=== PATIENT | female | born 1970 | race Caucasian/White ===

== ENCOUNTER 2020-11-26 17:43 | Emergency (ER) | payer MEDICAID, SELFPAY ==
[2020-11-26 18:22] VITALS: BP 155/98; PULSE 88; RESP 19; TEMP 36.7; O2SAT 98; BMI 56.9
--- NOTE | 2020-11-26 19:31 | ED_ITS ---
HPI - General Adult General Chief complaint: General Medical Stated complaint: Multiple complaints Time Seen by Provider: 11/26/20 19:31 Source: patient Mode of arrival: ambulatory Limitations: no limitations History of Present Illness HPI narrative: Patient morbidly obese diabetic complaining of left side of the chest pain arm pain neck pain going on for last few days feels sharp pain also complaining of high blood sugar feel depressed anxiety lot of stress at home comes in with multiple complaints blood sugar on arrival was 118 Related Data Previous Rx's Medication Instructions Recorded tramadol 50 mg PO Q6H PRN #20 tab 11/26/20 Allergies Allergy/AdvReac Type Severity Reaction Status Date / Time canagliflozin [From Invokana] Allergy Rash Verified 11/26/20 18:22 latex Allergy Itching Verified 11/26/20 18:22 Penicillins Allergy Rash Verified 11/26/20 18:22 sitagliptin [From Januvia] Allergy Rash Verified 11/26/20 18:22 Review of Systems Review of Systems: Constitutional : No Weight loss, No Fever, No Chills ENT/Mouth : No sore throat, No Rhinorrhea Eyes: No Eye Pain, No Swelling Cardiovascular : + Chest Pain, no palpitations Respiratory : No Cough, No Sputum, no shortness of breath Gastrointestinal : no Nausea, No Vomiting, No Diarrhea, No abdominal Pain, no black stools Genitourinary : No Dysuria, No Urinary Frequency Musculoskeletal : No joint pain, No Myalgias, No Joint Swelling Skin : No Skin Lesions, No rash Neuro : No Weakness, No Numbness, No Dizziness, No Headache Psych : No Anxiety/Panic, No Depression Heme/Lymph: No Bruising, No Lymphadenopathy Endocrine : No Polyuria, No Polydipsia All other systems reviewed and are negative [facility] Social History Social History Advance Directives: No Advance Directives Information Provided: Yes Patient : No Physical Exam Vital Signs: Vital Signs: Last Vital Signs Temp 98.0 F 11/26/20 18:22 Pulse 88 11/26/20 18:22 Resp 19 11/26/20 18:22 BP 155/98 H 11/26/20 18:22 Pulse Ox 98 11/26/20 18:22 Body Mass Index 56.9 Appearance: Alert. Oriented X3. No acute distress. Obese Eyes: PERRLA, No Nystagmus ENT: Pharynx normal. Oral Mucosa moist Neck: Normal inspection. Neck supple. CVS: Normal heart rate and rhythm. Pulses normal. Left anterior chest wall tenderness Respiratory: No respiratory distress. Equal air entry bilateral, no wheezing/rales/rhonchi Abdomen: Soft and nontender. Bowel sounds are present, no mass palpable, no CVA tenderness Skin: Skin warm and dry. Normal skin color. Normal skin turgor. Extremities: No lower extremity edema. No calf tenderness Neuro: Oriented X 3. No motor deficit. No sensory deficit.No cerebellar signs , cranial nerves II-XII intact Medical Decision Making MDM Narrative Medical decision making narrative: Patient with multiple complaints with depression anxiety sleep apnea not using CPAP came with multiple complaints with normal troponin and normal EKG no acute ischemic changes will discharge patient home on tramadol advised to continue her anxiety medication Lab Data Lab results reviewed: Yes I reviewed the patient's lab results. Result diagrams: 11/26/20 19:52 11/26/20 19:52 Labs: Lab Results 11/26/20 11/26/20 11/26/20 Range/Units 19:34 19:52 19:52 WBC 9.3 (4.8-10.8) X10*3/uL RBC 4.05 L (4.20-5.50) X10*6/uL Hgb 11.3 L (12.0-16.0) g/dl Hct 36.4 L (37-47) % MCV 89.9 (80-98) fL MCH 27.9 (27.0-33.0) pg MCHC 31.0 (31.0-35.0) g/dl RDW 15.9 (11.0-16.0) % Plt Count 244 (160-400) X10*3/uL MPV 10.8 (9.4-12.3) fL Immature Gran % (Auto) 0.2 (0.0-0.4) % Neut % (Auto) 64.5 (45-73) % Lymph % (Auto) 25.9 (20-40) % [place] % (Auto) 7.0 (2-11) % Eos % (Auto) 1.8 (0-4) % Baso % (Auto) 0.6 (0-2) % Lymph # (Auto) 2.4 (1.2-4.9) X10*3/uL [place] # (Auto) 0.7 (0.1-1.2) X10*3/uL Eos # (Auto) 0.2 (0.0-0.4) X10*3/uL Baso # (Auto) 0.1 (0.0-0.2) X10*3/uL Abs Immat Gran (auto) 0.02 (0.00-0.03) X10*3/uL Absolute Neuts (auto) 6.0 (2.0-8.3) X10*3/uL Absolute Nucleated RBC 0.000 (0.0-0.012) X10*3/uL Nucleated RBC % (auto) 0.0 (0.0-0.2) /100WBC Sodium 141 (135-145) mmol/L Potassium 4.4 (3.3-5.1) mmol/L Chloride 108 (96-108) mmol/L Carbon Dioxide 25 (22-29) mmol/L Anion Gap 12 (12-20) BUN 19 H (9-16) mg/dL Creatinine 1.26 (0.5-1.4) mg/dL Estim Creat Clear Calc 82.0 Estimated GFR 45 POC Glucose 118 H (60-115) mg/dL Random Glucose 136 H (60-115) mg/dL Calcium 8.8 (8.4-10.2) mg/dL Troponin I High Sens (<3.5-17.0) ng/L 11/26/20 Range/Units 19:52 WBC (4.8-10.8) X10*3/uL RBC (4.20-5.50) X10*6/uL Hgb (12.0-16.0) g/dl Hct (37-47) % MCV (80-98) fL MCH (27.0-33.0) pg MCHC (31.0-35.0) g/dl RDW (11.0-16.0) % Plt Count (160-400) X10*3/uL MPV (9.4-12.3) fL Immature Gran % (Auto) (0.0-0.4) % Neut % (Auto) (45-73) % Lymph % (Auto) (20-40) % [place] % (Auto) (2-11) % Eos % (Auto) (0-4) % Baso % (Auto) (0-2) % Lymph # (Auto) (1.2-4.9) X10*3/uL [place] # (Auto) (0.1-1.2) X10*3/uL Eos # (Auto) (0.0-0.4) X10*3/uL Baso # (Auto) (0.0-0.2) X10*3/uL Abs Immat Gran (auto) (0.00-0.03) X10*3/uL Absolute Neuts (auto) (2.0-8.3) X10*3/uL Absolute Nucleated RBC (0.0-0.012) X10*3/uL Nucleated RBC % (auto) (0.0-0.2) /100WBC Sodium (135-145) mmol/L Potassium (3.3-5.1) mmol/L Chloride (96-108) mmol/L Carbon Dioxide (22-29) mmol/L Anion Gap (12-20) BUN (9-16) mg/dL Creatinine (0.5-1.4) mg/dL Estim Creat Clear Calc Estimated GFR POC Glucose (60-115) mg/dL Random Glucose (60-115) mg/dL Calcium (8.4-10.2) mg/dL Troponin I High Sens < 3.5 (<3.5-17.0) ng/L ECG Data Attestation: I personally reviewed and interpreted this ECG as follows: Interpretation: Normal sinus rhythm heart rate 71 beats per minute normal intervals normal axis no acute ST ST T wave changes no acute ischemia Discharge Plan Discharge Clinical Impression: Musculoskeletal chest pain, Anxiety Patient Disposition: Home, Self-Care Instructions: Musculoskeletal Pain (ED), Anxiety (ED) Additional Instructions: Follow-up with your PCP take your anxiety medication Pain medication as prescribed Follow-up with lung specialist for sleep apnea Prescriptions: New tramadol 50 mg tablet 50 mg PO Q6H PRN (Reason: pain) Qty: 20 RF: 0 Referrals: Frederick Romero MD [Physician] - 2 weeks
[2020-11-26 19:38] LABS: Glucose, Whole Blood 118 mg/dL (60-115)
--- NOTE | 2020-11-26 19:38 | ECG_ITS ---
Test Reason : LEG PAIN Blood Pressure : / mmHG Vent. Rate : 071 BPM Atrial Rate : 071 BPM P-R Int : 158 ms QRS Dur : 086 ms QT Int : 418 ms P-R-T Axes : 044 010 020 degrees QTc Int : 454 ms Normal sinus rhythm Normal ECG When compared with ECG of 08-JAN-2003 09:28, Nonspecific T wave abnormality no longer evident in Lateral leads Referred By: Timbo Brown Electronically Signed By:Jamal Victoria
[2020-11-26 19:58] LABS: Basophils Absolute Auto 0.1 X10*3/uL (0.0-0.2); Basophils Percent Auto 0.6 % (0-2); Eosinophils Absolute Auto 0.2 X10*3/uL (0.0-0.4); Eosinophils Percent Auto 1.8 % (0-4); Hematocrit 36.4 % (37-47); Hemoglobin 11.3 g/dl (12.0-16.0); Imm Gran Abs Auto 0.02 X10*3/uL (0.00-0.03); Imm Gran Pct Auto 0.2 % (0.0-0.4); Lymphocytes Absolute Auto 2.4 X10*3/uL (1.2-4.9); Lymphocytes Percent Auto 25.9 % (20-40); MANUAL DIFF FLAG NO; Mean Corpuscular Hemoglobin 27.9 pg (27.0-33.0); Mean Corpuscular Volume 89.9 fL (80-98); Mean Platelet Volume 10.8 fL (9.4-12.3); Monocytes Absolute Auto 0.7 X10*3/uL (0.1-1.2); Neutrophils Percent Auto 64.5 % (45-73); Platelet Count 244 X10*3/uL (160-400); Red Blood Count 4.05 X10*6/uL (4.20-5.50); Red Cell Distribution Width 15.9 % (11.0-16.0); White Blood Count 9.3 X10*3/uL (4.8-10.8)
[2020-11-26 20:24] LABS: Anion Gap 12 (12-20); Blood Urea Nitrogen 19 mg/dL (9-16); Calcium 8.8 mg/dL (8.4-10.2); Carbon Dioxide 25 mmol/L (22-29); Chloride 108 mmol/L (96-108); Estimated Glomerular Filt Rate 45; Glucose Random 136 mg/dL (60-115); Potassium 4.4 mmol/L (3.3-5.1); Sodium 141 mmol/L (135-145)
[2020-11-26 20:31] LABS: Troponin-I High Sensitivity < 3.5 ng/L (<3.5-17.0)
[2020-11-26] MEDS: traMADoL HCL 50 MG TABLET PO (20:50)
[2020-11-27 07:54] LABS: Estimated Average Glucose 260 mg/dL; Hemoglobin A1c % 10.7 %
== END 2020-11-26 21:00 | disposition home or self-care (01) ==
PROVIDERS: Emergency Provider Internal Medicine; PCP Nurse Practitioner Family
DX: R07.9 Chest pain, unspecified (principal); F41.9 Anxiety disorder, unspecified; E11.9 Type 2 diabetes mellitus without complications; F32.9 Major depressive disorder, single episode, unspecified; E66.01 Morbid (severe) obesity due to excess calories
CPT/HCPCS: 36415; 80048; 82947; 83036; 84484; 85025; 93005; 99283

== ENCOUNTER 2021-08-13 15:05 | Inpatient (IN) | payer MEDICAID, SELFPAY ==
--- NOTE | ~2021-08-13 | FL_ITS ---
EXAMINATION: XR FLUOROSCOPY WITH IMAGES CLINICAL INFORMATION: Stent. COMPARISON: Previous CT of the abdomen and pelvis 08/13/2021. TECHNIQUE: Fluoroscopy performed by Dr. Mihai Reed. Fluoroscopy time: 1.8 minutes DAP: 0.8 mGycm2 Images: 1 FINDINGS: Single image demonstrates the proximal end of a right internal ureteral stent. FL/FL guidance in OR IMPRESSION: Fluoroscopy guidance for right stent placement.
--- NOTE | ~2021-08-13 | CT_ITS ---
EXAMINATION: CT ABDOMEN AND PELVIS WITH CONTRAST CLINICAL INFORMATION: Right upper quadrant pain. COMPARISON: CT abdomen/pelvis dated from 09/03/2006. TECHNIQUE: Multidetector volumetric images were obtained from the superior aspect of the liver through the pubic symphysis following administration 90 mL of Omnipaque 350 intravenous contrast. Sagittal and coronal reformatted images were obtained on the technologist's workstation. Oral contrast: No This CT examination was performed using dose optimization techniques as appropriate, variously including the following: *Automated exposure control *Adjustment of mA and/or kV according to patient size (this includes techniques or standardized protocols for targeted exams where dose is matched to indication/reason for exam; i.e. extremities or head) *Use of iterative reconstruction technique DLP: 1368 mGy-cm FINDINGS: LUNG BASES: No focal consolidation or pleural effusion. Subsegmental atelectases. LIVER, GALLBLADDER, AND BILIARY TREE: The liver is enlarged measuring 22 cm craniocaudally with otherwise normal shape and attenuation. No discrete focal abnormalities. There is new severe dilatation of the common bile duct which measures up to 2.2 cm in maximum diameter. No discrete choledocholithiasis is identified. There is also new moderate intrahepatic biliary ductal dilatation. The gallbladder is hydropic with small stones layering dependently but no evidence of gallbladder wall thickening or pericholecystic inflammatory changes. PANCREAS: Atrophic. The main pancreatic duct is nondilated. No surrounding inflammatory changes. SPLEEN: Unremarkable. ADRENAL GLANDS: Unremarkable. KIDNEYS AND URETERS: There is new severe right hydroureteronephrosis with air-fluid levels and gas in the right pelvicalyceal system. The nephrogram of the right kidney is slightly heterogeneous. There is a 3.4 cm water density cyst in the upper pole of the right kidney. The left kidney is normal in attenuation without discrete focal abnormalities nor hydroureteronephrosis. There is bilateral perinephric fat stranding. BLADDER: There is a focus of air in the anterior aspect of the urinary bladder. No significant perivesical fat stranding. GASTROINTESTINAL TRACT: The stomach and the small bowel are nondilated. Normal appendix. No pericolic inflammatory changes or evidence of bowel obstruction. ABDOMINAL WALL: Anterior abdominal rectus muscle diastases. No significant hernia. LYMPH NODES: Enlarged peripancreatic and retroperitoneal lymph nodes are nonspecific and likely reactive. VASCULAR: Atherosclerotic disease. The abdominal aorta is normal in diameter. PELVIC VISCERA: There is a 2.5 x 1.9 cm partially calcified lesion in the left adnexa (3:77). OSSEOUS STRUCTURES: No acute or aggressive appearing osseous abnormalities. Thoracolumbar spondylosis. 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 There is also mild heterogeneity of the right renal parenchyma, bilateral perinephric fat stranding and air in the urinary bladder. Findings are concerning for an acute gas-forming bacterial infection. New severe dilatation of the common bile duct and moderate dilatation of the intrahepatic bile ducts. No definite choledocholithiasis. This could potentially be reactive in the setting of adjacent severe renal infection. However, correlation with an MR of the abdomen/MRCP is recommended to ensure the absence of obstructive lesions or stones. Nonspecific calcified lesion in the left adnexa. Further characterization could be obtained with an MR of the pelvis with and without intravenous contrast. This critical result was discussed with Chino FLORES at 08/13/2021 7:16 PM and it was ascertained that the content and urgency of the report was understood at the time of direct communication.
--- NOTE | ~2021-08-13 | XR_ITS ---
EXAMINATION: CHEST 2 VIEWS CLINICAL INFORMATION: upper abd pain/back pain . COMPARISON: 08/24/2008. TECHNIQUE: AP frontal and lateral views of the chest obtained FINDINGS: The lungs are mildly hypoexpanded. No focal infiltrate, effusion, edema, or pneumothorax. Cardiac and mediastinal silhouettes are within normal limits for technique. No acute bony abnormality seen XR/XR chest 2V IMPRESSION: Mildly hypoexpanded but no evidence of acute disease
--- NOTE | ~2021-08-13 | NM_ITS ---
EXAMINATION: HIDA SCAN WITHOUT ENSURE. CLINICAL INFORMATION: Elevated LFTs, dilated CBD is CT scan. Rule out biliary obstruction. COMPARISON: CT abdomen and pelvis 08/13/2021 TECHNIQUE: Following intravenous administration of 5 mCi of 99m Tc mebrofenin imaging was obtained up in the right upper quadrant abdominal 2 hours. FINDINGS: There is normal hepatic uptake without any focal defect. CBD is visualized by 27 minutes. The gallbladder is visualized by 57 minutes and persist after 2 hours. No oral ensure was administered due to significantly reduced activity in the gallbladder. NM/NM hepatobiliary wo pharm IMPRESSION: Patency cystic duct. Patent CBD. Normal hepatic uptake without any focal defects.
[2021-08-13 15:12] VITALS: BP 152/62; PULSE 60; O2SAT 98
[2021-08-13 15:39] VITALS: BP 188/89; PULSE 67; RESP 19; TEMP 36.6; O2SAT 99; BMI 50.1
--- NOTE | 2021-08-13 15:44 | ECG_ITS ---
Test Reason : ABD PAIN Blood Pressure : / mmHG Vent. Rate : 058 BPM Atrial Rate : 058 BPM P-R Int : 156 ms QRS Dur : 096 ms QT Int : 466 ms P-R-T Axes : 022 -08 005 degrees QTc Int : 457 ms Sinus bradycardia Moderate voltage criteria for LVH, may be normal variant ( R in aVL , [place] product ) Borderline ECG When compared with ECG of 26-NOV-2020 20:29, No significant change was found Referred By: Generic ED Physician Electronically Signed By:CHU DIXON MD
[2021-08-13 16:03] LABS: MANUAL DIFF FLAG NO
[2021-08-13 16:16] LABS: Basophils Absolute Auto 0.1 X10*3/uL (0.0-0.2); Basophils Percent Auto 0.2 % (0-2); Hematocrit 35.7 % (37.0-47.0); Hemoglobin 11.5 g/dl (12.0-16.0); Imm Gran Abs Auto 0.17 X10*3/uL (0.00-0.03); Imm Gran Pct Auto 0.6 % (0.0-0.4); Lymphocytes Absolute Auto 0.5 X10*3/uL (1.2-4.9); Lymphocytes Percent Auto 1.7 % (20-40); Mean Corpuscular HGB Conc 32.2 g/dl (31.0-35.0); Mean Corpuscular Volume 89.9 fL (80.0-98.0); Mean Platelet Volume 11.5 fL (9.4-12.3); Monocytes Absolute Auto 1.4 X10*3/uL (0.1-1.2); Monocytes Percent Auto 5.2 % (2-11); Neutrophils Absolute Auto 25.5 x10*3/uL (2.0-8.3); Neutrophils Percent Auto 92.3 % (45-73); Platelet Count 236 X10*3/uL (160-400); Red Blood Count 3.97 X10*6/uL (4.20-5.50); Red Cell Distribution Width 14.8 % (11.0-16.0); SCAN SMEAR FLAG 1; White Blood Count 27.6 X10*3/uL (4.8-10.8)
[2021-08-13 16:29] LABS: Alanine Aminotransferase 73 U/L (0-31); Alkaline Phosphatase 929 U/L (39-117); Anion Gap 15 (12-20); Aspartate Amino Transferase 95 U/L (5-31); Blood Urea Nitrogen 17 mg/dL (9-16); Calcium 8.9 mg/dL (8.4-10.2); Carbon Dioxide 24 mmol/L (22-29); Chloride 98 mmol/L (96-108); Creatinine Clr Calc Pharmacy 91.5; Estimated Glomerular Filt Rate 57; Glucose Random 337 mg/dL (60-115); Lipase 257 U/L (8-78); Potassium 3.8 mmol/L (3.3-5.1); Sodium 133 mmol/L (135-145); Total Protein 8.2 g/dL (6.5-8.0)
[2021-08-13 16:34] LABS: Troponin-I High Sensitivity < 3.5 ng/L (<3.5-17.0)
--- NOTE | 2021-08-13 18:10 | ED_ITS ---
HPI - General Adult General Chief complaint: General Medical Stated complaint: ABD PAIN Time Seen by Provider: 08/13/21 17:58 Source: patient Mode of arrival: ambulatory Limitations: no limitations History of Present Illness HPI narrative: 51-year-old female female with past medical history of diabetes, obesity, and gallstones presents to ED for right upper quadrant pain for the past 2 days with nausea and vomiting. Patient states pain came upon her without eating any fatty foods or greasy food as per patient. Patient was diagnosed with gallstones in March by that time blood work was normal so she states no surgery is indicated at that time. He denies any chest pain, flank pain, or shortness of breath. Related Data Home Medications Medication Instructions Recorded Confirmed albuterol sulfate 90 mcg/actuation 2 puff PO Q4H PRN 08/13/21 08/13/21 aerosol inhaler (ProAir HFA) aspirin 81 mg tablet,delayed 1 tab PO DAILY 08/13/21 08/13/21 release atorvastatin 80 mg tablet 1 tab PO BEDTIME 08/13/21 08/13/21 buprenorphine 8 mg-naloxone 2 mg 1 strip SUBLINGUAL TID 08/13/21 08/13/21 sublingual film (Suboxone) clonazepam 0.5 mg tablet 1.5 tab PO DAILY PRN 08/13/21 08/13/21 fluoxetine 20 mg capsule 3 cap PO QAM 08/13/21 08/13/21 gabapentin 600 mg tablet 1 tab PO TID 08/13/21 08/13/21 ibuprofen 800 mg tablet 1 tab PO TID PRN 08/13/21 08/13/21 insulin glargine 100 unit/mL (3 54 unit SUBCUT BID 08/13/21 08/13/21 mL) subcutaneous pen (Lantus Solostar U-100 Insulin) insulin lispro 100 unit/mL 15 unit SUBCUT DAILY@1200 08/13/21 08/13/21 subcutaneous pen (Humalog KwikPen (U-100) Insulin) insulin lispro 100 unit/mL 20 unit SUBCUT DAILY@0900,1700 08/13/21 08/13/21 subcutaneous pen (Humalog KwikPen (U-100) Insulin) levothyroxine 200 mcg tablet 1 tab PO DAILY 08/13/21 08/13/21 lisinopril 20 1 tab PO DAILY 08/13/21 08/13/21 mg-hydrochlorothiazide 25 mg tablet loratadine 10 mg tablet 1 tab PO DAILY 08/13/21 08/13/21 omeprazole 20 mg capsule,delayed 1 cap PO BID 08/13/21 08/13/21 release trazodone 100 mg tablet 1 - 3 tab PO BEDTIME PRN 08/13/21 08/13/21 Allergies Allergy/AdvReac Type Severity Reaction Status Date / Time canagliflozin [From Invokana] Allergy Rash Verified 11/26/20 18:22 latex Allergy Itching Verified 11/26/20 18:22 Penicillins Allergy Rash Verified 11/26/20 18:22 sitagliptin [From Januvia] Allergy Rash Verified 11/26/20 18:22 Review of Systems Review of Systems: RUQ pain with nausea and emesis Yes all other systems are reviewed and are negative [facility] Past Medical History Medical History (Updated 08/14/21 @ 01:31 by SANDRA Chung) Diabetes type I High cholesterol HTN (hypertension) Kidney stones Social History Social History Alcohol intake: former Patient Tobacco Use Status: Current everyday Tobacco user Smoked in Last 30 Days: Yes Use of substances other than those prescribed or required for medical reasons: No Advance Directives: No Advance Directives Information Provided: No Physical Exam ED Vital Signs: Vital Signs - 24 hr 08/13/21 15:39 08/13/21 19:14 08/13/21 20:00 Temperature 98 F 97.6 F 97.8 F Pulse Rate 67 69 54 Respiratory Rate 19 18 18 Blood Pressure 188/89 H 182/101 H 169/74 H Pulse Oximetry 99 98 93 08/13/21 21:31 Temperature Pulse Rate 58 Respiratory Rate 16 Blood Pressure 171/90 H Pulse Oximetry 94 BMI result Body Mass Index 50.1 Const General: cooperative, healthy appearing, well developed, alert, awake, Physically active and acute distress Orientation/consciousness: patient oriented x3 Eyes General: appearance normal, both eyes and all related structures Neck Neck: Yes normal visual inspection, Yes full ROM, Yes no lymphadenopathy, Yes no meningeal signs, Yes trachea midline, Yes supple, No anterior neck swelling and No tender Chest Chest palpation & inspection: normal inspection of the chest Resp Effort & Inspection: normal respiratory effort and able to speak in complete sentences Cardio Jugular venous distension: no JVD Heart sounds: S1 normal heart sound present and S2 normal heart sound present GI Inspection: Yes normal to inspection and No abdominal wall ecchymosis Palpation (GI): Soft to palpation, not firm, Tenderness to palpation present (GI) in the epigastrum and in the RUQ, no guarding and not rigid General: No CVA tenderness and Yes no CVA tenderness Back/Spine/Pelvis Back: no CVA tenderness, No CVA tenderness and No back tenderness Skin General skin exam: no rashes or lesions noted and elasticity normal Neuro General: patient oriented x3, gait normal, no meningeal signs and CN's II-XI intact bilaterally Cranial nerves: Yes CN's II-XII intact bilaterally Extrem General: Yes normal to inspection and Yes full ROM Psych Appearance: grossly normal, well kempt and not disheveled Course Course Course Narrative: Labs ordered. Ceftriaxone and metronidazole ordered Reevaluation(s) Reevaluation #1: White count 24524. Elevated LFT. Severe tenderness and vomiting. Will order Toradol, antibiotics, abdominal CT scan to rule out cholecystitis. Patient is on Suboxone so not prefer not to take any narcotics. Time: 18:29 Reevaluation #2: CT scan shows gas in kidney and bladder indicated kidney bacterial infection. CT scan shows CBD dilation and intrahepatic duct dilation with distended gallbladder but no cholecystitis. Case was discussed with Dr. Reed of Urology and states patient presently should get IV antibiotics and [place] and if patient becomes septic then patient will need a stent. Discussed with Dr. Ralph of Gastroenterology in terms of common bile duct dilation and she recommends patient be admitted for MRCP. Patient vital signs are stable. Patient is not septic Medical Decision Making MDM Narrative Medical decision making narrative: Common bowel duct dilation. UTI. Pyelonephritis Lab Data Result diagrams: 08/13/21 15:50 08/13/21 15:50 Labs: Lab Results 08/13/21 08/13/21 08/13/21 Range/Units 15:50 15:50 15:50 WBC 27.6 H (4.8-10.8) X10*3/uL RBC 3.97 L (4.20-5.50) X10*6/uL Hgb 11.5 L (12.0-16.0) g/dl Hct 35.7 L (37.0-47.0) % MCV 89.9 (80.0-98.0) fL MCH 29.0 (27.0-33.0) pg MCHC 32.2 (31.0-35.0) g/dl RDW 14.8 (11.0-16.0) % Plt Count 236 (160-400) X10*3/uL MPV 11.5 (9.4-12.3) fL Immature Gran % (Auto) 0.6 H (0.0-0.4) % Neut % (Auto) 92.3 H (45-73) % Lymph % (Auto) 1.7 L (20-40) % [place] % (Auto) 5.2 (2-11) % Eos % (Auto) 0.0 (0-4) % Baso % (Auto) 0.2 (0-2) % Lymph # (Auto) 0.5 L (1.2-4.9) X10*3/uL [place] # (Auto) 1.4 H (0.1-1.2) X10*3/uL Eos # (Auto) 0.0 (0.0-0.4) X10*3/uL Baso # (Auto) 0.1 (0.0-0.2) X10*3/uL Abs Immat Gran (auto) 0.17 H (0.00-0.03) X10*3/uL Absolute Neuts (auto) 25.5 H (2.0-8.3) x10*3/uL Absolute Nucleated RBC 0.000 (0.0-0.012) X10*3/uL Nucleated RBC % (auto) 0.0 (0.0-0.2) /100WBC Sodium 133 L (135-145) mmol/L Potassium 3.8 (3.3-5.1) mmol/L Chloride 98 (96-108) mmol/L Carbon Dioxide 24 (22-29) mmol/L Anion Gap 15 (12-20) BUN 17 H (9-16) mg/dL Creatinine 1.03 (0.5-1.4) mg/dL Estim Creat Clear Calc 91.5 Estimated GFR 57 Random Glucose 337 H (60-115) mg/dL Lactic Acid (0.5-2.0) mmol/L Calcium 8.9 (8.4-10.2) mg/dL Total Bilirubin 4.0 H (0.0-1.0) mg/dL Direct Bilirubin 3.0 H (0.0-0.5) mg/dL AST 95 H (5-31) U/L ALT 73 H (0-31) U/L Alkaline Phosphatase 929 H (39-117) U/L Troponin I High Sens < 3.5 (<3.5-17.0) ng/L Total Protein 8.2 H (6.5-8.0) g/dL Albumin 3.0 L (3.5-5.0) g/dL Lipase 257 H (8-78) U/L Beta HCG, Quant < 2 mIU/mL Urine Color Urine Appearance Urine pH (5.0-8.0) Ur Specific [place] (1.005-1.025) Urine Protein (NEG-TRACE) MG/DL Urine Glucose (UA) (NEG) MG/DL Urine Ketones (NEG) MG/DL Urine Blood (NEG) Urine Nitrite (NEG) Ur Leukocyte Esterase (NEG) Urine RBC (0) /HPF Urine WBC (0-4) /HPF Urine WBC Clumps Ur Squamous Epith Cells /LPF Urine Bacteria /LPF Urine Mucus /LPF COVID-19 ([facility]) (Negative) COVID-19 Clin Com 08/13/21 08/13/21 08/13/21 Range/Units 18:19 18:19 21:34 WBC (4.8-10.8) X10*3/uL RBC (4.20-5.50) X10*6/uL Hgb (12.0-16.0) g/dl Hct (37.0-47.0) % MCV (80.0-98.0) fL MCH (27.0-33.0) pg MCHC (31.0-35.0) g/dl RDW (11.0-16.0) % Plt Count (160-400) X10*3/uL MPV (9.4-12.3) fL Immature Gran % (Auto) (0.0-0.4) % Neut % (Auto) (45-73) % Lymph % (Auto) (20-40) % [place] % (Auto) (2-11) % Eos % (Auto) (0-4) % Baso % (Auto) (0-2) % Lymph # (Auto) (1.2-4.9) X10*3/uL [place] # (Auto) (0.1-1.2) X10*3/uL Eos # (Auto) (0.0-0.4) X10*3/uL Baso # (Auto) (0.0-0.2) X10*3/uL Abs Immat Gran (auto) (0.00-0.03) X10*3/uL Absolute Neuts (auto) (2.0-8.3) x10*3/uL Absolute Nucleated RBC (0.0-0.012) X10*3/uL Nucleated RBC % (auto) (0.0-0.2) /100WBC Sodium (135-145) mmol/L Potassium (3.3-5.1) mmol/L Chloride (96-108) mmol/L Carbon Dioxide (22-29) mmol/L Anion Gap (12-20) BUN (9-16) mg/dL Creatinine (0.5-1.4) mg/dL Estim Creat Clear Calc Estimated GFR Random Glucose (60-115) mg/dL Lactic Acid 1.3 (0.5-2.0) mmol/L Calcium (8.4-10.2) mg/dL Total Bilirubin (0.0-1.0) mg/dL Direct Bilirubin (0.0-0.5) mg/dL AST (5-31) U/L ALT (0-31) U/L Alkaline Phosphatase (39-117) U/L Troponin I High Sens (<3.5-17.0) ng/L Total Protein (6.5-8.0) g/dL Albumin (3.5-5.0) g/dL Lipase (8-78) U/L Beta HCG, Quant mIU/mL Urine Color DK YELLOW Urine Appearance HAZY Urine pH 7.0 (5.0-8.0) Ur Specific [place] 1.020 (1.005-1.025) Urine Protein 3+ H (NEG-TRACE) MG/DL Urine Glucose (UA) 250 H (NEG) MG/DL Urine Ketones NEG (NEG) MG/DL Urine Blood 3+ H (NEG) Urine Nitrite NEG (NEG) Ur Leukocyte Esterase TRACE H (NEG) Urine RBC 30-49 H (0) /HPF Urine WBC 50-75 H (0-4) /HPF Urine WBC Clumps NOTED Ur Squamous Epith Cells NONE /LPF Urine Bacteria 3+ /LPF Urine Mucus TRACE /LPF COVID-19 ([facility]) Negative (Negative) COVID-19 Clin Com See Note Discharge Plan Discharge Clinical Impression: Pyelonephritis, Common bile duct dilatation Patient Disposition: Admitted As Inpatient
[2021-08-13] MEDS: 0.9 % Sodium Chloride 1,000 ML 999 ML IV (18:22)
--- NOTE | 2021-08-13 18:34 | PC.NURSE ---
iv inserted, 1st set of bc drawn, vl obtained, pt to radiology, will obtain rest of blood when she returns
[2021-08-13 18:40] LABS: Lactic Acid 1.3 mmol/L (0.5-2.0)
[2021-08-13 18:43] LABS: COVID-19 Test Negative (Negative)
[2021-08-13] MEDS: iohexoL 350 MG/ML 100 ML INFUS..BTL IV (18:43)
[2021-08-13 18:53] LABS: HCG Quantitative < 2 mIU/mL
--- NOTE | 2021-08-13 19:08 | PHA.MEDREC ---
Pharmacy Consult ? Medication Reconciliation Pharmacy has completed the medication reconciliation.
--- NOTE | 2021-08-13 19:11 | PC.NURSE ---
pt dificult stick, attempting to get second set of blood cultures
[2021-08-13 19:14] VITALS: BP 182/101; PULSE 69; RESP 18; TEMP 36.4; O2SAT 98
--- NOTE | 2021-08-13 19:21 | PC.NURSE ---
phlebotomy called to obtain second set of bc
[2021-08-13] MEDS: Ketorolac Tromethamine 30 MG/ML VIAL IVPUSH (19:23)
[2021-08-13] MEDS: ondansetron HCL 4 MG/2 ML VIAL IVPUSH (19:24)
[2021-08-13] MEDS: cefTRIAXone sodium 2 GM in 0.9 % Sodium Chloride 50 ML IV (19:51)
--- NOTE | 2021-08-13 19:54 | PC.NURSE ---
second set of bc obtained, sent to lab, first iv antibiotics hung, pt ivf running slowly, will continue to monitor.l
[2021-08-13 20:00] VITALS: BP 169/74; PULSE 54; RESP 18; TEMP 36.6; O2SAT 93
[2021-08-13] MEDS: metroNIDAZOLE/NS 500 MG/100 ML PIGGYBACK 100 MG IV (20:48)
--- NOTE | 2021-08-13 20:52 | PC.NURSE ---
pt sleeping, woke to verbal stimulus, pt c/o 8/10 pain, vitals stable, second antibiotic running per order, will insert parsons as ordered
--- NOTE | 2021-08-13 20:55 | PC.NURSE ---
spoke diana Gtz (son) to update him on the plan for pt - discharge to [facility], son confirmed increased evening confusions as baseline for pt.
--- NOTE | 2021-08-13 21:30 | PC.NURSE ---
parsons catheter placed, pt tolerated placement well. urine sample collected and sent to the lab.
[2021-08-13 21:31] VITALS: BP 171/90; PULSE 58; RESP 16; O2SAT 94
[2021-08-13 21:43] LABS: Appearance Urine HAZY; Color Urine DK YELLOW; Glucose Urine UA 250 MG/DL (NEG); Leukocyte Esterase Urine TRACE (NEG); Nitrite Urine NEG (NEG); UACC Culture Trigger YES; Urine Blood 3+ (NEG); Urine Ketones NEG (NEG); Urine Protein 3+ MG/DL (NEG-TRACE)
--- NOTE | 2021-08-13 21:51 | PM.IMHP ---
History of Present Illness Date of Service: 08/13/21 Chief Complaint: abd pain this is 51-year-old female with past medical history of diabetes, hyperlipidemia, hypertension, history of kidney stones, as well as obesity presents to the hospital with complaints of abdominal pain for the past 2 days. Patient reports the abdominal pain is epigastric, radiating to the right upper quadrant, constant, severe 10/10, relieved with pain medication, associated with nausea and chills. Patient denies any previous episode. She poor reports burning sensation when she eats any type of food. She is also complaining of burning on urination as well as frequency for the past 2 days. She denies any fever or chills but has flank pain bilaterally. She has no chest pain, no palpitations, no shortness of breath, no headache or change in vision, no lower extremity edema. No diarrhea or constipation. On arrival to the ED patient was found to have elevated blood pressure of 188/89 otherwise Vitals unremarkable labs are significant for WBC count of 27.6, hemoglobin of 11.5, hematocrit 35.7 which is around her baseline, BUN of 17, bilirubin of 4, direct 3, AST of 95, ALT of 73, alk-phos of 929, lipase of 257, UA positive for nitrites, leukocyte Estrace, WBC. 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 Mild heterogeneous CT of right renal parenchyma, bilateral perinephric fat stranding and air in the urinary bladder. This is concerning for an acute gas-forming bacterial infection. She also has new severe dilatation of the common bile duct and moderate dilatation of the intrahepatic bile duct. No definite choledocholithiasis. patient and started on IV antibiotics, urology and GI both consulted she will be admitted for further management Review of Systems Review of Systems: Yes all other systems are reviewed and are negative [facility] Medical History (Updated 08/14/21 @ 06:44 by Xiomy Angulo MD) Diabetes type I High cholesterol HTN (hypertension) Kidney stones Family History (Updated 08/14/21 @ 06:41 by Xiomy Angulo MD) Mother Coronary artery disease Diabetes Surgical History (Updated 08/14/21 @ 06:41 by Xiomy Angulo MD) No pertinent past surgical history Social History Alcohol intake: former Patient Tobacco Use Status: Current everyday Tobacco user Smoked in Last 30 Days: Yes Use of substances other than those prescribed or required for medical reasons: No Advance Directives: No Advance Directives Information Provided: No Meds Allergies Allergy/AdvReac Type Severity Reaction Status Date / Time canagliflozin [From Invokana] Allergy Rash Verified 11/26/20 18:22 latex Allergy Itching Verified 11/26/20 18:22 Penicillins Allergy Rash Verified 11/26/20 18:22 sitagliptin [From Januvia] Allergy Rash Verified 11/26/20 18:22 Active Medications: Current Medications Acetaminophen (Acetaminophen 325 Mg Tablet) 650 mg PO Q6H PRN PRN Reason: Pain, Mild (Pain Scale 1-3) Metronidazole (Flagyl) 500 mg in 100 mls @ 100 mls/hr IV Q8H [place]LL Sodium Chloride (Ns) 1,000 mls @ 100 mls/hr IVCONT .Q10H [place] Cefepime HCl 1 gm/ Sodium (Chloride) 50 mls @ 100 mls/hr IV Q8H [place] Morphine Sulfate (Morphine Sulfate 4 Mg/Ml Cartridge) 4 mg IVPUSH Q4H PRN; Protocol PRN Reason: Pain, Severe (Pain Scale 7-10) Ondansetron HCl (Ondansetron Hcl 4 Mg/2 Ml Vial) 4 mg IVPUSH Q8H PRN PRN Reason: Nausea and Vomiting Pharmacy Consult (Consult Rx Perform Med Rec) 1 each MISCELLANE ONCE PRN PRN Reason: Consult order Home Medications Medication Instructions Recorded Confirmed Last Taken Type albuterol sulfate 90 mcg/actuation 2 puff PO Q4H PRN 08/13/21 08/13/21 08/12/21 History aerosol inhaler (ProAir HFA) aspirin 81 mg tablet,delayed 1 tab PO DAILY 08/13/21 08/13/21 08/12/21 History release atorvastatin 80 mg tablet 1 tab PO BEDTIME 08/13/21 08/13/21 08/12/21 History buprenorphine 8 mg-naloxone 2 mg 1 strip SUBLINGUAL TID 08/13/21 08/13/21 08/13/21 History sublingual film (Suboxone) clonazepam 0.5 mg tablet 1.5 tab PO DAILY PRN 08/13/21 08/13/21 08/12/21 History fluoxetine 20 mg capsule 3 cap PO QAM 08/13/21 08/13/21 08/12/21 History gabapentin 600 mg tablet 1 tab PO TID 08/13/21 08/13/21 08/12/21 History ibuprofen 800 mg tablet 1 tab PO TID PRN 08/13/21 08/13/21 08/12/21 History insulin glargine 100 unit/mL (3 54 unit SUBCUT BID 08/13/21 08/13/21 08/12/21 History mL) subcutaneous pen (Lantus Solostar U-100 Insulin) insulin lispro 100 unit/mL 15 unit SUBCUT DAILY@1200 08/13/21 08/13/21 08/12/21 History subcutaneous pen (Humalog KwikPen (U-100) Insulin) insulin lispro 100 unit/mL 20 unit SUBCUT DAILY@0900,1700 08/13/21 08/13/21 08/12/21 History subcutaneous pen (Humalog KwikPen (U-100) Insulin) levothyroxine 200 mcg tablet 1 tab PO DAILY 08/13/21 08/13/21 08/12/21 History lisinopril 20 1 tab PO DAILY 08/13/21 08/13/21 08/12/21 History mg-hydrochlorothiazide 25 mg tablet loratadine 10 mg tablet 1 tab PO DAILY 08/13/21 08/13/21 Unknown History omeprazole 20 mg capsule,delayed 1 cap PO BID 08/13/21 08/13/21 08/12/21 History release trazodone 100 mg tablet 1 - 3 tab PO BEDTIME PRN 08/13/21 08/13/21 08/12/21 History Physical Exam Vital Signs and Narrative: Vital Signs: Last Vital Signs Temp 97.8 F 08/13/21 20:00 Pulse 58 08/13/21 21:31 Resp 16 08/13/21 21:31 BP 171/90 H 08/13/21 21:31 Pulse Ox 94 08/13/21 21:31 BMI result Body Mass Index 50.1 Const: Other: obese patient, ill appearing General: cooperative Orientation/consciousness: patient oriented x3 Eyes: General: appearance normal, both eyes and all related structures Pupils: Equal, round and reactive pupils present Resp: Effort & Inspection: normal respiratory effort Auscultation: clear to auscultation bilaterally Cardio: Rate: regular rate Rhythm: regular rhythm GI: Other: tenderness and there epigastric and right upper quadrant , there is guarding but no rebound Palpation (GI): Soft to palpation Auscultation: normal bowel sounds : Other: bilateral CVA tenderness Skin: General skin exam: no rashes or lesions noted Neuro: General: patient oriented x3 Cranial nerves: Yes Equal, round and reactive pupils present Cognition (Neuro): normal cognition Extrem: General: Yes normal to inspection and Yes no pedal edema Results Labs CBC and Chem 7: 08/13/21 15:50 08/13/21 15:50 Labs: Laboratory Results - last 24 hr 08/13/21 08/13/21 08/13/21 15:50 15:50 18:19 MCV 89.9 MCH 29.0 MCHC 32.2 RDW 14.8 Plt Count 236 MPV 11.5 Immature Gran % (Auto) 0.6 H Neut % (Auto) 92.3 H Lymph % (Auto) 1.7 L [place] % (Auto) 5.2 Eos % (Auto) 0.0 Baso % (Auto) 0.2 Lymph # (Auto) 0.5 L [place] # (Auto) 1.4 H Eos # (Auto) 0.0 Baso # (Auto) 0.1 Abs Immat Gran (auto) 0.17 H Absolute Neuts (auto) 25.5 H Absolute Nucleated RBC 0.000 Nucleated RBC % (auto) 0.0 Anion Gap 15 Estim Creat Clear Calc 91.5 Estimated GFR 57 Random Glucose 337 H Lactic Acid 1.3 Calcium 8.9 Total Bilirubin 4.0 H Direct Bilirubin 3.0 H AST 95 H ALT 73 H Alkaline Phosphatase 929 H Total Protein 8.2 H Albumin 3.0 L Lipase 257 H Beta HCG, Quant < 2 Urine Color Urine Appearance Urine pH Ur Specific [place] Urine Protein Urine Glucose (UA) Urine Ketones Urine Blood Urine Nitrite Ur Leukocyte Esterase COVID-19 ([facility]) COVID-19 Clin Com 08/13/21 08/13/21 18:19 21:34 MCV MCH MCHC RDW Plt Count MPV Immature Gran % (Auto) Neut % (Auto) Lymph % (Auto) [place] % (Auto) Eos % (Auto) Baso % (Auto) Lymph # (Auto) [place] # (Auto) Eos # (Auto) Baso # (Auto) Abs Immat Gran (auto) Absolute Neuts (auto) Absolute Nucleated RBC Nucleated RBC % (auto) Anion Gap Estim Creat Clear Calc Estimated GFR Random Glucose Lactic Acid Calcium Total Bilirubin Direct Bilirubin AST ALT Alkaline Phosphatase Total Protein Albumin Lipase Beta HCG, Quant Urine Color DK YELLOW Urine Appearance HAZY Urine pH 7.0 Ur Specific [place] 1.020 Urine Protein 3+ H Urine Glucose (UA) 250 H Urine Ketones NEG Urine Blood 3+ H Urine Nitrite NEG Ur Leukocyte Esterase TRACE H COVID-19 ([facility]) Negative COVID-19 Clin Com See Note Imaging Radiologist's Impressions: Impressions Chest X-Ray 08/13/21 16:24 IMPRESSION: Mildly hypoexpanded but no evidence of acute disease Abdomen/Pelvis CT 08/13/21 18:45 IMPRESSION: 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 There is also mild heterogeneity of the right renal parenchyma, bilateral perinephric fat stranding and air in the urinary bladder. Findings are concerning for an acute gas-forming bacterial infection. New severe dilatation of the common bile duct and moderate dilatation of the intrahepatic bile ducts. No definite choledocholithiasis. This could potentially be reactive in the setting of adjacent severe renal infection. However, correlation with an MR of the abdomen/MRCP is recommended to ensure the absence of obstructive lesions or stones. Nonspecific calcified lesion in the left adnexa. Further characterization could be obtained with an MR of the pelvis with and without intravenous contrast. This critical result was discussed with Chino FLORES at 08/13/2021 7:16 PM and it was ascertained that the content and urgency of the report was understood at the time of direct communication. Assessment and Plan (1) Pyelonephritis: Status: Acute (2) Choledocholithiasis: Status: Acute (3) Hydroureteronephrosis: Status: Acute (4) Common bile duct dilatation: Status: Acute Plan 51-year-old female with past medical history of diabetes as well as hypertension presents to the hospital with complaints of severe abdominal pain found to have cholecystitis as well as pyelonephritis # abdominal pain - likely secondary to choledocholithiasis / possible cholangitis - afebrile, but has elevated bilirubin, significantly dilated common bile as well as severe abdominal pain - treat with IV antibiotics - GI consult for MRCP in the morning # pyelonephritis - has severe pyelonephritis as evidence on CT of the abdomen - no evidence of obstructing kidney stones - will treat with IV antibiotics - urology is consulted - if patient is symptoms do not improve, urology plans for possible stent placement - will keep patient NPO # hydroureteronephrosis - secondary to above - IV fluids - urology consult # diabetes - continue home insulin continue home insulin -diabetic diet -will add low-dose sliding scale insulin # hypertension - stable - continue home medication DVT prophylaxis: SCDs in the setting of possible intervention as well as MRCP given patient's need for IV antibiotics for treatment of pyelonephritis as well as need for MRCP patient will be admitted to inpatient Quality Stroke Does the patient have a stroke diagnosis?: No VTE Prior VTE?: No VTE Risk Level:: Medical - moderate - high VTE Device Contraindication: N/A - Device Ordered VTE Drug Contraindication: Treatment Not Indicated
[2021-08-13 21:53] LABS: RBC Urine 30-49 /HPF (0); WBC Urine 50-75 /HPF (0-4)
[2021-08-13 21:54] LABS: Bacteria Urine 3+ /LPF; Mucus Urine TRACE /LPF; WBC Clumps Urine NOTED
[2021-08-13] MEDS: 0.9 % Sodium Chloride 1,000 ML 100 ML IVCONT (21:59)
[2021-08-13] MEDS: cefEPime HCl 1 GM in 0.9 % Sodium Chloride 50 ML IV (22:42)
--- NOTE | 2021-08-13 22:43 | PC.NURSE ---
pt medicated per provider order.
[2021-08-13 23:01] VITALS: BP 173/95; PULSE 64; RESP 18; RESP 20
[2021-08-13] MEDS: Morphine Sulfate 4 MG/ML CARTRIDGE IVPUSH (23:01)
--- NOTE | 2021-08-13 23:56 | PC.NURSE ---
OVERFLOW UNABLE TO TAKE REPORT AT THIS TIME. PT AWAITING FOR TRANSFER TO FLOOR.
[2021-08-14] MEDS: metroNIDAZOLE/NS 500 MG/100 ML PIGGYBACK 100 MG IV ×2 (04:11→13:59)
[2021-08-14 05:18] VITALS: BP 153/75; PULSE 75; RESP 18; TEMP 35.8; O2SAT 94
[2021-08-14] MEDS: ondansetron HCL 4 MG/2 ML VIAL IVPUSH (05:31)
[2021-08-14] MEDS: cefEPime HCl 1 GM in 0.9 % Sodium Chloride 50 ML IV (05:55)
[2021-08-14 07:02] LABS: Basophils Percent Auto 0.1 % (0-2); Hematocrit 33.8 % (37.0-47.0); Hemoglobin 10.9 g/dl (12.0-16.0); Imm Gran Abs Auto 0.19 X10*3/uL (0.00-0.03); Imm Gran Pct Auto 0.8 % (0.0-0.4); Lymphocytes Absolute Auto 0.7 X10*3/uL (1.2-4.9); Lymphocytes Percent Auto 2.9 % (20-40); MANUAL DIFF FLAG SCAN; Mean Corpuscular HGB Conc 32.2 g/dl (31.0-35.0); Mean Corpuscular Hemoglobin 28.6 pg (27.0-33.0); Mean Corpuscular Volume 88.7 fL (80.0-98.0); Mean Platelet Volume 11.5 fL (9.4-12.3); Monocytes Absolute Auto 1.3 X10*3/uL (0.1-1.2); Monocytes Percent Auto 5.2 % (2-11); Neutrophils Absolute Auto 22.5 x10*3/uL (2.0-8.3); Platelet Count 219 X10*3/uL (160-400); Red Blood Count 3.81 X10*6/uL (4.20-5.50); Red Cell Distribution Width 14.6 % (11.0-16.0); SCAN SMEAR FLAG 1; White Blood Count 24.7 X10*3/uL (4.8-10.8)
[2021-08-14 07:16] LABS: Anion Gap 13 (12-20); Blood Urea Nitrogen 20 mg/dL (9-16); Calcium 8.2 mg/dL (8.4-10.2); Carbon Dioxide 22 mmol/L (22-29); Chloride 101 mmol/L (96-108); Creatinine Clr Calc Pharmacy 94.4; Estimated Glomerular Filt Rate 59; Glucose Random 247 mg/dL (60-115); Potassium 3.4 mmol/L (3.3-5.1); Sodium 133 mmol/L (135-145)
[2021-08-14 08:04] LABS: SLIDE REVIEW VERIFIED
--- NOTE | 2021-08-14 08:44 | P.CNGI_ITS ---
History of Present Illness Data of Consult Service Date: 08/14/21 Requesting physician: Xiomy Angulo Primary Care Provider: SUGEY Esteban HPI Reason for consult: Elevated LFTs, biliary dilation 51 YF with DM, hyperlipidemia, htn, obesity, history of kidney stones came to [facility] ED on 08/13/21 with 2 day hx of abdominal pain.? Patient reports the abdominal pain is epigastric, radiating to the right upper quadrant, constant, severe 10/10, relieved with pain medication, associated with nausea and chills.? Patient denies any previous episode.? She poor reports burning sensation when she eats any type of food.? She is also complaining of burning on urination as well as frequency for the past 2 days.? She denied any fever or chills and complained of bilateral flank pain.? Pt denied chest pain, palpitations, shortness of breath, headache or change in vision, lower extremity edema, diarrhea or constipation. ? On arrival to the ED patient was found to have? elevated blood pressure of 188/89 otherwise Vitals unremarkable ?labs showed WBC count of 27.6, hemoglobin of 11.5, hematocrit 35.7 (around her baseline), BUN of 17,? bilirubin of 4, direct 3, AST of 95, ALT of 73, alk-phos of 929, lipase of 257. UA positive for nitrites, leukocyte Estrace, WBC.? ?Patient was started on IV antibiotics and admitted for further management 03/2021 pt was seen at [facility] ED with abdominal pain and diagnosed with non-obstructing kidney stones 3 weeks later she passed a stone. Patient continued to have intermittent abdominal pain. Pain has been worse for the past 3 days when she noted 10 x 10 stabbing abdominal pain which became worse with breathing and movement. She complains of nausea, vomiting with inability to eat anything except soup and crackers. Patient denies fever and felt hot yesterday after I will at [facility]. She has noted increased frequency with burning and dark urine containing some blood. Patient denies past history of liver or gallbladder problems. Patient has chronic heartburn (takes Omeprazole) and chronic constipation (on no medications) Pt denies dysphagia, recent change in bowel habits, diarrhea, black stools or rectal bleeding. Patient denies major cardiac or pulmonary problems. She has a hx of sleep apnea. Denies being on chronic anticoagulation. Patient admits to smoking 5 cigarettes daily x 40 yrs (since age 10) She drank heavily (beer and hard liquor) since age 17 and quit 20 years ago when she became Patient lives with her fiance and has 4 children. She is on disability Patient denies known family history of colon polyps, colon cancer or other GI malignancies. PAST SURGERIES/EGD/COLONOSCOPY: Patient denies having an upper endoscopy or colonoscopy in the past Pt had surgery for a tubal in the past. 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 There is also mild heterogeneity of the right renal parenchyma, bilateral perinephric fat stranding and air in the urinary bladder. Findings are concerning for an acute gas-forming bacterial infection. ? New severe dilatation of the common bile duct and moderate dilatation of the intrahepatic bile ducts. No definite choledocholithiasis. This could potentially be reactive in the setting of adjacent severe renal infection. However, correlation with an MR of the abdomen/MRCP is recommended to ensure the absence of obstructive lesions or stones. ? Nonspecific calcified lesion in the left adnexa. Further characterization could be obtained with an MR of the pelvis with and without intravenous contrast. ? Review of Systems Constitutional: Constitutional: Reports fatigue, Reports headache(s) and Reports weakness ENT: Reports headache(s) Cardiovascular: Cardiovascular: Reports chest pain Gastrointestinal: Gastrointestinal: Reports abdominal pain, Reports bloating, Reports constipation, Reports nausea and Reports vomiting Genitourinary: Genitourinary: Reports hematuria and Reports other (burning urination with increased frequency) Musculoskeletal: Musculoskeletal: Reports arthralgias Neurologic: Reports headache(s) and Reports weakness Psychiatric: Psychiatric: Reports anxiety and Reports depression Endocrine: Endocrine: Reports fatigue [facility] Past Medical History Medical History (Updated 08/25/21 @ 00:02 by Augustine Loya) Choledocholithiasis High cholesterol HTN (hypertension) Hydroureteronephrosis Kidney stones Family History Family History Mother Coronary artery disease Diabetes Surgical History Surgical History No pertinent past surgical history Social History Social History Household Members: Spouse Housing: Apartment Do you presently have visiting nurse or other home services: No Alcohol intake: former Patient Tobacco Use Status: Current everyday Tobacco user Tobacco use type: Cigarette Cigarettes Per Day: 5 Substance Use Type: Crack/Cocaine service: No Current occupational status: unemployed Meds Allergies Allergy/AdvReac Type Severity Reaction Status Date / Time canagliflozin [From Invokana] Allergy Rash Verified 11/26/20 18:22 latex Allergy Itching Verified 11/26/20 18:22 Penicillins Allergy Rash Verified 11/26/20 18:22 sitagliptin [From Januvia] Allergy Rash Verified 11/26/20 18:22 Active Medications: Current Medications Acetaminophen (Acetaminophen 325 Mg Tablet) 650 mg PO Q6H PRN PRN Reason: Pain, Mild (Pain Scale 1-3) Albuterol Sulfate (Albuterol Sulfate 90 Mcg 8 Gm Inhaler) 2 puff INHALE RQ4H PRN PRN Reason: wheezing Aspirin (Aspirin Enteric Coated 81 Mg Tablet.Dr) 81 mg PO DAILY [facility] Atorvastatin Calcium (Atorvastatin Calcium 80 Mg Tablet) 80 mg PO BEDTIME [facility] Buprenorphine/Naloxone (Buprenorphine/Naloxone 8/2 Mg Film) 1 film SUBLINGUAL TID [facility] Clonazepam (Clonazepam 0.5 Mg Tablet) 0.75 mg PO DAILY PRN PRN Reason: Anxiety Fluoxetine HCl (Fluoxetine Hcl 20 Mg Capsule) 60 mg PO DAILY [facility] Gabapentin (Gabapentin 600 Mg Tablet) 600 mg PO TID [facility] Last Admin: 08/14/21 04:01 Dose: Not Given Documented by: Hydrochlorothiazide (Hydrochlorothiazide 25 Mg Tablet) 25 mg PO DAILY [facility]; Protocol Sodium Chloride (Ns) 1,000 mls @ 100 mls/hr IVCONT .Q10H [facility] Last Infusion: 08/14/21 06:27 Dose: 100 mls/hr Documented by: Cefepime HCl 1 gm/ Sodium (Chloride) 50 mls @ 100 mls/hr IV Q8H [facility] Last Infusion: 08/14/21 06:26 Dose: Infused Documented by: Metronidazole (Flagyl) 500 mg in 100 mls @ 100 mls/hr IV Q8H [facility] Last Infusion: 08/14/21 05:16 Dose: Infused Documented by: Insulin Glargine (Insulin Glargine,Hum.Rec.Anlog 100 Unit/Ml 10 Ml Vial) 54 unit SUBCUT BID [facility] Insulin Human Lispro (Insulin Lispro 100 Unit/Ml 3 Ml Vial) 15 unit SUBCUT DA WALESKA@1200 [facility] Insulin Human Lispro (Insulin Lispro 100 Unit/Ml 3 Ml Vial) 20 unit SUBCUT DAILY@0900,1700 [facility] Levothyroxine Sodium (Levothyroxine Sodium 200 Mcg Tablet) 200 mcg PO DAILY@0630 [facility] Lisinopril (Lisinopril 20 Mg Tablet) 20 mg PO DAILY [facility]; Protocol Loratadine (Loratadine 10 Mg Tablet) 10 mg PO DAILY [facility] Morphine Sulfate (Morphine Sulfate 4 Mg/Ml Cartridge) 4 mg IVPUSH Q4H PRN; Protocol PRN Reason: Pain, Severe (Pain Scale 7-10) Last Admin: 08/13/21 23:01 Dose: 4 mg Documented by: Omeprazole (Omeprazole 20 Mg Capsule.Dr) 20 mg PO BID [facility] Ondansetron HCl (Ondansetron Hcl 4 Mg/2 Ml Vial) 4 mg IVPUSH Q8H PRN PRN Reason: Nausea and Vomiting Last Admin: 08/14/21 05:31 Dose: 4 mg Documented by: Pharmacy Consult (Consult Rx Perform Med Rec) 1 each MISCELLANE ONCE PRN PRN Reason: Consult order Trazodone HCl (Trazodone Hcl 100 Mg Tablet) 300 mg PO BEDTIME PRN PRN Reason: Insomnia Home Medications Medication Instructions Recorded Confirmed Last Taken Type albuterol sulfate 90 mcg/actuation 2 puff PO Q4H PRN 08/13/21 08/18/21 08/12/21 History aerosol inhaler (ProAir HFA) aspirin 81 mg tablet,delayed 1 tab PO DAILY 08/13/21 08/18/21 08/12/21 History release atorvastatin 80 mg tablet 1 tab PO BEDTIME 08/13/21 08/18/21 08/12/21 History buprenorphine 8 mg-naloxone 2 mg 1 strip SUBLINGUAL TID 08/13/21 08/18/21 08/13/21 History sublingual film (Suboxone) clonazepam 0.5 mg tablet 1 tab PO DAILY PRN 08/13/21 08/18/21 08/12/21 History fluoxetine 20 mg capsule 3 cap PO DAILY 08/13/21 08/18/21 08/12/21 History gabapentin 600 mg tablet 1 tab PO TID 08/13/21 08/18/2122 History ibuprofen 800 mg tablet 1 tab PO TID PRN 08/13/21 08/18/21 08/12/21 History insulin glargine 100 unit/mL (3 54 unit SUBCUT BID 08/13/21 08/18/21 08/12/21 History mL) subcutaneous pen (Lantus Solostar U-100 Insulin) insulin lispro 100 unit/mL 15 unit SUBCUT DAILY@1200 08/13/21 08/18/21 08/12/21 History subcutaneous pen (Humalog KwikPen (U-100) Insulin) insulin lispro 100 unit/mL 20 unit SUBCUT DAILY@0900,1700 08/13/21 08/18/21 08/12/21 History subcutaneous pen (Humalog KwikPen (U-100) Insulin) levothyroxine 200 mcg tablet 1 tab PO DAILY@0630 08/13/21 08/18/21 08/12/21 History lisinopril 20 1 tab PO DAILY 08/13/21 08/18/21 08/12/21 History mg-hydrochlorothiazide 25 mg tablet loratadine 10 mg tablet 1 tab PO DAILY 08/13/21 08/18/21 Unknown History omeprazole 20 mg capsule,delayed 1 cap PO BID@0630,1630 08/13/21 08/18/21 08/12/21 History release trazodone 100 mg tablet 1 - 3 tab PO BEDTIME PRN 08/13/21 08/18/21 08/12/21 History Physical Exam Vital Signs: Vital Signs: Last Vital Signs Temp 96.5 F L 08/14/21 05:18 Pulse 75 08/14/21 05:18 Resp 18 08/14/21 05:18 BP 153/75 H 08/14/21 05:18 Pulse Ox 94 08/14/21 05:18 BMI result Body Mass Index 50.1 Const: General: no acute distress and ill appearing Nutritional Appearance: obese (Morbidly obese) Orientation/consciousness: patient oriented x3 Limitations: no limitations HENMT: Head: Yes normal to inspection Ears: hearing grossly normal bilaterally Mouth: Normal oral and palatal mucosa present Eyes: Sclerae: sclerae normal Pupils: Equal, round and reactive pupils present Neck: Neck: Yes normal visual inspection Chest: Chest palpation & inspection: normal inspection of the chest Resp: Effort & Inspection: normal respiratory effort Auscultation: clear to auscultation bilaterally Cardio: Palpation: normal PMI Rate: regular rate Rhythm: regular rhythm Heart sounds: S1 normal heart sound present, S2 normal heart sound present and no murmurs GI: Inspection: Yes obesity Palpation (GI): Soft to palpation, Tenderness to palpation present (GI) (Moderate diffuse abdominal tenderness) and No hepatosplenomegaly present Auscultation: normal bowel sounds Rectal Exam - Female: deferred Skin: General skin exam: no rashes or lesions noted Neuro: General: patient oriented x3, gait normal and moves all extremities Cranial nerves: Yes Equal, round and reactive pupils present Psych: Appearance: grossly normal Mental Status: mental status grossly nor mal Results Labs CBC & Chem 7: 08/17/21 05:36 08/17/21 05:36 Labs: Short CBC 08/13/21 08/14/21 Range/Units 15:50 06:45 WBC 27.6 H 24.7 H (4.8-10.8) X10*3/uL Hgb 11.5 L 10.9 L (12.0-16.0) g/dl Hct 35.7 L 33.8 L (37.0-47.0) % Plt Count 236 219 (160-400) X10*3/uL BMP 08/13/21 08/14/21 15:50 06:45 Sodium 133 L 133 L Potassium 3.8 3.4 Chloride 98 101 Carbon Dioxide 24 22 BUN 17 H 20 H Creatinine 1.03 1.00 Calcium 8.9 8.2 L D Liver Function 08/13/21 Range/Units 15:50 Total Bilirubin 4.0 H (0.0-1.0) mg/dL Direct Bilirubin 3.0 H (0.0-0.5) mg/dL AST 95 H (5-31) U/L ALT 73 H (0-31) U/L Alkaline Phosphatase 929 H (39-117) U/L Albumin 3.0 L (3.5-5.0) g/dL Urine 08/13/21 Range/Units 21:34 Urine Color DK YELLOW Urine Appearance HAZY Urine pH 7.0 (5.0-8.0) Ur Specific [place] 1.020 (1.005-1.025) Urine Protein 3+ H (NEG-TRACE) MG/DL Urine Glucose (UA) 250 H (NEG) MG/DL Assessment and Plan (1) Common bile duct dilatation: Status: Resolved (2) Elevated LFTs: Status: Resolved Plan 51 YF with hypertension, hyperlipidemia, kidney stones, type 1 diabetes mellitus and morbid obesity admitted with 3 day hx of worsening abdominal pain, nausea and vomiting Abd CT scan showed severe right hydroureteronephrosis with emphysematous pyelitis and mild heterogeneity of the right renal parenchyma, bilateral perinephric fat stranding and air in the urinary bladder. concerning for an acute gas-forming bacterial infection. Ct scan also showed new severe dilatation of the common bile duct and moderate dilatation of the intrahepatic bile ducts. No definite choledocholithiasis. CBD dilation was felt to be reactive in the setting of adjacent severe renal infection. An MR of the abdomen/MRCP was recommended to ensure the absence of obstructive lesions or stones. Leucocytosis improved slightly and LFTs have improved except increase in total bilirubin. RECOMMENDATIONS: 1. Agree with IV antibiotics, anti-emetics and pain medications 2. Schedule patient for an MRCP/Abd MRI tomorrow 3. Ok for patient to resume a diabetic diet today and made NPO after midnight tonight I will FU with the patient after MRI/MRCP is performed. ADDENDUM: Pt unable to have an MRI due to BMI of > 50 HIDA SCAN SHOWED: Patency cystic duct. Patent CBD. Normal hepatic uptake without any focal defects.? Procedures Date of Service Date of Service: 08/14/21
[2021-08-14 09:15] LABS: Alanine Aminotransferase 62 U/L (0-31); Albumin Level 2.6 g/dL (3.5-5.0); Alkaline Phosphatase 860 U/L (39-117); Aspartate Amino Transferase 80 U/L (5-31)
[2021-08-14 09:37] LABS: Lipase 2139 U/L (8-78)
[2021-08-14] MEDS: Insulin Glargine,Hum.rec.anlog 100 UNIT/ML 10 ML VIAL 54 UNIT SUBCUT ×2 (10:33→20:34)
[2021-08-14] MEDS: lisinopriL 20 MG TABLET PO (10:41)
[2021-08-14] MEDS: Buprenorphine/Naloxone 8/2 mg FILM 1 FILM SUBLINGUAL ×3 (10:42→20:34)
[2021-08-14] MEDS: hydroCHLOROthiazide 25 MG TABLET PO (10:42)
[2021-08-14] MEDS: FLUoxetine HCl 20 MG CAPSULE 60 MG PO (10:42)
[2021-08-14] MEDS: Loratadine 10 MG TABLET PO (10:43)
[2021-08-14] MEDS: Omeprazole 20 MG CAPSULE.DR PO ×2 (10:43→20:34)
[2021-08-14] MEDS: Aspirin Enteric Coated 81 MG TABLET.DR PO (10:43)
[2021-08-14] MEDS: Gabapentin 600 MG TABLET PO ×3 (10:43→20:34)
[2021-08-14] MEDS: 0.9 % Sodium Chloride 1,000 ML 100 ML IVCONT ×2 (10:50→17:08)
--- NOTE | 2021-08-14 11:32 | P.PNIM_ITS ---
Subjective Subjective Date of Service: 08/14/21 Interval History: Continues with mild right upper quadrant right flank pain and nausea at despite therapies. Remains afebrile (96.5 temp is likely erroneous) Review of Systems Denies chest pain Denies shortness of breath Admits to nausea without vomiting no diarrhea Admits to right upper quadrant right flank pain that is constant in nature Physical Exam Vital Signs: Vital Signs: Last Vital Signs Temp 96.5 F L 08/14/21 05:18 Pulse 75 08/14/21 05:18 Resp 18 08/14/21 05:18 BP 153/75 H 08/14/21 05:18 Pulse Ox 94 08/14/21 05:18 BMI result Body Mass Index 50.1 Const: Other: Awake alert; uncomfortable due to the pain Resp: Other: Clear to auscultation bilaterally no rales rhonchi or wheezes Cardio: Other: No S4; positive S1-S2; no S3 murmurs rubs or gallops GI: Other: Mild right upper quadrant pain to palpation; mild voluntary guarding without rebound. Bowel sounds quiet Extrem: Other: No edema bilaterally Objective Data Active Medications Acetaminophen (Acetaminophen 325 Mg Tablet) 650 mg PO Q6H PRN PRN Reason: Pain, Mild (Pain Scale 1-3) Albuterol Sulfate (Albuterol Sulfate 90 Mcg 8 Gm Inhaler) 2 puff INHALE RQ4H PRN PRN Reason: wheezing Aspirin (Aspirin Enteric Coated 81 Mg Tablet.) 81 mg PO DAILY [facility] Last Admin: 08/14/21 10:43 Dose: 81 mg Documented by: SARAH Atorvastatin Calcium (Atorvastatin Calcium 80 Mg Tablet) 80 mg PO BEDTIME [facility] Buprenorphine/Naloxone (Buprenorphine/Naloxone 8/2 Mg Film) 1 film SUBLINGUAL TID [facility] Last Admin: 08/14/21 10:42 Dose: 1 film Documented by: SARAH Clonazepam (Clonazepam 0.5 Mg Tablet) 0.75 mg PO DAILY PRN PRN Reason: Anxiety Fluoxetine HCl (Fluoxetine Hcl 20 Mg Capsule) 60 mg PO DAILY [facility] Last Admin: 08/14/21 10:42 Dose: 60 mg Documented by: SARAH Gabapentin (Gabapentin 600 Mg Tablet) 600 mg PO TID [facility] Last Admin: 08/14/21 10:43 Dose: 600 mg Documented by: SARAH Hydrochlorothiazide (Hydrochlorothiazide 25 Mg Tablet) 25 mg PO DAILY [facility]; Protocol Last Admin: 08/14/21 10:42 Dose: 25 mg Documented by: SARAH Sodium Chloride (Ns) 1,000 mls @ 100 mls/hr IVCONT .Q10H [facility] Last Admin: 08/14/21 10:50 Dose: 100 mls/hr Documented by: SARAH Cefepime HCl 1 gm/ Sodium (Chloride) 50 mls @ 100 mls/hr IV Q8H [facility] Last Infusion: 08/14/21 06:26 Dose: 0 mls/hr Documented by: CHRIS Metronidazole (Flagyl) 500 mg in 100 mls @ 100 mls/hr IV Q8H [facility] Last Infusion: 08/14/21 05:16 Dose: 0 mls/hr Documented by: CHRIS Insulin Glargine (Insulin Glargine,Hum.Rec.Anlog 100 Unit/Ml 10 Ml Vial) 54 unit SUBCUT BID [facility] Last Admin: 08/14/21 10:33 Dose: 54 unit Documented by: SARAH Insulin Human Lispro (Insulin Lispro 100 Unit/Ml 3 Ml Vial) 15 unit SUBCUT DAILY@1200 [facility] Insulin Human Lispro (Insulin Lispro 100 Unit/Ml 3 Ml Vial) 20 unit SUBCUT DAILY@0900,1700 [facility] Levothyroxine Sodium (Levothyroxine Sodium 200 Mcg Tablet) 200 mcg PO DAILY@0630 [facility] Lisinopril (Lisinopril 20 Mg Tablet) 20 mg PO DAILY [facility]; Protocol Last Admin: 08/14/21 10:41 Dose: 20 mg Documented by: SARAH Loratadine (Loratadine 10 Mg Tablet) 10 mg PO DAILY [facility] Last Admin: 08/14/21 10:43 Dose: 10 mg Documented by: SARAH Morphine Sulfate (Morphine Sulfate 4 Mg/Ml Cartridge) 4 mg IVPUSH Q4H PRN; Protocol PRN Reason: Pain, Severe (Pain Scale 7-10) Last Admin: 08/13/21 23:01 Dose: 4 mg Documented by: GRACE Omeprazole (Omeprazole 20 Mg Capsule.) 20 mg PO BID [facility] Last Admin: 08/14/21 10:43 Dose: 20 mg Documented by: SARAH Ondansetron HCl (Ondansetron Hcl 4 Mg/2 Ml Vial) 4 mg IVPUSH Q8H PRN PRN Reason: Nausea and Vomiting Last Admin: 08/14/21 05:31 Dose: 4 mg Documented by: CHRIS Pharmacy Consult (Consult Rx Perform Med Rec) 1 each MISCELLANE ONCE PRN PRN Reason: Consult order Trazodone HCl (Trazodone Hcl 100 Mg Tablet) 300 mg PO BEDTIME PRN PRN Reason: Insomnia Labs CBC & Chem 7: 08/14/21 06:45 08/14/21 06:45 Labs: Laboratory Results - last 24 hr 08/13/21 08/13/21 08/13/21 15:50 15:50 18:19 MCV 89.9 MCH 29.0 MCHC 32.2 RDW 14.8 Plt Count 236 MPV 11.5 Immature Gran % (Auto) 0.6 H Neut % (Auto) 92.3 H Lymph % (Auto) 1.7 L [place] % (Auto) 5.2 Eos % (Auto) 0.0 Baso % (Auto) 0.2 Lymph # (Auto) 0.5 L [place] # (Auto) 1.4 H Eos # (Auto) 0.0 Baso # (Auto) 0.1 Abs Immat Gran (auto) 0.17 H Absolute Neuts (auto) 25.5 H Absolute Nucleated RBC 0.000 Nucleated RBC % (auto) 0.0 Smear Tech's Comments Anion Gap 15 Estim Creat Clear Calc 91.5 Estimated GFR 57 Random Glucose 337 H Lactic Acid 1.3 Calcium 8.9 Total Bilirubin 4.0 H Direct Bilirubin 3.0 H AST 95 H ALT 73 H Alkaline Phosphatase 929 H Total Protein 8.2 H Albumin 3.0 L Lipase 257 H Beta HCG, Quant < 2 Urine Color Urine Appearance Urine pH Ur Specific [place] Urine Protein Urine Glucose (UA) Urine Ketones Urine Blood Urine Nitrite Ur Leukocyte Esterase Urine RBC Urine WBC Urine WBC Clumps Ur Squamous Epith Cells Urine Bacteria Urine Mucus COVID-19 ([facility]) COVID-19 Clin Com 08/13/21 08/13/21 08/14/21 18:19 21:34 06:45 MCV 88.7 MCH 28.6 MCHC 32.2 RDW 14.6 Plt Count 219 MPV 11.5 Immature Gran % (Auto) 0.8 H Neut % (Auto) 91.0 H Lymph % (Auto) 2.9 L [place] % (Auto) 5.2 Eos % (Auto) 0.0 Baso % (Auto) 0.1 Lymph # (Auto) 0.7 L [place] # (Auto) 1.3 H Eos # (Auto) 0.0 Baso # (Auto) 0.0 Abs Immat Gran (auto) 0.19 H Absolute Neuts (auto) 22.5 H Absolute Nucleated RBC 0.000 Nucleated RBC % (auto) 0.0 Smear Tech's Comments VERIFIED Anion Gap Estim Creat Clear Calc Estimated GFR Random Glucose Lactic Acid Calcium Total Bilirubin Direct Bilirubin AST ALT Alkaline Phosphatase Total Protein Albumin Lipase Beta HCG, Quant Urine Color DK YELLOW Urine Appearance HAZY Urine pH 7.0 Ur Specific [place] 1.020 Urine Protein 3+ H Urine Glucose (UA) 250 H Urine Ketones NEG Urine Blood 3+ H Urine Nitrite NEG Ur Leukocyte Esterase TRACE H Urine RBC 30-49 H Urine WBC 50-75 H Urine WBC Clumps NOTED Ur Squamous Epith Cells NONE Urine Bacteria 3+ Urine Mucus TRACE COVID-19 ([facility]) Negative COVID-19 Clin Com See Note 08/14/21 06:45 MCV MCH MCHC RDW Plt Count MPV Immature Gran % (Auto) Neut % (Auto) Lymph % (Auto) [place] % (Auto) Eos % (Auto) Baso % (Auto) Lymph # (Auto) [place] # (Auto) Eos # (Auto) Baso # (Auto) Abs Immat Gran (auto) Absolute Neuts (auto) Absolute Nucleated RBC Nucleated RBC % (auto) Smear Tech's Comments Anion Gap 13 Estim Creat Clear Calc 94.4 Estimated GFR 59 Random Glucose 247 H Lactic Acid Calcium 8.2 L D Total Bilirubin 5.0 H Direct Bilirubin 4.0 H AST 80 H ALT 62 H Alkaline Phosphatase 860 H Total Protein 7.0 Albumin 2.6 L Lipase 2139 H Beta HCG, Quant Urine Color Urine Appearance Urine pH Ur Specific [place] Urine Protein Urine Glucose (UA) Urine Ketones Urine Blood Urine Nitrite Ur Leukocyte Esterase Urine RBC Urine WBC Urine WBC Clumps Ur Squamous Epith Cells Urine Bacteria Urine Mucus COVID-19 ([facility]) COVID-19 Clin Com Microbiology Microbiology Results: Microbiology 08/13/21 21:34 Urine Culture - Preliminary Urine Catheterized - Calloway Catheter Culture too young to evaluate. Assessment and Plan (1) Pyelonephritis: Status: Acute (2) Choledocholithiasis: Status: Acute (3) Common bile duct dilatation: Status: Acute Plan 51-year-old female with past medical history of diabetes as well as hypertension presents to the hospital with complaints of severe abdominal pain found to have cholecystitis as well as pyelonephritis 1.Abdominal pain - likely secondary to choledocholithiasis / possible cholangitis - cholestatic LFTs secondary to renal issues(most likely). TBili elevated secondary to obstruction - treat with IV antibiotics - GI consult pending 2. Acute pyelonephritis - persistant elevated WBC. Continue Cefepime and flagyl - ID consult 3.Hydroureteronephrosis - secondary to above - IV fluids - urology consult # diabetes -continue home insulin -diabetic diet -will add low-dose sliding scale insulin # hypertension - stable - continue home medication DVT prophylaxis: SCDs in the setting of possible intervention as well as MRCP given patient's need for IV antibiotics for treatment of pyelonephritis as well as need for GI/Uro input Quality Stroke Does the patient have a stroke diagnosis?: No VTE Prior VTE?: No VTE Risk Level:: Medical - moderate - high VTE Device Contraindication: N/A - Device Ordered VTE Drug Contraindication: Treatment Not Indicated
[2021-08-14 11:43] VITALS: BP 140/77; PULSE 70; RESP 18; TEMP 36.3; O2SAT 93
--- NOTE | 2021-08-14 12:28 | PC.NURSE ---
Pt seen by Dr. Huerta, npo status changed to diabetic diet. iv fluid infusing pt tolerating well. meds given as documented. vss, denies pain. pt's at bedside.
[2021-08-14 13:18] LABS: Glucose, Whole Blood 193 mg/dL (60-115)
[2021-08-14] MEDS: Insulin Lispro 100 UNIT/ML 3 ML VIAL 15 UNIT SUBCUT (13:57)
[2021-08-14] MEDS: cefEPime HCl 2 GM in 0.9 % Sodium Chloride 50 ML IV ×2 (13:59→22:14)
--- NOTE | 2021-08-14 14:41 | MHC.CM.PN ---
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 PT WOULD LIKELY NOT FIND PLACEMENT SHE IS NOT VACCINATED FOR COVID AND IS ON SUBOXONE REPORTING HER CLINIC IS AT [address] [place] [address] [place]. PT REPORTS SHE HAS A NEW UROLOGIST BUT HER FIRST APPT IS ON 08/19/21. D/C PLAN: HOME W/[facility] OF [facility] GISELLE MARI TO PROVIDE TRANSPORT HCP: KENJI LIMA [phone]
[2021-08-14 16:32] VITALS: BP 112/56; PULSE 73; RESP 16; TEMP 36.3; O2SAT 99
--- NOTE | 2021-08-14 17:20 | PC.NURSE ---
insulin held - late dinner in ED overflow
--- NOTE | 2021-08-14 17:34 | PC.NURSE ---
report taken from lei, patient a&ox3, talking on phone, ivf running per order, [facility] cath patient/draining, call celaya within reach will continue to monitor.
[2021-08-14 17:41] LABS: Glucose, Whole Blood 185 mg/dL (60-115)
--- NOTE | 2021-08-14 18:02 | PC.NURSE ---
pt a&ox3, vss, pt reporting 9/10 pain, resting comfortably, will continue to monitor.
[2021-08-14] MEDS: Insulin Lispro 100 UNIT/ML 3 ML VIAL 20 UNIT SUBCUT (18:20)
--- NOTE | 2021-08-14 18:32 | PC.NURSE ---
pt medicated w insulin per provider order.
[2021-08-14 20:00] VITALS: BP 105/54; PULSE 75; RESP 16; TEMP 36.3; O2SAT 97
[2021-08-14] MEDS: Atorvastatin Calcium 80 MG TABLET PO (20:34)
[2021-08-14] MEDS: metroNIDAZOLE/NS 500 MG/100 ML PIGGYBACK IV (20:35)
[2021-08-14 21:22] LABS: Glucose, Whole Blood 119 mg/dL (60-115)
--- NOTE | 2021-08-14 22:00 | PC.NURSE ---
PATIENT WAS GIVEN A BED BATH ,BEDDING WAS CHANGE AND PATIENT REPOSITION.
[2021-08-14] MEDS: clonazePAM 0.5 MG TABLET 0.75 MG PO (22:14)
[2021-08-15] VITALS (10 sets, daily range): BP systolic 118–176; BP diastolic 61–96; PULSE 78–86; RESP 16–20; TEMP 36.3–37.1; O2SAT 92–98
[2021-08-15] MEDS: 0.9 % Sodium Chloride 1,000 ML 100 ML IVCONT ×2 (00:29→18:57)
[2021-08-15] MEDS: metroNIDAZOLE/NS 500 MG/100 ML PIGGYBACK IV (04:17)
[2021-08-15 04:27] LABS: Vitamin B12 779 pg/mL (200-900)
[2021-08-15] MEDS: cefEPime HCl 2 GM in 0.9 % Sodium Chloride 50 ML IV ×2 (06:27→19:30)
[2021-08-15] MEDS: Levothyroxine Sodium 200 MCG TABLET PO (06:27)
[2021-08-15 07:31] LABS: MANUAL DIFF FLAG NO
[2021-08-15 07:33] LABS: Basophils Percent Auto 0.1 % (0-2); Eosinophils Absolute Auto 0.1 X10*3/uL (0.0-0.4); Eosinophils Percent Auto 0.5 % (0-4); Hematocrit 31.8 % (37.0-47.0); Hemoglobin 9.9 g/dl (12.0-16.0); Imm Gran Abs Auto 0.07 X10*3/uL (0.00-0.03); Imm Gran Pct Auto 0.5 % (0.0-0.4); Lymphocytes Absolute Auto 2.3 X10*3/uL (1.2-4.9); Mean Corpuscular HGB Conc 31.1 g/dl (31.0-35.0); Mean Corpuscular Hemoglobin 28.8 pg (27.0-33.0); Mean Corpuscular Volume 92.4 fL (80.0-98.0); Mean Platelet Volume 11.9 fL (9.4-12.3); Monocytes Absolute Auto 1.2 X10*3/uL (0.1-1.2); Neutrophils Absolute Auto 10.9 x10*3/uL (2.0-8.3); Neutrophils Percent Auto 74.9 % (45-73); Platelet Count 175 X10*3/uL (160-400); Red Blood Count 3.44 X10*6/uL (4.20-5.50); Red Cell Distribution Width 15.2 % (11.0-16.0); White Blood Count 14.5 X10*3/uL (4.8-10.8)
[2021-08-15 07:45] LABS: Glucose, Whole Blood 90 mg/dL (60-115)
--- NOTE | 2021-08-15 08:00 | P.CNUR_ITS ---
History of Present Illness Consult details Consult date: 08/15/21 Narrative: 51 year old female Poorly controlled diabetic for many years present with right-sided flank pain, fever, elevated white count imaging with pyelonephritis and air within right collecting system hydroureteronephrosis down to the level of the bladder initial recommendation for [place] catheter with antibiotics Will likely need cystoscopy right retrograde and stent to assist with drainage Review of Systems Constitutional: Constitutional: Reports as per HPI and Reports no additional constitutional complaints Cardiovascular: Cardiovascular: Reports as per HPI and Reports no additional cardiovascular complaints Respiratory: Respiratory: Reports as per HPI and Reports no additional res piratory complaints Gastrointestinal: Gastrointestinal: Reports as per HPI and Reports no additional gastrointestinal complaints Genitourinary: Genitourinary: Reports as per HPI Musculoskeletal: Musculoskeletal: Reports no additional musculoskeletal complaints and Reports as per HPI Neurologic: Reports system reviewed and no additional complaints, except as documented and Reports as per HPI PMFSH Past Medical History Medical History (Updated 08/14/21 @ 13:07 by Aniya Ralph MD) Diabetes type I High cholesterol HTN (hypertension) Kidney stones Family History Family History (Updated 08/14/21 @ 06:41 by Xiomy Angulo MD) Mother Coronary artery disease Diabetes Surgical History Surgical History (Updated 08/14/21 @ 06:41 by Xiomy Angulo MD) No pertinent past surgical history Social History Social History Alcohol intake: former Patient Tobacco Use Status: Current everyday Tobacco user Smoked in Last 30 Days: Yes Use of substances other than those prescribed or required for medical reasons: No Advance Directives: No Advance Directives Information Provided: No service: No Current occupational status: unemployed Meds Allergies Allergy/AdvReac Type Severity Reaction Status Date / Time canagliflozin [From Invokana] Allergy Rash Verified 11/26/20 18:22 latex Allergy Itching Verified 11/26/20 18:22 Penicillins Allergy Rash Verified 11/26/20 18:22 sitagliptin [From Januvia] Allergy Rash Verified 11/26/20 18:22 Active Medications: Current Medications Acetaminophen (Acetaminophen 325 Mg Tablet) 650 mg PO Q6H PRN PRN Reason: Pain, Mild (Pain Scale 1-3) Albuterol Sulfate (Albuterol Sulfate 90 Mcg 8 Gm Inhaler) 2 puff INHALE RQ4H PRN PRN Reason: wheezing Aspirin (Aspirin Enteric Coated 81 Mg Tablet.) 81 mg PO DAILY [facility] Last Admin: 08/14/21 10:43 Dose: 81 mg Documented by: Atorvastatin Calcium (Atorvastatin Calcium 80 Mg Tablet) 80 mg PO BEDTIME [facility] Last Admin: 08/14/21 20:34 Dose: 80 mg Documented by: Buprenorphine/Naloxone (Buprenorphine/Naloxone 8/2 Mg Film) 1 film SUBLINGUAL TID [facility] Last Admin: 08/14/21 20:34 Dose: 1 film Documented by: Clonazepam (Clonazepam 0.5 Mg Tablet) 0.75 mg PO DAILY PRN PRN Reason: Anxiety Last Admin: 08/14/21 22:14 Dose: 0.75 mg Documented by: Fluoxetine HCl (Fluoxetine Hcl 20 Mg Capsule) 60 mg PO DAILY [facility] Last Admin: 08/14/21 10:42 Dose: 60 mg Documented by: Gabapentin (Gabapentin 600 Mg Tablet) 600 mg PO TID [facility] Last Admin: 08/14/21 20:34 Dose: 600 mg Documented by: Hydrochlorothiazide (Hydrochlorothiazide 25 Mg Tablet) 25 mg PO DAILY [facility]; Protocol Last Admin: 08/14/21 10:42 Dose: 25 mg Documented by: Sodium Chloride (Ns) 1,000 mls @ 100 mls/hr IVCONT .Q10H [facility] Last Admin: 08/15/21 00:29 Dose: 100 mls/hr Documented by: Metronidazole (Flagyl) 500 mg in 100 mls @ 100 mls/hr IV Q8H [facility] Last Infusion: 08/15/21 04:29 Dose: Infused Documented by: Cefepime HCl 2 gm/ Sodium (Chloride) 50 mls @ 100 mls/hr IV Q8H [facility] Last Infusion: 08/15/21 06:57 Dose: Infused Documented by: Insulin Glargine (Insulin Glargine,Hum.Rec.Anlog 100 Unit/Ml 10 Ml Vial) 54 unit SUBCUT BID [facility] Last Admin: 08/14/21 20:34 Dose: 54 unit Documented by: Insulin Human Lispro (Insulin Lispro 100 Unit/Ml 3 Ml Vial) 15 unit SUBCUT DAILY@1200 [facility] Last Admin: 08/14/21 13:57 Dose: 15 unit Documented by: Insulin Human Lispro (Insulin Lispro 100 Unit/Ml 3 Ml Vial) 20 unit SUBCUT DAILY@0900,1700 [facility] Last Admin: 03/13/22 18:20 Dose: 20 unit Documented by: Levothyroxine Sodium (Levothyroxine Sodium 200 Mcg Tablet) 200 mcg PO DAILY@0630 [facility] Last Admin: 08/15/21 06:27 Dose: 200 mcg Documented by: Lisinopril (Lisinopril 20 Mg Tablet) 20 mg PO DAILY [facility]; Protocol Last Admin: 08/14/21 10:41 Dose: 20 mg Documented by: Loratadine (Loratadine 10 Mg Tablet) 10 mg PO DAILY [facility] Last Admin: 08/14/21 10:43 Dose: 10 mg Documented by: Morphine Sulfate (Morphine Sulfate 4 Mg/Ml Cartridge) 4 mg IVPUSH Q4H PRN; Protocol PRN Reason: Pain, Severe (Pain Scale 7-10) Last Admin: 08/13/21 23:01 Dose: 4 mg Documented by: Omeprazole (Omeprazole 20 Mg Capsule.Dr) 20 mg PO BID [facility] Last Admin: 08/14/21 20:34 Dose: 20 mg Documented by: Ondansetron HCl (Ondansetron Hcl 4 Mg/2 Ml Vial) 4 mg IVPUSH Q8H PRN PRN Reason: Nausea and Vomiting Last Admin: 08/14/21 05:31 Dose: 4 mg Documented by: Pharmacy Consult (Consult Rx Perform Med Rec) 1 each MISCELLANE ONCE PRN PRN Reason: Consult order Trazodone HCl (Trazodone Hcl 100 Mg Tablet) 300 mg PO BEDTIME PRN PRN Reason: Insomnia Home Medications Medication Instructions Recorded Confirmed Last Taken Type albuterol sulfate 90 mcg/actuation 2 puff PO Q4H PRN 08/13/21 08/13/21 08/12/21 History aerosol inhaler (ProAir HFA) aspirin 81 mg tablet,delayed 1 tab PO DAILY 08/13/21 08/13/21 08/12/21 History release atorvastatin 80 mg tablet 1 tab PO BEDTIME 08/13/21 08/13/21 08/12/21 History buprenorphine 8 mg-naloxone 2 mg 1 strip SUBLINGUAL TID 08/13/21 08/13/21 08/13/21 History sublingual film (Suboxone) clonazepam 0.5 mg tablet 1.5 tab PO DAILY PRN 08/13/21 08/13/21 08/12/21 History fluoxetine 20 mg capsule 3 cap PO QAM 08/13/21 08/13/21 08/12/21 History gabapentin 600 mg tablet 1 tab PO TID 08/13/21 08/13/21 08/12/21 History ibuprofen 800 mg tablet 1 tab PO TID PRN 08/13/21 08/13/21 08/12/21 History insulin glargine 100 unit/mL (3 54 unit SUBCUT BID 08/13/21 08/13/21 08/12/21 History mL) subcutaneous pen (Lantus Solostar U-100 Insulin) insulin lispro 100 unit/mL 15 unit SUBCUT DAILY@1200 08/13/21 08/13/21 08/12/21 History subcutaneous pen (Humalog KwikPen (U-100) Insulin) insulin lispro 100 unit/mL 20 unit SUBCUT DAILY@0900,1700 08/13/21 08/13/21 08/12/21 History subcutaneous pen (Humalog KwikPen (U-100) Insulin) levothyroxine 200 mcg tablet 1 tab PO DAILY 08/13/21 08/13/21 08/12/21 History lisinopril 20 1 tab PO DAILY 08/13/21 08/13/21 08/12/21 History mg-hydrochlorothiazide 25 mg tablet loratadine 10 mg tablet 1 tab PO DAILY 08/13/21 08/13/21 Unknown History omeprazole 20 mg capsule,delayed 1 cap PO BID 08/13/21 08/13/21 08/12/21 History release trazodone 100 mg tablet 1 - 3 tab PO BEDTIME PRN 08/13/21 08/13/21 08/12/21 History Physical Exam Vital Signs: Vital Signs: Last Vital Signs Temp 97.9 F 08/15/21 01:00 Pulse 78 08/15/21 01:00 Resp 18 08/15/21 01:00 BP 124/76 08/15/21 01:00 Pulse Ox 94 08/15/21 01:00 BMI result Body Mass Index 50.1 Const: General: cooperative, healthy appearing, comfortable and no acute distress Orientation/consciousness: patient oriented x3 HENMT: Face and sinus: Yes normal facial exam Mouth: moist mucous membranes Neck: Neck: Yes normal visual inspection, Yes full ROM and Yes trachea midline Chest: Chest palpation & inspection: normal inspection of the chest Resp: Effort & Inspection: normal respiratory effort, able to speak in complete sentences and no respiratory distress GI: Inspection: Yes normal to inspection Back/Spine/Pelvis: Cervical Spine: normal cervical lordosis Thoracic/Lumbar Spine: thoracic and lumbar spine normal to inspection Skin: General skin exam: no rashes or lesions noted Neuro: General: patient oriented x3, tone normal and moves all extremities Extrem: General: Yes normal to inspection and Yes capillary refill normal Results Labs Result diagrams: 08/15/21 07:12 08/14/21 06:45 Labs: Abnormal lab results 08/14/21 08/14/21 08/14/21 Range/Units 06:45 06:45 13:09 WBC 24.7 H (4.8-10.8) X10*3/uL RBC 3.81 L (4.20-5.50) X10*6/uL Hgb 10.9 L (12.0-16.0) g/dl Hct 33.8 L (37.0-47.0) % Immature Gran % (Auto) 0.8 H (0.0-0.4) % Neut % (Auto) 91.0 H (45-73) % Lymph % (Auto) 2.9 L (20-40) % Lymph # (Auto) 0.7 L (1.2-4.9) X10*3/uL [place] # (Auto) 1.3 H (0.1-1.2) X10*3/uL Abs Immat Gran (auto) 0.19 H (0.00-0.03) X10*3/uL Absolute Neuts (auto) 22.5 H (2.0-8.3) x10*3/uL POC Glucose 193 H (60-115) mg/dL Total Bilirubin 5.0 H (0.0-1.0) mg/dL Direct Bilirubin 4.0 H (0.0-0.5) mg/dL AST 80 H (5-31) U/L ALT 62 H (0-31) U/L Alkaline Phosphatase 860 H (39-117) U/L Albumin 2.6 L (3.5-5.0) g/dL Lipase 2139 H (8-78) U/L 08/14/21 08/14/21 08/15/21 Range/Units 16:35 20:51 07:12 WBC 14.5 H (4.8-10.8) X10*3/uL RBC 3.44 L (4.20-5.50) X10*6/uL Hgb 9.9 L (12.0-16.0) g/dl Hct 31.8 L (37.0-47.0) % Immature Gran % (Auto) 0.5 H (0.0-0.4) % Neut % (Auto) 74.9 H (45-73) % Lymph % (Auto) 16.0 L (20-40) % Lymph # (Auto) (1.2-4.9) X10*3/uL [place] # (Auto) (0.1-1.2) X10*3/uL Abs Immat Gran (auto) 0.07 H (0.00-0.03) X10*3/uL Absolute Neuts (auto) 10.9 H (2.0-8.3) x10*3/uL POC Glucose 185 H 119 H (60-115) mg/dL Total Bilirubin (0.0-1.0) mg/dL Direct Bilirubin (0.0-0.5) mg/dL AST (5-31) U/L ALT (0-31) U/L Alkaline Phosphatase (39-117) U/L Albumin (3.5-5.0) g/dL Lipase (8-78) U/L Short CBC 08/14/21 08/15/21 Range/Units 06:45 07:12 WBC 24.7 H 14.5 H (4.8-10.8) X10*3/uL Hgb 10.9 L 9.9 L (12.0-16.0) g/dl Hct 33.8 L 31.8 L (37.0-47.0) % Plt Count 219 175 (160-400) X10*3/uL Liver Function 08/14/21 Range/Units 06:45 Total Bilirubin 5.0 H (0.0-1.0) mg/dL Direct Bilirubin 4.0 H (0.0-0.5) mg/dL AST 80 H (5-31) U/L ALT 62 H (0-31) U/L Alkaline Phosphatase 860 H (39-117) U/L Albumin 2.6 L (3.5-5.0) g/dL Urine 08/13/21 Range/Units 21:34 Urine Color DK YELLOW Urine Appearance HAZY Urine pH 7.0 (5.0-8.0) Ur Specific [place] 1.020 (1.005-1.025) Urine Protein 3+ H (NEG-TRACE) MG/DL Urine Glucose (UA) 250 H (NEG) MG/DL All other labs normal. Assessment and Plan (1) Hydroureteronephrosis: Status: Acute (2) Pyelonephritis: Status: Acute Plan cystoscopy, right retrograde, right stent placement after 24-36 hours of IV antibiotics Procedures Date of Service Date of Service: 08/14/21
--- NOTE | 2021-08-15 08:08 | PC.NURSE ---
Pt requesting anti-anxiety medication to help get through MRI, provider made aware. a one time ativan Rx order placed by provider. RN to give before pt goes to MRI.
[2021-08-15] MEDS: LORazepam 1 MG TABLET PO (08:13)
--- NOTE | 2021-08-15 08:26 | PC.NURSE ---
test cell technician told RN pt will be going to MRI before going to the floor. This RN pulled and gave pt the PO ativan that was ordered.
[2021-08-15 09:11] LABS: Alanine Aminotransferase 63 U/L (0-31); Albumin Level 2.5 g/dL (3.5-5.0); Alkaline Phosphatase 920 U/L (39-117); Anion Gap 15 (12-20); Aspartate Amino Transferase 90 U/L (5-31); Blood Urea Nitrogen 32 mg/dL (9-16); Calcium 8.2 mg/dL (8.4-10.2); Carbon Dioxide 23 mmol/L (22-29); Chloride 102 mmol/L (96-108); Creatinine Clr Calc Pharmacy 60.1; Estimated Glomerular Filt Rate 35; Glucose Fasting 86 mg/dL (60-99); Potassium 3.7 mmol/L (3.3-5.1); Sodium 136 mmol/L (135-145); Total Protein 7.2 g/dL (6.5-8.0)
[2021-08-15] MEDS: Morphine Sulfate 4 MG/ML CARTRIDGE IVPUSH ×3 (09:12→19:00)
[2021-08-15] MEDS: lisinopriL 20 MG TABLET PO (09:19)
[2021-08-15] MEDS: Loratadine 10 MG TABLET PO (09:19)
[2021-08-15] MEDS: hydroCHLOROthiazide 25 MG TABLET PO (09:19)
[2021-08-15] MEDS: FLUoxetine HCl 20 MG CAPSULE 60 MG PO (09:19)
[2021-08-15] MEDS: Gabapentin 600 MG TABLET PO ×3 (09:19→20:55)
[2021-08-15] MEDS: Omeprazole 20 MG CAPSULE.DR PO ×2 (09:19→20:55)
[2021-08-15] MEDS: Aspirin Enteric Coated 81 MG TABLET.DR PO (09:20)
[2021-08-15] MEDS: Buprenorphine/Naloxone 8/2 mg FILM 1 FILM SUBLINGUAL ×3 (09:20→20:55)
[2021-08-15 09:59] LABS: Glucose, Whole Blood 85 mg/dL (60-115)
--- NOTE | 2021-08-15 10:31 | P.CDIC_ITS ---
CDI Concurrent Query Documentation Clarification: PHYSICIAN'S DOCUMENTATION REQUEST Date of Query: 08/15/21 1031 Patient Name: Betzaida Cole Admit Date: 08/13/21 Dear Doctor, A review of the medical record indicates additional documentation may be needed. Please review below and update the documentation accordingly. Clinical Indicators: Height: [] 5'5 Weight: [] 136.531 kg BMI: [] 50.1 Other Clinical Notes Supporting Significance of the BMI: Risk Factors/Clinical Indicators/Treatments If possible, please provide an associated diagnosis related to the abnormal BMI, such as: For a BMI >= 40: * Overweight * Obesity * Due to excess calories * Drug induced * Due to other cause * Severe or Morbid Obesity * With alveolar hypoventilation * Without alveolar hypoventilation Or: * BMI is not significant * Other (please specify) * Unable to determine Use of terms such as suspected, likely, concern for, or probable (associated with a specific diagnosis that is being evaluated, monitored, or treated as if it exists) are acceptable and can be coded in the inpatient setting, when documented at the time of discharge. Thank you, Katy White [insert CDI's credentials] Extension: [4-digit phone extension] Please use your independent medical judgment in providing your response. 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
--- NOTE | 2021-08-15 11:20 | P.CONAN_ITS ---
[facility] Active Problems Active Problems: All Active Problems (Updated 08/14/21 @ 13:07 by Aniya Ralph MD) Elevated LFTs (Acute) Hydroureteronephrosis (Acute) Choledocholithiasis (Acute) Pyelonephritis (Acute) Common bile duct dilatation (Acute) Past Medical History Medical History (Updated 08/14/21 @ 13:07 by Aniya Ralph MD) Diabetes type I High cholesterol HTN (hypertension) Kidney stones Family History Family History (Updated 08/14/21 @ 06:41 by Xiomy Angulo MD) Mother Coronary artery disease Diabetes Family history of problems with anesthesia: No Surgical History Surgical History (Updated 08/14/21 @ 06:41 by Xiomy Angulo MD) No pertinent past surgical history History of Problems with Anesthesia: No Social History Social History Alcohol intake: former Patient Tobacco Use Status: Current everyday Tobacco user Tobacco use type: Cigarette Cigarettes Per Day: 5 service: No Current occupational status: unemployed Meds Allergies Allergy/AdvReac Type Severity Reaction Status Date / Time canagliflozin [From Invokana] Allergy Rash Verified 11/26/20 18:22 latex Allergy Itching Verified 11/26/20 18:22 Penicillins Allergy Rash Verified 11/26/20 18:22 sitagliptin [From Januvia] Allergy Rash Verified 11/26/20 18:22 Active Medications: Current Medications Acetaminophen (Acetaminophen 325 Mg Tablet) 650 mg PO Q6H PRN PRN Reason: Pain, Mild (Pain Scale 1-3) Albuterol Sulfate (Albuterol Sulfate 90 Mcg 8 Gm Inhaler) 2 puff INHALE RQ4H PRN PRN Reason: wheezing Aspirin (Aspirin Enteric Coated 81 Mg Tablet.) 81 mg PO DAILY [facility] Last Admin: 08/15/21 09:20 Dose: 81 mg Documented by: Atorvastatin Calcium (Atorvastatin Calcium 80 Mg Tablet) 80 mg PO BEDTIME [facility] Last Admin: 08/14/21 20:34 Dose: 80 mg Documented by: Buprenorphine/Naloxone (Buprenorphine/Naloxone 8/2 Mg Film) 1 film SUBLINGUAL TID [facility] Last Admin: 08/15/21 09:20 Dose: 1 film Documented by: Clonazepam (Clonazepam 0.5 Mg Tablet) 0.75 mg PO DAILY PRN PRN Reason: Anxiety Last Admin: 08/14/21 22:14 Dose: 0.75 mg Documented by: Fluoxetine HCl (Fluoxetine Hcl 20 Mg Capsule) 60 mg PO DAILY [facility] Last Admin: 08/15/21 09:19 Dose: 60 mg Documented by: Gabapentin (Gabapentin 600 Mg Tablet) 600 mg PO TID [facility] Last Admin: 08/15/21 09:19 Dose: 600 mg Documented by: Hydrochlorothiazide (Hydrochlorothiazide 25 Mg Tablet) 25 mg PO DAILY [facility]; Protocol Last Admin: 08/15/21 09:19 Dose: 25 mg Documented by: Sodium Chloride (Ns) 1,000 mls @ 100 mls/hr IVCONT .Q10H [facility] Last Admin: 08/15/21 00:29 Dose: 100 mls/hr Documented by: Metronidazole (Flagyl) 500 mg in 100 mls @ 100 mls/hr IV Q8H [facility] Last Infusion: 08/15/21 04:29 Dose: Infused Documented by: Cefepime HCl 2 gm/ Sodium (Chloride) 50 mls @ 100 mls/hr IV Q8H [facility] Last Infusion: 08/15/21 06:57 Dose: Infused Documented by: Insulin Glargine (Insulin Glargine,Hum.Rec.Anlog 100 Unit/Ml 10 Ml Vial) 54 unit SUBCUT BID [facility] Last Admin: 08/15/21 10:29 Dose: Not Given Documented by: Insulin Human Lispro (Insulin Lispro 100 Unit/Ml 3 Ml Vial) 15 unit SUBCUT DAILY@1200 [facility] Last Admin: 08/14/21 13:57 Dose: 15 unit Documented by: Insulin Human Lispro (Insulin Lispro 100 Unit/Ml 3 Ml Vial) 20 unit SUBCUT DAILY@0900,1700 [facility] Last Admin: 08/15/21 10:29 Dose: Not Given Documented by: Levothyroxine Sodium (Levothyroxine Sodium 200 Mcg Tablet) 200 mcg PO DAILY@0630 [facility] Last Admin: 08/15/21 06:27 Dose: 200 mcg Documented by: Lisinopril (Lisinopril 20 Mg Tablet) 20 mg PO DAILY [facility]; Protocol Last Admin: 08/15/21 09:19 Dose: 20 mg Documented by: Loratadine (Loratadine 10 Mg Tablet) 10 mg PO DAILY [facility] Last Admin: 08/15/21 09:19 Dose: 10 mg Documented by: Morphine Sulfate (Morphine Sulfate 4 Mg/Ml Cartridge) 4 mg IVPUSH Q4H PRN; Protocol PRN Reason: Pain, Severe (Pain Scale 7-10) Last Admin: 08/15/21 09:12 Dose: 4 mg Documented by: Omeprazole (Omeprazole 20 Mg Capsule.Dr) 20 mg PO BID [facility] Last Admin: 08/15/21 09:19 Dose: 20 mg Documented by: Ondansetron HCl (Ondansetron Hcl 4 Mg/2 Ml Vial) 4 mg IVPUSH Q8H PRN PRN Reason: Nausea and Vomiting Last Admin: 08/14/21 05:31 Dose: 4 mg Documented by: Pharmacy Consult (Consult Rx Perform Med Rec) 1 each MISCELLANE ONCE PRN PRN Reason: Consult order Trazodone HCl (Trazodone Hcl 100 Mg Tablet) 300 mg PO BEDTIME PRN PRN Reason: Insomnia Home Medications Medication Instructions Recorded Confirmed Last Taken Type albuterol sulfate 90 mcg/actuation 2 puff PO Q4H PRN 08/13/21 08/13/21 08/12/21 History aerosol inhaler (ProAir HFA) aspirin 81 mg tablet,delayed 1 tab PO DAILY 08/13/21 08/13/21 08/12/21 History release atorvastatin 80 mg tablet 1 tab PO BEDTIME 08/13/21 08/13/21 08/12/21 History buprenorphine 8 mg-naloxone 2 mg 1 strip SUBLINGUAL TID 08/13/21 08/13/21 08/13/21 History sublingual film (Suboxone) clonazepam 0.5 mg tablet 1.5 tab PO DAILY PRN 08/13/21 08/13/21 08/12/21 History fluoxetine 20 mg capsule 3 cap PO QAM 08/13/21 08/13/21 08/12/21 History gabapentin 600 mg tablet 1 tab PO TID 08/13/21 08/13/21 08/12/21 History ibuprofen 800 mg tablet 1 tab PO TID PRN 08/13/21 08/13/21 08/12/21 History insulin glargine 100 unit/mL (3 54 unit SUBCUT BID 08/13/21 08/13/21 08/12/21 History mL) subcutaneous pen (Lantus Solostar U-100 Insulin) insulin lispro 100 unit/mL 15 unit SUBCUT DAILY@1200 08/13/21 08/13/21 08/12/21 History subcutaneous pen (Humalog KwikPen (U-100) Insulin) insulin lispro 100 unit/mL 20 unit SUBCUT DAILY@0900,1700 08/13/21 08/13/21 08/12/21 History subcutaneous pen (Humalog KwikPen (U-100) Insulin) levothyroxine 200 mcg tablet 1 tab PO DAILY 08/13/21 08/13/21 08/12/21 History lisinopril 20 1 tab PO DAILY 08/13/21 08/13/21 08/12/21 History mg-hydrochlorothiazide 25 mg tablet loratadine 10 mg tablet 1 tab PO DAILY 08/13/21 08/13/21 Unknown History omeprazole 20 mg capsule,delayed 1 cap PO BID 08/13/21 08/13/21 08/12/21 History release trazodone 100 mg tablet 1 - 3 tab PO BEDTIME PRN 08/13/21 08/13/21 08/12/21 History Exam Exam Date and Time: August 15, 2021 1120 Height,Weight and Vital Signs: Height 5 ft 5 in Weight 136.531 kg Last Vital Signs Temp 98.6 F 08/15/21 09:56 Pulse 81 08/15/21 09:56 Resp 18 08/15/21 09:56 BP 119/64 08/15/21 09:56 Pulse Ox 97 08/15/21 09:56 Pertinent Lab Results Pertinent Lab Results: Laboratory Tests 08/13/21 08/13/21 08/13/21 15:50 15:50 15:50 WBC 27.6 H RBC 3.97 L Hgb 11.5 L Hct 35.7 L MCV 89.9 MCH 29.0 MCHC 32.2 RDW 14.8 Plt Count 236 MPV 11.5 Immature Gran % (Auto) 0.6 H Neut % (Auto) 92.3 H Lymph % (Auto) 1.7 L Powell % (Auto) 5.2 Eos % (Auto) 0.0 Baso % (Auto) 0.2 Lymph # (Auto) 0.5 L Powell # (Auto) 1.4 H Eos # (Auto) 0.0 Baso # (Auto) 0.1 Abs Immat Gran (auto) 0.17 H Absolute Neuts (auto) 25.5 H Absolute Nucleated RBC 0.000 Nucleated RBC % (auto) 0.0 Smear Tech's Comments Sodium 133 L Potassium 3.8 Chloride 98 Carbon Dioxide 24 Anion Gap 15 BUN 17 H Creatinine 1.03 Estim Creat Clear Calc 91.5 Estimated GFR 57 POC Glucose Random Glucose 337 H Fasting Glucose Lactic Acid Calcium 8.9 Total Bilirubin 4.0 H Direct Bilirubin 3.0 H AST 95 H ALT 73 H Alkaline Phosphatase 929 H Troponin I High Sens < 3.5 Total Protein 8.2 H Albumin 3.0 L Lipase 257 H Vitamin B12 Beta HCG, Quant < 2 Urine Color Urine Appearance Urine pH Ur Specific [place] Urine Protein Urine Glucose (UA) Urine Ketones Urine Blood Urine Nitrite Ur Leukocyte Esterase Urine RBC Urine WBC Urine WBC Clumps Ur Squamous Epith Cells Urine Bacteria Urine Mucus COVID-19 ([facility]RIK) COVID-19 [employer] 08/13/21 08/13/21 08/13/21 18:19 18:19 21:34 WBC RBC Hgb Hct MCV MCH MCHC RDW Plt Count MPV Immature Gran % (Auto) Neut % (Auto) Lymph % (Auto) Powell % (Auto) Eos % (Auto) Baso % (Auto) Lymph # (Auto) Powell # (Auto) Eos # (Auto) Baso # (Auto) Abs Immat Gran (auto) Absolute Neuts (auto) Absolute Nucleated RBC Nucleated RBC % (auto) Smear Tech's Comments Sodium Potassium Chloride Carbon Dioxide Anion Gap BUN Creatinine Estim Creat Clear Calc Estimated GFR POC Glucose Random Glucose Fasting Glucose Lactic Acid 1.3 Calcium Total Bilirubin Direct Bilirubin AST ALT Alkaline Phosphatase Troponin I High Sens Total Protein Albumin Lipase Vitamin B12 Beta HCG, Quant Urine Color DK YELLOW Urine Appearance HAZY Urine pH 7.0 Ur Specific [place] 1.020 Urine Protein 3+ H Urine Glucose (UA) 250 H Urine Ketones NEG Urine Blood 3+ H Urine Nitrite NEG Ur Leukocyte Esterase TRACE H Urine RBC 30-49 H Urine WBC 50-75 H Urine WBC Clumps NOTED Ur Squamous Epith Cells NONE Urine Bacteria 3+ Urine Mucus TRACE COVID-19 ([facility]RIK) Negative COVID-19 [employer] See Note 08/14/21 08/14/21 08/14/21 06:45 06:45 06:45 WBC 24.7 H RBC 3.81 L Hgb 10.9 L Hct 33.8 L MCV 88.7 MCH 28.6 MCHC 32.2 RDW 14.6 Plt Count 219 MPV 11.5 Immature Gran % (Auto) 0.8 H Neut % (Auto) 91.0 H Lymph % (Auto) 2.9 L Powell % (Auto) 5.2 Eos % (Auto) 0.0 Baso % (Auto) 0.1 Lymph # (Auto) 0.7 L Powell # (Auto) 1.3 H Eos # (Auto) 0.0 Baso # (Auto) 0.0 Abs Immat Gran (auto) 0.19 H Absolute Neuts (auto) 22.5 H Absolute Nucleated RBC 0.000 Nucleated RBC % (auto) 0.0 Smear Tech's Comments VERIFIED Sodium 133 L Potassium 3.4 Chloride 101 Carbon Dioxide 22 Anion Gap 13 BUN 20 H Creatinine 1.00 Estim Creat Clear Calc 94.4 Estimated GFR 59 POC Glucose Random Glucose 247 H Fasting Glucose Lactic Acid Calcium 8.2 L D Total Bilirubin 5.0 H Direct Bilirubin 4.0 H AST 80 H ALT 62 H Alkaline Phosphatase 860 H Troponin I High Sens Total Protein 7.0 Albumin 2.6 L Lipase 2139 H Vitamin B12 779 Beta HCG, Quant Urine Color Urine Appearance Urine pH Ur Specific [place] Urine Protein Urine Glucose (UA) Urine Ketones Urine Blood Urine Nitrite Ur Leukocyte Esterase Urine RBC Urine WBC Urine WBC Clumps Ur Squamous Epith Cells Urine Bacteria Urine Mucus COVID-19 ([facility]RIK) COVID-19 Clin Com 08/14/21 08/14/21 08/14/21 13:09 16:35 20:51 WBC RBC Hgb Hct MCV MCH MCHC RDW Plt Count MPV Immature Gran % (Auto) Neut % (Auto) Lymph % (Auto) Powell % (Auto) Eos % (Auto) Baso % (Auto) Lymph # (Auto) Powell # (Auto) Eos # (Auto) Baso # (Auto) Abs Immat Gran (auto) Absolute Neuts (auto) Absolute Nucleated RBC Nucleated RBC % (auto) Smear Tech's Comments Sodium Potassium Chloride Carbon Dioxide Anion Gap BUN Creatinine Estim Creat Clear Calc Estimated GFR POC Glucose 193 H 185 H 119 H Random Glucose Fasting Glucose Lactic Acid Calcium Total Bilirubin Direct Bilirubin AST ALT Alkaline Phosphatase Troponin I High Sens Total Protein Albumin Lipase Vitamin B12 Beta HCG, Quant Urine Color Urine Appearance Urine pH Ur Specific [place] Urine Protein Urine Glucose (UA) Urine Ketones Urine Blood Urine Nitrite Ur Leukocyte Esterase Urine RBC Urine WBC Urine WBC Clumps Ur Squamous Epith Cells Urine Bacteria Urine Mucus COVID-19 ([facility]RIK) COVID-19 Clin Com 08/15/21 08/15/21 08/15/21 07:12 07:42 08:20 WBC 14.5 H RBC 3.44 L Hgb 9.9 L Hct 31.8 L MCV 92.4 MCH 28.8 MCHC 31.1 RDW 15.2 Plt Count 175 MPV 11.9 Immature Gran % (Auto) 0.5 H Neut % (Auto) 74.9 H Lymph % (Auto) 16.0 L Powell % (Auto) 8.0 Eos % (Auto) 0.5 Baso % (Auto) 0.1 Lymph # (Auto) 2.3 Powell # (Auto) 1.2 Eos # (Auto) 0.1 Baso # (Auto) 0.0 Abs Immat Gran (auto) 0.07 H Absolute Neuts (auto) 10.9 H Absolute Nucleated RBC 0.000 Nucleated RBC % (auto) 0.0 Smear Tech's Comments Sodium 136 Potassium 3.7 Chloride 102 Carbon Dioxide 23 Anion Gap 15 BUN 32 H D Creatinine 1.57 H Estim Creat Clear Calc 60.1 Estimated GFR 35 POC Glucose 90 Random Glucose Fasting Glucose 86 Lactic Acid Calcium 8.2 L Total Bilirubin 4.0 H Direct Bilirubin AST 90 H ALT 63 H Alkaline Phosphatase 920 H Troponin I High Sens Total Protein 7.2 Albumin 2.5 L Lipase Vitamin B12 Beta HCG, Quant Urine Color Urine Appearance Urine pH Ur Specific [place] Urine Protein Urine Glucose (UA) Urine Ketones Urine Blood Urine Nitrite Ur Leukocyte Esterase Urine RBC Urine WBC Urine WBC Clumps Ur Squamous Epith Cells Urine Bacteria Urine Mucus COVID-19 ([facility]K) COVID-19 Clin Com 08/15/21 09:53 WBC RBC Hgb Hct MCV MCH MCHC RDW Plt Count MPV Immature Gran % (Auto) Neut % (Auto) Lymph % (Auto) Powell % (Auto) Eos % (Auto) Baso % (Auto) Lymph # (Auto) Powell # (Auto) Eos # (Auto) Baso # (Auto) Abs Immat Gran (auto) Absolute Neuts (auto) Absolute Nucleated RBC Nucleated RBC % (auto) Smear Tech's Comments Sodium Potassium Chloride Carbon Dioxide Anion Gap BUN Creatinine Estim Creat Clear Calc Estimated GFR POC Glucose 85 Random Glucose Fasting Glucose Lactic Acid Calcium Total Bilirubin Direct Bilirubin AST ALT Alkaline Phosphatase Troponin I High Sens Total Protein Albumin Lipase Vitamin B12 Beta HCG, Quant Urine Color Urine Appearance Urine pH Ur Specific [place] Urine Protein Urine Glucose (UA) Urine Ketones Urine Blood Urine Nitrite Ur Leukocyte Esterase Urine RBC Urine WBC Urine WBC Clumps Ur Squamous Epith Cells Urine Bacteria Urine Mucus COVID-19 ([facility]RIK) COVID-19 Clin Com Assessment and Plan Assessment Anesthesia Assessment: Anesthesia Plan Discussed and Chart Reviewed Final Anesthetic Review Family History of Problems with Anesthesia: No History of Problems with Anesthesia: No NPO: Yes ASA Class: III Final Preanesthetic Review: Meds/Allgs Chart Reviewed, Consent Obtained/Reviewed and Anes Risks/Benef Reviewed Patient Risk: High Procedure Risk: Low Anesthetic Plan Anesthetic Plan: MAC: Disposition: Standard PACU
--- NOTE | 2021-08-15 11:39 | PC.NURSE ---
Patient transferred from overflow via stretcher approx 0900, IVF were not present.
--- NOTE | 2021-08-15 11:40 | W.PM.OPN ---
Operative Note Operative Note Date of Service: 08/15/21 Narrative: PreOperative Diagnosis: Right hydroureteronephrosis with pyelonephritis Post Operative Diagnosis: above Procedure: cystoscopy, right retrograde, right stent placement Surgeon: Dr Mihai Reed Anesthesia: sedation Indications for procedure: 51-year-old poorly controlled diabetic with pyelonephritis. Air within kidney. Has responded in WBC has fallen with antibiotics. Plan for stent placement Procedure: After informed consent was verified the patient was brought to the operating room and placed in a supine position. Anesthesia was administered per protocol. 22 Chinese cystoscope inserted per urethra. Bladder emptied. Right ureteric orifice seen cannulated and retrograde examination performed. Pyelonephritis no visible defect. open-ended catheter placed in aspiration performed. Urine sent for culture no obvious pyuria. Wire placed. Six Chinese by 26 cm double-J stent placed without difficulty. Calloway catheter replaced. Pathology: aspiration from right kidney Drains: 6 Chinese by 26 cm double-J stent
--- NOTE | 2021-08-15 11:58 | MHC.CM.PN ---
PLAN IS FOR STENT TODAY. EVENTUAL DC HOME WITH RESUMPTION OF [employer] [facility]
[2021-08-15] MEDS: Lactated Ringers 1,000 ML 100 ML IVCONT ×2 (13:57→22:46)
[2021-08-15] MEDS: metroNIDAZOLE/NS 500 MG/100 ML PIGGYBACK 100 MG IV ×2 (14:11→20:09)
--- NOTE | 2021-08-15 15:44 | P.PNIM_ITS ---
Subjective Subjective Date of Service: 08/15/21 Interval History: Continues with mild right upper quadrant right flank pain ; underwent stenting by Dr. Reed this a.m. Review of Systems Denies chest pain Denies shortness of breath Admits to nausea without vomiting no diarrhea Admits to right upper quadrant right flank pain that is constant in nature Physical Exam Vital Signs: Vital Signs: Last Vital Signs Temp 98.8 F 08/15/21 13:23 Pulse 86 08/15/21 13:23 Resp 16 08/15/21 13:23 BP 120/76 08/15/21 13:23 Pulse Ox 98 08/15/21 13:23 BMI result Body Mass Index 50.1 Const: Other: Awake alert; uncomfortable due to the pain Resp: Other: Clear to auscultation bilaterally no rales rhonchi or wheezes Cardio: Other: No S4; positive S1-S2; no S3 murmurs rubs or gallops GI: Other: Mild right upper quadrant pain to palpation; mild voluntary guarding without rebound. Bowel sounds quiet Extrem: Other: No edema bilaterally Objective Data Active Medications Acetaminophen (Acetaminophen 325 Mg Tablet) 650 mg PO Q6H PRN PRN Reason: Pain, Mild (Pain Scale 1-3) Albuterol Sulfate (Albuterol Sulfate 90 Mcg 8 Gm Inhaler) 2 puff INHALE RQ4H PRN PRN Reason: wheezing Aspirin (Aspirin Enteric Coated 81 Mg Tablet.) 81 mg PO DAILY [facility] Last Admin: 08/15/21 09:20 Dose: 81 mg Documented by: ANNA MARIE Atorvastatin Calcium (Atorvastatin Calcium 80 Mg Tablet) 80 mg PO BEDTIME [facility] Last Admin: 08/14/21 20:34 Dose: 80 mg Documented by: HALLIE Buprenorphine/Naloxone (Buprenorphine/Naloxone 8/2 Mg Film) 1 film SUBLINGUAL TID [facility] Last Admin: 08/15/21 09:20 Dose: 1 film Documented by: ANNA MARIE Clonazepam (Clonazepam 0.5 Mg Tablet) 0.75 mg PO DAILY PRN PRN Reason: Anxiety Last Admin: 08/14/21 22:14 Dose: 0.75 mg Documented by: HALLIE Fentanyl (Fentanyl Citrate/Pf 100 Mcg/2 Ml Vial) 50 mcg IVPUSH Q5M PRN; Protocol PRN Reason: Pain, Severe (Pain Scale 7-10) Fluoxetine HCl (Fluoxetine Hcl 20 Mg Capsule) 60 mg PO DAILY [facility] Last Admin: 08/15/21 09:19 Dose: 60 mg Documented by: ANNA MARIE Gabapentin (Gabapentin 600 Mg Tablet) 600 mg PO TID [facility] Last Admin: 08/15/21 09:19 Dose: 600 mg Documented by: ANNA MARIE Hydrochlorothiazide (Hydrochlorothiazide 25 Mg Tablet) 25 mg PO DAILY [facility]; Protocol Last Admin: 08/15/21 09:19 Dose: 25 mg Documented by: ANNA MARIE Sodium Chloride (Ns) 1,000 mls @ 100 mls/hr IVCONT .Q10H [facility] Last Infusion: 08/15/21 11:38 Dose: 0 mls/hr Documented by: ANNA MARIE Metronidazole (Flagyl) 500 mg in 100 mls @ 100 mls/hr IV Q8H [facility] Last Admin: 08/15/21 14:11 Dose: 100 mls/hr Documented by: ANNA MARIE Cefepime HCl 2 gm/ Sodium (Chloride) 50 mls @ 100 mls/hr IV Q8H [facility] Last Infusion: 08/15/21 06:57 Dose: 0 mls/hr Documented by: COLTON-BARBRA Lactated Ringer's (Lr) 1,000 mls @ 100 mls/hr IVCONT .Q10H [facility] Last Admin: 08/15/21 13:57 Dose: 100 mls/hr Documented by: ANNA MARIE Insulin Glargine (Insulin Glargine,Hum.Rec.Anlog 100 Unit/Ml 10 Ml Vial) 54 unit SUBCUT BID [facility] Last Admin: 08/15/21 10:29 Dose: Not Given Documented by: ANNA MARIE Non-Admin Reason: NPO Insulin Human Lispro (Insulin Lispro 100 Unit/Ml 3 Ml Vial) 15 unit SUBCUT DAILY@1200 [facility] Last Admin: 08/15/21 13:19 Dose: Not Given Documented by: ANNA MARIE Non-Admin Reason: NPO Insulin Human Lispro (Insulin Lispro 100 Unit/Ml 3 Ml Vial) 20 unit SUBCUT DAILY@0900,1700 [facility] Last Admin: 08/15/21 10:29 Dose: Not Given Documented by: ANNA MARIE Non-Admin Reason: NPO Levothyroxine Sodium (Levothyroxine Sodium 200 Mcg Tablet) 200 mcg PO KELLEY Y@0630 [facility] Last Admin: 08/15/21 06:27 Dose: 200 mcg Documented by: COLTON-APRIL Lisinopril (Lisinopril 20 Mg Tablet) 20 mg PO DAILY [facility]; Protocol Last Admin: 08/15/21 09:19 Dose: 20 mg Documented by: ANNA MARIE Loratadine (Loratadine 10 Mg Tablet) 10 mg PO DAILY [facility] Last Admin: 08/15/21 09:19 Dose: 10 mg Documented by: ANNA MARIE Morphine Sulfate (Morphine Sulfate 4 Mg/Ml Cartridge) 4 mg IVPUSH Q4H PRN; Protocol PRN Reason: Pain, Severe (Pain Scale 7-10) Last Admin: 08/15/21 14:04 Dose: 4 mg Documented by: ANNA MARIE Omeprazole (Omeprazole 20 Mg Capsule.Dr) 20 mg PO BID [facility] Last Admin: 08/15/21 09:19 Dose: 20 mg Documented by: ANNA MARIE Ondansetron HCl (Ondansetron Hcl 4 Mg/2 Ml Vial) 4 mg IVPUSH Q8H PRN PRN Reason: Nausea and Vomiting Last Admin: 08/14/21 05:31 Dose: 4 mg Documented by: CHRIS Ondansetron HCl (Ondansetron Hcl 4 Mg/2 Ml Vial) 4 mg IVPUSH ONCE PRN PRN Reason: Nausea and Vomiting Oxycodone HCl (Oxycodone Hcl Immed Release 5 Mg Tablet) 10 mg PO ONCE PRN PRN Reason: Pain, Severe (Pain Scale 7-10) Pharmacy Consult (Consult Rx Perform Med Rec) 1 each MISCELLANE ONCE PRN PRN Reason: Consult order Trazodone HCl (Trazodone Hcl 100 Mg Tablet) 300 mg PO BEDTIME PRN PRN Reason: Insomnia Labs CBC & Chem 7: 08/15/21 07:12 08/15/21 08:20 Labs: Laboratory Results - last 24 hr 08/14/21 08/14/21 08/14/21 06:45 16:35 20:51 MCV MCH MCHC RDW Plt Count MPV Immature Gran % (Auto) Neut % (Auto) Lymph % (Auto) [place] % (Auto) Eos % (Auto) Baso % (Auto) Lymph # (Auto) [place] # (Auto) Eos # (Auto) Baso # (Auto) Abs Immat Gran (auto) Absolute Neuts (auto) Absolute Nucleated RBC Nucleated RBC % (auto) Anion Gap Estim Creat Clear Calc Estimated GFR POC Glucose 185 H 119 H Fasting Glucose Calcium Total Bilirubin AST ALT Alkaline Phosphatase Total Protein Albumin Vitamin B12 779 08/15/21 08/15/21 08/15/21 07:12 07:42 08:20 MCV 92.4 MCH 28.8 MCHC 31.1 RDW 15.2 Plt Count 175 MPV 11.9 Immature Gran % (Auto) 0.5 H Neut % (Auto) 74.9 H Lymph % (Auto) 16.0 L [place] % (Auto) 8.0 Eos % (Auto) 0.5 Baso % (Auto) 0.1 Lymph # (Auto) 2.3 [place] # (Auto) 1.2 Eos # (Auto) 0.1 Baso # (Auto) 0.0 Abs Immat Gran (auto) 0.07 H Absolute Neuts (auto) 10.9 H Absolute Nucleated RBC 0.000 Nucleated RBC % (auto) 0.0 Anion Gap 15 Estim Creat Clear Calc 60.1 Estimated GFR 35 POC Glucose 90 Fasting Glucose 86 Calcium 8.2 L Total Bilirubin 4.0 H AST 90 H ALT 63 H Alkaline Phosphatase 920 H Total Protein 7.2 Albumin 2.5 L Vitamin B12 08/15/21 09:53 MCV MCH MCHC RDW Plt Count MPV Immature Gran % (Auto) Neut % (Auto) Lymph % (Auto) [place] % (Auto) Eos % (Auto) Baso % (Auto) Lymph # (Auto) [place] # (Auto) Eos # (Auto) Baso # (Auto) Abs Immat Gran (auto) Absolute Neuts (auto) Absolute Nucleated RBC Nucleated RBC % (auto) Anion Gap Estim Creat Clear Calc Estimated GFR POC Glucose 85 Fasting Glucose Calcium Total Bilirubin AST ALT Alkaline Phosphatase Total Protein Albumin Vitamin B12 Microbiology Microbiology Results: Microbiology 08/13/21 21:34 Urine Culture - Preliminary Urine Catheterized - Calloway Catheter Gram negative janee 08/13/21 19:43 Blood Culture - Preliminary Blood - Venous No growth after 24 hours. 08/13/21 18:19 Blood Culture - Preliminary Blood - Venous No growth after 24 hours. Assessment and Plan (1) Choledocholithiasis: Status: Acute (2) Hydroureteronephrosis: Status: Acute Plan 51-year-old female with past medical history of diabetes as well as hypertension presents to the hospital with complaints of severe abdominal pain found to have cholecystitis as well as pyelonephritis 1.Abdominal pain - likely secondary to choledocholithiasis / possible cholangitis - unable to do MRCP; HIDA scan in a.m. -continue cefepime and metronidazole 2. Acute pyelonephritis - WBC improved;Continue Cefepime and flagyl -preliminary urine culture Gram-negative rods - ID consult 3.Hydroureteronephrosis - secondary to above - IV fluids - urology consult 4.Diabetes -continue home insulin -diabetic diet -will add low-dose sliding scale insulin 5.Hypertension - stable - continue home medication DVT prophylaxis: SCDs in the setting of possible intervention as well as MRCP Will require 2 midnights going forward for IV antibiotics for treatment of pyelonephritis Quality Stroke Does the patient have a stroke diagnosis?: No VTE Prior VTE?: No VTE Risk Level:: Medical - moderate - high VTE Device Contraindication: N/A - Device Ordered VTE Drug Contraindication: Treatment Not Indicated
[2021-08-15] MEDS: clonazePAM 0.5 MG TABLET 0.75 MG PO (16:44)
[2021-08-15 18:08] LABS: Glucose, Whole Blood 185 mg/dL (60-115)
[2021-08-15] MEDS: Insulin Lispro 100 UNIT/ML 3 ML VIAL 20 UNIT SUBCUT (19:00)
[2021-08-15 20:04] LABS: Glucose, Whole Blood 245 mg/dL (60-115)
[2021-08-15] MEDS: Atorvastatin Calcium 80 MG TABLET PO (20:55)
[2021-08-15] MEDS: Insulin Glargine,Hum.rec.anlog 100 UNIT/ML 10 ML VIAL 54 UNIT SUBCUT (20:55)
[2021-08-15] MEDS: traZODone HCL 100 MG TABLET 300 MG PO (20:59)
[2021-08-16] VITALS (8 sets, daily range): BP systolic 126–173; BP diastolic 56–80; PULSE 67–94; RESP 17–20; TEMP 36.2–36.8; O2SAT 90–94
[2021-08-16] MEDS: cefEPime HCl 2 GM in 0.9 % Sodium Chloride 50 ML IV ×3 (04:05→19:15)
[2021-08-16] MEDS: Morphine Sulfate 4 MG/ML CARTRIDGE IVPUSH ×3 (04:06→17:37)
[2021-08-16] MEDS: Lactated Ringers 1,000 ML 100 ML IVCONT (04:48)
[2021-08-16] MEDS: metroNIDAZOLE/NS 500 MG/100 ML PIGGYBACK 100 MG IV ×3 (04:48→19:55)
[2021-08-16 05:48] LABS: MANUAL DIFF FLAG NO
[2021-08-16 05:52] LABS: Basophils Percent Auto 0.1 % (0-2); Hematocrit 28.9 % (37.0-47.0); Hemoglobin 9.3 g/dl (12.0-16.0); Imm Gran Abs Auto 0.09 X10*3/uL (0.00-0.03); Imm Gran Pct Auto 0.6 % (0.0-0.4); Lymphocytes Absolute Auto 1.2 X10*3/uL (1.2-4.9); Lymphocytes Percent Auto 8.1 % (20-40); Mean Corpuscular HGB Conc 32.2 g/dl (31.0-35.0); Mean Corpuscular Hemoglobin 28.4 pg (27.0-33.0); Mean Corpuscular Volume 88.4 fL (80.0-98.0); Mean Platelet Volume 11.4 fL (9.4-12.3); Monocytes Absolute Auto 0.7 X10*3/uL (0.1-1.2); Monocytes Percent Auto 4.7 % (2-11); Neutrophils Absolute Auto 12.5 x10*3/uL (2.0-8.3); Neutrophils Percent Auto 86.5 % (45-73); Platelet Count 214 X10*3/uL (160-400); Red Blood Count 3.27 X10*6/uL (4.20-5.50); White Blood Count 14.4 X10*3/uL (4.8-10.8)
[2021-08-16 06:16] LABS: Alanine Aminotransferase 56 U/L (0-31); Albumin Level 2.3 g/dL (3.5-5.0); Alkaline Phosphatase 965 U/L (39-117); Anion Gap 13 (12-20); Aspartate Amino Transferase 83 U/L (5-31); Bilirubin Total 3.2 mg/dL (0.0-1.0); Blood Urea Nitrogen 34 mg/dL (9-16); Calcium 7.9 mg/dL (8.4-10.2); Carbon Dioxide 20 mmol/L (22-29); Chloride 103 mmol/L (96-108); Creatinine Clr Calc Pharmacy 56.8; Estimated Glomerular Filt Rate 33; Glucose Fasting 293 mg/dL (60-99); Potassium 4.3 mmol/L (3.3-5.1); Sodium 132 mmol/L (135-145); Total Protein 6.4 g/dL (6.5-8.0)
[2021-08-16] MEDS: Levothyroxine Sodium 200 MCG TABLET PO (06:23)
--- NOTE | 2021-08-16 06:39 | HO.POSTANES ---
Post Anesthesia Evaluation Post Anesthesia Evaluation Vital Signs: Vital Signs Temp Pulse Resp BP Pulse Ox 08/16/21 03:30 97.7 F 77 20 126/56 L 90 L 08/15/21 23:12 97.7 F 78 16 135/72 92 08/15/21 19:38 98.7 F 83 18 176/87 H 96 Anesthesia: Monitored Mental Status: Awake Pain Control: Satisfactory Nausea/Vomiting: None Hydration: Adequate Anesthesia-Related Issues: No Anes. Related Issues
[2021-08-16 07:52] LABS: Glucose, Whole Blood 283 mg/dL (60-115)
[2021-08-16] MEDS: Insulin Glargine,Hum.rec.anlog 100 UNIT/ML 10 ML VIAL 54 UNIT SUBCUT ×2 (08:13→20:35)
[2021-08-16] MEDS: Aspirin Enteric Coated 81 MG TABLET.DR PO (08:17)
[2021-08-16] MEDS: Buprenorphine/Naloxone 8/2 mg FILM 1 FILM SUBLINGUAL ×3 (08:17→20:35)
[2021-08-16] MEDS: Omeprazole 20 MG CAPSULE.DR PO ×2 (08:18→20:35)
[2021-08-16] MEDS: Gabapentin 600 MG TABLET PO ×3 (08:18→20:35)
[2021-08-16] MEDS: FLUoxetine HCl 20 MG CAPSULE 60 MG PO (08:18)
[2021-08-16] MEDS: Loratadine 10 MG TABLET PO (08:19)
[2021-08-16] MEDS: hydroCHLOROthiazide 25 MG TABLET PO (08:19)
[2021-08-16] MEDS: lisinopriL 20 MG TABLET PO (08:19)
[2021-08-16] MEDS: clonazePAM 0.5 MG TABLET 0.75 MG PO (08:42)
[2021-08-16 11:08] LABS: Glucose, Whole Blood 268 mg/dL (60-115)
--- NOTE | 2021-08-16 11:49 | HO.PM.IMPN ---
Subjective Subjective Date of Service: 08/16/21 Interval History: Continues with mild right upper quadrant right flank pain ; underwent stenting by Dr. Reed this a.m. Review of Systems Denies chest pain Denies shortness of breath Admits to nausea without vomiting no diarrhea Admits to right upper quadrant right flank pain that is constant in nature Physical Exam Vital Signs: Vital Signs: Last Vital Signs Temp 97.9 F 08/16/21 10:51 Pulse 94 08/16/21 10:51 Resp 18 08/16/21 10:51 BP 139/72 08/16/21 10:51 Pulse Ox 94 08/16/21 10:51 BMI result Body Mass Index 50.1 Const: Other: Awake alert; uncomfortable due to the pain Resp: Other: Clear to auscultation bilaterally no rales rhonchi or wheezes Cardio: Other: No S4; positive S1-S2; no S3 murmurs rubs or gallops GI: Other: Mild right upper quadrant pain to palpation; mild voluntary guarding without rebound. Bowel sounds quiet Extrem: Other: No edema bilaterally Objective Data Active Medications Acetaminophen (Acetaminophen 325 Mg Tablet) 650 mg PO Q6H PRN PRN Reason: Pain, Mild (Pain Scale 1-3) Albuterol Sulfate (Albuterol Sulfate 90 Mcg 8 Gm Inhaler) 2 puff INHALE RQ4H PRN PRN Reason: wheezing Aspirin (Aspirin Enteric Coated 81 Mg Tablet.) 81 mg PO DAILY [facility] Last Admin: 08/16/21 08:17 Dose: 81 mg Documented by: ANNA Atorvastatin Calcium (Atorvastatin Calcium 80 Mg Tablet) 80 mg PO BEDTIME [facility] Last Admin: 08/15/21 20:55 Dose: 80 mg Documented by: LEXA Buprenorphine/Naloxone (Buprenorphine/Naloxone 8/2 Mg Film) 1 film SUBLINGUAL TID [facility] Last Admin: 08/16/21 08:17 Dose: 1 film Documented by: ANNA Clonazepam (Clonazepam 0.5 Mg Tablet) 0.75 mg PO DAILY PRN PRN Reason: Anxiety Last Admin: 08/16/21 08:42 Dose: 0.75 mg Documented by: ANNA Fentanyl (Fentanyl Citrate/Pf 100 Mcg/2 Ml Vial) 50 mcg IVPUSH Q5M PRN; Protocol PRN Reason: Pain, Severe (Pain Scale 7-10) Fluoxetine HCl (Fluoxetine Hcl 20 Mg Capsule) 60 mg PO DAILY [facility] Last Admin: 08/16/21 08:18 Dose: 60 mg Documented by: ANNA Gabapentin (Gabapentin 600 Mg Tablet) 600 mg PO TID [facility] Last Admin: 08/16/21 08:18 Dose: 600 mg Documented by: ANNA Hydrochlorothiazide (Hydrochlorothiazide 25 Mg Tablet) 25 mg PO DAILY [facility]; Protocol Last Admin: 08/16/21 08:19 Dose: 25 mg Documented by: ANNA Metronidazole (Flagyl) 500 mg in 100 mls @ 100 mls/hr IV Q8H [facility] Last Infusion: 08/16/21 05:49 Dose: 0 mls/hr Documented by: CHRIS Lactated Ringer's (Lr) 1,000 mls @ 100 mls/hr IVCONT .Q10H [facility] Last Infusion: 08/16/21 05:49 Dose: 100 mls/hr Documented by: CHRIS Cefepime HCl 2 gm/ Sodium (Chloride) 50 mls @ 100 mls/hr IV Q8H [facility] Last Admin: 08/16/21 11:05 Dose: 100 mls/hr Documented by: ANNA Insulin Glargine (Insulin Glargine,Hum.Rec.Anlog 100 Unit/Ml 10 Ml Vial) 54 unit SUBCUT BID [facility] Last Admin: 08/16/21 08:13 Dose: 54 unit Documented by: ANNA Insulin Human Lispro (Insulin Lispro 100 Unit/Ml 3 Ml Vial) 15 unit SUBCUT DAILY@1200 [facility] Last Admin: 08/15/21 13:19 Dose: Not Given Documented by: ANNA MARIE Non-Admin Reason: NPO Insulin Human Lispro (Insulin Lispro 100 Unit/Ml 3 Ml Vial) 20 unit SUBCUT DAILY@0900,1700 [facility] Last Admin: 08/16/21 08:20 Dose: Not Given Documented by: ANNA Non-Admin Reason: No Insulin Coverage Levothyroxine Sodium (Levothyroxine Sodium 200 Mcg Tablet) 200 mcg PO DAILY@0630 [facility] Last Admin: 08/16/21 06:23 Dose: 200 mcg Documented by: CHRIS Lisinopril (Lisinopril 20 Mg Tablet) 20 mg PO DAILY [facility]; Protocol Last Admin: 08/16/21 08:19 Dose: 20 mg Documented by: ANNA Loratadine (Loratadine 10 Mg Tablet) 10 mg PO DAILY [facility] Last Admin: 08/16/21 08:19 Dose: 10 mg Documented by: ANNA Morphine Sulfate (Morphine Sulfate 4 Mg/Ml Cartridge) 4 mg IVPUSH Q4H PRN; Protocol PRN Reason: Pain, Severe (Pain Scale 7-10) Last Admin: 08/16/21 11:03 Dose: 4 mg Documented by: ANNA Omeprazole (Omeprazole 20 Mg Capsule.Dr) 20 mg PO BID [facility] Last Admin: 08/16/21 08:18 Dose: 20 mg Documented by: ANNA Ondansetron HCl (Ondansetron Hcl 4 Mg/2 Ml Vial) 4 mg IVPUSH Q8H PRN PRN Reason: Nausea and Vomiting Last Admin: 08/14/21 05:31 Dose: 4 mg Documented by: CHRIS Ondansetron HCl (Ondansetron Hcl 4 Mg/2 Ml Vial) 4 mg IVPUSH ONCE PRN PRN Reason: Nausea and Vomiting Oxycodone HCl (Oxycodone Hcl Immed Release 5 Mg Tablet) 10 mg PO ONCE PRN PRN Reason: Pain, Severe (Pain Scale 7-10) Pharmacy Consult (Consult Rx Perform Med Rec) 1 each MISCELLANE ONCE PRN PRN Reason: Consult order Trazodone HCl (Trazodone Hcl 100 Mg Tablet) 300 mg PO BEDTIME PRN PRN Reason: Insomnia Last Admin: 08/15/21 20:59 Dose: 300 mg Documented by: LEXA Labs CBC & Chem 7: 08/16/21 05:29 08/16/21 05:29 Labs: Laboratory Results - last 24 hr 08/13/21 08/14/21 08/15/21 15:50 06:45 07:12 WBC 27.6 H 24.7 H 14.5 H MCV MCH MCHC RDW Plt Count MPV Immature Gran % (Auto) Neut % (Auto) Lymph % (Auto) [place] % (Auto) Eos % (Auto) Baso % (Auto) Lymph # (Auto) [place] # (Auto) Eos # (Auto) Baso # (Auto) Abs Immat Gran (auto) Absolute Neuts (auto) Absolute Nucleated RBC Nucleated RBC % (auto) Anion Gap Estim Creat Clear Calc Estimated GFR POC Glucose Fasting Glucose Calcium Total Bilirubin AST ALT Alkaline Phosphatase Total Protein Albumin 08/15/21 08/15/21 08/16/21 18:02 19:59 05:29 WBC 14.4 H MCV 88.4 MCH 28.4 MCHC 32.2 RDW 15.0 Plt Count 214 MPV 11.4 Immature Gran % (Auto) 0.6 H Neut % (Auto) 86.5 H Lymph % (Auto) 8.[address] % (Auto) 4.7 Eos % (Auto) 0.0 Baso % (Auto) 0.1 Lymph # (Auto) 1.2 [place] # (Auto) 0.7 Eos # (Auto) 0.0 Baso # (Auto) 0.0 Abs Immat Gran (auto) 0.09 H Absolute Neuts (auto) 12.5 H Absolute Nucleated RBC 0.000 Nucleated RBC % (auto) 0.0 Anion Gap Estim Creat Clear Calc Estimated GFR POC Glucose 185 H 245 H Fasting Glucose Calcium Total Bilirubin AST ALT Alkaline Phosphatase Total Protein Albumin 08/16/21 08/16/21 08/16/21 05:29 07:43 10:49 WBC MCV MCH MCHC RDW Plt Count MPV Immature Gran % (Auto) Neut % (Auto) Lymph % (Auto) [place] % (Auto) Eos % (Auto) Baso % (Auto) Lymph # (Auto) [place] # (Auto) Eos # (Auto) Baso # (Auto) Abs Immat Gran (auto) Absolute Neuts (auto) Absolute Nucleated RBC Nucleated RBC % (auto) Anion Gap 13 Estim Creat Clear Calc 56.8 Estimated GFR 33 POC Glucose 283 H 268 H Fasting Glucose 293 H Calcium 7.9 L Total Bilirubin 3.2 H AST 83 H ALT 56 H Alkaline Phosphatase 965 H Total Protein 6.4 L Albumin 2.3 L Microbiology Microbiology Results: Microbiology 08/15/21 Unknown Urine Culture - Final Urine Other - Kidney Right No growth. 08/13/21 21:34 Urine Culture - Final Urine Catheterized - Calloway Catheter Escherichia coli 08/13/21 19:43 Blood Culture - Preliminary Blood - Venous No growth after 48 hours. 08/13/21 18:19 Blood Culture - Preliminary Blood - Venous No growth after 48 hours. Assessment and Plan (1) Choledocholithiasis: Status: Acute (2) Pyelonephritis: Status: Acute (3) Elevated LFTs: Status: Acute Plan 51-year-old female with past medical history of diabetes as well as hypertension presents to the hospital with complaints of severe abdominal pain found to have cholecystitis as well as pyelonephritis;S/Pureteral stent 08/15. Improving 1.Abdominal pain - likely secondary to choledocholithiasis / possible cholangitis - unable to do MRCP; HIDA scan today -continue cefepime and metronidazole 2. Acute pyelonephritis - WBC improved;Continue Cefepime and flagyl -preliminary urine culture Gram-negative rods - ID consult 3.Hydroureteronephrosis - secondary to above - IV fluids - stent in..doing well 4.Diabetes -continue home insulin -diabetic diet -will add low-dose sliding scale insulin 5.Hypertension - stable - continue home medication DVT prophylaxis: SCDs in the setting of possible intervention as well as MRCP Will require at least 1 midnights going forward for IV antibiotics for treatment of pyelonephritis awaiting HIDA scan Quality Stroke Does the patient have a stroke diagnosis?: No VTE Prior VTE?: No VTE Risk Level:: Medical - moderate - high VTE Device Contraindication: N/A - Device Ordered VTE Drug Contraindication: Treatment Not Indicated
--- NOTE | 2021-08-16 14:53 | P.PNIM_ITS ---
Subjective Subjective Date of Service: 08/16/21 Interval History: Continues with mild right upper quadrant right flank pain ; underwent stenting by Dr. Reed this a.m. Review of Systems Denies chest pain Denies shortness of breath Admits to nausea without vomiting no diarrhea Admits to right upper quadrant right flank pain that is constant in nature Physical Exam Vital Signs: Vital Signs: Last Vital Signs Temp 98.3 F 08/16/21 12:00 Pulse 69 08/16/21 12:00 Resp 18 08/16/21 12:00 BP 128/72 08/16/21 12:00 Pulse Ox 92 08/16/21 12:00 BMI result Body Mass Index 50.1 Const: Other: Awake alert; uncomfortable due to the pain Resp: Other: Clear to auscultation bilaterally no rales rhonchi or wheezes Cardio: Other: No S4; positive S1-S2; no S3 murmurs rubs or gallops GI: Other: Mild right upper quadrant pain to palpation; mild voluntary guarding without rebound. Bowel sounds quiet Extrem: Other: No edema bilaterally Objective Data Active Medications Acetaminophen (Acetaminophen 325 Mg Tablet) 650 mg PO Q6H PRN PRN Reason: Pain, Mild (Pain Scale 1-3) Albuterol Sulfate (Albuterol Sulfate 90 Mcg 8 Gm Inhaler) 2 puff INHALE RQ4H PRN PRN Reason: wheezing Aspirin (Aspirin Enteric Coated 81 Mg Tablet.) 81 mg PO DAILY [facility] Last Admin: 08/16/21 08:17 Dose: 81 mg Documented by: ANNA Atorvastatin Calcium (Atorvastatin Calcium 80 Mg Tablet) 80 mg PO BEDTIME [facility] Last Admin: 08/15/21 20:55 Dose: 80 mg Documented by: LEXA Buprenorphine/Naloxone (Buprenorphine/Naloxone 8/2 Mg Film) 1 film SUBLINGUAL TID [facility] Last Admin: 08/16/21 08:17 Dose: 1 film Documented by: ANNA Clonazepam (Clonazepam 0.5 Mg Tablet) 0.75 mg PO DAILY PRN PRN Reason: Anxiety Last Admin: 08/16/21 08:42 Dose: 0.75 mg Documented by: ANNA Fentanyl (Fentanyl Citrate/Pf 100 Mcg/2 Ml Vial) 50 mcg IVPUSH Q5M PRN; Protocol PRN Reason: Pain, Severe (Pain Scale 7-10) Fluoxetine HCl (Fluoxetine Hcl 20 Mg Capsule) 60 mg PO DAILY [facility] Last Admin: 08/16/21 08:18 Dose: 60 mg Documented by: ANNA Gabapentin (Gabapentin 600 Mg Tablet) 600 mg PO TID [facility] Last Admin: 08/16/21 08:18 Dose: 600 mg Documented by: ANNA Hydrochlorothiazide (Hydrochlorothiazide 25 Mg Tablet) 25 mg PO DAILY [facility]; Protocol Last Admin: 08/16/21 08:19 Dose: 25 mg Documented by: ANNA Metronidazole (Flagyl) 500 mg in 100 mls @ 100 mls/hr IV Q8H [facility] Last Admin: 08/16/21 13:14 Dose: 100 mls/hr Documented by: ANNA Lactated Ringer's (Lr) 1,000 mls @ 100 mls/hr IVCONT .Q10H [facility] Last Infusion: 08/16/21 05:49 Dose: 100 mls/hr Documented by: CHRIS Cefepime HCl 2 gm/ Sodium (Chloride) 50 mls @ 100 mls/hr IV Q8H [facility] Last Infusion: 08/16/21 12:13 Dose: 0 mls/hr Documented by: ANNA Insulin Glargine (Insulin Glargine,Hum.Rec.Anlog 100 Unit/Ml 10 Ml Vial) 54 unit SUBCUT BID [facility] Last Admin: 08/16/21 08:13 Dose: 54 unit Documented by: ANNA Insulin Human Lispro (Insulin Lispro 100 Unit/Ml 3 Ml Vial) 15 unit SUBCUT DAILY@1200 [facility] Last Admin: 08/16/21 12:52 Dose: Not Given Documented by: ANNA Non-Admin Reason: NPO Insulin Human Lispro (Insulin Lispro 100 Unit/Ml 3 Ml Vial) 20 unit SUBCUT DAILY@0900,1700 [facility] Last Admin: 08/16/21 08:20 Dose: Not Given Documented by: ANNA Non-Admin Reason: No Insulin Coverage Levothyroxine Sodium (Levothyroxine Sodium 200 Mcg Tablet) 200 mcg PO DAILY@0630 [facility] Last Admin: 08/16/21 06:23 Dose: 200 mcg Documented by: CHRIS Lisinopril (Lisinopril 20 Mg Tablet) 20 mg PO DAILY [facility]; Protocol Last Admin: 08/16/21 08:19 Dose: 20 mg Documented by: ANNA Loratadine (Loratadine 10 Mg Tablet) 10 mg PO DAILY [facility] Last Admin: 08/16/21 08:19 Dose: 10 mg Documented by: ANNA Morphine Sulfate (Morphine Sulfate 4 Mg/Ml Cartridge) 4 mg IVPUSH Q4H PRN; Protocol PRN Reason: Pain, Severe (Pain Scale 7-10) Last Admin: 08/16/21 11:03 Dose: 4 mg Documented by: ANNA Omeprazole (Omeprazole 20 Mg Capsule.Dr) 20 mg PO BID [facility] Last Admin: 08/16/21 08:18 Dose: 20 mg Documented by: ANNA Ondansetron HCl (Ondansetron Hcl 4 Mg/2 Ml Vial) 4 mg IVPUSH Q8H PRN PRN Reason: Nausea and Vomiting Last Admin: 08/14/21 05:31 Dose: 4 mg Documented by: CHRIS Ondansetron HCl (Ondansetron Hcl 4 Mg/2 Ml Vial) 4 mg IVPUSH ONCE PRN PRN Reason: Nausea and Vomiting Oxycodone HCl (Oxycodone Hcl Immed Release 5 Mg Tablet) 10 mg PO ONCE PRN PRN Reason: Pain, Severe (Pain Scale 7-10) Pharmacy Consult (Consult Rx Perform Med Rec) 1 each MISCELLANE ONCE PRN PRN Reason: Consult order Trazodone HCl (Trazodone Hcl 100 Mg Tablet) 300 mg PO BEDTIME PRN PRN Reason: Insomnia Last Admin: 08/15/21 20:59 Dose: 300 mg Documented by: LEXA Labs CBC & Chem 7: 08/16/21 05:29 08/16/21 05:29 Labs: Laboratory Results - last 24 hr 08/13/21 08/14/21 08/15/21 15:50 06:45 07:12 WBC 27.6 H 24.7 H 14.5 H MCV MCH MCHC RDW Plt Count MPV Immature Gran % (Auto) Neut % (Auto) Lymph % (Auto) [place] % (Auto) Eos % (Auto) Baso % (Auto) Lymph # (Auto) [place] # (Auto) Eos # (Auto) Baso # (Auto) Abs Immat Gran (auto) Absolute Neuts (auto) Absolute Nucleated RBC Nucleated RBC % (auto) Anion Gap Estim Creat Clear Calc Estimated GFR POC Glucose Fasting Glucose Calcium Total Bilirubin AST ALT Alkaline Phosphatase Total Protein Albumin 08/15/21 08/15/21 08/16/21 18:02 19:59 05:29 WBC 14.4 H MCV 88.4 MCH 28.4 MCHC 32.2 RDW 15.0 Plt Count 214 MPV 11.4 Immature Gran % (Auto) 0.6 H Neut % (Auto) 86.5 H Lymph % (Auto) 8.1 L [place] % (Auto) 4.7 Eos % (Auto) 0.0 Baso % (Auto) 0.1 Lymph # (Auto) 1.2 [place] # (Auto) 0.7 Eos # (Auto) 0.0 Baso # (Auto) 0.0 Abs Immat Gran (auto) 0.09 H Absolute Neuts (auto) 12.5 H Absolute Nucleated RBC 0.000 Nucleated RBC % (auto) 0.0 Anion Gap Estim Creat Clear Calc Estimated GFR POC Glucose 185 H 245 H Fasting Glucose Calcium Total Bilirubin AST ALT Alkaline Phosphatase Total Protein Albumin 08/16/21 08/16/21 08/16/21 05:29 07:43 10:49 WBC MCV MCH MCHC RDW Plt Count MPV Immature Gran % (Auto) Neut % (Auto) Lymph % (Auto) [place] % (Auto) Eos % (Auto) Baso % (Auto) Lymph # (Auto) [place] # (Auto) Eos # (Auto) Baso # (Auto) Abs Immat Gran (auto) Absolute Neuts (auto) Absolute Nucleated RBC Nucleated RBC % (auto) Anion Gap 13 Estim Creat Clear Calc 56.8 Estimated GFR 33 POC Glucose 283 H 268 H Fasting Glucose 293 H Calcium 7.9 L Total Bilirubin 3.2 H AST 83 H ALT 56 H Alkaline Phosphatase 965 H Total Protein 6.4 L Albumin 2.3 L Microbiology Microbiology Results: Microbiology 08/15/21 Unknown Urine Culture - Final Urine Other - Kidney Right No growth. 08/13/21 21:34 Urine Culture - Final Urine Catheterized - Calloway Catheter Escherichia coli 08/13/21 19:43 Blood Culture - Preliminary Blood - Venous No growth after 48 hours. 08/13/21 18:19 Blood Culture - Preliminary Blood - Venous No growth after 48 hours. Assessment and Plan (1) Choledocholithiasis: Status: Acute (2) Hydroureteronephrosis: Status: Acute Plan 51-year-old female with past medical history of diabetes as well as hyp ertension presents to the hospital with complaints of severe abdominal pain found to have cholecystitis as well as pyelonephritis;S/Pureteral stent 08/15. Improving 1.Abdominal pain - likely secondary to choledocholithiasis / possible cholangitis - unable to do MRCP; HIDA scan today -continue cefepime and metronidazole 2. Acute pyelonephritis - WBC improved;Continue Cefepime and flagyl -preliminary urine culture Gram-negative rods - ID consult 3.Hydroureteronephrosis - secondary to above - IV fluids - stent in..doing well 4.Diabetes -continue home insulin -diabetic diet -will add low-dose sliding scale insulin 5.Hypertension - stable - continue home medication DVT prophylaxis: SCDs in the setting of possible intervention as well as MRCP Will require at least 1 midnights going forward for IV antibiotics for treatment of pyelonephritis awaiting HIDA scan Quality Stroke Does the patient have a stroke diagnosis?: No VTE Prior VTE?: No VTE Risk Level:: Medical - moderate - high VTE Device Contraindication: N/A - Device Ordered VTE Drug Contraindication: Treatment Not Indicated
--- NOTE | 2021-08-16 16:08 | MHC.CM.PN ---
PLAN IS FOR HIDA SCAN DC PLANS FOR SUNDAY
[2021-08-16 17:21] LABS: Glucose, Whole Blood 203 mg/dL (60-115)
[2021-08-16] MEDS: Insulin Lispro 100 UNIT/ML 3 ML VIAL 20 UNIT SUBCUT (17:29)
[2021-08-16] MEDS: oxyCODONE HCl Immed Release 5 MG TABLET 10 MG PO (19:14)
[2021-08-16 20:20] LABS: Glucose, Whole Blood 176 mg/dL (60-115)
[2021-08-16] MEDS: Atorvastatin Calcium 80 MG TABLET PO (20:35)
[2021-08-16] MEDS: traZODone HCL 100 MG TABLET 300 MG PO (20:39)
[2021-08-16] MEDS: ondansetron HCL 4 MG/2 ML VIAL IVPUSH (22:20)
[2021-08-17] MEDS: Morphine Sulfate 4 MG/ML CARTRIDGE IVPUSH ×4 (00:07→18:30)
[2021-08-17 03:13] VITALS: BP 116/67; PULSE 72; RESP 18; TEMP 37.4; O2SAT 92
[2021-08-17] MEDS: cefEPime HCl 2 GM in 0.9 % Sodium Chloride 50 ML IV ×2 (04:00→13:18)
[2021-08-17] MEDS: metroNIDAZOLE/NS 500 MG/100 ML PIGGYBACK 100 MG IV (04:35)
[2021-08-17] MEDS: Lactated Ringers 1,000 ML 100 ML IVCONT (04:39)
[2021-08-17] MEDS: Levothyroxine Sodium 200 MCG TABLET PO (04:45)
[2021-08-17 06:03] LABS: MANUAL DIFF FLAG NO
[2021-08-17 06:10] LABS: Basophils Percent Auto 0.1 % (0-2); Eosinophils Absolute Auto 0.1 X10*3/uL (0.0-0.4); Eosinophils Percent Auto 0.4 % (0-4); Hematocrit 29.4 % (37.0-47.0); Hemoglobin 9.4 g/dl (12.0-16.0); Imm Gran Abs Auto 0.07 X10*3/uL (0.00-0.03); Imm Gran Pct Auto 0.5 % (0.0-0.4); Lymphocytes Absolute Auto 2.3 X10*3/uL (1.2-4.9); Lymphocytes Percent Auto 16.2 % (20-40); Mean Corpuscular Hemoglobin 28.1 pg (27.0-33.0); Mean Platelet Volume 11.7 fL (9.4-12.3); Monocytes Absolute Auto 0.8 X10*3/uL (0.1-1.2); Neutrophils Absolute Auto 10.8 x10*3/uL (2.0-8.3); Neutrophils Percent Auto 76.8 % (45-73); Platelet Count 219 X10*3/uL (160-400); Red Blood Count 3.34 X10*6/uL (4.20-5.50); Red Cell Distribution Width 15.2 % (11.0-16.0); White Blood Count 14.1 X10*3/uL (4.8-10.8)
[2021-08-17 06:39] LABS: Alanine Aminotransferase 43 U/L (0-31); Albumin Level 2.3 g/dL (3.5-5.0); Alkaline Phosphatase 839 U/L (39-117); Anion Gap 11 (12-20); Aspartate Amino Transferase 49 U/L (5-31); Bilirubin Total 1.6 mg/dL (0.0-1.0); Blood Urea Nitrogen 33 mg/dL (9-16); Calcium 8.2 mg/dL (8.4-10.2); Carbon Dioxide 22 mmol/L (22-29); Chloride 106 mmol/L (96-108); Creatinine Clr Calc Pharmacy 58.2; Estimated Glomerular Filt Rate 34; Glucose Fasting 238 mg/dL (60-99); Potassium 4.3 mmol/L (3.3-5.1); Sodium 135 mmol/L (135-145); Total Protein 6.4 g/dL (6.5-8.0)
[2021-08-17 07:29] VITALS: BP 162/79; PULSE 75; RESP 18; TEMP 36.6; O2SAT 92
[2021-08-17 07:36] LABS: Glucose, Whole Blood 193 mg/dL (60-115)
[2021-08-17] MEDS: Loratadine 10 MG TABLET PO (08:22)
[2021-08-17] MEDS: hydroCHLOROthiazide 25 MG TABLET PO (08:22)
[2021-08-17] MEDS: Buprenorphine/Naloxone 8/2 mg FILM 1 FILM SUBLINGUAL ×2 (08:22→14:37)
[2021-08-17] MEDS: Omeprazole 20 MG CAPSULE.DR PO (08:22)
[2021-08-17] MEDS: Gabapentin 600 MG TABLET PO ×2 (08:22→14:37)
[2021-08-17] MEDS: Aspirin Enteric Coated 81 MG TABLET.DR PO (08:22)
[2021-08-17] MEDS: lisinopriL 20 MG TABLET PO (08:22)
[2021-08-17] MEDS: FLUoxetine HCl 20 MG CAPSULE 60 MG PO (08:22)
[2021-08-17] MEDS: Insulin Lispro 100 UNIT/ML 3 ML VIAL 20 UNIT SUBCUT (08:23)
[2021-08-17] MEDS: Insulin Glargine,Hum.rec.anlog 100 UNIT/ML 10 ML VIAL 54 UNIT SUBCUT (08:23)
[2021-08-17] MEDS: clonazePAM 0.5 MG TABLET 0.75 MG PO (08:53)
[2021-08-17 11:32] VITALS: BP 133/76; PULSE 89; RESP 18; TEMP 36.7; O2SAT 92
--- NOTE | 2021-08-17 11:50 | PM.DS ---
DS: Providers Provider Date of Service: 08/17/21 Date of admission: 08/13/21 21:39 Date of discharge: 08/17/21 Primary care physician: SUGEY Esteban Consults: 08/13/21 21:46 Consult to Gastroenterology Routine Consulting Provider: Aniya Ralph Reason for consultation: choledocholithiasis Has provider been notified: Yes Consult to Urology Routine Consulting Provider: Mihai Reed Reason for consultation: severe hydrouretonephrosis Has provider been notified: Yes 08/15/21 15:46 Consult to Infectious Diseases Routine Consulting Provider: Cindy Rodriguez Reason for consultation: Emphysematous pyelonephritis DS: Diagnosis Discharge Diagnosis (1) Choledocholithiasis: Status: Acute (2) Hydroureteronephrosis: Status: Acute DS: Summary Hospital Course Hospital Course: 51-year-old female with past medical history of diabetes, hyperlipidemia, hypertension, history of kidney stones, as well as obesity presents to the hospital with complaints of abdominal pain? for the past 2 days.? Patient reports the abdominal pain is epigastric, radiating to the right upper quadrant, constant, severe 10/10, relieved with pain medication, associated with nausea and chills.? Patient denies any previous episode.? She poor reports burning sensation when she eats any type of food.? She is also complaining of burning on urination as well as frequency for the past 2 days.? She denies any fever or chills but has flank pain bilaterally.? She has no chest pain, no palpitations, no shortness of breath, no headache or change in vision, no lower extremity edema.? No diarrhea or constipation. ER work up significant for WBC count of 27.6, hemoglobin of 11.5, hematocrit 35.7 which is around her baseline, BUN of 17,? bilirubin of 4, direct 3, AST of 95, ALT of 73, alk-phos of 929, lipase of 257, UA positive for nitrites, leukocyte Estrace, WBC.? 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 Mild heterogeneous CT of right renal parenchyma, bilateral perinephric fat stranding and air in the urinary bladder.? This is concerning for an acute gas-forming bacterial infection.? She also has new severe dilatation of the common bile duct and moderate dilatation of the intrahepatic bile duct.? No definite choledocholithiasis. Hospital Course Patient was admitted to the general medical floor and covered with cefepime and Flagyl. Consult was placed to Infectious Disease who agreed with coverage. She was seen in consultation by Dr. Hardy and subsequently underwent is right ureteral stenting. She tolerated this procedure well. Blood cultures ultimately were negative. Urine culture grew E coli pansensitive. She would be discharged to home to complete a course of oral antibiotics and follow-up with Dr. Reed in the office. Time Spent with Patient Time attestation: Total time spent providing and/or coordinating discharge services: Discharge coordination time: Greater than 30 minutes Quality: Stroke Does the patient have a stroke diagnosis?: No Physical Exam Vital Signs: Vital Signs: Last Vital Signs Temp 97.9 F 08/17/21 07:29 Pulse 75 08/17/21 07:29 Resp 18 08/17/21 07:29 BP 162/79 H 08/17/21 07:29 Pulse Ox 92 08/17/21 07:29 BMI result Body Mass Index 50.1 Const: Other: Awake alert; uncomfortable due to the pain Resp: Other: Clear to auscultation bilaterally no rales rhonchi or wheezes Cardio: Other: No S4; positive S1-S2; no S3 murmurs rubs or gallops GI: Other: Mild right upper quadrant pain to palpation; mild voluntary guarding without rebound. Bowel sounds quiet Extrem: Other: No edema bilaterally DS: Data Data Completed and Pending Labs on day of discharge: Laboratory Results - last 24 hr 08/16/21 08/16/21 08/17/21 17:17 20:10 05:36 WBC 14.1 H RBC 3.34 L Hgb 9.4 L Hct 29.4 L MCV 88.0 MCH 28.1 MCHC 32.0 RDW 15.2 Plt Count 219 MPV 11.7 Immature Gran % (Auto) 0.5 H Neut % (Auto) 76.8 H Lymph % (Auto) 16.2 L [place] % (Auto) 6.0 Eos % (Auto) 0.4 Baso % (Auto) 0.1 Lymph # (Auto) 2.3 [place] # (Auto) 0.8 Eos # (Auto) 0.1 Baso # (Auto) 0.0 Abs Immat Gran (auto) 0.07 H Absolute Neuts (auto) 10.8 H Absolute Nucleated RBC 0.000 Nucleated RBC % (auto) 0.0 Sodium Potassium Chloride Carbon Dioxide Anion Gap BUN Creatinine Estim Creat Clear Calc Estimated GFR POC Glucose 203 H 176 H Fasting Glucose Calcium Total Bilirubin AST ALT Alkaline Phosphatase Total Protein Albumin 08/17/21 08/17/21 05:36 07:28 WBC RBC Hgb Hct MCV MCH MCHC RDW Plt Count MPV Immature Gran % (Auto) Neut % (Auto) Lymph % (Auto) [place] % (Auto) Eos % (Auto) Baso % (Auto) Lymph # (Auto) [place] # (Auto) Eos # (Auto) Baso # (Auto) Abs Immat Gran (auto) Absolute Neuts (auto) Absolute Nucleated RBC Nucleated RBC % (auto) Sodium 135 Potassium 4.3 Chloride 106 Carbon Dioxide 22 Anion Gap 11 L BUN 33 H Creatinine 1.62 H Estim Creat Clear Calc 58.2 Estimated GFR 34 POC Glucose 193 H Fasting Glucose 238 H Calcium 8.2 L Total Bilirubin 1.6 H AST 49 H D ALT 43 H Alkaline Phosphatase 839 H Total Protein 6.4 L Albumin 2.3 L Preliminary micro results at discharge 08/13/21 19:43 Blood Culture - Preliminary Blood - Venous No growth after 48 hours. 08/13/21 18:19 Blood Culture - Preliminary Blood - Venous No growth after 48 hours. Discharge Plan Discharge Patient Disposition: Home, Self-Care Discharge Diagnosis: pyelonephritis Referrals: Ray Cox FNP [Primary Care Provider] - 1 Week Discharge Medications: New cefuroxime axetil 500 mg tablet 500 mg PO BID 10 Days Qty: 20 0RF Continued atorvastatin 80 mg tablet 1 tab PO BEDTIME 0RF gabapentin 600 mg tablet 1 tab PO TID 0RF ibuprofen 800 mg tablet 1 tab PO TID PRN (Reason: pain) 0RF clonazepam 0.5 mg tablet 1.5 tab PO DAILY PRN (Reason: Anxiety) 0RF aspirin 81 mg tablet,delayed release (DR/EC) 1 tab PO DAILY 0RF trazodone 100 mg tablet 1 - 3 tab PO BEDTIME PRN (Reason: Insomnia) 0RF omeprazole 20 mg capsule,delayed release(DR/EC) 1 cap PO BID 0RF lisinopril-hydrochlorothiazide 20-25 mg tablet 1 tab PO DAILY 0RF levothyroxine 200 mcg tablet 1 tab PO DAILY 0RF albuterol sulfate [ProAir HFA] 90 mcg/actuation HFA aerosol inhaler 2 puff PO Q4H PRN (Reason: wheezing) 0RF fluoxetine 20 mg capsule 3 cap PO QAM 0RF insulin lispro [Humalog KwikPen Insulin] 100 unit/mL insulin pen 15 unit subcut DAILY@1200 0RF Rx Instructions: with lunch insulin lispro [Humalog KwikPen Insulin] 100 unit/mL insulin pen 20 unit subcut DAILY@0900,1700 0RF Rx Instructions: give with food Lantus Solostar U-100 Insulin 100 unit/mL (3 mL) insulin pen 54 unit subcut BID 0RF buprenorphine-naloxone [Suboxone] 8-2 mg film 1 strip sublingual TID 0RF loratadine 10 mg tablet 1 tab PO DAILY 0RF Discharge Orders: Discharge Order (Routine); Ordered 08/17/21 Ordered By: Cade Huerta Diet: advance to usual diet Activity on Discharge: As tolerated Stand Alone Forms: Patient Portal Discharge page Care Plan Goals: Complete Ceftin as ordered. Continue all other home meds Health Concerns: Follow-up with Dr. Reed in the office in 1-2 weeks Plan of Treatment: Complete antibiotics and Urology follow-up Assessment: As per discharge summary
[2021-08-17 12:03] LABS: Glucose, Whole Blood 108 mg/dL (60-115)
--- NOTE | 2021-08-17 12:37 | MHC.CM.PN ---
PATIENT TO RETURN HOME WITH RESUMPTION OF HER [employer]. RN AWARE OF PLAN.
[2021-08-17 13:37] LABS: Glucose, Whole Blood 111 mg/dL (60-115)
--- NOTE | 2021-08-17 14:03 | P.CNID_ITS ---
History of Present Illness Data of Consult Service Date: 08/16/21 Requesting physician: Cade Huerta Primary Care Provider: SUGEY Esteban HPI Reason for consult: choledocholithiasis,pyelonephritis concern She presents with RUQ pain ,6/10 to ER over last two days and nausea and vomiting. Abdominal CT shows cholelithiasis patient aware of since fall. She has no fever or chills at this time. Review of Systems Review of Systems: Yes all other systems are reviewed and are negative [facility] Past Medical History Medical History Diabetes type I High cholesterol HTN (hypertension) Kidney stones Family History Family History Mother Coronary artery disease Diabetes Family history: reviewed and not pertinent Surgical History Surgical History No pertinent past surgical history Social History Social History Alcohol intake: former Patient Tobacco Use Status: Current everyday Tobacco user Tobacco use type: Cigarette Cigarettes Per Day: 5 service: No Current occupational status: unemployed Meds Allergies Allergy/AdvReac Type Severity Reaction Status Date / Time canagliflozin [From Invokana] Allergy Rash Verified 11/26/20 18:22 latex Allergy Itching Verified 11/26/20 18:22 Penicillins Allergy Rash Verified 11/26/20 18:22 sitagliptin [From Januvia] Allergy Rash Verified 11/26/20 18:22 Active Medications: Current Medications Acetaminophen (Acetaminophen 325 Mg Tablet) 650 mg PO Q6H PRN PRN Reason: Pain, Mild (Pain Scale 1-3) Albuterol Sulfate (Albuterol Sulfate 90 Mcg 8 Gm Inhaler) 2 puff INHALE RQ4H PRN PRN Reason: wheezing Aspirin (Aspirin Enteric Coated 81 Mg Tablet.) 81 mg PO DAILY [facility] Last Admin: 08/17/21 08:22 Dose: 81 mg Documented by: Atorvastatin Calcium (Atorvastatin Calcium 80 Mg Tablet) 80 mg PO BEDTIME [facility] Last Admin: 08/16/21 20:35 Dose: 80 mg Documented by: Buprenorphine/Naloxone (Buprenorphine/Naloxone 8/2 Mg Film) 1 film SUBLINGUAL TID [facility] Last Admin: 08/17/21 08:22 Dose: 1 film Documented by: Clonazepam (Clonazepam 0.5 Mg Tablet) 0.75 mg PO DAILY PRN PRN Reason: Anxiety Last Admin: 08/17/21 08:53 Dose: 0.75 mg Documented by: Fentanyl (Fentanyl Citrate/Pf 100 Mcg/2 Ml Vial) 50 mcg IVPUSH Q5M PRN; Protocol PRN Reason: Pain, Severe (Pain Scale 7-10) Fluoxetine HCl (Fluoxetine Hcl 20 Mg Capsule) 60 mg PO DAILY [facility] Last Admin: 08/17/21 08:22 Dose: 60 mg Documented by: Gabapentin (Gabapentin 600 Mg Tablet) 600 mg PO TID [facility] Last Admin: 08/17/21 08:22 Dose: 600 mg Documented by: Hydrochlorothiazide (Hydrochlorothiazide 25 Mg Tablet) 25 mg PO DAILY [facility]; Protocol Last Admin: 08/17/21 08:22 Dose: 25 mg Documented by: Metronidazole (Flagyl) 500 mg in 100 mls @ 100 mls/hr IV Q8H [facility] Last Infusion: 08/17/21 05:35 Dose: Infused Documented by: Lactated Ringer's (Lr) 1,000 mls @ 100 mls/hr IVCONT .Q10H [facility] Last Admin: 08/17/21 04:39 Dose: 100 mls/hr Documented by: Cefepime HCl 2 gm/ Sodium (Chloride) 50 mls @ 100 mls/hr IV Q8H [facility] Last Infusion: 08/17/21 13:55 Dose: Infused Documented by: Insulin Glargine (Insulin Glargine,Hum.Rec.Anlog 100 Unit/Ml 10 Ml Vial) 54 unit SUBCUT BID [facility] Last Admin: 08/17/21 08:23 Dose: 54 unit Documented by: Insulin Human Lispro (Insulin Lispro 100 Unit/Ml 3 Ml Vial) 15 unit SUBCUT DAILY@1200 [facility] Last Admin: 08/17/21 13:26 Dose: Not Given Documented by: Insulin Human Lispro (Insulin Lispro 100 Unit/Ml 3 Ml Vial) 20 unit SUBCUT DAILY@0900,1700 [facility] Last Admin: 08/17/21 08:23 Dose: 20 unit Documented by: Levothyroxine Sodium (Levothyroxine Sodium 200 Mcg Tablet) 200 mcg PO DAILY@0630 [facility] Last Admin: 08/17/21 04:45 Dose: 200 mcg Documented by: Lisinopril (Lisinopril 20 Mg Tablet) 20 mg PO DAILY [facility]; Protocol Last Admin: 08/17/21 08:22 Dose: 20 mg Documented by: Loratadine (Loratadine 10 Mg Tablet) 10 mg PO DAILY [facility] Last Admin: 08/17/21 08:22 Dose: 10 mg Documented by: Morphine Sulfate (Morphine Sulfate 4 Mg/Ml Cartridge) 4 mg IVPUSH Q4H PRN; Protocol PRN Reason: Pain, Severe (Pain Scale 7-10) Last Admin: 08/17/21 08:54 Dose: 4 mg Documented by: Omeprazole (Omeprazole 20 Mg Capsule.Dr) 20 mg PO BID [facility] Last Admin: 08/17/21 08:22 Dose: 20 mg Documented by: Ondansetron HCl (Ondansetron Hcl 4 Mg/2 Ml Vial) 4 mg IVPUSH Q8H PRN PRN Reason: Nausea and Vomiting Last Admin: 08/14/21 05:31 Dose: 4 mg Documented by: Pharmacy Consult (Consult Rx Perform Med Rec) 1 each MISCELLANE ONCE PRN PRN Reason: Consult order Trazodone HCl (Trazodone Hcl 100 Mg Tablet) 300 mg PO BEDTIME PRN PRN Reason: Insomnia Last Admin: 08/16/21 20:39 Dose: 300 mg Documented by: Home Medications Medication Instructions Recorded Confirmed Last Taken Type albuterol sulfate 90 mcg/actuation 2 puff PO Q4H PRN 08/13/21 08/13/21 08/12/21 History aerosol inhaler (ProAir HFA) aspirin 81 mg tablet,delayed 1 tab PO DAILY 08/13/21 08/13/21 08/12/21 History release atorvastatin 80 mg tablet 1 tab PO BEDTIME 08/13/21 08/13/21 08/12/21 History buprenorphine 8 mg-naloxone 2 mg 1 strip SUBLINGUAL TID 08/13/21 08/13/21 08/13/21 History sublingual film (Suboxone) clonazepam 0.5 mg tablet 1.5 tab PO DAILY PRN 08/13/21 08/13/21 08/12/21 History fluoxetine 20 mg capsule 3 cap PO QAM 08/13/21 08/13/21 08/12/21 History gabapentin 600 mg tablet 1 tab PO TID 08/13/21 08/13/21 08/12/21 History ibuprofen 800 mg tablet 1 tab PO TID PRN 08/13/21 08/13/21 08/12/21 History insulin glargine 100 unit/mL (3 54 unit SUBCUT BID 08/13/21 08/13/21 08/12/21 History mL) subcutaneous pen (Lantus Solostar U-100 Insulin) insulin lispro 100 unit/mL 15 unit SUBCUT DAILY@1200 08/13/21 08/13/21 08/12/21 History subcutaneous pen (Humalog KwikPen (U-100) Insulin) insulin lispro 100 unit/mL 20 unit SUBCUT DAILY@0900,1700 08/13/21 08/13/21 08/12/21 History subcutaneous pen (Humalog KwikPen (U-100) Insulin) levothyroxine 200 mcg tablet 1 tab PO DAILY 08/13/21 08/13/21 08/12/21 History lisinopril 20 1 tab PO DAILY 08/13/21 08/13/21 08/12/21 History mg-hydrochlorothiazide 25 mg tablet loratadine 10 mg tablet 1 tab PO DAILY 08/13/21 08/13/21 Unknown History omeprazole 20 mg capsule,delayed 1 cap PO BID 08/13/21 08/13/21 08/12/21 History release trazodone 100 mg tablet 1 - 3 tab PO BEDTIME PRN 08/13/21 08/13/21 08/12/21 History Physical Exam Vital Signs: Vital Signs: Last Vital Signs Temp 98.1 F 08/17/21 11:32 Pulse 89 08/17/21 11:32 Resp 18 08/17/21 11:32 BP 133/76 08/17/21 11:32 Pulse Ox 92 08/17/21 11:32 BMI result Body Mass Index 50.1 Const: General: cooperative Eyes: General: appearance normal, both eyes and all related structures Pupils: Equal, round and reactive pupils present Resp: Effort & Inspection: normal respiratory effort Cardio: Rate: regular rate Rhythm: regular rhythm GI: Other: mild RUQ discomfort Skin: General skin exam: no rashes or lesions noted Neuro: Cranial nerves: Yes Equal, round and reactive pupils present Results Labs CBC & Chem 7: 08/17/21 05:36 08/17/21 05:36 Labs: Short CBC 08/17/21 Range/Units 05:36 WBC 14.1 H (4.8-10.8) X10*3/uL Hgb 9.4 L (12.0-16.0) g/dl Hct 29.4 L (37.0-47.0) % Plt Count 219 (160-400) X10*3/uL BMP 08/17/21 05:36 Sodium 135 Potassium 4.3 Chloride 106 Carbon Dioxide 22 BUN 33 H Creatinine 1.62 H Calcium 8.2 L Liver Function 08/17/21 Range/Units 05:36 Total Bilirubin 1.6 H (0.0-1.0) mg/dL AST 49 H D (5-31) U/L ALT 43 H (0-31) U/L Alkaline Phosphatase 839 H (39-117) U/L Albumin 2.3 L (3.5-5.0) g/dL Microbiology Microbiology Results: Microbiology 08/15/21 Unknown Urine Other - Kidney Right Urine Culture - Final No growth. 08/13/21 21:34 Urine Catheterized - Calloway Catheter Urine Culture - Final Escherichia coli 08/13/21 19:43 Blood - Venous Blood Culture - Preliminary No growth after 48 hours. 08/13/21 18:19 Blood - Venous Blood Culture - Preliminary No growth after 48 hours. Assessment and Plan (1) Choledocholithiasis: Status: Acute patient problems are likely more due to cholelithiasis with elevated LFTs. Also she has negative urine and blood cultures Plan Would switch to po Ceftin for 10-14 days Follow Surgery prn need outpatient.
[2021-08-17 16:29] LABS: Glucose, Whole Blood 119 mg/dL (60-115)
--- NOTE | 2021-08-17 16:43 | MHC.CM.PN ---
PER NSG AND PT HER [facility] CANNOT PROVIDE TRANSPORTATION, [facility]AIR [facility] SET UP FOR 1930 THAT IS THE SOONEST THEY CAN TRANSPORT PT, NSG/UNIT AWARE.
== END 2021-08-17 21:09 | disposition home or self-care (01) | DRG 463 ==
LOC: HO.ED 18:51 → HO.EDOVER 21:56 → HO.S3 08-15 07:35
PROVIDERS: Internal Medicine Gastroenterology; Physician Assistant; Urology; Admitting Provider Internal Medicine; Emergency Provider Emergency Medicine Emergency Medical Services; PCP Nurse Practitioner Family; Visit Provider Hospitalist
PROC: 0T768DZ Dilation of Right Ureter with Intraluminal Device, Via Natural or Artificial Opening Endoscopic (ICD-10-PCS; principal; 2021-08-15 17:10)
DX: N13.6 Pyonephrosis (principal); K80.50 Calculus of bile duct without cholangitis or cholecystitis without obstruction; E10.9 Type 1 diabetes mellitus without complications; F17.210 Nicotine dependence, cigarettes, uncomplicated; E78.5 Hyperlipidemia, unspecified; I10 Essential (primary) hypertension; F11.20 Opioid dependence, uncomplicated; E66.01 Morbid (severe) obesity due to excess calories; Z71.6 Tobacco abuse counseling; Z20.822 Contact with and (suspected) exposure to COVID-19; Z88.0 Allergy status to penicillin; Z68.43 Body mass index [BMI] 50.0-59.9, adult; Z91.040 Latex allergy status; Z79.1 Long term (current) use of non-steroidal anti-inflammatories (NSAID); Z79.4 Long term (current) use of insulin; Z79.82 Long term (current) use of aspirin; Z79.890 Hormone replacement therapy; Z79.899 Other long term (current) drug therapy
CPT/HCPCS: 36415; 71046; 74177; 78226; 80048; 80053; 80076; 81001; 82607; 82947; 83605; 83690; 84484; 84702; 85025; 87040; 87086; 87088; 87186; 87635; 93005; 96361; 96374; 96375; 99285; A9537; C1758; C1769; C2617; J0692; J0696; J1100; J1885; J2250; J2270; J2405; J3010; Q9967

== ENCOUNTER 2021-08-18 20:10 | Inpatient (IN) | payer MEDICAID, SELFPAY ==
--- NOTE | ~2021-08-18 | XR_ITS ---
EXAMINATION: XR CHEST CLINICAL INFORMATION: Hypoxia COMPARISON: August 20, 2021 TECHNIQUE: AP portable chest view of the chest was obtained. FINDINGS: There are again noted be bilateral regions of interstitial and airspace disease diffusely. Heart upper limits of normal in size. No pneumothorax or significant pleural effusion. There appears to be some mild improvement of the disease bilaterally. Degenerative change of the right shoulder evident. XR/XR chest 1V IMPRESSION: Mild improvement in bilateral interstitial and airspace disease with appearance of pulmonary edema of cardiogenic or noncardiogenic etiology. Less likely this could be related to atypical or viral pneumonitis.
--- NOTE | ~2021-08-18 | XR_ITS ---
EXAMINATION: XR CHEST CLINICAL INFORMATION: Shortness of breath, hypoxic. COMPARISON: 08/13/2021 chest radiographs. TECHNIQUE: Frontal view of the chest was obtained. FINDINGS: Low lung volumes and suboptimal penetration limit evaluation. Diffuse patchy infiltrates are seen bilaterally. The heart and mediastinal structures are unremarkable. XR/XR chest 1V IMPRESSION: Diffuse bilateral patchy infiltrates are nonspecific, but represents interval worsening from the previous study. This could be cardiogenic however an infectious/inflammatory process cannot be excluded. Correlate clinically.
--- NOTE | ~2021-08-18 | CT_ITS ---
EXAMINATION: CT CHEST WITHOUT CONTRAST CLINICAL INFORMATION: Hypoxia. COMPARISON: Radiograph 08/18/2021 TECHNIQUE: Multidetector volumetric CT imaging of the chest was done. Axial MIP volume rendering provided. Sagittal and coronal reformatted images were obtained. This CT examination was performed using dose optimization techniques as appropriate, variously including the following: *Automated exposure control *Adjustment of mA and/or kV according to patient size (this includes techniques or standardized protocols for targeted exams where dose is matched to indication/reason for exam; i.e. 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 LUNGS: The central airways are patent. Diffuse opacification throughout both lungs with mostly consolidative appearance, although there is mixed and groundglass appearance. Subpleural sparing. Basilar sparing. There is some subpleural reticulation. No pneumothorax. MEDIASTINUM: Prominent heart. No pericardial effusion. Prominent mediastinal lymph nodes are likely reactive. For instance there is an AP window node measuring 1.5 cm short axis. PLEURA: There is no pleural effusion. No pleural mass or thickening. AXILLA: No lymphadenopathy. UPPER ABDOMEN: Unremarkable. OSSEOUS STRUCTURES: No acute or suspicious osseous abnormality. Mild degenerative changes of the spine. CT/CT chest wo IV con IMPRESSION: Diffuse opacification throughout both lungs. The appearance is nonspecific. This could be diffuse infectious process. This may also represent severe interstitial and alveolar edema. ARDS is a consideration. Fleischner guidelines were followed.
--- NOTE | ~2021-08-18 | XR_ITS ---
EXAMINATION: XR CHEST CLINICAL INFORMATION: Pulmonary edema COMPARISON: 08/18/2021 TECHNIQUE: Frontal view of the chest was obtained. FINDINGS: Cardiac leads overlie the chest. The lungs are well expanded. Diffuse bilateral airspace opacities are present. No pleural effusion or pneumothorax. The cardiomediastinal silhouette is within normal limits. Degenerative changes of the shoulders. XR/XR chest 1V IMPRESSION: Similar bilateral diffuse airspace opacities.
[2021-08-18 20:11] VITALS: BP 103/54; BP 81/50; PULSE 76; RESP 14; O2SAT 90; O2SAT 92; BMI 57.4
--- NOTE | 2021-08-18 20:20 | ECG_ITS ---
Test Reason : UNRESPONSIVE Blood Pressure : / mmHG Vent. Rate : 070 BPM Atrial Rate : 070 BPM P-R Int : 152 ms QRS Dur : 088 ms QT Int : 424 ms P-R-T Axes : 031 -09 011 degrees QTc Int : 457 ms Artifact in tracing Normal sinus rhythm Cannot rule out Anterior infarct , age undetermined Abnormal ECG When compared with ECG of 13-AUG-2021 15:45, No significant change was found Referred By: Kasey Morrell Electronically Signed By:CLARITZA ROBERTS
--- NOTE | 2021-08-18 20:22 | ED_ITS ---
HPI - General Adult General Chief complaint: General Medical Stated complaint: Lethargy Time Seen by Provider: 08/18/21 20:19 Source: EMS Mode of arrival: EMS Limitations: no limitations History of Present Illness HPI narrative: Patient comes to the emergency room after being found unresponsive. EMS reports that the tried to wake up the patient, she was unresponsive and cyanotic. Patient was given 8 mg of Narcan, patient eventually did wake up. Patient was recently discharged from the hospital yesterday, patient was here for choledocholithiasis and hydroureteronephrosis. Patient states that she was discharged home with cefuroxime, no narcotics. Patient denies using drugs. Per EMS, patient's oxygen saturation was in the low 60s. Patient was placed on 15 L non-rebreather. On arrival to the emergency room, patient is awake, somnolent, answering questions. On room air patient's oxygen saturation dropped quickly to 70 %, patient was put on non-rebreather again. Patient denies chest pain or shortness of breath, denies any pain. Patient states that she remembers taking a nap and then waking up in the hospital. It does not seem that the patient had any falls. States that she is not sure if she was immunized for COVID but thinks she did not. Related Data Home Medications Medication Instructions Recorded Confirmed albuterol sulfate 90 mcg/actuation 2 puff PO Q4H PRN 08/13/21 08/18/21 aerosol inhaler (ProAir HFA) aspirin 81 mg tablet,delayed 1 tab PO DAILY 08/13/21 08/18/21 release atorvastatin 80 mg tablet 1 tab PO BEDTIME 08/13/21 08/18/21 buprenorphine 8 mg-naloxone 2 mg 1 strip SUBLINGUAL TID 08/13/21 08/18/21 sublingual film (Suboxone) clonazepam 0.5 mg tablet 1 tab PO DAILY PRN 08/13/21 08/18/21 fluoxetine 20 mg capsule 3 cap PO DAILY 08/13/21 08/18/21 gabapentin 600 mg tablet 1 tab PO TID 08/13/21 08/18/21 ibuprofen 800 mg tablet 1 tab PO TID PRN 08/13/21 08/18/21 insulin glargine 100 unit/mL (3 54 unit SUBCUT BID 08/13/21 08/18/21 mL) subcutaneous pen (Lantus Solostar U-100 Insulin) insulin lispro 100 unit/mL 15 unit SUBCUT DAILY@1200 08/13/21 08/18/21 subcutaneous pen (Humalog KwikPen (U-100) Insulin) insulin lispro 100 unit/mL 20 unit SUBCUT DAILY@0900,1700 08/13/21 08/18/21 subcutaneous pen (Humalog KwikPen (U-100) Insulin) levothyroxine 200 mcg tablet 1 tab PO DAILY@0630 08/13/21 08/18/21 lisinopril 20 1 tab PO DAILY 08/13/21 08/18/21 mg-hydrochlorothiazide 25 mg tablet loratadine 10 mg tablet 1 tab PO DAILY 08/13/21 08/18/21 omeprazole 20 mg capsule,delayed 1 cap PO BID@0630,1630 08/13/21 08/18/21 release trazodone 100 mg tablet 1 - 3 tab PO BEDTIME PRN 08/13/21 08/18/21 Previous Rx's Medication Instructions Recorded cefuroxime axetil 500 mg tablet 500 mg PO BID 10 Days #20 tab 08/17/21 Allergies Allergy/AdvReac Type Severity Reaction Status Date / Time canagliflozin [From Invokana] Allergy Rash Verified 11/26/20 18:22 latex Allergy Itching Verified 11/26/20 18:22 Penicillins Allergy Rash Verified 11/26/20 18:22 sitagliptin [From Eyaluvia] Allergy Rash Verified 11/26/20 18:22 Review of Systems Review of Systems: Constitutional : No Weight loss, No Fever, No Chills, No Night Sweats, No Fatigue, No Malaise ENT/Mouth : No Hearing loss, No Ear Pain, No Nasal Congestion, No Sinus Pain, No Hoarseness, No sore throat, No Rhinorrhea, No Swallowing Difficulty Eyes: No Eye Pain, No Swelling, No Redness, No Foreign Body, No Discharge, No Vision Changes Cardiovascular : No Chest Pain, No SOB, No Dyspnea on Exertion, No Orthopnea, No Edema, No Palpitations Respiratory : No Cough, No Sputum, No Wheezing, No Smoke Exposure, No Dyspnea Gastrointestinal : No Nausea, No Vomiting, No Diarrhea, No Constipation, No abdominal Pain, No Hematochezia, No Melena Genitourinary : no irregular bleeding, No Dysuria, No Urinary Frequency, No Levi turia, No Urinary Incontinence, No Urgency, No Flank Pain, No Urinary Flow Changes, No Hesitancy Musculoskeletal : No joint pain, No Myalgias, No Joint Swelling Skin : No Skin Lesions, No rash Neuro : No Weakness, No Numbness, No Paresthesias, No Loss of Consciousness, No Dizziness, No Headache Psych : No Anxiety/Panic, No Depression, No SI/HI/AH/VH, No Social Issues, Heme/Lymph: No Bruising, No Bleeding,No Lymphadenopathy Endocrine : No Polyuria, No Polydipsia, No Temperature Intolerance [facility] Past Medical History Medical History (Updated 08/19/21 @ 01:41 by Kasey Morrell MD) Choledocholithiasis Diabetes type I High cholesterol HTN (hypertension) Hydroureteronephrosis Kidney stones Surgical History No pertinent past surgical history Family History Family History Mother Coronary artery disease Diabetes Social History Social History Alcohol intake: former Patient Tobacco Use Status: Current everyday Tobacco user Tobacco use type: Cigarette Cigarettes Per Day: 5 Advance Directives: No Advance Directives Information Provided: Yes service: No Current occupational status: unemployed Physical Exam ED Vital Signs: Vital Signs - 24 hr 08/18/21 20:11 08/18/21 20:30 08/19/21 01:16 Pulse Rate 76 74 Respiratory Rate 14 19 19 Blood Pressure 81/50 L 98/56 L Pulse Oximetry 92 97 08/19/21 01:26 Pulse Rate 75 Respiratory Rate 14 Blood Pressure 128/69 Pulse Oximetry 94 BMI result Body Mass Index 57.4 Const Other: Appearance: Alert. Oriented X3. No acute distress. Somnolent but easily arousable Eyes: Pupils equal, round and reactive to light. ENT: Pharynx normal. Neck: Normal inspection. Neck supple. No lymph nodes noted. No crepitus CVS: Normal heart rate and rhythm. Pulses normal. Normal S1 and S2 Respiratory: No respiratory distress. Breath sounds normal. No Wheezing. No rales. Oxygen saturation dropped to 70 on room air, patient on 15 L saturating 90% Abdomen: Soft and nontender. No rigidity. No distention. Skin: Skin warm and dry. Normal skin color. Normal skin turgor. Extremities: No Lacerations. No Rash, chronic venous stasis bilaterally, +1 pitting edema bilaterally Neuro: Oriented X 3. No motor deficit. No sensory deficit. Moving all extremities. No slurred speech. CN 2 through 12 grossly intact Psych: calm, cooperative, normal affect Course Course Course Narrative: Due to patient's elevated creatinine, CTA to rule out PE cannot be done. Patient will need a V/Q scan in the morning. In the meantime we will go ahead and order a CT scan with no contrast. Patient's oxygen saturation keeps dropping to the low 80s even on an OxyMask. Patient was switched to high-flow. Patient is now more awake, patient admits using cocaine today. Patient also tested positive for opiates, it is possible that she may have received this medication. Also, patient was found unresponsive, there is a possibility the patient may have aspirated. EMS gave the patient 1 L of normal saline. CT scan pending. Chest x-ray is inconclusive, shows possible cardiogenic process, possible inflammatory process. However, is likely that patient has a viral process, Patient being treated e mpirically with Levaquin, an additional L of fluid was given. Patient's blood pressure has remained above 100 systolic. Lactic acid 1.4. No fever. Sepsis is not suspected. In patient's chart it was documented that the patient's blood pressure is 81/50. Patient's blood pressure is actually 128/69 systolic. Patient's blood pressure has never dropped below 100, this was discussed with the patient's nurse, they were accidentally entered incorrectly. Patient's was at bedside earlier today. I discussed with the that patient could deteriorate quickly. If needed, patient is known to be a full code. At this time, patient is relatively stable on high-flow COVID test is negative 01:25, CT scan shows possible ARDS. I discussed the findings with Dr. Valadez. At this time, it was suspected that patient may be developing ARDS secondary to sepsis from the MRCP from yesterday or the right ureteral stent. Patient already received 2 L of normal saline (1L by EMS and 1L here). Based on an ideal weight of 60 kg, patient is morbidly obese. Patient already received empirically 1 dose of Levaquin. However, with this new diagnosis, we will go ahead and order Zosyn and vancomycin. At this time, patient's blood pressure remained stable, 120 systolic, pulse 75, 100% on high-flow nasal cannula. Patient accepted to the unit Medical Decision Making Lab Data Result diagrams: 08/18/21 20:29 08/18/21 22:42 Labs: Lab Results 08/18/21 08/18/21 08/18/21 Range/Units 20:27 20:28 20:28 WBC (4.8-10.8) X10*3/uL RBC (4.20-5.50) X10*6/uL Hgb (12.0-16.0) g/dl Hct (37.0-47.0) % MCV (80.0-98.0) fL MCH (27.0-33.0) pg MCHC (31.0-35.0) g/dl RDW (11.0-16.0) % Plt Count (160-400) X10*3/uL MPV (9.4-12.3) fL Immature Gran % (Auto) (0.0-0.4) % Neut % (Auto) (45-73) % Lymph % (Auto) (20-40) % Hamlin % (Auto) (2-11) % Eos % (Auto) (0-4) % Baso % (Auto) (0-2) % Lymph # (Auto) (1.2-4.9) X10*3/uL Hamlin # (Auto) (0.1-1.2) X10*3/uL Eos # (Auto) (0.0-0.4) X10*3/uL Baso # (Auto) (0.0-0.2) X10*3/uL Abs Immat Gran (auto) (0.00-0.03) X10*3/uL Absolute Neuts (auto) (2.0-8.3) x10*3/uL Absolute Nucleated RBC (0.0-0.012) X10*3/uL Nucleated RBC % (auto) (0.0-0.2) /100WBC PT 12.5 (9.9-13.0) SEC INR 1.1 (0.9-1.1) D-Dimer High Sensitivty 606 NG/ML VBG pH (7.32-7.43) VBG pCO2 mmHg VBG pO2 mmHg VBG HCO3 (22-26) mmol/L VBG O2 Saturation % VBG Base Excess mmol/L Sodium (135-145) mmol/L Potassium (3.3-5.1) mmol/L Chloride (96-108) mmol/L Carbon Dioxide (22-29) mmol/L Anion Gap (12-20) BUN (9-16) mg/dL Creatinine (0.5-1.4) mg/dL Estim Creat Clear Calc Estimated GFR Random Glucose (60-115) mg/dL Lactic Acid 1.4 (0.5-2.0) mmol/L Calcium (8.4-10.2) mg/dL Total Bilirubin (0.0-1.0) mg/dL Direct Bilirubin (0.0-0.5) mg/dL AST (5-31) U/L ALT (0-31) U/L Alkaline Phosphatase (39-117) U/L Troponin I High Sens 5.2 (<3.5-17.0) ng/L B-Natriuretic Peptide 33 (<100) pg/mL Total Protein (6.5-8.0) g/dL Albumin (3.5-5.0) g/dL Urine Opiates Screen (Not Detect) Urine Fentanyl Screen (Not Detect) Ur Barbiturates Screen (Not Detect) Ur Phencyclidine Scrn (Not Detect) Ur Amphetamines Screen (Not Detect) U Benzodiazepines Scrn (Not Detect) Urine Cocaine Screen (Not Detect) U Marijuana (THC) Screen (Not Detect) COVID-19 ([facility]) (Negative) COVID-19 Clin Com 08/18/21 08/18/21 08/18/21 Range/Units 20:29 20:30 20:32 WBC 17.3 H (4.8-10.8) X10*3/uL RBC 3.48 L (4.20-5.50) X10*6/uL Hgb 9.9 L (12.0-16.0) g/dl Hct 30.7 L (37.0-47.0) % MCV 88.2 (80.0-98.0) fL MCH 28.4 (27.0-33.0) pg MCHC 32.2 (31.0-35.0) g/dl RDW 15.8 (11.0-16.0) % Plt Count 263 (160-400) X10*3/uL MPV 11.1 (9.4-12.3) fL Immature Gran % (Auto) 1.2 H (0.0-0.4) % Neut % (Auto) 86.4 H (45-73) % Lymph % (Auto) 7.1 L (20-40) % Hamlin % (Auto) 4.9 (2-11) % Eos % (Auto) 0.1 (0-4) % Baso % (Auto) 0.3 (0-2) % Lymph # (Auto) 1.2 (1.2-4.9) X10*3/uL Hamlin # (Auto) 0.9 (0.1-1.2) X10*3/uL Eos # (Auto) 0.0 (0.0-0.4) X10*3/uL Baso # (Auto) 0.1 (0.0-0.2) X10*3/uL Abs Immat Gran (auto) 0.21 H (0.00-0.03) X10*3/uL Absolute Neuts (auto) 14.9 H (2.0-8.3) x10*3/uL Absolute Nucleated RBC 0.000 (0.0-0.012) X10*3/uL Nucleated RBC % (auto) 0.0 (0.0-0.2) /100WBC PT (9.9-13.0) SEC INR (0.9-1.1) D-Dimer High Sensitivty NG/ML VBG pH 7.31 L (7.32-7.43) VBG pCO2 43 mmHg VBG pO2 42 mmHg VBG HCO3 22 (22-26) mmol/L VBG O2 Saturation 59.0 % VBG Base Excess -3.8 mmol/L Sodium (135-145) mmol/L Potassium (3.3-5.1) mmol/L Chloride (96-108) mmol/L Carbon Dioxide (22-29) mmol/L Anion Gap (12-20) BUN (9-16) mg/dL Creatinine (0.5-1.4) mg/dL Estim Creat Clear Calc Estimated GFR Random Glucose (60-115) mg/dL Lactic Acid (0.5-2.0) mmol/L Calcium (8.4-10.2) mg/dL Total Bilirubin (0.0-1.0) mg/dL Direct Bilirubin (0.0-0.5) mg/dL AST (5-31) U/L ALT (0-31) U/L Alkaline Phosphatase (39-117) U/L Troponin I High Sens (<3.5-17.0) ng/L B-Natriuretic Peptide (<100) pg/mL Total Protein (6.5-8.0) g/dL Albumin (3.5-5.0) g/dL Urine Opiates Screen (Not Detect) Urine Fentanyl Screen (Not Detect) Ur Barbiturates Screen (Not Detect) Ur Phencyclidine Scrn (Not Detect) Ur Amphetamines Screen (Not Detect) U Benzodiazepines Scrn (Not Detect) Urine Cocaine Screen (Not Detect) U Marijuana (THC) Screen (Not Detect) COVID-19 ([facility]) Negative (Negative) COVID-19 Clin Com See Note 08/18/21 08/18/21 Range/Units 22:11 22:42 WBC (4.8-10.8) X10*3/uL RBC (4.20-5.50) X10*6/uL Hgb (12.0-16.0) g/dl Hct (37.0-47.0) % MCV (80.0-98.0) fL MCH (27.0-33.0) pg MCHC (31.0-35.0) g/dl RDW (11.0-16.0) % Plt Count (160-400) X10*3/uL MPV (9.4-12.3) fL Immature Gran % (Auto) (0.0-0.4) % Neut % (Auto) (45-73) % Lymph % (Auto) (20-40) % Hamlin % (Auto) (2-11) % Eos % (Auto) (0-4) % Baso % (Auto) (0-2) % Lymph # (Auto) (1.2-4.9) X10*3/uL Hamlin # (Auto) (0.1-1.2) X10*3/uL Eos # (Auto) (0.0-0.4) X10*3/uL Baso # (Auto) (0.0-0.2) X10*3/uL Abs Immat Gran (auto) (0.00-0.03) X10*3/uL Absolute Neuts (auto) (2.0-8.3) x10*3/uL Absolute Nucleated RBC (0.0-0.012) X10*3/uL Nucleated RBC % (auto) (0.0-0.2) /100WBC PT (9.9-13.0) SEC INR (0.9-1.1) D-Dimer High Sensitivty NG/ML VBG pH (7.32-7.43) VBG pCO2 mmHg VBG pO2 mmHg VBG HCO3 (22-26) mmol/L VBG O2 Saturation % VBG Base Excess mmol/L Sodium 134 L (135-145) mmol/L Potassium 4.9 (3.3-5.1) mmol/L Chloride 106 (96-108) mmol/L Carbon Dioxide 17 L (22-29) mmol/L Anion Gap 16 (12-20) BUN 38 H (9-16) mg/dL Creatinine 1.81 H (0.5-1.4) mg/dL Estim Creat Clear Calc 60.7 Estimated GFR 30 Random Glucose 128 H (60-115) mg/dL Lactic Acid (0.5-2.0) mmol/L Calcium 7.8 L (8.4-10.2) mg/dL Total Bilirubin 1.2 H (0.0-1.0) mg/dL Direct Bilirubin 1.0 H (0.0-0.5) mg/dL AST 39 H (5-31) U/L ALT 34 H (0-31) U/L Alkaline Phosphatase 670 H D (39-117) U/L Troponin I High Sens (<3.5-17.0) ng/L B-Natriuretic Peptide (<100) pg/mL Total Protein 6.3 L (6.5-8.0) g/dL Albumin 2.2 L (3.5-5.0) g/dL Urine Opiates Screen POSITIVE H (Not Detect) Urine Fentanyl Screen POSITIVE H (Not Detect) Ur Barbiturates Screen Not Detected (Not Detect) Ur Phencyclidine Scrn Not Detected (Not Detect) Ur Amphetamines Screen Not Detected (Not Detect) U Benzodiazepines Scrn POSITIVE H (Not Detect) Urine Cocaine Screen POSITIVE H (Not Detect) U Marijuana (THC) Screen Not Detected (Not Detect) COVID-19 ([facility]) (Negative) COVID-19 Clin Com Critical Care Time Critical Care Time Critical Care Time: Yes Total Critical Care Time: 60 Attestation: I have personally provided critical care time. Time includes review of lab data, radiology results, discussion with consultants, and monitoring for potential decompensation. Intervention performed as documented. Discharge Plan Discharge Clinical Impression: Acute respiratory distress syndrome (ARDS) Patient Disposition: Admitted As Inpatient
[2021-08-18 20:30] VITALS: BP 98/56; PULSE 74; RESP 19; O2SAT 97
[2021-08-18 20:36] LABS: MANUAL DIFF FLAG NO
[2021-08-18] MEDS: 0.9 % Sodium Chloride 1,000 ML 999 ML IVCONT (20:36)
[2021-08-18 20:37] LABS: Basophils Absolute Auto 0.1 X10*3/uL (0.0-0.2); Basophils Percent Auto 0.3 % (0-2); Eosinophils Percent Auto 0.1 % (0-4); Hematocrit 30.7 % (37.0-47.0); Hemoglobin 9.9 g/dl (12.0-16.0); Imm Gran Abs Auto 0.21 X10*3/uL (0.00-0.03); Imm Gran Pct Auto 1.2 % (0.0-0.4); Lymphocytes Absolute Auto 1.2 X10*3/uL (1.2-4.9); Lymphocytes Percent Auto 7.1 % (20-40); Mean Corpuscular HGB Conc 32.2 g/dl (31.0-35.0); Mean Corpuscular Hemoglobin 28.4 pg (27.0-33.0); Mean Corpuscular Volume 88.2 fL (80.0-98.0); Mean Platelet Volume 11.1 fL (9.4-12.3); Monocytes Absolute Auto 0.9 X10*3/uL (0.1-1.2); Monocytes Percent Auto 4.9 % (2-11); Neutrophils Absolute Auto 14.9 x10*3/uL (2.0-8.3); Neutrophils Percent Auto 86.4 % (45-73); Platelet Count 263 X10*3/uL (160-400); Red Blood Count 3.48 X10*6/uL (4.20-5.50); Red Cell Distribution Width 15.8 % (11.0-16.0); White Blood Count 17.3 X10*3/uL (4.8-10.8)
[2021-08-18 20:38] LABS: Venous Blood Gas Refer to POC result
[2021-08-18 20:39] LABS: VBG Base Excess -3.8 mmol/L; VBG HCO3 22 mmol/L (22-26); VBG pCO2 43 mmHg; VBG pH 7.31 (7.32-7.43); VBG pO2 42 mmHg
[2021-08-18 20:43] LABS: INTERNATIONAL NORM RATIO 1.1 (0.9-1.1); Prothrombin Time 12.5 SEC (9.9-13.0)
[2021-08-18 20:49] LABS: COVID-19 Test Negative (Negative)
[2021-08-18 20:49] LABS: Lactic Acid 1.4 mmol/L (0.5-2.0)
[2021-08-18 21:01] LABS: B Type Natriuretic Peptide 33 pg/mL (<100); Troponin-I High Sensitivity 5.2 ng/L (<3.5-17.0)
--- NOTE | 2021-08-18 21:02 | PC.NURSE ---
pt switch to venti-mask with a po of 100%. 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 VS obtained. at bedside. labs drawn to lab for eval.
[2021-08-18 21:27] LABS: D Dimer High Sensitivity 606 NG/ML
--- NOTE | 2021-08-18 21:47 | PC.NURSE ---
respiratory in room for eval. pt being placed on high flow as per MD's orders. pt remains on monitor. pt awake and then falls back to sleep. family remains at bedside. pt being straight cath by pct.
[2021-08-18 22:37] LABS: Amphetamine Screen Urine Not Detected (Not Detect); Barbiturates, Urine Not Detected (Not Detect); Benzodiazepines Screen Urine POSITIVE (Not Detect); Cannabinoid Screen Urine Not Detected (Not Detect); Cocaine Screen Urine POSITIVE (Not Detect); Fentanyl, urine POSITIVE (Not Detect); Opiate Screen Urine POSITIVE (Not Detect); Phencyclidine Screen Urine Not Detected (Not Detect)
[2021-08-18 23:10] LABS: Alanine Aminotransferase 34 U/L (0-31); Albumin Level 2.2 g/dL (3.5-5.0); Alkaline Phosphatase 670 U/L (39-117); Anion Gap 16 (12-20); Aspartate Amino Transferase 39 U/L (5-31); Bilirubin Total 1.2 mg/dL (0.0-1.0); Blood Urea Nitrogen 38 mg/dL (9-16); Calcium 7.8 mg/dL (8.4-10.2); Carbon Dioxide 17 mmol/L (22-29); Chloride 106 mmol/L (96-108); Creatinine Clr Calc Pharmacy 60.7; Estimated Glomerular Filt Rate 30; Glucose Random 128 mg/dL (60-115); Potassium 4.9 mmol/L (3.3-5.1); Sodium 134 mmol/L (135-145); Total Protein 6.3 g/dL (6.5-8.0)
--- NOTE | 2021-08-18 23:52 | PC.NURSE ---
respiratory notified and coming to take pt to CT in stretcher. No chg in pt's condition.
[2021-08-19] VITALS (31 sets, daily range): BP systolic 94–151; BP diastolic 47–84; PULSE 58–90; RESP 14–31; TEMP 36.3–37.4; O2SAT 87–97; BMI 56.7; BMI 56.4
[2021-08-19] MEDS: levoFLOXacin/D5W 500 MG/100 ML PIGGYBACK 100 MG IV (01:37)
[2021-08-19] MEDS: 0.9 % Sodium Chloride 1,000 ML 999 ML IVCONT (01:38)
--- NOTE | 2021-08-19 01:59 | P.HPCC_ITS ---
History of Present Illness Date of Service: 08/19/21 <Loulou Navarro PA-C - Last Filed: 08/19/21 05:53> Attending physician on admission: Maximino Valadez <Loulou Navarro PA-C - Last Filed: 08/19/21 05:53> Chief Complaint: ARDS <Loulou Navarro PA-C - Last Filed: 08/19/21 05:53> Patient is a 51-year-old female with a past medical history of DM2, HLD, HTN, choledocholithiasis, kidney stones and obesity who was found unresponsive and cyanotic by her late last evening. EMS was called and the patient was given 8 mg of Narcan before she finally started to wake up. Patient denied any illicit drug use at that time. Patient was satting in the 60s-70s until she was given supplemental oxygen by EMS. In th ED, patient required 45 L high-flow nasal cannula to reach a sat of 92%. Patient was discharged yesterday from [facility], on August 17, where she was being treated for pyelonephritis and abdominal pain. Her urine grew E coli. Pt also underwent MRCP, she was found to have new severe dilatation of the CBD and moderate dilatation of the intra hepatic bile duct. During her stay, the patient was given cefepime and Flagyl, Dr. Reed placed a right ureteral stent. Blood cultures were negative. She was discharged home on PO antibiotics, cefepime, and was instructed to follow up with Dr. Reed outpatient. In the emergency department the patient's labs were significant for, WBC 17.3, H&H 9.7 and 30.7, D-dimer 606, VBG 7.31/43/42/22/59/3.8, sodium 134, BUN 38, creatinine 1.81, total bili 1.2, direct bili 1.0, AST 39, ALT 34, alk phos 670, albumin 2.2, troponin was negative, BNP 33, lactic acid 1.4. Urinalysis was positive for infection, also 3+ protein, 3+ blood, red blood cells and white blood cells as well as mucus. U tox is positive for opiates, positive for fentanyl, positive for benzodiazepines and positive for cocaine. Patient's COVID test was negative. Chest CT IMPRESSION: Diffuse opacification throughout both lungs. The appearance is nonspecific. This could be diffuse infectious process. This may also represent severe interstitial and alveolar edema. ARDS is a consideration. During my bedside exam, patient was able to answer my questions and admitted to using cocaine yesterday after she got home from the hospital and thinks it might have been laced with something. She states she is breathing easier on the high- flow nasal cannula satting at 96% on 75% & 40L and denies any chest pain or sob but admits to some abdominal pain. VSS. Patient may be developing ARDS secondary to sepsis from the MRCP +/- right ureteral stent.? Patient already received 2 L NS (1L by EMS and 1L in ED).? Based on an ideal weight of 60 kg, patient is morbidly obese.? Patient already received empirically 1 dose of Levaquin.? Dr. Valadez agreed with assessment and plan; patient will be admitted to the ICU. <Loulou Navarro PA-C - Last Filed: 08/19/21 05:53> Patient is a 51-year-old female with a past medical history of DM2, HLD, HTN, choledocholithiasis, kidney stones and obesity who was found unresponsive and cyanotic by her late last evening. EMS was called and the patient was given 8 mg of Narcan before she finally started to wake up. Patient denied any illicit drug use at that time. Patient was satting in the 60s-70s until she was given supplemental oxygen by EMS. In th ED, patient required 45 L high-flow nasal cannula to reach a sat of 92%. Patient was discharged yesterday from [facility], on August 17, where she was being treated for pyelonephritis and abdominal pain. Her urine grew E coli. Pt also underwent MRCP, she was found to have new severe dilatation of the CBD and moderate dilatation of the intra hepatic bile duct. During her stay, the patient was given cefepime and Flagyl, Dr. Reed placed a right ureteral stent. Blood cultures were negative. She was discharged home on PO antibiotics, cefepime, and was instructed to follow up with Dr. Reed outpatient. In the emergency department the patient's labs were significant for, WBC 17.3, H&H 9.7 and 30.7, D-dimer 606, VBG 7.31/43/42/22/59/3.8, sodium 134, BUN 38, creatinine 1.81, total bili 1.2, direct bili 1.0, AST 39, ALT 34, alk phos 670, albumin 2.2, troponin was negative, BNP 33, lactic acid 1.4. Urinalysis was positive for infection, also 3+ protein, 3+ blood, red blood cells and white blood cells as well as mucus. U tox is positive for opiates, positive for fentanyl, positive for benzodiazepines and positive for cocaine. Patient's COVID test was negative. Chest CT IMPRESSION: Diffuse opacification throughout both lungs. The appearance is nonspecific. This could be diffuse infectious process. This may also represent severe interstitial and alveolar edema. ARDS is a consideration. During my bedside exam, patient was able to answer my questions and admitted to using cocaine yesterday after she got home from the hospital and thinks it might have been laced with something. She states she is breathing easier on the high- flow nasal cannula satting at 96% on 75% & 40L and denies any chest pain or sob but admits to some abdominal pain. VSS. Patient may be developing ARDS secondary to sepsis from the MRCP +/- right ureteral stent.? Patient already received 2 L NS (1L by EMS and 1L in ED).? Based on an ideal weight of 60 kg, patient is morbidly obese.? Patient already received empirically 1 dose of Levaquin.? Dr. Valadez agreed with assessment and plan; patient will be admitted to the ICU. 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 <Maximino Valadez MD - Last Filed: 08/19/21 11:31> Review of Systems Review of Systems: Yes all other systems are reviewed and are negative <Loulou Navarro PA-C - Last Filed: 08/19/21 05:53> FOR[facility]LY [facility], [facility] Past Medical History Medical History: Medical History Choledocholithiasis Diabetes type I High cholesterol HTN (hypertension) Hydroureteronephrosis Kidney stones <Loulou Navarro PA-C - Last Filed: 08/19/21 05:53> Family History Family History: Family History Mother Coronary artery disease Diabetes <Loulou Navarro PA-C - Last Filed: 08/19/21 05:53> Surgical History Surgical History: Surgical History No pertinent past surgical history <Loulou Navarro PA-C - Last Filed: 08/19/21 05:53> Social History Social History: Social History Alcohol intake: former Patient Tobacco Use Status: Current everyday Tobacco user Tobacco use type: Cigarette Cigarettes Per Day: 5 Currently Displaying Signs/Symptoms of Drug Intoxication Withdrawal: No Advance Directives: No Advance Directives Information Provided: Yes service: No Current occupational status: unemployed <Loulou Navarro PA-C - Last Filed: 08/19/21 05:53> Meds Allergies/Adverse reactions: Allergies Allergy/AdvReac Type Severity Reaction Status Date / Time canagliflozin [From Invokana] Allergy Rash Verified 11/26/20 18:22 latex Allergy Itching Verified 11/26/20 18:22 Penicillins Allergy Rash Verified 11/26/20 18:22 sitagliptin [From Januvia] Allergy Rash Verified 11/26/20 18:22 <Loulou Navarro PA-C - Last Filed: 08/19/21 05:53> Active Medications: Current Medications Enoxaparin Sodium (Enoxaparin Sodium 40 Mg/0.4 Ml Syringe) 40 mg SUBCUT Q12H MITCHELL Levofloxacin (Levaquin) 500 mg in 100 mls @ 100 mls/hr IV ONCE ONE Stop: 08/19/21 02:16 Last Admin: 08/19/21 01:37 Dose: 100 mls/hr Documented by: Sodium Chloride (Ns) 1,000 mls @ 999 mls/hr IVCONT .Q1H1M ONE Stop: 08/19/21 02:18 Last Admin: 08/19/21 01:38 Dose: 999 mls/hr Documented by: Vancomycin HCl 1,000 mg/Vancomycin HCl 750 mg/ Sodium Chloride 535 mls @ 267.5 mls/hr IV ONCE ONE Stop: 08/19/21 03:32 Piperacillin Sod/Tazobactam (Sod 3.375 gm/ Sodium Chloride) 50 mls @ 100 mls/hr IV ONCE ONE Stop: 08/19/21 02:02 Pharmacy Consult (Consult Rx Perform Med Rec) 1 each MISCELLANE ONCE PRN PRN Reason: Consult order Pharmacy Consult (Consult Rx Vancomycin Dosing) 1 each MISCELLANE DAILY PRN PRN Reason: Consult order <Loulou Navarro PA-C - Last Filed: 08/19/21 05:53> Home medications: Home Medications Medication Instructions Recorded Confirmed Last Taken Type albuterol sulfate 90 mcg/actuation 2 puff PO Q4H PRN 08/13/21 08/18/21 08/12/21 History aerosol inhaler (ProAir HFA) aspirin 81 mg tablet,delayed 1 tab PO DAILY 08/13/21 08/18/21 08/12/21 History release atorvastatin 80 mg tablet 1 tab PO BEDTIME 08/13/21 08/18/21 08/12/21 History buprenorphine 8 mg-naloxone 2 mg 1 strip SUBLINGUAL TID 08/13/21 08/18/21 08/13/21 History sublingual film (Suboxone) clonazepam 0.5 mg tablet 1 tab PO DAILY PRN 08/13/21 08/18/21 08/12/21 History fluoxetine 20 mg capsule 3 cap PO DAILY 08/13/21 08/18/21 08/12/21 History gabapentin 600 mg tablet 1 tab PO TID 08/13/21 08/18/21 08/12/21 History ibuprofen 800 mg tablet 1 tab PO TID PRN 08/13/21 08/18/21 08/12/21 History insulin glargine 100 unit/mL (3 54 unit SUBCUT BID 08/13/21 08/18/21 08/12/21 History mL) subcutaneous pen (Lantus Solostar U-100 Insulin) insulin lispro 100 unit/mL 15 unit SUBCUT DAILY@1200 08/13/21 08/18/21 08/12/21 History subcutaneous pen (Humalog KwikPen (U-100) Insulin) insulin lispro 100 unit/mL 20 unit SUBCUT DAILY@0900,1700 08/13/21 08/18/21 08/12/21 History subcutaneous pen (Humalog KwikPen (U-100) Insulin) levothyroxine 200 mcg tablet 1 tab PO DAILY@0630 08/13/21 08/18/21 08/12/21 History lisinopril 20 1 tab PO DAILY 08/13/21 08/18/21 08/12/21 History mg-hydrochlorothiazide 25 mg tablet loratadine 10 mg tablet 1 tab PO DAILY 08/13/21 08/18/21 Unknown History omeprazole 20 mg capsule,delayed 1 cap PO BID@0630,1630 08/13/21 08/18/2104/25 History release trazodone 100 mg tablet 1 - 3 tab PO BEDTIME PRN 08/13/21 08/18/21 08/12/21 History <Loulou Navarro PA-C - Last Filed: 08/19/21 05:53> Physical Exam Vital Signs: Vital Signs: Last Vital Signs Pulse 75 08/19/21 01:26 Resp 14 08/19/21 01:26 BP 128/69 08/19/21 01:26 Pulse Ox 94 08/19/21 01:26 Oxygen Flow Rate 45 08/18/21 20:11 BMI result Body Mass Index 57.4 <Loulou Navarro PA-C - Last Filed: 08/19/21 05:53> Const: General: cooperative, comfortable, no acute distress and tired appearing <KARAN Ron Last Filed: 08/19/21 05:53> Nutritional Appearance: obese <KARAN Ron Last Filed: 08/19/21 05:53> Orientation/consciousness: patient oriented x3 <Loulou Navarro PA-C - Last Filed: 08/19/21 05:53> Limitations: no limitations <KARAN Ron Last Filed: 08/19/21 05:53> HENMT: Head: Yes normal to inspection, Yes No palpable skull fracture present, Yes normocephalic and Yes atraumatic <KARAN Ron Last Filed: 08/19/21 05:53> General nose exam: Normal external nose present <KARAN Ron Last Filed: 08/19/21 05:53> Face and sinus: Yes normal facial exam <EDILBERTO RonC - Last Filed: 08/19/21 05:53> Eyes: General: appearance normal, both eyes and all related structures <Loulou Navarro PA-C - Last Filed: 08/19/21 05:53> Neck: Neck: Yes normal visual inspection and Yes full ROM <EDILBERTO RonC - Last Filed: 08/19/21 05:53> Resp: Effort & Inspection: normal respiratory effort and able to speak in complete sentences <EDILBERTO RonC - Last Filed: 08/19/21 05:53> Auscultation: diminished lung sounds <Loulou Navarro PA-C - Last Filed: 08/19/21 05:53> Cardio: Rate: regular rate <EDILBERTO RonCristy - Last Filed: 08/19/21 05:53> Rhythm: regular rhythm <Loulou Navarro PA-C - Last Filed: 08/19/21 05:53> Heart sounds: normal S1 and S2 <EDILBERTO RonCristy - Last Filed: 05:53> GI: Inspection: Yes normal to inspection <Loulou Navarro PA-C - Last Filed: 08/19/21 05:53> Palpation (GI): Soft to palpation and Tenderness to palpation present (GI) sup rapubicly <EDILBERTO RonC - Last Filed: 08/19/21 05:53> Skin: General skin exam: no rashes or lesions noted <EDILBERTO Ron - Last Filed: 08/19/21 05:53> Neuro: General: patient oriented x3 <Loulou Navarro PA-C - Last Filed: 08/19/21 05:53> Extrem: General: Yes normal to inspection <Loulou Navarro PA-C - Last Filed: 08/19/21 05:53> Results Labs CBC and Chem 7: : 08/19/21 05:19 08/19/21 05:19 <Loulou Navarro PA-C - Last Filed: 08/19/21 05:53> Labs: Laboratory Results - last 24 hr 08/18/21 08/18/21 08/18/21 20:27 20:28 20:28 MCV MCH MCHC RDW Plt Count MPV Immature Gran % (Auto) Neut % (Auto) Lymph % (Auto) [place] % (Auto) Eos % (Auto) Baso % (Auto) Lymph # (Auto) [place] # (Auto) Eos # (Auto) Baso # (Auto) Abs Immat Gran (auto) Absolute Neuts (auto) Absolute Nucleated RBC Nucleated RBC % (auto) PT 12.5 INR 1.1 D-Dimer High Sensitivty 606 VBG pH VBG pCO2 VBG pO2 VBG HCO3 VBG O2 Saturation VBG Base Excess Anion Gap Estim Creat Clear Calc Estimated GFR Random Glucose Lactic Acid 1.4 Calcium Total Bilirubin Direct Bilirubin AST ALT Alkaline Phosphatase B-Natriuretic Peptide 33 Total Protein Albumin Urine Opiates Screen Urine Fentanyl Screen Ur Barbiturates Screen Ur Phencyclidine Scrn Ur Amphetamines Screen U Benzodiazepines Scrn Urine Cocaine Screen U Marijuana (THC) Screen COVID-19 ([facility]) COVID-19 Clin Com 08/18/21 08/18/21 08/18/21 20:29 20:30 20:32 MCV 88.2 MCH 28.4 MCHC 32.2 RDW 15.8 Plt Count 263 MPV 11.1 Immature Gran % (Auto) 1.2 H Neut % (Auto) 86.4 H Lymph % (Auto) 7.1 L [place] % (Auto) 4.9 Eos % (Auto) 0.1 Baso % (Auto) 0.3 Lymph # (Auto) 1.2 [place] # (Auto) 0.9 Eos # (Auto) 0.0 Baso # (Auto) 0.1 Abs Immat Gran (auto) 0.21 H Absolute Neuts (auto) 14.9 H Absolute Nucleated RBC 0.000 Nucleated RBC % (auto) 0.0 PT INR D-Dimer High Sensitivty VBG pH 7.31 L VBG pCO2 43 VBG pO2 42 VBG HCO3 22 VBG O2 Saturation 59.0 VBG Base Excess -3.8 Anion Gap Estim Creat Clear Calc Estimated GFR Random Glucose Lactic Acid Calcium Total Bilirubin Direct Bilirubin AST ALT Alkaline Phosphatase B-Natriuretic Peptide Total Protein Albumin Urine Opiates Screen Urine Fentanyl Screen Ur Barbiturates Screen Ur Phencyclidine Scrn Ur Amphetamines Screen U Benzodiazepines Scrn Urine Cocaine Screen U Marijuana (THC) Screen COVID-19 ([facility]) Negative COVID-19 Clin Com See Note 08/18/21 08/18/21 22:11 22:42 MCV MCH MCHC RDW Plt Count MPV Immature Gran % (Auto) Neut % (Auto) Lymph % (Auto) [place] % (Auto) Eos % (Auto) Baso % (Auto) Lymph # (Auto) [place] # (Auto) Eos # (Auto) Baso # (Auto) Abs Immat Gran (auto) Absolute Neuts (auto) Absolute Nucleated RBC Nucleated RBC % (auto) PT INR D-Dimer High Sensitivty VBG pH VBG pCO2 VBG pO2 VBG HCO3 VBG O2 Saturation VBG Base Excess Anion Gap 16 Estim Creat Clear Calc 60.7 Estimated GFR 30 Random Glucose 128 H Lactic Acid Calcium 7.8 L Total Bilirubin 1.2 H Direct Bilirubin 1.0 H AST 39 H ALT 34 H Alkaline Phosphatase 670 H D B-Natriuretic Peptide Total Protein 6.3 L Albumin 2.2 L Urine Opiates Screen POSITIVE H Urine Fentanyl Screen POSITIVE H Ur Barbiturates Screen Not Detected Ur Phencyclidine Scrn Not Detected Ur Amphetamines Screen Not Detected U Benzodiazepines Scrn POSITIVE H Urine Cocaine Screen POSITIVE H U Marijuana (THC) Screen Not Detected COVID-19 ([facility]) COVID-19 Clin Com <Loulou Nvaarro PA-C - Last Filed: 08/19/21 05:53> Imaging Radiologist's Impressions: Impressions Chest X-Ray 08/18/21 21:24 IMPRESSION: Diffuse bilateral patchy infiltrates are nonspecific, but represents interval worsening from the previous study. This could be cardiogenic however an infectious/inflammatory process cannot be excluded. Correlate clinically. Chest CT 08/19/21 00:50 IMPRESSION: Diffuse opacification throughout both lungs. The appearance is nonspecific. This could be diffuse infectious process. This may also represent severe interstitial and alveolar edema. ARDS is a consideration. Fleischner guidelines were followed. <Loulou Navarro PA-C - Last Filed: 08/19/21 05:53> Assessment and Plan (1) Acute respiratory distress syndrome (ARDS): Status: Acute <KARAN Ron Last Filed: 08/19/21 05:53> Continue HFNC 75% on 40L <KARAN Ron Last Filed: 08/19/21 05:53> (2) Hydroureteronephrosis: Status: Acute <SANDRA Ron-C - Last Filed: 08/19/21 05:53> (3) Choledocholithiasis: Status: Acute <SANDRA Ron-C - Last Filed: 08/19/21 05:53> (4) Elevated LFTs: Status: Acute <SANDRA Ron-C - Last Filed: 08/19/21 05:53> Monitor <SANDRA Ron-C - Last Filed: 08/19/21 05:53> (5) Common bile duct dilatation: Status: Acute <SANDRA Ron-C - Last Filed: 08/19/21 05:53> (6) Cocaine abuse: Status: Acute <SANDRA Ron-C - Last Filed: 08/19/21 05:53> (7) UTI (urinary tract infection): Status: Acute <SANDRA Ron-C - Last Filed: 08/19/21 05:53> continue abx <SANDRA Ron-C - Last Filed: 08/19/21 05:53> (8) RADHIKA (acute kidney injury): Status: Acute <SANDRA Ron-C - Last Filed: 08/19/21 05:53> avoid nephrotoxic medications and monitor her renal indices <SANDRA Ron-C - Last Filed: 08/19/21 05:53> Critical Care Time Critical Care Time (minutes): 60 <SANDRA Ron-C - Last Filed: 08/19/21 05:53>
[2021-08-19] MEDS: vancomycin HCL 1,000 MG, vancomycin HCL 750 MG in 0.9 % Sodium Chloride 500 ML 267.5 MG IV (02:03)
[2021-08-19] MEDS: Piperacillin Sodium/Tazobactam 3.375 GM in 0.9 % Sodium Chloride 50 ML IV (02:04)
[2021-08-19] MEDS: Enoxaparin Sodium 40 MG/0.4 ML SYRINGE SUBCUT ×2 (02:11→13:02)
--- NOTE | 2021-08-19 02:12 | PC.NURSE ---
pt remains on high flow with a po of 97%, pt asleep and wakes to voice, pt medicated as per emar. pt awaiting for further orders.
--- NOTE | 2021-08-19 03:25 | PC.NURSE ---
parsons inserted w/o difficulty. pt cleaned up and pt is being transferred to ICU. Report given to DARIEN Rogel. pt awake and conversing with staff. pt denies complaints. pt on monitor to ICU.
--- NOTE | 2021-08-19 04:42 | PC.NURSE ---
ADMIT TO 253-1 VIA STRETCHER..AWAKE..ALERT..ORIENTED X3....HI-IESHA CANNULA 60% O2 AND 40 L/M...SAO2 84%...ORTHOPNEA...TITRATED TO FIO2 80% AND 50 L/M WITH SAO2 92-93%...HOB 45 DEGREES....ROSARIO W/O AND DRAINAGE...BALLOON IN VAGINA..PATIENT REQUESTED RE-INSERTION...#16 YAKUT ROSARIO REPLACED AND 850ML TYLER URINE OBTAINED...TAKING SIPS OF MARCUS JACK W/O NAUSEA..PATIENT VERBALIZED I FUCKED UP...I SMOKED SOME CRACK AFTER I WENT HOME...ONLY HALF A ROCK ...DENIED USE OF HEROIN..PATIENT TALKED TO VIA TELEPHONE..RESTFUL..CURRENTLY NAPPING
[2021-08-19 05:25] LABS: MANUAL DIFF FLAG NO
[2021-08-19 05:27] LABS: Basophils Percent Auto 0.3 % (0-2); Eosinophils Percent Auto 0.3 % (0-4); Hematocrit 29.5 % (37.0-47.0); Hemoglobin 9.4 g/dl (12.0-16.0); Imm Gran Pct Auto 1.4 % (0.0-0.4); Lymphocytes Absolute Auto 1.4 X10*3/uL (1.2-4.9); Lymphocytes Percent Auto 10.2 % (20-40); Mean Corpuscular HGB Conc 31.9 g/dl (31.0-35.0); Mean Corpuscular Hemoglobin 28.4 pg (27.0-33.0); Mean Corpuscular Volume 89.1 fL (80.0-98.0); Mean Platelet Volume 11.3 fL (9.4-12.3); Monocytes Absolute Auto 0.6 X10*3/uL (0.1-1.2); Monocytes Percent Auto 3.9 % (2-11); Neutrophils Absolute Auto 11.9 x10*3/uL (2.0-8.3); Neutrophils Percent Auto 83.9 % (45-73); Platelet Count 244 X10*3/uL (160-400); Red Blood Count 3.31 X10*6/uL (4.20-5.50); Red Cell Distribution Width 15.6 % (11.0-16.0); White Blood Count 14.2 X10*3/uL (4.8-10.8)
[2021-08-19 05:30] LABS: VBG Base Excess -2.7 mmol/L; VBG HCO3 22 mmol/L (22-26); VBG pCO2 41 mmHg; VBG pH 7.34 (7.32-7.43); VBG pO2 71 mmHg
[2021-08-19 05:30] LABS: Venous Blood Gas Refer to POC result
[2021-08-19 06:01] LABS: Alanine Aminotransferase 33 U/L (0-31); Albumin Level 2.3 g/dL (3.5-5.0); Alkaline Phosphatase 657 U/L (39-117); Anion Gap 16 (12-20); Aspartate Amino Transferase 41 U/L (5-31); Bilirubin Total 1.4 mg/dL (0.0-1.0); Blood Urea Nitrogen 37 mg/dL (9-16); Calcium 8.1 mg/dL (8.4-10.2); Carbon Dioxide 19 mmol/L (22-29); Chloride 105 mmol/L (96-108); Creatinine Clr Calc Pharmacy 64.3; Estimated Glomerular Filt Rate 32; Glucose Random 108 mg/dL (60-115); Magnesium 1.6 mg/dL (1.6-2.6); Phosphorus 3.5 mg/dL (2.7-4.5); Potassium 4.5 mmol/L (3.3-5.1); Sodium 135 mmol/L (135-145); Total Protein 6.6 g/dL (6.5-8.0)
[2021-08-19 07:17] LABS: Glucose, Whole Blood 85 mg/dL (60-115)
[2021-08-19] MEDS: Levothyroxine Sodium 200 MCG TABLET PO (07:28)
[2021-08-19] MEDS: FLUoxetine HCl 20 MG CAPSULE 60 MG PO (07:29)
[2021-08-19] MEDS: Gabapentin 600 MG TABLET PO ×3 (07:29→20:56)
--- NOTE | 2021-08-19 08:58 | MHC.CLN ---
RECOMMEND 1800DM DIET PT WITH TYPE 1 DM
[2021-08-19] MEDS: Buprenorphine/Naloxone 8/2 mg FILM 1 FILM SUBLINGUAL ×3 (10:18→20:56)
[2021-08-19] MEDS: cefTRIAXone sodium 1 GM in 0.9 % Sodium Chloride 50 ML IV (10:18)
[2021-08-19 11:13] LABS: Glucose, Whole Blood 156 mg/dL (60-115)
--- NOTE | 2021-08-19 11:23 | P.PNCC_ITS ---
Subjective Subjective Date of Service: 08/19/21 Interval History: 51-year-old female status post cystoscopy with ureteral stent placement for right-sided hydronephrosis and E coli growing from the urine which is pansensitive so currently she is on ceftriaxone but this is 24 hours after her discharge for that diagnosis came in with shortness of breath profound acute hypoxemic respiratory failure with a likely and very extensive a CT scan picture of the chest consistent with an ARDS like picture Joie versus diffuse alveolar hemorrhage but toxicology being positive for cocaine and fentanyl as well as opioids likelihood is weird in over dealing with a noncardiogenic pulmonary edema/hypersensitivity pneumonitis and right now would just simply the are supporting her oxygenation with nasal high-flow and were marginal and 88% vital signs is stable she is in sinus rhythm and she is a morbidly obese individual and is a chronic polysubstance abuser on a Suboxone program and also a type 2 [id number] diabetic and hyperlipidemic and hypertensive. Bedside echo shows globally normal systolic wall motion of the left ventricle with 55% ejection fraction normal right ventricle and normal and no primary valve or pericardial disease Critical Care Time (minutes): 45 Physical Exam Vital Signs: Vital Signs: Last Vital Signs Temp 98.4 F 08/19/21 10:00 Pulse 85 08/19/21 11:00 Resp 20 08/19/21 11:00 BP 129/61 08/19/21 11:00 Pulse Ox 91 L 08/19/21 11:00 Oxygen Flow Rate 50 08/19/21 01:47 BMI result Body Mass Index 56.4 Awake alert oriented and nonfocal neurologically Chest without adventitious sounds diminished breath sounds bilaterally minimal scattered end inspiratory rales Obese abdomen but no again a megaly and nontender Skin intact with no acrocyanosis Objective Data Labs CBC & Chem 7: 08/19/21 05:19 08/19/21 05:19 Labs: Laboratory Results - last 24 hr 08/18/21 08/18/21 08/18/21 20:27 20:28 20:28 WBC RBC Hgb Hct MCV MCH MCHC RDW Plt Count MPV Immature Gran % (Auto) Neut % (Auto) Lymph % (Auto) Chambers % (Auto) Eos % (Auto) Baso % (Auto) Lymph # (Auto) [place] # (Auto) Eos # (Auto) Baso # (Auto) Abs Immat Gran (auto) Absolute Neuts (auto) Absolute Nucleated RBC Nucleated RBC % (auto) PT 12.5 INR 1.1 D-Dimer High Sensitivty 606 VBG pH VBG pCO2 VBG pO2 VBG HCO3 VBG O2 Saturation VBG Base Excess Sodium Potassium Chloride Carbon Dioxide Anion Gap BUN Creatinine Estim Creat Clear Calc Estimated GFR POC Glucose Random Glucose Lactic Acid 1.4 Calcium Phosphorus Magnesium Total Bilirubin Direct Bilirubin AST ALT Alkaline Phosphatase Troponin I High Sens 5.2 B-Natriuretic Peptide 33 Total Protein Albumin Urine Opiates Screen Urine Fentanyl Screen Ur Barbiturates Screen Ur Phencyclidine Scrn Ur Amphetamines Screen U Benzodiazepines Scrn Urine Cocaine Screen U Marijuana (THC) Screen COVID-19 (AMRIK) COVID-Neuropure Com 08/18/21 08/18/21 08/18/21 20:29 20:30 20:32 WBC 17.3 H RBC 3.48 L Hgb 9.9 L Hct 30.7 L MCV 88.2 MCH 28.4 MCHC 32.2 RDW 15.8 Plt Count 263 MPV 11.1 Immature Gran % (Auto) 1.2 H Neut % (Auto) 86.4 H Lymph % (Auto) 7.1 L Chambers % (Auto) 4.9 Eos % (Auto) 0.1 Baso % (Auto) 0.3 Lymph # (Auto) 1.2 Chambers # (Auto) 0.9 Eos # (Auto) 0.0 Baso # (Auto) 0.1 Abs Immat Gran (auto) 0.21 H Absolute Neuts (auto) 14.9 H Absolute Nucleated RBC 0.000 Nucleated RBC % (auto) 0.0 PT INR D-Dimer High Sensitivty VBG pH 7.31 L VBG pCO2 43 VBG pO2 42 VBG HCO3 22 VBG O2 Saturation 59.0 VBG Base Excess -3.8 Sodium Potassium Chloride Carbon Dioxide Anion Gap BUN Creatinine Estim Creat Clear Calc Estimated GFR POC Glucose Random Glucose Lactic Acid Calcium Phosphorus Magnesium Total Bilirubin Direct Bilirubin AST ALT Alkaline Phosphatase Troponin I High Sens B-Natriuretic Peptide Total Protein Albumin Urine Opiates Screen Urine Fentanyl Screen Ur Barbiturates Screen Ur Phencyclidine Scrn Ur Amphetamines Screen U Benzodiazepines Scrn Urine Cocaine Screen U Marijuana (THC) Screen COVID-19 ([facility]RIK) Negative COVID-19 Real Time Genomics Com See Note 08/18/21 08/18/21 08/19/21 22:11 22:42 05:19 WBC 14.2 H RBC 3.31 L Hgb 9.4 L Hct 29.5 L MCV 89.1 MCH 28.4 MCHC 31.9 RDW 15.6 Plt Count 244 MPV 11.3 Immature Gran % (Auto) 1.4 H Neut % (Auto) 83.9 H Lymph % (Auto) 10.2 L Chambers % (Auto) 3.9 Eos % (Auto) 0.3 Baso % (Auto) 0.3 Lymph # (Auto) 1.4 Chambers # (Auto) 0.6 Eos # (Auto) 0.0 Baso # (Auto) 0.0 Abs Immat Gran (auto) 0.20 H Absolute Neuts (auto) 11.9 H Absolute Nucleated RBC 0.000 Nucleated RBC % (auto) 0.0 PT INR D-Dimer High Sensitivty VBG pH VBG pCO2 VBG pO2 VBG HCO3 VBG O2 Saturation VBG Base Excess Sodium 134 L Potassium 4.9 Chloride 106 Carbon Dioxide 17 L Anion Gap 16 BUN 38 H Creatinine 1.81 H Estim Creat Clear Calc 60.7 Estimated GFR 30 POC Glucose Random Glucose 128 H Lactic Acid Calcium 7.8 L Phosphorus Magnesium Total Bilirubin 1.2 H Direct Bilirubin 1.0 H AST 39 H ALT 34 H Alkaline Phosphatase 670 H D Troponin I High Sens B-Natriuretic Peptide Total Protein 6.3 L Albumin 2.2 L Urine Opiates Screen POSITIVE H Urine Fentanyl Screen POSITIVE H Ur Barbiturates Screen Not Detected Ur Phencyclidine Scrn Not Detected Ur Amphetamines Screen Not Detected U Benzodiazepines Scrn POSITIVE H Urine Cocaine Screen POSITIVE H U Marijuana (THC) Screen Not Detected COVID-19 ([facility]RIK) COVID-19 Clin Com 08/19/21 08/19/21 08/19/21 05:19 05:23 07:14 WBC RBC Hgb Hct MCV MCH MCHC RDW Plt Count MPV Immature Gran % (Auto) Neut % (Auto) Lymph % (Auto) Chambers % (Auto) Eos % (Auto) Baso % (Auto) Lymph # (Auto) [place] # (Auto) Eos # (Auto) Baso # (Auto) Abs Immat Gran (auto) Absolute Neuts (auto) Absolute Nucleated RBC Nucleated RBC % (auto) PT INR D-Dimer High Sensitivty VBG pH 7.34 VBG pCO2 41 VBG pO2 71 VBG HCO3 22 VBG O2 Saturation 91.0 VBG Base Excess -2.7 Sodium 135 Potassium 4.5 Chloride 105 Carbon Dioxide 19 L Anion Gap 16 BUN 37 H Creatinine 1.69 H Estim Creat Clear Calc 64.3 Estimated GFR 32 POC Glucose 85 Random Glucose 108 Lactic Acid Calcium 8.1 L Phosphorus 3.5 Magnesium 1.6 Total Bilirubin 1.4 H Direct Bilirubin 1.0 H AST 41 H ALT 33 H Alkaline Phosphatase 657 H Troponin I High Sens B-Natriuretic Peptide Total Protein 6.6 Albumin 2.3 L Urine Opiates Screen Urine Fentanyl Screen Ur Barbiturates Screen Ur Phencyclidine Scrn Ur Amphetamines Screen U Benzodiazepines Scrn Urine Cocaine Screen U Marijuana (THC) Screen COVID-19 (AMRIK) COVID-allGreenup 08/19/21 11:09 WBC RBC Hgb Hct MCV MCH MCHC RDW Plt Count MPV Immature Gran % (Auto) Neut % (Auto) Lymph % (Auto) Chambers % (Auto) Eos % (Auto) Baso % (Auto) Lymph # (Auto) Chambers # (Auto) Eos # (Auto) Baso # (Auto) Abs Immat Gran (auto) Absolute Neuts (auto) Absolute Nucleated RBC Nucleated RBC % (auto) PT INR D-Dimer High Sensitivty VBG pH VBG pCO2 VBG pO2 VBG HCO3 VBG O2 Saturation VBG Base Excess Sodium Potassium Chloride Carbon Dioxide Anion Gap BUN Creatinine Estim Creat Clear Calc Estimated GFR POC Glucose 156 H Random Glucose Lactic Acid Calcium Phosphorus Magnesium Total Bilirubin Direct Bilirubin AST ALT Alkaline Phosphatase Troponin I High Sens B-Natriuretic Peptide Total Protein Albumin Urine Opiates Screen Urine Fentanyl Screen Ur Barbiturates Screen Ur Phencyclidine Scrn Ur Amphetamines Screen U Benzodiazepines Scrn Urine Cocaine Screen U Marijuana (THC) Screen COVID-19 ([facility]RIK) COVID-19 Real Time Genomics Com Progress Note: A&P Assessment and plan (1) Acute hypoxemic respiratory failure: Status: Acute (2) Noncardiogenic pulmonary edema: Status: Acute (3) Hypersensitivity pneumonitis: Status: Acute (4) Morbid obesity: Status: Acute Plan Plan is just to support her oxygenation and we are allowing a diet and trying not to volume replete in case the no there is a noncardiogenic component of edema Quality Stroke Does the patient have a stroke diagnosis?: No VTE Prior VTE?: No VTE Risk Level:: Medical - low VTE Device Contraindication: N/A - Device Ordered VTE Drug Contraindication: N/A - Med Ordered
[2021-08-19 11:46] LABS: VBG Base Excess -3.1 mmol/L; VBG HCO3 22 mmol/L (22-26); VBG pCO2 38 mmHg; VBG pH 7.35 (7.32-7.43); VBG pO2 52 mmHg
--- NOTE | 2021-08-19 12:48 | MHC.CM.PN ---
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 She uses a [facility] for transport and has working DM equipment and supplies. Pt receives weekly methadone from a clinic on [address] per her. Pt has NOT been COVID vaccinated. PCP is Dr. Orlando ortiz/[facility]. Pt may need transportation home. No additional services anticipated. CARE team consult recommended to d/t + tox screen
[2021-08-19] MEDS: methylPREDNISolone Sod Succ 125 MG/2 ML VIAL IVPUSH (13:02)
[2021-08-19 13:58] LABS: Venous Blood Gas Refer to POC result
--- NOTE | 2021-08-19 17:48 | PC.NURSE ---
[place]ay removed at 1030 per MD order. put pt on bedpan at 1430 and pt unable to void, pt asking for catheter- educated pt on importance of avoid catheterization and risk of infection, md aware, recheck at 1700, bladder scanned for 600ml at 1700, pt unable to use bed beck again and per MD order pt straight catheterized. Catheter drained 800ml of yellow urine. will continue to monitor. Throughout day, pt looking more tired/out of breath, made aware, gases drawn, plan to monitor.
[2021-08-19] MEDS: clonazePAM 0.5 MG TABLET PO (20:56)
[2021-08-20] VITALS (31 sets, daily range): BP systolic 97–190; BP diastolic 54–103; PULSE 53–82; RESP 12–22; TEMP 37.3–37.6; O2SAT 76–96; BMI 57.2
[2021-08-20] MEDS: Enoxaparin Sodium 40 MG/0.4 ML SYRINGE SUBCUT ×2 (02:57→16:15)
[2021-08-20 05:25] LABS: VBG Base Excess -3.1 mmol/L; VBG HCO3 20 mmol/L (22-26); VBG pCO2 32 mmHg; VBG pO2 81 mmHg
[2021-08-20 05:32] LABS: MANUAL DIFF FLAG NO
[2021-08-20 05:34] LABS: Venous Blood Gas Refer to POC result
[2021-08-20 05:37] LABS: Basophils Percent Auto 0.1 % (0-2); Hematocrit 26.2 % (37.0-47.0); Hemoglobin 8.3 g/dl (12.0-16.0); Imm Gran Abs Auto 0.27 X10*3/uL (0.00-0.03); Imm Gran Pct Auto 2.2 % (0.0-0.4); Lymphocytes Absolute Auto 1.1 X10*3/uL (1.2-4.9); Lymphocytes Percent Auto 8.9 % (20-40); Mean Corpuscular HGB Conc 31.7 g/dl (31.0-35.0); Mean Corpuscular Hemoglobin 28.2 pg (27.0-33.0); Mean Corpuscular Volume 89.1 fL (80.0-98.0); Mean Platelet Volume 11.3 fL (9.4-12.3); Monocytes Absolute Auto 0.4 X10*3/uL (0.1-1.2); Neutrophils Absolute Auto 10.6 x10*3/uL (2.0-8.3); Neutrophils Percent Auto 85.8 % (45-73); Platelet Count 277 X10*3/uL (160-400); Red Blood Count 2.94 X10*6/uL (4.20-5.50); Red Cell Distribution Width 15.6 % (11.0-16.0); White Blood Count 12.4 X10*3/uL (4.8-10.8)
[2021-08-20 05:56] LABS: Alanine Aminotransferase 28 U/L (0-31); Albumin Level 2.4 g/dL (3.5-5.0); Alkaline Phosphatase 573 U/L (39-117); Anion Gap 16 (12-20); Aspartate Amino Transferase 36 U/L (5-31); Bilirubin Direct 0.9 mg/dL (0.0-0.5); Bilirubin Total 1.4 mg/dL (0.0-1.0); Blood Urea Nitrogen 42 mg/dL (9-16); Calcium 8.5 mg/dL (8.4-10.2); Carbon Dioxide 18 mmol/L (22-29); Chloride 103 mmol/L (96-108); Creatinine Clr Calc Pharmacy 61.4; Estimated Glomerular Filt Rate 30; Glucose Random 312 mg/dL (60-115); Magnesium 1.7 mg/dL (1.6-2.6); Phosphorus 3.8 mg/dL (2.7-4.5); Potassium 5.2 mmol/L (3.3-5.1); Sodium 132 mmol/L (135-145); Total Protein 6.9 g/dL (6.5-8.0)
[2021-08-20] MEDS: Levothyroxine Sodium 200 MCG TABLET PO (06:26)
--- NOTE | 2021-08-20 06:59 | P.PNCC_ITS ---
Subjective Subjective Date of Service: 08/20/21 Interval History: And 51-year-old morbidly obese insulin-dependent type 2 diabetic hyperlipidemic and hypertensive polysubstance abuse currently on a Suboxone program but continues to abuse came in with acute hypoxemic respiratory failure and in ARDS like picture but clearly representing cocaine lung toxicity probably with a component of noncardiogenic pulmonary edema with bedside echo showing preserved LV and RV function and she was just status post placement of ureteral stent for hydronephrosis and currently probably having a little bit of a postobstructive diuresis overnight was negative about 3 L all told remains afebrile and slightly clearing chest x-ray by comparison no other complications in other words no evidence of barotrauma no increased infiltrate density It clearly has some what appears to be chronic stage III renal failure the those numbers do not seem to be improving but she also had evidence of evidence of biliary obstruction with dilated common bile duct as well as intrahepatic ducts and significantly elevated alkaline phosphatase and bilirubin and those numbers are resolving at this point and ERs and ERCP was not done and otherwise of because of E coli urinary tract infection remains on ceftriaxone Critical Care Time (minutes): 30 Physical Exam Vital Signs: Vital Signs: Last Vital Signs Temp 99.3 F 08/19/21 16:00 Pulse 69 08/20/21 06:00 Resp 18 08/20/21 06:06 BP 134/71 08/20/21 06:00 Pulse Ox 92 08/20/21 05:00 Oxygen Flow Rate 50 08/19/21 01:47 BMI result Body Mass Index 57.2 Blood pressure 133/70 Normal mental status and nonfocal neurologic Normal LV and RV function by bedside echo Scattered rale is bilaterally but no accessory muscle use today as there had been before Abdomen is benign no organomegaly Skin intact with no edema Objective Data Labs CBC & Chem 7: 08/20/21 05:20 08/20/21 05:20 Labs: Laboratory Results - last 24 hr 08/19/21 08/19/21 08/19/21 07:14 11:09 11:39 WBC RBC Hgb Hct MCV MCH MCHC RDW Plt Count MPV Immature Gran % (Auto) Neut % (Auto) Lymph % (Auto) [place] % (Auto) Eos % (Auto) Baso % (Auto) Lymph # (Auto) [place] # (Auto) Eos # (Auto) Baso # (Auto) Abs Immat Gran (auto) Absolute Neuts (auto) Absolute Nucleated RBC Nucleated RBC % (auto) VBG pH 7.35 VBG pCO2 38 VBG pO2 52 VBG HCO3 22 VBG O2 Saturation 70.0 VBG Base Excess -3.1 Sodium Potassium Chloride Carbon Dioxide Anion Gap BUN Creatinine Estim Creat Clear Calc Estimated GFR POC Glucose 85 156 H Random Glucose Calcium Phosphorus Magnesium Total Bilirubin Direct Bilirubin AST ALT Alkaline Phosphatase Total Protein Albumin 08/20/21 08/20/21 08/20/21 05:18 05:20 05:20 WBC 12.4 H RBC 2.94 L Hgb 8.3 L Hct 26.2 L MCV 89.1 MCH 28.2 MCHC 31.7 RDW 15.6 Plt Count 277 MPV 11.3 Immature Gran % (Auto) 2.2 H Neut % (Auto) 85.8 H Lymph % (Auto) 8.9 L [place] % (Auto) 3.0 Eos % (Auto) 0.0 Baso % (Auto) 0.1 Lymph # (Auto) 1.1 L [place] # (Auto) 0.4 Eos # (Auto) 0.0 Baso # (Auto) 0.0 Abs Immat Gran (auto) 0.27 H Absolute Neuts (auto) 10.6 H Absolute Nucleated RBC 0.000 Nucleated RBC % (auto) 0.0 VBG pH 7.40 VBG pCO2 32 VBG pO2 81 VBG HCO3 20 L VBG O2 Saturation 94.0 VBG Base Excess -3.1 Sodium 132 L Potassium 5.2 H Chloride 103 Carbon Dioxide 18 L Anion Gap 16 BUN 42 H Creatinine 1.77 H Estim Creat Clear Calc 61.4 Estimated GFR 30 POC Glucose Random Glucose 312 H Calcium 8.5 Phosphorus 3.8 Magnesium 1.7 Total Bilirubin 1.4 H Direct Bilirubin 0.9 H AST 36 H ALT 28 Alkaline Phosphatase 573 H Total Protein 6.9 Albumin 2.4 L Microbiology Microbiology Results: Microbiology 08/18/21 20:32 Blood - Venous Blood Culture - Preliminary No growth after 24 hours. 08/18/21 20:32 Blood - Venous Blood Culture - Preliminary No growth after 24 hours. Progress Note: A&P Assessment and plan (1) Morbid obesity: Status: Acute (2) Hypersensitivity pneumonitis: Status: Acute (3) Noncardiogenic pulmonary edema: Status: Acute (4) Acute hypoxemic respiratory failure: Status: Acute (5) RADHIKA (acute kidney injury): Status: Acute (6) UTI (urinary tract infection): Status: Acute (7) Cocaine abuse: Status: Acute (8) Acute respiratory distress syndrome (ARDS): Status: Acute (9) Hydroureteronephrosis: Status: Acute (10) Choledocholithiasis: Status: Acute (11) Elevated LFTs: Status: Acute (12) Pyelonephritis: Status: Acute (13) Common bile duct dilatation: Status: Acute Plan Plan is to continue with the ceftriaxone and I do not feel that steroids are necessary to continue Continues to need the high-flow and and high FiO2 oxygen support Quality Stroke Does the patient have a stroke diagnosis?: No VTE Prior VTE?: No VTE Risk Level:: Medical - low VTE Device Contraindication: N/A - Device Ordered VTE Drug Contraindication: N/A - Med Ordered
[2021-08-20 07:26] LABS: Glucose, Whole Blood 290 mg/dL (60-115)
[2021-08-20] MEDS: FLUoxetine HCl 20 MG CAPSULE 60 MG PO (08:17)
[2021-08-20] MEDS: Gabapentin 600 MG TABLET PO ×3 (08:17→20:53)
[2021-08-20] MEDS: clonazePAM 0.5 MG TABLET PO (08:18)
[2021-08-20] MEDS: Buprenorphine/Naloxone 8/2 mg FILM 1 FILM SUBLINGUAL ×3 (08:18→20:53)
[2021-08-20] MEDS: Insulin Lispro 100 UNIT/ML 3 ML VIAL SUBCUT ×4 (08:18→20:53)
[2021-08-20] MEDS: cefTRIAXone sodium 1 GM in 0.9 % Sodium Chloride 50 ML IV (08:19)
[2021-08-20] MEDS: Insulin Glargine,Hum.rec.anlog 100 UNIT/ML 10 ML VIAL 15 UNIT SUBCUT (11:50)
[2021-08-20 11:52] LABS: Glucose, Whole Blood 372 mg/dL (60-115)
[2021-08-20 14:49] LABS: Lactate Dehydrogenase 532 U/L (122-220)
[2021-08-20 16:04] LABS: Glucose, Whole Blood 430 mg/dL (60-115)
[2021-08-20] MEDS: levoFLOXacin/D5W 250 MG/50 ML PIGGYBACK 50 MG IV (16:17)
[2021-08-20] MEDS: Insulin Regular, Human 100 UNIT/ML 3 ML VIAL IVPUSH (16:18)
[2021-08-20 16:19] LABS: VBG Base Excess -2.8 mmol/L; VBG HCO3 21 mmol/L (22-26); VBG pCO2 35 mmHg; VBG pH 7.38 (7.32-7.43); VBG pO2 65 mmHg
[2021-08-20 16:48] LABS: Anion Gap 18 (12-20); Blood Urea Nitrogen 49 mg/dL (9-16); Calcium 8.2 mg/dL (8.4-10.2); Carbon Dioxide 18 mmol/L (22-29); Chloride 100 mmol/L (96-108); Creatinine Clr Calc Pharmacy 60.3; Estimated Glomerular Filt Rate 29; Glucose Random 471 mg/dL (60-115); Potassium 5.7 mmol/L (3.3-5.1); Sodium 130 mmol/L (135-145)
[2021-08-20 16:55] LABS: Glucose, Whole Blood 366 mg/dL (60-115)
[2021-08-20 20:44] LABS: Glucose, Whole Blood 435 mg/dL (60-115)
[2021-08-20 20:47] LABS: Venous Blood Gas Refer to POC result
[2021-08-20] MEDS: Sodium Bicarbonate 650 MG TABLET PO (20:53)
[2021-08-20] MEDS: Insulin Glargine,Hum.rec.anlog 100 UNIT/ML 10 ML VIAL 25 UNIT SUBCUT ×2 (20:54→21:21)
[2021-08-20] MEDS: traZODone HCL 25 MG HALFTAB 12.5 MG PO (21:22)
[2021-08-21] VITALS (23 sets, daily range): BP systolic 95–125; BP diastolic 49–73; PULSE 52–73; RESP 7–21; TEMP 36.7–37.5; O2SAT 89–98; BMI 57.3
[2021-08-21 00:57] LABS: Glucose, Whole Blood 429 mg/dL (60-115)
[2021-08-21] MEDS: Enoxaparin Sodium 40 MG/0.4 ML SYRINGE SUBCUT ×3 (01:26→21:04)
[2021-08-21] MEDS: Insulin Lispro 100 UNIT/ML 3 ML VIAL SUBCUT ×5 (01:27→21:04)
[2021-08-21 05:35] LABS: VBG Base Excess -1.1 mmol/L; VBG HCO3 23 mmol/L (22-26); VBG pCO2 36 mmHg; VBG pO2 99 mmHg
[2021-08-21 05:36] LABS: Venous Blood Gas Refer to POC result
[2021-08-21 05:41] LABS: MANUAL DIFF FLAG NO
[2021-08-21 05:43] LABS: Basophils Percent Auto 0.1 % (0-2); Eosinophils Percent Auto 0.2 % (0-4); Hematocrit 25.4 % (37.0-47.0); Hemoglobin 8.2 g/dl (12.0-16.0); Imm Gran Abs Auto 0.16 X10*3/uL (0.00-0.03); Imm Gran Pct Auto 1.3 % (0.0-0.4); Lymphocytes Absolute Auto 1.5 X10*3/uL (1.2-4.9); Lymphocytes Percent Auto 11.9 % (20-40); Mean Corpuscular HGB Conc 32.3 g/dl (31.0-35.0); Mean Corpuscular Hemoglobin 28.8 pg (27.0-33.0); Mean Corpuscular Volume 89.1 fL (80.0-98.0); Mean Platelet Volume 10.9 fL (9.4-12.3); Monocytes Absolute Auto 0.6 X10*3/uL (0.1-1.2); Monocytes Percent Auto 4.9 % (2-11); Neutrophils Absolute Auto 10.1 x10*3/uL (2.0-8.3); Neutrophils Percent Auto 81.6 % (45-73); Platelet Count 277 X10*3/uL (160-400); Red Blood Count 2.85 X10*6/uL (4.20-5.50); Red Cell Distribution Width 15.5 % (11.0-16.0); White Blood Count 12.4 X10*3/uL (4.8-10.8)
[2021-08-21 06:10] LABS: Glucose, Whole Blood 354 mg/dL (60-115)
[2021-08-21] MEDS: Levothyroxine Sodium 200 MCG TABLET PO (06:27)
[2021-08-21 06:30] LABS: Alanine Aminotransferase 30 U/L (0-31); Albumin Level 2.4 g/dL (3.5-5.0); Alkaline Phosphatase 518 U/L (39-117); Anion Gap 16 (12-20); Aspartate Amino Transferase 47 U/L (5-31); Bilirubin Direct 0.6 mg/dL (0.0-0.5); Blood Urea Nitrogen 53 mg/dL (9-16); Calcium 8.6 mg/dL (8.4-10.2); Carbon Dioxide 20 mmol/L (22-29); Chloride 101 mmol/L (96-108); Creatinine Clr Calc Pharmacy 60.6; Estimated Glomerular Filt Rate 30; Glucose Random 357 mg/dL (60-115); Magnesium 1.9 mg/dL (1.6-2.6); Phosphorus 3.2 mg/dL (2.7-4.5); Potassium 5.6 mmol/L (3.3-5.1); Sodium 131 mmol/L (135-145); Total Protein 6.9 g/dL (6.5-8.0)
[2021-08-21] MEDS: Insulin Regular, Human 100 UNIT/ML 3 ML VIAL IVPUSH (06:44)
[2021-08-21 07:29] LABS: Glucose, Whole Blood 308 mg/dL (60-115)
[2021-08-21] MEDS: clonazePAM 0.5 MG TABLET PO ×2 (07:36→20:35)
[2021-08-21 07:50] LABS: Cortisol Random 2.6 ug/dL
[2021-08-21] MEDS: Gabapentin 600 MG TABLET PO ×3 (08:13→20:33)
[2021-08-21] MEDS: Buprenorphine/Naloxone 8/2 mg FILM 1 FILM SUBLINGUAL ×3 (08:13→20:32)
[2021-08-21] MEDS: FLUoxetine HCl 20 MG CAPSULE 60 MG PO (08:13)
[2021-08-21] MEDS: Sodium Bicarbonate 650 MG TABLET PO ×2 (08:15→20:32)
[2021-08-21] MEDS: Insulin Glargine,Hum.rec.anlog 100 UNIT/ML 10 ML VIAL 30 UNIT SUBCUT (08:15)
--- NOTE | 2021-08-21 11:10 | PM.CCPN ---
Subjective Subjective Date of Service: 08/21/21 Interval History: 51-year-old morbidly obese individual just several days status post cystoscopy with ureteral stent placement for right-sided hydronephrosis and the currently I believe a postobstructive diuresis is taking place she has got chronic stage III renal failure and she is hyponatremic and hyperkalemic as well and we just had to replace the [place] because she continue to retain urine clearly has bladder outlet obstructionFollowing a postobstructive diuresis she demonstrates hyponatremia and hyperkalemia and persistent stage III level of renal failure but breathing has improved simultaneously chest x-ray showing continued clearing and she likely had cocaine lung toxicity representing a combination of factors including noncardiogenic pulmonary edema etc. and following 1 dose of steroids and support on nasal high-flow she has been weaned from 60 liters/minute of flow and 100% oxygen to 45 liters/minute and 80% otherwise remains on a Suboxone regimen Critical Care Time (minutes): 45 Physical Exam Vital Signs: Vital Signs: Last Vital Signs Temp 99.3 F 08/21/21 10:00 Pulse 72 08/21/21 10:00 Resp 18 08/21/21 11:05 BP 107/53 L 08/21/21 10:00 Pulse Ox 92 08/21/21 10:00 Oxygen Flow Rate 50 08/19/21 01:47 BMI result Body Mass Index 57.3 awake alert and oriented and nonfocal bedside echo describing preserved LV function abdomen obese but no organome gali lungs with diminished breath sounds bilaterally but no adventitious sounds skin intact Objective Data Labs CBC & Chem 7: 08/21/21 05:31 08/21/21 05:31 Labs: Laboratory Results - last 24 hr 08/20/21 08/20/21 08/20/21 11:24 14:04 14:21 WBC RBC Hgb Hct MCV MCH MCHC RDW Plt Count MPV Immature Gran % (Auto) Neut % (Auto) Lymph % (Auto) [place] % (Auto) Eos % (Auto) Baso % (Auto) Lymph # (Auto) [place] # (Auto) Eos # (Auto) Baso # (Auto) Abs Immat Gran (auto) Absolute Neuts (auto) Absolute Nucleated RBC Nucleated RBC % (auto) VBG pH VBG pCO2 VBG pO2 VBG HCO3 VBG O2 Saturation VBG Base Excess Sodium Potassium Chloride Carbon Dioxide Anion Gap BUN Creatinine Estim Creat Clear Calc Estimated GFR POC Glucose 372 H* Random Glucose Calcium Phosphorus Magnesium Total Bilirubin Direct Bilirubin AST ALT Alkaline Phosphatase Lactate Dehydrogenase 532 H Total Protein Albumin Random Cortisol KODY, Polyspecific NEGATIVE Positive KODY Work-up TNP 08/20/21 08/20/21 08/20/21 16:01 16:12 16:12 WBC RBC Hgb Hct MCV MCH MCHC RDW Plt Count MPV Immature Gran % (Auto) Neut % (Auto) Lymph % (Auto) [place] % (Auto) Eos % (Auto) Baso % (Auto) Lymph # (Auto) [place] # (Auto) Eos # (Auto) Baso # (Auto) Abs Immat Gran (auto) Absolute Neuts (auto) Absolute Nucleated RBC Nucleated RBC % (auto) VBG pH 7.38 VBG pCO2 35 VBG pO2 65 VBG HCO3 21 L VBG O2 Saturation 86.0 VBG Base Excess -2.8 Sodium 130 L Potassium 5.7 H Chloride 100 Carbon Dioxide 18 L Anion Gap 18 BUN 49 H Creatinine 1.82 H Estim Creat Clear Calc 60.3 Estimated GFR 29 POC Glucose 430 H* Random Glucose 471 H* Calcium 8.2 L Phosphorus Magnesium Total Bilirubin Direct Bilirubin AST ALT Alkaline Phosphatase Lactate Dehydrogenase Total Protein Albumin Random Cortisol KODY, Polyspecific Positive KODY Work-up 08/20/21 08/20/21 08/21/21 16:53 20:42 00:54 WBC RBC Hgb Hct MCV MCH MCHC RDW Plt Count MPV Immature Gran % (Auto) Neut % (Auto) Lymph % (Auto) [place] % (Auto) Eos % (Auto) Baso % (Auto) Lymph # (Auto) [place] # (Auto) Eos # (Auto) Baso # (Auto) Abs Immat Gran (auto) Absolute Neuts (auto) Absolute Nucleated RBC Nucleated RBC % (auto) VBG pH VBG pCO2 VBG pO2 VBG HCO3 VBG O2 Saturation VBG Base Excess Sodium Potassium Chloride Carbon Dioxide Anion Gap BUN Creatinine Estim Creat Clear Calc Estimated GFR POC Glucose 366 H* 435 H* 429 H* Random Glucose Calcium Phosphorus Magnesium Total Bilirubin Direct Bilirubin AST ALT Alkaline Phosphatase Lactate Dehydrogenase Total Protein Albumin Random Cortisol KODY, Polyspecific Positive KODY Work-up 08/21/21 08/21/21 08/21/21 05:28 05:31 05:31 WBC 12.4 H RBC 2.85 L Hgb 8.2 L Hct 25.4 L MCV 89.1 MCH 28.8 MCHC 32.3 RDW 15.5 Plt Count 277 MPV 10.9 Immature Gran % (Auto) 1.3 H Neut % (Auto) 81.6 H Lymph % (Auto) 11.9 L [place] % (Auto) 4.9 Eos % (Auto) 0.2 Baso % (Auto) 0.1 Lymph # (Auto) 1.5 [place] # (Auto) 0.6 Eos # (Auto) 0.0 Baso # (Auto) 0.0 Abs Immat Gran (auto) 0.16 H Absolute Neuts (auto) 10.1 H Absolute Nucleated RBC 0.000 Nucleated RBC % (auto) 0.0 VBG pH 7.40 VBG pCO2 36 VBG pO2 99 VBG HCO3 23 VBG O2 Saturation 97.0 VBG Base Excess -1.1 Sodium 131 L Potassium 5.6 H Chloride 101 Carbon Dioxide 20 L Anion Gap 16 BUN 53 H Creatinine 1.81 H Estim Creat Clear Calc 60.6 Estimated GFR 30 POC Glucose Random Glucose 357 H* Calcium 8.6 Phosphorus 3.2 Magnesium 1.9 Total Bilirubin 1.0 Direct Bilirubin 0.6 H AST 47 H ALT 30 Alkaline Phosphatase 518 H Lactate Dehydrogenase Total Protein 6.9 Albumin 2.4 L Random Cortisol KODY, Polyspecific Positive KODY Work-up 08/21/21 08/21/21 08/21/21 06:02 06:47 07:26 WBC RBC Hgb Hct MCV MCH MCHC RDW Plt Count MPV Immature Gran % (Auto) Neut % (Auto) Lymph % (Auto) [place] % (Auto) Eos % (Auto) Baso % (Auto) Lymph # (Auto) [place] # (Auto) Eos # (Auto) Baso # (Auto) Abs Immat Gran (auto) Absolute Neuts (auto) Absolute Nucleated RBC Nucleated RBC % (auto) VBG pH VBG pCO2 VBG pO2 VBG HCO3 VBG O2 Saturation VBG Base Excess Sodium Potassium Chloride Carbon Dioxide Anion Gap BUN Creatinine Estim Creat Clear Calc Estimated GFR POC Glucose 354 H* 308 H Random Glucose Calcium Phosphorus Magnesium Total Bilirubin Direct Bilirubin AST ALT Alkaline Phosphatase Lactate Dehydrogenase Total Protein Albumin Random Cortisol 2.6 KODY, Polyspecific Positive KODY Work-up Microbiology Microbiology Results: Microbiology 08/18/21 20:32 Blood - Venous Blood Culture - Preliminary No growth after 48 hours. 08/18/21 20:32 Blood - Venous Blood Culture - Preliminary No growth after 48 hours. Progress Note: A&P Assessment and plan (1) Morbid obesity: Status: Acute (2) Hypersensitivity pneumonitis: Status: Acute (3) Noncardiogenic pulmonary edema: Status: Acute (4) Acute hypoxemic respiratory failure: Status: Acute (5) RADHIKA (acute kidney injury): Status: Acute (6) UTI (urinary tract infection): Status: Acute (7) Cocaine abuse: Status: Acute (8) Acute respiratory distress syndrome (ARDS): Status: Acute (9) Hydroureteronephrosis: Status: Acute (10) Choledocholithiasis: Status: Acute (11) Elevated LFTs: Status: Acute (12) Pyelonephritis: Status: Acute (13) Common bile duct dilatation: Status: Acute Plan status post acute hypoxemic respiratory failure based on cocaine lung toxicity which is resolving oxygen support is now being weaned so I believe she is more stable and in line for transfer to the floor for continued support Quality Stroke Does the patient have a stroke diagnosis?: No VTE Prior VTE?: No VTE Risk Level:: Medical - low VTE Device Contraindication: N/A - Device Ordered VTE Drug Contraindication: N/A - Med Ordered
[2021-08-21 11:25] LABS: Glucose, Whole Blood 348 mg/dL (60-115)
[2021-08-21] MEDS: Insulin Glargine,Hum.rec.anlog 100 UNIT/ML 10 ML VIAL 15 UNIT SUBCUT (11:43)
[2021-08-21] MEDS: levoFLOXacin/D5W 250 MG/50 ML PIGGYBACK 50 MG IV (14:30)
[2021-08-21 16:39] LABS: Glucose, Whole Blood 285 mg/dL (60-115)
[2021-08-21] MEDS: traZODone HCL 25 MG HALFTAB PO (20:33)
[2021-08-21 20:42] LABS: Glucose, Whole Blood 265 mg/dL (60-115)
[2021-08-21] MEDS: Insulin Glargine,Hum.rec.anlog 100 UNIT/ML 10 ML VIAL 50 UNIT SUBCUT (21:03)
[2021-08-22] VITALS (10 sets, daily range): BP systolic 109–154; BP diastolic 58–73; PULSE 60–80; RESP 16–22; TEMP 36.1–36.8; O2SAT 90–100; BMI 58.5
[2021-08-22 06:05] LABS: MANUAL DIFF FLAG NO
[2021-08-22 06:07] LABS: Basophils Percent Auto 0.2 % (0-2); Eosinophils Absolute Auto 0.2 X10*3/uL (0.0-0.4); Hemoglobin 8.7 g/dl (12.0-16.0); Imm Gran Abs Auto 0.16 X10*3/uL (0.00-0.03); Imm Gran Pct Auto 1.4 % (0.0-0.4); Lymphocytes Absolute Auto 2.8 X10*3/uL (1.2-4.9); Lymphocytes Percent Auto 24.2 % (20-40); Mean Corpuscular HGB Conc 31.1 g/dl (31.0-35.0); Mean Corpuscular Hemoglobin 28.3 pg (27.0-33.0); Mean Corpuscular Volume 91.2 fL (80.0-98.0); Mean Platelet Volume 10.8 fL (9.4-12.3); Monocytes Absolute Auto 0.9 X10*3/uL (0.1-1.2); Monocytes Percent Auto 7.5 % (2-11); Neutrophils Absolute Auto 7.5 x10*3/uL (2.0-8.3); Neutrophils Percent Auto 64.7 % (45-73); Platelet Count 268 X10*3/uL (160-400); Red Blood Count 3.07 X10*6/uL (4.20-5.50); Red Cell Distribution Width 15.6 % (11.0-16.0); White Blood Count 11.5 X10*3/uL (4.8-10.8)
[2021-08-22] MEDS: Levothyroxine Sodium 200 MCG TABLET PO (06:15)
[2021-08-22 06:16] LABS: VBG HCO3 23 mmol/L (22-26); VBG pCO2 39 mmHg; VBG pH 7.38 (7.32-7.43); VBG pO2 73 mmHg
[2021-08-22 06:17] LABS: Venous Blood Gas Refer to POC result
[2021-08-22 06:42] LABS: Alanine Aminotransferase 42 U/L (0-31); Albumin Level 2.4 g/dL (3.5-5.0); Alkaline Phosphatase 535 U/L (39-117); Anion Gap 14 (12-20); Aspartate Amino Transferase 66 U/L (5-31); Bilirubin Direct 0.5 mg/dL (0.0-0.5); Bilirubin Total 0.9 mg/dL (0.0-1.0); Blood Urea Nitrogen 52 mg/dL (9-16); Calcium 8.4 mg/dL (8.4-10.2); Carbon Dioxide 21 mmol/L (22-29); Chloride 102 mmol/L (96-108); Creatinine Clr Calc Pharmacy 71.3; Estimated Glomerular Filt Rate 35; Glucose Random 174 mg/dL (60-115); Magnesium 1.8 mg/dL (1.6-2.6); Phosphorus 2.9 mg/dL (2.7-4.5); Potassium 5.3 mmol/L (3.3-5.1); Sodium 132 mmol/L (135-145); Total Protein 6.9 g/dL (6.5-8.0)
[2021-08-22 07:23] LABS: Glucose, Whole Blood 143 mg/dL (60-115)
[2021-08-22] MEDS: Insulin Lispro 100 UNIT/ML 3 ML VIAL SUBCUT ×4 (08:08→20:49)
[2021-08-22] MEDS: Sodium Bicarbonate 650 MG TABLET PO ×2 (08:09→20:48)
[2021-08-22] MEDS: FLUoxetine HCl 20 MG CAPSULE 60 MG PO (08:09)
[2021-08-22] MEDS: Gabapentin 600 MG TABLET PO ×3 (08:09→20:49)
[2021-08-22] MEDS: Insulin Glargine,Hum.rec.anlog 100 UNIT/ML 10 ML VIAL 50 UNIT SUBCUT ×2 (09:09→20:49)
[2021-08-22] MEDS: clonazePAM 0.5 MG TABLET PO (09:10)
[2021-08-22] MEDS: Buprenorphine/Naloxone 8/2 mg FILM 1 FILM SUBLINGUAL ×3 (09:10→20:48)
[2021-08-22] MEDS: Sodium Zirconium Cyclosilicate 10 GM POWD.PACK PO (09:46)
--- NOTE | 2021-08-22 11:08 | MHC.CM.PN ---
Patient is not yet medically cleared for dc (IV Levaquin, needs PT eval and Care Team consult(Suboxone);CM will continue to follow.
[2021-08-22 11:27] LABS: HBS Num1 84.87 mIU/mL (0-7.99); HBc Num1 6.95 S/CO (0.00-0.79); HIV AB/AG Nonreactive (Nonreactive); HIV Num 1 0.07 S/CO (0.00-0.99); Hepatitis B Surface Antigen Negative (Negative); ~HepC Num1 9.26 S/CO (0.00-0.79); ~Hepatitis B Surface Antibody REACTIVE (Nonreactive); ~Hepatitis C Antibody Reactive (Nonreactive)
[2021-08-22 11:30] LABS: Glucose, Whole Blood 209 mg/dL (60-115)
[2021-08-22] MEDS: Sennosides/Docusate Sodium TABLET 2 TAB PO (11:54)
[2021-08-22] MEDS: polyethylene glycoL 3350 17 GM POWD.PACK PO (11:54)
--- NOTE | 2021-08-22 12:49 | MHC.RECOVRN ---
Met with pt in [id number] after consult placed to CARE Team for substance use. Pt reports hx opiates, was on methadone for 17 years and has now been on Suboxone x 6 years. Pt unsure of when last intentional opiate use was, reports fentanyl was in the crack cocaine used prior to arrival. Pt states I smoke once in a while but not all the time. This scared me so no more. Pt reports substance was from a different supplier, discussed harm reduction and using same supplier. Pt provided with recovery resources and outpatient support information. Pt would like to see a recovery auditor while inpatient, t/w will arrange. Pt denies questions or concerns at this time. Provided with t/w contact information if needed.
[2021-08-22 12:53] LABS: HBc Num2 6.77 S/CO; HBc Num3 6.87 S/CO; Hepatitis B Core Antibody Reactive (Nonreactive)
[2021-08-22] MEDS: Enoxaparin Sodium 40 MG/0.4 ML SYRINGE SUBCUT (13:53)
[2021-08-22] MEDS: levoFLOXacin/D5W 250 MG/50 ML PIGGYBACK 100 MG IV (13:57)
--- NOTE | 2021-08-22 14:11 | PC.NURSE ---
1400 F/C removed at this time
--- NOTE | 2021-08-22 14:12 | P.PNIM_ITS ---
Subjective Subjective Date of Service: 08/22/21 Interval History: Breathing improved Weaned from HFNC to 5L via NC Dry cough Review of Systems Review of Systems: Yes all other systems are reviewed and are negative Physical Exam Vital Signs: Vital Signs: Last Vital Signs Temp 97.9 F 08/22/21 11:25 Pulse 66 08/22/21 11:25 Resp 18 08/22/21 11:25 BP 123/68 08/22/21 11:25 Pulse Ox 95 08/22/21 11:25 Body Mass Index 58.5 Gen: in no acute distress HEENT: sclera anicteric, moist mucus membranes Neck: supple Lungs: diminished bilaterally, no crackles Heart: regular rate and rhythm, no murmurs Abd: soft, non-tender, non-distended, morbid obesity, Calloway draining clear urine Ext: no edema Skin: warm/well-perfused Neuro: alert and oriented x3, no focal findings Psych: appropriate affect Objective Data Active Medications Albuterol Sulfate (Albuterol Sulfate 90 Mcg 8 Gm Inhaler) 2 puff INHALE Q4H PRN PRN Reason: wheezing Buprenorphine/Naloxone (Buprenorphine/Naloxone 8/2 Mg Film) 1 film SUBLINGUAL TID [facility] Last Admin: 08/22/21 09:10 Dose: 1 film Documented by: FRANCOISE Clonazepam (Clonazepam 0.5 Mg Tablet) 0.5 mg PO DAILY PRN PRN Reason: Anxiety Last Admin: 08/22/21 09:10 Dose: 0.5 mg Documented by: FRANCOISE Dextrose (Dextrose 50 % 25 Gm/50 Ml Vial) 25 gm IVPUSH Q15M PRN; Protocol PRN Reason: per Hypoglycemia Standing Ord. Dextrose (Dextrose 50 % 25 Gm/50 Ml Vial) 25 gm IVPUSH Q15M PRN; Protocol PRN Reason: per Hypoglycemia Standing Ord. Enoxaparin Sodium (Enoxaparin Sodium 40 Mg/0.4 Ml Syringe) 40 mg SUBCUT Q12H [facility] Last Admin: 08/22/21 13:53 Dose: 40 mg Documented by: FRANCOISE Fluoxetine HCl (Fluoxetine Hcl 20 Mg Capsule) 60 mg PO DAILY [facility] Last Admin: 08/22/21 08:09 Dose: 60 mg Documented by: FRANCOISE Gabapentin (Gabapentin 600 Mg Tablet) 600 mg PO TID [facility] Last Admin: 08/22/21 08:09 Dose: 600 mg Documented by: FRANCOISE Glucose (Glucose Gel 15 Gm Gel..Gram.) 15 gm PO Q15M PRN; Protocol PRN Reason: per Hypoglycemia Standing Ord. Glucose (Glucose Gel 15 Gm Gel..Gram.) 15 gm PO Q15M PRN; Protocol PRN Reason: per Hypoglycemia Standing Ord. Levofloxacin (Levaquin) 250 mg in 50 mls @ 50 mls/hr IV Q24H [facility] Last Admin: 08/22/21 13:57 Dose: 100 mls/hr Documented by: FRANCOISE Insulin Glargine (Insulin Glargine,Hum.Rec.Anlog 100 Unit/Ml 10 Ml Vial) 50 unit SUBCUT BEDTIME [facility] Last Admin: 08/21/21 21:03 Dose: 50 unit Documented by: JEFF Insulin Glargine (Insulin Glargine,Hum.Rec.Anlog 100 Unit/Ml 10 Ml Vial) 50 unit SUBCUT DAILY [facility] Last Admin: 08/22/21 09:09 Dose: 50 unit Documented by: FRANCOISE Insulin Human Lispro (Insulin Lispro 100 Unit/Ml 3 Ml Vial) 0 unit SUBCUT QIDACHS [facility]; Protocol Last Admin: 08/22/21 11:53 Dose: 6 unit Documented by: FRANCOISE Levothyroxine Sodium (Levothyroxine Sodium 200 Mcg Tablet) 200 mcg PO MAGED LY@0630 [facility] Last Admin: 08/22/21 06:15 Dose: 200 mcg Documented by: JEFF Pharmacy Consult (Consult Rx Perform Med Rec) 1 each MISCELLANE ONCE PRN PRN Reason: Consult order Polyethylene Glycol (Polyethylene Glycol 3350 17 Gm Powd.Pack) 17 gm PO DAILY [facility] Last Admin: 08/22/21 11:54 Dose: 17 gm Documented by: FRANCOISE Senna/Docusate Sodium (Sennosides/Docusate Sodium Tablet) 2 tab PO BID [facility] Last Admin: 08/22/21 11:54 Dose: 2 tab Documented by: FRANCOISE Sodium Bicarbonate (Sodium Bicarbonate 650 Mg Tablet) 650 mg PO BID [facility] Last Admin: 08/22/21 08:09 Dose: 650 mg Documented by: FRANCOISE Trazodone HCl (Trazodone Hcl 25 Mg Halftab) 25 mg PO BEDTIME [facility] Last Admin: 08/21/21 20:33 Dose: 25 mg Documented by: JEFF Labs CBC & Chem 7: 08/22/21 06:00 08/22/21 06:00 Labs: Laboratory Results - last 24 hr 08/21/21 08/21/21 08/22/21 16:29 20:38 06:00 MCV 91.2 MCH 28.3 MCHC 31.1 RDW 15.6 Plt Count 268 MPV 10.8 Immature Gran % (Auto) 1.4 H Neut % (Auto) 64.7 Lymph % (Auto) 24.2 [place] % (Auto) 7.5 Eos % (Auto) 2.0 Baso % (Auto) 0.2 Lymph # (Auto) 2.8 [place] # (Auto) 0.9 Eos # (Auto) 0.2 Baso # (Auto) 0.0 Abs Immat Gran (auto) 0.16 H Absolute Neuts (auto) 7.5 Absolute Nucleated RBC 0.000 Nucleated RBC % (auto) 0.0 VBG pH VBG pCO2 VBG pO2 VBG HCO3 VBG O2 Saturation VBG Base Excess Anion Gap Estim Creat Clear Calc Estimated GFR POC Glucose 285 H 265 H Random Glucose Calcium Phosphorus Magnesium Total Bilirubin Direct Bilirubin AST ALT Alkaline Phosphatase Total Protein Albumin Hep Bs Antigen Hep Bs Antibody Hep B Core Total Ab Hep B Core IgM Ab Hepatitis C Ab (EIA) HIV 1&2 Ab/P24 Ag 4thGn 08/22/21 08/22/21 08/22/21 06:00 06:04 07:07 MCV MCH MCHC RDW Plt Count MPV Immature Gran % (Auto) Neut % (Auto) Lymph % (Auto) [place] % (Auto) Eos % (Auto) Baso % (Auto) Lymph # (Auto) [place] # (Auto) Eos # (Auto) Baso # (Auto) Abs Immat Gran (auto) Absolute Neuts (auto) Absolute Nucleated RBC Nucleated RBC % (auto) VBG pH 7.38 VBG pCO2 39 VBG pO2 73 VBG HCO3 23 VBG O2 Saturation 93.0 VBG Base Excess -1.0 Anion Gap 14 Estim Creat Clear Calc 71.3 Estimated GFR 35 POC Glucose 143 H Random Glucose 174 H Calcium 8.4 Phosphorus 2.9 Magnesium 1.8 Total Bilirubin 0.9 Direct Bilirubin 0.5 AST 66 H ALT 42 H Alkaline Phosphatase 535 H Total Protein 6.9 Albumin 2.4 L Hep Bs Antigen Hep Bs Antibody Hep B Core Total Ab Hep B Core IgM Ab Hepatitis C Ab (EIA) HIV 1&2 Ab/P24 Ag 4thGn 08/22/21 08/22/21 11:24 Unknown MCV MCH MCHC RDW Plt Count MPV Immature Gran % (Auto) Neut % (Auto) Lymph % (Auto) [place] % (Auto) Eos % (Auto) Baso % (Auto) Lymph # (Auto) [place] # (Auto) Eos # (Auto) Baso # (Auto) Abs Immat Gran (auto) Absolute Neuts (auto) Absolute Nucleated RBC Nucleated RBC % (auto) VBG pH VBG pCO2 VBG pO2 VBG HCO3 VBG O2 Saturation VBG Base Excess Anion Gap Estim Creat Clear Calc Estimated GFR POC Glucose 209 H Random Glucose Calcium Phosphorus Magnesium Total Bilirubin Direct Bilirubin AST ALT Alkaline Phosphatase Total Protein Albumin Hep Bs Antigen Negative Hep Bs Antibody REACTIVE Hep B Core Total Ab Reactive Hep B Core IgM Ab Cancelled Hepatitis C Ab (EIA) Reactive H HIV 1&2 Ab/P24 Ag 4thGn Nonreactive Assessment and Plan (1) Choledocholithiasis: Status: Acute (2) Hydroureteronephrosis: Status: Acute Plan hospital d#4 51yo F with DM2, HTN, HLD, nephrolithiasis, morbid obesity, opioid use disorder admitted to [facility] 08/13-08/17/21 for emphysematous pyelonephritis with severe R hydronephrosis for which she underwent R ureteral stenting and was treated for E.coli infection admitted to ICU 08/19/21 with 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, managed with HFNC stepped down to C 08/21/21 # ARDS # cocaine-induced hypersensitivity pneumonitis # acute hypoxic respiratory failure - wean O2 as tolerated # E coli UTI - levofloxacin d#08/06 # RADHIKA/CKD2 - monitor SCr, avoid nephrotoxins # hyperK - mild; give 1 dose SZC + recheck in am # hypothyroidism - LT4 # DM2 - basal/bolus insulin # mood disorder - fluoxetine # cocaine abuse - CARE Team consult # HCV Ab positive - send HCV viral load, to be followed up as outpt - HIV negative, HBV immune from prior infection # OUD - Suboxone # VTE ppx - LMWH # dispo - home with VNA once O2 requirement improved; may require home O2 eval Quality Stroke Does the patient have a stroke diagnosis?: No VTE Prior VTE?: No VTE Risk Level:: Medical - low VTE Device Contraindication: N/A - Device Ordered VTE Drug Contraindication: N/A - Med Ordered
[2021-08-22 16:02] LABS: Glucose, Whole Blood 177 mg/dL (60-115)
[2021-08-22 20:32] LABS: Glucose, Whole Blood 186 mg/dL (60-115)
[2021-08-22] MEDS: traZODone HCL 25 MG HALFTAB PO (20:48)
[2021-08-23] VITALS (7 sets, daily range): BP systolic 94–146; BP diastolic 52–90; PULSE 54–77; RESP 17–21; TEMP 36.1–36.7; O2SAT 90–99; BMI 57.8
[2021-08-23] MEDS: Enoxaparin Sodium 40 MG/0.4 ML SYRINGE SUBCUT ×2 (00:56→15:12)
[2021-08-23] MEDS: Levothyroxine Sodium 200 MCG TABLET PO (06:08)
[2021-08-23 06:43] LABS: Anion Gap 13 (12-20); Blood Urea Nitrogen 50 mg/dL (9-16); Calcium 8.3 mg/dL (8.4-10.2); Carbon Dioxide 24 mmol/L (22-29); Chloride 104 mmol/L (96-108); Creatinine Clr Calc Pharmacy 84.9; Estimated Glomerular Filt Rate 43; Glucose Random 265 mg/dL (60-115); Potassium 5.7 mmol/L (3.3-5.1); Sodium 135 mmol/L (135-145)
[2021-08-23 07:22] LABS: Glucose, Whole Blood 238 mg/dL (60-115)
[2021-08-23] MEDS: Insulin Lispro 100 UNIT/ML 3 ML VIAL SUBCUT ×4 (07:36→21:02)
[2021-08-23] MEDS: Gabapentin 600 MG TABLET PO ×3 (07:37→21:02)
[2021-08-23] MEDS: polyethylene glycoL 3350 17 GM POWD.PACK PO (07:37)
[2021-08-23] MEDS: FLUoxetine HCl 20 MG CAPSULE 60 MG PO (07:37)
[2021-08-23] MEDS: Sennosides/Docusate Sodium TABLET 2 TAB PO (07:37)
[2021-08-23] MEDS: Sodium Bicarbonate 650 MG TABLET PO ×2 (07:37→21:02)
[2021-08-23] MEDS: clonazePAM 0.5 MG TABLET PO (07:43)
[2021-08-23] MEDS: Sodium Zirconium Cyclosilicate 10 GM POWD.PACK PO (09:16)
[2021-08-23] MEDS: Buprenorphine/Naloxone 8/2 mg FILM 1 FILM SUBLINGUAL ×3 (09:16→21:02)
[2021-08-23] MEDS: Insulin Glargine,Hum.rec.anlog 100 UNIT/ML 10 ML VIAL 50 UNIT SUBCUT ×2 (09:17→21:03)
[2021-08-23 11:20] LABS: Glucose, Whole Blood 215 mg/dL (60-115)
[2021-08-23] MEDS: levoFLOXacin/D5W 250 MG/50 ML PIGGYBACK 100 MG IV (15:18)
--- NOTE | 2021-08-23 15:46 | P.PNIM_ITS ---
Subjective Subjective Date of Service: 08/23/21 Interval History: no acute issues overnight. Tolerating O2 wean this a.m. Review of Systems denies chest pain Admit shortness of breath it is improving Denies nausea vomiting diarrhea Physical Exam Vital Signs: Vital Signs: Last Vital Signs Temp 98.0 F 08/23/21 15:02 Pulse 65 08/23/21 15:02 Resp 21 H 08/23/21 15:02 BP 146/67 H 08/23/21 15:02 Pulse Ox 99 08/23/21 15:02 Oxygen Flow Rate 50 08/19/21 01:47 BMI result Body Mass Index 57.8 Objective Data Active Medications Albuterol Sulfate (Albuterol Sulfate 90 Mcg 8 Gm Inhaler) 2 puff INHALE Q4H PRN PRN Reason: wheezing Buprenorphine/Naloxone (Buprenorphine/Naloxone 8/2 Mg Film) 1 film SUBLINGUAL TID [facility] Last Admin: 08/23/21 15:12 Dose: 1 film Documented by: PENNY Clonazepam (Clonazepam 0.5 Mg Tablet) 0.5 mg PO DAILY PRN PRN Reason: Anxiety Last Admin: 08/23/21 07:43 Dose: 0.5 mg Documented by: PENNY Dextrose (Dextrose 50 % 25 Gm/50 Ml Vial) 25 gm IVPUSH Q15M PRN; Protocol PRN Reason: per Hypoglycemia Standing Ord. Dextrose (Dextrose 50 % 25 Gm/50 Ml Vial) 25 gm IVPUSH Q15M PRN; Protocol PRN Reason: per Hypoglycemia Standing Ord. Enoxaparin Sodium (Enoxaparin Sodium 40 Mg/0.4 Ml Syringe) 40 mg SUBCUT Q12H [facility] Last Admin: 08/23/21 15:12 Dose: 40 mg Documented by: PENNY Fluoxetine HCl (Fluoxetine Hcl 20 Mg Capsule) 60 mg PO DAILY [facility] Last Admin: 08/23/21 07:37 Dose: 60 mg Documented by: PENNY Gabapentin (Gabapentin 600 Mg Tablet) 600 mg PO TID [facility] Last Admin: 08/23/21 15:12 Dose: 600 mg Documented by: PENNY Glucose (Glucose Gel 15 Gm Gel..Gram.) 15 gm PO Q15M PRN; Protocol PRN Reason: per Hypoglycemia Standing Ord. Glucose (Glucose Gel 15 Gm Gel..Gram.) 15 gm PO Q15M PRN; Protocol PRN Reason: per Hypoglycemia Standing Ord. Levofloxacin (Levaquin) 250 mg in 50 mls @ 50 mls/hr IV Q24H [facility] Last Admin: 08/23/21 15:18 Dose: 100 mls/hr Documented by: PENNY Insulin Glargine (Insulin Glargine,Hum.Rec.Anlog 100 Unit/Ml 10 Ml Vial) 50 unit SUBCUT BEDTIME [facility] Last Admin: 08/22/21 20:49 Dose: 50 unit Documented by: MILADYS Insulin Glargine (Insulin Glargine,Hum.Rec.Anlog 100 Unit/Ml 10 Ml Vial) 50 unit SUBCUT DAILY [facility] Last Admin: 08/23/21 09:17 Dose: 50 unit Documented by: PENNY Insulin Human Lispro (Insulin Lispro 100 Unit/Ml 3 Ml Vial) 0 unit SUBCUT QIDACHS [facility]; Protocol Last Admin: 08/23/21 12:14 Dose: 6 unit Documented by: PENNY Comments: Levothyroxine Sodium (Levothyroxine Sodium 200 Mcg Tablet) 200 mcg PO DAILY@0630 [facility] Last Admin: 08/23/21 06:08 Dose: 200 mcg Documented by: LOUANN Pharmacy Consult (Consult Rx Perform Med Rec) 1 each MISCELLANE ONCE PRN PRN Reason: Consult order Polyethylene Glycol (Polyethylene Glycol 3350 17 Gm Powd.Pack) 17 gm PO DAILY [facility] Last Admin: 08/23/21 07:37 Dose: 17 gm Documented by: PENNY Senna/Docusate Sodium (Sennosides/Docusate Sodium Tablet) 2 tab PO BID [facility] Last Admin: 08/23/21 07:37 Dose: 2 tab Documented by: PENNY Sodium Bicarbonate (Sodium Bicarbonate 650 Mg Tablet) 650 mg PO BID [facility] Last Admin: 08/23/21 07:37 Dose: 650 mg Documented by: PENNY Sodium Zirconium Cyclosilicate (Sodium Zirconium Cyclosilicate 10 Gm Powd.Pack) 10 gm PO DAILY [facility] Last Admin: 08/23/21 09:16 Dose: 10 gm Documented by: PENNY Trazodone HCl (Trazodone Hcl 25 Mg Halftab) 25 mg PO BEDTIME [facility] Last Admin: 08/22/21 20:48 Dose: 25 mg Documented by: MILADYS Labs CBC & Chem 7: 08/22/21 06:00 08/23/21 06:13 Labs: Laboratory Results - last 24 hr 08/22/21 08/22/21 08/23/21 15:54 20:28 06:13 Anion Gap 13 Estim Creat Clear Calc 84.9 Estimated GFR 43 POC Glucose 177 H 186 H Random Glucose 265 H Calcium 8.3 L 08/23/21 08/23/21 07:17 11:11 Anion Gap Estim Creat Clear Calc Estimated GFR POC Glucose 238 H 215 H Random Glucose Calcium Assessment and Plan (1) Acute respiratory distress syndrome (ARDS): Status: Acute (2) UTI (urinary tract infection): Status: Acute (3) RADHIKA (acute kidney injury): Status: Acute (4) DMII (diabetes mellitus, type 2): Status: Acute Plan 51yo F with DM2, HTN, HLD, nephrolithiasis, morbid obesity, opioid use disorder admitted to [facility] 08/13-08/17/21 for emphysematous pyelonephritis with severe R hydronephrosis for which she underwent R ureteral stenting and was treated for E.coli infection admitted to ICU 08/19/21 with ARDS from cocaine-induced hypersensitivity pneumoni tis, managed with HFNC stepped down to C 08/21/21 1.Cocaine-induced hypersensitivity pneumonitis - wean O2 as tolerated 2.E coli UTI - levofloxacin 09/06 3. RADHIKA/CKD2 - slowly returned to baseline - follow renals/divalents 4.Hyperkalemia - persistant -Lokelma 10mg daily -follow renals /divalents 5.Hypothyroidism - continue oral supplementation at outpatient dosing 6.DMII -acceptable control on current therapies. - basal/bolus insulin 7.HCV Ab positive - HIV negative, HBV immune from prior infection - LMWH # dispo will require 1 additional midnight to wean oxygen to outpatient levels Quality Stroke Does the patient have a stroke diagnosis?: No VTE Prior VTE?: No VTE Risk Level:: Medical - low VTE Device Contraindication: N/A - Device Ordered VTE Drug Contraindication: N/A - Med Ordered
[2021-08-23 15:58] LABS: Glucose, Whole Blood 143 mg/dL (60-115)
[2021-08-23 20:07] LABS: Glucose, Whole Blood 257 mg/dL (60-115)
[2021-08-23] MEDS: traZODone HCL 25 MG HALFTAB PO (21:02)
[2021-08-24] VITALS (8 sets, daily range): BP systolic 130–174; BP diastolic 67–80; PULSE 56–86; RESP 16–22; TEMP 36.1–36.4; O2SAT 92–98
[2021-08-24] MEDS: Enoxaparin Sodium 40 MG/0.4 ML SYRINGE SUBCUT (03:23)
[2021-08-24] MEDS: Levothyroxine Sodium 200 MCG TABLET PO (06:06)
[2021-08-24 06:33] LABS: MANUAL DIFF FLAG NO
[2021-08-24 06:52] LABS: Basophils Percent Auto 0.3 % (0-2); Eosinophils Absolute Auto 0.3 X10*3/uL (0.0-0.4); Eosinophils Percent Auto 3.2 % (0-4); Hematocrit 30.7 % (37.0-47.0); Hemoglobin 9.5 g/dl (12.0-16.0); Imm Gran Abs Auto 0.35 X10*3/uL (0.00-0.03); Imm Gran Pct Auto 3.6 % (0.0-0.4); Lymphocytes Absolute Auto 2.6 X10*3/uL (1.2-4.9); Lymphocytes Percent Auto 26.4 % (20-40); Mean Corpuscular HGB Conc 30.9 g/dl (31.0-35.0); Mean Corpuscular Hemoglobin 28.4 pg (27.0-33.0); Mean Corpuscular Volume 91.6 fL (80.0-98.0); Mean Platelet Volume 10.6 fL (9.4-12.3); Monocytes Absolute Auto 0.7 X10*3/uL (0.1-1.2); Monocytes Percent Auto 7.5 % (2-11); Neutrophils Absolute Auto 5.7 x10*3/uL (2.0-8.3); Platelet Count 316 X10*3/uL (160-400); Red Blood Count 3.35 X10*6/uL (4.20-5.50); Red Cell Distribution Width 15.8 % (11.0-16.0); White Blood Count 9.7 X10*3/uL (4.8-10.8)
[2021-08-24 07:06] LABS: Alanine Aminotransferase 36 U/L (0-31); Albumin Level 2.6 g/dL (3.5-5.0); Alkaline Phosphatase 548 U/L (39-117); Anion Gap 14 (12-20); Aspartate Amino Transferase 35 U/L (5-31); Bilirubin Total 0.7 mg/dL (0.0-1.0); Blood Urea Nitrogen 45 mg/dL (9-16); Calcium 8.4 mg/dL (8.4-10.2); Carbon Dioxide 23 mmol/L (22-29); Chloride 104 mmol/L (96-108); Creatinine Clr Calc Pharmacy 95.2; Estimated Glomerular Filt Rate 49; Glucose Fasting 181 mg/dL (60-99); Potassium 5.2 mmol/L (3.3-5.1); Sodium 136 mmol/L (135-145)
[2021-08-24 07:12] LABS: Glucose, Whole Blood 158 mg/dL (60-115)
[2021-08-24] MEDS: Buprenorphine/Naloxone 8/2 mg FILM 1 FILM SUBLINGUAL ×2 (08:20→14:28)
[2021-08-24] MEDS: Sodium Bicarbonate 650 MG TABLET PO (08:20)
[2021-08-24] MEDS: FLUoxetine HCl 20 MG CAPSULE 60 MG PO (08:20)
[2021-08-24] MEDS: Insulin Lispro 100 UNIT/ML 3 ML VIAL SUBCUT ×2 (08:20→11:31)
[2021-08-24] MEDS: Sennosides/Docusate Sodium TABLET 2 TAB PO (08:21)
[2021-08-24] MEDS: Sodium Zirconium Cyclosilicate 10 GM POWD.PACK PO (08:21)
[2021-08-24] MEDS: Gabapentin 600 MG TABLET PO ×2 (08:21→14:28)
[2021-08-24] MEDS: Insulin Glargine,Hum.rec.anlog 100 UNIT/ML 10 ML VIAL 50 UNIT SUBCUT (08:21)
[2021-08-24 11:03] LABS: Glucose, Whole Blood 220 mg/dL (60-115)
--- NOTE | 2021-08-24 11:30 | MHC.CM.PN ---
Patient appears to currently be requiring 4L O2. Home/on 2L less than 2L is the goal and CM will continue to follow.
--- NOTE | 2021-08-24 13:34 | MHC.CM.PN ---
Per MD, Patient will be medically cleared for dc to home today. Patient will return home today at 3PM, via [facility].
--- NOTE | 2021-08-24 13:48 | MHC.CM.PN ---
Transport was changed to an ambulance to accommodate Patient's weight.
--- NOTE | 2021-08-24 14:07 | PM.DS ---
DS: Providers Provider Date of Service: 08/24/21 Date of admission: 08/19/21 01:47 Date of discharge: 08/24/21 Primary care physician: SUGEY Esteban Consults: 08/22/21 10:32 Consult to Care Team Routine Comment: Reason for consultation: crack DS: Diagnosis Discharge Diagnosis (1) Acute respiratory distress syndrome (ARDS): Status: Acute (2) UTI (urinary tract infection): Status: Acute (3) RADHIKA (acute kidney injury): Status: Acute (4) DMII (diabetes mellitus, type 2): Status: Acute DS: Summary Hospital Course Hospital Course: Patient is a 51-year-old female? with a past medical history of DM2, HLD, HTN,? choledocholithiasis,? kidney stones and obesity who was found unresponsive and cyanotic by her late last evening.? EMS was called and the patient was given 8 mg of Narcan before she finally started to wake up.? Patient denied any illicit drug use at that time.? Patient was satting in the 60s-70s until she was given supplemental oxygen by EMS. In th ED,? patient required 45 L high-flow nasal cannula to reach a sat of 92%.?.?U tox is positive for opiates, positive for fentanyl, positive for benzodiazepines and positive for cocaine.? Patient's COVID test was negative. Hospital Course Admitted to ICU and treated with high-flow oxygen for treatment of cocaine induced hypersensitivity pneumonitis. Over the next 2 days she continued to improve and on 08/21 was transferred to the floor. She continued to improve was able to wean her oxygen down to 2 L (2 L at home) continuously. At this point in time she is stable for discharge home and has been advised strongly to avoid cocaine and quit cigarettes. She can follow-up with her PCP and complete a course of Levaquin for ongoing UTI Time Spent with Patient Time attestation: Total time spent providing and/or coordinating discharge services: Discharge coordination time: Greater than 30 minutes Quality: Stroke Does the patient have a stroke diagnosis?: No Physical Exam Vital Signs: Vital Signs: Last Vital Signs Temp 97.5 F 08/24/21 12:00 Pulse 63 08/24/21 12:00 Resp 18 08/24/21 12:00 BP 174/80 H 08/24/21 12:00 Pulse Ox 96 08/24/21 12:00 Oxygen Flow Rate 50 08/19/21 01:47 BMI result Body Mass Index 57.8 Const: Other: Awake alert oriented x3 no acute distress Resp: Other: Clear but diminished all cordon. No rales rhonchi or wheezes Cardio: Other: No S4; positive S1-S2; no S3 murmurs of gallops Neuro: Other: Cranial nerves 2-12 grossly intact as tested. Motor is 5 in 5 all extremities. Sensation intact. Cognition normal Extrem: Other: No edema bilaterally DS: Data Data Completed and Pending Completed studies during hospitalization [Text1]: Procedures Dilation of Right Ureter with Intraluminal Device, Via Natural or Artificial Opening Endoscopic (08/13/21) Fluoroscopy of Right Kidney, Ureter and Bladder (08/13/21) Labs on day of discharge: Laboratory Results - last 24 hr 08/23/21 08/23/21 08/24/21 15:54 19:53 06:21 WBC 9.7 RBC 3.35 L Hgb 9.5 L Hct 30.7 L MCV 91.6 MCH 28.4 MCHC 30.9 L RDW 15.8 Plt Count 316 MPV 10.6 Immature Gran % (Auto) 3.6 H Neut % (Auto) 59.0 Lymph % (Auto) 26.4 [place] % (Auto) 7.5 Eos % (Auto) 3.2 Baso % (Auto) 0.3 Lymph # (Auto) 2.6 [place] # (Auto) 0.7 Eos # (Auto) 0.3 Baso # (Auto) 0.0 Abs Immat Gran (auto) 0.35 H Absolute Neuts (auto) 5.7 Absolute Nucleated RBC 0.000 Nucleated RBC % (auto) 0.0 Sodium Potassium Chloride Carbon Dioxide Anion Gap BUN Creatinine Estim Creat Clear Calc Estimated GFR POC Glucose 143 H 257 H Fasting Glucose Calcium Total Bilirubin AST ALT Alkaline Phosphatase Total Protein Albumin 08/24/21 08/24/21 08/24/21 06:21 07:01 10:50 WBC RBC Hgb Hct MCV MCH MCHC RDW Plt Count MPV Immature Gran % (Auto) Neut % (Auto) Lymph % (Auto) [place] % (Auto) Eos % (Auto) Baso % (Auto) Lymph # (Auto) [place] # (Auto) Eos # (Auto) Baso # (Auto) Abs Immat Gran (auto) Absolute Neuts (auto) Absolute Nucleated RBC Nucleated RBC % (auto) Sodium 136 Potassium 5.2 H Chloride 104 Carbon Dioxide 23 Anion Gap 14 BUN 45 H Creatinine 1.16 Estim Creat Clear Calc 95.2 Estimated GFR 49 POC Glucose 158 H 220 H Fasting Glucose 181 H Calcium 8.4 Total Bilirubin 0.7 AST 35 H D ALT 36 H Alkaline Phosphatase 548 H Total Protein 7.0 Albumin 2.6 L Discharge Plan Discharge Patient Disposition: Home, Self-Care Discharge Diagnosis: Cocaine induced interstitial pneumonitis Referrals: Ray Cox FNP [Primary Care Provider] - 1 Week Discharge Medications: New sodium bicarbonate 650 mg Tablet 650 mg PO BID Qty: 60 0RF levofloxacin 500 mg tablet 500 mg PO DAILY 10 Days Qty: 10 0RF Continued atorvastatin 80 mg tablet 1 tab PO BEDTIME 0RF gabapentin 600 mg tablet 1 tab PO TID 0RF ibuprofen 800 mg tablet 1 tab PO TID PRN (Reason: pain) 0RF clonazepam 0.5 mg tablet 1 tab PO DAILY PRN (Reason: Anxiety) 0RF aspirin 81 mg tablet,delayed release (DR/EC) 1 tab PO DAILY 0RF trazodone 100 mg tablet 1 - 3 tab PO BEDTIME PRN (Reason: Insomnia) 0RF omeprazole 20 mg capsule,delayed release(DR/EC) 1 cap PO BID@0630,1630 0RF lisinopril-hydrochlorothiazide 20-25 mg tablet 1 tab PO DAILY 0RF levothyroxine 200 mcg tablet 1 tab PO DAILY@0630 0RF albuterol sulfate [ProAir HFA] 90 mcg/actuation HFA aerosol inhaler 2 puff PO Q4H PRN (Reason: wheezing) 0RF fluoxetine 20 mg capsule 3 cap PO DAILY 0RF insulin lispro [Humalog KwikPen Insulin] 100 unit/mL insulin pen 15 unit subcut DAILY@1200 0RF Rx Instructions: with lunch insulin lispro [Humalog KwikPen Insulin] 100 unit/mL insulin pen 20 unit subcut DAILY@0900,1700 0RF Rx Instructions: give with food Lantus Solostar U-100 Insulin 100 unit/mL (3 mL) insulin pen 54 unit subcut BID 0RF buprenorphine-naloxone [Suboxone] 8-2 mg film 1 strip sublingual TID 0RF loratadine 10 mg tablet 1 tab PO DAILY 0RF Discontinued cefuroxime axetil 500 mg tablet 500 mg PO BID 10 Days Qty: 20 0RF Discharge Orders: Discharge Order (Routine); Ordered 08/24/21 Ordered By: Cade Huerta Diet: advance to usual diet Activity on Discharge: As tolerated Stand Alone Forms: Patient Portal Discharge page Care Plan Goals: Complete course of Levaquin as ordered. Follow-up with PCP in 2 weeks Health Concerns: No cocaine Plan of Treatment: Will need sleep study as arranged by PCP as outpatient Assessment: S see discharge summary
[2021-08-24 14:38] LABS: Glucose, Whole Blood 156 mg/dL (60-115)
[2021-08-24 16:24] LABS: Glucose, Whole Blood 137 mg/dL (60-115)
[2021-08-24 19:03] LABS: HCV Log PCR <1.18 NOT DETECTED Log IU/mL (NOT DETECTED); HepC Viral Load <15 NOT DETECTED IU/mL (NOT DETECTED)
== END 2021-08-24 20:17 | disposition home or self-care (01) | DRG 816 ==
LOC: HO.ED 08-19 01:40 → HO.EDOVER 08-19 01:57 → HO.ICU 08-19 02:54 → HO.IMC 08-21 16:25
PROVIDERS: Family Medicine; Internal Medicine Cardiovascular Disease; Admitting Provider Physician Assistant; Emergency Provider Emergency Medicine; PCP Nurse Practitioner Family; Visit Provider Hospitalist
DX: T40.5X1A Poisoning by cocaine, accidental (unintentional), initial encounter (principal); J80 Acute respiratory distress syndrome; N17.9 Acute kidney failure, unspecified; N13.6 Pyonephrosis; Z68.43 Body mass index [BMI] 50.0-59.9, adult; J68.0 Bronchitis and pneumonitis due to chemicals, gases, fumes and vapors; E11.22 Type 2 diabetes mellitus with diabetic chronic kidney disease; B96.20 Unspecified Escherichia coli [E. coli] as the cause of diseases classified elsewhere; F10.10 Alcohol abuse, uncomplicated; F17.210 Nicotine dependence, cigarettes, uncomplicated; Z20.822 Contact with and (suspected) exposure to COVID-19; Z91.040 Latex allergy status; Z71.6 Tobacco abuse counseling; E66.01 Morbid (severe) obesity due to excess calories; E87.5 Hyperkalemia; N18.2 Chronic kidney disease, stage 2 (mild); F11.20 Opioid dependence, uncomplicated; B19.20 Unspecified viral hepatitis C without hepatic coma; Z88.0 Allergy status to penicillin; Z79.1 Long term (current) use of non-steroidal anti-inflammatories (NSAID); Z79.4 Long term (current) use of insulin; Z79.82 Long term (current) use of aspirin; Z79.890 Hormone replacement therapy; Z79.899 Other long term (current) drug therapy
CPT/HCPCS: 36415; 71045; 71250; 80048; 80053; 80076; 80307; 82533; 82803; 82947; 83605; 83615; 83735; 83880; 84100; 84484; 85025; 85379; 85610; 86704; 86706; 86803; 86880; 87040; 87340; 87389; 87522; 87635; 93005; 94660; 96361; 96365; 96375; 97116; 97162; 97530; 99285; 99291; C1758; J0696; J1650; J1956; J2543; J2930; J3370

== ENCOUNTER 2021-09-06 21:00 | Observation (INO) | payer MEDICAID, SELFPAY ==
--- NOTE | ~2021-09-06 | CT_ITS ---
EXAMINATION: CT ABDOMEN AND PELVIS WITHOUT CONTRAST CLINICAL INFORMATION: Abdominal pain. UTI. Recent stent placement. COMPARISON: 08/13/2021 TECHNIQUE: Multidetector volumetric imaging was performed from the superior aspect of the liver through the pubic symphysis. Sagittal and coronal reformatted images were obtained on the technologist's workstation. This CT examination was performed using dose optimization techniques as appropriate, variously including the following: *Automated exposure control *Adjustment of mA and/or kV according to patient size (this includes techniques or standardized protocols for targeted exams where dose is matched to indication/reason for exam; i.e. extremities or head) *Use of iterative reconstruction technique DLP: 1815 mGy-cm FINDINGS: LUNG BASES: Bibasilar subsegmental atelectasis. The visualized cardiac structures are unremarkable. LIVER, GALLBLADDER, AND BILIARY TREE: The liver is normal in size, shape, and attenuation. No focal hepatic lesion or biliary ductal dilatation is present. Stone noted in the gallbladder lumen. No wall thickening or pericholecystic fluid. PANCREAS: Unremarkable. SPLEEN: Unremarkable. ADRENAL GLANDS: Unremarkable. KIDNEYS AND URETERS: The kidneys are normal in size, shape, and attenuation. Right ureteral stent in place. Mild fullness of the right renal pelvis without hydronephrosis. There is an upper pole simple right renal cyst. Mild bilateral perinephric stranding. No calculi are seen. BLADDER: Calloway catheter in place. Partially distended without wall thickening. GASTROINTESTINAL TRACT: The stomach is unremarkable. Normal caliber small bowel. No obstruction. No colonic wall thickening or acute inflammation. No free air or free fluid. ABDOMINAL WALL: Rectus diastases with eventration of the abdominal wall. Mild anasarca. LYMPH NODES: Normal. VASCULAR: Normal caliber aorta. Scattered atherosclerotic mild calcifications. PELVIC VISCERA: Anteverted uterus. Calcifications associated with the left ovary noted. OSSEOUS STRUCTURES: No acute or suspicious osseous abnormality. Degenerative changes are present throughout the spine with multilevel vacuum disc phenomenon. Mild degenerative change of both hips. CT/CT abdomen pelvis wo IV con IMPRESSION: Right ureteral stent in place. No hydronephrosis. Perinephric stranding is present, though this is seen symmetrically. This is fairly similar to the prior study. There is no longer gas within the collecting system. No fluid collections. Fleischner guidelines were followed.
--- NOTE | ~2021-09-06 | US_ITS ---
EXAMINATION: US VENOUS ULTRASOUND WITH DOPPLER LOWER EXTREMITY, BILATERAL CLINICAL INFORMATION: Swelling and pain COMPARISON: None TECHNIQUE: Ultrasound of the deep veins is performed from the hip to the calf with compression sonography and color and pulse Doppler assessment. Spectral analysis with color-flow imaging is performed. FINDINGS: RIGHT: There is normal venous compression and respiratory variation and augmented flow. The visualized common femoral vein, superficial femoral vein, profunda femoral vein, popliteal vein, and the trifurcation region shows no evidence of deep venous thrombosis. There is no significant popliteal fossa cyst. LEFT: There is normal venous compression and respiratory variation and augmented flow. The visualized common femoral vein, superficial femoral vein, profunda femoral vein, popliteal vein, and the trifurcation region shows no evidence of deep venous thrombosis. There is no significant popliteal fossa cyst. If the patient's symptoms persist, followup ultrasound in 5 days 7 days might be of value to exclude proximal propagation from a non-visualized calf vein. US/US venous duplex LE BI IMPRESSION: No DVT demonstrated in the bilateral lower extremities.
--- NOTE | ~2021-09-06 | XR_ITS ---
EXAMINATION: XR CHEST CLINICAL INFORMATION: Cough, shortness of breath COMPARISON: 08/21/2021 TECHNIQUE: Frontal view of the chest was obtained. FINDINGS: Lung volumes are symmetric. No focal consolidation is seen. Prominence of the interstitium is again noted. No evidence of pneumothorax or significant pleural effusion. Prominent cardiac silhouette is similar to prior. No acute osseous findings are seen. XR/XR chest 1V IMPRESSION: Interstitial prominence, similar to prior and which may reflect a degree of congestion. No new consolidation.
--- NOTE | ~2021-09-06 | CT_ITS ---
EXAMINATION: CT ANGIOGRAM OF THE CHEST WITH AND WITHOUT CONTRAST (CT PULMONARY ANGIOGRAM FOR PE) CLINICAL INFORMATION: Reason for Exam SOB, hypoxia, elevated d-dimer COMPARISON: 08/19/2021 TECHNIQUE: Prior to contrast administration, noncontrast localization images were obtained. Subsequently, multidetector volumetric imaging was performed from the thoracic inlet to below the diaphragms following the administration of 100 mL Omnipaque 350 intravenous contrast. No contrast reaction reported Sagittal, coronal, and MIP oblique sagittal reformatted images were obtained on the CT workstation, uploaded to PACS, and reviewed. This CT examination was performed using dose optimization techniques as appropriate, variously including the following: *Automated exposure control *Adjustment of mA and/or kV according to patient size (this includes techniques or standardized protocols for targeted exams where dose is matched to indication/reason for exam; i.e. extremities or head) *Use of iterative reconstruction technique Total exam dose-length product 608 mGy-cm FINDINGS: QUALITY OF STUDY/CONTRAST BOLUS: Suboptimal. PULMONARY ARTERIES: Significantly limited evaluation due to patient body habitus and bolus timing. No central pulmonary embolus is seen, though evaluation of the segmental and subsegmental vessels is significantly limited. THORACIC AORTA: No aneurysm or dissection. LUNG: There is nearly diffuse groundglass opacification of the bilateral lungs, with relative sparing of the lung bases. Nodular foci along the right minor fissure may represent lymph nodes. PLEURA: No pleural effusion or pneumothorax. MEDIASTINUM: Suboptimal assessment of the thyroid gland due to artifact. Mildly prominent mediastinal lymph nodes in the prevascular and paratracheal regions. There is cardiomegaly without pericardial effusion. CHEST WALL/AXILLA: No axillary or internal mammary lymphadenopathy. OSSEOUS STRUCTURES: Multilevel degenerative endplate changes are present in the spine. UPPER ABDOMEN: Grossly unremarkable. No reflux of contrast into the hepatic veins to suggest elevated right heart pressures. CT/CT angio chest PE protocol IMPRESSION: 1. Limited evaluation due to body habitus and bolus timing. No central pulmonary embolus is seen, though evaluation of the remaining vessels is incomplete, and therefore segmental or subsegmental emboli cannot reliably excluded. 2. Extensive groundglass opacities throughout the lungs, which could be secondary to edema versus infection in the proper clinical setting. 3. Cardiomegaly. VTE: negative
[2021-09-06 22:33] VITALS: BP 128/89; PULSE 96; RESP 18; TEMP 36.6; O2SAT 98; BMI 53.4
[2021-09-07] VITALS (9 sets, daily range): BP systolic 119–154; BP diastolic 73–84; PULSE 73–99; RESP 14–24; TEMP 36.7; O2SAT 85–100
--- NOTE | 2021-09-07 | ECG_ITS ---
Test Reason : sob Blood Pressure : / mmHG Vent. Rate : 073 BPM Atrial Rate : 073 BPM P-R Int : 158 ms QRS Dur : 088 ms QT Int : 410 ms P-R-T Axes : 040 005 034 degrees QTc Int : 451 ms Normal sinus rhythm Normal ECG When compared with ECG of 18-AUG-2021 20:22, Nonspecific T wave abnormality, improved in Anterior leads Referred By: Miguel Dolan Electronically Signed By:CHU DIXON MD
[2021-09-07 00:23] LABS: Hematocrit 31.7 % (37.0-47.0); Hemoglobin 9.3 g/dl (12.0-16.0); Mean Corpuscular HGB Conc 29.3 g/dl (31.0-35.0); Mean Corpuscular Hemoglobin 27.9 pg (27.0-33.0); Mean Corpuscular Volume 95.2 fL (80.0-98.0); Mean Platelet Volume 10.1 fL (9.4-12.3); Platelet Count 229 X10*3/uL (160-400); Red Blood Count 3.33 X10*6/uL (4.20-5.50); Red Cell Distribution Width 15.8 % (11.0-16.0); White Blood Count 6.1 X10*3/uL (4.8-10.8)
--- NOTE | 2021-09-07 00:43 | ED.GENADULT ---
HPI - General Adult General Chief complaint: Abdominal Pain Stated complaint: pain swelling lower extremity Time Seen by Provider: 09/07/21 00:09 Source: patient Mode of arrival: EMS History of Present Illness HPI narrative: 51-year-old female with multiple medical comorbidities who presents with complaints of shortness of breath, superficial abdominal pain to the left pannus as well as increasing left lower extremity swelling with pain, chills but denies nausea, vomiting, diarrhea. Related Data Home Medications Medication Instructions Recorded Confirmed albuterol sulfate 90 mcg/actuation 2 puff PO Q4H PRN 08/13/21 08/18/21 aerosol inhaler (ProAir HFA) aspirin 81 mg tablet,delayed 1 tab PO DAILY 08/13/21 08/18/21 release atorvastatin 80 mg tablet 1 tab PO BEDTIME 08/13/21 08/18/21 buprenorphine 8 mg-naloxone 2 mg 1 strip SUBLINGUAL TID 08/13/21 08/18/21 sublingual film (Suboxone) clonazepam 0.5 mg tablet 1 tab PO DAILY PRN 08/13/21 08/18/21 fluoxetine 20 mg capsule 3 cap PO DAILY 08/13/21 08/18/21 gabapentin 600 mg tablet 1 tab PO TID 08/13/21 08/18/21 ibuprofen 800 mg tablet 1 tab PO TID PRN 08/13/21 08/18/21 insulin glargine 100 unit/mL (3 54 unit SUBCUT BID 08/13/21 08/18/21 mL) subcutaneous pen (Lantus Solostar U-100 Insulin) insulin lispro 100 unit/mL 15 unit SUBCUT DAILY@1200 08/13/21 08/18/21 subcutaneous pen (Humalog KwikPen (U-100) Insulin) insulin lispro 100 unit/mL 20 unit SUBCUT DAILY@0900,1700 08/13/21 08/18/21 subcutaneous pen (Humalog KwikPen (U-100) Insulin) levothyroxine 200 mcg tablet 1 tab PO DAILY@0630 08/13/21 08/18/21 lisinopril 20 1 tab PO DAILY 08/13/21 08/18/21 mg-hydrochlorothiazide 25 mg tablet loratadine 10 mg tablet 1 tab PO DAILY 08/13/21 08/18/21 omeprazole 20 mg capsule,delayed 1 cap PO BID@0630,1630 08/13/21 08/18/21 release trazodone 100 mg tablet 1 - 3 tab PO BEDTIME PRN 08/13/21 08/18/21 Previous Rx's Medication Instructions Recorded levofloxacin 500 mg tablet 500 mg PO DAILY 10 Days #10 tab 08/24/21 sodium bicarbonate 650 mg tablet 650 mg PO BID #60 tab 08/24/21 Allergies Allergy/AdvReac Type Severity Reaction Status Date / Time canagliflozin [From Invokana] Allergy Rash Verified 11/26/20 18:22 latex Allergy Itching Verified 11/26/20 18:22 Penicillins Allergy Rash Verified 11/26/20 18:22 sitagliptin [From Januvia] Allergy Rash Verified 11/26/20 18:22 Review of Systems Review of Systems: Pertinent positives and negatives as stated in HPI and 10 point review of systems is otherwise negative. [facility] Past Medical History Source: nursing notes reviewed Medical History Choledocholithiasis High cholesterol HTN (hypertension) Hydroureteronephrosis Kidney stones Surgical History No pertinent past surgical history Family History Family History Mother Coronary artery disease Diabetes Social History Social History Household Members: Spouse Housing: Apartment Do you presently have visiting nurse or other home services: No Alcohol intake: former Patient Tobacco Use Status: Current everyday Tobacco user Tobacco use type: Cigarette Cigarettes Per Day: 5 Substance Use Type: Crack/Cocaine Advance Directives: No Patient : No service: No Current occupational status: unemployed Physical Exam ED Vital Signs: Vital Signs - 24 hr 09/06/21 22:33 09/07/21 00:12 09/07/21 02:15 Temperature 97.8 F Pulse Rate 96 99 Respiratory Rate 18 24 H Blood Pressure 128/89 143/73 H Pulse Oximetry 98 93 85 L 09/07/21 02:16 09/07/21 04:04 09/07/21 06:10 Temperature Pulse Rate 74 75 73 Respiratory Rate 14 14 14 Blood Pressure 122/77 119/73 120/73 Pulse Oximetry 97 96 95 BMI result Body Mass Index 53.4 VITAL SIGNS: Reviewed. GENERAL: Chronically ill, elevated BMI in no acute distress. HEAD: Normocephalic/atraumatic EYES: PERRLA, EOMI EARS: Ext canals without abnormality OROPHARYNX: no oral lesions noted, posterior pharynx clear NECK: Supple, no adenopathy LUNGS: Decreased breath sounds bibasilar without wheeze/rhonchi/rales. SpO2<98> 1 L nasal cannula CARDIOVASCULAR: Regular rate and rhythm without noted murmurs, no JVD but bilateral lower extremity edema, L>R ABDOMEN: Soft, non-tender, non-distended with bowel sounds, area of erythema/induration at the left pannus without fluctuant mass appreciated MUSCULOSKELETAL: No tenderness, deformities, or effusions noted on gross inspection. EXTREMITIES: No cyanosis, clubbing or edema;RLE: Mild swelling, nonpitting, skin thickening and darkening consistent with underlying diagnosis of diabetes as well as suspected chronic venous stasis;LLE: Warmth, 1 to 2+ pitting edema to the knee, skin darkening and shininess. SKIN: Inspection of the skin reveals no rashes NEUROLOGIC: Alert and oriented x 4. Strength and sensation to light touch were grossly intact x 4. Course Course Course Narrative: 51-year-old female with history and clinical presentation suggestive of abdominal wall cellulitis and concerns of the left lower extremity of cellulitis but possible underlying osteo or DVT. Review all investigations most consistent with likely pyelonephritis and with the noted hypoxia raises concerns for COVID or influenza etiology. However, on review of further investigations findings significant for pulmonary interstitial edema consistent with CHF as patient has negative viral evaluations. Patient received Rocephin for UTI and otherwise received Lasix for CHF and had Calloway catheter placed. This case was discussed with inpatient hospitalist who accepts admission. Medical Decision Making Lab Data Result diagrams: 09/07/21 00:19 09/07/21 00:19 Labs: Lab Results 09/07/21 09/07/21 09/07/21 Range/Units 00:19 00:19 00:19 WBC 6.1 (4.8-10.8) X10*3/uL RBC 3.33 L (4.20-5.50) X10*6/uL Hgb 9.3 L (12.0-16.0) g/dl Hct 31.7 L (37.0-47.0) % MCV 95.2 (80.0-98.0) fL MCH 27.9 (27.0-33.0) pg MCHC 29.3 L (31.0-35.0) g/dl RDW 15.8 (11.0-16.0) % Plt Count 229 D (160-400) X10*3/uL MPV 10.1 (9.4-12.3) fL Absolute Nucleated RBC 0.000 (0.0-0.012) X10*3/uL Nucleated RBC % (auto) 0.0 (0.0-0.2) /100WBC D-Dimer High Sensitivty NG/ML Sodium 139 (135-145) mmol/L Potassium 5.1 (3.3-5.1) mmol/L Chloride 109 H (96-108) mmol/L Carbon Dioxide 22 (22-29) mmol/L Anion Gap 13 (12-20) BUN 24 H (9-16) mg/dL Creatinine 1.32 (0.5-1.4) mg/dL Estim Creat Clear Calc 71.8 Estimated GFR 43 Random Glucose 251 H (60-115) mg/dL Lactic Acid (0.5-2.0) mmol/L Calcium 8.5 (8.4-10.2) mg/dL Total Bilirubin 0.6 (0.0-1.0) mg/dL AST 19 D (5-31) U/L ALT 17 (0-31) U/L Alkaline Phosphatase 281 H D (39-117) U/L B-Natriuretic Peptide 22 (<100) pg/mL Total Protein 7.3 (6.5-8.0) g/dL Albumin 3.0 L (3.5-5.0) g/dL Lipase 51 (8-78) U/L Urine Color Urine Appearance Urine pH (5.0-8.0) Ur Specific Higginson (1.005-1.025) Urine Protein (NEG-TRACE) MG/DL Urine Glucose (UA) (NEG) MG/DL Urine Ketones (NEG) MG/DL Urine Blood (NEG) Urine Nitrite (NEG) Ur Leukocyte Esterase (NEG) Urine RBC (0) /HPF Urine WBC (0-4) /HPF Ur Squamous Epith Cells /LPF Urine Bacteria /LPF Urine Yeast /HPF Acetone, Qual Negative (Negative) COVID-19 ([facility]) (Negative) COVID-19 Clin Com Influenza Type A ([facility]) (Negative) Influenza Type B ([facility]) (Negative) Influenza A & B Note 09/07/21 09/07/21 09/07/21 Range/Units 01:14 01:21 02:55 WBC (4.8-10.8) X10*3/uL RBC (4.20-5.50) X10*6/uL Hgb (12.0-16.0) g/dl Hct (37.0-47.0) % MCV (80.0-98.0) fL MCH (27.0-33.0) pg MCHC (31.0-35.0) g/dl RDW (11.0-16.0) % Plt Count (160-400) X10*3/uL MPV (9.4-12.3) fL Absolute Nucleated RBC (0.0-0.012) X10*3/uL Nucleated RBC % (auto) (0.0-0.2) /100WBC D-Dimer High Sensitivty 515 NG/ML Sodium (135-145) mmol/L Potassium (3.3-5.1) mmol/L Chloride (96-108) mmol/L Carbon Dioxide (22-29) mmol/L Anion Gap (12-20) BUN (9-16) mg/dL Creatinine (0.5-1.4) mg/dL Estim Creat Clear Calc Estimated GFR Random Glucose (60-115) mg/dL Lactic Acid 0.8 (0.5-2.0) mmol/L Calcium (8.4-10.2) mg/dL Total Bilirubin (0.0-1.0) mg/dL AST (5-31) U/L ALT (0-31) U/L Alkaline Phosphatase (39-117) U/L B-Natriuretic Peptide (<100) pg/mL Total Protein (6.5-8.0) g/dL Albumin (3.5-5.0) g/dL Lipase (8-78) U/L Urine Color YELLOW Urine Appearance HAZY Urine pH 6.0 (5.0-8.0) Ur Specific Higginson 1.020 (1.005-1.025) Urine Protein 2+ H (NEG-TRACE) MG/DL Urine Glucose (UA) NEG (NEG) MG/DL Urine Ketones NEG (NEG) MG/DL Urine Blood 3+ H (NEG) Urine Nitrite NEG (NEG) Ur Leukocyte Esterase 2+ H (NEG) Urine RBC 15-29 H (0) /HPF Urine WBC 15-29 H (0-4) /HPF Ur Squamous Epith Cells 1+ /LPF Urine Bacteria 2+ /LPF Urine Yeast 2+ /HPF Acetone, Qual (Negative) COVID-19 ([facility]) (Negative) COVID-19 Clin Com Influenza Type A ([facility]) (Negative) Influenza Type B ([facility]) (Negative) Influenza A & B Note 09/07/21 09/07/21 Range/Units 06:38 06:38 WBC (4.8-10.8) X10*3/uL RBC (4.20-5.50) X10*6/uL Hgb (12.0-16.0) g/dl Hct (37.0-47.0) % MCV (80.0-98.0) fL MCH (27.0-33.0) pg MCHC (31.0-35.0) g/dl RDW (11.0-16.0) % Plt Count (160-400) X10*3/uL MPV (9.4-12.3) fL Absolute Nucleated RBC (0.0-0.012) X10*3/uL Nucleated RBC % (auto) (0.0-0.2) /100WBC D-Dimer High Sensitivty NG/ML Sodium (135-145) mmol/L Potassium (3.3-5.1) mmol/L Chloride (96-108) mmol/L Carbon Dioxide (22-29) mmol/L Anion Gap (12-20) BUN (9-16) mg/dL Creatinine (0.5-1.4) mg/dL Estim Creat Clear Calc Estimated GFR Random Glucose (60-115) mg/dL Lactic Acid (0.5-2.0) mmol/L Calcium (8.4-10.2) mg/dL Total Bilirubin (0.0-1.0) mg/dL AST (5-31) U/L ALT (0-31) U/L Alkaline Phosphatase (39-117) U/L B-Natriuretic Peptide (<100) pg/mL Total Protein (6.5-8.0) g/dL Albumin (3.5-5.0) g/dL Lipase (8-78) U/L Urine Color Urine Appearance Urine pH (5.0-8.0) Ur Specific Higginson (1.005-1.025) Urine Protein (NEG-TRACE) MG/DL Urine Glucose (UA) (NEG) MG/DL Urine Ketones (NEG) MG/DL Urine Blood (NEG) Urine Nitrite (NEG) Ur Leukocyte Esterase (NEG) Urine RBC (0) /HPF Urine WBC (0-4) /HPF Ur Squamous Epith Cells /LPF Urine Bacteria /LPF Urine Yeast /HPF Acetone, Qual (Negative) COVID-19 ([facility]) Negative (Negative) COVID-19 Clin Com See Note Influenza Type A ([facility]) Negative (Negative) Influenza Type B ([facility]) Negative (Negative) Influenza A & B Note See Note Discharge Plan Discharge Clinical Impression: CHF exacerbation, UTI (urinary tract infection), Cellulitis, Hypoxic Patient Disposition: Admitted As Inpatient Prescriptions: No Action sodium bicarbonate 650 mg Tablet 650 mg PO BID Qty: 60 0RF levofloxacin 500 mg tablet 500 mg PO DAILY 10 Days Qty: 10 0RF atorvastatin 80 mg tablet 1 tab PO BEDTIME 0RF gabapentin 600 mg tablet 1 tab PO TID 0RF ibuprofen 800 mg tablet 1 tab PO TID PRN (Reason: pain) 0RF clonazepam 0.5 mg tablet 1 tab PO DAILY PRN (Reason: Anxiety) 0RF aspirin 81 mg tablet,delayed release (DR/EC) 1 tab PO DAILY 0RF trazodone 100 mg tablet 1 - 3 tab PO BEDTIME PRN (Reason: Insomnia) 0RF omeprazole 20 mg capsule,delayed release(DR/EC) 1 cap PO BID@0630,1630 0RF lisinopril-hydrochlorothiazide 20-25 mg tablet 1 tab PO DAILY 0RF levothyroxine 200 mcg tablet 1 tab PO DAILY@0630 0RF albuterol sulfate [ProAir HFA] 90 mcg/actuation HFA aerosol inhaler 2 puff PO Q4H PRN (Reason: wheezing) 0RF fluoxetine 20 mg capsule 3 cap PO DAILY 0RF insulin lispro [Humalog KwikPen Insulin] 100 unit/mL insulin pen 15 unit subcut DAILY@1200 0RF Rx Instructions: with lunch insulin lispro [Humalog KwikPen Insulin] 100 unit/mL insulin pen 20 unit subcut DAILY@0900,1700 0RF Rx Instructions: give with food Lantus Solostar U-100 Insulin 100 unit/mL (3 mL) insulin pen 54 unit subcut BID 0RF buprenorphine-naloxone [Suboxone] 8-2 mg film 1 strip sublingual TID 0RF loratadine 10 mg tablet 1 tab PO DAILY 0RF
[2021-09-07 00:55] LABS: Acetone, serum QL Negative (Negative)
[2021-09-07 00:57] LABS: Alanine Aminotransferase 17 U/L (0-31); Alkaline Phosphatase 281 U/L (39-117); Anion Gap 13 (12-20); Aspartate Amino Transferase 19 U/L (5-31); Bilirubin Total 0.6 mg/dL (0.0-1.0); Blood Urea Nitrogen 24 mg/dL (9-16); Calcium 8.5 mg/dL (8.4-10.2); Carbon Dioxide 22 mmol/L (22-29); Chloride 109 mmol/L (96-108); Creatinine Clr Calc Pharmacy 71.8; Estimated Glomerular Filt Rate 43; Glucose Random 251 mg/dL (60-115); Lipase 51 U/L (8-78); Potassium 5.1 mmol/L (3.3-5.1); Sodium 139 mmol/L (135-145); Total Protein 7.3 g/dL (6.5-8.0)
[2021-09-07 01:40] LABS: D Dimer High Sensitivity 515 NG/ML
[2021-09-07 01:44] LABS: Lactic Acid 0.8 mmol/L (0.5-2.0)
[2021-09-07 02:52] LABS: B Type Natriuretic Peptide 22 pg/mL (<100)
[2021-09-07 03:03] LABS: Appearance Urine HAZY; Color Urine YELLOW; Glucose Urine UA NEG (NEG); Leukocyte Esterase Urine 2+ (NEG); Nitrite Urine NEG (NEG); UACC Culture Trigger YES; Urine Blood 3+ (NEG); Urine Ketones NEG (NEG); Urine Protein 2+ MG/DL (NEG-TRACE)
[2021-09-07 03:12] LABS: Bacteria Urine 2+ /LPF; Squamous Epithelial Cell Urine 1+ /LPF; UACC CULT YES
[2021-09-07] MEDS: cefTRIAXone sodium 1 GM in 0.9 % Sodium Chloride 50 ML IV (04:44)
[2021-09-07] MEDS: iohexoL 350 MG/ML 100 ML INFUS..BTL IV (05:59)
[2021-09-07 06:58] LABS: COVID-19 Test Negative (Negative); Influenza A Negative (Negative); Influenza B2 Negative (Negative)
--- NOTE | 2021-09-07 07:41 | PC.NURSE ---
16f parsons catheter placed per provider order at this time. Pt aware of plan of care and admission.
[2021-09-07] MEDS: Furosemide 100 MG/10 ML VIAL 60 MG IVPUSH (07:47)
--- NOTE | 2021-09-07 09:09 | PC.NURSE ---
EKG completed by tech, and troponin sent to the lab. Pt resting in stretcher offering no complaints at this time.
[2021-09-07 09:16] LABS: Amphetamine Screen Urine Not Detected (Not Detect); Barbiturates, Urine Not Detected (Not Detect); Benzodiazepines Screen Urine Not Detected (Not Detect); Cannabinoid Screen Urine Not Detected (Not Detect); Cocaine Screen Urine Not Detected (Not Detect); Fentanyl, urine POSITIVE (Not Detect); Opiate Screen Urine Not Detected (Not Detect); Phencyclidine Screen Urine Not Detected (Not Detect)
--- NOTE | 2021-09-07 09:32 | PHA.MEDREC ---
Pharmacy Consult ? Medication Reconciliation Pharmacy has completed the medication reconciliation. No remarkable issues. Letitia Hartmann, [facility]
[2021-09-07 09:37] LABS: Troponin-I High Sensitivity < 3.5 ng/L (<3.5-17.0)
--- NOTE | 2021-09-07 10:01 | P.HPHOSP_ITS ---
History of Present Illness Date of Service: 09/07/21 Chief Complaint: Shortness of breath, leg swelling and pain This is a 51 year old female with a PMH of insulin dependent DM, polysusbtance abuse, OUD on suboxone, hypothyroidism, chronic respiratory failure with hypoxia, morbid obesity, mood disorder who presents to the hospital with multiple complaints for several days duration. She reports that she has been feeling increasingly short of breath, both with exertion and at rest. She reprots a non-productive cough, but this unchanged. She denies any anginal or pleuritic chest pain. She denies any fevers but does endorse chills. Secondly, she reports abdominal pain without nausea and vomiting. She feels that there is an orange sized ball on her abdominal wall which is bothering her. Lastly, she reports bilateral lower extremity swelling and pain (diffuse), L > R. She reports that she ambulates with a walker and denies any fall Upon arrival to the ED, she was noted to be hypoxic down to 85% on RA (she is on 2L NC at home from the last admission). This quickly resolved after she was placed on 2L NC. She underwent further evaluation with a CXR/CTA of the chest which was negative for PE, but did show diffuse ground glass opacities which could present pulmonary edema or infection. BNp is negative Her UA showed pyuria/hematuria/bacteruia with positive Leuk. Esterase and negative nitrites. She was given IV lasix and IV ropcehin. Admission was requested for CHF, UTI, abdominal wall celluitils. Of note, this is the patients 3rd admission to [facility] [place] in the last month. She was admitted from 08/13/21 to 08/17/21 for emphysematous pyelonephritis with severe R hydronephrosis for which she underwent R ureteral stenting and was treated for E.coli infection. 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 Review of Systems Review of Systems: negative except HPI [facility] Medical History Choledocholithiasis High cholesterol HTN (hypertension) Hydroureteronephrosis Kidney stones Family History Mother Coronary artery disease Diabetes Surgical History No pertinent past surgical history Social History Household Members: Spouse Housing: Apartment Do you presently have visiting nurse or other home services: No Alcohol intake: former Patient Tobacco Use Status: Current everyday Tobacco user Tobacco use type: Cigarette Cigarettes Per Day: 5 Substance Use Type: Crack/Cocaine Advance Directives: No Patient : No service: No Current occupational status: unemployed Meds Allergies Allergy/AdvReac Type Severity Reaction Status Date / Time canagliflozin [From Invokana] Allergy Rash Verified 11/26/20 18:22 latex Allergy Itching Verified 11/26/20 18:22 Penicillins Allergy Rash Verified 11/26/20 18:22 sitagliptin [From Januvia] Allergy Rash Verified 11/26/20 18:22 Active Medications: Current Medications Pharmacy Consult (Consult Rx Perform Med Rec) 1 each MISCELLANE ONCE PRN PRN Reason: Consult order Home Medications Medication Instructions Recorded Confirmed Last Taken Type albuterol sulfate 90 mcg/actuation 2 puff PO Q4H PRN 08/13/21 09/07/21 08/12/21 History aerosol inhaler (ProAir HFA) aspirin 81 mg tablet,delayed 1 tab PO DAILY 08/13/21 09/07/21 09/06/21 History release atorvastatin 80 mg tablet 1 tab PO BEDTIME 08/13/21 09/07/21 09/06/21 History buprenorphine 8 mg-naloxone 2 mg 1 strip SUBLINGUAL TID 08/13/21 09/07/2110/23 History sublingual film (Suboxone) clonazepam 0.5 mg tablet 1 tab PO DAILY PRN 08/13/21 09/07/21 09/06/21 History fluoxetine 20 mg capsule 3 cap PO DAILY 08/13/21 09/07/21 09/06/21 History gabapentin 600 mg tablet 1 tab PO TID 08/13/21 09/07/21 09/06/21 History ibuprofen 800 mg tablet 1 tab PO TID PRN 08/13/21 09/07/21 09/06/21 History insulin glargine 100 unit/mL (3 54 unit SUBCUT BID 08/13/21 09/07/21 09/06/21 History mL) subcutaneous pen (Lantus Solostar U-100 Insulin) insulin lispro 100 unit/mL 15 unit SUBCUT DAILY@1200 08/13/21 09/07/21 09/06/21 History subcutaneous pen (Humalog KwikPen (U-100) Insulin) insulin lispro 100 unit/mL 22 unit SUBCUT DAILY@0900,1700 08/13/21 09/07/21 09/06/21 History subcutaneous pen (Humalog KwikPen (U-100) Insulin) levothyroxine 200 mcg tablet 1 tab PO DAILY@0630 08/13/21 09/07/21 09/06/21 History lisinopril 20 1 tab PO DAILY 08/13/21 09/07/21 09/06/21 History mg-hydrochlorothiazide 25 mg tablet loratadine 10 mg tablet 1 tab PO DAILY 08/13/21 09/07/21 09/06/21 History omeprazole 20 mg capsule,delayed 1 cap PO BID@0630,1630 08/13/21 09/07/21 09/06/21 History release trazodone 100 mg tablet 1 - 3 tab PO BEDTIME PRN 08/13/21 09/07/21 09/06/21 History Physical Exam Vital Signs and Narrative: Vital Signs: Last Vital Signs Temp 97.8 F 09/06/21 22:33 Pulse 76 09/07/21 08:52 Resp 14 09/07/21 08:52 BP 136/82 09/07/21 08:52 Pulse Ox 98 09/07/21 08:52 BMI result Body Mass Index 53.4 Const: Other: Constitutional - Awake and Alert, No apparent distress, morbidly obese Eyes - PERRLA, EOMI Cardiovascular - S1S2, RRR, 2+ LE edema, JVD difficult to ascertain due to body habitus Respiratory - Diminished lungs sounds but no wheezing/rales/rhonichi appreciated; no tachypnea appreciated Gastrointestinal - NT / ND; +BS; No rebound or guarding; no palpable masses appreciated on the abodminal wall; no significant erythema - No CVA tenderness Extremities - no calf tenderness bilaterally, b/l LE swelling; some chronic appearing changes in lower leg -- not warm nor tender Musculoskeletal - Normal inspection, normal ROM Skin - Warm/Dry Neurological - Alert & oriented x3, No focal deficit Psychological - Appropriate affect Results Labs CBC and Chem 7: 09/07/21 00:19 09/07/21 00:19 Labs: Laboratory Results - last 24 hr 09/07/21 09/07/21 09/07/21 00:19 00:19 00:19 MCV 95.2 MCH 27.9 MCHC 29.3 L RDW 15.8 Plt Count 229 D MPV 10.1 Absolute Nucleated RBC 0.000 Nucleated RBC % (auto) 0.0 D-Dimer High Sensitivty Anion Gap 13 Estim Creat Clear Calc 71.8 Estimated GFR 43 Random Glucose 251 H Lactic Acid Calcium 8.5 Total Bilirubin 0.6 AST 19 D ALT 17 Alkaline Phosphatase 281 H D Troponin I High Sens B-Natriuretic Peptide 22 Total Protein 7.3 Albumin 3.0 L Lipase 51 Urine Color Urine Appearance Urine pH Ur Specific Ararat Urine Protein Urine Glucose (UA) Urine Ketones Urine Blood Urine Nitrite Ur Leukocyte Esterase Urine RBC Urine WBC Ur Squamous Epith Cells Urine Bacteria Urine Yeast Urine Opiates Screen Urine Fentanyl Screen Ur Barbiturates Screen Ur Phencyclidine Scrn Ur Amphetamines Screen U Benzodiazepines Scrn Urine Cocaine Screen U Marijuana (THC) Screen Acetone, Qual Negative COVID-19 ([facility]) COVID-19 Clin Com Influenza Type A ([facility]) Influenza Type B ([facility]) Influenza A & B Note 09/07/21 09/07/21 09/07/21 01:14 01:21 02:55 MCV MCH MCHC RDW Plt Count MPV Absolute Nucleated RBC Nucleated RBC % (auto) D-Dimer High Sensitivty 515 Anion Gap Estim Creat Clear Calc Estimated GFR Random Glucose Lactic Acid 0.8 Calcium Total Bilirubin AST ALT Alkaline Phosphatase Troponin I High Sens B-Natriuretic Peptide Total Protein Albumin Lipase Urine Color YELLOW Urine Appearance HAZY Urine pH 6.0 Ur Specific [place]arat 1.020 Urine Protein 2+ H Urine Glucose (UA) NEG Urine Ketones NEG Urine Blood 3+ H Urine Nitrite NEG Ur Leukocyte Esterase 2+ H Urine RBC 15-29 H Urine WBC 15-29 H Ur Squamous Epith Cells 1+ Urine Bacteria 2+ Urine Yeast 2+ Urine Opiates Screen Urine Fentanyl Screen Ur Barbiturates Screen Ur Phencyclidine Scrn Ur Amphetamines Screen U Benzodiazepines Scrn Urine Cocaine Screen U Marijuana (THC) Screen Acetone, Qual COVID-19 ([facility]) COVID-19 Clin Com Influenza Type A ([facility]) Influenza Type B ([facility]) Influenza A & B Note 09/07/21 09/07/21 09/07/21 02:55 06:38 06:38 MCV MCH MCHC RDW Plt Count MPV Absolute Nucleated RBC Nucleated RBC % (auto) D-Dimer High Sensitivty Anion Gap Estim Creat Clear Calc Estimated GFR Random Glucose Lactic Acid Calcium Total Bilirubin AST ALT Alkaline Phosphatase Troponin I High Sens B-Natriuretic Peptide Total Protein Albumin Lipase Urine Color Urine Appearance Urine pH Ur Specific [place] Urine Protein Urine Glucose (UA) Urine Ketones Urine Blood Urine Nitrite Ur Leukocyte Esterase Urine RBC Urine WBC Ur Squamous Epith Cells Urine Bacteria Urine Yeast Urine Opiates Screen Not Detected Urine Fentanyl Screen POSITIVE H Ur Barbiturates Screen Not Detected Ur Phencyclidine Scrn Not Detected Ur Amphetamines Screen Not Detected U Benzodiazepines Scrn Not Detected Urine Cocaine Screen Not Detected U Marijuana (THC) Screen Not Detected Acetone, Qual COVID-19 ([facility]) Negative COVID-19 Clin Com See Note Influenza Type A ([facility]) Negative Influenza Type B ([facility]) Negative Influenza A & B Note See Note 09/07/21 09:06 MCV MCH MCHC RDW Plt Count MPV Absolute Nucleated RBC Nucleated RBC % (auto) D-Dimer High Sensitivty Anion Gap Estim Creat Clear Calc Estimated GFR Random Glucose Lactic Acid Calcium Total Bilirubin AST ALT Alkaline Phosphatase Troponin I High Sens < 3.5 B-Natriuretic Peptide Total Protein Albumin Lipase Urine Color Urine Appearance Urine pH Ur Specific Ararat Urine Protein Urine Glucose (UA) Urine Ketones Urine Blood Urine Nitrite Ur Leukocyte Esterase Urine RBC Urine WBC Ur Squamous Epith Cells Urine Bacteria Urine Yeast Urine Opiates Screen Urine Fentanyl Screen Ur Barbiturates Screen Ur Phencyclidine Scrn Ur Amphetamines Screen U Benzodiazepines Scrn Urine Cocaine Screen U Marijuana (THC) Screen Acetone, Qual COVID-19 ([facility]) COVID-19 Clin Com Influenza Type A ([facility]) Influenza Type B ([facility]) Influenza A & B Note Imaging Radiologist's Impressions: Impressions Chest X-Ray 09/07/21 02:44 IMPRESSION: Interstitial prominence, similar to prior and which may reflect a degree of congestion. No new consolidation. Chest CTA 09/07/21 05:45 IMPRESSION: 1. Limited evaluation due to body habitus and bolus timing. No central pulmonary embolus is seen, though evaluation of the remaining vessels is incomplete, and therefore segmental or subsegmental emboli cannot reliably excluded. 2. Extensive groundglass opacities throughout the lungs, which could be secondary to edema versus infection in the proper clinical setting. 3. Cardiomegaly. VTE: negative Assessment and Plan (1) DMII (diabetes mellitus, type 2): Status: Acute Plan This is a 51 year old female with a PMH of insulin dependent DM, polysusbtance abuse, OUD on suboxone, hypothyroidism, chronic respiratory failure with hypoxia, morbid obesity, mood disorder who presents to the hospital with multiple complaints for several days duration. She has had 2 recent hospitalizations: She was admitted from 08/13/21 to 08/17/21 for emphysematous pyelonephritis with severe R hydronephrosis for which she underwent R ureteral stenting and was treated for E.coli infection. 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 1. Shortness of breath Now improved. She is to be on 2L NC, but presented on RA -- unclear if she using her O2 at home. Continue home oxygen. CTA neg for PE, but diffuse ground glass opacities. On my person review of the imaging studies, it appears to be slightly less dense compared to her CT from 08/19. Likely represents resolving cocaine induced hyper-sensitivity pneumonitis. Will start her on a course of steroids, duration to be determined. Additionally, despite a negative BNP -- there maybe some cardiogenic edema playing a role. Will get formal Echo. Patient does not carry a formal diagnosis of CHF. 2. Abdominal pain on exam, no evidence of superficial abscess, although her clinical exam may not be the most accurate due to body habitus. Will check CT abd/pelvis. 3. Possible UTI UA is positive but the patient does not endorse any symptoms. given a dose of Rocephin in the ED, will continue and follow culture data 4. Lower extremity edema / pain DVT studies to rule out clot clinically does not appear to be cellulitic in nature possibly secondary to chronic venous stasis 5. DM basal + bolus 6. Mood continue baseline meds 7. HTN continue baseline meds 8. Morbidy obesity this is likely playing a role in her respiratory status. diet/weight loss/exercise consider outpatient bariatric referral 9. OUD suboxone Full Code DVT pptx, Lovenox Quality Stroke Does the patient have a stroke diagnosis?: No VTE Prior VTE?: No VTE Risk Level:: Medical - moderate - high VTE Device Contraindication: Treatment Not Indicated VTE Drug Contraindication: N/A - Med Ordered
--- NOTE | 2021-09-07 12:00 | CA_ITS ---
Transthoracic Echocardiogram Patient (Last, First, Middle): Betzaida Cole, Gender: Female Date of : 1970 Age: 51 Procedure Date: 09/07/2021 Procedure Type: Transthoracic Echocardiogram Location: ER Height: 162.56 cm Weight: 141.07 kg BSA: 2.36 m2 Heart Rate: bpm BP: 136 / 82 mmHg Firefighting Equipment Specialist: Referring MD: Miguel Dolan MD Manager Of Care: Yasmani Godfrey MD Symptoms: shortness of breath, recent cocaine use Study Quality: Fair ECG Rhythm: Sinus Conclusions: - 1. Normal LV systolic function 2. Mildly dilated left atrium 3. Normal cardiac valvular Doppler 4. [id number] elevation of right ventricular systolic pressure with significant elevation of right atrial pressures 5. Trivial pericardial effusion Findings Left Ventricle Normal left ventricular size, thickness, and systolic function. The visually estimated ejection fraction is between 55-60%. Spectral Doppler is indicative of a normal filling pattern. Right Ventricle Normal right ventricular cavity size and systolic function. Atria The left atrium is mildly dilated. Interatrial shunt cannot be excluded. The right atrium was not well visualized. Aortic Valve The aortic valve structure and function is likely normal. There is no aortic valve stenosis. There is no aortic valve regurgitation. Mitral Valve Likely normal mitral valve structure and function. There is trace mitral valve regurgitation. There is no mitral valve stenosis. Pulmonic Valve The pulmonic valve was not well visualized. Tricuspid Valve Likely normal tricuspid valve structure and function. There is mild tricuspid valve regurgitation. Significantly elevated right atrial pressure. Mild to moderate pulmonary hypertension is present. Great Vessels All visible segments of the aorta are normal in size. The pulmonary artery was not well visualized. Venous The inferior vena cava is moderately dilated and does not collapse with inspiration. Pericardium/Pleural There is a trivial pericardial effusion. Measurements 2D Linear Measurements IVSd: 1.12 0.6-0.9/0.6-1.0 cm LVIDd: 5.31 3.9-5.3/4.2-5.9 cm LVIDd Index: 2.25 2.4-3.2/2.2-3.1 cm/m2 LVIDs: 3.20 2.0-3.6 cm LVPWd: 1.13 0.7-1.1 cm Ao Root: 3.00 2.1-3.5 cm LA Diam: 4.60 2.7-3.8/3.0-4.0 cm LAIDs Index: 1.95 1.5-2.3 cm/m2 LV Mass: 293.65 67-162/88-224 g LV Mass Index: 124.43 43-95/49-115 g/m2 LVOT Diam: 2.30 3.0+(-)1.3 cm 2D Systolic Function EF 4C: 54.20 >55% EF 2C: 52.70 >55% Mitral Valve MV Pk E: 1.01 MV PK A: 0.85 MV Decel Time: 170.00 E/A: 1.20 E'Lateral: 9.46 E'Medial: 6.53 E/E' Med: 15.50 E/E' Lat: 10.70 PHT: 50.00 MVA PHT: 4.40 Decel Weston: 5.96 Aortic Valve AoV Pk Ricardo: 1.39 AoV Mn Ricardo: 0.90 AoV VTI: 0.41 AoV Pk Grad: 8.00 Aov Mn Grad: 4.00 SAEID Cont.VTI: 2.56 LVOT LVOT Pk Ricardo: 0.93 LVOT Mn Ricadro: 0.60 LVOT VTI: 0.25 LVOT Pk Grad: 3.00 LVOT Mn Grad: 2.00 LVOT Diam: 2.30 LVOT Area: 4.15 Diastolic Function MV Pk E: 1.01 MV Pk A: 0.85 E/A: 1.20 E'Medial: 6.53 E/E' Med: 15.50 E' Laterial: 9.46 E/E' Lat: 10.70 Tricuspid Valve TR Pk Ricardo: 2.91 TR Pk Grad: 34.00 RA Press: 15.00 RVSP: 49.00 Great Vessels Aorta Ao Root-2D: 3.00 2.0-3.7 cm Ao Asc: 3.60 2.1-3.4 cm Pulmonary Valve PV Pk Ricardo: 1.11 Peak PV Grad: 5.00 Updated in Other Vendor System with Status of Final Yasmani Godfrey MD electronically signed on 09/07/2021 5:58:51 PM with status of Final
[2021-09-07 13:20] LABS: Glucose, Whole Blood 138 mg/dL (60-115)
[2021-09-07] MEDS: Insulin Glargine,Hum.rec.anlog 100 UNIT/ML 10 ML VIAL 36 UNIT SUBCUT ×2 (13:23→22:15)
[2021-09-07] MEDS: Gabapentin 600 MG TABLET PO ×2 (13:23→22:12)
[2021-09-07] MEDS: FLUoxetine HCl 20 MG CAPSULE 60 MG PO (13:23)
[2021-09-07] MEDS: Enoxaparin Sodium 40 MG/0.4 ML SYRINGE SUBCUT (13:23)
[2021-09-07] MEDS: predniSONE 20 MG TABLET 40 MG PO (13:23)
[2021-09-07] MEDS: clonazePAM 0.5 MG TABLET PO (13:26)
[2021-09-07 15:15] LABS: Glucose, Whole Blood 194 mg/dL (60-115)
[2021-09-07] MEDS: Omeprazole 20 MG CAPSULE.DR PO (15:21)
[2021-09-07] MEDS: Acetaminophen 325 MG TABLET 650 MG PO (15:22)
[2021-09-07] MEDS: Buprenorphine/Naloxone 8/2 mg FILM 1 FILM SUBLINGUAL ×2 (15:22→22:13)
[2021-09-07 18:26] LABS: Glucose, Whole Blood 307 mg/dL (60-115)
[2021-09-07] MEDS: Insulin Lispro 100 UNIT/ML 3 ML VIAL SUBCUT ×2 (18:37→22:14)
[2021-09-07 22:10] LABS: Glucose, Whole Blood 371 mg/dL (60-115)
[2021-09-07] MEDS: Atorvastatin Calcium 80 MG TABLET PO (22:12)
[2021-09-07] MEDS: traZODone HCL 100 MG TABLET PO (22:18)
[2021-09-08] VITALS (8 sets, daily range): BP systolic 120–148; BP diastolic 58–77; PULSE 68–87; RESP 15–18; TEMP 36–36.9; O2SAT 93–97
[2021-09-08] MEDS: Levothyroxine Sodium 200 MCG TABLET PO (05:31)
[2021-09-08] MEDS: Omeprazole 20 MG CAPSULE.DR PO ×2 (05:31→16:20)
[2021-09-08] MEDS: Acetaminophen 325 MG TABLET 650 MG PO ×2 (05:32→14:25)
[2021-09-08 06:04] LABS: Hematocrit 28.3 % (37.0-47.0); Hemoglobin 8.6 g/dl (12.0-16.0); Mean Corpuscular HGB Conc 30.4 g/dl (31.0-35.0); Mean Corpuscular Hemoglobin 28.2 pg (27.0-33.0); Mean Corpuscular Volume 92.8 fL (80.0-98.0); Mean Platelet Volume 10.9 fL (9.4-12.3); Platelet Count 231 X10*3/uL (160-400); Red Blood Count 3.05 X10*6/uL (4.20-5.50); Red Cell Distribution Width 15.5 % (11.0-16.0); White Blood Count 5.7 X10*3/uL (4.8-10.8)
[2021-09-08 06:44] LABS: Anion Gap 12 (12-20); Blood Urea Nitrogen 26 mg/dL (9-16); Calcium 8.7 mg/dL (8.4-10.2); Carbon Dioxide 23 mmol/L (22-29); Chloride 106 mmol/L (96-108); Creatinine Clr Calc Pharmacy 79.6; Estimated Glomerular Filt Rate 48; Glucose Random 322 mg/dL (60-115); Potassium 5.9 mmol/L (3.3-5.1); Sodium 135 mmol/L (135-145)
[2021-09-08 07:30] LABS: Glucose, Whole Blood 264 mg/dL (60-115)
[2021-09-08] MEDS: Insulin Glargine,Hum.rec.anlog 100 UNIT/ML 10 ML VIAL 36 UNIT SUBCUT ×2 (08:00→20:47)
[2021-09-08] MEDS: Sodium Zirconium Cyclosilicate 10 GM POWD.PACK PO ×3 (08:01→18:29)
[2021-09-08] MEDS: lisinopriL 20 MG TABLET PO (08:01)
[2021-09-08] MEDS: Loratadine 10 MG TABLET PO (08:01)
[2021-09-08] MEDS: Insulin Lispro 100 UNIT/ML 3 ML VIAL SUBCUT ×5 (08:01→20:46)
[2021-09-08] MEDS: Gabapentin 600 MG TABLET PO ×3 (08:01→20:46)
[2021-09-08] MEDS: Aspirin Enteric Coated 81 MG TABLET.DR PO (08:01)
[2021-09-08] MEDS: hydroCHLOROthiazide 25 MG TABLET PO (08:01)
[2021-09-08] MEDS: FLUoxetine HCl 20 MG CAPSULE 60 MG PO (08:02)
[2021-09-08] MEDS: predniSONE 20 MG TABLET 40 MG PO (08:02)
[2021-09-08] MEDS: Buprenorphine/Naloxone 8/2 mg FILM 1 FILM SUBLINGUAL ×3 (08:02→20:46)
[2021-09-08] MEDS: 0.9 % Sodium Chloride Flush 3 ML SYRINGE IVFLUSH ×2 (08:30→18:36)
[2021-09-08 11:40] LABS: Glucose, Whole Blood 219 mg/dL (60-115)
[2021-09-08] MEDS: Enoxaparin Sodium 40 MG/0.4 ML SYRINGE SUBCUT (12:51)
[2021-09-08] MEDS: cefTRIAXone sodium 1 GM in 0.9 % Sodium Chloride 50 ML IV (12:52)
[2021-09-08] MEDS: clonazePAM 0.5 MG TABLET PO (12:53)
--- NOTE | 2021-09-08 13:27 | ECG_ITS ---
Test Reason : HYPERKALEMIA Blood Pressure : / mmHG Vent. Rate : 068 BPM Atrial Rate : 068 BPM P-R Int : 164 ms QRS Dur : 086 ms QT Int : 388 ms P-R-T Axes : 023 004 019 degrees QTc Int : 412 ms Normal sinus rhythm Normal ECG When compared with ECG of 07-SEP-2021 08:49, No significant change was found Referred By: Sary Crowell Electronically Signed By:CHU DIXON MD
[2021-09-08 13:28] LABS: Potassium 6.1 mmol/L (3.3-5.1)
--- NOTE | 2021-09-08 14:51 | HO.PM.IMPN ---
Subjective Subjective Date of Service: 09/08/21 Interval History: Seen and examined this morning Has had intermittent shortness of breath, dry cough, seems to be improving; currently saturating with baseline 2 L supplemental oxygen Review of Systems Review of Systems: Yes all other systems are reviewed and are negative Constitutional Constitutional: Denies chills and Denies fever(s) Cardiovascular Cardiovascular: Denies chest pain, Denies palpitations and Reports dyspnea Respiratory Respiratory: Reports cough and Reports dyspnea Gastrointestinal Gastrointestinal: Denies abdominal pain Endocrine Endocrine: Denies palpitations Physical Exam Vital Signs: Vital Signs: Last Vital Signs Temp 96.8 F 09/08/21 11:12 Pulse 68 09/08/21 11:12 Resp 17 09/08/21 11:12 BP 142/72 H 09/08/21 11:12 Pulse Ox 93 09/08/21 11:12 BMI result Body Mass Index 53.4 Const: General: cooperative, comfortable, alert and awake Nutritional Appearance: obese Orientation/consciousness: patient oriented x3 Resp: Other: Diminished breath sounds bilaterally Effort & Inspection: normal respiratory effort and able to speak in complete sentences Cardio: Rate: regular rate Heart sounds: S1 normal heart sound present and S2 normal heart sound present GI: Inspection: No distended, Yes Abdominal panniculus present and Yes obesity Palpation (GI): Soft to palpation and nontender Skin: Other: chronic venous stasis skin changes Neuro: General: patient oriented x3 Extrem: Other: 1+ edema b/l legs Objective Data Active Medications Acetaminophen (Acetaminophen 325 Mg Tablet) 650 mg PO Q6H PRN PRN Reason: Pain, Mild (Pain Scale 1-3) Last Admin: 09/08/21 14:25 Dose: 650 mg Documented by: JENNY Aspirin (Aspirin Enteric Coated 81 Mg Tablet.) 81 mg PO DAILY [facility] Last Admin: 09/08/21 08:01 Dose: 81 mg Documented by: JENNY Atorvastatin Calcium (Atorvastatin Calcium 80 Mg Tablet) 80 mg PO BEDTIME [facility] Last Admin: 09/07/21 22:12 Dose: 80 mg Documented by: ARNOL Buprenorphine/Naloxone (Buprenorphine/Naloxone 8/2 Mg Film) 1 film SUBLINGUAL TID [facility] Last Admin: 09/08/21 14:25 Dose: 1 film Documented by: JENNY Clonazepam (Clonazepam 0.5 Mg Tablet) 0.5 mg PO DAILY PRN PRN Reason: Anxiety Last Admin: 09/08/21 12:53 Dose: 0.5 mg Documented by: JENNY Enoxaparin Sodium (Enoxaparin Sodium 40 Mg/0.4 Ml Syringe) 40 mg SUBCUT Q24H [facility] Last Admin: 09/08/21 12:51 Dose: 40 mg Documented by: JENNY Fluoxetine HCl (Fluoxetine Hcl 20 Mg Capsule) 60 mg PO DAILY [facility] Last Admin: 09/08/21 08:02 Dose: 60 mg Documented by: JENNY Gabapentin (Gabapentin 600 Mg Tablet) 600 mg PO TID@0800,1200,2000 [facility] Last Admin: 09/08/21 12:52 Dose: 600 mg Documented by: JENNY Hydrochlorothiazide (Hydrochlorothiazide 25 Mg Tablet) 25 mg PO DAILY [facility] Last Admin: 09/08/21 08:01 Dose: 25 mg Documented by: JENNY Ceftriaxone Sodium 1 gm/ (Sodium Chloride) 50 mls @ 100 mls/hr IV Q24H [facility] Last Infusion: 09/08/21 13:37 Dose: 0 mls/hr Documented by: JENNY Insulin Glargine (Insulin Glargine,Hum.Rec.Anlog 100 Unit/Ml 10 Ml Vial) 36 unit SUBCUT BID [facility] Last Admin: 09/08/21 08:00 Dose: 36 unit Documented by: JENNY Insulin Human Lispro (Insulin Lispro 100 Unit/Ml 3 Ml Vial) 0 unit SUBCUT QIDACHS [facility]; Protocol Last Admin: 09/08/21 12:51 Dose: 4 unit Documented by: JENNY Comments: fsbs 219 Levothyroxine Sodium (Levothyroxine Sodium 200 Mcg Tablet) 200 mcg PO DAILY@0630 [facility] Last Admin: 09/08/21 05:31 Dose: 200 mcg Documented by: DICK Loratadine (Loratadine 10 Mg Tablet) 10 mg PO DAILY [facility] Last Admin: 09/08/21 08:01 Dose: 10 mg Documented by: JENNY Omeprazole (Omeprazole 20 Mg Brody.) 20 mg PO BID@0630,1630 [facility] Last Admin: 09/08/21 05:31 Dose: 20 mg Documented by: DICK Pharmacy Consult (Consult Rx Perform Med Rec) 1 each MISCELLANE ONCE PRN PRN Reason: Consult order Prednisone (Prednisone 20 Mg Tablet) 40 mg PO DAILY [facility] Last Admin: 09/08/21 08:02 Dose: 40 mg Documented by: JENNY Sodium Chloride (0.9 % Sodium Chloride Flush 3 Ml Syringe) 3 ml IVFLUSH QSHIFT [facility] Last Admin: 09/08/21 08:30 Dose: 3 ml Documented by: JENNY Trazodone HCl (Trazodone Hcl 100 Mg Tablet) 100 mg PO BEDTIME PRN PRN Reason: Insomnia Last Admin: 09/07/21 22:18 Dose: 100 mg Documented by: ARNOL Labs CBC & Chem 7: 09/08/21 05:46 09/08/21 12:29 Labs: Laboratory Results - last 24 hr 09/07/21 09/07/21 09/07/21 15:09 18:19 22:06 MCV MCH MCHC RDW Plt Count MPV Absolute Nucleated RBC Nucleated RBC % (auto) Anion Gap Estim Creat Clear Calc Estimated GFR POC Glucose 194 H 307 H 371 H* Random Glucose Calcium 09/08/21 09/08/21 09/08/21 05:46 05:46 06:55 MCV 92.8 MCH 28.2 MCHC 30.4 L RDW 15.5 Plt Count 231 MPV 10.9 Absolute Nucleated RBC 0.000 Nucleated RBC % (auto) 0.0 Anion Gap 12 Estim Creat Clear Calc 79.6 Estimated GFR 48 POC Glucose 264 H Random Glucose 322 H Calcium 8.7 09/08/21 10:52 MCV MCH MCHC RDW Plt Count MPV Absolute Nucleated RBC Nucleated RBC % (auto) Anion Gap Estim Creat Clear Calc Estimated GFR POC Glucose 219 H Random Glucose Calcium Microbiology Microbiology Results: Microbiology 09/07/21 00:00 Urine Culture - Preliminary Urine Catheterized - Straight Catheter Enterococcus/Streptococcus sp 09/07/21 01:21 Blood Culture - Preliminary Blood - Venous No growth after 24 hours. 09/07/21 01:21 Blood Culture - Preliminary Blood - Venous No growth after 24 hours. Assessment and Plan (1) UTI (urinary tract infection): Status: Acute (2) Hyperkalemia: Status: Acute Plan This is a 51 year old female with a PMH of insulin dependent DM, polysusbtance abuse, OUD on suboxone, hypothyroidism, chronic respiratory failure with hypoxia, morbid obesity, mood disorder who presents to the hospital with multiple complaints for several days duration. She has had 2 recent hospitalizations: She was admitted from 08/13/21 to 08/17/21 for emphysematous pyelonephritis with severe R hydronephrosis for which she underwent R ureteral stenting and was treated for E.coli infection. 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 Hyperkalemia, potassium up to 6.1 EKG - similar to previous [facility] monitoring d/c lisinopril follow potassium level Shortness of breath, intermittent She is to be on 2L NC, but presented on RA -reports using her O2 at home as needed Continue home oxygen. CTA neg for PE, but diffuse ground glass opacities slightly less dense compared to her CT from 08/19. Likely represents resolving cocaine induced hyper-sensitivity pneumonitis. Will continue oral steroids echo showing preserved EF with no diastolic dysfunction. Mild to moderate pulmonary hypertension Abdominal pain on exam, no evidence of superficial abscess, although her clinical exam may not be the most accurate due to body habitus. CT abdomen and pelvis with no cause of abdominal pain Possible UTI UA is positive but the patient does not endorse any symptoms. given a dose of Rocephin in the ED, will continue and follow culture data Lower extremity edema / pain DVT study negative for clot clinically does not appear to be cellulitic in nature possibly secondary to chronic venous stasis and low albumin DM basal + bolus Mood continue baseline meds HTN d/c lisinopril due to hyperkalemia Continue HCTZ Follow BP closely, if elevated can start low-dose Norvasc Morbidy obesity this is likely playing a role in her respiratory status. diet/weight loss/exercise consider outpatient bariatric referral will need outpatient sleep study OUD suboxone Hypothyroidism Continue Synthroid Full Code DVT pptx, Lovenox Attending-Dr. Dolan Requires ongoing inpatient hospitalization due to close monitoring and treatment for hyperkalemia Quality Stroke Does the patient have a stroke diagnosis?: No VTE Prior VTE?: No VTE Risk Level:: Medical - moderate - high VTE Device Contraindication: Treatment Not Indicated VTE Drug Contraindication: N/A - Med Ordered
--- NOTE | 2021-09-08 15:14 | MHC.CM.PN ---
Addendum entered by Emma Garcia 09/08/21 15:22: PATIENT LIVES WITH HER KEYSMITH/BOYFRIEND. SHE RECEIVES SERVICES THROUGH [facility]. SHE IS ON HOME O2 AND HAS AMPLE SUPPLY AT HOME. PLAN IS HOME TOMORROW Original Note: PATIENT TO REMAIN TONIGHT FOR TREATMENT OF HYPERKALEMIA AND MONITORING OF O2 STATS. PLAN IS RETURN HOME TOMORROW
[2021-09-08 16:09] LABS: Glucose, Whole Blood 381 mg/dL (60-115)
[2021-09-08 18:27] LABS: Glucose, Whole Blood 340 mg/dL (60-115)
[2021-09-08] MEDS: Calcium Gluconate/NaCl,Iso-Osm 1 GM/50 ML PLAST..BAG IV (18:51)
[2021-09-08] MEDS: Insulin Regular, Human 100 UNIT/ML 3 ML VIAL IVPUSH (18:52)
[2021-09-08 19:25] LABS: Glucose, Whole Blood 323 mg/dL (60-115)
[2021-09-08 20:37] LABS: Glucose, Whole Blood 282 mg/dL (60-115)
[2021-09-08] MEDS: Atorvastatin Calcium 80 MG TABLET PO (20:46)
[2021-09-08 21:39] LABS: Potassium 5.7 mmol/L (3.3-5.1)
[2021-09-09] MEDS: traZODone HCL 100 MG TABLET PO (00:03)
[2021-09-09] MEDS: 0.9 % Sodium Chloride Flush 3 ML SYRINGE IVFLUSH ×4 (02:29→22:03)
[2021-09-09 03:44] VITALS: BP 124/68; PULSE 66; RESP 16; TEMP 36.5; O2SAT 98
[2021-09-09] MEDS: Levothyroxine Sodium 200 MCG TABLET PO (05:15)
[2021-09-09] MEDS: Omeprazole 20 MG CAPSULE.DR PO ×2 (05:15→15:46)
[2021-09-09 06:58] VITALS: BP 136/72; PULSE 65; RESP 18; TEMP 36.5; O2SAT 96
[2021-09-09 07:30] LABS: Glucose, Whole Blood 149 mg/dL (60-115)
[2021-09-09 08:52] LABS: Anion Gap 13 (12-20); Blood Urea Nitrogen 28 mg/dL (9-16); Calcium 8.6 mg/dL (8.4-10.2); Carbon Dioxide 23 mmol/L (22-29); Chloride 103 mmol/L (96-108); Estimated Glomerular Filt Rate 53; Glucose Random 144 mg/dL (60-115); Potassium 4.8 mmol/L (3.3-5.1); Sodium 134 mmol/L (135-145)
[2021-09-09] MEDS: Insulin Glargine,Hum.rec.anlog 100 UNIT/ML 10 ML VIAL 36 UNIT SUBCUT ×2 (08:55→20:37)
[2021-09-09] MEDS: Enoxaparin Sodium 40 MG/0.4 ML SYRINGE SUBCUT (08:56)
[2021-09-09] MEDS: Gabapentin 600 MG TABLET PO ×3 (08:56→20:41)
[2021-09-09] MEDS: FLUoxetine HCl 20 MG CAPSULE 60 MG PO (08:56)
[2021-09-09] MEDS: Acetaminophen 325 MG TABLET 650 MG PO ×2 (08:56→15:46)
[2021-09-09] MEDS: predniSONE 20 MG TABLET 40 MG PO (08:56)
[2021-09-09] MEDS: hydroCHLOROthiazide 25 MG TABLET PO (08:56)
[2021-09-09] MEDS: Loratadine 10 MG TABLET PO (08:56)
[2021-09-09] MEDS: Aspirin Enteric Coated 81 MG TABLET.DR PO (08:56)
[2021-09-09] MEDS: Buprenorphine/Naloxone 8/2 mg FILM 1 FILM SUBLINGUAL ×3 (08:57→20:37)
[2021-09-09 11:01] VITALS: BP 133/69; PULSE 74; RESP 18; TEMP 36.6; O2SAT 95
[2021-09-09 11:36] LABS: Glucose, Whole Blood 196 mg/dL (60-115)
[2021-09-09] MEDS: cefTRIAXone sodium 1 GM in 0.9 % Sodium Chloride 50 ML IV (12:02)
[2021-09-09] MEDS: clonazePAM 0.5 MG TABLET PO (12:03)
[2021-09-09] MEDS: Insulin Lispro 100 UNIT/ML 3 ML VIAL SUBCUT ×3 (12:03→21:58)
--- NOTE | 2021-09-09 13:52 | W.MHC.F2F ---
Service Date Service Date: 09/09/21 Encounter Date of encounter: 09/09/21 Reasons for Services Signs and symptoms assessed: deconditioning, gait training, therapeutic activities due to impaired gait pattern, muscle weakness and impaired balance Reason for physical therapy: home safety and mobility, therapeutic exercises and gait/transfer training Overseeing Care: Ray Cox Homebound: Leaving the home is medically contraindicated at this time without the asist of a device and/or another person due th the listed conditions above and below. Reason homebound: unsteady gait / fall risk and poor balance / fall risk Certification: Based on the above findings, I certify that this patient is confined to the home and needs intermittent custodial care, physical therapy and/or speech therapy, or continues to need occupational therapy. The patient is under my care, and I have initiated the establishment of the plan of care. The patient will be followed by a physician who will periodically review the plan of care.
--- NOTE | 2021-09-09 14:21 | PM.DS ---
DS: Providers Provider Date of Service: 09/10/21 Date of admission: 09/07/21 09:57 Date of discharge: 09/10/21 Primary care physician: SUGEY Esteban Consults: 09/09/21 11:44 Consult to Infectious Diseases Routine Consulting Provider: Cindy Rodriguez Reason for consultation: UTI Has provider been notified: No Attending physician on discharge: Cade Huerta Discharging clinician: Sary Crowell DS: Diagnosis Discharge Diagnosis (1) UTI (urinary tract infection): Status: Acute (2) Hyperkalemia: Status: Acute DS: Summary Hospital Course Hospital Course: From H&P on the day of admission This is a 51 year old female with a PMH of insulin dependent DM, polysusbtance abuse, OUD on suboxone, hypothyroidism, chronic respiratory failure with hypoxia, morbid obesity, mood disorder who presents to the hospital with multiple complaints for several days duration. She reports that she has been feeling increasingly short of breath, both with exertion and at rest. She reprots a non-productive cough, but this unchanged. She denies any anginal or pleuritic chest pain. She denies any fevers but does endorse chills. Secondly, she reports abdominal pain without nausea and vomiting. She feels that there is an orange sized ball on her abdominal wall which is bothering her. Lastly, she reports bilateral lower extremity swelling and pain (diffuse), L > R. She reports that she ambulates with a walker and denies any fall Upon arrival to the ED, she was noted to be hypoxic down to 85% on RA (she is on 2L NC at home from the last admission). This quickly resolved after she was placed on 2L NC. She underwent further evaluation with a CXR/CTA of the chest which was negative for PE, but did show diffuse ground glass opacities which could present pulmonary edema or infection. BNP is negative Her UA showed pyuria/hematuria/bacteruia with positive Leuk. Esterase and negative nitrites. She was given IV lasix and IV ropcehin. Admission was requested for CHF, UTI, abdominal wall celluitils. Of note, this is the patients 3rd admission to [facility] in the last month. She was admitted from 08/13/21 to 08/17/21 for emphysematous pyelonephritis with severe R hydronephrosis for which she underwent R ureteral stenting and was treated for E.coli infection. 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 Hospital course by problem: Hyperkalemia, potassium up to 6.1. Likely secondary to LISA-inhibitor. She was treated with Lokelma. LISA-inhibitor was discontinued. Potassium levels improved to 4 point a on the day of discharge. Shortness of breath She is to be on 2L NC, but presented on RA -reports using her O2 at home as needed. CTA neg for PE, but diffuse ground glass opacities slightly less dense compared to her CT from 08/19. Likely represents resolving cocaine induced hyper-sensitivity pneumonitis. Patient was initially hypoxic but this was on room air. She has remained saturating in the mid 90s on her home as needed 2 L nasal cannula. ECHO showing preserved EF with no diastolic dysfunction.? Mild to moderate pulmonary hypertension likely related to lung disease and undiagnosed DONATO. She was treated with steroids will be discharged home a steroid taper. Recommend outpatient sleep study, pulmonology referral. Morbid obesity likely contributing as well as deconditioning. Consider outpatient referral to bariatric surgery. Patient was evaluated by Physical therapy who recommended to discharge home with home physical therapy. Possible UTI. UA is positive but the patient does not endorse any symptoms. She was treated empirically with ceftriaxone. Her case was discussed effect his disease is who recommended not to treat with antibiotics as the patient was asymptomatic. Lower extremity edema / pain. DVT study negative for clot. clinically does not appear to be cellulitic in nature. possibly secondary to chronic venous stasis and low albumin Time Spent with Patient Time attestation: Total time spent providing and/or coordinating discharge services: Discharge coordination time: Greater than 30 minutes Quality: Safe Use of Opioids Does Pt have an Active Cancer Diagnosis on the Problem List?: No Quality: Stroke Does the patient have a stroke diagnosis?: No Physical Exam Vital Signs: Vital Signs: Last Vital Signs Temp 97.9 F 09/09/21 11:01 Pulse 74 09/09/21 11:01 Resp 18 09/09/21 11:01 BP 133/69 09/09/21 11:01 Pulse Ox 95 09/09/21 11:01 BMI result Body Mass Index 53.4 DS: Data Data Completed and Pending Completed studies during hospitalization [Text1]: Procedures Assistance with Respiratory Ventilation, Less than 24 Consecutive Hours, Continuous Positive Airway Pressure (08/19/21) Dilation of Right Ureter with Intraluminal Device, Via Natural or Artificial Opening Endoscopic (08/13/21) Fluoroscopy of Right Kidney, Ureter and Bladder (08/13/21) Labs on day of discharge: Laboratory Results - last 24 hr 09/08/21 09/08/21 09/08/21 16:03 16:50 18:22 Sodium Potassium 6.0 H* Chloride Carbon Dioxide Anion Gap BUN Creatinine Estim Creat Clear Calc Estimated GFR POC Glucose 381 H* 340 H Random Glucose Calcium 09/08/21 09/08/21 09/08/21 19:19 20:33 21:08 Sodium Potassium 5.7 H Chloride Carbon Dioxide Anion Gap BUN Creatinine Estim Creat Clear Calc Estimated GFR POC Glucose 323 H 282 H Random Glucose Calcium 09/09/21 09/09/21 09/09/21 07:05 07:44 11:12 Sodium 134 L Potassium 4.8 Chloride 103 Carbon Dioxide 23 Anion Gap 13 BUN 28 H Creatinine 1.09 Estim Creat Clear Calc 87.0 Estimated GFR 53 POC Glucose 149 H 196 H Random Glucose 144 H Calcium 8.6 Preliminary micro results at discharge 09/07/21 00:00 Urine Culture - Preliminary Urine Catheterized - Straight Catheter Enterococcus faecium Yeast 09/07/21 01:21 Blood Culture - Preliminary Blood - Venous No growth after 48 hours. 09/07/21 01:21 Blood Culture - Preliminary Blood - Venous No growth after 48 hours. Discharge Plan Discharge Patient Disposition: Home Health Service Discharge Diagnosis: Hyperkalemia Acute on chronic respiratory failure with hypoxia Referrals: [facility] [Outside] - 1 Week Ray Cox FNP [Primary Care Provider] - 1 Week Frederick Romero MD [Physician] - 2 Weeks Discharge Medications: New prednisone 10 mg tablet See Taper mg PO DAILY Qty: 38 0RF Taper: Prednisone 40 mg daily for 5 Days and 0 Hour 30 mg daily for 3 Days and 0 Hour 20 mg daily for 3 Days and 0 Hour 10 mg daily for 3 Days and 0 Hour hydrochlorothiazide 25 mg tablet 25 mg PO DAILY 30 Days Qty: 30 0RF amlodipine [Norvasc] 5 mg tablet 5 mg PO DAILY 30 Days Qty: 30 0RF Continued atorvastatin 80 mg tablet 1 tab PO BEDTIME 0RF gabapentin 600 mg tablet 1 tab PO TID 0RF ibuprofen 800 mg tablet 1 tab PO TID PRN (Reason: pain) 0RF clonazepam 0.5 mg tablet 1 tab PO DAILY PRN (Reason: Anxiety) 0RF aspirin 81 mg tablet,delayed release (DR/EC) 1 tab PO DAILY 0RF trazodone 100 mg tablet 1 - 3 tab PO BEDTIME PRN (Reason: Insomnia) 0RF omeprazole 20 mg capsule,delayed release(DR/EC) 1 cap PO BID@0630,1630 0RF levothyroxine 200 mcg tablet 1 tab PO DAILY@0630 0RF albuterol sulfate [ProAir HFA] 90 mcg/actuation HFA aerosol inhaler 2 puff PO Q4H PRN (Reason: wheezing) 0RF fluoxetine 20 mg capsule 3 cap PO DAILY 0RF insulin lispro [Humalog KwikPen Insulin] 100 unit/mL insulin pen 15 unit subcut DAILY@1200 0RF Rx Instructions: with lunch insulin lispro [Humalog KwikPen Insulin] 100 unit/mL insulin pen 22 unit subcut DAILY@0900,1700 0RF Rx Instructions: give with food Lantus Solostar U-100 Insulin 100 unit/mL (3 mL) insulin pen 54 unit subcut BID 0RF buprenorphine-naloxone [Suboxone] 8-2 mg film 1 strip sublingual TID 0RF loratadine 10 mg tablet 1 tab PO DAILY 0RF Discontinued lisinopril-hydrochlorothiazide 20-25 mg tablet 1 tab PO DAILY 0RF Discharge Orders: Discharge Order (Routine); Ordered 09/09/21 Ordered By: Sary Crowell Diet: advance to usual diet Activity on Discharge: As tolerated Stand Alone Forms: Patient Portal Discharge page Care Plan Goals: See below Health Concerns: Hyperkalemia Acute on chronic respiratory failure with hypoxia Hyersensitivity pneumonitis Plan of Treatment: Take prednisone as prescribed Call to schedule follow-up appointment with PCP Stop taking lisinopril Start taking Norvasc Recommend outpatient sleep study to evaluate for DONATO Avoid use of opiates/drugs Assessment: see discharge summary Discharge Date/Time: 09/10/21 12:07
--- NOTE | 2021-09-09 14:36 | MHC.CM.PN ---
Addendum entered by Emma Garcia 09/09/21 15:38: [facility] OFFERING FOR RN AND HOME P.T. SKILLS SHE WILL NEED AMBULANCE TRANSPORT HOME QACCORDING TO P.T. EVALUATION Original Note: REFERRAL TO [facility] FOR HOME P.T. NEEDS. CASE MANAGEMENT FOLLOWING FOR PLAN. SHE IS DC HOME TODAY
[2021-09-09 15:44] VITALS: BP 142/69; PULSE 72; RESP 17; TEMP 37.1; O2SAT 95
--- NOTE | 2021-09-09 16:01 | P.PNIM_ITS ---
Subjective Subjective Date of Service: 09/09/21 Interval History: Seen and examined this morning intermittent cough Review of Systems Review of Systems: Yes all other systems are reviewed and are negative Constitutional Constitutional: Denies chills and Denies fever(s) Cardiovascular Cardiovascular: Denies chest pain, Denies palpitations and Denies dyspnea Respiratory Respiratory: Denies cough and Denies dyspnea Endocrine Endocrine: Denies palpitations Physical Exam Vital Signs: Vital Signs: Last Vital Signs Temp 98.7 F 09/09/21 15:44 Pulse 72 09/09/21 15:44 Resp 17 09/09/21 15:44 BP 142/69 H 09/09/21 15:44 Pulse Ox 95 09/09/21 15:44 BMI result Body Mass Index 53.4 Const: General: cooperative, comfortable, alert and awake Nutritional Appearance: obese Orientation/consciousness: patient oriented x3 Resp: Other: Diminished breath sounds bilaterally Effort & Inspection: normal respiratory effort and able to speak in complete sentences Cardio: Rate: regular rate Heart sounds: S1 normal heart sound present and S2 normal heart sound present GI: Inspection: No distended, Yes Abdominal panniculus present and Yes obesity Palpation (GI): Soft to palpation and nontender Skin: Other: chronic venous stasis skin changes Neuro: General: patient oriented x3 Extrem: Other: 1+ edema b/l legs Objective Data Active Medications Acetaminophen (Acetaminophen 325 Mg Tablet) 650 mg PO Q6H PRN PRN Reason: Pain, Mild (Pain Scale 1-3) Last Admin: 09/09/21 15:46 Dose: 650 mg Documented by: JENNY Aspirin (Aspirin Enteric Coated 81 Mg Tablet.) 81 mg PO DAILY [facility] Last Admin: 09/09/21 08:56 Dose: 81 mg Documented by: JENNY Atorvastatin Calcium (Atorvastatin Calcium 80 Mg Tablet) 80 mg PO BEDTIME [facility] Last Admin: 09/08/21 20:46 Dose: 80 mg Documented by: EMY Buprenorphine/Naloxone (Buprenorphine/Naloxone 8/2 Mg Film) 1 film SUBLINGUAL TID [facility] Last Admin: 09/09/21 15:45 Dose: 1 film Documented by: JENNY Clonazepam (Clonazepam 0.5 Mg Tablet) 0.5 mg PO DAILY PRN PRN Reason: Anxiety Last Admin: 09/09/21 12:03 Dose: 0.5 mg Documented by: JENNY Enoxaparin Sodium (Enoxaparin Sodium 40 Mg/0.4 Ml Syringe) 40 mg SUBCUT Q24H [facility] Last Admin: 09/09/21 08:56 Dose: 40 mg Documented by: JENNY Fluoxetine HCl (Fluoxetine Hcl 20 Mg Capsule) 60 mg PO DAILY [facility] Last Admin: 09/09/21 08:56 Dose: 60 mg Documented by: JENNY Gabapentin (Gabapentin 600 Mg Tablet) 600 mg PO TID@0800,1200,2000 [facility] Last Admin: 09/09/21 12:03 Dose: 600 mg Documented by: JENNY Hydrochlorothiazide (Hydrochlorothiazide 25 Mg Tablet) 25 mg PO DAILY [facility] Last Admin: 09/09/21 08:56 Dose: 25 mg Documented by: JENNY Ceftriaxone Sodium 1 gm/ (Sodium Chloride) 50 mls @ 100 mls/hr IV Q24H [facility] Last Infusion: 09/09/21 12:58 Dose: 0 mls/hr Documented by: JENNY Insulin Glargine (Insulin Glargine,Hum.Rec.Anlog 100 Unit/Ml 10 Ml Vial) 36 unit SUBCUT BID [facility] Last Admin: 09/09/21 08:55 Dose: 36 unit Documented by: JENNY Insulin Human Lispro (Insulin Lispro 100 Unit/Ml 3 Ml Vial) 0 unit SUBCUT QIDACHS [facility]; Protocol Last Admin: 09/09/21 12:03 Dose: 2 unit Documented by: JENNY Levothyroxine Sodium (Levothyroxine Sodium 200 Mcg Tablet) 200 mcg PO DAILY@0630 [facility] Last Admin: 09/09/21 05:15 Dose: 200 mcg Documented by: MELVI Loratadine (Loratadine 10 Mg Tablet) 10 mg PO DAILY [facility] Last Admin: 09/09/21 08:56 Dose: 10 mg Documented by: JENNY Omeprazole (Omeprazole 20 Mg Capsule.) 20 mg PO BID@0630,1630 [facility] Last Admin: 09/09/21 15:46 Dose: 20 mg Documented by: JENNY Pharmacy Consult (Consult Rx Perform Med Rec) 1 each MISCELLANE ONCE PRN PRN Reason: Consult order Prednisone (Prednisone 20 Mg Tablet) 40 mg PO DAILY [facility] Last Admin: 09/09/21 08:56 Dose: 40 mg Documented by: JENNY Sodium Chloride (0.9 % Sodium Chloride Flush 3 Ml Syringe) 3 ml IVFLUSH QSHIFT [facility] Last Admin: 09/09/21 15:47 Dose: 3 ml Documented by: JENNY Trazodone HCl (Trazodone Hcl 100 Mg Tablet) 100 mg PO BEDTIME PRN PRN Reason: Insomnia Last Admin: 09/09/21 00:03 Dose: 100 mg Documented by: COLOJ Labs CBC & Chem 7: 09/08/21 05:46 09/09/21 07:44 Labs: Laboratory Results - last 24 hr 09/08/21 09/08/21 09/08/21 16:03 18:22 19:19 Anion Gap Estim Creat Clear Calc Estimated GFR POC Glucose 381 H* 340 H 323 H Random Glucose Calcium 09/08/21 09/09/21 09/09/21 20:33 07:05 07:44 Anion Gap 13 Estim Creat Clear Calc 87.0 Estimated GFR 53 POC Glucose 282 H 149 H Random Glucose 144 H Calcium 8.6 09/09/21 11:12 Anion Gap Estim Creat Clear Calc Estimated GFR POC Glucose 196 H Random Glucose Calcium Microbiology Microbiology Results: Microbiology 09/07/21 00:00 Urine Culture - Preliminary Urine Catheterized - Straight Catheter Enterococcus faecium Yeast 09/07/21 01:21 Blood Culture - Preliminary Blood - Venous No growth after 48 hours. 09/07/21 01:21 Blood Culture - Preliminary Blood - Venous No growth after 48 hours. Assessment and Plan (1) Hypoxic: Status: Acute Plan This is a 51 year old female with a PMH of insulin dependent DM, polysusbtance abuse, OUD on suboxone, hypothyroidism, chronic respiratory failure with hypoxia, morbid obesity, mood disorder who presents to the hospital with multiple complaints for several days duration. She has had 2 recent hospitalizations: She was admitted from 08/13/21 to 08/17/21 for emphysematous pyelonephritis with severe R hydronephrosis for which she underwent R ureteral stenting and was treated for E.coli infection. 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 Hyperkalemia Secondary to LISA-inhibitor Resolved with Lokelma Shortness of breath, intermittent She is to be on 2L NC, but presented on RA -reports using her O2 at home as needed Continue home oxygen. CTA neg for PE, but diffuse ground glass opacities slightly less dense compared to her CT from 08/19. Likely represents resolving cocaine induced hyper- sensitivity pneumonitis. Will continue oral steroids echo showing preserved EF with no diastolic dysfunction. Mild to moderate pulmonary hypertension Abdominal pain on exam, no evidence of superficial abscess, although her clinical exam may not be the most accurate due to body habitus. CT abdomen and pelvis with no cause of abdominal pain Possible UTI UA is positive but the patient does not endorse any symptoms. discussed with ID, d/c abx as patient is asymptomatic Lower extremity edema / pain DVT study negative for clot clinically does not appear to be cellulitic in nature possibly secondary to chronic venous stasis and low albumin DM basal + bolus Mood continue baseline meds HTN d/c lisinopril due to hyperkalemia Continue HCTZ Follow BP closely, if elevated can start low-dose Norvasc Morbidy obesity this is likely playing a role in her respiratory status. diet/weight loss/exercise consider outpatient bariatric referral will need outpatient sleep study OUD suboxone Hypothyroidism Continue Synthroid Full Code DVT pptx, Lovenox Attending-Dr. Dolan Quality Stroke Does the patient have a stroke diagnosis?: No VTE Prior VTE?: No VTE Risk Level:: Medical - moderate - high VTE Device Contraindication: Treatment Not Indicated VTE Drug Contraindication: N/A - Med Ordered
--- NOTE | 2021-09-09 16:02 | MHC.CM.PN ---
PATIENT IS DC ON SUNDAY. HOME WITH NEW [facility] FOR RETIREMENT AND HOME P.T. WILL NEED AMBULANCE HOME ([facility]) RN AND PATIENT AWARE OF PLAN.
[2021-09-09 16:49] LABS: Glucose, Whole Blood 325 mg/dL (60-115)
[2021-09-09 20:00] VITALS: BP 135/62; PULSE 75; RESP 17; TEMP 36.9; O2SAT 95
[2021-09-09] MEDS: Atorvastatin Calcium 80 MG TABLET PO (20:37)
[2021-09-09 21:39] LABS: Glucose, Whole Blood 303 mg/dL (60-115)
--- NOTE | 2021-09-09 22:15 | W.PM.IDCN ---
History of Present Illness Data of Consult Service Date: 09/09/21 Requesting physician: Ashleigh Romero Primary Care Provider: SUGEY Esteban HPI Reason for consult: enterococcus possible UTI She presents with weakness body. She has no dysuria or hematuria. ,She has some diffuse abdominal pain.,6/10 for a day. Review of Systems Review of Systems: Yes all other systems are reviewed and are negative [facility] Past Medical History Medical History Choledocholithiasis High cholesterol HTN (hypertension) Hydroureteronephrosis Kidney stones Family History Family History Mother Coronary artery disease Diabetes Family history: reviewed and not pertinent Surgical History Surgical History No pertinent past surgical history Social History Social History Household Members: Spouse Housing: Apartment Do you presently have visiting nurse or other home services: No Alcohol intake: former Patient Tobacco Use Status: Current someday Tobacco user Tobacco use type: Cigarette Cigarettes Per Day: 1 Second Hand Smoke Exposure: Yes Substance Use Type: Crack/Cocaine service: No Current occupational status: unemployed Meds Allergies Allergy/AdvReac Type Severity Reaction Status Date / Time canagliflozin [From Invokana] Allergy Rash Verified 11/26/20 18:22 latex Allergy Itching Verified 11/26/20 18:22 Penicillins Allergy Rash Verified 11/26/20 18:22 sitagliptin [From Januvia] Allergy Rash Verified 11/26/20 18:22 Active Medications: Current Medications Acetaminophen (Acetaminophen 325 Mg Tablet) 650 mg PO Q6H PRN PRN Reason: Pain, Mild (Pain Scale 1-3) Last Admin: 09/09/21 15:46 Dose: 650 mg Documented by: Aspirin (Aspirin Enteric Coated 81 Mg Tablet.) 81 mg PO DAILY [facility] Last Admin: 09/09/21 08:56 Dose: 81 mg Documented by: Atorvastatin Calcium (Atorvastatin Calcium 80 Mg Tablet) 80 mg PO BEDTIME [facility] Last Admin: 09/09/21 20:37 Dose: 80 mg Documented by: Buprenorphine/Naloxone (Buprenorphine/Naloxone 8/2 Mg Film) 1 film SUBLINGUAL TID [facility] Last Admin: 09/09/21 20:37 Dose: 1 film Documented by: Clonazepam (Clonazepam 0.5 Mg Tablet) 0.5 mg PO DAILY PRN PRN Reason: Anxiety Last Admin: 09/09/21 12:03 Dose: 0.5 mg Documented by: Enoxaparin Sodium (Enoxaparin Sodium 40 Mg/0.4 Ml Syringe) 40 mg SUBCUT Q24H [facility] Last Admin: 09/09/21 08:56 Dose: 40 mg Documented by: Fluoxetine HCl (Fluoxetine Hcl 20 Mg Capsule) 60 mg PO DAILY [facility] Last Admin: 09/09/21 08:56 Dose: 60 mg Documented by: Gabapentin (Gabapentin 600 Mg Tablet) 600 mg PO TID@0800,1200,2000 [facility] Last Admin: 09/09/21 20:41 Dose: 600 mg Documented by: Hydrochlorothiazide (Hydrochlorothiazide 25 Mg Tablet) 25 mg PO DAILY [facility] Last Admin: 09/09/21 08:56 Dose: 25 mg Documented by: Insulin Glargine (Insulin Glargine,Hum.Rec.Anlog 100 Unit/Ml 10 Ml Vial) 36 unit SUBCUT BID [facility] Last Admin: 09/09/21 20:37 Dose: 36 unit Documented by: Insulin Human Lispro (Insulin Lispro 100 Unit/Ml 3 Ml Vial) 0 unit SUBCUT QIDACHS [facility]; Protocol Last Admin: 09/09/21 21:58 Dose: 8 unit Documented by: Levothyroxine Sodium (Levothyroxine Sodium 200 Mcg Tablet) 200 mcg PO DAILY@0630 [facility] Last Admin: 09/09/21 05:15 Dose: 200 mcg Documented by: Loratadine (Loratadine 10 Mg Tablet) 10 mg PO DAILY [facility] Last Admin: 09/09/21 08:56 Dose: 10 mg Documented by: Omeprazole (Omeprazole 20 Mg Capsule.Dr) 20 mg PO BID@0630,1630 [facility] Last Admin: 09/09/21 15:46 Dose: 20 mg Documented by: Pharmacy Consult (Consult Rx Perform Med Rec) 1 each MISCELLANE ONCE PRN PRN Reason: Consult order Prednisone (Prednisone 20 Mg Tablet) 40 mg PO DAILY [facility] Last Admin: 09/09/21 08:56 Dose: 40 mg Documented by: Sodium Chloride (0.9 % Sodium Chloride Flush 3 Ml Syringe) 3 ml IVFLUSH QSHIFT [facility] Last Admin: 09/09/21 22:03 Dose: 3 ml Documented by: Trazodone HCl (Trazodone Hcl 100 Mg Tablet) 100 mg PO BEDTIME PRN PRN Reason: Insomnia Last Admin: 09/09/21 00:03 Dose: 100 mg Documented by: Home Medications Medication Instructions Recorded Confirmed Last Taken Type albuterol sulfate 90 mcg/actuation 2 puff PO Q4H PRN 08/13/21 09/07/21 08/12/21 History aerosol inhaler (ProAir HFA) aspirin 81 mg tablet,delayed 1 tab PO DAILY 08/13/21 09/07/21 09/06/21 History release atorvastatin 80 mg tablet 1 tab PO BEDTIME 08/13/21 09/07/21 09/06/21 History buprenorphine 8 mg-naloxone 2 mg 1 strip SUBLINGUAL TID 08/13/21 09/07/21 09/06/21 History sublingual film (Suboxone) clonazepam 0.5 mg tablet 1 tab PO DAILY PRN 08/13/21 09/07/21 09/06/21 History fluoxetine 20 mg capsule 3 cap PO DAILY 08/13/21 09/07/21 09/06/21 History gabapentin 600 mg tablet 1 tab PO TID 08/13/21 09/07/21 09/06/21 History ibuprofen 800 mg tablet 1 tab PO TID PRN 08/13/21 09/07/21 09/06/21 History insulin glargine 100 unit/mL (3 54 unit SUBCUT BID 08/13/21 09/07/21 09/06/21 History mL) subcutaneous pen (Lantus Solostar U-100 Insulin) insulin lispro 100 unit/mL 15 unit SUBCUT DAILY@1200 08/13/21 09/07/21 09/06/21 History subcutaneous pen (Humalog KwikPen (U-100) Insulin) insulin lispro 100 unit/mL 22 unit SUBCUT DAILY@0900,1700 08/13/21 09/07/21 09/06/21 History subcutaneous pen (Humalog KwikPen (U-100) Insulin) levothyroxine 200 mcg tablet 1 tab PO DAILY@0630 08/13/21 09/07/21 09/06/21 History loratadine 10 mg tablet 1 tab PO DAILY 08/13/21 09/07/21 09/06/21 History omeprazole 20 mg capsule,delayed 1 cap PO BID@0630,1630 08/13/21 09/07/21 09/06/21 History release trazodone 100 mg tablet 1 - 3 tab PO BEDTIME PRN 08/13/21 09/07/21 09/06/21 History Physical Exam Vital Signs: Vital Signs: Last Vital Signs Temp 98.5 F 09/09/21 20:00 Pulse 75 09/09/21 20:00 Resp 17 09/09/21 20:00 BP 135/62 09/09/21 20:00 Pulse Ox 95 09/09/21 20:00 BMI result Body Mass Index 53.4 Const: General: cooperative HEENT: Head: Yes normal to inspection Mouth: Normal oral and palatal mucosa present Resp: Effort & Inspection: normal respiratory effort Cardio: Rate: regular rate Rhythm: regular rhythm GI: Palpation (GI): Soft to palpation and nontender Skin: General skin exam: no rashes or lesions noted Results Labs CBC & Chem 7: 09/08/21 05:46 09/09/21 07:44 Labs: BMP 09/09/21 07:44 Sodium 134 L Potassium 4.8 Chloride 103 Carbon Dioxide 23 BUN 28 H Creatinine 1.09 Calcium 8.6 Microbiology Microbiology Results: Microbiology 09/07/21 00:00 Urine Catheterized - Straight Catheter Urine Culture - Preliminary Enterococcus faecium Yeast 09/07/21 01:21 Blood - Venous Blood Culture - Preliminary No growth after 48 hours. 09/07/21 01:21 Blood - Venous Blood Culture - Preliminary No growth after 48 hours. Assessment and Plan (1) CHF exacerbation: Status: Acute There are no urinary tract symptoms such as hematuria or fever Plan No antibiotics at this time
[2021-09-09 23:43] VITALS: BP 149/77; PULSE 70; RESP 16; TEMP 37; O2SAT 96
[2021-09-10 04:00] VITALS: BP 136/70; PULSE 68; RESP 17; TEMP 36.6; O2SAT 96
[2021-09-10] MEDS: Omeprazole 20 MG CAPSULE.DR PO (04:39)
[2021-09-10] MEDS: Levothyroxine Sodium 200 MCG TABLET PO (04:39)
[2021-09-10 07:03] VITALS: BP 158/80; PULSE 60; RESP 20; TEMP 36.6; O2SAT 100
[2021-09-10 07:34] LABS: Glucose, Whole Blood 91 mg/dL (60-115)
[2021-09-10] MEDS: Aspirin Enteric Coated 81 MG TABLET.DR PO (08:04)
[2021-09-10] MEDS: predniSONE 20 MG TABLET 40 MG PO (08:04)
[2021-09-10] MEDS: Buprenorphine/Naloxone 8/2 mg FILM 1 FILM SUBLINGUAL (08:04)
[2021-09-10] MEDS: Loratadine 10 MG TABLET PO (08:04)
[2021-09-10] MEDS: FLUoxetine HCl 20 MG CAPSULE 60 MG PO (08:04)
[2021-09-10] MEDS: hydroCHLOROthiazide 25 MG TABLET PO (08:04)
[2021-09-10] MEDS: Gabapentin 600 MG TABLET PO (08:04)
[2021-09-10] MEDS: 0.9 % Sodium Chloride Flush 3 ML SYRINGE IVFLUSH (08:04)
[2021-09-10 09:34] VITALS: O2SAT 94
--- NOTE | 2021-09-10 12:42 | MHC.CM.PN ---
PT DISCHARGED HOME TODAY WITH [facility] BLS TRANSPORT
== END 2021-09-10 12:07 | disposition home health service (06) ==
LOC: HO.ED 09-07 07:27 → HO.EDOVER 09-07 10:11 → HO.S3 09-07 23:37
PROVIDERS: Admitting Provider Family Medicine; Emergency Provider Student in an Organized Health Care Education/Training Program; PCP Nurse Practitioner Family; Visit Provider Physician Assistant Medical
DX: J96.21 Acute and chronic respiratory failure with hypoxia (principal); J67.9 Hypersensitivity pneumonitis due to unspecified organic dust; E11.9 Type 2 diabetes mellitus without complications; N39.0 Urinary tract infection, site not specified; B95.2 Enterococcus as the cause of diseases classified elsewhere; E87.5 Hyperkalemia; I11.0 Hypertensive heart disease with heart failure; I50.9 Heart failure, unspecified; L03.90 Cellulitis, unspecified; R10.9 Unspecified abdominal pain; E03.9 Hypothyroidism, unspecified; E78.00 Pure hypercholesterolemia, unspecified; N13.2 Hydronephrosis with renal and ureteral calculous obstruction; K80.50 Calculus of bile duct without cholangitis or cholecystitis without obstruction; M62.08 Separation of muscle (nontraumatic), other site; R79.89 Other specified abnormal findings of blood chemistry; E66.01 Morbid (severe) obesity due to excess calories; F17.210 Nicotine dependence, cigarettes, uncomplicated; F14.90 Cocaine use, unspecified, uncomplicated; Z68.43 Body mass index [BMI] 50.0-59.9, adult; Z91.81 History of falling; Z20.822 Contact with and (suspected) exposure to COVID-19; Z96.0 Presence of urogenital implants; Z88.0 Allergy status to penicillin; Z88.8 Allergy status to other drugs, medicaments and biological substances; Z91.040 Latex allergy status; Z79.4 Long term (current) use of insulin; Z79.82 Long term (current) use of aspirin; Z79.52 Long term (current) use of systemic steroids; Z79.899 Other long term (current) drug therapy; Z16.21 Resistance to vancomycin; Z16.11 Resistance to penicillins; Z16.29 Resistance to other single specified antibiotic
CPT/HCPCS: 36415; 71045; 71275; 74176; 80048; 80053; 80307; 81001; 82009; 82947; 83605; 83690; 83880; 84132; 84484; 85027; 85379; 87040; 87086; 87088; 87186; 87502; 87635; 93005; 93306; 93970; 96365; 96366; 96367; 96372; 96375; 97162; 99218; 99285; C1758; J0610; J0696; J1650; J1940; Q9957; Q9967

== ENCOUNTER → 2021-09-21 13:40 | Outpatient (BNVA) | payer MEDICAID, SELFPAY | PROVIDERS: PCP Nurse Practitioner Family; Visit Provider Urology | DX: N12 Tubulo-interstitial nephritis, not specified as acute or chronic (principal) | CPT/HCPCS: 52310; 99212 ==

== ENCOUNTER 2021-10-04 21:08 | Inpatient (IN) | payer MEDICAID, SELFPAY ==
--- NOTE | ~2021-10-04 | NM_ITS ---
EXAMINATION: PULMONARY PERFUSION STUDY CLINICAL INFORMATION: Shortness of breath. COMPARISON: No previous lung scan is available for comparison. A radiograph of the chest dated 10/04/2021 is available for comparison. TECHNIQUE: Following the intravenous injection of 4.0 mCi Tc-99m MAA, the lungs were imaged in the anterior and posterior, left and right lateral and ALLEN, BENJAMIN, LPO, and RPO projections using a gamma scintillation camera. FINDINGS: No segmental perfusion defects are present. There is homogeneous distribution of activity bilaterally. There are no focal anatomic appearing perfusion defects present. NM/NM pul perfusion IMPRESSION: Normal radionuclide lung perfusion scan.
--- NOTE | ~2021-10-04 | US_ITS ---
EXAMINATION: US VENOUS ULTRASOUND WITH DOPPLER LOWER EXTREMITY, BILATERAL CLINICAL INFORMATION: Bilateral lower extremity swelling. COMPARISON: None TECHNIQUE: Ultrasound of the deep veins is performed from the hip to the calf with compression sonography and color and pulse Doppler assessment. Spectral analysis with color-flow imaging is performed. There is limitation the study secondary to patient body habitus. FINDINGS: RIGHT: There is normal venous compression and respiratory variation and augmented flow. The visualized common femoral vein, superficial femoral vein, profunda femoral vein, popliteal vein, and the trifurcation region shows no evidence of deep venous thrombosis. There is no significant popliteal fossa cyst. LEFT: There is normal venous compression and respiratory variation and augmented flow. The visualized common femoral vein, superficial femoral vein, profunda femoral vein, popliteal vein, and the trifurcation region shows no evidence of deep venous thrombosis. There is no significant popliteal fossa cyst. If the patient's symptoms persist, followup ultrasound in 5 days 7 days might be of value to exclude proximal propagation from a non-visualized calf vein. US/US venous duplex LE BI IMPRESSION: Limited study with no evidence for deep venous thrombosis bilaterally.
--- NOTE | ~2021-10-04 | CT_ITS ---
EXAMINATION: CT ABDOMEN AND PELVIS WITHOUT CONTRAST CLINICAL INFORMATION: Hematuria. Pain COMPARISON: 09/07/2021 TECHNIQUE: Multidetector volumetric imaging was performed from the superior aspect of the liver through the pubic symphysis. Sagittal and coronal reformatted images were obtained on the technologist's workstation. This CT examination was performed using dose optimization techniques as appropriate, variously including the following: *Automated exposure control *Adjustment of mA and/or kV according to patient size (this includes techniques or standardized protocols for targeted exams where dose is matched to indication/reason for exam; i.e. extremities or head) *Use of iterative reconstruction technique DLP: 1858 mGy-cm FINDINGS: LUNG BASES: Increased markings and groundglass opacities within the visualized lung bases. LIVER, GALLBLADDER, AND BILIARY TREE: The liver is normal in size, shape, and attenuation. No focal hepatic lesion or biliary ductal dilatation is present. The gallbladder is unremarkable with no evidence of radiopaque gallstones, gallbladder wall thickening, or obvious pericholecystic inflammatory changes. PANCREAS: Unremarkable. SPLEEN: Incidental splenule. ADRENAL GLANDS: Unremarkable. KIDNEYS AND URETERS: Interval removal of right-sided ureteral stent. No hydronephrosis. Renal cortical cyst again noted. No measurable stones. No left-sided abnormality. Nonspecific minor perinephric stranding. No fluid collection. BLADDER: Decompressed but grossly normal. GASTROINTESTINAL TRACT: The small and large bowel are unremarkable. The appendix is unremarkable. ABDOMINAL WALL: Notable eventration anterior abdominal wall without a discrete hernia defect. LYMPH NODES: No pathologic enlargement. VASCULAR: Unremarkable. PELVIC VISCERA: Unremarkable. OSSEOUS STRUCTURES: Unremarkable. CT/CT abdomen pelvis wo IV con IMPRESSION: Interval removal of right-sided dual pigtail ureteral stent. No hydronephrosis or stones measurable. Fleischner guidelines were followed.
--- NOTE | ~2021-10-04 | XR_ITS ---
EXAMINATION: XR CHEST CLINICAL INFORMATION: Shortness of breath COMPARISON: 09/07/2021 TECHNIQUE: Frontal view of the chest was obtained. FINDINGS: Lung volumes are symmetric. Redemonstrated bilateral interstitial prominence, similar to prior. No new acute consolidation is seen. No evidence of pneumothorax or significant pleural effusion. Enlarged cardiac silhouette is similar to prior. No acute osseous findings are seen. XR/XR chest 1V IMPRESSION: Redemonstrated bilateral interstitial prominence suggesting a degree of vascular congestion, similar to 09/07/2021.
[2021-10-04 21:12] VITALS: BP 160/70; PULSE 88; O2SAT 95
[2021-10-04 21:18] VITALS: PULSE 101; TEMP 36.7; O2SAT 93; BMI 54.9
[2021-10-04 21:20] VITALS: O2SAT 99
--- NOTE | 2021-10-04 21:28 | ED_ITS ---
HPI - Abdominal Pain General Chief Complaint: Abdominal Pain Stated Complaint: abd pain Time Seen by Provider: 10/04/21 21:27 Source: patient Mode of arrival: EMS History of Present Illness HPI narrative: 51F with history of diabetes, hypertension, asthma as well as COPD who presents with complaints abdominal pain with associated chills and nausea and occasional vomiting but denies any diarrhea. She also reports that she has had urinary pain and burning and was treated last month for a kidney stone as well as a urinary tract infection. Otherwise, she denies shortness of breath, chest pain/palpitations and also has complaints increasing swelling in bilateral lower extremities. Related Data Home Medications Medication Instructions Recorded Confirmed albuterol sulfate 90 mcg/actuation 2 puff PO Q4H PRN 08/13/21 09/07/21 aerosol inhaler (ProAir HFA) aspirin 81 mg tablet,delayed 1 tab PO DAILY 08/13/21 09/07/21 release atorvastatin 80 mg tablet 1 tab PO BEDTIME 08/13/21 09/07/21 buprenorphine 8 mg-naloxone 2 mg 1 strip SUBLINGUAL TID 08/13/21 09/07/21 sublingual film (Suboxone) clonazepam 0.5 mg tablet 1 tab PO DAILY PRN 08/13/21 09/07/21 fluoxetine 20 mg capsule 3 cap PO DAILY 08/13/21 09/07/21 gabapentin 600 mg tablet 1 tab PO TID 08/13/21 09/07/21 ibuprofen 800 mg tablet 1 tab PO TID PRN 08/13/21 09/07/21 insulin glargine 100 unit/mL (3 54 unit SUBCUT BID 08/13/21 09/07/21 mL) subcutaneous pen (Lantus Solostar U-100 Insulin) insulin lispro 100 unit/mL 15 unit SUBCUT DAILY@1200 08/13/21 09/07/21 subcutaneous pen (Humalog KwikPen (U-100) Insulin) insulin lispro 100 unit/mL 22 unit SUBCUT DAILY@0900,1700 08/13/21 09/07/21 subcutaneous pen (Humalog KwikPen (U-100) Insulin) levothyroxine 200 mcg tablet 1 tab PO DAILY@0630 08/13/21 09/07/21 loratadine 10 mg tablet 1 tab PO DAILY 08/13/21 09/07/21 omeprazole 20 mg capsule,delayed 1 cap PO BID@0630,1630 08/13/21 09/07/21 release trazodone 100 mg tablet 1 - 3 tab PO BEDTIME PRN 08/13/21 09/07/21 blood sugar diagnostic (FreeStyle #10 ea 09/21/21 Lite Strips) cefuroxime axetil 500 mg tablet 500 mg PO BID 09/21/21 gabapentin 300 mg capsule 300 mg PO TID 09/21/21 levofloxacin 500 mg tablet 500 mg PO DAILY 09/21/21 lisinopril 20 1 tab PO DAILY 09/21/21 mg-hydrochlorothiazide 25 mg tablet pen needle, diabetic 31 gauge x #1200 ea 09/21/21/ (UltiCare Pen Needle) Previous Rx's Medication Instructions Recorded amlodipine 5 mg tablet (Norvasc) 5 mg PO DAILY 30 Days #30 tab 09/09/21 hydrochlorothiazide 25 mg tablet 25 mg PO DAILY 30 Days #30 tab 09/09/21 prednisone 10 mg tablet See Taper PO DAILY #38 tab 09/09/21 Allergies Allergy/AdvReac Type Severity Reaction Status Date / Time canagliflozin [From Invokana] Allergy Rash Verified 09/21/21 13:54 latex Allergy Itching Verified 09/21/21 13:54 Penicillins Allergy Rash Verified 09/21/21 13:54 sitagliptin [From Januvia] Allergy Rash Verified 09/21/21 13:54 Review of Systems Review of Systems Pertinent positives and negatives as stated in HPI 10 point review of systems is otherwise negative. [facility] Past Medical History Source: nursing notes reviewed Medical History Choledocholithiasis High cholesterol HTN (hypertension) Hydroureteronephrosis Kidney stones Surgical History No pertinent past surgical history Family History Family History Mother Coronary artery disease Diabetes Social History Social History Household Members: Spouse Housing: Apartment Do you presently have visiting nurse or other home services: No Alcohol intake: former Patient Tobacco Use Status: Current someday Tobacco user Tobacco use type: Cigarette Cigarettes Per Day: 1 Second Hand Smoke Exposure: Yes Substance Use Type: Crack/Cocaine Advance Directives: No service: No Current occupational status: unemployed Physical Exam ED Vital Signs: Vital Signs - 24 hr 10/04/21 21:18 10/04/21 21:20 10/04/21 22:05 Temperature 98.1 F Pulse Rate 101 H Respiratory Rate Blood Pressure Pulse Oximetry 93 99 81 L 10/04/21 22:26 10/04/21 23:12 10/05/21 00:05 Temperature Pulse Rate 85 83 Respiratory Rate 19 14 Blood Pressure 113/72 Pulse Oximetry 89 L 10/05/21 00:16 10/05/21 00:17 10/05/21 00:21 Temperature Pulse Rate 80 80 Respiratory Rate 18 Blood Pressure 111/71 113/72 Pulse Oximetry 98 97 BMI result Body Mass Index 54.9 VITAL SIGNS: Reviewed. GENERAL: Chronically ill, elevated BMI, in no acute distress. HEAD: Normocephalic/atraumatic EYES: PERRLA, EOMI EARS: Ext canals without abnormality OROPHARYNX: no oral lesions noted, posterior pharynx clear LUNGS: Bibasilar decrease in breath sounds, no tachypnea, No adventitious sounds or accessory muscle use. SpO2<93> CARDIOVASCULAR: Regular rate and rhythm without noted murmurs, no JVD but bilateral lower 1+ pitting edema ABDOMEN: Soft, tenderness at left pannus without rebound and no appreciation of superficial erythema/induration to suggest a cellulitis, non-distended with bowel sounds. MUSCULOSKELETAL: No tenderness, deformities, or effusions noted on gross inspection. EXTREMITIES: No cyanosis, clubbing but lower bilateral edema with chronic skin changes consistent with venous stasis SKIN: Inspection of the skin reveals no rashes NEUROLOGIC: Alert and oriented x 4. Strength and sensation to light touch were grossly intact x 4. Course Course Course Narrative: 51-year-old female with multiple comorbidities and history and clinical presentation suggestive of similar presentation as 09/07 but will begin with basic labs, urinalysis and evaluation for fluid overload. 0118: Review of all investigations with findings consistent with pyelonephritis. Lactic acid/blood cultures ordered and patient provided with Rocephin. I discussed the case with inpatient hospitalist who accepts admission. Reevaluation(s) Reevaluation #1: CT scans with IV contrast are currently being limited to more acute presentations such as PE, stroke, dissection, trauma. Time: 23:21 MDM - Abdominal Pain Lab Data Result diagrams: 10/04/21 22:20 10/04/21 22:20 Labs: Lab Results 10/04/21 10/04/21 10/04/21 Range/Units 22:02 22:02 22:03 WBC (4.8-10.8) X10*3/uL RBC (4.20-5.50) X10*6/uL Hgb (12.0-16.0) g/dl Hct (37.0-47.0) % MCV (80.0-98.0) fL MCH (27.0-33.0) pg MCHC (31.0-35.0) g/dl RDW (11.0-16.0) % Plt Count (160-400) X10*3/uL MPV (9.4-12.3) fL Immature Gran % (Auto) (0.0-0.4) % Neut % (Auto) (45-73) % Lymph % (Auto) (20-40) % [place] % (Auto) (2-11) % Eos % (Auto) (0-4) % Baso % (Auto) (0-2) % Lymph # (Auto) (1.2-4.9) X10*3/uL [place] # (Auto) (0.1-1.2) X10*3/uL Eos # (Auto) (0.0-0.4) X10*3/uL Baso # (Auto) (0.0-0.2) X10*3/uL Abs Immat Gran (auto) (0.00-0.03) X10*3/uL Absolute Neuts (auto) (2.0-8.3) x10*3/uL Absolute Nucleated RBC (0.0-0.012) X10*3/uL Nucleated RBC % (auto) (0.0-0.2) /100WBC PT (9.9-13.0) SEC INR (0.9-1.1) VBG pH (7.32-7.43) VBG pCO2 mmHg VBG pO2 mmHg VBG HCO3 (22-26) mmol/L VBG O2 Saturation % VBG Base Excess mmol/L Sodium (135-145) mmol/L Potassium (3.3-5.1) mmol/L Chloride (96-108) mmol/L Carbon Dioxide (22-29) mmol/L Anion Gap (12-20) BUN (9-16) mg/dL Creatinine (0.5-1.4) mg/dL Estim Creat Clear Calc Estimated GFR Random Glucose (60-115) mg/dL Calcium (8.4-10.2) mg/dL Total Bilirubin (0.0-1.0) mg/dL AST (5-31) U/L ALT (0-31) U/L Alkaline Phosphatase (39-117) U/L B-Natriuretic Peptide (<100) pg/mL Total Protein (6.5-8.0) g/dL Albumin (3.5-5.0) g/dL Urine Color BROWN A Urine Appearance CLOUDY Urine pH 7.5 (5.0-8.0) Ur Specific [place] 1.020 (1.005-1.025) Urine Protein 3+ H (NEG-TRACE) MG/DL Urine Glucose (UA) NEG (NEG) MG/DL Urine Ketones NEG (NEG) MG/DL Urine Blood 3+ H (NEG) Urine Nitrite POS H (NEG) Ur Leukocyte Esterase 2+ H (NEG) Urine RBC TNTC H (0) /HPF Urine WBC 1-4 (0-4) /HPF Ur Squamous Epith Cells 2+ /LPF Urine Bacteria 3+ /LPF Acetone, Qual (Negative) COVID-19 ([facility]) Negative (Negative) COVID-19 Clin Com See Note Influenza Type A ([facility]) Negative (Negative) Influenza Type B ([facility]) Negative (Negative) Influenza A & B Note See Note 10/04/21 10/04/21 10/04/21 Range/Units 22:20 22:20 22:20 WBC 7.3 (4.8-10.8) X10*3/uL RBC 3.15 L (4.20-5.50) X10*6/uL Hgb 8.7 L (12.0-16.0) g/dl Hct 28.8 L (37.0-47.0) % MCV 91.4 (80.0-98.0) fL MCH 27.6 (27.0-33.0) pg MCHC 30.2 L (31.0-35.0) g/dl RDW 15.8 (11.0-16.0) % Plt Count 190 (160-400) X10*3/uL MPV 10.6 (9.4-12.3) fL Immature Gran % (Auto) 0.3 (0.0-0.4) % Neut % (Auto) 63.3 (45-73) % Lymph % (Auto) 25.2 (20-40) % [place] % (Auto) 7.9 (2-11) % Eos % (Auto) 3.2 (0-4) % Baso % (Auto) 0.1 (0-2) % Lymph # (Auto) 1.8 (1.2-4.9) X10*3/uL [place] # (Auto) 0.6 (0.1-1.2) X10*3/uL Eos # (Auto) 0.2 (0.0-0.4) X10*3/uL Baso # (Auto) 0.0 (0.0-0.2) X10*3/uL Abs Immat Gran (auto) 0.02 (0.00-0.03) X10*3/uL Absolute Neuts (auto) 4.6 (2.0-8.3) x10*3/uL Absolute Nucleated RBC 0.000 (0.0-0.012) X10*3/uL Nucleated RBC % (auto) 0.0 (0.0-0.2) /100WBC PT 11.0 (9.9-13.0) SEC INR 1.0 (0.9-1.1) VBG pH (7.32-7.43) VBG pCO2 mmHg VBG pO2 mmHg VBG HCO3 (22-26) mmol/L VBG O2 Saturation % VBG Base Excess mmol/L Sodium 140 (135-145) mmol/L Potassium 4.2 (3.3-5.1) mmol/L Chloride 108 (96-108) mmol/L Carbon Dioxide 25 (22-29) mmol/L Anion Gap 11 L (12-20) BUN 20 H (9-16) mg/dL Creatinine 1.35 (0.5-1.4) mg/dL Estim Creat Clear Calc 71.5 Estimated GFR 42 Random Glucose 179 H (60-115) mg/dL Calcium 8.4 (8.4-10.2) mg/dL Total Bilirubin 0.5 (0.0-1.0) mg/dL AST 14 (5-31) U/L ALT 8 (0-31) U/L Alkaline Phosphatase 171 H D (39-117) U/L B-Natriuretic Peptide (<100) pg/mL Total Protein 6.7 (6.5-8.0) g/dL Albumin 2.9 L (3.5-5.0) g/dL Urine Color Urine Appearance Urine pH (5.0-8.0) Ur Specific [place] (1.005-1.025) Urine Protein (NEG-TRACE) MG/DL Urine Glucose (UA) (NEG) MG/DL Urine Ketones (NEG) MG/DL Urine Blood (NEG) Urine Nitrite (NEG) Ur Leukocyte Esterase (NEG) Urine RBC (0) /HPF Urine WBC (0-4) /HPF Ur Squamous Epith Cells /LPF Urine Bacteria /LPF Acetone, Qual Negative (Negative) COVID-19 ([facility]) (Negative) COVID-19 Clin Com Influenza Type A ([facility]) (Negative) Influenza Type B ([facility]) (Negative) Influenza A & B Note 10/04/21 10/04/21 Range/Units 22:20 23:16 WBC (4.8-10.8) X10*3/uL RBC (4.20-5.50) X10*6/uL Hgb (12.0-16.0) g/dl Hct (37.0-47.0) % MCV (80.0-98.0) fL MCH (27.0-33.0) pg MCHC (31.0-35.0) g/dl RDW (11.0-16.0) % Plt Count (160-400) X10*3/uL MPV (9.4-12.3) fL Immature Gran % (Auto) (0.0-0.4) % Neut % (Auto) (45-73) % Lymph % (Auto) (20-40) % [place] % (Auto) (2-11) % Eos % (Auto) (0-4) % Baso % (Auto) (0-2) % Lymph # (Auto) (1.2-4.9) X10*3/uL [place] # (Auto) (0.1-1.2) X10*3/uL Eos # (Auto) (0.0-0.4) X10*3/uL Baso # (Auto) (0.0-0.2) X10*3/uL Abs Immat Gran (auto) (0.00-0.03) X10*3/uL Absolute Neuts (auto) (2.0-8.3) x10*3/uL Absolute Nucleated RBC (0.0-0.012) X10*3/uL Nucleated RBC % (auto) (0.0-0.2) /100WBC PT (9.9-13.0) SEC INR (0.9-1.1) VBG pH 7.39 (7.32-7.43) VBG pCO2 36 mmHg VBG pO2 201 mmHg VBG HCO3 22 (22-26) mmol/L VBG O2 Saturation 100.0 % VBG Base Excess -2.0 mmol/L Sodium (135-145) mmol/L Potassium (3.3-5.1) mmol/L Chloride (96-108) mmol/L Carbon Dioxide (22-29) mmol/L Anion Gap (12-20) BUN (9-16) mg/dL Creatinine (0.5-1.4) mg/dL Estim Creat Clear Calc Estimated GFR Random Glucose (60-115) mg/dL Calcium (8.4-10.2) mg/dL Total Bilirubin (0.0-1.0) mg/dL AST (5-31) U/L ALT (0-31) U/L Alkaline Phosphatase (39-117) U/L B-Natriuretic Peptide 28 (<100) pg/mL Total Protein (6.5-8.0) g/dL Albumin (3.5-5.0) g/dL Urine Color Urine Appearance Urine pH (5.0-8.0) Ur Specific [place] (1.005-1.025) Urine Protein (NEG-TRACE) MG/DL Urine Glucose (UA) (NEG) MG/DL Urine Ketones (NEG) MG/DL Urine Blood (NEG) Urine Nitrite (NEG) Ur Leukocyte Esterase (NEG) Urine RBC (0) /HPF Urine WBC (0-4) /HPF Ur Squamous Epith Cells /LPF Urine Bacteria /LPF Acetone, Qual (Negative) COVID-19 ([facility]) (Negative) COVID-19 Clin Com Influenza Type A ([facility]) (Negative) Influenza Type B ([facility]) (Negative) Influenza A & B Note Discharge Plan Discharge Clinical Impression: Pyelonephritis, Morbid obesity, DMII (diabetes mellitus, type 2) Patient Disposition: Admitted As Inpatient Prescriptions: No Action prednisone 10 mg tablet See Taper mg PO DAILY Qty: 38 0RF Taper: Prednisone 40 mg daily for 5 Days and 0 Hour 30 mg daily for 3 Days and 0 Hour 20 mg daily for 3 Days and 0 Hour 10 mg daily for 3 Days and 0 Hour hydrochlorothiazide 25 mg tablet 25 mg PO DAILY 30 Days Qty: 30 0RF amlodipine [Norvasc] 5 mg tablet 5 mg PO DAILY 30 Days Qty: 30 0RF atorvastatin 80 mg tablet 1 tab PO BEDTIME 0RF gabapentin 600 mg tablet 1 tab PO TID 0RF ibuprofen 800 mg tablet 1 tab PO TID PRN (Reason: pain) 0RF clonazepam 0.5 mg tablet 1 tab PO DAILY PRN (Reason: Anxiety) 0RF aspirin 81 mg tablet,delayed release (DR/EC) 1 tab PO DAILY 0RF trazodone 100 mg tablet 1 - 3 tab PO BEDTIME PRN (Reason: Insomnia) 0RF omeprazole 20 mg capsule,delayed release(DR/EC) 1 cap PO BID@0630,1630 0RF levothyroxine 200 mcg tablet 1 tab PO DAILY@0630 0RF albuterol sulfate [ProAir HFA] 90 mcg/actuation HFA aerosol inhaler 2 puff PO Q4H PRN (Reason: wheezing) 0RF fluoxetine 20 mg capsule 3 cap PO DAILY 0RF insulin lispro [Humalog KwikPen Insulin] 100 unit/mL insulin pen 15 unit subcut DAILY@1200 0RF Rx Instructions: with lunch insulin lispro [Humalog KwikPen Insulin] 100 unit/mL insulin pen 22 unit subcut DAILY@0900,1700 0RF Rx Instructions: give with food Lantus Solostar U-100 Insulin 100 unit/mL (3 mL) insulin pen 54 unit subcut BID 0RF buprenorphine-naloxone [Suboxone] 8-2 mg film 1 strip sublingual TID 0RF loratadine 10 mg tablet 1 tab PO DAILY 0RF lisinopril-hydrochlorothiazide 20-25 mg tablet 1 tab PO DAILY 0RF levofloxacin 500 mg tablet 500 mg PO DAILY 0RF cefuroxime axetil 500 mg tablet 500 mg PO BID 0RF (DME) pen needle, diabetic [UltiCare Pen Needle] 31 gauge x 5/16 needle See Rx Instructions ea subcut .MEDSUPPLY Qty: 1200 0RF Rx Instructions: As directed (DME) FreeStyle Lite Strips Strip See Rx Instructions ea Not Applicable QID Qty: 10 0RF Rx Instructions: As directed gabapentin 300 mg capsule 300 mg PO TID 0RF
[2021-10-04 22:05] VITALS: O2SAT 81
[2021-10-04 22:08] LABS: Appearance Urine CLOUDY; Color Urine BROWN; Glucose Urine UA NEG (NEG); Leukocyte Esterase Urine 2+ (NEG); Nitrite Urine POS (NEG); PH 7.5 (5.0-8.0); UACC Culture Trigger YES; Urine Blood 3+ (NEG); Urine Ketones NEG (NEG); Urine Protein 3+ MG/DL (NEG-TRACE)
[2021-10-04 22:16] LABS: RBC Urine TNTC /HPF (0); Squamous Epithelial Cell Urine 2+ /LPF
[2021-10-04 22:17] LABS: Bacteria Urine 3+ /LPF
[2021-10-04 22:24] LABS: MANUAL DIFF FLAG NO
[2021-10-04 22:24] LABS: COVID-19 Test Negative (Negative); IDNOW Serial# 08D9AD1C; Influenza A Negative (Negative); Influenza B2 Negative (Negative)
[2021-10-04 22:26] VITALS: PULSE 85; RESP 19; O2SAT 89; O2SAT 90
[2021-10-04 22:26] LABS: Basophils Percent Auto 0.1 % (0-2); Eosinophils Absolute Auto 0.2 X10*3/uL (0.0-0.4); Eosinophils Percent Auto 3.2 % (0-4); Hematocrit 28.8 % (37.0-47.0); Hemoglobin 8.7 g/dl (12.0-16.0); Imm Gran Abs Auto 0.02 X10*3/uL (0.00-0.03); Imm Gran Pct Auto 0.3 % (0.0-0.4); Lymphocytes Absolute Auto 1.8 X10*3/uL (1.2-4.9); Lymphocytes Percent Auto 25.2 % (20-40); Mean Corpuscular HGB Conc 30.2 g/dl (31.0-35.0); Mean Corpuscular Hemoglobin 27.6 pg (27.0-33.0); Mean Corpuscular Volume 91.4 fL (80.0-98.0); Mean Platelet Volume 10.6 fL (9.4-12.3); Monocytes Absolute Auto 0.6 X10*3/uL (0.1-1.2); Monocytes Percent Auto 7.9 % (2-11); Neutrophils Absolute Auto 4.6 x10*3/uL (2.0-8.3); Neutrophils Percent Auto 63.3 % (45-73); Platelet Count 190 X10*3/uL (160-400); Red Blood Count 3.15 X10*6/uL (4.20-5.50); Red Cell Distribution Width 15.8 % (11.0-16.0); White Blood Count 7.3 X10*3/uL (4.8-10.8)
[2021-10-04 22:43] LABS: Acetone, serum QL Negative (Negative)
[2021-10-04 22:50] LABS: B Type Natriuretic Peptide 28 pg/mL (<100)
[2021-10-04 22:51] LABS: Alanine Aminotransferase 8 U/L (0-31); Albumin Level 2.9 g/dL (3.5-5.0); Alkaline Phosphatase 171 U/L (39-117); Anion Gap 11 (12-20); Aspartate Amino Transferase 14 U/L (5-31); Bilirubin Total 0.5 mg/dL (0.0-1.0); Blood Urea Nitrogen 20 mg/dL (9-16); Calcium 8.4 mg/dL (8.4-10.2); Carbon Dioxide 25 mmol/L (22-29); Chloride 108 mmol/L (96-108); Creatinine Clr Calc Pharmacy 71.5; Estimated Glomerular Filt Rate 42; Glucose Random 179 mg/dL (60-115); Potassium 4.2 mmol/L (3.3-5.1); Sodium 140 mmol/L (135-145); Total Protein 6.7 g/dL (6.5-8.0)
[2021-10-04] MEDS: Albuterol Sulfate (0.083%) 2.5 MG/3 ML VIAL.NEB 5 MG INHALE (23:11)
[2021-10-04 23:12] VITALS: PULSE 83; RESP 14; O2SAT 97
[2021-10-04 23:24] LABS: Venous Blood Gas Refer to POC result
[2021-10-04 23:25] LABS: VBG HCO3 22 mmol/L (22-26); VBG pCO2 36 mmHg; VBG pH 7.39 (7.32-7.43); VBG pO2 201 mmHg
[2021-10-05] VITALS (10 sets, daily range): BP systolic 111–179; BP diastolic 62–83; PULSE 73–88; RESP 16–20; TEMP 36.2–36.7; O2SAT 95–100
[2021-10-05 01:24] LABS: Lactic Acid 0.7 mmol/L (0.5-2.0)
[2021-10-05] MEDS: 0.9 % Sodium Chloride 1,000 ML 999 ML IV (01:26)
[2021-10-05] MEDS: cefTRIAXone sodium 1 GM in 0.9 % Sodium Chloride 50 ML IV ×2 (02:01→21:33)
--- NOTE | 2021-10-05 02:01 | P.HPHOSP_ITS ---
History of Present Illness Date of Service: 10/05/21 Chief Complaint: abd pain This is a 51-year-old female with past medical history of hyperlipidemia, HTN, hydroureteronephrosis, diabetes, morbid obesity, history of kidney stones who presents to the hospital with complaints of suprapubic tenderness. Patient rep orts that her symptoms started 2 days prior, she is also complaining of dysuria, frequency, and urgency. She has some chills with no fever. She is complaining of lower extremity swelling with minimal dyspnea. Patient reports no chest pain, no abdominal pain nausea or vomiting, no diarrhea or constipation, no numbness tingling or weakness. Patient reports that she lives [facility] and is mostly sedentary. On arrival to the ED patient was found to be hypoxic satting 81% on room air, with a heart rate of 101, respiratory rate of 20, and temperature of 98.1 degrees. Patient currently on 3 L satting 98%. Labs are significant for WBC count of 7.3, hemoglobin of 8.7, which dropped from 9.3, hematocrit of 28.3, potassium of 4.2, BUN of 20, creatinine of 1.35, UA that is positive for urine blood, nitrites, leukocyte Estrace, WBC, and urine RBC, Abdomen pelvic CT shows interval removal of right-sided dual pigtail ureteral stent, no hydronephrosis or stone Patient will be admitted for further management Review of Systems Review of Systems: Yes all other systems are reviewed and are negative [facility] Medical History Choledocholithiasis High cholesterol HTN (hypertension) Hydroureteronephrosis Kidney stones Family History Mother Coronary artery disease Diabetes Surgical History No pertinent past surgical history Social History Household Members: Spouse Housing: Apartment Do you presently have visiting nurse or other home services: No Alcohol intake: former Patient Tobacco Use Status: Current someday Tobacco user Tobacco use type: Cigarette Cigarettes Per Day: 1 Second Hand Smoke Exposure: Yes Substance Use Type: Crack/Cocaine Advance Directives: No service: No Current occupational status: unemployed Meds Allergies Allergy/AdvReac Type Severity Reaction Status Date / Time canagliflozin [From Invokana] Allergy Rash Verified 09/21/21 13:54 latex Allergy Itching Verified 09/21/21 13:54 Penicillins Allergy Rash Verified 09/21/21 13:54 sitagliptin [From Januvia] Allergy Rash Verified 09/21/21 13:54 Active Medications: Current Medications Sodium Chloride (Ns) 1,000 mls @ 999 mls/hr IV .Q1H1M MITCHELL Stop: 10/05/21 02:15 Last Admin: 10/05/21 01:26 Dose: 999 mls/hr Documented by: Home Medications Medication Instructions Recorded Confirmed Last Taken Type albuterol sulfate 90 mcg/actuation 2 puff PO Q4H PRN 08/13/21 09/07/21 08/12/21 History aerosol inhaler (ProAir HFA) aspirin 81 mg tablet,delayed 1 tab PO DAILY 08/13/21 09/07/21 09/06/21 History release atorvastatin 80 mg tablet 1 tab PO BEDTIME 08/13/21 09/07/21 09/06/21 History buprenorphine 8 mg-naloxone 2 mg 1 strip SUBLINGUAL TID 08/13/21 09/07/21 09/06/21 History sublingual film (Suboxone) clonazepam 0.5 mg tablet 1 tab PO DAILY PRN 08/13/21 09/07/21 09/06/21 History fluoxetine 20 mg capsule 3 cap PO DAILY 08/13/21 09/07/21 09/06/21 History gabapentin 600 mg tablet 1 tab PO TID 08/13/21 09/07/21 09/06/21 History ibuprofen 800 mg tablet 1 tab PO TID PRN 08/13/21 09/07/21 09/06/21 History insulin glargine 100 unit/mL (3 54 unit SUBCUT BID 08/13/21 09/07/21 09/06/21 History mL) subcutaneous pen (Lantus Solostar U-100 Insulin) insulin lispro 100 unit/mL 15 unit SUBCUT DAILY@1200 08/13/21 09/07/21 09/06/21 History subcutaneous pen (Humalog KwikPen (U-100) Insulin) insulin lispro 100 unit/mL 22 unit SUBCUT DAILY@0900,1700 03/05/2509/07/21 09/06/21 History subcutaneous pen (Humalog KwikPen (U-100) Insulin) levothyroxine 200 mcg tablet 1 tab PO DAILY@0630 08/13/21 09/07/21 09/06/21 History loratadine 10 mg tablet 1 tab PO DAILY 08/13/21 09/07/21 09/06/21 History omeprazole 20 mg capsule,delayed 1 cap PO BID@0630,1630 08/13/21 09/07/21 09/06/21 History release trazodone 100 mg tablet 1 - 3 tab PO BEDTIME PRN 08/13/21 09/07/21 09/06/21 History blood sugar diagnostic (FreeStyle #10 ea 09/21/21 Unknown History Lite Strips) pen needle, diabetic 31 gauge x #1200 ea 09/21/21 Unknown History 10/17 (UltiCare Pen Needle) Physical Exam Vital Signs and Narrative: Vital Signs: Last Vital Signs Temp 98.1 F 10/04/21 21:18 Pulse 80 10/05/21 00:21 Resp 18 10/05/21 00:21 BP 113/72 10/05/21 00:21 Pulse Ox 97 10/05/21 00:21 BMI result Body Mass Index 54.9 Const: Other: Obese General: cooperative and no acute distress Orientation/consciousness: patient oriented x3 Eyes: General: appearance normal, both eyes and all related structures Pupils: Equal, round and reactive pupils present Resp: Effort & Inspection: normal respiratory effort Auscultation: clear to auscultation bilaterally Cardio: Rate: regular rate Rhythm: regular rhythm GI: Other: Obese abdomen, nontender, no rebound or guarding Palpation (GI): Soft to palpation Auscultation: normal bowel sounds Skin: Other: Bilateral erythema in lower extremities, no warmth, General skin exam: no rashes or lesions noted Neuro: General: patient oriented x3 Cranial nerves: Yes Equal, round and reactive pupils present Cognition (Neuro): normal cognition Extrem: Other: Bilateral nonpitting edema General: Yes normal to inspection Results Labs CBC and Chem 7: 10/04/21 22:20 10/04/21 22:20 Labs: Laboratory Results - last 24 hr 10/04/21 10/04/21 10/04/21 22:02 22:02 22:03 MCV MCH MCHC RDW Plt Count MPV Immature Gran % (Auto) Neut % (Auto) Lymph % (Auto) [place] % (Auto) Eos % (Auto) Baso % (Auto) Lymph # (Auto) [place] # (Auto) Eos # (Auto) Baso # (Auto) Abs Immat Gran (auto) Absolute Neuts (auto) Absolute Nucleated RBC Nucleated RBC % (auto) PT INR VBG pH VBG pCO2 VBG pO2 VBG HCO3 VBG O2 Saturation VBG Base Excess Anion Gap Estim Creat Clear Calc Estimated GFR Random Glucose Lactic Acid Calcium Total Bilirubin AST ALT Alkaline Phosphatase B-Natriuretic Peptide Total Protein Albumin Urine Color BROWN A Urine Appearance CLOUDY Urine pH 7.5 Ur Specific [place] 1.020 Urine Protein 3+ H Urine Glucose (UA) NEG Urine Ketones NEG Urine Blood 3+ H Urine Nitrite POS H Ur Leukocyte Esterase 2+ H Urine RBC TNTC H Urine WBC 1-4 Ur Squamous Epith Cells 2+ Urine Bacteria 3+ Acetone, Qual COVID-19 (AMRIK) Negative COVID-19 Clin Com See Note Influenza Type A (JEFFERSON) Negative Influenza Type B (JEFFERSON) Negative Influenza A & B Note See Note 10/04/21 10/04/21 10/04/21 22:20 22:20 22:20 MCV 91.4 MCH 27.6 MCHC 30.2 L RDW 15.8 Plt Count 190 MPV 10.6 Immature Gran % (Auto) 0.3 Neut % (Auto) 63.3 Lymph % (Auto) 25.2 [place] % (Auto) 7.9 Eos % (Auto) 3.2 Baso % (Auto) 0.1 Lymph # (Auto) 1.8 [place] # (Auto) 0.6 Eos # (Auto) 0.2 Baso # (Auto) 0.0 Abs Immat Gran (auto) 0.02 Absolute Neuts (auto) 4.6 Absolute Nucleated RBC 0.000 Nucleated RBC % (auto) 0.0 PT 11.0 INR 1.0 VBG pH VBG pCO2 VBG pO2 VBG HCO3 VBG O2 Saturation VBG Base Excess Anion Gap 11 L Estim Creat Clear Calc 71.5 Estimated GFR 42 Random Glucose 179 H Lactic Acid Calcium 8.4 Total Bilirubin 0.5 AST 14 ALT 8 Alkaline Phosphatase 171 H D B-Natriuretic Peptide Total Protein 6.7 Albumin 2.9 L Urine Color Urine Appearance Urine pH Ur Specific [place] Urine Protein Urine Glucose (UA) Urine Ketones Urine Blood Urine Nitrite Ur Leukocyte Esterase Urine RBC Urine WBC Ur Squamous Epith Cells Urine Bacteria Acetone, Qual Negative COVID-19 (AMRIK) COVID-19 Clin Com Influenza Type A (JEFFERSON) Influenza Type B (JEFFERSON) Influenza A & B Note 10/04/21 10/04/21 10/05/21 22:20 23:16 01:07 MCV MCH MCHC RDW Plt Count MPV Immature Gran % (Auto) Neut % (Auto) Lymph % (Auto) [place] % (Auto) Eos % (Auto) Baso % (Auto) Lymph # (Auto) [place] # (Auto) Eos # (Auto) Baso # (Auto) Abs Immat Gran (auto) Absolute Neuts (auto) Absolute Nucleated RBC Nucleated RBC % (auto) PT INR VBG pH 7.39 VBG pCO2 36 VBG pO2 201 VBG HCO3 22 VBG O2 Saturation 100.0 VBG Base Excess -2.0 Anion Gap Estim Creat Clear Calc Estimated GFR Random Glucose Lactic Acid 0.7 Calcium Total Bilirubin AST ALT Alkaline Phosphatase B-Natriuretic Peptide 28 Total Protein Albumin Urine Color Urine Appearance Urine pH Ur Specific [place] Urine Protein Urine Glucose (UA) Urine Ketones Urine Blood Urine Nitrite Ur Leukocyte Esterase Urine RBC Urine WBC Ur Squamous Epith Cells Urine Bacteria Acetone, Qual COVID-19 (AMRIK) COVID-19 Clin Com Influenza Type A (JEFFERSON) Influenza Type B (JEFFERSON) Influenza A & B Note Imaging Radiologist's Impressions: Impressions Chest X-Ray 10/04/21 23:34 IMPRESSION: Redemonstrated bilateral interstitial prominence suggesting a degree of vascular congestion, similar to 09/07/2021. Abdomen/Pelvis CT 10/05/21 00:00 IMPRESSION: Interval removal of right-sided dual pigtail ureteral stent. No hydronephrosis or stones measurable. Fleischner guidelines were followed. Assessment and Plan (1) Acute respiratory failure with hypoxia: Status: Acute (2) UTI (urinary tract infection): Status: Acute (3) Lower extremity edema: Status: Acute (4) RADHIKA (acute kidney injury): Status: Acute (5) Normocytic anemia: Status: Acute Plan This is a 51-year-old female with past medical history of diabetes who presents to the hospital with complaints of suprapubic pain as well as lower extremity edema found to have a hypoxic and have UTI # acute hypoxic respiratory failure - patient does not usually use oxygen at home, currently on 3 L satting 98%, presented with 81% on room air - possibly a combination of obesity hypoventilation syndrome but PE cannot be ruled out - BNP lower than 100 - chest x-ray negative - COVID influenza negative - patient refusing CPAP - at this time will obtain lower extremity bilateral venous Doppler, as well as CT angiogram to rule out PE - continue O2 as tolerated # UTI - symptomatic - will treat with IV antibiotics - follow cultures # RADHIKA - IV fluid - follow BMP # lower extremity edema - nonpitting - possibly lymphadenopathy versus venous insufficiency - will obtain V/Q scan - Caleb seo # normocytic anemia - does have hematuria but HDS - will obtain ferritin, B12, folic acid - stool occult - follow CBC # hematuria - hemodynamically stable - likely in the setting of UTI - will monitor not resolved then consult Urology # diabetes - low-dose sliding scale insulin - diabetic diet DVT prophylaxis: SCDs in the setting of hematuria Given the hypoxic respiratory failure and requirement for oxygen supplement, as well as UTI and further workup requirement, patient will need a minimum tonight medically necessary admission for further evaluation and monitoring Quality Stroke Does the patient have a stroke diagnosis?: No VTE Prior VTE?: No VTE Risk Level:: Medical - moderate - high VTE Device Contraindication: N/A - Device Ordered VTE Drug Contraindication: Treatment Not Indicated
[2021-10-05] MEDS: Lactated Ringers 1,000 ML 100 ML IVCONT ×2 (03:23→19:40)
[2021-10-05 06:28] LABS: D Dimer High Sensitivity 839 NG/ML
[2021-10-05 06:53] LABS: Anion Gap 12 (12-20); Blood Urea Nitrogen 20 mg/dL (9-16); Calcium 8.2 mg/dL (8.4-10.2); Carbon Dioxide 21 mmol/L (22-29); Chloride 109 mmol/L (96-108); Creatinine Clr Calc Pharmacy 82.5; Estimated Glomerular Filt Rate 49; Glucose Random 138 mg/dL (60-115); Potassium 4.2 mmol/L (3.3-5.1); Sodium 138 mmol/L (135-145)
--- NOTE | 2021-10-05 06:54 | PM.EVENT ---
Event Note Date of Service: 10/05/21 Event Note: Given shortage of IV contrast, patient will receive V/Q scan to rule out PE 1st, if indeterminate given her body habitus, then will resume with CT angio of the chest to rule out PE
--- NOTE | 2021-10-05 07:00 | PC.NURSE ---
Report received from prior RN. Patient resting comfortably on stretcher asleep at this time. Respirations regular and even. Skin PWD. IV patent with LRS running at this time. Will continue to monitor.
[2021-10-05 07:36] LABS: Glucose, Whole Blood 119 mg/dL (60-115)
--- NOTE | 2021-10-05 09:25 | PHA.MEDREC ---
Pharmacy Consult ? Medication Reconciliation Pharmacy has completed the medication reconciliation. No remarkable issues. Letitia Hartmann, [facility]
--- NOTE | 2021-10-05 09:50 | PC.NURSE ---
Patient gone to ultrasound at this itme.
[2021-10-05 11:33] LABS: Glucose, Whole Blood 112 mg/dL (60-115)
[2021-10-05 12:09] LABS: MANUAL DIFF FLAG NO
[2021-10-05 12:13] LABS: Basophils Percent Auto 0.3 % (0-2); Eosinophils Absolute Auto 0.2 X10*3/uL (0.0-0.4); Eosinophils Percent Auto 2.9 % (0-4); Hematocrit 30.8 % (37.0-47.0); Hemoglobin 9.3 g/dl (12.0-16.0); Imm Gran Abs Auto 0.02 X10*3/uL (0.00-0.03); Imm Gran Pct Auto 0.3 % (0.0-0.4); Lymphocytes Absolute Auto 1.4 X10*3/uL (1.2-4.9); Lymphocytes Percent Auto 20.5 % (20-40); Mean Corpuscular HGB Conc 30.2 g/dl (31.0-35.0); Mean Corpuscular Volume 92.8 fL (80.0-98.0); Mean Platelet Volume 10.7 fL (9.4-12.3); Monocytes Absolute Auto 0.5 X10*3/uL (0.1-1.2); Monocytes Percent Auto 6.9 % (2-11); Neutrophils Absolute Auto 4.8 x10*3/uL (2.0-8.3); Neutrophils Percent Auto 69.1 % (45-73); Platelet Count 192 X10*3/uL (160-400); Red Blood Count 3.32 X10*6/uL (4.20-5.50); Red Cell Distribution Width 15.9 % (11.0-16.0)
--- NOTE | 2021-10-05 12:29 | PM.EVENT ---
Event Note Date of Service: 10/05/21 Event Note: Chart reviewed patient examined. Exam unchanged since admission. Venous duplex negative awaiting V/Q scan. Agree with plan as ordered
[2021-10-05 12:55] LABS: Ferritin 34 ng/mL (10-250)
[2021-10-05] MEDS: Aspirin Enteric Coated 81 MG TABLET.DR PO (13:13)
[2021-10-05] MEDS: amLODIPine Besylate 5 MG TABLET PO (13:13)
[2021-10-05] MEDS: clonazePAM 0.5 MG TABLET 0.25 MG PO (13:14)
[2021-10-05] MEDS: FLUoxetine HCl 20 MG CAPSULE 60 MG PO (13:14)
[2021-10-05] MEDS: Buprenorphine/Naloxone 8/2 mg FILM 1 FILM SUBLINGUAL ×2 (13:15→21:33)
[2021-10-05] MEDS: Gabapentin 600 MG TABLET PO ×2 (13:19→21:33)
[2021-10-05 13:24] LABS: Folate 5.3 ng/mL (> or = 4.0); Vitamin B12 445 pg/mL (200-900)
[2021-10-05 16:04] LABS: Glucose, Whole Blood 196 mg/dL (60-115)
--- NOTE | 2021-10-05 16:30 | MHC.CM.PN ---
PT LIVES WITH HER BOYFRIEND/COMPUTER T[employer] LIBRARIAN SHE REPORTS HE ASSISTS HER WITH ALL CARE PT REPORTS SHE HAS HOME O2 PT REPORTS SHE GOES TO [facility] AND BELIEVES HER PCP IS DR BATES. PT HAS A HCP ON FILE CURRENT DC PLAN IS HOME WITH [employer] OF [employer] BOYFRIEND TO TRANSPORT
[2021-10-05] MEDS: Insulin Lispro 100 UNIT/ML 3 ML VIAL SUBCUT (18:05)
[2021-10-05] MEDS: Omeprazole 20 MG CAPSULE.DR PO (18:05)
[2021-10-05] MEDS: 0.9 % Sodium Chloride Flush 3 ML SYRINGE IVFLUSH (18:06)
[2021-10-05] MEDS: Atorvastatin Calcium 80 MG TABLET PO (21:33)
[2021-10-05] MEDS: traZODone HCL 100 MG TABLET 200 MG PO (21:40)
[2021-10-05] MEDS: Acetaminophen 325 MG TABLET 650 MG PO (21:40)
[2021-10-05 21:56] LABS: Glucose, Whole Blood 119 mg/dL (60-115)
[2021-10-06 03:44] VITALS: BP 143/58; PULSE 84; RESP 18; TEMP 36.4; O2SAT 96
[2021-10-06] MEDS: Levothyroxine Sodium 200 MCG TABLET PO (05:58)
[2021-10-06] MEDS: Omeprazole 20 MG CAPSULE.DR PO ×2 (05:58→17:27)
[2021-10-06 07:16] VITALS: BP 127/67; PULSE 76; RESP 18; TEMP 36.3; O2SAT 94
[2021-10-06 07:41] LABS: Glucose, Whole Blood 129 mg/dL (60-115)
[2021-10-06] MEDS: clonazePAM 0.5 MG TABLET 0.25 MG PO (09:02)
[2021-10-06] MEDS: FLUoxetine HCl 20 MG CAPSULE 60 MG PO (09:02)
[2021-10-06] MEDS: Loratadine 10 MG TABLET PO (09:02)
[2021-10-06] MEDS: Aspirin Enteric Coated 81 MG TABLET.DR PO (09:03)
[2021-10-06] MEDS: Gabapentin 600 MG TABLET PO ×3 (09:03→21:52)
[2021-10-06] MEDS: Buprenorphine/Naloxone 8/2 mg FILM 1 FILM SUBLINGUAL ×3 (09:03→21:52)
[2021-10-06] MEDS: hydroCHLOROthiazide 25 MG TABLET PO (09:03)
[2021-10-06] MEDS: 0.9 % Sodium Chloride Flush 3 ML SYRINGE IVFLUSH ×3 (09:03→21:53)
[2021-10-06] MEDS: amLODIPine Besylate 5 MG TABLET PO (09:03)
[2021-10-06 11:14] VITALS: BP 118/71; PULSE 81; RESP 18; TEMP 36.9; O2SAT 94
[2021-10-06 11:36] LABS: Glucose, Whole Blood 162 mg/dL (60-115)
[2021-10-06] MEDS: Lactated Ringers 1,000 ML 100 ML IVCONT (12:27)
[2021-10-06] MEDS: Insulin Lispro 100 UNIT/ML 3 ML VIAL SUBCUT ×2 (12:27→17:28)
--- NOTE | 2021-10-06 12:35 | HO.PM.IMPN ---
Subjective Subjective Date of Service: 10/06/21 Interval History: No acute issues overnight. Sats remained stable Review of Systems Denies chest pain Denies shortness of breath Denies nausea vomiting diarrhea denies fever chills Physical Exam Vital Signs: Vital Signs: Last Vital Signs Temp 98.5 F 10/06/21 11:14 Pulse 81 10/06/21 11:14 Resp 18 10/06/21 11:14 BP 118/71 10/06/21 11:14 Pulse Ox 94 10/06/21 11:14 BMI result Body Mass Index 54.9 Const: Other: No acute distress Resp: Other: Clear but diminished bilaterally no rales rhonchi or wheezes Cardio: Other: No S4; positive S1-S2; no S3 murmurs rubs or gallops Extrem: Other: Trace edema bilaterally Objective Data Active Medications Acetaminophen (Acetaminophen 325 Mg Tablet) 650 mg PO Q6H PRN PRN Reason: Pain, Mild (Pain Scale 1-3) Last Admin: 10/05/21 21:40 Dose: 650 mg Documented by: ZULEIKA Albuterol Sulfate (Albuterol Sulfate 90 Mcg 8 Gm Inhaler) 2 puff INHALE Q4H PRN PRN Reason: wheezing Amlodipine Besylate (Amlodipine Besylate 5 Mg Tablet) 5 mg PO DAILY [facility]; Protocol Last Admin: 10/06/21 09:03 Dose: 5 mg Documented by: AARON Aspirin (Aspirin Enteric Coated 81 Mg Tablet.) 81 mg PO DAILY [facility] Last Admin: 10/06/21 09:03 Dose: 81 mg Documented by: AARON Atorvastatin Calcium (Atorvastatin Calcium 80 Mg Tablet) 80 mg PO BEDTIME [facility] Last Admin: 10/05/21 21:33 Dose: 80 mg Documented by: ZULEIKA Buprenorphine/Naloxone (Buprenorphine/Naloxone 8/2 Mg Film) 1 film SUBLINGUAL TID [facility] Last Admin: 10/06/21 09:03 Dose: 1 film Documented by: AARON Clonazepam (Clonazepam 0.5 Mg Tablet) 0.25 mg PO DAILY [facility] Last Admin: 10/06/21 09:02 Dose: 0.25 mg Documented by: AARON Dextrose (Dextrose 50 % 25 Gm/50 Ml Syringe) 25 gm IVPUSH Q15M PRN; Protocol PRN Reason: per Hypoglycemia Standing Ord. Docusate Sodium (Docusate Sodium 100 Mg Capsule) 100 mg PO DAILY PRN PRN Reason: Constipation Fluoxetine HCl (Fluoxetine Hcl 20 Mg Capsule) 60 mg PO DAILY [facility] Last Admin: 10/06/21 09:02 Dose: 60 mg Documented by: AARON Gabapentin (Gabapentin 600 Mg Tablet) 600 mg PO TID [facility] Last Admin: 10/06/21 09:03 Dose: 600 mg Documented by: AARON Glucose (Glucose Gel 15 Gm Gel..Gram.) 15 gm PO Q15M PRN; Protocol PRN Reason: per Hypoglycemia Standing Ord. Hydrochlorothiazide (Hydrochlorothiazide 25 Mg Tablet) 25 mg PO DAILY [facility]; Protocol Last Admin: 10/06/21 09:03 Dose: 25 mg Documented by: AARON Lactated Ringer's (Lr) 1,000 mls @ 100 mls/hr IVCONT .Q10H [facility] Last Admin: 10/06/21 12:27 Dose: 100 mls/hr Documented by: AARON Ceftriaxone Sodium 1 gm/ (Sodium Chloride) 50 mls @ 100 mls/hr IV Q24H [facility] Last Infusion: 10/05/21 22:03 Dose: 0 mls/hr Documented by: ZULEIKA Insulin Human Lispro (Insulin Lispro 100 Unit/Ml 3 Ml Vial) 0 unit SUBCUT QIDACHS [facility]; Protocol Last Admin: 10/06/21 12:27 Dose: 2 unit Documented by: AARON Insulin Human Lispro (Insulin Lispro 100 Unit/Ml 3 Ml Vial) 17 unit SUBCUT DAILY@1200 [facility] Last Admin: 10/06/21 12:10 Dose: Not Given Documented by: AARON Non-Admin Reason: No Insulin Coverage Insulin Human Lispro (Insulin Lispro 100 Unit/Ml 3 Ml Vial) 22 unit SUBCUT DAILY@0900,1700 [facility] Last Admin: 10/06/21 09:19 Dose: Not Given Documented by: AARON Non-Admin Reason: No Insulin Coverage Levothyroxine Sodium (Levothyroxine Sodium 200 Mcg Tablet) 200 mcg PO DAILY@0630 [facility] Last Admin: 10/06/21 05:58 Dose: 200 mcg Documented by: CHRIS Loratadine (Loratadine 10 Mg Tablet) 10 mg PO DAILY [facility] Last Admin: 10/06/21 09:02 Dose: 10 mg Documented by: AARON Omeprazole (Omeprazole 20 Mg Capsule.) 20 mg PO BID@0630,1630 [facility] Last Admin: 10/06/21 05:58 Dose: 20 mg Documented by: CHRIS Ondansetron HCl (Ondansetron Hcl 4 Mg/2 Ml Vial) 4 mg IVPUSH Q8H PRN PRN Reason: Nausea and Vomiting Sodium Chloride (0.9 % Sodium Chloride Flush 3 Ml Syringe) 3 ml IVFLUSH QSHIFT [facility] Last Admin: 10/06/21 09:03 Dose: 3 ml Documented by: AARON Trazodone HCl (Trazodone Hcl 100 Mg Tablet) 200 mg PO BEDTIME PRN PRN Reason: Insomnia Last Admin: 10/05/21 21:40 Dose: 200 mg Documented by: ZULEIKA Labs CBC & Chem 7: 10/05/21 12:05 10/05/21 06:23 Labs: Laboratory Results - last 24 hr 10/05/21 10/05/21 10/05/21 12:05 12:05 15:49 POC Glucose 196 H Ferritin 34 Vitamin B12 445 Folate 5.3 10/05/21 10/06/21 10/06/21 21:51 07:15 11:14 POC Glucose 119 H 129 H 162 H Ferritin Vitamin B12 Folate Microbiology Microbiology Results: Microbiology 10/04/21 22:11 Urine Culture - Final Urine clean catch - Urine quevedo top 10/05/21 02:01 Blood Culture - Preliminary Blood - Venous No growth after 24 hours. 10/05/21 02:01 Blood Culture - Preliminary Blood - Venous No growth after 24 hours. Assessment and Plan (1) Acute respiratory failure with hypoxia: Status: Acute (2) UTI (urinary tract infection): Status: Acute (3) RADHIKA (acute kidney injury): Status: Acute Plan This is a 51-year-old female with past medical history of diabetes who presents to the hospital with complaints of suprapubic pain as well as lower extremity edema found to have a hypoxic and have UTI 1.Acute hypoxic respiratory failure - needs overnight oximetry -amb sats in am 2.UTI - symptomatic.. - will treat with IV antibiotics - follow cultures 3. RADHIKA - IV fluid...at baseline - follow BMP 4.Anemia - chronic/stable -follow with PCP 5.Diabetes - continue outpatient dosing -this probe correctional scale -ADA diet DVT prophylaxis: SCDs in the setting of hematuria Quality Stroke Does the patient have a stroke diagnosis?: No VTE Prior VTE?: No VTE Risk Level:: Medical - moderate - high VTE Device Contraindication: N/A - Device Ordered VTE Drug Contraindication: Treatment Not Indicated
[2021-10-06 15:46] VITALS: BP 120/71; PULSE 78; RESP 16; TEMP 36.9; O2SAT 92
[2021-10-06 16:16] LABS: Glucose, Whole Blood 164 mg/dL (60-115)
[2021-10-06 20:00] VITALS: BP 125/68; PULSE 84; RESP 17; TEMP 36.2; O2SAT 95
[2021-10-06 21:29] LABS: Glucose, Whole Blood 119 mg/dL (60-115)
[2021-10-06] MEDS: Atorvastatin Calcium 80 MG TABLET PO (21:52)
[2021-10-06] MEDS: cefTRIAXone sodium 1 GM in 0.9 % Sodium Chloride 50 ML IV (21:53)
[2021-10-06] MEDS: traZODone HCL 100 MG TABLET 200 MG PO (21:55)
[2021-10-07] VITALS: BP 130/62; PULSE 85; RESP 18; TEMP 36.3; O2SAT 96
[2021-10-07 04:00] VITALS: BP 120/65; PULSE 75; RESP 18; TEMP 36.5; O2SAT 97
[2021-10-07] MEDS: Omeprazole 20 MG CAPSULE.DR PO ×2 (06:04→16:25)
[2021-10-07] MEDS: Levothyroxine Sodium 200 MCG TABLET PO (06:04)
[2021-10-07 06:06] LABS: MANUAL DIFF FLAG NO
[2021-10-07 06:12] LABS: Basophils Percent Auto 0.3 % (0-2); Eosinophils Absolute Auto 0.2 X10*3/uL (0.0-0.4); Eosinophils Percent Auto 2.7 % (0-4); Hematocrit 27.4 % (37.0-47.0); Hemoglobin 8.2 g/dl (12.0-16.0); Imm Gran Abs Auto 0.02 X10*3/uL (0.00-0.03); Imm Gran Pct Auto 0.3 % (0.0-0.4); Lymphocytes Absolute Auto 1.9 X10*3/uL (1.2-4.9); Lymphocytes Percent Auto 29.8 % (20-40); Mean Corpuscular HGB Conc 29.9 g/dl (31.0-35.0); Mean Corpuscular Hemoglobin 27.6 pg (27.0-33.0); Mean Corpuscular Volume 92.3 fL (80.0-98.0); Mean Platelet Volume 10.6 fL (9.4-12.3); Monocytes Absolute Auto 0.5 X10*3/uL (0.1-1.2); Monocytes Percent Auto 8.1 % (2-11); Neutrophils Absolute Auto 3.7 x10*3/uL (2.0-8.3); Neutrophils Percent Auto 58.8 % (45-73); Platelet Count 206 X10*3/uL (160-400); Red Blood Count 2.97 X10*6/uL (4.20-5.50); Red Cell Distribution Width 15.6 % (11.0-16.0); White Blood Count 6.3 X10*3/uL (4.8-10.8)
[2021-10-07 06:37] LABS: Alanine Aminotransferase < 6 U/L (0-31); Albumin Level 2.7 g/dL (3.5-5.0); Alkaline Phosphatase 153 U/L (39-117); Anion Gap 11 (12-20); Aspartate Amino Transferase 12 U/L (5-31); Bilirubin Total 0.3 mg/dL (0.0-1.0); Blood Urea Nitrogen 20 mg/dL (9-16); Calcium 8.5 mg/dL (8.4-10.2); Carbon Dioxide 25 mmol/L (22-29); Chloride 107 mmol/L (96-108); Estimated Glomerular Filt Rate 45; Glucose Fasting 178 mg/dL (60-99); Potassium 4.6 mmol/L (3.3-5.1); Sodium 138 mmol/L (135-145)
[2021-10-07 07:35] VITALS: BP 120/65; PULSE 78; RESP 18; TEMP 36.8; O2SAT 93
[2021-10-07] MEDS: Insulin Lispro 100 UNIT/ML 3 ML VIAL SUBCUT ×3 (07:45→16:25)
[2021-10-07] MEDS: 0.9 % Sodium Chloride Flush 3 ML SYRINGE IVFLUSH ×2 (07:45→14:28)
[2021-10-07 08:16] LABS: Glucose, Whole Blood 165 mg/dL (60-115)
[2021-10-07] MEDS: Gabapentin 600 MG TABLET PO ×2 (09:33→14:28)
[2021-10-07] MEDS: Loratadine 10 MG TABLET PO (09:33)
[2021-10-07] MEDS: FLUoxetine HCl 20 MG CAPSULE 60 MG PO (09:33)
[2021-10-07] MEDS: Aspirin Enteric Coated 81 MG TABLET.DR PO (09:34)
[2021-10-07] MEDS: hydroCHLOROthiazide 25 MG TABLET PO (09:34)
[2021-10-07] MEDS: Buprenorphine/Naloxone 8/2 mg FILM 1 FILM SUBLINGUAL ×2 (09:34→14:28)
[2021-10-07] MEDS: clonazePAM 0.5 MG TABLET 0.25 MG PO (09:34)
[2021-10-07] MEDS: amLODIPine Besylate 5 MG TABLET PO (09:34)
[2021-10-07 11:59] VITALS: BP 162/86; PULSE 85; RESP 18; TEMP 36.2; O2SAT 97
[2021-10-07 12:00] LABS: Glucose, Whole Blood 178 mg/dL (60-115)
--- NOTE | 2021-10-07 13:46 | PM.DS ---
DS: Providers Provider Date of Service: 10/07/21 Date of admission: 10/05/21 01:58 Date of discharge: 10/07/21 Primary care physician: Unknown Physician DS: Diagnosis Discharge Diagnosis (1) Acute respiratory failure with hypoxia: Status: Acute (2) UTI (urinary tract infection): Status: Acute (3) RADHIKA (acute kidney injury): Status: Acute DS: Summary Hospital Course Hospital Course: This is a 51-year-old female with past medical history of hyperlipidemia, HTN, hydroureteronephrosis, diabetes, morbid obesity, history of kidney stones who presents to the hospital with complaints of suprapubic tenderness.? Patient reports that her symptoms started 2 days prior, she is also complaining of dysuria, frequency, and urgency.? She has some chills with no fever.? She is complaining of lower extremity swelling with minimal dyspnea.? Patient reports no chest pain, no abdominal pain nausea or vomiting, no diarrhea or constipation, no numbness tingling or weakness.? Patient reports that she lives in [facility] and is mostly sedentary. On arrival to the ED patient was found to be hypoxic satting 81% on room air, with a heart rate of 101, respiratory rate of 20, and temperature of 98.1 degrees.? Patient currently on 3 L satting 98%.? Labs are significant for WBC count of 7.3, hemoglobin of 8.7, which dropped from 9.3, hematocrit of 28.3, potassium of 4.2, BUN of 20, creatinine of 1.35, UA that is positive for urine blood, nitrites, leukocyte Estrace, WBC, and urine RBC, Abdomen pelvic CT shows interval removal of right-sided dual pigtail ureteral stent, no hydronephrosis or stone Admitted to the hospital given empiric antibiotics given extensive history. Abdominal pain resolved and urine cultures were negative; respiratory therapy will re-evaluate for home O2 and she will be discharged home Time Spent with Patient Time attestation: Total time spent providing and/or coordinating discharge services: Discharge coordination time: Greater than 30 minutes Quality: Safe Use of Opioids Does Pt have an Active Cancer Diagnosis on the Problem List?: No Quality: Stroke Does the patient have a stroke diagnosis?: No Physical Exam Vital Signs: Vital Signs: Last Vital Signs Temp 97.1 F 10/07/21 11:59 Pulse 85 05/06/22 11:59 Resp 18 10/07/21 11:59 BP 162/86 H 10/07/21 11:59 Pulse Ox 97 10/07/21 11:59 BMI result Body Mass Index 54.9 Const: Other: No acute distress Resp: Other: Clear but diminished bilaterally no rales rhonchi or wheezes Cardio: Other: No S4; positive S1-S2; no S3 murmurs rubs or gallops Extrem: Other: Trace edema bilaterally DS: Data Data Completed and Pending Completed studies during hospitalization [Text1]: Procedures Assistance with Respiratory Ventilation, Less than 24 Consecutive Hours, Continuous Positive Airway Pressure (08/19/21) Dilation of Right Ureter with Intraluminal Device, Via Natural or Artificial Opening Endoscopic (08/13/21) Fluoroscopy of Right Kidney, Ureter and Bladder (08/13/21) Labs on day of discharge: Laboratory Results - last 24 hr 10/06/21 10/06/21 10/07/21 16:02 20:31 05:37 WBC 6.3 RBC 2.97 L Hgb 8.2 L Hct 27.4 L MCV 92.3 MCH 27.6 MCHC 29.9 L RDW 15.6 Plt Count 206 MPV 10.6 Immature Gran % (Auto) 0.3 Neut % (Auto) 58.8 Lymph % (Auto) 29.8 [place] % (Auto) 8.1 Eos % (Auto) 2.7 Baso % (Auto) 0.3 Lymph # (Auto) 1.9 [place] # (Auto) 0.5 Eos # (Auto) 0.2 Baso # (Auto) 0.0 Abs Immat Gran (auto) 0.02 Absolute Neuts (auto) 3.7 Absolute Nucleated RBC 0.000 Nucleated RBC % (auto) 0.0 Sodium Potassium Chloride Carbon Dioxide Anion Gap BUN Creatinine Estim Creat Clear Calc Estimated GFR POC Glucose 164 H 119 H Fasting Glucose Calcium Total Bilirubin AST ALT Alkaline Phosphatase Total Protein Albumin 10/07/21 10/07/21 10/07/21 05:37 07:29 11:54 WBC RBC Hgb Hct MCV MCH MCHC RDW Plt Count MPV Immature Gran % (Auto) Neut % (Auto) Lymph % (Auto) [place] % (Auto) Eos % (Auto) Baso % (Auto) Lymph # (Auto) [place] # (Auto) Eos # (Auto) Baso # (Auto) Abs Immat Gran (auto) Absolute Neuts (auto) Absolute Nucleated RBC Nucleated RBC % (auto) Sodium 138 Potassium 4.6 Chloride 107 Carbon Dioxide 25 Anion Gap 11 L BUN 20 H Creatinine 1.27 Estim Creat Clear Calc 76.0 Estimated GFR 45 POC Glucose 165 H 178 H Fasting Glucose 178 H Calcium 8.5 Total Bilirubin 0.3 AST 12 ALT < 6 Alkaline Phosphatase 153 H Total Protein 6.0 L Albumin 2.7 L Preliminary micro results at discharge 10/05/21 02:01 Blood Culture - Preliminary Blood - Venous No growth after 48 hours. 10/05/21 02:01 Blood Culture - Preliminary Blood - Venous No growth after 48 hours. Discharge Plan Discharge Patient Disposition: Home, Self-Care Discharge Diagnosis: UTI Referrals: Physician,Unknown J [Primary Care Provider] - 1 Week Discharge Medications: Continued hydrochlorothiazide 25 mg tablet 25 mg PO DAILY 30 Days Qty: 30 0RF amlodipine [Norvasc] 5 mg tablet 5 mg PO DAILY 30 Days Qty: 30 0RF atorvastatin 80 mg tablet 1 tab PO BEDTIME 0RF gabapentin 600 mg tablet 1 tab PO TID 0RF ibuprofen 800 mg tablet 1 tab PO TID PRN (Reason: pain) 0RF aspirin 81 mg tablet,delayed release (DR/EC) 1 tab PO DAILY 0RF trazodone 100 mg tablet 1 - 3 tab PO BEDTIME PRN (Reason: Insomnia) 0RF omeprazole 20 mg capsule,delayed release(DR/EC) 1 cap PO BID@0630,1630 0RF levothyroxine 200 mcg tablet 1 tab PO DAILY@0630 0RF albuterol sulfate [ProAir HFA] 90 mcg/actuation HFA aerosol inhaler 2 puff PO Q4H PRN (Reason: wheezing) 0RF fluoxetine 20 mg capsule 3 cap PO DAILY 0RF insulin lispro [Humalog KwikPen Insulin] 100 unit/mL insulin pen 17 unit subcut DAILY@1200 0RF Rx Instructions: with lunch insulin lispro [Humalog KwikPen Insulin] 100 unit/mL insulin pen 22 unit subcut DAILY@0900,1700 0RF Rx Instructions: give with food Lantus Solostar U-100 Insulin 100 unit/mL (3 mL) insulin pen 54 unit subcut BID 0RF buprenorphine-naloxone [Suboxone] 8-2 mg film 1 strip sublingual TID 0RF loratadine 10 mg tablet 1 tab PO DAILY 0RF clonazepam 0.5 mg tablet 0.5 tab PO DAILY 0RF (DME) pen needle, diabetic [UltiCare Pen Needle] 31 gauge x 5/16 needle See Rx Instructions ea subcut .MEDSUPPLY Qty: 1200 0RF Rx Instructions: As directed (DME) FreeStyle Lite Strips Strip See Rx Instructions ea Not Applicable QID Qty: 10 0RF Rx Instructions: As directed Discharge Orders: Discharge Order (Routine); Ordered 10/07/21 Ordered By: Cade Huerta Diet: advance to usual diet Activity on Discharge: As tolerated Stand Alone Forms: Patient Portal Discharge page Care Plan Goals: Resume previous medications as before hospital Health Concerns: Supplemental oxygen as per therapy Plan of Treatment: Follow-up with PCP Assessment: See discharge summary
--- NOTE | 2021-10-07 14:01 | MHC.CM.PN ---
PATIENT IS DC HOME TODAY SHE NEEDS BLS TRANSPORT HOME. [facility] REFERRAL TO BE PLACED. RN AWARE OF PLAN.
[2021-10-07 14:48] VITALS: PULSE 72; O2SAT 94
[2021-10-07 15:57] VITALS: BP 154/72; PULSE 86; RESP 18; TEMP 36.2; O2SAT 92
[2021-10-07 16:11] LABS: Glucose, Whole Blood 183 mg/dL (60-115)
== END 2021-10-07 22:54 | disposition home or self-care (01) | DRG 463 ==
LOC: HO.ED 10-05 01:20 → HO.EDOVER 10-05 02:07 → HO.S3 10-05 08:04
PROVIDERS: Admitting Provider Internal Medicine; Emergency Provider Student in an Organized Health Care Education/Training Program; PCP Nurse Practitioner Family; Visit Provider Hospitalist
DX: N39.0 Urinary tract infection, site not specified (principal); J96.01 Acute respiratory failure with hypoxia; N17.9 Acute kidney failure, unspecified; E66.2 Morbid (severe) obesity with alveolar hypoventilation; D64.9 Anemia, unspecified; E11.9 Type 2 diabetes mellitus without complications; Z68.43 Body mass index [BMI] 50.0-59.9, adult; R31.9 Hematuria, unspecified; F17.210 Nicotine dependence, cigarettes, uncomplicated; Z20.822 Contact with and (suspected) exposure to COVID-19; Z71.6 Tobacco abuse counseling; Z87.442 Personal history of urinary calculi; Z91.040 Latex allergy status; Z88.0 Allergy status to penicillin; Z88.8 Allergy status to other drugs, medicaments and biological substances; Z79.4 Long term (current) use of insulin; Z79.890 Hormone replacement therapy; Z79.899 Other long term (current) drug therapy
CPT/HCPCS: 36415; 71045; 74176; 78580; 80048; 80053; 81001; 82009; 82607; 82728; 82746; 82803; 82947; 83605; 83880; 85025; 85379; 85610; 87040; 87086; 87502; 87635; 93970; 94640; 96361; 96365; 99285; A9540; J0696

== ENCOUNTER 2021-11-08 00:24 | Inpatient (IN) | payer MEDICAID, SELFPAY ==
--- NOTE | ~2021-11-08 | US_ITS ---
EXAMINATION: US VENOUS WITH DOPPLER UPPER EXTREMITY, RIGHT CLINICAL INFORMATION: Right hand swelling. Evaluate for VTE COMPARISON: None TECHNIQUE: Ultrasound of the upper extremity is performed using compression sonography and color and pulse Doppler flow with assessment of augmentation of flow. There is also imaging and Doppler assessment of the jugular and subclavian veins. Spectral analysis with color-flow imaging is performed. FINDINGS: Respiratory variation, normal compression, and augmented flow are noted throughout the upper extremity including the axillary, brachial, cubital, and radial and ulnar veins. There is normal flow in the internal jugular and subclavian veins. There is no visible deep or superficial thrombophlebitis. If the patient's symptoms progress, a followup ultrasound in 5 -7 days might be of value to exclude proximal propagation from a nonvisualized distal arm vein. US/US venous duplex UE RT IMPRESSION: No DVT demonstrated in the right upper extremity.
--- NOTE | ~2021-11-08 | NM_ITS ---
EXAMINATION: NM LASIX RENOGRAM CLINICAL INFORMATION: Hydronephrosis right kidney. COMPARISON: Comparison is made to CT dated 11/12/2021. TECHNIQUE: 10 mCi technetium 99m-DTPA and 40 mg Lasix. Lasix given at 30 minutes. FINDINGS: This exam is limited from patient body habitus and artifact created by body habitus. The bolus is suboptimal and therefore difficult to evaluate for perfusion. There is felt to be some perfusion bilaterally; however, the graphs do show diminished perfusion on the right. Uptake on the left is felt to be present and there is activity in the collecting system, activity by 3 minutes. On the right, I believe we are seeing collecting system activity by 5 minutes. There is retention in the proximal collecting system and status post Lasix, there is persistent retention in the left-sided collecting system. Status post Lasix, persistent retention in the right-sided collecting system. The halftimes are felt to be noncontributory. The split functions are 79% left and 21% right. NM/NM renal flow w pharm int IMPRESSION: This exam is limited from patient body habitus and artifact. The scan is limited in diagnostic evaluation. On the left, there is perfusion uptake and function and the kidney does empty into the bladder. On the right, the graphs suggest diminished perfusion. Uptake and function is diminished and there is residual contrast in the collecting system despite Lasix administration. Although this finding could well represent an element of obstruction excretion within dilated nonobstructed patulous collecting system would need to be considered here as well. Split functions are 79% left and 21% right.
--- NOTE | ~2021-11-08 | US_ITS ---
EXAMINATION: US VENOUS ULTRASOUND WITH DOPPLER LOWER EXTREMITY, BILATERAL CLINICAL INFORMATION: Lower extremity pain and swelling. COMPARISON: None TECHNIQUE: Ultrasound of the deep veins is performed from the hip to the calf with compression sonography and color and pulse Doppler assessment. Spectral analysis with color-flow imaging is performed. FINDINGS: RIGHT: There is normal venous compression and respiratory variation and augmented flow. The visualized common femoral vein, superficial femoral vein, profunda femoral vein, popliteal vein, and the trifurcation region shows no evidence of deep venous thrombosis. There is no significant popliteal fossa cyst. LEFT: There is normal venous compression and respiratory variation and augmented flow. The visualized common femoral vein, superficial femoral vein, profunda femoral vein, popliteal vein, and the trifurcation region shows no evidence of deep venous thrombosis. There is no significant popliteal fossa cyst. If the patient's symptoms persist, followup ultrasound in 5 days 7 days might be of value to exclude proximal propagation from a non-visualized calf vein. US/US venous duplex LE BI IMPRESSION: No evidence for deep venous thrombosis in the visualized veins of the bilateral lower extremities.
--- NOTE | ~2021-11-08 | CT_ITS ---
EXAMINATION: CT ABDOMEN AND PELVIS WITHOUT CONTRAST CLINICAL INFORMATION: Right lower quadrant pain. Firm right lower abdomen and skin changes. COMPARISON: Previous CT of the abdomen and pelvis October 2021 TECHNIQUE: Multidetector volumetric imaging was performed from the superior aspect of the liver through the pubic symphysis. Sagittal and coronal reformatted images were obtained on the technologist's workstation. This CT examination was performed using dose optimization techniques as appropriate, variously including the following: *Automated exposure control *Adjustment of mA and/or kV according to patient size (this includes techniques or standardized protocols for targeted exams where dose is matched to indication/reason for exam; i.e. extremities or head) *Use of iterative reconstruction technique DLP: 156 by mGy-cm FINDINGS: LUNG BASES: The visualized lung bases are unremarkable. LIVER, GALLBLADDER, AND BILIARY TREE: The liver is normal in size, shape, and attenuation. No focal hepatic lesion or biliary ductal dilatation is present. There is high attenuation in the gallbladder suggestive of gallstones. The gallbladder is otherwise normal. PANCREAS: Unremarkable. SPLEEN: Unremarkable. ADRENAL GLANDS: Unremarkable. KIDNEYS AND URETERS: There is mild right hydronephrosis. There is heterogeneous high attenuation seen in the right collecting system. Differential would include infection/fungus ball, hemorrhage, stone and mass. The right ureter may be dilated proximally. There is a 3 cm cyst in the upper pole of the right kidney. The left kidney is normal appearing. BLADDER: Unremarkable. GASTROINTESTINAL TRACT: The small and large bowel are unremarkable. The appendix is unremarkable. ABDOMINAL WALL: No significant hernia is appreciated. There is extensive stranding of the subcutaneous fat in the visualized bilateral abdominal wall, right greater than left. There is some associated skin thickening seen particularly on the right. This may represent edema or cellulitis.. Focal mass or fluid collection is not seen. LYMPH NODES: There is shotty retroperitoneal lymphadenopathy. There is shotty bilateral inguinal lymphadenopathy. No enlarged lymph nodes are seen. No ascites. VASCULAR: Unremarkable. PELVIC VISCERA: Unremarkable. OSSEOUS STRUCTURES: There are degenerative changes of the spine. CT/CT abdomen pelvis wo IV con IMPRESSION: Right-sided hydronephrosis and proximal ureteral dilatation. High attenuation in the right renal collecting system. Differential would include hemorrhage, infection/fungus ball, stone and mass. 2 x 3 cm right renal cyst. Diffuse stranding of the subcutaneous fat in the bilateral abdominal wall and skin thickening, right greater than left. No focal fluid collection seen. This may represent edema or cellulitis. Clinical correlation recommended. Shotty retroperitoneal and bilateral inguinal lymphadenopathy. Gallstones. Fleischner guidelines were followed.
--- NOTE | ~2021-11-08 | XR_ITS ---
EXAMINATION: XR CHEST CLINICAL INFORMATION: Hypoxia COMPARISON: Chest CT from 09/07/2021 TECHNIQUE: Frontal view of the chest was obtained. FINDINGS: Large body habitus. Lungs are slightly hypoinflated. There appears to be subtle groundglass opacity of both lungs. Note that there were groundglass opacities on chest CT of 09/07/2021, and in the lower lungs had mosaic attenuation on the abdomen CT of 11/12/2021. Cardiac silhouette is mildly enlarged. No pleural effusion or pneumothorax. Severe osteoarthritis of the right glenohumeral joint. Otherwise, the visualized bones and upper abdomen are unremarkable. XR/XR chest 1V IMPRESSION: * Obese body habitus. * Cardiomegaly and groundglass opacities of both lungs, nonspecific, possibly from vascular congestion and minimal edema rather than pneumonitis.
--- NOTE | ~2021-11-08 | XR_ITS ---
EXAMINATION: XR KNEE, LEFT CLINICAL INFORMATION: Pain COMPARISON: None TECHNIQUE: Three views of the left knee. Views are limited due to patient positioning. FINDINGS: Bone alignment is normal no fracture or dislocation is seen. There is tricompartment arthritis. There may be a small joint effusion. XR/XR knee LT 2V IMPRESSION: Severe arthritis.
[2021-11-08 00:33] VITALS: BP 133/76; PULSE 88; RESP 16; TEMP 36.6; O2SAT 95; BMI 78.2
--- NOTE | 2021-11-08 00:40 | ECG_ITS ---
Test Reason : WEAKNESS Blood Pressure : / mmHG Vent. Rate : 085 BPM Atrial Rate : 085 BPM P-R Int : 150 ms QRS Dur : 088 ms QT Int : 404 ms P-R-T Axes : 040 005 054 degrees QTc Int : 480 ms Normal sinus rhythm Prolonged QT Abnormal ECG When compared to the previous EKG of 08 sep 2021. QTc prolonged Referred By: Ivana Hall Electronically Signed By:CLARITZA ROBERTS
--- NOTE | 2021-11-08 00:48 | ED_ITS ---
HPI - Extremity Problem General Chief complaint: Weakness Stated complaint: swollen legs Time Seen by Provider: 11/08/21 00:26 Source: patient Mode of arrival: EMS Limitations: no limitations History of Present Illness HPI Narrative: 51 yo female from home hx of HLD, HTN, prior UTI, DM, morbid obesity, kidney stones, chronic LE edema, chronic respiratory failure on 2L NC, mood disorder, chronic LE edema, here with c/o LE edema and burning on skin since DC on 10/07. She notes being compliant with her medications. States she barely gets around and that her old man can help her at times. She did not come in on oxygen. Has DVT study montly most recent negative in September and October Complaint: extremity pain and extremity swelling Onset (ago): month(s) (1) Pain Consistency: constant Location: left, right and lower extremity Quality: aching, dull and constant Radiation: none Relieving factors: immobilization Exacerbating factors: walking and palpation Associated symptoms: rash (notes rash behind her knees and under her pannus) Context: other (freuquent visits for the same in past) Related Data Home Medications Medication Instructions Recorded Confirmed albuterol sulfate 90 mcg/actuation 2 puff PO Q4H PRN 08/13/21 10/05/21 aerosol inhaler (ProAir HFA) aspirin 81 mg tablet,delayed 1 tab PO DAILY 08/13/21 10/05/21 release atorvastatin 80 mg tablet 1 tab PO BEDTIME 08/13/21 10/05/21 buprenorphine 8 mg-naloxone 2 mg 1 strip SUBLINGUAL TID 08/13/21 10/05/21 sublingual film (Suboxone) fluoxetine 20 mg capsule 3 cap PO DAILY 08/13/21 10/05/21 gabapentin 600 mg tablet 1 tab PO TID 08/13/21 10/05/21 ibuprofen 800 mg tablet 1 tab PO TID PRN 08/13/21 10/05/21 insulin glargine 100 unit/mL (3 54 unit SUBCUT BID 08/13/21 10/05/21 mL) subcutaneous pen (Lantus Solostar U-100 Insulin) insulin lispro 100 unit/mL 17 unit SUBCUT DAILY@1200 08/13/21 10/05/21 subcutaneous pen (Humalog KwikPen (U-100) Insulin) insulin lispro 100 unit/mL 22 unit SUBCUT DAILY@0900,1700 03/12/22 05/04/22 subcutaneous pen (Humalog KwikPen (U-100) Insulin) levothyroxine 200 mcg tablet 1 tab PO DAILY@0630 08/13/21 10/05/21 loratadine 10 mg tablet 1 tab PO DAILY 08/13/21 10/05/21 omeprazole 20 mg capsule,delayed 1 cap PO BID@0630,1630 08/13/21 10/05/21 release trazodone 100 mg tablet 1 - 3 tab PO BEDTIME PRN 08/13/21 10/05/21 blood sugar diagnostic (FreeStyle #10 ea 09/21/21 10/05/21 Lite Strips) pen needle, diabetic 31 gauge x #1200 ea 09/21/21 10/05/2110/17 (UltiCare Pen Needle) clonazepam 0.5 mg tablet 0.5 tab PO DAILY 10/05/21 10/05/21 Previous Rx's Medication Instructions Recorded amlodipine 5 mg tablet (Norvasc) 5 mg PO DAILY 30 Days #30 tab 09/09/21 hydrochlorothiazide 25 mg tablet 25 mg PO DAILY 30 Days #30 tab 09/09/21 furosemide 20 mg tablet (Lasix) 20 mg PO DAILY #7 tab 10/07/21 Allergies Allergy/AdvReac Type Severity Reaction Status Date / Time canagliflozin [From Invokana] Allergy Rash Verified 10/14/21 13:49 latex Allergy Itching Verified 10/14/21 13:49 metformin Allergy Hives Verified 10/14/21 13:49 Penicillins Allergy Rash Verified 10/14/21 13:49 sitagliptin [From [facility]] Allergy Rash Verified 10/14/21 13:49 Review of Systems Review of Systems: Constitutional : No Weight loss, No Fever, No Chills, No Fatigue, No Malaise ENT/Mouth : No sore throat, No Rhinorrhea Eyes: No Eye Pain, No Swelling, No Redness Cardiovascular : No Chest Pain, No SOB, No Dyspnea on Exertion, No Orthopnea, pos Edema, No Palpitations Respiratory : No Cough, No Sputum, No Wheezing Gastrointestinal : No Nausea, No Vomiting, No Diarrhea, No Constipation, No abdominal Pain, No Hematochezia, No Melena Genitourinary : No Dysuria, No Urinary Frequency, No Hematuria, Musculoskeletal : No joint pain, No Myalgias, No Joint Swelling Skin : No Skin Lesions, pos rash Neuro : No Weakness, No Numbness, No Dizziness, No Headache Psych : No Anxiety/Panic, No Depression Heme/Lymph: No Bruising, No Bleeding,No Lymphadenopathy Endocrine : No Polyuria, No Polydipsia All other systems reviewed and are negative REPLACED BY [facility] Past Medical History Attestation statement: The following information was validated with the patient. Source: old records reviewed Medical History Choledocholithiasis DMII (diabetes mellitus, type 2) High cholesterol HTN (hypertension) Hydroureteronephrosis Kidney stones Morbid obesity Normocytic anemia Pyelonephritis UTI (urinary tract infection) Surgical History No pertinent past surgical history Family History Family History Mother Coronary artery disease Diabetes Social History Social History Household Members: Significant Other Household Members Other:: 2 Housing: Apartment Do you presently have visiting nurse or other home services: No Alcohol intake: former Patient Tobacco Use Status: Current everyday Tobacco user Tobacco use type: Cigarette Cigarettes Per Day: 10 Second Hand Smoke Exposure: No Substance Use Type: Former Substance User Advance Directives: No service: No Current occupational status: unemployed Physical Exam Vital Signs: Vital Signs: Last Vital Signs Temp 98 F 11/08/21 00:33 Pulse 88 11/08/21 00:33 Resp 16 11/08/21 00:33 BP 133/76 11/08/21 00:33 Pulse Ox 95 11/08/21 00:33 BMI result Body Mass Index 78.2 Appearance: Alert. Oriented X3. No acute distress. Eyes: Pupils equal, round and reactive to light. ENT: Pharynx normal. Neck: Normal inspection. Neck supple. CVS: Normal heart rate and rhythm. Pulses normal. Respiratory: No respiratory distress. Breath sounds normal. Abdomen: Soft and nontender. erythematous mild yeast like appearance with satellite lesions under pannus, obese Skin: Skin warm and dry. Normal skin color. Normal skin turgor. Extremities: pitting 3+ edema of lower extremities, hyperpigmented skin changes, no signs of infection, behind knees yeast infection erythema with satellite lesions noted Neuro: Oriented X 3. No motor deficit. No sensory deficit. Course Course Course Narrative: Patient placed in physician observation at 210am. The indication for observation is that the patient needs more time for possible placement in rehab and DVT study in AM. At this time the patient stable from lab standpoint, lungs clear, CV RRR, abd nontender, neuro is intact. MDM - Extremity (Nontraumatic) MDM Narrative Medical decision making narrative: 51 yo female from home hx of HLD, HTN, prior UTI, DM, morbid obesity, kidney stones, chronic LE edema, chronic respiratory failure on 2L NC, mood disorder, chronic LE edema comes in again with c/o LE edema and she cannot get around home - recent ECHO in September no CHF, she has had monthly DVT studies that are negative, she has some signs of yeast infection of the skin but no cellulitis - will obtain EKG, labs, DVT study in AM (low suspicion) nystatin powder. If no sig lab derangement I did discuss with the patient that she may benefit from rehab given I am not sure how she cares for herself - patient agrees. Lab Data Result diagrams: 11/08/21 01:05 11/08/21 01:05 Labs: Lab Results 11/08/21 11/08/21 11/08/21 Range/Units 01:05 01:05 01:05 WBC 7.1 (4.8-10.8) X10*3/uL RBC 3.51 L (4.20-5.50) X10*6/uL Hgb 8.6 L (12.0-16.0) g/dl Hct 29.6 L (37.0-47.0) % MCV 84.3 (80.0-98.0) fL MCH 24.5 L (27.0-33.0) pg MCHC 29.1 L (31.0-35.0) g/dl RDW 17.1 H (11.0-16.0) % Plt Count 331 D (160-400) X10*3/uL MPV 10.3 (9.4-12.3) fL Immature Gran % (Auto) 0.7 H (0.0-0.4) % Neut % (Auto) 70.3 (45-73) % Lymph % (Auto) 17.3 L (20-40) % [place] % (Auto) 7.6 (2-11) % Eos % (Auto) 3.4 (0-4) % Baso % (Auto) 0.7 (0-2) % Lymph # (Auto) 1.2 (1.2-4.9) X10*3/uL [place] # (Auto) 0.5 (0.1-1.2) X10*3/uL Eos # (Auto) 0.2 (0.0-0.4) X10*3/uL Baso # (Auto) 0.1 (0.0-0.2) X10*3/uL Abs Immat Gran (auto) 0.05 H (0.00-0.03) X10*3/uL Absolute Neuts (auto) 5.0 (2.0-8.3) x10*3/uL Absolute Nucleated RBC 0.000 (0.0-0.012) X10*3/uL Nucleated RBC % (auto) 0.0 (0.0-0.2) /100WBC PT (9.9-13.0) SEC INR (0.9-1.1) Sodium 138 (135-145) mmol/L Potassium 4.3 (3.3-5.1) mmol/L Chloride 100 (96-108) mmol/L Carbon Dioxide 29 (22-29) mmol/L Anion Gap 13 (12-20) BUN 14 (9-16) mg/dL Creatinine 1.25 (0.5-1.4) mg/dL Estim Creat Clear Calc 108.5 Estimated GFR 45 Random Glucose 283 H (60-115) mg/dL Calcium 8.4 (8.4-10.2) mg/dL Magnesium 1.6 (1.6-2.6) mg/dL Total Bilirubin 0.6 (0.0-1.0) mg/dL Direct Bilirubin 0.3 (0.0-0.5) mg/dL AST 9 (5-31) U/L ALT 6 (0-31) U/L Alkaline Phosphatase 154 H (39-117) U/L B-Natriuretic Peptide 74 (<100) pg/mL Total Protein 7.8 D (6.5-8.0) g/dL Albumin 2.6 L (3.5-5.0) g/dL COVID-19 ([facility]) (Negative) COVID-19 Clin Com 11/08/21 11/08/21 Range/Units 01:05 01:05 WBC (4.8-10.8) X10*3/uL RBC (4.20-5.50) X10*6/uL Hgb (12.0-16.0) g/dl Hct (37.0-47.0) % MCV (80.0-98.0) fL MCH (27.0-33.0) pg MCHC (31.0-35.0) g/dl RDW (11.0-16.0) % Plt Count (160-400) X10*3/uL MPV (9.4-12.3) fL Immature Gran % (Auto) (0.0-0.4) % Neut % (Auto) (45-73) % Lymph % (Auto) (20-40) % [place] % (Auto) (2-11) % Eos % (Auto) (0-4) % Baso % (Auto) (0-2) % Lymph # (Auto) (1.2-4.9) X10*3/uL [place] # (Auto) (0.1-1.2) X10*3/uL Eos # (Auto) (0.0-0.4) X10*3/uL Baso # (Auto) (0.0-0.2) X10*3/uL Abs Immat Gran (auto) (0.00-0.03) X10*3/uL Absolute Neuts (auto) (2.0-8.3) x10*3/uL Absolute Nucleated RBC (0.0-0.012) X10*3/uL Nucleated RBC % (auto) (0.0-0.2) /100WBC PT 12.1 (9.9-13.0) SEC INR 1.1 (0.9-1.1) Sodium (135-145) mmol/L Potassium (3.3-5.1) mmol/L Chloride (96-108) mmol/L Carbon Dioxide (22-29) mmol/L Anion Gap (12-20) BUN (9-16) mg/dL Creatinine (0.5-1.4) mg/dL Estim Creat Clear Calc Estimated GFR Random Glucose (60-115) mg/dL Calcium (8.4-10.2) mg/dL Magnesium (1.6-2.6) mg/dL Total Bilirubin (0.0-1.0) mg/dL Direct Bilirubin (0.0-0.5) mg/dL AST (5-31) U/L ALT (0-31) U/L Alkaline Phosphatase (39-117) U/L B-Natriuretic Peptide (<100) pg/mL Total Protein (6.5-8.0) g/dL Albumin (3.5-5.0) g/dL COVID-19 ([facility]) Negative (Negative) COVID-19 Clin Com See Note ECG Data Attestation EKG: I personally reviewed and interpreted this ECG as follows: ECG interpretation date: 11/08/21 ECG interpretation time: 01:18 Interpretation: Rate: 85 Rhythm: NSR [place]: left Normal P waves. Normal ERNESTO. Normal QRS complex. ST T wave : nonspecific no ЮЛИЯ qTC: prolonged prior studies: no acute ischemia The study has been interpreted contemporaneously by me. Discharge Plan Discharge Clinical Impression: Bilateral edema of lower extremity Patient Disposition: Still a Patient Prescriptions: No Action hydrochlorothiazide 25 mg tablet 25 mg PO DAILY 30 Days Qty: 30 0RF amlodipine [Norvasc] 5 mg tablet 5 mg PO DAILY 30 Days Qty: 30 0RF atorvastatin 80 mg tablet 1 tab PO BEDTIME 0RF gabapentin 600 mg tablet 1 tab PO TID 0RF ibuprofen 800 mg tablet 1 tab PO TID PRN (Reason: pain) 0RF aspirin 81 mg tablet,delayed release (DR/EC) 1 tab PO DAILY 0RF trazodone 100 mg tablet 1 - 3 tab PO BEDTIME PRN (Reason: Insomnia) 0RF omeprazole 20 mg capsule,delayed release(DR/EC) 1 cap PO BID@0630,1630 0RF levothyroxine 200 mcg tablet 1 tab PO DAILY@0630 0RF albuterol sulfate [ProAir HFA] 90 mcg/actuation HFA aerosol inhaler 2 puff PO Q4H PRN (Reason: wheezing) 0RF fluoxetine 20 mg capsule 3 cap PO DAILY 0RF insulin lispro [Humalog KwikPen Insulin] 100 unit/mL insulin pen 17 unit subcut DAILY@1200 0RF Rx Instructions: with lunch insulin lispro [Humalog KwikPen Insulin] 100 unit/mL insulin pen 22 unit subcut DAILY@0900,1700 0RF Rx Instructions: give with food Lantus Solostar U-100 Insulin 100 unit/mL (3 mL) insulin pen 54 unit subcut BID 0RF buprenorphine-naloxone [Suboxone] 8-2 mg film 1 strip sublingual TID 0RF loratadine 10 mg tablet 1 tab PO DAILY 0RF clonazepam 0.5 mg tablet 0.5 tab PO DAILY 0RF furosemide [Lasix] 20 mg tablet 20 mg PO DAILY Qty: 7 0RF (DME) pen needle, diabetic [UltiCare Pen Needle] 31 gauge x 5/16 needle See Rx Instructions ea subcut .MEDSUPPLY Qty: 1200 0RF Rx Instructions: As directed (DME) FreeStyle Lite Strips Strip See Rx Instructions ea Not Applicable QID Qty: 10 0RF Rx Instructions: As directed
[2021-11-08 01:11] LABS: MANUAL DIFF FLAG NO
[2021-11-08 01:13] LABS: Basophils Absolute Auto 0.1 X10*3/uL (0.0-0.2); Basophils Percent Auto 0.7 % (0-2); Eosinophils Absolute Auto 0.2 X10*3/uL (0.0-0.4); Eosinophils Percent Auto 3.4 % (0-4); Hematocrit 29.6 % (37.0-47.0); Hemoglobin 8.6 g/dl (12.0-16.0); Imm Gran Abs Auto 0.05 X10*3/uL (0.00-0.03); Imm Gran Pct Auto 0.7 % (0.0-0.4); Lymphocytes Absolute Auto 1.2 X10*3/uL (1.2-4.9); Lymphocytes Percent Auto 17.3 % (20-40); Mean Corpuscular HGB Conc 29.1 g/dl (31.0-35.0); Mean Corpuscular Hemoglobin 24.5 pg (27.0-33.0); Mean Corpuscular Volume 84.3 fL (80.0-98.0); Mean Platelet Volume 10.3 fL (9.4-12.3); Monocytes Absolute Auto 0.5 X10*3/uL (0.1-1.2); Monocytes Percent Auto 7.6 % (2-11); Neutrophils Percent Auto 70.3 % (45-73); Platelet Count 331 X10*3/uL (160-400); Red Blood Count 3.51 X10*6/uL (4.20-5.50); Red Cell Distribution Width 17.1 % (11.0-16.0); White Blood Count 7.1 X10*3/uL (4.8-10.8)
[2021-11-08 01:19] LABS: INTERNATIONAL NORM RATIO 1.1 (0.9-1.1); Prothrombin Time 12.1 SEC (9.9-13.0)
--- NOTE | 2021-11-08 01:28 | PC.NURSE ---
Addendum entered by Sherrell Aburto 11/08/21 03:04: report given to DARIEN Matthews Original Note: unable to pass her nystatin power until 6:30am when pharmacy come to the facility. dr. Hall aware
[2021-11-08 01:33] LABS: B Type Natriuretic Peptide 74 pg/mL (<100); COVID-19 Test Negative (Negative)
[2021-11-08 01:36] LABS: Alanine Aminotransferase 6 U/L (0-31); Albumin Level 2.6 g/dL (3.5-5.0); Alkaline Phosphatase 154 U/L (39-117); Anion Gap 13 (12-20); Aspartate Amino Transferase 9 U/L (5-31); Bilirubin Direct 0.3 mg/dL (0.0-0.5); Bilirubin Total 0.6 mg/dL (0.0-1.0); Blood Urea Nitrogen 14 mg/dL (9-16); Calcium 8.4 mg/dL (8.4-10.2); Carbon Dioxide 29 mmol/L (22-29); Chloride 100 mmol/L (96-108); Creatinine Clr Calc Pharmacy 108.5; Estimated Glomerular Filt Rate 45; Glucose Random 283 mg/dL (60-115); Magnesium 1.6 mg/dL (1.6-2.6); Potassium 4.3 mmol/L (3.3-5.1); Sodium 138 mmol/L (135-145); Total Protein 7.8 g/dL (6.5-8.0)
[2021-11-08 02:36] VITALS: BP 157/85; PULSE 83; RESP 14; TEMP 36.7; O2SAT 97
--- NOTE | 2021-11-08 03:31 | PC.NURSE ---
PT needed to use the bathroom. Unable to ambulate to the bathroom, requested a parsons, but charge nurse suggested a purewick. Purewick put in place by this PCT and ARLET Henriquez.
[2021-11-08 07:13] VITALS: BP 120/81; PULSE 74; RESP 12; O2SAT 97
--- NOTE | 2021-11-08 07:57 | PC.NURSE ---
Pt A&Ox4, no complaints of pain at the moment, asking about daily meds, will ask pharm for a consult. Purewick in place and working appropriately at this time. Repositioned as per pt's request. BLE edema noted, chronic in nature. Call celaya within reach. Will continue to moitor.
--- NOTE | 2021-11-08 08:34 | PHA.MEDREC ---
Pharmacy Consult ? Medication Reconciliation Pharmacy has completed the medication reconciliation. Patient confirmed all medications. Her insulin regimen is very complicated and she check BG for her Lantus. Lantus BG > 200 give 54 units and BG < 200 gives 30 units. Her lispro is a sliding scale between 8 - 17 units. Nicole Cantu, PharmD
[2021-11-08] MEDS: Nystatin Powder 15 GM BOTTLE 1 APPL TOPICAL (09:08)
--- NOTE | 2021-11-08 09:16 | PC.NURSE ---
Pt A &OX4,respirations even and non labored, T7P at this time, nystatin applied to groins, under breast and below knees. PT eval completed, awaiting CM at this time. Call celaya within reach, will continue to monitor.
--- NOTE | 2021-11-08 11:27 | HE.PHANOTE ---
Patient uses a sliding scale of Lantus and high dose SSI of Humalog at home. Spoke with SANDRA Perez to determine best treatment while house in the ED. Patient admitted in Oct, 2021 and the regimen was Humalog 22 unit AM, 17 units @1200, and 22 units PM. Since this kept her BG < 200 on POC we will utilize the same regimen and adjust in necessary. Nicole Cantu, PharmD
[2021-11-08] MEDS: Buprenorphine/Naloxone 8/2 mg FILM 1 FILM SUBLINGUAL ×3 (11:57→21:41)
[2021-11-08] MEDS: amLODIPine Besylate 5 MG TABLET PO (11:58)
[2021-11-08] MEDS: Gabapentin 600 MG TABLET PO ×3 (11:58→21:40)
[2021-11-08] MEDS: Loratadine 10 MG TABLET PO (11:58)
[2021-11-08] MEDS: Aspirin Enteric Coated 81 MG TABLET.DR PO (11:58)
[2021-11-08] MEDS: Furosemide 20 MG TABLET PO (11:58)
[2021-11-08] MEDS: FLUoxetine HCl 20 MG CAPSULE 60 MG PO (11:58)
[2021-11-08 12:00] VITALS: BP 148/86; PULSE 86; RESP 16; O2SAT 99
[2021-11-08] MEDS: Levothyroxine Sodium 200 MCG TABLET PO (12:05)
[2021-11-08] MEDS: clonazePAM 0.5 MG TABLET 0.25 MG PO (12:05)
--- NOTE | 2021-11-08 13:38 | MHC.CM.ED ---
Addendum entered by Lynne Singh 11/08/21 13:54: PASRR Level 1 screen completed and put in [facility]. Original Note: Patient came to the ER due to swollen legs. Work up essentially negative. Physical therapy eval completed. Short term rehab is recommended. Met with patient in regards to discharge planning. Patient is from home with [employer]RA[employer]PER[employer], uses a walker for mobility and has oxygen at home. Patient has not received any Covid vaccines. PCP verified. Patient has been on Suboxone for 6 years. Her provider is Allen Ni at [facility] in [place]. Patient weighs 497lbs. Patient agreeable to short term rehab and understanding placement will be difficult due to weight, not being vaccinated against Covid and being on Suboxone. Referral broadcasted in [facility]. [facility] will need a paper RX of Suboxone. Per Yue at [facility], they don't provide paper prescriptions. Only electronic. [facility] uses [facility] for their pharmacy. [facility] will provide an electronic RX to their pharmacy. [facility] aware. Patient agreeable to [facility] if bed is offered. Continue to monitor for d/c needs.
[2021-11-08] MEDS: Omeprazole 20 MG CAPSULE.DR PO (14:52)
[2021-11-08] MEDS: Insulin Lispro 100 UNIT/ML 3 ML VIAL 22 UNIT SUBCUT (14:57)
[2021-11-08 15:01] LABS: Glucose, Whole Blood 217 mg/dL (60-115)
[2021-11-08] MEDS: Atorvastatin Calcium 80 MG TABLET PO (21:40)
[2021-11-08] MEDS: traZODone HCL 100 MG TABLET 200 MG PO (21:46)
[2021-11-09] VITALS: BP 136/68; PULSE 84; RESP 14; TEMP 36.5; O2SAT 93
[2021-11-09 07:07] VITALS: BP 139/79; PULSE 83; RESP 20; O2SAT 99
[2021-11-09 07:14] LABS: Glucose, Whole Blood 203 mg/dL (60-115)
[2021-11-09] MEDS: FLUoxetine HCl 20 MG CAPSULE 60 MG PO (08:10)
[2021-11-09] MEDS: Buprenorphine/Naloxone 8/2 mg FILM 1 FILM SUBLINGUAL ×3 (08:10→20:30)
[2021-11-09] MEDS: Omeprazole 20 MG CAPSULE.DR PO ×2 (08:11→15:10)
[2021-11-09] MEDS: Aspirin Enteric Coated 81 MG TABLET.DR PO (08:11)
[2021-11-09] MEDS: Loratadine 10 MG TABLET PO (08:12)
[2021-11-09] MEDS: Furosemide 20 MG TABLET PO (08:12)
[2021-11-09] MEDS: amLODIPine Besylate 5 MG TABLET PO (08:12)
[2021-11-09] MEDS: Insulin Lispro 100 UNIT/ML 3 ML VIAL 22 UNIT SUBCUT (08:16)
--- NOTE | 2021-11-09 08:21 | PC.NURSE ---
Pt resting in stretcher, VSS. Medicated per MAR. Pt refusing to take the 22 units of insulin. Pt requesting only 6units to be given instead of the 22 ordered. 6 units given per request. Pt with no complaints, awaiting placement.
[2021-11-09] MEDS: Gabapentin 600 MG TABLET PO ×3 (09:11→20:30)
--- NOTE | 2021-11-09 10:45 | MHC.CM.ED ---
Addendum entered by Lynne Singh 11/09/21 12:28: [facility] able [facility] a bed. Clinical updates sent to facilities that haven't responded in [facility]: [facility], [place], [facility], [facility], [address] [place] [address] and [facility]. Original Note: Patient remains in ER. [facility] is not able to offer a bed at this time. 78 referrals have been made. No bed offers at this time. Due to patient's weight, not being Covid vaccinated and being on Suboxone for 6 years, patient will be difficult to place. Continue to monitor for d/c needs.
[2021-11-09 12:03] VITALS: BP 139/79; PULSE 83; O2SAT 99
[2021-11-09 12:25] VITALS: BP 143/75; PULSE 81; RESP 16; O2SAT 93
[2021-11-09 12:31] LABS: Glucose, Whole Blood 188 mg/dL (60-115)
--- NOTE | 2021-11-09 17:38 | MHC.CM.ED ---
CM met with patient. Explained that we have no bed offers within 100 miles. CM referred out 200 miles. If there are no bed offers tomorrow, CM may need to refer out of state or patient can consider home PT. Pt willing to wait another day to see if any facilities offer a bed and will discuss with CM tomorrow. CM to follow for d/c needs.
[2021-11-09 20:09] VITALS: PULSE 82; O2SAT 97
[2021-11-09 20:27] LABS: Glucose, Whole Blood 240 mg/dL (60-115)
[2021-11-09] MEDS: Atorvastatin Calcium 80 MG TABLET PO (20:30)
[2021-11-09] MEDS: Insulin Lispro 100 UNIT/ML 3 ML VIAL SUBCUT (20:32)
[2021-11-09] MEDS: traZODone HCL 100 MG TABLET 200 MG PO (20:36)
[2021-11-10 01:53] VITALS: BP 152/83; PULSE 84; RESP 17; TEMP 36.5; O2SAT 99
--- NOTE | 2021-11-10 02:48 | PC.NURSE ---
Assist patient with a bed bath and applied powder under armpits, breast and behind knees. Discovered a bed sore on patients bottom inner left side. Nurse aware.
--- NOTE | 2021-11-10 03:47 | PC.NURSE ---
Pt cleaned with [employer] New gown, new sheets, and new pure-wick placed Pt tolerated well Will continue to monitor
--- NOTE | 2021-11-10 06:12 | PC.NURSE ---
At 0530 boost patient with the assistance of another tech.
[2021-11-10 07:24] LABS: Glucose, Whole Blood 278 mg/dL (60-115)
[2021-11-10] MEDS: Omeprazole 20 MG CAPSULE.DR PO ×2 (07:37→18:43)
[2021-11-10] MEDS: FLUoxetine HCl 20 MG CAPSULE 60 MG PO (08:21)
[2021-11-10] MEDS: Furosemide 20 MG TABLET PO (08:21)
[2021-11-10] MEDS: Aspirin Enteric Coated 81 MG TABLET.DR PO (08:21)
[2021-11-10] MEDS: Loratadine 10 MG TABLET PO (08:21)
[2021-11-10] MEDS: amLODIPine Besylate 5 MG TABLET PO (08:21)
[2021-11-10] MEDS: Gabapentin 600 MG TABLET PO ×3 (08:21→23:29)
[2021-11-10] MEDS: Buprenorphine/Naloxone 8/2 mg FILM 1 FILM SUBLINGUAL ×3 (08:22→23:28)
[2021-11-10] MEDS: Insulin Lispro 100 UNIT/ML 3 ML VIAL SUBCUT ×4 (08:22→23:29)
[2021-11-10 08:26] VITALS: BP 150/75; PULSE 86; RESP 18; O2SAT 96
[2021-11-10] MEDS: Levothyroxine Sodium 200 MCG TABLET PO (08:53)
[2021-11-10 12:20] LABS: Glucose, Whole Blood 263 mg/dL (60-115)
--- NOTE | 2021-11-10 13:44 | MHC.CM.ED ---
Patient remains in ER. 103 referrals have been made. No bed offers made yet. Spoke with Safia of [facility]. Referral made to [facility] in [place] at Safia's recommendation. Referral made in [employer]. Continue to monitor for d/c needs.
[2021-11-10 15:38] VITALS: BP 147/84; PULSE 82; RESP 16; TEMP 36.7; O2SAT 97
[2021-11-10 18:48] LABS: Glucose, Whole Blood 252 mg/dL (60-115)
--- NOTE | 2021-11-10 18:49 | PC.NURSE ---
medicated per provider order. pt readjusted in bed.
[2021-11-10 22:00] VITALS: PULSE 87; RESP 14
[2021-11-10 22:19] LABS: Glucose, Whole Blood 265 mg/dL (60-115)
[2021-11-10 22:34] LABS: Appearance Urine HAZY; Color Urine YELLOW; Glucose Urine UA NEG (NEG); Leukocyte Esterase Urine TRACE (NEG); Nitrite Urine NEG (NEG); Specific Gravity - Urine 1.015 (1.005-1.025); UACC Culture Trigger NO; Urine Blood 3+ (NEG); Urine Ketones NEG (NEG); Urine Protein 2+ MG/DL (NEG-TRACE)
[2021-11-10 22:53] LABS: Bacteria Urine 4+ /LPF; Squamous Epithelial Cell Urine 1+ /LPF; Triple Phosphate Crystal Urine TRACE /LPF; WBC Urine 0-2 /HPF (0-4)
[2021-11-10] MEDS: Ibuprofen 800 MG TABLET PO (23:28)
[2021-11-10] MEDS: Atorvastatin Calcium 80 MG TABLET PO (23:29)
[2021-11-10] MEDS: traZODone HCL 100 MG TABLET 200 MG PO (23:39)
--- NOTE | 2021-11-10 23:41 | PC.NURSE ---
medicated per provider order.
[2021-11-11 00:18] VITALS: BP 147/83; PULSE 85; RESP 16; O2SAT 97
[2021-11-11 07:20] LABS: Glucose, Whole Blood 235 mg/dL (60-115)
[2021-11-11] MEDS: Levothyroxine Sodium 200 MCG TABLET PO (07:24)
[2021-11-11] MEDS: Loratadine 10 MG TABLET PO (07:24)
[2021-11-11] MEDS: FLUoxetine HCl 20 MG CAPSULE 60 MG PO (07:24)
[2021-11-11] MEDS: Omeprazole 20 MG CAPSULE.DR PO ×2 (07:24→16:41)
[2021-11-11] MEDS: Gabapentin 600 MG TABLET PO ×3 (07:24→21:04)
[2021-11-11] MEDS: Buprenorphine/Naloxone 8/2 mg FILM 1 FILM SUBLINGUAL ×3 (07:24→21:04)
[2021-11-11] MEDS: Aspirin Enteric Coated 81 MG TABLET.DR PO (07:24)
[2021-11-11] MEDS: amLODIPine Besylate 5 MG TABLET PO (07:25)
[2021-11-11] MEDS: Furosemide 20 MG TABLET PO (07:25)
[2021-11-11] MEDS: Insulin Lispro 100 UNIT/ML 3 ML VIAL SUBCUT ×4 (07:26→21:04)
[2021-11-11 10:53] VITALS: BP 151/124; PULSE 83; RESP 22; O2SAT 96
[2021-11-11 11:02] LABS: Glucose, Whole Blood 254 mg/dL (60-115)
--- NOTE | 2021-11-11 11:37 | MHC.CM.ED ---
Addendum entered by Lynne Singh 11/11/21 11:46: Referral broadcasted to the following LTAC's:[facility], [facility], [facility], [facility], [facility], [facility], and [facility]. Original Note: Patient remains in ER. [facility] requesting updated physical therapy note and requesting to know how many people it takes to get patient out of bed. Updated clinical sent via [facility]. Also explained patient hasn't been able to get OOB, just sit on the edge of the bed. Continue to monitor for d/c needs.
[2021-11-11 12:20] LABS: Glucose, Whole Blood 242 mg/dL (60-115)
[2021-11-11 12:31] VITALS: BP 136/72; PULSE 79; RESP 16; O2SAT 94
[2021-11-11 20:00] VITALS: BP 141/72; PULSE 84; RESP 14; O2SAT 95
[2021-11-11] MEDS: Atorvastatin Calcium 80 MG TABLET PO (21:04)
[2021-11-11 21:39] LABS: Glucose, Whole Blood 301 mg/dL (60-115)
[2021-11-11 22:59] LABS: Glucose, Whole Blood 256 mg/dL (60-115)
[2021-11-12] MEDS: Omeprazole 20 MG CAPSULE.DR PO ×2 (06:30→17:53)
[2021-11-12 07:27] VITALS: BP 167/86; PULSE 84; RESP 16; TEMP 36.9; O2SAT 97
[2021-11-12 07:47] LABS: Glucose, Whole Blood 280 mg/dL (60-115)
[2021-11-12] MEDS: Insulin Lispro 100 UNIT/ML 3 ML VIAL SUBCUT ×4 (08:01→22:05)
[2021-11-12] MEDS: Furosemide 20 MG TABLET PO (08:06)
[2021-11-12] MEDS: Gabapentin 600 MG TABLET PO ×3 (08:06→22:05)
[2021-11-12] MEDS: amLODIPine Besylate 5 MG TABLET PO (08:06)
[2021-11-12] MEDS: Buprenorphine/Naloxone 8/2 mg FILM 1 FILM SUBLINGUAL ×3 (08:06→22:05)
[2021-11-12] MEDS: Loratadine 10 MG TABLET PO (08:06)
[2021-11-12] MEDS: Ibuprofen 800 MG TABLET PO (08:07)
[2021-11-12] MEDS: Aspirin Enteric Coated 81 MG TABLET.DR PO (08:07)
[2021-11-12] MEDS: FLUoxetine HCl 20 MG CAPSULE 60 MG PO (08:07)
--- NOTE | 2021-11-12 09:46 | MHC.CM.ED ---
Patient remains in ER. [facility] in [place] is still reviewing. No bed offers from LTAC or other detention facilities. Continue to monitor for d/c needs.
[2021-11-12 12:37] VITALS: BP 137/72; PULSE 74; RESP 19; TEMP 36.6; O2SAT 96
[2021-11-12 13:23] LABS: Glucose, Whole Blood 269 mg/dL (60-115)
[2021-11-12 14:06] LABS: MANUAL DIFF FLAG NO
[2021-11-12 14:23] LABS: Anion Gap 11 (12-20); Blood Urea Nitrogen 17 mg/dL (9-16); Calcium 8.7 mg/dL (8.4-10.2); Carbon Dioxide 33 mmol/L (22-29); Chloride 96 mmol/L (96-108); Estimated Glomerular Filt Rate 51; Glucose Random 275 mg/dL (60-115); Potassium 4.8 mmol/L (3.3-5.1); Sodium 135 mmol/L (135-145)
[2021-11-12 14:27] LABS: Basophils Absolute Auto 0.1 X10*3/uL (0.0-0.2); Basophils Percent Auto 0.7 % (0-2); Eosinophils Absolute Auto 0.3 X10*3/uL (0.0-0.4); Eosinophils Percent Auto 3.9 % (0-4); Hematocrit 26.7 % (37.0-47.0); Hemoglobin 7.9 g/dl (12.0-16.0); Imm Gran Abs Auto 0.04 X10*3/uL (0.00-0.03); Imm Gran Pct Auto 0.5 % (0.0-0.4); Lymphocytes Absolute Auto 1.6 X10*3/uL (1.2-4.9); Lymphocytes Percent Auto 21.4 % (20-40); Mean Corpuscular HGB Conc 29.6 g/dl (31.0-35.0); Mean Corpuscular Hemoglobin 24.6 pg (27.0-33.0); Mean Corpuscular Volume 83.2 fL (80.0-98.0); Mean Platelet Volume 10.3 fL (9.4-12.3); Monocytes Absolute Auto 0.6 X10*3/uL (0.1-1.2); Monocytes Percent Auto 7.9 % (2-11); Neutrophils Absolute Auto 4.9 x10*3/uL (2.0-8.3); Neutrophils Percent Auto 65.6 % (45-73); Platelet Count 320 X10*3/uL (160-400); Red Blood Count 3.21 X10*6/uL (4.20-5.50); Red Cell Distribution Width 17.1 % (11.0-16.0); White Blood Count 7.5 X10*3/uL (4.8-10.8)
--- NOTE | 2021-11-12 14:36 | P.HPHOSP_ITS ---
History of Present Illness Date of Service: 11/12/21 Chief Complaint: leg swelling 51-year-old woman presenting to the ER on December 08 with lower extremity edema. She initially had a DVT study which was negative and the plan was for her to be placed in a short-term rehab however there was difficulty due to her morbid obesity and un vaccinated status for COVID. Over the last several days she has seemed to be stable however today she was found to have some swelling to her abdomen and an abdominal CT scan was obtained which showed right-sided hydronephrosis and proximal ureteral dilatation. In August of 2021 she did undergo cystoscopy with right stent placement, therefore she has had these issues in the past. in the ER, hemoglobin hematocrit appear to be low at 7.9 and 26.7 with no overt bleeding, all other labs within acceptable limits, vital signs stable, hemodynamically stable. She will be admitted for further management and treatment of acute hydronephrosis with UTI. Review of Systems Review of Systems: Denies any recent fever chills or decrease in appetite respiratory denies any shortness of breath coverage production cardiovascular denies chest pain gastrointestinal denies any dysphagia abdominal pain nausea vomiting, reported some loose stool, morbid obesity genitourinary denies any dysuria frequency or hematuria musculoskeletal denies any joint pain or swelling neuropsych denies any weakness or seizures all other systems reviewed are negative [facility] Medical History Choledocholithiasis DMII (diabetes mellitus, type 2) High cholesterol HTN (hypertension) Hydroureteronephrosis Kidney stones Morbid obesity Normocytic anemia Pyelonephritis UTI (urinary tract infection) Family History Mother Coronary artery disease Diabetes Surgical History No pertinent past surgical history Social History Household Members: Significant Other Household Members Other:: 2 Housing: Apartment Do you presently have visiting nurse or other home services: No Alcohol intake: current Alcohol intake frequency: a few times a month Alcohol type: beer Patient Tobacco Use Status: Current everyday Tobacco user Tobacco use type: Cigarette Cigarettes Per Day: 5 Years Smoked: 41 Second Hand Smoke Exposure: No Substance Use Type: Former Substance User service: No Current occupational status: unemployed Meds Allergies Allergy/AdvReac Type Severity Reaction Status Date / Time canagliflozin [From Invokana] Allergy Rash Verified 10/14/21 13:49 latex Allergy Itching Verified 10/14/21 13:49 metformin Allergy Hives Verified 10/14/21 13:49 Penicillins Allergy Rash Verified 10/14/21 13:49 sitagliptin [From Junuv] Allergy Rash Verified 10/14/21 13:49 Active Medications: Current Medications Albuterol Sulfate (Albuterol Sulfate 90 Mcg 8 Gm Inhaler) 2 puff INHALE Q4H PRN PRN Reason: wheezing Amlodipine Besylate (Amlodipine Besylate 5 Mg Tablet) 5 mg PO DAILY [facility]; Protocol Last Admin: 11/12/21 08:06 Dose: 5 mg Aspirin (Aspirin Enteric Coated 81 Mg Tablet.Dr) 81 mg PO DAILY [facility] Last Admin: 11/12/21 08:07 Dose: 81 mg Atorvastatin Calcium (Atorvastatin Calcium 80 Mg Tablet) 80 mg PO BEDTIME [facility] Last Admin: 11/11/21 21:04 Dose: 80 mg Buprenorphine/Naloxone (Buprenorphine/Naloxone 8/2 Mg Film) 1 film SUBLINGUAL TID [facility] Last Admin: 11/12/21 08:06 Dose: 1 film Clonazepam (Clonazepam 0.5 Mg Tablet) 0.25 mg PO DAILY PRN PRN Reason: Anxiety Last Admin: 11/08/21 12:05 Dose: 0.25 mg Fluoxetine HCl (Fluoxetine Hcl 20 Mg Capsule) 60 mg PO DAILY [facility] Last Admin: 11/12/21 08:07 Dose: 60 mg Furosemide (Furosemide 20 Mg Tablet) 20 mg PO DAILY [facility]; Protocol Last Admin: 11/12/21 08:06 Dose: 20 mg Gabapentin (Gabapentin 600 Mg Tablet) 600 mg PO TID [facility] Last Admin: 11/12/21 08:06 Dose: 600 mg Ibuprofen (Ibuprofen 800 Mg Tablet) 800 mg PO TID PRN PRN Reason: Pain, Mild (Pain Scale 1-3) Last Admin: 11/12/21 08:07 Dose: 800 mg Insulin Human Lispro (Insulin Lispro 100 Unit/Ml 3 Ml Vial) 0 unit SUBCUT QIDACHS [facility]; Protocol Last Admin: 11/12/21 14:06 Dose: 6 unit Levothyroxine Sodium (Levothyroxine Sodium 200 Mcg Tablet) 200 mcg PO DAILY@0630 [facility] Last Admin: 11/12/21 06:40 Dose: Not Given Loratadine (Loratadine 10 Mg Tablet) 10 mg PO DAILY [facility] Last Admin: 11/12/21 08:06 Dose: 10 mg Omeprazole (Omeprazole 20 Mg Capsule.) 20 mg PO BID@0630,1630 [facility] Last Admin: 11/12/21 06:30 Dose: 20 mg Pharmacy Consult (Consult Rx Perform Med Rec) 1 each MISCELLANE ONCE PRN PRN Reason: Consult order Trazodone HCl (Trazodone Hcl 100 Mg Tablet) 200 mg PO BEDTIME PRN PRN Reason: Insomnia Last Admin: 11/10/21 23:39 Dose: 200 mg Home Medications Medication Instructions Recorded Confirmed Last Taken Type albuterol sulfate 90 mcg/actuation 2 puff PO Q4H PRN wheezing 08/13/21 11/08/21 11/07/21 History aerosol inhaler (ProAir HFA) aspirin 81 mg tablet,delayed 1 tab PO DAILY 08/13/21 11/08/21 11/07/21 History release atorvastatin 80 mg tablet 1 tab PO BEDTIME 08/13/21 11/08/21 11/07/21 History buprenorphine 8 mg-naloxone 2 mg 1 strip sublingual TID 08/13/21 11/08/21 History sublingual film (Suboxone) fluoxetine 20 mg capsule 3 cap PO DAILY 08/13/21 11/08/21 11/07/21 History gabapentin 600 mg tablet 1 tab PO TID 08/13/21 11/08/21 11/07/21 History insulin glargine 100 unit/mL (3 22 - 54 unit subcut BID 08/13/21 11/08/21 11/07/21 History mL) subcutaneous pen (Lantus Solostar U-100 Insulin) insulin lispro 100 unit/mL 8 - 17 unit subcut TIDAC 08/13/21 11/08/21 11/07/21 History subcutaneous pen (Humalog KwikPen (U-100) Insulin) loratadine 10 mg tablet 1 tab PO DAILY 08/13/21 11/08/21 11/07/21 History omeprazole 20 mg capsule,delayed 1 cap PO BID@0630,1630 08/13/21 11/08/21 11/07/21 History release trazodone 100 mg tablet 2 tab PO BEDTIME PRN Insomnia 08/13/21 11/08/21 11/07/21 History blood sugar diagnostic (FreeStyle #10 ea 09/21/21 11/08/21 11/07/21 History Lite Strips) pen needle, diabetic 31 gauge x #1,200 ea 09/21/21 11/08/21 11/07/21 History 5/16 (UltiCare Pen Needle) clonazepam 0.5 mg tablet 0.5 tab PO DAILY PRN Anxiety 10/05/21 11/08/21 11/07/21 History Physical Exam Vital Signs and Narrative: Vital Signs: Last Vital Signs Temp 97.9 F 11/12/21 12:37 Pulse 74 11/12/21 12:37 Resp 19 11/12/21 12:37 BP 137/72 11/12/21 12:37 Pulse Ox 96 11/12/21 12:37 O2 Del Method 11/12/21 12:37 O2 Flow Rate 2 11/12/21 12:37 BMI result Body Mass Index 78.2 Appearing in no acute distress head is normocephalic atraumatic eyes pupils are PERRLA sclera is anicteric mouth throat mucous membranes are intact and moist neck is supple no lymphadenopathy, no JVD noted lung sounds are clear to auscultation heart regular rate rhythm, clear S1, S2 positive bowel sounds, abdomen is soft, nontender, large abdomen neuro patient is alert x3, no focal deficits Lower extremities with chronic skin changes and hard chronic edema Results Labs CBC and Chem 7: 11/15/21 06:10 11/26/21 06:01 Labs: Laboratory Results - last 24 hr 11/11/21 11/11/21 11/12/21 16:40 20:56 07:43 MCV MCH MCHC RDW Plt Count MPV Immature Gran % (Auto) Neut % (Auto) Lymph % (Auto) [place] % (Auto) Eos % (Auto) Baso % (Auto) Lymph # (Auto) [place] # (Auto) Eos # (Auto) Baso # (Auto) Abs Immat Gran (auto) Absolute Neuts (auto) Absolute Nucleated RBC Nucleated RBC % (auto) Anion Gap Estim Creat Clear Calc Estimated GFR POC Glucose 301 H 256 H 280 H Random Glucose Calcium 11/12/21 11/12/21 11/12/21 13:13 14:01 14:01 MCV 83.2 MCH 24.6 L MCHC 29.6 L RDW 17.1 H Plt Count 320 MPV 10.3 Immature Gran % (Auto) 0.5 H Neut % (Auto) 65.6 Lymph % (Auto) 21.4 [place] % (Auto) 7.9 Eos % (Auto) 3.9 Baso % (Auto) 0.7 Lymph # (Auto) 1.6 [place] # (Auto) 0.6 Eos # (Auto) 0.3 Baso # (Auto) 0.1 Abs Immat Gran (auto) 0.04 H Absolute Neuts (auto) 4.9 Absolute Nucleated RBC 0.000 Nucleated RBC % (auto) 0.0 Anion Gap 11 L Estim Creat Clear Calc 121.0 Estimated GFR 51 POC Glucose 269 H Random Glucose 275 H Calcium 8.7 Imaging Radiologist's Impressions: Impressions Abdomen/Pelvis CT 11/12/21 11:36 IMPRESSION: Right-sided hydronephrosis and proximal ureteral dilatation. High attenuation in the right renal collecting system. Differential would include hemorrhage, infection/fungus ball, stone and mass. 2 x 3 cm right renal cyst. Diffuse stranding of the subcutaneous fat in the bilateral abdominal wall and skin thickening, right greater than left. No focal fluid collection seen. This may represent edema or cellulitis. Clinical correlation recommended. Shotty retroperitoneal and bilateral inguinal lymphadenopathy. Gallstones. Fleischner guidelines were followed. Assessment and Plan (1) Bilateral edema of lower extremity: Status: Acute Plan 51-year-old woman initially presented to the ER with lower extremity swelling, the plan was to place her in short-term rehab however after several days patient was noted to have some swelling in her abdomen and abdominal CT showed hydronephrosis, therefore was requested that patient be admitted for further management. unvaccinated. Hydronephrosis. Some chronic changes Urology consultation Follow cultures Follow BMP closely, creatinine UTI check urine cx Rocephin Chronic lower extremity edema doppler us neg for dvt chronic may use tiana wraps Normocytic anemia No signs of bleeding Check occult stool Check iron studies Type and screen Follow CBC Diabetes mellitus Sliding scale, ADA diet Continue long-acting insulin Mental health Continue home medications Hypothyroidism Continue levothyroxine Hypertension Stable blood pressure continue amlodipine COPD/asthma Continue respiratory treatments as needed Hyperlipidemia Continue aspirin and statin GERD Continue PPI Morbid obesity. BMI 78.3 Discussed the importance of weight management as this is likely contributing to worsening of other comorbidities DVT prophylaxis with heparin Full code Attending Dr. Garcias Quality Stroke Does the patient have a stroke diagnosis?: No VTE Prior VTE?: No VTE Risk Level:: Medical - moderate - high VTE Device Contraindication: Treatment Not Indicated VTE Drug Contraindication: N/A - Med Ordered
--- NOTE | 2021-11-12 15:43 | PC.NURSE ---
phlebotomy at bedside to draw pt labs including fungal culture and type and screen. did not draw as the oders could not be found. call placed to lab to obtain fungus lab tube to draw by ED PCT
[2021-11-12 16:13] LABS: Iron 35 mcg/dL (30-160); Percent Iron Saturation 15 % (15-50); Total Iron Binding Capacity 231 mcg/dL (228-428); Unsaturated Iron Binding 196 ug/dL
[2021-11-12] MEDS: cefTRIAXone sodium 2 GM in 0.9 % Sodium Chloride 50 ML IV (17:54)
[2021-11-12 18:35] LABS: Glucose, Whole Blood 287 mg/dL (60-115)
[2021-11-12 20:00] VITALS: BP 138/78; PULSE 80; RESP 18; TEMP 36.5; O2SAT 99
[2021-11-12 20:46] LABS: Influenza A PCR NEGATIVE (Negative); Influenza B PCR NEGATIVE (Negative); Resp Syncy Virus RNA Qual PCR NEGATIVE (Negative); SARS COV2 PCR INHOUSE NEGATIVE (Negative)
[2021-11-12 21:54] LABS: Glucose, Whole Blood 236 mg/dL (60-115)
[2021-11-12] MEDS: 0.9 % Sodium Chloride Flush 3 ML SYRINGE IVFLUSH (22:05)
[2021-11-12] MEDS: Atorvastatin Calcium 80 MG TABLET PO (22:05)
[2021-11-12] MEDS: traZODone HCL 100 MG TABLET 200 MG PO (22:06)
[2021-11-12 23:49] VITALS: BP 140/81; PULSE 79; RESP 18; TEMP 36.8; O2SAT 96
[2021-11-13] VITALS (9 sets, daily range): BP systolic 118–153; BP diastolic 64–87; PULSE 73–83; RESP 16–24; TEMP 36.1–36.9; O2SAT 97–99
[2021-11-13] MEDS: Ibuprofen 800 MG TABLET PO ×3 (02:40→21:30)
[2021-11-13] MEDS: Levothyroxine Sodium 200 MCG TABLET PO (05:55)
[2021-11-13] MEDS: Omeprazole 20 MG CAPSULE.DR PO ×2 (05:55→16:38)
[2021-11-13 06:51] LABS: Hematocrit 26.4 % (37.0-47.0); Hemoglobin 7.5 g/dl (12.0-16.0); Mean Corpuscular HGB Conc 28.4 g/dl (31.0-35.0); Mean Corpuscular Hemoglobin 23.9 pg (27.0-33.0); Mean Corpuscular Volume 84.1 fL (80.0-98.0); Mean Platelet Volume 10.3 fL (9.4-12.3); Platelet Count 304 X10*3/uL (160-400); Red Blood Count 3.14 X10*6/uL (4.20-5.50); Red Cell Distribution Width 17.1 % (11.0-16.0); White Blood Count 6.7 X10*3/uL (4.8-10.8)
[2021-11-13 07:21] LABS: Anion Gap 12 (12-20); Blood Urea Nitrogen 19 mg/dL (9-16); Calcium 8.7 mg/dL (8.4-10.2); Carbon Dioxide 31 mmol/L (22-29); Chloride 96 mmol/L (96-108); Estimated Glomerular Filt Rate 51; Glucose Random 229 mg/dL (60-115); Potassium 4.9 mmol/L (3.3-5.1); Sodium 134 mmol/L (135-145)
[2021-11-13 07:31] LABS: Glucose, Whole Blood 197 mg/dL (60-115)
[2021-11-13] MEDS: Insulin Lispro 100 UNIT/ML 3 ML VIAL SUBCUT ×4 (07:47→21:05)
[2021-11-13] MEDS: Acetaminophen 325 MG TABLET 650 MG PO (07:49)
[2021-11-13] MEDS: amLODIPine Besylate 5 MG TABLET PO (07:50)
[2021-11-13] MEDS: Furosemide 20 MG TABLET PO (07:50)
[2021-11-13] MEDS: Loratadine 10 MG TABLET PO (07:50)
[2021-11-13] MEDS: FLUoxetine HCl 20 MG CAPSULE 60 MG PO (07:50)
[2021-11-13] MEDS: Buprenorphine/Naloxone 8/2 mg FILM 1 FILM SUBLINGUAL ×3 (07:50→21:05)
[2021-11-13] MEDS: Gabapentin 600 MG TABLET PO ×3 (07:50→21:05)
[2021-11-13] MEDS: Aspirin Enteric Coated 81 MG TABLET.DR PO (07:50)
[2021-11-13] MEDS: 0.9 % Sodium Chloride Flush 3 ML SYRINGE IVFLUSH ×3 (07:51→23:31)
--- NOTE | 2021-11-13 09:02 | P.PNIM_ITS ---
Subjective Subjective Date of Service: 11/13/21 <Ashleigh Romero NP - Last Filed: 11/13/21 09:13> 11/27/21 <Qamar Garcias MD - Last Filed: 11/27/21 10:32> Review of Systems Follow up hydronephrosis having some pain to her left knee feels unwell <Ashleigh Romero NP - Last Filed: 11/13/21 09:13> Physical Exam Vital Signs: Vital Signs: Last Vital Signs Temp 97.2 F 11/13/21 07:18 Pulse 76 11/13/21 07:18 Resp 18 11/13/21 07:18 BP 121/64 11/13/21 07:18 Pulse Ox 97 11/13/21 07:18 O2 Del Method 11/13/21 07:18 O2 Flow Rate 2 11/13/21 07:18 BMI result Body Mass Index 78.2 <Ashleigh Romero NP - Last Filed: 11/13/21 09:13> Appearing in no acute distress lung sounds are clear to auscultation heart regular rate rhythm, clear S1, S2 positive bowel sounds, abdomen is soft, nontender, obese neuro patient is alert x3, no focal deficits <Ashleigh Romero NP - Last Filed: 11/13/21 09:13> Objective Data Active Medications Acetaminophen (Acetaminophen 325 Mg Tablet) 650 mg PO Q6H PRN PRN Reason: Pain, Mild (Pain Scale 1-3) Last Admin: 11/13/21 07:49 Dose: 650 mg Documented By: JENNY Albuterol Sulfate (Albuterol Sulfate 90 Mcg 8 Gm Inhaler) 2 puff INHALE Q4H PRN PRN Reason: wheezing Amlodipine Besylate (Amlodipine Besylate 5 Mg Tablet) 5 mg PO DAILY [facility]; Protocol Last Admin: 11/13/21 07:50 Dose: 5 mg Documented By: JENNY Aspirin (Aspirin Enteric Coated 81 Mg Tablet.) 81 mg PO DAILY [facility] Last Admin: 11/13/21 07:50 Dose: 81 mg Documented By: JENNY Atorvastatin Calcium (Atorvastatin Calcium 80 Mg Tablet) 80 mg PO BEDTIME [facility] Last Admin: 11/12/21 22:05 Dose: 80 mg Documented By: ALEJANDRA Buprenorphine/Naloxone (Buprenorphine/Naloxone 8/2 Mg Film) 1 film SUBLINGUAL TID [facility] Last Admin: 11/13/21 07:50 Dose: 1 film Documented By: JENNY Clonazepam (Clonazepam 0.5 Mg Tablet) 0.25 mg PO DAILY PRN PRN Reason: Anxiety Last Admin: 11/08/21 12:05 Dose: 0.25 mg Documented By: JHON Fluoxetine HCl (Fluoxetine Hcl 20 Mg Capsule) 60 mg PO DAILY [facility] Last Admin: 11/13/21 07:50 Dose: 60 mg Documented By: JENNY Furosemide (Furosemide 20 Mg Tablet) 20 mg PO DAILY [facility]; Protocol Last Admin: 11/13/21 07:50 Dose: 20 mg Documented By: JENNY Gabapentin (Gabapentin 600 Mg Tablet) 600 mg PO TID [facility] Last Admin: 11/13/21 07:50 Dose: 600 mg Documented By: JENNY Ceftriaxone Sodium 2 gm/ (Sodium Chloride) 50 mls @ 100 mls/hr IV Q24H [facility] Last Infusion: 11/12/21 18:25 Dose: 0 mls/hr Documented By: LAKHWINDER Ibuprofen (Ibuprofen 800 Mg Tablet) 800 mg PO TID PRN PRN Reason: Pain, Mild (Pain Scale 1-3) Last Admin: 11/13/21 02:40 Dose: 800 mg Documented By: ALEJANDRA Insulin Human Lispro (Insulin Lispro 100 Unit/Ml 3 Ml Vial) 0 unit SUBCUT QIDACHS [facility]; Protocol Last Admin: 11/13/21 07:47 Dose: 2 unit Documented By: JENNY Levothyroxine Sodium (Levothyroxine Sodium 200 Mcg Tablet) 200 mcg PO DAILY@0630 [facility] Last Admin: 11/13/21 05:55 Dose: 200 mcg Documented By: ALEJANDRA Loratadine (Loratadine 10 Mg Tablet) 10 mg PO DAILY [facility] Last Admin: 11/13/21 07:50 Dose: 10 mg Documented By: JENNY Omeprazole (Omeprazole 20 Mg Capsule.) 20 mg PO BID@0630,1630 [facility] Last Admin: 11/13/21 05:55 Dose: 20 mg Documented By: ALEJANDRA Ondansetron HCl (Ondansetron Hcl 4 Mg/2 Ml Vial) 4 mg IVPUSH Q8H PRN PRN Reason: Nausea and Vomiting Pharmacy Consult (Consult Rx Perform Med Rec) 1 each MISCELLANE ONCE PRN PRN Reason: Consult order Sodium Chloride (0.9 % Sodium Chloride Flush 3 Ml Syringe) 3 ml IVFLUSH QSHIFT [facility] Last Admin: 11/13/21 07:51 Dose: 3 ml Documented By: JENNY Trazodone HCl (Trazodone Hcl 100 Mg Tablet) 200 mg PO BEDTIME PRN PRN Reason: Insomnia Last Admin: 11/12/21 22:06 Dose: 200 mg Documented By: ALEJANDRA <Ashleigh Romero NP - Last Filed: 11/13/21 09:13> Labs CBC & Chem 7: : 11/15/21 06:10 11/26/21 06:01 <Ashleigh Romero NP - Last Filed: 11/13/21 09:13> Labs: Laboratory Results - last 24 hr 11/12/21 11/12/21 11/12/21 13:13 14:01 14:01 MCV 83.2 MCH 24.6 L MCHC 29.6 L RDW 17.1 H Plt Count 320 MPV 10.3 Immature Gran % (Auto) 0.5 H Neut % (Auto) 65.6 Lymph % (Auto) 21.4 Grimes % (Auto) 7.9 Eos % (Auto) 3.9 Baso % (Auto) 0.7 Lymph # (Auto) 1.6 Grimes # (Auto) 0.6 Eos # (Auto) 0.3 Baso # (Auto) 0.1 Abs Immat Gran (auto) 0.04 H Absolute Neuts (auto) 4.9 Absolute Nucleated RBC 0.000 Nucleated RBC % (auto) 0.0 Anion Gap 11 L Estim Creat Clear Calc 121.0 Estimated GFR 51 POC Glucose 269 H Random Glucose 275 H Calcium 8.7 Iron TIBC % Saturation Unsat Iron Binding Influenza Type A (PCR) Influenza Type B (PCR) RSV RNA Qual (PCR) SARS-CoV-2 RNA (RT-PCR) Blood Type Antibody Screen Crossmatch 11/12/21 11/12/21 11/12/21 15:29 18:03 18:28 MCV MCH MCHC RDW Plt Count MPV Immature Gran % (Auto) Neut % (Auto) Lymph % (Auto) Grimes % (Auto) Eos % (Auto) Baso % (Auto) Lymph # (Auto) Grimes # (Auto) Eos # (Auto) Baso # (Auto) Abs Immat Gran (auto) Absolute Neuts (auto) Absolute Nucleated RBC Nucleated RBC % (auto) Anion Gap Estim Creat Clear Calc Estimated GFR POC Glucose 287 H Random Glucose Calcium Iron 35 TIBC 231 % Saturation 15 Unsat Iron Binding 196 Influenza Type A (PCR) Influenza Type B (PCR) RSV RNA Qual (PCR) SARS-CoV-2 RNA (RT-PCR) Blood Type A Positive Antibody Screen NEGATIVE Crossmatch See Detail 11/12/21 11/12/21 11/13/21 18:31 21:49 06:29 MCV 84.1 MCH 23.9 L MCHC 28.4 L RDW 17.1 H Plt Count 304 MPV 10.3 Immature Gran % (Auto) Neut % (Auto) Lymph % (Auto) Grimes % (Auto) Eos % (Auto) Baso % (Auto) Lymph # (Auto) Grimes # (Auto) Eos # (Auto) Baso # (Auto) Abs Immat Gran (auto) Absolute Neuts (auto) Absolute Nucleated RBC 0.000 Nucleated RBC % (auto) 0.0 Anion Gap Estim Creat Clear Calc Estimated GFR POC Glucose 236 H Random Glucose Calcium Iron TIBC % Saturation Unsat Iron Binding Influenza Type A (PCR) NEGATIVE Influenza Type B (PCR) NEGATIVE RSV RNA Qual (PCR) NEGATIVE SARS-CoV-2 RNA (RT-PCR) NEGATIVE Blood Type Antibody Screen Crossmatch 11/13/21 11/13/21 06:29 07:16 MCV MCH MCHC RDW Plt Count MPV Immature Gran % (Auto) Neut % (Auto) Lymph % (Auto) Grimes % (Auto) Eos % (Auto) Baso % (Auto) Lymph # (Auto) Grimes # (Auto) Eos # (Auto) Baso # (Auto) Abs Immat Gran (auto) Absolute Neuts (auto) Absolute Nucleated RBC Nucleated RBC % (auto) Anion Gap 12 Estim Creat Clear Calc 120.0 Estimated GFR 51 POC Glucose 197 H Random Glucose 229 H Calcium 8.7 Iron TIBC % Saturation Unsat Iron Binding Influenza Type A (PCR) Influenza Type B (PCR) RSV RNA Qual (PCR) SARS-CoV-2 RNA (RT-PCR) Blood Type Antibody Screen Crossmatch <Ashleigh Romero NP - Last Filed: 11/13/21 09:13> Assessment and Plan (1) Acute respiratory failure with hypoxia: Status: Resolved <Ashleigh Romero NP - Last Filed: 11/13/21 09:13> (2) UTI (urinary tract infection): (3) RADHIKA (acute kidney injury): Status: Resolved <Ashleigh Romero NP - Last Filed: 11/13/21 09:13> Assessment and Plan: 51-year-old woman initially presented to the ER with lower extremity swelling, the plan was to place her in short-term rehab however after several days patient was noted to have some swelling in her abdomen and abdominal CT showed hydronephrosis, therefore was requested that patient be admitted for further management. unvaccinated. Normocytic anemia No signs of bleeding Check occult stool Normal iron studies Tx one unit PRBC Follow CBC post transfusion consider GI consult Hydronephrosis.? Some chronic changes Urology consultation pending Follow cultures Follow BMP closely, creatinine UTI check urine cx Rocephin Chronic lower extremity edema doppler us neg for dvt chronic may use tiana wraps Diabetes mellitus Sliding scale, ADA diet Continue long-acting insulin Mental health Continue home medications Hypothyroidism Continue levothyroxine Hypertension Stable blood pressure continue amlodipine COPD/asthma Continue respiratory treatments as needed Hyperlipidemia Continue aspirin and statin GERD Continue PPI Morbid obesity.? BMI 78.3 Discussed the importance of weight management as this is likely contributing to worsening of other comorbidities DVT prophylaxis with heparin Full code Attending Dr. Garcias <Ashleigh Romero NP - Last Filed: 11/13/21 09:13> Quality Stroke Does the patient have a stroke diagnosis?: No <Ashleigh Romero NP - Last Filed: 11/13/21 09:13> VTE Prior VTE?: No <Ashleigh Romero NP - Last Filed: 11/13/21 09:13> VTE Risk Level:: Medical - moderate - high <CONCEPCION Rodriguez Last Filed: 11/13/21 09 :13> VTE Device Contraindication: Treatment Not Indicated <Ashleigh Romero NP - Last Filed: 11/13/21 09:13> VTE Drug Contraindication: N/A - Med Ordered <CONCEPCION Rodriguez Last Filed: 11/13/21 09:13>
[2021-11-13 09:22] LABS: Adenovirus PCR Not Detected (Not Detect.); Bordetella parapertussis PCR Not Detected (Not Detect.); Bordetella pertussis PCR Not Detected (Not Detect.); Chlamydia pneumoniae PCR Not Detected (Not Detect.); Coronavirus 229E PCR Not Detected (Not Detect.); Coronavirus HKU1 PCR Not Detected (Not Detect.); Coronavirus NL63 PCR Not Detected (Not Detect.); Coronavirus OC43 PCR Not Detected (Not Detect.); Human metapneumovirus PCR Not Detected (Not Detect.); Influenza A PCR Not Detected (Not Detect.); Influenza B PCR Not Detected (Not Detect.); Mycoplasma pneumoniae PCR Not Detected (Not Detect.); Parainfluenza 1 PCR Not Detected (Not Detect.); Parainfluenza 2 PCR Not Detected (Not Detect.); Parainfluenza 3 PCR Not Detected (Not Detect.); Parainfluenza 4 PCR Not Detected (Not Detect.); RSV PCR Not Detected (Not Detect.); Rhino/Enterovirus PCR Not Detected (Not Detect.); SARS-CoV-2 PCR Not Detected (Not Detect.)
[2021-11-13 11:32] LABS: Glucose, Whole Blood 261 mg/dL (60-115)
[2021-11-13] MEDS: cefTRIAXone sodium 2 GM in 0.9 % Sodium Chloride 50 ML IV (16:02)
[2021-11-13 16:13] LABS: Glucose, Whole Blood 294 mg/dL (60-115)
[2021-11-13] MEDS: clonazePAM 0.5 MG TABLET 0.25 MG PO (16:38)
[2021-11-13 18:16] LABS: Hematocrit 28.7 % (37.0-47.0); Hemoglobin 8.6 g/dl (12.0-16.0)
[2021-11-13 20:30] LABS: Glucose, Whole Blood 264 mg/dL (60-115)
[2021-11-13] MEDS: Atorvastatin Calcium 80 MG TABLET PO (21:05)
[2021-11-13] MEDS: traZODone HCL 100 MG TABLET 200 MG PO (21:29)
[2021-11-14 04:00] VITALS: BP 120/62; PULSE 69; RESP 18; TEMP 36.3; O2SAT 96
[2021-11-14] MEDS: Omeprazole 20 MG CAPSULE.DR PO ×2 (06:03→16:37)
[2021-11-14] MEDS: Levothyroxine Sodium 200 MCG TABLET PO (06:03)
[2021-11-14 07:25] LABS: Glucose, Whole Blood 222 mg/dL (60-115)
[2021-11-14 07:28] LABS: Lactate Dehydrogenase 171 U/L (122-220)
[2021-11-14] MEDS: Gabapentin 600 MG TABLET PO ×3 (07:55→20:31)
[2021-11-14] MEDS: FLUoxetine HCl 20 MG CAPSULE 60 MG PO (07:55)
[2021-11-14] MEDS: Ibuprofen 800 MG TABLET PO (07:55)
[2021-11-14] MEDS: Loratadine 10 MG TABLET PO (07:55)
[2021-11-14] MEDS: Furosemide 20 MG TABLET PO (07:55)
[2021-11-14] MEDS: Aspirin Enteric Coated 81 MG TABLET.DR PO (07:55)
[2021-11-14] MEDS: amLODIPine Besylate 5 MG TABLET PO (07:56)
[2021-11-14] MEDS: Buprenorphine/Naloxone 8/2 mg FILM 1 FILM SUBLINGUAL ×3 (07:56→20:31)
[2021-11-14] MEDS: Insulin Lispro 100 UNIT/ML 3 ML VIAL SUBCUT ×4 (07:56→20:30)
[2021-11-14] MEDS: 0.9 % Sodium Chloride Flush 3 ML SYRINGE IVFLUSH ×3 (07:56→23:43)
[2021-11-14 08:00] VITALS: BP 145/71; PULSE 72; RESP 20; TEMP 36.6; O2SAT 97
[2021-11-14 08:27] LABS: Vitamin B12 438 pg/mL (200-900)
--- NOTE | 2021-11-14 10:22 | P.PNIM_ITS ---
Subjective Subjective Date of Service: 11/14/21 Review of Systems Follow up hydronephrosis having some pain to her left knee feels unwell Physical Exam Vital Signs: Vital Signs: Last Vital Signs Temp 97.8 F 11/14/21 08:00 Pulse 72 11/14/21 08:00 Resp 20 11/14/21 08:00 BP 145/71 H 11/14/21 08:00 Pulse Ox 97 11/14/21 08:00 O2 Del Method 11/14/21 08:00 O2 Flow Rate 2 11/14/21 08:00 BMI result Body Mass Index 78.2 Appearing in no acute distress lung sounds are clear to auscultation heart regular rate rhythm, clear S1, S2 positive bowel sounds, abdomen is soft, nontender, obese neuro patient is alert x3, no focal deficits chronic lower ext edema bilaterally Objective Data Active Medications Acetaminophen (Acetaminophen 325 Mg Tablet) 650 mg PO Q6H PRN PRN Reason: Pain, Mild (Pain Scale 1-3) Last Admin: 11/13/21 07:49 Dose: 650 mg Documented By: JENNY Albuterol Sulfate (Albuterol Sulfate 90 Mcg 8 Gm Inhaler) 2 puff INHALE Q4H PRN PRN Reason: wheezing Amlodipine Besylate (Amlodipine Besylate 5 Mg Tablet) 5 mg PO DAILY [facility]; Protocol Last Admin: 11/14/21 07:56 Dose: 5 mg Documented By: KAITLYNN Aspirin (Aspirin Enteric Coated 81 Mg Tablet.) 81 mg PO DAILY [facility] Last Admin: 11/14/21 07:55 Dose: 81 mg Documented By: KAITLYNN Atorvastatin Calcium (Atorvastatin Calcium 80 Mg Tablet) 80 mg PO BEDTIME [facility] Last Admin: 11/13/21 21:05 Dose: 80 mg Documented By: EMY Buprenorphine/Naloxone (Buprenorphine/Naloxone 8/2 Mg Film) 1 film SUBLINGUAL TID [facility] Last Admin: 11/14/21 07:56 Dose: 1 film Documented By: KAITLYNN Clonazepam (Clonazepam 0.5 Mg Tablet) 0.25 mg PO DAILY PRN PRN Reason: anxiety Last Admin: 11/13/21 16:38 Dose: 0.25 mg Documented By: EMY Fluoxetine HCl (Fluoxetine Hcl 20 Mg Capsule) 60 mg PO DAILY [facility] Last Admin: 11/14/21 07:55 Dose: 60 mg Documented By: KAITLYNN Furosemide (Furosemide 20 Mg Tablet) 20 mg PO DAILY [facility]; Protocol Last Admin: 11/14/21 07:55 Dose: 20 mg Documented By: KAITLYNN Gabapentin (Gabapentin 600 Mg Tablet) 600 mg PO TID [facility] Last Admin: 11/14/21 07:55 Dose: 600 mg Documented By: KAITLYNN Ceftriaxone Sodium 2 gm/ (Sodium Chloride) 50 mls @ 100 mls/hr IV Q24H [facility] Last Infusion: 11/13/21 18:49 Dose: 0 mls/hr Documented By: EMY Ibuprofen (Ibuprofen 800 Mg Tablet) 800 mg PO TID PRN PRN Reason: Pain, Mild (Pain Scale 1-3) Last Admin: 11/14/21 07:55 Dose: 800 mg Documented By: KAITLYNN Insulin Human Lispro (Insulin Lispro 100 Unit/Ml 3 Ml Vial) 0 unit SUBCUT QIDACHS [facility]; Protocol Last Admin: 11/14/21 07:56 Dose: 4 unit Documented By: KAITLYNN Levothyroxine Sodium (Levothyroxine Sodium 200 Mcg Tablet) 200 mcg PO DAILY@0630 [facility] Last Admin: 11/14/21 06:03 Dose: 200 mcg Documented By: CHRIS Loratadine (Loratadine 10 Mg Tablet) 10 mg PO DAILY [facility] Last Admin: 11/14/21 07:55 Dose: 10 mg Documented By: KAITLYNN Omeprazole (Omeprazole 20 Mg Capsule.Dr) 20 mg PO BID@0630,1630 [facility] Last Admin: 11/14/21 06:03 Dose: 20 mg Documented By: CHRIS Ondansetron HCl (Ondansetron Hcl 4 Mg/2 Ml Vial) 4 mg IVPUSH Q8H PRN PRN Reason: Nausea and Vomiting Pharmacy Consult (Consult Rx Perform Med Rec) 1 each MISCELLANE ONCE PRN PRN Reason: Consult order Sodium Chloride (0.9 % Sodium Chloride Flush 3 Ml Syringe) 3 ml IVFLUSH QSHIFT [facility] Last Admin: 11/14/21 07:56 Dose: 3 ml Documented By: KAITLYNN Trazodone HCl (Trazodone Hcl 100 Mg Tablet) 200 mg PO BEDTIME PRN PRN Reason: Insomnia Last Admin: 11/13/21 21:29 Dose: 200 mg Documented By: EMY Labs CBC & Chem 7: 11/14/21 10:58 11/13/21 06:29 Labs: Laboratory Results - last 24 hr 11/12/21 11/13/21 11/13/21 18:03 11:18 16:05 POC Glucose 261 H 294 H Lactate Dehydrogenase Vitamin B12 Folate Blood Type A Positive Antibody Screen NEGATIVE KODY, Polyspecific Positive KODY Work-up Crossmatch See Detail 11/13/21 11/14/21 11/14/21 20:14 06:35 06:35 POC Glucose 264 H Lactate Dehydrogenase 171 Vitamin B12 438 Folate 4.0 Blood Type Antibody Screen KODY, Polyspecific Positive KODY Work-up Crossmatch 11/14/21 11/14/21 06:35 07:21 POC Glucose 222 H Lactate Dehydrogenase Vitamin B12 Folate Blood Type Antibody Screen KODY, Polyspecific NEGATIVE Positive KODY Work-up Not Reportable Crossmatch Microbiology Microbiology Results: Microbiology 11/12/21 15:29 Blood Culture - Preliminary Blood - Venous No growth after 24 hours. 11/12/21 15:29 Blood Culture - Preliminary Blood - Venous No growth after 24 hours. 11/12/21 17:18 Urine Culture - Final Urine clean catch - Clean Catch Midstream Assessment and Plan (1) Acute respiratory failure with hypoxia: Status: Resolved (2) RADHIKA (acute kidney injury): Status: Resolved Plan 51-year-old woman initially presented to the ER with lower extremity swelling, the plan was to place her in short-term rehab however after several days patient was noted to have some swelling in her abdomen and abdominal CT showed hydronephrosis, therefore was requested that patient be admitted for further management. unvaccinated. Normocytic anemia Likely from hematuria Check occult stool Normal iron studies Transfused one unit PRBC with good result Hydronephrosis.? Some chronic changes Urology consultation pending Follow cultures Follow BMP closely, creatinine UTI check urine cx Rocephin Chronic lower extremity edema doppler us neg for dvt chronic may use tiana wraps Left knee pain chronic lidocaine patch for pain Diabetes mellitus Sliding scale, ADA diet Continue long-acting insulin Mental health Continue home medications Hypothyroidism Continue levothyroxine Hypertension Stable blood pressure continue amlodipine COPD/asthma Continue respiratory treatments as needed Hyperlipidemia Continue aspirin and statin GERD Continue PPI Morbid obesity.? BMI 78.3 Discussed the importance of weight management as this is likely contributing to worsening of other comorbidities DVT prophylaxis with heparin Full code Attending Dr. Dolan Quality Stroke Does the patient have a stroke diagnosis?: No VTE Prior VTE?: No VTE Risk Level:: Medical - moderate - high VTE Device Contraindication: Treatment Not Indicated VTE Drug Contraindication: N/A - Med Ordered
[2021-11-14 11:17] LABS: Hematocrit 28.4 % (37.0-47.0); Hemoglobin 8.2 g/dl (12.0-16.0)
[2021-11-14 11:18] LABS: Glucose, Whole Blood 217 mg/dL (60-115)
[2021-11-14] MEDS: clonazePAM 0.5 MG TABLET 0.25 MG PO (11:56)
[2021-11-14] MEDS: Acetaminophen 325 MG TABLET 650 MG PO (11:56)
[2021-11-14 12:00] VITALS: BP 157/81; PULSE 74; RESP 20; TEMP 36.2; O2SAT 98
[2021-11-14] MEDS: cefTRIAXone sodium 2 GM in 0.9 % Sodium Chloride 50 ML IV (14:09)
[2021-11-14] MEDS: Lidocaine 4 % Patch ADH..PATCH 1 PATCH TRANSDERMA (14:09)
--- NOTE | 2021-11-14 14:23 | P.CNID_ITS ---
History of Present Illness Data of Consult Service Date: 11/14/21 Requesting physician: Ashleigh Romero Primary Care Provider: SUGEY Esteban HPI Reason for consult: possible new hydronephrosis?infection She presents with swelling bilateral lower extremities for several days and didnt go to Rehab due to no COVID vaccine and high BMI She had abdominal swelling reported and had abdominal CT shows mild right hydronephrosis. Urine shows no elevated WBC and culture impossible to get clean culture. Review of Systems Review of Systems: Yes unobtainable due to endotracheal tube PMFSH Past Medical History Medical History (Updated 11/14/21 @ 14:27 by Cindy Rodriguez MD) Choledocholithiasis DMII (diabetes mellitus, type 2) High cholesterol HTN (hypertension) Hydronephrosis of right kidney Hydroureteronephrosis Kidney stones Morbid obesity Normocytic anemia Pyelonephritis UTI (urinary tract infection) Family History Family History Mother Coronary artery disease Diabetes Family history: reviewed and not pertinent Surgical History Surgical History No pertinent past surgical history Social History Social History Household Members: Significant Other Household Members Other:: 2 Housing: Apartment Do you presently have visiting nurse or other home services: No Alcohol intake: current Alcohol intake frequency: a few times a month Alcohol type: beer Patient Tobacco Use Status: Current everyday Tobacco user Tobacco use type: Cigarette Cigarettes Per Day: 5 Years Smoked: 41 Smoked in Last 30 Days: Yes Patient Interested in Nicotine Replacement: No Patient Given Instructions on How to Stop Smoking: Yes Date Education Initiated: 11/12/21 Second Hand Smoke Exposure: No Use of substances other than those prescribed or required for medical reasons: No Substance Use Type: Former Substance User Currently Displaying Signs/Symptoms of Drug Intoxication Withdrawal: No Have you been hit, kicked, punched, or otherwise hurt by someone within the past year? If so, by whom?: No Is there a partner from a previous relationship who is making you feel unsafe now?: No Are you made to feel afraid or neglected: No Advance Directives: No Do you have thoughts of harming others: None Do you have a plan to hurt others: No Plan Recently lost weight without trying: No Nutrition Risks: No Nutritional Risk service: No Current occupational status: unemployed Meds Allergies Allergy/AdvReac Type Severity Reaction Status Date / Time canagliflozin [From Invokana] Allergy Rash Verified 10/14/21 13:49 latex Allergy Itching Verified 10/14/21 13:49 metformin Allergy Hives Verified 10/14/21 13:49 Penicillins Allergy Rash Verified 10/14/21 13:49 sitagliptin [From Junuvia] Allergy Rash Verified 10/14/21 13:49 Active Medications: Current Medications Acetaminophen (Acetaminophen 325 Mg Tablet) 650 mg PO Q6H PRN PRN Reason: Pain, Mild (Pain Scale 1-3) Last Admin: 11/14/21 11:56 Dose: 650 mg Albuterol Sulfate (Albuterol Sulfate 90 Mcg 8 Gm Inhaler) 2 puff INHALE Q4H PRN PRN Reason: wheezing Amlodipine Besylate (Amlodipine Besylate 5 Mg Tablet) 5 mg PO DAILY [facility]; Protocol Last Admin: 11/14/21 07:56 Dose: 5 mg Aspirin (Aspirin Enteric Coated 81 Mg Tablet.Dr) 81 mg PO DAILY [facility] Last Admin: 11/14/21 07:55 Dose: 81 mg Atorvastatin Calcium (Atorvastatin Calcium 80 Mg Tablet) 80 mg PO BEDTIME [facility] Last Admin: 11/13/21 21:05 Dose: 80 mg Buprenorphine/Naloxone (Buprenorphine/Naloxone 8/2 Mg Film) 1 film SUBLINGUAL TID [facility] Last Admin: 11/14/21 14:09 Dose: 1 film Clonazepam (Clonazepam 0.5 Mg Tablet) 0.25 mg PO DAILY PRN PRN Reason: anxiety Last Admin: 11/14/21 11:56 Dose: 0.25 mg Fluoxetine HCl (Fluoxetine Hcl 20 Mg Capsule) 60 mg PO DAILY [facility] Last Admin: 11/14/21 07:55 Dose: 60 mg Furosemide (Furosemide 20 Mg Tablet) 20 mg PO DAILY [facility]; Protocol Last Admin: 11/14/21 07:55 Dose: 20 mg Gabapentin (Gabapentin 600 Mg Tablet) 600 mg PO TID [facility] Last Admin: 11/14/21 14:09 Dose: 600 mg Ceftriaxone Sodium 2 gm/ (Sodium Chloride) 50 mls @ 100 mls/hr IV Q24H [facility] Last Admin: 11/14/21 14:09 Dose: 100 mls/hr Ibuprofen (Ibuprofen 800 Mg Tablet) 800 mg PO TID PRN PRN Reason: Pain, Mild (Pain Scale 1-3) Last Admin: 11/14/21 07:55 Dose: 800 mg Insulin Human Lispro (Insulin Lispro 100 Unit/Ml 3 Ml Vial) 0 unit SUBCUT QI [facility]; Protocol Last Admin: 11/14/21 11:50 Dose: 4 unit Levothyroxine Sodium (Levothyroxine Sodium 200 Mcg Tablet) 200 mcg PO DAILY@0630 [facility] Last Admin: 11/14/21 06:03 Dose: 200 mcg Lidocaine (Lidocaine 4 % Patch Adh..Patch) 1 patch TRANSDERMA DAILY [facility]; Protocol Last Admin: 11/14/21 14:09 Dose: 1 patch Loratadine (Loratadine 10 Mg Tablet) 10 mg PO DAILY [facility] Last Admin: 11/14/21 07:55 Dose: 10 mg Omeprazole (Omeprazole 20 Mg Capsule.Dr) 20 mg PO BID@0630,1630 [facility] Last Admin: 11/14/21 06:03 Dose: 20 mg Ondansetron HCl (Ondansetron Hcl 4 Mg/2 Ml Vial) 4 mg IVPUSH Q8H PRN PRN Reason: Nausea and Vomiting Pharmacy Consult (Consult Rx Perform Med Rec) 1 each MISCELLANE ONCE PRN PRN Reason: Consult order Sodium Chloride (0.9 % Sodium Chloride Flush 3 Ml Syringe) 3 ml IVFLUSH QSHIFT [facility] Last Admin: 11/14/21 07:56 Dose: 3 ml Trazodone HCl (Trazodone Hcl 100 Mg Tablet) 200 mg PO BEDTIME PRN PRN Reason: Insomnia Last Admin: 11/13/21 21:29 Dose: 200 mg Home Medications Medication Instructions Recorded Confirmed Last Taken Type albuterol sulfate 90 mcg/actuation 2 puff PO Q4H PRN wheezing 08/13/21 11/08/21 11/07/21 History aerosol inhaler (ProAir HFA) aspirin 81 mg tablet,delayed 1 tab PO DAILY 08/13/21 11/08/21 11/07/21 History release atorvastatin 80 mg tablet 1 tab PO BEDTIME 08/13/21 11/08/21 11/07/21 History buprenorphine 8 mg-naloxone 2 mg 1 strip sublingual TID 08/13/21 11/08/21 0611/23 History sublingual film (Suboxone) fluoxetine 20 mg capsule 3 cap PO DAILY 08/13/21 11/08/21 11/07/21 History gabapentin 600 mg tablet 1 tab PO TID 08/13/21 11/08/21 11/07/21 History ibuprofen 800 mg tablet 1 tab PO TID PRN pain 08/13/21 11/08/21 11/07/21 History insulin glargine 100 unit/mL (3 22 - 54 unit subcut BID 08/13/21 11/08/21 11/07/21 History mL) subcutaneous pen (Lantus Solostar U-100 Insulin) insulin lispro 100 unit/mL 8 - 17 unit subcut TIDAC 08/13/21 11/08/21 11/07/21 History subcutaneous pen (Humalog KwikPen (U-100) Insulin) levothyroxine 200 mcg tablet 1 tab PO DAILY@0630 08/13/21 11/08/21 11/07/21 History loratadine 10 mg tablet 1 tab PO DAILY 08/13/21 11/08/21 11/07/21 History omeprazole 20 mg capsule,delayed 1 cap PO BID@0630,1630 08/13/21 11/08/21 11/07/21 History release trazodone 100 mg tablet 2 tab PO BEDTIME PRN Insomnia 08/13/21 11/08/21 11/07/21 History blood sugar diagnostic (FreeStyle #10 ea 09/21/21 11/08/21 11/07/21 History Lite Strips) pen needle, diabetic 31 gauge x #1,200 ea 09/21/21 11/08/21 11/07/21 History 5/16 (UltiCare Pen Needle) clonazepam 0.5 mg tablet 0.5 tab PO DAILY PRN Anxiety 10/05/21 11/08/21 11/07/21 History Physical Exam Vital Signs: Vital Signs: Last Vital Signs Temp 97.2 F 11/14/21 12:00 Pulse 74 11/14/21 12:00 Resp 20 11/14/21 12:00 BP 157/81 H 11/14/21 12:00 Pulse Ox 98 11/14/21 12:00 O2 Del Method 11/14/21 12:00 O2 Flow Rate 2 11/14/21 12:00 BMI result Body Mass Index 78.2 Const: General: cooperative HEENT: Head: Yes normal to inspection Mouth: Normal oral and palatal mucosa present Resp: Effort & Inspection: normal respiratory effort Cardio: Rate: regular rate Rhythm: regular rhythm GI: Palpation (GI): Soft to palpation and nontender Skin: General skin exam: no rashes or lesions noted Results Labs CBC & Chem 7: 11/14/21 10:58 11/13/21 06:29 Labs: Short CBC 11/13/21 11/14/21 Range/Units 18:09 10:58 Hgb 8.6 L 8.2 L (12.0-16.0) g/dl Hct 28.7 L 28.4 L (37.0-47.0) % Microbiology Microbiology Results: Microbiology 11/12/21 15:29 Blood - Venous Blood Culture - Preliminary No growth after 24 hours. 11/12/21 15:29 Blood - Venous Blood Culture - Preliminary No growth after 24 hours. 11/12/21 17:18 Urine clean catch - Clean Catch Midstream Urine Culture - Final Assessment and Plan (1) Bilateral edema of lower extremity: Status: Acute (2) Hydronephrosis of right kidney: Status: Acute There is mild hydronephrosis new since October CT scan abdomen and pelvis apparently. She has no referrable urinary symptoms only abdomen looked larger She has no pyuria 11/10. Hydronephrosis may be old or new although not reported in October. Urine culture is difficult to collect. Plan Continue Ceftriaxone until Urology determines if hydronephrosis require stent right and then use po Ceftin if needed for 10 days after Urology evaluation
--- NOTE | 2021-11-14 15:25 | MHC.CLN ---
NUTRITION CONSULT FOR MORBID OBESITY AND DIET EDUCATION. PROVIDED INFORMATION ABOUT HEALTHY MEAL PLANNING WITH DIABETES. PATIENT RECEPTIVE TO INFORMATION. DISCUSSED PRIOR WEIGHT LOSS AND THAT PATIENT FELT BETTER AT LOWER WEIGHT.
[2021-11-14 15:48] VITALS: BP 123/65; PULSE 66; RESP 20; TEMP 36.6; O2SAT 95
[2021-11-14 15:57] LABS: Glucose, Whole Blood 230 mg/dL (60-115)
--- NOTE | 2021-11-14 16:20 | MHC.CM.PN ---
PT REPORTS SHE LIVES WITH HER FI[employer]/SCIENCE LIAISON SHE RECEIVES DAILY SCIENCE LIAISON SERVICES (28+ HRS/WEEK) PT DENIES HAVING OTHER SERVICES PT HAS SEVERAL DME ITEMS IN THE HOME HOWEVER SHE REPORTS SHE IS SUPPOSED TO HAVE OXYGEN WELL BUT SAYS THIS HAS BEEN STOLEN SHE REPORTS SHE DID DISCUSS THIS WITH THE MD, BUT IS UNSURE WHAT THE PLAN IS PT HAS A HCP ON FILE SHE IS NOT COVID-19 VACCINATED PCP: LACHELLE KYLE DCP, HOME WITH RESUMPTION OF SCIENCE LIAISON SERVICES SHE WILL NEED BLS TRANSPORT
[2021-11-14 19:37] LABS: Glucose, Whole Blood 208 mg/dL (60-115)
[2021-11-14 19:47] VITALS: BP 138/83; PULSE 70; RESP 20; TEMP 36.6; O2SAT 93
[2021-11-14] MEDS: Atorvastatin Calcium 80 MG TABLET PO (20:31)
[2021-11-14] MEDS: traZODone HCL 100 MG TABLET 200 MG PO (20:34)
[2021-11-14 23:43] VITALS: BP 150/75; PULSE 74; RESP 14; TEMP 36.6; O2SAT 97
[2021-11-15 04:00] VITALS: BP 156/85; PULSE 77; RESP 14; TEMP 37.1; O2SAT 100
[2021-11-15] MEDS: Levothyroxine Sodium 200 MCG TABLET PO (05:35)
[2021-11-15] MEDS: Omeprazole 20 MG CAPSULE.DR PO ×2 (05:35→16:39)
[2021-11-15 06:25] LABS: Hematocrit 29.1 % (37.0-47.0); Hemoglobin 8.6 g/dl (12.0-16.0); Mean Corpuscular HGB Conc 29.6 g/dl (31.0-35.0); Mean Corpuscular Hemoglobin 25.1 pg (27.0-33.0); Mean Corpuscular Volume 84.8 fL (80.0-98.0); Mean Platelet Volume 10.5 fL (9.4-12.3); Platelet Count 282 X10*3/uL (160-400); Red Blood Count 3.43 X10*6/uL (4.20-5.50); Red Cell Distribution Width 16.7 % (11.0-16.0); White Blood Count 6.4 X10*3/uL (4.8-10.8)
[2021-11-15 06:48] LABS: Anion Gap 10 (12-20); Blood Urea Nitrogen 28 mg/dL (9-16); Calcium 8.5 mg/dL (8.4-10.2); Carbon Dioxide 32 mmol/L (22-29); Chloride 98 mmol/L (96-108); Creatinine Clr Calc Pharmacy 105.1; Estimated Glomerular Filt Rate 44; Glucose Random 256 mg/dL (60-115); Potassium 4.8 mmol/L (3.3-5.1); Sodium 135 mmol/L (135-145)
[2021-11-15 07:22] VITALS: BP 153/78; PULSE 79; RESP 18; TEMP 36.3; O2SAT 97
[2021-11-15 07:27] LABS: Glucose, Whole Blood 218 mg/dL (60-115)
[2021-11-15] MEDS: Lidocaine 4 % Patch ADH..PATCH 1 PATCH TRANSDERMA (08:05)
[2021-11-15] MEDS: FLUoxetine HCl 20 MG CAPSULE 60 MG PO (08:05)
[2021-11-15] MEDS: Buprenorphine/Naloxone 8/2 mg FILM 1 FILM SUBLINGUAL ×3 (08:06→19:33)
[2021-11-15] MEDS: Gabapentin 600 MG TABLET PO ×3 (08:06→19:33)
[2021-11-15] MEDS: amLODIPine Besylate 5 MG TABLET PO (08:06)
[2021-11-15] MEDS: Aspirin Enteric Coated 81 MG TABLET.DR PO (08:06)
[2021-11-15] MEDS: Furosemide 20 MG TABLET PO (08:06)
[2021-11-15] MEDS: 0.9 % Sodium Chloride Flush 3 ML SYRINGE IVFLUSH ×3 (08:06→19:40)
[2021-11-15] MEDS: Loratadine 10 MG TABLET PO (08:06)
[2021-11-15] MEDS: Insulin Lispro 100 UNIT/ML 3 ML VIAL SUBCUT ×6 (08:06→19:35)
[2021-11-15] MEDS: Ibuprofen 800 MG TABLET PO ×2 (08:14→16:40)
[2021-11-15 11:18] VITALS: BP 122/67; PULSE 75; RESP 18; TEMP 36.4; O2SAT 95
[2021-11-15 11:24] LABS: Glucose, Whole Blood 248 mg/dL (60-115)
[2021-11-15] MEDS: Acetaminophen 325 MG TABLET 650 MG PO ×2 (11:56→19:39)
[2021-11-15] MEDS: clonazePAM 0.5 MG TABLET 0.25 MG PO (11:56)
--- NOTE | 2021-11-15 12:12 | P.PNIM_ITS ---
Subjective Subjective Date of Service: 11/15/21 Review of Systems Follow up hydronephrosis having pain to her left knee feels unwell Physical Exam Vital Signs: Vital Signs: Last Vital Signs Temp 97.6 F 11/15/21 11:18 Pulse 75 11/15/21 11:18 Resp 18 11/15/21 11:18 BP 122/67 11/15/21 11:18 Pulse Ox 95 11/15/21 11:18 O2 Del Method 11/15/21 11:18 O2 Flow Rate 2 11/15/21 11:18 BMI result Body Mass Index 78.2 Appearing in no acute distress lung sounds are clear to auscultation heart regular rate rhythm, clear S1, S2 positive bowel sounds, abdomen is soft, nontender, obese neuro patient is alert x3, no focal deficits Objective Data Active Medications Acetaminophen (Acetaminophen 325 Mg Tablet) 650 mg PO Q6H PRN PRN Reason: Pain, Mild (Pain Scale 1-3) Last Admin: 11/15/21 11:56 Dose: 650 mg Documented By: KAITLYNN Albuterol Sulfate (Albuterol Sulfate 90 Mcg 8 Gm Inhaler) 2 puff INHALE Q4H PRN PRN Reason: wheezing Amlodipine Besylate (Amlodipine Besylate 5 Mg Tablet) 5 mg PO DAILY [facility]; Protocol Last Admin: 11/15/21 08:06 Dose: 5 mg Documented By: KAITLYNN Aspirin (Aspirin Enteric Coated 81 Mg Tablet.) 81 mg PO DAILY [facility] Last Admin: 11/15/21 08:06 Dose: 81 mg Documented By: KAITLYNN Atorvastatin Calcium (Atorvastatin Calcium 80 Mg Tablet) 80 mg PO BEDTIME [facility] Last Admin: 11/14/21 20:31 Dose: 80 mg Documented By: ZULEIKA Buprenorphine/Naloxone (Buprenorphine/Naloxone 8/2 Mg Film) 1 film SUBLINGUAL TID [facility] Last Admin: 11/15/21 08:06 Dose: 1 film Documented By: KAITLYNN Clonazepam (Clonazepam 0.5 Mg Tablet) 0.25 mg PO DAILY PRN PRN Reason: anxiety Last Admin: 11/15/21 11:56 Dose: 0.25 mg Documented By: KAITLYNN Fluoxetine HCl (Fluoxetine Hcl 20 Mg Capsule) 60 mg PO DAILY [facility] Last Admin: 11/15/21 08:05 Dose: 60 mg Documented By: KAITLYNN Furosemide (Furosemide 20 Mg Tablet) 20 mg PO DAILY [facility]; Protocol Last Admin: 11/15/21 08:06 Dose: 20 mg Documented By: KAITLYNN Gabapentin (Gabapentin 600 Mg Tablet) 600 mg PO TID [facility] Last Admin: 11/15/21 08:06 Dose: 600 mg Documented By: KAITLYNN Ceftriaxone Sodium 2 gm/ (Sodium Chloride) 50 mls @ 100 mls/hr IV Q24H [facility] Last Infusion: 11/14/21 14:55 Dose: 0 mls/hr Documented By: KAITLYNN Ibuprofen (Ibuprofen 800 Mg Tablet) 800 mg PO TID PRN PRN Reason: Pain, Mild (Pain Scale 1-3) Last Admin: 11/15/21 08:14 Dose: 800 mg Documented By: KAITLYNN Insulin Human Lispro (Insulin Lispro 100 Unit/Ml 3 Ml Vial) 0 unit SUBCUT QIDACHS [facility]; Protocol Last Admin: 11/15/21 11:57 Dose: 4 unit Documented By: KAITLYNN Levothyroxine Sodium (Levothyroxine Sodium 200 Mcg Tablet) 200 mcg PO DAILY@0630 [facility] Last Admin: 11/15/21 05:35 Dose: 200 mcg Documented By: CHRIS Lidocaine (Lidocaine 4 % Patch Adh..Patch) 1 patch TRANSDERMA DAILY [facility]; Protocol Last Admin: 11/15/21 08:05 Dose: 1 patch Documented By: KAITLYNN Loratadine (Loratadine 10 Mg Tablet) 10 mg PO DAILY [facility] Last Admin: 11/15/21 08:06 Dose: 10 mg Documented By: KAITLYNN Omeprazole (Omeprazole 20 Mg Capsule.Dr) 20 mg PO BID@0630,1630 [facility] Last Admin: 11/15/21 05:35 Dose: 20 mg Documented By: CHRIS Ondansetron HCl (Ondansetron Hcl 4 Mg/2 Ml Vial) 4 mg IVPUSH Q8H PRN PRN Reason: Nausea and Vomiting Pharmacy Consult (Consult Rx Perform Med Rec) 1 each MISCELLANE ONCE PRN PRN Reason: Consult order Sodium Chloride (0.9 % Sodium Chloride Flush 3 Ml Syringe) 3 ml IVFLUSH QSHIFT [facility] Last Admin: 11/15/21 08:06 Dose: 3 ml Documented By: KAITLYNN Trazodone HCl (Trazodone Hcl 100 Mg Tablet) 200 mg PO BEDTIME PRN PRN Reason: Insomnia Last Admin: 11/14/21 20:34 Dose: 200 mg Documented By: ZULEIKA Labs CBC & Chem 7: 11/15/21 06:10 11/15/21 06:10 Labs: Laboratory Results - last 24 hr 11/14/21 11/14/21 11/15/21 15:52 19:32 06:10 MCV 84.8 MCH 25.1 L MCHC 29.6 L RDW 16.7 H Plt Count 282 MPV 10.5 Absolute Nucleated RBC 0.000 Nucleated RBC % (auto) 0.0 Anion Gap Estim Creat Clear Calc Estimated GFR POC Glucose 230 H 208 H Random Glucose Calcium 11/15/21 11/15/21 11/15/21 06:10 07:21 11:17 MCV MCH MCHC RDW Plt Count MPV Absolute Nucleated RBC Nucleated RBC % (auto) Anion Gap 10 L Estim Creat Clear Calc 105.1 Estimated GFR 44 POC Glucose 218 H 248 H Random Glucose 256 H Calcium 8.5 Microbiology Microbiology Results: Microbiology 11/12/21 15:29 Blood Culture - Preliminary Blood - Venous No growth after 48 hours. 11/12/21 15:29 Blood Culture - Preliminary Blood - Venous No growth after 48 hours. Assessment and Plan (1) Acute respiratory failure with hypoxia: Status: Resolved (2) RADHIKA (acute kidney injury): Status: Resolved Plan 51-year-old woman initially presented to the ER with lower extremity swelling, the plan was to place her in short-term rehab however after several days patient was noted to have some swelling in her abdomen and abdominal CT showed hydronephrosis, therefore was requested that patient be admitted for further management. unvaccinated. Normocytic anemia Likely from hematuria Check occult stool Normal iron studies Transfused one unit PRBC with good result Hydronephrosis.? Some chronic changes Urology consultation pending cx neg after 48hrs Follow BMP closely, creatinine UTI day Rocephin day #4 Chronic lower extremity edema doppler us neg for dvt chronic may use tiana wraps Left knee pain. chronic but persistent now xray lidocaine patch for pain Diabetes mellitus Sliding scale, ADA diet Continue long-acting insulin Mental health Continue home medications Hypothyroidism Continue levothyroxine Hypertension Stable blood pressure continue amlodipine COPD/asthma Continue respiratory treatments as needed Hyperlipidemia Continue aspirin and statin GERD Continue PPI Morbid obesity.? BMI 78.3 Discussed the importance of weight management as this is likely contributing to worsening of other comorbidities DVT prophylaxis with heparin Full code Attending Dr. Dolan Patient requires continued hospitalization For treatment of acute hydronephrosis, likely stent, urology consultation pending Quality Stroke Does the patient have a stroke diagnosis?: No VTE Prior VTE?: No VTE Risk Level:: Medical - moderate - high VTE Device Contraindication: Treatment Not Indicated VTE Drug Contraindication: N/A - Med Ordered
--- NOTE | 2021-11-15 12:42 | P.CNUR_ITS ---
History of Present Illness Consult details Consult date: 11/15/21 Narrative: Betzaida is a well-known, poorly controlled diabetic Current presentation for DVT and abdominal swelling Prior admission had elevated creatinine and significantly elevated WBC Current admission creatinine 1.3, WBC 6.4 Imaging - CT mild hydroureteronephrosis down to the level of bladder - question of debris within right renal pelvis Microbiology pending Urine culture canceled due to inability to obtain specimen No acute urologic issue compared to prior admission Would not recommend intervention at this point in time his creatinine is normal and no clear evidence of infection Unlikely fungal infection is WBC is within normal limits Review of Systems Constitutional: Constitutional: Denies chills and Denies fever(s) Cardiovascular: Cardiovascular: Reports no additional cardiovascular complaints and Denies syncope Respiratory: Respiratory: Denies cough Gastrointestinal: Gastrointestinal: Denies abdominal pain and Denies heartburn Genitourinary: Genitourinary: Reports as per HPI and Denies change in libido Neurologic: Denies syncope Psychiatric: Psychiatric: Denies change in libido Endocrine: Endocrine: Denies change in libido [facility] Past Medical History Medical History (Updated 11/14/21 @ 14:27 by Cindy Rodriguez MD) Choledocholithiasis DMII (diabetes mellitus, type 2) High cholesterol HTN (hypertension) Hydroureteronephrosis Kidney stones Morbid obesity Normocytic anemia Pyelonephritis UTI (urinary tract infection) Family History Family History Mother Coronary artery disease Diabetes Family history: reviewed and not pertinent Surgical History Surgical History No pertinent past surgical history Social History Social History Household Members: Significant Other Household Members Other:: 2 Housing: Apartment Do you presently have visiting nurse or other home services: No Alcohol intake: current Alcohol intake frequency: a few times a month Alcohol type: beer Patient Tobacco Use Status: Current everyday Tobacco user Tobacco use type: Cigarette Cigarettes Per Day: 5 Years Smoked: 41 Smoked in Last 30 Days: Yes Patient Interested in Nicotine Replacement: No Patient Given Instructions on How to Stop Smoking: Yes Date Education Initiated: 11/12/21 Second Hand Smoke Exposure: No Use of substances other than those prescribed or required for medical reasons: No Substance Use Type: Former Substance User Currently Displaying Signs/Symptoms of Drug Intoxication Withdrawal: No Have you been hit, kicked, punched, or otherwise hurt by someone within the past year? If so, by whom?: No Is there a partner from a previous relationship who is making you feel unsafe now?: No Are you made to feel afraid or neglected: No Advance Directives: No Do you have thoughts of harming others: None Do you have a plan to hurt others: No Plan Recently lost weight without trying: No Nutrition Risks: No Nutritional Risk service: No Current occupational status: unemployed Meds Allergies Allergy/AdvReac Type Severity Reaction Status Date / Time canagliflozin [From Invokana] Allergy Rash Verified 10/14/21 13:49 latex Allergy Itching Verified 10/14/21 13:49 metformin Allergy Hives Verified 10/14/21 13:49 Penicillins Allergy Rash Verified 10/14/21 13:49 sitagliptin [From Junuvia] Allergy Rash Verified 10/14/21 13:49 Active Medications: Current Medications Acetaminophen (Acetaminophen 325 Mg Tablet) 650 mg PO Q6H PRN PRN Reason: Pain, Mild (Pain Scale 1-3) Last Admin: 11/15/21 11:56 Dose: 650 mg Albuterol Sulfate (Albuterol Sulfate 90 Mcg 8 Gm Inhaler) 2 puff INHALE Q4H PRN PRN Reason: wheezing Amlodipine Besylate (Amlodipine Besylate 5 Mg Tablet) 5 mg PO DAILY [facility]; Protocol Last Admin: 11/15/21 08:06 Dose: 5 mg Aspirin (Aspirin Enteric Coated 81 Mg Tablet.) 81 mg PO DAILY [facility] Last Admin: 11/15/21 08:06 Dose: 81 mg Atorvastatin Calcium (Atorvastatin Calcium 80 Mg Tablet) 80 mg PO BEDTIME [facility] Last Admin: 11/14/21 20:31 Dose: 80 mg Buprenorphine/Naloxone (Buprenorphine/Naloxone 8/2 Mg Film) 1 film SUBLINGUAL TID [facility] Last Admin: 11/15/21 08:06 Dose: 1 film Clonazepam (Clonazepam 0.5 Mg Tablet) 0.25 mg PO DAILY PRN PRN Reason: anxiety Last Admin: 11/15/21 11:56 Dose: 0.25 mg Fluoxetine HCl (Fluoxetine Hcl 20 Mg Capsule) 60 mg PO DAILY [facility] Last Admin: 11/15/21 08:05 Dose: 60 mg Furosemide (Furosemide 20 Mg Tablet) 20 mg PO DAILY [facility]; Protocol Last Admin: 11/15/21 08:06 Dose: 20 mg Gabapentin (Gabapentin 600 Mg Tablet) 600 mg PO TID [facility] Last Admin: 11/15/21 08:06 Dose: 600 mg Ceftriaxone Sodium 2 gm/ (Sodium Chloride) 50 mls @ 100 mls/hr IV Q24H [facility] Last Infusion: 11/14/21 14:55 Dose: Infused Ibuprofen (Ibuprofen 800 Mg Tablet) 800 mg PO TID PRN PRN Reason: Pain, Mild (Pain Scale 1-3) Last Admin: 11/15/21 08:14 Dose: 800 mg Insulin Human Lispro (Insulin Lispro 100 Unit/Ml 3 Ml Vial) 0 unit SUBCUT QIDACHS [facility]; Protocol Last Admin: 11/15/21 11:57 Dose: 4 unit Insulin Human Lispro (Insulin Lispro 100 Unit/Ml 3 Ml Vial) 5 unit SUBCUT QIDACHS [facility] Levothyroxine Sodium (Levothyroxine Sodium 200 Mcg Tablet) 200 mcg PO DAILY@0630 [facility] Last Admin: 11/15/21 05:35 Dose: 200 mcg Lidocaine (Lidocaine 4 % Patch Adh..Patch) 1 patch TRANSDERMA DAILY [facility]; Protocol Last Admin: 11/15/21 08:05 Dose: 1 patch Loratadine (Loratadine 10 Mg Tablet) 10 mg PO DAILY [facility] Last Admin: 11/15/21 08:06 Dose: 10 mg Omeprazole (Omeprazole 20 Mg Capsule.Dr) 20 mg PO BID@0630,1630 [facility] Last Admin: 11/15/21 05:35 Dose: 20 mg Ondansetron HCl (Ondansetron Hcl 4 Mg/2 Ml Vial) 4 mg IVPUSH Q8H PRN PRN Reason: Nausea and Vomiting Pharmacy Consult (Consult Rx Perform Med Rec) 1 each MISCELLANE ONCE PRN PRN Reason: Consult order Sodium Chloride (0.9 % Sodium Chloride Flush 3 Ml Syringe) 3 ml IVFLUSH QSHIFT [facility] Last Admin: 11/15/21 08:06 Dose: 3 ml Trazodone HCl (Trazodone Hcl 100 Mg Tablet) 200 mg PO BEDTIME PRN PRN Reason: Insomnia Last Admin: 11/14/21 20:34 Dose: 200 mg Home Medications Medication Instructions Recorded Confirmed Last Taken Type albuterol sulfate 90 mcg/actuation 2 puff PO Q4H PRN wheezing 08/13/21 11/08/21 11/07/21 History aerosol inhaler (ProAir HFA) aspirin 81 mg tablet,delayed 1 tab PO DAILY 08/13/21 11/08/21 11/07/21 History release atorvastatin 80 mg tablet 1 tab PO BEDTIME 08/13/21 11/08/21 11/07/21 History buprenorphine 8 mg-naloxone 2 mg 1 strip sublingual TID 08/13/21 11/08/21 11/07/21 History sublingual film (Suboxone) fluoxetine 20 mg capsule 3 cap PO DAILY 08/13/21 11/08/21 11/07/21 History gabapentin 600 mg tablet 1 tab PO TID 08/13/21 11/08/21 11/07/21 History ibuprofen 800 mg tablet 1 tab PO TID PRN pain 08/13/21 11/08/21 11/07/21 History insulin glargine 100 unit/mL (3 22 - 54 unit subcut BID 08/13/21 11/08/21 11/07/21 History mL) subcutaneous pen (Lantus Solostar U-100 Insulin) insulin lispro 100 unit/mL 8 - 17 unit subcut TIDAC 08/13/21 11/08/21 11/07/21 History subcutaneous pen (Humalog KwikPen (U-100) Insulin) levothyroxine 200 mcg tablet 1 tab PO DAILY@0630 08/13/21 11/08/21 11/07/21 History loratadine 10 mg tablet 1 tab PO DAILY 08/13/21 11/08/21 11/07/21 History omeprazole 20 mg capsule,delayed 1 cap PO BID@0630,1630 08/13/21 11/08/21 11/07/21 History release trazodone 100 mg tablet 2 tab PO BEDTIME PRN Insomnia 08/13/21 11/08/21 11/07/21 History blood sugar diagnostic (FreeStyle #10 ea 09/21/21 11/08/21 11/07/21 History Lite Strips) pen needle, diabetic 31 gauge x #1,200 ea 09/21/21 11/08/21 11/07/21 History 5/16 (UltiCare Pen Needle) clonazepam 0.5 mg tablet 0.5 tab PO DAILY PRN Anxiety 10/05/21 11/08/21 11/07/21 History Physical Exam Vital Signs: Vital Signs: Last Vital Signs Temp 97.6 F 11/15/21 11:18 Pulse 75 11/15/21 11:18 Resp 18 11/15/21 11:18 BP 122/67 11/15/21 11:18 Pulse Ox 95 11/15/21 11:18 O2 Del Method 11/15/21 11:18 O2 Flow Rate 2 11/15/21 11:18 BMI result Body Mass Index 78.2 Const: General: cooperative, healthy appearing, comfortable and no acute distress Orientation/consciousness: patient oriented x3 HEENT: Face and sinus: Yes normal facial exam Mouth: moist mucous membranes Neck: Neck: Yes normal visual inspection, Yes full ROM and Yes trachea midline Chest: Chest palpation & inspection: normal inspection of the chest Resp: Effort & Inspection: normal respiratory effort, able to speak in comple te sentences and no respiratory distress GI: Inspection: Yes normal to inspection Back/Spine/Pelvis: Cervical Spine: normal cervical lordosis Thoracic/Lumbar Spine: thoracic and lumbar spine normal to inspection Skin: General skin exam: no rashes or lesions noted Neuro: General: patient oriented x3, gait normal, tone normal and moves all extremities Extrem: General: Yes normal to inspection and Yes capillary refill normal Results Labs Result diagrams: 11/15/21 06:10 11/15/21 06:10 Labs: Abnormal lab results 11/14/21 11/14/21 11/15/21 Range/Units 15:52 19:32 06:10 RBC 3.43 L (4.20-5.50) X10*6/uL Hgb 8.6 L (12.0-16.0) g/dl Hct 29.1 L (37.0-47.0) % MCH 25.1 L (27.0-33.0) pg MCHC 29.6 L (31.0-35.0) g/dl RDW 16.7 H (11.0-16.0) % Carbon Dioxide (22-29) mmol/L Anion Gap (12-20) BUN (9-16) mg/dL POC Glucose 230 H 208 H (60-115) mg/dL Random Glucose (60-115) mg/dL 0611/15/21 11/15/21 Range/Units 06:10 07:21 11:17 RBC (4.20-5.50) X10*6/uL Hgb (12.0-16.0) g/dl Hct (37.0-47.0) % MCH (27.0-33.0) pg MCHC (31.0-35.0) g/dl RDW (11.0-16.0) % Carbon Dioxide 32 H (22-29) mmol/L Anion Gap 10 L (12-20) BUN 28 H (9-16) mg/dL POC Glucose 218 H 248 H (60-115) mg/dL Random Glucose 256 H (60-115) mg/dL Short CBC 11/15/21 Range/Units 06:10 WBC 6.4 (4.8-10.8) X10*3/uL Hgb 8.6 L (12.0-16.0) g/dl Hct 29.1 L (37.0-47.0) % Plt Count 282 (160-400) X10*3/uL BMP 11/15/21 06:10 Sodium 135 Potassium 4.8 Chloride 98 Carbon Dioxide 32 H BUN 28 H Creatinine 1.29 Calcium 8.5 Urine 11/10/21 Range/Units 22:26 Urine Color YELLOW Urine Appearance HAZY Urine pH 7.0 (5.0-8.0) Ur Specific [place] 1.015 (1.005-1.025) Urine Protein 2+ H (NEG-TRACE) MG/DL Urine Glucose (UA) NEG (NEG) MG/DL All other labs normal. Assessment and Plan (1) Hydronephrosis of right kidney: Status: Acute Plan Conservative therapy Chronic right hydronephrosis Obtain Lasix renogram to show adequate emptying Procedures Date of Service Date of Service: 11/15/21
[2021-11-15] MEDS: cefTRIAXone sodium 2 GM in 0.9 % Sodium Chloride 50 ML IV (13:53)
[2021-11-15 15:20] VITALS: BP 140/74; PULSE 75; RESP 20; TEMP 36.4; O2SAT 98
[2021-11-15 15:29] LABS: Glucose, Whole Blood 288 mg/dL (60-115)
[2021-11-15 19:16] VITALS: BP 133/62; PULSE 69; RESP 16; TEMP 36.9; O2SAT 99
[2021-11-15 19:28] LABS: Glucose, Whole Blood 293 mg/dL (60-115)
[2021-11-15] MEDS: traZODone HCL 100 MG TABLET 200 MG PO (19:32)
[2021-11-15] MEDS: Atorvastatin Calcium 80 MG TABLET PO (19:33)
[2021-11-15 23:30] VITALS: BP 125/62; PULSE 70; RESP 18; TEMP 36.2; O2SAT 97
[2021-11-16 03:35] VITALS: BP 128/74; PULSE 67; RESP 18; TEMP 36.4; O2SAT 98
[2021-11-16] MEDS: Omeprazole 20 MG CAPSULE.DR PO ×2 (05:02→16:24)
[2021-11-16] MEDS: Levothyroxine Sodium 200 MCG TABLET PO (05:02)
[2021-11-16] MEDS: Ibuprofen 800 MG TABLET PO ×2 (05:04→20:25)
[2021-11-16 07:37] LABS: Glucose, Whole Blood 235 mg/dL (60-115)
[2021-11-16] MEDS: Gabapentin 600 MG TABLET PO ×3 (07:44→20:25)
[2021-11-16] MEDS: amLODIPine Besylate 5 MG TABLET PO (07:44)
[2021-11-16] MEDS: Acetaminophen 325 MG TABLET 650 MG PO (07:44)
[2021-11-16] MEDS: Aspirin Enteric Coated 81 MG TABLET.DR PO (07:44)
[2021-11-16] MEDS: Loratadine 10 MG TABLET PO (07:44)
[2021-11-16] MEDS: FLUoxetine HCl 20 MG CAPSULE 60 MG PO (07:44)
[2021-11-16] MEDS: Lidocaine 4 % Patch ADH..PATCH 1 PATCH TRANSDERMA (07:45)
[2021-11-16] MEDS: Furosemide 20 MG TABLET PO (07:47)
[2021-11-16] MEDS: Insulin Lispro 100 UNIT/ML 3 ML VIAL SUBCUT ×8 (07:48→20:28)
[2021-11-16] MEDS: 0.9 % Sodium Chloride Flush 3 ML SYRINGE IVFLUSH ×3 (07:50→20:28)
[2021-11-16 08:00] VITALS: BP 151/77; PULSE 75; RESP 18; TEMP 36.2; O2SAT 97
[2021-11-16] MEDS: Buprenorphine/Naloxone 8/2 mg FILM 1 FILM SUBLINGUAL ×3 (08:25→20:25)
[2021-11-16 11:41] VITALS: BP 110/60; PULSE 69; RESP 18; TEMP 36.3; O2SAT 95
[2021-11-16 11:48] LABS: Glucose, Whole Blood 223 mg/dL (60-115)
[2021-11-16] MEDS: clonazePAM 0.5 MG TABLET 0.25 MG PO (12:02)
[2021-11-16 14:10] VITALS: BP 143/80; PULSE 83; RESP 18; TEMP 36; O2SAT 100
[2021-11-16] MEDS: cefTRIAXone sodium 2 GM in 0.9 % Sodium Chloride 50 ML IV (15:08)
[2021-11-16 15:21] VITALS: BP 139/69; PULSE 78; RESP 20; TEMP 36.4; O2SAT 97
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
--- NOTE | 2021-11-16 16:16 | MHC.CM.PN ---
[facility].
[2021-11-16 16:17] LABS: Glucose, Whole Blood 265 mg/dL (60-115)
[2021-11-16 19:44] VITALS: BP 136/74; PULSE 89; RESP 20; TEMP 36.4; O2SAT 98
[2021-11-16] MEDS: Atorvastatin Calcium 80 MG TABLET PO (20:25)
[2021-11-16] MEDS: Insulin Glargine,Hum.rec.anlog 100 UNIT/ML 10 ML VIAL 12 UNIT SUBCUT (20:26)
[2021-11-16] MEDS: traZODone HCL 100 MG TABLET 200 MG PO (20:26)
[2021-11-16 20:27] LABS: Glucose, Whole Blood 265 mg/dL (60-115)
[2021-11-17] VITALS: BP 137/71; PULSE 75; RESP 17; TEMP 36.1; O2SAT 97
[2021-11-17 04:00] VITALS: BP 133/74; PULSE 72; RESP 18; TEMP 36.5; O2SAT 97
[2021-11-17] MEDS: Omeprazole 20 MG CAPSULE.DR PO ×2 (06:22→16:25)
[2021-11-17] MEDS: Levothyroxine Sodium 200 MCG TABLET PO (06:22)
[2021-11-17 07:26] VITALS: BP 144/83; PULSE 73; RESP 17; TEMP 36.7; O2SAT 96
[2021-11-17 07:43] LABS: Glucose, Whole Blood 216 mg/dL (60-115)
[2021-11-17] MEDS: Lidocaine 4 % Patch ADH..PATCH 1 PATCH TRANSDERMA (07:58)
[2021-11-17] MEDS: Furosemide 20 MG TABLET PO (07:58)
[2021-11-17] MEDS: Aspirin Enteric Coated 81 MG TABLET.DR PO (07:59)
[2021-11-17] MEDS: Gabapentin 600 MG TABLET PO ×3 (07:59→21:26)
[2021-11-17] MEDS: amLODIPine Besylate 5 MG TABLET PO (07:59)
[2021-11-17] MEDS: FLUoxetine HCl 20 MG CAPSULE 60 MG PO (07:59)
[2021-11-17] MEDS: Loratadine 10 MG TABLET PO (07:59)
[2021-11-17] MEDS: Insulin Lispro 100 UNIT/ML 3 ML VIAL SUBCUT ×8 (08:00→21:27)
[2021-11-17] MEDS: 0.9 % Sodium Chloride Flush 3 ML SYRINGE IVFLUSH ×2 (08:02→14:13)
[2021-11-17] MEDS: Buprenorphine/Naloxone 8/2 mg FILM 1 FILM SUBLINGUAL ×3 (09:12→21:26)
[2021-11-17 11:24] LABS: Glucose, Whole Blood 197 mg/dL (60-115)
[2021-11-17 11:37] LABS: Haptoglobin 307 mg/dL (43-212)
[2021-11-17 11:54] VITALS: BP 155/74; PULSE 81; RESP 18; TEMP 36.1; O2SAT 95
[2021-11-17 12:17] LABS: COVID-19 Test Negative (Negative); IDNOW Serial# 16C4AD1C
--- NOTE | 2021-11-17 13:39 | CONS_ITS ---
DATE OF SERVICE: 11/17/2021 REASON FOR CONSULTATION: I was called to see this patient to assist in management of acute kidney injury. HISTORY OF PRESENT ILLNESS: To summarize, Betzaida is a 51-year-old woman with morbid obesity. She has a history of obstructive uropathy. She underwent a right stent placement in August 2021. She comes in because of leg swelling. She was found to have a right hydronephrosis. Lasix washout scan showed left kidney is 71% and right kidney of 21% with delayed excretion of the dye suggestive of obstruction. Against this background, she has also been taking ibuprofen almost regularly for a long time. At the time of admission, she had a serum creatinine of 1.29 mg/dL. The baseline is somewhere around 1.1 mg/dL. In the past, she did have acute kidney injury with a creatinine at 1.8 mg/dL back in August 2021. ONGOING MEDICAL PROBLEMS: Include history of morbid obesity; diabetes mellitus; hypertension; right hydronephrosis, status post stent; anemia; history of pyelonephritis; UTI. FAMILY HISTORY: Significant for coronary artery disease and diabetes. PAST SURGICAL HISTORY: Significant for right stent placement. SOCIAL HISTORY: History of smoking about 10 cigarettes a day. No history of any alcohol abuse. ALLERGIES: SHE IS ALLERGIC TO INVOKANA, LATEX, METFORMIN, PENICILLIN, SITAGLIPTIN. CURRENT MEDICATIONS: Include albuterol, amlodipine, aspirin, atorvastatin, furosemide 20 mg, gabapentin, ibuprofen, insulin, omeprazole, trazodone. Home medications were reviewed. REVIEW OF SYSTEMS: Positive for generalized swelling and abdominal pain. No nausea or vomiting. or constipation. No urinary symptoms. No fever. No rash. PHYSICAL EXAMINATION: GENERAL: Betzaida is a middle-aged woman. She is obese, comfortable. LUNGS: Air entry equal. HEART: No gallop or rub. ABDOMEN: Obese, soft, nontender. EXTREMITIES: No edema. No rash. No clubbing. VITAL SIGNS: Blood pressure 140/80, pulse 73. LABORATORY DATA: Sodium 130, potassium 4.8, BUN 20, creatinine 1.28. Blood sugars in the 200s. Hemoglobin 8.6, platelets 282. Urinalysis showed 2+ protein by dipstick, 3+ blood with trace leukocyte esterase. Renal scan showed left kidney contributing 79%, right kidney contributing 21% with delayed excretion suggestive of obstruction. She had a CT abdomen and pelvis on November 12, which showed right-sided hydronephrosis with proximal ureteral dilatation. IMPRESSION: A 51-year-old woman with morbid obesity, hypertension, diabetes mellitus with stage 3 chronic kidney disease, most likely due to ongoing obstructive uropathy. She also has had component of acute kidney injury, which is probably related to the use of NSAIDs. She does have significant proteinuria, hematuria, this may be due to the combination of the obstruction as well as underlying diabetic hypertensive kidney disease or obesity related hyper filtration. RECOMMENDATION: Will be to keep on a low-sodium diet. Keep on Lasix. Avoid NSAIDs. Continue to avoid all other nephrotoxic agents. Ongoing followup with the Urology regarding the obstruction. At present, renal function is close to baseline and we will follow along with the team. Neo Durham MD BPA/MODL / [id number]
[2021-11-17] MEDS: Acetaminophen 325 MG TABLET 650 MG PO ×2 (14:08→21:26)
[2021-11-17] MEDS: clonazePAM 0.5 MG TABLET 0.25 MG PO (14:12)
[2021-11-17 15:46] VITALS: BP 131/66; PULSE 80; RESP 18; TEMP 36.7; O2SAT 95
[2021-11-17 16:07] LABS: Glucose, Whole Blood 240 mg/dL (60-115)
--- NOTE | 2021-11-17 16:07 | HO.PM.IMPN ---
Subjective Subjective Date of Service: 11/18/21 Interval History: No acute events overnight, concern about abdominal swelling, no nausea vomiting, tolerating diet, no fever , no chills. 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 awake alert, in no acute distress.? Neck? no JVD. CVS? regular rate rhythm, Respiratory lungs clear to auscultation, no respiratory distress, no wheeze, no rhonchi. Gastrointestinal abdomen soft, nontender, bowel sounds audible,no guarding , no rigidity. Extremities no? pitting edema. left knee no redness no swelling no warmth, limited range of motion Neuro nonfocal , speech clear. Skin no rash Objective Data Active Medications Acetaminophen (Acetaminophen 325 Mg Tablet) 650 mg PO Q6H PRN PRN Reason: Pain, Mild (Pain Scale 1-3) Last Admin: 11/17/21 14:08 Dose: 650 mg Documented By: ANDRESSA Albuterol Sulfate (Albuterol Sulfate 90 Mcg 8 Gm Inhaler) 2 puff INHALE Q4H PRN PRN Reason: wheezing Amlodipine Besylate (Amlodipine Besylate 5 Mg Tablet) 5 mg PO DAILY [facility]; Protocol Last Admin: 11/17/21 07:59 Dose: 5 mg Documented By: ANDRESSA Aspirin (Aspirin Enteric Coated 81 Mg Tablet.) 81 mg PO DAILY [facility] Last Admin: 11/17/21 07:59 Dose: 81 mg Documented By: ANDRESSA Atorvastatin Calcium (Atorvastatin Calcium 80 Mg Tablet) 80 mg PO BEDTIME [facility] Last Admin: 11/16/21 20:25 Dose: 80 mg Documented By: DICK Buprenorphine/Naloxone (Buprenorphine/Naloxone 8/2 Mg Film) 1 film SUBLINGUAL TID [facility] Last Admin: 11/17/21 14:06 Dose: 1 film Documented By: ANDRESSA Clonazepam (Clonazepam 0.5 Mg Tablet) 0.25 mg PO DAILY PRN PRN Reason: anxiety Last Admin: 11/17/21 14:12 Dose: 0.25 mg Documented By: ANDRESSA Fluoxetine HCl (Fluoxetine Hcl 20 Mg Capsule) 60 mg PO DAILY [facility] Last Admin: 11/17/21 07:59 Dose: 60 mg Documented By: ANDRESSA Furosemide (Furosemide 20 Mg Tablet) 20 mg PO DAILY [facility]; Protocol Last Admin: 11/17/21 07:58 Dose: 20 mg Documented By: ANDRESSA Gabapentin (Gabapentin 600 Mg Tablet) 600 mg PO TID [facility] Last Admin: 11/17/21 14:07 Dose: 600 mg Documented By: ANDRESSA Ibuprofen (Ibuprofen 800 Mg Tablet) 800 mg PO TID PRN PRN Reason: Pain, Mild (Pain Scale 1-3) Last Admin: 11/16/21 20:25 Dose: 800 mg Documented By: DICK Insulin Glargine (Insulin Glargine,Hum.Rec.Anlog 100 Unit/Ml 10 Ml Vial) 12 unit SUBCUT BEDTIME [facility] Last Admin: 11/16/21 20:26 Dose: 12 unit Documented By: DICK Insulin Human Lispro (Insulin Lispro 100 Unit/Ml 3 Ml Vial) 0 unit SUBCUT QIDACHS [facility]; Protocol Last Admin: 11/17/21 11:53 Dose: 2 unit Documented By: ANDRESSA Insulin Human Lispro (Insulin Lispro 100 Unit/Ml 3 Ml Vial) 5 unit SUBCUT QIDACHS [facility] Last Admin: 11/17/21 11:51 Dose: 5 unit Documented By: ANDRESSA Levothyroxine Sodium (Levothyroxine Sodium 200 Mcg Tablet) 200 mcg PO DAILY@0630 [facility] Last Admin: 11/17/21 06:22 Dose: 200 mcg Documented By: DICK Lidocaine (Lidocaine 4 % Patch Adh..Patch) 1 patch TRANSDERMA DAILY [facility]; Protocol Last Admin: 11/17/21 07:58 Dose: 1 patch Documented By: ANDRESSA Loratadine (Loratadine 10 Mg Tablet) 10 mg PO DAILY [facility] Last Admin: 11/17/21 07:59 Dose: 10 mg Documented By: ANDRESSA Omeprazole (Omeprazole 20 Mg Capsule.) 20 mg PO BID@0630,1630 [facility] Last Admin: 11/17/21 06:22 Dose: 20 mg Documented By: DICK Ondansetron HCl (Ondansetron Hcl 4 Mg/2 Ml Vial) 4 mg IVPUSH Q8H PRN PRN Reason: Nausea and Vomiting Pharmacy Consult (Consult Rx Perform Med Rec) 1 each MISCELLANE ONCE PRN PRN Reason: Consult order Sodium Chloride (0.9 % Sodium Chloride Flush 3 Ml Syringe) 3 ml IVFLUSH QSHIFT [facility] Last Admin: 11/17/21 14:13 Dose: 3 ml Documented By: ANDRESSA Trazodone HCl (Trazodone Hcl 100 Mg Tablet) 200 mg PO BEDTIME PRN PRN Reason: Insomnia Last Admin: 11/16/21 20:26 Dose: 200 mg Documented By: DICK Labs CBC & Chem 7: 11/15/21 06:10 11/15/21 06:10 Labs: Laboratory Results - last 24 hr 11/14/21 11/16/21 11/16/21 06:35 16:13 19:57 Haptoglobin 307 H POC Glucose 265 H 265 H COVID-19 ([facility]) COVID-19 Clin Com 11/17/21 11/17/21 11/17/21 07:24 11:15 11:45 Haptoglobin POC Glucose 216 H 197 H COVID-19 ([facility]) Negative COVID-19 Clin Com See Note Assessment and Plan (1) Acute respiratory failure with hypoxia: Status: Resolved (2) RADHIKA (acute kidney injury): Status: Resolved Plan 51-year-old woman initially presented to the ER with lower extremity swelling, the plan was to place her in short-term rehab however after several days patient was noted to have some swelling in her abdomen and abdominal CT showed hydronephrosis, therefore was requested that patient be admitted for further management. unvaccinated. acute on chronic Normocytic anemia Likely anemia of chronic renal disease ckd 3 Normal iron studies , normal B12 and folate status post 1 unit of packed RBC hematocrit improved and remained stable right-sided Hydronephrosis and proximal ureteral dilatation. renal functions stable, seen by Urology, no further intervention recommended since has chronic right hydronephrosis, Lasix renogram obtained that showed diminished function in right, normal perfusion uptake and function on the left, recommend outpatient follow-up with Urology, obtained Nephro consult for chronic kidney disease and abnormal renogram. UTI UA positive urine culture not collected due to incontinence,status post 5 days of Rocephin Chronic lower extremity edema doppler us neg for dvt, recommended low-calorie diet likely related to obesity, anemia and hypoalbuminemia recommend high-protein diet. Left knee pain. chronic, x-ray knee suggestive of severe arthritis, recommend weight reduction Tylenol Diabetes mellitus Blood sugar 223, continue pre meal insulin, ADA diet and Lantus 10 units at bedtime Mental health Continue home medications Hypothyroidism Continue levothyroxine Hypertension Stable blood pressure continue amlodipine COPD/asthma no acute exacerbation, Continue as needed inhaler, wean oxygen, was on as needed oxygen in the past. Hyperlipidemia Continue statin GERD Continue PPI opiate use disorder continue Suboxone Morbid obesity.? BMI 78.3 Discussed the importance of weight management as this is likely contributing to worsening of other comorbidities seen by physical therapy they recommend short-term rehab for optimal functional gains. DVT prophylaxis with heparin Full code Patient requires continued hospitalization since waiting for safe discharge to rehab , arranging for bed has multiple obstacles since unvaccinated, on Suboxone. Quality Stroke Does the patient have a stroke diagnosis?: No VTE Prior VTE?: No VTE Risk Level:: Medical - moderate - high VTE Device Contraindication: Treatment Not Indicated VTE Drug Contraindication: N/A - Med Ordered
[2021-11-17 19:38] VITALS: BP 119/64; PULSE 76; RESP 17; TEMP 36.2; O2SAT 94
[2021-11-17 20:02] LABS: Glucose, Whole Blood 284 mg/dL (60-115)
[2021-11-17] MEDS: Atorvastatin Calcium 80 MG TABLET PO (21:26)
[2021-11-17] MEDS: traZODone HCL 100 MG TABLET 200 MG PO (21:26)
[2021-11-17] MEDS: Insulin Glargine,Hum.rec.anlog 100 UNIT/ML 10 ML VIAL 12 UNIT SUBCUT (21:26)
[2021-11-17 22:44] LABS: Glucose, Whole Blood 218 mg/dL (60-115)
[2021-11-18] VITALS (8 sets, daily range): BP systolic 127–145; BP diastolic 62–77; PULSE 72–84; RESP 16–18; TEMP 36.1–36.6; O2SAT 93–96
[2021-11-18] MEDS: Omeprazole 20 MG CAPSULE.DR PO ×2 (05:36→17:32)
[2021-11-18] MEDS: Levothyroxine Sodium 200 MCG TABLET PO (05:36)
[2021-11-18 07:34] LABS: Glucose, Whole Blood 165 mg/dL (60-115)
[2021-11-18] MEDS: Lidocaine 4 % Patch ADH..PATCH 1 PATCH TRANSDERMA (07:46)
[2021-11-18] MEDS: FLUoxetine HCl 20 MG CAPSULE 60 MG PO (07:47)
[2021-11-18] MEDS: Loratadine 10 MG TABLET PO (07:48)
[2021-11-18] MEDS: Gabapentin 600 MG TABLET PO ×3 (07:48→21:00)
[2021-11-18] MEDS: Insulin Lispro 100 UNIT/ML 3 ML VIAL SUBCUT ×8 (07:48→21:01)
[2021-11-18] MEDS: Aspirin Enteric Coated 81 MG TABLET.DR PO (07:49)
[2021-11-18] MEDS: amLODIPine Besylate 5 MG TABLET PO (07:49)
[2021-11-18] MEDS: Buprenorphine/Naloxone 8/2 mg FILM 1 FILM SUBLINGUAL ×3 (07:49→21:00)
[2021-11-18] MEDS: Furosemide 20 MG TABLET PO (07:49)
[2021-11-18] MEDS: 0.9 % Sodium Chloride Flush 3 ML SYRINGE IVFLUSH ×2 (07:50→21:02)
[2021-11-18] MEDS: Acetaminophen 325 MG TABLET 650 MG PO ×2 (07:56→21:00)
[2021-11-18 11:46] LABS: Glucose, Whole Blood 176 mg/dL (60-115)
--- NOTE | 2021-11-18 12:24 | P.PNNP_ITS ---
Subjective Subjective Date of Service: 11/18/21 Interval history: No acute events overnight, concern about abdominal swelling, no nausea vomiting, tolerating diet, no fever , no chills. Physical Exam Vital Signs: Vital Signs: Last Vital Signs Temp 97.4 F 11/18/21 12:00 Pulse 77 11/18/21 12:00 Resp 18 11/18/21 12:00 BP 134/67 11/18/21 12:00 Pulse Ox 93 11/18/21 12:00 O2 Del Method 11/18/21 12:00 O2 Flow Rate 1.0 11/18/21 12:00 BMI result Body Mass Index 78.2 Const: Other: General? awake alert, in no acute distress.? Neck? no JVD. CVS? regular rate rhythm, Respiratory lungs clear to auscultation, no respiratory distress, no wheeze, no rhonchi. Gastrointestinal abdomen soft, nontender, bowel sounds audible,no guarding , no rigidity. Extremities no? pitting edema. left knee no redness no swelling no warmth, limited range of motion Neuro nonfocal , speech clear. Skin no rash Objective Data Labs CBC & Chem 7: 11/15/21 06:10 11/15/21 06:10 Labs: Laboratory Results - last 24 hr 11/17/21 11/17/21 11/17/21 15:49 19:54 22:40 POC Glucose 240 H 284 H 218 H 11/18/21 11/18/21 07:23 11:23 POC Glucose 165 H 176 H Microbiology Microbiology Results: Microbiology 11/12/21 15:29 Blood - Venous Blood Culture - Final No growth after 5 days. 11/12/21 15:29 Blood - Venous Blood Culture - Final No growth after 5 days. 11/12/21 17:18 Urine clean catch - Clean Catch Midstream Urine Culture - Fin al Procedures Date of Service Date of Service: 11/18/21 Assessment & Plan Assessment and plan (1) Acute respiratory failure with hypoxia: Status: Resolved (2) RADHIKA (acute kidney injury): Status: Resolved Plan 51-year-old woman with morbid obesity, hypertension, diabetes mellitus with stage 3 chronic kidney disease, most likely due to ongoing obstructive uropathy. ? She also has had component of acute kidney injury, which is probably related to the use of NSAIDs.? She does have significant proteinuria, hematuria, this may be due to the combination of the obstruction as well as underlying diabetic hypertensive kidney disease or obesity related hyper filtration. ? RECOMMENDATION:? Will be to keep on a low-sodium diet.? Keep on Lasix.? Avoid NSAIDs.? Continue to avoid all other nephrotoxic agents.? Ongoing followup with the Urology regarding the obstruction.? At present, renal function is close to baseline and we will follow along with the team. ? Time Spent With Patient Time: Total time spent is greater than 50% in coordination of care (as documented) at patient's floor/unit and/or counseling patient: Progress Note: Quality Stroke Does the patient have a stroke diagnosis?: No
--- NOTE | 2021-11-18 13:23 | MHC.CM.PN ---
[facility] IS OFFERING RN SKILLS AND THEN CAN OPEN PATIENT UP FOR HOME P.T. CASE MANAGEMENT ATTEMPTING TO DC PATIENT
[2021-11-18] MEDS: clonazePAM 0.5 MG TABLET 0.25 MG PO (14:03)
--- NOTE | 2021-11-18 14:56 | MHC.CM.PN ---
NEW SNF REFERRAL LIST [facility] REFERRAL PLACED. REFERRAL [id number]
[2021-11-18 17:05] LABS: Glucose, Whole Blood 160 mg/dL (60-115)
--- NOTE | 2021-11-18 17:10 | P.PNIM_ITS ---
Subjective Subjective Date of Service: 11/18/21 Interval History: complaining of left knee pain, no acute issues overnight denies nausea vomiting diarrhea no fevers, no chills, no lightheadedness, or dizziness, tolerating diet. 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 awake adri rt, no acute distr ess.? Neck? no JVD . CVS? regular rat e rhythm, Respirat ory lungs clear to auscultation, no respiratory distre ss, no wheeze, no rhonchi. Gastroint estinal abdomen so ft, nontender, bow el sounds audible, no guarding , no r igidity. Extremiti es no? pitting jose ma. left knee no r edness no swelling no warmth, limite d range of motion Neuro nonfocal , s peech clear. Skin no rash Objective Data Active Medications Acetaminophen (Acetaminophen 325 Mg Tablet) 650 mg PO Q6H PRN PRN Reason: Pain, Mild (Pain Scale 1-3) Last Admin: 11/18/21 07:56 Dose: 650 mg Documented By: CECY Albuterol Sulfate (Albuterol Sulfate 90 Mcg 8 Gm Inhaler) 2 puff INHALE Q4H PRN PRN Reason: wheezing Amlodipine Besylate (Amlodipine Besylate 5 Mg Tablet) 5 mg PO DAILY [facility]; Protocol Last Admin: 11/18/21 07:49 Dose: 5 mg Documented By: CECY Aspirin (Aspirin Enteric Coated 81 Mg Tablet.) 81 mg PO DAILY [facility] Last Admin: 11/18/21 07:49 Dose: 81 mg Documented By: CECY Atorvastatin Calcium (Atorvastatin Calcium 80 Mg Tablet) 80 mg PO BEDTIME [facility] Last Admin: 11/17/21 21:26 Dose: 80 mg Documented By: DICK Buprenorphine/Naloxone (Buprenorphine/Naloxone 8/2 Mg Film) 1 film SUBLINGUAL TID [facility] Last Admin: 11/18/21 15:33 Dose: 1 film Documented By: EMMANUEL Clonazepam (Clonazepam 0.5 Mg Tablet) 0.25 mg PO DAILY PRN PRN Reason: anxiety Last Admin: 11/18/21 14:03 Dose: 0.25 mg Documented By: CECY Fluoxetine HCl (Fluoxetine Hcl 20 Mg Capsule) 60 mg PO DAILY [facility] Last Admin: 11/18/21 07:47 Dose: 60 mg Documented By: CECY Furosemide (Furosemide 20 Mg Tablet) 20 mg PO DAILY [facility]; Protocol Last Admin: 11/18/21 07:49 Dose: 20 mg Documented By: CECY Gabapentin (Gabapentin 600 Mg Tablet) 600 mg PO TID [facility] Last Admin: 11/18/21 15:33 Dose: 600 mg Documented By: EMMANUEL Ibuprofen (Ibuprofen 800 Mg Tablet) 800 mg PO TID PRN PRN Reason: Pain, Mild (Pain Scale 1-3) Last Admin: 11/16/21 20:25 Dose: 800 mg Documented By: DICK Insulin Glargine (Insulin Glargine,Hum.Rec.Anlog 100 Unit/Ml 10 Ml Vial) 12 unit SUBCUT BEDTIME [facility] Last Admin: 11/17/21 21:26 Dose: 12 unit Documented By: DICK Insulin Human Lispro (Insulin Lispro 100 Unit/Ml 3 Ml Vial) 0 unit SUBCUT QIDACHS [facility]; Protocol Last Admin: 11/18/21 12:21 Dose: 2 unit Documented By: CECY Insulin Human Lispro (Insulin Lispro 100 Unit/Ml 3 Ml Vial) 5 unit SUBCUT QIDACHS [facility] Last Admin: 11/18/21 12:22 Dose: 5 unit Documented By: CECY Levothyroxine Sodium (Levothyroxine Sodium 200 Mcg Tablet) 200 mcg PO DAILY@0630 [facility] Last Admin: 11/18/21 05:36 Dose: 200 mcg Documented By: DICK Lidocaine (Lidocaine 4 % Patch Adh..Patch) 1 patch TRANSDERMA DAILY [facility]; Protocol Last Admin: 11/18/21 07:46 Dose: 1 patch Documented By: CECY Loratadine (Loratadine 10 Mg Tablet) 10 mg PO DAILY [facility] Last Admin: 11/18/21 07:48 Dose: 10 mg Documented By: CECY Omeprazole (Omeprazole 20 Mg Capsule.Dr) 20 mg PO BID@0630,1630 [facility] Last Admin: 11/18/21 05:36 Dose: 20 mg Documented By: DICK Ondansetron HCl (Ondansetron Hcl 4 Mg/2 Ml Vial) 4 mg IVPUSH Q8H PRN PRN Reason: Nausea and Vomiting Pharmacy Consult (Consult Rx Perform Med Rec) 1 each MISCELLANE ONCE PRN PRN Reason: Consult order Sodium Chloride (0.9 % Sodium Chloride Flush 3 Ml Syringe) 3 ml IVFLUSH QSHIFT [facility] Last Admin: 11/18/21 15:34 Dose: Not Given Documented By: EMMANUEL Non-Admin Reason: No Access Trazodone HCl (Trazodone Hcl 100 Mg Tablet) 200 mg PO BEDTIME PRN PRN Reason: Insomnia Last Admin: 11/17/21 21:26 Dose: 200 mg Documented By: DICK Labs CBC & Chem 7: 11/15/21 06:10 11/15/21 06:10 Labs: Laboratory Results - last 24 hr 11/17/21 11/17/21 11/18/21 19:54 22:40 07:23 POC Glucose 284 H 218 H 165 H 11/18/21 11/18/21 11:23 17:02 POC Glucose 176 H 160 H Microbiology Microbiology Results: Microbiology 11/12/21 18:03 Blood Fungal Culture - Preliminary Blood - Venous 11/12/21 15:29 Blood Culture - Final Blood - Venous No growth after 5 days. 11/12/21 15:29 Blood Culture - Final Blood - Venous No growth after 5 days. Assessment and Plan (1) Acute respiratory failure with hypoxia: Status: Resolved (2) RADHIKA (acute kidney injury): Status: Resolved Plan 51-year-old woman initially presented to the ER with lower extremity swelling, the plan was to place her in short-term rehab however after several days patient was noted to have some swelling in her abdomen and abdominal CT showed hydronephrosis, therefore was requested that patient be admitted for further management. unvaccinated. acute on chronic Normocytic anemia Likely anemia of chronic renal disease ckd 3 Normal iron studies , normal B12 and folate status post 1 unit of packed RBC hematocrit improved and remained stable right-sided Hydronephrosis and proximal ureteral dilatation. renal functions stable, seen by Urology, no further intervention recommended since has chronic right hydronephrosis, Lasix renogram obtained that showed diminished function in right, normal perfusion uptake and function on the left, recommend outpatient follow-up with Urology, seen by Nephrology they recommend to continue Lasix and to avoid other nephrotoxic agents UTI UA positive urine culture not collected due to incontinence,status post 5 days of Rocephin Chronic lower extremity edema doppler us neg for dvt, recommended low-calorie diet likely related to obesity, anemia and hypoalbuminemia recommend high-protein diet. Left knee pain. chronic, x-ray knee suggestive of severe arthritis, recommend weight reduction Tylenol Diabetes mellitus Blood sugar elevated will increase dose of Lantus to 15 units, at home take Lantus between 22-54 units twice daily, continue pre meal insulin, and ADA diet , will check hemoglobin A1c Mental health Continue home medications Prozac 60 mg daily Hypothyroidism Continue levothyroxine, check TSH Hypertension Stable blood pressure continue amlodipine COPD/asthma no acute exacerbation, Continue as needed inhaler, wean oxygen, was on as needed oxygen in the past. Hyperlipidemia Continue Lipitor 80 mg at bedtime GERD Continue PPI opiate use disorder continue Suboxone Morbid obesity.? BMI 78.3 Discussed the importance of weight management as this is likely contributing to worsening of other comorbidities seen by physical therapy they recommend short-term rehab for optimal functional gains. DVT prophylaxis with heparin Full code Patient requires continued hospitalization since waiting for safe discharge to rehab , arranging for bed has multiple obstacles since unvaccinated, on Suboxone. Quality Stroke Does the patient have a stroke diagnosis?: No VTE Prior VTE?: No VTE Risk Level:: Medical - moderate - high VTE Device Contraindication: Treatment Not Indicated VTE Drug Contraindication: N/A - Med Ordered
[2021-11-18 20:22] LABS: Glucose, Whole Blood 154 mg/dL (60-115)
[2021-11-18] MEDS: Atorvastatin Calcium 80 MG TABLET PO (21:00)
[2021-11-18] MEDS: traZODone HCL 100 MG TABLET 200 MG PO (21:00)
[2021-11-18] MEDS: Insulin Glargine,Hum.rec.anlog 100 UNIT/ML 10 ML VIAL 15 UNIT SUBCUT (21:01)
[2021-11-19] VITALS: BP 146/65; PULSE 79; RESP 14; TEMP 36.8; O2SAT 94
[2021-11-19 03:39] VITALS: BP 130/68; PULSE 75; RESP 18; TEMP 36.4; O2SAT 93
[2021-11-19] MEDS: Levothyroxine Sodium 200 MCG TABLET PO (06:02)
[2021-11-19] MEDS: Omeprazole 20 MG CAPSULE.DR PO ×2 (06:02→16:30)
[2021-11-19 07:06] LABS: Estimated Average Glucose 217 mg/dL; Hemoglobin A1c % 9.2 %
[2021-11-19 07:14] LABS: Anion Gap 11 (12-20); Blood Urea Nitrogen 37 mg/dL (9-16); Calcium 8.8 mg/dL (8.4-10.2); Carbon Dioxide 32 mmol/L (22-29); Chloride 99 mmol/L (96-108); Creatinine Clr Calc Pharmacy 104.3; Estimated Glomerular Filt Rate 43; Glucose Random 169 mg/dL (60-115); Sodium 137 mmol/L (135-145)
[2021-11-19 07:16] LABS: Glucose, Whole Blood 163 mg/dL (60-115)
[2021-11-19] MEDS: Insulin Lispro 100 UNIT/ML 3 ML VIAL SUBCUT ×8 (07:29→20:39)
[2021-11-19] MEDS: Furosemide 20 MG TABLET PO (07:30)
[2021-11-19] MEDS: Gabapentin 600 MG TABLET PO ×3 (07:30→20:39)
[2021-11-19] MEDS: amLODIPine Besylate 5 MG TABLET PO (07:30)
[2021-11-19] MEDS: FLUoxetine HCl 20 MG CAPSULE 60 MG PO (07:30)
[2021-11-19] MEDS: 0.9 % Sodium Chloride Flush 3 ML SYRINGE IVFLUSH ×3 (07:31→20:39)
[2021-11-19] MEDS: Loratadine 10 MG TABLET PO (07:31)
[2021-11-19] MEDS: Buprenorphine/Naloxone 8/2 mg FILM 1 FILM SUBLINGUAL ×3 (07:31→20:39)
[2021-11-19] MEDS: Lidocaine 4 % Patch ADH..PATCH 1 PATCH TRANSDERMA (07:31)
[2021-11-19] MEDS: Aspirin Enteric Coated 81 MG TABLET.DR PO (07:31)
[2021-11-19 07:36] LABS: Thyroid Stimulating Hormone 20.29 uIU/mL (0.32-4.0)
[2021-11-19] MEDS: Acetaminophen 325 MG TABLET 650 MG PO ×2 (07:41→14:10)
[2021-11-19 07:48] VITALS: PULSE 83; RESP 20; TEMP 36.7; O2SAT 92
[2021-11-19 10:55] LABS: Glucose, Whole Blood 217 mg/dL (60-115)
[2021-11-19] MEDS: clonazePAM 0.5 MG TABLET 0.25 MG PO (11:13)
[2021-11-19 11:38] VITALS: BP 150/76; PULSE 87; RESP 18; TEMP 37; O2SAT 87
--- NOTE | 2021-11-19 13:12 | PM.PNNEP ---
Subjective Subjective Date of Service: 11/19/21 Interval history: Events noted Physical Exam Vital Signs: Vital Signs: Last Vital Signs Temp 98.6 F 11/19/21 11:38 Pulse 87 11/19/21 11:38 Resp 18 11/19/21 11:38 BP 150/76 H 11/19/21 11:38 Pulse Ox 87 L 11/19/21 11:38 O2 Del Method 11/19/21 11:38 O2 Flow Rate 1 11/19/21 07:48 BMI result Body Mass Index 78.2 Const: Other: General? awake alert, in no acute distress.? Neck? no JVD. CVS? regular rate rhythm, Respiratory lungs clear to auscultation, no respiratory distress, no wheeze, no rhonchi. Gastrointestinal abdomen soft, nontender, bowel sounds audible,no guarding , no rigidity. Extremities no? pitting edema. left knee no redness no swelling no warmth, limited range of motion Neuro nonfocal , speech clear. Skin no rash Objective Data Labs CBC & Chem 7: 11/15/21 06:10 11/19/21 06:06 Labs: Laboratory Results - last 24 hr 11/18/21 11/18/21 11/19/21 17:02 20:18 06:06 Sodium 137 Potassium 5.0 Chloride 99 Carbon Dioxide 32 H Anion Gap 11 L BUN 37 H Creatinine 1.30 Estim Creat Clear Calc 104.3 Estimated GFR 43 POC Glucose 160 H 154 H Random Glucose 169 H Estimat Average Glucose Hemoglobin A1c % Calcium 8.8 TSH 20.29 H 11/19/21 11/19/21 11/19/21 06:06 07:12 10:51 Sodium Potassium Chloride Carbon Dioxide Anion Gap BUN Creatinine Estim Creat Clear Calc Estimated GFR POC Glucose 163 H 217 H Random Glucose Estimat Average Glucose 217 Hemoglobin A1c % 9.2 Calcium TSH Microbiology Microbiology Results: Microbiology 11/12/21 18:03 Blood - Venous Blood Fungal Culture - Preliminary 11/12/21 15:29 Blood - Venous Blood Culture - Final No growth after 5 days. 11/12/21 15:29 Blood - Venous Blood Culture - Final No growth after 5 days. 11/12/21 17:18 Urine clean catch - Clean Catch Midstream Urine Culture - Final Procedures Date of Service Date of Service: 11/19/21 Assessment & Plan Assessment and plan (1) Acute respiratory failure with hypoxia: Status: Resolved (2) RADHIKA (acute kidney injury): Status: Resolved Plan 51-year-old woman with morbid obesity, hypertension, diabetes mellitus with stage 3 chronic kidney disease, most likely due to ongoing obstructive uropathy. ? She also has had component of acute kidney injury, which is probably related to the use of NSAIDs.? She does have significant proteinuria, hematuria, this may be due to the combination of the obstruction as well as underlying diabetic hypertensive kidney disease or obesity related hyper filtration. ? RECOMMENDATION:? Will be to keep on a low-sodium diet.? Keep on Lasix.? Avoid NSAIDs.? Continue to avoid all other nephrotoxic agents.? Ongoing followup with the Urology regarding the obstruction.? At present, renal function is close to baseline and we will follow along with the team. TSH is very high ? Time Spent With Patient Time: Total time spent is greater than 50% in coordination of care (as documented) at patient's floor/unit and/or counseling patient: Progress Note: Quality Stroke Does the patient have a stroke diagnosis?: No
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
[2021-11-19] MEDS: Heparin Sodium,Porcine 5,000 UNIT/ML VIAL 5000 UNIT SUBCUT ×2 (14:06→20:38)
[2021-11-19] MEDS: Levothyroxine Sodium 50 MCG TABLET PO (14:06)
[2021-11-19 15:25] VITALS: BP 115/59; PULSE 71; RESP 18; TEMP 36.2; O2SAT 94
[2021-11-19 15:57] LABS: Glucose, Whole Blood 204 mg/dL (60-115)
[2021-11-19 19:36] LABS: Glucose, Whole Blood 188 mg/dL (60-115)
[2021-11-19 19:43] VITALS: BP 117/64; PULSE 72; RESP 18; TEMP 36.7; O2SAT 96
[2021-11-19] MEDS: Insulin Glargine,Hum.rec.anlog 100 UNIT/ML 10 ML VIAL 18 UNIT SUBCUT (20:38)
[2021-11-19] MEDS: Atorvastatin Calcium 80 MG TABLET PO (20:39)
[2021-11-19] MEDS: traZODone HCL 100 MG TABLET 200 MG PO (20:44)
[2021-11-20] VITALS (7 sets, daily range): BP systolic 119–151; BP diastolic 63–83; PULSE 68–81; RESP 17–20; TEMP 36.1–36.6; O2SAT 92–100
--- NOTE | 2021-11-20 | ECG_ITS ---
Test Reason : cp Blood Pressure : / mmHG Vent. Rate : 072 BPM Atrial Rate : 072 BPM P-R Int : 168 ms QRS Dur : 086 ms QT Int : 406 ms P-R-T Axes : 036 001 034 degrees QTc Int : 444 ms Normal sinus rhythm Cannot rule out Anterior infarct , age undetermined Abnormal ECG When compared with ECG of 08-NOV-2021 00:45, No significant change was found Referred By: Lexii Quesada Electronically Signed By:CHU DIXON MD
[2021-11-20] MEDS: Heparin Sodium,Porcine 5,000 UNIT/ML VIAL 5000 UNIT SUBCUT ×3 (05:19→21:03)
[2021-11-20] MEDS: Levothyroxine Sodium 125 MCG TABLET 250 MCG PO (05:19)
[2021-11-20] MEDS: Omeprazole 20 MG CAPSULE.DR PO ×2 (05:19→16:22)
[2021-11-20 07:56] LABS: Glucose, Whole Blood 186 mg/dL (60-115)
[2021-11-20] MEDS: 0.9 % Sodium Chloride Flush 3 ML SYRINGE IVFLUSH ×3 (08:04→21:13)
[2021-11-20] MEDS: Insulin Lispro 100 UNIT/ML 3 ML VIAL SUBCUT ×8 (08:04→21:04)
[2021-11-20] MEDS: Lidocaine 4 % Patch ADH..PATCH 1 PATCH TRANSDERMA ×2 (08:05→12:14)
[2021-11-20] MEDS: FLUoxetine HCl 20 MG CAPSULE 60 MG PO (08:05)
[2021-11-20] MEDS: Gabapentin 600 MG TABLET PO ×3 (08:05→21:05)
[2021-11-20] MEDS: Buprenorphine/Naloxone 8/2 mg FILM 1 FILM SUBLINGUAL ×3 (08:05→21:05)
[2021-11-20] MEDS: Furosemide 20 MG TABLET PO (08:05)
[2021-11-20] MEDS: Loratadine 10 MG TABLET PO (08:05)
[2021-11-20] MEDS: amLODIPine Besylate 5 MG TABLET PO (08:05)
[2021-11-20] MEDS: Aspirin Enteric Coated 81 MG TABLET.DR PO (08:05)
[2021-11-20 08:36] LABS: COVID-19 Test Negative (Negative); IDNOW Serial# 16C4AD1C
[2021-11-20 11:51] LABS: Glucose, Whole Blood 152 mg/dL (60-115)
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
[2021-11-20 14:48] LABS: Troponin-I High Sensitivity 3.9 ng/L (<3.5-17.0)
[2021-11-20] MEDS: Acetaminophen 325 MG TABLET 650 MG PO (15:23)
[2021-11-20] MEDS: clonazePAM 0.5 MG TABLET 0.25 MG PO (15:23)
[2021-11-20 16:11] LABS: Glucose, Whole Blood 154 mg/dL (60-115)
[2021-11-20 19:56] LABS: Glucose, Whole Blood 187 mg/dL (60-115)
[2021-11-20] MEDS: Insulin Glargine,Hum.rec.anlog 100 UNIT/ML 10 ML VIAL 18 UNIT SUBCUT (21:04)
[2021-11-20] MEDS: Atorvastatin Calcium 80 MG TABLET PO (21:05)
[2021-11-20] MEDS: traZODone HCL 100 MG TABLET 200 MG PO (21:13)
[2021-11-21 03:16] VITALS: BP 152/61; PULSE 75; RESP 18; TEMP 36.3; O2SAT 96
[2021-11-21] MEDS: Omeprazole 20 MG CAPSULE.DR PO ×2 (05:49→16:40)
[2021-11-21] MEDS: Heparin Sodium,Porcine 5,000 UNIT/ML VIAL 5000 UNIT SUBCUT ×3 (05:50→20:41)
[2021-11-21] MEDS: Levothyroxine Sodium 125 MCG TABLET 250 MCG PO (05:50)
[2021-11-21 07:48] LABS: Glucose, Whole Blood 160 mg/dL (60-115)
[2021-11-21 07:55] VITALS: BP 137/76; PULSE 80; RESP 19; TEMP 36.1; O2SAT 98
[2021-11-21] MEDS: Gabapentin 600 MG TABLET PO ×3 (08:19→20:42)
[2021-11-21] MEDS: amLODIPine Besylate 5 MG TABLET PO (08:19)
[2021-11-21] MEDS: Aspirin Enteric Coated 81 MG TABLET.DR PO (08:19)
[2021-11-21] MEDS: Loratadine 10 MG TABLET PO (08:19)
[2021-11-21] MEDS: Furosemide 20 MG TABLET PO (08:19)
[2021-11-21] MEDS: FLUoxetine HCl 20 MG CAPSULE 60 MG PO (08:20)
[2021-11-21] MEDS: Buprenorphine/Naloxone 8/2 mg FILM 1 FILM SUBLINGUAL ×3 (08:20→20:42)
[2021-11-21] MEDS: Lidocaine 4 % Patch ADH..PATCH 1 PATCH TRANSDERMA ×3 (08:20→14:47)
[2021-11-21] MEDS: Insulin Lispro 100 UNIT/ML 3 ML VIAL SUBCUT ×8 (08:22→20:42)
[2021-11-21] MEDS: Acetaminophen 325 MG TABLET 650 MG PO ×3 (08:38→20:53)
[2021-11-21 10:34] LABS: Anion Gap 12 (12-20); Blood Urea Nitrogen 38 mg/dL (9-16); Calcium 8.9 mg/dL (8.4-10.2); Carbon Dioxide 29 mmol/L (22-29); Chloride 100 mmol/L (96-108); Creatinine Clr Calc Pharmacy 102.8; Estimated Glomerular Filt Rate 43; Glucose Random 201 mg/dL (60-115); Potassium 4.7 mmol/L (3.3-5.1); Sodium 136 mmol/L (135-145)
[2021-11-21 10:46] LABS: B Type Natriuretic Peptide 61 pg/mL (<100)
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
[2021-11-21 11:33] LABS: Glucose, Whole Blood 175 mg/dL (60-115)
[2021-11-21] MEDS: Furosemide 20 MG/2 ML VIAL IVPUSH ×2 (11:56→17:55)
[2021-11-21 12:00] VITALS: BP 154/80; PULSE 79; RESP 18; TEMP 36.1; O2SAT 98
--- NOTE | 2021-11-21 12:14 | MHC.CM.PN ---
NO SNF OFFERS (INCLUDING [place] REFERRALS) PLAN IS HOME WEDNESDAY 11/22 WITH [facility]. PATIENT UPDATED WHITE BOARD UPDATED. [facility] UPDATED
--- NOTE | 2021-11-21 14:35 | MHC.CM.PN ---
THIS DIRECT SUPPORT SPECIALIST SPOKE WITH PATIENT AND BOYFRIEND (IN ROOM) WITH PERMISSION. PATIENT IS AWARE THAT SNF REFERRAL LIST HAS BEEN EXPANDED TO [place] AND THERE ARE NO OFFERS OF THIS NOTE. THEY ARE AWARE THAT [facility] IS OFFERING RN AND P.T. SKILLS. KAMILAHIENNabeel STATES THAT HE IS CONCERNED BECAUSE IT TOOK ALOT TO GET HER DOWN THE STAIRS IT WAS EXPLAINED THAT PATIENT NO LONGER MEETS ACUTE LEVEL OF CARE WHEN ASKED IF PATIENT OR BOYFRIEND/GRAVEL TRUCK DRIVER HAD ANY THOUGHTS ABOUT WHAT PATIENT WOULD NEED DURING HER STAY HERE TO HELP HER TO ACHIEVE [facility], THEY DENY ANY NEED THAT HAS NOT ALREADY BEEN ADDRESSED HERE. HOME O2 EVALUATION TO BE ORDERED. PATIENT WILL REQUIRE A BARIATRIC COMMODE RX. PROVIDER MADE AWARE. PATIENT WILL REQUIRE AMBULANCE SERVICE HOME
[2021-11-21] MEDS: clonazePAM 0.5 MG TABLET 0.25 MG PO (14:47)
[2021-11-21 15:14] VITALS: BP 153/82; PULSE 77; RESP 20; TEMP 36.4; O2SAT 97
[2021-11-21 15:24] LABS: Glucose, Whole Blood 194 mg/dL (60-115)
[2021-11-21] MEDS: 0.9 % Sodium Chloride Flush 3 ML SYRINGE IVFLUSH ×2 (16:41→20:42)
[2021-11-21 17:34] VITALS: PULSE 78; PULSE 80; PULSE 89; O2SAT 87; O2SAT 89; O2SAT 93
[2021-11-21 19:14] VITALS: BP 108/52; PULSE 70; RESP 20; TEMP 36.8; O2SAT 98
[2021-11-21 19:46] LABS: Glucose, Whole Blood 213 mg/dL (60-115)
[2021-11-21] MEDS: Insulin Glargine,Hum.rec.anlog 100 UNIT/ML 10 ML VIAL 18 UNIT SUBCUT (20:41)
[2021-11-21] MEDS: Atorvastatin Calcium 80 MG TABLET PO (20:42)
[2021-11-21] MEDS: traZODone HCL 100 MG TABLET 200 MG PO (20:48)
[2021-11-22] VITALS: BP 135/65; PULSE 71; RESP 18; TEMP 36.8; O2SAT 97
[2021-11-22 03:31] VITALS: BP 116/56; PULSE 85; RESP 16; TEMP 36.6; O2SAT 98
[2021-11-22] MEDS: Heparin Sodium,Porcine 5,000 UNIT/ML VIAL 5000 UNIT SUBCUT ×3 (06:10→21:34)
[2021-11-22] MEDS: Omeprazole 20 MG CAPSULE.DR PO ×2 (06:11→17:11)
[2021-11-22] MEDS: Levothyroxine Sodium 125 MCG TABLET 250 MCG PO (06:11)
[2021-11-22] MEDS: Acetaminophen 325 MG TABLET 650 MG PO ×2 (06:14→14:29)
[2021-11-22 06:17] LABS: Anion Gap 11 (12-20); Blood Urea Nitrogen 39 mg/dL (9-16); Carbon Dioxide 32 mmol/L (22-29); Chloride 100 mmol/L (96-108); Creatinine Clr Calc Pharmacy 104.3; Estimated Glomerular Filt Rate 43; Glucose Random 134 mg/dL (60-115); Potassium 4.8 mmol/L (3.3-5.1); Sodium 138 mmol/L (135-145)
[2021-11-22 06:24] LABS: B Type Natriuretic Peptide 55 pg/mL (<100)
[2021-11-22 07:35] LABS: Glucose, Whole Blood 117 mg/dL (60-115)
[2021-11-22] MEDS: Aspirin Enteric Coated 81 MG TABLET.DR PO (07:44)
[2021-11-22] MEDS: amLODIPine Besylate 5 MG TABLET PO (07:44)
[2021-11-22] MEDS: Loratadine 10 MG TABLET PO (07:44)
[2021-11-22] MEDS: FLUoxetine HCl 20 MG CAPSULE 60 MG PO (07:44)
[2021-11-22] MEDS: Furosemide 20 MG/2 ML VIAL IVPUSH (07:45)
[2021-11-22] MEDS: 0.9 % Sodium Chloride Flush 3 ML SYRINGE IVFLUSH ×2 (07:45→14:30)
[2021-11-22] MEDS: Gabapentin 600 MG TABLET PO ×3 (07:45→21:34)
[2021-11-22 07:46] VITALS: BP 145/76; PULSE 77; RESP 18; TEMP 36.2; O2SAT 98
[2021-11-22] MEDS: Insulin Lispro 100 UNIT/ML 3 ML VIAL SUBCUT ×6 (07:47→21:35)
[2021-11-22] MEDS: Lidocaine 4 % Patch ADH..PATCH 1 PATCH TRANSDERMA ×2 (07:49)
[2021-11-22] MEDS: Buprenorphine/Naloxone 8/2 mg FILM 1 FILM SUBLINGUAL ×3 (08:50→21:34)
[2021-11-22 11:26] LABS: Glucose, Whole Blood 147 mg/dL (60-115)
[2021-11-22 11:51] VITALS: BP 145/77; PULSE 72; RESP 19; TEMP 36.1; O2SAT 96
--- NOTE | 2021-11-22 12:04 | P.PNUR_ITS ---
Subjective Subjective Date of Service: 11/22/21 Interval history: Remains in hospital pending discharge Chronically high blood sugars Lasix renogram reviewed 80:20 split between left and right kidney Right kidney with pulling and collecting system likely due to chronic hydronephrosis Creatinine remains toward baseline Overall renal function is under strain due to chronic diabetes and medical renal disease No acute urologic issue Physical Exam Vital Signs: Vital Signs: Last Vital Signs Temp 96.9 F 11/22/21 11:51 Pulse 72 11/22/21 11:51 Resp 19 11/22/21 11:51 BP 145/77 H 11/22/21 11:51 Pulse Ox 96 11/22/21 11:51 O2 Del Method 11/22/21 11:51 O2 Flow Rate 2.0 11/22/21 11:51 BMI result Body Mass Index 78.2 Const: General: cooperative, healthy appearing, comfortable and no acute di stress Orientation/consciousness: patient oriented x3 HEENT: Face and sinus: Yes normal facial exam Mouth: moist mucous membranes Neck: Neck: Yes normal visual inspection, Yes full ROM and Yes trachea midline Chest: Chest palpation & inspection: normal inspection of the chest Resp: Effort & Inspection: normal respiratory effort, able to speak in complete sentences and no respiratory distress GI: Inspection: Yes normal to inspection Back/Spine/Pelvis: Cervical Spine: normal cervical lordosis Thoracic/Lumbar Spine: thoracic and lumbar spine normal to inspection Skin: General skin exam: no rashes or lesions noted Neuro: General: patient oriented x3, tone normal and moves all extremities Extrem: General: Yes normal to inspection and Yes capillary refill normal Urology Results Labs CBC & Chem 7: 11/15/21 06:10 11/22/21 05:36 Labs: Laboratory Results - last 24 hr 11/21/21 11/21/21 11/22/21 15:18 19:38 05:36 Sodium 138 Potassium 4.8 Chloride 100 Carbon Dioxide 32 H Anion Gap 11 L BUN 39 H Creatinine 1.30 Estim Creat Clear Calc 104.3 Estimated GFR 43 POC Glucose 194 H 213 H Random Glucose 134 H Calcium 9.0 B-Natriuretic Peptide 11/22/21 11/22/21 11/22/21 05:36 07:24 11:17 Sodium Potassium Chloride Carbon Dioxide Anion Gap BUN Creatinine Estim Creat Clear Calc Estimated GFR POC Glucose 117 H 147 H Random Glucose Calcium B-Natriuretic Peptide 55 Progress Note: A&P Assessment and plan (1) Hydronephrosis of right kidney: Status: Acute Plan May follow as outpatient Time Spent With Patient Time: Total time spent is greater than 50% in coordination of care (as documented) at patient's floor/unit and/or counseling patient: Progress Note: Quality Stroke Does the patient have a stroke diagnosis?: No
--- NOTE | 2021-11-22 12:06 | MHC.CM.PN ---
MED[facility]Y IN [place] DOES NOT HAVE A BEDSIDE COMMODE TO ACCOMMODATE PATIENT WEIGHT. [facility] DOES. INFORMATION RELAYED TO STAFF @ [phone]. CM AWAITING FAX FOR HOSPITALIST TO COMPLETE AND THEN FAX BACK. EXPECTED COMMODE DELIVERY Sunday11/23/21 PATIENT AWARE.
[2021-11-22] MEDS: clonazePAM 0.5 MG TABLET 0.25 MG PO (12:40)
--- NOTE | 2021-11-22 14:23 | P.F2F_ITS ---
Service Date Service Date: 11/22/21 Encounter Date of encounter: 11/22/21 Reasons for Services Signs and symptoms assessed: respiratory mobility Reason for residential: medication management, medication treatment and teach disease management Reason for physical therapy: home safety and mobility, therapeutic exercises, gait/transfer training, assess need for DME, ADL training and energy conservation MD Overseeing Care: Ray Cox Homebound: Leaving the home is medically contraindicated at this time without the asist of a device and/or another person due th the listed conditions above and below. Reason homebound: unsteady gait / fall risk, shortness of breath with minimal effort and weakness related to hospital stay Certification: Based on the above findings, I certify that this patient is confined to the home and needs intermittent residential care, physical therapy and/or speech therapy, or continues to need occupational therapy. The patient is under my care, and I have initiated the establishment of the plan of care. The patient will be followed by a physician who will periodically review the plan of care.
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
--- NOTE | 2021-11-22 15:46 | MHC.CM.PN ---
Pt will be d/c'd to home with [place] [facility] and home O2. Pt has a script for a bariatric commode which will not be delivered until 11/23 - pt aware. Respiratory has arranged for O2 at home - message left to confirm vendor. Awaiting response. Bariatric BLS transport arranged w/[facility] who will arrive close to 5pm to transport pt to home. Pt and RN aware and in agreement of plan.
[2021-11-22 16:37] LABS: Glucose, Whole Blood 164 mg/dL (60-115)
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
[2021-11-22 19:43] VITALS: BP 134/66; PULSE 71; RESP 18; TEMP 36.6; O2SAT 93
[2021-11-22 20:45] LABS: Glucose, Whole Blood 192 mg/dL (60-115)
[2021-11-22] MEDS: traZODone HCL 100 MG TABLET 200 MG PO (21:34)
[2021-11-22] MEDS: Insulin Glargine,Hum.rec.anlog 100 UNIT/ML 10 ML VIAL 18 UNIT SUBCUT (21:35)
[2021-11-22] MEDS: Atorvastatin Calcium 80 MG TABLET PO (21:36)
[2021-11-22 23:50] VITALS: BP 121/62; PULSE 71; RESP 18; TEMP 36.3; O2SAT 92
[2021-11-23 03:40] VITALS: BP 139/69; PULSE 70; RESP 18; TEMP 36.4; O2SAT 95
[2021-11-23] MEDS: Omeprazole 20 MG CAPSULE.DR PO ×2 (05:41→16:38)
[2021-11-23] MEDS: Levothyroxine Sodium 125 MCG TABLET 250 MCG PO (05:41)
[2021-11-23] MEDS: Heparin Sodium,Porcine 5,000 UNIT/ML VIAL 5000 UNIT SUBCUT ×3 (05:41→22:11)
[2021-11-23 07:29] LABS: Glucose, Whole Blood 165 mg/dL (60-115)
[2021-11-23 07:48] VITALS: BP 147/72; PULSE 78; RESP 17; TEMP 36.4; O2SAT 98
[2021-11-23] MEDS: Lidocaine 4 % Patch ADH..PATCH 1 PATCH TRANSDERMA ×2 (07:57→07:58)
[2021-11-23] MEDS: FLUoxetine HCl 20 MG CAPSULE 60 MG PO (07:58)
[2021-11-23] MEDS: Insulin Lispro 100 UNIT/ML 3 ML VIAL SUBCUT ×7 (07:58→22:12)
[2021-11-23] MEDS: Acetaminophen 325 MG TABLET 650 MG PO ×3 (07:59→22:20)
[2021-11-23] MEDS: Loratadine 10 MG TABLET PO (07:59)
[2021-11-23] MEDS: Furosemide 20 MG TABLET PO (07:59)
[2021-11-23] MEDS: Buprenorphine/Naloxone 8/2 mg FILM 1 FILM SUBLINGUAL ×3 (08:00→22:13)
[2021-11-23] MEDS: amLODIPine Besylate 5 MG TABLET PO (08:00)
[2021-11-23] MEDS: Gabapentin 600 MG TABLET PO ×3 (08:00→22:13)
[2021-11-23] MEDS: Aspirin Enteric Coated 81 MG TABLET.DR PO (08:00)
[2021-11-23 11:23] LABS: Glucose, Whole Blood 167 mg/dL (60-115)
[2021-11-23 11:34] VITALS: BP 142/76; PULSE 78; RESP 19; TEMP 36.1; O2SAT 98
--- NOTE | 2021-11-23 14:04 | MHC.CM.PN ---
Addendum entered by Emma Garcia 11/23/21 14:45: [facility] ([phone]) UNABLE TO PROVIDE TRANSPORT BASED ON AMOUNT OF STAIRS TO ENTER APARTMENT Original Note: [facility] ([phone]) UNABLE TO PROVIDE TRANSPORT (REFUSED DUE TO INSURANCE) THIS ROUGHER OPERATOR HAD NOT YET EXPLAINED PATIENT STATUS.
[2021-11-23] MEDS: clonazePAM 0.5 MG TABLET 0.25 MG PO (14:15)
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
[2021-11-23 16:00] VITALS: BP 135/73; PULSE 72; RESP 20; TEMP 36.7; O2SAT 96
[2021-11-23 16:12] LABS: Glucose, Whole Blood 152 mg/dL (60-115)
[2021-11-23 19:31] VITALS: BP 128/69; PULSE 69; RESP 18; TEMP 36.6; O2SAT 95
[2021-11-23 20:03] LABS: Glucose, Whole Blood 140 mg/dL (60-115)
[2021-11-23] MEDS: Insulin Glargine,Hum.rec.anlog 100 UNIT/ML 10 ML VIAL 18 UNIT SUBCUT (22:12)
[2021-11-23] MEDS: traZODone HCL 100 MG TABLET 200 MG PO (22:13)
[2021-11-23] MEDS: Atorvastatin Calcium 80 MG TABLET PO (22:13)
[2021-11-24] VITALS (7 sets, daily range): BP systolic 124–151; BP diastolic 65–75; PULSE 67–76; RESP 17–20; TEMP 36.2–36.9; O2SAT 91–98
[2021-11-24] MEDS: Levothyroxine Sodium 125 MCG TABLET 250 MCG PO (06:12)
[2021-11-24] MEDS: Omeprazole 20 MG CAPSULE.DR PO ×2 (06:12→16:43)
[2021-11-24] MEDS: Heparin Sodium,Porcine 5,000 UNIT/ML VIAL 5000 UNIT SUBCUT ×3 (06:12→21:46)
[2021-11-24] MEDS: Insulin Lispro 100 UNIT/ML 3 ML VIAL SUBCUT ×8 (08:10→21:46)
[2021-11-24] MEDS: Gabapentin 600 MG TABLET PO ×3 (08:12→21:42)
[2021-11-24] MEDS: Loratadine 10 MG TABLET PO (08:12)
[2021-11-24] MEDS: Furosemide 20 MG TABLET PO (08:12)
[2021-11-24] MEDS: FLUoxetine HCl 20 MG CAPSULE 60 MG PO (08:12)
[2021-11-24] MEDS: Buprenorphine/Naloxone 8/2 mg FILM 1 FILM SUBLINGUAL ×3 (08:12→21:43)
[2021-11-24] MEDS: amLODIPine Besylate 5 MG TABLET PO (08:12)
[2021-11-24] MEDS: Aspirin Enteric Coated 81 MG TABLET.DR PO (08:13)
[2021-11-24] MEDS: Lidocaine 4 % Patch ADH..PATCH 1 PATCH TRANSDERMA ×2 (08:18)
[2021-11-24 08:43] LABS: Glucose, Whole Blood 154 mg/dL (60-115)
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
[2021-11-24] MEDS: Acetaminophen 325 MG TABLET 650 MG PO (11:58)
[2021-11-24 15:39] LABS: Glucose, Whole Blood 161 mg/dL (60-115)
[2021-11-24 16:07] LABS: Glucose, Whole Blood 166 mg/dL (60-115)
[2021-11-24] MEDS: Nystatin Powder 15 GM BOTTLE 1 APPL TOPICAL ×2 (16:49→21:46)
[2021-11-24 20:07] LABS: Glucose, Whole Blood 154 mg/dL (60-115)
[2021-11-24] MEDS: Atorvastatin Calcium 80 MG TABLET PO (21:42)
[2021-11-24] MEDS: Insulin Glargine,Hum.rec.anlog 100 UNIT/ML 10 ML VIAL 18 UNIT SUBCUT (21:43)
[2021-11-24] MEDS: traZODone HCL 100 MG TABLET 200 MG PO (21:51)
[2021-11-25 03:33] VITALS: BP 148/77; PULSE 71; RESP 18; TEMP 36.3; O2SAT 98
[2021-11-25] MEDS: Heparin Sodium,Porcine 5,000 UNIT/ML VIAL 5000 UNIT SUBCUT ×3 (05:42→21:06)
[2021-11-25] MEDS: Omeprazole 20 MG CAPSULE.DR PO ×2 (05:42→17:05)
[2021-11-25] MEDS: Levothyroxine Sodium 125 MCG TABLET 250 MCG PO (05:42)
[2021-11-25 07:42] LABS: Glucose, Whole Blood 148 mg/dL (60-115)
[2021-11-25 08:00] VITALS: BP 150/73; PULSE 82; RESP 18; TEMP 36.1; O2SAT 93
[2021-11-25] MEDS: Aspirin Enteric Coated 81 MG TABLET.DR PO (08:19)
[2021-11-25] MEDS: Gabapentin 600 MG TABLET PO ×3 (08:19→21:05)
[2021-11-25] MEDS: FLUoxetine HCl 20 MG CAPSULE 60 MG PO (08:19)
[2021-11-25] MEDS: Insulin Lispro 100 UNIT/ML 3 ML VIAL SUBCUT ×6 (08:20→21:08)
[2021-11-25] MEDS: amLODIPine Besylate 5 MG TABLET PO (08:20)
[2021-11-25] MEDS: Lidocaine 4 % Patch ADH..PATCH 1 PATCH TRANSDERMA ×2 (08:21→08:32)
[2021-11-25] MEDS: Buprenorphine/Naloxone 8/2 mg FILM 1 FILM SUBLINGUAL ×3 (08:22→21:05)
[2021-11-25] MEDS: Loratadine 10 MG TABLET PO (08:22)
[2021-11-25] MEDS: Furosemide 20 MG TABLET PO (08:22)
[2021-11-25] MEDS: Nystatin Powder 15 GM BOTTLE 1 APPL TOPICAL ×3 (08:37→21:08)
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
[2021-11-25 10:44] VITALS: BP 150/73; PULSE 82; O2SAT 93
[2021-11-25] MEDS: Acetaminophen 325 MG TABLET 650 MG PO (11:23)
[2021-11-25 11:29] LABS: Glucose, Whole Blood 165 mg/dL (60-115)
[2021-11-25 11:44] VITALS: BP 144/76; PULSE 79; RESP 20; TEMP 36.2; O2SAT 95
[2021-11-25 16:00] VITALS: BP 129/67; PULSE 67; RESP 17; TEMP 36.1; O2SAT 92
[2021-11-25 16:09] LABS: Glucose, Whole Blood 163 mg/dL (60-115)
[2021-11-25] MEDS: Furosemide 40 MG TABLET PO (17:06)
[2021-11-25 20:24] VITALS: BP 136/68; PULSE 71; RESP 16; TEMP 36.2; O2SAT 92
[2021-11-25 20:31] LABS: Glucose, Whole Blood 154 mg/dL (60-115)
[2021-11-25] MEDS: Insulin Glargine,Hum.rec.anlog 100 UNIT/ML 10 ML VIAL 18 UNIT SUBCUT (21:05)
[2021-11-25] MEDS: Atorvastatin Calcium 80 MG TABLET PO (21:05)
[2021-11-25] MEDS: traZODone HCL 100 MG TABLET 200 MG PO (21:12)
[2021-11-26] VITALS (7 sets, daily range): BP systolic 120–149; BP diastolic 61–77; PULSE 74–79; RESP 16–20; TEMP 36.1–36.5; O2SAT 93–97
[2021-11-26] MEDS: Omeprazole 20 MG CAPSULE.DR PO ×2 (05:26→16:13)
[2021-11-26] MEDS: Levothyroxine Sodium 125 MCG TABLET 250 MCG PO (05:27)
[2021-11-26] MEDS: Heparin Sodium,Porcine 5,000 UNIT/ML VIAL 5000 UNIT SUBCUT ×3 (05:27→21:26)
[2021-11-26 06:30] LABS: Anion Gap 15 (12-20); Blood Urea Nitrogen 43 mg/dL (9-16); Carbon Dioxide 27 mmol/L (22-29); Chloride 101 mmol/L (96-108); Creatinine Clr Calc Pharmacy 101.2; Estimated Glomerular Filt Rate 42; Glucose Random 187 mg/dL (60-115); Potassium 5.6 mmol/L (3.3-5.1); Sodium 137 mmol/L (135-145)
[2021-11-26 08:01] LABS: Glucose, Whole Blood 164 mg/dL (60-115)
[2021-11-26] MEDS: Gabapentin 600 MG TABLET PO ×3 (08:44→21:26)
[2021-11-26] MEDS: Insulin Lispro 100 UNIT/ML 3 ML VIAL SUBCUT ×7 (08:44→21:29)
[2021-11-26] MEDS: FLUoxetine HCl 20 MG CAPSULE 60 MG PO (08:44)
[2021-11-26] MEDS: Loratadine 10 MG TABLET PO (08:45)
[2021-11-26] MEDS: Buprenorphine/Naloxone 8/2 mg FILM 1 FILM SUBLINGUAL ×3 (08:45→21:27)
[2021-11-26] MEDS: Aspirin Enteric Coated 81 MG TABLET.DR PO (08:45)
[2021-11-26] MEDS: Furosemide 40 MG TABLET PO ×2 (08:45→16:12)
[2021-11-26] MEDS: amLODIPine Besylate 5 MG TABLET PO (08:45)
[2021-11-26] MEDS: Lidocaine 4 % Patch ADH..PATCH 1 PATCH TRANSDERMA ×2 (08:47)
[2021-11-26] MEDS: Nystatin Powder 15 GM BOTTLE 1 APPL TOPICAL ×3 (08:49→21:36)
[2021-11-26 12:17] LABS: Glucose, Whole Blood 151 mg/dL (60-115)
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
[2021-11-26] MEDS: Acetaminophen 325 MG TABLET 650 MG PO (12:42)
[2021-11-26] MEDS: clonazePAM 0.5 MG TABLET 0.25 MG PO (12:42)
[2021-11-26 16:03] LABS: Glucose, Whole Blood 157 mg/dL (60-115)
[2021-11-26 20:38] LABS: Glucose, Whole Blood 169 mg/dL (60-115)
[2021-11-26] MEDS: Atorvastatin Calcium 80 MG TABLET PO (21:27)
[2021-11-26] MEDS: Insulin Glargine,Hum.rec.anlog 100 UNIT/ML 10 ML VIAL 18 UNIT SUBCUT (21:28)
[2021-11-26] MEDS: traZODone HCL 100 MG TABLET 200 MG PO (21:38)
--- NOTE | 2021-11-26 21:54 | PC.NURSE ---
PT requesting purwick on while sleeping, barrier cream applied then purwick.
[2021-11-27] MEDS: Insulin Lispro 100 UNIT/ML 3 ML VIAL SUBCUT ×7 (01:04→17:15)
[2021-11-27 03:48] VITALS: BP 140/71; PULSE 76; RESP 18; TEMP 36.5; O2SAT 95
[2021-11-27] MEDS: Levothyroxine Sodium 125 MCG TABLET 250 MCG PO (05:11)
[2021-11-27] MEDS: Omeprazole 20 MG CAPSULE.DR PO ×2 (05:11→16:22)
--- NOTE | 2021-11-27 05:30 | PM.EVENT ---
Event Note Date of Service: 11/27/21 Event Note: pt had bleeding at site of heparin injection will order SCDs
[2021-11-27 07:36] VITALS: BP 133/69; PULSE 77; RESP 12; TEMP 36.3; O2SAT 95
[2021-11-27 07:49] LABS: Glucose, Whole Blood 167 mg/dL (60-115)
[2021-11-27] MEDS: Lidocaine 4 % Patch ADH..PATCH 1 PATCH TRANSDERMA ×2 (07:58→11:02)
[2021-11-27] MEDS: Furosemide 40 MG TABLET PO ×2 (07:59→16:22)
[2021-11-27] MEDS: amLODIPine Besylate 5 MG TABLET PO (07:59)
[2021-11-27] MEDS: FLUoxetine HCl 20 MG CAPSULE 60 MG PO (07:59)
[2021-11-27] MEDS: Buprenorphine/Naloxone 8/2 mg FILM 1 FILM SUBLINGUAL ×3 (07:59→21:57)
[2021-11-27] MEDS: Gabapentin 600 MG TABLET PO ×3 (07:59→21:57)
[2021-11-27] MEDS: Aspirin Enteric Coated 81 MG TABLET.DR PO (07:59)
[2021-11-27] MEDS: Loratadine 10 MG TABLET PO (07:59)
[2021-11-27] MEDS: Nystatin Powder 15 GM BOTTLE 1 APPL TOPICAL ×3 (08:01→22:05)
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
[2021-11-27 12:00] VITALS: BP 153/72; PULSE 79; RESP 16; TEMP 36.3; O2SAT 96
[2021-11-27 12:00] LABS: Glucose, Whole Blood 204 mg/dL (60-115)
[2021-11-27] MEDS: clonazePAM 0.5 MG TABLET 0.25 MG PO (13:27)
[2021-11-27 16:00] VITALS: BP 138/76; PULSE 77; RESP 16; TEMP 36.1; O2SAT 95
[2021-11-27 16:57] LABS: Glucose, Whole Blood 157 mg/dL (60-115)
[2021-11-27 19:46] VITALS: BP 143/71; PULSE 76; RESP 16; TEMP 36.1; O2SAT 94
[2021-11-27 20:44] LABS: Glucose, Whole Blood 132 mg/dL (60-115)
[2021-11-27] MEDS: Atorvastatin Calcium 80 MG TABLET PO (21:57)
[2021-11-27] MEDS: Heparin Sodium,Porcine 5,000 UNIT/ML VIAL 5000 UNIT SUBCUT (21:59)
[2021-11-27] MEDS: Insulin Glargine,Hum.rec.anlog 100 UNIT/ML 10 ML VIAL 18 UNIT SUBCUT (22:01)
[2021-11-27] MEDS: traZODone HCL 100 MG TABLET 200 MG PO (22:05)
[2021-11-28] VITALS: BP 140/69; PULSE 76; RESP 16; TEMP 36.3; O2SAT 93
[2021-11-28 03:23] VITALS: BP 136/76; PULSE 82; RESP 18; TEMP 36.2; O2SAT 93
[2021-11-28] MEDS: Heparin Sodium,Porcine 5,000 UNIT/ML VIAL 5000 UNIT SUBCUT ×3 (05:51→20:17)
[2021-11-28] MEDS: Levothyroxine Sodium 125 MCG TABLET 250 MCG PO (05:51)
[2021-11-28] MEDS: Omeprazole 20 MG CAPSULE.DR PO ×2 (05:51→15:40)
[2021-11-28 07:37] LABS: Glucose, Whole Blood 185 mg/dL (60-115)
[2021-11-28 07:50] VITALS: BP 150/79; PULSE 76; RESP 18; TEMP 36.6; O2SAT 95
[2021-11-28] MEDS: FLUoxetine HCl 20 MG CAPSULE 60 MG PO (08:16)
[2021-11-28] MEDS: amLODIPine Besylate 5 MG TABLET PO (08:16)
[2021-11-28] MEDS: Furosemide 40 MG TABLET PO ×2 (08:16→17:03)
[2021-11-28] MEDS: Gabapentin 600 MG TABLET PO ×3 (08:16→20:14)
[2021-11-28] MEDS: Buprenorphine/Naloxone 8/2 mg FILM 1 FILM SUBLINGUAL ×3 (08:16→20:16)
[2021-11-28] MEDS: Loratadine 10 MG TABLET PO (08:16)
[2021-11-28] MEDS: Aspirin Enteric Coated 81 MG TABLET.DR PO (08:16)
[2021-11-28] MEDS: Insulin Lispro 100 UNIT/ML 3 ML VIAL SUBCUT ×8 (08:17→20:15)
[2021-11-28] MEDS: Lidocaine 4 % Patch ADH..PATCH 1 PATCH TRANSDERMA ×2 (08:24→08:29)
[2021-11-28] MEDS: Nystatin Powder 15 GM BOTTLE 1 APPL TOPICAL ×2 (08:27→15:42)
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
[2021-11-28 11:39] LABS: Glucose, Whole Blood 156 mg/dL (60-115)
[2021-11-28 12:00] VITALS: BP 117/66; PULSE 76; RESP 18; TEMP 37; O2SAT 94
[2021-11-28] MEDS: clonazePAM 0.5 MG TABLET 0.25 MG PO (13:49)
[2021-11-28 15:14] VITALS: BP 133/75; PULSE 78; RESP 20; TEMP 36.2; O2SAT 95
[2021-11-28 16:36] LABS: Glucose, Whole Blood 153 mg/dL (60-115)
[2021-11-28 19:42] VITALS: BP 138/66; PULSE 77; RESP 20; TEMP 36.4; O2SAT 95
[2021-11-28 20:08] LABS: Glucose, Whole Blood 165 mg/dL (60-115)
[2021-11-28] MEDS: traZODone HCL 100 MG TABLET 200 MG PO (20:14)
[2021-11-28] MEDS: Atorvastatin Calcium 80 MG TABLET PO (20:14)
[2021-11-28] MEDS: Insulin Glargine,Hum.rec.anlog 100 UNIT/ML 10 ML VIAL 18 UNIT SUBCUT (20:15)
[2021-11-28] MEDS: 0.9 % Sodium Chloride Flush 3 ML SYRINGE IVFLUSH (20:17)
[2021-11-29] VITALS: BP 140/77; PULSE 76; RESP 14; TEMP 36.6; O2SAT 95
[2021-11-29 04:00] VITALS: RESP 16
[2021-11-29] MEDS: Heparin Sodium,Porcine 5,000 UNIT/ML VIAL 5000 UNIT SUBCUT ×3 (06:06→20:18)
[2021-11-29] MEDS: Levothyroxine Sodium 125 MCG TABLET 250 MCG PO (06:06)
[2021-11-29] MEDS: Omeprazole 20 MG CAPSULE.DR PO ×2 (06:06→17:03)
[2021-11-29 07:38] LABS: Glucose, Whole Blood 150 mg/dL (60-115)
[2021-11-29 07:50] VITALS: BP 144/90; PULSE 80; RESP 18; TEMP 36.6; O2SAT 95
[2021-11-29] MEDS: Insulin Lispro 100 UNIT/ML 3 ML VIAL SUBCUT ×7 (08:40→20:18)
[2021-11-29] MEDS: Furosemide 40 MG TABLET PO ×2 (08:44→17:03)
[2021-11-29] MEDS: FLUoxetine HCl 20 MG CAPSULE 60 MG PO (08:45)
[2021-11-29] MEDS: Aspirin Enteric Coated 81 MG TABLET.DR PO (08:45)
[2021-11-29] MEDS: amLODIPine Besylate 5 MG TABLET PO (08:45)
[2021-11-29] MEDS: Lidocaine 4 % Patch ADH..PATCH 1 PATCH TRANSDERMA ×2 (08:47)
[2021-11-29] MEDS: Buprenorphine/Naloxone 8/2 mg FILM 1 FILM SUBLINGUAL ×3 (08:47→20:17)
[2021-11-29] MEDS: Gabapentin 600 MG TABLET PO ×3 (08:48→20:17)
[2021-11-29] MEDS: Loratadine 10 MG TABLET PO (08:48)
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
[2021-11-29 11:26] LABS: Glucose, Whole Blood 182 mg/dL (60-115)
--- NOTE | 2021-11-29 11:37 | MHC.CM.PN ---
CM MET W/PT, PT PROVIDED PHONE NUMBERS FOR [facility], PT GIVEN DIRECTIONS ON HOW TO CONTACT AND WHAT SHE WILL NEED TO ASK THEM/DO TO REQUEST HELP W/FINDING A FIRST FLOOR APT, PT REPORTS BF WILL ASSIST HER. REFERRALS UPDATED AND PT HAS NOT RECEIVED ANY BED OFFERS AT TIME OF THIS NOTE. CM WILL CONT TO FOLLOW D/C NEEDS.
[2021-11-29] MEDS: Nystatin Powder 15 GM BOTTLE 1 APPL TOPICAL ×3 (11:43→20:18)
[2021-11-29 12:00] VITALS: BP 150/82; PULSE 83; RESP 20; TEMP 36.6; O2SAT 93
[2021-11-29 15:40] VITALS: BP 155/84; PULSE 82; RESP 20; TEMP 36.5; O2SAT 97
[2021-11-29 15:53] LABS: Glucose, Whole Blood 191 mg/dL (60-115)
[2021-11-29 19:12] VITALS: BP 125/82; PULSE 81; RESP 18; TEMP 36.4; O2SAT 96
[2021-11-29 19:21] LABS: Glucose, Whole Blood 177 mg/dL (60-115)
[2021-11-29] MEDS: Atorvastatin Calcium 80 MG TABLET PO (20:17)
[2021-11-29] MEDS: Insulin Glargine,Hum.rec.anlog 100 UNIT/ML 10 ML VIAL 18 UNIT SUBCUT (20:19)
[2021-11-29] MEDS: traZODone HCL 100 MG TABLET 200 MG PO (20:21)
[2021-11-29] MEDS: 0.9 % Sodium Chloride Flush 3 ML SYRINGE IVFLUSH (23:53)
[2021-11-30] VITALS (7 sets, daily range): BP systolic 116–140; BP diastolic 61–77; PULSE 68–83; RESP 14–19; TEMP 36–37.2; O2SAT 91–100
[2021-11-30] MEDS: Heparin Sodium,Porcine 5,000 UNIT/ML VIAL 5000 UNIT SUBCUT ×3 (06:01→20:15)
[2021-11-30] MEDS: Omeprazole 20 MG CAPSULE.DR PO ×2 (06:02→17:25)
[2021-11-30] MEDS: Levothyroxine Sodium 125 MCG TABLET 250 MCG PO (06:02)
[2021-11-30 07:41] LABS: Glucose, Whole Blood 161 mg/dL (60-115)
[2021-11-30] MEDS: amLODIPine Besylate 5 MG TABLET PO (09:13)
[2021-11-30] MEDS: Gabapentin 600 MG TABLET PO ×3 (09:13→20:15)
[2021-11-30] MEDS: Furosemide 40 MG TABLET PO ×2 (09:13→17:25)
[2021-11-30] MEDS: Loratadine 10 MG TABLET PO (09:13)
[2021-11-30] MEDS: FLUoxetine HCl 20 MG CAPSULE 60 MG PO (09:13)
[2021-11-30] MEDS: Aspirin Enteric Coated 81 MG TABLET.DR PO (09:13)
[2021-11-30] MEDS: Acetaminophen 325 MG TABLET 650 MG PO (09:13)
[2021-11-30] MEDS: Buprenorphine/Naloxone 8/2 mg FILM 1 FILM SUBLINGUAL ×3 (09:14→20:15)
[2021-11-30] MEDS: Insulin Lispro 100 UNIT/ML 3 ML VIAL SUBCUT ×8 (09:14→20:21)
[2021-11-30] MEDS: Lidocaine 4 % Patch ADH..PATCH 1 PATCH TRANSDERMA ×2 (09:15)
[2021-11-30] MEDS: Nystatin Powder 15 GM BOTTLE 1 APPL TOPICAL ×3 (09:22→22:12)
[2021-11-30 11:18] LABS: Glucose, Whole Blood 169 mg/dL (60-115)
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
--- NOTE | 2021-11-30 14:26 | MHC.CM.PN ---
[id number] DOES NOT HAVE A SERA LIFT TO ACCOMMODATE PATIENT WEIGHT CALL TO [facility] @ [phone], AND AGENCY DOES NOT HAVE THIS EQUIPMENT IN ANY OF THERE LOCATIONS MARISSA MILLER SUGGESTS CALLING [employer] @ [phone]. [facility] DOES NOT HAVE THIS ITEM AND STATES THAT IT IS AN ITEM THAT NEEDS TO BE PURCHASED IF NEEDED.
[2021-11-30 16:51] LABS: Glucose, Whole Blood 162 mg/dL (60-115)
[2021-11-30 19:07] LABS: Fentanyl, urine POSITIVE (Not Detect)
[2021-11-30 19:15] LABS: Amphetamine Screen Urine Not Detected (Not Detect); Barbiturates, Urine Not Detected (Not Detect); Cannabinoid Screen Urine Not Detected (Not Detect); Cocaine Screen Urine Not Detected (Not Detect); Opiate Screen Urine Not Detected (Not Detect); Phencyclidine Screen Urine Not Detected (Not Detect)
[2021-11-30] MEDS: Milk of Magnesia 30 ML ORAL.SUSP 15 ML PO (19:34)
[2021-11-30] MEDS: Atorvastatin Calcium 80 MG TABLET PO (20:15)
[2021-11-30] MEDS: Insulin Glargine,Hum.rec.anlog 100 UNIT/ML 10 ML VIAL 18 UNIT SUBCUT (20:15)
[2021-11-30] MEDS: Docusate Sodium 100 MG CAPSULE PO (20:15)
[2021-11-30] MEDS: traZODone HCL 100 MG TABLET 200 MG PO (20:29)
[2021-11-30 20:37] LABS: Glucose, Whole Blood 166 mg/dL (60-115)
[2021-12-01 03:47] VITALS: BP 125/69; PULSE 79; RESP 19; TEMP 36.2; O2SAT 95
[2021-12-01] MEDS: Heparin Sodium,Porcine 5,000 UNIT/ML VIAL 5000 UNIT SUBCUT ×3 (05:44→20:21)
[2021-12-01] MEDS: Levothyroxine Sodium 125 MCG TABLET 250 MCG PO (05:45)
[2021-12-01] MEDS: Omeprazole 20 MG CAPSULE.DR PO ×2 (05:45→16:51)
[2021-12-01 07:22] VITALS: BP 151/80; PULSE 77; RESP 17; TEMP 36.1; O2SAT 96
[2021-12-01 07:45] LABS: Glucose, Whole Blood 162 mg/dL (60-115)
[2021-12-01] MEDS: Loratadine 10 MG TABLET PO (08:04)
[2021-12-01] MEDS: Gabapentin 600 MG TABLET PO ×3 (08:04→20:22)
[2021-12-01] MEDS: Furosemide 40 MG TABLET PO ×2 (08:04→16:51)
[2021-12-01] MEDS: amLODIPine Besylate 5 MG TABLET PO (08:04)
[2021-12-01] MEDS: Aspirin Enteric Coated 81 MG TABLET.DR PO (08:04)
[2021-12-01] MEDS: Insulin Lispro 100 UNIT/ML 3 ML VIAL SUBCUT ×8 (08:04→20:20)
[2021-12-01] MEDS: Lidocaine 4 % Patch ADH..PATCH 1 PATCH TRANSDERMA ×2 (08:05→08:06)
[2021-12-01] MEDS: FLUoxetine HCl 20 MG CAPSULE 60 MG PO (08:07)
[2021-12-01] MEDS: Nystatin Powder 15 GM BOTTLE 1 APPL TOPICAL ×3 (08:08→20:27)
[2021-12-01 08:53] LABS: Benzodiazepines Screen Urine NOT DETECTED (Not Detect)
[2021-12-01] MEDS: polyethylene glycoL 3350 17 GM POWD.PACK PO (10:30)
[2021-12-01] MEDS: Buprenorphine/Naloxone 8/2 mg FILM 1 FILM SUBLINGUAL ×3 (10:30→20:22)
[2021-12-01 11:11] VITALS: BP 133/77; PULSE 82; RESP 16; TEMP 36.2; O2SAT 95
[2021-12-01 11:42] LABS: Glucose, Whole Blood 172 mg/dL (60-115)
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
[2021-12-01 15:53] VITALS: BP 146/78; PULSE 79; RESP 18; TEMP 36.2; O2SAT 100
[2021-12-01 16:17] LABS: Glucose, Whole Blood 191 mg/dL (60-115)
[2021-12-01 19:04] VITALS: BP 117/65; PULSE 76; RESP 18; TEMP 36.4; O2SAT 99
[2021-12-01 20:13] LABS: Glucose, Whole Blood 181 mg/dL (60-115)
[2021-12-01] MEDS: Insulin Glargine,Hum.rec.anlog 100 UNIT/ML 10 ML VIAL 18 UNIT SUBCUT (20:20)
[2021-12-01] MEDS: Docusate Sodium 100 MG CAPSULE PO (20:22)
[2021-12-01] MEDS: Atorvastatin Calcium 80 MG TABLET PO (20:22)
[2021-12-01] MEDS: traZODone HCL 100 MG TABLET 200 MG PO (20:25)
[2021-12-01 23:58] VITALS: BP 119/78; PULSE 78; RESP 18; TEMP 36.1; O2SAT 98
[2021-12-02] VITALS (7 sets, daily range): BP systolic 126–163; BP diastolic 65–86; PULSE 77–94; RESP 16–18; TEMP 36.1–36.6; O2SAT 93–100
[2021-12-02] MEDS: Acetaminophen 325 MG TABLET 650 MG PO (03:35)
[2021-12-02] MEDS: Heparin Sodium,Porcine 5,000 UNIT/ML VIAL 5000 UNIT SUBCUT ×3 (05:55→21:13)
[2021-12-02] MEDS: Omeprazole 20 MG CAPSULE.DR PO ×2 (05:55→16:32)
[2021-12-02] MEDS: Levothyroxine Sodium 125 MCG TABLET 250 MCG PO (05:55)
[2021-12-02 07:45] LABS: Glucose, Whole Blood 154 mg/dL (60-115)
[2021-12-02 08:54] LABS: Hematocrit 29.7 % (37.0-47.0); Hemoglobin 8.7 g/dl (12.0-16.0); Mean Corpuscular HGB Conc 29.3 g/dl (31.0-35.0); Mean Corpuscular Hemoglobin 25.1 pg (27.0-33.0); Mean Corpuscular Volume 85.6 fL (80.0-98.0); Mean Platelet Volume 9.5 fL (9.4-12.3); Platelet Count 283 X10*3/uL (160-400); Red Blood Count 3.47 X10*6/uL (4.20-5.50); White Blood Count 7.3 X10*3/uL (4.8-10.8)
[2021-12-02] MEDS: Insulin Lispro 100 UNIT/ML 3 ML VIAL SUBCUT ×8 (09:06→21:12)
[2021-12-02 09:08] LABS: Anion Gap 11 (12-20); Blood Urea Nitrogen 40 mg/dL (9-16); Calcium 8.9 mg/dL (8.4-10.2); Carbon Dioxide 35 mmol/L (22-29); Chloride 98 mmol/L (96-108); Creatinine Clr Calc Pharmacy 100.5; Estimated Glomerular Filt Rate 42; Glucose Random 153 mg/dL (60-115); Potassium 4.8 mmol/L (3.3-5.1); Sodium 139 mmol/L (135-145)
[2021-12-02] MEDS: Furosemide 40 MG TABLET PO ×2 (09:08→16:32)
[2021-12-02] MEDS: amLODIPine Besylate 5 MG TABLET PO (09:08)
[2021-12-02] MEDS: Aspirin Enteric Coated 81 MG TABLET.DR PO (09:08)
[2021-12-02] MEDS: Buprenorphine/Naloxone 8/2 mg FILM 1 FILM SUBLINGUAL ×3 (09:08→21:12)
[2021-12-02] MEDS: Loratadine 10 MG TABLET PO (09:08)
[2021-12-02] MEDS: Gabapentin 600 MG TABLET PO ×3 (09:08→21:11)
[2021-12-02] MEDS: FLUoxetine HCl 20 MG CAPSULE 60 MG PO (09:08)
[2021-12-02] MEDS: Lidocaine 4 % Patch ADH..PATCH 1 PATCH TRANSDERMA ×2 (09:09)
[2021-12-02] MEDS: Nystatin Powder 15 GM BOTTLE 1 APPL TOPICAL ×3 (09:09→21:21)
[2021-12-02] MEDS: polyethylene glycoL 3350 17 GM POWD.PACK PO (09:09)
[2021-12-02 11:53] LABS: Glucose, Whole Blood 166 mg/dL (60-115)
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
[2021-12-02 13:01] LABS: ABG Base Excess 3.9 mmol/L; ABG HCO3 28 mmol/L (22-26); ABG pCO2 44 mmHg (32-45); ABG pH 7.41 (7.35-7.45); ABG pO2 82 mmHg (83-108)
[2021-12-02 13:02] LABS: Venous Blood Gas Refer to POC result
[2021-12-02] MEDS: bisacodyL 10 MG SUPP.RECT PR (15:28)
[2021-12-02 16:28] LABS: Glucose, Whole Blood 308 mg/dL (60-115)
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
[2021-12-02 21:03] LABS: Glucose, Whole Blood 170 mg/dL (60-115)
[2021-12-02] MEDS: Atorvastatin Calcium 80 MG TABLET PO (21:11)
[2021-12-02] MEDS: Docusate Sodium 100 MG CAPSULE PO (21:11)
[2021-12-02] MEDS: Insulin Glargine,Hum.rec.anlog 100 UNIT/ML 10 ML VIAL 18 UNIT SUBCUT (21:12)
[2021-12-02] MEDS: traZODone HCL 100 MG TABLET 200 MG PO (21:21)
[2021-12-03 03:22] VITALS: BP 137/71; PULSE 76; RESP 18; TEMP 36.5; O2SAT 96
[2021-12-03] MEDS: Heparin Sodium,Porcine 5,000 UNIT/ML VIAL 5000 UNIT SUBCUT ×3 (05:57→21:15)
[2021-12-03] MEDS: Levothyroxine Sodium 125 MCG TABLET 250 MCG PO (05:57)
[2021-12-03] MEDS: Omeprazole 20 MG CAPSULE.DR PO ×2 (05:57→16:50)
[2021-12-03 07:33] LABS: Anion Gap 11 (12-20); Blood Urea Nitrogen 40 mg/dL (9-16); Calcium 8.9 mg/dL (8.4-10.2); Carbon Dioxide 33 mmol/L (22-29); Chloride 100 mmol/L (96-108); Creatinine Clr Calc Pharmacy 110.2; Estimated Glomerular Filt Rate 46; Glucose Random 163 mg/dL (60-115); Potassium 4.8 mmol/L (3.3-5.1); Sodium 139 mmol/L (135-145)
[2021-12-03 07:38] LABS: Glucose, Whole Blood 161 mg/dL (60-115)
[2021-12-03 08:00] VITALS: BP 116/62; PULSE 80; RESP 18; TEMP 36.6; O2SAT 95
[2021-12-03] MEDS: Insulin Lispro 100 UNIT/ML 3 ML VIAL SUBCUT ×6 (08:41→20:45)
[2021-12-03] MEDS: FLUoxetine HCl 20 MG CAPSULE 60 MG PO (08:43)
[2021-12-03] MEDS: Furosemide 40 MG TABLET PO ×2 (08:44→16:50)
[2021-12-03] MEDS: Gabapentin 600 MG TABLET PO ×3 (08:44→20:44)
[2021-12-03] MEDS: Acetaminophen 325 MG TABLET 650 MG PO (08:44)
[2021-12-03] MEDS: Buprenorphine/Naloxone 8/2 mg FILM 1 FILM SUBLINGUAL ×3 (08:45→20:44)
[2021-12-03] MEDS: Loratadine 10 MG TABLET PO (08:45)
[2021-12-03] MEDS: amLODIPine Besylate 5 MG TABLET PO (08:45)
[2021-12-03] MEDS: Aspirin Enteric Coated 81 MG TABLET.DR PO (08:45)
[2021-12-03] MEDS: Lidocaine 4 % Patch ADH..PATCH 1 PATCH TRANSDERMA ×2 (08:46)
[2021-12-03] MEDS: polyethylene glycoL 3350 17 GM POWD.PACK PO (08:46)
[2021-12-03] MEDS: Nystatin Powder 15 GM BOTTLE 1 APPL TOPICAL ×2 (08:54→21:04)
[2021-12-03 11:28] LABS: Glucose, Whole Blood 171 mg/dL (60-115)
[2021-12-03 11:56] VITALS: BP 123/61; PULSE 73; RESP 18; TEMP 36.6; O2SAT 95
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
[2021-12-03 15:47] LABS: Glucose, Whole Blood 132 mg/dL (60-115)
[2021-12-03 15:56] VITALS: BP 130/66; PULSE 97; RESP 16; TEMP 36.4; O2SAT 96
[2021-12-03 19:07] VITALS: BP 144/74; PULSE 81; RESP 16; TEMP 36.9; O2SAT 95
[2021-12-03 19:54] LABS: Glucose, Whole Blood 184 mg/dL (60-115)
[2021-12-03] MEDS: Insulin Glargine,Hum.rec.anlog 100 UNIT/ML 10 ML VIAL 18 UNIT SUBCUT (20:44)
[2021-12-03] MEDS: traZODone HCL 100 MG TABLET 200 MG PO (20:44)
[2021-12-03] MEDS: Atorvastatin Calcium 80 MG TABLET PO (20:44)
[2021-12-03] MEDS: Docusate Sodium 100 MG CAPSULE PO (20:44)
[2021-12-03 23:59] VITALS: BP 128/60; PULSE 80; RESP 14; TEMP 36.8; O2SAT 94
[2021-12-04 03:59] VITALS: RESP 18
[2021-12-04] MEDS: Heparin Sodium,Porcine 5,000 UNIT/ML VIAL 5000 UNIT SUBCUT ×3 (05:54→20:42)
[2021-12-04] MEDS: Omeprazole 20 MG CAPSULE.DR PO ×2 (05:54→15:54)
[2021-12-04] MEDS: Levothyroxine Sodium 125 MCG TABLET 250 MCG PO (05:54)
[2021-12-04 07:18] LABS: Glucose, Whole Blood 154 mg/dL (60-115)
[2021-12-04 07:37] VITALS: BP 123/59; PULSE 79; RESP 20; TEMP 36.7; O2SAT 96
[2021-12-04] MEDS: FLUoxetine HCl 20 MG CAPSULE 60 MG PO (08:00)
[2021-12-04] MEDS: Furosemide 40 MG TABLET PO ×2 (08:00→16:10)
[2021-12-04] MEDS: Buprenorphine/Naloxone 8/2 mg FILM 1 FILM SUBLINGUAL ×3 (08:00→20:42)
[2021-12-04] MEDS: Aspirin Enteric Coated 81 MG TABLET.DR PO (08:01)
[2021-12-04] MEDS: Loratadine 10 MG TABLET PO (08:01)
[2021-12-04] MEDS: Gabapentin 600 MG TABLET PO ×3 (08:01→20:41)
[2021-12-04] MEDS: amLODIPine Besylate 5 MG TABLET PO (08:01)
[2021-12-04] MEDS: polyethylene glycoL 3350 17 GM POWD.PACK PO (08:01)
[2021-12-04] MEDS: Insulin Lispro 100 UNIT/ML 3 ML VIAL SUBCUT ×6 (08:01→20:42)
[2021-12-04] MEDS: Nystatin Powder 15 GM BOTTLE 1 APPL TOPICAL ×2 (08:02→20:48)
[2021-12-04] MEDS: Lidocaine 4 % Patch ADH..PATCH 1 PATCH TRANSDERMA ×2 (08:11→08:12)
[2021-12-04] MEDS: Acetaminophen 325 MG TABLET 650 MG PO (08:14)
[2021-12-04] MEDS: clonazePAM 0.5 MG TABLET 0.25 MG PO (08:15)
[2021-12-04 11:06] LABS: Glucose, Whole Blood 184 mg/dL (60-115)
[2021-12-04 11:11] VITALS: BP 133/69; PULSE 84; RESP 20; TEMP 36.4; O2SAT 95
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
[2021-12-04] MEDS: Sennosides/Docusate Sodium TABLET 1 TAB PO (15:00)
[2021-12-04 15:05] VITALS: BP 132/67; PULSE 75; RESP 18; TEMP 36.3; O2SAT 97
[2021-12-04] MEDS: bisacodyL 10 MG SUPP.RECT PR (15:11)
[2021-12-04 16:36] LABS: Glucose, Whole Blood 170 mg/dL (60-115)
[2021-12-04 18:46] VITALS: BP 119/62; PULSE 74; RESP 18; TEMP 36.6; O2SAT 97
[2021-12-04 19:17] LABS: Glucose, Whole Blood 167 mg/dL (60-115)
[2021-12-04] MEDS: Atorvastatin Calcium 80 MG TABLET PO (20:41)
[2021-12-04] MEDS: Insulin Glargine,Hum.rec.anlog 100 UNIT/ML 10 ML VIAL 18 UNIT SUBCUT (20:42)
[2021-12-04] MEDS: traZODone HCL 100 MG TABLET 200 MG PO (20:42)
[2021-12-04 23:49] VITALS: BP 124/67; PULSE 72; RESP 14; TEMP 36.2; O2SAT 98
[2021-12-05 04:00] VITALS: RESP 16
[2021-12-05] MEDS: Omeprazole 20 MG CAPSULE.DR PO ×2 (06:17→15:32)
[2021-12-05] MEDS: Levothyroxine Sodium 125 MCG TABLET 250 MCG PO (06:18)
[2021-12-05] MEDS: Heparin Sodium,Porcine 5,000 UNIT/ML VIAL 5000 UNIT SUBCUT ×3 (06:18→20:20)
[2021-12-05 07:53] VITALS: BP 128/71; PULSE 76; RESP 18; TEMP 36.1; O2SAT 94
[2021-12-05 07:59] LABS: Glucose, Whole Blood 158 mg/dL (60-115)
[2021-12-05] MEDS: Loratadine 10 MG TABLET PO (08:33)
[2021-12-05] MEDS: polyethylene glycoL 3350 17 GM POWD.PACK PO (08:33)
[2021-12-05] MEDS: FLUoxetine HCl 20 MG CAPSULE 60 MG PO (08:33)
[2021-12-05] MEDS: Gabapentin 600 MG TABLET PO ×3 (08:33→20:22)
[2021-12-05] MEDS: amLODIPine Besylate 5 MG TABLET PO (08:34)
[2021-12-05] MEDS: Buprenorphine/Naloxone 8/2 mg FILM 1 FILM SUBLINGUAL ×3 (08:34→20:21)
[2021-12-05] MEDS: Furosemide 40 MG TABLET PO ×2 (08:34→16:56)
[2021-12-05] MEDS: Aspirin Enteric Coated 81 MG TABLET.DR PO (08:34)
[2021-12-05] MEDS: Lidocaine 4 % Patch ADH..PATCH 1 PATCH TRANSDERMA ×2 (08:35)
[2021-12-05] MEDS: Nystatin Powder 15 GM BOTTLE 1 APPL TOPICAL ×3 (08:36→20:44)
[2021-12-05] MEDS: Insulin Lispro 100 UNIT/ML 3 ML VIAL SUBCUT ×8 (08:36→20:21)
[2021-12-05] MEDS: clonazePAM 0.5 MG TABLET 0.25 MG PO (08:43)
[2021-12-05 11:38] VITALS: BP 143/77; PULSE 75; RESP 18; TEMP 36.6; O2SAT 100
[2021-12-05 11:48] LABS: Glucose, Whole Blood 155 mg/dL (60-115)
[2021-12-05 15:36] VITALS: BP 141/76; PULSE 83; RESP 14; TEMP 36.3; O2SAT 95
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
[2021-12-05 16:29] LABS: Glucose, Whole Blood 191 mg/dL (60-115)
[2021-12-05 19:28] VITALS: BP 131/66; PULSE 76; RESP 14; TEMP 36.4; O2SAT 98
[2021-12-05] MEDS: Insulin Glargine,Hum.rec.anlog 100 UNIT/ML 10 ML VIAL 18 UNIT SUBCUT (20:19)
[2021-12-05] MEDS: Atorvastatin Calcium 80 MG TABLET PO (20:22)
[2021-12-05] MEDS: traZODone HCL 100 MG TABLET 200 MG PO (20:22)
[2021-12-05 20:32] LABS: Glucose, Whole Blood 172 mg/dL (60-115)
[2021-12-06] VITALS (7 sets, daily range): BP systolic 126–164; BP diastolic 60–84; PULSE 68–78; RESP 17–18; TEMP 36.1–36.5; O2SAT 95–98
[2021-12-06] MEDS: Omeprazole 20 MG CAPSULE.DR PO ×2 (05:15→17:36)
[2021-12-06] MEDS: Heparin Sodium,Porcine 5,000 UNIT/ML VIAL 5000 UNIT SUBCUT ×3 (05:15→20:11)
[2021-12-06] MEDS: Levothyroxine Sodium 125 MCG TABLET 250 MCG PO (05:15)
[2021-12-06 07:42] LABS: Glucose, Whole Blood 172 mg/dL (60-115)
--- NOTE | 2021-12-06 07:54 | HO.PM.IMPN ---
Subjective Subjective Date of Service: 12/06/21 Review of Systems Follow up awaiting placement feeling constipated Physical Exam Vital Signs: Vital Signs: Last Vital Signs Temp 97.1 F 12/06/21 07:20 Pulse 74 12/06/21 07:20 Resp 18 12/06/21 07:20 BP 127/66 12/06/21 07:20 Pulse Ox 95 12/06/21 07:20 O2 Del Method 12/06/21 07:20 O2 Flow Rate 2 12/06/21 07:20 BMI result Body Mass Index 78.2 Appearing in no acute distress lung sounds are clear to auscultation heart regular rate rhythm, clear S1, S2 positive bowel sounds, abdomen is soft, nontender, obese neuro patient is alert x3, no focal deficits Objective Data Active Medications Acetaminophen (Acetaminophen 325 Mg Tablet) 650 mg PO Q6H PRN PRN Reason: Pain, Mild (Pain Scale 1-3) Last Admin: 12/04/21 08:14 Dose: 650 mg Documented By: KAITLYNN Albuterol Sulfate (Albuterol Sulfate 90 Mcg 8 Gm Inhaler) 2 puff INHALE Q4H PRN PRN Reason: wheezing Amlodipine Besylate (Amlodipine Besylate 5 Mg Tablet) 5 mg PO DAILY [facility]; Protocol Last Admin: 12/05/21 08:34 Dose: 5 mg Documented By: EMMANUEL Aspirin (Aspirin Enteric Coated 81 Mg Tablet.) 81 mg PO DAILY [facility] Last Admin: 12/05/21 08:34 Dose: 81 mg Documented By: EMMANUEL Atorvastatin Calcium (Atorvastatin Calcium 80 Mg Tablet) 80 mg PO BEDTIME [facility] Last Admin: 12/05/21 20:22 Dose: 80 mg Documented By: ADINA Buprenorphine/Naloxone (Buprenorphine/Naloxone 8/2 Mg Film) 1 film SUBLINGUAL TID [facility] Last Admin: 12/05/21 20:21 Dose: 1 film Documented By: ADINA Clonazepam (Clonazepam 0.5 Mg Tablet) 0.25 mg PO DAILY PRN PRN Reason: Anxiety Last Admin: 12/05/21 08:43 Dose: 0.25 mg Documented By: EMMANUEL Fluoxetine HCl (Fluoxetine Hcl 20 Mg Capsule) 60 mg PO DAILY [facility] Last Admin: 12/05/21 08:33 Dose: 60 mg Documented By: EMMANUEL Furosemide (Furosemide 40 Mg Tablet) 40 mg PO BID@0900,1800 [facility]; Protocol Last Admin: 12/05/21 16:56 Dose: 40 mg Documented By: EMMANUEL Gabapentin (Gabapentin 600 Mg Tablet) 600 mg PO TID [facility] Last Admin: 12/05/21 20:22 Dose: 600 mg Documented By: ADINA Heparin Sodium (Porcine) (Heparin Sodium,Porcine 5,000 Unit/Ml Vial) 5,000 unit SUBCUT Q8H [facility] Last Admin: 12/06/21 05:15 Dose: 5,000 unit Documented By: ADINA Insulin Glargine (Insulin Glargine,Hum.Rec.Anlog 100 Unit/Ml 10 Ml Vial) 18 unit SUBCUT BEDTIME [facility] Last Admin: 12/05/21 20:19 Dose: 18 unit Documented By: ADINA Insulin Human Lispro (Insulin Lispro 100 Unit/Ml 3 Ml Vial) 0 unit SUBCUT QIDACHS [facility]; Protocol Last Admin: 12/05/21 20:20 Dose: 2 unit Documented By: ADINA Insulin Human Lispro (Insulin Lispro 100 Unit/Ml 3 Ml Vial) 5 unit SUBCUT QIDAS [facility] Last Admin: 12/05/21 20:21 Dose: 5 unit Documented By: ADINA Levothyroxine Sodium (Levothyroxine Sodium 125 Mcg Tablet) 250 mcg PO DAILY@0630 [facility] Last Admin: 12/06/21 05:15 Dose: 250 mcg Documented By: ADINA Lidocaine (Lidocaine 4 % Patch Adh..Patch) 1 patch TRANSDERMA DAILY [facility]; Protocol Last Admin: 12/05/21 08:35 Dose: 1 patch Documented By: EMMANUEL Lidocaine (Lidocaine 4 % Patch Adh..Patch) 1 patch TRANSDERMA DAILY [facility]; Protocol Last Admin: 12/05/21 08:35 Dose: 1 patch Documented By: EMMANUEL Loratadine (Loratadine 10 Mg Tablet) 10 mg PO DAILY [facility] Last Admin: 12/05/21 08:33 Dose: 10 mg Documented By: EMMANUEL Magnesium Hydroxide (Milk Of Magnesia 30 Ml Oral.Susp) 15 ml PO BEDTIME PRN PRN Reason: Constipation Last Admin: 11/30/21 19:34 Dose: 15 ml Documented By: ADINA Mineral Oil (Mineral Oil Enema 133 Ml Enema) 133 ml [place] ONCE PRN PRN Reason: constipation Nystatin (Nystatin Powder 15 Gm Bottle) 1 appl TOPICAL TID [facility]; Protocol Last Admin: 12/05/21 20:44 Dose: 1 appl Documented By: ADINA Omeprazole (Omeprazole 20 Mg Capsule.) 20 mg PO BID@0630,1630 [facility] Last Admin: 12/06/21 05:15 Dose: 20 mg Documented By: ADINA Ondansetron HCl (Ondansetron Hcl 4 Mg/2 Ml Vial) 4 mg IVPUSH Q8H PRN PRN Reason: Nausea and Vomiting Pharmacy Consult (Consult Rx Perform Med Rec) 1 each MISCELLANE ONCE PRN PRN Reason: Consult order Polyethylene Glycol (Polyethylene Glycol 3350 17 Gm Powd.Pack) 17 gm PO DAILY [facility] Last Admin: 12/05/21 08:33 Dose: 17 gm Documented By: EMMANUEL Senna/Docusate Sodium (Sennosides/Docusate Sodium Tablet) 1 tab PO DAILY [facility] Last Admin: 12/05/21 08:34 Dose: Not Given Documented By: EMMANUEL Non-Admin Reason: Patient Refused Sodium Chloride (0.9 % Sodium Chloride Flush 3 Ml Syringe) 3 ml IVFLUSH QSHIFT [facility] Last Admin: 12/05/21 20:47 Dose: Not Given Documented By: ADINA Non-Admin Reason: No Access Trazodone HCl (Trazodone Hcl 100 Mg Tablet) 200 mg PO BEDTIME PRN PRN Reason: Insomnia Last Admin: 12/05/21 20:22 Dose: 200 mg Documented By: ADINA Labs CBC & Chem 7: 12/02/21 08:28 12/03/21 05:56 Labs: Laboratory Results - last 24 hr 12/05/21 12/05/21 12/05/21 07:50 11:40 15:39 POC Glucose 158 H 155 H 191 H 12/05/21 12/06/21 19:30 07:17 POC Glucose 172 H 172 H Assessment and Plan (1) Constipation: Status: Acute (2) Morbid obesity: Status: Acute (3) Chronic respiratory failure with hypoxia: Status: Acute Plan 51 yo F who presented to ED with LE swelling, was awaiting STR placement but noted to have abd swelling and found to have hydronephrosis on abd CT that turns out to be chronic with decreased R kidney function Constipation multiple BMs documented, pt still reports hard stools continue bowel regimen Fleets enema moved her bowels Right hand swelling Neg for VTE chronic LE edema US negative for VTE; likely due to obesity, anemia, hypoalbuminemia, and likely R-sided HF IV furosemide changed to oral Lasix acute/chronic hypoxic resp failure likely OHS, COPD + asthma-overall better prn albuterol 1-2 liters nc at baseline chest/shoulder pain EKG normal and hs-Tn-I normal.? origin is MSK, likely shoulder impingement; continue lidocaine patch, PT/OT R hydronephrosis/proximal ureteral dilation Urology seen- no acute therapy indicated- chronic issue.? Lasix renogram showed diminished R renal function; normal on L.? outpt Uro f/u.? renal function stable. acute/chronic normocytic anemia likely anemia of CKD, improved s/p 1u pRBCs; normal iron studies/B12/FA H/H stable CKD3 Creatinine at baseline UTI treated with Ceftriaxone HTN continue amlodipine HLD continue atorvastatin L knee pain APAP for arthritis pain DM2 A1c 9.2, basal/bolus insulin hypothyroid TSH 20.29, increased LT4 200->250 mcg/d and repeat TSH in 6 wk mood disorder continue fluoxetine GERD PPI OUD Suboxone morbid obesity discussed importance of weight management as this is likely contributing to worsening of other comorbidities Attending Dr. Dolan VTE ppx- UFH Continued hospitalization/dispo - seen by physical therapy; they recommend short-term rehab for optimal functional gains.? however, no STR beds are available in the state due to her weight + Suboxone use + Covid-19 unvaccinated status.? She declines Covid-19 vaccine due to quaker beliefs as a [employer]. ? CM broadening search.? PT and OT working with pt to gain ability to get up her stairs herself in which case she could go home with VNA at some point Quality Stroke Does the patient have a stroke diagnosis?: No VTE Prior VTE?: No VTE Risk Level:: Medical - moderate - high VTE Device Contraindication: Treatment Not Indicated VTE Drug Contraindication: N/A - Med Ordered
[2021-12-06] MEDS: Buprenorphine/Naloxone 8/2 mg FILM 1 FILM SUBLINGUAL ×3 (08:57→20:11)
[2021-12-06] MEDS: polyethylene glycoL 3350 17 GM POWD.PACK PO (08:57)
[2021-12-06] MEDS: Insulin Lispro 100 UNIT/ML 3 ML VIAL SUBCUT ×7 (08:57→21:17)
[2021-12-06] MEDS: Aspirin Enteric Coated 81 MG TABLET.DR PO (08:58)
[2021-12-06] MEDS: Loratadine 10 MG TABLET PO (08:58)
[2021-12-06] MEDS: amLODIPine Besylate 5 MG TABLET PO (08:58)
[2021-12-06] MEDS: Gabapentin 600 MG TABLET PO ×3 (08:58→20:11)
[2021-12-06] MEDS: Furosemide 40 MG TABLET PO ×2 (08:58→17:36)
[2021-12-06] MEDS: FLUoxetine HCl 20 MG CAPSULE 60 MG PO (08:58)
[2021-12-06] MEDS: Lidocaine 4 % Patch ADH..PATCH 1 PATCH TRANSDERMA ×2 (08:59)
[2021-12-06] MEDS: Nystatin Powder 15 GM BOTTLE 1 APPL TOPICAL ×3 (09:00→21:19)
[2021-12-06] MEDS: clonazePAM 0.5 MG TABLET 0.25 MG PO (09:04)
[2021-12-06 11:23] LABS: Glucose, Whole Blood 163 mg/dL (60-115)
[2021-12-06 16:18] LABS: Glucose, Whole Blood 133 mg/dL (60-115)
[2021-12-06] MEDS: Atorvastatin Calcium 80 MG TABLET PO (20:11)
[2021-12-06 20:39] LABS: Glucose, Whole Blood 176 mg/dL (60-115)
[2021-12-06] MEDS: Insulin Glargine,Hum.rec.anlog 100 UNIT/ML 10 ML VIAL 18 UNIT SUBCUT (21:16)
[2021-12-06] MEDS: traZODone HCL 100 MG TABLET 200 MG PO (21:16)
[2021-12-07 03:35] VITALS: RESP 18
[2021-12-07] MEDS: Levothyroxine Sodium 125 MCG TABLET 250 MCG PO (05:44)
[2021-12-07] MEDS: Omeprazole 20 MG CAPSULE.DR PO ×2 (05:44→16:47)
[2021-12-07] MEDS: Heparin Sodium,Porcine 5,000 UNIT/ML VIAL 5000 UNIT SUBCUT ×3 (05:44→21:54)
[2021-12-07 07:10] VITALS: BP 116/64; PULSE 77; RESP 18; TEMP 36.4; O2SAT 96
[2021-12-07 07:29] LABS: Glucose, Whole Blood 141 mg/dL (60-115)
[2021-12-07] MEDS: Nystatin Powder 15 GM BOTTLE 1 APPL TOPICAL ×3 (08:27→22:04)
[2021-12-07] MEDS: Insulin Lispro 100 UNIT/ML 3 ML VIAL SUBCUT ×5 (08:27→21:54)
[2021-12-07] MEDS: amLODIPine Besylate 5 MG TABLET PO (08:28)
[2021-12-07] MEDS: Sennosides/Docusate Sodium TABLET 1 TAB PO (08:28)
[2021-12-07] MEDS: Furosemide 40 MG TABLET PO ×2 (08:28→16:47)
[2021-12-07] MEDS: FLUoxetine HCl 20 MG CAPSULE 60 MG PO (08:28)
[2021-12-07] MEDS: Buprenorphine/Naloxone 8/2 mg FILM 1 FILM SUBLINGUAL ×3 (08:28→21:53)
[2021-12-07] MEDS: Aspirin Enteric Coated 81 MG TABLET.DR PO (08:28)
[2021-12-07] MEDS: Gabapentin 600 MG TABLET PO ×3 (08:28→21:53)
[2021-12-07] MEDS: Loratadine 10 MG TABLET PO (08:28)
[2021-12-07] MEDS: polyethylene glycoL 3350 17 GM POWD.PACK PO (08:29)
[2021-12-07] MEDS: Lidocaine 4 % Patch ADH..PATCH 1 PATCH TRANSDERMA ×2 (08:29)
[2021-12-07 11:13] VITALS: BP 121/64; PULSE 73; RESP 18; TEMP 36.1; O2SAT 94
[2021-12-07 11:29] LABS: Glucose, Whole Blood 169 mg/dL (60-115)
--- NOTE | 2021-12-07 11:47 | HO.PM.IMPN ---
Subjective Subjective Date of Service: 12/07/21 Review of Systems Follow up awaiting placement feeling constipated Physical Exam Vital Signs: Vital Signs: Last Vital Signs Temp 97 F 12/07/21 11:13 Pulse 73 12/07/21 11:13 Resp 18 12/07/21 11:13 BP 121/64 12/07/21 11:13 Pulse Ox 94 12/07/21 11:13 O2 Del Method 12/07/21 11:13 O2 Flow Rate 2 12/07/21 11:13 BMI result Body Mass Index 78.2 Appearing in no acute distress lung sounds are clear to auscultation heart regular rate rhythm, clear S1, S2 positive bowel sounds, abdomen is soft, nontender, obese neuro patient is alert x3, no focal deficits Objective Data Active Medications Acetaminophen (Acetaminophen 325 Mg Tablet) 650 mg PO Q6H PRN PRN Reason: Pain, Mild (Pain Scale 1-3) Last Admin: 12/04/21 08:14 Dose: 650 mg Documented By: KAITLYNN Albuterol Sulfate (Albuterol Sulfate 90 Mcg 8 Gm Inhaler) 2 puff INHALE Q4H PRN PRN Reason: wheezing Amlodipine Besylate (Amlodipine Besylate 5 Mg Tablet) 5 mg PO DAILY [facility] BEDS AT [facility]; Protocol Last Admin: 12/07/21 08:28 Dose: 5 mg Documented By: LEXA Aspirin (Aspirin Enteric Coated 81 Mg Tablet.Dr) 81 mg PO DAILY [facility] 234 BEDS AT [facility] Last Admin: 12/07/21 08:28 Dose: 81 mg Documented By: LEXA Atorvastatin Calcium (Atorvastatin Calcium 80 Mg Tablet) 80 mg PO BEDTIME [facility]S [facility]CLUDE 234 BEDS AT [facility] Last Admin: 12/06/21 20:11 Dose: 80 mg Documented By: VARGAS Buprenorphine/Naloxone (Buprenorphine/Naloxone 8/2 Mg Film) 1 film SUBLINGUAL TID [facility]S [facility]CLUDE 234 BEDS AT [facility] Last Admin: 12/07/21 08:28 Dose: 1 film Documented By: LEXA Clonazepam (Clonazepam 0.5 Mg Tablet) 0.25 mg PO DAILY PRN PRN Reason: Anxiety Last Admin: 12/06/21 09:04 Dose: 0.25 mg Documented By: EMMANUEL Fluoxetine HCl (Fluoxetine Hcl 20 Mg Capsule) 60 mg PO DAILY [facility]CLUDE 234 BEDS AT [facility] Last Admin: 12/07/21 08:28 Dose: 60 mg Documented By: LEXA Furosemide (Furosemide 40 Mg Tablet) 40 mg PO BID@0900,1800 [facility] 234 BEDS AT [facility]; Protocol Last Admin: 12/07/21 08:28 Dose: 40 mg Documented By: LEXA Gabapentin (Gabapentin 600 Mg Tablet) 600 mg PO TID [facility]CLUDE 234 BEDS AT [facility] Last Admin: 12/07/21 08:28 Dose: 600 mg Documented By: LEXA Heparin Sodium (Porcine) (Heparin Sodium,Porcine 5,000 Unit/Ml Vial) 5,000 unit SUBCUT Q8H [facility]S [facility]CLUDE 234 BEDS AT [facility] Last Admin: 12/07/21 05:44 Dose: 5,000 unit Documented By: VARGAS Insulin Glargine (Insulin Glargine,Hum.Rec.Anlog 100 Unit/Ml 10 Ml Vial) 18 unit SUBCUT BEDTIME [facility]S [facility]CLUDE 234 BEDS AT [facility] Last Admin: 12/06/21 21:16 Dose: 18 unit Documented By: VARGAS Insulin Human Lispro (Insulin Lispro 100 Unit/Ml 3 Ml Vial) 0 unit SUBCUT QIDACHS [facility]S [facility]CLUDE 234 BEDS AT [facility]; Protocol Last Admin: 12/07/21 11:38 Dose: 2 unit Documented By: LEXA Insulin Human Lispro (Insulin Lispro 100 Unit/Ml 3 Ml Vial) 5 unit SUBCUT QIDAS COUNTS INCLUDE 234 BEDS AT THE [facility] Last Admin: 12/07/21 11:38 Dose: 5 unit Documented By: LEXA Levothyroxine Sodium (Levothyroxine Sodium 125 Mcg Tablet) 250 mcg PO DAILY@0630 COUNTS INCLUDE 234 BEDS AT [facility] Last Admin: 12/07/21 05:44 Dose: 250 mcg Documented By: VARGAS Lidocaine (Lidocaine 4 % Patch Adh..Patch) 1 patch TRANSDERMA DAILY [facility]S [facility]CLUDE 234 BEDS AT [facility]; Protocol Last Admin: 12/07/21 08:29 Dose: 1 patch Documented By: LEXA Lidocaine (Lidocaine 4 % Patch Adh..Patch) 1 patch TRANSDERMA DAILY [facility]S [facility]CLUDE 234 BEDS AT [facility]; Protocol Last Admin: 12/07/21 08:29 Dose: 1 patch Documented By: LEXA Loratadine (Loratadine 10 Mg Tablet) 10 mg PO DAILY [facility]CLUDE 234 BEDS AT [facility] Last Admin: 12/07/21 08:28 Dose: 10 mg Documented By: LEXA Magnesium Hydroxide (Milk Of Magnesia 30 Ml Oral.Susp) 15 ml PO BEDTIME PRN PRN Reason: Constipation Last Admin: 11/30/21 19:34 Dose: 15 ml Documented By: ADINA Mineral Oil (Mineral Oil Enema 133 Ml Enema) 133 ml [place] ONCE PRN PRN Reason: constipation Nystatin (Nystatin Powder 15 Gm Bottle) 1 appl TOPICAL TID COUNTS INCLUDE 234 BEDS AT [facility]; Protocol Last Admin: 12/07/21 08:27 Dose: 1 appl Documented By: LEXA Omeprazole (Omeprazole 20 Mg Capsule.) 20 mg PO BID@0630,1630 COUNTS [facility]CLUDE 234 BEDS AT [facility] Last Admin: 12/07/21 05:44 Dose: 20 mg Documented By: VARGAS Ondansetron HCl (Ondansetron Hcl 4 Mg/2 Ml Vial) 4 mg IVPUSH Q8H PRN PRN Reason: Nausea and Vomiting Pharmacy Consult (Consult Rx Perform Med Rec) 1 each MISCELLANE ONCE PRN PRN Reason: Consult order Polyethylene Glycol (Polyethylene Glycol 3350 17 Gm Powd.Pack) 17 gm PO DAILY [facility]S INCLUDE 234 BEDS AT [facility] Last Admin: 12/07/21 08:29 Dose: 17 gm Documented By: LEXA Senna/Docusate Sodium (Sennosides/Docusate Sodium Tablet) 1 tab PO DAILY [facility]S [facility]CLUDE 234 BEDS AT [facility] Last Admin: 12/07/21 08:28 Dose: 1 tab Documented By: LEXA Sodium Chloride (0.9 % Sodium Chloride Flush 3 Ml Syringe) 3 ml IVFLUSH QSHIFT COUNTS INCLUDE 234 BEDS AT THE [facility] Last Admin: 12/07/21 08:28 Dose: Not Given Documented By: LEXA Non-Admin Reason: No Access Trazodone HCl (Trazodone Hcl 100 Mg Tablet) 200 mg PO BEDTIME PRN PRN Reason: Insomnia Last Admin: 12/06/21 21:16 Dose: 200 mg Documented By: VARGAS Labs CBC & Chem 7: 12/02/21 08:28 12/03/21 05:56 Labs: Laboratory Results - last 24 hr 12/06/21 12/06/21 12/07/21 16:11 20:35 07:08 POC Glucose 133 H 176 H 141 H 12/07/21 11:11 POC Glucose 169 H Assessment and Plan (1) Constipation: Status: Acute (2) Morbid obesity: Status: Acute (3) Chronic respiratory failure with hypoxia: Status: Acute Plan 51 yo F who presented to ED with LE swelling, was awaiting STR placement but noted to have abd swelling and found to have hydronephrosis on abd CT that turns out to be chronic with decreased R kidney function Constipation multiple BMs documented, pt still reports hard stools continue bowel regimen Fleets enema moved her bowels Right hand swelling Neg for VTE chronic LE edema US negative for VTE; likely due to obesity, anemia, hypoalbuminemia, and likely R-sided HF IV furosemide changed to oral Lasix acute/chronic hypoxic resp failure likely OHS, COPD + asthma-overall better prn albuterol 1-2 liters nc at baseline chest/shoulder pain EKG normal and hs-Tn-I normal.? origin is MSK, likely shoulder impingement; continue lidocaine patch, PT/OT R hydronephrosis/proximal ureteral dilation Urology seen- no acute therapy indicated- chronic issue.? Lasix renogram showed diminished R renal function; normal on L.? outpt Uro f/u.? renal function stable. acute/chronic normocytic anemia likely anemia of CKD, improved s/p 1u pRBCs; normal iron studies/B12/FA H/H stable CKD3 Creatinine at baseline UTI treated with Ceftriaxone HTN continue amlodipine HLD continue atorvastatin L knee pain APAP for arthritis pain DM2 A1c 9.2, basal/bolus insulin hypothyroid TSH 20.29, increased LT4 200->250 mcg/d and repeat TSH in 6 wk mood disorder continue fluoxetine GERD PPI OUD Suboxone morbid obesity discussed importance of weight management as this is likely contributing to worsening of other comorbidities VTE ppx- UFH Continued hospitalization/dispo - seen by physical therapy; they recommend short-term rehab for optimal functional gains.? however, no STR beds are available in the state due to her weight + Suboxone use + Covid-19 unvaccinated status.? She declines Covid-19 vaccine due to restoration beliefs as a [employer]ism. ? CM broadening search.? PT and OT working with pt to gain ability to get up her stairs herself in which case she could go home with VNA at some point Quality Stroke Does the patient have a stroke diagnosis?: No VTE Prior VTE?: No VTE Risk Level:: Medical - moderate - high VTE Device Contraindication: Treatment Not Indicated VTE Drug Contraindication: N/A - Med Ordered
--- NOTE | 2021-12-07 14:48 | MHC.CLN ---
NUTRITION CONSULT FOR OBESITY/WEIGHT LOSS. DIET=DIABETIC 1800 KCALS. HAD ORDER PER MD FOR GLUCERNA BID. DISLIKES AND NO APPARENT NUTRITIONAL NEED FOR SUPPLEMENT AT THIS TIME SO DISCONTINUED. WEIGHED TODAY ON BEDSCALE WITH VDNDBG=839 KG (402#). 11/08/21 JTCIKI=303.796 KG (499#). SHOWS WEIGHT LOSS OF 43.8 KG, 19.3% X ONE MONTH. REVIEW OF WEIGHT HISTORY SHOWS 10/04/21=145.15 KG (319.3#); 08/03/21=136.5 KG (300#); 11/26/20=155.13 KG (341.3#). PATIENT REPORTS THAT SWELLING IS DECREASED SINCE ADMISSION AND IS ABLE TO MOVE BETTER IN BED. PATIENT WOULD LIKE TO LOSE WEIGHT. PATIENT STATED THAT 7 MONTHS AGO SHE WEIGHED 426#. RECALLS LOWEST MOST RECENT KMZFMB=520# (08/23). THAT WAS FAVORABLE WEIGHT FOR HER AND DISCUSSED THAT A REASONABLE WEIGHT GOAL. WEIGHT LOSS ACHIEVED THROUGH DIET CONTROL/EATING BETTER. DISCUSSED HEALTHY EATING AND PROVIDED HANDOUTS PLANNING HEALTHY MEALS AND EATING RIGHT FOR A HEALTHY WEIGHT . RECEPTIVE TO INFORMATION PROVIDED. DIABETIC 1800 KCAL DIET PROVIDES 19.6 KCALS/KG CALCULATED METABOLIC WEIGHT. RECOMMEND THAT WEIGHT IS RECHECKED FOR ACCURACY. RD AVAILABLE FOR ADDITIONAL NUTRITION EDUCATION NEEDED.
--- NOTE | 2021-12-07 15:26 | MHC.CM.PN ---
EMR REVIEWED, PER PT PT C/O KNEE PAIN AND DECLINING TO ATTEMPT TO STAND, HOWEVER PT WAS NOT EVEN TAKEN TYLENOL SINCE 12/04/21, PHYSICAL THERAPY FEELS THE ONLY WAY TO GET PT MOVING IS TO GET HER UP AND WILL NEED A LIFT TO DO SO SAFELY PT IS DECLINING TO TRY. CASE DISCUSSED IN MULTIDISCIPLINARY ROUNDS AND UPPER MANAGEMENT WILL ATTEMPT TO PURCHASE A LIFT THAT WILL ASSIST PT TO STAND, PT HAS GIVEN THIS CM SPECS ON TWO DEVICES AND THESE WERE EMAILED TO [employer].
[2021-12-07 15:32] VITALS: BP 147/76; PULSE 83; RESP 16; TEMP 36.9; O2SAT 98
[2021-12-07 16:03] LABS: Glucose, Whole Blood 129 mg/dL (60-115)
[2021-12-07 20:00] VITALS: BP 145/72; PULSE 77; RESP 18; TEMP 36.3; O2SAT 96
[2021-12-07 21:26] LABS: Glucose, Whole Blood 148 mg/dL (60-115)
[2021-12-07] MEDS: Atorvastatin Calcium 80 MG TABLET PO (21:53)
[2021-12-07] MEDS: Insulin Glargine,Hum.rec.anlog 100 UNIT/ML 10 ML VIAL 18 UNIT SUBCUT (21:54)
[2021-12-07] MEDS: traZODone HCL 100 MG TABLET 200 MG PO (22:00)
[2021-12-07 23:42] VITALS: BP 123/58; PULSE 75; RESP 18; TEMP 36.4; O2SAT 96
[2021-12-08 03:12] VITALS: BP 139/70; PULSE 76; RESP 18; TEMP 36.4; O2SAT 96
[2021-12-08] MEDS: Heparin Sodium,Porcine 5,000 UNIT/ML VIAL 5000 UNIT SUBCUT ×3 (05:36→20:05)
[2021-12-08] MEDS: Omeprazole 20 MG CAPSULE.DR PO ×2 (05:36→15:13)
[2021-12-08] MEDS: Levothyroxine Sodium 125 MCG TABLET 250 MCG PO (05:36)
[2021-12-08] MEDS: Acetaminophen 325 MG TABLET 650 MG PO ×2 (05:39→12:33)
[2021-12-08 07:08] VITALS: BP 129/68; PULSE 75; RESP 18; TEMP 36.4; O2SAT 93
[2021-12-08 07:35] LABS: Glucose, Whole Blood 154 mg/dL (60-115)
[2021-12-08] MEDS: Insulin Lispro 100 UNIT/ML 3 ML VIAL SUBCUT ×7 (08:44→20:05)
[2021-12-08] MEDS: clonazePAM 0.5 MG TABLET 0.25 MG PO (08:45)
[2021-12-08] MEDS: FLUoxetine HCl 20 MG CAPSULE 60 MG PO (08:45)
[2021-12-08] MEDS: Aspirin Enteric Coated 81 MG TABLET.DR PO (08:46)
[2021-12-08] MEDS: Buprenorphine/Naloxone 8/2 mg FILM 1 FILM SUBLINGUAL ×3 (08:46→20:03)
[2021-12-08] MEDS: polyethylene glycoL 3350 17 GM POWD.PACK PO (08:46)
[2021-12-08] MEDS: Sennosides/Docusate Sodium TABLET 1 TAB PO (08:46)
[2021-12-08] MEDS: amLODIPine Besylate 5 MG TABLET PO (08:46)
[2021-12-08] MEDS: Loratadine 10 MG TABLET PO (08:46)
[2021-12-08] MEDS: Furosemide 40 MG TABLET PO ×2 (08:46→16:59)
[2021-12-08] MEDS: Gabapentin 600 MG TABLET PO ×3 (08:46→20:03)
[2021-12-08] MEDS: Nystatin Powder 15 GM BOTTLE 1 APPL TOPICAL ×3 (08:47→20:57)
[2021-12-08] MEDS: Lidocaine 4 % Patch ADH..PATCH 1 PATCH TRANSDERMA ×2 (08:47→08:48)
--- NOTE | 2021-12-08 09:10 | HO.PM.IMPN ---
Subjective Subjective Date of Service: 12/08/21 Review of Systems Follow up awaiting placement Physical Exam Vital Signs: Vital Signs: Last Vital Signs Temp 97.6 F 12/08/21 07:08 Pulse 75 12/08/21 07:08 Resp 18 12/08/21 07:08 BP 129/68 12/08/21 07:08 Pulse Ox 93 12/08/21 07:08 O2 Del Method 12/08/21 07:08 O2 Flow Rate 2 12/08/21 07:08 BMI result Body Mass Index 78.2 Appearing in no acute distress lung sounds are clear to auscultation heart regular rate rhythm, clear S1, S2 positive bowel sounds, abdomen is soft, nontender, obese neuro patient is alert x3, no focal deficits Objective Data Active Medications Acetaminophen (Acetaminophen 325 Mg Tablet) 650 mg PO Q6H PRN PRN Reason: Pain, Mild (Pain Scale 1-3) Last Admin: 12/08/21 05:39 Dose: 650 mg Documented By: SUSHANT Albuterol Sulfate (Albuterol Sulfate 90 Mcg 8 Gm Inhaler) 2 puff INHALE Q4H PRN PRN Reason: wheezing Amlodipine Besylate (Amlodipine Besylate 5 Mg Tablet) 5 mg PO DAILY [facility]; Protocol Last Admin: 12/08/21 08:46 Dose: 5 mg Documented By: SUMAN Aspirin (Aspirin Enteric Coated 81 Mg Tablet.Dr) 81 mg PO DAILY [facility] Last Admin: 12/08/21 08:46 Dose: 81 mg Documented By: SUMAN Atorvastatin Calcium (Atorvastatin Calcium 80 Mg Tablet) 80 mg PO BEDTIME [facility] Last Admin: 12/07/21 21:53 Dose: 80 mg Documented By: SUSHANT Buprenorphine/Naloxone (Buprenorphine/Naloxone 8/2 Mg Film) 1 film SUBLINGUAL TID [facility] Last Admin: 12/08/21 08:46 Dose: 1 film Documented By: SUMAN Fluoxetine HCl (Fluoxetine Hcl 20 Mg Capsule) 60 mg PO DAILY [facility] Last Admin: 12/08/21 08:45 Dose: 60 mg Documented By: SUMAN Furosemide (Furosemide 40 Mg Tablet) 40 mg PO BID@0900,1800 [facility]; Protocol Last Admin: 12/08/21 08:46 Dose: 40 mg Documented By: SUMAN Gabapentin (Gabapentin 600 Mg Tablet) 600 mg PO TID [facility] Last Admin: 12/08/21 08:46 Dose: 600 mg Documented By: SUMAN Heparin Sodium (Porcine) (Heparin Sodium,Porcine 5,000 Unit/Ml Vial) 5,000 unit SUBCUT Q8H [facility] Last Admin: 12/08/21 05:36 Dose: 5,000 unit Documented By: SUSHANT Insulin Glargine (Insulin Glargine,Hum.Rec.Anlog 100 Unit/Ml 10 Ml Vial) 18 unit SUBCUT BEDTIME [facility] Last Admin: 12/07/21 21:54 Dose: 18 unit Documented By: SUSHANT Insulin Human Lispro (Insulin Lispro 100 Unit/Ml 3 Ml Vial) 0 unit SUBCUT QIDACHS [facility]; Protocol Last Admin: 12/08/21 08:44 Dose: 2 unit Documented By: SUMAN Insulin Human Lispro (Insulin Lispro 100 Unit/Ml 3 Ml Vial) 5 unit SUBCUT QIDACHS [facility] Last Admin: 12/08/21 08:44 Dose: 5 unit Documented By: SUMAN Levothyroxine Sodium (Levothyroxine Sodium 125 Mcg Tablet) 250 mcg PO DAILY@0630 [facility] Last Admin: 12/08/21 05:36 Dose: 250 mcg Documented By: SUSHANT Lidocaine (Lidocaine 4 % Patch Adh..Patch) 1 patch TRANSDERMA DAILY [facility]; Protocol Last Admin: 12/08/21 08:47 Dose: 1 patch Documented By: SUMAN Lidocaine (Lidocaine 4 % Patch Adh..Patch) 1 patch TRANSDERMA DAILY [facility]; Protocol Last Admin: 12/08/21 08:48 Dose: 1 patch Documented By: SUMAN Loratadine (Loratadine 10 Mg Tablet) 10 mg PO DAILY [facility] Last Admin: 12/08/21 08:46 Dose: 10 mg Documented By: SUMAN Magnesium Hydroxide (Milk Of Magnesia 30 Ml Oral.Susp) 15 ml PO BEDTIME PRN PRN Reason: Constipation Last Admin: 11/30/21 19:34 Dose: 15 ml Documented By: ADINA Mineral Oil (Mineral Oil Enema 133 Ml Enema) 133 ml [place] ONCE PRN PRN Reason: constipation Nystatin (Nystatin Powder 15 Gm Bottle) 1 appl TOPICAL TID [facility]; Protocol Last Admin: 12/08/21 08:47 Dose: 1 appl Documented By: SUMAN Omeprazole (Omeprazole 20 Mg Capsule.) 20 mg PO BID@0630,1630 [facility] Last Admin: 12/08/21 05:36 Dose: 20 mg Documented By: SUSHANT Ondansetron HCl (Ondansetron Hcl 4 Mg/2 Ml Vial) 4 mg IVPUSH Q8H PRN PRN Reason: Nausea and Vomiting Pharmacy Consult (Consult Rx Perform Med Rec) 1 each MISCELLANE ONCE PRN PRN Reason: Consult order Polyethylene Glycol (Polyethylene Glycol 3350 17 Gm Powd.Pack) 17 gm PO DAILY [facility] Last Admin: 12/08/21 08:46 Dose: 17 gm Documented By: SUMAN Senna/Docusate Sodium (Sennosides/Docusate Sodium Tablet) 1 tab PO DAILY [facility] Last Admin: 12/08/21 08:46 Dose: 1 tab Documented By: SUMAN Sodium Chloride (0.9 % Sodium Chloride Flush 3 Ml Syringe) 3 ml IVFLUSH QSHIFT [facility] Last Admin: 12/08/21 08:45 Dose: Not Given Documented By: SUMAN Non-Admin Reason: No Access Trazodone HCl (Trazodone Hcl 100 Mg Tablet) 200 mg PO BEDTIME PRN PRN Reason: Insomnia Last Admin: 12/07/21 22:00 Dose: 200 mg Documented By: SUSHANT Labs CBC & Chem 7: 12/02/21 08:28 12/03/21 05:56 Labs: Laboratory Results - last 24 hr 12/07/21 12/07/21 12/07/21 11:11 15:53 20:32 POC Glucose 169 H 129 H 148 H 12/08/21 07:05 POC Glucose 154 H Assessment and Plan (1) Constipation: Status: Acute (2) Morbid obesity: Status: Acute (3) Chronic respiratory failure with hypoxia: Status: Acute Plan 51 yo F who presented to ED with LE swelling, was awaiting STR placement but noted to have abd swelling and found to have hydronephrosis on abd CT that turns out to be chronic with decreased R kidney function Constipation multiple BMs documented, pt still reports hard stools continue bowel regimen Right hand swelling Neg for VTE chronic LE edema US negative for VTE; likely due to obesity, anemia, hypoalbuminemia, and likely R-sided HF IV furosemide changed to oral Lasix acute/chronic hypoxic resp failure likely OHS, COPD + asthma-overall better prn albuterol 1-2 liters nc at baseline chest/shoulder pain EKG normal and hs-Tn-I normal.? origin is MSK, likely shoulder impingement; continue lidocaine patch, PT/OT R hydronephrosis/proximal ureteral dilation Urology seen- no acute therapy indicated- chronic issue.? Lasix renogram showed diminished R renal function; normal on L.? outpt Uro f/u.? renal function stable. acute/chronic normocytic anemia likely anemia of CKD, improved s/p 1u pRBCs; normal iron studies/B12/FA H/H stable CKD3 Creatinine at baseline UTI treated with Ceftriaxone HTN continue amlodipine HLD continue atorvastatin L knee pain APAP for arthritis pain DM2 A1c 9.2, basal/bolus insulin hypothyroid TSH 20.29, increased LT4 200->250 mcg/d and repeat TSH in 6 wk mood disorder continue fluoxetine GERD PPI OUD Suboxone morbid obesity discussed importance of weight management as this is likely contributing to worsening of other comorbidities VTE ppx- UFH Continued hospitalization/dispo - seen by physical therapy; they recommend short-term rehab for optimal functional gains.? however, no STR beds are available in the state due to her weight + Suboxone use + Covid-19 unvaccinated status.? She declines Covid-19 vaccine due to muslim beliefs as a [employer]. ? CM broadening search.? PT and OT working with pt to gain ability to get up her stairs herself in which case she could go home with VNA at some point Quality Stroke Does the patient have a stroke diagnosis?: No VTE Prior VTE?: No VTE Risk Level:: Medical - moderate - high VTE Device Contraindication: Treatment Not Indicated VTE Drug Contraindication: N/A - Med Ordered
[2021-12-08 11:29] LABS: Glucose, Whole Blood 135 mg/dL (60-115)
[2021-12-08 12:00] VITALS: BP 120/70; PULSE 70; RESP 18; TEMP 36.2; O2SAT 96
--- NOTE | 2021-12-08 14:06 | MHC.CM.PN ---
THIS CM AND ADDITIONAL PHOTOGRAPHY PROFESSOR MET W/PT AND BF AT BEDSIDE TO ENCOURAGE PT TO GET UP OUT BED W/BARIATRIC EQUIPMENT AND DETERMINE IF PT'S BF HAD CONTACTED [employer] TO DETERMINE IF PT COULD MOVE TO FIRST FLOOR. PT'S BF AND ZAIRE PHILLIP REPORTS [employer] HAD THEM CONTACT PT'S [employer], PT GAVE THIS CM VERBAL CONSENT TO CONTACT [employer] [employer] WHO WAS FOLLOWING UP W/PT'S [place] TO DETERMINE IF SHE COULD MOVE TO THE FIRST FLOOR. NEITHER PT OR KENJI REPORT THEY HAVE [employer]'S CONTACT NUMBER AND COMMUNICATE W/HER THROUGH MESSENGER. CM RECONFIRMED PT GIVING VERBAL CONSENT TO ATTEMPT TO CONTACT [facility], CM WILL SEARCH FOR PT. CM DID DISCUSS PT'S RELUCTANCE TO GET UP AND GET OUT OF BED W/BARIATRIC NAI AND CHAIR, PT'S BF REPORTED PT HAD BEEN ON IBUPROFEN AND HAD GOTTEN WORSE AND STOPPED GETTING UP AFTER IT WAS STOPPED, BF REPORTS PT HADN'T GOTTEN OUT OF BED FOR 2 WKS PRIOR TO DECIDING TO COME TO THE HOSPITAL. PT WAS ASSISTED W/MULTIPLE STAFF TO GET UP VIA BARIATRIC NAI INTO RECLINER, PT WAS NERVOUS HOWEVER DID VERY WELL AND WAS PLEASED TO BE UP IN CHAIR ONCE SETTLED, PT SMILING AND REPETITIVELY STATED SHE FELT MUCH BETTER UP IN CHAIR AND WAS STRETCHING HER LEGS AND FEET WHILE UP IN CHAIR. CM WILL PLAN TO COORDINATE STAFF TO GET OUT OF BED AT LEAST ONCE DAILY. CM WILL CONT TO FOLLOW D/C NEEDS
[2021-12-08 15:22] VITALS: BP 140/69; PULSE 92; RESP 18; TEMP 36.4; O2SAT 100
[2021-12-08 15:48] LABS: Glucose, Whole Blood 198 mg/dL (60-115)
--- NOTE | 2021-12-08 16:43 | PC.NURSE ---
Alert and oriented. C/O left leg pain post PT, prn tylenol given with some effect. Out of bed to chair via sergio lift assist x4. Patient tolerated it well, stayed in the chair for at least 2 hours, them requested to go back to bed. Patient sergio back to the bed with assist of 4 people. C/O increase legs pain during transfer, new order to give ibuprofen as needed in place. Medicated per MAR with good effect. Will continue to monitor and treat per plan of care.
[2021-12-08] MEDS: Ibuprofen 400 MG TABLET PO (16:59)
[2021-12-08 19:02] VITALS: BP 108/59; PULSE 75; RESP 20; TEMP 36.4; O2SAT 97
[2021-12-08 19:29] LABS: Glucose, Whole Blood 194 mg/dL (60-115)
[2021-12-08] MEDS: traZODone HCL 100 MG TABLET 200 MG PO (20:03)
[2021-12-08] MEDS: Atorvastatin Calcium 80 MG TABLET PO (20:03)
[2021-12-08] MEDS: Insulin Glargine,Hum.rec.anlog 100 UNIT/ML 10 ML VIAL 18 UNIT SUBCUT (20:03)
[2021-12-08 23:41] VITALS: BP 134/61; PULSE 112; RESP 18; TEMP 36.2; O2SAT 99
[2021-12-09] VITALS (7 sets, daily range): BP systolic 104–127; BP diastolic 53–75; PULSE 65–79; RESP 16–18; TEMP 36.1–37; O2SAT 93–99
[2021-12-09] MEDS: Acetaminophen 325 MG TABLET 650 MG PO (00:37)
[2021-12-09] MEDS: Heparin Sodium,Porcine 5,000 UNIT/ML VIAL 5000 UNIT SUBCUT ×3 (05:36→20:22)
[2021-12-09] MEDS: Omeprazole 20 MG CAPSULE.DR PO ×2 (05:37→14:58)
[2021-12-09] MEDS: Levothyroxine Sodium 125 MCG TABLET 250 MCG PO (05:37)
[2021-12-09 08:28] LABS: Glucose, Whole Blood 142 mg/dL (60-115)
[2021-12-09] MEDS: Lidocaine 4 % Patch ADH..PATCH 1 PATCH TRANSDERMA (08:48)
[2021-12-09] MEDS: Insulin Lispro 100 UNIT/ML 3 ML VIAL SUBCUT ×5 (08:50→20:23)
[2021-12-09] MEDS: Nystatin Powder 15 GM BOTTLE 1 APPL TOPICAL ×3 (08:51→20:24)
[2021-12-09] MEDS: FLUoxetine HCl 20 MG CAPSULE 60 MG PO (08:52)
[2021-12-09] MEDS: polyethylene glycoL 3350 17 GM POWD.PACK PO (08:52)
[2021-12-09] MEDS: Ibuprofen 400 MG TABLET PO ×2 (08:53→17:40)
[2021-12-09] MEDS: Gabapentin 600 MG TABLET PO ×3 (08:53→20:22)
[2021-12-09] MEDS: Furosemide 40 MG TABLET PO ×2 (08:53→17:20)
[2021-12-09] MEDS: Loratadine 10 MG TABLET PO (08:53)
[2021-12-09] MEDS: Aspirin Enteric Coated 81 MG TABLET.DR PO (08:53)
[2021-12-09] MEDS: amLODIPine Besylate 5 MG TABLET PO (08:54)
[2021-12-09] MEDS: Buprenorphine/Naloxone 8/2 mg FILM 1 FILM SUBLINGUAL ×3 (08:54→20:22)
--- NOTE | 2021-12-09 09:37 | P.PNIM_ITS ---
Subjective Subjective Date of Service: 12/09/21 Review of Systems Follow up awaiting placement Physical Exam Vital Signs: Vital Signs: Last Vital Signs Temp 97.3 F 12/09/21 07:57 Pulse 73 12/09/21 07:57 Resp 16 12/09/21 07:57 BP 104/75 12/09/21 07:57 Pulse Ox 93 12/09/21 07:57 O2 Del Method 12/09/21 07:57 O2 Flow Rate 2 12/09/21 07:57 BMI result Body Mass Index 78.2 Appearing in no acute distress lung sounds are clear to auscultation heart regular rate rhythm, clear S1, S2 positive bowel sounds, abdomen is soft, nontender, obese neuro patient is alert x3, no focal deficits Objective Data Active Medications Acetaminophen (Acetaminophen 325 Mg Tablet) 650 mg PO Q6H PRN PRN Reason: Pain, Mild (Pain Scale 1-3) Last Admin: 12/09/21 00:37 Dose: 650 mg Documented By: ADINA Albuterol Sulfate (Albuterol Sulfate 90 Mcg 8 Gm Inhaler) 2 puff INHALE Q4H PRN PRN Reason: wheezing Amlodipine Besylate (Amlodipine Besylate 5 Mg Tablet) 5 mg PO DAILY [facility]; Protocol Last Admin: 12/09/21 08:54 Dose: 5 mg Documented By: SUMAN Aspirin (Aspirin Enteric Coated 81 Mg Tablet.Dr) 81 mg PO DAILY [facility] Last Admin: 12/09/21 08:53 Dose: 81 mg Documented By: SUMAN Atorvastatin Calcium (Atorvastatin Calcium 80 Mg Tablet) 80 mg PO BEDTIME [facility] Last Admin: 12/08/21 20:03 Dose: 80 mg Documented By: ADINA Buprenorphine/Naloxone (Buprenorphine/Naloxone 8/2 Mg Film) 1 film SUBLINGUAL TID [facility] Last Admin: 12/09/21 08:54 Dose: 1 film Documented By: SUMAN Clonazepam (Clonazepam 0.5 Mg Tablet) 0.5 mg PO DAILY PRN PRN Reason: anxiety Fluoxetine HCl (Fluoxetine Hcl 20 Mg Capsule) 60 mg PO DAILY [facility] Last Admin: 12/09/21 08:52 Dose: 60 mg Documented By: SUMAN Furosemide (Furosemide 40 Mg Tablet) 40 mg PO BID@0900,1800 [facility]; Protocol Last Admin: 12/09/21 08:53 Dose: 40 mg Documented By: SUMAN Gabapentin (Gabapentin 600 Mg Tablet) 600 mg PO TID [facility] Last Admin: 12/09/21 08:53 Dose: 600 mg Documented By: SUMAN Heparin Sodium (Porcine) (Heparin Sodium,Porcine 5,000 Unit/Ml Vial) 5,000 unit SUBCUT Q8H [facility] Last Admin: 12/09/21 05:36 Dose: 5,000 unit Documented By: ADINA Ibuprofen (Ibuprofen 400 Mg Tablet) 400 mg PO Q6H PRN PRN Reason: moderate pain Last Admin: 12/09/21 08:53 Dose: 400 mg Documented By: SUMAN Insulin Glargine (Insulin Glargine,Hum.Rec.Anlog 100 Unit/Ml 10 Ml Vial) 18 unit SUBCUT BEDTIME [facility] Last Admin: 12/08/21 20:03 Dose: 18 unit Documented By: ADINA Insulin Human Lispro (Insulin Lispro 100 Unit/Ml 3 Ml Vial) 0 unit SUBCUT QIDACHS [facility]; Protocol Last Admin: 12/09/21 08:51 Dose: Not Given Documented By: SUMAN Non-Admin Reason: No Insulin Coverage Insulin Human Lispro (Insulin Lispro 100 Unit/Ml 3 Ml Vial) 5 unit SUBCUT QIDACHS [facility] Last Admin: 12/09/21 08:50 Dose: 5 unit Documented By: SUMAN Levothyroxine Sodium (Levothyroxine Sodium 125 Mcg Tablet) 250 mcg PO DAILY@0630 [facility] Last Admin: 12/09/21 05:37 Dose: 250 mcg Documented By: ADINA Lidocaine (Lidocaine 4 % Patch Adh..Patch) 1 patch TRANSDERMA DAILY [facility]; Protocol Last Admin: 12/09/21 08:48 Dose: 1 patch Documented By: SUMAN Lidocaine (Lidocaine 4 % Patch Adh..Patch) 1 patch TRANSDERMA DAILY [facility]; Protocol Last Admin: 12/09/21 08:49 Dose: Not Given Documented By: SUMAN Non-Admin Reason: Patient Refused Loratadine (Loratadine 10 Mg Tablet) 10 mg PO DAILY [facility] Last Admin: 12/09/21 08:53 Dose: 10 mg Documented By: SUMAN Magnesium Hydroxide (Milk Of Magnesia 30 Ml Oral.Susp) 15 ml PO BEDTIME PRN PRN Reason: Constipation Last Admin: 11/30/21 19:34 Dose: 15 ml Documented By: ADINA Mineral Oil (Mineral Oil Enema 133 Ml Enema) 133 ml [place] ONCE PRN PRN Reason: constipation Nystatin (Nystatin Powder 15 Gm Bottle) 1 appl TOPICAL TID [facility]; Protocol Last Admin: 12/09/21 08:51 Dose: 1 appl Documented By: SUMAN Omeprazole (Omeprazole 20 Mg Capsule.) 20 mg PO BID@0630,1630 [facility] Last Admin: 12/09/21 05:37 Dose: 20 mg Documented By: ADINA Ondansetron HCl (Ondansetron Hcl 4 Mg/2 Ml Vial) 4 mg IVPUSH Q8H PRN PRN Reason: Nausea and Vomiting Pharmacy Consult (Consult Rx Perform Med Rec) 1 each MISCELLANE ONCE PRN PRN Reason: Consult order Polyethylene Glycol (Polyethylene Glycol 3350 17 Gm Powd.Pack) 17 gm PO DAILY [facility] Last Admin: 12/09/21 08:52 Dose: 17 gm Documented By: SUMAN Senna/Docusate Sodium (Sennosides/Docusate Sodium Tablet) 1 tab PO DAILY [facility] Last Admin: 12/09/21 08:55 Dose: Not Given Documented By: SUMAN Non-Admin Reason: Patient Refused Sodium Chloride (0.9 % Sodium Chloride Flush 3 Ml Syringe) 3 ml IVFLUSH QSHIFT [facility] Last Admin: 12/09/21 08:51 Dose: Not Given Documented By: SUMAN Non-Admin Reason: No Access Trazodone HCl (Trazodone Hcl 100 Mg Tablet) 200 mg PO BEDTIME PRN PRN Reason: Insomnia Last Admin: 12/08/21 20:03 Dose: 200 mg Documented By: ADINA Labs CBC & Chem 7: 12/02/21 08:28 12/03/21 05:56 Labs: Laboratory Results - last 24 hr 12/08/21 12/08/21 12/08/21 11:00 15:26 19:06 POC Glucose 135 H 198 H 194 H 12/09/21 07:15 POC Glucose 142 H Assessment and Plan (1) Constipation: Status: Acute (2) Morbid obesity: Status: Acute (3) Chronic respiratory failure with hypoxia: Status: Acute Plan 51 yo F who presented to ED with LE swelling, was awaiting STR placement but noted to have abd swelling and found to have hydronephrosis on abd CT that turns out to be chronic with decreased R kidney function Constipation multiple BMs documented, pt still reports hard stools continue bowel regimen Right hand swelling Neg for VTE chronic LE edema US negative for VTE; likely due to obesity, anemia, hypoalbuminemia, and likely R-sided HF IV furosemide changed to oral Lasix acute/chronic hypoxic resp failure likely OHS, COPD + asthma-overall better prn albuterol 1-2 liters nc at baseline chest/shoulder pain EKG normal and hs-Tn-I normal.? origin is MSK, likely shoulder impingement; continue lidocaine patch, PT/OT R hydronephrosis/proximal ureteral dilation Urology seen- no acute therapy indicated- chronic issue.? Lasix renogram showed diminished R renal function; normal on L.? outpt Uro f/u.? renal function stable. acute/chronic normocytic anemia likely anemia of CKD, improved s/p 1u pRBCs; normal iron studies/B12/FA H/H stable CKD3 Creatinine at baseline UTI treated with Ceftriaxone HTN continue amlodipine HLD continue atorvastatin L knee pain APAP for arthritis pain DM2 A1c 9.2, basal/bolus insulin hypothyroid TSH 20.29, increased LT4 200->250 mcg/d and repeat TSH in 6 wk mood disorder continue fluoxetine GERD PPI OUD Suboxone morbid obesity discussed importance of weight management as this is likely contributing to worsening of other comorbidities VTE ppx- UFH Continued hospitalization/dispo - seen by physical therapy; they recommend short-term rehab for optimal functional gains.? however, no STR beds are available in the state due to her weight + Suboxone use + Covid-19 unvaccinated status.? She declines Covid-19 vaccine due to pentecostal beliefs as a [employer]. ? CM broadening search.? PT and OT working with pt to gain ability to get up her stairs herself in which case she could go home with VNA at some point Quality Stroke Does the patient have a stroke diagnosis?: No VTE Prior VTE?: No VTE Risk Level:: Medical - moderate - high VTE Device Contraindication: Treatment Not Indicated VTE Drug Contraindication: N/A - Med Ordered
[2021-12-09 11:41] LABS: Glucose, Whole Blood 151 mg/dL (60-115)
[2021-12-09] MEDS: clonazePAM 0.5 MG TABLET PO (14:57)
[2021-12-09 16:53] LABS: Glucose, Whole Blood 119 mg/dL (60-115)
[2021-12-09 20:07] LABS: Glucose, Whole Blood 146 mg/dL (60-115)
[2021-12-09] MEDS: Atorvastatin Calcium 80 MG TABLET PO (20:22)
[2021-12-09] MEDS: traZODone HCL 100 MG TABLET 200 MG PO (20:22)
[2021-12-09] MEDS: Insulin Glargine,Hum.rec.anlog 100 UNIT/ML 10 ML VIAL 18 UNIT SUBCUT (20:23)
[2021-12-10] MEDS: Ibuprofen 400 MG TABLET PO ×2 (03:21→11:58)
[2021-12-10 03:35] VITALS: BP 140/68; PULSE 76; RESP 18; TEMP 36.1; O2SAT 95
[2021-12-10] MEDS: Heparin Sodium,Porcine 5,000 UNIT/ML VIAL 5000 UNIT SUBCUT ×3 (05:57→20:08)
[2021-12-10] MEDS: Levothyroxine Sodium 125 MCG TABLET 250 MCG PO (05:57)
[2021-12-10] MEDS: Omeprazole 20 MG CAPSULE.DR PO ×2 (05:57→17:07)
--- NOTE | 2021-12-10 06:53 | HO.PM.IMPN ---
Subjective Subjective Date of Service: 12/10/21 Review of Systems Follow up awaiting placement Physical Exam Vital Signs: Vital Signs: Last Vital Signs Temp 97 F 12/10/21 03:35 Pulse 76 12/10/21 03:35 Resp 18 12/10/21 03:35 BP 140/68 H 12/10/21 03:35 Pulse Ox 95 12/10/21 03:35 O2 Del Method 12/10/21 03:35 O2 Flow Rate 2 12/10/21 03:35 BMI result Body Mass Index 78.2 Appearing in no acute distress lung sounds are clear to auscultation heart regular rate rhythm, clear S1, S2 positive bowel sounds, abdomen is soft, nontender, obese neuro patient is alert x3, no focal deficits Objective Data Active Medications Acetaminophen (Acetaminophen 325 Mg Tablet) 650 mg PO Q6H PRN PRN Reason: Pain, Mild (Pain Scale 1-3) Last Admin: 12/09/21 00:37 Dose: 650 mg Documented By: ADINA Albuterol Sulfate (Albuterol Sulfate 90 Mcg 8 Gm Inhaler) 2 puff INHALE Q4H PRN PRN Reason: wheezing Amlodipine Besylate (Amlodipine Besylate 5 Mg Tablet) 5 mg PO DAILY [facility]; Protocol Last Admin: 12/09/21 08:54 Dose: 5 mg Documented By: SUMAN Aspirin (Aspirin Enteric Coated 81 Mg Tablet.) 81 mg PO DAILY [facility] Last Admin: 12/09/21 08:53 Dose: 81 mg Documented By: SUMAN Atorvastatin Calcium (Atorvastatin Calcium 80 Mg Tablet) 80 mg PO BEDTIME [facility] Last Admin: 12/09/21 20:22 Dose: 80 mg Documented By: ALEJANDRA Buprenorphine/Naloxone (Buprenorphine/Naloxone 8/2 Mg Film) 1 film SUBLINGUAL TID [facility] Last Admin: 12/09/21 20:22 Dose: 1 film Documented By: ALEJANDRA Clonazepam (Clonazepam 0.5 Mg Tablet) 0.5 mg PO DAILY PRN PRN Reason: anxiety Last Admin: 12/09/21 14:57 Dose: 0.5 mg Documented By: SUMAN Fluoxetine HCl (Fluoxetine Hcl 20 Mg Capsule) 60 mg PO DAILY [facility] Last Admin: 12/09/21 08:52 Dose: 60 mg Documented By: SUMAN Furosemide (Furosemide 40 Mg Tablet) 40 mg PO BID@0900,1800 [facility]; Protocol Last Admin: 12/09/21 17:20 Dose: 40 mg Documented By: SUMAN Gabapentin (Gabapentin 600 Mg Tablet) 600 mg PO TID [facility] Last Admin: 12/09/21 20:22 Dose: 600 mg Documented By: ALEJANDRA Heparin Sodium (Porcine) (Heparin Sodium,Porcine 5,000 Unit/Ml Vial) 5,000 unit SUBCUT Q8H [facility] Last Admin: 12/10/21 05:57 Dose: 5,000 unit Documented By: ALEJANDRA Ibuprofen (Ibuprofen 400 Mg Tablet) 400 mg PO Q6H PRN PRN Reason: moderate pain Last Admin: 12/10/21 03:21 Dose: 400 mg Documented By: ALEJANDRA Insulin Glargine (Insulin Glargine,Hum.Rec.Anlog 100 Unit/Ml 10 Ml Vial) 18 unit SUBCUT BEDTIME [facility] Last Admin: 12/09/21 20:23 Dose: 18 unit Documented By: ALEJANDRA Insulin Human Lispro (Insulin Lispro 100 Unit/Ml 3 Ml Vial) 0 unit SUBCUT QIDACHS [facility]; Protocol Last Admin: 12/09/21 21:21 Dose: Not Given Documented By: ALEJANDRA Non-Admin Reason: No Insulin Coverage Insulin Human Lispro (Insulin Lispro 100 Unit/Ml 3 Ml Vial) 5 unit SUBCUT QIDACHS [facility] Last Admin: 12/09/21 20:23 Dose: 5 unit Documented By: ALEJANDRA Levothyroxine Sodium (Levothyroxine Sodium 125 Mcg Tablet) 250 mcg PO DAILY@0630 [facility] Last Admin: 12/10/21 05:57 Dose: 250 mcg Documented By: ALEJANDRA Lidocaine (Lidocaine 4 % Patch Adh..Patch) 1 patch TRANSDERMA DAILY [facility]; Protocol Last Admin: 12/09/21 08:48 Dose: 1 patch Documented By: SUMAN Lidocaine (Lidocaine 4 % Patch Adh..Patch) 1 patch TRANSDERMA DAILY [facility]; Protocol Last Admin: 12/09/21 08:49 Dose: Not Given Documented By: SUMAN Non-Admin Reason: Patient Refused Loratadine (Loratadine 10 Mg Tablet) 10 mg PO DAILY [facility] Last Admin: 12/09/21 08:53 Dose: 10 mg Documented By: SUMAN Magnesium Hydroxide (Milk Of Magnesia 30 Ml Oral.Susp) 15 ml PO BEDTIME PRN PRN Reason: Constipation Last Admin: 11/30/21 19:34 Dose: 15 ml Documented By: ADINA Mineral Oil (Mineral Oil Enema 133 Ml Enema) 133 ml [place] ONCE PRN PRN Reason: constipation Nystatin (Nystatin Powder 15 Gm Bottle) 1 appl TOPICAL TID [facility]; Protocol Last Admin: 12/09/21 20:24 Dose: 1 appl Documented By: ALEJANDRA Omeprazole (Omeprazole 20 Mg Capsule.) 20 mg PO BID@0630,1630 [facility] Last Admin: 12/10/21 05:57 Dose: 20 mg Documented By: ALEJANDRA Ondansetron HCl (Ondansetron Hcl 4 Mg/2 Ml Vial) 4 mg IVPUSH Q8H PRN PRN Reason: Nausea and Vomiting Pharmacy Consult (Consult Rx Perform Med Rec) 1 each MISCELLANE ONCE PRN PRN Reason: Consult order Polyethylene Glycol (Polyethylene Glycol 3350 17 Gm Powd.Pack) 17 gm PO DAILY [facility] Last Admin: 12/09/21 08:52 Dose: 17 gm Documented By: SUMAN Senna/Docusate Sodium (Sennosides/Docusate Sodium Tablet) 1 tab PO DAILY [facility] Last Admin: 12/09/21 08:55 Dose: Not Given Documented By: SUMAN Non-Admin Reason: Patient Refused Sodium Chloride (0.9 % Sodium Chloride Flush 3 Ml Syringe) 3 ml IVFLUSH QSHIFT [facility] Last Admin: 12/10/21 00:11 Dose: Not Given Documented By: PHUC Non-Admin Reason: No Access Trazodone HCl (Trazodone Hcl 100 Mg Tablet) 200 mg PO BEDTIME PRN PRN Reason: Insomnia Last Admin: 12/09/21 20:22 Dose: 200 mg Documented By: ALEJANDRA Labs CBC & Chem 7: 12/02/21 08:28 12/03/21 05:56 Labs: Laboratory Results - last 24 hr 12/09/21 12/09/21 12/09/21 07:15 11:33 15:08 POC Glucose 142 H 151 H 119 H 12/09/21 19:05 POC Glucose 146 H Assessment and Plan (1) Constipation: Status: Acute (2) Morbid obesity: Status: Acute (3) Chronic respiratory failure with hypoxia: Status: Acute Plan 51 yo F who presented to ED with LE swelling, was awaiting STR placement but noted to have abd swelling and found to have hydronephrosis on abd CT that turns out to be chronic with decreased R kidney function Constipation multiple BMs documented, pt still reports hard stools continue bowel regimen Right hand swelling Neg for VTE chronic LE edema US negative for VTE; likely due to obesity, anemia, hypoalbuminemia, and likely R-sided HF IV furosemide changed to oral Lasix acute/chronic hypoxic resp failure likely OHS, COPD + asthma-overall better prn albuterol 1-2 liters nc at baseline chest/shoulder pain EKG normal and hs-Tn-I normal.? origin is MSK, likely shoulder impingement; continue lidocaine patch, PT/OT R hydronephrosis/proximal ureteral dilation Urology seen- no acute therapy indicated- chronic issue.? Lasix renogram showed diminished R renal function; normal on L.? outpt Uro f/u.? renal function stable. acute/chronic normocytic anemia likely anemia of CKD, improved s/p 1u pRBCs; normal iron studies/B12/FA H/H stable CKD3 Creatinine at baseline UTI treated with Ceftriaxone HTN continue amlodipine HLD continue atorvastatin L knee pain APAP for arthritis pain DM2 A1c 9.2, basal/bolus insulin hypothyroid TSH 20.29, increased LT4 200->250 mcg/d and repeat TSH in 6 wk mood disorder continue fluoxetine GERD PPI OUD Suboxone morbid obesity discussed importance of weight management as this is likely contributing to worsening of other comorbidities VTE ppx- UFH Continued hospitalization/dispo - seen by physical therapy; they recommend short-term rehab for optimal functional gains.? however, no STR beds are available in the state due to her weight + Suboxone use + Covid-19 unvaccinated status.? She declines Covid-19 vaccine due to sikhism beliefs as a [employer]. ? CM broadening search.? PT and OT working with pt to gain ability to get up her stairs herself in which case she could go home with VNA at some point Quality Stroke Does the patient have a stroke diagnosis?: No VTE Prior VTE?: No VTE Risk Level:: Medical - moderate - high VTE Device Contraindication: Treatment Not Indicated VTE Drug Contraindication: N/A - Med Ordered
[2021-12-10 07:18] VITALS: BP 132/72; PULSE 75; RESP 18; TEMP 36.6; O2SAT 96
[2021-12-10 07:26] LABS: Glucose, Whole Blood 237 mg/dL (60-115)
[2021-12-10] MEDS: Insulin Lispro 100 UNIT/ML 3 ML VIAL SUBCUT ×7 (08:20→20:08)
[2021-12-10] MEDS: FLUoxetine HCl 20 MG CAPSULE 60 MG PO (08:22)
[2021-12-10] MEDS: Gabapentin 600 MG TABLET PO ×3 (08:22→20:08)
[2021-12-10] MEDS: Buprenorphine/Naloxone 8/2 mg FILM 1 FILM SUBLINGUAL ×3 (08:22→20:08)
[2021-12-10] MEDS: Lidocaine 4 % Patch ADH..PATCH 1 PATCH TRANSDERMA ×2 (08:22→08:23)
[2021-12-10] MEDS: Aspirin Enteric Coated 81 MG TABLET.DR PO (08:23)
[2021-12-10] MEDS: polyethylene glycoL 3350 17 GM POWD.PACK PO (08:23)
[2021-12-10] MEDS: Furosemide 40 MG TABLET PO ×2 (08:23→17:07)
[2021-12-10] MEDS: Sennosides/Docusate Sodium TABLET 1 TAB PO (08:23)
[2021-12-10] MEDS: amLODIPine Besylate 5 MG TABLET PO (08:23)
[2021-12-10] MEDS: Loratadine 10 MG TABLET PO (08:23)
[2021-12-10] MEDS: Nystatin Powder 15 GM BOTTLE 1 APPL TOPICAL ×3 (08:24→20:15)
[2021-12-10 11:17] VITALS: BP 114/66; PULSE 69; RESP 18; TEMP 36.4; O2SAT 92
[2021-12-10 11:41] LABS: Glucose, Whole Blood 190 mg/dL (60-115)
[2021-12-10] MEDS: Acetaminophen 325 MG TABLET 650 MG PO (11:58)
--- NOTE | 2021-12-10 12:03 | PC.NURSE ---
pt visited by person she states is , approximately 1030. When entering the room around 1100 both pt and this person were asleep. Shortly after the visitor left the unit. Pt noted to be lethargic, eyes a little bloodshot, nodding off. Staff Auditor notified
[2021-12-10 15:43] VITALS: BP 104/57; PULSE 70; RESP 17; TEMP 36.2; O2SAT 96
[2021-12-10 16:16] LABS: Glucose, Whole Blood 151 mg/dL (60-115)
[2021-12-10 19:26] VITALS: BP 124/61; PULSE 75; RESP 17; TEMP 36.2; O2SAT 95
[2021-12-10 20:07] LABS: Glucose, Whole Blood 112 mg/dL (60-115)
[2021-12-10] MEDS: Insulin Glargine,Hum.rec.anlog 100 UNIT/ML 10 ML VIAL 18 UNIT SUBCUT (20:08)
[2021-12-10] MEDS: Atorvastatin Calcium 80 MG TABLET PO (20:08)
[2021-12-10] MEDS: traZODone HCL 100 MG TABLET 200 MG PO (20:12)
[2021-12-10] MEDS: clonazePAM 0.5 MG TABLET PO (20:12)
[2021-12-10 23:13] VITALS: BP 140/69; PULSE 76; RESP 14; TEMP 36; O2SAT 95
[2021-12-11] VITALS (7 sets, daily range): BP systolic 112–150; BP diastolic 57–84; PULSE 56–127; RESP 16–18; TEMP 36.1–36.6; O2SAT 92–98
[2021-12-11] MEDS: Heparin Sodium,Porcine 5,000 UNIT/ML VIAL 5000 UNIT SUBCUT ×3 (05:40→22:11)
[2021-12-11] MEDS: Levothyroxine Sodium 125 MCG TABLET 250 MCG PO (05:40)
[2021-12-11] MEDS: Omeprazole 20 MG CAPSULE.DR PO ×2 (05:40→17:00)
--- NOTE | 2021-12-11 07:01 | HO.PM.IMPN ---
Subjective Subjective Date of Service: 12/11/21 Review of Systems Follow up awaiting placement Physical Exam Vital Signs: Vital Signs: Last Vital Signs Temp 97.6 F 12/11/21 04:00 Pulse 80 12/11/21 04:00 Resp 16 12/11/21 04:00 BP 145/71 H 12/11/21 04:00 Pulse Ox 95 12/11/21 04:00 O2 Del Method 12/11/21 04:00 O2 Flow Rate 2.0 12/11/21 04:00 BMI result Body Mass Index 78.2 Appearing in no acute distress lung sounds are clear to auscultation heart regular rate rhythm, clear S1, S2 positive bowel sounds, abdomen is soft, nontender, obese neuro patient is alert x3, no focal deficits Objective Data Active Medications Acetaminophen (Acetaminophen 325 Mg Tablet) 650 mg PO Q6H PRN PRN Reason: Pain, Mild (Pain Scale 1-3) Last Admin: 12/10/21 11:58 Dose: 650 mg Documented By: ADONIS Albuterol Sulfate (Albuterol Sulfate 90 Mcg 8 Gm Inhaler) 2 puff INHALE Q4H PRN PRN Reason: wheezing Amlodipine Besylate (Amlodipine Besylate 5 Mg Tablet) 5 mg PO DAILY [facility]; Protocol Last Admin: 12/10/21 08:23 Dose: 5 mg Documented By: ADONIS Aspirin (Aspirin Enteric Coated 81 Mg Tablet.Dr) 81 mg PO DAILY [facility] Last Admin: 12/10/21 08:23 Dose: 81 mg Documented By: ADONIS Atorvastatin Calcium (Atorvastatin Calcium 80 Mg Tablet) 80 mg PO BEDTIME [facility] Last Admin: 12/10/21 20:08 Dose: 80 mg Documented By: GULSHAN Buprenorphine/Naloxone (Buprenorphine/Naloxone 8/2 Mg Film) 1 film SUBLINGUAL TID [facility] Last Admin: 12/10/21 20:08 Dose: 1 film Documented By: GULSHAN Clonazepam (Clonazepam 0.5 Mg Tablet) 0.5 mg PO DAILY PRN PRN Reason: anxiety Last Admin: 12/10/21 20:12 Dose: 0.5 mg Documented By: GULSHAN Fluoxetine HCl (Fluoxetine Hcl 20 Mg Capsule) 60 mg PO DAILY [facility] Last Admin: 12/10/21 08:22 Dose: 60 mg Documented By: ADONIS Furosemide (Furosemide 40 Mg Tablet) 40 mg PO BID@0900,1800 [facility]; Protocol Last Admin: 12/10/21 17:07 Dose: 40 mg Documented By: ADONIS Gabapentin (Gabapentin 600 Mg Tablet) 600 mg PO TID [facility] Last Admin: 12/10/21 20:08 Dose: 600 mg Documented By: GULSHAN Heparin Sodium (Porcine) (Heparin Sodium,Porcine 5,000 Unit/Ml Vial) 5,000 unit SUBCUT Q8H [facility] Last Admin: 12/11/21 05:40 Dose: 5,000 unit Documented By: GULSHAN Ibuprofen (Ibuprofen 400 Mg Tablet) 400 mg PO Q6H PRN PRN Reason: moderate pain Last Admin: 12/10/21 11:58 Dose: 400 mg Documented By: ADONIS Insulin Glargine (Insulin Glargine,Hum.Rec.Anlog 100 Unit/Ml 10 Ml Vial) 18 unit SUBCUT BEDTIME [facility] Last Admin: 12/10/21 20:08 Dose: 18 unit Documented By: GULSHAN Insulin Human Lispro (Insulin Lispro 100 Unit/Ml 3 Ml Vial) 0 unit SUBCUT QIDACHS [facility]; Protocol Last Admin: 12/10/21 20:09 Dose: Not Given Documented By: GULSHAN Non-Admin Reason: No Insulin Coverage Insulin Human Lispro (Insulin Lispro 100 Unit/Ml 3 Ml Vial) 5 unit SUBCUT QIDACHS [facility] Last Admin: 12/10/21 20:08 Dose: 5 unit Documented By: GULSHAN Levothyroxine Sodium (Levothyroxine Sodium 125 Mcg Tablet) 250 mcg PO DAILY@0630 [facility] Last Admin: 12/11/21 05:40 Dose: 250 mcg Documented By: GULSHAN Lidocaine (Lidocaine 4 % Patch Adh..Patch) 1 patch TRANSDERMA DAILY [facility]; Protocol Last Admin: 12/10/21 08:22 Dose: 1 patch Documented By: ADONIS Lidocaine (Lidocaine 4 % Patch Adh..Patch) 1 patch TRANSDERMA DAILY [facility]; Protocol Last Admin: 12/10/21 08:23 Dose: 1 patch Documented By: ADONIS Loratadine (Loratadine 10 Mg Tablet) 10 mg PO DAILY [facility] Last Admin: 12/10/21 08:23 Dose: 10 mg Documented By: ADONIS Magnesium Hydroxide (Milk Of Magnesia 30 Ml Oral.Susp) 15 ml PO BEDTIME PRN PRN Reason: Constipation Last Admin: 11/30/21 19:34 Dose: 15 ml Documented By: ADINA Mineral Oil (Mineral Oil Enema 133 Ml Enema) 133 ml [place] ONCE PRN PRN Reason: constipation Nystatin (Nystatin Powder 15 Gm Bottle) 1 appl TOPICAL TID [facility]; Protocol Last Admin: 12/10/21 20:15 Dose: 1 appl Documented By: GULSHAN Omeprazole (Omeprazole 20 Mg Capsule.Dr) 20 mg PO BID@0630,1630 [facility] Last Admin: 12/11/21 05:40 Dose: 20 mg Documented By: GULSHAN Ondansetron HCl (Ondansetron Hcl 4 Mg/2 Ml Vial) 4 mg IVPUSH Q8H PRN PRN Reason: Nausea and Vomiting Pharmacy Consult (Consult Rx Perform Med Rec) 1 each MISCELLANE ONCE PRN PRN Reason: Consult order Polyethylene Glycol (Polyethylene Glycol 3350 17 Gm Powd.Pack) 17 gm PO DAILY [facility] Last Admin: 12/10/21 08:23 Dose: 17 gm Documented By: ADONIS Senna/Docusate Sodium (Sennosides/Docusate Sodium Tablet) 1 tab PO DAILY [facility] Last Admin: 12/10/21 08:23 Dose: 1 tab Documented By: ADONIS Sodium Chloride (0.9 % Sodium Chloride Flush 3 Ml Syringe) 3 ml IVFLUSH QSHIFT [facility] Last Admin: 12/11/21 07:01 Dose: Not Given Documented By: ADONIS Non-Admin Reason: No Access Trazodone HCl (Trazodone Hcl 100 Mg Tablet) 200 mg PO BEDTIME PRN PRN Reason: Insomnia Last Admin: 12/10/21 20:12 Dose: 200 mg Documented By: GULSHAN Labs CBC & Chem 7: 12/02/21 08:28 12/03/21 05:56 Labs: Laboratory Results - last 24 hr 12/10/21 12/10/21 12/10/21 07:15 11:14 15:47 POC Glucose 237 H 190 H 151 H 12/10/21 19:29 POC Glucose 112 Assessment and Plan (1) Constipation: Status: Acute (2) Morbid obesity: Status: Acute (3) Chronic respiratory failure with hypoxia: Status: Acute Plan 51 yo F who presented to ED with LE swelling, was awaiting STR placement but noted to have abd swelling and found to have hydronephrosis on abd CT that turns out to be chronic with decreased R kidney function Constipation multiple BMs documented, pt still reports hard stools continue bowel regimen Right hand swelling Neg for VTE chronic LE edema US negative for VTE; likely due to obesity, anemia, hypoalbuminemia, and likely R-sided HF IV furosemide changed to oral Lasix acute/chronic hypoxic resp failure likely OHS, COPD + asthma-overall better prn albuterol 1-2 liters nc at baseline chest/shoulder pain EKG normal and hs-Tn-I normal.? origin is MSK, likely shoulder impingement; continue lidocaine patch, PT/OT R hydronephrosis/proximal ureteral dilation Urology seen- no acute therapy indicated- chronic issue.? Lasix renogram showed diminished R renal function; normal on L.? outpt Uro f/u.? renal function stable. acute/chronic normocytic anemia likely anemia of CKD, improved s/p 1u pRBCs; normal iron studies/B12/FA H/H stable CKD3 Creatinine at baseline UTI treated with Ceftriaxone HTN continue amlodipine HLD continue atorvastatin L knee pain APAP for arthritis pain DM2 A1c 9.2, basal/bolus insulin hypothyroid TSH 20.29, increased LT4 200->250 mcg/d and repeat TSH in 6 wk mood disorder continue fluoxetine GERD PPI OUD Suboxone morbid obesity discussed importance of weight management as this is likely contributing to worsening of other comorbidities VTE ppx- UFH Continued hospitalization/dispo - seen by physical therapy; they recommend short-term rehab for optimal functional gains.? however, no STR beds are available in the state due to her weight + Suboxone use + Covid-19 unvaccinated status.? She declines Covid-19 vaccine due to catholic beliefs as a [employer]omin[employer]. ? CM broadening search.? PT and OT working with pt to gain ability to get up her stairs herself in which case she could go home with VNA at some point Quality Stroke Does the patient have a stroke diagnosis?: No VTE Prior VTE?: No VTE Risk Level:: Medical - moderate - high VTE Device Contraindication: Treatment Not Indicated VTE Drug Contraindication: N/A - Med Ordered
[2021-12-11 07:34] LABS: Glucose, Whole Blood 203 mg/dL (60-115)
[2021-12-11] MEDS: Gabapentin 600 MG TABLET PO ×3 (08:04→21:45)
[2021-12-11] MEDS: FLUoxetine HCl 20 MG CAPSULE 60 MG PO (08:04)
[2021-12-11] MEDS: Loratadine 10 MG TABLET PO (08:04)
[2021-12-11] MEDS: Aspirin Enteric Coated 81 MG TABLET.DR PO (08:04)
[2021-12-11] MEDS: Furosemide 40 MG TABLET PO ×2 (08:04→17:00)
[2021-12-11] MEDS: amLODIPine Besylate 5 MG TABLET PO (08:04)
[2021-12-11] MEDS: Insulin Lispro 100 UNIT/ML 3 ML VIAL SUBCUT ×8 (08:04→21:44)
[2021-12-11] MEDS: Lidocaine 4 % Patch ADH..PATCH 1 PATCH TRANSDERMA (08:05)
[2021-12-11] MEDS: polyethylene glycoL 3350 17 GM POWD.PACK PO (08:06)
[2021-12-11] MEDS: Nystatin Powder 15 GM BOTTLE 1 APPL TOPICAL ×3 (08:06→22:12)
[2021-12-11] MEDS: Buprenorphine/Naloxone 8/2 mg FILM 1 FILM SUBLINGUAL ×3 (09:23→21:45)
[2021-12-11] MEDS: Acetaminophen 325 MG TABLET 650 MG PO (09:23)
[2021-12-11] MEDS: Ibuprofen 400 MG TABLET PO (09:23)
[2021-12-11 11:16] LABS: Glucose, Whole Blood 161 mg/dL (60-115)
[2021-12-11 16:41] LABS: Glucose, Whole Blood 198 mg/dL (60-115)
[2021-12-11 19:53] LABS: Glucose, Whole Blood 160 mg/dL (60-115)
[2021-12-11] MEDS: Insulin Glargine,Hum.rec.anlog 100 UNIT/ML 10 ML VIAL 18 UNIT SUBCUT (21:45)
[2021-12-11] MEDS: Atorvastatin Calcium 80 MG TABLET PO (21:45)
[2021-12-11] MEDS: traZODone HCL 100 MG TABLET 200 MG PO (23:49)
[2021-12-12 03:50] VITALS: BP 142/77; PULSE 75; RESP 17; TEMP 36.3; O2SAT 95
[2021-12-12] MEDS: Levothyroxine Sodium 125 MCG TABLET 250 MCG PO (06:39)
[2021-12-12] MEDS: Omeprazole 20 MG CAPSULE.DR PO ×2 (06:39→16:58)
[2021-12-12] MEDS: Heparin Sodium,Porcine 5,000 UNIT/ML VIAL 5000 UNIT SUBCUT ×2 (06:40→21:47)
[2021-12-12 06:58] VITALS: BP 134/69; PULSE 77; RESP 20; TEMP 36.4; O2SAT 94
[2021-12-12 07:31] LABS: Glucose, Whole Blood 145 mg/dL (60-115)
[2021-12-12] MEDS: Insulin Lispro 100 UNIT/ML 3 ML VIAL SUBCUT ×7 (08:14→21:50)
[2021-12-12] MEDS: FLUoxetine HCl 20 MG CAPSULE 60 MG PO (08:15)
[2021-12-12] MEDS: Aspirin Enteric Coated 81 MG TABLET.DR PO (08:16)
[2021-12-12] MEDS: Gabapentin 600 MG TABLET PO ×3 (08:16→21:47)
[2021-12-12] MEDS: amLODIPine Besylate 5 MG TABLET PO (08:16)
[2021-12-12] MEDS: Loratadine 10 MG TABLET PO (08:16)
[2021-12-12] MEDS: Furosemide 40 MG TABLET PO ×2 (08:16→16:59)
[2021-12-12] MEDS: clonazePAM 0.5 MG TABLET PO (08:16)
[2021-12-12] MEDS: Buprenorphine/Naloxone 8/2 mg FILM 1 FILM SUBLINGUAL ×3 (08:17→21:46)
[2021-12-12] MEDS: polyethylene glycoL 3350 17 GM POWD.PACK PO (08:17)
[2021-12-12] MEDS: Lidocaine 4 % Patch ADH..PATCH 1 PATCH TRANSDERMA (08:17)
[2021-12-12] MEDS: Nystatin Powder 15 GM BOTTLE 1 APPL TOPICAL ×2 (08:18→21:50)
[2021-12-12] MEDS: Acetaminophen 325 MG TABLET 650 MG PO (08:30)
[2021-12-12] MEDS: Ibuprofen 400 MG TABLET PO (08:31)
[2021-12-12 11:01] VITALS: BP 115/61; PULSE 74; RESP 18; TEMP 36.8; O2SAT 92
[2021-12-12 11:12] LABS: Glucose, Whole Blood 158 mg/dL (60-115)
--- NOTE | 2021-12-12 12:42 | MHC.CM.PN ---
EMR REVIEWED, CM SPOKE W/PT AND PURCHASING IN CM OFFICE, PER WENDI JANG IN PURCHASING SERIES B SHUTTLE CHAIR THAT IS BEING RENTED IS THE ONLY EQUIPMENT THAT HAS BEEN ORDERED, NO LIFT HAS BEEN ORDERED, WENDI WILL ARRANGE FOR CHAIR MEDICAL LAB SPECIALIST TO SEND SOMEONE IN TO EDUCATE PT ON USE OF CHAIR IN AM. CM WILL CONT TO FOLLOW.
--- NOTE | 2021-12-12 13:11 | HO.PM.IMPN ---
Subjective Subjective Date of Service: 12/12/21 Interval History: Seen and examined this morning Awaiting placement, no overnight events No specific complaints today Review of Systems Review of Systems: Yes all other systems are reviewed and are negative Constitutional Constitutional: Denies chills and Denies fever(s) Cardiovascular Cardiovascular: Denies chest pain and Denies dyspnea Respiratory Respiratory: Denies dyspnea Gastrointestinal Gastrointestinal: Denies nausea and Denies vomiting Physical Exam Vital Signs: Vital Signs: Last Vital Signs Temp 98.3 F 12/12/21 11:01 Pulse 74 12/12/21 11:01 Resp 18 12/12/21 11:01 BP 115/61 12/12/21 11:01 Pulse Ox 92 12/12/21 11:01 O2 Del Method 12/12/21 11:01 O2 Flow Rate 2 12/12/21 11:01 BMI result Body Mass Index 78.2 Const: Other: awake, a little sleepy this morning General: cooperative, comfortable, no acute distress, alert and awake Nutritional Appearance: obese Orientation/consciousness: patient oriented x3 HEENT: Head: Yes normal to inspection Face and sinus: Yes normal facial exam Mouth: Normal oral and palatal mucosa present and moist mucous membranes Neck: Neck: Yes normal visual inspection, Yes full ROM and Yes trachea midline Chest: Chest palpation & inspection: normal inspection of the chest Resp: Effort & Inspection: normal respiratory effort, able to speak in complete sentences and no respiratory distress Auscultation: diminished lung sounds Cardio: Rate: regular rate Rhythm: regular rhythm Heart sounds: S1 normal heart sound present and S2 normal heart sound present GI: Inspection: Yes normal to inspection, No distended and Yes obesity Palpation (GI): Soft to palpation and nontender Back/Spine/Pelvis: Cervical Spine: normal cervical lordosis Thoracic/Lumbar Spine: thoracic and lumbar spine normal to inspection Skin: General skin exam: no rashes or lesions noted Neuro: General: patient oriented x3 Extrem: Other: Bilateral lower extremity chronic venous stasis changes General: Yes normal to inspection, Yes capillary refill normal and Yes no pedal edema Objective Data Active Medications Acetaminophen (Acetaminophen 325 Mg Tablet) 650 mg PO Q6H PRN PRN Reason: Pain, Mild (Pain Scale 1-3) Last Admin: 12/12/21 08:30 Dose: 650 mg Documented By: KAITLYNN Albuterol Sulfate (Albuterol Sulfate 90 Mcg 8 Gm Inhaler) 2 puff INHALE Q4H PRN PRN Reason: wheezing Amlodipine Besylate (Amlodipine Besylate 5 Mg Tablet) 5 mg PO DAILY [facility]; Protocol Last Admin: 12/12/21 08:16 Dose: 5 mg Documented By: KAITLYNN Aspirin (Aspirin Enteric Coated 81 Mg Tablet.) 81 mg PO DAILY [facility] Last Admin: 12/12/21 08:16 Dose: 81 mg Documented By: KAITLYNN Atorvastatin Calcium (Atorvastatin Calcium 80 Mg Tablet) 80 mg PO BEDTIME [facility] Last Admin: 12/11/21 21:45 Dose: 80 mg Documented By: EMY Buprenorphine/Naloxone (Buprenorphine/Naloxone 8/2 Mg Film) 1 film SUBLINGUAL TID [facility] Last Admin: 12/12/21 08:17 Dose: 1 film Documented By: KAITLYNN Clonazepam (Clonazepam 0.5 Mg Tablet) 0.5 mg PO DAILY PRN PRN Reason: anxiety Last Admin: 12/12/21 08:16 Dose: 0.5 mg Documented By: KAITLYNN Fluoxetine HCl (Fluoxetine Hcl 20 Mg Capsule) 60 mg PO DAILY [facility] Last Admin: 12/12/21 08:15 Dose: 60 mg Documented By: KAITLYNN Furosemide (Furosemide 40 Mg Tablet) 40 mg PO BID@0900,1800 [facility]; Protocol Last Admin: 12/12/21 08:16 Dose: 40 mg Documented By: KAITLYNN Gabapentin (Gabapentin 600 Mg Tablet) 600 mg PO TID [facility] Last Admin: 12/12/21 08:16 Dose: 600 mg Documented By: KAITLYNN Heparin Sodium (Porcine) (Heparin Sodium,Porcine 5,000 Unit/Ml Vial) 5,000 unit SUBCUT Q8H [facility] Last Admin: 12/12/21 06:40 Dose: 5,000 unit Documented By: CHRIS Ibuprofen (Ibuprofen 400 Mg Tablet) 400 mg PO Q6H PRN PRN Reason: moderate pain Last Admin: 12/12/21 08:31 Dose: 400 mg Documented By: KAITLYNN Insulin Glargine (Insulin Glargine,Hum.Rec.Anlog 100 Unit/Ml 10 Ml Vial) 18 unit SUBCUT BEDTIME [facility] Last Admin: 12/11/21 21:45 Dose: 18 unit Documented By: EMY Insulin Human Lispro (Insulin Lispro 100 Unit/Ml 3 Ml Vial) 0 unit SUBCUT QIDACHS [facility]; Protocol Last Admin: 12/12/21 11:43 Dose: 2 unit Documented By: KAITLYNN Insulin Human Lispro (Insulin Lispro 100 Unit/Ml 3 Ml Vial) 5 unit SUBCUT QIDACHS [facility] Last Admin: 12/12/21 11:44 Dose: 5 unit Documented By: KAITLYNN Levothyroxine Sodium (Levothyroxine Sodium 125 Mcg Tablet) 250 mcg PO DAILY@0630 [facility] Last Admin: 12/12/21 06:39 Dose: 250 mcg Documented By: CHRIS Lidocaine (Lidocaine 4 % Patch Adh..Patch) 1 patch TRANSDERMA DAILY [facility]; Protocol Last Admin: 12/12/21 08:17 Dose: 1 patch Documented By: KAITLYNN Lidocaine (Lidocaine 4 % Patch Adh..Patch) 1 patch TRANSDERMA DAILY [facility]; Protocol Last Admin: 12/12/21 08:17 Dose: Not Given Documented By: KAITLYNN Non-Admin Reason: Patient Refused Loratadine (Loratadine 10 Mg Tablet) 10 mg PO DAILY [facility] Last Admin: 12/12/21 08:16 Dose: 10 mg Documented By: KAITLYNN Magnesium Hydroxide (Milk Of Magnesia 30 Ml Oral.Susp) 15 ml PO BEDTIME PRN PRN Reason: Constipation Last Admin: 11/30/21 19:34 Dose: 15 ml Documented By: ADINA Mineral Oil (Mineral Oil Enema 133 Ml Enema) 133 ml [place] ONCE PRN PRN Reason: constipation Nystatin (Nystatin Powder 15 Gm Bottle) 1 appl TOPICAL TID [facility]; Protocol Last Admin: 12/12/21 08:18 Dose: 1 appl Documented By: KAITLYNN Omeprazole (Omeprazole 20 Mg Capsule.) 20 mg PO BID@0630,1630 [facility] Last Admin: 12/12/21 06:39 Dose: 20 mg Documented By: CHRIS Ondansetron HCl (Ondansetron Hcl 4 Mg/2 Ml Vial) 4 mg IVPUSH Q8H PRN PRN Reason: Nausea and Vomiting Pharmacy Consult (Consult Rx Perform Med Rec) 1 each MISCELLANE ONCE PRN PRN Reason: Consult order Polyethylene Glycol (Polyethylene Glycol 3350 17 Gm Powd.Pack) 17 gm PO DAILY [facility] Last Admin: 12/12/21 08:17 Dose: 17 gm Documented By: KAITLYNN Senna/Docusate Sodium (Sennosides/Docusate Sodium Tablet) 1 tab PO DAILY [facility] Last Admin: 12/12/21 08:36 Dose: Not Given Documented By: KAITLYNN Non-Admin Reason: Patient Refused Sodium Chloride (0.9 % Sodium Chloride Flush 3 Ml Syringe) 3 ml IVFLUSH QSHIFT [facility] Last Admin: 12/12/21 08:18 Dose: Not Given Documented By: KAITLYNN Non-Admin Reason: No Access Trazodone HCl (Trazodone Hcl 100 Mg Tablet) 200 mg PO BEDTIME PRN PRN Reason: Insomnia Last Admin: 12/11/21 23:49 Dose: 200 mg Documented By: CHRIS Labs CBC & Chem 7: 12/02/21 08:28 12/03/21 05:56 Labs: Laboratory Results - last 24 hr 12/11/21 12/11/21 12/12/21 15:41 19:28 07:07 POC Glucose 198 H 160 H 145 H 12/12/21 11:05 POC Glucose 158 H Assessment and Plan (1) Constipation: Status: Acute Plan 51 yo F who presented to ED with LE swelling, was awaiting STR placement but noted to have abd swelling and found to have hydronephrosis on abd CT that turns out to be chronic with decreased R kidney function Constipation multiple BMs documented continue bowel regimen Right hand swelling Neg for VTE chronic LE edema US negative for VTE; likely due to obesity, anemia, hypoalbuminemia, and likely R-sided HF IV furosemide changed to oral Lasix acute/chronic hypoxic resp failure likely OHS, COPD + asthma-overall better prn albuterol 1-2 liters nc at baseline chest/shoulder pain EKG normal and hs-Tn-I normal.? origin is MSK, likely shoulder impingement; continue lidocaine patch, PT/OT R hydronephrosis/proximal ureteral dilation Urology seen- no acute therapy indicated- chronic issue.? Lasix renogram showed diminished R renal function; normal on L.? outpt Uro f/u.? renal function stable. acute/chronic normocytic anemia likely anemia of CKD, improved s/p 1u pRBCs; normal iron studies/B12/FA H/H stable CKD3 Creatinine at baseline UTI treated with Ceftriaxone HTN continue amlodipine HLD continue atorvastatin L knee pain APAP for arthritis pain DM2 A1c 9.2, basal/bolus insulin hypothyroid TSH 20.29, increased LT4 200->250 mcg/d and repeat TSH in 6 wk mood disorder continue fluoxetine GERD PPI OUD Suboxone morbid obesity discussed importance of weight management as this is likely contributing to worsening of other comorbidities Attending-Dr. Dolan VTE ppx- UFH Continued hospitalization/dispo - seen by physical therapy; they recommend short-term rehab for optimal functional gains.? however, no [facility] beds are available in the state due to her weight + Suboxone use + Covid-19 unvaccinated status.? She declines Covid-19 vaccine due to denominational beliefs as a Denomin[employer]. ? CM broadening search.? PT and OT working with pt to gain ability to get up her stairs herself in which case she could go home with VNA at some point Quality Stroke Does the patient have a stroke diagnosis?: No VTE Prior VTE?: No VTE Risk Level:: Medical - moderate - high VTE Device Contraindication: Treatment Not Indicated VTE Drug Contraindication: N/A - Med Ordered
--- NOTE | 2021-12-12 14:42 | MHC.CLN ---
F/U VISITED WITH PATIENT FOR FOLLOW UP ABOUT DESIRED WEIGHT LOSS. STATED THAT IS EATING ONLY FOODS SERVED HERE AND NOT EATING FOODS FROM OUTSIDE. REPORTED THAT DIET CHANGED TO LOW SODIUM OVER THE WEEKEND. LOW SODIUM APPROPRIATE DUE TO CKD STAGE 3 AND TAKES DIURETIC. DIET=DIABETIC 1800 KCALS, 2 GRAM SODIUM. REPORTS THAT ORDERS A LIMITED VARIETY OF FOODS AT MEALS. NO NEW WEIGHT FOR COMPARISON.
[2021-12-12 15:11] VITALS: BP 134/64; PULSE 75; RESP 18; TEMP 36.8; O2SAT 93
--- NOTE | 2021-12-12 15:32 | PC.NURSE ---
Patient with oozing from heparin injection site from 0530. Pressure dressing applied and 1330 heparin dose held. No other evidence of bleeding. Provider notified.
[2021-12-12 15:47] LABS: Glucose, Whole Blood 162 mg/dL (60-115)
[2021-12-12 19:23] VITALS: BP 132/72; PULSE 78; RESP 18; TEMP 37; O2SAT 94
[2021-12-12 20:10] LABS: Glucose, Whole Blood 193 mg/dL (60-115)
[2021-12-12] MEDS: Atorvastatin Calcium 80 MG TABLET PO (21:47)
[2021-12-12] MEDS: Insulin Glargine,Hum.rec.anlog 100 UNIT/ML 10 ML VIAL 18 UNIT SUBCUT (21:48)
[2021-12-12] MEDS: traZODone HCL 100 MG TABLET 200 MG PO (22:02)
[2021-12-12 23:27] VITALS: BP 136/73; PULSE 80; RESP 17; TEMP 36.5; O2SAT 94
[2021-12-13 04:00] VITALS: BP 159/78; PULSE 82; RESP 17; TEMP 36.4; O2SAT 96
[2021-12-13] MEDS: Omeprazole 20 MG CAPSULE.DR PO ×2 (05:52→17:05)
[2021-12-13] MEDS: Heparin Sodium,Porcine 5,000 UNIT/ML VIAL 5000 UNIT SUBCUT ×3 (05:52→21:39)
[2021-12-13] MEDS: Levothyroxine Sodium 125 MCG TABLET 250 MCG PO (05:52)
[2021-12-13 07:35] LABS: Glucose, Whole Blood 198 mg/dL (60-115)
[2021-12-13] MEDS: Insulin Lispro 100 UNIT/ML 3 ML VIAL SUBCUT ×7 (08:16→21:41)
[2021-12-13] MEDS: clonazePAM 0.5 MG TABLET PO (08:18)
[2021-12-13] MEDS: Gabapentin 600 MG TABLET PO ×3 (08:18→21:39)
[2021-12-13] MEDS: Loratadine 10 MG TABLET PO (08:18)
[2021-12-13] MEDS: FLUoxetine HCl 20 MG CAPSULE 60 MG PO (08:18)
[2021-12-13] MEDS: Furosemide 40 MG TABLET PO ×2 (08:18→17:05)
[2021-12-13] MEDS: amLODIPine Besylate 5 MG TABLET PO (08:18)
[2021-12-13] MEDS: Aspirin Enteric Coated 81 MG TABLET.DR PO (08:18)
[2021-12-13] MEDS: Lidocaine 4 % Patch ADH..PATCH 1 PATCH TRANSDERMA (08:19)
[2021-12-13] MEDS: Nystatin Powder 15 GM BOTTLE 1 APPL TOPICAL (08:19)
[2021-12-13] MEDS: Buprenorphine/Naloxone 8/2 mg FILM 1 FILM SUBLINGUAL ×3 (08:19→21:38)
[2021-12-13 10:42] VITALS: BP 159/78; PULSE 82; O2SAT 96
[2021-12-13 10:59] VITALS: BP 138/64; PULSE 77; RESP 18; TEMP 35.9; O2SAT 94
[2021-12-13 11:20] LABS: Glucose, Whole Blood 153 mg/dL (60-115)
--- NOTE | 2021-12-13 11:58 | HO.PM.IMPN ---
Subjective Subjective Date of Service: 12/13/21 Interval History: the patient was seen and evaluated this morning Laying in bed, feels comfortable overall Complaining of pain in her knees and inability to stand up on them No reported other overnight events. Systemic review: No fever, chills or weakness No chest pain, palpitation No shortness of breath or coughing No abdominal pain, nausea or vomiting No urinary symptoms Joint pain in her knees Lower extremity chronic rash Physical Exam Vital Signs: Vital Signs: Last Vital Signs Temp 96.7 F L 12/13/21 10:59 Pulse 77 12/13/21 10:59 Resp 18 12/13/21 10:59 BP 138/64 12/13/21 10:59 Pulse Ox 94 12/13/21 10:59 O2 Del Method 12/13/21 10:59 O2 Flow Rate 2 12/13/21 04:00 BMI result Body Mass Index 78.2 Const: Other: Constitutional : Morbidly obese, interactive, not in distress Neck : Normal inspection, Supple Cardiovascular : RRR, no JVP, trace bilateral lower extremity edema Respiratory : fair bilateral air entry, basal fine crackles, wheezes or rhonchi, oxygen supplement Gastrointestinal: soft, lax, Normal bowel sounds, Non tender Skin : Warm, Dry, bilateral chronic stasis dermatitis changes Neurological : Alert & oriented x3, No focal deficit , CN 2-12 within normal Objective Data Active Medications Acetaminophen (Acetaminophen 325 Mg Tablet) 650 mg PO Q6H PRN PRN Reason: Pain, Mild (Pain Scale 1-3) Last Admin: 12/12/21 08:30 Dose: 650 mg Documented By: KAITLYNN Albuterol Sulfate (Albuterol Sulfate 90 Mcg 8 Gm Inhaler) 2 puff INHALE Q4H PRN PRN Reason: wheezing Amlodipine Besylate (Amlodipine Besylate 5 Mg Tablet) 5 mg PO DAILY [facility]; Protocol Last Admin: 12/13/21 08:18 Dose: 5 mg Documented By: KAITLYNN Aspirin (Aspirin Enteric Coated 81 Mg Tablet.) 81 mg PO DAILY [facility] Last Admin: 12/13/21 08:18 Dose: 81 mg Documented By: KAITLYNN Atorvastatin Calcium (Atorvastatin Calcium 80 Mg Tablet) 80 mg PO BEDTIME [facility] Last Admin: 12/12/21 21:47 Dose: 80 mg Documented By: ZULEIKA Buprenorphine/Naloxone (Buprenorphine/Naloxone 8/2 Mg Film) 1 film SUBLINGUAL TID [facility] Last Admin: 12/13/21 08:19 Dose: 1 film Documented By: KAITLYNN Clonazepam (Clonazepam 0.5 Mg Tablet) 0.5 mg PO DAILY PRN PRN Reason: anxiety Last Admin: 12/13/21 08:18 Dose: 0.5 mg Documented By: KAITLYNN Fluoxetine HCl (Fluoxetine Hcl 20 Mg Capsule) 60 mg PO DAILY [facility] Last Admin: 12/13/21 08:18 Dose: 60 mg Documented By: KAITLYNN Furosemide (Furosemide 40 Mg Tablet) 40 mg PO BID@0900,1800 [facility]; Protocol Last Admin: 12/13/21 08:18 Dose: 40 mg Documented By: KAITLYNN Gabapentin (Gabapentin 600 Mg Tablet) 600 mg PO TID [facility] Last Admin: 12/13/21 08:18 Dose: 600 mg Documented By: KAITLYNN Heparin Sodium (Porcine) (Heparin Sodium,Porcine 5,000 Unit/Ml Vial) 5,000 unit SUBCUT Q8H [facility] Last Admin: 12/13/21 05:52 Dose: 5,000 unit Documented By: CHRIS Ibuprofen (Ibuprofen 400 Mg Tablet) 400 mg PO Q6H PRN PRN Reason: moderate pain Last Admin: 12/12/21 08:31 Dose: 400 mg Documented By: KAITLYNN Insulin Glargine (Insulin Glargine,Hum.Rec.Anlog 100 Unit/Ml 10 Ml Vial) 18 unit SUBCUT BEDTIME [facility] Last Admin: 12/12/21 21:48 Dose: 18 unit Documented By: ZULEIKA Insulin Human Lispro (Insulin Lispro 100 Unit/Ml 3 Ml Vial) 0 unit SUBCUT QIDACHS [facility]; Protocol Last Admin: 12/13/21 08:16 Dose: 2 unit Documented By: KAITLYNN Insulin Human Lispro (Insulin Lispro 100 Unit/Ml 3 Ml Vial) 5 unit SUBCUT QIDACHS [facility] Last Admin: 12/13/21 08:16 Dose: 5 unit Documented By: KAITLNYN Levothyroxine Sodium (Levothyroxine Sodium 125 Mcg Tablet) 250 mcg PO DAILY@0630 [facility] Last Admin: 12/13/21 05:52 Dose: 250 mcg Documented By: CHRIS Lidocaine (Lidocaine 4 % Patch Adh..Patch) 1 patch TRANSDERMA DAILY [facility]; Protocol Last Admin: 12/13/21 08:19 Dose: 1 patch Documented By: KAITLYNN Lidocaine (Lidocaine 4 % Patch Adh..Patch) 1 patch TRANSDERMA DAILY [facility]; Protocol Last Admin: 12/13/21 08:19 Dose: Not Given Documented By: KAITLYNN Non-Admin Reason: Patient Refused Loratadine (Loratadine 10 Mg Tablet) 10 mg PO DAILY [facility] Last Admin: 12/13/21 08:18 Dose: 10 mg Documented By: KAITLYNN Magnesium Hydroxide (Milk Of Magnesia 30 Ml Oral.Susp) 15 ml PO BEDTIME PRN PRN Reason: Constipation Last Admin: 11/30/21 19:34 Dose: 15 ml Documented By: ADINA Mineral Oil (Mineral Oil Enema 133 Ml Enema) 133 ml [place] ONCE PRN PRN Reason: constipation Nystatin (Nystatin Powder 15 Gm Bottle) 1 appl TOPICAL TID [facility]; Protocol Last Admin: 12/13/21 08:19 Dose: 1 appl Documented By: KAITLYNN Omeprazole (Omeprazole 20 Mg Capsule.Dr) 20 mg PO BID@0630,1630 [facility] Last Admin: 12/13/21 05:52 Dose: 20 mg Documented By: CHRIS Ondansetron HCl (Ondansetron Hcl 4 Mg/2 Ml Vial) 4 mg IVPUSH Q8H PRN PRN Reason: Nausea and Vomiting Pharmacy Consult (Consult Rx Perform Med Rec) 1 each MISCELLANE ONCE PRN PRN Reason: Consult order Polyethylene Glycol (Polyethylene Glycol 3350 17 Gm Powd.Pack) 17 gm PO DAILY [facility] Last Admin: 12/13/21 08:25 Dose: Not Given Documented By: KAITLYNN Non-Admin Reason: Patient Refused Senna/Docusate Sodium (Sennosides/Docusate Sodium Tablet) 1 tab PO DAILY [facility] Last Admin: 12/13/21 08:25 Dose: Not Given Documented By: KAITLYNN Non-Admin Reason: Patient Refused Sodium Chloride (0.9 % Sodium Chloride Flush 3 Ml Syringe) 3 ml IVFLUSH QSHIFT [facility] Last Admin: 12/13/21 08:19 Dose: Not Given Documented By: KAITLYNN Non-Admin Reason: No Access Trazodone HCl (Trazodone Hcl 100 Mg Tablet) 200 mg PO BEDTIME PRN PRN Reason: Insomnia Last Admin: 12/12/21 22:02 Dose: 200 mg Documented By: ZULEIKA Labs CBC & Chem 7: 12/02/21 08:28 12/03/21 05:56 Labs: Laboratory Results - last 24 hr 12/12/21 12/12/21 12/13/21 15:13 19:25 07:29 POC Glucose 162 H 193 H 198 H 12/13/21 11:04 POC Glucose 153 H Assessment and Plan (1) Chronic respiratory failure with hypoxia: Status: Acute (2) Bilateral edema of lower extremity: Status: Acute Plan 51 yo F who presented to ED with LE swelling, was awaiting STR placement but noted to have abd swelling and found to have hydronephrosis on abd CT that turns out to be chronic with decreased R kidney function Physical deconditioning Patient unable to ambulate or even stand up at this point from prolonged hospital stay and deconditioning Physical therapy, nursing staff are following with her with a plan to keep ambulating her and trying to get her up on her feet in order to place her to SNF or to go back home if she is able to climb the stairs. Constipation multiple BMs documented continue bowel regimen Right hand swelling Neg for VTE chronic LE edema US negative for VTE; likely due to obesity, anemia, hypoalbuminemia, and likely R-sided HF IV furosemide changed to oral Lasix acute/chronic hypoxic resp failure likely OHS, COPD + asthma-overall better prn albuterol 1-2 liters nc at baseline chest/shoulder pain EKG normal and hs-Tn-I normal.? origin is MSK, likely shoulder impingement; continue lidocaine patch, PT/OT R hydronephrosis/proximal ureteral dilation Urology seen- no acute therapy indicated- chronic issue.? Lasix renogram showed diminished R renal function; normal on L.? outpt Uro f/u.? renal function stable. acute/chronic normocytic anemia likely anemia of CKD, improved s/p 1u pRBCs; normal iron studies/B12/FA H/H stable CKD3 Creatinine at baseline UTI treated with Ceftriaxone HTN continue amlodipine HLD continue atorvastatin L knee pain APAP for arthritis pain DM2 A1c 9.2, basal/bolus insulin hypothyroid TSH 20.29, increased LT4 200->250 mcg/d and repeat TSH in 6 wk mood disorder continue fluoxetine GERD PPI OUD Suboxone morbid obesity discussed importance of weight management as this is likely contributing to worsening of other comorbidities VTE ppx- UFH Continued hospitalization/dispo - seen by physical therapy; they recommend short-term rehab for optimal functional gains.? however, no STR beds are available in the state due to her weight + Suboxone use + Covid-19 unvaccinated status.? She declines Covid-19 vaccine due to spiritism beliefs as a [employer]. ? CM broadening search.? PT and OT working with pt to gain ability to get up her stairs herself in which case she could go home with VNA at some point Quality Stroke Does the patient have a stroke diagnosis?: No VTE Prior VTE?: No VTE Risk Level:: Medical - moderate - high VTE Device Contraindication: Treatment Not Indicated VTE Drug Contraindication: N/A - Med Ordered
[2021-12-13] MEDS: Acetaminophen 325 MG TABLET 650 MG PO (12:31)
[2021-12-13] MEDS: Ibuprofen 400 MG TABLET PO (12:31)
[2021-12-13 15:58] VITALS: BP 135/73; PULSE 70; RESP 18; TEMP 35.8; O2SAT 96
[2021-12-13 16:15] LABS: Glucose, Whole Blood 156 mg/dL (60-115)
[2021-12-13 19:26] VITALS: BP 123/67; PULSE 72; RESP 18; TEMP 36.1; O2SAT 97
[2021-12-13 19:33] LABS: Glucose, Whole Blood 144 mg/dL (60-115)
[2021-12-13] MEDS: Atorvastatin Calcium 80 MG TABLET PO (21:39)
[2021-12-13] MEDS: Insulin Glargine,Hum.rec.anlog 100 UNIT/ML 10 ML VIAL 18 UNIT SUBCUT (21:40)
[2021-12-13] MEDS: traZODone HCL 100 MG TABLET 200 MG PO (21:56)
[2021-12-13 23:29] VITALS: BP 114/68; PULSE 71; RESP 17; TEMP 36.4; O2SAT 95
[2021-12-14 04:00] VITALS: RESP 18
[2021-12-14] MEDS: Levothyroxine Sodium 125 MCG TABLET 250 MCG PO (05:50)
[2021-12-14] MEDS: Omeprazole 20 MG CAPSULE.DR PO ×2 (05:51→17:09)
[2021-12-14] MEDS: Heparin Sodium,Porcine 5,000 UNIT/ML VIAL 5000 UNIT SUBCUT ×3 (05:51→20:53)
[2021-12-14 07:35] LABS: Glucose, Whole Blood 149 mg/dL (60-115)
[2021-12-14] MEDS: Acetaminophen 325 MG TABLET 650 MG PO (08:33)
[2021-12-14] MEDS: Insulin Lispro 100 UNIT/ML 3 ML VIAL SUBCUT ×6 (08:33→20:55)
[2021-12-14] MEDS: Lidocaine 4 % Patch ADH..PATCH 1 PATCH TRANSDERMA (08:34)
[2021-12-14] MEDS: clonazePAM 0.5 MG TABLET PO (08:34)
[2021-12-14] MEDS: Ibuprofen 400 MG TABLET PO (08:34)
[2021-12-14] MEDS: Gabapentin 600 MG TABLET PO ×3 (08:34→20:56)
[2021-12-14] MEDS: amLODIPine Besylate 5 MG TABLET PO (08:34)
[2021-12-14] MEDS: FLUoxetine HCl 20 MG CAPSULE 60 MG PO (08:34)
[2021-12-14] MEDS: Furosemide 40 MG TABLET PO ×2 (08:34→17:09)
[2021-12-14] MEDS: Loratadine 10 MG TABLET PO (08:34)
[2021-12-14] MEDS: Buprenorphine/Naloxone 8/2 mg FILM 1 FILM SUBLINGUAL ×3 (08:34→20:56)
[2021-12-14] MEDS: Aspirin Enteric Coated 81 MG TABLET.DR PO (08:34)
[2021-12-14] MEDS: Nystatin Powder 15 GM BOTTLE 1 APPL TOPICAL ×3 (08:35→20:56)
[2021-12-14 11:38] LABS: Glucose, Whole Blood 144 mg/dL (60-115)
[2021-12-14 12:00] VITALS: BP 132/70; PULSE 77; RESP 18; TEMP 36.1; O2SAT 98
--- NOTE | 2021-12-14 13:07 | P.PNIM_ITS ---
Subjective Subjective Date of Service: 12/14/21 Interval History: Laying in bed, feels comfortable overall Complaining of pain in her knees Able to stand up with help yesterday and sitting in the chair No reported other overnight events. Systemic review: No fever, chills or weakness No chest pain, palpitation No shortness of breath or coughing No abdominal pain, nausea or vomiting No urinary symptoms Joint pain in her knees Lower extremity chronic rash Physical Exam Vital Signs: Vital Signs: Last Vital Signs Temp 97 F 12/14/21 12:00 Pulse 77 12/14/21 12:00 Resp 18 12/14/21 12:00 BP 132/70 12/14/21 12:00 Pulse Ox 98 12/14/21 12:00 O2 Del Method 12/14/21 12:00 O2 Flow Rate 2 12/13/21 23:29 BMI result Body Mass Index 78.2 Const: Other: Constitutional : Morbidly obese, interactive, not in distress Neck : Normal inspection, Supple Cardiovascular : RRR, no JVP, trace bilateral lower extremity edema Respiratory : fair bilateral air entry, basal fine crackles, wheezes or rhonchi, oxygen supplement Gastrointestinal: soft, lax, Normal bowel sounds, Non tender Skin : Warm, Dry, bilateral chronic stasis dermatitis changes Neurological : Alert & oriented x3, No focal deficit , CN 2-12 within normal Objective Data Active Medications Acetaminophen (Acetaminophen 325 Mg Tablet) 650 mg PO Q6H PRN PRN Reason: Pain, Mild (Pain Scale 1-3) Last Admin: 12/14/21 08:33 Dose: 650 mg Documented By: KAITLYNN Albuterol Sulfate (Albuterol Sulfate 90 Mcg 8 Gm Inhaler) 2 puff INHALE Q4H PRN PRN Reason: wheezing Amlodipine Besylate (Amlodipine Besylate 5 Mg Tablet) 5 mg PO DAILY [facility]; Protocol Last Admin: 12/14/21 08:34 Dose: 5 mg Documented By: KAITLYNN Aspirin (Aspirin Enteric Coated 81 Mg Tablet.) 81 mg PO DAILY [facility] Last Admin: 12/14/21 08:34 Dose: 81 mg Documented By: KAITLYNN Atorvastatin Calcium (Atorvastatin Calcium 80 Mg Tablet) 80 mg PO BEDTIME [facility] Last Admin: 12/13/21 21:39 Dose: 80 mg Documented By: ZULEIKA Buprenorphine/Naloxone (Buprenorphine/Naloxone 8/2 Mg Film) 1 film SUBLINGUAL TID [facility] Last Admin: 12/14/21 08:34 Dose: 1 film Documented By: KAITLYNN Fluoxetine HCl (Fluoxetine Hcl 20 Mg Capsule) 60 mg PO DAILY [facility] Last Admin: 12/14/21 08:34 Dose: 60 mg Documented By: KAITLYNN Furosemide (Furosemide 40 Mg Tablet) 40 mg PO BID@0900,1800 [facility]; Protocol Last Admin: 12/14/21 08:34 Dose: 40 mg Documented By: KAITLYNN Gabapentin (Gabapentin 600 Mg Tablet) 600 mg PO TID [facility] Last Admin: 12/14/21 08:34 Dose: 600 mg Documented By: KAITLYNN Heparin Sodium (Porcine) (Heparin Sodium,Porcine 5,000 Unit/Ml Vial) 5,000 unit SUBCUT Q8H [facility] Last Admin: 12/14/21 05:51 Dose: 5,000 unit Documented By: CHRIS Ibuprofen (Ibuprofen 400 Mg Tablet) 400 mg PO Q6H PRN PRN Reason: moderate pain Last Admin: 12/14/21 08:34 Dose: 400 mg Documented By: KAITLYNN Insulin Glargine (Insulin Glargine,Hum.Rec.Anlog 100 Unit/Ml 10 Ml Vial) 18 unit SUBCUT BEDTIME [facility] Last Admin: 12/13/21 21:40 Dose: 18 unit Documented By: ZULEIKA Insulin Human Lispro (Insulin Lispro 100 Unit/Ml 3 Ml Vial) 0 unit SUBCUT QIDACHS [facility]; Protocol Last Admin: 12/14/21 12:09 Dose: Not Given Documented By: KAITLYNN Non-Admin Reason: No Insulin Coverage Insulin Human Lispro (Insulin Lispro 100 Unit/Ml 3 Ml Vial) 5 unit SUBCUT QIDACHS [facility] Last Admin: 12/14/21 12:10 Dose: 5 unit Documented By: KAITLYNN Levothyroxine Sodium (Levothyroxine Sodium 125 Mcg Tablet) 250 mcg PO DAILY@0630 [facility] Last Admin: 12/14/21 05:50 Dose: 250 mcg Documented By: CHRIS Lidocaine (Lidocaine 4 % Patch Adh..Patch) 1 patch TRANSDERMA DAILY [facility]; Protocol Last Admin: 12/14/21 08:34 Dose: 1 patch Documented By: KAITLYNN Lidocaine (Lidocaine 4 % Patch Adh..Patch) 1 patch TRANSDERMA DAILY [facility]; Protocol Last Admin: 12/14/21 08:35 Dose: Not Given Documented By: KAITLYNN Non-Admin Reason: Patient Refused Loratadine (Loratadine 10 Mg Tablet) 10 mg PO DAILY [facility] Last Admin: 12/14/21 08:34 Dose: 10 mg Documented By: KAITLYNN Magnesium Hydroxide (Milk Of Magnesia 30 Ml Oral.Susp) 15 ml PO BEDTIME PRN PRN Reason: Constipation Last Admin: 11/30/21 19:34 Dose: 15 ml Documented By: ADINA Mineral Oil (Mineral Oil Enema 133 Ml Enema) 133 ml [place] ONCE PRN PRN Reason: constipation Nystatin (Nystatin Powder 15 Gm Bottle) 1 appl TOPICAL TID [facility]; Protocol Last Admin: 12/14/21 08:35 Dose: 1 appl Documented By: KAITLYNN Omeprazole (Omeprazole 20 Mg Capsule.Dr) 20 mg PO BID@0630,1630 [facility] Last Admin: 12/14/21 05:51 Dose: 20 mg Documented By: CHRIS Ondansetron HCl (Ondansetron Hcl 4 Mg/2 Ml Vial) 4 mg IVPUSH Q8H PRN PRN Reason: Nausea and Vomiting Pharmacy Consult (Consult Rx Perform Med Rec) 1 each MISCELLANE ONCE PRN PRN Reason: Consult order Polyethylene Glycol (Polyethylene Glycol 3350 17 Gm Powd.Pack) 17 gm PO DAILY [facility] Last Admin: 12/14/21 09:10 Dose: Not Given Documented By: KAITLYNN Non-Admin Reason: Patient Refused Senna/Docusate Sodium (Sennosides/Docusate Sodium Tablet) 1 tab PO DAILY [facility] Last Admin: 12/14/21 09:10 Dose: Not Given Documented By: KAITLYNN Non-Admin Reason: Patient Refused Sodium Chloride (0.9 % Sodium Chloride Flush 3 Ml Syringe) 3 ml IVFLUSH QSHIFT [facility] Last Admin: 12/14/21 08:35 Dose: Not Given Documented By: KAITLYNN Non-Admin Reason: No Access Trazodone HCl (Trazodone Hcl 100 Mg Tablet) 200 mg PO BEDTIME PRN PRN Reason: Insomnia Last Admin: 12/13/21 21:56 Dose: 200 mg Documented By: RUKHSANAIT Labs CBC & Chem 7: 12/02/21 08:28 12/03/21 05:56 Labs: Laboratory Results - last 24 hr 12/13/21 12/13/21 12/14/21 16:02 19:28 07:27 POC Glucose 156 H 144 H 149 H 12/14/21 11:31 POC Glucose 144 H Microbiology Microbiology Results: Microbiology 11/12/21 18:03 Blood Fungal Culture - Final Blood - Venous Assessment and Plan (1) Physical deconditioning: Status: Acute (2) Morbid obesity: Status: Acute (3) Chronic respiratory failure with hypoxia: Status: Acute Plan 51 yo F who presented to ED with LE swelling, was awaiting STR placement but noted to have abd swelling and found to have hydronephrosis on abd CT that turns out to be chronic with decreased R kidney function Physical deconditioning Patient unable to ambulate or even stand up at this point from prolonged hospital stay and deconditioning Physical therapy, nursing staff are following with her with a plan to keep ambulating her and trying to get her up on her feet in order to place her to SNF or to go back home if she is able to climb the stairs. Constipation multiple BMs documented continue bowel regimen Right hand swelling Neg for VTE chronic LE edema US negative for VTE; likely due to obesity, anemia, hypoalbuminemia, and likely R-sided HF IV furosemide changed to oral Lasix acute/chronic hypoxic resp failure likely OHS, COPD + asthma-overall better prn albuterol 1-2 liters nc at baseline chest/shoulder pain EKG normal and hs-Tn-I normal.? origin is MSK, likely shoulder impingement; continue lidocaine patch, PT/OT R hydronephrosis/proximal ureteral dilation Urology seen- no acute therapy indicated- chronic issue.? Lasix renogram showed diminished R renal function; normal on L.? outpt Uro f/u.? renal function stable. acute/chronic normocytic anemia likely anemia of CKD, improved s/p 1u pRBCs; normal iron studies/B12/FA H/H stable CKD3 Creatinine at baseline UTI treated with Ceftriaxone HTN continue amlodipine HLD continue atorvastatin L knee pain APAP for arthritis pain DM2 A1c 9.2, basal/bolus insulin hypothyroid TSH 20.29, increased LT4 200->250 mcg/d and repeat TSH in 6 wk mood disorder continue fluoxetine GERD PPI OUD Suboxone morbid obesity discussed importance of weight management as this is likely contributing to worsening of other comorbidities VTE ppx- UFH Continued hospitalization/dispo - seen by physical therapy; they recommend short-term rehab for optimal functional gains.? however, no STR beds are available in the state due to her weight + Suboxone use + Covid-19 unvaccinated status.? She declines Covid-19 vaccine due to buddhist beliefs as a [employer]. ? CM broadening search.? PT and OT working with pt to gain ability to get up her stairs herself in which case she could go home with VNA at some point Quality Stroke Does the patient have a stroke diagnosis?: No VTE Prior VTE?: No VTE Risk Level:: Medical - moderate - high VTE Device Contraindication: Treatment Not Indicated VTE Drug Contraindication: N/A - Med Ordered
[2021-12-14 15:35] VITALS: BP 143/71; PULSE 73; RESP 18; TEMP 36.1; O2SAT 94
[2021-12-14 16:12] LABS: Glucose, Whole Blood 167 mg/dL (60-115)
--- NOTE | 2021-12-14 16:30 | MHC.CM.PN ---
EMR REVIEWED, PT REMAINS MEDICALLY CLEARED FOR D/C, CM MET W/PT AT BEDSIDE WHILE ON PHONE W/SENIOR COMPLIANCE ANALYST/BF AND ASKED HIM TO SEND A MESSAGE TO HER HEALTH [employer]TER TO CONTACT CM, CONTACT INFO PROVIDED, PT APPEARS SMILING AND IN GOOD SPIRITS, REPORTS SHE IS VERY HAPPY W/NEW CHAIR AND DOING WELL, HOWEVER CHAIR CAN NOT SAFELY STAND PT, PT IS TAKING TYLENOL/IBUPROFEN FOR KNEE PAIN, NO BED OFFERS AT THIS TIME, CM WILL CONT TO FOLLOW.
[2021-12-14 19:18] VITALS: BP 139/71; PULSE 80; RESP 18; TEMP 35.8; O2SAT 96
[2021-12-14 20:07] LABS: Glucose, Whole Blood 182 mg/dL (60-115)
[2021-12-14] MEDS: Insulin Glargine,Hum.rec.anlog 100 UNIT/ML 10 ML VIAL 18 UNIT SUBCUT (20:54)
[2021-12-14] MEDS: Atorvastatin Calcium 80 MG TABLET PO (20:56)
[2021-12-14] MEDS: traZODone HCL 100 MG TABLET 200 MG PO (21:05)
[2021-12-14 23:32] VITALS: BP 120/56; PULSE 77; RESP 18; TEMP 36.3; O2SAT 95
[2021-12-15 03:31] VITALS: BP 140/60; PULSE 76; RESP 18; TEMP 36.6; O2SAT 96
[2021-12-15] MEDS: Heparin Sodium,Porcine 5,000 UNIT/ML VIAL 5000 UNIT SUBCUT ×3 (05:21→20:07)
[2021-12-15] MEDS: Omeprazole 20 MG CAPSULE.DR PO ×2 (05:30→17:00)
[2021-12-15] MEDS: Levothyroxine Sodium 125 MCG TABLET 250 MCG PO (05:30)
[2021-12-15 05:59] LABS: Hematocrit 29.5 % (37.0-47.0); Hemoglobin 8.6 g/dl (12.0-16.0); Mean Corpuscular HGB Conc 29.2 g/dl (31.0-35.0); Mean Corpuscular Hemoglobin 24.9 pg (27.0-33.0); Mean Corpuscular Volume 85.5 fL (80.0-98.0); Mean Platelet Volume 10.5 fL (9.4-12.3); Platelet Count 226 X10*3/uL (160-400); Red Blood Count 3.45 X10*6/uL (4.20-5.50); Red Cell Distribution Width 18.4 % (11.0-16.0); White Blood Count 5.7 X10*3/uL (4.8-10.8)
[2021-12-15 06:32] LABS: Anion Gap 12 (12-20); Blood Urea Nitrogen 48 mg/dL (9-16); Calcium 8.9 mg/dL (8.4-10.2); Carbon Dioxide 31 mmol/L (22-29); Chloride 101 mmol/L (96-108); Creatinine Clr Calc Pharmacy 108.5; Estimated Glomerular Filt Rate 45; Glucose Random 155 mg/dL (60-115); Potassium 4.5 mmol/L (3.3-5.1); Sodium 139 mmol/L (135-145)
[2021-12-15 07:17] VITALS: BP 153/88; PULSE 79; RESP 17; TEMP 36.2; O2SAT 97
[2021-12-15 07:27] LABS: Glucose, Whole Blood 136 mg/dL (60-115)
[2021-12-15] MEDS: Lidocaine 4 % Patch ADH..PATCH 1 PATCH TRANSDERMA (08:22)
[2021-12-15] MEDS: polyethylene glycoL 3350 17 GM POWD.PACK PO (08:23)
[2021-12-15] MEDS: Buprenorphine/Naloxone 8/2 mg FILM 1 FILM SUBLINGUAL ×3 (08:24→20:04)
[2021-12-15] MEDS: Loratadine 10 MG TABLET PO (08:24)
[2021-12-15] MEDS: Furosemide 40 MG TABLET PO ×2 (08:24→17:00)
[2021-12-15] MEDS: Insulin Lispro 100 UNIT/ML 3 ML VIAL SUBCUT ×6 (08:24→20:12)
[2021-12-15] MEDS: Gabapentin 600 MG TABLET PO ×3 (08:25→20:04)
[2021-12-15] MEDS: Nystatin Powder 15 GM BOTTLE 1 APPL TOPICAL ×2 (08:25→20:13)
[2021-12-15] MEDS: amLODIPine Besylate 5 MG TABLET PO (08:25)
[2021-12-15] MEDS: Aspirin Enteric Coated 81 MG TABLET.DR PO (08:25)
[2021-12-15] MEDS: FLUoxetine HCl 20 MG CAPSULE 60 MG PO (08:25)
--- NOTE | 2021-12-15 11:16 | P.PNIM_ITS ---
Subjective Subjective Date of Service: 12/15/21 Interval History: Laying in bed, feels comfortable overall Complaining of pain in her knees Able to stand up with help yesterday and sitting in the chair No reported other overnight events. Systemic review: No fever, chills or weakness No chest pain, palpitation No shortness of breath or coughing No abdominal pain, nausea or vomiting No urinary symptoms Joint pain in her knees Lower extremity chronic rash Physical Exam Vital Signs: Vital Signs: Last Vital Signs Temp 97.2 F 12/15/21 07:17 Pulse 79 12/15/21 07:17 Resp 17 12/15/21 07:17 BP 153/88 H 12/15/21 07:17 Pulse Ox 97 12/15/21 07:17 O2 Del Method 12/15/21 07:17 O2 Flow Rate 2 12/15/21 07:17 BMI result Body Mass Index 78.2 Const: Other: Constitutional : Morbidly obese, interactive, not in distress Neck : Normal inspection, Supple Cardiovascular : RRR, no JVP, trace bilateral lower extremity edema Respiratory : fair bilateral air entry, basal fine crackles, wheezes or rhonchi, oxygen supplement Gastrointestinal: soft, lax, Normal bowel sounds, Non tender Skin : Warm, Dry, bilateral chronic stasis dermatitis changes Neurological : Alert & oriented x3, No focal deficit , CN 2-12 within normal Objective Data Active Medications Acetaminophen (Acetaminophen 325 Mg Tablet) 650 mg PO Q6H PRN PRN Reason: Pain, Mild (Pain Scale 1-3) Last Admin: 12/14/21 08:33 Dose: 650 mg Documented By: KAITLYNN Albuterol Sulfate (Albuterol Sulfate 90 Mcg 8 Gm Inhaler) 2 puff INHALE Q4H PRN PRN Reason: wheezing Amlodipine Besylate (Amlodipine Besylate 5 Mg Tablet) 5 mg PO DAILY [facility]; Protocol Last Admin: 12/15/21 08:25 Dose: 5 mg Documented By: AARON Aspirin (Aspirin Enteric Coated 81 Mg Tablet.) 81 mg PO DAILY [facility] Last Admin: 12/15/21 08:25 Dose: 81 mg Documented By: AARON Atorvastatin Calcium (Atorvastatin Calcium 80 Mg Tablet) 80 mg PO BEDTIME [facility] Last Admin: 12/14/21 20:56 Dose: 80 mg Documented By: ZULEIKA Buprenorphine/Naloxone (Buprenorphine/Naloxone 8/2 Mg Film) 1 film SUBLINGUAL TID [facility] Last Admin: 12/15/21 08:24 Dose: 1 film Documented By: AARON Clonazepam (Clonazepam 0.5 Mg Tablet) 0.25 mg PO DAILY PRN PRN Reason: anxiety/restlessness Fluoxetine HCl (Fluoxetine Hcl 20 Mg Capsule) 60 mg PO DAILY [facility] Last Admin: 12/15/21 08:25 Dose: 60 mg Documented By: AARON Furosemide (Furosemide 40 Mg Tablet) 40 mg PO BID@0900,1800 [facility]; Protocol Last Admin: 12/15/21 08:24 Dose: 40 mg Documented By: AARON Gabapentin (Gabapentin 600 Mg Tablet) 600 mg PO TID [facility] Last Admin: 12/15/21 08:25 Dose: 600 mg Documented By: AARON Heparin Sodium (Porcine) (Heparin Sodium,Porcine 5,000 Unit/Ml Vial) 5,000 unit SUBCUT Q8H [facility] Last Admin: 12/15/21 05:21 Dose: 5,000 unit Documented By: CHRIS Ibuprofen (Ibuprofen 400 Mg Tablet) 400 mg PO Q6H PRN PRN Reason: moderate pain Last Admin: 12/14/21 08:34 Dose: 400 mg Documented By: KAITLYNN Insulin Glargine (Insulin Glargine,Hum.Rec.Anlog 100 Unit/Ml 10 Ml Vial) 18 unit SUBCUT BEDTIME [facility] Last Admin: 12/14/21 20:54 Dose: 18 unit Documented By: ZULEIKA Insulin Human Lispro (Insulin Lispro 100 Unit/Ml 3 Ml Vial) 0 unit SUBCUT QIDACHS [facility]; Protocol Last Admin: 12/15/21 07:35 Dose: Not Given Documented By: AARON Non-Admin Reason: No Insulin Coverage Insulin Human Lispro (Insulin Lispro 100 Unit/Ml 3 Ml Vial) 5 unit SUBCUT QIDACHS [facility] Last Admin: 12/15/21 08:24 Dose: 5 unit Documented By: AARON Levothyroxine Sodium (Levothyroxine Sodium 125 Mcg Tablet) 250 mcg PO DAILY@0 630 [facility] Last Admin: 12/15/21 05:30 Dose: 250 mcg Documented By: CHRIS Lidocaine (Lidocaine 4 % Patch Adh..Patch) 1 patch TRANSDERMA DAILY [facility]; Protocol Last Admin: 12/15/21 08:22 Dose: 1 patch Documented By: AARON Lidocaine (Lidocaine 4 % Patch Adh..Patch) 1 patch TRANSDERMA DAILY [facility]; Protocol Last Admin: 12/15/21 08:25 Dose: Not Given Documented By: AARON Non-Admin Reason: Patient Refused Loratadine (Loratadine 10 Mg Tablet) 10 mg PO DAILY [facility] Last Admin: 12/15/21 08:24 Dose: 10 mg Documented By: AARON Magnesium Hydroxide (Milk Of Magnesia 30 Ml Oral.Susp) 15 ml PO BEDTIME PRN PRN Reason: Constipation Last Admin: 11/30/21 19:34 Dose: 15 ml Documented By: ADINA Mineral Oil (Mineral Oil Enema 133 Ml Enema) 133 ml [place] ONCE PRN PRN Reason: constipation Nystatin (Nystatin Powder 15 Gm Bottle) 1 appl TOPICAL TID [facility]; Protocol Last Admin: 12/15/21 08:25 Dose: 1 appl Documented By: AARON Omeprazole (Omeprazole 20 Mg Capsule.Dr) 20 mg PO BID@0630,1630 [facility] Last Admin: 12/15/21 05:30 Dose: 20 mg Documented By: CHRIS Ondansetron HCl (Ondansetron Hcl 4 Mg/2 Ml Vial) 4 mg IVPUSH Q8H PRN PRN Reason: Nausea and Vomiting Pharmacy Consult (Consult Rx Perform Med Rec) 1 each MISCELLANE ONCE PRN PRN Reason: Consult order Polyethylene Glycol (Polyethylene Glycol 3350 17 Gm Powd.Pack) 17 gm PO DAILY [facility] Last Admin: 12/15/21 08:23 Dose: 17 gm Documented By: AARON Senna/Docusate Sodium (Sennosides/Docusate Sodium Tablet) 1 tab PO DAILY [facility] Last Admin: 12/15/21 08:32 Dose: Not Given Documented By: AARON Non-Admin Reason: Patient Refused Sodium Chloride (0.9 % Sodium Chloride Flush 3 Ml Syringe) 3 ml IVFLUSH QSHIFT [facility] Last Admin: 12/15/21 07:36 Dose: Not Given Documented By: AARON Non-Admin Reason: No Access Trazodone HCl (Trazodone Hcl 100 Mg Tablet) 200 mg PO BEDTIME PRN PRN Reason: Insomnia Last Admin: 12/14/21 21:05 Dose: 200 mg Documented By: ZULEIKA Labs CBC & Chem 7: 12/15/21 05:18 12/15/21 05:18 Labs: Laboratory Results - last 24 hr 12/14/21 12/14/21 12/14/21 11:31 15:38 19:22 MCV MCH MCHC RDW Plt Count MPV Absolute Nucleated RBC Nucleated RBC % (auto) Anion Gap Estim Creat Clear Calc Estimated GFR POC Glucose 144 H 167 H 182 H Random Glucose Calcium 12/15/21 12/15/21 12/15/21 05:18 05:18 07:18 MCV 85.5 MCH 24.9 L MCHC 29.2 L RDW 18.4 H Plt Count 226 MPV 10.5 Absolute Nucleated RBC 0.000 Nucleated RBC % (auto) 0.0 Anion Gap 12 Estim Creat Clear Calc 108.5 Estimated GFR 45 POC Glucose 136 H Random Glucose 155 H Calcium 8.9 Assessment and Plan (1) Physical deconditioning: Status: Acute (2) Chronic respiratory failure with hypoxia: Status: Acute Plan 51 yo F who presented to ED with LE swelling, was awaiting STR placement but noted to have abd swelling and found to have hydronephrosis on abd CT that turns out to be chronic with decreased R kidney function Physical deconditioning Patient unable to ambulate or even stand up at this point from prolonged hospital stay and deconditioning Physical therapy, nursing staff are following with her with a plan to keep ambulating her and trying to get her up on her feet in order to place her to SNF or to go back home if she is able to climb the stairs. Constipation multiple BMs documented continue bowel regimen Right hand swelling Neg for VTE chronic LE edema US negative for VTE; likely due to obesity, anemia, hypoalbuminemia, and likely R-sided HF IV furosemide changed to oral Lasix chronic hypoxic resp failure likely 2/2 OHS, COPD + asthma overall better prn albuterol 1-2 liters nc at baseline chest/shoulder pain EKG normal and hs-Tn-I normal.? origin is MSK, likely shoulder impingement; continue lidocaine patch, PT/OT R hydronephrosis/proximal ureteral dilation Urology seen- no acute therapy indicated- chronic issue.? Lasix renogram showed diminished R renal function; normal on L.? outpt Uro f/u.? renal function stable. acute/chronic normocytic anemia likely anemia of CKD, improved s/p 1u pRBCs; normal iron studies/B12/FA H/H stable CKD3 Creatinine at baseline UTI treated with Ceftriaxone HTN continue amlodipine HLD continue atorvastatin L knee pain APAP for arthritis pain DM2 A1c 9.2, basal/bolus insulin hypothyroid TSH 20.29, increased LT4 200->250 mcg/d and repeat TSH in 6 wk mood disorder continue fluoxetine GERD PPI OUD Suboxone morbid obesity discussed importance of weight management as this is likely contributing to worsening of other comorbidities VTE ppx- UFH Continued hospitalization/dispo - seen by physical therapy; they recommend short-term rehab for optimal functional gains.? however, no STR beds are available in the state due to her weight + Suboxone use + Covid-19 unvaccinated status.? She declines Covid-19 vaccine due to buddhist beliefs as a [employer]. ? CM broadening search.? PT and OT working with pt to gain ability to get up her stairs herself in which case she could go home with VNA at some point Quality Stroke Does the patient have a stroke diagnosis?: No VTE Prior VTE?: No VTE Risk Level:: Medical - moderate - high VTE Device Contraindication: Treatment Not Indicated VTE Drug Contraindication: N/A - Med Ordered
[2021-12-15 11:17] VITALS: BP 144/80; PULSE 77; RESP 14; TEMP 36.4; O2SAT 96
[2021-12-15 11:26] LABS: Glucose, Whole Blood 144 mg/dL (60-115)
[2021-12-15] MEDS: clonazePAM 0.5 MG TABLET 0.25 MG PO (11:35)
[2021-12-15] MEDS: Ibuprofen 400 MG TABLET PO (11:45)
[2021-12-15] MEDS: Acetaminophen 325 MG TABLET 650 MG PO (11:45)
[2021-12-15 15:17] VITALS: BP 113/58; PULSE 68; RESP 17; TEMP 36.3; O2SAT 96
[2021-12-15 15:48] LABS: Glucose, Whole Blood 191 mg/dL (60-115)
[2021-12-15 19:23] VITALS: BP 144/78; PULSE 80; RESP 17; TEMP 36.4; O2SAT 98
[2021-12-15 19:47] LABS: Glucose, Whole Blood 156 mg/dL (60-115)
[2021-12-15] MEDS: Atorvastatin Calcium 80 MG TABLET PO (20:04)
[2021-12-15] MEDS: Insulin Glargine,Hum.rec.anlog 100 UNIT/ML 10 ML VIAL 18 UNIT SUBCUT (20:04)
[2021-12-15] MEDS: traZODone HCL 100 MG TABLET 200 MG PO (20:19)
[2021-12-15 23:47] VITALS: BP 142/72; PULSE 74; RESP 20; TEMP 36.7; O2SAT 98
[2021-12-16] VITALS (7 sets, daily range): BP systolic 104–144; BP diastolic 56–75; PULSE 68–84; RESP 17–21; TEMP 35.7–36.8; O2SAT 93–98
[2021-12-16] MEDS: Levothyroxine Sodium 125 MCG TABLET 250 MCG PO (05:46)
[2021-12-16] MEDS: Omeprazole 20 MG CAPSULE.DR PO ×2 (05:47→16:42)
[2021-12-16] MEDS: Heparin Sodium,Porcine 5,000 UNIT/ML VIAL 5000 UNIT SUBCUT ×3 (05:47→20:44)
[2021-12-16 07:26] LABS: Glucose, Whole Blood 148 mg/dL (60-115)
[2021-12-16] MEDS: Lidocaine 4 % Patch ADH..PATCH 1 PATCH TRANSDERMA (08:17)
[2021-12-16] MEDS: polyethylene glycoL 3350 17 GM POWD.PACK PO (08:17)
[2021-12-16] MEDS: Buprenorphine/Naloxone 8/2 mg FILM 1 FILM SUBLINGUAL ×3 (08:18→20:44)
[2021-12-16] MEDS: FLUoxetine HCl 20 MG CAPSULE 60 MG PO (08:18)
[2021-12-16] MEDS: Gabapentin 600 MG TABLET PO ×3 (08:18→20:44)
[2021-12-16] MEDS: amLODIPine Besylate 5 MG TABLET PO (08:18)
[2021-12-16] MEDS: Furosemide 40 MG TABLET PO ×2 (08:18→16:42)
[2021-12-16] MEDS: Aspirin Enteric Coated 81 MG TABLET.DR PO (08:18)
[2021-12-16] MEDS: Loratadine 10 MG TABLET PO (08:18)
[2021-12-16] MEDS: Nystatin Powder 15 GM BOTTLE 1 APPL TOPICAL ×2 (08:19→20:48)
[2021-12-16] MEDS: Insulin Lispro 100 UNIT/ML 3 ML VIAL SUBCUT ×6 (08:19→20:45)
[2021-12-16] MEDS: clonazePAM 0.5 MG TABLET 0.25 MG PO (08:33)
[2021-12-16] MEDS: Ammonium Lactate 12 % Lotion 226 GM BOTTLE 1 APPL TOPICAL ×2 (10:52→20:48)
[2021-12-16 11:22] LABS: Glucose, Whole Blood 128 mg/dL (60-115)
--- NOTE | 2021-12-16 11:41 | P.PNIM_ITS ---
Subjective Subjective Date of Service: 12/16/21 Interval History: Laying in bed, feels comfortable overall Complaining of pain in her knees Able to stand up with help yesterday and sitting in the chair No reported other overnight events. Systemic review: No fever, chills or weakness No chest pain, palpitation No shortness of breath or coughing No abdominal pain, nausea or vomiting No urinary symptoms Joint pain in her knees Lower extremity chronic rash Physical Exam Vital Signs: Vital Signs: Last Vital Signs Temp 96.9 F 12/16/21 11:28 Pulse 84 12/16/21 11:28 Resp 17 12/16/21 11:28 BP 121/71 12/16/21 11:28 Pulse Ox 93 12/16/21 11:28 O2 Del Method 12/16/21 11:28 O2 Flow Rate 2 12/16/21 11:28 BMI result Body Mass Index 78.2 Const: Other: Constitutional : Morbidly obese, interactive, not in distress Neck : Normal inspection, Supple Cardiovascular : RRR, no JVP, trace bilateral lower extremity edema Respiratory : fair bilateral air entry, basal fine crackles, wheezes or rhonchi, oxygen supplement Gastrointestinal: soft, lax, Normal bowel sounds, Non tender Skin : Warm, Dry, bilateral chronic stasis dermatitis changes Neurological : Alert & oriented x3, No focal deficit , CN 2-12 within normal Objective Data Active Medications Acetaminophen (Acetaminophen 325 Mg Tablet) 650 mg PO Q6H PRN PRN Reason: Pain, Mild (Pain Scale 1-3) Last Admin: 12/15/21 11:45 Dose: 650 mg Documented By: AARON Albuterol Sulfate (Albuterol Sulfate 90 Mcg 8 Gm Inhaler) 2 puff INHALE Q4H PRN PRN Reason: wheezing Amlodipine Besylate (Amlodipine Besylate 5 Mg Tablet) 5 mg PO DAILY COUNTS INCLUDE 234 BEDS AT THE [facility]; Protocol Last Admin: 12/16/21 08:18 Dose: 5 mg Documented By: AARON Aspirin (Aspirin Enteric Coated 81 Mg Tablet.) 81 mg PO DAILY COUNTS INCLUDE 234 BEDS AT THE [facility] Last Admin: 12/16/21 08:18 Dose: 81 mg Documented By: AARON Atorvastatin Calcium (Atorvastatin Calcium 80 Mg Tablet) 80 mg PO BEDTIME COUNTS INCLUDE 234 BEDS AT THE [facility] Last Admin: 12/15/21 20:04 Dose: 80 mg Documented By: SUSHANT Buprenorphine/Naloxone (Buprenorphine/Naloxone 8/2 Mg Film) 1 film SUBLINGUAL TID COUNTS INCLUDE 234 BEDS AT THE [facility] Last Admin: 12/16/21 08:18 Dose: 1 film Documented By: AARON Clonazepam (Clonazepam 0.5 Mg Tablet) 0.25 mg PO DAILY PRN PRN Reason: anxiety/restlessness Last Admin: 12/16/21 08:33 Dose: 0.25 mg Documented By: AARON Fluoxetine HCl (Fluoxetine Hcl 20 Mg Capsule) 60 mg PO DAILY COUNTS INCLUDE 234 BEDS AT THE [facility] Last Admin: 12/16/21 08:18 Dose: 60 mg Documented By: AARON Furosemide (Furosemide 40 Mg Tablet) 40 mg PO BID@0900,1800 COUNTS INCLUDE 234 BEDS AT THE [facility]; Protocol Last Admin: 12/16/21 08:18 Dose: 40 mg Documented By: AARON Gabapentin (Gabapentin 600 Mg Tablet) 600 mg PO TID COUNTS INCLUDE 234 BEDS AT THE [facility] Last Admin: 12/16/21 08:18 Dose: 600 mg Documented By: AARON Heparin Sodium (Porcine) (Heparin Sodium,Porcine 5,000 Unit/Ml Vial) 5,000 unit SUBCUT Q8H COUNTS INCLUDE 234 BEDS AT THE [facility] Last Admin: 12/16/21 05:47 Dose: 5,000 unit Documented By: SUSHANT Ibuprofen (Ibuprofen 400 Mg Tablet) 400 mg PO Q6H PRN PRN Reason: moderate pain Last Admin: 12/15/21 11:45 Dose: 400 mg Documented By: AARON Insulin Glargine (Insulin Glargine,Hum.Rec.Anlog 100 Unit/Ml 10 Ml Vial) 18 unit SUBCUT BEDTIME COUNTS INCLUDE 234 BEDS AT THE [facility] Last Admin: 12/15/21 20:04 Dose: 18 unit Documented By: SUSHANT Insulin Human Lispro (Insulin Lispro 100 Unit/Ml 3 Ml Vial) 0 unit SUBCUT QIDACHS COUNTS INCLUDE 234 BEDS AT THE [facility]; Protocol Last Admin: 12/16/21 07:40 Dose: Not Given Documented By: AARON Non-Admin Reason: No Insulin Coverage Insulin Human Lispro (Insulin Lispro 100 Unit/Ml 3 Ml Vial) 5 unit SUBCUT QIDACHS COUNTS INCLUDE 234 BEDS AT THE [facility] Last Admin: 12/16/21 08:19 Dose: 5 unit Documented By: AARON Lactic Acid (Ammonium Lactate 12 % Lotion 226 Gm Bottle) 1 appl TOPICAL BID COUNTS INCLUDE 234 BEDS AT THE [facility]; Protocol Last Admin: 12/16/21 10:52 Dose: 1 appl Documented By: AARON Levothyroxine Sodium (Levothyroxine Sodium 125 Mcg Tablet) 250 mcg PO DAILY@0630 COUNTS INCLUDE 234 BEDS AT THE [facility] Last Admin: 12/16/21 05:46 Dose: 250 mcg Documented By: SUSHANT Lidocaine (Lidocaine 4 % Patch Adh..Patch) 1 patch TRANSDERMA DAILY COUNTS INCLUDE 234 BEDS AT THE [facility]; Protocol Last Admin: 12/16/21 08:17 Dose: 1 patch Documented By: AARON Lidocaine (Lidocaine 4 % Patch Adh..Patch) 1 patch TRANSDERMA DAILY COUNTS INCLUDE 234 BEDS AT THE [facility]; Protocol Last Admin: 12/16/21 08:17 Dose: Not Given Documented By: AARON Non-Admin Reason: Patient Refused Loratadine (Loratadine 10 Mg Tablet) 10 mg PO DAILY COUNTS INCLUDE 234 BEDS AT THE [facility] Last Admin: 12/16/21 08:18 Dose: 10 mg Documented By: AARON Magnesium Hydroxide (Milk Of Magnesia 30 Ml Oral.Susp) 15 ml PO BEDTIME PRN PRN Reason: Constipation Last Admin: 11/30/21 19:34 Dose: 15 ml Documented By: ADINA Mineral Oil (Mineral Oil Enema 133 Ml Enema) 133 ml [place] ONCE PRN PRN Reason: constipation Nystatin (Nystatin Powder 15 Gm Bottle) 1 appl TOPICAL TID COUNTS INCLUDE 234 BEDS AT THE [facility]; Protocol Last Admin: 12/16/21 08:19 Dose: 1 appl Documented By: AARON Omeprazole (Omeprazole 20 Mg Capsule.) 20 mg PO BID@0630,1630 COUNTS INCLUDE 234 BEDS AT THE [facility] Last Admin: 12/16/21 05:47 Dose: 20 mg Documented By: SUSHANT Ondansetron HCl (Ondansetron Hcl 4 Mg/2 Ml Vial) 4 mg IVPUSH Q8H PRN PRN Reason: Nausea and Vomiting Pharmacy Consult (Consult Rx Perform Med Rec) 1 each MISCELLANE ONCE PRN PRN Reason: Consult order Polyethylene Glycol (Polyethylene Glycol 3350 17 Gm Powd.Pack) 17 gm PO DAILY COUNTS INCLUDE 234 BEDS AT THE [facility] Last Admin: 12/16/21 08:17 Dose: 17 gm Documented By: AARON Senna/Docusate Sodium (Sennosides/Docusate Sodium Tablet) 1 tab PO DAILY COUNTS INCLUDE 234 BEDS AT THE [facility] Last Admin: 12/16/21 08:19 Dose: Not Given Documented By: AARON Non-Admin Reason: Patient Refused Sodium Chloride (0.9 % Sodium Chloride Flush 3 Ml Syringe) 3 ml IVFLUSH QSHIFT COUNTS INCLUDE 234 BEDS AT THE [facility] Last Admin: 12/16/21 07:01 Dose: Not Given Documented By: AARON Non-Admin Reason: No Access Trazodone HCl (Trazodone Hcl 100 Mg Tablet) 200 mg PO BEDTIME PRN PRN Reason: Insomnia Last Admin: 12/15/21 20:19 Dose: 200 mg Documented By: SUSHANT Labs CBC & Chem 7: 12/15/21 05:18 12/15/21 05:18 Labs: Laboratory Results - last 24 hr 12/15/21 12/15/21 12/16/21 15:21 19:27 07:11 POC Glucose 191 H 156 H 148 H 12/16/21 11:14 POC Glucose 128 H Assessment and Plan (1) Physical deconditioning: Status: Acute Plan 51 yo F who presented to ED with LE swelling, was awaiting STR placement but noted to have abd swelling and found to have hydronephrosis on abd CT that turns out to be chronic with decreased R kidney function Physical deconditioning Patient unable to ambulate or even stand up at this point from prolonged hospital stay and deconditioning Physical therapy, nursing staff are following with her with a plan to keep ambulating her and trying to get her up on her feet in order to place her to SNF or to go back home if she is able to climb the stairs. Constipation multiple BMs documented continue bowel regimen Right hand swelling Neg for VTE chronic LE edema US negative for VTE; likely due to obesity, anemia, hypoalbuminemia, and likely R-sided HF IV furosemide changed to oral Lasix chronic hypoxic resp failure likely 2/2 OHS, COPD + asthma overall better prn albuterol 1-2 liters nc at baseline chest/shoulder pain EKG normal and hs-Tn-I normal.? origin is MSK, likely shoulder impingement; continue lidocaine patch, PT/OT R hydronephrosis/proximal ureteral dilation Urology seen- no acute therapy indicated- chronic issue.? Lasix renogram showed diminished R renal function; normal on L.? outpt Uro f/u.? renal function stable. acute/chronic normocytic anemia likely anemia of CKD, improved s/p 1u pRBCs; normal iron studies/B12/FA H/H stable CKD3 Creatinine at baseline UTI treated with Ceftriaxone HTN continue amlodipine HLD continue atorvastatin L knee pain APAP for arthritis pain DM2 A1c 9.2, basal/bolus insulin hypothyroid TSH 20.29, increased LT4 200->250 mcg/d and repeat TSH in 6 wk mood disorder continue fluoxetine GERD PPI OUD Suboxone morbid obesity discussed importance of weight management as this is likely contributing to worsening of other comorbidities VTE ppx- UFH Continued hospitalization/dispo - seen by physical therapy; they recommend short-term rehab for optimal functional gains.? however, no STR beds are available in the state due to her weight + Suboxone use + Covid-19 unvaccinated status.? She declines Covid-19 vaccine due to roman catholic beliefs as a [employer]. ? CM broadening search.? PT and OT working with pt to gain ability to get up her stairs herself in which case she could go home with VNA at some point Quality Stroke Does the patient have a stroke diagnosis?: No VTE Prior VTE?: No VTE Risk Level:: Medical - moderate - high VTE Device Contraindication: Treatment Not Indicated VTE Drug Contraindication: N/A - Med Ordered
--- NOTE | 2021-12-16 13:17 | MHC.CLN ---
F/U F/U FOR DESIRED WEIGHT LOSS. INTAKE USUALLY 100% AT MEALS. HAS TURKEY SANDWICH HS SNACK. BRINGS IN CRACKERS. REPORTS THAT HE IS SUPPORTIVE OF WEIGHT LOSS EFFORT. DIET=DIABETIC 1800 KCALS, 2 GRAM SODIUM. PATIENT AWARE OF DIET AND NO REPORTED CONCERNS. CONTINUES TO ORDER A LIMITED VARIETY OF FOODS AT MEALS. NO NEW WEIGHT FOR COMPARISON.
--- NOTE | 2021-12-16 13:47 | MHC.CM.PN ---
EMR REVIEWED, PT UP IN BARIATRIC CHAIR TODAY, WORKING W/PT HOWEVER HAS NOT BEEN JACK TO STAND, NO PLAN FOR D/C TODAY, CM WILL CONT TO FOLLOW REFERRALS AND D/C NEEDS.
[2021-12-16 15:52] LABS: Glucose, Whole Blood 169 mg/dL (60-115)
[2021-12-16] MEDS: Acetaminophen 325 MG TABLET 650 MG PO (16:48)
[2021-12-16] MEDS: Ibuprofen 400 MG TABLET PO (16:49)
[2021-12-16 20:27] LABS: Glucose, Whole Blood 157 mg/dL (60-115)
[2021-12-16] MEDS: traZODone HCL 100 MG TABLET 200 MG PO (20:44)
[2021-12-16] MEDS: Atorvastatin Calcium 80 MG TABLET PO (20:44)
[2021-12-16] MEDS: Insulin Glargine,Hum.rec.anlog 100 UNIT/ML 10 ML VIAL 18 UNIT SUBCUT (20:45)
[2021-12-17 03:11] VITALS: BP 116/58; PULSE 72; RESP 18; TEMP 36.5; O2SAT 94
[2021-12-17] MEDS: Heparin Sodium,Porcine 5,000 UNIT/ML VIAL 5000 UNIT SUBCUT ×3 (06:03→21:17)
[2021-12-17] MEDS: Levothyroxine Sodium 125 MCG TABLET 250 MCG PO (06:03)
[2021-12-17] MEDS: Omeprazole 20 MG CAPSULE.DR PO ×2 (06:03→16:38)
[2021-12-17 07:22] LABS: Glucose, Whole Blood 129 mg/dL (60-115)
[2021-12-17 07:57] VITALS: BP 104/61; PULSE 80; RESP 20; TEMP 36.7; O2SAT 98
[2021-12-17] MEDS: FLUoxetine HCl 20 MG CAPSULE 60 MG PO (08:39)
[2021-12-17] MEDS: Buprenorphine/Naloxone 8/2 mg FILM 1 FILM SUBLINGUAL ×3 (08:39→21:18)
[2021-12-17] MEDS: polyethylene glycoL 3350 17 GM POWD.PACK PO (08:39)
[2021-12-17] MEDS: Loratadine 10 MG TABLET PO (08:40)
[2021-12-17] MEDS: amLODIPine Besylate 5 MG TABLET PO (08:40)
[2021-12-17] MEDS: Furosemide 40 MG TABLET PO ×2 (08:40→16:38)
[2021-12-17] MEDS: Lidocaine 4 % Patch ADH..PATCH 1 PATCH TRANSDERMA (08:40)
[2021-12-17] MEDS: Gabapentin 600 MG TABLET PO ×3 (08:40→21:17)
[2021-12-17] MEDS: Aspirin Enteric Coated 81 MG TABLET.DR PO (08:40)
[2021-12-17] MEDS: Nystatin Powder 15 GM BOTTLE 1 APPL TOPICAL ×2 (08:41→21:19)
[2021-12-17] MEDS: Ammonium Lactate 12 % Lotion 226 GM BOTTLE 1 APPL TOPICAL (08:43)
[2021-12-17] MEDS: 0.9 % Sodium Chloride Flush 3 ML SYRINGE IVFLUSH (08:44)
[2021-12-17] MEDS: Insulin Lispro 100 UNIT/ML 3 ML VIAL SUBCUT ×4 (08:44→21:18)
[2021-12-17] MEDS: clonazePAM 0.5 MG TABLET 0.25 MG PO (08:57)
[2021-12-17 11:46] LABS: Glucose, Whole Blood 111 mg/dL (60-115)
[2021-12-17 12:00] VITALS: BP 128/69; PULSE 75; RESP 18; TEMP 36.4; O2SAT 94
[2021-12-17] MEDS: Acetaminophen 325 MG TABLET 650 MG PO ×2 (12:25→21:33)
[2021-12-17] MEDS: Ibuprofen 400 MG TABLET PO ×2 (12:26→21:34)
--- NOTE | 2021-12-17 12:29 | HO.PM.IMPN ---
Subjective Subjective Date of Service: 12/17/21 Interval History: Laying in bed, feels comfortable overall Feels little bit stronger as she is tolerating physical therapy sessions Able to stand up with help yesterday and sitting in the chair No reported other overnight events. Systemic review: No fever, chills or weakness No chest pain, palpitation No shortness of breath or coughing No abdominal pain, nausea or vomiting No urinary symptoms Joint pain in her knees Lower extremity chronic rash Physical Exam Vital Signs: Vital Signs: Last Vital Signs Temp 97.6 F 12/17/21 12:00 Pulse 75 12/17/21 12:00 Resp 18 12/17/21 12:00 BP 128/69 12/17/21 12:00 Pulse Ox 94 12/17/21 12:00 O2 Del Method 12/17/21 12:00 O2 Flow Rate 2 12/17/21 12:00 BMI result Body Mass Index 78.2 Const: Other: Constitutional : Morbidly obese, interactive, not in distress Neck : Normal inspection, Supple Cardiovascular : RRR, no JVP, trace bilateral lower extremity edema Respiratory : fair bilateral air entry, basal fine crackles, wheezes or rhonchi, oxygen supplement Gastrointestinal: soft, lax, Normal bowel sounds, Non tender Skin : Warm, Dry, bilateral chronic stasis dermatitis changes Neurological : Alert & oriented x3, No focal deficit , CN 2-12 within normal Objective Data Active Medications Acetaminophen (Acetaminophen 325 Mg Tablet) 650 mg PO Q6H PRN PRN Reason: Pain, Mild (Pain Scale 1-3) Last Admin: 12/17/21 12:25 Dose: 650 mg Documented By: MERCEDES Albuterol Sulfate (Albuterol Sulfate 90 Mcg 8 Gm Inhaler) 2 puff INHALE Q4H PRN PRN Reason: wheezing Amlodipine Besylate (Amlodipine Besylate 5 Mg Tablet) 5 mg PO DAILY PENDING SALE TO [facility]; Protocol Last Admin: 12/17/21 08:40 Dose: 5 mg Documented By: MERCEDES Aspirin (Aspirin Enteric Coated 81 Mg Tablet.) 81 mg PO DAILY PENDING SALE TO [facility] Last Admin: 12/17/21 08:40 Dose: 81 mg Documented By: MERCEDES Atorvastatin Calcium (Atorvastatin Calcium 80 Mg Tablet) 80 mg PO BEDTIME PENDING SALE TO [facility] Last Admin: 12/16/21 20:44 Dose: 80 mg Documented By: SUSHANT Buprenorphine/Naloxone (Buprenorphine/Naloxone 8/2 Mg Film) 1 film SUBLINGUAL TID PENDING SALE TO [facility] Last Admin: 12/17/21 08:39 Dose: 1 film Documented By: MERCEDES Clonazepam (Clonazepam 0.5 Mg Tablet) 0.5 mg PO DAILY PRN PRN Reason: anxiety/restlessness Fluoxetine HCl (Fluoxetine Hcl 20 Mg Capsule) 60 mg PO DAILY PENDING SALE TO [facility] Last Admin: 12/17/21 08:39 Dose: 60 mg Documented By: MERCEDES Furosemide (Furosemide 40 Mg Tablet) 40 mg PO BID@0900,1800 PENDING SALE TO [facility]; Protocol Last Admin: 12/17/21 08:40 Dose: 40 mg Documented By: MERCEDES Gabapentin (Gabapentin 600 Mg Tablet) 600 mg PO TID PENDING SALE TO [facility] Last Admin: 12/17/21 08:40 Dose: 600 mg Documented By: MERCEDES Heparin Sodium (Porcine) (Heparin Sodium,Porcine 5,000 Unit/Ml Vial) 5,000 unit SUBCUT Q8H PENDING SALE TO [facility] Last Admin: 12/17/21 06:03 Dose: 5,000 unit Documented By: SUSHANT Ibuprofen (Ibuprofen 400 Mg Tablet) 400 mg PO Q6H PRN PRN Reason: moderate pain Last Admin: 12/17/21 12:26 Dose: 400 mg Documented By: MERCEDES Insulin Glargine (Insulin Glargine,Hum.Rec.Anlog 100 Unit/Ml 10 Ml Vial) 18 unit SUBCUT BEDTIME PENDING SALE TO [facility] Last Admin: 12/16/21 20:45 Dose: 18 unit Documented By: SUSHANT Insulin Human Lispro (Insulin Lispro 100 Unit/Ml 3 Ml Vial) 0 unit SUBCUT QIDACHS PENDING SALE TO [facility]; Protocol Last Admin: 12/17/21 12:11 Dose: Not Given Documented By: MERCEDES Non-Admin Reason: No Insulin Coverage Insulin Human Lispro (Insulin Lispro 100 Unit/Ml 3 Ml Vial) 5 unit SUBCUT QIDACHS PENDING SALE TO [facility] Last Admin: 12/17/21 12:11 Dose: 5 unit Documented By: MERCEDES Lactic Acid (Ammonium Lactate 12 % Lotion 226 Gm Bottle) 1 appl TOPICAL BID PENDING SALE TO [facility]; Protocol Last Admin: 12/17/21 08:43 Dose: 1 appl Documented By: MERCEDES Levothyroxine Sodium (Levothyroxine Sodium 125 Mcg Tablet) 250 mcg PO DAILY@0630 PENDING SALE TO [facility] Last Admin: 12/17/21 06:03 Dose: 250 mcg Documented By: SUSHANT Lidocaine (Lidocaine 4 % Patch Adh..Patch) 1 patch TRANSDERMA DAILY PENDING SALE TO [facility]; Protocol Last Admin: 12/17/21 08:40 Dose: 1 patch Documented By: MERCEDES Lidocaine (Lidocaine 4 % Patch Adh..Patch) 1 patch TRANSDERMA DAILY PENDING SALE TO [facility]; Protocol Last Admin: 12/17/21 08:41 Dose: Not Given Documented By: MERCEDES Non-Admin Reason: Patient Refused Loratadine (Loratadine 10 Mg Tablet) 10 mg PO DAILY PENDING SALE TO [facility] Last Admin: 12/17/21 08:40 Dose: 10 mg Documented By: MERCEDES Magnesium Hydroxide (Milk Of Magnesia 30 Ml Oral.Susp) 15 ml PO BEDTIME PRN PRN Reason: Constipation Last Admin: 11/30/21 19:34 Dose: 15 ml Documented By: ADINA Mineral Oil (Mineral Oil Enema 133 Ml Enema) 133 ml [place] ONCE PRN PRN Reason: constipation Nystatin (Nystatin Powder 15 Gm Bottle) 1 appl TOPICAL TID PENDING SALE TO [facility]; Protocol Last Admin: 12/17/21 08:41 Dose: 1 appl Documented By: MERCEDES Omeprazole (Omeprazole 20 Mg Capsule.Dr) 20 mg PO BID@0630,1630 PENDING SALE TO [facility] Last Admin: 12/17/21 06:03 Dose: 20 mg Documented By: SUSHANT Ondansetron HCl (Ondansetron Hcl 4 Mg/2 Ml Vial) 4 mg IVPUSH Q8H PRN PRN Reason: Nausea and Vomiting Pharmacy Consult (Consult Rx Perform Med Rec) 1 each MISCELLANE ONCE PRN PRN Reason: Consult order Polyethylene Glycol (Polyethylene Glycol 3350 17 Gm Powd.Pack) 17 gm PO DAILY PENDING SALE TO [facility] Last Admin: 12/17/21 08:39 Dose: 17 gm Documented By: MERCEDES Senna/Docusate Sodium (Sennosides/Docusate Sodium Tablet) 1 tab PO DAILY PENDING SALE TO [facility] Last Admin: 12/17/21 08:47 Dose: Not Given Documented By: MERCEDES Non-Admin Reason: Patient Refused Sodium Chloride (0.9 % Sodium Chloride Flush 3 Ml Syringe) 3 ml IVFLUSH QSHIFT PENDING SALE TO [facility] Last Admin: 12/17/21 08:44 Dose: 3 ml Documented By: MERCEDES Trazodone HCl (Trazodone Hcl 100 Mg Tablet) 200 mg PO BEDTIME PRN PRN Reason: Insomnia Last Admin: 12/16/21 20:44 Dose: 200 mg Documented By: SUSHANT Labs CBC & Chem 7: 12/15/21 05:18 12/15/21 05:18 Labs: Laboratory Results - last 24 hr 12/16/21 12/16/21 12/17/21 15:35 19:53 07:08 POC Glucose 169 H 157 H 129 H 12/17/21 11:41 POC Glucose 111 Assessment and Plan (1) Physical deconditioning: Status: Acute Plan 51 yo F who presented to ED with LE swelling, was awaiting STR placement but noted to have abd swelling and found to have hydronephrosis on abd CT that turns out to be chronic with decreased R kidney function Physical deconditioning Patient unable to ambulate or even stand up at this point from prolonged hospital stay and deconditioning Physical therapy, nursing staff are following with her with a plan to keep ambulating her and trying to get her up on her feet in order to place her to SNF or to go back home if she is able to climb the stairs. Constipation multiple BMs documented continue bowel regimen Right hand swelling Neg for VTE chronic LE edema US negative for VTE; likely due to obesity, anemia, hypoalbuminemia, and likely R-sided HF IV furosemide changed to oral Lasix chronic hypoxic resp failure likely 2/2 OHS, COPD + asthma overall better prn albuterol 1-2 liters nc at baseline chest/shoulder pain EKG normal and hs-Tn-I normal.? origin is MSK, likely shoulder impingement; continue lidocaine patch, PT/OT R hydronephrosis/proximal ureteral dilation Urology seen- no acute therapy indicated- chronic issue.? Lasix renogram showed diminished R renal function; normal on L.? outpt Uro f/u.? renal function stable. acute/chronic normocytic anemia likely anemia of CKD, improved s/p 1u pRBCs; normal iron studies/B12/FA H/H stable CKD3 Creatinine at baseline UTI treated with Ceftriaxone HTN continue amlodipine HLD continue atorvastatin L knee pain APAP for arthritis pain DM2 A1c 9.2, basal/bolus insulin hypothyroid TSH 20.29, increased LT4 200->250 mcg/d and repeat TSH in 6 wk mood disorder continue fluoxetine GERD PPI OUD Suboxone morbid obesity discussed importance of weight management as this is likely contributing to worsening of other comorbidities VTE ppx- UFH Continued hospitalization/dispo - seen by physical therapy; they recommend short-term rehab for optimal functional gains.? however, no STR beds are available in the state due to her weight + Suboxone use + Covid-19 unvaccinated status.? She declines Covid-19 vaccine due to judaism beliefs as a [employer]. ? CM broadening search.? PT and OT working with pt to gain ability to get up her stairs herself in which case she could go home with VNA at some point Quality Stroke Does the patient have a stroke diagnosis?: No VTE Prior VTE?: No VTE Risk Level:: Medical - moderate - high VTE Device Contraindication: Treatment Not Indicated VTE Drug Contraindication: N/A - Med Ordered
[2021-12-17 15:04] VITALS: BP 116/66; PULSE 76; RESP 18; TEMP 37.1; O2SAT 93
[2021-12-17 16:29] LABS: Glucose, Whole Blood 114 mg/dL (60-115)
[2021-12-17 19:11] VITALS: BP 119/60; PULSE 83; RESP 18; TEMP 36.8; O2SAT 95
[2021-12-17 19:54] LABS: Glucose, Whole Blood 125 mg/dL (60-115)
[2021-12-17] MEDS: traZODone HCL 100 MG TABLET 200 MG PO (21:17)
[2021-12-17] MEDS: Insulin Glargine,Hum.rec.anlog 100 UNIT/ML 10 ML VIAL 18 UNIT SUBCUT (21:18)
[2021-12-17] MEDS: Atorvastatin Calcium 80 MG TABLET PO (21:20)
[2021-12-17] MEDS: clonazePAM 0.5 MG TABLET PO (21:34)
[2021-12-17 23:07] VITALS: BP 152/75; PULSE 82; RESP 18; TEMP 36.4; O2SAT 95
[2021-12-18 03:09] VITALS: BP 128/67; PULSE 87; RESP 18; TEMP 36.2; O2SAT 97
[2021-12-18] MEDS: Levothyroxine Sodium 125 MCG TABLET 250 MCG PO (05:59)
[2021-12-18] MEDS: Omeprazole 20 MG CAPSULE.DR PO ×2 (05:59→17:47)
[2021-12-18] MEDS: Heparin Sodium,Porcine 5,000 UNIT/ML VIAL 5000 UNIT SUBCUT ×3 (06:00→21:51)
[2021-12-18 07:05] VITALS: BP 137/71; PULSE 77; RESP 12; TEMP 36.4; O2SAT 99
[2021-12-18 07:17] LABS: Glucose, Whole Blood 149 mg/dL (60-115)
[2021-12-18] MEDS: Insulin Lispro 100 UNIT/ML 3 ML VIAL SUBCUT ×4 (07:50→21:51)
[2021-12-18] MEDS: Loratadine 10 MG TABLET PO (07:51)
[2021-12-18] MEDS: Aspirin Enteric Coated 81 MG TABLET.DR PO (07:51)
[2021-12-18] MEDS: FLUoxetine HCl 20 MG CAPSULE 60 MG PO (07:51)
[2021-12-18] MEDS: Lidocaine 4 % Patch ADH..PATCH 1 PATCH TRANSDERMA (07:52)
[2021-12-18] MEDS: Sennosides/Docusate Sodium TABLET 1 TAB PO (07:52)
[2021-12-18] MEDS: Furosemide 40 MG TABLET PO ×2 (07:52→17:47)
[2021-12-18] MEDS: polyethylene glycoL 3350 17 GM POWD.PACK PO (07:53)
[2021-12-18] MEDS: Gabapentin 600 MG TABLET PO ×3 (07:53→21:51)
[2021-12-18] MEDS: Nystatin Powder 15 GM BOTTLE 1 APPL TOPICAL ×3 (07:54→21:51)
[2021-12-18] MEDS: Ammonium Lactate 12 % Lotion 226 GM BOTTLE 1 APPL TOPICAL ×2 (07:54→21:52)
[2021-12-18] MEDS: Buprenorphine/Naloxone 8/2 mg FILM 1 FILM SUBLINGUAL ×3 (07:55→21:51)
[2021-12-18] MEDS: amLODIPine Besylate 5 MG TABLET PO (07:56)
[2021-12-18] MEDS: clonazePAM 0.5 MG TABLET PO (08:08)
--- NOTE | 2021-12-18 09:44 | HO.PM.IMPN ---
Subjective Subjective Date of Service: 12/18/21 Interval History: no change, feels better, eing out of bed to new chair Review of Systems no fever no sob Physical Exam Vital Signs: Vital Signs: Last Vital Signs Temp 97.5 F 12/18/21 07:05 Pulse 77 12/18/21 07:05 Resp 12 12/18/21 07:05 BP 137/71 12/18/21 07:05 Pulse Ox 99 12/18/21 07:05 O2 Del Method 12/18/21 07:05 O2 Flow Rate 2 12/18/21 07:05 BMI result Body Mass Index 78.2 Const: Other: Constitutional : Morbidly obese, interactive, not in distress Neck : Normal inspection, Supple Cardiovascular : RRR, no JVP, trace bilateral lower extremity edema Respiratory : fair bilateral air entry, basal fine crackles, wheezes or rhonchi, oxygen supplement Gastrointestinal: soft, lax, Normal bowel sounds, Non tender Skin : Warm, Dry, bilateral chronic stasis dermatitis changes Neurological : Alert & oriented x3, No focal deficit , CN 2-12 within normal Objective Data Active Medications Acetaminophen (Acetaminophen 325 Mg Tablet) 650 mg PO Q6H PRN PRN Reason: Pain, Mild (Pain Scale 1-3) Last Admin: 12/17/21 21:33 Dose: 650 mg Documented By: SUSHANT Albuterol Sulfate (Albuterol Sulfate 90 Mcg 8 Gm Inhaler) 2 puff INHALE Q4H PRN PRN Reason: wheezing Amlodipine Besylate (Amlodipine Besylate 5 Mg Tablet) 5 mg PO DAILY [facility]; Protocol Last Admin: 12/18/21 07:56 Dose: 5 mg Documented By: LEXA Aspirin (Aspirin Enteric Coated 81 Mg Tablet.) 81 mg PO DAILY [facility] Last Admin: 12/18/21 07:51 Dose: 81 mg Documented By: LEXA Atorvastatin Calcium (Atorvastatin Calcium 80 Mg Tablet) 80 mg PO BEDTIME [facility] Last Admin: 12/17/21 21:20 Dose: 80 mg Documented By: SUSHANT Buprenorphine/Naloxone (Buprenorphine/Naloxone 8/2 Mg Film) 1 film SUBLINGUAL TID [facility] Last Admin: 12/18/21 07:55 Dose: 1 film Documented By: LEXA Clonazepam (Clonazepam 0.5 Mg Tablet) 0.5 mg PO DAILY PRN PRN Reason: anxiety/restlessness Last Admin: 12/18/21 08:08 Dose: 0.5 mg Documented By: LEXA Fluoxetine HCl (Fluoxetine Hcl 20 Mg Capsule) 60 mg PO DAILY [facility] Last Admin: 12/18/21 07:51 Dose: 60 mg Documented By: LEXA Furosemide (Furosemide 40 Mg Tablet) 40 mg PO BID@0900,1800 [facility]; Protocol Last Admin: 12/18/21 07:52 Dose: 40 mg Documented By: LEXA Gabapentin (Gabapentin 600 Mg Tablet) 600 mg PO TID [facility] Last Admin: 12/18/21 07:53 Dose: 600 mg Documented By: LEXA Heparin Sodium (Porcine) (Heparin Sodium,Porcine 5,000 Unit/Ml Vial) 5,000 unit SUBCUT Q8H [facility] Last Admin: 12/18/21 06:00 Dose: 5,000 unit Documented By: SUSHANT Ibuprofen (Ibuprofen 400 Mg Tablet) 400 mg PO Q6H PRN PRN Reason: moderate pain Last Admin: 12/17/21 21:34 Dose: 400 mg Documented By: SUSHANT Insulin Glargine (Insulin Glargine,Hum.Rec.Anlog 100 Unit/Ml 10 Ml Vial) 18 unit SUBCUT BEDTIME [facility] Last Admin: 12/17/21 21:18 Dose: 18 unit Documented By: SUSHANT Insulin Human Lispro (Insulin Lispro 100 Unit/Ml 3 Ml Vial) 0 unit SUBCUT QIDACHS [facility]; Protocol Last Admin: 12/18/21 07:34 Dose: Not Given Documented By: LEXA Non-Admin Reason: No Insulin Coverage Insulin Human Lispro (Insulin Lispro 100 Unit/Ml 3 Ml Vial) 5 unit SUBCUT QIDACHS [facility] Last Admin: 12/18/21 07:50 Dose: 5 unit Documented By: LEXA Lactic Acid (Ammonium Lactate 12 % Lotion 226 Gm Bottle) 1 appl TOPICAL BID [facility]; Protocol Last Admin: 12/18/21 07:54 Dose: 1 appl Documented By: LEXA Levothyroxine Sodium (Levothyroxine Sodium 125 Mcg Tablet) 250 mcg PO DAILY@0630 [facility] Last Admin: 12/18/21 05:59 Dose: 250 mcg Documented By: SUSHANT Lidocaine (Lidocaine 4 % Patch Adh..Patch) 1 patch TRANSDERMA DAILY [facility]; Protocol Last Admin: 12/18/21 07:52 Dose: 1 patch Documented By: LEXA Lidocaine (Lidocaine 4 % Patch Adh..Patch) 1 patch TRANSDERMA DAILY [facility]; Protocol Last Admin: 12/18/21 07:56 Dose: Not Given Documented By: LEXA Non-Admin Reason: Patient Refused Loratadine (Loratadine 10 Mg Tablet) 10 mg PO DAILY [facility] Last Admin: 12/18/21 07:51 Dose: 10 mg Documented By: LEXA Magnesium Hydroxide (Milk Of Magnesia 30 Ml Oral.Susp) 15 ml PO BEDTIME PRN PRN Reason: Constipation Last Admin: 11/30/21 19:34 Dose: 15 ml Documented By: ADINA Mineral Oil (Mineral Oil Enema 133 Ml Enema) 133 ml SD ONCE PRN PRN Reason: constipation Nystatin (Nystatin Powder 15 Gm Bottle) 1 appl TOPICAL TID [facility]; Protocol Last Admin: 12/18/21 07:54 Dose: 1 appl Documented By: LEXA Omeprazole (Omeprazole 20 Mg Capsule.) 20 mg PO BID@0630,1630 [facility] Last Admin: 12/18/21 05:59 Dose: 20 mg Documented By: SUSHANT Ondansetron HCl (Ondansetron Hcl 4 Mg/2 Ml Vial) 4 mg IVPUSH Q8H PRN PRN Reason: Nausea and Vomiting Pharmacy Consult (Consult Rx Perform Med Rec) 1 each MISCELLANE ONCE PRN PRN Reason: Consult order Polyethylene Glycol (Polyethylene Glycol 3350 17 Gm Powd.Pack) 17 gm PO DAILY [facility] Last Admin: 12/18/21 07:53 Dose: 17 gm Documented By: LEXA Senna/Docusate Sodium (Sennosides/Docusate Sodium Tablet) 1 tab PO DAILY [facility] Last Admin: 12/18/21 07:52 Dose: 1 tab Documented By: LEXA Sodium Chloride (0.9 % Sodium Chloride Flush 3 Ml Syringe) 3 ml IVFLUSH QSHIFT [facility] Last Admin: 12/18/21 07:51 Dose: Not Given Documented By: LEXA Non-Admin Reason: No Access Trazodone HCl (Trazodone Hcl 100 Mg Tablet) 200 mg PO BEDTIME PRN PRN Reason: Insomnia Last Admin: 12/17/21 21:17 Dose: 200 mg Documented By: SUSHANT Labs CBC & Chem 7: 12/15/21 05:18 12/15/21 05:18 Labs: Laboratory Results - last 24 hr 12/17/21 12/17/21 12/17/21 11:41 15:02 19:13 POC Glucose 111 114 125 H 12/18/21 07:07 POC Glucose 149 H Assessment and Plan (1) Physical deconditioning: Status: Acute Plan 51 yo F who presented to ED with LE swelling, was awaiting STR placement but noted to have abd swelling and found to have hydronephrosis on abd CT that turns out to be chronic with decreased R kidney function Physical deconditioning Patient unable to ambulate or even stand up at this point from prolonged hospital stay and deconditioning Physical therapy, nursing staff are following with her with a plan to keep ambulating her and trying to get her up on her feet in order to place her to SNF or to go back home if she is able to climb the stairs. Constipation multiple BMs documented continue bowel regimen Right hand swelling Neg for VTE chronic LE edema US negative for VTE; likely due to obesity, anemia, hypoalbuminemia, and likely R-sided HF oral Lasix chronic hypoxic resp failure likely 2/2 OHS, COPD + asthma overall better prn albuterol 1-2 liters nc at baseline chest/shoulder pain EKG normal and hs-Tn-I normal.? origin is MSK, likely shoulder impingement; continue lidocaine patch, PT/OT R hydronephrosis/proximal ureteral dilation Urology seen- no acute therapy indicated- chronic issue.? Lasix renogram showed diminished R renal function; normal on L.? outpt Uro f/u.? renal function stable. acute/chronic normocytic anemia likely anemia of CKD, improved s/p 1u pRBCs; normal iron studies/B12/FA H/H stable CKD3 Creatinine at baseline UTI treated with Ceftriaxone HTN continue amlodipine HLD continue atorvastatin L knee pain APAP for arthritis pain DM2 A1c 9.2, basal/bolus insulin hypothyroid TSH 20.29, increased LT4 200->250 mcg/d and repeat TSH in 6 wk mood disorder continue fluoxetine GERD PPI OUD Suboxone morbid obesity discussed importance of weight management as this is likely contributing to worsening of other comorbidities VTE ppx- UFH Continued hospitalization/dispo - seen by physical therapy; they recommend short-term rehab for optimal functional gains.? however, no STR beds are available in the state due to her weight + Suboxone use + Covid-19 unvaccinated status.? 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 ? CM broadening search.? PT and OT working with pt to gain ability to get up her stairs herself in which case she could go home with VNA at some point Quality Stroke Does the patient have a stroke diagnosis?: No VTE Prior VTE?: No VTE Risk Level:: Medical - moderate - high VTE Device Contraindication: Treatment Not Indicated VTE Drug Contraindication: N/A - Med Ordered
[2021-12-18 11:16] VITALS: BP 154/83; PULSE 74; RESP 12; TEMP 36.3; O2SAT 96
[2021-12-18 11:30] LABS: Glucose, Whole Blood 115 mg/dL (60-115)
[2021-12-18 15:33] LABS: Glucose, Whole Blood 134 mg/dL (60-115)
[2021-12-18 16:00] VITALS: BP 135/62; PULSE 76; RESP 18; TEMP 36.2; O2SAT 98
[2021-12-18 20:00] VITALS: BP 137/71; PULSE 78; RESP 18; TEMP 36.6; O2SAT 96
[2021-12-18 20:35] LABS: Glucose, Whole Blood 140 mg/dL (60-115)
[2021-12-18] MEDS: Atorvastatin Calcium 80 MG TABLET PO (21:51)
[2021-12-18] MEDS: traZODone HCL 100 MG TABLET 200 MG PO (21:51)
[2021-12-18] MEDS: Insulin Glargine,Hum.rec.anlog 100 UNIT/ML 10 ML VIAL 18 UNIT SUBCUT (21:52)
[2021-12-18 23:25] VITALS: BP 133/64; PULSE 84; RESP 18; TEMP 36.2; O2SAT 95
[2021-12-19] VITALS (7 sets, daily range): BP systolic 121–145; BP diastolic 60–77; PULSE 78–88; RESP 14–19; TEMP 36–37; O2SAT 90–96
[2021-12-19] MEDS: Omeprazole 20 MG CAPSULE.DR PO ×2 (05:50→17:19)
[2021-12-19] MEDS: Levothyroxine Sodium 125 MCG TABLET 250 MCG PO (05:50)
[2021-12-19] MEDS: Heparin Sodium,Porcine 5,000 UNIT/ML VIAL 5000 UNIT SUBCUT ×3 (05:51→21:42)
[2021-12-19 07:42] LABS: Glucose, Whole Blood 160 mg/dL (60-115)
[2021-12-19] MEDS: Insulin Lispro 100 UNIT/ML 3 ML VIAL SUBCUT ×5 (08:12→21:41)
[2021-12-19] MEDS: amLODIPine Besylate 5 MG TABLET PO (08:13)
[2021-12-19] MEDS: Gabapentin 600 MG TABLET PO ×3 (08:13→21:40)
[2021-12-19] MEDS: Lidocaine 4 % Patch ADH..PATCH 1 PATCH TRANSDERMA (08:13)
[2021-12-19] MEDS: FLUoxetine HCl 20 MG CAPSULE 60 MG PO (08:14)
[2021-12-19] MEDS: Buprenorphine/Naloxone 8/2 mg FILM 1 FILM SUBLINGUAL ×3 (08:14→21:41)
[2021-12-19] MEDS: Aspirin Enteric Coated 81 MG TABLET.DR PO (08:14)
[2021-12-19] MEDS: Loratadine 10 MG TABLET PO (08:14)
[2021-12-19] MEDS: clonazePAM 0.5 MG TABLET PO (08:14)
[2021-12-19] MEDS: Furosemide 40 MG TABLET PO ×2 (08:14→17:18)
[2021-12-19] MEDS: Ammonium Lactate 12 % Lotion 226 GM BOTTLE 1 APPL TOPICAL ×2 (08:16→21:42)
[2021-12-19 11:35] LABS: Glucose, Whole Blood 116 mg/dL (60-115)
[2021-12-19] MEDS: Ibuprofen 400 MG TABLET PO (11:50)
[2021-12-19] MEDS: Acetaminophen 325 MG TABLET 650 MG PO (11:50)
--- NOTE | 2021-12-19 13:35 | HO.PM.IMPN ---
Subjective Subjective Date of Service: 12/19/21 Interval History: Laying in bed, feels comfortable overall Feels little bit stronger as she is tolerating physical therapy sessions Able to stand up with help yesterday and sitting in the chair No reported other overnight events. Systemic review: No fever, chills or weakness No chest pain, palpitation No shortness of breath or coughing No abdominal pain, nausea or vomiting No urinary symptoms Joint pain in her knees Lower extremity chronic rash Physical Exam Vital Signs: Vital Signs: Last Vital Signs Temp 97.5 F 12/19/21 12:00 Pulse 82 12/19/21 12:00 Resp 19 12/19/21 12:00 BP 138/73 12/19/21 12:00 Pulse Ox 96 12/19/21 11:03 O2 Del Method 12/19/21 12:00 O2 Flow Rate 2 12/19/21 12:00 BMI result Body Mass Index 78.2 Const: Other: Constitutional : Morbidly obese, interactive, not in distress Neck : Normal inspection, Supple Cardiovascular : RRR, no JVP, trace bilateral lower extremity edema Respiratory : fair bilateral air entry, basal fine crackles, wheezes or rhonchi, oxygen supplement Gastrointestinal: soft, lax, Normal bowel sounds, Non tender Skin : Warm, Dry, bilateral chronic stasis dermatitis changes Neurological : Alert & oriented x3, No focal deficit , CN 2-12 within normal Objective Data Active Medications Acetaminophen (Acetaminophen 325 Mg Tablet) 650 mg PO Q6H PRN PRN Reason: Pain, Mild (Pain Scale 1-3) Last Admin: 12/19/21 11:50 Dose: 650 mg Documented By: AARON Albuterol Sulfate (Albuterol Sulfate 90 Mcg 8 Gm Inhaler) 2 puff INHALE Q4H PRN PRN Reason: wheezing Amlodipine Besylate (Amlodipine Besylate 5 Mg Tablet) 5 mg PO DAILY [facility]; Protocol Last Admin: 12/19/21 08:13 Dose: 5 mg Documented By: AARON Aspirin (Aspirin Enteric Coated 81 Mg Tablet.) 81 mg PO DAILY [facility] Last Admin: 12/19/21 08:14 Dose: 81 mg Documented By: AARON Atorvastatin Calcium (Atorvastatin Calcium 80 Mg Tablet) 80 mg PO BEDTIME [facility] Last Admin: 12/18/21 21:51 Dose: 80 mg Documented By: PERFECTO Buprenorphine/Naloxone (Buprenorphine/Naloxone 8/2 Mg Film) 1 film SUBLINGUAL TID [facility] Last Admin: 12/19/21 08:14 Dose: 1 film Documented By: AARON Clonazepam (Clonazepam 0.5 Mg Tablet) 0.5 mg PO DAILY PRN PRN Reason: anxiety/restlessness Last Admin: 12/19/21 08:14 Dose: 0.5 mg Documented By: AARON Fluoxetine HCl (Fluoxetine Hcl 20 Mg Capsule) 60 mg PO DAILY [facility] Last Admin: 12/19/21 08:14 Dose: 60 mg Documented By: AARON Furosemide (Furosemide 40 Mg Tablet) 40 mg PO BID@0900,1800 [facility]; Protocol Last Admin: 12/19/21 08:14 Dose: 40 mg Documented By: AARON Gabapentin (Gabapentin 600 Mg Tablet) 600 mg PO TID [facility] Last Admin: 12/19/21 08:13 Dose: 600 mg Documented By: AARON Heparin Sodium (Porcine) (Heparin Sodium,Porcine 5,000 Unit/Ml Vial) 5,000 unit SUBCUT Q8H [facility] Last Admin: 12/19/21 05:51 Dose: 5,000 unit Documented By: PERFECTO Ibuprofen (Ibuprofen 400 Mg Tablet) 400 mg PO Q6H PRN PRN Reason: moderate pain Last Admin: 12/19/21 11:50 Dose: 400 mg Documented By: AARON Insulin Glargine (Insulin Glargine,Hum.Rec.Anlog 100 Unit/Ml 10 Ml Vial) 18 unit SUBCUT BEDTIME [facility] Last Admin: 12/18/21 21:52 Dose: 18 unit Documented By: PERFECTO Insulin Human Lispro (Insulin Lispro 100 Unit/Ml 3 Ml Vial) 0 unit SUBCUT QIDACHS [facility]; Protocol Last Admin: 12/19/21 11:42 Dose: Not Given Documented By: AARON Non-Admin Reason: No Insulin Coverage Insulin Human Lispro (Insulin Lispro 100 Unit/Ml 3 Ml Vial) 5 unit SUBCUT QIDACHS [facility] Last Admin: 12/19/21 11:49 Dose: 5 unit Documented By: AARON Lactic Acid (Ammonium Lactate 12 % Lotion 226 Gm Bottle) 1 appl TOPICAL BID [facility]; Protocol Last Admin: 12/19/21 08:16 Dose: 1 appl Documented By: AARON Levothyroxine Sodium (Levothyroxine Sodium 125 Mcg Tablet) 250 mcg PO DAILY@0630 [facility] Last Admin: 12/19/21 05:50 Dose: 250 mcg Documented By: PERFECTO Lidocaine (Lidocaine 4 % Patch Adh..Patch) 1 patch TRANSDERMA DAILY [facility]; Protocol Last Admin: 12/19/21 08:13 Dose: 1 patch Documented By: AARON Lidocaine (Lidocaine 4 % Patch Adh..Patch) 1 patch TRANSDERMA DAILY [facility]; Protocol Last Admin: 12/19/21 08:14 Dose: Not Given Documented By: AARON Non-Admin Reason: Patient Refused Loratadine (Loratadine 10 Mg Tablet) 10 mg PO DAILY [facility] Last Admin: 12/19/21 08:14 Dose: 10 mg Documented By: AARON Magnesium Hydroxide (Milk Of Magnesia 30 Ml Oral.Susp) 15 ml PO BEDTIME PRN PRN Reason: Constipation Last Admin: 11/30/21 19:34 Dose: 15 ml Documented By: ADINA Mineral Oil (Mineral Oil Enema 133 Ml Enema) 133 ml PA ONCE PRN PRN Reason: constipation Nystatin (Nystatin Powder 15 Gm Bottle) 1 appl TOPICAL TID [facility]; Protocol Last Admin: 12/19/21 11:29 Dose: Not Given Documented By: AARON Non-Admin Reason: Med Not Available Omeprazole (Omeprazole 20 Mg Capsule.) 20 mg PO BID@0630,1630 [facility] Last Admin: 12/19/21 05:50 Dose: 20 mg Documented By: PERFECTO Ondansetron HCl (Ondansetron Hcl 4 Mg/2 Ml Vial) 4 mg IVPUSH Q8H PRN PRN Reason: Nausea and Vomiting Pharmacy Consult (Consult Rx Perform Med Rec) 1 each MISCELLANE ONCE PRN PRN Reason: Consult order Polyethylene Glycol (Polyethylene Glycol 3350 17 Gm Powd.Pack) 17 gm PO DAILY [facility] Last Admin: 12/19/21 08:15 Dose: Not Given Documented By: AARON Non-Admin Reason: Patient Refused Senna/Docusate Sodium (Sennosides/Docusate Sodium Tablet) 1 tab PO DAILY [facility] Last Admin: 12/19/21 08:15 Dose: Not Given Documented By: AARON Non-Admin Reason: Patient Refused Sodium Chloride (0.9 % Sodium Chloride Flush 3 Ml Syringe) 3 ml IVFLUSH QSHIFT [facility] Last Admin: 12/19/21 07:14 Dose: Not Given Documented By: AARON Non-Admin Reason: No Access Trazodone HCl (Trazodone Hcl 100 Mg Tablet) 200 mg PO BEDTIME PRN PRN Reason: Insomnia Last Admin: 12/18/21 21:51 Dose: 200 mg Documented By: PERFECTO Labs CBC & Chem 7: 12/15/21 05:18 12/15/21 05:18 Labs: Laboratory Results - last 24 hr 12/18/21 12/18/21 12/19/21 15:24 20:30 07:33 POC Glucose 134 H 140 H 160 H 12/19/21 11:19 POC Glucose 116 H Assessment and Plan (1) Physical deconditioning: Status: Acute Plan 51 yo F who presented to ED with LE swelling, was awaiting STR placement but noted to have abd swelling and found to have hydronephrosis on abd CT that turns out to be chronic with decreased R kidney function Physical deconditioning Patient unable to ambulate or even stand up at this point from prolonged hospital stay and deconditioning Physical therapy, nursing staff are following with her with a plan to keep ambulating her and trying to get her up on her feet in order to place her to SNF or to go back home if she is able to climb the stairs. Constipation multiple BMs documented continue bowel regimen Right hand swelling Neg for VTE chronic LE edema US negative for VTE; likely due to obesity, anemia, hypoalbuminemia, and likely R-sided HF IV furosemide changed to oral Lasix chronic hypoxic resp failure likely 2/2 OHS, COPD + asthma overall better prn albuterol 1-2 liters nc at baseline chest/shoulder pain EKG normal and hs-Tn-I normal.? origin is MSK, likely shoulder impingement; continue lidocaine patch, PT/OT R hydronephrosis/proximal ureteral dilation Urology seen- no acute therapy indicated- chronic issue.? Lasix renogram showed diminished R renal function; normal on L.? outpt Uro f/u.? renal function stable. acute/chronic normocytic anemia likely anemia of CKD, improved s/p 1u pRBCs; normal iron studies/B12/FA H/H stable CKD3 Creatinine at baseline UTI treated with Ceftriaxone HTN continue amlodipine HLD continue atorvastatin L knee pain APAP for arthritis pain DM2 A1c 9.2, basal/bolus insulin hypothyroid TSH 20.29, increased LT4 200->250 mcg/d and repeat TSH in 6 wk mood disorder continue fluoxetine GERD PPI OUD Suboxone morbid obesity discussed importance of weight management as this is likely contributing to worsening of other comorbidities VTE ppx- UFH Continued hospitalization/dispo - seen by physical therapy; they recommend short-term rehab for optimal functional gains.? however, no STR beds are available in the state due to her weight + Suboxone use + Covid-19 unvaccinated status.? 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 ? CM broadening search.? PT and OT working with pt to gain ability to get up her stairs herself in which case she could go home with VNA at some point Quality Stroke Does the patient have a stroke diagnosis?: No VTE Prior VTE?: No VTE Risk Level:: Medical - moderate - high VTE Device Contraindication: Treatment Not Indicated VTE Drug Contraindication: N/A - Med Ordered
[2021-12-19 17:13] LABS: Glucose, Whole Blood 140 mg/dL (60-115)
[2021-12-19 20:25] LABS: Glucose, Whole Blood 123 mg/dL (60-115)
[2021-12-19] MEDS: Atorvastatin Calcium 80 MG TABLET PO (21:40)
[2021-12-19] MEDS: traZODone HCL 100 MG TABLET 200 MG PO (21:40)
[2021-12-19] MEDS: Insulin Glargine,Hum.rec.anlog 100 UNIT/ML 10 ML VIAL 18 UNIT SUBCUT (21:41)
[2021-12-19] MEDS: Nystatin Powder 15 GM BOTTLE 1 APPL TOPICAL (21:42)
[2021-12-20] VITALS (7 sets, daily range): BP systolic 109–134; BP diastolic 56–69; PULSE 76–82; RESP 14–18; TEMP 36.1–36.7; O2SAT 91–97
[2021-12-20] MEDS: Omeprazole 20 MG CAPSULE.DR PO ×2 (06:31→17:02)
[2021-12-20] MEDS: Levothyroxine Sodium 125 MCG TABLET 250 MCG PO (06:31)
[2021-12-20] MEDS: Heparin Sodium,Porcine 5,000 UNIT/ML VIAL 5000 UNIT SUBCUT ×2 (06:31→15:08)
[2021-12-20 07:13] LABS: Glucose, Whole Blood 153 mg/dL (60-115)
[2021-12-20] MEDS: Acetaminophen 325 MG TABLET 650 MG PO ×2 (07:52→20:37)
[2021-12-20] MEDS: Lidocaine 4 % Patch ADH..PATCH 1 PATCH TRANSDERMA (07:52)
[2021-12-20] MEDS: Loratadine 10 MG TABLET PO (07:53)
[2021-12-20] MEDS: clonazePAM 0.5 MG TABLET PO (07:53)
[2021-12-20] MEDS: amLODIPine Besylate 5 MG TABLET PO (07:53)
[2021-12-20] MEDS: Furosemide 40 MG TABLET PO ×2 (07:53→17:02)
[2021-12-20] MEDS: Aspirin Enteric Coated 81 MG TABLET.DR PO (07:53)
[2021-12-20] MEDS: Buprenorphine/Naloxone 8/2 mg FILM 1 FILM SUBLINGUAL ×3 (07:53→20:40)
[2021-12-20] MEDS: FLUoxetine HCl 20 MG CAPSULE 60 MG PO (07:53)
[2021-12-20] MEDS: Gabapentin 600 MG TABLET PO ×3 (07:53→20:37)
[2021-12-20] MEDS: Nystatin Powder 15 GM BOTTLE 1 APPL TOPICAL ×3 (07:54→20:39)
[2021-12-20] MEDS: Insulin Lispro 100 UNIT/ML 3 ML VIAL SUBCUT ×6 (07:54→20:38)
[2021-12-20] MEDS: Ammonium Lactate 12 % Lotion 226 GM BOTTLE 1 APPL TOPICAL ×2 (07:54→20:39)
[2021-12-20] MEDS: Ibuprofen 400 MG TABLET PO (07:56)
[2021-12-20 11:13] LABS: Glucose, Whole Blood 126 mg/dL (60-115)
--- NOTE | 2021-12-20 11:43 | P.PNIM_ITS ---
Subjective Subjective Date of Service: 12/20/21 Interval History: Laying in bed, feels comfortable overall Feels little bit stronger as she is tolerating physical therapy sessions Able to stand up with help yesterday and sitting in the chair No reported other overnight events. Systemic review: No fever, chills or weakness No chest pain, palpitation No shortness of breath or coughing No abdominal pain, nausea or vomiting No urinary symptoms Joint pain in her knees Lower extremity chronic rash Physical Exam Vital Signs: Vital Signs: Last Vital Signs Temp 97.0 F 12/20/21 07:39 Pulse 82 12/20/21 07:39 Resp 16 12/20/21 07:39 BP 128/61 12/20/21 07:39 Pulse Ox 95 12/20/21 07:39 O2 Del Method 12/20/21 07:39 O2 Flow Rate 2 12/20/21 07:39 BMI result Body Mass Index 78.2 Const: Other: Constitutional : Morbidly obese, interactive, not in distress Neck : Normal inspection, Supple Cardiovascular : RRR, no JVP, trace bilateral lower extremity edema Respiratory : fair bilateral air entry, basal fine crackles, wheezes or rhonchi, oxygen supplement Gastrointestinal: soft, lax, Normal bowel sounds, Non tender Skin : Warm, Dry, bilateral chronic stasis dermatitis changes Neurological : Alert & oriented x3, No focal deficit , CN 2-12 within normal Objective Data Active Medications Acetaminophen (Acetaminophen 325 Mg Tablet) 650 mg PO Q6H PRN PRN Reason: Pain, Mild (Pain Scale 1-3) Last Admin: 12/20/21 07:52 Dose: 650 mg Documented By: AARON Albuterol Sulfate (Albuterol Sulfate 90 Mcg 8 Gm Inhaler) 2 puff INHALE Q4H PRN PRN Reason: wheezing Amlodipine Besylate (Amlodipine Besylate 5 Mg Tablet) 5 mg PO DAILY [facility]; Protocol Last Admin: 12/20/21 07:53 Dose: 5 mg Documented By: AARON Aspirin (Aspirin Enteric Coated 81 Mg Tablet.) 81 mg PO DAILY [facility] Last Admin: 12/20/21 07:53 Dose: 81 mg Documented By: AARON Atorvastatin Calcium (Atorvastatin Calcium 80 Mg Tablet) 80 mg PO BEDTIME [facility] Last Admin: 12/19/21 21:40 Dose: 80 mg Documented By: PERFECTO Buprenorphine/Naloxone (Buprenorphine/Naloxone 8/2 Mg Film) 1 film SUBLINGUAL TID [facility] Last Admin: 12/20/21 07:53 Dose: 1 film Documented By: AARON Clonazepam (Clonazepam 0.5 Mg Tablet) 0.5 mg PO DAILY PRN PRN Reason: anxiety/restlessness Last Admin: 12/20/21 07:53 Dose: 0.5 mg Documented By: AARON Fluoxetine HCl (Fluoxetine Hcl 20 Mg Capsule) 60 mg PO DAILY [facility] Last Admin: 12/20/21 07:53 Dose: 60 mg Documented By: AARON Furosemide (Furosemide 40 Mg Tablet) 40 mg PO BID@0900,1800 [facility]; Protocol Last Admin: 12/20/21 07:53 Dose: 40 mg Documented By: AARON Gabapentin (Gabapentin 600 Mg Tablet) 600 mg PO TID [facility] Last Admin: 12/20/21 07:53 Dose: 600 mg Documented By: AARON Heparin Sodium (Porcine) (Heparin Sodium,Porcine 5,000 Unit/Ml Vial) 5,000 unit SUBCUT Q8H [facility] Last Admin: 12/20/21 06:31 Dose: 5,000 unit Documented By: PERFECTO Ibuprofen (Ibuprofen 400 Mg Tablet) 400 mg PO Q6H PRN PRN Reason: moderate pain Last Admin: 12/20/21 07:56 Dose: 400 mg Documented By: AARON Insulin Glargine (Insulin Glargine,Hum.Rec.Anlog 100 Unit/Ml 10 Ml Vial) 18 unit SUBCUT BEDTIME [facility] Last Admin: 12/19/21 21:41 Dose: 18 unit Documented By: PERFECTO Insulin Human Lispro (Insulin Lispro 100 Unit/Ml 3 Ml Vial) 0 unit SUBCUT QIDACHS [facility]; Protocol Last Admin: 12/20/21 07:54 Dose: 2 unit Documented By: AARON Insulin Human Lispro (Insulin Lispro 100 Unit/Ml 3 Ml Vial) 5 unit SUBCUT QIDACHS [facility] Last Admin: 12/20/21 07:55 Dose: 5 unit Documented By: AARON Lactic Acid (Ammonium Lactate 12 % Lotion 226 Gm Bottle) 1 appl TOPICAL BID [facility]; Protocol Last Admin: 12/20/21 07:54 Dose: 1 appl Documented By: AARON Levothyroxine Sodium (Levothyroxine Sodium 125 Mcg Tablet) 250 mcg PO DAILY@0630 [facility] Last Admin: 12/20/21 06:31 Dose: 250 mcg Documented By: PERFECTO Lidocaine (Lidocaine 4 % Patch Adh..Patch) 1 patch TRANSDERMA DAILY [facility]; Protocol Last Admin: 12/20/21 07:52 Dose: 1 patch Documented By: AARON Lidocaine (Lidocaine 4 % Patch Adh..Patch) 1 patch TRANSDERMA DAILY [facility]; Protocol Last Admin: 12/20/21 07:54 Dose: Not Given Documented By: AARON Non-Admin Reason: Patient Refused Loratadine (Loratadine 10 Mg Tablet) 10 mg PO DAILY [facility] Last Admin: 12/20/21 07:53 Dose: 10 mg Documented By: AARON Magnesium Hydroxide (Milk Of Magnesia 30 Ml Oral.Susp) 15 ml PO BEDTIME PRN PRN Reason: Constipation Last Admin: 11/30/21 19:34 Dose: 15 ml Documented By: ADINA Mineral Oil (Mineral Oil Enema 133 Ml Enema) 133 ml [place] ONCE PRN PRN Reason: constipation Nystatin (Nystatin Powder 15 Gm Bottle) 1 appl TOPICAL TID [facility]; Protocol Last Admin: 12/20/21 07:54 Dose: 1 appl Documented By: AARON Omeprazole (Omeprazole 20 Mg Capsule.) 20 mg PO BID@0630,1630 [facility] Last Admin: 12/20/21 06:31 Dose: 20 mg Documented By: PERFECTO Ondansetron HCl (Ondansetron Hcl 4 Mg/2 Ml Vial) 4 mg IVPUSH Q8H PRN PRN Reason: Nausea and Vomiting Pharmacy Consult (Consult Rx Perform Med Rec) 1 each MISCELLANE ONCE PRN PRN Reason: Consult order Polyethylene Glycol (Polyethylene Glycol 3350 17 Gm Powd.Pack) 17 gm PO DAILY [facility] Last Admin: 12/20/21 07:55 Dose: Not Given Documented By: AARON Non-Admin Reason: Patient Refused Senna/Docusate Sodium (Sennosides/Docusate Sodium Tablet) 1 tab PO DAILY [facility] Last Admin: 12/20/21 07:55 Dose: Not Given Documented By: AARON Non-Admin Reason: Patient Refused Sodium Chloride (0.9 % Sodium Chloride Flush 3 Ml Syringe) 3 ml IVFLUSH QSHIFT [facility] Last Admin: 12/20/21 07:55 Dose: Not Given Documented By: AARON Non-Admin Reason: No Access Trazodone HCl (Trazodone Hcl 100 Mg Tablet) 200 mg PO BEDTIME PRN PRN Reason: Insomnia Last Admin: 12/19/21 21:40 Dose: 200 mg Documented By: PERFECTO Labs CBC & Chem 7: 12/15/21 05:18 12/15/21 05:18 Labs: Laboratory Results - last 24 hr 12/19/21 12/19/21 12/20/21 16:57 20:20 07:08 POC Glucose 140 H 123 H 153 H 12/20/21 11:07 POC Glucose 126 H Assessment and Plan (1) Physical deconditioning: Status: Acute Plan 51 yo F who presented to ED with LE swelling, was awaiting STR placement but noted to have abd swelling and found to have hydronephrosis on abd CT that turns out to be chronic with decreased R kidney function Physical deconditioning Patient unable to ambulate or even stand up at this point from prolonged hospit al stay and deconditioning Physical therapy, nursing staff are following with her with a plan to keep ambulating her and trying to get her up on her feet in order to place her to SNF or to go back home if she is able to climb the stairs. morbid obesity discussed importance of weight management as this is likely contributing to worsening of other comorbidities will reweight her today for placement purposes Constipation multiple BMs documented continue bowel regimen Right hand swelling Neg for VTE chronic LE edema US negative for VTE; likely due to obesity, anemia, hypoalbuminemia, and likely R-sided HF IV furosemide changed to oral Lasix chronic hypoxic resp failure likely 2/2 OHS, COPD + asthma overall better prn albuterol 1-2 liters nc at baseline chest/shoulder pain EKG normal and hs-Tn-I normal.? origin is MSK, likely shoulder impingement; continue lidocaine patch, PT/OT R hydronephrosis/proximal ureteral dilation Urology seen- no acute therapy indicated- chronic issue.? Lasix renogram showed diminished R renal function; normal on L.? outpt Uro f/u.? renal function st able. acute/chronic normocytic anemia likely anemia of CKD, improved s/p 1u pRBCs; normal iron studies/B12/FA H/H stable CKD3 Creatinine at baseline UTI treated with Ceftriaxone HTN continue amlodipine HLD continue atorvastatin L knee pain APAP for arthritis pain DM2 A1c 9.2, basal/bolus insulin hypothyroid TSH 20.29, increased LT4 200->250 mcg/d and repeat TSH in 6 wk mood disorder continue fluoxetine GERD PPI OUD Suboxone VTE ppx- UFH Continued hospitalization/dispo - seen by physical therapy; they recommend short-term rehab for optimal functional gains.? however, no STR beds are available in the state due to her weight + Suboxone use + Covid-19 unvaccinated status.? She declines Covid-19 vaccine due to taoist beliefs as a Rastafarian. ? CM broadening search.? PT and OT working with pt to gain ability to get up her stairs herself in which case she could go home with VNA at some point Quality Stroke Does the patient have a stroke diagnosis?: No VTE Prior VTE?: No VTE Risk Level:: Medical - moderate - high VTE Device Contraindication: Treatment Not Indicated VTE Drug Contraindication: N/A - Med Ordered
[2021-12-20 16:18] LABS: Glucose, Whole Blood 172 mg/dL (60-115)
[2021-12-20 20:23] LABS: Glucose, Whole Blood 134 mg/dL (60-115)
[2021-12-20] MEDS: Atorvastatin Calcium 80 MG TABLET PO (20:37)
[2021-12-20] MEDS: Insulin Glargine,Hum.rec.anlog 100 UNIT/ML 10 ML VIAL 18 UNIT SUBCUT (20:38)
[2021-12-20] MEDS: traZODone HCL 100 MG TABLET 200 MG PO (20:42)
[2021-12-21] VITALS (7 sets, daily range): BP systolic 105–140; BP diastolic 54–70; PULSE 55–88; RESP 16–18; TEMP 36–37.1; O2SAT 91–98; BMI 60.2
[2021-12-21] MEDS: Heparin Sodium,Porcine 5,000 UNIT/ML VIAL 5000 UNIT SUBCUT ×3 (05:33→21:26)
[2021-12-21] MEDS: Omeprazole 20 MG CAPSULE.DR PO ×2 (05:33→17:16)
[2021-12-21] MEDS: Levothyroxine Sodium 125 MCG TABLET 250 MCG PO (05:33)
[2021-12-21 07:31] LABS: Glucose, Whole Blood 153 mg/dL (60-115)
[2021-12-21] MEDS: Insulin Lispro 100 UNIT/ML 3 ML VIAL SUBCUT ×5 (08:23→21:28)
[2021-12-21] MEDS: FLUoxetine HCl 20 MG CAPSULE 60 MG PO (08:24)
[2021-12-21] MEDS: amLODIPine Besylate 5 MG TABLET PO (08:24)
[2021-12-21] MEDS: Aspirin Enteric Coated 81 MG TABLET.DR PO (08:24)
[2021-12-21] MEDS: Loratadine 10 MG TABLET PO (08:25)
[2021-12-21] MEDS: Sennosides/Docusate Sodium TABLET 1 TAB PO (08:25)
[2021-12-21] MEDS: Furosemide 40 MG TABLET PO ×2 (08:25→17:50)
[2021-12-21] MEDS: Gabapentin 600 MG TABLET PO ×3 (08:25→21:26)
[2021-12-21] MEDS: Buprenorphine/Naloxone 8/2 mg FILM 1 FILM SUBLINGUAL ×3 (08:25→21:25)
[2021-12-21] MEDS: Ammonium Lactate 12 % Lotion 226 GM BOTTLE 1 APPL TOPICAL ×2 (08:31→21:29)
--- NOTE | 2021-12-21 08:46 | MHC.CM.PN ---
SNF referrals were updated yesterday and CM will continue to follow.
[2021-12-21] MEDS: Acetaminophen 325 MG TABLET 650 MG PO (09:02)
[2021-12-21] MEDS: Nystatin Powder 15 GM BOTTLE 1 APPL TOPICAL ×3 (09:02→21:30)
[2021-12-21] MEDS: Ibuprofen 400 MG TABLET PO (09:03)
[2021-12-21] MEDS: clonazePAM 0.5 MG TABLET PO (09:03)
[2021-12-21 11:24] LABS: Glucose, Whole Blood 133 mg/dL (60-115)
--- NOTE | 2021-12-21 11:44 | HO.PM.IMPN ---
Subjective Subjective Date of Service: 12/21/21 Interval History: Laying in bed, feels comfortable overall Feels little bit stronger day by day. tolerating physical therapy sessions Able to stand up with help yesterday and sitting in the chair No reported other overnight events. Systemic review: No fever, chills or weakness No chest pain, palpitation No shortness of breath or coughing No abdominal pain, nausea or vomiting No urinary symptoms Joint pain in her knees Lower extremity chronic rash Physical Exam Vital Signs: Vital Signs: Last Vital Signs Temp 96.8 F 12/21/21 11:11 Pulse 75 12/21/21 11:11 Resp 16 12/21/21 11:11 BP 109/54 L 12/21/21 11:11 Pulse Ox 92 12/21/21 11:11 O2 Del Method 12/21/21 11:11 O2 Flow Rate 2 12/21/21 11:11 BMI result Body Mass Index 78.2 Const: Other: Constitutional : Morbidly obese, interactive, not in distress Neck : Normal inspection, Supple Cardiovascular : RRR, no JVP, trace bilateral lower extremity edema Respiratory : fair bilateral air entry, basal fine crackles, wheezes or rhonchi, oxygen supplement Gastrointestinal: soft, lax, Normal bowel sounds, Non tender Skin : Warm, Dry, bilateral chronic stasis dermatitis changes Neurological : Alert & oriented x3, No focal deficit , CN 2-12 within normal Objective Data Active Medications Acetaminophen (Acetaminophen 325 Mg Tablet) 650 mg PO Q6H PRN PRN Reason: Pain, Mild (Pain Scale 1-3) Last Admin: 12/21/21 09:02 Dose: 650 mg Documented By: JOCELYNE Albuterol Sulfate (Albuterol Sulfate 90 Mcg 8 Gm Inhaler) 2 puff INHALE Q4H PRN PRN Reason: wheezing Amlodipine Besylate (Amlodipine Besylate 5 Mg Tablet) 5 mg PO DAILY [facility]; Protocol Last Admin: 12/21/21 08:24 Dose: 5 mg Documented By: JOCELYNE Aspirin (Aspirin Enteric Coated 81 Mg Tablet.) 81 mg PO DAILY [facility] Last Admin: 12/21/21 08:24 Dose: 81 mg Documented By: JOCELYNE Atorvastatin Calcium (Atorvastatin Calcium 80 Mg Tablet) 80 mg PO BEDTIME [facility] Last Admin: 12/20/21 20:37 Dose: 80 mg Documented By: ADONIS Buprenorphine/Naloxone (Buprenorphine/Naloxone 8/2 Mg Film) 1 film SUBLINGUAL TID [facility] Last Admin: 12/21/21 08:25 Dose: 1 film Documented By: JOCELYNE Clonazepam (Clonazepam 0.5 Mg Tablet) 0.5 mg PO DAILY PRN PRN Reason: anxiety/restlessness Last Admin: 12/21/21 09:03 Dose: 0.5 mg Documented By: JOCELYNE Fluoxetine HCl (Fluoxetine Hcl 20 Mg Capsule) 60 mg PO DAILY [facility] Last Admin: 12/21/21 08:24 Dose: 60 mg Documented By: JOCELYNE Furosemide (Furosemide 40 Mg Tablet) 40 mg PO BID@0900,1800 [facility]; Protocol Last Admin: 12/21/21 08:25 Dose: 40 mg Documented By: JOCELYNE Gabapentin (Gabapentin 600 Mg Tablet) 600 mg PO TID [facility] Last Admin: 12/21/21 08:25 Dose: 600 mg Documented By: JOCELYNE Heparin Sodium (Porcine) (Heparin Sodium,Porcine 5,000 Unit/Ml Vial) 5,000 unit SUBCUT Q8H [facility] Last Admin: 12/21/21 05:33 Dose: 5,000 unit Documented By: PATRICKILYfn Ibuprofen (Ibuprofen 400 Mg Tablet) 400 mg PO Q6H PRN PRN Reason: moderate pain Last Admin: 12/21/21 09:03 Dose: 400 mg Documented By: JOCELYNE Insulin Glargine (Insulin Glargine,Hum.Rec.Anlog 100 Unit/Ml 10 Ml Vial) 18 unit SUBCUT BEDTIME [facility] Last Admin: 12/20/21 20:38 Dose: 18 unit Documented By: ADONIS Insulin Human Lispro (Insulin Lispro 100 Unit/Ml 3 Ml Vial) 0 unit SUBCUT QIDACHS [facility]; Protocol Last Admin: 12/21/21 08:23 Dose: 2 unit Documented By: JOCELYNE Insulin Human Lispro (Insulin Lispro 100 Unit/Ml 3 Ml Vial) 5 unit SUBCUT QIDACHS [facility] Last Admin: 12/21/21 08:23 Dose: 5 unit Documented By: JOCELYNE Lactic Acid (Ammonium Lactate 12 % Lotion 226 Gm Bottle) 1 appl TOPICAL BID [facility]; Protocol Last Admin: 12/21/21 08:31 Dose: 1 appl Documented By: JOCELYNE Levothyroxine Sodium (Levothyroxine Sodium 125 Mcg Tablet) 250 mcg PO DAILY@0630 [facility] Last Admin: 12/21/21 05:33 Dose: 250 mcg Documented By: KINGA Lidocaine (Lidocaine 4 % Patch Adh..Patch) 1 patch TRANSDERMA DAILY [facility]; Protocol Last Admin: 12/21/21 09:43 Dose: Not Given Documented By: JOCELYNE Non-Admin Reason: Patient Refused Lidocaine (Lidocaine 4 % Patch Adh..Patch) 1 patch TRANSDERMA DAILY [facility]; Protocol Last Admin: 12/21/21 09:05 Dose: Not Given Documented By: JOCELYNE Non-Admin Reason: Patient Refused Loratadine (Loratadine 10 Mg Tablet) 10 mg PO DAILY [facility] Last Admin: 12/21/21 08:25 Dose: 10 mg Documented By: JOCELYNE Magnesium Hydroxide (Milk Of Magnesia 30 Ml Oral.Susp) 15 ml PO BEDTIME PRN PRN Reason: Constipation Last Admin: 11/30/21 19:34 Dose: 15 ml Documented By: ADINA Mineral Oil (Mineral Oil Enema 133 Ml Enema) 133 ml [place] ONCE PRN PRN Reason: constipation Nystatin (Nystatin Powder 15 Gm Bottle) 1 appl TOPICAL TID [facility]; Protocol Last Admin: 12/21/21 09:02 Dose: 1 appl Documented By: JOCELYNE Omeprazole (Omeprazole 20 Mg Capsule.) 20 mg PO BID@0630,1630 [facility] Last Admin: 12/21/21 05:33 Dose: 20 mg Documented By: KINGA Ondansetron HCl (Ondansetron Hcl 4 Mg/2 Ml Vial) 4 mg IVPUSH Q8H PRN PRN Reason: Nausea and Vomiting Pharmacy Consult (Consult Rx Perform Med Rec) 1 each MISCELLANE ONCE PRN PRN Reason: Consult order Polyethylene Glycol (Polyethylene Glycol 3350 17 Gm Powd.Pack) 17 gm PO DAILY [facility] Last Admin: 12/21/21 09:50 Dose: Not Given Documented By: JOCELYNE Non-Admin Reason: Patient Refused Senna/Docusate Sodium (Sennosides/Docusate Sodium Tablet) 1 tab PO DAILY [facility] Last Admin: 12/21/21 08:25 Dose: 1 tab Documented By: JOCELYNE Sodium Chloride (0.9 % Sodium Chloride Flush 3 Ml Syringe) 3 ml IVFLUSH QSHIFT [facility] Last Admin: 12/21/21 09:05 Dose: Not Given Documented By: JOCELYNE Non-Admin Reason: No Access Trazodone HCl (Trazodone Hcl 100 Mg Tablet) 200 mg PO BEDTIME PRN PRN Reason: Insomnia Last Admin: 12/20/21 20:42 Dose: 200 mg Documented By: ADONIS Labs CBC & Chem 7: 12/15/21 05:18 12/15/21 05:18 Labs: Laboratory Results - last 24 hr 12/20/21 12/20/21 12/21/21 16:10 20:15 07:26 POC Glucose 172 H 134 H 153 H 12/21/21 11:09 POC Glucose 133 H Assessment and Plan (1) Physical deconditioning: Status: Acute Plan 51 yo F who presented to ED with LE swelling, was awaiting STR placement but noted to have abd swelling and found to have hydronephrosis on abd CT that turns out to be chronic with decreased R kidney function Physical deconditioning Patient unable to ambulate or even stand up at this point from prolonged hospital stay and deconditioning Physical therapy, nursing staff are following with her with a plan to keep ambulating her and trying to get her up on her feet in order to place her to SNF or to go back home if she is able to climb the stairs. morbid obesity discussed importance of weight management as this is likely contributing to worsening of other comorbidities will reweight her today for placement purposes Constipation multiple BMs documented continue bowel regimen Right hand swelling Neg for VTE chronic LE edema US negative for VTE; likely due to obesity, anemia, hypoalbuminemia, and likely R-sided HF IV furosemide changed to oral Lasix chronic hypoxic resp failure likely 2/2 OHS, COPD + asthma overall better prn albuterol 1-2 liters nc at baseline chest/shoulder pain EKG normal and hs-Tn-I normal.? origin is MSK, likely shoulder impingement; continue lidocaine patch, PT/OT R hydronephrosis/proximal ureteral dilation Urology seen- no acute therapy indicated- chronic issue.? Lasix renogram showed diminished R renal function; normal on L.? outpt Uro f/u.? renal function stable. acute/chronic normocytic anemia likely anemia of CKD, improved s/p 1u pRBCs; normal iron studies/B12/FA H/H stable CKD3 Creatinine at baseline UTI treated with Ceftriaxone HTN continue amlodipine HLD continue atorvastatin L knee pain APAP for arthritis pain DM2 A1c 9.2, basal/bolus insulin hypothyroid TSH 20.29, increased LT4 200->250 mcg/d and repeat TSH in 6 wk mood disorder continue fluoxetine GERD PPI OUD Suboxone VTE ppx- UFH Continued hospitalization/dispo - seen by physical therapy; they recommend short-term rehab for optimal functional gains.? however, no STR beds are available in the state due to her weight + Suboxone use + Covid-19 unvaccinated status.? She declines Covid-19 vaccine due to hinduism beliefs as a Muslim. ? CM broadening search.? PT and OT working with pt to gain ability to get up her stairs herself in which case she could go home with VNA at some point Quality Stroke Does the patient have a stroke diagnosis?: No VTE Prior VTE?: No VTE Risk Level:: Medical - moderate - high VTE Device Contraindication: Treatment Not Indicated VTE Drug Contraindication: N/A - Med Ordered
[2021-12-21 15:33] LABS: Glucose, Whole Blood 109 mg/dL (60-115)
--- NOTE | 2021-12-21 17:22 | PC.NURSE ---
P BS 109 I held scheduled Humulog insulin,Dr. Pedroza notified E will monitor
[2021-12-21 20:09] LABS: Glucose, Whole Blood 155 mg/dL (60-115)
[2021-12-21] MEDS: Atorvastatin Calcium 80 MG TABLET PO (21:26)
[2021-12-21] MEDS: Insulin Glargine,Hum.rec.anlog 100 UNIT/ML 10 ML VIAL 18 UNIT SUBCUT (21:27)
[2021-12-21] MEDS: traZODone HCL 100 MG TABLET 200 MG PO (21:37)
[2021-12-22] VITALS (7 sets, daily range): BP systolic 114–142; BP diastolic 59–75; PULSE 78–87; RESP 16–20; TEMP 36.4–36.9; O2SAT 93–97
[2021-12-22] MEDS: Heparin Sodium,Porcine 5,000 UNIT/ML VIAL 5000 UNIT SUBCUT ×2 (05:30→14:49)
[2021-12-22] MEDS: Levothyroxine Sodium 125 MCG TABLET 250 MCG PO (05:30)
[2021-12-22] MEDS: Omeprazole 20 MG CAPSULE.DR PO ×2 (05:30→16:12)
[2021-12-22 07:35] LABS: Glucose, Whole Blood 131 mg/dL (60-115)
[2021-12-22] MEDS: amLODIPine Besylate 5 MG TABLET PO (07:57)
[2021-12-22] MEDS: Ibuprofen 400 MG TABLET PO (07:57)
[2021-12-22] MEDS: Loratadine 10 MG TABLET PO (07:58)
[2021-12-22] MEDS: Acetaminophen 325 MG TABLET 650 MG PO (07:58)
[2021-12-22] MEDS: clonazePAM 0.5 MG TABLET PO (07:58)
[2021-12-22] MEDS: Aspirin Enteric Coated 81 MG TABLET.DR PO (07:58)
[2021-12-22] MEDS: FLUoxetine HCl 20 MG CAPSULE 60 MG PO (07:58)
[2021-12-22] MEDS: Gabapentin 600 MG TABLET PO ×3 (07:58→21:22)
[2021-12-22] MEDS: Insulin Lispro 100 UNIT/ML 3 ML VIAL SUBCUT ×3 (07:59→21:22)
[2021-12-22] MEDS: Buprenorphine/Naloxone 8/2 mg FILM 1 FILM SUBLINGUAL ×3 (07:59→21:23)
[2021-12-22] MEDS: Lidocaine 4 % Patch ADH..PATCH 1 PATCH TRANSDERMA (07:59)
[2021-12-22] MEDS: Furosemide 40 MG TABLET PO ×2 (08:00→17:31)
--- NOTE | 2021-12-22 10:50 | P.CDIC_ITS ---
CDI Concurrent Query Documentation Clarification: PHYSICIAN'S DOCUMENTATION REQUEST Date of Query: 12/22/21 1050 Patient Name: Betzaida Cho Admit Date: 11/12/21 Dear Doctor, A review of the medical record indicates additional documentation may be needed. Please review below and update the documentation accordingly. Clinical Indicators: Risk Factors/Clinical Indicators/Treatments Per MD progress note of 12/21/21: ?likely R-sided HF IV furosemide changed to oral Lasix review of H&P does not list history of CHF Please provide further specificity regarding the most likely type and acuity of CHF you are evaluating, treating, or monitoring. Examples include: Type: * Systolic * Diastolic * Combined Systolic/Diastolic * Other ? please specify * Unable to determine Acuity: * Acute * Chronic * Acute on chronic * Unable to determine Use of terms such as suspected, likely, concern for, or probable (associated with a specific diagnosis that is being evaluated, monitored, or treated as if it exists) are acceptable and can be coded in the inpatient setting, when documented at the time of discharge. Thank you, Katy White RN Extension: [phone] Please use your independent medical judgment in providing your response. THIS QUERY IS PART OF THE PERMANENT MEDICAL RECORD Provider Response: Acute-Chronic Diastolic CHF
[2021-12-22 11:19] LABS: Glucose, Whole Blood 133 mg/dL (60-115)
[2021-12-22] MEDS: Nystatin Powder 15 GM BOTTLE 1 APPL TOPICAL ×3 (11:37→21:24)
[2021-12-22] MEDS: Ammonium Lactate 12 % Lotion 226 GM BOTTLE 1 APPL TOPICAL ×2 (11:37→21:23)
--- NOTE | 2021-12-22 16:13 | PC.NURSE ---
patient refused alarm
[2021-12-22 16:16] LABS: Glucose, Whole Blood 103 mg/dL (60-115)
--- NOTE | 2021-12-22 16:19 | P.PNIM_ITS ---
Subjective Subjective Date of Service: 12/22/21 Interval History: seen and examined this morning Follow-up for placement Has been working with physical therapy slowly improving No specific complaints Review of Systems Review of Systems: Yes all other systems are reviewed and are negative Constitutional Constitutional: Denies chills and Denies fever(s) Cardiovascular Cardiovascular: Denies chest pain, Denies palpitations and Denies dyspnea Respiratory Respiratory: Denies cough and Denies dyspnea Gastrointestinal Gastrointestinal: Denies abdominal pain, Denies nausea and Denies vomiting Endocrine Endocrine: Denies palpitations Physical Exam Vital Signs: Vital Signs: Last Vital Signs Temp 97.6 F 12/22/21 15:37 Pulse 85 12/22/21 15:37 Resp 16 12/22/21 15:37 BP 120/64 12/22/21 15:37 Pulse Ox 97 12/22/21 15:37 O2 Del Method 12/22/21 15:37 O2 Flow Rate 2.0 12/22/21 15:37 BMI result Body Mass Index 60.2 Const: General: cooperative, healthy appearing, comfortable, no acute distress, alert and awake Nutritional Appearance: obese HEENT: Head: Yes normal to inspection Face and sinus: Yes normal facial exam Mouth: Normal oral and palatal mucosa present and moist mucous membranes Resp: Effort & Inspection: normal respiratory effort, able to speak in complete sentences and no respiratory distress Auscultation: no rales, no wheezes and diminished lung sounds Cardio: Rate: regular rate Rhythm: regular rhythm Heart sounds: S1 normal heart sound present GI: Inspection: Yes normal to inspection, No distended and Yes obesity Palpation (GI): Soft to palpation and nontender Extrem: Other: Bilateral lower extremity chronic venous stasis changes Objective Data Active Medications Acetaminophen (Acetaminophen 325 Mg Tablet) 650 mg PO Q6H PRN PRN Reason: Pain, Mild (Pain Scale 1-3) Last Admin: 12/22/21 07:58 Dose: 650 mg Documented By: JOCELYNE Albuterol Sulfate (Albuterol Sulfate 90 Mcg 8 Gm Inhaler) 2 puff INHALE Q4H PRN PRN Reason: wheezing Amlodipine Besylate (Amlodipine Besylate 5 Mg Tablet) 5 mg PO DAILY [facility]; Protocol Last Admin: 12/22/21 07:57 Dose: 5 mg Documented By: JOCELYNE Aspirin (Aspirin Enteric Coated 81 Mg Tablet.) 81 mg PO DAILY [facility] Last Admin: 12/22/21 07:58 Dose: 81 mg Documented By: JOCELYNE Atorvastatin Calcium (Atorvastatin Calcium 80 Mg Tablet) 80 mg PO BEDTIME [facility] Last Admin: 12/21/21 21:26 Dose: 80 mg Documented By: ZULEIKA Buprenorphine/Naloxone (Buprenorphine/Naloxone 8/2 Mg Film) 1 film SUBLINGUAL TID [facility] Last Admin: 12/22/21 14:49 Dose: 1 film Documented By: JOCELYNE Fluoxetine HCl (Fluoxetine Hcl 20 Mg Capsule) 60 mg PO DAILY [facility] Last Admin: 12/22/21 07:58 Dose: 60 mg Documented By: JOCELYNE Furosemide (Furosemide 40 Mg Tablet) 40 mg PO BID@0900,1800 [facility]; Protocol Last Admin: 12/22/21 08:00 Dose: 40 mg Documented By: JOCELYNE Gabapentin (Gabapentin 600 Mg Tablet) 600 mg PO TID [facility] Last Admin: 12/22/21 14:49 Dose: 600 mg Documented By: JOCELYNE Heparin Sodium (Porcine) (Heparin Sodium,Porcine 5,000 Unit/Ml Vial) 5,000 unit SUBCUT Q8H [facility] Last Admin: 12/22/21 14:49 Dose: 5,000 unit Documented By: JOCELYNE Ibuprofen (Ibuprofen 400 Mg Tablet) 400 mg PO Q6H PRN PRN Reason: moderate pain Last Admin: 12/22/21 07:57 Dose: 400 mg Documented By: JOCELYNE Insulin Glargine (Insulin Glargine,Hum.Rec.Anlog 100 Unit/Ml 10 Ml Vial) 18 unit SUBCUT BEDTIME [facility] Last Admin: 12/21/21 21:27 Dose: 18 unit Documented By: ZULEIKA Insulin Human Lispro (Insulin Lispro 100 Unit/Ml 3 Ml Vial) 0 unit SUBCUT QIDACHS [facility]; Protocol Last Admin: 12/22/21 16:10 Dose: Not Given Documented By: ZULEIKA Non-Admin Reason: No Insulin Coverage Insulin Human Lispro (Insulin Lispro 100 Unit/Ml 3 Ml Vial) 5 unit SUBCUT QIDACHS [facility] Last Admin: 12/22/21 16:10 Dose: Not Given Documented By: ZULEIKA Non-Admin Reason: Patient Refused Lactic Acid (Ammonium Lactate 12 % Lotion 226 Gm Bottle) 1 appl TOPICAL BID [facility]; Protocol Last Admin: 12/22/21 11:37 Dose: 1 appl Documented By: JOCELYNE Levothyroxine Sodium (Levothyroxine Sodium 125 Mcg Tablet) 250 mcg PO DAILY@0630 [facility] Last Admin: 12/22/21 05:30 Dose: 250 mcg Documented By: VARGAS Lidocaine (Lidocaine 4 % Patch Adh..Patch) 1 patch TRANSDERMA DAILY [facility]; Protocol Last Admin: 12/22/21 07:59 Dose: 1 patch Documented By: JOCELYNE Lidocaine (Lidocaine 4 % Patch Adh..Patch) 1 patch TRANSDERMA DAILY [facility]; Protocol Last Admin: 12/22/21 07:59 Dose: Not Given Documented By: JOCELYNE Non-Admin Reason: Patient Refused Loratadine (Loratadine 10 Mg Tablet) 10 mg PO DAILY [facility] Last Admin: 12/22/21 07:58 Dose: 10 mg Documented By: JOCELYNE Magnesium Hydroxide (Milk Of Magnesia 30 Ml Oral.Susp) 15 ml PO BEDTIME PRN PRN Reason: Constipation Last Admin: 11/30/21 19:34 Dose: 15 ml Documented By: ADINA Mineral Oil (Mineral Oil Enema 133 Ml Enema) 133 ml [place] ONCE PRN PRN Reason: constipation Nystatin (Nystatin Powder 15 Gm Bottle) 1 appl TOPICAL TID [facility]; Protocol Last Admin: 12/22/21 14:50 Dose: 1 appl Documented By: JOCELYNE Omeprazole (Omeprazole 20 Mg Capsule.Dr) 20 mg PO BID@0630,1630 [facility] Last Admin: 12/22/21 16:12 Dose: 20 mg Documented By: ZULEIKA Ondansetron HCl (Ondansetron Hcl 4 Mg/2 Ml Vial) 4 mg IVPUSH Q8H PRN PRN Reason: Nausea and Vomiting Pharmacy Consult (Consult Rx Perform Med Rec) 1 each MISCELLANE ONCE PRN PRN Reason: Consult order Polyethylene Glycol (Polyethylene Glycol 3350 17 Gm Powd.Pack) 17 gm PO DAILY [facility] Last Admin: 12/22/21 08:00 Dose: Not Given Documented By: JOCELYNE Non-Admin Reason: Patient Refused Senna/Docusate Sodium (Sennosides/Docusate Sodium Tablet) 1 tab PO DAILY [facility] Last Admin: 12/22/21 08:00 Dose: Not Given Documented By: JOCELYNE Non-Admin Reason: Patient Refused Sodium Chloride (0.9 % Sodium Chloride Flush 3 Ml Syringe) 3 ml IVFLUSH QSHIFT [facility] Last Admin: 12/22/21 16:01 Dose: Not Given Documented By: ZULEIKA Non-Admin Reason: No Access Trazodone HCl (Trazodone Hcl 100 Mg Tablet) 200 mg PO BEDTIME PRN PRN Reason: Insomnia Last Admin: 12/21/21 21:37 Dose: 200 mg Documented By: ZULEIKA Labs CBC & Chem 7: 12/15/21 05:18 12/15/21 05:18 Labs: Laboratory Results - last 24 hr 12/21/21 12/22/21 12/22/21 19:41 07:27 11:08 POC Glucose 155 H 131 H 133 H 12/22/21 16:06 POC Glucose 103 Assessment and Plan (1) Physical deconditioning: Status: Acute Plan 51 yo F who presented to ED with LE swelling, was awaiting STR placement but noted to have abd swelling and found to have hydronephrosis on abd CT that turns out to be chronic with decreased R kidney function Physical deconditioning Patient unable to ambulate or even stand up at this point from prolonged hospital stay and deconditioning Physical therapy, nursing staff are following with her with a plan to keep ambulating her and trying to get her up on her feet in order to place her to SNF or to go back home if she is able to climb the stairs. morbid obesity discussed importance of weight management as this is likely contributing to worsening of other comorbidities will reweight her today for placement purposes Constipation multiple BMs documented continue bowel regimen Right hand swelling Neg for VTE chronic LE edema/ probable chronic right-sided heart failure US negative for VTE; likely due to obesity, anemia, hypoalbuminemia, and likely R-sided HF echo showing preserved ejection fraction and elevated right atrial pressures IV furosemide changed to oral Lasix chronic hypoxic resp failure likely 2/2 OHS, COPD + asthma overall better prn albuterol 1-2 liters nc at baseline chest/shoulder pain EKG normal and hs-Tn-I normal.? origin is MSK, likely shoulder impingement; continue lidocaine patch, PT/OT R hydronephrosis/proximal ureteral dilation Urology seen- no acute therapy indicated- chronic issue.? Lasix renogram showed diminished R renal function; normal on L.? outpt Uro f/u.? renal function st able. acute/chronic normocytic anemia likely anemia of CKD, improved s/p 1u pRBCs; normal iron studies/B12/FA H/H stable CKD3 Creatinine at baseline UTI treated with Ceftriaxone HTN continue amlodipine HLD continue atorvastatin L knee pain APAP for arthritis pain DM2 A1c 9.2, basal/bolus insulin hypothyroid TSH 20.29, increased LT4 200->250 mcg/d and repeat TSH in 6 wk mood disorder continue fluoxetine GERD PPI OUD Suboxone VTE ppx- [facility] attending -Dr. Dolan Continued hospitalization/dispo - seen by physical therapy; they recommend short-term rehab for optimal functional gains.? however, no STR beds are available in the state due to her weight + Suboxone use + Covid-19 unvaccinated status.? She declines Covid-19 vaccine due to yazidism beliefs as a [employer]. ? CM broadening search.? PT and OT working with pt to gain ability to get up her stairs herself in which case she could go home with VNA at some point Quality Stroke Does the patient have a stroke diagnosis?: No VTE Prior VTE?: No VTE Risk Level:: Medical - moderate - high VTE Device Contraindication: Treatment Not Indicated VTE Drug Contraindication: N/A - Med Ordered
[2021-12-22 20:20] LABS: Glucose, Whole Blood 148 mg/dL (60-115)
[2021-12-22] MEDS: Insulin Glargine,Hum.rec.anlog 100 UNIT/ML 10 ML VIAL 18 UNIT SUBCUT (21:21)
[2021-12-22] MEDS: traZODone HCL 100 MG TABLET 200 MG PO (21:22)
[2021-12-22] MEDS: Atorvastatin Calcium 80 MG TABLET PO (21:23)
[2021-12-23 03:24] VITALS: RESP 16
[2021-12-23] MEDS: Levothyroxine Sodium 125 MCG TABLET 250 MCG PO (05:52)
[2021-12-23] MEDS: Omeprazole 20 MG CAPSULE.DR PO ×2 (05:52→16:07)
[2021-12-23] MEDS: Heparin Sodium,Porcine 5,000 UNIT/ML VIAL 5000 UNIT SUBCUT ×3 (05:53→21:30)
[2021-12-23 07:21] VITALS: BP 144/71; PULSE 85; RESP 17; TEMP 36.1; O2SAT 97
[2021-12-23 07:36] LABS: Glucose, Whole Blood 121 mg/dL (60-115)
[2021-12-23] MEDS: Insulin Lispro 100 UNIT/ML 3 ML VIAL SUBCUT ×5 (08:02→21:33)
[2021-12-23] MEDS: Gabapentin 600 MG TABLET PO ×3 (08:03→21:29)
[2021-12-23] MEDS: Ibuprofen 400 MG TABLET PO (08:03)
[2021-12-23] MEDS: Furosemide 40 MG TABLET PO ×2 (08:04→17:06)
[2021-12-23] MEDS: Aspirin Enteric Coated 81 MG TABLET.DR PO (08:04)
[2021-12-23] MEDS: Acetaminophen 325 MG TABLET 650 MG PO ×2 (08:04→16:18)
[2021-12-23] MEDS: FLUoxetine HCl 20 MG CAPSULE 60 MG PO (08:04)
[2021-12-23] MEDS: Loratadine 10 MG TABLET PO (08:04)
[2021-12-23] MEDS: amLODIPine Besylate 5 MG TABLET PO (08:04)
[2021-12-23] MEDS: Lidocaine 4 % Patch ADH..PATCH 1 PATCH TRANSDERMA (08:05)
[2021-12-23] MEDS: Buprenorphine/Naloxone 8/2 mg FILM 1 FILM SUBLINGUAL ×3 (08:05→21:42)
[2021-12-23] MEDS: Ammonium Lactate 12 % Lotion 226 GM BOTTLE 1 APPL TOPICAL ×2 (08:06→21:34)
[2021-12-23] MEDS: Nystatin Powder 15 GM BOTTLE 1 APPL TOPICAL ×3 (08:06→21:34)
[2021-12-23] MEDS: polyethylene glycoL 3350 17 GM POWD.PACK PO (09:20)
[2021-12-23] MEDS: clonazePAM 0.5 MG TABLET PO (09:20)
[2021-12-23 10:18] VITALS: BP 144/71; PULSE 85; O2SAT 97
--- NOTE | 2021-12-23 10:27 | MHC.CLN ---
F/U WEIGHT HX: 12/2145=370.5 KG; 12/07=183 KG; 11/08=226.796 KG. WEIGHT LOSS SINCE ADMISSION=-52.3 KG, 23%. WEIGHT LOSS FAVORABLE AND DESIRABLE. DIET=DIABETIC 1800 KCALS, 2 GRAM SODIUM. USUALLY EATS 100% AT MEALS. CONTINUE CURRENT DIET AND FOLLOW WEEKLY FOR WEIGHT LOSS PROGRESS.
[2021-12-23 11:23] VITALS: BP 102/57; PULSE 75; RESP 16; TEMP 36; O2SAT 92
[2021-12-23 11:32] LABS: Glucose, Whole Blood 147 mg/dL (60-115)
[2021-12-23 13:24] VITALS: BMI 61.2
--- NOTE | 2021-12-23 14:07 | MHC.CM.PN ---
SNF referrals updated today 12/23, CM will continue to follow.
[2021-12-23 15:10] VITALS: BP 119/66; PULSE 71; RESP 18; TEMP 36.3; O2SAT 94
[2021-12-23 15:34] LABS: Glucose, Whole Blood 151 mg/dL (60-115)
--- NOTE | 2021-12-23 16:13 | HO.PM.IMPN ---
Subjective Subjective Date of Service: 12/23/21 Interval History: seen and examined this morning Follow-up for placement Has been working with physical therapy Review of Systems Review of Systems: Yes all other systems are reviewed and are negative Constitutional Constitutional: Denies chills and Denies fever(s) Cardiovascular Cardiovascular: Denies chest pain, Denies palpitations and Denies dyspnea Respiratory Respiratory: Denies cough and Denies dyspnea Gastrointestinal Gastrointestinal: Denies abdominal pain Endocrine Endocrine: Denies palpitations Physical Exam Vital Signs: Vital Signs: Last Vital Signs Temp 97.4 F 12/23/21 15:10 Pulse 71 12/23/21 15:10 Resp 18 12/23/21 15:10 BP 119/66 12/23/21 15:10 Pulse Ox 94 12/23/21 15:10 O2 Del Method 12/23/21 15:10 O2 Flow Rate 2.0 12/23/21 15:10 BMI result Body Mass Index 61.2 Const: General: cooperative, healthy appearing, comfortable, no acute distress, alert and awake Nutritional Appearance: obese Orientation/consciousness: patient oriented x3 HEENT: Head: Yes normal to inspection Face and sinus: Yes normal facial exam Mouth: Normal oral and palatal mucosa present and moist mucous membranes Neck: Neck: Yes normal visual inspection, Yes full ROM and Yes trachea midline Chest: Chest palpation & inspection: normal inspection of the chest Resp: Effort & Inspection: normal respiratory effort, able to speak in complete sentences and no respiratory distress Auscultation: no rales, no wheezes and diminished lung sounds Cardio: Rate: regular rate Rhythm: regular rhythm Heart sounds: S1 normal heart sound present and S2 normal heart sound present GI: Inspection: Yes normal to inspection, No distended and Yes obesity Palpation (GI): Soft to palpation and nontender Neuro: General: patient oriented x3, gait normal, tone normal and moves all extremities Extrem: Other: Bilateral lower extremity chronic venous stasis changes General: Yes normal to inspection, Yes capillary refill normal and Yes no pedal edema Objective Data Active Medications Acetaminophen (Acetaminophen 325 Mg Tablet) 650 mg PO Q6H PRN PRN Reason: Pain, Mild (Pain Scale 1-3) Last Admin: 12/23/21 08:04 Dose: 650 mg Documented By: JOCELYNE Albuterol Sulfate (Albuterol Sulfate 90 Mcg 8 Gm Inhaler) 2 puff INHALE Q4H PRN PRN Reason: wheezing Amlodipine Besylate (Amlodipine Besylate 5 Mg Tablet) 5 mg PO DAILY [facility]; Protocol Last Admin: 12/23/21 08:04 Dose: 5 mg Documented By: JOCELYNE Aspirin (Aspirin Enteric Coated 81 Mg Tablet.Dr) 81 mg PO DAILY [facility] Last Admin: 12/23/21 08:04 Dose: 81 mg Documented By: JOCELYNE Atorvastatin Calcium (Atorvastatin Calcium 80 Mg Tablet) 80 mg PO BEDTIME [facility] Last Admin: 12/22/21 21:23 Dose: 80 mg Documented By: ZULEIKA Buprenorphine/Naloxone (Buprenorphine/Naloxone 8/2 Mg Film) 1 film SUBLINGUAL TID [facility] Last Admin: 12/23/21 14:29 Dose: 1 film Documented By: JOCELYNE Clonazepam (Clonazepam 0.5 Mg Tablet) 0.5 mg PO DAILY PRN PRN Reason: Anxiety Last Admin: 12/23/21 09:20 Dose: 0.5 mg Documented By: JOCELYNE Fluoxetine HCl (Fluoxetine Hcl 20 Mg Capsule) 60 mg PO DAILY [facility] Last Admin: 12/23/21 08:04 Dose: 60 mg Documented By: JOCELYNE Furosemide (Furosemide 40 Mg Tablet) 40 mg PO BID@0900,1800 [facility]; Protocol Last Admin: 12/23/21 08:04 Dose: 40 mg Documented By: JOCELYNE Gabapentin (Gabapentin 600 Mg Tablet) 600 mg PO TID [facility] Last Admin: 12/23/21 14:29 Dose: 600 mg Documented By: JOCELYNE Heparin Sodium (Porcine) (Heparin Sodium,Porcine 5,000 Unit/Ml Vial) 5,000 unit SUBCUT Q8H [facility] Last Admin: 12/23/21 14:29 Dose: 5,000 unit Documented By: JOCELYNE Ibuprofen (Ibuprofen 400 Mg Tablet) 400 mg PO Q6H PRN PRN Reason: moderate pain Last Admin: 12/23/21 08:03 Dose: 400 mg Documented By: JOCELYNE Insulin Glargine (Insulin Glargine,Hum.Rec.Anlog 100 Unit/Ml 10 Ml Vial) 18 unit SUBCUT BEDTIME [facility] Last Admin: 12/22/21 21:21 Dose: 18 unit Documented By: ZULEIKA Insulin Human Lispro (Insulin Lispro 100 Unit/Ml 3 Ml Vial) 0 unit SUBCUT QIDACHS [facility]; Protocol Last Admin: 12/23/21 12:09 Dose: Not Given Documented By: JOCELYNE Non-Admin Reason: No Insulin Coverage Insulin Human Lispro (Insulin Lispro 100 Unit/Ml 3 Ml Vial) 5 unit SUBCUT [facility] Last Admin: 12/23/21 12:03 Dose: 5 unit Documented By: JOCELYNE Lactic Acid (Ammonium Lactate 12 % Lotion 226 Gm Bottle) 1 appl TOPICAL BID [facility]; Protocol Last Admin: 12/23/21 08:06 Dose: 1 appl Documented By: JOCELYNE Levothyroxine Sodium (Levothyroxine Sodium 125 Mcg Tablet) 250 mcg PO DAILY@0630 [facility] Last Admin: 12/23/21 05:52 Dose: 250 mcg Documented By: CHRIS Lidocaine (Lidocaine 4 % Patch Adh..Patch) 1 patch TRANSDERMA DAILY [facility]; Protocol Last Admin: 12/23/21 08:05 Dose: 1 patch Documented By: JOCELYNE Lidocaine (Lidocaine 4 % Patch Adh..Patch) 1 patch TRANSDERMA DAILY [facility]; Protocol Last Admin: 12/23/21 08:05 Dose: Not Given Documented By: JOCELYNE Non-Admin Reason: Patient Refused Loratadine (Loratadine 10 Mg Tablet) 10 mg PO DAILY [facility] Last Admin: 12/23/21 08:04 Dose: 10 mg Documented By: JOCELYNE Magnesium Hydroxide (Milk Of Magnesia 30 Ml Oral.Susp) 15 ml PO BEDTIME PRN PRN Reason: Constipation Last Admin: 11/30/21 19:34 Dose: 15 ml Documented By: ADINA Mineral Oil (Mineral Oil Enema 133 Ml Enema) 133 ml [place] ONCE PRN PRN Reason: constipation Nystatin (Nystatin Powder 15 Gm Bottle) 1 appl TOPICAL TID [facility]; Protocol Last Admin: 12/23/21 14:29 Dose: 1 appl Documented By: JOCELYNE Omeprazole (Omeprazole 20 Mg Capsule.) 20 mg PO BID@0630,1630 [facility] Last Admin: 12/23/21 16:07 Dose: 20 mg Documented By: ZULEIKA Ondansetron HCl (Ondansetron Hcl 4 Mg/2 Ml Vial) 4 mg IVPUSH Q8H PRN PRN Reason: Nausea and Vomiting Pharmacy Consult (Consult Rx Perform Med Rec) 1 each MISCELLANE ONCE PRN PRN Reason: Consult order Polyethylene Glycol (Polyethylene Glycol 3350 17 Gm Powd.Pack) 17 gm PO DAILY [facility] Last Admin: 12/23/21 09:20 Dose: 17 gm Documented By: JOCELYNE Senna/Docusate Sodium (Sennosides/Docusate Sodium Tablet) 1 tab PO DAILY [facility] Last Admin: 12/23/21 09:20 Dose: Not Given Documented By: JOCELYNE Non-Admin Reason: Patient Refused Sodium Chloride (0.9 % Sodium Chloride Flush 3 Ml Syringe) 3 ml IVFLUSH QSHIFT [facility] Last Admin: 12/23/21 16:05 Dose: Not Given Documented By: ZULEIKA Non-Admin Reason: No Access Trazodone HCl (Trazodone Hcl 100 Mg Tablet) 200 mg PO BEDTIME PRN PRN Reason: Insomnia Last Admin: 12/22/21 21:22 Dose: 200 mg Documented By: ZULEIKA Labs CBC & Chem 7: 12/15/21 05:18 12/15/21 05:18 Labs: Laboratory Results - last 24 hr 12/22/21 12/22/21 12/23/21 16:06 20:17 07:22 POC Glucose 103 148 H 121 H 12/23/21 12/23/21 11:24 15:13 POC Glucose 147 H 151 H Assessment and Plan (1) Physical deconditioning: Status: Acute Plan 51 yo F who presented to ED with LE swelling, was awaiting STR placement but noted to have abd swelling and found to have hydronephrosis on abd CT that turns out to be chronic with decreased R kidney function Physical deconditioning Patient unable to ambulate or even stand up at this point from prolonged hospital stay and deconditioning Physical therapy, nursing staff are following with her with a plan to keep ambulating her and trying to get her up on her feet in order to place her to SNF or to go back home if she is able to climb the stairs. morbid obesity discussed importance of weight management as this is likely contributing to worsening of other comorbidities will reweight her today for placement purposes Constipation multiple BMs documented continue bowel regimen Right hand swelling Neg for VTE chronic LE edema/ probable chronic right-sided heart failure US negative for VTE; likely due to obesity, anemia, hypoalbuminemia, and likely R-sided HF echo showing preserved ejection fraction and elevated right atrial pressures IV furosemide changed to oral Lasix chronic hypoxic resp failure likely 2/2 OHS, COPD + asthma overall better prn albuterol 1-2 liters nc at baseline chest/shoulder pain EKG normal and hs-Tn-I normal.? origin is MSK, likely shoulder impingement; continue lidocaine patch, PT/OT R hydronephrosis/proximal ureteral dilation Urology seen- no acute therapy indicated- chronic issue.? Lasix renogram showed diminished R renal function; normal on L.? outpt Uro f/u.? renal function stable. acute/chronic normocytic anemia likely anemia of CKD, improved s/p 1u pRBCs; normal iron studies/B12/FA H/H stable CKD3 Creatinine at baseline UTI treated with Ceftriaxone HTN continue amlodipine HLD continue atorvastatin L knee pain APAP for arthritis pain DM2 A1c 9.2, basal/bolus insulin hypothyroid TSH 20.29, increased LT4 200->250 mcg/d and repeat TSH in 6 wk mood disorder continue fluoxetine GERD PPI OUD Suboxone VTE ppx- [facility] attending -Dr. Dolan Continued hospitalization/dispo - seen by physical therapy; they recommend short-term rehab for optimal functional gains.? however, no STR beds are available in the state due to her weight + Suboxone use + Covid-19 unvaccinated status.? She declines Covid-19 vaccine due to anabaptist beliefs as a [employer]. ? CM broadening search.? PT and OT working with pt to gain ability to get up her stairs herself in which case she could go home with VNA at some point Quality Stroke Does the patient have a stroke diagnosis?: No VTE Prior VTE?: No VTE Risk Level:: Medical - moderate - high VTE Device Contraindication: Treatment Not Indicated VTE Drug Contraindication: N/A - Med Ordered
[2021-12-23 19:13] VITALS: BP 111/54; PULSE 100; RESP 20; TEMP 36.7; O2SAT 97
[2021-12-23 19:42] LABS: Glucose, Whole Blood 130 mg/dL (60-115)
[2021-12-23] MEDS: Atorvastatin Calcium 80 MG TABLET PO (21:29)
[2021-12-23] MEDS: Insulin Glargine,Hum.rec.anlog 100 UNIT/ML 10 ML VIAL 18 UNIT SUBCUT (21:31)
[2021-12-23] MEDS: traZODone HCL 100 MG TABLET 200 MG PO (21:44)
[2021-12-24 00:03] VITALS: BP 129/62; PULSE 80; RESP 18; TEMP 36.1; O2SAT 94
[2021-12-24 03:45] VITALS: BP 135/74; PULSE 76; RESP 18; TEMP 36.1; O2SAT 96
[2021-12-24] MEDS: Levothyroxine Sodium 125 MCG TABLET 250 MCG PO (06:49)
[2021-12-24] MEDS: Heparin Sodium,Porcine 5,000 UNIT/ML VIAL 5000 UNIT SUBCUT ×3 (06:49→20:32)
[2021-12-24] MEDS: Omeprazole 20 MG CAPSULE.DR PO ×2 (06:49→16:16)
[2021-12-24 07:17] VITALS: BP 144/78; PULSE 81; RESP 16; TEMP 36; O2SAT 94
[2021-12-24 07:37] LABS: Glucose, Whole Blood 134 mg/dL (60-115)
[2021-12-24] MEDS: Lidocaine 4 % Patch ADH..PATCH 1 PATCH TRANSDERMA (07:57)
[2021-12-24] MEDS: Insulin Lispro 100 UNIT/ML 3 ML VIAL SUBCUT ×4 (07:59→20:32)
[2021-12-24] MEDS: 0.9 % Sodium Chloride Flush 3 ML SYRINGE IVFLUSH (07:59)
[2021-12-24] MEDS: Loratadine 10 MG TABLET PO (08:00)
[2021-12-24] MEDS: Gabapentin 600 MG TABLET PO ×3 (08:00→20:31)
[2021-12-24] MEDS: Aspirin Enteric Coated 81 MG TABLET.DR PO (08:00)
[2021-12-24] MEDS: FLUoxetine HCl 20 MG CAPSULE 60 MG PO (08:00)
[2021-12-24] MEDS: amLODIPine Besylate 5 MG TABLET PO (08:00)
[2021-12-24] MEDS: Furosemide 40 MG TABLET PO ×2 (08:01→16:55)
[2021-12-24] MEDS: Nystatin Powder 15 GM BOTTLE 1 APPL TOPICAL ×3 (08:01→20:33)
[2021-12-24] MEDS: Ammonium Lactate 12 % Lotion 226 GM BOTTLE 1 APPL TOPICAL ×2 (08:02→20:33)
[2021-12-24] MEDS: clonazePAM 0.5 MG TABLET PO (08:08)
[2021-12-24] MEDS: Ibuprofen 400 MG TABLET PO (08:08)
[2021-12-24] MEDS: Acetaminophen 325 MG TABLET 650 MG PO (08:09)
[2021-12-24] MEDS: Buprenorphine/Naloxone 8/2 mg FILM 1 FILM SUBLINGUAL ×3 (08:35→20:33)
--- NOTE | 2021-12-24 10:14 | P.PNIM_ITS ---
Subjective Subjective Date of Service: 12/24/21 Review of Systems Follow up placement no pain or discomfort at this time Physical Exam Vital Signs: Vital Signs: Last Vital Signs Temp 96.8 F 12/24/21 07:17 Pulse 81 12/24/21 07:17 Resp 16 12/24/21 07:17 BP 144/78 H 12/24/21 07:17 Pulse Ox 94 12/24/21 07:17 O2 Del Method 12/24/21 07:17 O2 Flow Rate 2 12/24/21 07:17 BMI result Body Mass Index 61.2 Appearing in no acute distress lung sounds are clear to auscultation heart regular rate rhythm, clear S1, S2 positive bowel sounds, abdomen is soft, nontender neuro patient is alert x3, no focal deficits Objective Data Active Medications Acetaminophen (Acetaminophen 325 Mg Tablet) 650 mg PO Q6H PRN PRN Reason: Pain, Mild (Pain Scale 1-3) Last Admin: 12/24/21 08:09 Dose: 650 mg Documented By: SANJEEV Albuterol Sulfate (Albuterol Sulfate 90 Mcg 8 Gm Inhaler) 2 puff INHALE Q4H PRN PRN Reason: wheezing Amlodipine Besylate (Amlodipine Besylate 5 Mg Tablet) 5 mg PO DAILY [facility]; Protocol Last Admin: 12/24/21 08:00 Dose: 5 mg Documented By: SANJEEV Aspirin (Aspirin Enteric Coated 81 Mg Tablet.) 81 mg PO DAILY [facility] Last Admin: 12/24/21 08:00 Dose: 81 mg Documented By: SANJEEV Atorvastatin Calcium (Atorvastatin Calcium 80 Mg Tablet) 80 mg PO BEDTIME [facility] Last Admin: 12/23/21 21:29 Dose: 80 mg Documented By: ZULEIKA Buprenorphine/Naloxone (Buprenorphine/Naloxone 8/2 Mg Film) 1 film SUBLINGUAL TID [facility] Last Admin: 12/24/21 08:35 Dose: 1 film Documented By: SANJEEV Clonazepam (Clonazepam 0.5 Mg Tablet) 0.5 mg PO DAILY PRN PRN Reason: Anxiety Last Admin: 12/24/21 08:08 Dose: 0.5 mg Documented By: SANJEEV Fluoxetine HCl (Fluoxetine Hcl 20 Mg Capsule) 60 mg PO DAILY [facility] Last Admin: 12/24/21 08:00 Dose: 60 mg Documented By: SANJEEV Furosemide (Furosemide 40 Mg Tablet) 40 mg PO BID@0900,1800 [facility]; Protocol Last Admin: 12/24/21 08:01 Dose: 40 mg Documented By: SANJEEV Gabapentin (Gabapentin 600 Mg Tablet) 600 mg PO TID [facility] Last Admin: 12/24/21 08:00 Dose: 600 mg Documented By: SANJEEV Heparin Sodium (Porcine) (Heparin Sodium,Porcine 5,000 Unit/Ml Vial) 5,000 unit SUBCUT Q8H [facility] Last Admin: 12/24/21 06:49 Dose: 5,000 unit Documented By: ANNA MARIE Ibuprofen (Ibuprofen 400 Mg Tablet) 400 mg PO Q6H PRN PRN Reason: moderate pain Last Admin: 12/24/21 08:08 Dose: 400 mg Documented By: SANJEEV Insulin Glargine (Insulin Glargine,Hum.Rec.Anlog 100 Unit/Ml 10 Ml Vial) 18 unit SUBCUT BEDTIME [facility] Last Admin: 12/23/21 21:31 Dose: 18 unit Documented By: ZULEIKA Insulin Human Lispro (Insulin Lispro 100 Unit/Ml 3 Ml Vial) 0 unit SUBCUT QIDACHS [facility]; Protocol Last Admin: 12/24/21 07:59 Dose: Not Given Documented By: SANJEEV Non-Admin Reason: No Insulin Coverage Insulin Human Lispro (Insulin Lispro 100 Unit/Ml 3 Ml Vial) 5 unit SUBCUT QIDACHS [facility] Last Admin: 12/24/21 07:59 Dose: 5 unit Documented By: SANJEEV Lactic Acid (Ammonium Lactate 12 % Lotion 226 Gm Bottle) 1 appl TOPICAL BID S ; Protocol Last Admin: 12/24/21 08:02 Dose: 1 appl Documented By: SANJEEV Levothyroxine Sodium (Levothyroxine Sodium 125 Mcg Tablet) 250 mcg PO DAILY@0630 [facility] Last Admin: 12/24/21 06:49 Dose: 250 mcg Documented By: ANNA MARIE Lidocaine (Lidocaine 4 % Patch Adh..Patch) 1 patch TRANSDERMA DAILY [facility]; Protocol Last Admin: 12/24/21 07:57 Dose: 1 patch Documented By: SANJEEV Lidocaine (Lidocaine 4 % Patch Adh..Patch) 1 patch TRANSDERMA DAILY [facility]; Suhas col Last Admin: 12/24/21 08:14 Dose: Not Given Documented By: SANJEEV Non-Admin Reason: Patient Refused Loratadine (Loratadine 10 Mg Tablet) 10 mg PO DAILY [facility] Last Admin: 12/24/21 08:00 Dose: 10 mg Documented By: SANJEEV Magnesium Hydroxide (Milk Of Magnesia 30 Ml Oral.Susp) 15 ml PO BEDTIME PRN PRN Reason: Constipation Last Admin: 11/30/21 19:34 Dose: 15 ml Documented By: ADINA Mineral Oil (Mineral Oil Enema 133 Ml Enema) 133 ml [place] ONCE PRN PRN Reason: constipation Nystatin (Nystatin Powder 15 Gm Bottle) 1 appl TOPICAL TID [facility]; Protocol Last Admin: 12/24/21 08:01 Dose: 1 appl Documented By: SANJEEV Omeprazole (Omeprazole 20 Mg Capsule.Dr) 20 mg PO BID@0630,1630 [facility] Last Admin: 12/24/21 06:49 Dose: 20 mg Documented By: ANNA MARIE Ondansetron HCl (Ondansetron Hcl 4 Mg/2 Ml Vial) 4 mg IVPUSH Q8H PRN PRN Reason: Nausea and Vomiting Pharmacy Consult (Consult Rx Perform Med Rec) 1 each MISCELLANE ONCE PRN PRN Reason: Consult order Polyethylene Glycol (Polyethylene Glycol 3350 17 Gm Powd.Pack) 17 gm PO DAILY [facility] Last Admin: 12/24/21 08:12 Dose: Not Given Documented By: SANJEEV Non-Admin Reason: Patient Refused Senna/Docusate Sodium (Sennosides/Docusate Sodium Tablet) 1 tab PO DAILY [facility] Last Admin: 12/24/21 08:35 Dose: Not Given Documented By: SANJEEV Non-Admin Reason: Patient Refused Sodium Chloride (0.9 % Sodium Chloride Flush 3 Ml Syringe) 3 ml IVFLUSH QSHIFT [facility] Last Admin: 12/24/21 07:59 Dose: 3 ml Documented By: SANJEEV Trazodone HCl (Trazodone Hcl 100 Mg Tablet) 200 mg PO BEDTIME PRN PRN Reason: Insomnia Last Admin: 12/23/21 21:44 Dose: 200 mg Documented By: ZULEIKA Labs CBC & Chem 7: 12/15/21 05:18 12/15/21 05:18 Labs: Laboratory Results - last 24 hr 12/23/21 12/23/21 12/23/21 11:24 15:13 19:29 POC Glucose 147 H 151 H 130 H 12/24/21 07:19 POC Glucose 134 H Assessment and Plan (1) Physical deconditioning: Status: Acute Plan 51 yo F who presented to ED with LE swelling, was awaiting STR placement but noted to have abd swelling and found to have hydronephrosis on abd CT that turns out to be chronic with decreased R kidney function No medical changes Physical deconditioning Patient unable to ambulate or even stand up at this point from prolonged hospital stay and deconditioning Physical therapy, nursing staff are following with her with a plan to keep ambulating her and trying to get her up on her feet in order to place her to SNF or to go back home if she is able to climb the stairs. morbid obesity discussed importance of weight management as this is likely contributing to worsening of other comorbidities will reweight her today for placement purposes Constipation multiple BMs documented continue bowel regimen Right hand swelling Neg for VTE chronic LE edema/ probable chronic right-sided heart failure US negative for VTE; likely due to obesity, anemia, hypoalbuminemia, and likely R-sided HF echo showing preserved ejection fraction and elevated right atrial pressures IV furosemide changed to oral Lasix chronic hypoxic resp failure likely 2/2 OHS, COPD + asthma overall better prn albuterol 1-2 liters nc at baseline chest/shoulder pain EKG normal and hs-Tn-I normal.? origin is MSK, likely shoulder impingement; continue lidocaine patch, PT/OT R hydronephrosis/proximal ureteral dilation Urology seen- no acute therapy indicated- chronic issue.? Lasix renogram showed diminished R renal function; normal on L.? outpt Uro f/u.? renal function stable. acute/chronic normocytic anemia likely anemia of CKD, improved s/p 1u pRBCs; normal iron studies/B12/FA H/H stable CKD3 Creatinine at baseline UTI treated with Ceftriaxone HTN continue amlodipine HLD continue atorvastatin L knee pain APAP for arthritis pain DM2 A1c 9.2, basal/bolus insulin hypothyroid TSH 20.29, increased LT4 200->250 mcg/d and repeat TSH in 6 wk mood disorder continue fluoxetine GERD PPI OUD Suboxone VTE ppx- [facility] attending -Dr. Garcias Continued hospitalization/dispo - seen by physical therapy; they recommend short-term rehab for optimal functional gains.? however, no STR beds are available in the state due to her weight + Suboxone use + Covid-19 unvaccinated status.? She declines Covid-19 vaccine due to adventism beliefs as a [employer]. ? CM broadening search.? PT and OT working with pt to gain ability to get up her stairs herself in which case she could go home with VNA at some point Quality Stroke Does the patient have a stroke diagnosis?: No VTE Prior VTE?: No VTE Risk Level:: Medical - moderate - high VTE Device Contraindication: Treatment Not Indicated VTE Drug Contraindication: N/A - Med Ordered
[2021-12-24 11:33] VITALS: BP 137/77; PULSE 77; RESP 16; TEMP 36; O2SAT 97
[2021-12-24 11:39] LABS: Glucose, Whole Blood 121 mg/dL (60-115)
[2021-12-24 16:00] VITALS: BP 128/69; PULSE 78; RESP 18; TEMP 36.6; O2SAT 96
[2021-12-24 16:38] LABS: Glucose, Whole Blood 116 mg/dL (60-115)
[2021-12-24 20:00] VITALS: BP 122/66; PULSE 77; RESP 18; TEMP 36.6; O2SAT 97
[2021-12-24 20:17] LABS: Glucose, Whole Blood 118 mg/dL (60-115)
[2021-12-24] MEDS: Insulin Glargine,Hum.rec.anlog 100 UNIT/ML 10 ML VIAL 18 UNIT SUBCUT (20:32)
[2021-12-24] MEDS: Atorvastatin Calcium 80 MG TABLET PO (20:32)
[2021-12-24] MEDS: traZODone HCL 100 MG TABLET 200 MG PO (20:40)
[2021-12-25] VITALS (7 sets, daily range): BP systolic 121–145; BP diastolic 57–78; PULSE 74–86; RESP 16–20; TEMP 36.1–36.6; O2SAT 93–97
[2021-12-25] MEDS: Levothyroxine Sodium 125 MCG TABLET 250 MCG PO (05:39)
[2021-12-25] MEDS: Heparin Sodium,Porcine 5,000 UNIT/ML VIAL 5000 UNIT SUBCUT ×3 (05:39→20:40)
[2021-12-25] MEDS: Omeprazole 20 MG CAPSULE.DR PO ×2 (05:39→16:53)
[2021-12-25 07:28] LABS: Glucose, Whole Blood 131 mg/dL (60-115)
[2021-12-25] MEDS: Ibuprofen 400 MG TABLET PO (08:04)
[2021-12-25] MEDS: Insulin Lispro 100 UNIT/ML 3 ML VIAL SUBCUT ×5 (08:04→20:40)
[2021-12-25] MEDS: Gabapentin 600 MG TABLET PO ×3 (08:05→20:39)
[2021-12-25] MEDS: amLODIPine Besylate 5 MG TABLET PO (08:05)
[2021-12-25] MEDS: Acetaminophen 325 MG TABLET 650 MG PO (08:05)
[2021-12-25] MEDS: Furosemide 40 MG TABLET PO ×2 (08:06→18:19)
[2021-12-25] MEDS: Loratadine 10 MG TABLET PO (08:06)
[2021-12-25] MEDS: Aspirin Enteric Coated 81 MG TABLET.DR PO (08:06)
[2021-12-25] MEDS: FLUoxetine HCl 20 MG CAPSULE 60 MG PO (08:06)
[2021-12-25] MEDS: polyethylene glycoL 3350 17 GM POWD.PACK PO (08:07)
[2021-12-25] MEDS: Lidocaine 4 % Patch ADH..PATCH 1 PATCH TRANSDERMA (08:07)
[2021-12-25] MEDS: clonazePAM 0.5 MG TABLET PO (08:08)
[2021-12-25] MEDS: Buprenorphine/Naloxone 8/2 mg FILM 1 FILM SUBLINGUAL ×3 (08:50→20:40)
[2021-12-25] MEDS: Ammonium Lactate 12 % Lotion 226 GM BOTTLE 1 APPL TOPICAL ×2 (08:51→20:45)
--- NOTE | 2021-12-25 09:47 | P.PNIM_ITS ---
Subjective Subjective Date of Service: 12/25/21 Review of Systems Follow up placement no pain or discomfort at this time Physical Exam Vital Signs: Vital Signs: Last Vital Signs Temp 97.1 F 12/25/21 07:17 Pulse 86 12/25/21 07:17 Resp 16 12/25/21 07:17 BP 140/71 H 12/25/21 07:17 Pulse Ox 96 12/25/21 07:17 O2 Del Method 12/25/21 07:17 O2 Flow Rate 2 12/25/21 07:17 BMI result Body Mass Index 61.2 Appearing in no acute distress lung sounds are clear to auscultation heart regular rate rhythm, clear S1, S2 positive bowel sounds, abdomen is soft, nontender neuro patient is alert x3, no focal deficits obese Objective Data Active Medications Acetaminophen (Acetaminophen 325 Mg Tablet) 650 mg PO Q6H PRN PRN Reason: Pain, Mild (Pain Scale 1-3) Last Admin: 12/25/21 08:05 Dose: 650 mg Documented By: CHARIS Albuterol Sulfate (Albuterol Sulfate 90 Mcg 8 Gm Inhaler) 2 puff INHALE Q4H PRN PRN Reason: wheezing Amlodipine Besylate (Amlodipine Besylate 5 Mg Tablet) 5 mg PO DAILY [facility]; Protocol Last Admin: 12/25/21 08:05 Dose: 5 mg Documented By: CHARIS Aspirin (Aspirin Enteric Coated 81 Mg Tablet.) 81 mg PO DAILY [facility] Last Admin: 12/25/21 08:06 Dose: 81 mg Documented By: CHARIS Atorvastatin Calcium (Atorvastatin Calcium 80 Mg Tablet) 80 mg PO BEDTIME [facility] Last Admin: 12/24/21 20:32 Dose: 80 mg Documented By: ALEJANDRA Buprenorphine/Naloxone (Buprenorphine/Naloxone 8/2 Mg Film) 1 film SUBLINGUAL TID [facility] Last Admin: 12/25/21 08:50 Dose: 1 film Documented By: CHARIS Clonazepam (Clonazepam 0.5 Mg Tablet) 0.5 mg PO DAILY PRN PRN Reason: Anxiety Last Admin: 12/25/21 08:08 Dose: 0.5 mg Documented By: CHARIS Fluoxetine HCl (Fluoxetine Hcl 20 Mg Capsule) 60 mg PO DAILY [facility] Last Admin: 12/25/21 08:06 Dose: 60 mg Documented By: CHARIS Furosemide (Furosemide 40 Mg Tablet) 40 mg PO BID@0900,1800 [facility]; Protocol Last Admin: 12/25/21 08:06 Dose: 40 mg Documented By: CHARIS Gabapentin (Gabapentin 600 Mg Tablet) 600 mg PO TID [facility] Last Admin: 12/25/21 08:05 Dose: 600 mg Documented By: CHARIS Heparin Sodium (Porcine) (Heparin Sodium,Porcine 5,000 Unit/Ml Vial) 5,000 unit SUBCUT Q8H [facility] Last Admin: 12/25/21 05:39 Dose: 5,000 unit Documented By: ALEJANDRA Ibuprofen (Ibuprofen 400 Mg Tablet) 400 mg PO Q6H PRN PRN Reason: moderate pain Last Admin: 12/25/21 08:04 Dose: 400 mg Documented By: CHARIS Insulin Glargine (Insulin Glargine,Hum.Rec.Anlog 100 Unit/Ml 10 Ml Vial) 18 unit SUBCUT BEDTIME [facility] Last Admin: 12/24/21 20:32 Dose: 18 unit Documented By: ALEJANDRA Insulin Human Lispro (Insulin Lispro 100 Unit/Ml 3 Ml Vial) 0 unit SUBCUT QIDACHS [facility]; Protocol Last Admin: 12/25/21 07:31 Dose: Not Given Documented By: CHARIS Non-Admin Reason: No Insulin Coverage Insulin Human Lispro (Insulin Lispro 100 Unit/Ml 3 Ml Vial) 5 unit SUBCUT QIDACHS [facility] Last Admin: 12/25/21 08:04 Dose: 5 unit Documented By: CHARIS Lactic Acid (Ammonium Lactate 12 % Lotion 226 Gm Bottle) 1 appl TOPICAL BID [facility]; Protocol Last Admin: 12/25/21 08:51 Dose: 1 appl Documented By: CHARIS Levothyroxine Sodium (Levothyroxine Sodium 125 Mcg Tablet) 250 mcg PO DAILY@0630 [facility] Last Admin: 12/25/21 05:39 Dose: 250 mcg Documented By: ALEJANDRA Lidocaine (Lidocaine 4 % Patch Adh..Patch) 1 patch TRANSDERMA DAILY [facility]; Protocol Last Admin: 12/25/21 08:07 Dose: 1 patch Documented By: CHARIS Lidocaine (Lidocaine 4 % Patch Adh..Patch) 1 patch TRANSDERMA DAILY [facility]; Protocol Last Admin: 12/25/21 08:18 Dose: Not Given Documented By: CHARIS Non-Admin Reason: Duplicate Order Loratadine (Loratadine 10 Mg Tablet) 10 mg PO DAILY [facility] Last Admin: 12/25/21 08:06 Dose: 10 mg Documented By: CHARIS Magnesium Hydroxide (Milk Of Magnesia 30 Ml Oral.Susp) 15 ml PO BEDTIME PRN PRN Reason: Constipation Last Admin: 11/30/21 19:34 Dose: 15 ml Documented By: ADINA Mineral Oil (Mineral Oil Enema 133 Ml Enema) 133 ml [place] ONCE PRN PRN Reason: constipation Nystatin (Nystatin Powder 15 Gm Bottle) 1 appl TOPICAL TID [facility]; Protocol Last Admin: 12/24/21 20:33 Dose: 1 appl Documented By: ALEJANDRA Omeprazole (Omeprazole 20 Mg Capsule.Dr) 20 mg PO BID@0630,1630 [facility] Last Admin: 12/25/21 05:39 Dose: 20 mg Documented By: ALEJANDRA Ondansetron HCl (Ondansetron Hcl 4 Mg/2 Ml Vial) 4 mg IVPUSH Q8H PRN PRN Reason: Nausea and Vomiting Pharmacy Consult (Consult Rx Perform Med Rec) 1 each MISCELLANE ONCE PRN PRN Reason: Consult order Polyethylene Glycol (Polyethylene Glycol 3350 17 Gm Powd.Pack) 17 gm PO DAILY [facility] Last Admin: 12/25/21 08:07 Dose: 17 gm Documented By: CHARIS Senna/Docusate Sodium (Sennosides/Docusate Sodium Tablet) 1 tab PO DAILY [facility] Last Admin: 12/24/21 08:35 Dose: Not Given Documented By: SANJEEV Non-Admin Reason: Patient Refused Sodium Chloride (0.9 % Sodium Chloride Flush 3 Ml Syringe) 3 ml IVFLUSH QSHIFT [facility] Last Admin: 12/25/21 08:17 Dose: Not Given Documented By: CHARIS Non-Admin Reason: No Access Trazodone HCl (Trazodone Hcl 100 Mg Tablet) 200 mg PO BEDTIME PRN PRN Reason: Insomnia Last Admin: 12/24/21 20:40 Dose: 200 mg Documented By: ALEJANDRA Labs CBC & Chem 7: 12/15/21 05:18 12/15/21 05:18 Labs: Laboratory Results - last 24 hr 12/24/21 12/24/21 12/24/21 11:35 16:30 20:08 POC Glucose 121 H 116 H 118 H 12/25/21 07:19 POC Glucose 131 H Assessment and Plan (1) Physical deconditioning: Status: Acute Plan 51 yo F who presented to ED with LE swelling, was awaiting STR placement but noted to have abd swelling and found to have hydronephrosis on abd CT that turns out to be chronic with decreased R kidney function No medical changes Physical deconditioning Patient unable to ambulate or even stand up at this point from prolonged hospital stay and deconditioning Physical therapy, nursing staff are following with her with a plan to keep ambulating her and trying to get her up on her feet in order to place her to SNF or to go back home if she is able to climb the stairs. morbid obesity discussed importance of weight management as this is likely contributing to worsening of other comorbidities will reweight her today for placement purposes Constipation multiple BMs documented continue bowel regimen Right hand swelling Neg for VTE chronic LE edema/ probable chronic right-sided heart failure US negative for VTE; likely due to obesity, anemia, hypoalbuminemia, and likely R-sided HF echo showing preserved ejection fraction and elevated right atrial pressures IV furosemide changed to oral Lasix chronic hypoxic resp failure likely 2/2 OHS, COPD + asthma overall better prn albuterol 1-2 liters nc at baseline chest/shoulder pain EKG normal and hs-Tn-I normal.? origin is MSK, likely shoulder impingement; continue lidocaine patch, PT/OT R hydronephrosis/proximal ureteral dilation Urology seen- no acute therapy indicated- chronic issue.? Lasix renogram showed diminished R renal function; normal on L.? outpt Uro f/u.? renal function stabl e. acute/chronic normocytic anemia likely anemia of CKD, improved s/p 1u pRBCs; normal iron studies/B12/FA H/H stable CKD3 Creatinine at baseline UTI treated with Ceftriaxone HTN continue amlodipine HLD continue atorvastatin L knee pain APAP for arthritis pain DM2 A1c 9.2, basal/bolus insulin hypothyroid TSH 20.29, increased LT4 200->250 mcg/d and repeat TSH in 6 wk mood disorder continue fluoxetine GERD PPI OUD Suboxone VTE ppx- [facility] attending -Dr. Garcias Continued hospitalization/dispo - seen by physical therapy; they recommend short-term rehab for optimal functional gains.? however, no STR beds are available in the state due to her weight + Suboxone use + Covid-19 unvaccinated status.? She declines Covid-19 vaccine due to tenriism beliefs as a [employer]. ? CM broadening search.? PT and OT working with pt to gain ability to get up her stairs herself in which case she could go home with VNA at some point Quality Stroke Does the patient have a stroke diagnosis?: No VTE Prior VTE?: No VTE Risk Level:: Medical - moderate - high VTE Device Contraindication: Treatment Not Indicated VTE Drug Contraindication: N/A - Med Ordered
[2021-12-25 11:24] LABS: Glucose, Whole Blood 145 mg/dL (60-115)
[2021-12-25 16:51] LABS: Glucose, Whole Blood 153 mg/dL (60-115)
[2021-12-25 20:07] LABS: Glucose, Whole Blood 136 mg/dL (60-115)
[2021-12-25] MEDS: Atorvastatin Calcium 80 MG TABLET PO (20:39)
[2021-12-25] MEDS: Insulin Glargine,Hum.rec.anlog 100 UNIT/ML 10 ML VIAL 18 UNIT SUBCUT (20:39)
[2021-12-25] MEDS: traZODone HCL 100 MG TABLET 200 MG PO (20:40)
[2021-12-25] MEDS: Nystatin Powder 15 GM BOTTLE 1 APPL TOPICAL (20:46)
[2021-12-26 03:35] VITALS: RESP 18
[2021-12-26] MEDS: Levothyroxine Sodium 125 MCG TABLET 250 MCG PO (05:21)
[2021-12-26] MEDS: Omeprazole 20 MG CAPSULE.DR PO ×2 (05:21→15:52)
[2021-12-26] MEDS: Heparin Sodium,Porcine 5,000 UNIT/ML VIAL 5000 UNIT SUBCUT ×3 (05:21→20:35)
[2021-12-26 07:42] LABS: Glucose, Whole Blood 116 mg/dL (60-115)
[2021-12-26 08:00] VITALS: BP 141/69; PULSE 80; RESP 17; TEMP 36.2; O2SAT 94
--- NOTE | 2021-12-26 08:34 | P.PNIM_ITS ---
Subjective Subjective Date of Service: 12/26/21 Review of Systems Follow up placement no pain or discomfort at this time Physical Exam Vital Signs: Vital Signs: Last Vital Signs Temp 97.2 F 12/26/21 08:00 Pulse 80 12/26/21 08:00 Resp 17 12/26/21 08:00 BP 141/69 H 12/26/21 08:00 Pulse Ox 94 12/26/21 08:00 O2 Del Method 12/26/21 08:00 O2 Flow Rate 2 12/26/21 08:00 BMI result Body Mass Index 61.2 Appearing in no acute distress lung sounds are clear to auscultation heart regular rate rhythm, clear S1, S2 positive bowel sounds, abdomen is soft, nontender neuro patient is alert x3, no focal deficits Obese Objective Data Active Medications Acetaminophen (Acetaminophen 325 Mg Tablet) 650 mg PO Q6H PRN PRN Reason: Pain, Mild (Pain Scale 1-3) Last Admin: 12/25/21 08:05 Dose: 650 mg Documented By: CHARIS Albuterol Sulfate (Albuterol Sulfate 90 Mcg 8 Gm Inhaler) 2 puff INHALE Q4H PRN PRN Reason: wheezing Amlodipine Besylate (Amlodipine Besylate 5 Mg Tablet) 5 mg PO DAILY [facility]; Protocol Last Admin: 12/25/21 08:05 Dose: 5 mg Documented By: CHARIS Aspirin (Aspirin Enteric Coated 81 Mg Tablet.) 81 mg PO DAILY [facility] Last Admin: 12/25/21 08:06 Dose: 81 mg Documented By: CHARIS Atorvastatin Calcium (Atorvastatin Calcium 80 Mg Tablet) 80 mg PO BEDTIME [facility] Last Admin: 12/25/21 20:39 Dose: 80 mg Documented By: SUSHANT Buprenorphine/Naloxone (Buprenorphine/Naloxone 8/2 Mg Film) 1 film SUBLINGUAL TID [facility] Last Admin: 12/25/21 20:40 Dose: 1 film Documented By: SUSHANT Clonazepam (Clonazepam 0.5 Mg Tablet) 0.5 mg PO DAILY PRN PRN Reason: Anxiety Last Admin: 12/25/21 08:08 Dose: 0.5 mg Documented By: CHARIS Fluoxetine HCl (Fluoxetine Hcl 20 Mg Capsule) 60 mg PO DAILY [facility] Last Admin: 12/25/21 08:06 Dose: 60 mg Documented By: CHARIS Furosemide (Furosemide 40 Mg Tablet) 40 mg PO BID@0900,1800 [facility]; Protocol Last Admin: 12/25/21 18:19 Dose: 40 mg Documented By: FLASH Gabapentin (Gabapentin 600 Mg Tablet) 600 mg PO TID [facility] Last Admin: 12/25/21 20:39 Dose: 600 mg Documented By: SUSHANT Heparin Sodium (Porcine) (Heparin Sodium,Porcine 5,000 Unit/Ml Vial) 5,000 unit SUBCUT Q8H [facility] Last Admin: 12/26/21 05:21 Dose: 5,000 unit Documented By: SUSHANT Ibuprofen (Ibuprofen 400 Mg Tablet) 400 mg PO Q6H PRN PRN Reason: moderate pain Last Admin: 12/25/21 08:04 Dose: 400 mg Documented By: CHARIS Insulin Glargine (Insulin Glargine,Hum.Rec.Anlog 100 Unit/Ml 10 Ml Vial) 18 unit SUBCUT BEDTIME [facility] Last Admin: 12/25/21 20:39 Dose: 18 unit Documented By: SUSHANT Insulin Human Lispro (Insulin Lispro 100 Unit/Ml 3 Ml Vial) 0 unit SUBCUT QIDACHS [facility]; Protocol Last Admin: 12/25/21 20:15 Dose: Not Given Documented By: SUSHANT Non-Admin Reason: No Insulin Coverage Insulin Human Lispro (Insulin Lispro 100 Unit/Ml 3 Ml Vial) 5 unit SUBCUT QIDACHS [facility] Last Admin: 12/25/21 20:40 Dose: 5 unit Documented By: SUSHANT Lactic Acid (Ammonium Lactate 12 % Lotion 226 Gm Bottle) 1 appl TOPICAL BID [facility]; Protocol Last Admin: 12/25/21 20:45 Dose: 1 appl Documented By: SUSHANT Levothyroxine Sodium (Levothyroxine Sodium 125 Mcg Tablet) 250 mcg PO DAILY@0630 [facility] Last Admin: 12/26/21 05:21 Dose: 250 mcg Documented By: SUSHANT Lidocaine (Lidocaine 4 % Patch Adh..Patch) 1 patch TRANSDERMA DAILY [facility]; Protocol Last Admin: 12/25/21 08:07 Dose: 1 patch Documented By: CHARIS Lidocaine (Lidocaine 4 % Patch Adh..Patch) 1 patch TRANSDERMA DAILY [facility]; Protocol Last Admin: 12/25/21 08:18 Dose: Not Given Documented By: CHARIS Non-Admin Reason: Duplicate Order Loratadine (Loratadine 10 Mg Tablet) 10 mg PO DAILY [facility] Last Admin: 12/25/21 08:06 Dose: 10 mg Documented By: CHARIS Magnesium Hydroxide (Milk Of Magnesia 30 Ml Oral.Susp) 15 ml PO BEDTIME PRN PRN Reason: Constipation Last Admin: 11/30/21 19:34 Dose: 15 ml Documented By: ADINA Mineral Oil (Mineral Oil Enema 133 Ml Enema) 133 ml [place] ONCE PRN PRN Reason: constipation Nystatin (Nystatin Powder 15 Gm Bottle) 1 appl TOPICAL TID [facility]; Protocol Last Admin: 12/25/21 20:46 Dose: 1 appl Documented By: SUSHANT Omeprazole (Omeprazole 20 Mg Capsule.Dr) 20 mg PO BID@0630,1630 [facility] Last Admin: 12/26/21 05:21 Dose: 20 mg Documented By: SUSHANT Ondansetron HCl (Ondansetron Hcl 4 Mg/2 Ml Vial) 4 mg IVPUSH Q8H PRN PRN Reason: Nausea and Vomiting Pharmacy Consult (Consult Rx Perform Med Rec) 1 each MISCELLANE ONCE PRN PRN Reason: Consult order Polyethylene Glycol (Polyethylene Glycol 3350 17 Gm Powd.Pack) 17 gm PO DAILY [facility] Last Admin: 12/25/21 08:07 Dose: 17 gm Documented By: CHARIS Senna/Docusate Sodium (Sennosides/Docusate Sodium Tablet) 1 tab PO DAILY [facility] Last Admin: 12/25/21 10:02 Dose: Not Given Documented By: CHARIS Non-Admin Reason: Patient Refused Sodium Chloride (0.9 % Sodium Chloride Flush 3 Ml Syringe) 3 ml IVFLUSH QSHIFT [facility] Last Admin: 12/25/21 22:35 Dose: Not Given Documented By: SUSHANT Non-Admin Reason: No Access Trazodone HCl (Trazodone Hcl 100 Mg Tablet) 200 mg PO BEDTIME PRN PRN Reason: Insomnia Last Admin: 12/25/21 20:40 Dose: 200 mg Documented By: SUSHANT Labs CBC & Chem 7: 12/15/21 05:18 12/15/21 05:18 Labs: Laboratory Results - last 24 hr 12/25/21 12/25/21 12/25/21 11:08 15:34 19:45 POC Glucose 145 H 153 H 136 H 12/26/21 07:22 POC Glucose 116 H Assessment and Plan (1) Physical deconditioning: Status: Acute Plan 51 yo F who presented to ED with LE swelling, was awaiting STR placement but noted to have abd swelling and found to have hydronephrosis on abd CT that turns out to be chronic with decreased R kidney function No medical changes Physical deconditioning Patient unable to ambulate or even stand up at this point from prolonged hospital stay and deconditioning Physical therapy, nursing staff are following with her with a plan to keep ambulating her and trying to get her up on her feet in order to place her to SNF or to go back home if she is able to climb the stairs. encourage OOB to chair daily morbid obesity discussed importance of weight management as this is likely contributing to worsening of other comorbidities will reweight her today for placement purposes Constipation multiple BMs documented continue bowel regimen Right hand swelling Neg for VTE chronic LE edema/ probable chronic right-sided heart failure US negative for VTE; likely due to obesity, anemia, hypoalbuminemia, and likely R-sided HF echo showing preserved ejection fraction and elevated right atrial pressures IV furosemide changed to oral Lasix chronic hypoxic resp failure likely 2/2 OHS, COPD + asthma overall better prn albuterol 1-2 liters nc at baseline chest/shoulder pain EKG normal and hs-Tn-I normal.? origin is MSK, likely shoulder impingement; c ontinue lidocaine patch, PT/OT R hydronephrosis/proximal ureteral dilation Urology seen- no acute therapy indicated- chronic issue.? Lasix renogram showed diminished R renal function; normal on L.? outpt Uro f/u.? renal function stable. acute/chronic normocytic anemia likely anemia of CKD, improved s/p 1u pRBCs; normal iron studies/B12/FA H/H stable CKD3 Creatinine at baseline UTI treated with Ceftriaxone HTN continue amlodipine HLD continue atorvastatin L knee pain APAP for arthritis pain DM2 A1c 9.2, basal/bolus insulin hypothyroid TSH 20.29, increased LT4 200->250 mcg/d and repeat TSH in 6 wk mood disorder continue fluoxetine GERD PPI OUD Suboxone VTE ppx- [facility] attending -Dr. Dolan Continued hospitalization/dispo - seen by physical therapy; they recommend short-term rehab for optimal functional gains.? however, no STR beds are available in the state due to her weight + Suboxone use + Covid-19 unvaccinated status.? She declines Covid-19 vaccine due to adventism beliefs as a Hinduism. ? CM broadening search.? PT and OT working with pt to gain ability to get up her stairs herself in which case she could go home with VNA at some point Quality Stroke Does the patient have a stroke diagnosis?: No VTE Prior VTE?: No VTE Risk Level:: Medical - moderate - high VTE Device Contraindication: Treatment Not Indicated VTE Drug Contraindication: N/A - Med Ordered
[2021-12-26] MEDS: Furosemide 40 MG TABLET PO ×2 (08:42→18:45)
[2021-12-26] MEDS: Buprenorphine/Naloxone 8/2 mg FILM 1 FILM SUBLINGUAL ×3 (08:42→20:35)
[2021-12-26] MEDS: Aspirin Enteric Coated 81 MG TABLET.DR PO (08:42)
[2021-12-26] MEDS: Gabapentin 600 MG TABLET PO ×3 (08:42→20:35)
[2021-12-26] MEDS: FLUoxetine HCl 20 MG CAPSULE 60 MG PO (08:43)
[2021-12-26] MEDS: Loratadine 10 MG TABLET PO (08:43)
[2021-12-26] MEDS: amLODIPine Besylate 5 MG TABLET PO (08:43)
[2021-12-26] MEDS: Insulin Lispro 100 UNIT/ML 3 ML VIAL SUBCUT ×4 (08:44→20:35)
[2021-12-26] MEDS: Lidocaine 4 % Patch ADH..PATCH 1 PATCH TRANSDERMA (08:45)
[2021-12-26] MEDS: Ammonium Lactate 12 % Lotion 226 GM BOTTLE 1 APPL TOPICAL ×2 (08:45→20:41)
[2021-12-26] MEDS: Nystatin Powder 15 GM BOTTLE 1 APPL TOPICAL ×3 (08:46→20:41)
[2021-12-26] MEDS: polyethylene glycoL 3350 17 GM POWD.PACK PO (08:47)
[2021-12-26] MEDS: Acetaminophen 325 MG TABLET 650 MG PO (09:04)
[2021-12-26] MEDS: clonazePAM 0.5 MG TABLET PO (09:05)
[2021-12-26] MEDS: Ibuprofen 400 MG TABLET PO (09:05)
[2021-12-26 11:26] VITALS: BP 135/71; PULSE 80; RESP 16; TEMP 36.3; O2SAT 93
[2021-12-26 11:37] LABS: Glucose, Whole Blood 136 mg/dL (60-115)
[2021-12-26 15:28] VITALS: BP 118/62; PULSE 80; RESP 20; TEMP 36.6; O2SAT 95
[2021-12-26 16:13] LABS: Glucose, Whole Blood 173 mg/dL (60-115)
[2021-12-26 19:09] VITALS: BP 134/70; PULSE 79; RESP 18; TEMP 36.5; O2SAT 95
[2021-12-26 20:04] LABS: Glucose, Whole Blood 139 mg/dL (60-115)
[2021-12-26] MEDS: Insulin Glargine,Hum.rec.anlog 100 UNIT/ML 10 ML VIAL 18 UNIT SUBCUT (20:34)
[2021-12-26] MEDS: traZODone HCL 100 MG TABLET 200 MG PO (20:38)
[2021-12-26] MEDS: Atorvastatin Calcium 80 MG TABLET PO (20:43)
[2021-12-26 23:34] VITALS: BP 115/65; PULSE 76; RESP 19; TEMP 36.4; O2SAT 96
[2021-12-27 04:00] VITALS: BP 131/67; PULSE 77; RESP 19; TEMP 36.2; O2SAT 95
[2021-12-27] MEDS: Omeprazole 20 MG CAPSULE.DR PO ×2 (04:35→15:00)
[2021-12-27] MEDS: Levothyroxine Sodium 125 MCG TABLET 250 MCG PO (04:35)
[2021-12-27] MEDS: Heparin Sodium,Porcine 5,000 UNIT/ML VIAL 5000 UNIT SUBCUT ×3 (04:41→21:12)
[2021-12-27 07:30] VITALS: BP 140/78; PULSE 80; RESP 14; TEMP 36.3; O2SAT 97
[2021-12-27 07:43] LABS: Glucose, Whole Blood 92 mg/dL (60-115)
--- NOTE | 2021-12-27 07:50 | HO.PM.IMPN ---
Subjective Subjective Date of Service: 12/27/21 Review of Systems Follow up placement no pain or discomfort at this time Physical Exam Vital Signs: Vital Signs: Last Vital Signs Temp 97.3 F 12/27/21 07:30 Pulse 80 12/27/21 07:30 Resp 14 12/27/21 07:30 BP 140/78 H 12/27/21 07:30 Pulse Ox 97 12/27/21 07:30 O2 Del Method 12/27/21 07:30 O2 Flow Rate 2 12/27/21 07:30 BMI result Body Mass Index 61.2 Appearing in no ac gardenia distress ?lung sounds are clear to auscultation ?h eart regular rate rhythm, clear? S1, S2 ?positive alison l sounds, abdomen is soft, nontender ?neuro patient is alert x3, no foca l deficits ?Obese Objective Data Active Medications Acetaminophen (Acetaminophen 325 Mg Tablet) 650 mg PO Q6H PRN PRN Reason: Pain, Mild (Pain Scale 1-3) Last Admin: 12/26/21 09:04 Dose: 650 mg Documented By: MERCEDES Albuterol Sulfate (Albuterol Sulfate 90 Mcg 8 Gm Inhaler) 2 puff INHALE Q4H PRN PRN Reason: wheezing Amlodipine Besylate (Amlodipine Besylate 5 Mg Tablet) 5 mg PO DAILY [facility]; Protocol Last Admin: 12/26/21 08:43 Dose: 5 mg Documented By: MERCEDES Aspirin (Aspirin Enteric Coated 81 Mg Tablet.) 81 mg PO DAILY [facility] Last Admin: 12/26/21 08:42 Dose: 81 mg Documented By: MERCEDES Atorvastatin Calcium (Atorvastatin Calcium 80 Mg Tablet) 80 mg PO BEDTIME [facility] Last Admin: 12/26/21 20:43 Dose: 80 mg Documented By: SUSHANT Buprenorphine/Naloxone (Buprenorphine/Naloxone 8/2 Mg Film) 1 film SUBLINGUAL TID [facility] Last Admin: 12/26/21 20:35 Dose: 1 film Documented By: SUSHANT Clonazepam (Clonazepam 0.5 Mg Tablet) 0.5 mg PO DAILY PRN PRN Reason: Anxiety Last Admin: 12/26/21 09:05 Dose: 0.5 mg Documented By: MERCEDES Fluoxetine HCl (Fluoxetine Hcl 20 Mg Capsule) 60 mg PO DAILY [facility] Last Admin: 12/26/21 08:43 Dose: 60 mg Documented By: MERCEDES Furosemide (Furosemide 40 Mg Tablet) 40 mg PO BID@0900,1800 [facility]; Protocol Last Admin: 12/26/21 18:45 Dose: 40 mg Documented By: MERCEDES Gabapentin (Gabapentin 600 Mg Tablet) 600 mg PO TID [facility] Last Admin: 12/26/21 20:35 Dose: 600 mg Documented By: SUSHANT Heparin Sodium (Porcine) (Heparin Sodium,Porcine 5,000 Unit/Ml Vial) 5,000 unit SUBCUT Q8H [facility] Last Admin: 12/27/21 04:41 Dose: 5,000 unit Documented By: SUSHANT Ibuprofen (Ibuprofen 400 Mg Tablet) 400 mg PO Q6H PRN PRN Reason: moderate pain Last Admin: 12/26/21 09:05 Dose: 400 mg Documented By: MERCEDES Insulin Glargine (Insulin Glargine,Hum.Rec.Anlog 100 Unit/Ml 10 Ml Vial) 18 unit SUBCUT BEDTIME [facility] Last Admin: 12/26/21 20:34 Dose: 18 unit Documented By: SUSHANT Insulin Human Lispro (Insulin Lispro 100 Unit/Ml 3 Ml Vial) 0 unit SUBCUT QIDACHS [facility]; Protocol Last Admin: 12/26/21 20:44 Dose: Not Given Documented By: SUSHANT Non-Admin Reason: No Insulin Coverage Insulin Human Lispro (Insulin Lispro 100 Unit/Ml 3 Ml Vial) 5 unit SUBCUT QIDACHS [facility] Last Admin: 12/26/21 20:35 Dose: 5 unit Documented By: SUSHANT Lactic Acid (Ammonium Lactate 12 % Lotion 226 Gm Bottle) 1 appl TOPICAL BID [facility]; Protocol Last Admin: 12/26/21 20:41 Dose: 1 appl Documented By: SUSHANT Levothyroxine Sodium (Levothyroxine Sodium 125 Mcg Tablet) 250 mcg PO DAILY@0630 [facility] Last Admin: 12/27/21 04:35 Dose: 250 mcg Documented By: SUSHANT Lidocaine (Lidocaine 4 % Patch Adh..Patch) 1 patch TRANSDERMA DAILY [facility]; Protocol Last Admin: 12/26/21 08:45 Dose: 1 patch Documented By: MERCEDES Lidocaine (Lidocaine 4 % Patch Adh..Patch) 1 patch TRANSDERMA DAILY [facility]; Protocol Last Admin: 12/26/21 08:46 Dose: Not Given Documented By: MERCEDES Non-Admin Reason: Patient Refused Loratadine (Loratadine 10 Mg Tablet) 10 mg PO DAILY [facility] Last Admin: 12/26/21 08:43 Dose: 10 mg Documented By: MERCEDES Magnesium Hydroxide (Milk Of Magnesia 30 Ml Oral.Susp) 15 ml PO BEDTIME PRN PRN Reason: Constipation Last Admin: 11/30/21 19:34 Dose: 15 ml Documented By: ADINA Mineral Oil (Mineral Oil Enema 133 Ml Enema) 133 ml [place] ONCE PRN PRN Reason: constipation Nystatin (Nystatin Powder 15 Gm Bottle) 1 appl TOPICAL TID [facility]; Protocol Last Admin: 12/26/21 20:41 Dose: 1 appl Documented By: SUSHANT Omeprazole (Omeprazole 20 Mg Capsule.Dr) 20 mg PO BID@0630,1630 [facility] Last Admin: 12/27/21 04:35 Dose: 20 mg Documented By: SUSHANT Ondansetron HCl (Ondansetron Hcl 4 Mg/2 Ml Vial) 4 mg IVPUSH Q8H PRN PRN Reason: Nausea and Vomiting Pharmacy Consult (Consult Rx Perform Med Rec) 1 each MISCELLANE ONCE PRN PRN Reason: Consult order Polyethylene Glycol (Polyethylene Glycol 3350 17 Gm Powd.Pack) 17 gm PO DAILY [facility] Last Admin: 12/26/21 08:47 Dose: 17 gm Documented By: MERCEDES Senna/Docusate Sodium (Sennosides/Docusate Sodium Tablet) 1 tab PO DAILY [facility] Last Admin: 12/26/21 08:48 Dose: Not Given Documented By: MERCEDES Non-Admin Reason: Patient Refused Sodium Chloride (0.9 % Sodium Chloride Flush 3 Ml Syringe) 3 ml IVFLUSH QSHIFT [facility] Last Admin: 12/26/21 22:46 Dose: Not Given Documented By: SUSHANT Non-Admin Reason: No Access Trazodone HCl (Trazodone Hcl 100 Mg Tablet) 200 mg PO BEDTIME PRN PRN Reason: Insomnia Last Admin: 12/26/21 20:38 Dose: 200 mg Documented By: SUSHANT Labs CBC & Chem 7: 12/15/21 05:18 12/15/21 05:18 Labs: Laboratory Results - last 24 hr 12/26/21 12/26/21 12/26/21 11:25 15:35 19:13 POC Glucose 136 H 173 H 139 H 12/27/21 07:33 POC Glucose 92 Assessment and Plan (1) Physical deconditioning: Status: Acute Plan 51 yo F who presented to ED with LE swelling, was awaiting STR placement but noted to have abd swelling and found to have hydronephrosis on abd CT that turns out to be chronic with decreased R kidney function No medical changes Physical deconditioning Patient unable to ambulate or even stand up at this point from prolonged hospital stay and deconditioning Physical therapy, nursing staff are following with her with a plan to keep ambulating her and trying to get her up on her feet in order to place her to SNF or to go back home if she is able to climb the stairs. encourage OOB to chair daily morbid obesity discussed importance of weight management as this is likely contributing to worsening of other comorbidities will reweight her today for placement purposes Constipation multiple BMs documented continue bowel regimen Right hand swelling Neg for VTE chronic LE edema/ probable chronic right-sided heart failure US negative for VTE; likely due to obesity, anemia, hypoalbuminemia, and likely R-sided HF echo showing preserved ejection fraction and elevated right atrial pressures IV furosemide changed to oral Lasix chronic hypoxic resp failure likely 2/2 OHS, COPD + asthma overall better prn albuterol 1-2 liters nc at baseline chest/shoulder pain EKG normal and hs-Tn-I normal.? origin is MSK, likely shoulder impingement; continue lidocaine patch, PT/OT R hydronephrosis/proximal ureteral dilation Urology seen- no acute therapy indicated- chronic issue.? Lasix renogram showed diminished R renal function; normal on L.? outpt Uro f/u.? renal function stable. acute/chronic normocytic anemia likely anemia of CKD, improved s/p 1u pRBCs; normal iron studies/B12/FA H/H stable CKD3 Creatinine at baseline UTI treated with Ceftriaxone HTN continue amlodipine HLD continue atorvastatin L knee pain APAP for arthritis pain DM2 A1c 9.2, basal/bolus insulin hypothyroid TSH 20.29, increased LT4 200->250 mcg/d and repeat TSH in 6 wk mood disorder continue fluoxetine GERD PPI OUD Suboxone VTE ppx- [facility] attending -Dr. Dolan Continued hospitalization/dispo - seen by physical therapy; they recommend short-term rehab for optimal functional gains.? however, no STR beds are available in the state due to her weight + Suboxone use + Covid-19 unvaccinated status.? She declines Covid-19 vaccine due to yazidism beliefs as a L[employer]. ? CM broadening search.? PT and OT working with pt to gain ability to get up her stairs herself in which case she could go home with VNA at some point Quality Stroke Does the patient have a stroke diagnosis?: No VTE Prior VTE?: No VTE Risk Level:: Medical - moderate - high VTE Device Contraindication: Treatment Not Indicated VTE Drug Contraindication: N/A - Med Ordered
[2021-12-27] MEDS: FLUoxetine HCl 20 MG CAPSULE 60 MG PO (08:43)
[2021-12-27] MEDS: amLODIPine Besylate 5 MG TABLET PO (08:43)
[2021-12-27] MEDS: Furosemide 40 MG TABLET PO ×2 (08:43→17:02)
[2021-12-27] MEDS: Buprenorphine/Naloxone 8/2 mg FILM 1 FILM SUBLINGUAL ×3 (08:43→21:10)
[2021-12-27] MEDS: Gabapentin 600 MG TABLET PO ×3 (08:43→21:10)
[2021-12-27] MEDS: Aspirin Enteric Coated 81 MG TABLET.DR PO (08:43)
[2021-12-27] MEDS: Loratadine 10 MG TABLET PO (08:43)
[2021-12-27] MEDS: Lidocaine 4 % Patch ADH..PATCH 1 PATCH TRANSDERMA (08:45)
[2021-12-27] MEDS: Ammonium Lactate 12 % Lotion 226 GM BOTTLE 1 APPL TOPICAL ×2 (08:47→21:23)
[2021-12-27] MEDS: clonazePAM 0.5 MG TABLET PO (08:56)
[2021-12-27] MEDS: Acetaminophen 325 MG TABLET 650 MG PO (08:56)
[2021-12-27] MEDS: Ibuprofen 400 MG TABLET PO ×2 (08:57→21:18)
[2021-12-27] MEDS: polyethylene glycoL 3350 17 GM POWD.PACK PO (08:59)
[2021-12-27 11:09] VITALS: BP 126/70; PULSE 80; RESP 15; TEMP 36.4; O2SAT 97
[2021-12-27 11:32] LABS: Glucose, Whole Blood 172 mg/dL (60-115)
[2021-12-27] MEDS: Insulin Lispro 100 UNIT/ML 3 ML VIAL SUBCUT ×6 (12:06→21:11)
--- NOTE | 2021-12-27 12:34 | MHC.CM.PN ---
CM SPOKE W/PURCHASING DEPT AND THEY REPORTED PT'S BARIATIC SIT-STAND LIFT WILL TAKE APPROX ANOTHER 2 WKS TO COME IN, PT'S NEW WAIT IN EXPANSE 177.5KG 391.3LBS, CM WILL UPDATE REFERRALS.
[2021-12-27] MEDS: 0.9 % Sodium Chloride Flush 3 ML SYRINGE IVFLUSH (15:01)
[2021-12-27 15:39] VITALS: BP 117/65; PULSE 73; RESP 16; TEMP 36; O2SAT 94
[2021-12-27] MEDS: Nystatin Powder 15 GM BOTTLE 1 APPL TOPICAL ×2 (16:09→21:23)
[2021-12-27 16:16] LABS: Glucose, Whole Blood 132 mg/dL (60-115)
[2021-12-27 17:14] VITALS: BMI 62.1
[2021-12-27 19:50] VITALS: BP 125/60; PULSE 75; RESP 16; TEMP 36.1; O2SAT 96
[2021-12-27 20:45] LABS: Glucose, Whole Blood 155 mg/dL (60-115)
[2021-12-27] MEDS: Insulin Glargine,Hum.rec.anlog 100 UNIT/ML 10 ML VIAL 18 UNIT SUBCUT (21:10)
[2021-12-27] MEDS: Atorvastatin Calcium 80 MG TABLET PO (21:10)
[2021-12-27] MEDS: traZODone HCL 100 MG TABLET 200 MG PO (21:19)
[2021-12-27 21:21] VITALS: BMI 62.8
[2021-12-27 23:35] VITALS: BP 130/68; PULSE 78; RESP 16; TEMP 36; O2SAT 94
[2021-12-28 03:51] VITALS: RESP 16
[2021-12-28] MEDS: Omeprazole 20 MG CAPSULE.DR PO ×2 (05:53→15:55)
[2021-12-28] MEDS: Levothyroxine Sodium 125 MCG TABLET 250 MCG PO (05:54)
[2021-12-28] MEDS: Heparin Sodium,Porcine 5,000 UNIT/ML VIAL 5000 UNIT SUBCUT ×3 (05:54→20:46)
[2021-12-28 07:19] LABS: Glucose, Whole Blood 120 mg/dL (60-115)
[2021-12-28 08:00] VITALS: BP 127/58; PULSE 76; RESP 17; TEMP 36; O2SAT 94
[2021-12-28] MEDS: Lidocaine 4 % Patch ADH..PATCH 1 PATCH TRANSDERMA (10:17)
[2021-12-28] MEDS: Buprenorphine/Naloxone 8/2 mg FILM 1 FILM SUBLINGUAL ×3 (10:18→19:41)
[2021-12-28] MEDS: Furosemide 40 MG TABLET PO ×2 (10:18→16:59)
[2021-12-28] MEDS: Aspirin Enteric Coated 81 MG TABLET.DR PO (10:18)
[2021-12-28] MEDS: amLODIPine Besylate 5 MG TABLET PO (10:19)
[2021-12-28] MEDS: Gabapentin 600 MG TABLET PO ×3 (10:20→19:41)
[2021-12-28] MEDS: Acetaminophen 325 MG TABLET 650 MG PO ×2 (10:20→16:59)
[2021-12-28] MEDS: FLUoxetine HCl 20 MG CAPSULE 60 MG PO (10:20)
[2021-12-28] MEDS: Loratadine 10 MG TABLET PO (10:20)
[2021-12-28] MEDS: polyethylene glycoL 3350 17 GM POWD.PACK PO (10:21)
[2021-12-28] MEDS: Ammonium Lactate 12 % Lotion 226 GM BOTTLE 1 APPL TOPICAL ×2 (10:22→20:47)
[2021-12-28] MEDS: Nystatin Powder 15 GM BOTTLE 1 APPL TOPICAL ×3 (10:22→20:47)
[2021-12-28] MEDS: Ibuprofen 400 MG TABLET PO ×2 (10:29→17:00)
--- NOTE | 2021-12-28 10:52 | P.PNIM_ITS ---
Subjective Subjective Date of Service: 12/28/21 Interval History: no new complaints, requesting for Klonopin, no acute issues overnight Review of Systems Review of Systems: Yes all other systems are reviewed and are negative Physical Exam Vital Signs: Vital Signs: Last Vital Signs Temp 96.8 F 12/28/21 08:00 Pulse 76 12/28/21 08:00 Resp 17 12/28/21 08:00 BP 127/58 L 12/28/21 08:00 Pulse Ox 94 12/28/21 08:00 O2 Del Method 12/28/21 08:00 O2 Flow Rate 2 12/28/21 08:00 BMI result Body Mass Index 62.8 Const: Other: ?Gen awake alert times 3,in no acute distress neck no JVD ?lung sounds are clear to auscultation ?heart regular rate rhythm, clear? S1, S2 ?positive bowel sounds, abdomen is soft, nontender ?neuro patient is alert x3, no focal deficits extremities no edema ? Objective Data Active Medications Acetaminophen (Acetaminophen 325 Mg Tablet) 650 mg PO Q6H PRN PRN Reason: Pain, Mild (Pain Scale 1-3) Last Admin: 12/28/21 10:20 Dose: 650 mg Documented By: LAVERN Albuterol Sulfate (Albuterol Sulfate 90 Mcg 8 Gm Inhaler) 2 puff INHALE Q4H PRN PRN Reason: wheezing Amlodipine Besylate (Amlodipine Besylate 5 Mg Tablet) 5 mg PO DAILY [facility]; Protocol Last Admin: 12/28/21 10:19 Dose: 5 mg Documented By: LAVERN Aspirin (Aspirin Enteric Coated 81 Mg Tablet.) 81 mg PO DAILY [facility] Last Admin: 12/28/21 10:18 Dose: 81 mg Documented By: LAVERN Atorvastatin Calcium (Atorvastatin Calcium 80 Mg Tablet) 80 mg PO BEDTIME [facility] Last Admin: 12/27/21 21:10 Dose: 80 mg Documented By: VARGAS Buprenorphine/Naloxone (Buprenorphine/Naloxone 8/2 Mg Film) 1 film SUBLINGUAL TID [facility] Last Admin: 12/28/21 10:18 Dose: 1 film Documented By: LAVREN Clonazepam (Clonazepam 0.5 Mg Tablet) 0.5 mg PO DAILY PRN PRN Reason: Anxiety Fluoxetine HCl (Fluoxetine Hcl 20 Mg Capsule) 60 mg PO DAILY [facility] Last Admin: 12/28/21 10:20 Dose: 60 mg Documented By: LAVERN Furosemide (Furosemide 40 Mg Tablet) 40 mg PO BID@0900,1800 [facility]; Protocol Last Admin: 12/28/21 10:18 Dose: 40 mg Documented By: LAVERN Gabapentin (Gabapentin 600 Mg Tablet) 600 mg PO TID [facility] Last Admin: 12/28/21 10:20 Dose: 600 mg Documented By: LAVERN Heparin Sodium (Porcine) (Heparin Sodium,Porcine 5,000 Unit/Ml Vial) 5,000 unit SUBCUT Q8H [facility] Last Admin: 12/28/21 05:54 Dose: 5,000 unit Documented By: VARGAS Ibuprofen (Ibuprofen 400 Mg Tablet) 400 mg PO Q6H PRN PRN Reason: moderate pain Last Admin: 12/28/21 10:29 Dose: 400 mg Documented By: LAVERN Insulin Glargine (Insulin Glargine,Hum.Rec.Anlog 100 Unit/Ml 10 Ml Vial) 18 unit SUBCUT BEDTIME [facility] Last Admin: 12/27/21 21:10 Dose: 18 unit Documented By: VARGAS Insulin Human Lispro (Insulin Lispro 100 Unit/Ml 3 Ml Vial) 0 unit SUBCUT QIDACHS [facility]; Protocol Last Admin: 12/28/21 07:34 Dose: Not Given Documented By: LAVERN Non-Admin Reason: No Insulin Coverage Insulin Human Lispro (Insulin Lispro 100 Unit/Ml 3 Ml Vial) 5 unit SUBCUT QIDACHS [facility] Last Admin: 12/28/21 07:34 Dose: Not Given Documented By: LAVERN Non-Admin Reason: No Insulin Coverage Lactic Acid (Ammonium Lactate 12 % Lotion 226 Gm Bottle) 1 appl TOPICAL BID [facility]; Protocol Last Admin: 12/28/21 10:22 Dose: 1 appl Documented By: LAVERN Levothyroxine Sodium (Levothyroxine Sodium 125 Mcg Tablet) 250 mcg PO DAILY@0630 [facility] Last Admin: 12/28/21 05:54 Dose: 250 mcg Documented By: VARGAS Lidocaine (Lidocaine 4 % Patch Adh..Patch) 1 patch TRANSDERMA DAILY [facility]; Protocol Last Admin: 12/28/21 10:17 Dose: 1 patch Documented By: LAVERN Lidocaine (Lidocaine 4 % Patch Adh..Patch) 1 patch TRANSDERMA DAILY [facility]; Protocol Last Admin: 12/28/21 10:18 Dose: Not Given Documented By: LAVERN Non-Admin Reason: Patient Refused Loratadine (Loratadine 10 Mg Tablet) 10 mg PO DAILY [facility] Last Admin: 12/28/21 10:20 Dose: 10 mg Documented By: LAVERN Magnesium Hydroxide (Milk Of Magnesia 30 Ml Oral.Susp) 15 ml PO BEDTIME PRN PRN Reason: Constipation Last Admin: 11/30/21 19:34 Dose: 15 ml Documented By: ADINA Mineral Oil (Mineral Oil Enema 133 Ml Enema) 133 ml MA ONCE PRN PRN Reason: constipation Nystatin (Nystatin Powder 15 Gm Bottle) 1 appl TOPICAL TID [facility]; Protocol Last Admin: 12/28/21 10:22 Dose: 1 appl Documented By: LAVERN Omeprazole (Omeprazole 20 Mg Capsule.Dr) 20 mg PO BID@0630,1630 [facility] Last Admin: 12/28/21 05:53 Dose: 20 mg Documented By: VARGAS Ondansetron HCl (Ondansetron Hcl 4 Mg/2 Ml Vial) 4 mg IVPUSH Q8H PRN PRN Reason: Nausea and Vomiting Pharmacy Consult (Consult Rx Perform Med Rec) 1 each MISCELLANE ONCE PRN PRN Reason: Consult order Polyethylene Glycol (Polyethylene Glycol 3350 17 Gm Powd.Pack) 17 gm PO DAILY [facility] Last Admin: 12/28/21 10:21 Dose: 17 gm Documented By: LAVERN Senna/Docusate Sodium (Sennosides/Docusate Sodium Tablet) 1 tab PO DAILY [facility] Last Admin: 12/28/21 10:22 Dose: Not Given Documented By: LAVERN Non-Admin Reason: Patient Refused Sodium Chloride (0.9 % Sodium Chloride Flush 3 Ml Syringe) 3 ml IVFLUSH QSHIFT [facility] Last Admin: 12/28/21 10:05 Dose: Not Given Documented By: LAVERN Non-Admin Reason: No Access Trazodone HCl (Trazodone Hcl 100 Mg Tablet) 200 mg PO BEDTIME PRN PRN Reason: Insomnia Last Admin: 12/27/21 21:19 Dose: 200 mg Documented By: VARGAS Labs CBC & Chem 7: 12/15/21 05:18 12/15/21 05:18 Labs: Laboratory Results - last 24 hr 12/27/21 12/27/21 12/27/21 11:12 16:11 20:27 POC Glucose 172 H 132 H 155 H 12/28/21 07:16 POC Glucose 120 H Assessment and Plan (1) Physical deconditioning: Status: Acute Plan 51 yo F who presented to ED with LE swelling, was awaiting STR placement but noted to have abd swelling and found to have hydronephrosis on abd CT that turns out to be chronic with decreased R kidney function no new medical issues in last 24 hours Physical deconditioning Patient unable to ambulate or even stand up at this point from prolonged hospital stay and deconditioning Physical therapy, nursing staff are following with her with a plan to keep ambulating her and trying to get her up on her feet in order to place her to SNF or to go back home if she is able to climb the stairs. encourage OOB to chair daily morbid obesity discussed importance of weight management as this is likely contributing to worsening of other comorbidities patient has lost 107 lb since admission, encouraged to continue low-calorie diet Constipation multiple BMs documented continue bowel regimen Right hand swelling Neg for VTE chronic LE edema/ probable chronic right-sided heart failure US negative for VTE; likely due to obesity, anemia, hypoalbuminemia, and likely R-sided HF echo showing preserved ejection fraction and elevated right atrial pressures IV furosemide changed to oral Lasix chronic hypoxic resp failure likely 2/2 OHS, COPD + asthma overall better prn albuterol 1-2 liters nc at baseline chest/shoulder pain EKG normal and hs-Tn-I normal.? origin is MSK, likely shoulder impingement; continue lidocaine patch, PT/OT R hydronephrosis/proximal ureteral dilation Urology seen- no acute therapy indicated- chronic issue.? Lasix renogram showed diminished R renal function; normal on L.? outpt Uro f/u.? renal function stable. acute/chronic normocytic anemia likely anemia of CKD, improved s/p 1u pRBCs; normal iron studies/B12/FA H/H stable CKD3 Creatinine at baseline UTI treated with Ceftriaxone HTN continue amlodipine HLD continue atorvastatin L knee pain APAP for arthritis pain DM2 A1c 9.2, basal/bolus insulin hypothyroid TSH 20.29, increased LT4 200->250 mcg/d and repeat TSH in 6 wk mood disorder continue fluoxetine GERD PPI OUD Suboxone VTE ppx- [facility] attending -Dr. Dolan Continued hospitalization/dispo - seen by physical therapy; they recommend short-term rehab for optimal functional gains.? however, no STR beds are available in the state due to her weight + Suboxone use + Covid-19 unvaccinated status.? She declines Covid-19 vaccine due to episcopal beliefs as a Jewish. ? CM broadening search.? 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
[2021-12-28 11:24] LABS: Glucose, Whole Blood 151 mg/dL (60-115)
[2021-12-28 11:47] VITALS: BP 145/85; PULSE 73; RESP 16; TEMP 36.1; O2SAT 93
[2021-12-28] MEDS: Insulin Lispro 100 UNIT/ML 3 ML VIAL SUBCUT ×4 (12:12→17:01)
[2021-12-28] MEDS: clonazePAM 0.5 MG TABLET PO (12:14)
[2021-12-28 15:22] VITALS: BP 134/63; PULSE 71; RESP 18; TEMP 37.1; O2SAT 95
[2021-12-28 16:21] LABS: Glucose, Whole Blood 188 mg/dL (60-115)
[2021-12-28 19:17] VITALS: BP 115/59; PULSE 72; RESP 18; TEMP 36.6; O2SAT 100
[2021-12-28] MEDS: Atorvastatin Calcium 80 MG TABLET PO (19:41)
[2021-12-28] MEDS: Insulin Glargine,Hum.rec.anlog 100 UNIT/ML 10 ML VIAL 18 UNIT SUBCUT (19:41)
[2021-12-28] MEDS: traZODone HCL 100 MG TABLET 200 MG PO (19:46)
[2021-12-28 19:57] LABS: Glucose, Whole Blood 125 mg/dL (60-115)
[2021-12-29] VITALS: BP 118/63; PULSE 66; RESP 17; TEMP 36.4; O2SAT 96
[2021-12-29 04:00] VITALS: BP 120/65; PULSE 65; RESP 17; TEMP 36.3; O2SAT 97
[2021-12-29] MEDS: Heparin Sodium,Porcine 5,000 UNIT/ML VIAL 5000 UNIT SUBCUT ×3 (05:17→21:14)
[2021-12-29] MEDS: Omeprazole 20 MG CAPSULE.DR PO ×2 (05:17→18:02)
[2021-12-29] MEDS: Levothyroxine Sodium 125 MCG TABLET 250 MCG PO (05:17)
[2021-12-29 07:21] VITALS: BP 132/68; PULSE 79; RESP 17; TEMP 36.1; O2SAT 97
[2021-12-29 07:32] LABS: Glucose, Whole Blood 130 mg/dL (60-115)
[2021-12-29] MEDS: Buprenorphine/Naloxone 8/2 mg FILM 1 FILM SUBLINGUAL ×3 (08:00→21:13)
[2021-12-29] MEDS: Gabapentin 600 MG TABLET PO ×3 (08:00→21:13)
[2021-12-29] MEDS: Acetaminophen 325 MG TABLET 650 MG PO ×2 (08:00→14:24)
[2021-12-29] MEDS: Lidocaine 4 % Patch ADH..PATCH 1 PATCH TRANSDERMA (08:00)
[2021-12-29] MEDS: polyethylene glycoL 3350 17 GM POWD.PACK PO (08:00)
[2021-12-29] MEDS: Aspirin Enteric Coated 81 MG TABLET.DR PO (08:01)
[2021-12-29] MEDS: clonazePAM 0.5 MG TABLET PO (08:01)
[2021-12-29] MEDS: FLUoxetine HCl 20 MG CAPSULE 60 MG PO (08:01)
[2021-12-29] MEDS: Furosemide 40 MG TABLET PO ×2 (08:01→18:02)
[2021-12-29] MEDS: amLODIPine Besylate 5 MG TABLET PO (08:01)
[2021-12-29] MEDS: Loratadine 10 MG TABLET PO (08:02)
[2021-12-29] MEDS: Ammonium Lactate 12 % Lotion 226 GM BOTTLE 1 APPL TOPICAL (08:02)
[2021-12-29] MEDS: Nystatin Powder 15 GM BOTTLE 1 APPL TOPICAL ×2 (08:02→14:26)
[2021-12-29] MEDS: Ibuprofen 400 MG TABLET PO ×2 (08:03→14:24)
[2021-12-29 11:32] VITALS: BP 132/66; PULSE 70; RESP 17; TEMP 36.1; O2SAT 100
[2021-12-29 11:43] LABS: Glucose, Whole Blood 133 mg/dL (60-115)
--- NOTE | 2021-12-29 15:44 | P.PNIM_ITS ---
Subjective Subjective Date of Service: 12/29/21 Interval History: seen and examined this morning follow up for placement reports she is doing her PT exercises. no specific complaints. No overnight events Review of Systems Review of Systems: Yes all other systems are reviewed and are negative Constitutional Constitutional: Denies chills and Denies fever(s) Cardiovascular Cardiovascular: Denies palpitations and Denies dyspnea Respiratory Respiratory: Denies cough and Denies dyspnea Gastrointestinal Gastrointestinal: Denies abdominal pain Endocrine Endocrine: Denies palpitations Physical Exam Vital Signs: Vital Signs: Last Vital Signs Temp 97 F 12/29/21 11:32 Pulse 70 12/29/21 11:32 Resp 17 12/29/21 11:32 BP 132/66 12/29/21 11:32 Pulse Ox 100 12/29/21 11:32 O2 Del Method 12/29/21 11:32 O2 Flow Rate 2 12/29/21 11:32 BMI result Body Mass Index 62.8 Const: General: cooperative, comfortable, no acute distress, alert and awake Nutritional Appearance: obese HEENT: Head: Yes normal to inspection Resp: Effort & Inspection: normal respiratory effort, able to speak in complete sentences and no respiratory distress Auscultation: diminished lung sounds Cardio: Rate: regular rate Rhythm: regular rhythm GI: Inspection: No distended and Yes obesity Palpation (GI): Soft to palpation and nontender Extrem: Other: Bilateral lower extremity chronic venous stasis changes Objective Data Active Medications Acetaminophen (Acetaminophen 325 Mg Tablet) 650 mg PO Q6H PRN PRN Reason: Pain, Mild (Pain Scale 1-3) Last Admin: 12/29/21 14:24 Dose: 650 mg Documented By: LAVERN Albuterol Sulfate (Albuterol Sulfate 90 Mcg 8 Gm Inhaler) 2 puff INHALE Q4H PRN PRN Reason: wheezing Amlodipine Besylate (Amlodipine Besylate 5 Mg Tablet) 5 mg PO DAILY [facility]; Protocol Last Admin: 12/29/21 08:01 Dose: 5 mg Documented By: LAVERN Aspirin (Aspirin Enteric Coated 81 Mg Tablet.) 81 mg PO DAILY [facility] Last Admin: 12/29/21 08:01 Dose: 81 mg Documented By: LAVERN Atorvastatin Calcium (Atorvastatin Calcium 80 Mg Tablet) 80 mg PO BEDTIME [facility] Last Admin: 12/28/21 19:41 Dose: 80 mg Documented By: VARGAS Buprenorphine/Naloxone (Buprenorphine/Naloxone 8/2 Mg Film) 1 film SUBLINGUAL TID [facility] Last Admin: 12/29/21 14:24 Dose: 1 film Documented By: LAVERN Clonazepam (Clonazepam 0.5 Mg Tablet) 0.5 mg PO DAILY PRN PRN Reason: Anxiety Last Admin: 12/29/21 08:01 Dose: 0.5 mg Documented By: LAVERN Fluoxetine HCl (Fluoxetine Hcl 20 Mg Capsule) 60 mg PO DAILY [facility] Last Admin: 12/29/21 08:01 Dose: 60 mg Documented By: LAVERN Furosemide (Furosemide 40 Mg Tablet) 40 mg PO BID@0900,1800 [facility]; Protocol Last Admin: 12/29/21 08:01 Dose: 40 mg Documented By: LAVERN Gabapentin (Gabapentin 600 Mg Tablet) 600 mg PO TID [facility] Last Admin: 12/29/21 14:24 Dose: 600 mg Documented By: LAVERN Heparin Sodium (Porcine) (Heparin Sodium,Porcine 5,000 Unit/Ml Vial) 5,000 unit SUBCUT Q8H [facility] Last Admin: 12/29/21 14:23 Dose: 5,000 unit Documented By: LAVERN Ibuprofen (Ibuprofen 400 Mg Tablet) 400 mg PO Q6H PRN PRN Reason: moderate pain Last Admin: 12/29/21 14:24 Dose: 400 mg Documented By: LAVERN Insulin Glargine (Insulin Glargine,Hum.Rec.Anlog 100 Unit/Ml 10 Ml Vial) 18 unit SUBCUT BEDTIME [facility] Last Admin: 12/28/21 19:41 Dose: 18 unit Documented By: VARGAS Insulin Human Lispro (Insulin Lispro 100 Unit/Ml 3 Ml Vial) 0 unit SUBCUT QIDACHS [facility]; Protocol Last Admin: 12/29/21 11:54 Dose: Not Given Documented By: LAVERN Non-Admin Reason: No Insulin Coverage Insulin Human Lispro (Insulin Lispro 100 Unit/Ml 3 Ml Vial) 5 unit SUBCUT QIDACHS [facility] Last Admin: 12/29/21 11:55 Dose: Not Given Documented By: LAVERN Non-Admin Reason: No Insulin Coverage Lactic Acid (Ammonium Lactate 12 % Lotion 226 Gm Bottle) 1 appl TOPICAL BID [facility]; Protocol Last Admin: 12/29/21 08:02 Dose: 1 appl Documented By: LAVERN Levothyroxine Sodium (Levothyroxine Sodium 125 Mcg Tablet) 250 mcg PO DAILY@0630 [facility] Last Admin: 12/29/21 05:17 Dose: 250 mcg Documented By: VARGAS Lidocaine (Lidocaine 4 % Patch Adh..Patch) 1 patch TRANSDERMA DAILY [facility]; Protocol Last Admin: 12/29/21 08:00 Dose: 1 patch Documented By: LAVERN Lidocaine (Lidocaine 4 % Patch Adh..Patch) 1 patch TRANSDERMA DAILY [facility]; Protocol Last Admin: 12/29/21 07:57 Dose: Not Given Documented By: LAVERN Non-Admin Reason: Patient Refused Loratadine (Loratadine 10 Mg Tablet) 10 mg PO DAILY [facility] Last Admin: 12/29/21 08:02 Dose: 10 mg Documented By: LAVERN Magnesium Hydroxide (Milk Of Magnesia 30 Ml Oral.Susp) 15 ml PO BEDTIME PRN PRN Reason: Constipation Last Admin: 11/30/21 19:34 Dose: 15 ml Documented By: ADINA Mineral Oil (Mineral Oil Enema 133 Ml Enema) 133 ml ND ONCE PRN PRN Reason: constipation Nystatin (Nystatin Powder 15 Gm Bottle) 1 appl TOPICAL TID [facility]; Protocol Last Admin: 12/29/21 14:26 Dose: 1 appl Documented By: LAVERN Omeprazole (Omeprazole 20 Mg Capsule.) 20 mg PO BID@0630,1630 [facility] Last Admin: 12/29/21 05:17 Dose: 20 mg Documented By: VARGAS Ondansetron HCl (Ondansetron Hcl 4 Mg/2 Ml Vial) 4 mg IVPUSH Q8H PRN PRN Reason: Nausea and Vomiting Pharmacy Consult (Consult Rx Perform Med Rec) 1 each MISCELLANE ONCE PRN PRN Reason: Consult order Polyethylene Glycol (Polyethylene Glycol 3350 17 Gm Powd.Pack) 17 gm PO DAILY [facility] Last Admin: 12/29/21 08:00 Dose: 17 gm Documented By: LAVERN Senna/Docusate Sodium (Sennosides/Docusate Sodium Tablet) 1 tab PO DAILY [facility] Last Admin: 12/29/21 07:58 Dose: Not Given Documented By: LAVERN Non-Admin Reason: Patient Refused Sodium Chloride (0.9 % Sodium Chloride Flush 3 Ml Syringe) 3 ml IVFLUSH QSHIFT [facility] Last Admin: 12/29/21 14:28 Dose: Not Given Documented By: LAVERN Non-Admin Reason: No Access Trazodone HCl (Trazodone Hcl 100 Mg Tablet) 200 mg PO BEDTIME PRN PRN Reason: Insomnia Last Admin: 12/28/21 19:46 Dose: 200 mg Documented By: VARGAS Labs CBC & Chem 7: 12/15/21 05:18 12/15/21 05:18 Labs: Laboratory Results - last 24 hr 12/28/21 12/28/21 12/29/21 15:27 19:23 07:23 POC Glucose 188 H 125 H 130 H 12/29/21 11:31 POC Glucose 133 H Assessment and Plan (1) Physical deconditioning: Status: Acute Plan 51 yo F who presented to ED with LE swelling, was awaiting STR placement but noted to have abd swelling and found to have hydronephrosis on abd CT that turns out to be chronic with decreased R kidney function ?no new medical issues in last 24 hours Physical deconditioning Patient unable to ambulate or even stand up at this point from prolonged hospital stay and deconditioning Physical therapy, nursing staff are following with her with a plan to keep ambulating her and trying to get her up on her feet in order to place her to SNF or to go back home if she is able to climb the stairs.? encourage OOB to chair daily morbid obesity discussed importance of weight management as this is likely contributing to worsening of other comorbidities Constipation multiple BMs documented continue bowel regimen Right hand swelling Neg for VTE chronic LE edema/ probable chronic right-sided heart failure US negative for VTE; likely due to obesity, anemia, hypoalbuminemia, and likely R-sided HF ?echo showing preserved ejection fraction and elevated right atrial pressures IV furosemide changed to oral Lasix chronic hypoxic resp failure likely 2/2 OHS, COPD + asthma overall better prn albuterol 1-2 liters nc at baseline chest/shoulder pain EKG normal and hs-Tn-I normal.? origin is MSK, likely shoulder impingement; continue lidocaine patch, PT/OT R hydronephrosis/proximal ureteral dilation Urology seen- no acute therapy indicated- chronic issue.? Lasix renogram showed diminished R renal function; normal on L.? outpt Uro f/u.? renal function stable. acute/chronic normocytic anemia likely anemia of CKD, improved s/p 1u pRBCs; normal iron studies/B12/FA H/H stable CKD3 Creatinine at baseline UTI treated with Ceftriaxone HTN continue amlodipine HLD continue atorvastatin L knee pain APAP for arthritis pain DM2 A1c 9.2, basal/bolus insulin hypothyroid TSH 20.29, increased LT4 200->250 mcg/d and repeat TSH in 6 wk mood disorder continue fluoxetine GERD PPI OUD Suboxone VTE ppx- [facility] ?attending -Dr. Dolan? Continued hospitalization/dispo - seen by physical therapy; they recommend s hort-term rehab for optimal functional gains.? however, no STR beds are available in the state due to her weight + Suboxone use + Covid-19 unvaccinated status.? She declines Covid-19 vaccine due to scientologist beliefs as a [employer]. ? CM broadening search.? PT and OT working with pt to gain ability to get up her stairs herself in which case she could go home with VNA at some point Quality Stroke Does the patient have a stroke diagnosis?: No VTE Prior VTE?: No VTE Risk Level:: Medical - moderate - high VTE Device Contraindication: Treatment Not Indicated VTE Drug Contraindication: N/A - Med Ordered
[2021-12-29 15:46] VITALS: BP 118/60; PULSE 73; RESP 16; TEMP 36.2; O2SAT 96
[2021-12-29 16:22] LABS: Glucose, Whole Blood 135 mg/dL (60-115)
[2021-12-29 19:54] VITALS: BP 135/63; PULSE 76; RESP 20; TEMP 36.2; O2SAT 96
[2021-12-29 20:34] LABS: Glucose, Whole Blood 149 mg/dL (60-115)
[2021-12-29] MEDS: Insulin Lispro 100 UNIT/ML 3 ML VIAL SUBCUT (21:13)
[2021-12-29] MEDS: Atorvastatin Calcium 80 MG TABLET PO (21:13)
[2021-12-29] MEDS: Insulin Glargine,Hum.rec.anlog 100 UNIT/ML 10 ML VIAL 18 UNIT SUBCUT (21:14)
[2021-12-30] VITALS (8 sets, daily range): BP systolic 116–141; BP diastolic 56–81; PULSE 72–83; RESP 16–18; TEMP 36.1–36.5; O2SAT 93–98
[2021-12-30] MEDS: Heparin Sodium,Porcine 5,000 UNIT/ML VIAL 5000 UNIT SUBCUT ×3 (05:51→22:02)
[2021-12-30] MEDS: Levothyroxine Sodium 125 MCG TABLET 250 MCG PO (05:51)
[2021-12-30] MEDS: Omeprazole 20 MG CAPSULE.DR PO ×2 (05:51→17:58)
[2021-12-30 07:41] LABS: Glucose, Whole Blood 143 mg/dL (60-115)
[2021-12-30] MEDS: Insulin Lispro 100 UNIT/ML 3 ML VIAL SUBCUT ×5 (08:35→22:01)
[2021-12-30] MEDS: amLODIPine Besylate 5 MG TABLET PO (08:36)
[2021-12-30] MEDS: Ibuprofen 400 MG TABLET PO (08:36)
[2021-12-30] MEDS: clonazePAM 0.5 MG TABLET PO (08:36)
[2021-12-30] MEDS: Aspirin Enteric Coated 81 MG TABLET.DR PO (08:36)
[2021-12-30] MEDS: Gabapentin 600 MG TABLET PO ×3 (08:37→22:02)
[2021-12-30] MEDS: Loratadine 10 MG TABLET PO (08:37)
[2021-12-30] MEDS: Furosemide 40 MG TABLET PO ×2 (08:37→17:58)
[2021-12-30] MEDS: Buprenorphine/Naloxone 8/2 mg FILM 1 FILM SUBLINGUAL ×3 (08:38→22:02)
[2021-12-30] MEDS: Lidocaine 4 % Patch ADH..PATCH 1 PATCH TRANSDERMA (08:38)
[2021-12-30] MEDS: FLUoxetine HCl 20 MG CAPSULE 60 MG PO (08:38)
[2021-12-30] MEDS: Nystatin Powder 15 GM BOTTLE 1 APPL TOPICAL ×2 (08:46→22:03)
[2021-12-30] MEDS: Ammonium Lactate 12 % Lotion 226 GM BOTTLE 1 APPL TOPICAL ×2 (08:46→22:30)
[2021-12-30 11:46] LABS: Glucose, Whole Blood 117 mg/dL (60-115)
--- NOTE | 2021-12-30 13:22 | P.CDIC_ITS ---
CDI Concurrent Query Documentation Clarification: PHYSICIAN'S DOCUMENTATION REQUEST Date of Query: 12/30/21 1322 Patient Name: Betzaida Cho Admit Date: 11/12/21 Dear Doctor, Please review the following and provide your response in the progress notes. Clinical Indicators: The diagnosis of asthma was documented in the record on [enter date]. Additional clinical indicators from the record include: Risk Factors/Clinical Indicators/Treatments Per MD progress note 12/29/21: chronic hypoxic respiratory failure likely 2/2 OHS, COPD + asthma prn Albuterol 1-2 liters nc at baseline Based on the above, please clarify in the Progress Notes further specificity regarding the type and acuity of the asthma: Type: * Mild intermittent - less than 2x/week * Mild persistent - more than 2x/week but not daily * Moderate persistent - daily and may restrict physical activity * Severe persistent - throughout the day with frequent attacks, limiting activities * Exercise induced * Chronic obstructive asthma and indicate if with acute lower respiratory infection * Asthma with underlying COPD and indicate if with acute lower respiratory infection * Other ? please specify * Unable to determine Acuity: * With acute exacerbation * With status asthmaticus * Uncomplicated * Unable to determine Use of terms such as suspected, likely, concern for, or probable (associated with a specific diagnosis that is being evaluated, monitored, or treated as if it exists) are acceptable and can be coded in the inpatient setting, when documented at the time of discharge. Thank you, Katy White RN Extension: [phone] Please use your independent medical judgment in providing your response. THIS QUERY IS PART OF THE PERMANENT MEDICAL RECORD Provider Response: Other (combined asthma and copd) Other Diagnosis: see above
--- NOTE | 2021-12-30 13:22 | MHC.CDI.CONC ---
CDI Concurrent Query Documentation Clarification: PHYSICIAN'S DOCUMENTATION REQUEST Date of Query: 12/30/21 1322 Patient Name: Betzaida Cho Admit Date: 11/12/21 Dear Doctor, Please review the following and provide your response in the progress notes. Clinical Indicators: The diagnosis of asthma was documented in the record on [enter date]. Additional clinical indicators from the record include: Risk Factors/Clinical Indicators/Treatments Per MD progress note 12/29/21: chronic hypoxic respiratory failure likely 2/2 OHS, COPD + asthma prn Albuterol 1-2 liters nc at baseline Based on the above, please clarify in the Progress Notes further specificity regarding the type and acuity of the asthma: Type: Mild intermittent - less than 2x/week Mild persistent - more than 2x/week but not daily Moderate persistent - daily and may restrict physical activity Severe persistent - throughout the day with frequent attacks, limiting activities Exercise induced Chronic obstructive asthma and indicate if with acute lower respiratory infection Asthma with underlying COPD and indicate if with acute lower respiratory infection Other ? please specify Unable to determine Acuity: With acute exacerbation With status asthmaticus Uncomplicated Unable to determine Use of terms such as suspected, likely, concern for, or probable (associated with a specific diagnosis that is being evaluated, monitored, or treated as if it exists) are acceptable and can be coded in the inpatient setting, when documented at the time of discharge. Thank you, Katy White RN Extension: [phone] Please use your independent medical judgment in providing your response. THIS QUERY IS PART OF THE PERMANENT MEDICAL RECORD Provider Response: Other (combined asthma and copd) Other Diagnosis: see above
--- NOTE | 2021-12-30 14:51 | P.PNIM_ITS ---
Subjective Subjective Date of Service: 12/30/21 Interval History: Seen and examined this morning Follow-up for inability to ambulate Reports 2 episodes of diarrhea this morning, nonbloody. No nausea, no vomiting Review of Systems Review of Systems: Yes all other systems are reviewed and are negative Constitutional Constitutional: Denies chills and Denies fever(s) Cardiovascular Cardiovascular: Denies chest pain, Denies palpitations and Denies dyspnea Respiratory Respiratory: Denies cough and Denies dyspnea Gastrointestinal Gastrointestinal: Reports diarrhea and Denies vomiting Endocrine Endocrine: Denies palpitations Physical Exam Vital Signs: Vital Signs: Last Vital Signs Temp 97.7 F 12/30/21 11:32 Pulse 78 12/30/21 11:32 Resp 17 12/30/21 11:32 BP 138/81 12/30/21 11:32 Pulse Ox 97 12/30/21 11:32 O2 Del Method 12/30/21 11:32 O2 Flow Rate 2 12/30/21 11:32 BMI result Body Mass Index 62.8 Const: General: cooperative, healthy appearing, comfortable, no acute distress, alert and awake Nutritional Appearance: obese Chest: Chest palpation & inspection: normal inspection of the chest Resp: Effort & Inspection: normal respiratory effort, able to speak in complete sentences and no respiratory distress Auscultation: diminished lung sounds Cardio: Rate: regular rate Rhythm: regular rhythm GI: Inspection: Yes normal to inspection, No distended and Yes obesity Palpation (GI): Soft to palpation and nontender Extrem: Other: Bilateral lower extremity chronic venous stasis changes General: Yes no pedal edema Objective Data Active Medications Acetaminophen (Acetaminophen 325 Mg Tablet) 650 mg PO Q6H PRN PRN Reason: Pain, Mild (Pain Scale 1-3) Last Admin: 12/29/21 14:24 Dose: 650 mg Documented By: LAVERN Albuterol Sulfate (Albuterol Sulfate 90 Mcg 8 Gm Inhaler) 2 puff INHALE Q4H PRN PRN Reason: wheezing Amlodipine Besylate (Amlodipine Besylate 5 Mg Tablet) 5 mg PO DAILY [facility]; Protocol Last Admin: 12/30/21 08:36 Dose: 5 mg Documented By: JOCELYNE Aspirin (Aspirin Enteric Coated 81 Mg Tablet.) 81 mg PO DAILY [facility] Last Admin: 12/30/21 08:36 Dose: 81 mg Documented By: JOCELYNE Atorvastatin Calcium (Atorvastatin Calcium 80 Mg Tablet) 80 mg PO BEDTIME [facility] Last Admin: 12/29/21 21:13 Dose: 80 mg Documented By: EMY Buprenorphine/Naloxone (Buprenorphine/Naloxone 8/2 Mg Film) 1 film SUBLINGUAL TID [facility] Last Admin: 12/30/21 08:38 Dose: 1 film Documented By: JOCELYNE Clonazepam (Clonazepam 0.5 Mg Tablet) 0.5 mg PO DAILY PRN PRN Reason: Anxiety Last Admin: 12/30/21 08:36 Dose: 0.5 mg Documented By: JOCELYNE Fluoxetine HCl (Fluoxetine Hcl 20 Mg Capsule) 60 mg PO DAILY [facility] Last Admin: 12/30/21 08:38 Dose: 60 mg Documented By: JOCELYNE Furosemide (Furosemide 40 Mg Tablet) 40 mg PO BID@0900,1800 [facility]; Protocol Last Admin: 12/30/21 08:37 Dose: 40 mg Documented By: JOCELYNE Gabapentin (Gabapentin 600 Mg Tablet) 600 mg PO TID [facility] Last Admin: 12/30/21 08:37 Dose: 600 mg Documented By: JOCELYNE Heparin Sodium (Porcine) (Heparin Sodium,Porcine 5,000 Unit/Ml Vial) 5,000 unit SUBCUT Q8H [facility] Last Admin: 12/30/21 05:51 Dose: 5,000 unit Documented By: MILADYS Ibuprofen (Ibuprofen 400 Mg Tablet) 400 mg PO Q6H PRN PRN Reason: moderate pain Last Admin: 12/30/21 08:36 Dose: 400 mg Documented By: JOCELYNE Insulin Glargine (Insulin Glargine,Hum.Rec.Anlog 100 Unit/Ml 10 Ml Vial) 18 unit SUBCUT BEDTIME [facility] Last Admin: 12/29/21 21:14 Dose: 18 unit Documented By: EMY Insulin Human Lispro (Insulin Lispro 100 Unit/Ml 3 Ml Vial) 0 unit SUBCUT QIDACHS [facility]; Protocol Last Admin: 12/30/21 12:16 Dose: Not Given Documented By: JOCELYNE Non-Admin Reason: No Insulin Coverage Insulin Human Lispro (Insulin Lispro 100 Unit/Ml 3 Ml Vial) 5 unit SUBCUT QIDACHS [facility] Last Admin: 12/30/21 12:16 Dose: Not Given Documented By: JOCELYNE Non-Admin Reason: No Insulin Coverage Lactic Acid (Ammonium Lactate 12 % Lotion 226 Gm Bottle) 1 appl TOPICAL BID [facility]; Protocol Last Admin: 12/30/21 08:46 Dose: 1 appl Documented By: JOCELYNE Levothyroxine Sodium (Levothyroxine Sodium 125 Mcg Tablet) 250 mcg PO DAILY@0630 [facility] Last Admin: 12/30/21 05:51 Dose: 250 mcg Documented By: MILADYS Lidocaine (Lidocaine 4 % Patch Adh..Patch) 1 patch TRANSDERMA DAILY [facility]; Protocol Last Admin: 12/30/21 08:38 Dose: 1 patch Documented By: JOCELYNE Lidocaine (Lidocaine 4 % Patch Adh..Patch) 1 patch TRANSDERMA DAILY [facility]; Protocol Last Admin: 12/30/21 08:47 Dose: Not Given Documented By: JOCELYNE Non-Admin Reason: Patient Refused Loratadine (Loratadine 10 Mg Tablet) 10 mg PO DAILY [facility] Last Admin: 12/30/21 08:37 Dose: 10 mg Documented By: JOCELYNE Magnesium Hydroxide (Milk Of Magnesia 30 Ml Oral.Susp) 15 ml PO BEDTIME PRN PRN Reason: Constipation Last Admin: 11/30/21 19:34 Dose: 15 ml Documented By: ADINA Mineral Oil (Mineral Oil Enema 133 Ml Enema) 133 ml [place] ONCE PRN PRN Reason: constipation Nystatin (Nystatin Powder 15 Gm Bottle) 1 appl TOPICAL TID [facility]; Protocol Last Admin: 12/30/21 08:46 Dose: 1 appl Documented By: JOCELYNE Omeprazole (Omeprazole 20 Mg Capsule.Dr) 20 mg PO BID@0630,1630 [facility] Last Admin: 12/30/21 05:51 Dose: 20 mg Documented By: MILADYS Ondansetron HCl (Ondansetron Hcl 4 Mg/2 Ml Vial) 4 mg IVPUSH Q8H PRN PRN Reason: Nausea and Vomiting Pharmacy Consult (Consult Rx Perform Med Rec) 1 each MISCELLANE ONCE PRN PRN Reason: Consult order Polyethylene Glycol (Polyethylene Glycol 3350 17 Gm Powd.Pack) 17 gm PO DAILY [facility] Last Admin: 12/30/21 08:48 Dose: Not Given Documented By: JOCELYNE Non-Admin Reason: Patient Refused Senna/Docusate Sodium (Sennosides/Docusate Sodium Tablet) 1 tab PO DAILY [facility] Last Admin: 12/30/21 08:48 Dose: Not Given Documented By: JOCELYNE Non-Admin Reason: Patient Refused Sodium Chloride (0.9 % Sodium Chloride Flush 3 Ml Syringe) 3 ml IVFLUSH QSHIFT [facility] Last Admin: 12/30/21 08:47 Dose: Not Given Documented By: JOCELYNE Non-Admin Reason: No Access Trazodone HCl (Trazodone Hcl 100 Mg Tablet) 200 mg PO BEDTIME PRN PRN Reason: Insomnia Last Admin: 12/28/21 19:46 Dose: 200 mg Documented By: VARGAS Labs CBC & Chem 7: 12/15/21 05:18 12/15/21 05:18 Labs: Laboratory Results - last 24 hr 12/29/21 12/29/21 12/30/21 15:51 20:01 07:30 POC Glucose 135 H 149 H 143 H 12/30/21 11:28 POC Glucose 117 H Assessment and Plan (1) Physical deconditioning: Status: Acute Plan 51 yo F who presented to ED with LE swelling, was awaiting STR placement but noted to have abd swelling and found to have hydronephrosis on abd CT that turns out to be chronic with decreased R kidney function ?no new medical issues in last 24 hours Physical deconditioning Patient unable to ambulate or even stand up at this point from prolonged hospital stay and deconditioning Physical therapy, nursing staff are following with her with a plan to keep ambulating her and trying to get her up on her feet in order to place her to SNF or to go back home if she is able to climb the stairs.? encourage OOB to chair daily morbid obesity discussed importance of weight management as this is likely contributing to worsening of other comorbidities Constipation multiple BMs documented continue bowel regimen Right hand swelling Neg for VTE chronic LE edema/ probable chronic right-sided heart failure US negative for VTE; likely due to obesity, anemia, hypoalbuminemia, and likely R-sided HF ?echo showing preserved ejection fraction and elevated right atrial pressures IV furosemide changed to oral Lasix chronic hypoxic resp failure likely 2/2 OHS, combined chronic COPD + asthma without acute exacerbation overall better prn albuterol 1-2 liters nc at baseline chest/shoulder pain EKG normal and hs-Tn-I normal.? origin is MSK, likely shoulder impingement; continue lidocaine patch, PT/OT R hydronephrosis/proximal ureteral dilation Urology seen- no acute therapy indicated- chronic issue.? Lasix renogram showed diminished R renal function; normal on L.? outpt Uro f/u.? renal function stable. acute/chronic normocytic anemia likely anemia of CKD, improved s/p 1u pRBCs; normal iron studies/B12/FA H/H stable CKD3 Creatinine at baseline UTI treated with Ceftriaxone HTN continue amlodipine HLD continue atorvastatin L knee pain APAP for arthritis pain DM2 A1c 9.2, basal/bolus insulin hypothyroid TSH 20.29, increased LT4 200->250 mcg/d and repeat TSH in 6 wk mood disorder continue fluoxetine GERD PPI OUD Suboxone VTE ppx- UFH ?attending -Dr. Dolan? Continued hospitalization/dispo - seen by physical therapy; they recommend short-term rehab for optimal functional gains.? however, no STR beds are available in the state due to her weight + Suboxone use + Covid-19 unvaccinated status.? She declines Covid-19 vaccine due to alevism beliefs as a [employer]ism. ? CM broadening search.? PT and OT working with pt to gain ability to get up her stairs herself in which case she could go home with VNA at some point Quality Stroke Does the patient have a stroke diagnosis?: No VTE Prior VTE?: No VTE Risk Level:: Medical - moderate - high VTE Device Contraindication: Treatment Not Indicated VTE Drug Contraindication: N/A - Med Ordered
[2021-12-30 16:15] LABS: Glucose, Whole Blood 196 mg/dL (60-115)
[2021-12-30 19:42] LABS: Glucose, Whole Blood 162 mg/dL (60-115)
[2021-12-30] MEDS: Atorvastatin Calcium 80 MG TABLET PO (22:02)
[2021-12-30] MEDS: Insulin Glargine,Hum.rec.anlog 100 UNIT/ML 10 ML VIAL 18 UNIT SUBCUT (22:02)
[2021-12-30] MEDS: traZODone HCL 100 MG TABLET 200 MG PO (22:31)
[2021-12-31 03:15] VITALS: BP 127/77; PULSE 86; RESP 16; TEMP 36.3; O2SAT 96
[2021-12-31] MEDS: Levothyroxine Sodium 125 MCG TABLET 250 MCG PO (06:17)
[2021-12-31] MEDS: Omeprazole 20 MG CAPSULE.DR PO ×2 (06:17→17:00)
[2021-12-31] MEDS: Heparin Sodium,Porcine 5,000 UNIT/ML VIAL 5000 UNIT SUBCUT ×3 (06:18→20:09)
[2021-12-31 07:23] LABS: Glucose, Whole Blood 131 mg/dL (60-115)
[2021-12-31 08:00] VITALS: BP 129/68; PULSE 82; RESP 16; TEMP 36.2; O2SAT 94
[2021-12-31] MEDS: Ibuprofen 400 MG TABLET PO (08:04)
[2021-12-31] MEDS: Buprenorphine/Naloxone 8/2 mg FILM 1 FILM SUBLINGUAL ×3 (08:04→20:08)
[2021-12-31] MEDS: clonazePAM 0.5 MG TABLET PO (08:04)
[2021-12-31] MEDS: Furosemide 40 MG TABLET PO ×2 (08:05→17:00)
[2021-12-31] MEDS: Gabapentin 600 MG TABLET PO ×3 (08:05→20:08)
[2021-12-31] MEDS: amLODIPine Besylate 5 MG TABLET PO (08:05)
[2021-12-31] MEDS: Aspirin Enteric Coated 81 MG TABLET.DR PO (08:05)
[2021-12-31] MEDS: Lidocaine 4 % Patch ADH..PATCH 1 PATCH TRANSDERMA (08:05)
[2021-12-31] MEDS: FLUoxetine HCl 20 MG CAPSULE 60 MG PO (08:05)
[2021-12-31] MEDS: Loratadine 10 MG TABLET PO (08:05)
[2021-12-31] MEDS: Ammonium Lactate 12 % Lotion 226 GM BOTTLE 1 APPL TOPICAL ×2 (08:06→20:17)
[2021-12-31] MEDS: Nystatin Powder 15 GM BOTTLE 1 APPL TOPICAL ×3 (08:06→20:17)
[2021-12-31] MEDS: Insulin Lispro 100 UNIT/ML 3 ML VIAL SUBCUT ×3 (08:07→20:08)
[2021-12-31 11:54] VITALS: BP 131/65; PULSE 77; RESP 16; TEMP 36.2; O2SAT 94
--- NOTE | 2021-12-31 13:17 | P.PNIM_ITS ---
Subjective Subjective Date of Service: 12/31/21 Interval History: Seen and examined this morning Follow-up for placement Foot got stuck getting out of chair yesterday, reporting some pain right foot. No erythema or injury seen Review of Systems Review of Systems: Yes all other systems are reviewed and are negative Constitutional Constitutional: Denies chills and Denies fever(s) Cardiovascular Cardiovascular: Denies chest pain, Denies palpitations and Denies dyspnea Respiratory Respiratory: Denies cough and Denies dyspnea Gastrointestinal Gastrointestinal: Denies abdominal pain, Denies nausea and Denies vomiting Endocrine Endocrine: Denies palpitations Physical Exam Vital Signs: Vital Signs: Last Vital Signs Temp 97.1 F 12/31/21 11:54 Pulse 77 12/31/21 11:54 Resp 16 12/31/21 11:54 BP 131/65 12/31/21 11:54 Pulse Ox 94 12/31/21 11:54 O2 Del Method 12/31/21 11:54 O2 Flow Rate 2 12/31/21 11:54 BMI result Body Mass Index 62.8 Const: General: cooperative, comfortable, no acute distress, alert and awake Nutritional Appearance: obese Resp: Effort & Inspection: normal respiratory effort, able to speak in complete sentences and no respiratory distress Auscultation: diminished lung sounds Cardio: Rate: regular rate Rhythm: regular rhythm GI: Inspection: Yes normal to inspection, No distended and Yes obesity Palpation (GI): Soft to palpation and nontender Extrem: Other: Bilateral lower extremity chronic venous stasis changes Objective Data Active Medications Acetaminophen (Acetaminophen 325 Mg Tablet) 650 mg PO Q6H PRN PRN Reason: Pain, Mild (Pain Scale 1-3) Last Admin: 12/29/21 14:24 Dose: 650 mg Documented By: LAVERN Albuterol Sulfate (Albuterol Sulfate 90 Mcg 8 Gm Inhaler) 2 puff INHALE Q4H PRN PRN Reason: wheezing Amlodipine Besylate (Amlodipine Besylate 5 Mg Tablet) 5 mg PO DAILY [facility]; Protocol Last Admin: 12/31/21 08:05 Dose: 5 mg Documented By: JOCELYNE Aspirin (Aspirin Enteric Coated 81 Mg Tablet.) 81 mg PO DAILY [facility] Last Admin: 12/31/21 08:05 Dose: 81 mg Documented By: JOCELYNE Atorvastatin Calcium (Atorvastatin Calcium 80 Mg Tablet) 80 mg PO BEDTIME [facility] Last Admin: 12/30/21 22:02 Dose: 80 mg Documented By: EMY Buprenorphine/Naloxone (Buprenorphine/Naloxone 8/2 Mg Film) 1 film SUBLINGUAL TID [facility] Last Admin: 12/31/21 08:04 Dose: 1 film Documented By: JOCELYNE Clonazepam (Clonazepam 0.5 Mg Tablet) 0.5 mg PO DAILY PRN PRN Reason: Anxiety Last Admin: 12/31/21 08:04 Dose: 0.5 mg Documented By: JOCELYNE Fluoxetine HCl (Fluoxetine Hcl 20 Mg Capsule) 60 mg PO DAILY [facility] Last Admin: 12/31/21 08:05 Dose: 60 mg Documented By: JOCELYNE Furosemide (Furosemide 40 Mg Tablet) 40 mg PO BID@0900,1800 [facility]; Protocol Last Admin: 12/31/21 08:05 Dose: 40 mg Documented By: JOCELYNE Gabapentin (Gabapentin 600 Mg Tablet) 600 mg PO TID [facility] Last Admin: 12/31/21 08:05 Dose: 600 mg Documented By: JOCELYNE Heparin Sodium (Porcine) (Heparin Sodium,Porcine 5,000 Unit/Ml Vial) 5,000 unit SUBCUT Q8H [facility] Last Admin: 12/31/21 06:18 Dose: 5,000 unit Documented By: ANNA MARIE Ibuprofen (Ibuprofen 400 Mg Tablet) 400 mg PO Q6H PRN PRN Reason: moderate pain Last Admin: 12/31/21 08:04 Dose: 400 mg Documented By: JOCELYNE Insulin Glargine (Insulin Glargine,Hum.Rec.Anlog 100 Unit/Ml 10 Ml Vial) 18 unit SUBCUT BEDTIME [facility] Last Admin: 12/30/21 22:02 Dose: 18 unit Documented By: EMY Insulin Human Lispro (Insulin Lispro 100 Unit/Ml 3 Ml Vial) 0 unit SUBCUT QIDACHS [facility]; Protocol Last Admin: 12/31/21 12:11 Dose: Not Given Documented By: JOCELYNE Non-Admin Reason: No Insulin Coverage Insulin Human Lispro (Insulin Lispro 100 Unit/Ml 3 Ml Vial) 5 unit SUBCUT QIDACHS [facility] Last Admin: 12/31/21 12:11 Dose: Not Given Documented By: JOCELYNE Non-Admin Reason: No Insulin Coverage Lactic Acid (Ammonium Lactate 12 % Lotion 226 Gm Bottle) 1 appl TOPICAL BID [facility]; Protocol Last Admin: 12/31/21 08:06 Dose: 1 appl Documented By: JOCELYNE Levothyroxine Sodium (Levothyroxine Sodium 125 Mcg Tablet) 250 mcg PO DAILY@0630 [facility] Last Admin: 12/31/21 06:17 Dose: 250 mcg Documented By: ANNA MARIE Lidocaine (Lidocaine 4 % Patch Adh..Patch) 1 patch TRANSDERMA DAILY [facility]; Protocol Last Admin: 12/31/21 08:05 Dose: 1 patch Documented By: JOCELYNE Lidocaine (Lidocaine 4 % Patch Adh..Patch) 1 patch TRANSDERMA DAILY [facility]; Protocol Last Admin: 12/31/21 08:12 Dose: Not Given Documented By: JOCELYNE Non-Admin Reason: Patient Refused Loratadine (Loratadine 10 Mg Tablet) 10 mg PO DAILY [facility] Last Admin: 12/31/21 08:05 Dose: 10 mg Documented By: JOCELYNE Magnesium Hydroxide (Milk Of Magnesia 30 Ml Oral.Susp) 15 ml PO BEDTIME PRN PRN Reason: Constipation Last Admin: 11/30/21 19:34 Dose: 15 ml Documented By: ADINA Mineral Oil (Mineral Oil Enema 133 Ml Enema) 133 ml IN ONCE PRN PRN Reason: constipation Nystatin (Nystatin Powder 15 Gm Bottle) 1 appl TOPICAL TID [facility]; Protocol Last Admin: 12/31/21 08:06 Dose: 1 appl Documented By: JOCELYNE Omeprazole (Omeprazole 20 Mg Capsule.Dr) 20 mg PO BID@0630,1630 [facility] Last Admin: 12/31/21 06:17 Dose: 20 mg Documented By: ANNA MARIE Ondansetron HCl (Ondansetron Hcl 4 Mg/2 Ml Vial) 4 mg IVPUSH Q8H PRN PRN Reason: Nausea and Vomiting Pharmacy Consult (Consult Rx Perform Med Rec) 1 each MISCELLANE ONCE PRN PRN Reason: Consult order Polyethylene Glycol (Polyethylene Glycol 3350 17 Gm Powd.Pack) 17 gm PO DAILY [facility] Last Admin: 12/31/21 08:12 Dose: Not Given Documented By: JOCELYNE Non-Admin Reason: Patient Refused Senna/Docusate Sodium (Sennosides/Docusate Sodium Tablet) 1 tab PO DAILY [facility] Last Admin: 12/31/21 08:12 Dose: Not Given Documented By: JOCELYNE Non-Admin Reason: Patient Refused Sodium Chloride (0.9 % Sodium Chloride Flush 3 Ml Syringe) 3 ml IVFLUSH QSHIFT [facility] Last Admin: 12/31/21 08:08 Dose: Not Given Documented By: JOCELYNE Non-Admin Reason: No Access Trazodone HCl (Trazodone Hcl 100 Mg Tablet) 200 mg PO BEDTIME PRN PRN Reason: Insomnia Last Admin: 12/30/21 22:31 Dose: 200 mg Documented By: OFariha Labs CBC & Chem 7: 12/15/21 05:18 12/15/21 05:18 Labs: Laboratory Results - last 24 hr 12/30/21 12/30/21 12/31/21 15:55 19:36 07:04 POC Glucose 196 H 162 H 131 H Assessment and Plan (1) Physical deconditioning: Status: Acute Plan 51 yo F who presented to ED with LE swelling, was awaiting STR placement but noted to have abd swelling and found to have hydronephrosis on abd CT that turns out to be chronic with decreased R kidney function ?no new medical issues in last 24 hours Physical deconditioning Patient unable to ambulate or even stand up at this point from prolonged hospital stay and deconditioning Physical therapy, nursing staff are following with her with a plan to keep ambulating her and trying to get her up on her feet in order to place her to SNF or to go back home if she is able to climb the stairs.? encourage OOB to chair daily morbid obesity discussed importance of weight management as this is likely contributing to worsening of other comorbidities Constipation multiple BMs documented continue bowel regimen Right hand swelling Neg for VTE chronic LE edema/ probable chronic right-sided heart failure US negative for VTE; likely due to obesity, anemia, hypoalbuminemia, and likely R-sided HF ?echo showing preserved ejection fraction and elevated right atrial pressures IV furosemide changed to oral Lasix chronic hypoxic resp failure likely 2/2 OHS, combined chronic COPD + asthma without acute exacerbation overall better prn albuterol 1-2 liters nc at baseline chest/shoulder pain EKG normal and hs-Tn-I normal.? origin is MSK, likely shoulder impingement; cont inue lidocaine patch, PT/OT R hydronephrosis/proximal ureteral dilation Urology seen- no acute therapy indicated- chronic issue.? Lasix renogram showed diminished R renal function; normal on L.? outpt Uro f/u.? renal function stable. acute/chronic normocytic anemia likely anemia of CKD, improved s/p 1u pRBCs; normal iron studies/B12/FA H/H stable CKD3 Creatinine at baseline UTI treated with Ceftriaxone HTN continue amlodipine HLD continue atorvastatin L knee pain APAP for arthritis pain DM2 A1c 9.2, basal/bolus insulin hypothyroid TSH 20.29, increased LT4 200->250 mcg/d and repeat TSH in 6 wk mood disorder continue fluoxetine GERD PPI OUD Suboxone VTE ppx- [facility]FH ?attending -Dr. Dolan? Continued hospitalization/dispo - seen by physical therapy; they recommend short-term rehab for optimal functional gains.? however, no STR beds are available in the state due to her weight + Suboxone use + Covid-19 unvaccinated status.? She declines Covid-19 vaccine due to pentecostalism beliefs as a [employer]. ? CM broadening search.? PT and OT working with pt to gain ability to get up her stairs herself in which case she could go home with VNA at some point Quality Stroke Does the patient have a stroke diagnosis?: No VTE Prior VTE?: No VTE Risk Level:: Medical - moderate - high VTE Device Contraindication: Treatment Not Indicated VTE Drug Contraindication: N/A - Med Ordered
[2021-12-31 14:38] LABS: Glucose, Whole Blood 127 mg/dL (60-115)
[2021-12-31 15:13] VITALS: BP 134/64; PULSE 73; RESP 17; TEMP 36.2; O2SAT 98
[2021-12-31 15:59] LABS: Glucose, Whole Blood 140 mg/dL (60-115)
[2021-12-31 19:09] VITALS: BP 120/57; PULSE 83; RESP 18; TEMP 36.4; O2SAT 94
[2021-12-31 19:50] LABS: Glucose, Whole Blood 170 mg/dL (60-115)
[2021-12-31] MEDS: Insulin Glargine,Hum.rec.anlog 100 UNIT/ML 10 ML VIAL 18 UNIT SUBCUT (20:07)
[2021-12-31] MEDS: Atorvastatin Calcium 80 MG TABLET PO (20:08)
[2021-12-31] MEDS: traZODone HCL 100 MG TABLET 200 MG PO (20:13)
[2021-12-31 23:46] VITALS: BP 133/72; PULSE 76; RESP 16; TEMP 36.2; O2SAT 93
[2022-01-01] MEDS: Levothyroxine Sodium 125 MCG TABLET 250 MCG PO (05:05)
[2022-01-01] MEDS: Omeprazole 20 MG CAPSULE.DR PO ×2 (05:05→16:20)
[2022-01-01] MEDS: Heparin Sodium,Porcine 5,000 UNIT/ML VIAL 5000 UNIT SUBCUT ×3 (05:06→20:33)
[2022-01-01 06:53] LABS: Hematocrit 30.3 % (37.0-47.0); Hemoglobin 8.9 g/dl (12.0-16.0); Mean Corpuscular HGB Conc 29.4 g/dl (31.0-35.0); Mean Corpuscular Hemoglobin 25.4 pg (27.0-33.0); Mean Corpuscular Volume 86.3 fL (80.0-98.0); Mean Platelet Volume 10.4 fL (9.4-12.3); Platelet Count 271 X10*3/uL (160-400); Red Blood Count 3.51 X10*6/uL (4.20-5.50); Red Cell Distribution Width 18.5 % (11.0-16.0); White Blood Count 6.5 X10*3/uL (4.8-10.8)
[2022-01-01 07:09] VITALS: BP 140/76; PULSE 84; RESP 18; TEMP 36.4; O2SAT 94
[2022-01-01 07:31] LABS: Anion Gap 14 (12-20); Blood Urea Nitrogen 62 mg/dL (9-16); Calcium 8.9 mg/dL (8.4-10.2); Carbon Dioxide 28 mmol/L (22-29); Chloride 101 mmol/L (96-108); Creatinine Clr Calc Pharmacy 64.4; Estimated Glomerular Filt Rate 30; Glucose Random 143 mg/dL (60-115); Sodium 138 mmol/L (135-145)
[2022-01-01 07:39] LABS: Glucose, Whole Blood 135 mg/dL (60-115)
[2022-01-01] MEDS: Furosemide 40 MG TABLET PO (08:48)
[2022-01-01] MEDS: amLODIPine Besylate 5 MG TABLET PO (08:48)
[2022-01-01] MEDS: FLUoxetine HCl 20 MG CAPSULE 60 MG PO (08:48)
[2022-01-01] MEDS: clonazePAM 0.5 MG TABLET PO (08:49)
[2022-01-01] MEDS: Ibuprofen 400 MG TABLET PO (08:49)
[2022-01-01] MEDS: Buprenorphine/Naloxone 8/2 mg FILM 1 FILM SUBLINGUAL ×3 (08:49→20:33)
[2022-01-01] MEDS: Gabapentin 600 MG TABLET PO ×3 (08:49→20:33)
[2022-01-01] MEDS: Aspirin Enteric Coated 81 MG TABLET.DR PO (08:50)
[2022-01-01] MEDS: Lidocaine 4 % Patch ADH..PATCH 1 PATCH TRANSDERMA ×2 (08:50→09:04)
[2022-01-01] MEDS: Nystatin Powder 15 GM BOTTLE 1 APPL TOPICAL ×3 (08:50→20:36)
[2022-01-01] MEDS: Ammonium Lactate 12 % Lotion 226 GM BOTTLE 1 APPL TOPICAL ×2 (08:50→20:34)
[2022-01-01] MEDS: Loratadine 10 MG TABLET PO (09:24)
[2022-01-01 11:08] VITALS: BP 130/64; PULSE 80; RESP 19; TEMP 36.5; O2SAT 94
[2022-01-01 11:19] LABS: Glucose, Whole Blood 125 mg/dL (60-115)
--- NOTE | 2022-01-01 13:02 | HO.PM.IMPN ---
Subjective Subjective Date of Service: 01/01/22 Interval History: Seen and examined this morning Right knee sore from getting like soft wall and transitioning to chair 2 days ago Otherwise no specific complaints Review of Systems Review of Systems: Yes all other systems are reviewed and are negative Constitutional Constitutional: Denies chills and Denies fatigue Cardiovascular Cardiovascular: Denies chest pain, Denies palpitations and Denies dyspnea Respiratory Respiratory: Denies cough and Denies dyspnea Gastrointestinal Gastrointestinal: Denies abdominal pain, Denies nausea and Denies vomiting Endocrine Endocrine: Denies fatigue and Denies palpitations Physical Exam Vital Signs: Vital Signs: Last Vital Signs Temp 97.7 F 01/01/22 11:08 Pulse 80 01/01/22 11:08 Resp 19 01/01/22 11:08 BP 130/64 01/01/22 11:08 Pulse Ox 94 01/01/22 11:08 O2 Del Method 01/01/22 11:08 O2 Flow Rate 2 01/01/22 11:08 BMI result Body Mass Index 62.8 Const: General: comfortable, alert and awake Nutritional Appearance: obese Orientation/consciousness: patient oriented x3 Resp: Effort & Inspection: normal respiratory effort, able to speak in complete sentences, no respiratory distress and no use of accessory muscles Auscultation: diminished lung sounds Cardio: Heart sounds: S1 normal heart sound present and S2 normal heart sound present GI: Inspection: No distended, Yes Abdominal panniculus present and Yes obesity Palpation (GI): Soft to palpation and nontender Skin: Other: Bilateral chronic venous stasis changes to lower extremities No bruising or wound noted to right knee/leg; no effusion appreciated Neuro: General: patient oriented x3 Objective Data Active Medications Acetaminophen (Acetaminophen 325 Mg Tablet) 650 mg PO Q6H PRN PRN Reason: Pain, Mild (Pain Scale 1-3) Last Admin: 12/29/21 14:24 Dose: 650 mg Documented By: LAVERN Albuterol Sulfate (Albuterol Sulfate 90 Mcg 8 Gm Inhaler) 2 puff INHALE Q4H PRN PRN Reason: wheezing Amlodipine Besylate (Amlodipine Besylate 5 Mg Tablet) 5 mg PO DAILY [facility]; Protocol Last Admin: 01/01/22 08:48 Dose: 5 mg Documented By: JOCELYNE Aspirin (Aspirin Enteric Coated 81 Mg Tablet.) 81 mg PO DAILY [facility] Last Admin: 01/01/22 08:50 Dose: 81 mg Documented By: JOCELYNE Atorvastatin Calcium (Atorvastatin Calcium 80 Mg Tablet) 80 mg PO BEDTIME [facility] Last Admin: 12/31/21 20:08 Dose: 80 mg Documented By: GAYLA Buprenorphine/Naloxone (Buprenorphine/Naloxone 8/2 Mg Film) 1 film SUBLINGUAL TID [facility] Last Admin: 01/01/22 08:49 Dose: 1 film Documented By: JOCELYNE Clonazepam (Clonazepam 0.5 Mg Tablet) 0.5 mg PO DAILY PRN PRN Reason: Anxiety Last Admin: 01/01/22 08:49 Dose: 0.5 mg Documented By: JOCELYNE Fluoxetine HCl (Fluoxetine Hcl 20 Mg Capsule) 60 mg PO DAILY [facility] Last Admin: 01/01/22 08:48 Dose: 60 mg Documented By: JOCELYNE Furosemide (Furosemide 40 Mg Tablet) 40 mg PO BID@0900,1800 [facility]; Protocol Last Admin: 01/01/22 08:48 Dose: 40 mg Documented By: JOCELYNE Gabapentin (Gabapentin 600 Mg Tablet) 600 mg PO TID [facility] Last Admin: 01/01/22 08:49 Dose: 600 mg Documented By: JOCELYNE Heparin Sodium (Porcine) (Heparin Sodium,Porcine 5,000 Unit/Ml Vial) 5,000 unit SUBCUT Q8H [facility] Last Admin: 01/01/22 05:06 Dose: 5,000 unit Documented By: GAYLA Ibuprofen (Ibuprofen 400 Mg Tablet) 400 mg PO BID PRN PRN Reason: moderate pain Last Admin: 01/01/22 08:49 Dose: 400 mg Documented By: JOCELYNE Insulin Glargine (Insulin Glargine,Hum.Rec.Anlog 100 Unit/Ml 10 Ml Vial) 18 unit SUBCUT BEDTIME [facility] Last Admin: 12/31/21 20:07 Dose: 18 unit Documented By: GAYLA Insulin Human Lispro (Insulin Lispro 100 Unit/Ml 3 Ml Vial) 0 unit SUBCUT QIDACHS [facility]; Protocol Last Admin: 01/01/22 12:00 Dose: Not Given Documented By: JOCELYNE Non-Admin Reason: No Insulin Coverage Lactic Acid (Ammonium Lactate 12 % Lotion 226 Gm Bottle) 1 appl TOPICAL BID [facility]; Protocol Last Admin: 01/01/22 08:50 Dose: 1 appl Documented By: JOCELYNE Levothyroxine Sodium (Levothyroxine Sodium 125 Mcg Tablet) 250 mcg PO DAILY@0630 [facility] Last Admin: 01/01/22 05:05 Dose: 250 mcg Documented By: GAYLA Lidocaine (Lidocaine 4 % Patch Adh..Patch) 1 patch TRANSDERMA DAILY [facility]; Protocol Last Admin: 01/01/22 09:04 Dose: 1 patch Documented By: JOCELYNE Lidocaine (Lidocaine 4 % Patch Adh..Patch) 1 patch TRANSDERMA DAILY [facility]; Protocol Last Admin: 01/01/22 09:26 Dose: Not Given Documented By: JOCELYNE Non-Admin Reason: Patient Refused Lidocaine (Lidocaine 4 % Patch Adh..Patch) 1 patch TRANSDERMA DAILY [facility]; Protocol Last Admin: 01/01/22 09:24 Dose: Not Given Documented By: JOCELYNE Non-Admin Reason: Patient Refused Loratadine (Loratadine 10 Mg Tablet) 10 mg PO DAILY [facility] Last Admin: 01/01/22 09:24 Dose: 10 mg Documented By: JOCELYNE Magnesium Hydroxide (Milk Of Magnesia 30 Ml Oral.Susp) 15 ml PO BEDTIME PRN PRN Reason: Constipation Last Admin: 11/30/21 19:34 Dose: 15 ml Documented By: ADINA Mineral Oil (Mineral Oil Enema 133 Ml Enema) 133 ml [place] ONCE PRN PRN Reason: constipation Nystatin (Nystatin Powder 15 Gm Bottle) 1 appl TOPICAL TID [facility]; Protocol Last Admin: 01/01/22 08:50 Dose: 1 appl Documented By: JOCELYNE Omeprazole (Omeprazole 20 Mg Capsule.) 20 mg PO BID@0630,1630 [facility] Last Admin: 01/01/22 05:05 Dose: 20 mg Documented By: GAYLA Ondansetron HCl (Ondansetron Hcl 4 Mg/2 Ml Vial) 4 mg IVPUSH Q8H PRN PRN Reason: Nausea and Vomiting Pharmacy Consult (Consult Rx Perform Med Rec) 1 each MISCELLANE ONCE PRN PRN Reason: Consult order Polyethylene Glycol (Polyethylene Glycol 3350 17 Gm Powd.Pack) 17 gm PO DAILY [facility] Last Admin: 01/01/22 09:03 Dose: Not Given Documented By: JOCELYNE Non-Admin Reason: Patient Refused Senna/Docusate Sodium (Sennosides/Docusate Sodium Tablet) 1 tab PO DAILY [facility] Last Admin: 01/01/22 09:03 Dose: Not Given Documented By: JOCELYNE Non-Admin Reason: Patient Refused Sodium Chloride (0.9 % Sodium Chloride Flush 3 Ml Syringe) 3 ml IVFLUSH QSHIFT [facility] Last Admin: 01/01/22 09:02 Dose: Not Given Documented By: JOCELYNE Non-Admin Reason: No Access Trazodone HCl (Trazodone Hcl 100 Mg Tablet) 200 mg PO BEDTIME PRN PRN Reason: Insomnia Last Admin: 12/31/21 20:13 Dose: 200 mg Documented By: GAYLA Labs CBC & Chem 7: 01/01/22 05:51 01/01/22 05:51 Labs: Laboratory Results - last 24 hr 12/31/21 12/31/21 12/31/21 11:14 15:15 19:12 MCV MCH MCHC RDW Plt Count MPV Absolute Nucleated RBC Nucleated RBC % (auto) Anion Gap Estim Creat Clear Calc Estimated GFR POC Glucose 127 H 140 H 170 H Random Glucose Calcium 01/01/22 01/01/22 01/01/22 05:51 05:51 07:14 MCV 86.3 MCH 25.4 L MCHC 29.4 L RDW 18.5 H Plt Count 271 MPV 10.4 Absolute Nucleated RBC 0.000 Nucleated RBC % (auto) 0.0 Anion Gap 14 Estim Creat Clear Calc 64.4 Estimated GFR 30 POC Glucose 135 H Random Glucose 143 H Calcium 8.9 01/01/22 11:11 MCV MCH MCHC RDW Plt Count MPV Absolute Nucleated RBC Nucleated RBC % (auto) Anion Gap Estim Creat Clear Calc Estimated GFR POC Glucose 125 H Random Glucose Calcium Assessment and Plan (1) Physical deconditioning: Status: Acute (2) RADHIKA (acute kidney injury): Status: Acute Plan 51 yo F who presented to ED with LE swelling, was awaiting STR placement but noted to have abd swelling and found to have hydronephrosis on abd CT that turns out to be chronic with decreased R kidney function RADHIKA on CKD3 Creatinine up to 1.8 -hold Lasix, d/c motrin -follow BNP DM2 A1c 9.2, basal/bolus insulin POCs well controlled -d/c scheduled pre meal insulin - follow POCs Physical deconditioning Patient unable to ambulate or even stand up at this point from prolonged hospital stay and deconditioning Physical therapy, nursing staff are following with her with a plan to keep ambulating her and trying to get her up on her feet in order to place her to SNF or to go back home if she is able to climb the stairs.? encourage OOB to chair daily morbid obesity discussed importance of weight management as this is likely contributing to worsening of other comorbidities Constipation multiple BMs documented continue bowel regimen Right hand swelling Neg for VTE chronic LE edema/ probable chronic right-sided heart failure US negative for VTE; likely due to obesity, anemia, hypoalbuminemia, and likely R-sided HF echo showing preserved ejection fraction and elevated right atrial pressures IV furosemide changed to oral Lasix - lasix now on hold for RADHIKA chronic hypoxic resp failure likely 2/2 OHS, combined chronic COPD + asthma without acute exacerbation overall better prn albuterol 1-2 liters nc at baseline chest/shoulder pain EKG normal and hs-Tn-I normal.? origin is MSK, likely shoulder impingement; continue lidocaine patch, PT/OT R hydronephrosis/proximal ureteral dilation Urology seen- no acute therapy indicated- chronic issue.? Lasix renogram showed diminished R renal function; normal on L.? outpt Uro f/u.? renal function stable. acute/chronic normocytic anemia likely anemia of CKD, improved s/p 1u pRBCs; normal iron studies/B12/FA H/H stable UTI treated with Ceftriaxone HTN continue amlodipine HLD continue atorvastatin L knee pain APAP for arthritis pain hypothyroid TSH 20.29, increased LT4 200->250 mcg/d and repeat TSH in 6 wk mood disorder continue fluoxetine GERD PPI OUD Suboxone VTE ppx- UFH ?attending -Dr. Garcias Continued hospitalization/dispo - seen by physical therapy; they recommend short-term rehab for optimal functional gains.? however, no STR beds are available in the state due to her weight + Suboxone use + Covid-19 unvaccinated status.? She declines Covid-19 vaccine due to religion beliefs as a [employer]. ? CM broadening search.? PT and OT working with pt to gain ability to get up her stairs herself in which case she could go home with VNA at some point Quality Stroke Does the patient have a stroke diagnosis?: No VTE Prior VTE?: No VTE Risk Level:: Medical - moderate - high VTE Device Contraindication: Treatment Not Indicated VTE Drug Contraindication: N/A - Med Ordered
[2022-01-01 15:13] VITALS: BP 138/68; PULSE 79; RESP 18; TEMP 36.1; O2SAT 94
[2022-01-01 15:49] LABS: Glucose, Whole Blood 160 mg/dL (60-115)
[2022-01-01] MEDS: Insulin Lispro 100 UNIT/ML 3 ML VIAL SUBCUT (16:20)
[2022-01-01 19:34] VITALS: BP 107/59; PULSE 83; RESP 18; TEMP 36.3; O2SAT 94
[2022-01-01 19:55] LABS: Glucose, Whole Blood 132 mg/dL (60-115)
[2022-01-01] MEDS: Insulin Glargine,Hum.rec.anlog 100 UNIT/ML 10 ML VIAL 18 UNIT SUBCUT (20:33)
[2022-01-01] MEDS: Atorvastatin Calcium 80 MG TABLET PO (20:33)
[2022-01-01] MEDS: traZODone HCL 100 MG TABLET 200 MG PO (20:38)
[2022-01-01 23:59] VITALS: BP 129/68; PULSE 79; RESP 18; TEMP 36.1; O2SAT 97
[2022-01-02 03:45] VITALS: BP 137/72; PULSE 78; RESP 18; TEMP 36.3; O2SAT 97
[2022-01-02 05:48] LABS: Anion Gap 15 (12-20); Blood Urea Nitrogen 64 mg/dL (9-16); Calcium 8.7 mg/dL (8.4-10.2); Carbon Dioxide 27 mmol/L (22-29); Chloride 101 mmol/L (96-108); Creatinine Clr Calc Pharmacy 61.6; Estimated Glomerular Filt Rate 28; Glucose Random 159 mg/dL (60-115); Potassium 4.7 mmol/L (3.3-5.1); Sodium 138 mmol/L (135-145)
[2022-01-02] MEDS: Omeprazole 20 MG CAPSULE.DR PO ×2 (06:40→17:21)
[2022-01-02] MEDS: Levothyroxine Sodium 125 MCG TABLET 250 MCG PO (06:40)
[2022-01-02] MEDS: Heparin Sodium,Porcine 5,000 UNIT/ML VIAL 5000 UNIT SUBCUT ×3 (06:40→20:34)
[2022-01-02 07:40] VITALS: BP 153/74; PULSE 84; RESP 17; TEMP 36.8; O2SAT 95
[2022-01-02 07:42] LABS: Glucose, Whole Blood 144 mg/dL (60-115)
[2022-01-02] MEDS: Buprenorphine/Naloxone 8/2 mg FILM 1 FILM SUBLINGUAL ×3 (08:32→20:34)
[2022-01-02] MEDS: Loratadine 10 MG TABLET PO (08:32)
[2022-01-02] MEDS: Aspirin Enteric Coated 81 MG TABLET.DR PO (08:32)
[2022-01-02] MEDS: FLUoxetine HCl 20 MG CAPSULE 60 MG PO (08:32)
[2022-01-02] MEDS: amLODIPine Besylate 5 MG TABLET PO (08:33)
[2022-01-02] MEDS: Gabapentin 600 MG TABLET PO ×3 (08:33→20:34)
[2022-01-02] MEDS: Ammonium Lactate 12 % Lotion 226 GM BOTTLE 1 APPL TOPICAL ×2 (08:33→20:41)
[2022-01-02] MEDS: Lidocaine 4 % Patch ADH..PATCH 1 PATCH TRANSDERMA ×2 (08:33→08:36)
[2022-01-02] MEDS: Nystatin Powder 15 GM BOTTLE 1 APPL TOPICAL ×3 (08:33→20:42)
[2022-01-02] MEDS: clonazePAM 0.5 MG TABLET PO (08:40)
[2022-01-02] MEDS: Acetaminophen 325 MG TABLET 650 MG PO ×2 (08:40→20:38)
--- NOTE | 2022-01-02 09:10 | HO.PM.IMPN ---
Subjective Subjective Date of Service: 01/02/22 Interval History: Seen and examined this morning Right knee sore from getting like soft wall and transitioning to chair 2 days ago Otherwise no specific complaints Review of Systems Review of Systems: Yes all other systems are reviewed and are negative Constitutional Constitutional: Denies chills and Denies fatigue Cardiovascular Cardiovascular: Denies chest pain, Denies palpitations and Denies dyspnea Respiratory Respiratory: Denies cough and Denies dyspnea Gastrointestinal Gastrointestinal: Denies abdominal pain, Denies nausea and Denies vomiting Endocrine Endocrine: Denies fatigue and Denies palpitations Physical Exam Vital Signs: Vital Signs: Last Vital Signs Temp 98.3 F 01/02/22 07:40 Pulse 84 01/02/22 07:40 Resp 17 01/02/22 07:40 BP 153/74 H 01/02/22 07:40 Pulse Ox 95 01/02/22 07:40 O2 Del Method 01/02/22 07:40 O2 Flow Rate 2 01/02/22 07:40 BMI result Body Mass Index 62.8 Appearing in no acute distress lung sounds are clear to auscultation heart regular rate rhythm, clear S1, S2 positive bowel sounds, abdomen is soft, nontender, obese neuro patient is alert x3, no focal deficits Objective Data Active Medications Acetaminophen (Acetaminophen 325 Mg Tablet) 650 mg PO Q6H PRN PRN Reason: Pain, Mild (Pain Scale 1-3) Last Admin: 01/02/22 08:40 Dose: 650 mg Documented By: AARON Albuterol Sulfate (Albuterol Sulfate 90 Mcg 8 Gm Inhaler) 2 puff INHALE Q4H PRN PRN Reason: wheezing Amlodipine Besylate (Amlodipine Besylate 5 Mg Tablet) 5 mg PO DAILY [facility]; Protocol Last Admin: 01/02/22 08:33 Dose: 5 mg Documented By: AARON Aspirin (Aspirin Enteric Coated 81 Mg Tablet.) 81 mg PO DAILY [facility] Last Admin: 01/02/22 08:32 Dose: 81 mg Documented By: AARON Atorvastatin Calcium (Atorvastatin Calcium 80 Mg Tablet) 80 mg PO BEDTIME [facility] Last Admin: 01/01/22 20:33 Dose: 80 mg Documented By: POLO Buprenorphine/Naloxone (Buprenorphine/Naloxone 8/2 Mg Film) 1 film SUBLINGUAL TID [facility] Last Admin: 01/02/22 08:32 Dose: 1 film Documented By: AARON Clonazepam (Clonazepam 0.5 Mg Tablet) 0.5 mg PO DAILY PRN PRN Reason: Anxiety Last Admin: 01/02/22 08:40 Dose: 0.5 mg Documented By: AARON Fluoxetine HCl (Fluoxetine Hcl 20 Mg Capsule) 60 mg PO DAILY [facility] Last Admin: 01/02/22 08:32 Dose: 60 mg Documented By: AARON Furosemide (Furosemide 40 Mg Tablet) 40 mg PO BID@0900,1800 [facility]; Protocol Last Admin: 01/01/22 08:48 Dose: 40 mg Documented By: JOCELYNE Gabapentin (Gabapentin 600 Mg Tablet) 600 mg PO TID [facility] Last Admin: 01/02/22 08:33 Dose: 600 mg Documented By: AARON Heparin Sodium (Porcine) (Heparin Sodium,Porcine 5,000 Unit/Ml Vial) 5,000 unit SUBCUT Q8H [facility] Last Admin: 01/02/22 06:40 Dose: 5,000 unit Documented By: ANNA MARIE Insulin Glargine (Insulin Glargine,Hum.Rec.Anlog 100 Unit/Ml 10 Ml Vial) 18 unit SUBCUT BEDTIME [facility] Last Admin: 01/01/22 20:33 Dose: 18 unit Documented By: POLO Insulin Human Lispro (Insulin Lispro 100 Unit/Ml 3 Ml Vial) 0 unit SUBCUT QIDACHS [facility]; Protocol Last Admin: 01/02/22 07:43 Dose: Not Given Documented By: AARON Non-Admin Reason: No Insulin Coverage Lactic Acid (Ammonium Lactate 12 % Lotion 226 Gm Bottle) 1 appl TOPICAL BID [facility]; Protocol Last Admin: 01/02/22 08:33 Dose: 1 appl Documented By: AARON Levothyroxine Sodium (Levothyroxine Sodium 125 Mcg Tablet) 250 mcg PO DAILY@0630 [facility] Last Admin: 01/02/22 06:40 Dose: 250 mcg Documented By: ANNA MARIE Lidocaine (Lidocaine 4 % Patch Adh..Patch) 1 patch TRANSDERMA DAILY [facility]; Protocol Last Admin: 01/01/22 09:04 Dose: 1 patch Documented By: JOCELYNE Lidocaine (Lidocaine 4 % Patch Adh..Patch) 1 patch TRANSDERMA DAILY [facility]; Protocol Last Admin: 01/02/22 08:36 Dose: 1 patch Documented By: AARON Lidocaine (Lidocaine 4 % Patch Adh..Patch) 1 patch TRANSDERMA DAILY [facility]; Protocol Last Admin: 01/02/22 08:33 Dose: 1 patch Documented By: AARON Loratadine (Loratadine 10 Mg Tablet) 10 mg PO DAILY [facility] Last Admin: 01/02/22 08:32 Dose: 10 mg Documented By: AARON Magnesium Hydroxide (Milk Of Magnesia 30 Ml Oral.Susp) 15 ml PO BEDTIME PRN PRN Reason: Constipation Last Admin: 11/30/21 19:34 Dose: 15 ml Documented By: ADINA Mineral Oil (Mineral Oil Enema 133 Ml Enema) 133 ml [place] ONCE PRN PRN Reason: constipation Nystatin (Nystatin Powder 15 Gm Bottle) 1 appl TOPICAL TID [facility]; Protocol Last Admin: 01/02/22 08:33 Dose: 1 appl Documented By: AARON Omeprazole (Omeprazole 20 Mg Capsule.Dr) 20 mg PO BID@0630,1630 [facility] Last Admin: 01/02/22 06:40 Dose: 20 mg Documented By: ANNA MARIE Ondansetron HCl (Ondansetron Hcl 4 Mg/2 Ml Vial) 4 mg IVPUSH Q8H PRN PRN Reason: Nausea and Vomiting Pharmacy Consult (Consult Rx Perform Med Rec) 1 each MISCELLANE ONCE PRN PRN Reason: Consult order Polyethylene Glycol (Polyethylene Glycol 3350 17 Gm Powd.Pack) 17 gm PO DAILY [facility] Last Admin: 01/01/22 09:03 Dose: Not Given Documented By: JOCELYNE Non-Admin Reason: Patient Refused Senna/Docusate Sodium (Sennosides/Docusate Sodium Tablet) 1 tab PO DAILY [facility] Last Admin: 01/01/22 09:03 Dose: Not Given Documented By: JOCELYNE Non-Admin Reason: Patient Refused Sodium Chloride (0.9 % Sodium Chloride Flush 3 Ml Syringe) 3 ml IVFLUSH QSHIFT [facility] Last Admin: 01/02/22 08:27 Dose: Not Given Documented By: AARON Non-Admin Reason: No Access Trazodone HCl (Trazodone Hcl 100 Mg Tablet) 200 mg PO BEDTIME PRN PRN Reason: Insomnia Last Admin: 01/01/22 20:38 Dose: 200 mg Documented By: DELMAC Labs CBC & Chem 7: 01/01/22 05:51 01/02/22 05:17 Labs: Laboratory Results - last 24 hr 01/01/22 01/01/22 01/01/22 11:11 15:40 19:39 Anion Gap Estim Creat Clear Calc Estimated GFR POC Glucose 125 H 160 H 132 H Random Glucose Calcium 01/02/22 01/02/22 05:17 07:34 Anion Gap 15 Estim Creat Clear Calc 61.6 Estimated GFR 28 POC Glucose 144 H Random Glucose 159 H Calcium 8.7 Assessment and Plan (1) Physical deconditioning: Status: Acute (2) RADHIKA (acute kidney injury): Status: Acute Plan 51 yo F who presented to ED with LE swelling, was awaiting STR placement but noted to have abd swelling and found to have hydronephrosis on abd CT that turns out to be chronic with decreased R kidney function RADHIKA on CKD3 Creatinine up to 1.89 continue to hold Lasix, d/c motrin follow BNP DM2 A1c 9.2, basal/bolus insulin POCs well controlled d/c scheduled pre meal insulin follow POCs Physical deconditioning Patient unable to ambulate or even stand up at this point from prolonged hospital stay and deconditioning Physical therapy, nursing staff are following with her with a plan to keep ambulating her and trying to get her up on her feet in order to place her to SNF or to go back home if she is able to climb the stairs.? encourage OOB to chair daily morbid obesity discussed importance of weight management as this is likely contributing to worsening of other comorbidities Constipation multiple BMs documented continue bowel regimen Right hand swelling Neg for VTE chronic LE edema/ probable chronic right-sided heart failure US negative for VTE; likely due to obesity, anemia, hypoalbuminemia, and likely R-sided HF echo showing preserved ejection fraction and elevated right atrial pressures IV furosemide changed to oral Lasix - lasix now on hold for RADHIKA chronic hypoxic resp failure likely 2/2 OHS, combined chronic COPD + asthma without acute exacerbation overall better prn albuterol 1-2 liters nc at baseline chest/shoulder pain EKG normal and hs-Tn-I normal.? origin is MSK, likely shoulder impingement; continue lidocaine patch, PT/OT R hydronephrosis/proximal ureteral dilation Urology seen- no acute therapy indicated- chronic issue.? Lasix renogram showed diminished R renal function; normal on L.? outpt Uro f/u.? renal function stable. acute/chronic normocytic anemia likely anemia of CKD, improved s/p 1u pRBCs; normal iron studies/B12/FA H/H stable UTI treated with Ceftriaxone HTN continue amlodipine HLD continue atorvastatin L knee pain APAP for arthritis pain hypothyroid TSH 20.29, increased LT4 200->250 mcg/d and repeat TSH in 6 wk mood disorder continue fluoxetine GERD PPI OUD Suboxone VTE ppx- UFH ?attending -Dr. Reddy Continued hospitalization/dispo - seen by physical therapy; they recommend short-term rehab for optimal functional gains.? however, no STR beds are available in the state due to her weight + Suboxone use + Covid-19 unvaccinated status.? She declines Covid-19 vaccine due to lutheran beliefs as a [employer]. ? CM broadening search.? PT and OT working with pt to gain ability to get up her stairs herself in which case she could go home with VNA at some point Quality Stroke Does the patient have a stroke diagnosis?: No VTE Prior VTE?: No VTE Risk Level:: Medical - moderate - high VTE Device Contraindication: Treatment Not Indicated VTE Drug Contraindication: N/A - Med Ordered
[2022-01-02 11:14] LABS: Glucose, Whole Blood 187 mg/dL (60-115)
[2022-01-02 11:16] VITALS: BP 155/81; PULSE 88; RESP 19; TEMP 37.1; O2SAT 95
[2022-01-02] MEDS: Insulin Lispro 100 UNIT/ML 3 ML VIAL SUBCUT (11:59)
--- NOTE | 2022-01-02 12:23 | MHC.CM.PN ---
Per ROUNDS discussion- No medical changes. Per EMR review, patient awaiting STR acceptance-broad STR search initiated. Barriers to STR: weight, suboxone use, and Covid Unvax'd. Patient working with physical therapy on improving functional mobility. Patient out of bed daily onto shuttle chair. Patient awaiting arrival of [facility] to assist with weight bearing.
[2022-01-02 16:00] VITALS: BP 136/74; PULSE 82; RESP 18; TEMP 35.8; O2SAT 98
[2022-01-02 16:46] LABS: Glucose, Whole Blood 149 mg/dL (60-115)
[2022-01-02 19:45] VITALS: BP 146/77; PULSE 90; RESP 18; TEMP 36; O2SAT 96
[2022-01-02 20:04] LABS: Glucose, Whole Blood 144 mg/dL (60-115)
[2022-01-02] MEDS: traZODone HCL 100 MG TABLET 200 MG PO (20:33)
[2022-01-02] MEDS: Insulin Glargine,Hum.rec.anlog 100 UNIT/ML 10 ML VIAL 18 UNIT SUBCUT (20:34)
[2022-01-02] MEDS: Atorvastatin Calcium 80 MG TABLET PO (20:34)
[2022-01-02 23:32] VITALS: BP 131/70; PULSE 81; RESP 17; TEMP 36.5; O2SAT 93
[2022-01-03 04:00] VITALS: BP 112/58; PULSE 80; RESP 18; TEMP 36.5; O2SAT 91
[2022-01-03] MEDS: Levothyroxine Sodium 125 MCG TABLET 250 MCG PO (05:56)
[2022-01-03] MEDS: Omeprazole 20 MG CAPSULE.DR PO ×2 (05:57→16:39)
[2022-01-03] MEDS: Heparin Sodium,Porcine 5,000 UNIT/ML VIAL 5000 UNIT SUBCUT ×3 (05:57→20:32)
[2022-01-03 07:36] VITALS: BP 134/72; PULSE 86; RESP 17; TEMP 36.3; O2SAT 93
[2022-01-03 07:46] LABS: Glucose, Whole Blood 132 mg/dL (60-115)
[2022-01-03] MEDS: Aspirin Enteric Coated 81 MG TABLET.DR PO (08:45)
[2022-01-03] MEDS: Gabapentin 600 MG TABLET PO ×3 (08:45→20:31)
[2022-01-03] MEDS: amLODIPine Besylate 5 MG TABLET PO (08:45)
[2022-01-03] MEDS: FLUoxetine HCl 20 MG CAPSULE 60 MG PO (08:46)
[2022-01-03] MEDS: Loratadine 10 MG TABLET PO (08:46)
[2022-01-03] MEDS: Buprenorphine/Naloxone 8/2 mg FILM 1 FILM SUBLINGUAL ×3 (08:46→20:31)
[2022-01-03] MEDS: Acetaminophen 325 MG TABLET 650 MG PO (08:46)
[2022-01-03] MEDS: Lidocaine 4 % Patch ADH..PATCH 1 PATCH TRANSDERMA ×2 (08:46)
--- NOTE | 2022-01-03 08:47 | HO.PM.IMPN ---
Subjective Subjective Date of Service: 01/03/22 Interval History: Seen and examined this morning Right knee sore from getting like soft wall and transitioning to chair 2 days ago Otherwise no specific complaints Review of Systems Review of Systems: Yes all other systems are reviewed and are negative Constitutional Constitutional: Denies chills and Denies fatigue Cardiovascular Cardiovascular: Denies chest pain, Denies palpitations and Denies dyspnea Respiratory Respiratory: Denies cough and Denies dyspnea Gastrointestinal Gastrointestinal: Denies abdominal pain, Denies nausea and Denies vomiting Endocrine Endocrine: Denies fatigue and Denies palpitations Physical Exam Vital Signs: Vital Signs: Last Vital Signs Temp 97.3 F 01/03/22 07:36 Pulse 86 01/03/22 07:36 Resp 17 01/03/22 07:36 BP 134/72 01/03/22 07:36 Pulse Ox 93 01/03/22 07:36 O2 Del Method 01/03/22 07:36 O2 Flow Rate 2 01/03/22 07:36 BMI result Body Mass Index 62.8 Appearing in no acute distress lung sounds are clear to auscultation heart regular rate rhythm, clear S1, S2 positive bowel sounds, abdomen is soft, nontender, obese neuro patient is alert x3, no focal deficits MSK chronic knee pain Objective Data Active Medications Acetaminophen (Acetaminophen 325 Mg Tablet) 650 mg PO Q6H PRN PRN Reason: Pain, Mild (Pain Scale 1-3) Last Admin: 01/02/22 20:38 Dose: 650 mg Documented By: DICK Albuterol Sulfate (Albuterol Sulfate 90 Mcg 8 Gm Inhaler) 2 puff INHALE Q4H PRN PRN Reason: wheezing Amlodipine Besylate (Amlodipine Besylate 5 Mg Tablet) 5 mg PO DAILY COUNT [facility]CLUDES [facility]; Protocol Last Admin: 01/02/22 08:33 Dose: 5 mg Documented By: AARON Aspirin (Aspirin Enteric Coated 81 Mg Tablet.Dr) 81 mg PO DAILY COUNT INCLUDES [facility] Last Admin: 01/02/22 08:32 Dose: 81 mg Documented By: AARON Atorvastatin Calcium (Atorvastatin Calcium 80 Mg Tablet) 80 mg PO BEDTIME COUNT INCLUDES [facility] Last Admin: 01/02/22 20:34 Dose: 80 mg Documented By: DICK Buprenorphine/Naloxone (Buprenorphine/Naloxone 8/2 Mg Film) 1 film SUBLINGUAL TID COUNT INCLUDES [facility] Last Admin: 01/02/22 20:34 Dose: 1 film Documented By: DICK Fluoxetine HCl (Fluoxetine Hcl 20 Mg Capsule) 60 mg PO DAILY COUNT INCLUDES [facility] Last Admin: 01/02/22 08:32 Dose: 60 mg Documented By: AARON Furosemide (Furosemide 40 Mg Tablet) 40 mg PO BID@0900,1800 COUNT [facility]CLUDES [facility]; Protocol Last Admin: 01/01/22 08:48 Dose: 40 mg Documented By: JOCELYNE Gabapentin (Gabapentin 600 Mg Tablet) 600 mg PO TID COUNT INCLUDES [facility] Last Admin: 01/02/22 20:34 Dose: 600 mg Documented By: DICK Heparin Sodium (Porcine) (Heparin Sodium,Porcine 5,000 Unit/Ml Vial) 5,000 unit SUBCUT Q8H COUNT INCLUDES THE [facility] Last Admin: 01/03/22 05:57 Dose: 5,000 unit Documented By: ESE Insulin Glargine (Insulin Glargine,Hum.Rec.Anlog 100 Unit/Ml 10 Ml Vial) 18 unit SUBCUT BEDTIME COUNT INCLUDES THE [facility] Last Admin: 01/02/22 20:34 Dose: 18 unit Documented By: DICK Insulin Human Lispro (Insulin Lispro 100 Unit/Ml 3 Ml Vial) 0 unit SUBCUT QIDACHS COUNT INCLUDES THE [facility]; Protocol Last Admin: 01/03/22 08:05 Dose: Not Given Documented By: AARON Non-Admin Reason: No Insulin Coverage Lactic Acid (Ammonium Lactate 12 % Lotion 226 Gm Bottle) 1 appl TOPICAL BID COUNT INCLUDES [facility]; Protocol Last Admin: 01/02/22 20:41 Dose: 1 appl Documented By: DICK Levothyroxine Sodium (Levothyroxine Sodium 125 Mcg Tablet) 250 mcg PO DAILY@0630 COUNT [facility]CLUDES [facility] Last Admin: 01/03/22 05:56 Dose: 250 mcg Documented By: ESE Lidocaine (Lidocaine 4 % Patch Adh..Patch) 1 patch TRANSDERMA DAILY COUNT INCLUDES [facility]; Protocol Last Admin: 01/01/22 09:04 Dose: 1 patch Documented By: JOCELYNE Lidocaine (Lidocaine 4 % Patch Adh..Patch) 1 patch TRANSDERMA DAILY COUNT INCLUDES [facility]; Protocol Last Admin: 01/02/22 08:36 Dose: 1 patch Documented By: AARON Lidocaine (Lidocaine 4 % Patch Adh..Patch) 1 patch TRANSDERMA DAILY COUNT INCLUDES [facility]; Protocol Last Admin: 01/02/22 08:33 Dose: 1 patch Documented By: AARON Loratadine (Loratadine 10 Mg Tablet) 10 mg PO DAILY COUNT INCLUDES [facility] Last Admin: 01/02/22 08:32 Dose: 10 mg Documented By: AARON Magnesium Hydroxide (Milk Of Magnesia 30 Ml Oral.Susp) 15 ml PO BEDTIME PRN PRN Reason: Constipation Last Admin: 11/30/21 19:34 Dose: 15 ml Documented By: ADINA Mineral Oil (Mineral Oil Enema 133 Ml Enema) 133 ml [place] ONCE PRN PRN Reason: constipation Nystatin (Nystatin Powder 15 Gm Bottle) 1 appl TOPICAL TID COUNT INCLUDES THE [facility]; Protocol Last Admin: 01/02/22 20:42 Dose: 1 appl Documented By: DICK Omeprazole (Omeprazole 20 Mg Capsule.) 20 mg PO BID@0630,1630 COUNT INCLUDES [facility] Last Admin: 01/03/22 05:57 Dose: 20 mg Documented By: ESE Ondansetron HCl (Ondansetron Hcl 4 Mg/2 Ml Vial) 4 mg IVPUSH Q8H PRN PRN Reason: Nausea and Vomiting Pharmacy Consult (Consult Rx Perform Med Rec) 1 each MISCELLANE ONCE PRN PRN Reason: Consult order Polyethylene Glycol (Polyethylene Glycol 3350 17 Gm Powd.Pack) 17 gm PO DAILY COUNT INCLUDES THE [facility] Last Admin: 01/02/22 09:17 Dose: Not Given Documented By: AARON Non-Admin Reason: Patient Refused Senna/Docusate Sodium (Sennosides/Docusate Sodium Tablet) 1 tab PO DAILY COUNT INCLUDES [facility] Last Admin: 01/02/22 09:17 Dose: Not Given Documented By: AARON Non-Admin Reason: Patient Refused Sodium Chloride (0.9 % Sodium Chloride Flush 3 Ml Syringe) 3 ml IVFLUSH QSHIFT COUNT INCLUDES THE [facility] Last Admin: 01/03/22 07:27 Dose: Not Given Documented By: AARON Non-Admin Reason: No Access Trazodone HCl (Trazodone Hcl 100 Mg Tablet) 200 mg PO BEDTIME PRN PRN Reason: Insomnia Last Admin: 01/02/22 20:33 Dose: 200 mg Documented By: DICK Labs CBC & Chem 7: 01/01/22 05:51 01/02/22 05:17 Labs: Laboratory Results - last 24 hr 08/06/2501/02/22 01/02/22 11:05 16:19 19:49 POC Glucose 187 H 149 H 144 H 01/03/22 07:35 POC Glucose 132 H Assessment and Plan (1) Physical deconditioning: Status: Acute (2) RADHIKA (acute kidney injury): Status: Acute Plan 51 yo F who presented to ED with LE swelling, was awaiting STR placement but noted to have abd swelling and found to have hydronephrosis on abd CT that turns out to be chronic with decreased R kidney function RADHIKA on CKD3 Creatinine up to 1.89 continue to hold Lasix, d/c motrin follow BNP DM2 A1c 9.2, basal/bolus insulin POCs well controlled Physical deconditioning Patient unable to ambulate or even stand up at this point from prolonged hospital stay and deconditioning Physical therapy, nursing staff are following with her with a plan to keep ambulating her and trying to get her up on her feet in order to place her to SNF or to go back home if she is able to climb the stairs.? encourage OOB to chair daily morbid obesity discussed importance of weight management as this is likely contributing to worsening of other comorbidities Constipation multiple BMs documented continue bowel regimen Right hand swelling Neg for VTE chronic LE edema/ probable chronic right-sided heart failure US negative for VTE; likely due to obesity, anemia, hypoalbuminemia, and likely R-sided HF echo showing preserved ejection fraction and elevated right atrial pressures IV furosemide changed to oral Lasix - lasix now on hold for RADHIKA chronic hypoxic resp failure likely 2/2 OHS, combined chronic COPD + asthma without acute exacerbation overall better prn albuterol 1-2 liters nc at baseline chest/shoulder pain EKG normal and hs-Tn-I normal.? origin is MSK, likely shoulder impingement; continue lidocaine patch, PT/OT R hydronephrosis/proximal ureteral dilation Urology seen- no acute therapy indicated- chronic issue.? Lasix renogram showed diminished R renal function; normal on L.? outpt Uro f/u.? renal function stable. acute/chronic normocytic anemia likely anemia of CKD, improved s/p 1u pRBCs; normal iron studies/B12/FA H/H stable UTI treated with Ceftriaxone HTN continue amlodipine HLD continue atorvastatin L knee pain APAP for arthritis pain hypothyroid TSH 20.29, increased LT4 200->250 mcg/d and repeat TSH in 6 wk mood disorder continue fluoxetine GERD PPI OUD Suboxone VTE ppx- [facility] attending -Dr. Dolan Continued hospitalization/dispo - seen by physical therapy; they recommend short-term rehab for optimal functional gains.? however, no [facility] beds are available in the state due to her weight + Suboxone use + Covid-19 unvaccinated status.? She declines Covid-19 vaccine due to taoism beliefs as a [employer]. ? CM broadening search.? PT and OT working with pt to gain ability to get up her stairs herself in which case she could go home with VNA at some point Quality Stroke Does the patient have a stroke diagnosis?: No VTE Prior VTE?: No VTE Risk Level:: Medical - moderate - high VTE Device Contraindication: Treatment Not Indicated VTE Drug Contraindication: N/A - Med Ordered
[2022-01-03] MEDS: Ammonium Lactate 12 % Lotion 226 GM BOTTLE 1 APPL TOPICAL (08:51)
[2022-01-03] MEDS: Nystatin Powder 15 GM BOTTLE 1 APPL TOPICAL ×3 (08:52→20:38)
[2022-01-03 10:16] LABS: Anion Gap 16 (12-20); Blood Urea Nitrogen 63 mg/dL (9-16); Calcium 9.1 mg/dL (8.4-10.2); Carbon Dioxide 26 mmol/L (22-29); Chloride 101 mmol/L (96-108); Creatinine Clr Calc Pharmacy 64.8; Estimated Glomerular Filt Rate 30; Glucose Random 168 mg/dL (60-115); Potassium 5.1 mmol/L (3.3-5.1); Sodium 138 mmol/L (135-145)
[2022-01-03 11:07] VITALS: BP 123/66; PULSE 81; RESP 17; TEMP 36.4; O2SAT 94
[2022-01-03 11:30] LABS: Glucose, Whole Blood 151 mg/dL (60-115)
[2022-01-03] MEDS: Insulin Lispro 100 UNIT/ML 3 ML VIAL SUBCUT ×2 (11:59→16:39)
[2022-01-03] MEDS: clonazePAM 0.5 MG TABLET PO (14:33)
[2022-01-03 15:16] VITALS: BP 129/68; PULSE 83; RESP 18; TEMP 36.3; O2SAT 90
[2022-01-03 15:54] LABS: Glucose, Whole Blood 168 mg/dL (60-115)
[2022-01-03 19:07] VITALS: BP 128/67; PULSE 86; RESP 18; TEMP 36.6; O2SAT 100
[2022-01-03 19:22] LABS: Glucose, Whole Blood 128 mg/dL (60-115)
[2022-01-03] MEDS: traZODone HCL 100 MG TABLET 200 MG PO (20:31)
[2022-01-03] MEDS: Insulin Glargine,Hum.rec.anlog 100 UNIT/ML 10 ML VIAL 18 UNIT SUBCUT (20:31)
[2022-01-03] MEDS: Atorvastatin Calcium 80 MG TABLET PO (20:31)
[2022-01-03 23:14] VITALS: BP 132/59; PULSE 79; RESP 17; TEMP 36.7; O2SAT 97
[2022-01-04 04:00] VITALS: BP 142/59; PULSE 94; RESP 17; TEMP 36.7; O2SAT 99
[2022-01-04] MEDS: Levothyroxine Sodium 125 MCG TABLET 250 MCG PO (05:59)
[2022-01-04] MEDS: Omeprazole 20 MG CAPSULE.DR PO ×2 (05:59→15:21)
[2022-01-04] MEDS: Heparin Sodium,Porcine 5,000 UNIT/ML VIAL 5000 UNIT SUBCUT ×3 (05:59→20:55)
[2022-01-04 06:37] LABS: Anion Gap 13 (12-20); Blood Urea Nitrogen 61 mg/dL (9-16); Carbon Dioxide 28 mmol/L (22-29); Chloride 103 mmol/L (96-108); Creatinine Clr Calc Pharmacy 70.2; Estimated Glomerular Filt Rate 33; Glucose Random 157 mg/dL (60-115); Sodium 139 mmol/L (135-145)
[2022-01-04 07:05] VITALS: BP 149/72; PULSE 88; RESP 20; TEMP 36.7; O2SAT 97
[2022-01-04 07:25] LABS: Glucose, Whole Blood 146 mg/dL (60-115)
[2022-01-04] MEDS: Lidocaine 4 % Patch ADH..PATCH 1 PATCH TRANSDERMA ×3 (09:17→09:18)
[2022-01-04] MEDS: Aspirin Enteric Coated 81 MG TABLET.DR PO (09:19)
[2022-01-04] MEDS: FLUoxetine HCl 20 MG CAPSULE 60 MG PO (09:19)
[2022-01-04] MEDS: Loratadine 10 MG TABLET PO (09:20)
[2022-01-04] MEDS: Buprenorphine/Naloxone 8/2 mg FILM 1 FILM SUBLINGUAL ×3 (09:20→20:54)
[2022-01-04] MEDS: clonazePAM 0.5 MG TABLET PO (09:20)
[2022-01-04] MEDS: amLODIPine Besylate 5 MG TABLET PO (09:20)
[2022-01-04] MEDS: Gabapentin 600 MG TABLET PO ×3 (09:20→20:54)
[2022-01-04] MEDS: Nystatin Powder 15 GM BOTTLE 1 APPL TOPICAL ×3 (09:23→21:02)
[2022-01-04] MEDS: Ammonium Lactate 12 % Lotion 226 GM BOTTLE 1 APPL TOPICAL ×2 (09:23→21:03)
[2022-01-04 11:16] LABS: Glucose, Whole Blood 166 mg/dL (60-115)
[2022-01-04 11:55] VITALS: BP 168/89; PULSE 85; RESP 14; TEMP 37.2; O2SAT 92
[2022-01-04] MEDS: Insulin Lispro 100 UNIT/ML 3 ML VIAL SUBCUT ×2 (12:03→16:50)
--- NOTE | 2022-01-04 14:31 | HO.PM.IMPN ---
Subjective Subjective Date of Service: 01/04/22 Interval History: Sitting comfortably, offers no acute complaints, no events overnight, tolerating diet and physical therapy. Review of Systems Review of Systems: Yes all other systems are reviewed and are negative Physical Exam Vital Signs: Vital Signs: Last Vital Signs Temp 98.9 F 01/04/22 11:55 Pulse 85 01/04/22 11:55 Resp 14 01/04/22 11:55 BP 168/89 H 01/04/22 11:55 Pulse Ox 92 01/04/22 11:55 O2 Del Method 01/04/22 11:55 O2 Flow Rate 3 01/04/22 11:55 BMI result Body Mass Index 62.8 Const: Other: Gen awake alert times 3,in no acute distress ?neck no JVD ?lung sounds are clear to auscultation ?heart regular rate rhythm, clear? S1, S2 ?positive bowel sounds, abdomen is soft, nontender ?neuro patient is alert x3, no focal deficits ?extremities no edema ? Objective Data Active Medications Acetaminophen (Acetaminophen 325 Mg Tablet) 650 mg PO Q6H PRN PRN Reason: Pain, Mild (Pain Scale 1-3) Last Admin: 01/03/22 08:46 Dose: 650 mg Documented By: AARON Albuterol Sulfate (Albuterol Sulfate 90 Mcg 8 Gm Inhaler) 2 puff INHALE Q4H PRN PRN Reason: wheezing Amlodipine Besylate (Amlodipine Besylate 5 Mg Tablet) 5 mg PO DAILY [facility]; Protocol Last Admin: 01/04/22 09:20 Dose: 5 mg Documented By: SUMAN Aspirin (Aspirin Enteric Coated 81 Mg Tablet.) 81 mg PO DAILY [facility] Last Admin: 01/04/22 09:19 Dose: 81 mg Documented By: SUMAN Atorvastatin Calcium (Atorvastatin Calcium 80 Mg Tablet) 80 mg PO BEDTIME [facility] Last Admin: 01/03/22 20:31 Dose: 80 mg Documented By: VARGAS Buprenorphine/Naloxone (Buprenorphine/Naloxone 8/2 Mg Film) 1 film SUBLINGUAL TID [facility] Last Admin: 01/04/22 09:20 Dose: 1 film Documented By: SUMAN Clonazepam (Clonazepam 0.5 Mg Tablet) 0.5 mg PO DAILY PRN PRN Reason: anxiety Last Admin: 01/04/22 09:20 Dose: 0.5 mg Documented By: SUMAN Fluoxetine HCl (Fluoxetine Hcl 20 Mg Capsule) 60 mg PO DAILY [facility] Last Admin: 01/04/22 09:19 Dose: 60 mg Documented By: SUMAN Furosemide (Furosemide 40 Mg Tablet) 40 mg PO BID@0900,1800 [facility]; Protocol Last Admin: 01/01/22 08:48 Dose: 40 mg Documented By: JOCELYNE Gabapentin (Gabapentin 600 Mg Tablet) 600 mg PO TID [facility] Last Admin: 01/04/22 09:20 Dose: 600 mg Documented By: SUMAN Heparin Sodium (Porcine) (Heparin Sodium,Porcine 5,000 Unit/Ml Vial) 5,000 unit SUBCUT Q8H [facility] Last Admin: 01/04/22 12:04 Dose: 5,000 unit Documented By: SUMAN Insulin Glargine (Insulin Glargine,Hum.Rec.Anlog 100 Unit/Ml 10 Ml Vial) 18 unit SUBCUT BEDTIME [facility] Last Admin: 01/03/22 20:31 Dose: 18 unit Documented By: VARGAS Insulin Human Lispro (Insulin Lispro 100 Unit/Ml 3 Ml Vial) 0 unit SUBCUT QIDACHS [facility]; Protocol Last Admin: 01/04/22 12:03 Dose: 2 unit Documented By: SUMAN Lactic Acid (Ammonium Lactate 12 % Lotion 226 Gm Bottle) 1 appl TOPICAL BID [facility]; Protocol Last Admin: 01/04/22 09:23 Dose: 1 appl Documented By: SUMAN Levothyroxine Sodium (Levothyroxine Sodium 125 Mcg Tablet) 250 mcg PO DAILY@0630 [facility] Last Admin: 01/04/22 05:59 Dose: 250 mcg Documented By: VARGAS Lidocaine (Lidocaine 4 % Patch Adh..Patch) 1 patch TRANSDERMA DAILY [facility]; Protocol Last Admin: 01/04/22 09:17 Dose: 1 patch Documented By: SUMAN Lidocaine (Lidocaine 4 % Patch Adh..Patch) 1 patch TRANSDERMA DAILY [facility]; Protocol Last Admin: 01/04/22 09:18 Dose: 1 patch Documented By: SUMAN Lidocaine (Lidocaine 4 % Patch Adh..Patch) 1 patch TRANSDERMA DAILY [facility]; Protocol Last Admin: 01/04/22 09:18 Dose: 1 patch Documented By: SUMAN Loratadine (Loratadine 10 Mg Tablet) 10 mg PO DAILY [facility] Last Admin: 01/04/22 09:20 Dose: 10 mg Documented By: SUMAN Magnesium Hydroxide (Milk Of Magnesia 30 Ml Oral.Susp) 15 ml PO BEDTIME PRN PRN Reason: Constipation Last Admin: 11/30/21 19:34 Dose: 15 ml Documented By: ADINA Mineral Oil (Mineral Oil Enema 133 Ml Enema) 133 ml [place] ONCE PRN PRN Reason: constipation Nystatin (Nystatin Powder 15 Gm Bottle) 1 appl TOPICAL TID [facility]; Protocol Last Admin: 01/04/22 09:23 Dose: 1 appl Documented By: SUMAN Omeprazole (Omeprazole 20 Mg Capsule.Dr) 20 mg PO BID@0630,1630 [facility] Last Admin: 01/04/22 05:59 Dose: 20 mg Documented By: VARGAS Ondansetron HCl (Ondansetron Hcl 4 Mg/2 Ml Vial) 4 mg IVPUSH Q8H PRN PRN Reason: Nausea and Vomiting Pharmacy Consult (Consult Rx Perform Med Rec) 1 each MISCELLANE ONCE PRN PRN Reason: Consult order Polyethylene Glycol (Polyethylene Glycol 3350 17 Gm Powd.Pack) 17 gm PO DAILY [facility] Last Admin: 01/04/22 09:18 Dose: Not Given Documented By: SUMAN Non-Admin Reason: Patient Refused Senna/Docusate Sodium (Sennosides/Docusate Sodium Tablet) 1 tab PO DAILY [facility] Last Admin: 01/04/22 09:23 Dose: Not Given Documented By: SUMAN Non-Admin Reason: Patient Refused Sodium Chloride (0.9 % Sodium Chloride Flush 3 Ml Syringe) 3 ml IVFLUSH QSHIFT [facility] Last Admin: 01/04/22 09:21 Dose: Not Given Documented By: SUMAN Non-Admin Reason: No Access Trazodone HCl (Trazodone Hcl 100 Mg Tablet) 200 mg PO BEDTIME PRN PRN Reason: Insomnia Last Admin: 01/03/22 20:31 Dose: 200 mg Documented By: VARGAS Labs CBC & Chem 7: 01/01/22 05:51 01/04/22 05:49 Labs: Laboratory Results - last 24 hr 01/03/22 01/03/22 01/04/22 15:18 19:12 05:49 Anion Gap 13 Estim Creat Clear Calc 70.2 Estimated GFR 33 POC Glucose 168 H 128 H Random Glucose 157 H Calcium 9.0 01/04/22 01/04/22 07:02 11:02 Anion Gap Estim Creat Clear Calc Estimated GFR POC Glucose 146 H 166 H Random Glucose Calcium Assessment and Plan (1) Physical deconditioning: Status: Acute (2) RADHIKA (acute kidney injury): Status: Acute Plan 51 yo F who presented to ED with LE swelling, was awaiting STR placement but noted to have abd swelling and found to have hydronephrosis on abd CT that turns out to be chronic with decreased R kidney function RADHIKA on CKD3 Creatinine trending down from 1.89-1.6 continue to hold Lasix, d/c motrin follow BMP DM2 Blood sugars stable around 160s, A1c 9.2, basal/bolus insulin POCs well controlled Physical deconditioning Patient unable to ambulate or even stand up at this point from prolonged hospital stay and deconditioning Physical therapy, nursing staff are following with her with a plan to keep ambulating her and trying to get her up on her feet in order to place her to SNF or to go back home if she is able to climb the stairs.? encourage OOB to chair daily morbid obesity discussed importance of weight management as this is likely contributing to worsening of other comorbidities Constipation Resolved,continue bowel regimen Right hand swelling Neg. for VTE chronic LE edema/ probable chronic right-sided heart failure US negative for VTE; likely due to obesity, anemia, hypoalbuminemia, and likely R-sided HF echo showing preserved ejection fraction and elevated right atrial pressures IV furosemide changed to oral Lasix - lasix now on hold for RADHIKA chronic hypoxic resp failure likely 2/2 OHS, combined chronic COPD + asthma without acute exacerbation overall better, prn albuterol 1-2 liters nc at baseline, currently on 3 L chest/shoulder pain EKG normal and hs-Tn-I normal.? origin is MSK, likely shoulder impingement; continue lidocaine patch, PT/OT R hydronephrosis/proximal ureteral dilation Urology seen- no acute therapy indicated- chronic issue.? Lasix renogram showed diminished R renal function; normal on L.? outpt Uro f/u.? renal function stable. acute/chronic normocytic anemia likely anemia of CKD, improved s/p 1u pRBCs; normal iron studies/B12/FA H/H stable UTI treated with Ceftriaxone HTN continue amlodipine HLD continue atorvastatin L knee pain APAP for arthritis pain hypothyroid TSH 20.29, increased LT4 200->250 mcg/d and repeat TSH in 6 wk mood disorder continue fluoxetine GERD PPI OUD Suboxone VTE ppx- [facility] Continued hospitalization/dispo - seen by physical therapy; they recommend short-term rehab for optimal functional gains.? however, no STR beds are available in the state due to her weight + Suboxone use + Covid-19 unvaccinated status.? She declines Covid-19 vaccine due to confucianist beliefs as a [employer]. ? CM broadening search.? PT and OT working with pt to gain ability to get up her stairs herself in which case she could go home with VNA at some point Quality Stroke Does the patient have a stroke diagnosis?: No VTE Prior VTE?: No VTE Risk Level:: Medical - moderate - high VTE Device Contraindication: Treatment Not Indicated VTE Drug Contraindication: N/A - Med Ordered
--- NOTE | 2022-01-04 15:35 | MHC.CM.PN ---
EMR REVIEWED, NO CHANGE IN STATUS, AWAITING BARIATRIC CANDELARIA LIFT TO BE DELIVERED, ANTIC BY END OF WEEK, CM CONT'S TO HAVE NO BED OFFERS AND REFERRAL UPDATED.
[2022-01-04 15:56] LABS: Glucose, Whole Blood 279 mg/dL (60-115)
[2022-01-04 16:00] VITALS: BP 137/74; PULSE 86; RESP 20; TEMP 36.5; O2SAT 96
[2022-01-04 20:00] VITALS: BP 142/83; PULSE 82; RESP 19; TEMP 36.2; O2SAT 95
[2022-01-04 20:08] LABS: Glucose, Whole Blood 126 mg/dL (60-115)
[2022-01-04] MEDS: Insulin Glargine,Hum.rec.anlog 100 UNIT/ML 10 ML VIAL 18 UNIT SUBCUT (20:54)
[2022-01-04] MEDS: Atorvastatin Calcium 80 MG TABLET PO (20:54)
[2022-01-04] MEDS: traZODone HCL 100 MG TABLET 200 MG PO (21:00)
[2022-01-04 23:41] VITALS: BP 124/63; PULSE 81; RESP 18; TEMP 36.2; O2SAT 94
[2022-01-05 02:49] VITALS: RESP 16
[2022-01-05] MEDS: Omeprazole 20 MG CAPSULE.DR PO ×2 (05:59→16:29)
[2022-01-05] MEDS: Levothyroxine Sodium 125 MCG TABLET 250 MCG PO (05:59)
[2022-01-05] MEDS: Heparin Sodium,Porcine 5,000 UNIT/ML VIAL 5000 UNIT SUBCUT ×3 (06:05→20:48)
[2022-01-05 06:57] VITALS: BP 138/70; PULSE 84; RESP 17; TEMP 36.3; O2SAT 92
[2022-01-05 07:22] LABS: Glucose, Whole Blood 158 mg/dL (60-115)
[2022-01-05] MEDS: Lidocaine 4 % Patch ADH..PATCH 1 PATCH TRANSDERMA ×2 (07:40→07:41)
[2022-01-05] MEDS: Insulin Lispro 100 UNIT/ML 3 ML VIAL SUBCUT ×4 (07:41→20:49)
[2022-01-05] MEDS: Buprenorphine/Naloxone 8/2 mg FILM 1 FILM SUBLINGUAL ×3 (07:41→20:48)
[2022-01-05] MEDS: Aspirin Enteric Coated 81 MG TABLET.DR PO (07:42)
[2022-01-05] MEDS: FLUoxetine HCl 20 MG CAPSULE 60 MG PO (07:42)
[2022-01-05] MEDS: Gabapentin 600 MG TABLET PO ×3 (07:42→20:48)
[2022-01-05] MEDS: clonazePAM 0.5 MG TABLET PO (07:43)
[2022-01-05] MEDS: Acetaminophen 325 MG TABLET 650 MG PO (07:43)
[2022-01-05] MEDS: amLODIPine Besylate 5 MG TABLET PO (07:43)
[2022-01-05] MEDS: Loratadine 10 MG TABLET PO (07:43)
[2022-01-05] MEDS: Nystatin Powder 15 GM BOTTLE 1 APPL TOPICAL ×3 (07:44→20:51)
[2022-01-05] MEDS: Ammonium Lactate 12 % Lotion 226 GM BOTTLE 1 APPL TOPICAL ×2 (07:44→20:51)
[2022-01-05 11:25] LABS: Glucose, Whole Blood 173 mg/dL (60-115)
[2022-01-05 11:30] VITALS: BP 139/87; PULSE 73; RESP 16; TEMP 36.3; O2SAT 94
--- NOTE | 2022-01-05 12:26 | HO.PM.IMPN ---
Subjective Subjective Date of Service: 01/05/22 Interval History: No acute complaints, tolerating diet participating with PT, no events overnight. 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 S1, S2 ?positive bowel sounds, abdomen is soft, nontender ?neuro patient is alert x3, no focal deficits ?extremities no edema ? Objective Data Active Medications Acetaminophen (Acetaminophen 325 Mg Tablet) 650 mg PO Q6H PRN PRN Reason: Pain, Mild (Pain Scale 1-3) Last Admin: 01/05/22 07:43 Dose: 650 mg Documented By: LAVERN Albuterol Sulfate (Albuterol Sulfate 90 Mcg 8 Gm Inhaler) 2 puff INHALE Q4H PRN PRN Reason: wheezing Amlodipine Besylate (Amlodipine Besylate 5 Mg Tablet) 5 mg PO DAILY [facility]; Protocol Last Admin: 01/05/22 07:43 Dose: 5 mg Documented By: LAVERN Aspirin (Aspirin Enteric Coated 81 Mg Tablet.Dr) 81 mg PO DAILY [facility] Last Admin: 01/05/22 07:42 Dose: 81 mg Documented By: LAVERN Atorvastatin Calcium (Atorvastatin Calcium 80 Mg Tablet) 80 mg PO BEDTIME [facility] Last Admin: 01/04/22 20:54 Dose: 80 mg Documented By: VARGAS Buprenorphine/Naloxone (Buprenorphine/Naloxone 8/2 Mg Film) 1 film SUBLINGUAL TID [facility] Last Admin: 01/05/22 07:41 Dose: 1 film Documented By: LAVERN Clonazepam (Clonazepam 0.5 Mg Tablet) 0.5 mg PO DAILY PRN PRN Reason: anxiety Last Admin: 01/05/22 07:43 Dose: 0.5 mg Documented By: LAVERN Fluoxetine HCl (Fluoxetine Hcl 20 Mg Capsule) 60 mg PO DAILY [facility] Last Admin: 01/05/22 07:42 Dose: 60 mg Documented By: LAVERN Furosemide (Furosemide 40 Mg Tablet) 40 mg PO BID@0900,1800 [facility]; Protocol Last Admin: 01/01/22 08:48 Dose: 40 mg Documented By: JOCELYNE Gabapentin (Gabapentin 600 Mg Tablet) 600 mg PO TID [facility] Last Admin: 01/05/22 07:42 Dose: 600 mg Documented By: LAVERN Heparin Sodium (Porcine) (Heparin Sodium,Porcine 5,000 Unit/Ml Vial) 5,000 unit SUBCUT Q8H [facility] Last Admin: 01/05/22 12:15 Dose: 5,000 unit Documented By: LAVERN Insulin Glargine (Insulin Glargine,Hum.Rec.Anlog 100 Unit/Ml 10 Ml Vial) 18 unit SUBCUT BEDTIME [facility] Last Admin: 01/04/22 20:54 Dose: 18 unit Documented By: VARGAS Insulin Human Lispro (Insulin Lispro 100 Unit/Ml 3 Ml Vial) 0 unit SUBCUT QIDACHS [facility]; Protocol Last Admin: 01/05/22 12:14 Dose: 2 unit Documented By: LAVERN Lactic Acid (Ammonium Lactate 12 % Lotion 226 Gm Bottle) 1 appl TOPICAL BID [facility]; Protocol Last Admin: 01/05/22 07:44 Dose: 1 appl Documented By: LAVERN Levothyroxine Sodium (Levothyroxine Sodium 125 Mcg Tablet) 250 mcg PO DAILY@0630 [facility] Last Admin: 01/05/22 05:59 Dose: 250 mcg Documented By: VARGAS Lidocaine (Lidocaine 4 % Patch Adh..Patch) 1 patch TRANSDERMA DAILY [facility]; Protocol Last Admin: 01/05/22 07:40 Dose: 1 patch Documented By: LAVERN Lidocaine (Lidocaine 4 % Patch Adh..Patch) 1 patch TRANSDERMA DAILY [facility]; Protocol Last Admin: 01/05/22 07:41 Dose: 1 patch Documented By: LAVERN Lidocaine (Lidocaine 4 % Patch Adh..Patch) 1 patch TRANSDERMA DAILY [facility]; Protocol Last Admin: 01/05/22 07:44 Dose: Not Given Documented By: LAVERN Non-Admin Reason: Patient Refused Loratadine (Loratadine 10 Mg Tablet) 10 mg PO DAILY [facility] Last Admin: 01/05/22 07:43 Dose: 10 mg Documented By: LAVERN Magnesium Hydroxide (Milk Of Magnesia 30 Ml Oral.Susp) 15 ml PO BEDTIME PRN PRN Reason: Constipation Last Admin: 11/30/21 19:34 Dose: 15 ml Documented By: ADINA Mineral Oil (Mineral Oil Enema 133 Ml Enema) 133 ml [place] ONCE PRN PRN Reason: constipation Nystatin (Nystatin Powder 15 Gm Bottle) 1 appl TOPICAL TID [facility]; Protocol Last Admin: 01/05/22 07:44 Dose: 1 appl Documented By: LAVERN Omeprazole (Omeprazole 20 Mg Capsule.Dr) 20 mg PO BID@0630,1630 [facility] Last Admin: 01/05/22 05:59 Dose: 20 mg Documented By: VARGAS Ondansetron HCl (Ondansetron Hcl 4 Mg/2 Ml Vial) 4 mg IVPUSH Q8H PRN PRN Reason: Nausea and Vomiting Pharmacy Consult (Consult Rx Perform Med Rec) 1 each MISCELLANE ONCE PRN PRN Reason: Consult order Polyethylene Glycol (Polyethylene Glycol 3350 17 Gm Powd.Pack) 17 gm PO DAILY [facility] Last Admin: 01/05/22 07:44 Dose: Not Given Documented By: LAVERN Non-Admin Reason: Patient Refused Senna/Docusate Sodium (Sennosides/Docusate Sodium Tablet) 1 tab PO DAILY [facility] Last Admin: 01/05/22 07:44 Dose: Not Given Documented By: LAVERN Non-Admin Reason: Patient Refused Sodium Chloride (0.9 % Sodium Chloride Flush 3 Ml Syringe) 3 ml IVFLUSH QSHIFT [facility] Last Admin: 01/05/22 07:14 Dose: Not Given Documented By: COTEMA Non-Admin Reason: No Access Trazodone HCl (Trazodone Hcl 100 Mg Tablet) 200 mg PO BEDTIME PRN PRN Reason: Insomnia Last Admin: 01/04/22 21:00 Dose: 200 mg Documented By: VARGAS Labs CBC & Chem 7: 01/01/22 05:51 01/04/22 05:49 Labs: Laboratory Results - last 24 hr 01/04/22 01/04/22 01/05/22 15:47 20:02 07:02 POC Glucose 279 H 126 H 158 H 01/05/22 11:11 POC Glucose 173 H Assessment and Plan (1) Physical deconditioning: Status: Acute (2) RADHIKA (acute kidney injury): Status: Acute Plan 51 yo F who presented to ED with LE swelling, was awaiting STR placement but noted to have abd swelling and found to have hydronephrosis on abd CT that turns out to be chronic with decreased R kidney function RADHIKA on CKD3 Creatinine trending down from 1.89-1.6 continue to hold Lasix, d/c motrin follow BMP DM2 Blood sugars stable around 160s, A1c 9.2, basal/bolus insulin POCs well controlled Physical deconditioning Patient unable to ambulate or even stand up at this point from prolonged hospital stay and deconditioning Physical therapy, nursing staff are following with her with a plan to keep ambulating her and trying to get her up on her feet in order to place her to SNF or to go back home if she is able to climb the stairs.? 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 for VTE chronic LE edema/ probable chronic right-sided heart failure US negative for VTE; likely due to obesity, anemia, hypoalbuminemia, and likely R-sided HF echo showing preserved ejection fraction and elevated right atrial pressures IV furosemide changed to oral Lasix - lasix now on hold for RADHIKA chronic hypoxic resp failure likely 2/2 OHS, combined chronic COPD + asthma without acute exacerbation overall better, prn albuterol 1-2 liters nc at baseline, currently on 3 L chest/shoulder pain EKG normal and hs-Tn-I normal.? origin is MSK, likely shoulder impingement; continue lidocaine patch, PT/OT R hydronephrosis/proximal ureteral dilation Urology seen- no acute therapy indicated- chronic issue.? Lasix renogram showed diminished R renal function; normal on L.? outpt Uro f/u.? renal function stable. acute/chronic normocytic anemia likely anemia of CKD, improved s/p 1u pRBCs; normal iron studies/B12/FA H/H stable UTI Finished course of Ceftriaxone HTN continue amlodipine HLD continue atorvastatin L knee pain APAP for arthritis pain hypothyroid TSH 20.29, increased LT4 200->250 mcg/d and repeat TSH in 6 wk mood disorder continue fluoxetine GERD PPI OUD Suboxone VTE ppx- UFH Continued hospitalization/dispo - seen by physical therapy; they recommend short-term rehab for optimal functional gains.? however, no STR beds are available in the state due to her weight + Suboxone use + Covid-19 unvaccinated status.? She declines Covid-19 vaccine due to religion beliefs as a Shinto. ? CM broadening search.? PT and OT working with pt to gain ability to get up her stairs herself in which case she could go home with VNA at some point Quality Stroke Does the patient have a stroke diagnosis?: No VTE Prior VTE?: No VTE Risk Level:: Medical - moderate - high VTE Device Contraindication: Treatment Not Indicated VTE Drug Contraindication: N/A - Med Ordered
--- NOTE | 2022-01-05 14:42 | MHC.CM.PN ---
EMR REVIEWED, PT REMAINS A STR, ACUTE REHAB AND LTAC BED SEARCH, REFERRALS UPDATED AND NO BED OFFERS AT TIME OF THIS NOTE. CM WILL CONT TO FOLLOW D/C NEEDS.
[2022-01-05 16:00] VITALS: BP 145/78; PULSE 80; RESP 18; TEMP 36.6; O2SAT 96
[2022-01-05 16:03] LABS: Glucose, Whole Blood 183 mg/dL (60-115)
[2022-01-05 19:33] LABS: Glucose, Whole Blood 157 mg/dL (60-115)
[2022-01-05 19:52] VITALS: BP 144/78; PULSE 81; RESP 20; TEMP 36.6
[2022-01-05] MEDS: Insulin Glargine,Hum.rec.anlog 100 UNIT/ML 10 ML VIAL 18 UNIT SUBCUT (20:48)
[2022-01-05] MEDS: Atorvastatin Calcium 80 MG TABLET PO (20:51)
[2022-01-05 23:29] VITALS: BP 128/66; PULSE 83; RESP 16; TEMP 36.1; O2SAT 96
[2022-01-06] VITALS (7 sets, daily range): BP systolic 139–143; BP diastolic 69–73; PULSE 78–86; RESP 16–18; TEMP 36.3–36.7; O2SAT 92–95; BMI 60.7
[2022-01-06] MEDS: Heparin Sodium,Porcine 5,000 UNIT/ML VIAL 5000 UNIT SUBCUT ×3 (06:25→21:56)
[2022-01-06] MEDS: Levothyroxine Sodium 125 MCG TABLET 250 MCG PO (06:25)
[2022-01-06] MEDS: Omeprazole 20 MG CAPSULE.DR PO ×2 (06:25→16:32)
[2022-01-06 08:04] LABS: Glucose, Whole Blood 133 mg/dL (60-115)
[2022-01-06] MEDS: Lidocaine 4 % Patch ADH..PATCH 1 PATCH TRANSDERMA ×2 (08:05→08:06)
[2022-01-06] MEDS: FLUoxetine HCl 20 MG CAPSULE 60 MG PO (08:06)
[2022-01-06] MEDS: Loratadine 10 MG TABLET PO (08:06)
[2022-01-06] MEDS: amLODIPine Besylate 5 MG TABLET PO (08:06)
[2022-01-06] MEDS: Gabapentin 600 MG TABLET PO ×3 (08:06→19:23)
[2022-01-06] MEDS: Buprenorphine/Naloxone 8/2 mg FILM 1 FILM SUBLINGUAL ×3 (08:06→19:23)
[2022-01-06] MEDS: Aspirin Enteric Coated 81 MG TABLET.DR PO (08:06)
[2022-01-06] MEDS: Nystatin Powder 15 GM BOTTLE 1 APPL TOPICAL ×3 (08:07→19:24)
[2022-01-06] MEDS: Ammonium Lactate 12 % Lotion 226 GM BOTTLE 1 APPL TOPICAL ×2 (08:07→19:23)
[2022-01-06] MEDS: clonazePAM 0.5 MG TABLET PO (08:12)
[2022-01-06] MEDS: Acetaminophen 325 MG TABLET 650 MG PO ×2 (08:12→14:52)
--- NOTE | 2022-01-06 09:37 | MHC.CM.PN ---
Addendum entered by Leanna Reyes RN 01/06/22 09:44: [facility] UPDATED ON POSSIBLE SUNDAY D/C W/NEED FOR SOC Sunday01/10/22. Original Note: CM received message from CM admin assist that [facility] called reporting they are unable to offer pt a bed. CM DID CONTACT [facility] WHO REPORTED W/PT'S WEIGHT LOSS THEY WOULD BE ABLE TO TRANSFER PT HOWEVER THEY WOULD NEED 2 CREWS AND IT WOULD LIKELY BE AN EVENING TRANSPORT AND NOT LIKELY THEY WOULD BE ABLE TO ACCOMMODATE OVER W/E, IF HOSPITALIST AGREEABLE TO SUNDAY D/C, CM WILL SET UP TRANSPORT.
--- NOTE | 2022-01-06 10:13 | HO.PM.IMPN ---
Subjective Subjective Date of Service: 01/06/22 Interval History: Offers no acute complaints, doing bed mobility exercises, tolerating diet no nausea, no vomiting, no diarrhea, no other issues overnight Review of Systems Review of Systems: Yes all other systems are reviewed and are negative Physical Exam Vital Signs: Vital Signs: Last Vital Signs Temp 98.1 F 01/06/22 07:09 Pulse 78 01/06/22 07:09 Resp 18 01/06/22 07:09 BP 139/72 01/06/22 07:09 Pulse Ox 94 01/06/22 07:09 O2 Del Method 01/06/22 07:09 O2 Flow Rate 2 01/06/22 07:09 BMI result Body Mass Index 62.8 Const: Other: Gen awake alert t imes 3,no acute di stress ?neck no JV D ?lung sounds are clear to ausculta tion ?heart regula r rate rhythm, alina ar? S1, S2 ?positi ve bowel sounds, a bdomen is soft, no ntender ?neuro pat ient is alert x3, no focal deficits ?extremities no pi tting edema ? Objective Data Active Medications Acetaminophen (Acetaminophen 325 Mg Tablet) 650 mg PO Q6H PRN PRN Reason: Pain, Mild (Pain Scale 1-3) Last Admin: 01/06/22 08:12 Dose: 650 mg Documented By: LAVERN Albuterol Sulfate (Albuterol Sulfate 90 Mcg 8 Gm Inhaler) 2 puff INHALE Q4H PRN PRN Reason: wheezing Amlodipine Besylate (Amlodipine Besylate 5 Mg Tablet) 5 mg PO DAILY [facility]; Protocol Last Admin: 01/06/22 08:06 Dose: 5 mg Documented By: LAVERN Aspirin (Aspirin Enteric Coated 81 Mg Tablet.) 81 mg PO DAILY [facility] Last Admin: 01/06/22 08:06 Dose: 81 mg Documented By: LAVERN Atorvastatin Calcium (Atorvastatin Calcium 80 Mg Tablet) 80 mg PO BEDTIME [facility] Last Admin: 01/05/22 20:51 Dose: 80 mg Documented By: CASTILYfn Buprenorphine/Naloxone (Buprenorphine/Naloxone 8/2 Mg Film) 1 film SUBLINGUAL TID [facility] Last Admin: 01/06/22 08:06 Dose: 1 film Documented By: LAVERN Clonazepam (Clonazepam 0.5 Mg Tablet) 0.5 mg PO DAILY PRN PRN Reason: anxiety Last Admin: 01/06/22 08:12 Dose: 0.5 mg Documented By: LAVERN Fluoxetine HCl (Fluoxetine Hcl 20 Mg Capsule) 60 mg PO DAILY [facility] Last Admin: 01/06/22 08:06 Dose: 60 mg Documented By: LAVERN Furosemide (Furosemide 40 Mg Tablet) 40 mg PO BID@0900,1800 [facility]; Protocol Last Admin: 01/01/22 08:48 Dose: 40 mg Documented By: JOCELYNE Gabapentin (Gabapentin 600 Mg Tablet) 600 mg PO TID [facility] Last Admin: 01/06/22 08:06 Dose: 600 mg Documented By: LAVERN Heparin Sodium (Porcine) (Heparin Sodium,Porcine 5,000 Unit/Ml Vial) 5,000 unit SUBCUT Q8H [facility] Last Admin: 01/06/22 06:25 Dose: 5,000 unit Documented By: KINGA Insulin Glargine (Insulin Glargine,Hum.Rec.Anlog 100 Unit/Ml 10 Ml Vial) 18 unit SUBCUT BEDTIME [facility] Last Admin: 01/05/22 20:48 Dose: 18 unit Documented By: KINGA Insulin Human Lispro (Insulin Lispro 100 Unit/Ml 3 Ml Vial) 0 unit SUBCUT QIDACHS [facility]; Protocol Last Admin: 01/06/22 08:08 Dose: Not Given Documented By: LAVERN Non-Admin Reason: No Insulin Coverage Lactic Acid (Ammonium Lactate 12 % Lotion 226 Gm Bottle) 1 appl TOPICAL BID [facility]; Protocol Last Admin: 01/06/22 08:07 Dose: 1 appl Documented By: LAVERN Levothyroxine Sodium (Levothyroxine Sodium 125 Mcg Tablet) 250 mcg PO DAILY@0630 [facility] Last Admin: 01/06/22 06:25 Dose: 250 mcg Documented By: KINGA Lidocaine (Lidocaine 4 % Patch Adh..Patch) 1 patch TRANSDERMA DAILY [facility]; Protocol Last Admin: 01/06/22 08:05 Dose: 1 patch Documented By: LAVERN Lidocaine (Lidocaine 4 % Patch Adh..Patch) 1 patch TRANSDERMA DAILY [facility]; Protocol Last Admin: 01/06/22 08:06 Dose: 1 patch Documented By: LAVERN Lidocaine (Lidocaine 4 % Patch Adh..Patch) 1 patch TRANSDERMA DAILY [facility]; Protocol Last Admin: 01/06/22 08:07 Dose: Not Given Documented By: LAVERN Non-Admin Reason: Patient Refused Loratadine (Loratadine 10 Mg Tablet) 10 mg PO DAILY [facility] Last Admin: 01/06/22 08:06 Dose: 10 mg Documented By: LAVERN Magnesium Hydroxide (Milk Of Magnesia 30 Ml Oral.Susp) 15 ml PO BEDTIME PRN PRN Reason: Constipation Last Admin: 11/30/21 19:34 Dose: 15 ml Documented By: ADINA Mineral Oil (Mineral Oil Enema 133 Ml Enema) 133 ml [place] ONCE PRN PRN Reason: constipation Nystatin (Nystatin Powder 15 Gm Bottle) 1 appl TOPICAL TID [facility]; Protocol Last Admin: 01/06/22 08:07 Dose: 1 appl Documented By: LAVERN Omeprazole (Omeprazole 20 Mg Capsule.Dr) 20 mg PO BID@0630,1630 [facility] Last Admin: 01/06/22 06:25 Dose: 20 mg Documented By: CASTILYfn Ondansetron HCl (Ondansetron Hcl 4 Mg/2 Ml Vial) 4 mg IVPUSH Q8H PRN PRN Reason: Nausea and Vomiting Pharmacy Consult (Consult Rx Perform Med Rec) 1 each MISCELLANE ONCE PRN PRN Reason: Consult order Polyethylene Glycol (Polyethylene Glycol 3350 17 Gm Powd.Pack) 17 gm PO DAILY [facility] Last Admin: 01/06/22 08:07 Dose: Not Given Documented By: LAVERN Non-Admin Reason: Patient Refused Senna/Docusate Sodium (Sennosides/Docusate Sodium Tablet) 1 tab PO DAILY [facility] Last Admin: 01/06/22 08:07 Dose: Not Given Documented By: LAVERN Non-Admin Reason: Patient Refused Sodium Chloride (0.9 % Sodium Chloride Flush 3 Ml Syringe) 3 ml IVFLUSH QSHIFT [facility] Last Admin: 01/06/22 07:03 Dose: Not Given Documented By: LAVERN Non-Admin Reason: No Access Trazodone HCl (Trazodone Hcl 100 Mg Tablet) 200 mg PO BEDTIME PRN PRN Reason: Insomnia Last Admin: 01/04/22 21:00 Dose: 200 mg Documented By: VARGAS Labs CBC & Chem 7: 01/01/22 05:51 01/06/22 10:34 Labs: Laboratory Results - last 24 hr 01/05/22 01/05/22 01/05/22 11:11 15:23 19:19 POC Glucose 173 H 183 H 157 H 01/06/22 07:06 POC Glucose 133 H Assessment and Plan (1) Physical deconditioning: Status: Acute (2) RADHIKA (acute kidney injury): Status: Acute Plan 51 yo F who presented to ED with LE swelling, was awaiting STR placement but noted to have abd swelling and found to have hydronephrosis on abd CT that turns out to be chronic with decreased R kidney function RADHIKA on CKD3 Likely pre renal, continue to hold Lasix avoid NSAIDs, Patient asymptomatic, blood pressure is stable, Creatinine trending down from 1.89-1.5 Follow BMP next week DM2 Blood sugars stable around 160s, A1c 9.2, basal/bolus insulin POCs well controlled Physical deconditioning Patient unable to ambulate or even stand up at this point from prolonged hospital stay and deconditioning Physical therapy, nursing staff are following with her with a plan to keep ambulating her and trying to get her up on her feet in order to place her to SNF or to go back home if she is able to climb the stairs.? 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 for VTE chronic LE edema/ probable chronic right-sided heart failure US negative for VTE; likely due to obesity, anemia, hypoalbuminemia, and likely R-sided HF echo showing preserved ejection fraction and elevated right atrial pressures IV furosemide changed to oral Lasix - lasix now on hold for RADHIKA chronic hypoxic resp failure likely 2/2 OHS, combined chronic COPD + asthma without acute exacerbation overall better, prn albuterol 1-2 liters nc at baseline, currently on 3 L chest/shoulder pain EKG normal and hs-Tn-I normal.? origin is MSK, likely shoulder impingement; continue lidocaine patch, PT/OT R hydronephrosis/proximal ureteral dilation Urology seen- no acute therapy indicated- chronic issue.? Lasix renogram showed diminished R renal function; normal on L.? outpt Uro f/u.? renal function stable. acute/chronic normocytic anemia likely anemia of CKD, improved s/p 1u pRBCs; normal iron studies/B12/FA H/H stable UTI Finished course of Ceftriaxone HTN continue amlodipine HLD continue atorvastatin L knee pain APAP for arthritis pain hypothyroid TSH 20.29, increased LT4 200->250 mcg/d and repeat TSH in 6 wk mood disorder continue fluoxetine GERD PPI OUD Suboxone VTE ppx- UFH Continued hospitalization/dispo - seen by physical therapy; they recommend short-term rehab for optimal functional gains.? however, no STR beds are available in the state due to her weight + Suboxone use + Covid-19 unvaccinated status.? She declines Covid-19 vaccine due to protestant beliefs as a Zoroastrian. ? CM broadening search.? PT and OT working with pt to gain ability to get up her stairs herself in which case she could go home with VNA at some point Quality Stroke Does the patient have a stroke diagnosis?: No VTE Prior VTE?: No VTE Risk Level:: Medical - moderate - high VTE Device Contraindication: Treatment Not Indicated VTE Drug Contraindication: N/A - Med Ordered
--- NOTE | 2022-01-06 10:45 | MHC.CLN ---
F/U WEIGHT HX: 01/06=176 KG; 12/2704=356 AND 180 KG; 12/2311=811.5 KG; 12/2122=668.5 KG; 12/07=183 KG; 11/08=226.796 KG. WEIGHT LOSS SINCE ADMISSION=-51 KG, 22%. WEIGHT LOSS FAVORABLE AND DESIRABLE. DIET=DIABETIC 1800 KCALS, 2 GRAM SODIUM. USUALLY EATS 100% AT MEALS AND HAS DIABETIC SNACK. CONTINUE CURRENT DIET AND FOLLOW WEEKLY FOR WEIGHT LOSS PROGRESS.
[2022-01-06 11:01] LABS: Glucose, Whole Blood 170 mg/dL (60-115)
[2022-01-06 11:11] LABS: Anion Gap 13 (12-20); Blood Urea Nitrogen 55 mg/dL (9-16); Calcium 9.1 mg/dL (8.4-10.2); Carbon Dioxide 27 mmol/L (22-29); Chloride 102 mmol/L (96-108); Estimated Glomerular Filt Rate 36; Glucose Random 180 mg/dL (60-115); Sodium 137 mmol/L (135-145)
[2022-01-06] MEDS: Insulin Lispro 100 UNIT/ML 3 ML VIAL SUBCUT ×2 (11:42→16:32)
--- NOTE | 2022-01-06 15:24 | MHC.CM.PN ---
CM APPROACHED BY PT'S BF/BENCH MANAGER WHO VOICED CONCERNS ABOUT PT GOING HOME HE REPORTS, SHE'LL JUST GO BACK TO HER [place] AND NOT GET OUT OF BED, PT'S BF ALSO MENTIONED THEY HAVE BEEN TRYING TO MOVE TO THE FIRST FLOOR SINCE GETTING THE APARTMENT 3YRS AGO W/AGREEMENT TO MOVE ONCE A FIRST FL APT OPENED UP AND THEN REPORTS THEY'RE HEALTH TSO MAY NEED TO TAKE LEGAL ACTION TO MAKE THAT HAPPEN, BF ASKS CM ABOUT LTC FOR PT HOWEVER CM MADE BF AWARE PT WOULD HAVE TO BE AGREEABLE AND CURRENTLY IS DECLINING LTC. SNF, LTAC AND [place] BED SEARCH IN PROGRESS, NO BED OFFERS AT [place] OF THIS NOTE. PER [facility] THEY WILL NOW BE ABLE TO TRANSPORT PT [place] APT SHE HAS LOST A SIGNIFICANT AMT OF WEIGHT. CM WILL FOLLOW UP W/POSSIBLE PLAN FOR HOME W/[facility] TO DO SOC Sunday01/10/22.
[2022-01-06 16:17] LABS: Glucose, Whole Blood 194 mg/dL (60-115)
[2022-01-06] MEDS: Atorvastatin Calcium 80 MG TABLET PO (19:23)
[2022-01-06] MEDS: traZODone HCL 100 MG TABLET 200 MG PO (19:23)
[2022-01-06 20:42] LABS: Glucose, Whole Blood 129 mg/dL (60-115)
[2022-01-06] MEDS: Insulin Glargine,Hum.rec.anlog 100 UNIT/ML 10 ML VIAL 18 UNIT SUBCUT (21:56)
[2022-01-07 03:01] VITALS: RESP 16
[2022-01-07] MEDS: Heparin Sodium,Porcine 5,000 UNIT/ML VIAL 5000 UNIT SUBCUT ×3 (06:02→20:53)
[2022-01-07] MEDS: Levothyroxine Sodium 125 MCG TABLET 250 MCG PO (06:02)
[2022-01-07] MEDS: Omeprazole 20 MG CAPSULE.DR PO ×2 (06:02→17:20)
[2022-01-07 07:29] LABS: Glucose, Whole Blood 143 mg/dL (60-115)
[2022-01-07 07:31] VITALS: BP 122/64; PULSE 77; RESP 18; TEMP 36.2; O2SAT 94
[2022-01-07] MEDS: FLUoxetine HCl 20 MG CAPSULE 60 MG PO (08:32)
[2022-01-07] MEDS: Acetaminophen 325 MG TABLET 650 MG PO (08:32)
[2022-01-07] MEDS: Aspirin Enteric Coated 81 MG TABLET.DR PO (08:33)
[2022-01-07] MEDS: Gabapentin 600 MG TABLET PO ×3 (08:33→20:53)
[2022-01-07] MEDS: Loratadine 10 MG TABLET PO (08:33)
[2022-01-07] MEDS: amLODIPine Besylate 5 MG TABLET PO (08:33)
[2022-01-07] MEDS: Lidocaine 4 % Patch ADH..PATCH 1 PATCH TRANSDERMA ×2 (08:33)
[2022-01-07] MEDS: clonazePAM 0.5 MG TABLET PO (08:33)
[2022-01-07] MEDS: Nystatin Powder 15 GM BOTTLE 1 APPL TOPICAL ×3 (08:34→21:01)
[2022-01-07] MEDS: Ammonium Lactate 12 % Lotion 226 GM BOTTLE 1 APPL TOPICAL ×2 (08:34→21:01)
[2022-01-07] MEDS: Buprenorphine/Naloxone 8/2 mg FILM 1 FILM SUBLINGUAL ×3 (08:34→20:53)
[2022-01-07 11:33] VITALS: BP 136/65; PULSE 77; RESP 18; TEMP 36.3; O2SAT 96
[2022-01-07 11:34] LABS: Glucose, Whole Blood 139 mg/dL (60-115)
--- NOTE | 2022-01-07 13:57 | HO.PM.IMPN ---
Subjective Subjective Date of Service: 01/07/22 Interval History: Sitting comfortably, offers no acute complaints no acute events overnight. 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 S1, S2 ?positive bowel sounds, abdomen is soft, nontender ?neuro patient is alert x3, no focal deficits ?extremities no edema Objective Data Active Medications Acetaminophen (Acetaminophen 325 Mg Tablet) 650 mg PO Q6H PRN PRN Reason: Pain, Mild (Pain Scale 1-3) Last Admin: 01/07/22 08:32 Dose: 650 mg Documented By: AARON Albuterol Sulfate (Albuterol Sulfate 90 Mcg 8 Gm Inhaler) 2 puff INHALE Q4H PRN PRN Reason: wheezing Amlodipine Besylate (Amlodipine Besylate 5 Mg Tablet) 5 mg PO DAILY [facility]; Protocol Last Admin: 01/07/22 08:33 Dose: 5 mg Documented By: AARON Aspirin (Aspirin Enteric Coated 81 Mg Tablet.Dr) 81 mg PO DAILY [facility] Last Admin: 01/07/22 08:33 Dose: 81 mg Documented By: AARON Atorvastatin Calcium (Atorvastatin Calcium 80 Mg Tablet) 80 mg PO BEDTIME [facility] Last Admin: 01/06/22 19:23 Dose: 80 mg Documented By: KINGA Buprenorphine/Naloxone (Buprenorphine/Naloxone 8/2 Mg Film) 1 film SUBLINGUAL TID [facility] Last Admin: 01/07/22 08:34 Dose: 1 film Documented By: AARON Clonazepam (Clonazepam 0.5 Mg Tablet) 0.5 mg PO DAILY PRN PRN Reason: anxiety Last Admin: 01/07/22 08:33 Dose: 0.5 mg Documented By: AARON Fluoxetine HCl (Fluoxetine Hcl 20 Mg Capsule) 60 mg PO DAILY [facility] Last Admin: 01/07/22 08:32 Dose: 60 mg Documented By: AARON Gabapentin (Gabapentin 600 Mg Tablet) 600 mg PO TID [facility] Last Admin: 01/07/22 08:33 Dose: 600 mg Documented By: AARON Heparin Sodium (Porcine) (Heparin Sodium,Porcine 5,000 Unit/Ml Vial) 5,000 unit SUBCUT Q8H [facility] Last Admin: 01/07/22 06:02 Dose: 5,000 unit Documented By: KINGA Insulin Glargine (Insulin Glargine,Hum.Rec.Anlog 100 Unit/Ml 10 Ml Vial) 18 unit SUBCUT BEDTIME [facility] Last Admin: 01/06/22 21:56 Dose: 18 unit Documented By: KINGA Insulin Human Lispro (Insulin Lispro 100 Unit/Ml 3 Ml Vial) 0 unit SUBCUT QIDACHS [facility]; Protocol Last Admin: 01/07/22 12:01 Dose: Not Given Documented By: AARON Non-Admin Reason: No Insulin Coverage Lactic Acid (Ammonium Lactate 12 % Lotion 226 Gm Bottle) 1 appl TOPICAL BID [facility]; Protocol Last Admin: 01/07/22 08:34 Dose: 1 appl Documented By: AARON Levothyroxine Sodium (Levothyroxine Sodium 125 Mcg Tablet) 250 mcg PO DAILY@0630 [facility] Last Admin: 01/07/22 06:02 Dose: 250 mcg Documented By: KINGA Lidocaine (Lidocaine 4 % Patch Adh..Patch) 1 patch TRANSDERMA DAILY [facility]; Protocol Last Admin: 01/07/22 08:33 Dose: 1 patch Documented By: AARON Lidocaine (Lidocaine 4 % Patch Adh..Patch) 1 patch TRANSDERMA DAILY [facility]; Protocol Last Admin: 01/07/22 08:38 Dose: Not Given Documented By: AARON Non-Admin Reason: Patient Refused Lidocaine (Lidocaine 4 % Patch Adh..Patch) 1 patch TRANSDERMA DAILY [facility]; Protocol Last Admin: 01/07/22 08:33 Dose: 1 patch Documented By: AARON Loratadine (Loratadine 10 Mg Tablet) 10 mg PO DAILY [facility] Last Admin: 01/07/22 08:33 Dose: 10 mg Documented By: AARON Magnesium Hydroxide (Milk Of Magnesia 30 Ml Oral.Susp) 15 ml PO BEDTIME PRN PRN Reason: Constipation Last Admin: 11/30/21 19:34 Dose: 15 ml Documented By: ADINA Mineral Oil (Mineral Oil Enema 133 Ml Enema) 133 ml [place] ONCE PRN PRN Reason: constipation Nystatin (Nystatin Powder 15 Gm Bottle) 1 appl TOPICAL TID [facility]; Protocol Last Admin: 01/07/22 08:34 Dose: 1 appl Documented By: AARON Omeprazole (Omeprazole 20 Mg Capsule.) 20 mg PO BID@0630,1630 [facility] Last Admin: 01/07/22 06:02 Dose: 20 mg Documented By: KINGA Ondansetron HCl (Ondansetron Hcl 4 Mg/2 Ml Vial) 4 mg IVPUSH Q8H PRN PRN Reason: Nausea and Vomiting Pharmacy Consult (Consult Rx Perform Med Rec) 1 each MISCELLANE ONCE PRN PRN Reason: Consult order Polyethylene Glycol (Polyethylene Glycol 3350 17 Gm Powd.Pack) 17 gm PO DAILY [facility] Last Admin: 01/07/22 08:38 Dose: Not Given Documented By: AARON Non-Admin Reason: Patient Refused Senna/Docusate Sodium (Sennosides/Docusate Sodium Tablet) 1 tab PO DAILY [facility] Last Admin: 01/07/22 08:38 Dose: Not Given Documented By: AARON Non-Admin Reason: Patient Refused Sodium Chloride (0.9 % Sodium Chloride Flush 3 Ml Syringe) 3 ml IVFLUSH QSHIFT [facility] Last Admin: 01/07/22 08:21 Dose: Not Given Documented By: AARON Non-Admin Reason: IV Running Trazodone HCl (Trazodone Hcl 100 Mg Tablet) 200 mg PO BEDTIME PRN PRN Reason: Insomnia Last Admin: 01/06/22 19:23 Dose: 200 mg Documented By: KINGA Labs CBC & Chem 7: 01/01/22 05:51 01/06/22 10:34 Labs: Laboratory Results - last 24 hr 01/06/22 01/06/22 01/07/22 15:33 20:34 07:18 POC Glucose 194 H 129 H 143 H 01/07/22 11:26 POC Glucose 139 H Assessment and Plan (1) Physical deconditioning: Status: Acute (2) RADHIKA (acute kidney injury): Status: Acute Plan 51 yo F who presented to ED with LE swelling, was awaiting STR placement but noted to have abd swelling and found to have hydronephrosis on abd CT that turns out to be chronic with decreased R kidney function RADHIKA on CKD3 Likely pre renal, continue to hold Lasix avoid NSAIDs, Patient asymptomatic, blood pressure is stable, Creatinine trending down from 1.89-1.5 Follow BMP next week DM2 Blood sugars stable , A1c 9.2,cont. basal/bolus insulin POCs well controlled Physical deconditioning Patient unable to ambulate or even stand up at this point from prolonged hospital stay and deconditioning Physical therapy, nursing staff are following with her with a plan to keep ambulating her and trying to get her up on her feet in order to place her to SNF or to go back home if she is able to climb the stairs.? encourage OOB to chair daily procedure manager ordered Bariatric larry lift to be delivered at end of this week to help getting up out of bed morbid obesity discussed importance of weight management as this is likely contributing to worsening of other comorbidities Constipation Resolved,continue bowel regimen Right hand swelling Neg. for VTE chronic LE edema/ probable chronic right-sided heart failure US negative for VTE; likely due to obesity, anemia, hypoalbuminemia, and likely R-sided HF echo showing preserved ejection fraction and elevated right atrial pressures IV furosemide changed to oral Lasix - lasix now on hold for RADHIKA chronic hypoxic resp failure likely 2/2 OHS, combined chronic COPD + asthma without acute exacerbation overall better, prn albuterol 1-2 liters nc at baseline, currently on 3 L chest/shoulder pain EKG normal and hs-Tn-I normal.? origin is MSK, likely shoulder impingement; continue lidocaine patch, PT/OT R hydronephrosis/proximal ureteral dilation Urology seen- no acute therapy indicated- chronic issue.? Lasix renogram showed diminished R renal function; normal on L.? outpt Uro f/u.? renal function stable. acute/chronic normocytic anemia likely anemia of CKD, improved s/p 1u pRBCs; normal iron studies/B12/FA H/H stable UTI Finished course of Ceftriaxone HTN continue amlodipine HLD continue atorvastatin L knee pain APAP for arthritis pain hypothyroid TSH 20.29, increased LT4 200->250 mcg/d and repeat TSH in 6 wk mood disorder continue fluoxetine GERD PPI OUD Suboxone VTE ppx- UFH Continued hospitalization/dispo - seen by physical therapy; they recommend short-term rehab for optimal functional gains.? however, no STR beds are available in the state due to her weight + Suboxone use + Covid-19 unvaccinated status.? She declines Covid-19 vaccine due to temple beliefs as a [employer]ai. ? CM broadening search.? PT and OT working with pt to gain ability to get up her stairs herself in which case she could go home with VNA at some point Quality Stroke Does the patient have a stroke diagnosis?: No VTE Prior VTE?: No VTE Risk Level:: Medical - moderate - high VTE Device Contraindication: Treatment Not Indicated VTE Drug Contraindication: N/A - Med Ordered
[2022-01-07 16:00] VITALS: BP 168/62; PULSE 78; RESP 20; TEMP 36.8; O2SAT 97
[2022-01-07 17:15] LABS: Glucose, Whole Blood 161 mg/dL (60-115)
[2022-01-07] MEDS: Insulin Lispro 100 UNIT/ML 3 ML VIAL SUBCUT (17:20)
[2022-01-07 19:25] VITALS: BP 144/68; PULSE 84; RESP 16; TEMP 36.2; O2SAT 91
[2022-01-07 20:10] LABS: Glucose, Whole Blood 146 mg/dL (60-115)
[2022-01-07] MEDS: Atorvastatin Calcium 80 MG TABLET PO (20:53)
[2022-01-07] MEDS: Insulin Glargine,Hum.rec.anlog 100 UNIT/ML 10 ML VIAL 18 UNIT SUBCUT (20:53)
[2022-01-07] MEDS: traZODone HCL 100 MG TABLET 200 MG PO (20:53)
[2022-01-08] VITALS (7 sets, daily range): BP systolic 134–149; BP diastolic 65–76; PULSE 78–88; RESP 16–18; TEMP 35.9–36.6; O2SAT 90–94
[2022-01-08] MEDS: Levothyroxine Sodium 125 MCG TABLET 250 MCG PO (05:54)
[2022-01-08] MEDS: Heparin Sodium,Porcine 5,000 UNIT/ML VIAL 5000 UNIT SUBCUT ×3 (05:54→21:37)
[2022-01-08] MEDS: Omeprazole 20 MG CAPSULE.DR PO ×2 (05:55→17:26)
[2022-01-08 07:37] LABS: Glucose, Whole Blood 142 mg/dL (60-115)
[2022-01-08] MEDS: Buprenorphine/Naloxone 8/2 mg FILM 1 FILM SUBLINGUAL ×3 (08:34→21:36)
[2022-01-08] MEDS: Lidocaine 4 % Patch ADH..PATCH 1 PATCH TRANSDERMA ×2 (08:34)
[2022-01-08] MEDS: FLUoxetine HCl 20 MG CAPSULE 60 MG PO (08:34)
[2022-01-08] MEDS: clonazePAM 0.5 MG TABLET PO (08:34)
[2022-01-08] MEDS: amLODIPine Besylate 5 MG TABLET PO (08:35)
[2022-01-08] MEDS: Gabapentin 600 MG TABLET PO ×3 (08:35→21:36)
[2022-01-08] MEDS: Loratadine 10 MG TABLET PO (08:35)
[2022-01-08] MEDS: Acetaminophen 325 MG TABLET 650 MG PO ×2 (08:35→17:28)
[2022-01-08] MEDS: Aspirin Enteric Coated 81 MG TABLET.DR PO (08:35)
[2022-01-08] MEDS: Ammonium Lactate 12 % Lotion 226 GM BOTTLE 1 APPL TOPICAL ×2 (08:41→21:36)
[2022-01-08] MEDS: Nystatin Powder 15 GM BOTTLE 1 APPL TOPICAL ×3 (08:42→21:37)
--- NOTE | 2022-01-08 11:04 | HO.PM.IMPN ---
Subjective Subjective Date of Service: 01/08/22 Interval History: Offers no acute complaints this morning denies nausea vomiting tolerating diet no cough, no shortness of breath. No acute events overnight. 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 S1, S2 ?posi tive bowel sounds, abdomen is soft, nontender ?neuro p atient is alert x3 , no focal deficit s ?extremities no edema Objective Data Active Medications Acetaminophen (Acetaminophen 325 Mg Tablet) 650 mg PO Q6H PRN PRN Reason: Pain, Mild (Pain Scale 1-3) Last Admin: 01/08/22 08:35 Dose: 650 mg Documented By: AARON Albuterol Sulfate (Albuterol Sulfate 90 Mcg 8 Gm Inhaler) 2 puff INHALE Q4H PRN PRN Reason: wheezing Amlodipine Besylate (Amlodipine Besylate 5 Mg Tablet) 5 mg PO DAILY [facility]; Protocol Last Admin: 01/08/22 08:35 Dose: 5 mg Documented By: AARON Aspirin (Aspirin Enteric Coated 81 Mg Tablet.) 81 mg PO DAILY [facility] Last Admin: 01/08/22 08:35 Dose: 81 mg Documented By: AARON Atorvastatin Calcium (Atorvastatin Calcium 80 Mg Tablet) 80 mg PO BEDTIME [facility] Last Admin: 01/07/22 20:53 Dose: 80 mg Documented By: ADINA Buprenorphine/Naloxone (Buprenorphine/Naloxone 8/2 Mg Film) 1 film SUBLINGUAL TID [facility] Last Admin: 01/08/22 08:34 Dose: 1 film Documented By: AARON Clonazepam (Clonazepam 0.5 Mg Tablet) 0.5 mg PO DAILY PRN PRN Reason: anxiety Last Admin: 01/08/22 08:34 Dose: 0.5 mg Documented By: AARON Fluoxetine HCl (Fluoxetine Hcl 20 Mg Capsule) 60 mg PO DAILY [facility] Last Admin: 01/08/22 08:34 Dose: 60 mg Documented By: AARON Gabapentin (Gabapentin 600 Mg Tablet) 600 mg PO TID [facility] Last Admin: 01/08/22 08:35 Dose: 600 mg Documented By: AARON Heparin Sodium (Porcine) (Heparin Sodium,Porcine 5,000 Unit/Ml Vial) 5,000 unit SUBCUT Q8H [facility] Last Admin: 01/08/22 05:54 Dose: 5,000 unit Documented By: ADINA Insulin Glargine (Insulin Glargine,Hum.Rec.Anlog 100 Unit/Ml 10 Ml Vial) 18 unit SUBCUT BEDTIME [facility] Last Admin: 01/07/22 20:53 Dose: 18 unit Documented By: ADINA Insulin Human Lispro (Insulin Lispro 100 Unit/Ml 3 Ml Vial) 0 unit SUBCUT QIDACHS [facility]; Protocol Last Admin: 01/08/22 07:45 Dose: Not Given Documented By: AARON Non-Admin Reason: No Insulin Coverage Lactic Acid (Ammonium Lactate 12 % Lotion 226 Gm Bottle) 1 appl TOPICAL BID [facility]; Protocol Last Admin: 01/08/22 08:41 Dose: 1 appl Documented By: AARON Levothyroxine Sodium (Levothyroxine Sodium 125 Mcg Tablet) 250 mcg PO DAILY@0630 [facility] Last Admin: 01/08/22 05:54 Dose: 250 mcg Documented By: ADINA Lidocaine (Lidocaine 4 % Patch Adh..Patch) 1 patch TRANSDERMA DAILY [facility]; Protocol Last Admin: 01/08/22 08:34 Dose: 1 patch Documented By: AARON Lidocaine (Lidocaine 4 % Patch Adh..Patch) 1 patch TRANSDERMA DAILY [facility]; Protocol Last Admin: 01/08/22 08:52 Dose: Not Given Documented By: AARON Non-Admin Reason: Patient Refused Lidocaine (Lidocaine 4 % Patch Adh..Patch) 1 patch TRANSDERMA DAILY [facility]; Protocol Last Admin: 01/08/22 08:34 Dose: 1 patch Documented By: AARON Loratadine (Loratadine 10 Mg Tablet) 10 mg PO DAILY [facility] Last Admin: 01/08/22 08:35 Dose: 10 mg Documented By: AARON Magnesium Hydroxide (Milk Of Magnesia 30 Ml Oral.Susp) 15 ml PO BEDTIME PRN PRN Reason: Constipation Last Admin: 11/30/21 19:34 Dose: 15 ml Documented By: ADINA Mineral Oil (Mineral Oil Enema 133 Ml Enema) 133 ml AL ONCE PRN PRN Reason: constipation Nystatin (Nystatin Powder 15 Gm Bottle) 1 appl TOPICAL TID [facility]; Protocol Last Admin: 01/08/22 08:42 Dose: 1 appl Documented By: AARON Omeprazole (Omeprazole 20 Mg Capsule.Dr) 20 mg PO BID@0630,1630 [facility] Last Admin: 01/08/22 05:55 Dose: 20 mg Documented By: ADINA Ondansetron HCl (Ondansetron Hcl 4 Mg/2 Ml Vial) 4 mg IVPUSH Q8H PRN PRN Reason: Nausea and Vomiting Pharmacy Consult (Consult Rx Perform Med Rec) 1 each MISCELLANE ONCE PRN PRN Reason: Consult order Polyethylene Glycol (Polyethylene Glycol 3350 17 Gm Powd.Pack) 17 gm PO DAILY [facility] Last Admin: 01/08/22 08:52 Dose: Not Given Documented By: AARON Non-Admin Reason: Patient Refused Senna/Docusate Sodium (Sennosides/Docusate Sodium Tablet) 1 tab PO DAILY [facility] Last Admin: 01/08/22 08:52 Dose: Not Given Documented By: AARON Non-Admin Reason: Patient Refused Sodium Chloride (0.9 % Sodium Chloride Flush 3 Ml Syringe) 3 ml IVFLUSH QSHIFT [facility] Last Admin: 01/08/22 07:22 Dose: Not Given Documented By: AARON Non-Admin Reason: No Access Trazodone HCl (Trazodone Hcl 100 Mg Tablet) 200 mg PO BEDTIME PRN PRN Reason: Insomnia Last Admin: 01/07/22 20:53 Dose: 200 mg Documented By: ADINA Labs CBC & Chem 7: 01/01/22 05:51 01/06/22 10:34 Labs: Laboratory Results - last 24 hr 01/07/22 01/07/22 01/07/22 11:26 17:04 19:29 POC Glucose 139 H 161 H 146 H 01/08/22 07:24 POC Glucose 142 H Assessment and Plan (1) Physical deconditioning: Status: Acute (2) RADHKIA (acute kidney injury): Status: Acute Plan 51 yo F who presented to ED with LE swelling, was awaiting STR placement but noted to have abd swelling and found to have hydronephrosis on abd CT that turns out to be chronic with decreased R kidney function RADHIKA on CKD3 Likely pre renal, continue to hold Lasix avoid NSAIDs, Patient asymptomatic, blood pressure is stable, Creatinine trending down from 1.89-1.5 Follow BMP at a.m. DM2 Blood sugars stable , A1c 9.2,cont. basal/bolus insulin POCs well controlled Physical deconditioning Patient unable to ambulate or even stand up at this point from prolonged hospital stay and deconditioning Physical therapy, nursing staff are following with her with a plan to keep ambulating her and trying to get her up on her feet in order to place her to SNF or to go back home if she is able to climb the stairs.? encourage OOB to chair daily manager tax ordered Bariatric larry lift to be delivered at end of this week to help getting up out of bed morbid obesity discussed importance of weight management as this is likely contributing to worsening of other comorbidities Constipation Resolved,continue bowel regimen Right hand swelling Neg. for VTE chronic LE edema/ probable chronic right-sided heart failure US negative for VTE; likely due to obesity, anemia, hypoalbuminemia, and likely R-sided HF echo showing preserved ejection fraction and elevated right atrial pressures IV furosemide changed to oral Lasix - lasix now on hold for RADHIKA chronic hypoxic resp failure likely 2/2 OHS, combined chronic COPD + asthma without acute exacerbation overall better, prn albuterol 1-2 liters nc at baseline, currently on 3 L chest/shoulder pain EKG normal and hs-Tn-I normal.? origin is MSK, likely shoulder impingement; continue lidocaine patch, PT/OT R hydronephrosis/proximal ureteral dilation Urology seen- no acute therapy indicated- chronic issue.? Lasix renogram showed diminished R renal function; normal on L.? outpt Uro f/u.? renal function stable. acute/chronic normocytic anemia likely anemia of CKD, improved s/p 1u pRBCs; normal iron studies/B12/FA H/H stable UTI Finished course of Ceftriaxone HTN continue amlodipine, stable BP HLD continue atorvastatin L knee pain APAP for arthritis pain hypothyroid TSH 20.29, increased LT4 200->250 mcg/d and repeat TSH in 6 wk mood disorder continue fluoxetine GERD PPI OUD Suboxone VTE ppx- UFH Continued hospitalization/dispo - seen by physical therapy; they recommend short-term rehab for optimal functional gains.? however, no STR beds are available in the state due to her weight + Suboxone use + Covid-19 unvaccinated status.? She declines Covid-19 vaccine due to orthodox beliefs as a [employer]. ? CM broadening search.? PT and OT working with pt to gain ability to get up her stairs herself in which case she could go home with VNA at some point Quality Stroke Does the patient have a stroke diagnosis?: No VTE Prior VTE?: No VTE Risk Level:: Medical - moderate - high VTE Device Contraindication: Treatment Not Indicated VTE Drug Contraindication: N/A - Med Ordered
[2022-01-08 11:35] LABS: Glucose, Whole Blood 149 mg/dL (60-115)
[2022-01-08 16:40] LABS: Glucose, Whole Blood 139 mg/dL (60-115)
[2022-01-08 20:17] LABS: Glucose, Whole Blood 175 mg/dL (60-115)
[2022-01-08] MEDS: Atorvastatin Calcium 80 MG TABLET PO (21:36)
[2022-01-08] MEDS: Insulin Glargine,Hum.rec.anlog 100 UNIT/ML 10 ML VIAL 18 UNIT SUBCUT (21:36)
[2022-01-08] MEDS: traZODone HCL 100 MG TABLET 200 MG PO (21:37)
[2022-01-09 03:51] VITALS: RESP 14
[2022-01-09] MEDS: Levothyroxine Sodium 125 MCG TABLET 250 MCG PO (05:55)
[2022-01-09] MEDS: Omeprazole 20 MG CAPSULE.DR PO ×2 (05:56→15:30)
[2022-01-09] MEDS: Heparin Sodium,Porcine 5,000 UNIT/ML VIAL 5000 UNIT SUBCUT ×3 (05:56→21:43)
[2022-01-09 07:08] VITALS: BP 131/60; PULSE 79; RESP 16; TEMP 36.3; O2SAT 93
[2022-01-09 07:29] LABS: Glucose, Whole Blood 130 mg/dL (60-115)
[2022-01-09] MEDS: Buprenorphine/Naloxone 8/2 mg FILM 1 FILM SUBLINGUAL ×3 (07:53→21:42)
[2022-01-09] MEDS: Aspirin Enteric Coated 81 MG TABLET.DR PO (07:53)
[2022-01-09] MEDS: FLUoxetine HCl 20 MG CAPSULE 60 MG PO (07:53)
[2022-01-09] MEDS: Loratadine 10 MG TABLET PO (07:54)
[2022-01-09] MEDS: Lidocaine 4 % Patch ADH..PATCH 1 PATCH TRANSDERMA ×2 (07:54→07:55)
[2022-01-09] MEDS: Gabapentin 600 MG TABLET PO ×3 (07:54→21:42)
[2022-01-09] MEDS: Ammonium Lactate 12 % Lotion 226 GM BOTTLE 1 APPL TOPICAL ×2 (07:57→21:44)
[2022-01-09] MEDS: amLODIPine Besylate 5 MG TABLET PO (07:57)
[2022-01-09] MEDS: Nystatin Powder 15 GM BOTTLE 1 APPL TOPICAL ×2 (07:58→15:31)
[2022-01-09 08:46] LABS: Anion Gap 13 (12-20); Blood Urea Nitrogen 46 mg/dL (9-16); Calcium 8.8 mg/dL (8.4-10.2); Carbon Dioxide 26 mmol/L (22-29); Chloride 104 mmol/L (96-108); Estimated Glomerular Filt Rate 37; Glucose Random 138 mg/dL (60-115); Potassium 5.2 mmol/L (3.3-5.1); Sodium 138 mmol/L (135-145)
[2022-01-09] MEDS: Acetaminophen 325 MG TABLET 650 MG PO (09:05)
--- NOTE | 2022-01-09 09:47 | MHC.CM.PN ---
CM MET W/PT AND CM DIRECTOR WHO IS COVERING FLOOR CM, PT HESISTANT BUT AGREEABLE TO D/C HOME TODAY AND REPORTS SHE WOULD LIKE TO D/C SOON POSSIBLE, [facility] CAN TRANSPORT AT 11AM, HOSPITALIST AWARE VIA TIGER. PT DOES REPORT SHE STILL FEELS UNCOMFORTABLE GETTING UP ONTO [facility] AND CM WILL PROVIDE A BED [facility] AND BED PADS FOR PT TO TAKE HOME, PT CONTACTED BY AND HE IS AWARE AND WILL BE HOME.
[2022-01-09 11:09] VITALS: BP 151/76; PULSE 86; RESP 18; TEMP 36.3; O2SAT 92
[2022-01-09 11:38] LABS: Glucose, Whole Blood 156 mg/dL (60-115)
[2022-01-09] MEDS: Insulin Lispro 100 UNIT/ML 3 ML VIAL SUBCUT ×3 (12:10→21:43)
--- NOTE | 2022-01-09 12:35 | P.PNIM_ITS ---
Subjective Subjective Date of Service: 01/09/22 Interval History: No acute complaints, tolerating diet, no acute events overnight, denies chest pain, no palpitations, no fevers, no chills no rigors. 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 S1, S2 ?pos itive bowel sounds , abdomen is soft, nontender ?neuro patient is alert x 3, no focal defici ts ?extremities no pitting edema Objective Data Active Medications Acetaminophen (Acetaminophen 325 Mg Tablet) 650 mg PO Q6H PRN PRN Reason: Pain, Mild (Pain Scale 1-3) Last Admin: 01/09/22 09:05 Dose: 650 mg Documented By: LEXA Albuterol Sulfate (Albuterol Sulfate 90 Mcg 8 Gm Inhaler) 2 puff INHALE Q4H PRN PRN Reason: wheezing Amlodipine Besylate (Amlodipine Besylate 5 Mg Tablet) 5 mg PO DAILY [facility]; Pr otocol Last Admin: 01/09/22 07:57 Dose: 5 mg Documented By: LEXA Aspirin (Aspirin Enteric Coated 81 Mg Tablet.Dr) 81 mg PO DAILY [facility] Last Admin: 01/09/22 07:53 Dose: 81 mg Documented By: LEXA Atorvastatin Calcium (Atorvastatin Calcium 80 Mg Tablet) 80 mg PO BEDTIME [facility] Last Admin: 01/08/22 21:36 Dose: 80 mg Documented By: PERFECTO Buprenorphine/Naloxone (Buprenorphine/Naloxone 8/2 Mg Film) 1 film SUBLINGUAL TID [facility] Last Admin: 01/09/22 07:53 Dose: 1 film Documented By: LEXA Clonazepam (Clonazepam 0.5 Mg Tablet) 0.5 mg PO DAILY PRN PRN Reason: Anxiety Fluoxetine HCl (Fluoxetine Hcl 20 Mg Capsule) 60 mg PO DAILY [facility] Last Admin: 01/09/22 07:53 Dose: 60 mg Documented By: LEXA Gabapentin (Gabapentin 600 Mg Tablet) 600 mg PO TID [facility] Last Admin: 01/09/22 07:54 Dose: 600 mg Documented By: LEXA Heparin Sodium (Porcine) (Heparin Sodium,Porcine 5,000 Unit/Ml Vial) 5,000 unit SUBCUT Q8H [facility] Last Admin: 01/09/22 12:10 Dose: 5,000 unit Documented By: LEXA Insulin Glargine (Insulin Glargine,Hum.Rec.Anlog 100 Unit/Ml 10 Ml Vial) 18 unit SUBCUT BEDTIME [facility] Last Admin: 01/08/22 21:36 Dose: 18 unit Documented By: PERFECTO Insulin Human Lispro (Insulin Lispro 100 Unit/Ml 3 Ml Vial) 0 unit SUBCUT QIDACHS [facility]; Protocol Last Admin: 01/09/22 12:10 Dose: 2 unit Documented By: LEXA Lactic Acid (Ammonium Lactate 12 % Lotion 226 Gm Bottle) 1 appl TOPICAL BID [facility]; Protocol Last Admin: 01/09/22 07:57 Dose: 1 appl Documented By: LEXA Levothyroxine Sodium (Levothyroxine Sodium 125 Mcg Tablet) 250 mcg PO DAILY@0630 [facility] Last Admin: 01/09/22 05:55 Dose: 250 mcg Documented By: PERFECTO Lidocaine (Lidocaine 4 % Patch Adh..Patch) 1 patch TRANSDERMA DAILY [facility]; Protocol Last Admin: 01/09/22 07:54 Dose: 1 patch Documented By: LEXA Lidocaine (Lidocaine 4 % Patch Adh..Patch) 1 patch TRANSDERMA DAILY [facility]; Protocol Last Admin: 01/09/22 07:54 Dose: Not Given Documented By: LEXA Non-Admin Reason: Patient Refused Lidocaine (Lidocaine 4 % Patch Adh..Patch) 1 patch TRANSDERMA DAILY [facility]; Protocol Last Admin: 01/09/22 07:55 Dose: 1 patch Documented By: LEXA Loratadine (Loratadine 10 Mg Tablet) 10 mg PO DAILY [facility] Last Admin: 01/09/22 07:54 Dose: 10 mg Documented By: LEXA Magnesium Hydroxide (Milk Of Magnesia 30 Ml Oral.Susp) 15 ml PO BEDTIME PRN PRN Reason: Constipation Last Admin: 11/30/21 19:34 Dose: 15 ml Documented By: ADINA Mineral Oil (Mineral Oil Enema 133 Ml Enema) 133 ml SD ONCE PRN PRN Reason: constipation Nystatin (Nystatin Powder 15 Gm Bottle) 1 appl TOPICAL TID [facility]; Protocol Last Admin: 01/09/22 07:58 Dose: 1 appl Documented By: LEXA Omeprazole (Omeprazole 20 Mg Capsule.Dr) 20 mg PO BID@0630,1630 [facility] Last Admin: 01/09/22 05:56 Dose: 20 mg Documented By: PERFECTO Ondansetron HCl (Ondansetron Hcl 4 Mg/2 Ml Vial) 4 mg IVPUSH Q8H PRN PRN Reason: Nausea and Vomiting Pharmacy Consult (Consult Rx Perform Med Rec) 1 each MISCELLANE ONCE PRN PRN Reason: Consult order Polyethylene Glycol (Polyethylene Glycol 3350 17 Gm Powd.Pack) 17 gm PO DAILY [facility] Last Admin: 01/09/22 07:54 Dose: Not Given Documented By: LEXA Non-Admin Reason: Patient Refused Senna/Docusate Sodium (Sennosides/Docusate Sodium Tablet) 1 tab PO DAILY [facility] Last Admin: 01/09/22 08:03 Dose: Not Given Documented By: LEXA Non-Admin Reason: Patient Refused Sodium Chloride (0.9 % Sodium Chloride Flush 3 Ml Syringe) 3 ml IVFLUSH QSHIFT [facility] Last Admin: 01/09/22 07:49 Dose: Not Given Documented By: LEXA Non-Admin Reason: No Access Trazodone HCl (Trazodone Hcl 100 Mg Tablet) 200 mg PO BEDTIME PRN PRN Reason: Insomnia Last Admin: 01/08/22 21:37 Dose: 200 mg Documented By: PERFECTO Labs CBC & Chem 7: 01/01/22 05:51 01/09/22 08:13 Labs: Laboratory Results - last 24 hr 01/08/22 01/08/22 01/09/22 16:14 19:57 07:12 Anion Gap Estim Creat Clear Calc Estimated GFR POC Glucose 139 H 175 H 130 H Random Glucose Calcium 01/09/22 01/09/22 08:13 11:17 Anion Gap 13 Estim Creat Clear Calc 77.0 Estimated GFR 37 POC Glucose 156 H Random Glucose 138 H Calcium 8.8 Assessment and Plan (1) Physical deconditioning: Status: Acute (2) RADHIKA (acute kidney injury): Status: Acute Plan 51 yo F who presented to ED with LE swelling, was awaiting STR placement but noted to have abd swelling and found to have hydronephrosis on abd CT that turns out to be chronic with decreased R kidney function RADHIKA on CKD3 Likely pre renal, continue to hold Lasix avoid NSAIDs, Patient asymptomatic, blood pressure is stable, Creatinine trending down from 1.89-1.48 Follow BMP in next few days Patient appears euvolemic DM2 Blood sugars stable , A1c 9.2,cont. basal/bolus insulin POCs well controlled Physical deconditioning Patient unable to ambulate or even stand up at this point from prolonged hospital stay and deconditioning Physical therapy, nursing staff are following with her with a plan to keep ambulating her and trying to get her up on her feet in order to place her to SNF or to go back home if she is able to climb the stairs.? encourage OOB to chair daily manager retail sales ordered Bariatric larry lift to be delivered at end of this week to help getting up out of bed morbid obesity discussed importance of weight management as this is likely contributing to worsening of other comorbidities Constipation Resolved,continue bowel regimen Right hand swelling Neg. for VTE chronic LE edema/ probable chronic right-sided heart failure US negative for VTE; likely due to obesity, anemia, hypoalbuminemia, and likely R-sided HF echo showing preserved ejection fraction and elevated right atrial pressures IV furosemide changed to oral Lasix - lasix now on hold for RADHIKA chronic hypoxic resp failure likely 2/2 OHS, combined chronic COPD + asthma without acute exacerbation overall better, prn albuterol 1-2 liters nc at baseline, currently on 3 L chest/shoulder pain EKG normal and hs-Tn-I normal.? origin is MSK, likely shoulder impingement; continue lidocaine patch, PT/OT R hydronephrosis/proximal ureteral dilation Urology seen- no acute therapy indicated- chronic issue.? Lasix renogram showed diminished R renal function; normal on L.? outpt Uro f/u.? renal function stable. acute/chronic normocytic anemia likely anemia of CKD, improved s/p 1u pRBCs; normal iron studies/B12/FA H/H stable UTI Finished course of Ceftriaxone HTN continue amlodipine, stable BP HLD continue atorvastatin L knee pain APAP for arthritis pain hypothyroid TSH 20.29, increased LT4 200->250 mcg/d and repeat TSH in 6 wk mood disorder continue fluoxetine GERD PPI OUD Suboxone VTE ppx- UFH Continued hospitalization/dispo - seen by physical therapy; they recommend short-term rehab for optimal functional gains.? however, no STR beds are available in the state due to her weight + Suboxone use + Covid-19 unvaccinated status.? She declines Covid-19 vaccine due to worship beliefs as a Christian. Patient was scheduled to be discharged home but transportation was not available, skilled nursing case manager arranging for safe discharge? Quality Stroke Does the patient have a stroke diagnosis?: No VTE Prior VTE?: No VTE Risk Level:: Medical - moderate - high VTE Device Contraindication: Treatment Not Indicated VTE Drug Contraindication: N/A - Med Ordered
[2022-01-09] MEDS: clonazePAM 0.5 MG TABLET PO (13:04)
[2022-01-09 15:24] VITALS: BP 138/70; PULSE 84; RESP 17; TEMP 36.4; O2SAT 95
[2022-01-09 16:46] LABS: Glucose, Whole Blood 160 mg/dL (60-115)
[2022-01-09 19:21] LABS: Glucose, Whole Blood 278 mg/dL (60-115)
[2022-01-09 19:23] VITALS: BP 146/69; PULSE 80; RESP 18; TEMP 36.5; O2SAT 93
[2022-01-09] MEDS: traZODone HCL 100 MG TABLET 200 MG PO (21:42)
[2022-01-09] MEDS: Atorvastatin Calcium 80 MG TABLET PO (21:42)
[2022-01-09] MEDS: Insulin Glargine,Hum.rec.anlog 100 UNIT/ML 10 ML VIAL 18 UNIT SUBCUT (21:43)
[2022-01-09 23:52] VITALS: BP 142/69; PULSE 77; RESP 16; TEMP 36.7; O2SAT 94
[2022-01-10 04:00] VITALS: RESP 14
[2022-01-10] MEDS: Heparin Sodium,Porcine 5,000 UNIT/ML VIAL 5000 UNIT SUBCUT (06:29)
[2022-01-10] MEDS: Omeprazole 20 MG CAPSULE.DR PO (06:29)
[2022-01-10] MEDS: Levothyroxine Sodium 125 MCG TABLET 250 MCG PO (06:29)
[2022-01-10 06:59] VITALS: BP 125/61; PULSE 79; RESP 18; TEMP 36.4; O2SAT 95
[2022-01-10 07:45] LABS: Glucose, Whole Blood 86 mg/dL (60-115)
--- NOTE | 2022-01-10 08:22 | MHC.CM.PN ---
LATE ENTRY NOTE FOR 01/09/22: CM RECEIVED MESSAGE FROM [facility] THAT THEY ARE UNABLE TO TRANSPORT, CM DIRECTOR CONTACTED [facility] WHO REPORT THEY CAN TRANSPORT PT HOWEVER TYPICALLY BOOK BARIATRIC TRANSPORTS 1 WK IN ADVANCE, CM AWAITING CALL BACK TO DETERMINE WHEN THEY CAN TRANSPORT PT. OF 01/10/2022 0822 CM STILL AWAITING CALL FROM [facility], CM WILL CONTACT THEM CM HAS NOT RECEIVED A CALL W/TIME AND DATE OF TRANSPORT.
--- NOTE | 2022-01-10 08:59 | MHC.CM.PN ---
CM CONTACTED [facility] AND THEY REPORTED AFTER REVIEWING THEY ARE UNABLE TO TRANSPORT PT HOME, CM ALSO CONTACTED [facility], [facility], [facility] AND ALL REPORTED THEY ARE UNABLE TO ACCOMADATE PT, PER [facility] THEY WILL ONLY TRANSPORT [facility] PT'S AND [facility] RRECOMMEND GOUING THROUGH [facility].
[2022-01-10] MEDS: Gabapentin 600 MG TABLET PO (09:31)
[2022-01-10] MEDS: Aspirin Enteric Coated 81 MG TABLET.DR PO (09:31)
[2022-01-10] MEDS: Loratadine 10 MG TABLET PO (09:31)
[2022-01-10] MEDS: clonazePAM 0.5 MG TABLET PO (09:31)
[2022-01-10] MEDS: Buprenorphine/Naloxone 8/2 mg FILM 1 FILM SUBLINGUAL (09:31)
[2022-01-10] MEDS: amLODIPine Besylate 5 MG TABLET PO (09:31)
[2022-01-10] MEDS: FLUoxetine HCl 20 MG CAPSULE 60 MG PO (09:32)
[2022-01-10] MEDS: Lidocaine 4 % Patch ADH..PATCH 1 PATCH TRANSDERMA ×2 (09:32)
[2022-01-10] MEDS: Nystatin Powder 15 GM BOTTLE 1 APPL TOPICAL (09:33)
[2022-01-10] MEDS: Ammonium Lactate 12 % Lotion 226 GM BOTTLE 1 APPL TOPICAL (09:33)
[2022-01-10 11:07] VITALS: BP 145/74; PULSE 84; RESP 18; TEMP 36.1; O2SAT 94
[2022-01-10 11:18] VITALS: BP 145/74; PULSE 84; O2SAT 94
[2022-01-10 11:34] LABS: Glucose, Whole Blood 123 mg/dL (60-115)
--- NOTE | 2022-01-10 11:41 | MHC.CM.PN ---
Addendum entered by Leanna Reyes RN 01/10/22 11:44: AND RESUMP OF HOME O2 AND MUD GRINDER HRS PROVIDED BY [facility]. Original Note: PT MEDICALLY CLEARED FOR D/C HOME W/[facility] FOR LONG-TERM, HOME OT/PT, [facility] WILL PROVIDE PROVIDE TRANSPORT FOR PT.
--- NOTE | 2022-01-10 12:38 | P.F2F_ITS ---
Service Date Service Date: 01/10/22 Encounter Date of encounter: 01/10/22 Reasons for Services Signs and symptoms assessed: generalised weakness Reason for [facility]: medication management, medication treatment and teach disease management Reason for physical therapy: home safety and mobility, therapeutic exercises, restore joint function, gait/transfer training, assess need for DME, ADL training, energy conservation and other Reason for occupational therapy: home safety and mobility, therapeutic exercises, restore joint function, gait/transfer training, assess need for DME, ADL training, energy conservation and other MD Overseeing Care: Ray Cox Homebound: Leaving the home is medically contraindicated at this time without the asist of a device and/or another person due th the listed conditions above and below. Reason homebound: weakness related to hospital stay Certification: Based on the above findings, I certify that this patient is confined to the home and needs intermittent [facility] care, physical therapy and/or speech therapy, or continues to need occupational therapy. The patient is under my care, and I have initiated the establishment of the plan of care. The patient will be followed by a physician who will periodically review the plan of care.
--- NOTE | 2022-01-10 12:49 | P.DS_ITS ---
DS: Providers Provider Date of Service: 01/10/22 Date of admission: 11/12/21 14:51 Date of discharge: 01/10/22 Primary care physician: SUGEY Esteban Consults: 11/12/21 13:33 Consult to Infectious Diseases Routine Consulting Provider: Cindy Rodriguez Reason for consultation: Extensive hx with bx resistance 11/14/21 08:03 Consult to Urology Routine Consulting Provider: Mihai Reed Reason for consultation: hydronephrosis Has provider been notified: No 11/17/21 08:08 Consult to Nephrology Routine Consulting Provider: Neo Durham Reason for consultation: abnormal lasix renogram ckd Has provider been notified: No DS: Diagnosis Discharge Diagnosis (1) Physical deconditioning: Status: Acute (2) RADHIKA (acute kidney injury): Status: Acute DS: Summary Hospital Course Hospital Course: from admission H+P :51-year-old woman presenting to the ER on December 08 with lower extremity edema.? She initially had a DVT study which was negative and the plan was for her to be placed in a short-term rehab however there was difficulty due to her morbid obesity and un vaccinated status for COVID.? Over the last several days she has seemed to be stable however today she was found to have some swelling to her abdomen and an abdominal CT scan was obtained which showed right-sided hydronephrosis and proximal ureteral dilatation.? In August of 2021 she did undergo cystoscopy with right stent placement, therefore she has had these issues in the past. in the ER, hemoglobin hematocrit appear to be low at 7.9 and 26.7 with no overt bleeding, all other labs within acceptable limits, vital signs stable, hemodynamically stable.? She will be admitted for further management and treatment of acute hydronephrosis with UTI. hospital course: Patient was to be scheduled to discharged home yesterday-could not able to go because of transportation was not available. Patient denies any new symptoms, vital stable. Patient had a prolonged hospital stay-we will try to coordinate discharge plan system díaz as below: RADHIKA on CKD3: Initially received IV diuresis-chronic LE edema/ probable chronic right-sided heart failure. Subsequently Lasix was placed on hold due to RADHIKA. Likely pre renal, continue to hold Lasix avoid NSAIDs, Patient asymptomatic, blood pressure is stable, Creatinine trending down from 1.89-1.48 Follow BMP in next few days Patient appears euvolemic DM2: fs acceptable . Blood sugars stable , A1c 9.2, basal/bolus insulin. Physical deconditioning Patient unable to ambulate or even stand up at this point from prolonged hospital stay and deconditioning Physical therapy, nursing staff are following with her with a plan to keep ambulating her and trying to get her up on her feet in order to place her to SNF or to go back home if she is able to climb the stairs.? encourage OOB to chair daily post exchange manager ordered Bariatric larry lift to be delivered at end of this week to help getting up out of bed morbid obesity discussed importance of weight management as this is likely contributing to worsening of other comorbidities Constipation Resolved,continue bowel regimen Right hand swelling Neg. for VTE chronic LE edema/ probable chronic right-sided heart failure US negative for VTE; likely due to obesity, anemia, hypoalbuminemia, and likely R-sided HF echo showing preserved ejection fraction and elevated right atrial pressures IV furosemide changed to oral Lasix -? lasix now on hold for RADHIKA chronic hypoxic resp failure likely 2/2 OHS, combined chronic COPD + asthma without acute exacerbation overall better, prn albuterol 1-2 liters nc at baseline, currently on 3 L chest/shoulder pain EKG normal and hs-Tn-I normal.? origin is MSK, likely shoulder impingement; continue lidocaine patch, PT/OT R hydronephrosis/proximal ureteral dilation Urology seen- no acute therapy indicated- chronic issue.? Lasix renogram showed diminished R renal function; normal on L.? outpt Uro f/u.? renal function stable. acute/chronic normocytic anemia likely anemia of CKD, improved s/p 1u pRBCs; normal iron studies/B12/FA H/H stable UTI Finished course of Ceftriaxone HTN continue amlodipine, stable BP HLD continue atorvastatin L knee pain APAP for arthritis pain hypothyroid TSH 20.29, increased LT4 200->250 mcg/d and repeat TSH in 6 wk OUD Suboxone Initial plan for STR but in the end, she was discharged home with VNA services. Assessment and plan coordination time spent 50 minutes. Time Spent with Patient Time attestation: Total time spent providing and/or coordinating discharge services: Discharge coordination time: Greater than 30 minutes Quality: Safe Use of Opioids Does Pt have an Active Cancer Diagnosis on the Problem List?: No Quality: Stroke Does the patient have a stroke diagnosis?: No Physical Exam Vital Signs: Vital Signs: Last Vital Signs Temp 97.0 F 01/10/22 11:07 Pulse 84 01/10/22 11:18 Resp 18 01/10/22 11:07 BP 145/74 H 01/10/22 11:18 Pulse Ox 94 01/10/22 11:18 O2 Del Method 01/10/22 11:07 O2 Flow Rate 2 01/10/22 06:59 BMI result Body Mass Index 60.7 Gen: in no acute distress HEENT: sclera anicteric, moist mucus membranes Neck: supple Lungs: clear to auscultation bilaterally Heart: regular rate and rhythm, no murmurs Abd: soft, non-tender, non-distended, obese Ext: no cyanosis or pitting edema Skin: warm/well-perfused Neuro: alert and oriented x3, no focal findings Psych: appropriate affect DS: Data Data Completed and Pending Completed studies during hospitalization [Text1]: Procedures Assistance with Respiratory Ventilation, Less than 24 Consecutive Hours, Continuous Positive Airway Pressure (08/19/21) Dilation of Right Ureter with Intraluminal Device, Via Natural or Artificial Opening Endoscopic (08/13/21) Fluoroscopy of Right Kidney, Ureter and Bladder (08/13/21) Labs on day of discharge: Laboratory Results - last 24 hr 01/09/22 01/09/22 01/10/22 15:30 19:04 07:08 POC Glucose 160 H 278 H 86 01/10/22 11:10 POC Glucose 123 H 01/08/22 01/08/22 01/09/22 ? 16:14 19:57 07:12 Anion Gap ? ? ? Estim Creat Clear Calc ? ? ? Estimated GFR ? ? ? POC Glucose ?139 H ?175 H ?130 H Random Glucose ? ? ? Calcium ? 01/09/22 01/09/22 ? 08:13 11:17 Anion Gap ?13 ? Estim Creat Clear Calc ?77.0 ? Estimated GFR ?37 ? POC Glucose ? ?156 H Random Glucose ?138 H ? Calcium ?8.8 ? Additional Comments Additional comments: US/US venous duplex UE RT IMPRESSION: No DVT demonstrated in the right upper extremity. ?XR/XR chest 1V IMPRESSION: *? Obese body habitus. *? Cardiomegaly and groundglass opacities of both lungs, nonspecific, possibly from vascular congestion and minimal edema rather than pneumonitis. NM/NM renal flow w pharm int IMPRESSION: This exam is limited from patient body habitus and artifact. The scan is limited in diagnostic evaluation. ? On the left, there is perfusion uptake and function and the kidney does empty into the bladder. ? On the right, the graphs suggest diminished perfusion. Uptake and function is diminished and there is residual contrast in the collecting system despite Lasix administration. Although this finding could well represent an element of obstruction excretion within dilated nonobstructed patulous collecting system would need to be considered here as well. ? Split functions are 79% left and 21% right. Discharge Plan Discharge Patient Disposition: Home Health Service Discharge Diagnosis: R hydronephrosis/proximal ureteral dilation UTI anemia of chronic disease chronic respiratory failure morbid obesity Referrals: [facility] [Outside] - 1 Day (CARE HOME, HOME OT/PT, A NURSE WILL CONTACT YOU TO SET UP FIRST VISIT ) Mihai Reed MD [Physician] - 1 Week Ray Cox FNP [Primary Care Provider] - 1 Week Neo Durham MD [Physician] - 1 Week (follow up outpatiently) Discharge Medications: New lidocaine [Lidocaine Pain Relief] 4 % Adhesive Patch,Medicated 1 patch transdermal DAILY Qty: 30 0RF Protocol: Apply to: Apply to: left knee levothyroxine 125 mcg Tablet 250 mcg PO DAILY@0630 Qty: 30 0RF docusate sodium [Colace] 100 mg capsule 100 mg PO DAILY PRN (Reason: constipation) Qty: 30 0RF Continued amlodipine [Norvasc] 5 mg tablet 5 mg PO DAILY 30 Days Qty: 30 0RF atorvastatin 80 mg tablet 1 tab PO BEDTIME gabapentin 600 mg tablet 1 tab PO TID aspirin 81 mg tablet,delayed release (DR/EC) 1 tab PO DAILY trazodone 100 mg tablet 2 tab PO BEDTIME PRN (Reason: Insomnia) omeprazole 20 mg capsule,delayed release(DR/EC) 1 cap PO BID@0630,1630 albuterol sulfate [ProAir HFA] 90 mcg/actuation HFA aerosol inhaler 2 puff PO Q4H PRN (Reason: wheezing) fluoxetine 20 mg capsule 3 cap PO DAILY insulin lispro [Humalog KwikPen Insulin] 100 unit/mL insulin pen 8 - 17 unit subcut TIDAC Rx Instructions: give with food buprenorphine-naloxone [Suboxone] 8-2 mg film 1 strip sublingual TID loratadine 10 mg tablet 1 tab PO DAILY clonazepam 0.5 mg tablet 0.5 tab PO DAILY PRN (Reason: Anxiety) (DME) pen needle, diabetic [UltiCare Pen Needle] 31 gauge x 5/16 needle See Rx Instructions subcut .MEDSUPPLY Qty: 1200 Rx Instructions: As directed (DME) FreeStyle Lite Strips Strip See Rx Instructions Not Applicable QID Qty: 10 Rx Instructions: As directed Discontinued ibuprofen 800 mg tablet 1 tab PO TID PRN (Reason: pain) levothyroxine 200 mcg tablet 1 tab PO DAILY@0630 insulin glargine [Lantus Solostar U-100 Insulin] 100 unit/mL (3 mL) insulin pen 22 - 54 unit subcut BID furosemide [Lasix] 20 mg tablet 20 mg PO DAILY Qty: 7 0RF No Action insulin glargine [Lantus Solostar U-100 Insulin] 100 unit/mL (3 mL) insulin pen 20 unit subcut BEDTIME Discharge Orders: Discharge Order (Routine); Ordered 01/10/22 Ordered By: Sunshine Conner Activity on Discharge: As tolerated Stand Alone Forms: Patient Portal Discharge page Other Ambulatory Orders: Basic Metabolic Panel (Routine) Timeframe: 1 Week Facility: [facility] - Location: Laboratory Ordered By: Paige Martinez Basic Metabolic Panel Fasting (Routine) Timeframe: 1 Week Facility: [facility] - Location: Laboratory Ordered By: Sunshine Conner Complete Blood Count Auto Diff (Routine) Timeframe: 1 Month Facility: [facility] - Location: Laboratory Ordered By: Lexii Quesada Complete Blood Count no Diff (Routine) Timeframe: 1 Week Facility: [facility] - Location: Laboratory Ordered By: Paige Martinez Thyroid Stimulating Hormone (Routine) Timeframe: 1 Month Facility: [facility] - Location: Laboratory Ordered By: Lexii Quesada Thyroid Stimulating Hormone (Routine) Timeframe: 1 Week Facility: [facility] - Location: Laboratory Ordered By: Paige Martinez Care Plan Goals: kidney health lung health weight loss Health Concerns: R hydronephrosis/proximal ureteral dilation UTI anemia of chronic disease chronic respiratory failure morbid obesity hypothyroidism Plan of Treatment: follow up with Urology completed antibiotics recheck CBC in 1 month home oxygen, 2L via nasal cannula weight loss increase levothyroxine from 200 to 250 mg/d and recheck TSH in 1 month Assessment: See Discharge Summary Discharge Date/Time: 01/10/22 12:11
== END 2022-01-10 12:11 | disposition home health service (06) | DRG 463 ==
LOC: HO.ED 11-12 14:06 → HO.EDOVER 11-12 15:04 → HO.S3 11-12 17:09
PROVIDERS: Family Medicine; Hospitalist; Internal Medicine; Physician Assistant; Physician Assistant Medical; Student in an Organized Health Care Education/Training Program; Admitting Provider Nurse Practitioner Acute Care; Emergency Provider Emergency Medicine; PCP Nurse Practitioner Family; Visit Provider Internal Medicine
DX: N13.6 Pyonephrosis (principal); J96.21 Acute and chronic respiratory failure with hypoxia; I50.33 Acute on chronic diastolic (congestive) heart failure; N17.9 Acute kidney failure, unspecified; Z68.45 Body mass index [BMI] 70 or greater, adult; D63.1 Anemia in chronic kidney disease; E66.2 Morbid (severe) obesity with alveolar hypoventilation; I13.0 Hypertensive heart and chronic kidney disease with heart failure and stage 1 through stage 4 chronic kidney disease, or unspecified chronic kidney disease; I50.812 Chronic right heart failure; F17.210 Nicotine dependence, cigarettes, uncomplicated; E03.9 Hypothyroidism, unspecified; N18.30 Chronic kidney disease, stage 3 unspecified; E78.5 Hyperlipidemia, unspecified; M17.12 Unilateral primary osteoarthritis, left knee; F11.20 Opioid dependence, uncomplicated; E11.65 Type 2 diabetes mellitus with hyperglycemia; F39 Unspecified mood [affective] disorder; K59.00 Constipation, unspecified; D50.0 Iron deficiency anemia secondary to blood loss (chronic); E11.22 Type 2 diabetes mellitus with diabetic chronic kidney disease; J44.9 Chronic obstructive pulmonary disease, unspecified; R31.9 Hematuria, unspecified; Z20.822 Contact with and (suspected) exposure to COVID-19; Z75.1 Person awaiting admission to adequate facility elsewhere; Z71.6 Tobacco abuse counseling; Z28.310 Unvaccinated for COVID-19; Z87.440 Personal history of urinary (tract) infections; Z91.040 Latex allergy status; Z79.4 Long term (current) use of insulin; Z79.82 Long term (current) use of aspirin; Z79.890 Hormone replacement therapy; Z79.899 Other long term (current) drug therapy
CPT/HCPCS: 0241U; 36415; 71045; 73560; 74176; 78708; 80048; 80076; 80307; 81001; 82607; 82746; 82803; 82947; 83010; 83036; 83540; 83615; 83735; 83880; 84443; 84484; 85014; 85018; 85025; 85027; 85610; 86850; 86880; 86900; 86901; 86923; 87040; 87103; 87633; 87635; 93005; 93970; 93971; 97110; 97162; 97166; 97530; 99285; A9539; C1758; J0696; J1940; P9016

== ENCOUNTER 2022-01-10 13:10 | Emergency (ER) | payer MEDICAID, SELFPAY ==
--- NOTE | ~2022-01-10 | US_ITS ---
EXAMINATION: US VENOUS ULTRASOUND WITH DOPPLER LOWER EXTREMITY, BILATERAL CLINICAL INFORMATION: Pain and left knee swelling COMPARISON: Previous exam most recent November 2021 TECHNIQUE: Ultrasound of the deep veins is performed from the hip to the calf with compression sonography and color and pulse Doppler assessment. Spectral analysis with color-flow imaging is performed. FINDINGS: RIGHT: There is normal venous compression and respiratory variation and augmented flow. The visualized common femoral vein, superficial femoral vein, profunda femoral vein, popliteal vein, and the trifurcation region shows no evidence of deep venous thrombosis. Peroneal veins not well visualized. LEFT: There is normal venous compression and respiratory variation and augmented flow. The visualized common femoral vein, superficial femoral vein, profunda femoral vein, popliteal vein, and the trifurcation region shows no evidence of deep venous thrombosis. Peroneal veins not well visualized. US/US venous duplex LE IMPRESSION: No DVT demonstrated in the bilateral lower extremity.
[2022-01-10 13:44] VITALS: BP 144/75; PULSE 90; RESP 18; TEMP 36.7; O2SAT 94; BMI 64.5
--- NOTE | 2022-01-10 14:44 | PHA.MEDREC ---
Pharmacy Consult ? Medication Reconciliation Pharmacy has completed the medication reconciliation. Patient discharged from [facility] this AM 01/10/22. Used discharged summary for med rec. Robe YunD
--- NOTE | 2022-01-10 15:04 | ED_ITS ---
HPI - General Adult General Chief complaint: General Medical Stated complaint: re- admit Time Seen by Provider: 01/10/22 14:24 Source: EMS Mode of arrival: EMS Limitations: no limitations History of Present Illness HPI narrative: 51yo female with history of morbid obesity, diabetes, high cholesterol, hypertension presents with inability to get into her apartment. Patient was discharged this morning from [facility] however was unable to get up to her 2nd floor apartment. Therefore she was brought back to the emergency room as she will need a new place of living. Patient was here for an extensive admission. She did get some physical therapy while she was here but she was complaining of some left knee pain and instability with inability to bear weight on it. Patient had a venous ultrasound which was negative for DVT. She had x- rays the left knee which showed some arthritis. And she is complaining of left knee pain and swelling and pain with weight- bearing but has no other complaints Related Data Home Medications Medication Instructions Recorded Confirmed albuterol sulfate 90 mcg/actuation 2 puff PO Q4H PRN wheezing 08/13/21 01/10/22 aerosol inhaler (ProAir HFA) aspirin 81 mg tablet,delayed 1 tab PO DAILY 08/13/21 01/10/22 release atorvastatin 80 mg tablet 1 tab PO BEDTIME 08/13/21 01/10/22 buprenorphine 8 mg-naloxone 2 mg 1 strip sublingual TID 08/13/21 01/10/22 sublingual film (Suboxone) fluoxetine 20 mg capsule 3 cap PO DAILY 08/13/21 01/10/22 gabapentin 600 mg tablet 1 tab PO TID 08/13/21 01/10/22 insulin lispro 100 unit/mL 8 - 17 unit subcut TIDAC 08/13/21 01/10/22 subcutaneous pen (Humalog KwikPen (U-100) Insulin) loratadine 10 mg tablet 1 tab PO DAILY 08/13/21 01/10/22 omeprazole 20 mg capsule,delayed 1 cap PO BID@0630,1630 08/13/21 01/10/22 release trazodone 100 mg tablet 2 tab PO BEDTIME PRN Insomnia 08/13/21 01/10/22 blood sugar diagnostic (FreeStyle #10 ea 09/21/21 11/08/21 Lite Strips) pen needle, diabetic 31 gauge x #1,200 ea 09/21/21 11/08/21/16 (UltiCare Pen Needle) clonazepam 0.5 mg tablet 0.5 tab PO DAILY PRN Anxiety 10/05/21 01/10/22 insulin glargine 100 unit/mL (3 20 unit subcut BEDTIME 01/10/22 01/10/22 mL) subcutaneous pen (Lantus Solostar U-100 Insulin) Previous Rx's Medication Instructions Recorded amlodipine 5 mg tablet (Norvasc) 5 mg PO DAILY 30 days #30 tabs 09/09/21 levothyroxine 125 mcg tablet 250 mcg PO DAILY@0630 #30 tabs 11/22/21 lidocaine 4 % topical patch 1 patch transdermal DAILY #30 ea 11/22/21 (Lidocaine Pain Relief) docusate sodium 100 mg capsule 100 mg PO DAILY PRN constipation 01/10/22 (Colace) #30 caps Allergies Allergy/AdvReac Type Severity Reaction Status Date / Time canagliflozin [From Invokana] Allergy Rash Verified 10/14/21 13:49 latex Allergy Itching Verified 10/14/21 13:49 metformin Allergy Hives Verified 10/14/21 13:49 Penicillins Allergy Rash Verified 10/14/21 13:49 sitagliptin [From Januvia] Allergy Rash Verified 10/14/21 13:49 Review of Systems Review of Systems: Yes all other systems are reviewed and are negative Constitutional: Constitutional: Reports no additional constitutional complaints, Denies body ache(s), Denies chills, Denies fever(s), Denies headache(s) and Denies weakness Eyes: Eyes: Reports no additional eye complaints and Denies change in vision ENT: Reports system reviewed and no additional complaints, except as documented, Denies dizziness, Denies headache(s), Denies nasal congestion, Denies nasal discharge and Denies neck pain Cardiovascular: Cardiovascular: Reports no additional cardiovascular complaints, Denies chest pain, Denies leg edema and Denies dyspnea Respiratory: Respiratory: Reports no additional respiratory complaints, Denies cough and Denies dyspnea Gastrointestinal: Gastrointestinal: Reports no additional gastrointestinal complaints, Denies abdominal pain, Denies diarrhea, Denies nausea and Denies vomiting Genitourinary: Genitourinary: Reports no additional female genitourinary complaints and Denies urinary incontinence Musculoskeletal: Musculoskeletal: Reports no additional musculoskeletal complaints, Denies back pain, Reports arthralgias, Denies joint swelling, Reports limited range of motion, Denies neck pain, Denies numbness and Denies tingling Integumentary/Breasts: Skin/Breast: Reports system reviewed and no additional complaints, except as docu and Denies rash Neurologic: Reports system reviewed and no additional complaints, except as documented, Denies dizziness, Denies headache(s), Denies numbness, Denies tingling and Denies weakness PMFSH Past Medical History Attestation statement: The following information was validated with the patient. Source: old records reviewed and nursing notes reviewed Medical History Choledocholithiasis DMII (diabetes mellitus, type 2) High cholesterol HTN (hypertension) Hydronephrosis of right kidney Hydroureteronephrosis Kidney stones Morbid obesity Normocytic anemia Pyelonephritis UTI (urinary tract infection) Surgical History No pertinent past surgical history Family History Family History Mother Coronary artery disease Diabetes Social History Social History Household Members: Significant Other Household Members Other:: 2 Housing: Apartment Do you presently have visiting nurse or other home services: No Alcohol intake: current Alcohol intake frequency: a few times a month Alcohol type: beer Patient Tobacco Use Status: Current everyday Tobacco user Tobacco use type: Cigarette Cigarettes Per Day: 5 Years Smoked: 41 Second Hand Smoke Exposure: No Substance Use Type: Former Substance User Advance Directives: No Advance Directives Information Provided: No service: No Current occupational status: unemployed Physical Exam ED Vital Signs: Vital Signs - 24 hr 01/10/22 13:44 01/10/22 16:50 Temperature 98.0 F Pulse Rate 90 87 Respiratory Rate 18 16 Blood Pressure 144/75 H 143/80 H Pulse Oximetry 94 92 Oxygen Delivery Method Room Air Room Air BMI result Body Mass Index 64.5 Const General: alert Nutritional Appearance: obese Orientation/consciousness: patient oriented x3 Limitations: no limitations HENMT Head: Yes normal to inspection Eyes General: appearance normal, both eyes and all related structures Neck Neck: Yes normal visual inspection Chest Chest palpation & inspection: normal inspection of the chest Resp Effort & Inspection: normal respiratory effort Cardio Peripheral pulses: Peripheral pulses 2+ throughout GI Inspection: Yes normal to inspection Skin General skin exam: no rashes or lesions noted Neuro General: patient oriented x3 and moves all extremities Extrem Other: There is tenderness the left anterior knee with limited range of motion due to pain. Neurovascular intact distally. Course Course Course Narrative: Medications reconciled. Patient placed in physician observation pending disposition Reevaluation(s) Reevaluation #1: 1800-Sign out to Maricruz Shaw pending above Consultations Consultation #1: Honey SHAW-chronic left knee pain with inability to tolerate pain with a negative ultrasound for DVT an x-ray that is consistent with osteoarthritis. Patient reports improvement with cortisone injections in the past. Patient is unable to ambulate and therefore her discharge has been complicated by this. Discussed with Lindsey from Orthopedics. Recommend patient trialing a prednisone course to see if this helps with pain and ambulation. Medical Decision Making MDM Narrative Medical decision making narrative: 51-year-old female who returns to the emergency room after a failed discharge home this morning as she was unable to get up into her 2nd floor apartment. She is reporting chronic left knee pain with difficulty bearing weight and instability which has been a chronic issue for her with no new injury or trauma. Case management is aware the patient has returned and patient will need secondary placement as she cannot return to her apartment. Will check COVID screen, tox screen per Case Management, reconcile medications. Seems that patient is quite immobile and most of this is secondary to her chronic left knee pain. She tells me she has received cortisone injections in the past which have been quite helpful. Therefore recommendations from our chief of anesthesiology is for the patient to receive an orthopedic consultation to see if this is something they would be willing to do Medical Records Medical records reviewed: Yes I reviewed the patient's medical records. Lab Data Lab results reviewed: Yes I reviewed the patient's lab results. Labs: Lab Results 01/10/22 Range/Units 16:04 COVID-19 ([facility]) Negative (Negative) COVID-19 Clin Com See Note Discharge Plan Discharge Clinical Impression: Physical deconditioning, Chronic knee pain Patient Disposition: Still a Patient Prescriptions: No Action amlodipine [Norvasc] 5 mg tablet 5 mg PO DAILY 30 Days Qty: 30 0RF insulin glargine [Lantus Solostar U-100 Insulin] 100 unit/mL (3 mL) insulin pen 20 unit subcut BEDTIME atorvastatin 80 mg tablet 1 tab PO BEDTIME gabapentin 600 mg tablet 1 tab PO TID aspirin 81 mg tablet,delayed release (DR/EC) 1 tab PO DAILY trazodone 100 mg tablet 2 tab PO BEDTIME PRN (Reason: Insomnia) omeprazole 20 mg capsule,delayed release(DR/EC) 1 cap PO BID@0630,1630 albuterol sulfate [ProAir HFA] 90 mcg/actuation HFA aerosol inhaler 2 puff PO Q4H PRN (Reason: wheezing) fluoxetine 20 mg capsule 3 cap PO DAILY insulin lispro [Humalog KwikPen Insulin] 100 unit/mL insulin pen 8 - 17 unit subcut TIDAC Rx Instructions: give with food buprenorphine-naloxone [Suboxone] 8-2 mg film 1 strip sublingual TID loratadine 10 mg tablet 1 tab PO DAILY clonazepam 0.5 mg tablet 0.5 tab PO DAILY PRN (Reason: Anxiety) lidocaine [Lidocaine Pain Relief] 4 % Adhesive Patch,Medicated 1 patch transdermal DAILY Qty: 30 0RF Protocol: Apply to: Apply to: left knee levothyroxine 125 mcg Tablet 250 mcg PO DAILY@0630 Qty: 30 0RF docusate sodium [Colace] 100 mg capsule 100 mg PO DAILY PRN (Reason: constipation) Qty: 30 0RF (DME) pen needle, diabetic [UltiCare Pen Needle] 31 gauge x 5/16 needle See Rx Instructions subcut .MEDSUPPLY Qty: 1200 Rx Instructions: As directed (DME) FreeStyle Lite Strips Strip See Rx Instructions Not Applicable QID Qty: 10 Rx Instructions: As directed
--- NOTE | 2022-01-10 15:37 | MHC.CM.ED ---
CASE MANAGEMENT NOTIFIED THAT AMBULANCE WAS UNABLE TO GET PATIENT UP THE STAIRS AND/OR INTO HER APARTMENT. CASE DISCUSSED WITH [facility] WORKER SUPERVISOR. ED N.P. UPDATED AND PLAN IS FOR ORTHO CONSULT SECONDARY TO LACK OF OPTIONS, CASE MANAGEMENT TO ATTEMPT POSSIBLE FIRST FLOOR SAFE CUSTODIAL HOUSING, PATIENT IS UNABLE TO RETURN TO HER APARTMENT
[2022-01-10 16:28] LABS: COVID-19 Test Negative (Negative); IDNOW Serial# 9DB6401D
[2022-01-10 16:50] VITALS: BP 143/80; PULSE 87; RESP 16; O2SAT 92
[2022-01-10 17:16] LABS: Amphetamine Screen Urine Not Detected (Not Detect); Barbiturates, Urine Not Detected (Not Detect); Benzodiazepines Screen Urine Not Detected (Not Detect); Cannabinoid Screen Urine Not Detected (Not Detect); Cocaine Screen Urine Not Detected (Not Detect); Fentanyl, urine Not Detected (Not Detect); Opiate Screen Urine Not Detected (Not Detect); Phencyclidine Screen Urine Not Detected (Not Detect)
--- NOTE | 2022-01-10 20:05 | PC.NURSE ---
pt states she has to use the bathroom, this RN and EDT KAMRYN and EDT Rima at bedside to help pt use hoiter lift to commode, pt states, no i don't wanna use that thing I have to pee now I wanna use a bedpan pt placed on bedpan, pt provided perineal care and linen change, pt educated on importance of getting up to use the commode.
[2022-01-10 21:38] LABS: Glucose, Whole Blood 108 mg/dL (60-115)
[2022-01-10 21:38] LABS: Glucose, Whole Blood 136 mg/dL (60-115)
[2022-01-10] MEDS: Atorvastatin Calcium 80 MG TABLET PO (21:39)
[2022-01-10] MEDS: Buprenorphine/Naloxone 8/2 mg FILM 1 FILM SUBLINGUAL (21:40)
[2022-01-10] MEDS: predniSONE 20 MG TABLET PO (21:40)
[2022-01-10] MEDS: Gabapentin 600 MG TABLET PO (21:40)
[2022-01-10] MEDS: traZODone HCL 100 MG TABLET 200 MG PO (21:42)
[2022-01-10 23:57] VITALS: BP 151/77; PULSE 84; O2SAT 96
[2022-01-11] VITALS (7 sets, daily range): BP systolic 136–155; BP diastolic 74–91; PULSE 71–90; RESP 16–18; TEMP 36.3–36.5; O2SAT 97–100
[2022-01-11 00:11] LABS: Glucose, Whole Blood 145 mg/dL (60-115)
--- NOTE | 2022-01-11 02:35 | PC.NURSE ---
pt provided perineal care & linen change
[2022-01-11] MEDS: Omeprazole 20 MG CAPSULE.DR PO ×2 (08:44→14:49)
[2022-01-11] MEDS: Levothyroxine Sodium 125 MCG TABLET 250 MCG PO (08:44)
[2022-01-11] MEDS: predniSONE 20 MG TABLET PO ×2 (08:44→20:23)
[2022-01-11] MEDS: Lidocaine 4 % Patch ADH..PATCH 1 PATCH TRANSDERMA (08:45)
[2022-01-11] MEDS: Loratadine 10 MG TABLET PO (08:45)
[2022-01-11] MEDS: FLUoxetine HCl 20 MG CAPSULE 60 MG PO (08:45)
[2022-01-11] MEDS: Gabapentin 600 MG TABLET PO ×3 (08:45→20:23)
[2022-01-11] MEDS: Buprenorphine/Naloxone 8/2 mg FILM 1 FILM SUBLINGUAL ×3 (08:45→20:23)
[2022-01-11] MEDS: Aspirin Enteric Coated 81 MG TABLET.DR PO (08:45)
[2022-01-11] MEDS: amLODIPine Besylate 5 MG TABLET PO (08:46)
--- NOTE | 2022-01-11 10:13 | MHC.CM.ED ---
CASE MANAGEMENT MET WITH PATIENT REQUEST FOR KANDI'S PHONE NUMBER ACCORDING TO P[, THE FIRE DEPT STAFF MEMBER THAT WAS PRESENT FOR YESTERDAY'S STAIR ATTEMPT PLANS TO CALL THE KANDI WELL. PATIENT DOPES NOT HAVE HIS NUMBER BUT STATES THAT HER BOYFRIEND WILL BE IN SHORTLY AND HE HAS IT. PATIENT ALSO AWARE THAT SHE IS HOMELESS AT THIS POINT AND ATTEMPTS MAY BE MADE TO SECURE HOMELESS RESOURCES CASE MANAGEMENT TO FOLLOW BACK UP WITH PATIENT.
[2022-01-11 11:42] LABS: Glucose, Whole Blood 169 mg/dL (60-115)
--- NOTE | 2022-01-11 12:28 | MHC.CM.ED ---
Addendum entered by Emma Garcia 01/11/22 15:29: CALL BACK FROM OSMANY, WHO TELLS THIS CROP AND SOIL TECHNICIAN THAT HE IS NOT THE [facility] AND IS AN MARKETING COMMUNICATIONS ASSISTANT WHEN NEEDED OSMANY STATES THAT [facility] IS THE [facility] AND TO CALL THEM @ [phone]. IF NO ANSWER, HE SUGGESTS CALLING AND LEAVING MESSAGES, OFTEN MULTIPLE MESSAGES ARE NEEDED. Original Note: CALL TO OSMANY CHAU @ [phone] [employer] GIVES CONTACT NUMBER FOR [facility] @ [phone] MESSAGE LEFT ON THIS LINE FOR A CALL BACK. DETAILS OF MESSAGE INCLUDED A REQUEST FOR ANY FIRST FLOOR DWELLING AVAILABILITY, AND IF NOT, TO PLEASE LET THIS CROP AND SOIL TECHNICIAN KNOW SO THAT ADDITIONAL EFFORTS CAN BE MADE TO PLACE PATIENT. PATIENT SHARED THAT HER [employer]SI DISABILITY PAYS FOR THE APARTMENT; THEREFORE THERE ARE SOME FUNDS TO PAY TOWARDS RENT
[2022-01-11 13:39] LABS: Glucose, Whole Blood 162 mg/dL (60-115)
[2022-01-11 17:20] LABS: Glucose, Whole Blood 221 mg/dL (60-115)
--- NOTE | 2022-01-11 17:43 | PC.NURSE ---
Bed changed and new purewick placed 1730 with Constantin assisting. Pt repositioned, call celaya within reach, bed in lowest position.
[2022-01-11] MEDS: Atorvastatin Calcium 80 MG TABLET PO (20:23)
[2022-01-11] MEDS: Insulin Glargine,Hum.rec.anlog 100 UNIT/ML 10 ML VIAL 20 UNIT SUBCUT (20:23)
[2022-01-11 22:51] LABS: Glucose, Whole Blood 190 mg/dL (60-115)
[2022-01-12] VITALS: BP 152/82; PULSE 77; O2SAT 98
[2022-01-12 03:53] VITALS: BP 141/78; PULSE 66; O2SAT 98
[2022-01-12 06:00] VITALS: BP 141/74; PULSE 71; O2SAT 97
[2022-01-12] MEDS: Levothyroxine Sodium 125 MCG TABLET 250 MCG PO (06:44)
[2022-01-12] MEDS: Omeprazole 20 MG CAPSULE.DR PO ×2 (06:44→16:27)
[2022-01-12 08:14] VITALS: BP 138/78; PULSE 63; RESP 18; TEMP 36.6; O2SAT 97
[2022-01-12 08:36] LABS: Glucose, Whole Blood 190 mg/dL (60-115)
[2022-01-12] MEDS: FLUoxetine HCl 20 MG CAPSULE 60 MG PO (09:05)
[2022-01-12] MEDS: clonazePAM 0.5 MG TABLET 0.25 MG PO (09:05)
[2022-01-12] MEDS: amLODIPine Besylate 5 MG TABLET PO (09:06)
[2022-01-12] MEDS: Aspirin Enteric Coated 81 MG TABLET.DR PO (09:06)
[2022-01-12] MEDS: Loratadine 10 MG TABLET PO (09:06)
[2022-01-12] MEDS: Lidocaine 4 % Patch ADH..PATCH 1 PATCH TRANSDERMA (09:06)
[2022-01-12] MEDS: Gabapentin 600 MG TABLET PO ×3 (09:06→21:10)
[2022-01-12] MEDS: predniSONE 20 MG TABLET PO ×2 (09:06→21:10)
[2022-01-12] MEDS: Buprenorphine/Naloxone 8/2 mg FILM 1 FILM SUBLINGUAL ×3 (09:06→21:10)
[2022-01-12 15:03] VITALS: BP 152/83; PULSE 80; TEMP 36.6; O2SAT 96
[2022-01-12 18:17] LABS: Glucose, Whole Blood 299 mg/dL (60-115)
--- NOTE | 2022-01-12 18:47 | MHC.CM.ED ---
FRANCISCA spoke with Jazmine Monsivais regarding plan moving forward with this patient. Jazmine has been working with [employer] for appropriate housing for this patient. FRANCISCA spoke with Jazmine regarding consulting the senior caregiver for weight management, thinking that with more weight loss, patient may be able to transport to her home. Jazmine suggested daily PT. FRANCISCA spoke with Chino FLORES. Room Service Runner consult made and PT, with daily PT. CM will follow for d/c needs.
--- NOTE | 2022-01-12 19:26 | PC.NURSE ---
report received from Leanna RN - pt sitting up eating dinner. no current complaints. call celaya within reach.
[2022-01-12] MEDS: Atorvastatin Calcium 80 MG TABLET PO (21:10)
[2022-01-12] MEDS: Insulin Glargine,Hum.rec.anlog 100 UNIT/ML 10 ML VIAL 20 UNIT SUBCUT (21:10)
[2022-01-12] MEDS: traZODone HCL 100 MG TABLET 200 MG PO (21:13)
--- NOTE | 2022-01-12 21:44 | PC.NURSE ---
bedtime meds given. pt changed, claned up, and repositioned in bed. call celaya within reach. no current complaints, will continue to monitor
--- NOTE | 2022-01-13 02:40 | PC.NURSE ---
PT voided 950ml of urine via periwick
[2022-01-13] MEDS: Levothyroxine Sodium 125 MCG TABLET 250 MCG PO (05:59)
[2022-01-13] MEDS: Omeprazole 20 MG CAPSULE.DR PO ×2 (05:59→19:26)
[2022-01-13 06:00] VITALS: BP 152/85; PULSE 71; RESP 20; O2SAT 98
[2022-01-13 07:37] LABS: Glucose, Whole Blood 284 mg/dL (60-115)
[2022-01-13] MEDS: Insulin Lispro 100 UNIT/ML 3 ML VIAL SUBCUT ×3 (07:45→19:25)
[2022-01-13 08:02] VITALS: BP 152/85; PULSE 71; O2SAT 98
[2022-01-13] MEDS: FLUoxetine HCl 20 MG CAPSULE 60 MG PO (08:12)
[2022-01-13] MEDS: Buprenorphine/Naloxone 8/2 mg FILM 1 FILM SUBLINGUAL ×3 (08:12→22:26)
[2022-01-13] MEDS: predniSONE 20 MG TABLET PO ×2 (08:12→22:26)
[2022-01-13] MEDS: Loratadine 10 MG TABLET PO (08:12)
[2022-01-13] MEDS: Aspirin Enteric Coated 81 MG TABLET.DR PO (08:12)
[2022-01-13] MEDS: Lidocaine 4 % Patch ADH..PATCH 1 PATCH TRANSDERMA (08:14)
[2022-01-13] MEDS: amLODIPine Besylate 5 MG TABLET PO (08:15)
[2022-01-13] MEDS: Gabapentin 600 MG TABLET PO ×3 (08:15→22:27)
[2022-01-13] MEDS: clonazePAM 0.5 MG TABLET 0.25 MG PO (08:23)
[2022-01-13] MEDS: Acetaminophen 325 MG TABLET 650 MG PO (08:24)
[2022-01-13 13:30] LABS: Glucose, Whole Blood 262 mg/dL (60-115)
--- NOTE | 2022-01-13 19:06 | PC.NURSE ---
Pt transferred to hospital bed via draw sheet x3 staff. Pt needed to be cleaned and Purewick replaced. Pt resting comfortably in bed at this time. This RN will check pt POC and give 1630 dose of insulin that is due.
[2022-01-13 19:18] LABS: Glucose, Whole Blood 279 mg/dL (60-115)
[2022-01-13] MEDS: Atorvastatin Calcium 80 MG TABLET PO (22:26)
[2022-01-13] MEDS: traZODone HCL 100 MG TABLET 200 MG PO (22:26)
[2022-01-13] MEDS: Insulin Glargine,Hum.rec.anlog 100 UNIT/ML 10 ML VIAL 20 UNIT SUBCUT (22:27)
[2022-01-14 00:13] VITALS: BP 144/80; PULSE 68; RESP 18; O2SAT 98
[2022-01-14 07:15] LABS: Glucose, Whole Blood 301 mg/dL (60-115)
[2022-01-14] MEDS: Levothyroxine Sodium 125 MCG TABLET 250 MCG PO (07:46)
[2022-01-14] MEDS: Omeprazole 20 MG CAPSULE.DR PO ×2 (07:47→17:04)
[2022-01-14] MEDS: Insulin Lispro 100 UNIT/ML 3 ML VIAL SUBCUT ×3 (08:53→21:56)
[2022-01-14 09:05] VITALS: BP 149/81; PULSE 71; RESP 20; TEMP 36.5; O2SAT 98
--- NOTE | 2022-01-14 09:23 | MHC.CM.ED ---
Pt continues to board in ED until suitable housing or STR can be obtained. Pt w/morbid obesity and unable to physically return to apartment d/t tight stair corridors and EMS unable to make turns or fit pt through. STR barriers include body habitus (although she has lost signiifcant wt) no COVID vax and payor ([facility]). [facility] is aware of pt's return to ED and is actively working with community agencies to secure 1st floor accessible housing. Pt c/o knee pain limiting her abilty to stand, transfer and ambulate. Ortho consult remains active and pending per EMR orders. CM to follow for d/c planning.
[2022-01-14] MEDS: Buprenorphine/Naloxone 8/2 mg FILM 1 FILM SUBLINGUAL ×3 (09:56→21:57)
[2022-01-14] MEDS: Lidocaine 4 % Patch ADH..PATCH 1 PATCH TRANSDERMA (09:56)
[2022-01-14] MEDS: FLUoxetine HCl 20 MG CAPSULE 60 MG PO (09:57)
[2022-01-14] MEDS: Aspirin Enteric Coated 81 MG TABLET.DR PO (09:57)
[2022-01-14] MEDS: Loratadine 10 MG TABLET PO (09:57)
[2022-01-14] MEDS: amLODIPine Besylate 5 MG TABLET PO (09:57)
[2022-01-14] MEDS: predniSONE 20 MG TABLET PO ×2 (09:58→21:57)
[2022-01-14] MEDS: Gabapentin 600 MG TABLET PO ×3 (09:58→21:57)
[2022-01-14] MEDS: Acetaminophen 325 MG TABLET 650 MG PO (10:19)
[2022-01-14] MEDS: clonazePAM 0.5 MG TABLET 0.25 MG PO (10:20)
--- NOTE | 2022-01-14 11:48 | PC.NURSE ---
pt got a complete sponge bath, lotion applied, some skin break down on the inner thighs area but blanchable, barrier cream applied to the cocczy area, perwick back in place, pt supplied with tooth paste and tooth brush
[2022-01-14 13:34] LABS: Glucose, Whole Blood 307 mg/dL (60-115)
--- NOTE | 2022-01-14 17:05 | PC.NURSE ---
patient a&o, pure wick patient/draining, pt medicated per order, vss, will continue to monitor
[2022-01-14 19:48] LABS: Glucose, Whole Blood 289 mg/dL (60-115)
[2022-01-14] MEDS: Insulin Glargine,Hum.rec.anlog 100 UNIT/ML 10 ML VIAL 20 UNIT SUBCUT (21:57)
[2022-01-14] MEDS: Atorvastatin Calcium 80 MG TABLET PO (21:57)
[2022-01-14 22:00] VITALS: BP 162/84; PULSE 68; RESP 16; TEMP 36.8; O2SAT 94
[2022-01-14] MEDS: traZODone HCL 100 MG TABLET 200 MG PO (22:01)
[2022-01-15 06:00] VITALS: BP 142/68; PULSE 69; RESP 16; TEMP 36.7; O2SAT 96
--- NOTE | 2022-01-15 06:24 | PC.NURSE ---
PATIENT SLEPT MOST OF THE NIGHT ,PERWICK OUT PUT WAS 900 ML
[2022-01-15 07:29] LABS: Glucose, Whole Blood 416 mg/dL (60-115)
[2022-01-15] MEDS: Insulin Lispro 100 UNIT/ML 3 ML VIAL SUBCUT ×3 (08:04→18:07)
[2022-01-15] MEDS: predniSONE 20 MG TABLET PO (08:04)
[2022-01-15] MEDS: Lidocaine 4 % Patch ADH..PATCH 1 PATCH TRANSDERMA (08:04)
[2022-01-15] MEDS: Buprenorphine/Naloxone 8/2 mg FILM 1 FILM SUBLINGUAL ×3 (08:05→22:28)
[2022-01-15] MEDS: FLUoxetine HCl 20 MG CAPSULE 60 MG PO (08:05)
[2022-01-15] MEDS: Gabapentin 600 MG TABLET PO ×3 (08:05→22:32)
[2022-01-15] MEDS: amLODIPine Besylate 5 MG TABLET PO (08:05)
[2022-01-15] MEDS: Loratadine 10 MG TABLET PO (08:05)
[2022-01-15] MEDS: Aspirin Enteric Coated 81 MG TABLET.DR PO (08:06)
[2022-01-15] MEDS: Acetaminophen 325 MG TABLET 650 MG PO (08:06)
[2022-01-15] MEDS: clonazePAM 0.5 MG TABLET 0.25 MG PO (10:52)
[2022-01-15 13:53] LABS: Glucose, Whole Blood 319 mg/dL (60-115)
[2022-01-15 17:40] LABS: Glucose, Whole Blood 311 mg/dL (60-115)
[2022-01-15] MEDS: Omeprazole 20 MG CAPSULE.DR PO (18:02)
[2022-01-15 21:30] VITALS: BP 171/90; PULSE 64; RESP 16; TEMP 36.8; O2SAT 98
--- NOTE | 2022-01-15 21:31 | PC.NURSE ---
patient had help washing up ,perwick output 1000 ml ,patient ate 100 % of dinner ,drank 600 ml fluids .
[2022-01-15 21:45] LABS: Glucose, Whole Blood 343 mg/dL (60-115)
[2022-01-15] MEDS: traZODone HCL 100 MG TABLET 200 MG PO (22:31)
[2022-01-15] MEDS: Atorvastatin Calcium 80 MG TABLET PO (22:32)
[2022-01-15] MEDS: Insulin Glargine,Hum.rec.anlog 100 UNIT/ML 10 ML VIAL 20 UNIT SUBCUT (22:32)
[2022-01-16 06:00] VITALS: BP 143/76; PULSE 80; RESP 20; O2SAT 96
[2022-01-16] MEDS: Levothyroxine Sodium 125 MCG TABLET 250 MCG PO (06:17)
[2022-01-16] MEDS: Omeprazole 20 MG CAPSULE.DR PO ×2 (06:17→17:22)
--- NOTE | 2022-01-16 06:18 | PC.NURSE ---
Patient requested to be cleaned up. RN changed pads and brief, new purewick placed, suction confirmed. Patient repositioned. Patient given morning medications and water. NAD, denies needs at this time.
[2022-01-16 07:24] LABS: Glucose, Whole Blood 320 mg/dL (60-115)
[2022-01-16] MEDS: Insulin Lispro 100 UNIT/ML 3 ML VIAL SUBCUT ×3 (07:48→18:55)
[2022-01-16] MEDS: Aspirin Enteric Coated 81 MG TABLET.DR PO (08:05)
[2022-01-16] MEDS: amLODIPine Besylate 5 MG TABLET PO (08:05)
[2022-01-16] MEDS: FLUoxetine HCl 20 MG CAPSULE 60 MG PO (08:05)
[2022-01-16] MEDS: Gabapentin 600 MG TABLET PO ×3 (08:05→21:16)
[2022-01-16] MEDS: Loratadine 10 MG TABLET PO (08:05)
[2022-01-16] MEDS: Buprenorphine/Naloxone 8/2 mg FILM 1 FILM SUBLINGUAL ×3 (08:05→21:16)
[2022-01-16] MEDS: Lidocaine 4 % Patch ADH..PATCH 1 PATCH TRANSDERMA (08:05)
--- NOTE | 2022-01-16 11:12 | PC.NURSE ---
This grad nurse and tech assisted in changing pt. Pt able to roll self to either side and boost with minimal assist. Small areas of redness noted along gluteal folds and inner thighs. Barrier cream applied to prevent further breakdown. Purewick in place and suctioning/ draining appropriately. Pt tolerated moving around in bed well with no oxygen de-saturation. Pt satting 98% on room air, nasal cannula discontinued, VALVE SETTER Litzy aware.
[2022-01-16 11:59] LABS: Glucose, Whole Blood 250 mg/dL (60-115)
[2022-01-16 15:32] VITALS: BP 147/68; PULSE 70; RESP 20; TEMP 36.7; O2SAT 92
[2022-01-16 17:21] LABS: Glucose, Whole Blood 243 mg/dL (60-115)
--- NOTE | 2022-01-16 17:52 | MHC.CM.ED ---
Daily PT. Per PT notes, patient is motivated to work with therapist and has improved bed mobility, but unable to move from bed to stand. PT continues to recommend STR. Unable to obtain bed at this time secondary to body habitus, unvaccinated status, subonone use. Management aware. CM will follow for d/c needs.
[2022-01-16 19:50] VITALS: PULSE 69; O2SAT 85
--- NOTE | 2022-01-16 19:57 | PC.NURSE ---
pt resting in bed off/on sleeping, positioned upright with her head intermittently occluding her airway when asleep, pt educated that this makes her oxygen level drop and was encouraged to change position so that she can maintain O2. pt refused to change positions stating that is the only way. pt desat to 79% on RA with good pleth, pt denied any SOB/WOB or discomfort at that time. pt placed on 2lpm via NC
--- NOTE | 2022-01-16 21:07 | PC.NURSE ---
pt given bedtime snack
[2022-01-16 21:10] LABS: Glucose, Whole Blood 269 mg/dL (60-115)
[2022-01-16] MEDS: Atorvastatin Calcium 80 MG TABLET PO (21:16)
[2022-01-16] MEDS: Insulin Glargine,Hum.rec.anlog 100 UNIT/ML 10 ML VIAL 20 UNIT SUBCUT (21:16)
[2022-01-16] MEDS: traZODone HCL 100 MG TABLET 200 MG PO (21:18)
[2022-01-17 02:00] VITALS: PULSE 72; RESP 16; O2SAT 94
--- NOTE | 2022-01-17 02:45 | PC.NURSE ---
Put patient on bedpan. Changed pad on bed and cleaned patient with nurse. Appied cream on bottom.
--- NOTE | 2022-01-17 02:47 | PC.NURSE ---
pt assisted on bedpan after stating she needs to have a BM, pt given honey- care and taken off bedpan. immediatley after pt called for bed beck again as she states she was not done.
[2022-01-17 06:37] VITALS: BP 150/76; PULSE 71; RESP 18; O2SAT 100
--- NOTE | 2022-01-17 06:39 | PC.NURSE ---
pt given personal care by registered nurse teacher, pt repositioned with pillows per request. no c/o of pain or discomfort at this time
[2022-01-17] MEDS: Omeprazole 20 MG CAPSULE.DR PO ×2 (06:40→18:28)
[2022-01-17] MEDS: Levothyroxine Sodium 125 MCG TABLET 250 MCG PO (06:40)
[2022-01-17 07:21] LABS: Glucose, Whole Blood 255 mg/dL (60-115)
[2022-01-17] MEDS: Lidocaine 4 % Patch ADH..PATCH 1 PATCH TRANSDERMA (07:34)
[2022-01-17] MEDS: FLUoxetine HCl 20 MG CAPSULE 60 MG PO (07:35)
[2022-01-17] MEDS: Buprenorphine/Naloxone 8/2 mg FILM 1 FILM SUBLINGUAL ×3 (07:35→20:56)
[2022-01-17] MEDS: amLODIPine Besylate 5 MG TABLET PO (07:36)
[2022-01-17] MEDS: Gabapentin 600 MG TABLET PO ×3 (07:36→20:56)
[2022-01-17] MEDS: Loratadine 10 MG TABLET PO (07:36)
[2022-01-17] MEDS: Aspirin Enteric Coated 81 MG TABLET.DR PO (07:37)
[2022-01-17] MEDS: Acetaminophen 325 MG TABLET 650 MG PO (07:51)
[2022-01-17] MEDS: Insulin Lispro 100 UNIT/ML 3 ML VIAL SUBCUT ×3 (09:24→18:27)
[2022-01-17] MEDS: clonazePAM 0.5 MG TABLET PO (10:07)
--- NOTE | 2022-01-17 12:00 | PC.NURSE ---
pt was incontinent of feces, pt was cleaned up, given new pads. pt purewick inspected for any fecal contamination and placed back on patient. pt repositioned, pillows adjusted and given new blankets.
[2022-01-17 13:18] LABS: Glucose, Whole Blood 206 mg/dL (60-115)
[2022-01-17 13:39] VITALS: BP 99/57; PULSE 57; RESP 12; TEMP 37.1; O2SAT 98
--- NOTE | 2022-01-17 16:13 | PC.NURSE ---
Pericare done. Purewick changed. 800cc dark lacey urine emptied from urine container. Pt resting in bed.
[2022-01-17 17:44] LABS: Glucose, Whole Blood 186 mg/dL (60-115)
[2022-01-17] MEDS: Insulin Glargine,Hum.rec.anlog 100 UNIT/ML 10 ML VIAL 20 UNIT SUBCUT (20:56)
[2022-01-17] MEDS: Atorvastatin Calcium 80 MG TABLET PO (20:56)
[2022-01-17] MEDS: traZODone HCL 100 MG TABLET 200 MG PO (20:56)
[2022-01-17 21:04] VITALS: BP 133/68; PULSE 70; RESP 16; TEMP 36.6; O2SAT 98
--- NOTE | 2022-01-17 21:36 | MHC.CM.ED ---
Addendum entered by Dunia Tran 01/17/22 22:04: 130 referrals placed within 100 miles instate. CM to follow for d/c needs. Addendum entered by Dunia Tran 01/17/22 21:40: Pt continues with daily suboxone. Original Note: Pt continues to be motivated to participate in daily PT. Has improved ROM. PT to re-attempt transfer training on 01/18. PT continues to recommend STR. Pt has had significant weight loss. When first admitted on 11/12, Patient weighed 497 lbs. Pt had dietary consult. Pt currently weights 387 lbs. Total weight loss is 110 lbs. Will continue with diabetic diet and daily PT. Referrals placed within 100 miles. Pt remains unvaccinated. CM to monitor for d/c needs.
[2022-01-18] VITALS: BP 135/69; PULSE 70; TEMP 36.7; O2SAT 99
--- NOTE | 2022-01-18 00:03 | PC.NURSE ---
Pt assisted with bedpan use. Bowel movement. Purewick changed. Pt remains comfortable/calm/cooperative. Call celaya within reach. Able to make needs known. Will continue to monitor.
[2022-01-18 00:17] LABS: Glucose, Whole Blood 259 mg/dL (60-115)
[2022-01-18 06:00] VITALS: BP 134/68; PULSE 67; O2SAT 95
[2022-01-18] MEDS: Omeprazole 20 MG CAPSULE.DR PO ×2 (06:26→17:05)
[2022-01-18] MEDS: Levothyroxine Sodium 125 MCG TABLET 250 MCG PO (06:26)
[2022-01-18 07:16] LABS: Glucose, Whole Blood 199 mg/dL (60-115)
[2022-01-18] MEDS: Insulin Lispro 100 UNIT/ML 3 ML VIAL SUBCUT ×3 (07:20→17:06)
[2022-01-18] MEDS: Aspirin Enteric Coated 81 MG TABLET.DR PO (08:00)
[2022-01-18] MEDS: Buprenorphine/Naloxone 8/2 mg FILM 1 FILM SUBLINGUAL ×3 (08:11→21:57)
[2022-01-18] MEDS: amLODIPine Besylate 5 MG TABLET PO (08:12)
[2022-01-18] MEDS: FLUoxetine HCl 20 MG CAPSULE 60 MG PO (08:12)
[2022-01-18] MEDS: Gabapentin 600 MG TABLET PO ×3 (08:13→21:57)
[2022-01-18] MEDS: clonazePAM 0.5 MG TABLET PO (08:13)
[2022-01-18] MEDS: Loratadine 10 MG TABLET PO (08:13)
[2022-01-18] MEDS: Lidocaine 4 % Patch ADH..PATCH 1 PATCH TRANSDERMA (08:14)
[2022-01-18 08:17] VITALS: BP 120/57; PULSE 72; RESP 20; TEMP 36.6; O2SAT 9
[2022-01-18] MEDS: Acetaminophen 325 MG TABLET 650 MG PO (08:22)
--- NOTE | 2022-01-18 11:16 | MHC.CM.ED ---
Met with pt and her sorting livestock worker to review d/c planning needs. Pt aware of ongoing SNF search (100 mile radius) and barriers that follow. [facility] is following but at the present time, they have no female beds. Updated [facility] on pt's community suboxone prescriber, Germain Gustafson. Community assistance organization, [employer] is involved for 1st floor apt needs as pt cannot use stairs d/t body habitus and limited mobility. ED CM to follow
[2022-01-18 11:44] LABS: Glucose, Whole Blood 181 mg/dL (60-115)
[2022-01-18 14:22] VITALS: BP 129/64; PULSE 75; RESP 18; O2SAT 97
[2022-01-18 17:02] LABS: Glucose, Whole Blood 254 mg/dL (60-115)
[2022-01-18 20:21] VITALS: BP 155/75; PULSE 75; RESP 16; O2SAT 93
--- NOTE | 2022-01-18 20:54 | PC.NURSE ---
Pt was cleaned up, changed and repositioned @2054. New purewick was placed.
[2022-01-18 20:57] LABS: Glucose, Whole Blood 247 mg/dL (60-115)
[2022-01-18] MEDS: Atorvastatin Calcium 80 MG TABLET PO (21:57)
[2022-01-18] MEDS: Insulin Glargine,Hum.rec.anlog 100 UNIT/ML 10 ML VIAL 20 UNIT SUBCUT (21:58)
[2022-01-18] MEDS: traZODone HCL 100 MG TABLET 200 MG PO (22:03)
[2022-01-19 02:00] VITALS: BP 115/58; PULSE 71; RESP 16; TEMP 36.8; O2SAT 96
[2022-01-19 07:26] LABS: Glucose, Whole Blood 265 mg/dL (60-115)
[2022-01-19] MEDS: Omeprazole 20 MG CAPSULE.DR PO ×2 (07:35→16:43)
[2022-01-19] MEDS: Levothyroxine Sodium 125 MCG TABLET 250 MCG PO (07:35)
[2022-01-19] MEDS: amLODIPine Besylate 5 MG TABLET PO (07:35)
[2022-01-19] MEDS: Insulin Lispro 100 UNIT/ML 3 ML VIAL SUBCUT ×3 (07:35→18:40)
[2022-01-19] MEDS: Buprenorphine/Naloxone 8/2 mg FILM 1 FILM SUBLINGUAL ×3 (07:35→21:00)
[2022-01-19] MEDS: clonazePAM 0.5 MG TABLET PO (07:36)
[2022-01-19] MEDS: Loratadine 10 MG TABLET PO (07:36)
[2022-01-19] MEDS: FLUoxetine HCl 20 MG CAPSULE 60 MG PO (07:36)
[2022-01-19] MEDS: Aspirin Enteric Coated 81 MG TABLET.DR PO (07:36)
[2022-01-19] MEDS: Gabapentin 600 MG TABLET PO ×3 (07:36→21:00)
[2022-01-19] MEDS: Lidocaine 4 % Patch ADH..PATCH 1 PATCH TRANSDERMA (07:37)
[2022-01-19 07:44] VITALS: BP 128/60; PULSE 82; RESP 14; O2SAT 94
--- NOTE | 2022-01-19 09:18 | PC.NURSE ---
Pt is A&Ox3, c/o L knee pain which is chronic in nature. Pure wick in place, call celaya within reach. VS as charted, medicated as per MAR orders. Pt awaiting case management placement at this time. Will continue to monitor.
--- NOTE | 2022-01-19 11:04 | MHC.CM.PN ---
Addendum entered by Fe Shahid 01/19/22 11:05: FRANCISCA INFORMED PTS [facility] INDICATED THERE ARE NO FIRST FLOOR APARTMENTS AVAILABLE AT THIS TIME Original Note: FRANCISCA MET WITH PT TO OBTAIN VIDAL FOR [facility] TO SPEAK TO HER [facility] PT REPORTS SHE WAS IN A STUDIO APARTMENT THAT WAS NOT SUBSIDIZED SHE ALSO STATES THEY ARE RAISING HER RENT SHE SIGNED VIDAL AND IS AWARE OF PLAN
[2022-01-19 13:36] LABS: Glucose, Whole Blood 212 mg/dL (60-115)
[2022-01-19 14:25] LABS: TSH reflex Free T4 5.93 uIU/mL (0.32-4.0)
[2022-01-19 15:01] LABS: Free T4 (Free Thyroxine) 1.14 ng/dL (0.71-1.85)
[2022-01-19 17:09] LABS: Glucose, Whole Blood 287 mg/dL (60-115)
--- NOTE | 2022-01-19 20:18 | MHC.CM.ED ---
Addendum entered by Dunia Tran 01/19/22 20:22: Per daily PT, pt continues to be motivated and is making progress with sitting and attempts to stand. Not yet successful, but improving. CM to follow for d/c needs. Original Note: CM referred to facilities within 100 miles. No bed offers. Barriers include: unable to care for bariatric patients, unable to care for patients receiving suboxone, and unable to care for unvaccinated patients. Plan is for Dr. Kou to evaluate pt on Sunday for knee injection. CM to follow for d/c needs.
[2022-01-19] MEDS: Atorvastatin Calcium 80 MG TABLET PO (21:00)
[2022-01-19] MEDS: Insulin Glargine,Hum.rec.anlog 100 UNIT/ML 10 ML VIAL 25 UNIT SUBCUT (21:00)
[2022-01-19] MEDS: traZODone HCL 100 MG TABLET 200 MG PO (21:03)
[2022-01-20 00:18] VITALS: BP 120/67; PULSE 69; RESP 20; O2SAT 97
[2022-01-20] MEDS: Omeprazole 20 MG CAPSULE.DR PO ×2 (06:36→17:32)
[2022-01-20] MEDS: Levothyroxine Sodium 125 MCG TABLET 250 MCG PO (06:36)
[2022-01-20 07:08] LABS: Glucose, Whole Blood 242 mg/dL (60-115)
[2022-01-20] MEDS: Gabapentin 600 MG TABLET PO ×3 (07:30→21:22)
[2022-01-20] MEDS: Buprenorphine/Naloxone 8/2 mg FILM 1 FILM SUBLINGUAL ×3 (07:30→21:23)
[2022-01-20] MEDS: clonazePAM 0.5 MG TABLET PO (07:30)
[2022-01-20] MEDS: Aspirin Enteric Coated 81 MG TABLET.DR PO (07:31)
[2022-01-20] MEDS: Loratadine 10 MG TABLET PO (07:31)
[2022-01-20] MEDS: Lidocaine 4 % Patch ADH..PATCH 1 PATCH TRANSDERMA (07:31)
[2022-01-20] MEDS: FLUoxetine HCl 20 MG CAPSULE 60 MG PO (07:31)
[2022-01-20] MEDS: amLODIPine Besylate 5 MG TABLET PO (07:32)
[2022-01-20] MEDS: Insulin Lispro 100 UNIT/ML 3 ML VIAL SUBCUT ×3 (08:15→18:54)
[2022-01-20 08:44] VITALS: BP 117/66; PULSE 73; RESP 16; O2SAT 94
[2022-01-20 10:52] VITALS: BP 117/66; PULSE 73; O2SAT 94
[2022-01-20 12:20] LABS: Glucose, Whole Blood 243 mg/dL (60-115)
[2022-01-20 14:43] VITALS: RESP 15; TEMP 36.7
--- NOTE | 2022-01-20 17:33 | PC.NURSE ---
medicated per provider order, insulin pending dinner to ED.
[2022-01-20 18:25] LABS: Glucose, Whole Blood 235 mg/dL (60-115)
--- NOTE | 2022-01-20 19:12 | PC.NURSE ---
1400 ml urine collected via purwick.
[2022-01-20 21:18] VITALS: BP 141/77; PULSE 74; RESP 18; TEMP 36.6; O2SAT 97
[2022-01-20] MEDS: traZODone HCL 100 MG TABLET 200 MG PO (21:22)
[2022-01-20] MEDS: Acetaminophen 325 MG TABLET 650 MG PO (21:22)
[2022-01-20] MEDS: Atorvastatin Calcium 80 MG TABLET PO (21:23)
[2022-01-20] MEDS: Insulin Glargine,Hum.rec.anlog 100 UNIT/ML 10 ML VIAL 25 UNIT SUBCUT (21:23)
[2022-01-20 21:24] LABS: Glucose, Whole Blood 269 mg/dL (60-115)
--- NOTE | 2022-01-20 21:41 | PC.NURSE ---
pt incontinent of urine, pt changed, barrier cream applied, purewick replaced, medicated per provider order. pt requesting snack w pm meds - pt brought tuna sandwich/apple juice.
[2022-01-21 06:59] LABS: Glucose, Whole Blood 221 mg/dL (60-115)
[2022-01-21] MEDS: Insulin Lispro 100 UNIT/ML 3 ML VIAL SUBCUT ×3 (07:18→18:34)
[2022-01-21] MEDS: Omeprazole 20 MG CAPSULE.DR PO ×2 (07:18→18:35)
[2022-01-21] MEDS: Levothyroxine Sodium 125 MCG TABLET 250 MCG PO (07:18)
[2022-01-21 08:42] VITALS: BP 122/64; PULSE 69; RESP 14; O2SAT 94
[2022-01-21] MEDS: Lidocaine 4 % Patch ADH..PATCH 1 PATCH TRANSDERMA (08:43)
[2022-01-21] MEDS: Gabapentin 600 MG TABLET PO ×3 (08:44→23:13)
[2022-01-21] MEDS: Buprenorphine/Naloxone 8/2 mg FILM 1 FILM SUBLINGUAL ×3 (08:44→23:13)
[2022-01-21] MEDS: Aspirin Enteric Coated 81 MG TABLET.DR PO (08:44)
[2022-01-21] MEDS: amLODIPine Besylate 5 MG TABLET PO (08:44)
[2022-01-21] MEDS: FLUoxetine HCl 20 MG CAPSULE 60 MG PO (08:44)
[2022-01-21] MEDS: Loratadine 10 MG TABLET PO (08:44)
[2022-01-21] MEDS: clonazePAM 0.5 MG TABLET PO (08:44)
[2022-01-21 13:42] LABS: Glucose, Whole Blood 206 mg/dL (60-115)
--- NOTE | 2022-01-21 14:41 | MHC.CM.PN ---
EMR AND SNF REFERRAL REVIEWED, [facility] REPORTING THEY ARE WORKING ON BED MANAGEMNT AND WILL LET CM KNOW, NO OTHER FACILITIES SHOWING INTEREST, CM SENT [facility] MESSAGE OVER [facility] ASKING ABOUT BED AVAILABILITY, CM AWAITING RESPONSE. CM WILL CONT TO UPDATE AND FOLLOW D/C NEEDS.
[2022-01-21 16:37] VITALS: BP 134/70; PULSE 74; RESP 16; TEMP 36.6; O2SAT 98
--- NOTE | 2022-01-21 16:38 | PC.NURSE ---
PATIENT WAS GIVEN A BED BATH ,BEDDING CHANGE ,LOTION APPLY ,NEW PERWICK IN PLACE .
[2022-01-21 16:51] LABS: Glucose, Whole Blood 213 mg/dL (60-115)
--- NOTE | 2022-01-21 19:00 | PC.NURSE ---
RN assumed care of patient at this time.
[2022-01-21] MEDS: Atorvastatin Calcium 80 MG TABLET PO (23:13)
[2022-01-21] MEDS: traZODone HCL 100 MG TABLET 200 MG PO (23:13)
[2022-01-21] MEDS: Insulin Glargine,Hum.rec.anlog 100 UNIT/ML 10 ML VIAL 25 UNIT SUBCUT (23:13)
[2022-01-22] VITALS (7 sets, daily range): BP systolic 117–148; BP diastolic 55–77; PULSE 67–77; RESP 15–20; TEMP 36.3–36.9; O2SAT 92–96
[2022-01-22 00:31] LABS: Glucose, Whole Blood 245 mg/dL (60-115)
[2022-01-22 07:26] LABS: Glucose, Whole Blood 256 mg/dL (60-115)
[2022-01-22] MEDS: Levothyroxine Sodium 125 MCG TABLET 250 MCG PO (07:31)
[2022-01-22] MEDS: Omeprazole 20 MG CAPSULE.DR PO ×2 (07:31→15:38)
[2022-01-22] MEDS: Gabapentin 600 MG TABLET PO ×3 (08:19→22:24)
[2022-01-22] MEDS: clonazePAM 0.5 MG TABLET PO (08:19)
[2022-01-22] MEDS: Insulin Lispro 100 UNIT/ML 3 ML VIAL SUBCUT ×3 (08:19→18:53)
[2022-01-22] MEDS: FLUoxetine HCl 20 MG CAPSULE 60 MG PO (08:19)
[2022-01-22] MEDS: Aspirin Enteric Coated 81 MG TABLET.DR PO (08:19)
[2022-01-22] MEDS: Loratadine 10 MG TABLET PO (08:19)
[2022-01-22] MEDS: amLODIPine Besylate 5 MG TABLET PO (08:19)
[2022-01-22] MEDS: Buprenorphine/Naloxone 8/2 mg FILM 1 FILM SUBLINGUAL ×3 (08:20→22:24)
[2022-01-22] MEDS: Lidocaine 4 % Patch ADH..PATCH 1 PATCH TRANSDERMA (08:20)
--- NOTE | 2022-01-22 09:30 | PC.NURSE ---
patient a/o x4 . pearrla . lungs clear . heart rate regular at 88 beats per minute . skin warm and appropriate for ethnicity . abdomen soft non tender positive bowel sounds . patient is obese requires two assistance with bathing and repositions . patient has had a pure wick in this shift remand patent . patient is aware of plan of care .
[2022-01-22 13:45] LABS: Glucose, Whole Blood 199 mg/dL (60-115)
--- NOTE | 2022-01-22 14:00 | PC.NURSE ---
patient refused repositioning at this time . offered by staff . patient aware of plan of care .
[2022-01-22 18:49] LABS: Glucose, Whole Blood 228 mg/dL (60-115)
[2022-01-22] MEDS: traZODone HCL 100 MG TABLET 200 MG PO (22:23)
[2022-01-22] MEDS: Insulin Glargine,Hum.rec.anlog 100 UNIT/ML 10 ML VIAL 25 UNIT SUBCUT (22:24)
[2022-01-22] MEDS: Atorvastatin Calcium 80 MG TABLET PO (22:24)
[2022-01-22 22:37] LABS: Glucose, Whole Blood 250 mg/dL (60-115)
[2022-01-23] MEDS: Omeprazole 20 MG CAPSULE.DR PO ×2 (06:06→16:43)
[2022-01-23] MEDS: Levothyroxine Sodium 125 MCG TABLET 250 MCG PO (06:06)
[2022-01-23 07:12] LABS: Glucose, Whole Blood 226 mg/dL (60-115)
[2022-01-23] MEDS: Aspirin Enteric Coated 81 MG TABLET.DR PO (07:31)
[2022-01-23] MEDS: Buprenorphine/Naloxone 8/2 mg FILM 1 FILM SUBLINGUAL ×3 (07:31→20:57)
[2022-01-23] MEDS: FLUoxetine HCl 20 MG CAPSULE 60 MG PO (07:31)
[2022-01-23] MEDS: Lidocaine 4 % Patch ADH..PATCH 1 PATCH TRANSDERMA (07:31)
[2022-01-23] MEDS: amLODIPine Besylate 5 MG TABLET PO (07:32)
[2022-01-23] MEDS: Loratadine 10 MG TABLET PO (07:32)
[2022-01-23] MEDS: Insulin Lispro 100 UNIT/ML 3 ML VIAL SUBCUT ×3 (07:32→17:53)
[2022-01-23] MEDS: Gabapentin 600 MG TABLET PO ×3 (07:32→20:57)
[2022-01-23 07:40] VITALS: BP 134/66; PULSE 68; RESP 16; O2SAT 93
--- NOTE | 2022-01-23 08:57 | MHC.CM.ED ---
Addendum entered by Lynne Singh 01/23/22 15:26: Knee injection completed by Dr Hernandez today. Referral broadcasted within the state of [facility]. 227 referrals have been made. Due to weight, not being vaccinated and being Suboxone, anticipate patient will be difficult to place. Original Note: Patient remains in ER. 129 bed referrals made. No bed offers made yet. Waiting to hear from [facility] if they will be able to make a bed available today. Dr Kuo will come to ER for knee injection for pain relief. Continue to monitor for d/c needs.
[2022-01-23] MEDS: dexAMETHasone sod phosphate 4 MG/ML VIAL IVPUSH (12:28)
[2022-01-23] MEDS: Lidocaine HCl 1 % MPF 5 ML VIAL 6 ML SUBCUT (12:33)
--- NOTE | 2022-01-23 12:36 | PC.NURSE ---
Addendum entered by Sandra Silva 01/23/22 14:30: Pt alert/oriented able to make needs known. Ate breakfast/lunch. Falls asleep easily but awakes to voice. VSS. Insulin coverage per SSI. AM care provided by techs this AM. Purewick in place. Original Note: Seen by ortho for injection to left knee.
[2022-01-23 12:49] LABS: Glucose, Whole Blood 239 mg/dL (60-115)
[2022-01-23 17:15] LABS: Glucose, Whole Blood 278 mg/dL (60-115)
--- NOTE | 2022-01-23 19:00 | PC.NURSE ---
RN assumed care of patient at this time.
[2022-01-23 20:52] LABS: Glucose, Whole Blood 346 mg/dL (60-115)
[2022-01-23] MEDS: Insulin Glargine,Hum.rec.anlog 100 UNIT/ML 10 ML VIAL 25 UNIT SUBCUT (20:57)
[2022-01-23] MEDS: Atorvastatin Calcium 80 MG TABLET PO (20:57)
[2022-01-23] MEDS: traZODone HCL 100 MG TABLET 200 MG PO (20:57)
[2022-01-23 21:00] VITALS: BP 155/92; PULSE 84; RESP 18; O2SAT 92
--- NOTE | 2022-01-23 21:07 | PC.NURSE ---
Patient reported incontinence to RN. Patient changed and cleaned up by techchantal and RN. Noticed open blister on right buttock. Cleaned and dressing applied. Patient positioned left tilt with pillows to take pressure off of wound. Provider made aware.
--- NOTE | 2022-01-23 21:11 | PC.NURSE ---
PATIENT REPORT BEING INCONTINENT,CARE GIVEN BEDDING CHANGE ,NOTICE BLISTER ON RIGHT BUT CHECK ,RN TIA APPLY DRESSING ,NEW PERWICK IN PLACE .
[2022-01-24] VITALS: BP 136/76; PULSE 83; RESP 16; TEMP 36.7; O2SAT 95
[2022-01-24 06:00] VITALS: BP 135/75; PULSE 77; RESP 16; TEMP 36.8; O2SAT 95
[2022-01-24 07:06] LABS: Glucose, Whole Blood 338 mg/dL (60-115)
[2022-01-24] MEDS: Levothyroxine Sodium 125 MCG TABLET 250 MCG PO (07:19)
[2022-01-24] MEDS: Omeprazole 20 MG CAPSULE.DR PO ×2 (07:19→17:34)
[2022-01-24] MEDS: Insulin Lispro 100 UNIT/ML 3 ML VIAL SUBCUT ×3 (07:20→18:30)
[2022-01-24] MEDS: Buprenorphine/Naloxone 8/2 mg FILM 1 FILM SUBLINGUAL ×3 (09:10→22:16)
[2022-01-24] MEDS: FLUoxetine HCl 20 MG CAPSULE 60 MG PO (09:10)
[2022-01-24] MEDS: Loratadine 10 MG TABLET PO (09:10)
[2022-01-24] MEDS: Aspirin Enteric Coated 81 MG TABLET.DR PO (09:10)
[2022-01-24] MEDS: Gabapentin 600 MG TABLET PO ×3 (09:10→22:17)
[2022-01-24] MEDS: amLODIPine Besylate 5 MG TABLET PO (09:10)
[2022-01-24 09:11] VITALS: BP 128/73; PULSE 73; RESP 20; O2SAT 93
[2022-01-24] MEDS: Lidocaine 4 % Patch ADH..PATCH 1 PATCH TRANSDERMA (09:11)
--- NOTE | 2022-01-24 09:55 | PC.NURSE ---
pt received a complete sponge bath, a wound dressing on the pt's right inner thigh look in place and it was applied yesterday
[2022-01-24] MEDS: clonazePAM 0.5 MG TABLET PO (11:23)
--- NOTE | 2022-01-24 12:29 | HO.WOUNDCONS ---
History of Present Illness Data of Consult Service Date: 01/24/22 Requesting physician: Elizabeth Coffey Primary Care Provider: Unknown Physician HPI Reason for consult: Right thigh wound This is a 51-year-old female with a complicated past medical history including morbid obesity and chronic hypoxic respiratory failure, type 2 diabetes and osteoarthritis who was discharged from [facility] couple of weeks ago after her admission for treatment of edema, acute kidney injury and right hydronephrosis requiring stent placement. The initial plan had be in for transfer to a sniff but because she has elected not to undergo vaccination for COVID-19, after a course of physical therapy, she was discharged home. Transportation and lifting services were not able to get her into her 2nd floor home and ultimately she return to the emergency department for ongoing care. She reports the presence of a new wound on her right buttock and gives a prior history of pressure injury. Currently, she has no complaints of pain related to the wound. She does not give any history of acute injury to the right buttock area. Review of Systems Constitutional: Constitutional: Reports no additional constitutional complaints Cardiovascular: Cardiovascular: Denies chest pain Respiratory: Respiratory: Denies no additional respiratory complaints Musculoskeletal: Musculoskeletal: Reports muscle weakness Comments: Reports right knee pain PMFSH Medical History Bilateral edema of lower extremity Choledocholithiasis Chronic respiratory failure with hypoxia DMII (diabetes mellitus, type 2) High cholesterol HTN (hypertension) Hydronephrosis of right kidney Hydroureteronephrosis Hypothyroid Kidney stones Morbid obesity Morbid obesity Normocytic anemia Pyelonephritis Pyelonephritis UTI (urinary tract infection) Family History Mother Coronary artery disease Diabetes Surgical History No pertinent past surgical history Social History Household Members: Significant Other Household Members Other:: 2 Housing: Apartment Do you presently have visiting nurse or other home services: No Alcohol intake: current Alcohol intake frequency: a few times a month Alcohol type: beer Patient Tobacco Use Status: Current everyday Tobacco user Tobacco use type: Cigarette Cigarettes Per Day: 5 Years Smoked: 41 Second Hand Smoke Exposure: No Substance Use Type: Former Substance User Advance Directives: No Advance Directives Information Provided: No Patient : No service: No Current occupational status: unemployed Meds Allergies Allergy/AdvReac Type Severity Reaction Status Date / Time canagliflozin [From Invokana] Allergy Rash Verified 10/14/21 13:49 latex Allergy Itching Verified 10/14/21 13:49 metformin Allergy Hives Verified 10/14/21 13:49 Penicillins Allergy Rash Verified 10/14/21 13:49 sitagliptin [From Januvia] Allergy Rash Verified 10/14/21 13:49 Active Medications: Current Medications Acetaminophen (Acetaminophen 325 Mg Tablet) 650 mg PO Q6H PRN PRN Reason: Pain, Mild (Pain Scale 1-3) Last Admin: 01/20/22 21:22 Dose: 650 mg Albuterol Sulfate (Albuterol Sulfate 90 Mcg 8 Gm Inhaler) 2 puff INHALE Q4H PRN PRN Reason: wheezing Amlodipine Besylate (Amlodipine Besylate 5 Mg Tablet) 5 mg PO DAILY PENDING SALE TO [facility]; Protocol Last Admin: 01/24/22 09:10 Dose: 5 mg Aspirin (Aspirin Enteric Coated 81 Mg Tablet.Dr) 81 mg PO DAILY PENDING SALE TO [facility] Last Admin: 01/24/22 09:10 Dose: 81 mg Atorvastatin Calcium (Atorvastatin Calcium 80 Mg Tablet) 80 mg PO BEDTIME PENDING SALE TO [facility] Last Admin: 01/23/22 20:57 Dose: 80 mg Buprenorphine/Naloxone (Buprenorphine/Naloxone 8/2 Mg Film) 1 film SUBLINGUAL TID PENDING SALE TO [facility] Last Admin: 01/24/22 09:10 Dose: 1 film Clonazepam (Clonazepam 0.5 Mg Tablet) 0.5 mg PO DAILY PENDING SALE TO [facility] Last Admin: 01/24/22 11:23 Dose: 0.5 mg Docusate Sodium (Docusate Sodium 100 Mg Capsule) 100 mg PO DAILY PRN PRN Reason: constipation Fluoxetine HCl (Fluoxetine Hcl 20 Mg Capsule) 60 mg PO DAILY PENDING SALE TO [facility] Last Admin: 01/24/22 09:10 Dose: 60 mg Gabapentin (Gabapentin 600 Mg Tablet) 600 mg PO TID PENDING SALE TO [facility] Last Admin: 01/24/22 09:10 Dose: 600 mg Insulin Human Lispro (Insulin Lispro 100 Unit/Ml 3 Ml Vial) 0 unit SUBCUT TIDAC PENDING SALE TO [facility]; Protocol Last Admin: 01/24/22 07:20 Dose: 8 unit Levothyroxine Sodium (Levothyroxine Sodium 25 Mcg Tablet) 275 mcg PO DAILY PENDING SALE TO [facility] Lidocaine (Lidocaine 4 % Patch Adh..Patch) 1 patch TRANSDERMA DAILY PENDING SALE TO [facility]; Protocol Last Admin: 01/24/22 09:11 Dose: 1 patch Loratadine (Loratadine 10 Mg Tablet) 10 mg PO DAILY PENDING SALE TO [facility] Last Admin: 01/24/22 09:10 Dose: 10 mg Omeprazole (Omeprazole 20 Mg Capsule.) 20 mg PO BID@0630,1630 PENDING SALE TO [facility] Last Admin: 01/24/22 07:19 Dose: 20 mg Pharmacy Consult (Consult Rx Perform Med Rec) 1 each MISCELLANE ONCE PRN PRN Reason: Consult order Trazodone HCl (Trazodone Hcl 100 Mg Tablet) 200 mg PO BEDTIME PRN PRN Reason: Insomnia Last Admin: 01/23/22 20:57 Dose: 200 mg Home Medications Medication Instructions Recorded Confirmed Last Taken Type albuterol sulfate 90 mcg/actuation 2 puff PO Q4H PRN wheezing 08/13/21 01/10/22 11/07/21 History aerosol inhaler (ProAir HFA) aspirin 81 mg tablet,delayed 1 tab PO DAILY 08/13/21 01/10/22 11/07/21 History release atorvastatin 80 mg tablet 1 tab PO BEDTIME 08/13/21 01/10/22 11/07/21 History buprenorphine 8 mg-naloxone 2 mg 1 strip sublingual TID 08/13/21 01/10/22 11/07/21 History sublingual film (Suboxone) fluoxetine 20 mg capsule 3 cap PO DAILY 08/13/21 01/10/22 11/07/21 History gabapentin 600 mg tablet 1 tab PO TID 08/13/21 01/10/22 11/07/21 History insulin lispro 100 unit/mL 8 - 17 unit subcut TIDAC 08/13/21 01/10/22 11/07/21 History subcutaneous pen (Humalog KwikPen (U-100) Insulin) loratadine 10 mg tablet 1 tab PO DAILY 08/13/21 01/10/22 11/07/21 History omeprazole 20 mg capsule,delayed 1 cap PO BID@0630,1630 08/13/21 01/10/22 11/07/21 History release trazodone 100 mg tablet 2 tab PO BEDTIME PRN Insomnia 08/13/21 01/10/22 11/07/21 History blood sugar diagnostic (FreeStyle #10 ea 09/21/21 11/08/21 11/07/21 History Lite Strips) pen needle, diabetic 31 gauge x #1,200 ea 09/21/21 11/08/21 11/07/21 History 5/16 (UltiCare Pen Needle) clonazepam 0.5 mg tablet 0.5 tab PO DAILY PRN Anxiety 10/05/21 01/10/22 11/07/21 History insulin glargine 100 unit/mL (3 20 unit subcut BEDTIME 01/10/22 01/10/22 Unknown History mL) subcutaneous pen (Lantus Solostar U-100 Insulin) Physical Exam Vital Signs and Narrative: Vital Signs: Last Vital Signs Temp 98.2 F 01/24/22 06:00 Pulse 73 01/24/22 09:11 Resp 20 01/24/22 09:11 BP 128/73 01/24/22 09:11 Pulse Ox 93 01/24/22 09:11 O2 Del Method 01/24/22 09:11 O2 Flow Rate 2 01/20/22 00:18 BMI result Body Mass Index 64.5 Const: General: cooperative, no acute distress and alert Nutritional Appearance: obese HEENT: Head: Yes normocephalic and Yes atraumatic Eyes: General: appearance normal, both eyes and all related structures Resp: Effort & Inspection: normal respiratory effort Auscultation: clear to auscultation bilaterally Cardio: Rate: regular rate Rhythm: regular rhythm Heart sounds: no murmurs Skin: Rashes: no rashes Wounds: wounds noted (posteromedial aspect right proximal thigh, approx 1.5 cm clean, pink ) Results Labs Labs: Laboratory Results - last 24 hr 01/23/22 01/23/22 01/23/22 12:46 17:12 20:48 POC Glucose 239 H 278 H 346 H 01/24/22 07:03 POC Glucose 338 H Assessment and Plan (1) Non-pressure chronic ulcer right thigh, limited to breakdown skin: Status: Acute New partial-thickness wound posteromedial aspect right proximal thigh, etiology unclear. The wound is not an a typical pressure area. Recommend daily cleansing and application of extra thick protective cream/zinc oxide and Alevyn foam dressing. Dietary consult may be beneficial as patient reports poor protein intake secondary to limited choices of foods that appeal to her.
[2022-01-24 13:20] LABS: Glucose, Whole Blood 290 mg/dL (60-115)
[2022-01-24] MEDS: Insulin Glargine,Hum.rec.anlog 100 UNIT/ML 10 ML VIAL 28 UNIT SUBCUT (13:38)
[2022-01-24 16:51] VITALS: BP 135/71; PULSE 71; RESP 18; O2SAT 94
[2022-01-24 16:51] LABS: Glucose, Whole Blood 347 mg/dL (60-115)
[2022-01-24 18:27] LABS: Glucose, Whole Blood 379 mg/dL (60-115)
[2022-01-24 21:01] LABS: Glucose, Whole Blood 336 mg/dL (60-115)
--- NOTE | 2022-01-24 21:43 | PC.NURSE ---
Assumed care of pt. at 1900. Pt. was sleeping at that time. Pt. awake and alert at 2030, resting comfortably in bed.
[2022-01-24] MEDS: Atorvastatin Calcium 80 MG TABLET PO (22:16)
[2022-01-24] MEDS: traZODone HCL 100 MG TABLET 200 MG PO (22:17)
[2022-01-24] MEDS: Acetaminophen 325 MG TABLET 650 MG PO (22:17)
--- NOTE | 2022-01-24 22:25 | PC.NURSE ---
Pt. requesting medication (tylenol) for pain and her PRN trazadone. Medicated per AUG. Pt. resting comfortably in bed and denies any needs currently.
[2022-01-25] MEDS: Levothyroxine Sodium 125 MCG TABLET 250 MCG PO (07:02)
[2022-01-25] MEDS: Omeprazole 20 MG CAPSULE.DR PO ×2 (07:02→18:53)
[2022-01-25] MEDS: Levothyroxine Sodium 25 MCG TABLET PO (07:02)
[2022-01-25 08:40] VITALS: BP 127/72; PULSE 65; RESP 14; TEMP 36.5; O2SAT 94
[2022-01-25 08:40] LABS: Glucose, Whole Blood 260 mg/dL (60-115)
[2022-01-25] MEDS: Aspirin Enteric Coated 81 MG TABLET.DR PO (09:53)
[2022-01-25] MEDS: Gabapentin 600 MG TABLET PO ×3 (09:53→21:51)
[2022-01-25] MEDS: Loratadine 10 MG TABLET PO (09:53)
[2022-01-25] MEDS: FLUoxetine HCl 20 MG CAPSULE 60 MG PO (09:53)
[2022-01-25] MEDS: clonazePAM 0.5 MG TABLET PO (09:53)
[2022-01-25] MEDS: amLODIPine Besylate 5 MG TABLET PO (09:54)
[2022-01-25] MEDS: Buprenorphine/Naloxone 8/2 mg FILM 1 FILM SUBLINGUAL ×3 (09:54→21:50)
[2022-01-25] MEDS: Lidocaine 4 % Patch ADH..PATCH 1 PATCH TRANSDERMA (09:54)
[2022-01-25] MEDS: Insulin Lispro 100 UNIT/ML 3 ML VIAL SUBCUT ×3 (09:55→18:53)
--- NOTE | 2022-01-25 10:11 | MHC.CM.ED ---
Patient remains in ER. Received hydrocortisone injection on Sunday. Continues to work with physical therapy. Very motivated. Patient is on Suboxone at baseline. Patient is not vaccinated against Covid. Patient weighs about 385lbs. All of these make patient difficult to place. Referral has been broadcasted throughout the [facility]. Clinical updates sent to facilities still following patient: [facility], [facility], [facility], [place], [facility], [facility], [facility], [facility], [facility], [facility], [facility], [facility], [place], [place], [facility], [place], [facility], [facility], [place], Brenda, Cristina, [place], [place], [facility], [facility], [place], Rodolfo Cortez, Frank, Radha, [place] and [place], [place], [place], Genesis Abdi, [facility], [place], [facility], [place], , [place], [place], [facility] Mcneill, [facility], [place], [facility] and [place]. Continue to monitor for d/c needs.
[2022-01-25 13:22] LABS: Glucose, Whole Blood 287 mg/dL (60-115)
[2022-01-25 14:43] LABS: Glucose, Whole Blood 282 mg/dL (60-115)
[2022-01-25 18:03] LABS: Glucose, Whole Blood 274 mg/dL (60-115)
--- NOTE | 2022-01-25 18:55 | PC.NURSE ---
pt a&ox3, vss, medicated per provider order, purewick in place, unable to scan insulin due to no more labels in pyxis.
[2022-01-25 21:02] LABS: Glucose, Whole Blood 274 mg/dL (60-115)
[2022-01-25 21:48] VITALS: BP 136/75; PULSE 76; RESP 18; O2SAT 96
[2022-01-25] MEDS: Atorvastatin Calcium 80 MG TABLET PO (21:51)
[2022-01-25] MEDS: traZODone HCL 100 MG TABLET 200 MG PO (21:51)
[2022-01-25] MEDS: Acetaminophen 325 MG TABLET 650 MG PO (21:51)
--- NOTE | 2022-01-25 22:01 | PC.NURSE ---
pt a&ox3, vss, medicated per provider order, pt reporting 8/10 back pain. no new orders at this time - pt pending placement.
[2022-01-25 23:50] VITALS: BP 117/66; PULSE 74; RESP 16; TEMP 36.8; O2SAT 95
[2022-01-26 06:00] VITALS: BP 127/72; PULSE 71; RESP 16; TEMP 36.5; O2SAT 94
--- NOTE | 2022-01-26 06:32 | PC.NURSE ---
PATIENT SLEPT MOST OF NIGHT ,WOKE UP AT 4:30 AM ASK FOR COFFEE, URINE OUT PUT 700 ML.
[2022-01-26] MEDS: Omeprazole 20 MG CAPSULE.DR PO ×2 (06:43→17:19)
[2022-01-26] MEDS: Levothyroxine Sodium 25 MCG TABLET PO (06:43)
[2022-01-26] MEDS: Levothyroxine Sodium 125 MCG TABLET 250 MCG PO (06:43)
[2022-01-26 07:17] LABS: Glucose, Whole Blood 263 mg/dL (60-115)
[2022-01-26] MEDS: amLODIPine Besylate 5 MG TABLET PO (09:08)
[2022-01-26] MEDS: clonazePAM 0.5 MG TABLET PO (09:08)
[2022-01-26] MEDS: Buprenorphine/Naloxone 8/2 mg FILM 1 FILM SUBLINGUAL ×3 (09:08→21:25)
[2022-01-26] MEDS: FLUoxetine HCl 20 MG CAPSULE 60 MG PO (09:08)
[2022-01-26] MEDS: Loratadine 10 MG TABLET PO (09:08)
[2022-01-26] MEDS: Aspirin Enteric Coated 81 MG TABLET.DR PO (09:08)
[2022-01-26] MEDS: Gabapentin 600 MG TABLET PO ×3 (09:08→21:25)
[2022-01-26] MEDS: Insulin Lispro 100 UNIT/ML 3 ML VIAL SUBCUT ×3 (09:09→18:33)
[2022-01-26] MEDS: Lidocaine 4 % Patch ADH..PATCH 1 PATCH TRANSDERMA (09:09)
[2022-01-26 13:37] LABS: Glucose, Whole Blood 228 mg/dL (60-115)
[2022-01-26 18:27] LABS: Glucose, Whole Blood 278 mg/dL (60-115)
[2022-01-26 21:10] VITALS: BP 144/73; PULSE 78; TEMP 36.5; O2SAT 96
[2022-01-26 21:18] LABS: Glucose, Whole Blood 240 mg/dL (60-115)
[2022-01-26] MEDS: Insulin Glargine,Hum.rec.anlog 100 UNIT/ML 10 ML VIAL 28 UNIT SUBCUT (21:25)
[2022-01-26] MEDS: Atorvastatin Calcium 80 MG TABLET PO (21:25)
[2022-01-26] MEDS: traZODone HCL 100 MG TABLET 200 MG PO (21:31)
[2022-01-27 06:00] VITALS: BP 148/75; PULSE 75; O2SAT 91
[2022-01-27] MEDS: Omeprazole 20 MG CAPSULE.DR PO ×2 (06:34→18:11)
[2022-01-27] MEDS: Levothyroxine Sodium 25 MCG TABLET PO (06:34)
[2022-01-27] MEDS: Levothyroxine Sodium 125 MCG TABLET 250 MCG PO (06:34)
[2022-01-27 07:35] VITALS: BP 157/77; PULSE 82; RESP 19; TEMP 36.6; O2SAT 96
[2022-01-27 07:43] LABS: Glucose, Whole Blood 176 mg/dL (60-115)
[2022-01-27] MEDS: Buprenorphine/Naloxone 8/2 mg FILM 1 FILM SUBLINGUAL ×3 (08:29→21:42)
[2022-01-27] MEDS: Lidocaine 4 % Patch ADH..PATCH 1 PATCH TRANSDERMA (08:29)
[2022-01-27] MEDS: Insulin Lispro 100 UNIT/ML 3 ML VIAL SUBCUT ×3 (08:29→19:13)
[2022-01-27] MEDS: clonazePAM 0.5 MG TABLET PO (08:30)
[2022-01-27] MEDS: Loratadine 10 MG TABLET PO (08:30)
[2022-01-27] MEDS: Aspirin Enteric Coated 81 MG TABLET.DR PO (08:30)
[2022-01-27] MEDS: Gabapentin 600 MG TABLET PO ×3 (08:30→21:42)
[2022-01-27] MEDS: FLUoxetine HCl 20 MG CAPSULE 60 MG PO (08:30)
[2022-01-27] MEDS: amLODIPine Besylate 5 MG TABLET PO (08:30)
--- NOTE | 2022-01-27 08:45 | PC.NURSE ---
p a/o x 3 no sob/lennie noted. lungs - diminshed all lobes. heart sound - regular.. abd soft and n/t. speaks in full sentences. aware of plan of care.
[2022-01-27 11:15] VITALS: BP 148/77; PULSE 80; RESP 19; TEMP 36.7; O2SAT 94
[2022-01-27 11:42] VITALS: BP 148/77; PULSE 80; O2SAT 94
[2022-01-27 13:46] LABS: Glucose, Whole Blood 259 mg/dL (60-115)
--- NOTE | 2022-01-27 14:20 | MHC.CM.ED ---
Review of SNF referrals and updates: no bed offers from expansive search: [facility], [facility] and [facility] are following but have no beds. Acceptance declination reasons include: not accepting unvaccinated pts, not able to provide Suboxone, not able to accept Medicaid only. Pt continues to board in the ED awaiting SNF placement or community assistance with 1st floor housing. Call placed to Janet - nothing available at this time.
[2022-01-27 18:40] LABS: Glucose, Whole Blood 257 mg/dL (60-115)
[2022-01-27 21:41] VITALS: BP 152/75; PULSE 81; RESP 16; TEMP 36.8; O2SAT 92
[2022-01-27] MEDS: Insulin Glargine,Hum.rec.anlog 100 UNIT/ML 10 ML VIAL 28 UNIT SUBCUT (21:42)
[2022-01-27] MEDS: Atorvastatin Calcium 80 MG TABLET PO (21:42)
[2022-01-27] MEDS: traZODone HCL 100 MG TABLET 200 MG PO (21:45)
--- NOTE | 2022-01-27 21:46 | PC.NURSE ---
pt has been in nad throughout the day. pads changed after pt produced moderate hard BM. 1L urine emptied from pure wick, which has also be replaced. dsg changed today. no acute complaints offered.
[2022-01-28 06:00] VITALS: BP 171/90; PULSE 90; RESP 16; O2SAT 98
[2022-01-28] MEDS: Levothyroxine Sodium 125 MCG TABLET 250 MCG PO (06:45)
[2022-01-28] MEDS: Levothyroxine Sodium 25 MCG TABLET PO (06:45)
[2022-01-28] MEDS: Omeprazole 20 MG CAPSULE.DR PO ×2 (06:46→16:07)
[2022-01-28 07:41] LABS: Glucose, Whole Blood 233 mg/dL (60-115)
[2022-01-28] MEDS: Lidocaine 4 % Patch ADH..PATCH 1 PATCH TRANSDERMA (08:00)
[2022-01-28] MEDS: Insulin Lispro 100 UNIT/ML 3 ML VIAL SUBCUT ×3 (08:00→18:30)
[2022-01-28] MEDS: FLUoxetine HCl 20 MG CAPSULE 60 MG PO (08:00)
[2022-01-28] MEDS: Loratadine 10 MG TABLET PO (08:01)
[2022-01-28] MEDS: Buprenorphine/Naloxone 8/2 mg FILM 1 FILM SUBLINGUAL ×3 (08:01→21:23)
[2022-01-28] MEDS: Gabapentin 600 MG TABLET PO ×3 (08:01→21:23)
[2022-01-28] MEDS: clonazePAM 0.5 MG TABLET PO (08:01)
[2022-01-28] MEDS: Aspirin Enteric Coated 81 MG TABLET.DR PO (08:01)
[2022-01-28] MEDS: amLODIPine Besylate 5 MG TABLET PO (08:01)
--- NOTE | 2022-01-28 08:24 | PC.NURSE ---
patient awake/alert no c/o pain or discomfort, pure wick patient/draining, pt ate 100% of breakfast, denies pain/discomfort, vss, will continue to monitor
--- NOTE | 2022-01-28 10:38 | PC.NURSE ---
patient a&ox3, pt care performed, pt full bed change and bed bath performed, pt turned/positioned to comfort, dressing to buttocks intact, call celaya within reach, denies pain/discomfort, will continue to monitor.
[2022-01-28 13:22] LABS: Glucose, Whole Blood 238 mg/dL (60-115)
[2022-01-28 14:00] VITALS: BP 146/73; PULSE 73; RESP 18; TEMP 36.5; O2SAT 98
[2022-01-28 18:23] LABS: Glucose, Whole Blood 208 mg/dL (60-115)
--- NOTE | 2022-01-28 18:30 | PC.NURSE ---
Patient insulin was administer but it was not barcode to scan therefore RN had to complete the documentation.
[2022-01-28] MEDS: Insulin Glargine,Hum.rec.anlog 100 UNIT/ML 10 ML VIAL 28 UNIT SUBCUT (21:23)
[2022-01-28] MEDS: Atorvastatin Calcium 80 MG TABLET PO (21:23)
[2022-01-28] MEDS: Acetaminophen 325 MG TABLET 650 MG PO (22:03)
[2022-01-28] MEDS: traZODone HCL 100 MG TABLET 200 MG PO (22:03)
--- NOTE | 2022-01-29 00:17 | PC.NURSE ---
Pt. rang call celaya needing to have a bm. Placed bed beck, and cleaned pt. Also, replaced purewick. Pt. resting comforably in bed.
[2022-01-29 05:35] VITALS: RESP 18
[2022-01-29] MEDS: Omeprazole 20 MG CAPSULE.DR PO ×2 (06:50→16:50)
[2022-01-29] MEDS: Levothyroxine Sodium 25 MCG TABLET PO (06:50)
[2022-01-29] MEDS: Levothyroxine Sodium 125 MCG TABLET 250 MCG PO (06:50)
[2022-01-29 07:10] LABS: Glucose, Whole Blood 239 mg/dL (60-115)
[2022-01-29] MEDS: Insulin Lispro 100 UNIT/ML 3 ML VIAL SUBCUT ×3 (07:10→16:51)
[2022-01-29] MEDS: Lidocaine 4 % Patch ADH..PATCH 1 PATCH TRANSDERMA (09:17)
[2022-01-29] MEDS: amLODIPine Besylate 5 MG TABLET PO (09:18)
[2022-01-29] MEDS: FLUoxetine HCl 20 MG CAPSULE 60 MG PO (09:18)
[2022-01-29] MEDS: Buprenorphine/Naloxone 8/2 mg FILM 1 FILM SUBLINGUAL ×3 (09:18→21:09)
[2022-01-29] MEDS: Aspirin Enteric Coated 81 MG TABLET.DR PO (09:18)
[2022-01-29] MEDS: Gabapentin 600 MG TABLET PO ×3 (09:19→21:09)
[2022-01-29] MEDS: clonazePAM 0.5 MG TABLET PO (09:19)
[2022-01-29] MEDS: Loratadine 10 MG TABLET PO (09:19)
[2022-01-29 09:24] VITALS: BP 117/65; PULSE 79; RESP 20; TEMP 520.1; TEMP 968.2; O2SAT 95
--- NOTE | 2022-01-29 10:57 | MHC.CM.ED ---
Patient remains in ER. Continues to do well with physical therapy. Short term rehab is still being recommended. Referral has been broadcasted throughout the state [facility]. Patient has been difficult to place due to weight, not being vaccinated and on Suboxone. Clinical updates sent via [facility] to all facilities still following patient. Continue to monitor for d/c needs.
[2022-01-29 12:10] LABS: Glucose, Whole Blood 247 mg/dL (60-115)
[2022-01-29 16:37] LABS: Glucose, Whole Blood 219 mg/dL (60-115)
[2022-01-29 18:05] VITALS: RESP 18
[2022-01-29] MEDS: Atorvastatin Calcium 80 MG TABLET PO (21:09)
[2022-01-29] MEDS: traZODone HCL 100 MG TABLET 200 MG PO (21:09)
[2022-01-29] MEDS: Insulin Glargine,Hum.rec.anlog 100 UNIT/ML 10 ML VIAL 28 UNIT SUBCUT (21:10)
[2022-01-29 23:43] VITALS: BP 132/70; PULSE 71; O2SAT 91
[2022-01-30 06:00] VITALS: BP 157/85; PULSE 79; O2SAT 95
[2022-01-30] MEDS: Levothyroxine Sodium 25 MCG TABLET PO (06:32)
[2022-01-30] MEDS: Levothyroxine Sodium 125 MCG TABLET 250 MCG PO (06:32)
[2022-01-30] MEDS: Omeprazole 20 MG CAPSULE.DR PO ×2 (06:32→18:26)
[2022-01-30 07:07] LABS: Glucose, Whole Blood 207 mg/dL (60-115)
[2022-01-30] MEDS: Insulin Lispro 100 UNIT/ML 3 ML VIAL SUBCUT ×3 (07:25→18:26)
--- NOTE | 2022-01-30 09:19 | PC.NURSE ---
pt cleaned up and given full bed bath, hair washed, linens changed. baby powder and barrier cream applied.
[2022-01-30] MEDS: Buprenorphine/Naloxone 8/2 mg FILM 1 FILM SUBLINGUAL ×3 (09:20→21:39)
[2022-01-30] MEDS: Loratadine 10 MG TABLET PO (09:20)
[2022-01-30] MEDS: Aspirin Enteric Coated 81 MG TABLET.DR PO (09:20)
[2022-01-30] MEDS: clonazePAM 0.5 MG TABLET PO (09:20)
[2022-01-30] MEDS: Gabapentin 600 MG TABLET PO ×3 (09:20→21:39)
[2022-01-30] MEDS: Lidocaine 4 % Patch ADH..PATCH 1 PATCH TRANSDERMA (09:20)
[2022-01-30] MEDS: FLUoxetine HCl 20 MG CAPSULE 60 MG PO (09:21)
[2022-01-30] MEDS: amLODIPine Besylate 5 MG TABLET PO (09:21)
[2022-01-30 14:23] LABS: Glucose, Whole Blood 164 mg/dL (60-115)
[2022-01-30 18:22] LABS: Glucose, Whole Blood 169 mg/dL (60-115)
[2022-01-30 21:34] LABS: Glucose, Whole Blood 213 mg/dL (60-115)
[2022-01-30] MEDS: Insulin Glargine,Hum.rec.anlog 100 UNIT/ML 10 ML VIAL 28 UNIT SUBCUT (21:39)
[2022-01-30] MEDS: Atorvastatin Calcium 80 MG TABLET PO (21:39)
[2022-01-30] MEDS: traZODone HCL 100 MG TABLET 200 MG PO (21:44)
[2022-01-30 23:19] VITALS: BP 145/82; PULSE 76; RESP 18; O2SAT 95
--- NOTE | 2022-01-31 02:31 | PC.NURSE ---
Administered meds per MAR
[2022-01-31] MEDS: Levothyroxine Sodium 25 MCG TABLET PO (05:41)
[2022-01-31] MEDS: Levothyroxine Sodium 125 MCG TABLET 250 MCG PO (05:42)
[2022-01-31] MEDS: Omeprazole 20 MG CAPSULE.DR PO ×2 (05:42→16:40)
[2022-01-31 06:11] VITALS: BP 142/83; PULSE 74; RESP 18; O2SAT 95
[2022-01-31 07:22] LABS: Glucose, Whole Blood 207 mg/dL (60-115)
[2022-01-31] MEDS: Lidocaine 4 % Patch ADH..PATCH 1 PATCH TRANSDERMA (07:35)
[2022-01-31] MEDS: Insulin Lispro 100 UNIT/ML 3 ML VIAL SUBCUT ×3 (07:35→16:40)
[2022-01-31] MEDS: Loratadine 10 MG TABLET PO (07:36)
[2022-01-31] MEDS: Gabapentin 600 MG TABLET PO ×3 (07:36→21:20)
[2022-01-31] MEDS: Buprenorphine/Naloxone 8/2 mg FILM 1 FILM SUBLINGUAL ×3 (07:36→21:20)
[2022-01-31] MEDS: Aspirin Enteric Coated 81 MG TABLET.DR PO (07:36)
[2022-01-31] MEDS: amLODIPine Besylate 5 MG TABLET PO (07:37)
[2022-01-31] MEDS: FLUoxetine HCl 20 MG CAPSULE 60 MG PO (07:37)
--- NOTE | 2022-01-31 08:39 | PC.NURSE ---
PT TRANSFERRED TO 6, MEDICATED PRIOR TO TRANSFER
[2022-01-31] MEDS: clonazePAM 0.5 MG TABLET PO (10:16)
[2022-01-31 11:36] LABS: Glucose, Whole Blood 180 mg/dL (60-115)
[2022-01-31 11:52] VITALS: BP 134/70; PULSE 75; RESP 16; TEMP 36.9; O2SAT 93
--- NOTE | 2022-01-31 13:33 | PC.NURSE ---
Michell care provided. Skin is dry and intact. No dressing present.
--- NOTE | 2022-01-31 13:35 | PC.NURSE ---
Skin is red but intact in the buttocks area. Redness in between both thigh, and a small area of skin tear present on the right thigh.
[2022-01-31 14:05] VITALS: BP 136/70; PULSE 80; RESP 16; TEMP 36.6; O2SAT 97
--- NOTE | 2022-01-31 14:25 | MHC.CM.PN ---
CALL FROM REUBEN OF [facility] OFFICE ([phone]) NO H&P AVAILABLE FROM THIS ADMISSION AND NO PSYCH OR CARE TEAM CONSULT ON THIS ADMISSION. IF REUBEN NEEDS ADDITIONAL DOCUMENTATION, SHE WILL CALL CASE MANAGEMENT BACK REUBEN DOES SAY THAT SHE IS GOING TO GET THIS CASE ASSIGNED.
[2022-01-31 16:27] VITALS: BP 147/73; PULSE 78; RESP 16; TEMP 36.6; O2SAT 96
[2022-01-31 16:35] LABS: Glucose, Whole Blood 225 mg/dL (60-115)
[2022-01-31 21:13] LABS: Glucose, Whole Blood 229 mg/dL (60-115)
[2022-01-31] MEDS: Atorvastatin Calcium 80 MG TABLET PO (21:20)
[2022-01-31] MEDS: Insulin Glargine,Hum.rec.anlog 100 UNIT/ML 10 ML VIAL 28 UNIT SUBCUT (21:20)
[2022-01-31] MEDS: traZODone HCL 100 MG TABLET 200 MG PO (21:42)
[2022-01-31] MEDS: Acetaminophen 325 MG TABLET 650 MG PO (21:42)
[2022-01-31 21:45] VITALS: BP 141/74; PULSE 78; RESP 16; O2SAT 95
--- NOTE | 2022-01-31 22:55 | MHC.CM.PN ---
Pt continues to make progress with daily PT. Able to partially stand today. Improving with transfer. Still waiting for specialized lift on order. Pt weight: 179.3 kg =394.46 lbs. Pt has gained 8 lbs since admission. Admission weight: 175.7pa=181.9 lbs. No ed offers. CM management aware of barriers for this patient to go to [facility]. Barriers: morbid obesity, unvaccinated status and suboxone usage.
[2022-02-01 05:49] VITALS: BP 133/81; PULSE 74; RESP 18; O2SAT 92
[2022-02-01] MEDS: Levothyroxine Sodium 25 MCG TABLET PO (06:44)
[2022-02-01] MEDS: Omeprazole 20 MG CAPSULE.DR PO ×2 (06:44→17:06)
[2022-02-01] MEDS: Levothyroxine Sodium 125 MCG TABLET 250 MCG PO (06:44)
[2022-02-01 07:05] LABS: Glucose, Whole Blood 188 mg/dL (60-115)
[2022-02-01] MEDS: Insulin Lispro 100 UNIT/ML 3 ML VIAL SUBCUT ×3 (08:01→17:09)
[2022-02-01] MEDS: Loratadine 10 MG TABLET PO (08:02)
[2022-02-01] MEDS: Gabapentin 600 MG TABLET PO ×3 (08:02→21:03)
[2022-02-01] MEDS: clonazePAM 0.5 MG TABLET PO (08:02)
[2022-02-01] MEDS: Aspirin Enteric Coated 81 MG TABLET.DR PO (08:02)
[2022-02-01] MEDS: amLODIPine Besylate 5 MG TABLET PO (08:02)
[2022-02-01] MEDS: Buprenorphine/Naloxone 8/2 mg FILM 1 FILM SUBLINGUAL ×3 (08:03→21:03)
[2022-02-01] MEDS: FLUoxetine HCl 20 MG CAPSULE 60 MG PO (08:28)
[2022-02-01 11:42] VITALS: BP 133/81; PULSE 74; O2SAT 92
[2022-02-01 12:36] VITALS: BP 135/72; PULSE 76; RESP 16; TEMP 36.6; O2SAT 97
[2022-02-01 13:28] LABS: Glucose, Whole Blood 241 mg/dL (60-115)
[2022-02-01 13:51] VITALS: BP 130/77; PULSE 81; RESP 16; O2SAT 93
--- NOTE | 2022-02-01 13:52 | PC.NURSE ---
Attempt to get an accurate weight on pt. Pt unable to stand on the scale today. Will reattempt tomorrow.
[2022-02-01 16:18] VITALS: BP 125/63; PULSE 81; RESP 16; TEMP 36.6; O2SAT 95
[2022-02-01 17:00] LABS: Glucose, Whole Blood 236 mg/dL (60-115)
[2022-02-01] MEDS: Atorvastatin Calcium 80 MG TABLET PO (21:03)
[2022-02-01] MEDS: Insulin Glargine,Hum.rec.anlog 100 UNIT/ML 10 ML VIAL 28 UNIT SUBCUT (21:03)
[2022-02-01 21:11] VITALS: BP 122/68; PULSE 78; RESP 16; TEMP 36.5; O2SAT 92
[2022-02-01] MEDS: Acetaminophen 325 MG TABLET 650 MG PO (21:19)
[2022-02-01] MEDS: traZODone HCL 100 MG TABLET 200 MG PO (21:19)
--- NOTE | 2022-02-02 01:35 | PC.NURSE ---
EDT requested to obtain POC at this time as RN realizes 2100 POC was never completed prior to RN's arrival
[2022-02-02 01:43] LABS: Glucose, Whole Blood 171 mg/dL (60-115)
[2022-02-02] MEDS: Levothyroxine Sodium 25 MCG TABLET PO (06:02)
[2022-02-02] MEDS: Levothyroxine Sodium 125 MCG TABLET 250 MCG PO (06:02)
[2022-02-02] MEDS: Omeprazole 20 MG CAPSULE.DR PO ×2 (06:03→18:27)
[2022-02-02 06:50] VITALS: BP 142/72; PULSE 72; RESP 18; TEMP 37.1; O2SAT 92
[2022-02-02 07:16] LABS: Glucose, Whole Blood 205 mg/dL (60-115)
[2022-02-02 07:57] VITALS: BP 119/64; PULSE 79; RESP 20; TEMP 36.9; O2SAT 92
[2022-02-02 08:00] VITALS: BMI 66.6
[2022-02-02] MEDS: Buprenorphine/Naloxone 8/2 mg FILM 1 FILM SUBLINGUAL ×3 (09:47→21:01)
[2022-02-02] MEDS: Insulin Lispro 100 UNIT/ML 3 ML VIAL SUBCUT ×2 (09:47→18:27)
[2022-02-02] MEDS: FLUoxetine HCl 20 MG CAPSULE 60 MG PO (09:47)
[2022-02-02] MEDS: Gabapentin 600 MG TABLET PO ×3 (09:48→21:01)
[2022-02-02] MEDS: Aspirin Enteric Coated 81 MG TABLET.DR PO (09:48)
[2022-02-02] MEDS: amLODIPine Besylate 5 MG TABLET PO (09:48)
[2022-02-02] MEDS: clonazePAM 0.5 MG TABLET PO (09:48)
[2022-02-02] MEDS: Loratadine 10 MG TABLET PO (09:48)
--- NOTE | 2022-02-02 11:57 | PC.NURSE ---
VS were previously taken and is every 8 hours. POC was taken 147 no insulin coverage at this time. Pure wick in placed and draining.
[2022-02-02 12:00] LABS: Glucose, Whole Blood 147 mg/dL (60-115)
[2022-02-02 14:12] VITALS: BP 117/64; PULSE 84; RESP 17; O2SAT 92
--- NOTE | 2022-02-02 14:34 | MHC.CM.ED ---
Patient remains in ER. No bed offers made yet. T/W reached out via telephone to all facilities that have not responded in [place] [facility]. Also referred to all intermediate card tender acute rehabs an acute rehabs in [facility]. Continue to monitor for d/c needs.
--- NOTE | 2022-02-02 15:23 | PC.NURSE ---
Patient had her meds as order. Patient did not have any signs of distress.
[2022-02-02 16:38] LABS: Glucose, Whole Blood 226 mg/dL (60-115)
--- NOTE | 2022-02-02 18:09 | PC.NURSE ---
awaiting dinner to medicate patient with insulin/prilosec.
--- NOTE | 2022-02-02 19:06 | PC.NURSE ---
Patient was medicated per order, a/o x 4 and pure wick patent and draining. Call celaya is within reach.
[2022-02-02] MEDS: Acetaminophen 325 MG TABLET 650 MG PO (21:00)
[2022-02-02] MEDS: Insulin Glargine,Hum.rec.anlog 100 UNIT/ML 10 ML VIAL 28 UNIT SUBCUT (21:01)
[2022-02-02] MEDS: traZODone HCL 100 MG TABLET 200 MG PO (21:01)
[2022-02-02] MEDS: Atorvastatin Calcium 80 MG TABLET PO (21:01)
[2022-02-02 21:40] VITALS: RESP 16; O2SAT 82
[2022-02-02 21:45] VITALS: BP 108/65; PULSE 80; RESP 18; O2SAT 94
[2022-02-02 21:45] LABS: Glucose, Whole Blood 262 mg/dL (60-115)
--- NOTE | 2022-02-02 21:45 | PC.NURSE ---
pt o2 sat was in the 80s, pt was sleeping, woke to verbal stimulus, pt was coached to deep breathe, applied 2L O2 nc and patient recovered well into the 90s. pt denied shortness of breath/difficulty breathing and denies home O2 use.
--- NOTE | 2022-02-02 22:49 | PC.NURSE ---
Addendum entered by Laura Kimbrough 02/02/22 23:05: Patient reported still experiencing pain after pain meds. Provider was notified. Patient dania sykes is patent and drmarening. Original Note: Patient reports she is still hungry. Patient VS are stable, although patient was had a nasal cannula on 2L d/t her oxygen drop to 82. Patient meds were administer as order.
--- NOTE | 2022-02-02 22:55 | MHC.CM.ED ---
CM attempted to speak with patient 3 times tonight about receiving the J&J vaccine for Covid, but pt was sleeping each time. Will re-assess in the morning. No bed offers. Pt continues with daily PT. Not yet standing. 8 lb weight gain. Barriers still include: Suboxone use, morbid obesity and unvaccinated status. CM following for d/c needs.
[2022-02-03] MEDS: Acetaminophen 325 MG TABLET 650 MG PO (05:40)
[2022-02-03] MEDS: Levothyroxine Sodium 125 MCG TABLET 250 MCG PO (05:41)
[2022-02-03] MEDS: Levothyroxine Sodium 25 MCG TABLET PO (05:42)
[2022-02-03] MEDS: Omeprazole 20 MG CAPSULE.DR PO ×2 (05:42→16:48)
[2022-02-03 07:09] LABS: Glucose, Whole Blood 211 mg/dL (60-115)
[2022-02-03] MEDS: Insulin Lispro 100 UNIT/ML 3 ML VIAL SUBCUT ×3 (07:25→16:47)
[2022-02-03 08:03] VITALS: BP 118/70; PULSE 78; RESP 18; O2SAT 92
[2022-02-03 08:03] LABS: Appearance Urine Cloudy; Color Urine Yellow; Glucose Urine UA Negative (Negative); Leukocyte Esterase Urine Moderate (2+) (Negative); Nitrite Urine Positive (Negative); Specific Gravity - Urine 1.015 (1.005-1.025); Urine Blood Moderate (2+) (Negative); Urine Ketones Negative (Negative); Urine Protein 30 (1+) mg/dL (Neg-Trace)
[2022-02-03 08:14] LABS: UACC Culture Trigger YES
[2022-02-03 08:15] LABS: Bacteria Urine 4+ (None Seen); Hyaline Casts Urine 0-2 /LPF (0-2); Other Crystals Urine Present; RBC Urine >20 /HPF (0-2); Squamous Epithelial Cell Urine 0-2 /HPF (0-2)
[2022-02-03 08:29] LABS: Amphetamine Screen Urine Not Detected (Not Detect); Barbiturates, Urine Not Detected (Not Detect); Benzodiazepines Screen Urine Not Detected (Not Detect); Cannabinoid Screen Urine Not Detected (Not Detect); Cocaine Screen Urine Not Detected (Not Detect); Fentanyl, urine POSITIVE (Not Detect); Opiate Screen Urine Not Detected (Not Detect); Phencyclidine Screen Urine Not Detected (Not Detect)
--- NOTE | 2022-02-03 09:21 | MHC.CM.ED ---
Addendum entered by Lynne Melo 02/03/22 15:52: Patient continues to refuse to receive Covid vaccine. Patient states its against her sabianism. Addendum entered by Lynne Melo 02/03/22 10:17: Repeat urine tox screen is positive for fentanyl. Original Note: Patient remains in ER. Repeat tox screen was ordered yesterday. Positive for fentanyl. Patient's original tox screen was negative. Patient will not be able to be placed in any facility due to this. Jazmine Barriga, Forensic Accountant aware. Met with patient to discuss discharge planning. Accompanied by Xochitl LEDEZMA. Urine tox results discussed. Patient became upset and stated I didn't do no fucking fentanyl. You guys must have given it to me. T/W explained patient was not given fentanyl during this ER stay. Patient made aware she will not be able to be placed in any facility at this time and other discharge options must be pursued. Options include going home, going to a correction or going to a Motel. Patient stated how the fuck am I going to go up the stairs for my apartment Patient continues to deny fentanyl use. Patient became angry and started using more profanity. T/W explained conversation was ending at this time and that I would return in an hour to discuss which discharge option she will use. Received telephone call from patient's shelter advocate, Raine. Raine can be reached via telephone at [phone]. Raine stated patient reached out to her to tell her she was being kicked out of the hospital. T/W explained above situation. Raine requested additional toxicology screen. Test will be reordered. Continue to monitor for d/c needs.
[2022-02-03 10:12] LABS: Amphetamine Screen Urine Not Detected (Not Detect); Barbiturates, Urine Not Detected (Not Detect); Benzodiazepines Screen Urine Not Detected (Not Detect); Cannabinoid Screen Urine Not Detected (Not Detect); Cocaine Screen Urine Not Detected (Not Detect); Fentanyl, urine POSITIVE (Not Detect); Opiate Screen Urine Not Detected (Not Detect); Phencyclidine Screen Urine Not Detected (Not Detect)
[2022-02-03] MEDS: FLUoxetine HCl 20 MG CAPSULE 60 MG PO (10:36)
[2022-02-03] MEDS: Aspirin Enteric Coated 81 MG TABLET.DR PO (10:37)
[2022-02-03] MEDS: amLODIPine Besylate 5 MG TABLET PO (10:37)
[2022-02-03] MEDS: Loratadine 10 MG TABLET PO (10:37)
[2022-02-03] MEDS: clonazePAM 0.5 MG TABLET PO (10:37)
[2022-02-03] MEDS: Gabapentin 600 MG TABLET PO ×3 (10:38→22:11)
[2022-02-03] MEDS: Buprenorphine/Naloxone 8/2 mg FILM 1 FILM SUBLINGUAL ×3 (10:38→22:11)
--- NOTE | 2022-02-03 10:48 | MHC.CM.ED ---
Addendum entered by Lynne Melo 02/03/22 15:44: [facility] is unable to safely transport patient. Tried to book BLS transport with [facility], [facility], [facility] and [facility]. None of these agencies are able to transport patient. Tried to book bariatric chair van through [facility]. [facility] chair vans can't transport patient to the 2nd floor without an elevator. Jazmine Barriga aware. Continue to monitor for d/c needs. Original Note: Met with patient to confirm discharge plan. Patient continues to deny fentanyl use. T/W explained 2 tox screened showed differently. Patient requesting to be transferred to [facility]. T/W explained patient can't be transferred to [facility] unless there is a medical need. Patient requesting ambulance home. [facility] booked for next available. Patient, Xochitl LEDEZMA and Chino FLORES aware. Jazmine Barriga also aware.
[2022-02-03 13:38] LABS: Glucose, Whole Blood 183 mg/dL (60-115)
--- NOTE | 2022-02-03 13:53 | MHC.RECOVRN ---
Met with pt in ED14 to discuss substance use and unexpected UDS results (positive fentanyl, negative clonazepam). Pt has been prescribed Suboxone x 5-6 years and reports doing well. Pt reports last opiate use 5 months ago and has felt stable since then. T/w discussed option of ATS, pt adamantly states I haven't used, I don't need detox. Pt reports taking clonazepam as prescribed and is unsure why it would be negative. Upon further discussion, pt requesting repeat UDS which will be obtained. Discussed with RN as well as CM.
[2022-02-03 14:27] LABS: Amphetamine Screen Urine Not Detected (Not Detect); Barbiturates, Urine Not Detected (Not Detect); Benzodiazepines Screen Urine Not Detected (Not Detect); Cannabinoid Screen Urine Not Detected (Not Detect); Cocaine Screen Urine Not Detected (Not Detect); Fentanyl, urine POSITIVE (Not Detect); Opiate Screen Urine Not Detected (Not Detect); Phencyclidine Screen Urine Not Detected (Not Detect)
[2022-02-03 16:42] LABS: Glucose, Whole Blood 180 mg/dL (60-115)
[2022-02-03 18:31] VITALS: RESP 20
[2022-02-03 20:12] VITALS: BP 147/76; PULSE 89; O2SAT 93
[2022-02-03 20:16] LABS: Glucose, Whole Blood 201 mg/dL (60-115)
[2022-02-03] MEDS: Atorvastatin Calcium 80 MG TABLET PO (22:11)
[2022-02-03] MEDS: Insulin Glargine,Hum.rec.anlog 100 UNIT/ML 10 ML VIAL 28 UNIT SUBCUT (22:11)
[2022-02-03] MEDS: traZODone HCL 100 MG TABLET 200 MG PO (22:16)
[2022-02-04 05:45] VITALS: BP 132/72; PULSE 75; O2SAT 92
[2022-02-04] MEDS: Levothyroxine Sodium 25 MCG TABLET PO (05:49)
[2022-02-04] MEDS: Omeprazole 20 MG CAPSULE.DR PO ×2 (05:49→19:49)
[2022-02-04] MEDS: Levothyroxine Sodium 125 MCG TABLET 250 MCG PO (05:49)
[2022-02-04 07:16] LABS: Glucose, Whole Blood 190 mg/dL (60-115)
[2022-02-04 07:29] VITALS: BP 142/80; PULSE 88; RESP 16; O2SAT 95
[2022-02-04] MEDS: Buprenorphine/Naloxone 8/2 mg FILM 1 FILM SUBLINGUAL ×3 (07:49→21:36)
[2022-02-04] MEDS: Insulin Lispro 100 UNIT/ML 3 ML VIAL SUBCUT ×3 (07:49→19:49)
[2022-02-04] MEDS: Gabapentin 600 MG TABLET PO ×3 (07:49→21:36)
[2022-02-04] MEDS: clonazePAM 0.5 MG TABLET PO (07:50)
[2022-02-04] MEDS: Aspirin Enteric Coated 81 MG TABLET.DR PO (07:50)
[2022-02-04] MEDS: Loratadine 10 MG TABLET PO (07:50)
[2022-02-04] MEDS: amLODIPine Besylate 5 MG TABLET PO (09:27)
[2022-02-04] MEDS: FLUoxetine HCl 20 MG CAPSULE 60 MG PO (09:28)
[2022-02-04 11:17] VITALS: BP 147/66; PULSE 84; RESP 24; TEMP 36.8; O2SAT 91
[2022-02-04 13:46] LABS: Glucose, Whole Blood 175 mg/dL (60-115)
[2022-02-04 18:34] LABS: Glucose, Whole Blood 190 mg/dL (60-115)
[2022-02-04] MEDS: Atorvastatin Calcium 80 MG TABLET PO (21:36)
[2022-02-04] MEDS: Insulin Glargine,Hum.rec.anlog 100 UNIT/ML 10 ML VIAL 28 UNIT SUBCUT (21:36)
[2022-02-04 21:42] VITALS: BP 147/64; PULSE 74; RESP 16; TEMP 36.6; O2SAT 93
[2022-02-04] MEDS: traZODone HCL 100 MG TABLET 200 MG PO (21:42)
[2022-02-04] MEDS: Acetaminophen 325 MG TABLET 650 MG PO (21:42)
[2022-02-04 21:45] LABS: Glucose, Whole Blood 207 mg/dL (60-115)
--- NOTE | 2022-02-05 00:27 | PC.NURSE ---
PATIENT WAS GIVEN A BED BATH BY MYSELF AND PCT HELEN .
[2022-02-05 06:00] VITALS: BP 126/57; PULSE 84; RESP 15; TEMP 36.8; O2SAT 85
[2022-02-05 06:35] VITALS: O2SAT 94
[2022-02-05] MEDS: Levothyroxine Sodium 125 MCG TABLET 250 MCG PO (06:38)
[2022-02-05] MEDS: Omeprazole 20 MG CAPSULE.DR PO ×2 (06:38→17:23)
[2022-02-05] MEDS: Levothyroxine Sodium 25 MCG TABLET PO (06:38)
--- NOTE | 2022-02-05 06:39 | PC.NURSE ---
PATIENT SAID SHE COULD NOT URINATE ALL NIGHT ,BLADDER SCAN DONE IT WAS 356 ML IN BLADDER ,RN RACHID AWARE ,LAST NIGHT AT 11:20 PM PATIENT HAD 700 ML IN PERWICK CANISTER AND WAS ALSO INCONIENT OF URINE .
[2022-02-05 08:09] LABS: Glucose, Whole Blood 151 mg/dL (60-115)
[2022-02-05 08:19] VITALS: BP 117/68
[2022-02-05] MEDS: Insulin Lispro 100 UNIT/ML 3 ML VIAL SUBCUT ×2 (08:20→18:14)
[2022-02-05] MEDS: Buprenorphine/Naloxone 8/2 mg FILM 1 FILM SUBLINGUAL ×3 (08:20→21:03)
[2022-02-05] MEDS: clonazePAM 0.5 MG TABLET PO (08:20)
[2022-02-05] MEDS: Loratadine 10 MG TABLET PO (08:20)
[2022-02-05] MEDS: Gabapentin 600 MG TABLET PO ×3 (08:20→21:03)
[2022-02-05] MEDS: Aspirin Enteric Coated 81 MG TABLET.DR PO (08:20)
[2022-02-05] MEDS: amLODIPine Besylate 5 MG TABLET PO (08:20)
[2022-02-05] MEDS: FLUoxetine HCl 20 MG CAPSULE 60 MG PO (08:26)
[2022-02-05 11:28] LABS: Glucose, Whole Blood 142 mg/dL (60-115)
[2022-02-05 14:29] LABS: Glucose, Whole Blood 134 mg/dL (60-115)
[2022-02-05 17:51] VITALS: BP 135/69; PULSE 85; RESP 16; TEMP 36.8; O2SAT 93
[2022-02-05 17:57] LABS: Glucose, Whole Blood 153 mg/dL (60-115)
--- NOTE | 2022-02-05 18:15 | PC.NURSE ---
PT IN NAD, A& OX 3 WITH NO SIGNS OF SEDATION THROUGHOUT THE DAY, THOUGH INITIALLY TEARFUL ABOUT EVENTS OVERNIGHT. LINENS CHANGED, PT WASHED, BARRIER CREAM APPLIED. PT C/O L KNEE PAIN TODAY. MEDICATED PER EMR. AWARE OF ONGOING PLAN FOR TRANSPORT.
[2022-02-05] MEDS: Atorvastatin Calcium 80 MG TABLET PO (21:03)
[2022-02-05] MEDS: Insulin Glargine,Hum.rec.anlog 100 UNIT/ML 10 ML VIAL 28 UNIT SUBCUT (21:03)
[2022-02-05] MEDS: Acetaminophen 325 MG TABLET 650 MG PO (21:12)
[2022-02-05] MEDS: traZODone HCL 100 MG TABLET 200 MG PO (21:13)
[2022-02-06 00:01] VITALS: BP 143/74; PULSE 84; RESP 20; O2SAT 93
[2022-02-06 00:24] LABS: Glucose, Whole Blood 222 mg/dL (60-115)
[2022-02-06 04:36] VITALS: BP 138/80; PULSE 79; RESP 16; TEMP 36.6; O2SAT 95
[2022-02-06] MEDS: Levothyroxine Sodium 125 MCG TABLET 250 MCG PO (05:44)
[2022-02-06] MEDS: Levothyroxine Sodium 25 MCG TABLET PO (05:44)
[2022-02-06] MEDS: Omeprazole 20 MG CAPSULE.DR PO ×2 (05:44→17:39)
[2022-02-06 07:22] LABS: Glucose, Whole Blood 183 mg/dL (60-115)
[2022-02-06 07:27] VITALS: BP 144/81; PULSE 79; RESP 18; TEMP 36.5; O2SAT 96
[2022-02-06] MEDS: amLODIPine Besylate 5 MG TABLET PO (09:09)
[2022-02-06] MEDS: Loratadine 10 MG TABLET PO (09:10)
[2022-02-06] MEDS: Gabapentin 600 MG TABLET PO ×3 (09:10→23:23)
[2022-02-06] MEDS: Buprenorphine/Naloxone 8/2 mg FILM 1 FILM SUBLINGUAL ×3 (09:10→23:24)
[2022-02-06] MEDS: FLUoxetine HCl 20 MG CAPSULE 60 MG PO (09:10)
[2022-02-06] MEDS: Insulin Lispro 100 UNIT/ML 3 ML VIAL SUBCUT (09:10)
[2022-02-06] MEDS: Lidocaine 4 % Patch ADH..PATCH 1 PATCH TRANSDERMA (09:11)
[2022-02-06] MEDS: Aspirin Enteric Coated 81 MG TABLET.DR PO (09:12)
[2022-02-06 10:20] VITALS: BP 135/92; PULSE 92; RESP 18; TEMP 36.8; O2SAT 95
[2022-02-06 12:30] LABS: Glucose, Whole Blood 146 mg/dL (60-115)
--- NOTE | 2022-02-06 12:31 | PC.NURSE ---
alem tineo and myself cleaned pt. we put barrier cream and powder. pt was on the hover cindy and transferred to the chair. Pt is sitting comfortably and has been given call celaya and coffee
[2022-02-06 13:50] VITALS: BP 154/89; PULSE 84; RESP 18; TEMP 36.5; O2SAT 94
--- NOTE | 2022-02-06 14:45 | MHC.CM.ED ---
Patient remains in ER. BLS transport has not been able to be arranged due to patient's weight. T/W spoke with [email or web address] ambulance. No bariatric transportation available , and . Jazmine Barriga aware. Continue to monitor for d/c needs.
[2022-02-06 16:17] LABS: Glucose, Whole Blood 145 mg/dL (60-115)
[2022-02-06 18:52] LABS: Glucose, Whole Blood 177 mg/dL (60-115)
[2022-02-06] MEDS: Atorvastatin Calcium 80 MG TABLET PO (23:23)
[2022-02-06] MEDS: Acetaminophen 325 MG TABLET 650 MG PO (23:23)
[2022-02-06] MEDS: traZODone HCL 100 MG TABLET 200 MG PO (23:23)
[2022-02-06] MEDS: Insulin Glargine,Hum.rec.anlog 100 UNIT/ML 10 ML VIAL 28 UNIT SUBCUT (23:24)
[2022-02-06 23:48] VITALS: BP 142/79; PULSE 89; RESP 18; TEMP 37.1; O2SAT 94
--- NOTE | 2022-02-07 00:20 | PC.NURSE ---
Assumed care of pt. at 2300. Pt. medicated per AUG with nighttime meds and PRN trazadone and tylenol for pain over body 01/11. Pt. resting comfortably in bed. Will continue to monitor.
[2022-02-07 05:35] VITALS: BP 131/82; PULSE 83; RESP 18
[2022-02-07] MEDS: Levothyroxine Sodium 125 MCG TABLET 250 MCG PO (05:58)
[2022-02-07] MEDS: Levothyroxine Sodium 25 MCG TABLET PO (05:58)
[2022-02-07] MEDS: Omeprazole 20 MG CAPSULE.DR PO ×2 (05:58→17:52)
[2022-02-07 07:11] LABS: Glucose, Whole Blood 156 mg/dL (60-115)
[2022-02-07] MEDS: Insulin Lispro 100 UNIT/ML 3 ML VIAL SUBCUT (07:29)
[2022-02-07 08:00] VITALS: BP 140/80; PULSE 84
[2022-02-07] MEDS: Buprenorphine/Naloxone 8/2 mg FILM 1 FILM SUBLINGUAL ×3 (08:01→21:41)
[2022-02-07] MEDS: Aspirin Enteric Coated 81 MG TABLET.DR PO (08:01)
[2022-02-07] MEDS: amLODIPine Besylate 5 MG TABLET PO (08:02)
[2022-02-07] MEDS: FLUoxetine HCl 20 MG CAPSULE 60 MG PO (08:02)
[2022-02-07] MEDS: Gabapentin 600 MG TABLET PO ×3 (08:02→21:40)
[2022-02-07] MEDS: Loratadine 10 MG TABLET PO (08:04)
[2022-02-07] MEDS: Lidocaine 4 % Patch ADH..PATCH 1 PATCH TRANSDERMA (08:04)
--- NOTE | 2022-02-07 08:09 | PC.NURSE ---
pt eating breakfast. meds given as documented. vss. pt reports to this insurance underwriter that they want to kick me out of here because they said I tested positive for Fentanyl .
[2022-02-07 09:29] VITALS: BP 127/74; PULSE 82; RESP 15; TEMP 36.9; O2SAT 90
[2022-02-07 14:04] LABS: Glucose, Whole Blood 148 mg/dL (60-115)
--- NOTE | 2022-02-07 15:39 | MHC.CM.ED ---
Patient remains in ER. Still unable to secure transportation for patient. [facility] has no availibility this week. [facility] is declining to transport patient due to their safety. [facility] does not provide bariatric services. Jazmine Nesbitt, director of psychology aware. Continue to monitor for d/c needs.
[2022-02-07 17:47] LABS: Glucose, Whole Blood 135 mg/dL (60-115)
[2022-02-07 19:52] VITALS: BP 139/75; PULSE 87; O2SAT 93
[2022-02-07 20:00] LABS: Glucose, Whole Blood 182 mg/dL (60-115)
[2022-02-07] MEDS: Insulin Glargine,Hum.rec.anlog 100 UNIT/ML 10 ML VIAL 28 UNIT SUBCUT (21:40)
[2022-02-07] MEDS: Atorvastatin Calcium 80 MG TABLET PO (21:41)
[2022-02-07] MEDS: traZODone HCL 100 MG TABLET 200 MG PO (21:44)
[2022-02-08 06:00] VITALS: BP 143/78; PULSE 83; RESP 16; TEMP 36.8; O2SAT 95
[2022-02-08] MEDS: Levothyroxine Sodium 125 MCG TABLET 250 MCG PO (06:29)
[2022-02-08] MEDS: Levothyroxine Sodium 25 MCG TABLET PO (06:30)
[2022-02-08] MEDS: Omeprazole 20 MG CAPSULE.DR PO ×2 (06:30→17:39)
[2022-02-08 07:17] LABS: Glucose, Whole Blood 115 mg/dL (60-115)
--- NOTE | 2022-02-08 08:11 | PC.NURSE ---
Pt yelling out, stating she needs a residential case manager, pt also asking for a phone stating her old man is coming to visit her, explained the note in her records stating no visitors, pt questioned why and I stated because she testing positive for Fentynl in her urine. Pt became irate, began cursing at this RN, explained that was inappropriate and I am not cursing at her nor will I tolerate it. Pt continues to ask for CM, awaiting Lynne at this time. Call celaya within reach, will continue to monitor.
[2022-02-08] MEDS: FLUoxetine HCl 20 MG CAPSULE 60 MG PO (10:43)
[2022-02-08] MEDS: Lidocaine 4 % Patch ADH..PATCH 1 PATCH TRANSDERMA (10:44)
[2022-02-08] MEDS: Gabapentin 600 MG TABLET PO ×3 (10:44→21:24)
[2022-02-08] MEDS: amLODIPine Besylate 5 MG TABLET PO (10:44)
[2022-02-08] MEDS: Aspirin Enteric Coated 81 MG TABLET.DR PO (10:44)
[2022-02-08] MEDS: Loratadine 10 MG TABLET PO (10:44)
[2022-02-08] MEDS: Buprenorphine/Naloxone 8/2 mg FILM 1 FILM SUBLINGUAL ×3 (10:44→21:24)
[2022-02-08 13:39] LABS: Glucose, Whole Blood 157 mg/dL (60-115)
[2022-02-08] MEDS: Insulin Lispro 100 UNIT/ML 3 ML VIAL SUBCUT ×2 (13:42→18:39)
[2022-02-08 17:41] VITALS: BP 155/89; PULSE 86; RESP 16; O2SAT 96
[2022-02-08 18:01] LABS: Glucose, Whole Blood 162 mg/dL (60-115)
[2022-02-08 21:16] VITALS: BP 138/78; PULSE 81; O2SAT 91
[2022-02-08] MEDS: Atorvastatin Calcium 80 MG TABLET PO (21:24)
[2022-02-08 21:25] LABS: Glucose, Whole Blood 167 mg/dL (60-115)
[2022-02-08] MEDS: Insulin Glargine,Hum.rec.anlog 100 UNIT/ML 10 ML VIAL 28 UNIT SUBCUT (21:34)
[2022-02-08] MEDS: traZODone HCL 100 MG TABLET 200 MG PO (21:35)
[2022-02-08] MEDS: Acetaminophen 325 MG TABLET 650 MG PO (21:35)
[2022-02-09 06:00] VITALS: BP 148/89; PULSE 70; O2SAT 92
[2022-02-09] MEDS: Omeprazole 20 MG CAPSULE.DR PO ×2 (06:34→17:00)
[2022-02-09] MEDS: Levothyroxine Sodium 125 MCG TABLET 250 MCG PO (06:35)
[2022-02-09] MEDS: Levothyroxine Sodium 25 MCG TABLET PO (06:35)
[2022-02-09 07:07] VITALS: BP 154/85; PULSE 88; RESP 16; TEMP 36.5; O2SAT 92
[2022-02-09 07:09] LABS: Glucose, Whole Blood 134 mg/dL (60-115)
[2022-02-09] MEDS: FLUoxetine HCl 20 MG CAPSULE 60 MG PO (08:05)
[2022-02-09] MEDS: amLODIPine Besylate 5 MG TABLET PO (08:05)
[2022-02-09] MEDS: Loratadine 10 MG TABLET PO (08:05)
[2022-02-09] MEDS: Gabapentin 600 MG TABLET PO ×3 (08:06→20:11)
[2022-02-09] MEDS: Buprenorphine/Naloxone 8/2 mg FILM 1 FILM SUBLINGUAL ×3 (08:06→20:11)
[2022-02-09] MEDS: Aspirin Enteric Coated 81 MG TABLET.DR PO (08:06)
--- NOTE | 2022-02-09 11:00 | PC.NURSE ---
PT clean wash bed change
[2022-02-09 12:46] LABS: Glucose, Whole Blood 147 mg/dL (60-115)
--- NOTE | 2022-02-09 13:04 | PC.NURSE ---
washed patient hair with shampoo and style
[2022-02-09 14:05] LABS: Appearance Urine Clear; Color Urine Yellow; Glucose Urine UA Negative (Negative); Leukocyte Esterase Urine Moderate (2+) (Negative); Nitrite Urine Negative (Negative); PH 8.5 (5.0-9.0); Specific Gravity - Urine 1.015 (1.005-1.025); Urine Blood Small (1+) (Negative); Urine Ketones Negative (Negative); Urine Protein 100 (2+) mg/dL (Neg-Trace)
[2022-02-09 14:13] LABS: Bacteria Urine 2+ (None Seen); Hyaline Casts Urine 0-2 /LPF (0-2); WBC Urine >50 /HPF (0-5)
[2022-02-09 14:55] VITALS: BP 147/78; PULSE 84; RESP 16; TEMP 36.7; O2SAT 92
[2022-02-09 16:57] LABS: Glucose, Whole Blood 159 mg/dL (60-115)
[2022-02-09] MEDS: Insulin Lispro 100 UNIT/ML 3 ML VIAL SUBCUT (17:00)
[2022-02-09] MEDS: Insulin Glargine,Hum.rec.anlog 100 UNIT/ML 10 ML VIAL 28 UNIT SUBCUT (20:11)
[2022-02-09] MEDS: Atorvastatin Calcium 80 MG TABLET PO (20:11)
[2022-02-09] MEDS: traZODone HCL 100 MG TABLET 200 MG PO (20:24)
[2022-02-09 20:47] VITALS: RESP 20
[2022-02-10] MEDS: Levothyroxine Sodium 25 MCG TABLET PO (06:03)
[2022-02-10] MEDS: Omeprazole 20 MG CAPSULE.DR PO ×2 (06:03→16:28)
[2022-02-10] MEDS: Levothyroxine Sodium 125 MCG TABLET 250 MCG PO (06:04)
[2022-02-10 06:06] VITALS: BP 144/78; PULSE 85; RESP 20; O2SAT 92
[2022-02-10 06:15] VITALS: BP 157/91; PULSE 85; RESP 16; O2SAT 94
[2022-02-10 06:53] LABS: Glucose, Whole Blood 125 mg/dL (60-115)
[2022-02-10] MEDS: Buprenorphine/Naloxone 8/2 mg FILM 1 FILM SUBLINGUAL ×3 (09:39→20:59)
[2022-02-10] MEDS: amLODIPine Besylate 5 MG TABLET PO (09:39)
[2022-02-10] MEDS: Loratadine 10 MG TABLET PO (09:39)
[2022-02-10] MEDS: Gabapentin 600 MG TABLET PO ×3 (09:39→20:59)
[2022-02-10] MEDS: Aspirin Enteric Coated 81 MG TABLET.DR PO (09:39)
[2022-02-10] MEDS: FLUoxetine HCl 20 MG CAPSULE 60 MG PO (09:39)
[2022-02-10] MEDS: Lidocaine 4 % Patch ADH..PATCH 1 PATCH TRANSDERMA (09:39)
[2022-02-10 11:22] VITALS: BP 152/91; PULSE 81; RESP 18; TEMP 36.5
[2022-02-10 13:11] LABS: Glucose, Whole Blood 130 mg/dL (60-115)
[2022-02-10 17:56] LABS: Glucose, Whole Blood 166 mg/dL (60-115)
[2022-02-10] MEDS: Insulin Lispro 100 UNIT/ML 3 ML VIAL SUBCUT (18:34)
[2022-02-10 20:23] LABS: Glucose, Whole Blood 143 mg/dL (60-115)
[2022-02-10] MEDS: Acetaminophen 325 MG TABLET 650 MG PO (20:59)
[2022-02-10] MEDS: Insulin Glargine,Hum.rec.anlog 100 UNIT/ML 10 ML VIAL 28 UNIT SUBCUT (20:59)
[2022-02-10] MEDS: traZODone HCL 100 MG TABLET 200 MG PO (20:59)
[2022-02-10] MEDS: Atorvastatin Calcium 80 MG TABLET PO (21:00)
[2022-02-10 22:10] VITALS: BP 145/79; PULSE 87; RESP 16; O2SAT 94
[2022-02-11] MEDS: Levothyroxine Sodium 125 MCG TABLET 250 MCG PO (06:11)
[2022-02-11] MEDS: Levothyroxine Sodium 25 MCG TABLET PO (06:11)
[2022-02-11] MEDS: Omeprazole 20 MG CAPSULE.DR PO ×2 (06:11→16:53)
[2022-02-11 07:20] LABS: Glucose, Whole Blood 131 mg/dL (60-115)
[2022-02-11] MEDS: Loratadine 10 MG TABLET PO (09:30)
[2022-02-11] MEDS: Gabapentin 600 MG TABLET PO ×3 (09:30→21:05)
[2022-02-11] MEDS: amLODIPine Besylate 5 MG TABLET PO (09:31)
[2022-02-11] MEDS: FLUoxetine HCl 20 MG CAPSULE 60 MG PO (09:31)
[2022-02-11] MEDS: Buprenorphine/Naloxone 8/2 mg FILM 1 FILM SUBLINGUAL ×3 (09:31→21:05)
[2022-02-11] MEDS: Aspirin Enteric Coated 81 MG TABLET.DR PO (09:31)
[2022-02-11] MEDS: Lidocaine 4 % Patch ADH..PATCH 1 PATCH TRANSDERMA (09:31)
[2022-02-11 09:39] VITALS: BP 155/87; PULSE 84; RESP 18; O2SAT 96
--- NOTE | 2022-02-11 13:01 | PC.NURSE ---
pt assisted with washing up. bilateral buttocks excoriated, barrier cream applied, lotion applied to feet. no complaints.
[2022-02-11 13:38] LABS: Glucose, Whole Blood 146 mg/dL (60-115)
[2022-02-11 15:07] VITALS: BP 148/79; PULSE 83; RESP 18; O2SAT 93
[2022-02-11 18:34] LABS: Glucose, Whole Blood 153 mg/dL (60-115)
[2022-02-11] MEDS: Insulin Lispro 100 UNIT/ML 3 ML VIAL SUBCUT (18:36)
[2022-02-11 19:23] VITALS: BP 139/75; PULSE 81; RESP 16; TEMP 36.9; O2SAT 96
[2022-02-11 20:39] LABS: Glucose, Whole Blood 146 mg/dL (60-115)
[2022-02-11] MEDS: Atorvastatin Calcium 80 MG TABLET PO (21:05)
[2022-02-11] MEDS: Acetaminophen 325 MG TABLET 650 MG PO (21:07)
[2022-02-11] MEDS: traZODone HCL 100 MG TABLET 200 MG PO (21:07)
[2022-02-11] MEDS: Insulin Glargine,Hum.rec.anlog 100 UNIT/ML 10 ML VIAL 28 UNIT SUBCUT (21:20)
[2022-02-12 05:28] VITALS: BP 130/80; PULSE 91; RESP 16; TEMP 36.5; O2SAT 94
--- NOTE | 2022-02-12 05:29 | PC.NURSE ---
PATIENT WAS CHANGE CARE GIVEN AND REPOSITION BY MYSELF AND ALLISON MENDENHALL IN PLACE ,PATIENT ASK FOR COFFEE .
[2022-02-12] MEDS: Omeprazole 20 MG CAPSULE.DR PO ×2 (05:43→16:20)
[2022-02-12] MEDS: Levothyroxine Sodium 125 MCG TABLET 250 MCG PO (05:43)
[2022-02-12] MEDS: Levothyroxine Sodium 25 MCG TABLET PO (05:44)
[2022-02-12 07:06] LABS: Glucose, Whole Blood 140 mg/dL (60-115)
[2022-02-12] MEDS: Gabapentin 600 MG TABLET PO ×3 (08:14→21:03)
[2022-02-12] MEDS: Buprenorphine/Naloxone 8/2 mg FILM 1 FILM SUBLINGUAL ×3 (08:14→21:03)
[2022-02-12] MEDS: Loratadine 10 MG TABLET PO (08:14)
[2022-02-12] MEDS: Aspirin Enteric Coated 81 MG TABLET.DR PO (08:14)
[2022-02-12] MEDS: FLUoxetine HCl 20 MG CAPSULE 60 MG PO (08:15)
[2022-02-12] MEDS: amLODIPine Besylate 5 MG TABLET PO (08:15)
[2022-02-12 09:54] VITALS: BP 142/82; PULSE 81; RESP 20; TEMP 36.9; O2SAT 91
[2022-02-12] MEDS: clonazePAM 0.5 MG TABLET PO (09:56)
--- NOTE | 2022-02-12 10:33 | MHC.CM.ED ---
Pt holding in ED for placement vs return to home. Please refer to past notes for detailed information including barriers: met with pt briefly to update her on d/c plan. Pt declined to speak w/CM and avoided eye contact. CM to follow
--- NOTE | 2022-02-12 10:48 | PC.NURSE ---
Pt A&Ox4, no complaints of pain at this time. call celaya within reach, will continue to monitor.
[2022-02-12 13:15] LABS: Glucose, Whole Blood 150 mg/dL (60-115)
--- NOTE | 2022-02-12 14:46 | PC.NURSE ---
[place], link replaced and linen changed at this time. No complaints of pain, pt states she would like to have her sister, Lorena Magaña provided with updates when she calls. Phone number [phone]
[2022-02-12 18:21] LABS: Glucose, Whole Blood 136 mg/dL (60-115)
[2022-02-12 19:34] VITALS: BP 147/78; PULSE 85; RESP 18; TEMP 37; O2SAT 92
[2022-02-12 20:16] LABS: Glucose, Whole Blood 186 mg/dL (60-115)
[2022-02-12] MEDS: Atorvastatin Calcium 80 MG TABLET PO (21:03)
[2022-02-12] MEDS: Insulin Glargine,Hum.rec.anlog 100 UNIT/ML 10 ML VIAL 28 UNIT SUBCUT (21:03)
[2022-02-12] MEDS: traZODone HCL 100 MG TABLET 200 MG PO (21:03)
[2022-02-13 04:00] LABS: Glucose, Whole Blood 123 mg/dL (60-115)
[2022-02-13 06:42] VITALS: BP 140/82; PULSE 85; RESP 16; O2SAT 92
[2022-02-13] MEDS: Levothyroxine Sodium 125 MCG TABLET 250 MCG PO (06:43)
[2022-02-13] MEDS: Levothyroxine Sodium 25 MCG TABLET PO (06:43)
[2022-02-13] MEDS: Omeprazole 20 MG CAPSULE.DR PO ×2 (06:43→19:49)
[2022-02-13] MEDS: Acetaminophen 325 MG TABLET 650 MG PO (06:46)
[2022-02-13 07:07] LABS: Glucose, Whole Blood 158 mg/dL (60-115)
[2022-02-13 07:58] VITALS: BP 154/82; PULSE 79; RESP 16; TEMP 36.5; O2SAT 91
[2022-02-13] MEDS: amLODIPine Besylate 5 MG TABLET PO (09:39)
[2022-02-13] MEDS: FLUoxetine HCl 20 MG CAPSULE 60 MG PO (09:39)
[2022-02-13] MEDS: Gabapentin 600 MG TABLET PO ×3 (09:39→22:30)
[2022-02-13] MEDS: Loratadine 10 MG TABLET PO (09:39)
[2022-02-13] MEDS: clonazePAM 0.5 MG TABLET PO (09:39)
[2022-02-13] MEDS: Insulin Lispro 100 UNIT/ML 3 ML VIAL SUBCUT ×2 (09:40→19:49)
[2022-02-13] MEDS: Aspirin Enteric Coated 81 MG TABLET.DR PO (09:40)
[2022-02-13] MEDS: Buprenorphine/Naloxone 8/2 mg FILM 1 FILM SUBLINGUAL ×3 (09:40→22:30)
--- NOTE | 2022-02-13 10:00 | PC.NURSE ---
pt a/o x 4 no sob/lennie noted skin pink warm dry speaks in full setences. lungs - diminshed all lobes. heart sound regular, abd obese, soft, non-tendert, bs hypoactive all quads. pt ate 75% of breakfast. pt aware of plan of care.
[2022-02-13 11:00] VITALS: BP 154/82; PULSE 79; O2SAT 91
[2022-02-13 12:54] VITALS: BP 159/86; PULSE 82; RESP 16; TEMP 36.9; O2SAT 90
[2022-02-13 13:36] LABS: Glucose, Whole Blood 144 mg/dL (60-115)
--- NOTE | 2022-02-13 15:44 | MHC.CM.ED ---
Patient remains in ER. Patient was difficult to place due to weight, not being vaccinated and being on Suboxone. Patient was found to have a urine tox screen positive for Fentanyl. Patient will be impossible to place due to this. Jazmine Barriga, Dye Machine Tender and leadership aware. Multiple options have been investigated without success. Patient can't be transported via BLS to her apartment due to phyiscal structure of apartment, it is impossible for any crew to make the angle necessary at the top of the 2nd floor with a stretcher or chair. This was previously attempted with Daniella Nanette and Don HUDSON. Physical therapy was able to get patient to stand for about 20 secs today. Continue to monitor for d/c needs.
[2022-02-13 16:13] VITALS: BP 157/82; PULSE 82; RESP 16; O2SAT 97
[2022-02-13 18:39] LABS: Glucose, Whole Blood 177 mg/dL (60-115)
[2022-02-13 19:37] LABS: Glucose, Whole Blood 167 mg/dL (60-115)
--- NOTE | 2022-02-13 19:49 | PC.NURSE ---
Insulin not given by prev. shift. Re-checked POC and administered 2U per protocol
[2022-02-13 21:05] LABS: Glucose, Whole Blood 143 mg/dL (60-115)
[2022-02-13 22:00] VITALS: BP 168/86; PULSE 83; RESP 16; TEMP 36.6; O2SAT 95
[2022-02-13 22:25] LABS: Glucose, Whole Blood 147 mg/dL (60-115)
--- NOTE | 2022-02-13 22:26 | PC.NURSE ---
PATIENT WAS GIVEN A BED BATH BY MYSELF AND PCT HELEN ,LOTION APPLY AND SPECIAL CREAM APPLY TO LEGS ,LINEN CHANGE ,PATIENT ASK FOR A HAM SANDWICH AND COFFEE .SHE ALSO ATE 100 % OF DINNER AND DRANK 720 ML JUICE .
[2022-02-13] MEDS: Atorvastatin Calcium 80 MG TABLET PO (22:30)
[2022-02-13] MEDS: Insulin Glargine,Hum.rec.anlog 100 UNIT/ML 10 ML VIAL 28 UNIT SUBCUT (22:31)
[2022-02-13] MEDS: traZODone HCL 100 MG TABLET 200 MG PO (22:39)
[2022-02-14 05:48] VITALS: BP 148/87; PULSE 87; RESP 14; TEMP 36.6; O2SAT 91
--- NOTE | 2022-02-14 05:59 | PC.NURSE ---
Patient per wick canister empty at this time ,out put was 500 ml ,patient is awake and requested coffee and is watching television .
[2022-02-14 07:11] VITALS: BP 144/79; PULSE 83; RESP 18; TEMP 36.7; O2SAT 95
[2022-02-14 07:18] LABS: Glucose, Whole Blood 137 mg/dL (60-115)
[2022-02-14] MEDS: Levothyroxine Sodium 125 MCG TABLET 250 MCG PO (07:32)
[2022-02-14] MEDS: Levothyroxine Sodium 25 MCG TABLET PO (07:33)
[2022-02-14] MEDS: Omeprazole 20 MG CAPSULE.DR PO ×2 (07:40→19:04)
[2022-02-14] MEDS: amLODIPine Besylate 5 MG TABLET PO (08:19)
[2022-02-14] MEDS: Buprenorphine/Naloxone 8/2 mg FILM 1 FILM SUBLINGUAL ×3 (08:19→22:01)
[2022-02-14] MEDS: Aspirin Enteric Coated 81 MG TABLET.DR PO (08:19)
[2022-02-14] MEDS: FLUoxetine HCl 20 MG CAPSULE 60 MG PO (08:19)
[2022-02-14] MEDS: clonazePAM 0.5 MG TABLET PO (08:19)
[2022-02-14] MEDS: Gabapentin 600 MG TABLET PO ×3 (08:20→22:00)
[2022-02-14] MEDS: Loratadine 10 MG TABLET PO (08:20)
[2022-02-14 13:20] LABS: Glucose, Whole Blood 168 mg/dL (60-115)
[2022-02-14] MEDS: Insulin Lispro 100 UNIT/ML 3 ML VIAL SUBCUT ×2 (13:22→19:34)
--- NOTE | 2022-02-14 17:40 | MHC.CM.ED ---
Pt continues to participate in daily PT. Is unable to attain fully erect posture and was able to lift buttocks briefly off edge of bed x3 today. Barriers to STR include: morbid obesity, suboxone use, positive fentanyl drug screen in ED ( fentanyl not given in ED) and refusing all Covid vaccinations d/t presybeterian objections. PT would recommend first floor apartment. Housing options have been reviewed. Waiting lists for first floor apartments. Not an option for this patient. [facility] aware of above, as is CM administration. Pt continues to remain in ED in hospital bed, with daily PT. CM will follow for d/c planning.
[2022-02-14 19:02] LABS: Glucose, Whole Blood 160 mg/dL (60-115)
[2022-02-14] MEDS: Atorvastatin Calcium 80 MG TABLET PO (22:00)
[2022-02-14] MEDS: Insulin Glargine,Hum.rec.anlog 100 UNIT/ML 10 ML VIAL 28 UNIT SUBCUT (22:01)
[2022-02-14] MEDS: traZODone HCL 100 MG TABLET 200 MG PO (23:15)
[2022-02-15] VITALS: BP 142/79; PULSE 86; RESP 16; TEMP 36.9; O2SAT 96
[2022-02-15 04:00] VITALS: BP 160/77; PULSE 76; RESP 16; TEMP 36.8; O2SAT 93
[2022-02-15 06:00] VITALS: BP 145/81; PULSE 79; RESP 16; O2SAT 90
[2022-02-15] MEDS: Levothyroxine Sodium 25 MCG TABLET PO (06:35)
[2022-02-15] MEDS: Levothyroxine Sodium 125 MCG TABLET 250 MCG PO (06:35)
[2022-02-15] MEDS: Omeprazole 20 MG CAPSULE.DR PO ×2 (06:35→17:00)
[2022-02-15 07:07] LABS: Glucose, Whole Blood 147 mg/dL (60-115)
[2022-02-15] MEDS: amLODIPine Besylate 5 MG TABLET PO (09:24)
[2022-02-15] MEDS: Aspirin Enteric Coated 81 MG TABLET.DR PO (09:24)
[2022-02-15] MEDS: Gabapentin 600 MG TABLET PO ×3 (09:24→21:44)
[2022-02-15] MEDS: Loratadine 10 MG TABLET PO (09:24)
[2022-02-15] MEDS: clonazePAM 0.5 MG TABLET PO (09:24)
[2022-02-15] MEDS: FLUoxetine HCl 20 MG CAPSULE 60 MG PO (09:25)
[2022-02-15] MEDS: Buprenorphine/Naloxone 8/2 mg FILM 1 FILM SUBLINGUAL ×3 (09:25→21:43)
[2022-02-15 13:07] LABS: Glucose, Whole Blood 155 mg/dL (60-115)
[2022-02-15 14:12] VITALS: BP 144/77; PULSE 93; RESP 12; O2SAT 95
--- NOTE | 2022-02-15 16:03 | MHC.CM.ED ---
Late entry from 02/14/22at 16:00: Called [facility] to see if any bed was available. Left voicemail requesting return telephone call.
--- NOTE | 2022-02-15 16:28 | MHC.CM.ED ---
Spoke with Safia at [facility]. They are not able to offer a bed. Requested referral be sent to [facility] in [place]. Referral sent in [facility]. Continue to monitor for d/c needs.
[2022-02-15 16:59] LABS: Glucose, Whole Blood 207 mg/dL (60-115)
[2022-02-15] MEDS: Insulin Lispro 100 UNIT/ML 3 ML VIAL SUBCUT (18:48)
[2022-02-15 21:21] VITALS: BP 138/78; PULSE 79; TEMP 36.8; O2SAT 93
[2022-02-15] MEDS: Insulin Glargine,Hum.rec.anlog 100 UNIT/ML 10 ML VIAL 28 UNIT SUBCUT (21:43)
[2022-02-15] MEDS: Acetaminophen 325 MG TABLET 650 MG PO (21:43)
[2022-02-15] MEDS: Atorvastatin Calcium 80 MG TABLET PO (21:44)
[2022-02-15] MEDS: traZODone HCL 100 MG TABLET 200 MG PO (21:44)
[2022-02-16] MEDS: Levothyroxine Sodium 25 MCG TABLET PO (06:38)
[2022-02-16] MEDS: Levothyroxine Sodium 125 MCG TABLET 250 MCG PO (06:38)
[2022-02-16] MEDS: Omeprazole 20 MG CAPSULE.DR PO ×2 (06:38→16:19)
[2022-02-16 07:33] LABS: Glucose, Whole Blood 142 mg/dL (60-115)
[2022-02-16 08:11] VITALS: BP 155/79; PULSE 82; RESP 16; TEMP 36.8; O2SAT 95
[2022-02-16] MEDS: FLUoxetine HCl 20 MG CAPSULE 60 MG PO (09:46)
[2022-02-16] MEDS: amLODIPine Besylate 5 MG TABLET PO (09:46)
[2022-02-16] MEDS: Aspirin Enteric Coated 81 MG TABLET.DR PO (09:46)
[2022-02-16] MEDS: clonazePAM 0.5 MG TABLET PO (09:46)
[2022-02-16] MEDS: Buprenorphine/Naloxone 8/2 mg FILM 1 FILM SUBLINGUAL ×3 (09:47→21:40)
[2022-02-16] MEDS: Gabapentin 600 MG TABLET PO ×3 (09:47→21:40)
[2022-02-16] MEDS: Loratadine 10 MG TABLET PO (09:47)
--- NOTE | 2022-02-16 10:00 | PC.NURSE ---
this rn is at pt bedside pt is very tearful and states that she would like to speak to someone. pt denies any si/hi.
--- NOTE | 2022-02-16 10:05 | PC.NURSE ---
pt is a/o x 3 no sob/lennie noted skin pink warm dry speaks in full sentences. lungs - slightly diminshed al lobes. heart sound regular. pt aware of plan of care.
[2022-02-16 10:18] VITALS: BP 158/88; PULSE 89; RESP 16; O2SAT 94
--- NOTE | 2022-02-16 11:00 | PC.NURSE ---
physical therapy at bedside, pt aware of plan of care.
[2022-02-16 11:35] VITALS: BP 158/88; PULSE 89; O2SAT 94
[2022-02-16 12:17] VITALS: BP 146/76; PULSE 84; RESP 16; TEMP 37; O2SAT 96
[2022-02-16 12:51] LABS: Glucose, Whole Blood 128 mg/dL (60-115)
--- NOTE | 2022-02-16 13:40 | MHC.CARE ---
CARE Team meets with pt upon receiving a consult request from pt?s provider.? Pt is tearful throughout the visit, stating that she is experiencing elevated anxiety.? She attributes this to her receiving a reduced dosage of clonazepam, her visitation privileges being discontinued, and the state of her health.? Pt reports having supports in the community and sees a therapist regularly in her home.? CARE Team consults with Case Management and is advised they are working on placement for pt.? Pt?s visitation privileges have been revoked due to her urinalysis being positive for Fentanyl, this was an effort to preserve pt?s safety. CARE Team will attempt to reach out to pt?s therapist Ms. Jennifer Torres(sp?), through [facility] and [facility] as pt has not met with her since being in the hospital.
[2022-02-16 14:55] VITALS: BP 140/76; PULSE 89; RESP 14; TEMP 37; O2SAT 94
[2022-02-16 16:43] LABS: Glucose, Whole Blood 159 mg/dL (60-115)
[2022-02-16] MEDS: Insulin Lispro 100 UNIT/ML 3 ML VIAL SUBCUT (18:29)
[2022-02-16] MEDS: Atorvastatin Calcium 80 MG TABLET PO (21:40)
[2022-02-16] MEDS: traZODone HCL 100 MG TABLET 200 MG PO (21:40)
[2022-02-16] MEDS: Insulin Glargine,Hum.rec.anlog 100 UNIT/ML 10 ML VIAL 28 UNIT SUBCUT (21:40)
[2022-02-16 22:16] LABS: Glucose, Whole Blood 173 mg/dL (60-115)
[2022-02-17 02:00] VITALS: BP 136/64; PULSE 78; RESP 16; TEMP 36.6; O2SAT 94
[2022-02-17 04:00] VITALS: BP 153/84; PULSE 84; RESP 18; TEMP 36.7; O2SAT 94
--- NOTE | 2022-02-17 04:48 | PC.NURSE ---
Addendum entered by Safia Dumont RN 02/17/22 06:20: Patient urinated a large amount. She states she has no pressure now Original Note: Patient states she has the urge to urinate but is unable to. Bladder scan between 250-300ml. Patient states she had a straight cath earlier today. Per Dr Hanna if patient does not urinate in a few hours she may need a catheter. Will recheck bladder scan if patient does not urinate.
[2022-02-17] MEDS: Levothyroxine Sodium 125 MCG TABLET 250 MCG PO (06:14)
[2022-02-17] MEDS: Omeprazole 20 MG CAPSULE.DR PO ×2 (06:14→17:43)
[2022-02-17] MEDS: Levothyroxine Sodium 25 MCG TABLET PO (06:32)
[2022-02-17 07:28] VITALS: BP 127/65; PULSE 87; RESP 16; O2SAT 97
[2022-02-17 07:34] LABS: Glucose, Whole Blood 146 mg/dL (60-115)
[2022-02-17] MEDS: FLUoxetine HCl 20 MG CAPSULE 60 MG PO (09:03)
[2022-02-17] MEDS: Buprenorphine/Naloxone 8/2 mg FILM 1 FILM SUBLINGUAL ×3 (09:03→22:52)
[2022-02-17] MEDS: Loratadine 10 MG TABLET PO (09:04)
[2022-02-17] MEDS: Gabapentin 600 MG TABLET PO ×3 (09:04→22:52)
[2022-02-17] MEDS: clonazePAM 0.5 MG TABLET PO (09:04)
[2022-02-17] MEDS: amLODIPine Besylate 5 MG TABLET PO (09:04)
[2022-02-17] MEDS: Aspirin Enteric Coated 81 MG TABLET.DR PO (09:04)
[2022-02-17 09:28] VITALS: BP 127/65; PULSE 87; O2SAT 97
--- NOTE | 2022-02-17 09:55 | PC.NURSE ---
pt washed, linens changed, purewick changed. Wound dressing changed.
--- NOTE | 2022-02-17 09:59 | MHC.CM.ED ---
Addendum entered by Kayla Wallace 02/17/22 15:27: Received call back from Merary Henriquez at . She is requesting faxed clinical information to add pt to the extensive wait list. She notes that they [facility] (referral sent on 02/02) Information to be faxed to [phone]. Addendum entered by Kayla Wallace 02/17/22 14:57: [facility] has been in contact with CM director Merary Simeon at [facility] re: pt transfer. This CM left a message for Merary Henriquez at 2pm to give additional clinical information as well as direct fax any info she needs. Dr. Brownlee stressed to Merary Henriquez that [facility] will provide any pt specific bariatric equipment needed to eliminate any barriers they may have to acceptance. Awaiting call back at this time. Merary Henriquez's direct number [phone] Addendum entered by Kayla Wallace 02/17/22 10:42: Follow up w/[facility] week of 02/20 on ? admission ability Original Note: Call placed to admissions/screening at [facility] at [phone]. Spoke with Aida re: bariatric admission criteria for pt: has beds that can accomodate up to 500lbs but does not have adaptive equipment, ie hoyers, walk assist lifts, that can exceed 300 lbs. Informed Aida that pt has already lost significant weight and is motivated to return to home. Aida took ED CM information and will discuss pt's case w/her supervisor waterworks. ED CM offered to have medical technicians from [facility] contact her supervisor waterworks to discuss options w/bariatric equipment: Aida will relay information to her supervisor waterworks and call back if they are interested. ED CM to update [facility] administration of conversation
[2022-02-17 13:32] LABS: Glucose, Whole Blood 169 mg/dL (60-115)
[2022-02-17] MEDS: Insulin Lispro 100 UNIT/ML 3 ML VIAL SUBCUT ×2 (13:36→18:47)
[2022-02-17 14:00] VITALS: BP 149/80; PULSE 84; RESP 18; O2SAT 95
[2022-02-17 18:45] LABS: Glucose, Whole Blood 157 mg/dL (60-115)
[2022-02-17 21:08] LABS: Glucose, Whole Blood 166 mg/dL (60-115)
[2022-02-17] MEDS: Atorvastatin Calcium 80 MG TABLET PO (22:52)
[2022-02-17] MEDS: Insulin Glargine,Hum.rec.anlog 100 UNIT/ML 10 ML VIAL 28 UNIT SUBCUT (22:52)
[2022-02-17] MEDS: traZODone HCL 100 MG TABLET 200 MG PO (22:56)
[2022-02-17] MEDS: Acetaminophen 325 MG TABLET 650 MG PO (22:56)
[2022-02-17 22:58] LABS: Glucose, Whole Blood 191 mg/dL (60-115)
--- NOTE | 2022-02-17 23:05 | PC.NURSE ---
Pt washed up, new purewick in place, bed sheets changed and repositioned @4230
[2022-02-17 23:56] VITALS: BP 120/65; PULSE 73; RESP 16; TEMP 36.1; O2SAT 91
[2022-02-18 06:31] VITALS: BP 123/63; PULSE 76; RESP 15; TEMP 36.9; O2SAT 93
[2022-02-18] MEDS: Omeprazole 20 MG CAPSULE.DR PO ×2 (06:35→15:54)
[2022-02-18] MEDS: Levothyroxine Sodium 25 MCG TABLET PO (06:35)
[2022-02-18] MEDS: Levothyroxine Sodium 125 MCG TABLET 250 MCG PO (06:35)
[2022-02-18 07:12] LABS: Glucose, Whole Blood 123 mg/dL (60-115)
[2022-02-18] MEDS: Buprenorphine/Naloxone 8/2 mg FILM 1 FILM SUBLINGUAL ×3 (08:28→21:37)
[2022-02-18] MEDS: Aspirin Enteric Coated 81 MG TABLET.DR PO (08:28)
[2022-02-18] MEDS: clonazePAM 0.5 MG TABLET PO (08:28)
[2022-02-18] MEDS: Loratadine 10 MG TABLET PO (08:28)
[2022-02-18] MEDS: FLUoxetine HCl 20 MG CAPSULE 60 MG PO (08:28)
[2022-02-18] MEDS: Gabapentin 600 MG TABLET PO ×3 (08:28→21:37)
[2022-02-18] MEDS: amLODIPine Besylate 5 MG TABLET PO (08:29)
[2022-02-18 12:52] LABS: Glucose, Whole Blood 143 mg/dL (60-115)
--- NOTE | 2022-02-18 12:53 | PC.NURSE ---
pt reports feeling pressure in lower abd and feels she needs to urinate. Purewick in place and working. Re-assessed one hour later pt put out approximately 690 mL of urine via the purewick. Pt states decreased pressure feeling but still feels like she needs to urinate. Bladder scan done with only 10mL present. Will reposition pt and re-assess
[2022-02-18 19:14] LABS: Glucose, Whole Blood 117 mg/dL (60-115)
[2022-02-18] MEDS: Atorvastatin Calcium 80 MG TABLET PO (21:37)
[2022-02-18] MEDS: Insulin Glargine,Hum.rec.anlog 100 UNIT/ML 10 ML VIAL 28 UNIT SUBCUT (21:37)
[2022-02-18] MEDS: Acetaminophen 325 MG TABLET 650 MG PO (21:37)
[2022-02-18] MEDS: traZODone HCL 100 MG TABLET 200 MG PO (21:37)
[2022-02-18 21:44] LABS: Glucose, Whole Blood 156 mg/dL (60-115)
[2022-02-18 23:59] VITALS: BP 123/72; PULSE 75; RESP 16; O2SAT 93
--- NOTE | 2022-02-19 05:22 | PC.NURSE ---
Bed linen/gown changed x1 (aprox 9-10pm) Patient slept soundly the majority of the overnight. Turn-repositioned x2 pt declined 3rd attempt in morning.
[2022-02-19 06:08] VITALS: BP 144/73; PULSE 74; RESP 16; O2SAT 94
[2022-02-19] MEDS: Levothyroxine Sodium 25 MCG TABLET PO (06:35)
[2022-02-19] MEDS: Omeprazole 20 MG CAPSULE.DR PO ×2 (06:35→18:56)
[2022-02-19] MEDS: Levothyroxine Sodium 125 MCG TABLET 250 MCG PO (06:35)
[2022-02-19 07:14] VITALS: BP 153/93; PULSE 81; RESP 14; TEMP 36.6; O2SAT 93
[2022-02-19 07:23] LABS: Glucose, Whole Blood 142 mg/dL (60-115)
[2022-02-19] MEDS: Loratadine 10 MG TABLET PO (10:14)
[2022-02-19] MEDS: Buprenorphine/Naloxone 8/2 mg FILM 1 FILM SUBLINGUAL ×3 (10:14→20:28)
[2022-02-19] MEDS: Gabapentin 600 MG TABLET PO ×3 (10:14→20:27)
[2022-02-19] MEDS: Aspirin Enteric Coated 81 MG TABLET.DR PO (10:14)
[2022-02-19] MEDS: FLUoxetine HCl 20 MG CAPSULE 60 MG PO (10:14)
[2022-02-19] MEDS: clonazePAM 0.5 MG TABLET PO (10:14)
[2022-02-19] MEDS: amLODIPine Besylate 5 MG TABLET PO (10:14)
[2022-02-19 13:06] LABS: Glucose, Whole Blood 144 mg/dL (60-115)
[2022-02-19 16:49] VITALS: BP 148/79; PULSE 84; RESP 16; O2SAT 98
[2022-02-19 16:56] LABS: Glucose, Whole Blood 153 mg/dL (60-115)
[2022-02-19 18:55] LABS: Glucose, Whole Blood 148 mg/dL (60-115)
[2022-02-19] MEDS: Atorvastatin Calcium 80 MG TABLET PO (20:27)
[2022-02-19] MEDS: Acetaminophen 325 MG TABLET 650 MG PO (20:28)
[2022-02-19] MEDS: traZODone HCL 100 MG TABLET 200 MG PO (20:28)
[2022-02-19] MEDS: Insulin Glargine,Hum.rec.anlog 100 UNIT/ML 10 ML VIAL 28 UNIT SUBCUT (20:29)
[2022-02-20] VITALS: BP 142/81; PULSE 79; RESP 16; TEMP 36.6; O2SAT 94
[2022-02-20 06:00] VITALS: BP 133/70; PULSE 75; RESP 16; TEMP 37; O2SAT 94
[2022-02-20 07:23] LABS: Glucose, Whole Blood 183 mg/dL (60-115)
[2022-02-20] MEDS: Levothyroxine Sodium 125 MCG TABLET 250 MCG PO (08:38)
[2022-02-20] MEDS: clonazePAM 0.5 MG TABLET PO (08:39)
[2022-02-20] MEDS: Loratadine 10 MG TABLET PO (08:39)
[2022-02-20] MEDS: Omeprazole 20 MG CAPSULE.DR PO ×2 (08:39→17:53)
[2022-02-20] MEDS: FLUoxetine HCl 20 MG CAPSULE 60 MG PO (08:39)
[2022-02-20] MEDS: Gabapentin 600 MG TABLET PO ×3 (08:39→21:11)
[2022-02-20] MEDS: amLODIPine Besylate 5 MG TABLET PO (08:39)
[2022-02-20] MEDS: Insulin Lispro 100 UNIT/ML 3 ML VIAL SUBCUT ×2 (08:40→17:53)
[2022-02-20] MEDS: Levothyroxine Sodium 25 MCG TABLET PO (08:40)
[2022-02-20] MEDS: Aspirin Enteric Coated 81 MG TABLET.DR PO (08:40)
[2022-02-20] MEDS: Buprenorphine/Naloxone 8/2 mg FILM 1 FILM SUBLINGUAL ×3 (08:41→21:12)
[2022-02-20 09:06] VITALS: BP 135/73; PULSE 78; RESP 15; TEMP 36.7
[2022-02-20 10:34] VITALS: BP 135/73; PULSE 78
[2022-02-20 11:53] VITALS: BP 151/83; PULSE 82; RESP 14; TEMP 36.7; O2SAT 93
[2022-02-20 13:37] LABS: Glucose, Whole Blood 149 mg/dL (60-115)
[2022-02-20] MEDS: Acetaminophen 325 MG TABLET 650 MG PO ×2 (14:13→21:11)
--- NOTE | 2022-02-20 14:22 | PC.NURSE ---
Pt up with physical therpay, up at edge of bed for some time and tolerated well. Minimal pain into left knee. Pt at this time reporting sore throat and headache, [facility] aware and new orders received. Tylenol given as charted.
[2022-02-20 14:28] VITALS: BP 143/78; PULSE 72; RESP 14; TEMP 36.7; O2SAT 93
[2022-02-20 14:43] LABS: Influenza A Negative (Negative)
[2022-02-20 14:44] LABS: COVID-19 Test Negative (Negative); IDNOW Serial# 55D5AD1C; Influenza B2 Negative (Negative)
[2022-02-20 14:57] LABS: Strep A Nucleic Acid Negative (Negative)
[2022-02-20 17:50] LABS: Glucose, Whole Blood 210 mg/dL (60-115)
[2022-02-20] MEDS: traZODone HCL 100 MG TABLET 200 MG PO (21:11)
[2022-02-20] MEDS: Atorvastatin Calcium 80 MG TABLET PO (21:12)
[2022-02-20] MEDS: Insulin Glargine,Hum.rec.anlog 100 UNIT/ML 10 ML VIAL 28 UNIT SUBCUT (21:12)
--- NOTE | 2022-02-21 02:00 | PC.NURSE ---
pt a&ox3, medicated per provider order, pt given bed bath, cleaned and changed by aircraft engine technician. no new orders at this time.
[2022-02-21 04:50] VITALS: BP 144/76; PULSE 68; RESP 18; TEMP 36.3; O2SAT 93
[2022-02-21] MEDS: Levothyroxine Sodium 25 MCG TABLET PO (06:27)
[2022-02-21] MEDS: Levothyroxine Sodium 125 MCG TABLET 250 MCG PO (06:27)
[2022-02-21] MEDS: Omeprazole 20 MG CAPSULE.DR PO ×2 (06:27→16:34)
--- NOTE | 2022-02-21 06:30 | PC.NURSE ---
pt a&ox3, medicated per provider order, no new orders at this time.
[2022-02-21 07:15] LABS: Glucose, Whole Blood 163 mg/dL (60-115)
[2022-02-21] MEDS: Insulin Lispro 100 UNIT/ML 3 ML VIAL SUBCUT ×3 (07:47→18:55)
[2022-02-21 08:07] VITALS: BP 140/76; PULSE 76; RESP 18; O2SAT 94
--- NOTE | 2022-02-21 10:01 | PC.NURSE ---
assisted patient in morning bed bath. pt able to roll her self back and forth, and able to assist staff in cleaning herself, just needs help with hard to reach areas. patient pads replaced, suction canister emptied, purewick in place. barrier cream applied to patient bottom. patient pillows adjusted, patient states she is comfortable and in a good mood.
[2022-02-21] MEDS: FLUoxetine HCl 20 MG CAPSULE 60 MG PO (10:05)
[2022-02-21] MEDS: Gabapentin 600 MG TABLET PO ×3 (10:05→21:17)
[2022-02-21] MEDS: Aspirin Enteric Coated 81 MG TABLET.DR PO (10:06)
[2022-02-21] MEDS: clonazePAM 0.5 MG TABLET PO (10:06)
[2022-02-21] MEDS: Loratadine 10 MG TABLET PO (10:06)
[2022-02-21] MEDS: Buprenorphine/Naloxone 8/2 mg FILM 1 FILM SUBLINGUAL ×3 (10:06→21:18)
[2022-02-21] MEDS: amLODIPine Besylate 5 MG TABLET PO (10:06)
--- NOTE | 2022-02-21 11:41 | MHC.CM.ED ---
Patient remains in ER. No safe discharge plan has been established at this time. Jazmine Nesbitt, medical records technician aware. Continue to monitor for d/c needs.
[2022-02-21 13:45] LABS: Glucose, Whole Blood 155 mg/dL (60-115)
--- NOTE | 2022-02-21 17:55 | PC.NURSE ---
Pt A&ox4, no complaints of pain to this RN throughout shift. Pt able to turn herself side to side in bed, sits at side of bed with assist x 1, able to stand at side of bed w/PT Assist x 1. Call celaya within reach, will continue to monitor.
[2022-02-21 18:53] LABS: Glucose, Whole Blood 159 mg/dL (60-115)
[2022-02-21 20:41] VITALS: BP 150/96; PULSE 81; RESP 16; TEMP 36.5; O2SAT 95
--- NOTE | 2022-02-21 20:41 | PC.NURSE ---
PATIENT WAS INCONTINENT ,ETHAN CARE GIVEN AND LINEN CHANGE BY MYSELF AND DARIEN ALVAREZ .
[2022-02-21 20:47] LABS: Glucose, Whole Blood 214 mg/dL (60-115)
[2022-02-21] MEDS: Atorvastatin Calcium 80 MG TABLET PO (21:17)
[2022-02-21] MEDS: Insulin Glargine,Hum.rec.anlog 100 UNIT/ML 10 ML VIAL 28 UNIT SUBCUT (21:18)
[2022-02-21] MEDS: traZODone HCL 100 MG TABLET 200 MG PO (21:24)
[2022-02-21] MEDS: Acetaminophen 325 MG TABLET 650 MG PO (21:24)
--- NOTE | 2022-02-21 22:44 | MHC.CM.ED ---
Pt continues with daily PT. Motivated. Stand with assist for short intervals. Pt continues to spend most of her day in bed. Pt requesting visitors. Denied secondary to positive tox screen for fentanyl. Pt is aware. Continues to have barriers to STR placement. Administration aware.
[2022-02-22] MEDS: Levothyroxine Sodium 125 MCG TABLET 250 MCG PO (06:04)
[2022-02-22] MEDS: Levothyroxine Sodium 25 MCG TABLET PO (06:04)
[2022-02-22] MEDS: Omeprazole 20 MG CAPSULE.DR PO ×2 (06:05→16:23)
[2022-02-22 06:08] VITALS: BP 143/83; PULSE 78; RESP 18; O2SAT 96
[2022-02-22 07:09] VITALS: BP 142/79; PULSE 73; RESP 18; TEMP 36.4; O2SAT 92
[2022-02-22 07:13] LABS: Glucose, Whole Blood 117 mg/dL (60-115)
[2022-02-22] MEDS: Gabapentin 600 MG TABLET PO ×3 (08:05→20:58)
[2022-02-22] MEDS: FLUoxetine HCl 20 MG CAPSULE 60 MG PO (08:05)
[2022-02-22] MEDS: Buprenorphine/Naloxone 8/2 mg FILM 1 FILM SUBLINGUAL ×3 (08:05→20:58)
[2022-02-22] MEDS: clonazePAM 0.5 MG TABLET PO (08:06)
[2022-02-22] MEDS: Loratadine 10 MG TABLET PO (08:06)
[2022-02-22] MEDS: amLODIPine Besylate 5 MG TABLET PO (08:06)
[2022-02-22] MEDS: Aspirin Enteric Coated 81 MG TABLET.DR PO (08:06)
[2022-02-22 10:30] VITALS: BP 146/73; PULSE 76; RESP 16; O2SAT 91
--- NOTE | 2022-02-22 11:00 | PC.NURSE ---
pt seen by physial therapist, pt aware of plan of care.
[2022-02-22 11:54] VITALS: BP 146/73; PULSE 76; O2SAT 91
[2022-02-22 12:07] LABS: Glucose, Whole Blood 133 mg/dL (60-115)
[2022-02-22 15:30] VITALS: BMI 62.1
[2022-02-22 16:22] VITALS: BP 155/80; PULSE 76; RESP 12; O2SAT 95
[2022-02-22 17:41] LABS: Glucose, Whole Blood 178 mg/dL (60-115)
[2022-02-22 17:49] VITALS: BP 158/87; PULSE 75; RESP 20; TEMP 36.6; O2SAT 94
--- NOTE | 2022-02-22 18:04 | MHC.CM.ED ---
Addendum entered by Dunia Tran 02/22/22 18:37: Pt has a Junior Chair and bariatric commode. Original Note: Pt continues to make steady progress with pt. One assist and attempts to standing with walker. Pt current weight is 169.4 tg=657.8 lbs. Pt has lost 22 lbs since arrival in ED. Risa=dgmervin from [facility] has requested clinicals. They do not have a bed for bariatric patients yet, but are working on renovating a room at their facility. Will follow patient. Clinicals sent. Per Dajuan, facility aware that bariatric equipment at [facility] can go with the patient. CM to follow for d/c planning.
--- NOTE | 2022-02-22 18:35 | PC.NURSE ---
erlinda ventura just arrived to unit.
[2022-02-22] MEDS: Insulin Lispro 100 UNIT/ML 3 ML VIAL SUBCUT (18:45)
[2022-02-22] MEDS: Acetaminophen 325 MG TABLET 650 MG PO (20:58)
[2022-02-22] MEDS: Atorvastatin Calcium 80 MG TABLET PO (20:58)
[2022-02-22] MEDS: traZODone HCL 100 MG TABLET 200 MG PO (20:58)
[2022-02-22] MEDS: Insulin Glargine,Hum.rec.anlog 100 UNIT/ML 10 ML VIAL 28 UNIT SUBCUT (20:58)
[2022-02-23 00:14] VITALS: BP 146/74; PULSE 74; RESP 15; TEMP 36.5; O2SAT 89
[2022-02-23 00:29] LABS: Glucose, Whole Blood 171 mg/dL (60-115)
[2022-02-23 06:31] VITALS: BP 140/76; PULSE 73; RESP 15; TEMP 36.4; O2SAT 93
[2022-02-23] MEDS: Levothyroxine Sodium 25 MCG TABLET PO (06:56)
[2022-02-23] MEDS: Levothyroxine Sodium 125 MCG TABLET 250 MCG PO (06:56)
[2022-02-23] MEDS: Omeprazole 20 MG CAPSULE.DR PO ×2 (06:56→17:13)
[2022-02-23] MEDS: Acetaminophen 325 MG TABLET 650 MG PO ×2 (06:56→20:37)
[2022-02-23 07:08] LABS: Glucose, Whole Blood 143 mg/dL (60-115)
[2022-02-23 07:43] VITALS: BP 135/62; PULSE 70; RESP 16; TEMP 36.4; O2SAT 95
[2022-02-23 10:46] VITALS: BP 154/80; PULSE 74; RESP 16; TEMP 36.5; O2SAT 94
[2022-02-23 10:49] VITALS: BP 154/80; PULSE 74; O2SAT 94
[2022-02-23] MEDS: Gabapentin 600 MG TABLET PO ×3 (10:55→20:35)
[2022-02-23] MEDS: Aspirin Enteric Coated 81 MG TABLET.DR PO (10:55)
[2022-02-23] MEDS: amLODIPine Besylate 5 MG TABLET PO (10:55)
[2022-02-23] MEDS: FLUoxetine HCl 20 MG CAPSULE 60 MG PO (10:55)
[2022-02-23] MEDS: Loratadine 10 MG TABLET PO (10:55)
[2022-02-23] MEDS: Buprenorphine/Naloxone 8/2 mg FILM 1 FILM SUBLINGUAL ×3 (10:55→20:35)
[2022-02-23 12:44] LABS: Glucose, Whole Blood 123 mg/dL (60-115)
[2022-02-23 15:26] VITALS: BP 169/80; PULSE 85; RESP 18; O2SAT 90
[2022-02-23 18:37] LABS: Glucose, Whole Blood 185 mg/dL (60-115)
[2022-02-23] MEDS: Insulin Lispro 100 UNIT/ML 3 ML VIAL SUBCUT (18:48)
[2022-02-23] MEDS: clonazePAM 0.5 MG TABLET PO (18:49)
[2022-02-23] MEDS: Insulin Glargine,Hum.rec.anlog 100 UNIT/ML 10 ML VIAL 28 UNIT SUBCUT (20:34)
[2022-02-23] MEDS: Atorvastatin Calcium 80 MG TABLET PO (20:35)
[2022-02-23] MEDS: traZODone HCL 100 MG TABLET 200 MG PO (20:37)
[2022-02-24 03:33] VITALS: BP 127/61; PULSE 76; RESP 14; TEMP 36.3; O2SAT 92
[2022-02-24 03:41] LABS: Glucose, Whole Blood 166 mg/dL (60-115)
[2022-02-24] MEDS: Levothyroxine Sodium 25 MCG TABLET PO (05:30)
[2022-02-24] MEDS: Omeprazole 20 MG CAPSULE.DR PO ×2 (05:30→16:08)
[2022-02-24] MEDS: Levothyroxine Sodium 125 MCG TABLET 250 MCG PO (05:30)
--- NOTE | 2022-02-24 06:16 | PC.NURSE ---
PT SOILED WITH STOOL. PT GIVEN BED BATH AND PAD AND PURE WICK CHANGED
[2022-02-24 07:21] LABS: Glucose, Whole Blood 155 mg/dL (60-115)
[2022-02-24 08:36] VITALS: BP 130/68; PULSE 78; RESP 16; O2SAT 96
[2022-02-24] MEDS: Buprenorphine/Naloxone 8/2 mg FILM 1 FILM SUBLINGUAL ×3 (08:56→21:37)
[2022-02-24] MEDS: Loratadine 10 MG TABLET PO (08:56)
[2022-02-24] MEDS: Aspirin Enteric Coated 81 MG TABLET.DR PO (08:56)
[2022-02-24] MEDS: FLUoxetine HCl 20 MG CAPSULE 60 MG PO (08:56)
[2022-02-24] MEDS: amLODIPine Besylate 5 MG TABLET PO (08:56)
[2022-02-24] MEDS: Gabapentin 600 MG TABLET PO ×3 (08:56→21:36)
[2022-02-24] MEDS: clonazePAM 0.5 MG TABLET PO (08:56)
--- NOTE | 2022-02-24 12:05 | PC.NURSE ---
Pt stating she is in good spirits today, feeling very motivated after working with PT this am. Ate breakfast, got self ready. Linens changed.
[2022-02-24 12:07] LABS: Glucose, Whole Blood 164 mg/dL (60-115)
[2022-02-24 17:15] LABS: Glucose, Whole Blood 157 mg/dL (60-115)
[2022-02-24] MEDS: Insulin Glargine,Hum.rec.anlog 100 UNIT/ML 10 ML VIAL 28 UNIT SUBCUT (21:36)
[2022-02-24] MEDS: traZODone HCL 100 MG TABLET 200 MG PO (21:36)
[2022-02-24] MEDS: Atorvastatin Calcium 80 MG TABLET PO (21:36)
[2022-02-24] MEDS: Acetaminophen 325 MG TABLET 650 MG PO (21:36)
--- NOTE | 2022-02-24 21:47 | PC.NURSE ---
Pt cleaned up @2029, new lines and purewick in place.
[2022-02-24 22:18] LABS: Glucose, Whole Blood 182 mg/dL (60-115)
[2022-02-25] MEDS: Levothyroxine Sodium 25 MCG TABLET PO (05:38)
[2022-02-25] MEDS: Levothyroxine Sodium 125 MCG TABLET 250 MCG PO (05:39)
[2022-02-25] MEDS: Omeprazole 20 MG CAPSULE.DR PO ×2 (05:40→15:57)
[2022-02-25 07:44] LABS: Glucose, Whole Blood 137 mg/dL (60-115)
[2022-02-25 08:16] VITALS: BP 144/79; PULSE 79; RESP 16; O2SAT 96
[2022-02-25] MEDS: Gabapentin 600 MG TABLET PO ×3 (08:22→21:11)
[2022-02-25] MEDS: Loratadine 10 MG TABLET PO (08:22)
[2022-02-25] MEDS: Buprenorphine/Naloxone 8/2 mg FILM 1 FILM SUBLINGUAL ×3 (08:22→21:37)
[2022-02-25] MEDS: FLUoxetine HCl 20 MG CAPSULE 60 MG PO (08:23)
[2022-02-25] MEDS: Aspirin Enteric Coated 81 MG TABLET.DR PO (08:23)
[2022-02-25] MEDS: clonazePAM 0.5 MG TABLET PO (08:23)
[2022-02-25] MEDS: amLODIPine Besylate 5 MG TABLET PO (08:23)
[2022-02-25 12:47] LABS: Glucose, Whole Blood 146 mg/dL (60-115)
[2022-02-25 15:52] VITALS: BP 141/75; PULSE 79; RESP 18; O2SAT 92
--- NOTE | 2022-02-25 15:58 | PC.NURSE ---
assumed care of pt at 1500, pt a&ox3, vss, medicated per provider order, pt reporting 9/10 left knee pain and 4/10 headache, no new orders at this time.
[2022-02-25 18:46] LABS: Glucose, Whole Blood 167 mg/dL (60-115)
[2022-02-25] MEDS: Atorvastatin Calcium 80 MG TABLET PO (21:11)
[2022-02-25] MEDS: traZODone HCL 100 MG TABLET 200 MG PO (21:11)
[2022-02-25] MEDS: Acetaminophen 325 MG TABLET 650 MG PO (21:11)
[2022-02-25] MEDS: Insulin Glargine,Hum.rec.anlog 100 UNIT/ML 10 ML VIAL 28 UNIT SUBCUT (21:12)
[2022-02-25 21:19] LABS: Glucose, Whole Blood 191 mg/dL (60-115)
[2022-02-26 07:19] LABS: Glucose, Whole Blood 150 mg/dL (60-115)
[2022-02-26] MEDS: Loratadine 10 MG TABLET PO (07:37)
[2022-02-26] MEDS: FLUoxetine HCl 20 MG CAPSULE 60 MG PO (07:37)
[2022-02-26] MEDS: Buprenorphine/Naloxone 8/2 mg FILM 1 FILM SUBLINGUAL ×3 (07:37→20:54)
[2022-02-26] MEDS: Aspirin Enteric Coated 81 MG TABLET.DR PO (07:38)
[2022-02-26] MEDS: clonazePAM 0.5 MG TABLET PO (07:38)
[2022-02-26] MEDS: Levothyroxine Sodium 25 MCG TABLET PO (07:38)
[2022-02-26] MEDS: Gabapentin 600 MG TABLET PO ×3 (07:38→20:54)
[2022-02-26] MEDS: Omeprazole 20 MG CAPSULE.DR PO ×2 (07:38→16:09)
[2022-02-26] MEDS: Levothyroxine Sodium 125 MCG TABLET 250 MCG PO (07:39)
[2022-02-26] MEDS: amLODIPine Besylate 5 MG TABLET PO (07:40)
[2022-02-26 07:43] VITALS: BP 132/77; PULSE 73; RESP 20; O2SAT 98
--- NOTE | 2022-02-26 07:46 | PC.NURSE ---
Per PT request medications to be given all together this AM.
[2022-02-26 08:10] VITALS: BP 126/70; PULSE 78; RESP 20; O2SAT 93
[2022-02-26 12:29] LABS: Glucose, Whole Blood 161 mg/dL (60-115)
[2022-02-26] MEDS: Insulin Lispro 100 UNIT/ML 3 ML VIAL SUBCUT ×2 (12:31→17:51)
[2022-02-26 14:00] VITALS: BP 148/79; PULSE 74; O2SAT 96
[2022-02-26 17:46] LABS: Glucose, Whole Blood 174 mg/dL (60-115)
[2022-02-26] MEDS: Insulin Glargine,Hum.rec.anlog 100 UNIT/ML 10 ML VIAL 28 UNIT SUBCUT (20:53)
[2022-02-26] MEDS: traZODone HCL 100 MG TABLET 200 MG PO (20:53)
[2022-02-26] MEDS: Acetaminophen 325 MG TABLET 650 MG PO (20:53)
[2022-02-26] MEDS: Atorvastatin Calcium 80 MG TABLET PO (20:54)
[2022-02-26 21:11] VITALS: BP 149/78; PULSE 79; O2SAT 93
[2022-02-26 21:16] LABS: Glucose, Whole Blood 173 mg/dL (60-115)
[2022-02-27 06:00] VITALS: BP 151/77; PULSE 73; O2SAT 96
[2022-02-27] MEDS: Levothyroxine Sodium 25 MCG TABLET PO (06:36)
[2022-02-27] MEDS: Omeprazole 20 MG CAPSULE.DR PO ×2 (06:36→16:19)
[2022-02-27 07:37] LABS: Glucose, Whole Blood 185 mg/dL (60-115)
[2022-02-27] MEDS: Levothyroxine Sodium 125 MCG TABLET 250 MCG PO (09:10)
[2022-02-27] MEDS: Insulin Lispro 100 UNIT/ML 3 ML VIAL SUBCUT ×3 (09:11→18:58)
[2022-02-27] MEDS: Loratadine 10 MG TABLET PO (11:17)
[2022-02-27] MEDS: Aspirin Enteric Coated 81 MG TABLET.DR PO (11:17)
[2022-02-27] MEDS: Buprenorphine/Naloxone 8/2 mg FILM 1 FILM SUBLINGUAL ×3 (11:18→21:14)
[2022-02-27] MEDS: amLODIPine Besylate 5 MG TABLET PO (11:18)
[2022-02-27] MEDS: Gabapentin 600 MG TABLET PO ×3 (11:18→21:14)
[2022-02-27] MEDS: clonazePAM 0.5 MG TABLET PO (11:18)
[2022-02-27] MEDS: FLUoxetine HCl 20 MG CAPSULE 60 MG PO (11:18)
[2022-02-27 11:46] VITALS: BP 151/77; PULSE 73; O2SAT 96
[2022-02-27 14:44] LABS: Glucose, Whole Blood 160 mg/dL (60-115)
[2022-02-27 18:58] LABS: Glucose, Whole Blood 215 mg/dL (60-115)
[2022-02-27] MEDS: Atorvastatin Calcium 80 MG TABLET PO (21:14)
[2022-02-27] MEDS: Insulin Glargine,Hum.rec.anlog 100 UNIT/ML 10 ML VIAL 28 UNIT SUBCUT (21:14)
[2022-02-27] MEDS: traZODone HCL 100 MG TABLET 200 MG PO (21:17)
[2022-02-27] MEDS: Acetaminophen 325 MG TABLET 650 MG PO (21:17)
[2022-02-27 22:43] VITALS: BP 147/73; PULSE 75; RESP 18
[2022-02-28] MEDS: Levothyroxine Sodium 125 MCG TABLET 250 MCG PO (05:49)
[2022-02-28] MEDS: Levothyroxine Sodium 25 MCG TABLET PO (05:49)
[2022-02-28] MEDS: Omeprazole 20 MG CAPSULE.DR PO ×2 (05:49→18:07)
[2022-02-28 06:00] VITALS: BP 148/78; PULSE 75; RESP 16; TEMP 36.6; O2SAT 94
[2022-02-28 07:18] LABS: Glucose, Whole Blood 138 mg/dL (60-115)
[2022-02-28] MEDS: FLUoxetine HCl 20 MG CAPSULE 60 MG PO (08:17)
[2022-02-28] MEDS: Loratadine 10 MG TABLET PO (08:17)
[2022-02-28] MEDS: amLODIPine Besylate 5 MG TABLET PO (08:17)
[2022-02-28] MEDS: clonazePAM 0.5 MG TABLET PO (08:17)
[2022-02-28] MEDS: Aspirin Enteric Coated 81 MG TABLET.DR PO (08:17)
[2022-02-28] MEDS: Gabapentin 600 MG TABLET PO ×3 (08:18→20:36)
[2022-02-28] MEDS: Buprenorphine/Naloxone 8/2 mg FILM 1 FILM SUBLINGUAL ×3 (08:18→20:36)
[2022-02-28 09:46] VITALS: BP 148/78; PULSE 75; O2SAT 94
[2022-02-28 13:22] LABS: Glucose, Whole Blood 137 mg/dL (60-115)
[2022-02-28 18:03] LABS: Glucose, Whole Blood 156 mg/dL (60-115)
[2022-02-28 18:06] VITALS: RESP 20
[2022-02-28] MEDS: Insulin Lispro 100 UNIT/ML 3 ML VIAL SUBCUT (18:07)
[2022-02-28] MEDS: Atorvastatin Calcium 80 MG TABLET PO (20:35)
[2022-02-28] MEDS: Insulin Glargine,Hum.rec.anlog 100 UNIT/ML 10 ML VIAL 28 UNIT SUBCUT (20:36)
[2022-02-28] MEDS: traZODone HCL 100 MG TABLET 200 MG PO (20:40)
[2022-02-28] MEDS: Acetaminophen 325 MG TABLET 650 MG PO (20:41)
[2022-03-01 00:11] VITALS: BP 138/70; PULSE 71; RESP 18; O2SAT 93
[2022-03-01] MEDS: Levothyroxine Sodium 25 MCG TABLET PO (07:24)
[2022-03-01] MEDS: Omeprazole 20 MG CAPSULE.DR PO ×2 (07:24→16:30)
[2022-03-01] MEDS: Levothyroxine Sodium 125 MCG TABLET 250 MCG PO (07:24)
[2022-03-01 07:30] LABS: Glucose, Whole Blood 172 mg/dL (60-115)
[2022-03-01] MEDS: Insulin Lispro 100 UNIT/ML 3 ML VIAL SUBCUT ×3 (08:46→19:02)
[2022-03-01] MEDS: FLUoxetine HCl 20 MG CAPSULE 60 MG PO (08:47)
[2022-03-01] MEDS: Aspirin Enteric Coated 81 MG TABLET.DR PO (08:47)
[2022-03-01] MEDS: clonazePAM 0.5 MG TABLET PO (08:47)
[2022-03-01] MEDS: Buprenorphine/Naloxone 8/2 mg FILM 1 FILM SUBLINGUAL ×3 (08:47→21:02)
[2022-03-01] MEDS: amLODIPine Besylate 5 MG TABLET PO (08:47)
[2022-03-01] MEDS: Gabapentin 600 MG TABLET PO ×3 (08:47→21:02)
[2022-03-01] MEDS: Loratadine 10 MG TABLET PO (08:47)
--- NOTE | 2022-03-01 09:03 | PC.NURSE ---
pt is a/o x 4 no sob/lennie noted skin pink warm dry speaks in full sentences. lungs - diminished. heart sounds - regular. abd soft, n/t, bs + x 4 quads. pt aware of plan of care. pt ate breakfast. poc 172, given insulin coverage 2units sq.
[2022-03-01 09:18] VITALS: BP 130/73; PULSE 73; RESP 18; TEMP 36.4; O2SAT 94
[2022-03-01 12:43] VITALS: BP 130/73; PULSE 73; O2SAT 94
[2022-03-01 13:51] LABS: Glucose, Whole Blood 167 mg/dL (60-115)
--- NOTE | 2022-03-01 14:21 | MHC.CM.ED ---
Patient remains in ER. No bed offers have been made. Leadership is aware and trying to assist in finding a safe discharge plan. Continue to monitor for d/c needs.
[2022-03-01 18:42] LABS: Glucose, Whole Blood 168 mg/dL (60-115)
--- NOTE | 2022-03-01 19:43 | PC.NURSE ---
pt asked to be cleaned for bed. pt purwick was changed, suction was emptied,both powder and barrier cream applied. pt is comfortable. RN aware
[2022-03-01] MEDS: traZODone HCL 100 MG TABLET 200 MG PO (21:01)
[2022-03-01] MEDS: Insulin Glargine,Hum.rec.anlog 100 UNIT/ML 10 ML VIAL 28 UNIT SUBCUT (21:01)
[2022-03-01] MEDS: Atorvastatin Calcium 80 MG TABLET PO (21:02)
[2022-03-01] MEDS: Acetaminophen 325 MG TABLET 650 MG PO (21:02)
[2022-03-01 21:03] VITALS: BP 131/70; PULSE 80; RESP 16; O2SAT 96
[2022-03-02 01:23] VITALS: BP 131/61; PULSE 81; RESP 19; O2SAT 95
[2022-03-02 05:04] VITALS: BP 131/69; PULSE 71; RESP 18; O2SAT 95
[2022-03-02 05:45] VITALS: BP 121/68; PULSE 69; RESP 18; O2SAT 94
[2022-03-02] MEDS: Omeprazole 20 MG CAPSULE.DR PO ×2 (06:17→15:50)
[2022-03-02] MEDS: Levothyroxine Sodium 125 MCG TABLET 250 MCG PO (06:18)
[2022-03-02] MEDS: Levothyroxine Sodium 25 MCG TABLET PO (06:18)
[2022-03-02 07:07] LABS: Glucose, Whole Blood 164 mg/dL (60-115)
[2022-03-02] MEDS: Insulin Lispro 100 UNIT/ML 3 ML VIAL SUBCUT ×2 (07:14→18:37)
[2022-03-02 08:01] VITALS: BP 117/69; PULSE 80; RESP 18; O2SAT 93
[2022-03-02] MEDS: Aspirin Enteric Coated 81 MG TABLET.DR PO (08:03)
[2022-03-02] MEDS: Gabapentin 600 MG TABLET PO ×3 (08:03→22:10)
[2022-03-02] MEDS: FLUoxetine HCl 20 MG CAPSULE 60 MG PO (08:03)
[2022-03-02] MEDS: Loratadine 10 MG TABLET PO (08:04)
[2022-03-02] MEDS: amLODIPine Besylate 5 MG TABLET PO (08:04)
[2022-03-02] MEDS: Buprenorphine/Naloxone 8/2 mg FILM 1 FILM SUBLINGUAL ×3 (08:04→22:12)
[2022-03-02] MEDS: clonazePAM 0.5 MG TABLET PO (08:04)
[2022-03-02 12:06] LABS: Glucose, Whole Blood 107 mg/dL (60-115)
[2022-03-02 15:47] VITALS: BP 137/77; PULSE 95; RESP 20; O2SAT 96
--- NOTE | 2022-03-02 15:56 | PC.NURSE ---
pt a&ox4, vss, medicated per provider order, case management at bedside talking to pt.
[2022-03-02 17:41] LABS: Glucose, Whole Blood 174 mg/dL (60-115)
--- NOTE | 2022-03-02 20:54 | PC.NURSE ---
pt cleaned and changed, new purewick in place.
[2022-03-02 21:19] LABS: Glucose, Whole Blood 163 mg/dL (60-115)
[2022-03-02] MEDS: Atorvastatin Calcium 80 MG TABLET PO (22:10)
[2022-03-02] MEDS: Acetaminophen 325 MG TABLET 650 MG PO (22:11)
[2022-03-02] MEDS: traZODone HCL 100 MG TABLET 200 MG PO (22:11)
[2022-03-02] MEDS: Insulin Glargine,Hum.rec.anlog 100 UNIT/ML 10 ML VIAL 28 UNIT SUBCUT (22:12)
[2022-03-02 23:35] VITALS: BP 131/69; PULSE 80; RESP 18; TEMP 36.7; O2SAT 92
[2022-03-03] MEDS: Omeprazole 20 MG CAPSULE.DR PO ×2 (05:47→18:14)
[2022-03-03] MEDS: Levothyroxine Sodium 25 MCG TABLET PO (05:47)
[2022-03-03] MEDS: Levothyroxine Sodium 125 MCG TABLET 250 MCG PO (05:48)
[2022-03-03 07:14] LABS: Glucose, Whole Blood 146 mg/dL (60-115)
--- NOTE | 2022-03-03 07:43 | PC.NURSE ---
pt given bed bath, was incontinent of stool. new purewick put in place.
[2022-03-03] MEDS: FLUoxetine HCl 20 MG CAPSULE 60 MG PO (08:56)
[2022-03-03] MEDS: Gabapentin 600 MG TABLET PO ×3 (08:56→20:45)
[2022-03-03] MEDS: Acetaminophen 325 MG TABLET 650 MG PO ×3 (08:56→20:45)
[2022-03-03] MEDS: clonazePAM 0.5 MG TABLET PO (08:57)
[2022-03-03] MEDS: Buprenorphine/Naloxone 8/2 mg FILM 1 FILM SUBLINGUAL ×3 (08:57→20:45)
[2022-03-03] MEDS: Aspirin Enteric Coated 81 MG TABLET.DR PO (08:57)
[2022-03-03] MEDS: amLODIPine Besylate 5 MG TABLET PO (08:57)
[2022-03-03] MEDS: Loratadine 10 MG TABLET PO (08:57)
[2022-03-03 09:01] VITALS: BP 137/76; PULSE 79; RESP 18; O2SAT 93
[2022-03-03 11:14] VITALS: BP 137/76; PULSE 79; O2SAT 93
--- NOTE | 2022-03-03 12:10 | PC.NURSE ---
pt moved bowels, cleaned up, new purewick in place.
[2022-03-03 13:12] LABS: Glucose, Whole Blood 164 mg/dL (60-115)
[2022-03-03] MEDS: Insulin Lispro 100 UNIT/ML 3 ML VIAL SUBCUT ×2 (13:27→18:14)
[2022-03-03 18:02] VITALS: BP 163/56; PULSE 81; RESP 18; TEMP 36.9; O2SAT 98
--- NOTE | 2022-03-03 18:53 | PC.NURSE ---
PATIENT WAS GIVEN A BED BATH ,BEDDING CHANGE AND NEW PERWICK IN PLACE .
[2022-03-03 19:48] LABS: Glucose, Whole Blood 188 mg/dL (60-115)
[2022-03-03 20:40] VITALS: BP 142/74; PULSE 82; RESP 16; TEMP 36.6; O2SAT 98
[2022-03-03] MEDS: Atorvastatin Calcium 80 MG TABLET PO (20:45)
[2022-03-03] MEDS: traZODone HCL 100 MG TABLET 200 MG PO (20:45)
[2022-03-03] MEDS: Insulin Glargine,Hum.rec.anlog 100 UNIT/ML 10 ML VIAL 28 UNIT SUBCUT (20:45)
[2022-03-03 20:46] LABS: Glucose, Whole Blood 225 mg/dL (60-115)
[2022-03-04 06:00] VITALS: BP 156/75; PULSE 74; RESP 16; TEMP 36.5; O2SAT 94
[2022-03-04] MEDS: Levothyroxine Sodium 25 MCG TABLET PO (06:37)
[2022-03-04] MEDS: Omeprazole 20 MG CAPSULE.DR PO ×2 (06:37→18:36)
[2022-03-04] MEDS: Levothyroxine Sodium 125 MCG TABLET 250 MCG PO (06:37)
--- NOTE | 2022-03-04 06:50 | PC.NURSE ---
PATIENT WAS INC ,ETHAN CARE GIVEN ,BARRIER CREAM APPLY TO BOTTOM ,LINEN CHANGE AND NEW PER WICK IN PLACE .
[2022-03-04 07:10] LABS: Glucose, Whole Blood 115 mg/dL (60-115)
--- NOTE | 2022-03-04 07:29 | PC.NURSE ---
aox3 speaking in full clear sentences. no insulin coverage needed this am. pt denies complaints.
[2022-03-04] MEDS: Loratadine 10 MG TABLET PO (08:20)
[2022-03-04] MEDS: clonazePAM 0.5 MG TABLET PO (08:20)
[2022-03-04] MEDS: FLUoxetine HCl 20 MG CAPSULE 60 MG PO (08:20)
[2022-03-04] MEDS: Gabapentin 600 MG TABLET PO ×3 (08:20→20:32)
[2022-03-04] MEDS: amLODIPine Besylate 5 MG TABLET PO (08:20)
[2022-03-04] MEDS: Aspirin Enteric Coated 81 MG TABLET.DR PO (08:21)
[2022-03-04] MEDS: Buprenorphine/Naloxone 8/2 mg FILM 1 FILM SUBLINGUAL ×3 (08:21→20:27)
[2022-03-04 12:23] LABS: Glucose, Whole Blood 157 mg/dL (60-115)
[2022-03-04 16:27] LABS: Appearance Urine Clear; Color Urine Yellow; Glucose Urine UA Negative (Negative); Leukocyte Esterase Urine Large (3+) (Negative); Nitrite Urine Negative (Negative); PH 7.5 (5.0-9.0); UMIC TRIGGER UACC YES; Urine Blood Large (3+) (Negative); Urine Ketones Negative (Negative); Urine Protein 100 (2+) mg/dL (Neg-Trace)
[2022-03-04 16:28] LABS: Bacteria Urine 1+ (None Seen); Hyaline Casts Urine 0-2 /LPF (0-2); RBC Urine >20 /HPF (0-2); UACC Culture Trigger YES; WBC Urine >50 /HPF (0-5)
[2022-03-04 16:33] LABS: Amphetamine Screen Urine Not Detected (Not Detect); Barbiturates, Urine Not Detected (Not Detect); Benzodiazepines Screen Urine Not Detected (Not Detect); Cannabinoid Screen Urine Not Detected (Not Detect); Cocaine Screen Urine Not Detected (Not Detect); Fentanyl, urine Not Detected (Not Detect); Opiate Screen Urine Not Detected (Not Detect); Phencyclidine Screen Urine Not Detected (Not Detect)
--- NOTE | 2022-03-04 18:05 | PC.NURSE ---
discussion with provider about UA results. pt was reporting urinary retention and bladder scan completed with 600+ in bladder. straight cath completed. pt tolerated well.
[2022-03-04 19:16] LABS: Glucose, Whole Blood 177 mg/dL (60-115)
[2022-03-04] MEDS: Insulin Glargine,Hum.rec.anlog 100 UNIT/ML 10 ML VIAL 28 UNIT SUBCUT (20:27)
[2022-03-04] MEDS: Atorvastatin Calcium 80 MG TABLET PO (20:28)
[2022-03-04] MEDS: Acetaminophen 325 MG TABLET 650 MG PO (20:28)
[2022-03-04] MEDS: traZODone HCL 100 MG TABLET 200 MG PO (20:28)
[2022-03-05 01:51] LABS: Glucose, Whole Blood 179 mg/dL (60-115)
[2022-03-05] MEDS: Levothyroxine Sodium 25 MCG TABLET PO (06:14)
[2022-03-05] MEDS: Levothyroxine Sodium 125 MCG TABLET 250 MCG PO (06:14)
[2022-03-05] MEDS: Omeprazole 20 MG CAPSULE.DR PO ×2 (06:14→19:07)
[2022-03-05 06:18] VITALS: PULSE 74; RESP 16; O2SAT 94
[2022-03-05 07:31] LABS: Glucose, Whole Blood 125 mg/dL (60-115)
[2022-03-05 08:30] VITALS: BP 131/67; PULSE 78; RESP 14; TEMP 36.7; O2SAT 95
[2022-03-05] MEDS: Gabapentin 600 MG TABLET PO ×3 (08:49→21:44)
[2022-03-05] MEDS: FLUoxetine HCl 20 MG CAPSULE 60 MG PO (08:49)
[2022-03-05] MEDS: Aspirin Enteric Coated 81 MG TABLET.DR PO (08:49)
[2022-03-05] MEDS: Loratadine 10 MG TABLET PO (08:49)
[2022-03-05] MEDS: clonazePAM 0.5 MG TABLET PO (08:50)
[2022-03-05] MEDS: amLODIPine Besylate 5 MG TABLET PO (08:50)
[2022-03-05] MEDS: Buprenorphine/Naloxone 8/2 mg FILM 1 FILM SUBLINGUAL ×3 (08:50→21:44)
[2022-03-05 09:59] VITALS: BP 133/68; PULSE 75; RESP 14; TEMP 36.4; O2SAT 92
[2022-03-05 12:45] VITALS: BP 130/66; PULSE 77; RESP 14; TEMP 36.6; O2SAT 96
[2022-03-05 13:07] LABS: Glucose, Whole Blood 175 mg/dL (60-115)
[2022-03-05] MEDS: Insulin Lispro 100 UNIT/ML 3 ML VIAL SUBCUT (13:11)
--- NOTE | 2022-03-05 14:04 | PC.NURSE ---
Pt incontinent of urine, linen changed, new purewick and barrier cream applied @ 3943
[2022-03-05 14:21] VITALS: BP 125/68; PULSE 75; RESP 14; TEMP 36.7; O2SAT 92
[2022-03-05 19:06] LABS: Glucose, Whole Blood 125 mg/dL (60-115)
[2022-03-05] MEDS: Atorvastatin Calcium 80 MG TABLET PO (21:44)
[2022-03-05] MEDS: Insulin Glargine,Hum.rec.anlog 100 UNIT/ML 10 ML VIAL 28 UNIT SUBCUT (21:44)
[2022-03-05] MEDS: traZODone HCL 100 MG TABLET 200 MG PO (22:24)
[2022-03-05] MEDS: Acetaminophen 325 MG TABLET 650 MG PO (22:24)
[2022-03-06 03:07] VITALS: PULSE 76; RESP 14; O2SAT 94
[2022-03-06 06:11] VITALS: BP 122/67; PULSE 73; RESP 14; O2SAT 94
[2022-03-06] MEDS: Levothyroxine Sodium 25 MCG TABLET PO (06:38)
[2022-03-06] MEDS: Omeprazole 20 MG CAPSULE.DR PO ×2 (06:38→15:43)
[2022-03-06] MEDS: Levothyroxine Sodium 125 MCG TABLET 250 MCG PO (06:38)
[2022-03-06 07:28] LABS: Glucose, Whole Blood 100 mg/dL (60-115)
[2022-03-06] MEDS: FLUoxetine HCl 20 MG CAPSULE 60 MG PO (08:41)
[2022-03-06] MEDS: clonazePAM 0.5 MG TABLET PO (08:41)
[2022-03-06] MEDS: Gabapentin 600 MG TABLET PO ×3 (08:42→21:09)
[2022-03-06] MEDS: Loratadine 10 MG TABLET PO (08:42)
[2022-03-06] MEDS: Aspirin Enteric Coated 81 MG TABLET.DR PO (08:42)
[2022-03-06] MEDS: amLODIPine Besylate 5 MG TABLET PO (08:42)
--- NOTE | 2022-03-06 08:49 | PC.NURSE ---
pure wick has been changed, pt has been repositioned and barrier cream placed over coccyx pt has no skin breakdown over bony prominences. pt offers no complaint. pt tolerated all of meal tray and required no insulin coverage required. call celaya is within reach, pt offers no complaints.
[2022-03-06 08:54] VITALS: BP 133/72; PULSE 76; RESP 16; TEMP 36.4; O2SAT 95
[2022-03-06] MEDS: Buprenorphine/Naloxone 8/2 mg FILM 1 FILM SUBLINGUAL ×3 (10:46→21:16)
[2022-03-06 11:36] VITALS: BP 133/72; PULSE 76; O2SAT 95
[2022-03-06 13:34] LABS: Glucose, Whole Blood 141 mg/dL (60-115)
[2022-03-06 14:24] LABS: MANUAL DIFF FLAG NO
[2022-03-06 14:25] LABS: Basophils Absolute Auto 0.1 X10*3/uL (0.0-0.2); Basophils Percent Auto 0.9 % (0-2); Eosinophils Absolute Auto 0.2 X10*3/uL (0.0-0.4); Eosinophils Percent Auto 2.3 % (0-4); Hematocrit 34.4 % (37.0-47.0); Hemoglobin 10.4 g/dl (12.0-16.0); Imm Gran Abs Auto 0.03 X10*3/uL (0.00-0.03); Imm Gran Pct Auto 0.4 % (0.0-0.4); Lymphocytes Absolute Auto 2.3 X10*3/uL (1.2-4.9); Lymphocytes Percent Auto 30.3 % (20-40); Mean Corpuscular HGB Conc 30.2 g/dl (31.0-35.0); Mean Corpuscular Hemoglobin 25.3 pg (27.0-33.0); Mean Corpuscular Volume 83.7 fL (80.0-98.0); Mean Platelet Volume 9.5 fL (9.4-12.3); Monocytes Absolute Auto 0.6 X10*3/uL (0.1-1.2); Monocytes Percent Auto 8.2 % (2-11); Neutrophils Absolute Auto 4.3 x10*3/uL (2.0-8.3); Neutrophils Percent Auto 57.9 % (45-73); Platelet Count 253 X10*3/uL (160-400); Red Blood Count 4.11 X10*6/uL (4.20-5.50); Red Cell Distribution Width 16.4 % (11.0-16.0); White Blood Count 7.5 X10*3/uL (4.8-10.8)
[2022-03-06 14:54] LABS: Anion Gap 13 (12-20); Blood Urea Nitrogen 36 mg/dL (9-16); Calcium 8.6 mg/dL (8.4-10.2); Carbon Dioxide 25 mmol/L (22-29); Chloride 103 mmol/L (96-108); Creatinine Clr Calc Pharmacy 77.4; Estimated Glomerular Filt Rate 40; Glucose Random 160 mg/dL (60-115); Potassium 4.9 mmol/L (3.3-5.1); Sodium 136 mmol/L (135-145)
--- NOTE | 2022-03-06 15:39 | MHC.CM.ED ---
Patient remains in ER. T/W attempted to speak with Aurora at [facility]. Left message requesting return telephone call. Continue to monitor for d/c needs.
[2022-03-06 15:42] VITALS: BP 137/79; PULSE 80; RESP 18; O2SAT 96
[2022-03-06 18:02] LABS: Glucose, Whole Blood 132 mg/dL (60-115)
--- NOTE | 2022-03-06 18:15 | PC.NURSE ---
Pt cleaned/full bed bath. Refusing to get OOB at this time. Pt educated on risks of staying in bed and benefits of moving.
[2022-03-06] MEDS: traZODone HCL 100 MG TABLET 200 MG PO (21:10)
[2022-03-06] MEDS: Acetaminophen 325 MG TABLET 650 MG PO (21:14)
[2022-03-06] MEDS: Insulin Glargine,Hum.rec.anlog 100 UNIT/ML 10 ML VIAL 28 UNIT SUBCUT (21:16)
[2022-03-06] MEDS: Atorvastatin Calcium 80 MG TABLET PO (21:17)
[2022-03-07 01:30] VITALS: BP 135/71; PULSE 71; RESP 15; TEMP 36.6; O2SAT 91
[2022-03-07 01:38] LABS: Glucose, Whole Blood 192 mg/dL (60-115)
--- NOTE | 2022-03-07 05:57 | PC.NURSE ---
PT GIVEN BED BATH. PUREWICK WAS NOT SUCTIONING SO PT WAS SOILED WITH URINE. BED LINEN CHANGED AND PT WASHED. NEW PUREWICK APPLIED
[2022-03-07] MEDS: Levothyroxine Sodium 125 MCG TABLET 250 MCG PO (06:04)
[2022-03-07] MEDS: Levothyroxine Sodium 25 MCG TABLET PO (06:04)
[2022-03-07] MEDS: Omeprazole 20 MG CAPSULE.DR PO ×2 (06:04→15:30)
[2022-03-07 07:00] LABS: Glucose, Whole Blood 156 mg/dL (60-115)
[2022-03-07] MEDS: Insulin Lispro 100 UNIT/ML 3 ML VIAL SUBCUT ×2 (07:11→18:23)
[2022-03-07 08:25] VITALS: BP 144/73; PULSE 82; RESP 12
[2022-03-07] MEDS: Buprenorphine/Naloxone 8/2 mg FILM 1 FILM SUBLINGUAL ×3 (09:16→20:58)
[2022-03-07] MEDS: Loratadine 10 MG TABLET PO (09:16)
[2022-03-07] MEDS: Gabapentin 600 MG TABLET PO ×3 (09:17→20:58)
[2022-03-07] MEDS: amLODIPine Besylate 5 MG TABLET PO (09:17)
[2022-03-07] MEDS: FLUoxetine HCl 20 MG CAPSULE 60 MG PO (09:17)
[2022-03-07] MEDS: Aspirin Enteric Coated 81 MG TABLET.DR PO (09:18)
[2022-03-07 11:04] VITALS: BP 144/73; PULSE 82
[2022-03-07] MEDS: clonazePAM 0.5 MG TABLET PO (11:17)
[2022-03-07 13:21] LABS: Glucose, Whole Blood 149 mg/dL (60-115)
[2022-03-07 14:00] VITALS: PULSE 78; RESP 16; O2SAT 94
[2022-03-07 18:09] LABS: Glucose, Whole Blood 183 mg/dL (60-115)
--- NOTE | 2022-03-07 20:28 | PC.NURSE ---
PATIENT REFUSED HER DINNER ,WANTED CHEESE BURGER INSTEAD ,THIS PCT CALLED THE KITCHEN AND ORDER CHEESE BURGER FOR PATIENT ,PATIENT ATE 100 % OF MEALS ,PM BED BATH GIVEN ,LINEN CHANGE ,LOTION APPLY TO ARM LEGS AND BACK ,ETHAN CREAM APPLY TO COCCYX AND BABY POWDER APPLY TO FOLDS AND GROIN ,PERWICK CHANGE OUTPUT 700 ML EMPTY ,PATIENT WAS GIVEN WARM BLANKETS AND FRESH PITCHER OF WATER.
--- NOTE | 2022-03-07 20:38 | PC.NURSE ---
patient ask for sun butter and jelly sandwich and coffee .
[2022-03-07] MEDS: traZODone HCL 100 MG TABLET 200 MG PO (20:57)
[2022-03-07] MEDS: Acetaminophen 325 MG TABLET 650 MG PO (20:57)
[2022-03-07] MEDS: Atorvastatin Calcium 80 MG TABLET PO (20:57)
[2022-03-07] MEDS: Insulin Glargine,Hum.rec.anlog 100 UNIT/ML 10 ML VIAL 28 UNIT SUBCUT (20:58)
[2022-03-07 21:16] LABS: Glucose, Whole Blood 183 mg/dL (60-115)
[2022-03-07 22:28] VITALS: BP 131/70; PULSE 76; RESP 16; TEMP 36.8; O2SAT 92
--- NOTE | 2022-03-07 22:38 | PC.NURSE ---
patient ask for sherbert for snack .
[2022-03-08] MEDS: Levothyroxine Sodium 125 MCG TABLET 250 MCG PO (06:01)
[2022-03-08] MEDS: Levothyroxine Sodium 25 MCG TABLET PO (06:01)
[2022-03-08] MEDS: Omeprazole 20 MG CAPSULE.DR PO ×2 (06:01→16:02)
[2022-03-08 07:37] LABS: Glucose, Whole Blood 138 mg/dL (60-115)
[2022-03-08] MEDS: Aspirin Enteric Coated 81 MG TABLET.DR PO (08:42)
[2022-03-08] MEDS: Buprenorphine/Naloxone 8/2 mg FILM 1 FILM SUBLINGUAL ×3 (08:42→20:48)
[2022-03-08] MEDS: Gabapentin 600 MG TABLET PO ×3 (08:42→20:48)
[2022-03-08] MEDS: Loratadine 10 MG TABLET PO (08:42)
[2022-03-08] MEDS: FLUoxetine HCl 20 MG CAPSULE 60 MG PO (08:43)
[2022-03-08] MEDS: amLODIPine Besylate 5 MG TABLET PO (10:46)
[2022-03-08] MEDS: clonazePAM 0.5 MG TABLET PO (11:06)
[2022-03-08 11:29] VITALS: BP 131/70; PULSE 76; O2SAT 92
[2022-03-08 11:40] LABS: Glucose, Whole Blood 191 mg/dL (60-115)
[2022-03-08] MEDS: Insulin Lispro 100 UNIT/ML 3 ML VIAL SUBCUT ×2 (13:17→18:18)
--- NOTE | 2022-03-08 15:56 | PC.NURSE ---
ASSUMED CARE OF PATIENT ,PATIENT IS VERY DEMANDING TOWARDS STAFF ,PUEEWICK CHANGE ,OUTPUT 1000 ML ,BED BATH GIVEN AND LINEN CHANGE ,FRESH WATER GIVEN ASK PATIENT IF SHE NEEDED ANYTHING ELSE BEFORE I LEAVE TO ROOM PATIENT SAID SHE WAS ALL SET .
[2022-03-08 16:53] LABS: Glucose, Whole Blood 197 mg/dL (60-115)
[2022-03-08] MEDS: Acetaminophen 325 MG TABLET 650 MG PO (20:47)
[2022-03-08] MEDS: traZODone HCL 100 MG TABLET 200 MG PO (20:47)
[2022-03-08] MEDS: Insulin Glargine,Hum.rec.anlog 100 UNIT/ML 10 ML VIAL 28 UNIT SUBCUT (20:48)
[2022-03-08] MEDS: Atorvastatin Calcium 80 MG TABLET PO (20:48)
[2022-03-08 21:03] VITALS: BP 153/92; PULSE 69; RESP 16; TEMP 36.7; O2SAT 94
--- NOTE | 2022-03-08 21:07 | PC.NURSE ---
FOR DINNER PATINT ATE 100 % OF MEAL ,DRANK 600 ML FLUIDS ,PM BED BATH GIVEN BY THIS PCT AND PCT PARI ,LOTION APPLY TO ARMS ,LEGS AND BACK ,PROCREATIVE ORNAMENT APPLY TO COCCYX,BED LINEN CHANGE PUREWICK CHANGE OUTPUT 700 ML ,POINT OF CARE DONE VITALS TAKEN ,PATIENT WAS OFFER SNACKS AND FLUIDS ,PATIENT ATE PBJ SANDWICH ,NADIYA HAD A CUP OF COFFEE ,PITCHER OF FRESH WATER GIVEN ,PATIENT IS WATCHING TELEVISION .
[2022-03-08 21:08] LABS: Glucose, Whole Blood 149 mg/dL (60-115)
[2022-03-09] MEDS: Levothyroxine Sodium 25 MCG TABLET PO (05:46)
[2022-03-09] MEDS: Omeprazole 20 MG CAPSULE.DR PO ×2 (05:46→15:32)
[2022-03-09] MEDS: Levothyroxine Sodium 125 MCG TABLET 250 MCG PO (05:46)
[2022-03-09 07:07] LABS: Glucose, Whole Blood 127 mg/dL (60-115)
[2022-03-09 07:42] VITALS: BP 134/64; PULSE 74; RESP 20; TEMP 36.6; O2SAT 95
[2022-03-09] MEDS: Gabapentin 600 MG TABLET PO ×3 (09:13→20:59)
[2022-03-09] MEDS: amLODIPine Besylate 5 MG TABLET PO (09:13)
[2022-03-09] MEDS: Buprenorphine/Naloxone 8/2 mg FILM 1 FILM SUBLINGUAL ×3 (09:13→20:59)
[2022-03-09] MEDS: FLUoxetine HCl 20 MG CAPSULE 60 MG PO (09:13)
[2022-03-09] MEDS: Aspirin Enteric Coated 81 MG TABLET.DR PO (09:13)
[2022-03-09 09:15] VITALS: BP 143/64
[2022-03-09] MEDS: Loratadine 10 MG TABLET PO (09:37)
[2022-03-09] MEDS: clonazePAM 0.5 MG TABLET PO (12:24)
[2022-03-09 12:33] LABS: Glucose, Whole Blood 138 mg/dL (60-115)
--- NOTE | 2022-03-09 14:11 | MHC.CM.ED ---
Addendum entered by Lynne Melo 03/09/22 14:37: [facility] does not have any unvaccinated beds available at this time. Referral resent to all facilities in the [facility] that accept patient's on Suboxone. Referrals sent to: [facility], [facility], [facility], [facility], [facility], [facility] [place], [facility], [facility], [facility], [facility], [facility], [facility], [facility], [facility], [facility], [facility], [facility], [facility], [facility], and [facility]. Original Note: Patient remains in ER. Placement has been difficult to place due to weight, not being vaccinated against Covid and being on Suboxone. Per Babita of physical therapy, patient has been a supervision assist with standing using a Shanita Lift. Continue to monitor for d/c needs.
[2022-03-09 15:28] VITALS: BP 128/73; PULSE 85; RESP 17; TEMP 35.8; O2SAT 97
--- NOTE | 2022-03-09 17:03 | PC.NURSE ---
pt c/o candice legs cramping more the left leg than the right leg, mlp (marquita) aware.
[2022-03-09 17:13] LABS: Glucose, Whole Blood 188 mg/dL (60-115)
[2022-03-09] MEDS: Insulin Lispro 100 UNIT/ML 3 ML VIAL SUBCUT (19:08)
[2022-03-09] MEDS: Atorvastatin Calcium 80 MG TABLET PO (20:59)
[2022-03-09] MEDS: Insulin Glargine,Hum.rec.anlog 100 UNIT/ML 10 ML VIAL 28 UNIT SUBCUT (20:59)
[2022-03-09] MEDS: traZODone HCL 100 MG TABLET 200 MG PO (20:59)
[2022-03-09] MEDS: Acetaminophen 325 MG TABLET 650 MG PO (21:00)
--- NOTE | 2022-03-09 21:04 | PC.NURSE ---
Pt aox4. Breaths are even and unlabored. Skin is warm pink and dry. Pt reports bilateral leg pain, 10/10. Pt medicated. Pt aware of plan of care. Will continue to monitor.
[2022-03-09 23:25] VITALS: BP 133/69; PULSE 77; RESP 12; O2SAT 97
--- NOTE | 2022-03-09 23:27 | PC.NURSE ---
Pt aox4. Breaths even and unlabored. No apparent distress noted. Pt request liquids. Will continue to monitor.
[2022-03-10 01:50] LABS: Glucose, Whole Blood 196 mg/dL (60-115)
--- NOTE | 2022-03-10 02:40 | PC.NURSE ---
Pt sleeping with even and unlabored breaths. Equal chest rises noted. No apparent distress. Will continue to monitor.
[2022-03-10 05:45] VITALS: BP 155/79; PULSE 79; RESP 14; TEMP 36.1; O2SAT 97
[2022-03-10 05:48] VITALS: BMI 60.5
[2022-03-10] MEDS: Levothyroxine Sodium 125 MCG TABLET 250 MCG PO (06:20)
[2022-03-10] MEDS: Levothyroxine Sodium 25 MCG TABLET PO (06:20)
[2022-03-10] MEDS: Omeprazole 20 MG CAPSULE.DR PO ×2 (06:20→16:32)
--- NOTE | 2022-03-10 06:33 | PC.NURSE ---
PT GIVEN BED BATH , BARRIER CREAM APPLIED AND LINEN CHANGED
[2022-03-10 07:06] LABS: Glucose, Whole Blood 146 mg/dL (60-115)
[2022-03-10] MEDS: Aspirin Enteric Coated 81 MG TABLET.DR PO (08:41)
[2022-03-10] MEDS: Loratadine 10 MG TABLET PO (08:41)
[2022-03-10] MEDS: Gabapentin 600 MG TABLET PO ×3 (08:41→21:04)
[2022-03-10] MEDS: Buprenorphine/Naloxone 8/2 mg FILM 1 FILM SUBLINGUAL ×3 (08:41→21:05)
[2022-03-10] MEDS: amLODIPine Besylate 5 MG TABLET PO (08:41)
[2022-03-10] MEDS: FLUoxetine HCl 20 MG CAPSULE 60 MG PO (08:41)
[2022-03-10] MEDS: clonazePAM 0.5 MG TABLET PO (08:41)
[2022-03-10 11:24] VITALS: BP 155/79; PULSE 79; O2SAT 97
[2022-03-10 13:07] LABS: Glucose, Whole Blood 146 mg/dL (60-115)
[2022-03-10 14:27] VITALS: BP 139/71; PULSE 79; RESP 16; TEMP 36.1; O2SAT 97
[2022-03-10] MEDS: Acetaminophen 325 MG TABLET 650 MG PO (16:33)
[2022-03-10 16:35] LABS: Glucose, Whole Blood 185 mg/dL (60-115)
[2022-03-10 18:47] LABS: Glucose, Whole Blood 141 mg/dL (60-115)
[2022-03-10] MEDS: traZODone HCL 100 MG TABLET 200 MG PO (21:04)
[2022-03-10] MEDS: Atorvastatin Calcium 80 MG TABLET PO (21:04)
[2022-03-10] MEDS: Insulin Glargine,Hum.rec.anlog 100 UNIT/ML 10 ML VIAL 28 UNIT SUBCUT (21:05)
--- NOTE | 2022-03-10 22:13 | PC.NURSE ---
pt purewick changed and linen changed by ADAMICA , pericare given and warm blanket given
[2022-03-10 22:15] VITALS: BP 127/69; PULSE 76; RESP 19; TEMP 36.3; O2SAT 95
[2022-03-10 22:25] LABS: Glucose, Whole Blood 191 mg/dL (60-115)
[2022-03-11 05:39] VITALS: BP 137/66; PULSE 65; RESP 18; O2SAT 95
[2022-03-11] MEDS: Acetaminophen 325 MG TABLET 650 MG PO ×2 (06:55→21:17)
[2022-03-11] MEDS: Omeprazole 20 MG CAPSULE.DR PO ×2 (06:56→15:40)
[2022-03-11] MEDS: Levothyroxine Sodium 125 MCG TABLET 250 MCG PO (06:56)
[2022-03-11] MEDS: Levothyroxine Sodium 25 MCG TABLET PO (06:56)
[2022-03-11 07:20] LABS: Glucose, Whole Blood 133 mg/dL (60-115)
[2022-03-11] MEDS: Gabapentin 600 MG TABLET PO ×3 (09:29→21:18)
[2022-03-11] MEDS: clonazePAM 0.5 MG TABLET PO (09:29)
[2022-03-11] MEDS: Aspirin Enteric Coated 81 MG TABLET.DR PO (09:29)
[2022-03-11] MEDS: Buprenorphine/Naloxone 8/2 mg FILM 1 FILM SUBLINGUAL ×3 (09:29→21:18)
[2022-03-11] MEDS: Loratadine 10 MG TABLET PO (09:30)
[2022-03-11] MEDS: amLODIPine Besylate 5 MG TABLET PO (09:30)
[2022-03-11] MEDS: FLUoxetine HCl 20 MG CAPSULE 60 MG PO (09:33)
[2022-03-11 16:00] VITALS: BP 147/77; PULSE 94; RESP 18; TEMP 36.4; O2SAT 94
[2022-03-11] MEDS: Insulin Glargine,Hum.rec.anlog 100 UNIT/ML 10 ML VIAL 28 UNIT SUBCUT (21:18)
[2022-03-11] MEDS: traZODone HCL 100 MG TABLET 200 MG PO (21:18)
[2022-03-11] MEDS: Atorvastatin Calcium 80 MG TABLET PO (21:18)
--- NOTE | 2022-03-11 21:20 | PC.NURSE ---
pt a&ox3, vss, in good spirits, reports that she is doing well and actively participating in PT, medicated per provider order. pt cleaned/changed by collection technician.
[2022-03-11 22:13] VITALS: BP 135/69; PULSE 82; RESP 20; O2SAT 98
--- NOTE | 2022-03-11 22:24 | PC.NURSE ---
Pt cleaned up @1530 (pads changed, purewick changed, lotion and powder applied between folds, honey care given), pt requested another cleanup @2014 same care was given
[2022-03-12] MEDS: Omeprazole 20 MG CAPSULE.DR PO ×2 (05:54→17:17)
[2022-03-12] MEDS: Levothyroxine Sodium 25 MCG TABLET PO (05:54)
[2022-03-12] MEDS: Levothyroxine Sodium 125 MCG TABLET 250 MCG PO (05:54)
[2022-03-12 06:00] VITALS: BP 121/72; PULSE 80; RESP 16; TEMP 36.6; O2SAT 97
[2022-03-12] MEDS: Insulin Lispro 100 UNIT/ML 3 ML VIAL SUBCUT (07:09)
[2022-03-12 07:26] VITALS: BP 124/70; PULSE 81; RESP 16; O2SAT 94
[2022-03-12] MEDS: Gabapentin 600 MG TABLET PO ×3 (08:07→22:01)
[2022-03-12] MEDS: amLODIPine Besylate 5 MG TABLET PO (08:07)
[2022-03-12] MEDS: Buprenorphine/Naloxone 8/2 mg FILM 1 FILM SUBLINGUAL ×3 (08:07→22:00)
[2022-03-12] MEDS: clonazePAM 0.5 MG TABLET PO (08:07)
[2022-03-12] MEDS: Aspirin Enteric Coated 81 MG TABLET.DR PO (08:08)
[2022-03-12] MEDS: Loratadine 10 MG TABLET PO (08:08)
[2022-03-12] MEDS: FLUoxetine HCl 20 MG CAPSULE 60 MG PO (08:08)
[2022-03-12 16:34] VITALS: BP 133/71; PULSE 74; RESP 12; O2SAT 96
--- NOTE | 2022-03-12 16:49 | MHC.CM.ED ---
Met with pt to review d/c planning - pt states she is making progress with PT and hopes to be able to return to home. No acceptance to [facility] including [facility]. CM to continue to follow.
[2022-03-12 20:21] VITALS: BP 147/77; PULSE 79; O2SAT 94
[2022-03-12] MEDS: traZODone HCL 100 MG TABLET 200 MG PO (22:00)
[2022-03-12] MEDS: Acetaminophen 325 MG TABLET 650 MG PO (22:00)
[2022-03-12] MEDS: Atorvastatin Calcium 80 MG TABLET PO (22:01)
[2022-03-12] MEDS: Insulin Glargine,Hum.rec.anlog 100 UNIT/ML 10 ML VIAL 28 UNIT SUBCUT (22:01)
--- NOTE | 2022-03-12 22:02 | PC.NURSE ---
assumed care of pt at 1845, pt a&ox3, cleaned and repositioned by ana, pt requested deyanira son, reporting 7/10 pain, medicated per provider order.
[2022-03-13 06:00] VITALS: BP 125/66; PULSE 72; O2SAT 94
[2022-03-13 07:20] LABS: Glucose, Whole Blood 136 mg/dL (60-115)
[2022-03-13] MEDS: FLUoxetine HCl 20 MG CAPSULE 60 MG PO (07:54)
[2022-03-13] MEDS: Gabapentin 600 MG TABLET PO ×3 (07:54→20:42)
[2022-03-13] MEDS: Levothyroxine Sodium 25 MCG TABLET PO (07:54)
[2022-03-13] MEDS: clonazePAM 0.5 MG TABLET PO (07:54)
[2022-03-13] MEDS: Omeprazole 20 MG CAPSULE.DR PO ×2 (07:54→17:13)
[2022-03-13] MEDS: Levothyroxine Sodium 125 MCG TABLET 250 MCG PO (07:55)
[2022-03-13] MEDS: Loratadine 10 MG TABLET PO (07:55)
[2022-03-13] MEDS: Buprenorphine/Naloxone 8/2 mg FILM 1 FILM SUBLINGUAL ×3 (07:56→20:43)
[2022-03-13] MEDS: Aspirin Enteric Coated 81 MG TABLET.DR PO (07:56)
[2022-03-13] MEDS: amLODIPine Besylate 5 MG TABLET PO (07:57)
--- NOTE | 2022-03-13 08:00 | PC.NURSE ---
Patient complains of upper abdomen pain. She states omeprazole is not helping. bowel sound active/normal. She states she has a bowel movement every 6-7 days.
[2022-03-13 12:30] LABS: Glucose, Whole Blood 234 mg/dL (60-115)
[2022-03-13] MEDS: Insulin Lispro 100 UNIT/ML 3 ML VIAL SUBCUT ×2 (13:26→18:34)
[2022-03-13 17:47] LABS: Glucose, Whole Blood 207 mg/dL (60-115)
[2022-03-13 18:21] VITALS: BP 137/77; PULSE 77; RESP 14; O2SAT 93
[2022-03-13] MEDS: Magnesium Hydrox/Alum Hydrox 30 ML ORAL.SUSP PO (18:32)
[2022-03-13] MEDS: PHENobarb/Hyoscy/Atropine/Scop 10 ML ELIXIR PO (18:33)
[2022-03-13] MEDS: Lidocaine HCl Viscous 2 % 15 ML SOLUTION MUCOUS MEM (18:34)
[2022-03-13 20:36] LABS: Glucose, Whole Blood 189 mg/dL (60-115)
[2022-03-13] MEDS: Insulin Glargine,Hum.rec.anlog 100 UNIT/ML 10 ML VIAL 28 UNIT SUBCUT (20:41)
[2022-03-13] MEDS: traZODone HCL 100 MG TABLET 200 MG PO (20:42)
[2022-03-13] MEDS: Acetaminophen 325 MG TABLET 650 MG PO (20:42)
[2022-03-13] MEDS: Atorvastatin Calcium 80 MG TABLET PO (20:42)
[2022-03-14] VITALS (7 sets, daily range): BP systolic 130–152; BP diastolic 68–83; PULSE 66–80; RESP 14–18; TEMP 36.1–36.8; O2SAT 78–97
[2022-03-14] MEDS: Omeprazole 20 MG CAPSULE.DR PO ×2 (05:53→16:47)
[2022-03-14] MEDS: Levothyroxine Sodium 25 MCG TABLET PO (05:54)
[2022-03-14] MEDS: Levothyroxine Sodium 125 MCG TABLET 250 MCG PO (05:54)
[2022-03-14 06:12] LABS: Glucose, Whole Blood 134 mg/dL (60-115)
[2022-03-14 07:24] LABS: Glucose, Whole Blood 138 mg/dL (60-115)
[2022-03-14] MEDS: clonazePAM 0.5 MG TABLET PO (07:51)
[2022-03-14] MEDS: Gabapentin 600 MG TABLET PO ×3 (07:51→21:14)
[2022-03-14] MEDS: FLUoxetine HCl 20 MG CAPSULE 60 MG PO (07:51)
[2022-03-14] MEDS: Aspirin Enteric Coated 81 MG TABLET.DR PO (07:51)
[2022-03-14] MEDS: Buprenorphine/Naloxone 8/2 mg FILM 1 FILM SUBLINGUAL ×3 (07:52→21:15)
[2022-03-14] MEDS: Loratadine 10 MG TABLET PO (07:52)
[2022-03-14] MEDS: amLODIPine Besylate 5 MG TABLET PO (07:52)
[2022-03-14 11:16] LABS: Glucose, Whole Blood 175 mg/dL (60-115)
[2022-03-14 12:43] LABS: Glucose, Whole Blood 187 mg/dL (60-115)
--- NOTE | 2022-03-14 13:05 | MHC.CM.ED ---
Patient remains in ER. No bed offers have been made yet. T/W reached out to following facilities patient: [facility], [facility], [facility], [facility], [facility], [facility], [facility], [facility], [facility], [facility], [facility], [facility], [facility], [facility], [facility], [facility], [facility]. Continue to monitor for d/c needs.
[2022-03-14] MEDS: Insulin Lispro 100 UNIT/ML 3 ML VIAL SUBCUT ×2 (13:40→20:08)
--- NOTE | 2022-03-14 15:59 | PC.NURSE ---
bedside ultrasound revealed remaining products post d&c will be going to the or. blood bank called and blood is not ready at this time
[2022-03-14 18:27] LABS: Glucose, Whole Blood 189 mg/dL (60-115)
[2022-03-14] MEDS: Atorvastatin Calcium 80 MG TABLET PO (21:14)
[2022-03-14] MEDS: Insulin Glargine,Hum.rec.anlog 100 UNIT/ML 10 ML VIAL 28 UNIT SUBCUT (21:14)
[2022-03-14] MEDS: traZODone HCL 100 MG TABLET 200 MG PO (21:14)
[2022-03-14] MEDS: Acetaminophen 325 MG TABLET 650 MG PO (21:15)
[2022-03-15] MEDS: Omeprazole 20 MG CAPSULE.DR PO (05:55)
[2022-03-15] MEDS: Levothyroxine Sodium 125 MCG TABLET 250 MCG PO (05:55)
[2022-03-15] MEDS: Levothyroxine Sodium 25 MCG TABLET PO (05:55)
[2022-03-15 06:00] VITALS: BP 141/87; PULSE 75; RESP 16; TEMP 36.8; O2SAT 99
[2022-03-15 06:14] LABS: Glucose, Whole Blood 174 mg/dL (60-115)
[2022-03-15 07:07] LABS: Glucose, Whole Blood 165 mg/dL (60-115)
[2022-03-15] MEDS: FLUoxetine HCl 20 MG CAPSULE 60 MG PO (08:06)
[2022-03-15] MEDS: Buprenorphine/Naloxone 8/2 mg FILM 1 FILM SUBLINGUAL ×4 (08:06→20:04)
[2022-03-15] MEDS: Aspirin Enteric Coated 81 MG TABLET.DR PO (08:07)
[2022-03-15] MEDS: amLODIPine Besylate 5 MG TABLET PO (08:07)
[2022-03-15] MEDS: Gabapentin 600 MG TABLET PO ×4 (08:07→20:04)
[2022-03-15] MEDS: Loratadine 10 MG TABLET PO (08:07)
[2022-03-15] MEDS: clonazePAM 0.5 MG TABLET PO (08:56)
--- NOTE | 2022-03-15 11:01 | PC.NURSE ---
CANNOT CHART AGAINST HER LIDOCAINE PATCH GREYED OUT ON AUG FOR TODAY AT 9AM, SHE REFUSED ANYWAY AND ORDER WILL BE CHANGED TO PRN FOR THIS MEDICATION SHE DAILY REFUSES
[2022-03-15 11:42] VITALS: BP 141/87; PULSE 75; O2SAT 99
[2022-03-15 12:09] LABS: Glucose, Whole Blood 176 mg/dL (60-115)
[2022-03-15] MEDS: Insulin Lispro 100 UNIT/ML 3 ML VIAL SUBCUT (12:21)
[2022-03-15 12:53] VITALS: BP 131/69; PULSE 80; RESP 14
[2022-03-15 14:29] VITALS: BP 136/72; PULSE 90
--- NOTE | 2022-03-15 14:45 | MHC.CM.ED ---
Spoke with Aurora at [facility] via telephone at [phone]. [facility] is trying to see if they can accommodate patient's weight. They are not making a bariatric unit or room. Clinical updates sent via [employer] at Aurora's request, including physical therapy updates. Continue to monitor for d/c needs.
[2022-03-15 19:31] VITALS: BP 150/84; PULSE 74; RESP 20; TEMP 36.2; O2SAT 95
[2022-03-15] MEDS: Atorvastatin Calcium 80 MG TABLET PO (20:05)
[2022-03-15] MEDS: Insulin Glargine,Hum.rec.anlog 100 UNIT/ML 10 ML VIAL 28 UNIT SUBCUT (20:05)
[2022-03-15] MEDS: Acetaminophen 325 MG TABLET 650 MG PO (20:08)
[2022-03-15] MEDS: traZODone HCL 100 MG TABLET 200 MG PO (20:08)
--- NOTE | 2022-03-15 20:44 | PC.NURSE ---
Patient assisted with rolling from [id number] to change all bed linens, provide honey-care, and change purewick. She is able to roll with assistance. Pillows and blankets adjusted for comfort.
[2022-03-15 23:18] VITALS: RESP 19
[2022-03-16] VITALS (8 sets, daily range): BP systolic 130–156; BP diastolic 64–86; PULSE 64–89; RESP 18–19; TEMP 36.2; O2SAT 93–95
[2022-03-16 00:11] LABS: Glucose, Whole Blood 206 mg/dL (60-115)
--- NOTE | 2022-03-16 05:39 | PC.NURSE ---
PT GIVEN BED BATH. LINEN CHANGED AND WARM BLANKET GIVEN
[2022-03-16] MEDS: Levothyroxine Sodium 25 MCG TABLET PO (06:06)
[2022-03-16] MEDS: Omeprazole 20 MG CAPSULE.DR PO ×2 (06:06→15:41)
[2022-03-16] MEDS: Levothyroxine Sodium 125 MCG TABLET 250 MCG PO (06:06)
[2022-03-16 06:34] LABS: Glucose, Whole Blood 136 mg/dL (60-115)
--- NOTE | 2022-03-16 06:43 | PC.NURSE ---
BG checked and patient provided with warm breakfast tray. Call celaya is within reach.
[2022-03-16] MEDS: FLUoxetine HCl 20 MG CAPSULE 60 MG PO (08:30)
[2022-03-16] MEDS: Loratadine 10 MG TABLET PO (08:30)
[2022-03-16] MEDS: Aspirin Enteric Coated 81 MG TABLET.DR PO (08:30)
[2022-03-16] MEDS: amLODIPine Besylate 5 MG TABLET PO (08:30)
[2022-03-16] MEDS: clonazePAM 0.5 MG TABLET PO (08:30)
[2022-03-16] MEDS: Gabapentin 600 MG TABLET PO ×3 (08:31→20:19)
[2022-03-16] MEDS: Buprenorphine/Naloxone 8/2 mg FILM 1 FILM SUBLINGUAL ×3 (08:31→20:19)
[2022-03-16 11:50] LABS: Glucose, Whole Blood 181 mg/dL (60-115)
[2022-03-16] MEDS: Insulin Lispro 100 UNIT/ML 3 ML VIAL SUBCUT ×2 (11:52→18:19)
[2022-03-16 13:02] LABS: TSH reflex Free T4 0.85 uIU/mL (0.32-4.0)
--- NOTE | 2022-03-16 13:46 | MHC.CM.PN ---
This caption writer placed f/u call to Aliyah @ [facility], she reports not getting all updates from [facility] on 03/15 due to a fax issue on her end. Sent updates via secure email. She plans to review them and then contact our team.
[2022-03-16 15:38] LABS: Glucose, Whole Blood 221 mg/dL (60-115)
[2022-03-16] MEDS: Atorvastatin Calcium 80 MG TABLET PO (20:18)
[2022-03-16] MEDS: Insulin Glargine,Hum.rec.anlog 100 UNIT/ML 10 ML VIAL 28 UNIT SUBCUT (20:20)
[2022-03-16] MEDS: Acetaminophen 325 MG TABLET 650 MG PO (20:22)
[2022-03-16] MEDS: traZODone HCL 100 MG TABLET 200 MG PO (20:22)
[2022-03-17] MEDS: Levothyroxine Sodium 125 MCG TABLET 250 MCG PO (05:43)
[2022-03-17] MEDS: Omeprazole 20 MG CAPSULE.DR PO ×2 (05:43→16:53)
[2022-03-17] MEDS: Levothyroxine Sodium 25 MCG TABLET PO (05:43)
[2022-03-17 07:15] LABS: Glucose, Whole Blood 120 mg/dL (60-115)
[2022-03-17] MEDS: Gabapentin 600 MG TABLET PO ×3 (08:47→20:47)
[2022-03-17] MEDS: Loratadine 10 MG TABLET PO (08:48)
[2022-03-17] MEDS: Buprenorphine/Naloxone 8/2 mg FILM 1 FILM SUBLINGUAL ×3 (08:48→20:47)
[2022-03-17] MEDS: amLODIPine Besylate 5 MG TABLET PO (08:48)
[2022-03-17] MEDS: clonazePAM 0.5 MG TABLET PO (08:48)
[2022-03-17] MEDS: FLUoxetine HCl 20 MG CAPSULE 60 MG PO (08:48)
[2022-03-17] MEDS: Acetaminophen 325 MG TABLET 650 MG PO ×2 (08:48→20:51)
[2022-03-17] MEDS: Aspirin Enteric Coated 81 MG TABLET.DR PO (08:49)
[2022-03-17 08:52] VITALS: BP 113/62; PULSE 81; RESP 20; O2SAT 94
[2022-03-17 11:41] VITALS: BP 113/62; PULSE 81; O2SAT 94
--- NOTE | 2022-03-17 12:07 | PC.NURSE ---
pt was incontinent of feces, pt given complete bed bath, powder, lotion. pt linens and pad changed. new purewick in place
[2022-03-17 13:16] LABS: Glucose, Whole Blood 184 mg/dL (60-115)
[2022-03-17] MEDS: Insulin Lispro 100 UNIT/ML 3 ML VIAL SUBCUT ×2 (13:19→18:07)
[2022-03-17 14:23] VITALS: BP 113/62; PULSE 81; O2SAT 94
[2022-03-17 18:07] LABS: Glucose, Whole Blood 165 mg/dL (60-115)
[2022-03-17] MEDS: Atorvastatin Calcium 80 MG TABLET PO (20:47)
[2022-03-17] MEDS: Insulin Glargine,Hum.rec.anlog 100 UNIT/ML 10 ML VIAL 28 UNIT SUBCUT (20:47)
[2022-03-17] MEDS: traZODone HCL 100 MG TABLET 200 MG PO (20:51)
[2022-03-17 20:53] LABS: Glucose, Whole Blood 176 mg/dL (60-115)
--- NOTE | 2022-03-17 20:55 | PC.NURSE ---
Pt aox4. Breaths are even and unlabored. Normal heart rate. Abd soft and nontender. Skin is warm pink and dry. Pt reports I am so happy refering to the of her first granddaughter. Reports generalized body pain, 01/11. Pt medicated and aware of plan of care.
--- NOTE | 2022-03-18 01:12 | PC.NURSE ---
Pt sleeping at the bedside. Breaths are even and unlabored with equal chest rises. Will continue to monitor.
--- NOTE | 2022-03-18 02:08 | PC.NURSE ---
PT GIVEN ETHAN CARE, PUREWICK CHANGED AND BED PAD CHANGED. Barrier cream applied
--- NOTE | 2022-03-18 03:43 | PC.NURSE ---
Pt sleeping. Breahts even and unlabored with equal chest rises. Will continue to monitor.
[2022-03-18] MEDS: Omeprazole 20 MG CAPSULE.DR PO ×2 (06:10→15:43)
[2022-03-18] MEDS: Levothyroxine Sodium 125 MCG TABLET 250 MCG PO (06:10)
[2022-03-18] MEDS: Levothyroxine Sodium 25 MCG TABLET PO (06:10)
--- NOTE | 2022-03-18 06:12 | PC.NURSE ---
PT GIVEN BED BATH. LINEN CHANGED AND PUREWICK REPLACED. BARRIER CREAM APPLIED TO BOTTOM AND BABY POWDER APPLIED TO SKIN FOLDS. PT FEET MOISTURIZED. PT GIVEN NEW MCKENNA AND WARM BLANKETS. PUREWICK CANISTER EMPTIED
[2022-03-18 06:17] VITALS: BP 145/69; PULSE 81; RESP 14; TEMP 36.6; O2SAT 95
[2022-03-18 06:19] VITALS: BMI 62.1
[2022-03-18 06:42] LABS: Glucose, Whole Blood 187 mg/dL (60-115)
[2022-03-18] MEDS: Insulin Lispro 100 UNIT/ML 3 ML VIAL SUBCUT ×2 (06:47→13:13)
[2022-03-18] MEDS: FLUoxetine HCl 20 MG CAPSULE 60 MG PO (08:08)
[2022-03-18] MEDS: clonazePAM 0.5 MG TABLET PO (08:09)
[2022-03-18] MEDS: amLODIPine Besylate 5 MG TABLET PO (08:09)
[2022-03-18] MEDS: Loratadine 10 MG TABLET PO (08:09)
[2022-03-18] MEDS: Aspirin Enteric Coated 81 MG TABLET.DR PO (08:09)
[2022-03-18] MEDS: Gabapentin 600 MG TABLET PO ×3 (08:09→23:30)
[2022-03-18] MEDS: Buprenorphine/Naloxone 8/2 mg FILM 1 FILM SUBLINGUAL ×3 (08:10→23:30)
[2022-03-18 11:14] VITALS: BP 118/63; PULSE 71; RESP 15; TEMP 36.4; O2SAT 98
[2022-03-18 11:50] LABS: Glucose, Whole Blood 172 mg/dL (60-115)
[2022-03-18 16:20] LABS: COVID-19 Test Negative (Negative); IDNOW Serial# 55D5AD1C
[2022-03-18 20:47] VITALS: BP 152/83; PULSE 73; RESP 18; TEMP 36.3; O2SAT 92
[2022-03-18 20:51] LABS: Glucose, Whole Blood 179 mg/dL (60-115)
[2022-03-18 23:13] VITALS: BP 135/72; PULSE 82; RESP 15; TEMP 36.6; O2SAT 92
[2022-03-18 23:23] LABS: Glucose, Whole Blood 215 mg/dL (60-115)
[2022-03-18] MEDS: Insulin Glargine,Hum.rec.anlog 100 UNIT/ML 10 ML VIAL 28 UNIT SUBCUT (23:30)
[2022-03-18] MEDS: Atorvastatin Calcium 80 MG TABLET PO (23:30)
[2022-03-18] MEDS: Acetaminophen 325 MG TABLET 650 MG PO (23:38)
[2022-03-18] MEDS: traZODone HCL 100 MG TABLET 200 MG PO (23:38)
--- NOTE | 2022-03-18 23:41 | PC.NURSE ---
Addendum entered by Sukhjinder Fox 03/19/22 07:16: Previous day patient insulin not given due to not eating dinner. Original Note: pt did not eat her diner, later on pt took a ham sandwhich and medicated with her night time medications. tylenol for sleep and trazadone at pt request. pt is calm cooperative, skin pink warm and dry, alert oriented, needs at bedside. pt watching tv at this time no s/s of distress. plan is to find placement.
[2022-03-19 05:34] VITALS: BP 128/68; PULSE 74; RESP 16; TEMP 36.6; O2SAT 95
[2022-03-19] MEDS: Levothyroxine Sodium 25 MCG TABLET PO (06:58)
[2022-03-19] MEDS: Omeprazole 20 MG CAPSULE.DR PO ×2 (06:58→15:34)
[2022-03-19] MEDS: Levothyroxine Sodium 125 MCG TABLET 250 MCG PO (06:59)
[2022-03-19 07:09] LABS: Glucose, Whole Blood 131 mg/dL (60-115)
[2022-03-19 09:14] VITALS: BP 126/68; PULSE 68; RESP 12
[2022-03-19] MEDS: Buprenorphine/Naloxone 8/2 mg FILM 1 FILM SUBLINGUAL ×3 (09:17→20:17)
[2022-03-19] MEDS: FLUoxetine HCl 20 MG CAPSULE 60 MG PO (09:17)
[2022-03-19] MEDS: Loratadine 10 MG TABLET PO (09:18)
[2022-03-19] MEDS: clonazePAM 0.5 MG TABLET PO (09:18)
[2022-03-19] MEDS: amLODIPine Besylate 5 MG TABLET PO (09:18)
[2022-03-19] MEDS: Aspirin Enteric Coated 81 MG TABLET.DR PO (09:18)
[2022-03-19] MEDS: Gabapentin 600 MG TABLET PO ×3 (09:20→20:16)
[2022-03-19 12:33] LABS: Glucose, Whole Blood 118 mg/dL (60-115)
[2022-03-19 17:38] LABS: Glucose, Whole Blood 176 mg/dL (60-115)
[2022-03-19] MEDS: Insulin Lispro 100 UNIT/ML 3 ML VIAL SUBCUT (18:48)
[2022-03-19] MEDS: Atorvastatin Calcium 80 MG TABLET PO (20:16)
[2022-03-19] MEDS: Insulin Glargine,Hum.rec.anlog 100 UNIT/ML 10 ML VIAL 28 UNIT SUBCUT (20:16)
[2022-03-19] MEDS: traZODone HCL 100 MG TABLET 200 MG PO (20:17)
[2022-03-19] MEDS: Acetaminophen 325 MG TABLET 650 MG PO (20:17)
[2022-03-20] VITALS: BP 138/65; PULSE 64; RESP 16; TEMP 36.8; O2SAT 96
--- NOTE | 2022-03-20 02:02 | PC.NURSE ---
patient sleeping. resp are equal and unlabored. call celaya within reach, able to make needs known. will continue to monitor
[2022-03-20 06:00] VITALS: BP 136/70; PULSE 66; RESP 16; TEMP 36.7; O2SAT 95
[2022-03-20] MEDS: Omeprazole 20 MG CAPSULE.DR PO ×2 (06:13→17:27)
[2022-03-20] MEDS: Levothyroxine Sodium 25 MCG TABLET PO (06:14)
[2022-03-20] MEDS: Levothyroxine Sodium 125 MCG TABLET 250 MCG PO (06:14)
[2022-03-20 06:20] LABS: Glucose, Whole Blood 129 mg/dL (60-115)
[2022-03-20 08:17] LABS: Glucose, Whole Blood 150 mg/dL (60-115)
[2022-03-20] MEDS: FLUoxetine HCl 20 MG CAPSULE 60 MG PO (09:04)
[2022-03-20] MEDS: amLODIPine Besylate 5 MG TABLET PO (09:08)
[2022-03-20] MEDS: Loratadine 10 MG TABLET PO (09:08)
[2022-03-20] MEDS: Aspirin Enteric Coated 81 MG TABLET.DR PO (09:08)
[2022-03-20] MEDS: Gabapentin 600 MG TABLET PO ×3 (09:08→20:49)
[2022-03-20] MEDS: Buprenorphine/Naloxone 8/2 mg FILM 1 FILM SUBLINGUAL ×3 (09:09→20:49)
[2022-03-20 09:11] VITALS: BP 140/80; PULSE 79; RESP 18; O2SAT 94
[2022-03-20] MEDS: clonazePAM 0.5 MG TABLET PO (10:01)
[2022-03-20 12:35] VITALS: BP 140/80; PULSE 79; O2SAT 94
--- NOTE | 2022-03-20 12:46 | MHC.CM.PN ---
Message into [facility] for f/u w/ Aliyah.
[2022-03-20 13:00] LABS: Glucose, Whole Blood 186 mg/dL (60-115)
[2022-03-20] MEDS: Insulin Lispro 100 UNIT/ML 3 ML VIAL SUBCUT ×2 (13:09→18:16)
--- NOTE | 2022-03-20 14:28 | MHC.CM.PN ---
PATIENT TELLS THIS INSTRUMENT MAKER APPRENTICE THAT SHE WANTS TO GO HOME. WHEN ASKED IF SHE HAS A HOME TO GO TO, SHE STATES YES, OF COURSE. I STILL HAVE MY APARTMENT PATIENT STATES THAT SHE FEELS SHE CAN MAKE IT UP AND DOWN HER STAIRS, EVEN IF SHE HAS TO SCOOT . PATIENT WILL TRY AMBULATING WITH P.T. PATIENT STATES THAT SHE WANTS [facility] HOME SUNDAY AND [facility] TRANSPORT MADE AWARE
[2022-03-20 15:37] VITALS: BP 120/50; PULSE 80; RESP 14; TEMP 36.6; O2SAT 98
[2022-03-20 18:10] LABS: Glucose, Whole Blood 174 mg/dL (60-115)
[2022-03-20] MEDS: Atorvastatin Calcium 80 MG TABLET PO (20:49)
[2022-03-20] MEDS: traZODone HCL 100 MG TABLET 200 MG PO (20:49)
[2022-03-20] MEDS: Insulin Glargine,Hum.rec.anlog 100 UNIT/ML 10 ML VIAL 28 UNIT SUBCUT (20:50)
[2022-03-20] MEDS: Acetaminophen 325 MG TABLET 650 MG PO (20:50)
[2022-03-21 06:27] VITALS: BP 136/66; PULSE 77; RESP 18; TEMP 36.1; O2SAT 95
[2022-03-21] MEDS: Levothyroxine Sodium 125 MCG TABLET 250 MCG PO (06:29)
[2022-03-21] MEDS: Omeprazole 20 MG CAPSULE.DR PO ×2 (06:29→19:00)
[2022-03-21] MEDS: Levothyroxine Sodium 25 MCG TABLET PO (06:30)
[2022-03-21 07:03] LABS: Glucose, Whole Blood 172 mg/dL (60-115)
[2022-03-21 07:23] VITALS: BP 149/77; PULSE 77; RESP 20; TEMP 36.3; O2SAT 96
--- NOTE | 2022-03-21 08:24 | MHC.CM.ED ---
Addendum entered by Lynne Melo 03/21/22 15:25: Patient requesting to speak with case management. T/W met with patient. Patient is hoping to discharge home on Sunday. She is active with [facility] for Suboxone in [place]. Patient doesn't feel she will be able to get to suboxone clinic due to being home bound. Referral made to [facility] to see if they can accept patient. Original Note: Patient remains in ER. Spoke with Aurora at [facility] at [phone]. Clinical is still under review by their nurse. 01/09/2022 discharge summary sent via [facility] as requested. Continue to monitor for d/c needs.
[2022-03-21] MEDS: Aspirin Enteric Coated 81 MG TABLET.DR PO (08:49)
[2022-03-21] MEDS: Buprenorphine/Naloxone 8/2 mg FILM 1 FILM SUBLINGUAL ×3 (08:49→20:51)
[2022-03-21] MEDS: FLUoxetine HCl 20 MG CAPSULE 60 MG PO (08:49)
[2022-03-21] MEDS: amLODIPine Besylate 5 MG TABLET PO (08:50)
[2022-03-21] MEDS: Gabapentin 600 MG TABLET PO ×3 (08:50→20:51)
[2022-03-21] MEDS: clonazePAM 0.5 MG TABLET PO (08:50)
[2022-03-21] MEDS: Insulin Lispro 100 UNIT/ML 3 ML VIAL SUBCUT ×3 (08:50→19:00)
[2022-03-21] MEDS: Loratadine 10 MG TABLET PO (08:58)
[2022-03-21 11:23] VITALS: BP 149/77; PULSE 77; O2SAT 96
[2022-03-21 12:00] LABS: Glucose, Whole Blood 161 mg/dL (60-115)
[2022-03-21 18:15] LABS: Glucose, Whole Blood 201 mg/dL (60-115)
[2022-03-21] MEDS: Acetaminophen 325 MG TABLET 650 MG PO (20:51)
[2022-03-21] MEDS: traZODone HCL 100 MG TABLET 200 MG PO (20:51)
[2022-03-21] MEDS: Insulin Glargine,Hum.rec.anlog 100 UNIT/ML 10 ML VIAL 28 UNIT SUBCUT (20:51)
[2022-03-21] MEDS: Atorvastatin Calcium 80 MG TABLET PO (20:51)
[2022-03-21 23:17] VITALS: BP 143/64; PULSE 72; RESP 17; TEMP 36.7; O2SAT 94
[2022-03-22 01:47] VITALS: RESP 20
[2022-03-22] MEDS: Levothyroxine Sodium 25 MCG TABLET PO (05:50)
[2022-03-22] MEDS: Omeprazole 20 MG CAPSULE.DR PO ×2 (05:51→17:32)
[2022-03-22] MEDS: Levothyroxine Sodium 125 MCG TABLET 250 MCG PO (05:51)
[2022-03-22 05:53] VITALS: BP 142/76; PULSE 78; RESP 17; TEMP 36.7; O2SAT 94
[2022-03-22 07:30] LABS: Glucose, Whole Blood 139 mg/dL (60-115)
[2022-03-22 07:45] VITALS: BP 147/78; PULSE 81; RESP 18; TEMP 36.7; O2SAT 94
[2022-03-22] MEDS: Aspirin Enteric Coated 81 MG TABLET.DR PO (08:46)
[2022-03-22] MEDS: FLUoxetine HCl 20 MG CAPSULE 60 MG PO (08:46)
[2022-03-22] MEDS: amLODIPine Besylate 5 MG TABLET PO (08:47)
[2022-03-22] MEDS: Loratadine 10 MG TABLET PO (08:47)
[2022-03-22] MEDS: clonazePAM 0.5 MG TABLET PO (08:47)
[2022-03-22] MEDS: Gabapentin 600 MG TABLET PO ×3 (08:47→21:50)
[2022-03-22] MEDS: Buprenorphine/Naloxone 8/2 mg FILM 1 FILM SUBLINGUAL ×3 (08:48→21:50)
[2022-03-22 12:00] VITALS: BP 147/78; PULSE 81; O2SAT 94
[2022-03-22 13:11] LABS: Glucose, Whole Blood 211 mg/dL (60-115)
[2022-03-22 14:24] VITALS: BP 132/69; PULSE 83; TEMP 36.7
--- NOTE | 2022-03-22 14:42 | MHC.CM.ED ---
Addendum entered by Lynne Melo 03/22/22 15:05: Received telephone call from Noel at [facility]. They are willing to accept patien with a start of care of Sunday 03/25. Original Note: Patient remains in ER. [facility] requesting [facility] signed by patient. Paperwork signed and faxed back to Aliyah at [facility]. Patient is still hoping to go home with VNA services. Patient is active with [facility] in [place] for Suboxone. She will be home bound at discharge and will not be able to get to [facility]. Referral has been made to [facility] in [facility]. No response has been received yet. T/W attempted to speak to intake at [facility] intake. Left message requesting return telephone call. Continue to monitor for d/c needs.
[2022-03-22 19:06] LABS: Glucose, Whole Blood 196 mg/dL (60-115)
[2022-03-22] MEDS: Insulin Lispro 100 UNIT/ML 3 ML VIAL SUBCUT (19:18)
[2022-03-22] MEDS: traZODone HCL 100 MG TABLET 200 MG PO (21:50)
[2022-03-22] MEDS: Atorvastatin Calcium 80 MG TABLET PO (21:50)
[2022-03-22] MEDS: Acetaminophen 325 MG TABLET 650 MG PO (21:50)
[2022-03-22] MEDS: Insulin Glargine,Hum.rec.anlog 100 UNIT/ML 10 ML VIAL 28 UNIT SUBCUT (21:50)
--- NOTE | 2022-03-22 21:51 | MHC.CM.ED ---
CM spoke with patient shilpa. Pt is highly motivated to go home on Sunday. Pt tells CM that she is now able to stand up by herself with her walker and wants to continue her therapy at home. States she has decided she cannot be bed/home bound forever and has to work to be more independent at home. Wants to be able to help her children. Pt has a good affect. Pt states PT will be in tomorrow. CM to follow for d/c needs.
--- NOTE | 2022-03-23 00:50 | PC.NURSE ---
pt a&ox3, reporting 9/10 pain, medicated per provider order - plan for pt to d/c home on Sunday. pt cleaned and repositioned/purewick changed by ict support technicians.
[2022-03-23 07:18] LABS: Glucose, Whole Blood 147 mg/dL (60-115)
[2022-03-23] MEDS: amLODIPine Besylate 5 MG TABLET PO (08:23)
[2022-03-23] MEDS: clonazePAM 0.5 MG TABLET PO (08:23)
[2022-03-23] MEDS: Aspirin Enteric Coated 81 MG TABLET.DR PO (08:24)
[2022-03-23] MEDS: Gabapentin 600 MG TABLET PO ×3 (08:24→20:44)
[2022-03-23] MEDS: Loratadine 10 MG TABLET PO (08:24)
[2022-03-23] MEDS: FLUoxetine HCl 20 MG CAPSULE 60 MG PO (08:24)
[2022-03-23] MEDS: Buprenorphine/Naloxone 8/2 mg FILM 1 FILM SUBLINGUAL ×3 (08:24→20:44)
[2022-03-23 09:31] VITALS: BP 122/62; PULSE 83; RESP 18; O2SAT 93
[2022-03-23] MEDS: Levothyroxine Sodium 25 MCG TABLET PO (10:06)
[2022-03-23] MEDS: Omeprazole 20 MG CAPSULE.DR PO ×2 (10:06→15:33)
[2022-03-23] MEDS: Levothyroxine Sodium 125 MCG TABLET 250 MCG PO (10:06)
[2022-03-23 11:25] VITALS: BP 122/62; PULSE 83; O2SAT 93
[2022-03-23 13:16] LABS: Glucose, Whole Blood 221 mg/dL (60-115)
[2022-03-23] MEDS: Insulin Lispro 100 UNIT/ML 3 ML VIAL SUBCUT ×2 (14:16→18:41)
[2022-03-23 17:34] LABS: Glucose, Whole Blood 220 mg/dL (60-115)
[2022-03-23 18:42] VITALS: BP 125/66; PULSE 84; RESP 18; TEMP 36.6; O2SAT 98
[2022-03-23] MEDS: Acetaminophen 325 MG TABLET 650 MG PO (20:44)
[2022-03-23] MEDS: Insulin Glargine,Hum.rec.anlog 100 UNIT/ML 10 ML VIAL 28 UNIT SUBCUT (20:44)
[2022-03-23] MEDS: traZODone HCL 100 MG TABLET 200 MG PO (20:44)
[2022-03-23] MEDS: Atorvastatin Calcium 80 MG TABLET PO (20:44)
[2022-03-23 20:57] VITALS: BP 137/78; PULSE 75; RESP 18; TEMP 36.4; O2SAT 100
[2022-03-24] VITALS (7 sets, daily range): BP systolic 131–175; BP diastolic 70–82; PULSE 72–90; RESP 14–18; TEMP 36.6–36.8; O2SAT 95–98
--- NOTE | 2022-03-24 01:14 | PC.NURSE ---
PT purewick changed and bed pads changed . Pt given honey care. PT given ice water and call celaya placed within reach
[2022-03-24] MEDS: Omeprazole 20 MG CAPSULE.DR PO ×2 (06:17→16:50)
[2022-03-24] MEDS: Levothyroxine Sodium 125 MCG TABLET 250 MCG PO (06:18)
[2022-03-24] MEDS: Levothyroxine Sodium 25 MCG TABLET PO (06:18)
--- NOTE | 2022-03-24 06:27 | PC.NURSE ---
PT GIVEN BED BATH. BED LINEN CHANGED AND PADS CHANGED. PT GIVEN [place] and WARM BLANKET. Call celaya placed in reach.
[2022-03-24 07:12] LABS: Glucose, Whole Blood 159 mg/dL (60-115)
--- NOTE | 2022-03-24 08:57 | MHC.CM.ED ---
Addendum entered by Lynne Melo 03/24/22 11:42: EMS arrived to transport patient home. Patient told EMS they would have to transport her to the 2nd floor. Patient informed case management on 03/20 that she would scoot up the stairs if she had to! Patient now realizes this is not realistic. T/W placed call to Aliyah at [facility] to see if nursing has finished reviewing patient. Original Note: Patient is going to discharge home with [facility]. They will provide residential, PT and OT. They will also transport Suboxone from [facility] in [place]. Patient aware and agreeable. Ajay SANTOS booked for 10am. Med [facility] with chart. Patient is requesting all home medications be sent to her pharmacy because she does not have any at home. SANDRA Diaz ordering now. Patient, Nichelle RN, Elizabeth FLORES aware of discharge plan.
[2022-03-24] MEDS: FLUoxetine HCl 20 MG CAPSULE 60 MG PO (08:59)
[2022-03-24] MEDS: Loratadine 10 MG TABLET PO (09:00)
[2022-03-24] MEDS: Gabapentin 600 MG TABLET PO ×3 (09:00→21:49)
[2022-03-24] MEDS: clonazePAM 0.5 MG TABLET PO (09:00)
[2022-03-24] MEDS: Aspirin Enteric Coated 81 MG TABLET.DR PO (09:00)
[2022-03-24] MEDS: amLODIPine Besylate 5 MG TABLET PO (09:00)
[2022-03-24] MEDS: Insulin Lispro 100 UNIT/ML 3 ML VIAL SUBCUT ×2 (09:03→16:54)
[2022-03-24] MEDS: Buprenorphine/Naloxone 8/2 mg FILM 1 FILM SUBLINGUAL ×3 (09:03→21:49)
--- NOTE | 2022-03-24 10:45 | PC.NURSE ---
ems arrived to ed stating that they are unable to transport pt to her apartment due to weight constraints. full charge bookkeeper and md aware.
[2022-03-24 12:13] LABS: Glucose, Whole Blood 160 mg/dL (60-115)
--- NOTE | 2022-03-24 16:19 | MHC.CM.ED ---
Met with patient to explain transportation issues. Patient's apartment only had 1 flight of stairs available at the time of her last discharge. The stairs and hallway are small. A stair chair can be used to bring the patient up the stairs. However, there is not enough space at the top of the stairs to safely place the stair chair. Stair chair also can't be safely turned down the day to continue to transport patient into her apartment. Betzaida states the back stairs were under construction at the time. They are now fixed and they are wider than the front step. Derek from [facility] made aware and asked to go check the stairs to the apartment. Received notification from Derek that [facility] doesn't have the bariatric equipment available to transport bariatric patients up stairs. This equipment will not be available for 25 weeks. Attempted to book transport [facility]. [facility] unable to transport today, Sunday. Sunday or Sunday at this time. [facility] said to call Sunday to try to see if they are available. Dajuan, [employer], aware and spoke with ALFONSO Pool. Yrn spoke [facility] Oleksandr at [facility]. He will look at the back stairs and try to formulate an appointment transport plan. Betzaida made aware by Ashleigh, ed case manager. Continue to monitor for d/c needs.
[2022-03-24 16:49] LABS: Glucose, Whole Blood 217 mg/dL (60-115)
[2022-03-24] MEDS: Acetaminophen 325 MG TABLET 650 MG PO (16:50)
--- NOTE | 2022-03-24 16:53 | PC.NURSE ---
ASSUMED CARE OF PATIENT AT 1500 ,1600 ROUNDING DONE ,BLOOD SUGAR TAKEN AND FRESH WATER GIVEN .
[2022-03-24 21:24] LABS: Glucose, Whole Blood 179 mg/dL (60-115)
--- NOTE | 2022-03-24 21:24 | PC.NURSE ---
patient received hs care ,bed bath given bed pad change ,lotion apply ,vitals sign taken ,blood sugar done ,new purewick in place ,purewick canistor emlpy 1000 ml out put ,patient ate 100 % of dinner ,patient had a cup of coffee and 2 sun butter and jelly sandwich for snack ,patient on the phone with her boyfriend .
[2022-03-24] MEDS: traZODone HCL 100 MG TABLET 200 MG PO (21:49)
[2022-03-24] MEDS: Atorvastatin Calcium 80 MG TABLET PO (21:49)
[2022-03-24] MEDS: Insulin Glargine,Hum.rec.anlog 100 UNIT/ML 10 ML VIAL 28 UNIT SUBCUT (21:49)
[2022-03-25] MEDS: Omeprazole 20 MG CAPSULE.DR PO ×2 (06:44→16:42)
[2022-03-25] MEDS: Levothyroxine Sodium 125 MCG TABLET 250 MCG PO (06:44)
[2022-03-25] MEDS: Levothyroxine Sodium 25 MCG TABLET PO (06:45)
[2022-03-25 07:23] LABS: Glucose, Whole Blood 147 mg/dL (60-115)
[2022-03-25] MEDS: Loratadine 10 MG TABLET PO (08:30)
[2022-03-25] MEDS: FLUoxetine HCl 20 MG CAPSULE 60 MG PO (08:30)
[2022-03-25] MEDS: amLODIPine Besylate 5 MG TABLET PO (08:30)
[2022-03-25] MEDS: Aspirin Enteric Coated 81 MG TABLET.DR PO (08:30)
[2022-03-25] MEDS: Buprenorphine/Naloxone 8/2 mg FILM 1 FILM SUBLINGUAL ×3 (08:30→20:07)
[2022-03-25] MEDS: Gabapentin 600 MG TABLET PO ×3 (08:30→20:07)
[2022-03-25] MEDS: clonazePAM 0.5 MG TABLET PO (08:30)
[2022-03-25 08:33] VITALS: BP 145/72; PULSE 85; RESP 19; O2SAT 96
[2022-03-25 14:40] LABS: Glucose, Whole Blood 310 mg/dL (60-115)
[2022-03-25] MEDS: Insulin Lispro 100 UNIT/ML 3 ML VIAL SUBCUT ×2 (14:45→18:14)
[2022-03-25 16:15] VITALS: BP 154/84; PULSE 83; RESP 18; O2SAT 97
--- NOTE | 2022-03-25 16:51 | PC.NURSE ---
PATIENT HAD A BED BATH ,LINEN CHANGE ,NEW PUREWICK IN PLACE ,PUREWICK CANISTOR EMPTY 900 ML ,LOTION APPLY ,FRESH PITCHER WATER GIVEN FRESH CUP COFFEE AND COOKIE .
[2022-03-25 18:13] LABS: Glucose, Whole Blood 200 mg/dL (60-115)
[2022-03-25] MEDS: Atorvastatin Calcium 80 MG TABLET PO (20:07)
[2022-03-25] MEDS: Insulin Glargine,Hum.rec.anlog 100 UNIT/ML 10 ML VIAL 28 UNIT SUBCUT (20:07)
[2022-03-25] MEDS: traZODone HCL 100 MG TABLET 200 MG PO (20:27)
[2022-03-25 22:03] VITALS: BP 138/79; PULSE 82; RESP 16; O2SAT 99
[2022-03-26] MEDS: Levothyroxine Sodium 125 MCG TABLET 250 MCG PO (06:21)
[2022-03-26] MEDS: Levothyroxine Sodium 25 MCG TABLET PO (06:21)
[2022-03-26] MEDS: Omeprazole 20 MG CAPSULE.DR PO ×2 (06:21→17:05)
[2022-03-26 06:37] LABS: Glucose, Whole Blood 187 mg/dL (60-115)
[2022-03-26] MEDS: Insulin Lispro 100 UNIT/ML 3 ML VIAL SUBCUT ×3 (08:12→17:05)
[2022-03-26] MEDS: Buprenorphine/Naloxone 8/2 mg FILM 1 FILM SUBLINGUAL ×3 (08:14→20:01)
[2022-03-26] MEDS: Gabapentin 600 MG TABLET PO ×3 (08:15→20:01)
[2022-03-26] MEDS: Loratadine 10 MG TABLET PO (08:15)
[2022-03-26] MEDS: FLUoxetine HCl 20 MG CAPSULE 60 MG PO (08:15)
[2022-03-26] MEDS: Aspirin Enteric Coated 81 MG TABLET.DR PO (08:15)
[2022-03-26] MEDS: amLODIPine Besylate 5 MG TABLET PO (08:16)
[2022-03-26 09:45] VITALS: BP 147/73; PULSE 88; RESP 12
[2022-03-26] MEDS: clonazePAM 0.5 MG TABLET PO (09:49)
[2022-03-26 12:23] LABS: Glucose, Whole Blood 222 mg/dL (60-115)
[2022-03-26 14:20] VITALS: RESP 18
[2022-03-26 16:58] LABS: Glucose, Whole Blood 192 mg/dL (60-115)
--- NOTE | 2022-03-26 17:04 | PC.NURSE ---
PATIENT ASK FOR A CUP OF COFFEE AND CHEESE STICK FOR SNACK .
--- NOTE | 2022-03-26 19:41 | PC.NURSE ---
HS CARE GIVEN BED BATH LOTION APPLY ,BED PAD CHANGE ,NEW PERWICK IN PLACE ,PUREWICK CANISTER EMPTY 700 ML OUT PUT ,WARM BLANKET GIVEN FRESH COFFEE ,FRESH WATER ,PATIENT WATCHING TELEVISION .
[2022-03-26] MEDS: Atorvastatin Calcium 80 MG TABLET PO (20:00)
[2022-03-26] MEDS: Insulin Glargine,Hum.rec.anlog 100 UNIT/ML 10 ML VIAL 28 UNIT SUBCUT (20:01)
[2022-03-26] MEDS: Acetaminophen 325 MG TABLET 650 MG PO (20:04)
[2022-03-26] MEDS: traZODone HCL 100 MG TABLET 200 MG PO (20:05)
[2022-03-26 20:06] LABS: Glucose, Whole Blood 195 mg/dL (60-115)
[2022-03-26 21:31] VITALS: BP 142/72; PULSE 75; RESP 18; TEMP 36.7; O2SAT 93
--- NOTE | 2022-03-27 04:50 | PC.NURSE ---
PT GIVEN BED BATH. PUREWICK CHANGED AND BED PAD CHANGED. PT GIVEN WARM BLANKET AND CALL MONTERROSO PLACED IN REACH
[2022-03-27 06:27] VITALS: BP 121/68; PULSE 59; RESP 19; TEMP 36.4; O2SAT 96
[2022-03-27 06:35] LABS: Glucose, Whole Blood 193 mg/dL (60-115)
[2022-03-27] MEDS: Omeprazole 20 MG CAPSULE.DR PO ×2 (06:37→15:58)
[2022-03-27] MEDS: Levothyroxine Sodium 25 MCG TABLET PO (06:38)
[2022-03-27] MEDS: Levothyroxine Sodium 125 MCG TABLET 250 MCG PO (06:38)
[2022-03-27 08:27] VITALS: BP 143/81; PULSE 94; RESP 14; TEMP 37.1; O2SAT 96
[2022-03-27] MEDS: Aspirin Enteric Coated 81 MG TABLET.DR PO (08:42)
[2022-03-27] MEDS: amLODIPine Besylate 5 MG TABLET PO (08:42)
[2022-03-27] MEDS: Insulin Lispro 100 UNIT/ML 3 ML VIAL SUBCUT ×2 (08:42→13:48)
[2022-03-27] MEDS: Loratadine 10 MG TABLET PO (08:42)
[2022-03-27] MEDS: clonazePAM 0.5 MG TABLET PO (08:42)
[2022-03-27] MEDS: Gabapentin 600 MG TABLET PO ×3 (08:42→20:09)
[2022-03-27] MEDS: Buprenorphine/Naloxone 8/2 mg FILM 1 FILM SUBLINGUAL ×3 (08:42→20:09)
[2022-03-27] MEDS: FLUoxetine HCl 20 MG CAPSULE 60 MG PO (08:42)
[2022-03-27 11:57] LABS: Glucose, Whole Blood 225 mg/dL (60-115)
--- NOTE | 2022-03-27 15:26 | MHC.CM.ED ---
Patient remains in ER. Reached out to Dajuan, Recycling Tech, about any progress on being able to transport patient to her apartment. No progress at this time. Patient aware. Received telephone call from Aliyah at [facility]. They will be on-site in the ER on 03/28 at 11am to visit with patient. Continue to monitor for d/c needs.
--- NOTE | 2022-03-27 15:49 | PC.NURSE ---
ASSUMED CARE OF PATIENT AT 1500 ,CALL MONTERROSO WITHIN REACH ,PT ASK FOR A CUP OF COFFEE ,PT WATCHING TELEVISION AT THIS TIME .
--- NOTE | 2022-03-27 16:09 | MHC.CM.ED ---
Received word from Ajay that the chair max is 350 lbs and that they cannot physically lift patient with 4 people secondary to stair construction, both front and back stairs. [facility] called and will come for a site visit on 03/28 at 11 am. Betzaida aware and is very hopeful that [facility] accepts her. Pt is highly motivated to participate in PT and become more mobile. CM following for d/c planning.
[2022-03-27 16:37] LABS: Glucose, Whole Blood 176 mg/dL (60-115)
--- NOTE | 2022-03-27 17:25 | PC.NURSE ---
PT HAD LARGE FIRM BOWEL MOVEMENT ,BED BATH GIVEN ,LOTION APPLY ,CLEAN PERWICK IN PLACE ,700 ML EMPTY FROM [facility] CANESTOR ,WARM BLANKET GIVEN .
--- NOTE | 2022-03-27 18:12 | MHC.CM.ED ---
Current weight 376 lbs.
[2022-03-27] MEDS: traZODone HCL 100 MG TABLET 200 MG PO (20:09)
[2022-03-27] MEDS: Insulin Glargine,Hum.rec.anlog 100 UNIT/ML 10 ML VIAL 28 UNIT SUBCUT (20:09)
[2022-03-27] MEDS: Atorvastatin Calcium 80 MG TABLET PO (20:09)
[2022-03-27] MEDS: Acetaminophen 325 MG TABLET 650 MG PO (20:09)
[2022-03-27 20:45] VITALS: BP 133/67; PULSE 78; RESP 16; TEMP 36.6; O2SAT 93
[2022-03-27 20:46] LABS: Glucose, Whole Blood 223 mg/dL (60-115)
--- NOTE | 2022-03-27 20:46 | PC.NURSE ---
VS [id number] ,BS TAKEN ,FRESH COFFEE WITH CREAM AND SUGAR GTIVEN .
--- NOTE | 2022-03-27 21:00 | PC.NURSE ---
PATIENT ASK FOR 2 SUNBUTTER AND JELLY SANDWICH ALSO FRESH PITCHER WATER GIVEN .
--- NOTE | 2022-03-28 02:07 | PC.NURSE ---
2AM ROUNDING DONE PT ASLEEP ,ANA MARIA WORKING FINE .
--- NOTE | 2022-03-28 04:14 | PC.NURSE ---
made 4 am rounding ,pt asleep ,call celaya within reach .
[2022-03-28] MEDS: Omeprazole 20 MG CAPSULE.DR PO ×2 (05:50→18:54)
[2022-03-28] MEDS: Levothyroxine Sodium 25 MCG TABLET PO (05:50)
[2022-03-28] MEDS: Levothyroxine Sodium 125 MCG TABLET 250 MCG PO (05:50)
[2022-03-28 06:00] VITALS: BP 158/88; PULSE 81; RESP 16; TEMP 36.6; O2SAT 98
--- NOTE | 2022-03-28 06:14 | PC.NURSE ---
PT PUREWICK EMPTY ,900ML OUTPUT EMPTY ,[facility] DONE CREAM APPLY TO BOTTOM ,BED PAD CHANGE FRESH PITCHER WATER GIVEN AND A UP OF TEA ,CALL MONTERROSO WITHIN REACH ,PT WATCHING TELEVISION .
[2022-03-28 06:38] LABS: Glucose, Whole Blood 153 mg/dL (60-115)
[2022-03-28] MEDS: Insulin Lispro 100 UNIT/ML 3 ML VIAL SUBCUT ×3 (07:28→18:55)
--- NOTE | 2022-03-28 08:23 | PC.NURSE ---
PT at bedside patient ambulating with use of walker . patient aware of plan of care .
[2022-03-28] MEDS: Aspirin Enteric Coated 81 MG TABLET.DR PO (08:25)
[2022-03-28] MEDS: clonazePAM 0.5 MG TABLET PO (08:25)
[2022-03-28] MEDS: Buprenorphine/Naloxone 8/2 mg FILM 1 FILM SUBLINGUAL ×3 (08:25→20:16)
[2022-03-28] MEDS: Loratadine 10 MG TABLET PO (08:25)
[2022-03-28] MEDS: Gabapentin 600 MG TABLET PO ×3 (08:25→20:15)
[2022-03-28] MEDS: amLODIPine Besylate 5 MG TABLET PO (08:25)
[2022-03-28] MEDS: FLUoxetine HCl 20 MG CAPSULE 60 MG PO (08:25)
--- NOTE | 2022-03-28 11:03 | PC.NURSE ---
Nurse from [facility] at bedside for consult for admission to facility . patient aware of plan of care .
--- NOTE | 2022-03-28 12:32 | MHC.CM.ED ---
Patient remains in ER. Dominique from [facility] on-site to visit with patient. Additional clinical provided at Dominique's request. Dominique felt the on-site visit went really well. She will need to relay her findings to the providers and quality department to huddle about the ability of the facility to accept patient. Aliyah should reach out to Case Management by with a decision. Patient is aware of this. Continue to monitor for d/c needs.
[2022-03-28 13:20] LABS: Glucose, Whole Blood 212 mg/dL (60-115)
[2022-03-28 18:44] LABS: Glucose, Whole Blood 203 mg/dL (60-115)
[2022-03-28] MEDS: Atorvastatin Calcium 80 MG TABLET PO (20:15)
[2022-03-28] MEDS: Acetaminophen 325 MG TABLET 650 MG PO (20:15)
[2022-03-28] MEDS: traZODone HCL 100 MG TABLET 200 MG PO (20:16)
[2022-03-28] MEDS: Insulin Glargine,Hum.rec.anlog 100 UNIT/ML 10 ML VIAL 28 UNIT SUBCUT (20:17)
--- NOTE | 2022-03-29 04:52 | PC.NURSE ---
03/28/20221929: Patient assisted with cleansing herself and getting ready for bed. Purewick changed and honey care provided/patient assisted with putting on lotion. She is then assisted with repositioning for comfort.
[2022-03-29] MEDS: Levothyroxine Sodium 125 MCG TABLET 250 MCG PO (06:20)
[2022-03-29] MEDS: Levothyroxine Sodium 25 MCG TABLET PO (06:20)
[2022-03-29] MEDS: Omeprazole 20 MG CAPSULE.DR PO ×2 (06:20→15:40)
[2022-03-29 06:34] VITALS: BP 172/92; PULSE 82; RESP 18; TEMP 36.6; O2SAT 97
[2022-03-29 07:30] LABS: Glucose, Whole Blood 178 mg/dL (60-115)
[2022-03-29] MEDS: Insulin Lispro 100 UNIT/ML 3 ML VIAL SUBCUT ×3 (07:33→19:16)
[2022-03-29] MEDS: amLODIPine Besylate 5 MG TABLET PO (08:42)
[2022-03-29] MEDS: FLUoxetine HCl 20 MG CAPSULE 60 MG PO (08:42)
[2022-03-29] MEDS: Aspirin Enteric Coated 81 MG TABLET.DR PO (08:42)
[2022-03-29] MEDS: clonazePAM 0.5 MG TABLET PO (08:42)
[2022-03-29] MEDS: Gabapentin 600 MG TABLET PO ×3 (08:42→20:55)
[2022-03-29] MEDS: Loratadine 10 MG TABLET PO (08:42)
[2022-03-29] MEDS: Buprenorphine/Naloxone 8/2 mg FILM 1 FILM SUBLINGUAL ×3 (08:43→20:55)
[2022-03-29 13:04] LABS: Glucose, Whole Blood 234 mg/dL (60-115)
[2022-03-29 19:16] LABS: Glucose, Whole Blood 220 mg/dL (60-115)
--- NOTE | 2022-03-29 19:21 | PC.NURSE ---
report received from Carissa LEDEZMA. pt resting comfortably on stretcher, eating dinner. poc done and insulin given per aug. will continue to monitor
[2022-03-29] MEDS: Acetaminophen 325 MG TABLET 650 MG PO (20:54)
[2022-03-29] MEDS: Insulin Glargine,Hum.rec.anlog 100 UNIT/ML 10 ML VIAL 28 UNIT SUBCUT (20:55)
[2022-03-29] MEDS: Atorvastatin Calcium 80 MG TABLET PO (20:55)
[2022-03-29] MEDS: traZODone HCL 100 MG TABLET 200 MG PO (20:55)
[2022-03-30] MEDS: Levothyroxine Sodium 125 MCG TABLET 250 MCG PO (06:24)
[2022-03-30] MEDS: Levothyroxine Sodium 25 MCG TABLET PO (06:24)
[2022-03-30] MEDS: Omeprazole 20 MG CAPSULE.DR PO ×2 (06:24→16:42)
--- NOTE | 2022-03-30 06:36 | PC.NURSE ---
pt medicated with morning meds - provided hot water for tea per request. linens and sheets changed, pt cleaned up.
[2022-03-30 06:51] LABS: Glucose, Whole Blood 154 mg/dL (60-115)
[2022-03-30] MEDS: Gabapentin 600 MG TABLET PO ×3 (08:21→21:03)
[2022-03-30] MEDS: Buprenorphine/Naloxone 8/2 mg FILM 1 FILM SUBLINGUAL ×3 (08:21→21:03)
[2022-03-30] MEDS: amLODIPine Besylate 5 MG TABLET PO (08:21)
[2022-03-30] MEDS: clonazePAM 0.5 MG TABLET PO (08:21)
[2022-03-30] MEDS: Loratadine 10 MG TABLET PO (08:21)
[2022-03-30] MEDS: Aspirin Enteric Coated 81 MG TABLET.DR PO (08:22)
[2022-03-30] MEDS: Insulin Lispro 100 UNIT/ML 3 ML VIAL SUBCUT ×3 (08:31→18:35)
[2022-03-30] MEDS: FLUoxetine HCl 20 MG CAPSULE 60 MG PO (08:31)
--- NOTE | 2022-03-30 10:59 | MHC.CM.ED ---
Patient remains in ER. Attempted to reach Aliyah at [facility] via telephone at [phone]. Left message requesting return call about Sunday's on-site visit. Continue to monitor for d/c needs.
[2022-03-30 12:30] LABS: Glucose, Whole Blood 179 mg/dL (60-115)
--- NOTE | 2022-03-30 16:44 | PC.NURSE ---
pt with small bump to left side of her neck; it has been an issue in the past and is starting to bother her now. will pass this info onto the attending.
[2022-03-30 18:32] LABS: Glucose, Whole Blood 204 mg/dL (60-115)
[2022-03-30 20:12] VITALS: BP 139/79; PULSE 79; RESP 19; TEMP 36.4; O2SAT 97
--- NOTE | 2022-03-30 20:43 | PC.NURSE ---
patient care given and purewick changed
[2022-03-30 20:51] LABS: Glucose, Whole Blood 165 mg/dL (60-115)
[2022-03-30] MEDS: Atorvastatin Calcium 80 MG TABLET PO (21:03)
[2022-03-30] MEDS: Insulin Glargine,Hum.rec.anlog 100 UNIT/ML 10 ML VIAL 28 UNIT SUBCUT (21:03)
[2022-03-30] MEDS: traZODone HCL 100 MG TABLET 200 MG PO (21:10)
[2022-03-30] MEDS: Acetaminophen 325 MG TABLET 650 MG PO (21:10)
[2022-03-31 00:13] VITALS: BP 121/73; PULSE 73; RESP 18; TEMP 36.4; O2SAT 95
--- NOTE | 2022-03-31 03:51 | PC.NURSE ---
pt asleep resting comfortably throughout night, purewick intact
[2022-03-31] MEDS: Omeprazole 20 MG CAPSULE.DR PO ×2 (06:17→17:58)
[2022-03-31] MEDS: Levothyroxine Sodium 25 MCG TABLET PO (06:18)
[2022-03-31] MEDS: Levothyroxine Sodium 125 MCG TABLET 250 MCG PO (06:18)
--- NOTE | 2022-03-31 06:51 | MHC.MBSS ---
pt purewick was changed and pericare was given , pads under pt was changed Pain in left knee (01/10/22)
[2022-03-31 07:15] LABS: Glucose, Whole Blood 160 mg/dL (60-115)
[2022-03-31] MEDS: Insulin Lispro 100 UNIT/ML 3 ML VIAL SUBCUT ×3 (07:18→17:58)
[2022-03-31] MEDS: Aspirin Enteric Coated 81 MG TABLET.DR PO (08:39)
[2022-03-31] MEDS: Gabapentin 600 MG TABLET PO ×3 (08:39→21:12)
[2022-03-31] MEDS: Buprenorphine/Naloxone 8/2 mg FILM 1 FILM SUBLINGUAL ×3 (08:40→21:12)
[2022-03-31] MEDS: clonazePAM 0.5 MG TABLET PO (08:40)
[2022-03-31] MEDS: FLUoxetine HCl 20 MG CAPSULE 60 MG PO (08:40)
[2022-03-31] MEDS: amLODIPine Besylate 5 MG TABLET PO (08:40)
[2022-03-31] MEDS: Loratadine 10 MG TABLET PO (08:40)
[2022-03-31 08:44] VITALS: BP 144/79; PULSE 83; RESP 18; O2SAT 95
--- NOTE | 2022-03-31 13:08 | PC.NURSE ---
pt requested to be cleaned up, assisted pt with bed bath, pt is able to roll on both sides alone, pt purewick changed, lotion applied to lower extremities. Linens and pads changed, pt sitting up eating lunch
[2022-03-31 13:10] LABS: Glucose, Whole Blood 255 mg/dL (60-115)
[2022-03-31 13:46] VITALS: BP 144/79; PULSE 83; O2SAT 95
--- NOTE | 2022-03-31 14:14 | MHC.CM.ED ---
Call placed to Aliyah at [facility] inquiring about pt admission status. Per Aliyah, they have medically accepted pt but will need certain equipment before they can arrange for transfer. Discussed with Dr. Brownlee : a bariatric w/c and commode have been inspected and sanitized and are holding in CSS for pt to transfer to [facility] with. Message left for Aliyah informing her of the equipment and requesting a call back to discuss possible transfer. ED CM to follow.
[2022-03-31 17:53] LABS: Glucose, Whole Blood 215 mg/dL (60-115)
--- NOTE | 2022-03-31 18:30 | PC.NURSE ---
1800 rounging done ,pt purewick change ,new purewick in place bed pads change ,honey care given pt was set up with dinner .
--- NOTE | 2022-03-31 20:25 | PC.NURSE ---
2000 rounding done pt was wet purewick change ,bed pad change ,new purewick in place fresh pitcher water given ,and 2 sun butter and jelly sandwich with a cup of coffee ,pt ate 100 % supper ,drank 360 ml fluids ,pt is being very rude to staff .
[2022-03-31 21:03] VITALS: BP 135/73; PULSE 81; RESP 16; TEMP 36.4; O2SAT 98
--- NOTE | 2022-03-31 21:05 | PC.NURSE ---
2100 BS AND VS TAKEN ,SMALL TRASH BAG EMPTY ,PT WATCHING TELEVISION .
[2022-03-31 21:10] LABS: Glucose, Whole Blood 219 mg/dL (60-115)
[2022-03-31] MEDS: Insulin Glargine,Hum.rec.anlog 100 UNIT/ML 10 ML VIAL 28 UNIT SUBCUT (21:11)
[2022-03-31] MEDS: Atorvastatin Calcium 80 MG TABLET PO (21:12)
--- NOTE | 2022-03-31 21:24 | PC.NURSE ---
At 2115 pt rang for warm blanket .
[2022-03-31] MEDS: Acetaminophen 325 MG TABLET 650 MG PO (21:33)
[2022-03-31] MEDS: traZODone HCL 100 MG TABLET 200 MG PO (21:33)
--- NOTE | 2022-04-01 00:01 | PC.NURSE ---
0000 rounding done pt asleep as is dry .
--- NOTE | 2022-04-01 01:52 | PC.NURSE ---
0200 rounding done pt asleep at this time .
--- NOTE | 2022-04-01 04:15 | PC.NURSE ---
0400 ROUNDING DONE WAS A WAKE FOR A FEW MINUTES ASK TO PUT HER CELL PHONE IN [facility] , PT BACK TO SLEEPING ,CALL MONTERROSO WITHIN REACH .
[2022-04-01] MEDS: Omeprazole 20 MG CAPSULE.DR PO ×2 (05:49→15:07)
[2022-04-01] MEDS: Levothyroxine Sodium 25 MCG TABLET PO (05:54)
[2022-04-01] MEDS: Levothyroxine Sodium 125 MCG TABLET 250 MCG PO (05:54)
[2022-04-01 06:00] VITALS: BP 121/80; PULSE 81; RESP 18; TEMP 36.1; O2SAT 94
--- NOTE | 2022-04-01 06:37 | PC.NURSE ---
0600 rounding done vs and bs taken ,pt was given a bed bath ,lotion and baby powder apply ,pt brush her teeth and comb her hair ,pt was given clean raheem and clean bed linen ,purewick canister empty ,500 ml output ,patient was given fresh pitcher water with ice and had a cup of coffee ,randa Cole was notified that pt has a lump behind her neck .
[2022-04-01 06:40] LABS: Glucose, Whole Blood 148 mg/dL (60-115)
[2022-04-01] MEDS: Gabapentin 600 MG TABLET PO ×3 (07:32→20:16)
[2022-04-01] MEDS: FLUoxetine HCl 20 MG CAPSULE 60 MG PO (07:32)
[2022-04-01] MEDS: Aspirin Enteric Coated 81 MG TABLET.DR PO (07:32)
[2022-04-01] MEDS: amLODIPine Besylate 5 MG TABLET PO (07:32)
[2022-04-01] MEDS: Buprenorphine/Naloxone 8/2 mg FILM 1 FILM SUBLINGUAL ×3 (07:32→20:16)
[2022-04-01] MEDS: Loratadine 10 MG TABLET PO (07:32)
[2022-04-01] MEDS: clonazePAM 0.5 MG TABLET PO (10:02)
--- NOTE | 2022-04-01 10:15 | PC.NURSE ---
TOLERATED BREAKFAST, CHANGED AND REPOSITIONED, BATHED MEDS ORDERED. CONTINUES TO WAIT FOR A BED AT A SNF
[2022-04-01 13:05] LABS: Glucose, Whole Blood 278 mg/dL (60-115)
[2022-04-01] MEDS: Insulin Lispro 100 UNIT/ML 3 ML VIAL SUBCUT (15:06)
[2022-04-01 15:42] VITALS: BP 160/80; PULSE 74; RESP 14; TEMP 36.9; O2SAT 93
--- NOTE | 2022-04-01 15:43 | PC.NURSE ---
Pt offers no complaints, remains case management in the ED
[2022-04-01 19:01] LABS: Glucose, Whole Blood 135 mg/dL (60-115)
[2022-04-01] MEDS: Atorvastatin Calcium 80 MG TABLET PO (20:16)
[2022-04-01] MEDS: traZODone HCL 100 MG TABLET 200 MG PO (20:16)
[2022-04-01] MEDS: Insulin Glargine,Hum.rec.anlog 100 UNIT/ML 10 ML VIAL 28 UNIT SUBCUT (20:16)
[2022-04-02] VITALS: BP 135/66; PULSE 78; TEMP 36.5; O2SAT 91
[2022-04-02] LABS: Glucose, Whole Blood 224 mg/dL (60-115)
[2022-04-02] MEDS: Omeprazole 20 MG CAPSULE.DR PO ×2 (06:13→17:54)
[2022-04-02] MEDS: Levothyroxine Sodium 125 MCG TABLET 250 MCG PO (06:13)
[2022-04-02] MEDS: Levothyroxine Sodium 25 MCG TABLET PO (06:14)
[2022-04-02 06:17] VITALS: BP 146/80; PULSE 78; RESP 16; TEMP 37.1; O2SAT 93
--- NOTE | 2022-04-02 06:59 | PC.NURSE ---
POC 185 BG
[2022-04-02 07:02] LABS: Glucose, Whole Blood 185 mg/dL (60-115)
[2022-04-02] MEDS: Insulin Lispro 100 UNIT/ML 3 ML VIAL SUBCUT ×3 (07:33→18:34)
--- NOTE | 2022-04-02 08:21 | PC.NURSE ---
DARIEN GAONA AND PCT MAGALIS CLEANED PT CHANGED SHEETS. BARRIER CREAM AND POWDER APPLIED. PT IS NOW COMFORTABLE AND RESTING
[2022-04-02] MEDS: amLODIPine Besylate 5 MG TABLET PO (08:25)
[2022-04-02] MEDS: Aspirin Enteric Coated 81 MG TABLET.DR PO (08:25)
[2022-04-02] MEDS: clonazePAM 0.5 MG TABLET PO (08:25)
[2022-04-02] MEDS: Loratadine 10 MG TABLET PO (08:25)
[2022-04-02] MEDS: FLUoxetine HCl 20 MG CAPSULE 60 MG PO (08:25)
[2022-04-02] MEDS: Buprenorphine/Naloxone 8/2 mg FILM 1 FILM SUBLINGUAL ×3 (08:25→21:22)
[2022-04-02] MEDS: Gabapentin 600 MG TABLET PO ×3 (09:59→21:20)
--- NOTE | 2022-04-02 13:33 | MHC.CM.ED ---
Patient remains in the ER. [facility] is willing to accept patient. However, they need some bariatric equipment. [facility] has secured this equipment. T/W left a voicemail for Aliyah at [facility], requesting a return telephone call tomorrow, 04/03, to receive confirmation that this equipment can be transferred to their facility and then patient can be transported to their facility. Continue to monitor for d/c needs.
[2022-04-02 14:13] LABS: Glucose, Whole Blood 233 mg/dL (60-115)
[2022-04-02] MEDS: cephALEXin 250 MG CAPSULE PO ×3 (14:34→21:21)
[2022-04-02 18:25] LABS: Glucose, Whole Blood 243 mg/dL (60-115)
[2022-04-02] MEDS: Acetaminophen 325 MG TABLET 650 MG PO (21:20)
[2022-04-02] MEDS: traZODone HCL 100 MG TABLET 200 MG PO (21:21)
[2022-04-02] MEDS: Atorvastatin Calcium 80 MG TABLET PO (21:21)
[2022-04-02] MEDS: Insulin Glargine,Hum.rec.anlog 100 UNIT/ML 10 ML VIAL 28 UNIT SUBCUT (21:22)
[2022-04-02 23:23] VITALS: BP 138/71; PULSE 80; RESP 16; TEMP 36.6; O2SAT 94
--- NOTE | 2022-04-03 02:56 | PC.NURSE ---
Emptied pts urine from suction container.
[2022-04-03] MEDS: Levothyroxine Sodium 125 MCG TABLET 250 MCG PO (06:54)
[2022-04-03] MEDS: Omeprazole 20 MG CAPSULE.DR PO ×2 (06:55→18:05)
[2022-04-03] MEDS: Levothyroxine Sodium 25 MCG TABLET PO (06:55)
[2022-04-03 07:07] LABS: Glucose, Whole Blood 180 mg/dL (60-115)
[2022-04-03 07:32] VITALS: BP 151/87; PULSE 84; RESP 14; TEMP 36.7; O2SAT 96
[2022-04-03] MEDS: clonazePAM 0.5 MG TABLET PO (08:22)
[2022-04-03] MEDS: FLUoxetine HCl 20 MG CAPSULE 60 MG PO (08:23)
[2022-04-03] MEDS: Gabapentin 600 MG TABLET PO ×3 (08:23→21:02)
[2022-04-03] MEDS: Loratadine 10 MG TABLET PO (08:23)
[2022-04-03] MEDS: Aspirin Enteric Coated 81 MG TABLET.DR PO (08:23)
[2022-04-03] MEDS: cephALEXin 250 MG CAPSULE PO ×2 (08:23→13:13)
[2022-04-03] MEDS: Buprenorphine/Naloxone 8/2 mg FILM 1 FILM SUBLINGUAL ×3 (08:24→21:02)
[2022-04-03] MEDS: Insulin Lispro 100 UNIT/ML 3 ML VIAL SUBCUT ×3 (08:24→17:58)
[2022-04-03] MEDS: amLODIPine Besylate 5 MG TABLET PO (08:32)
[2022-04-03 12:06] VITALS: BP 151/87; PULSE 84; O2SAT 96
[2022-04-03 12:58] LABS: Glucose, Whole Blood 237 mg/dL (60-115)
[2022-04-03 14:12] VITALS: BP 143/78; PULSE 85; RESP 12; TEMP 36.7; O2SAT 95
[2022-04-03] MEDS: cephALEXin 500 MG CAPSULE PO ×3 (14:43→21:02)
[2022-04-03 17:56] LABS: Glucose, Whole Blood 186 mg/dL (60-115)
[2022-04-03 20:40] LABS: Glucose, Whole Blood 201 mg/dL (60-115)
[2022-04-03] MEDS: Insulin Glargine,Hum.rec.anlog 100 UNIT/ML 10 ML VIAL 28 UNIT SUBCUT (21:00)
[2022-04-03] MEDS: Atorvastatin Calcium 80 MG TABLET PO (21:02)
[2022-04-03] MEDS: Acetaminophen 325 MG TABLET 650 MG PO (21:06)
[2022-04-03] MEDS: traZODone HCL 100 MG TABLET 200 MG PO (21:07)
[2022-04-03 21:08] VITALS: BP 168/89; PULSE 86; RESP 20; TEMP 36.8; O2SAT 98
[2022-04-04 05:46] VITALS: BP 121/69; PULSE 73; RESP 18; TEMP 36.7; O2SAT 96
[2022-04-04 05:47] VITALS: BP 165/87; PULSE 86; RESP 20; TEMP 37; O2SAT 95
[2022-04-04] MEDS: Levothyroxine Sodium 25 MCG TABLET PO (05:48)
[2022-04-04] MEDS: Levothyroxine Sodium 125 MCG TABLET 250 MCG PO (05:50)
[2022-04-04] MEDS: Omeprazole 20 MG CAPSULE.DR PO ×2 (05:53→18:23)
[2022-04-04 06:27] LABS: Glucose, Whole Blood 233 mg/dL (60-115)
[2022-04-04] MEDS: Insulin Lispro 100 UNIT/ML 3 ML VIAL SUBCUT ×3 (07:26→19:03)
[2022-04-04] MEDS: cephALEXin 500 MG CAPSULE PO ×4 (08:56→20:40)
[2022-04-04] MEDS: Loratadine 10 MG TABLET PO (08:56)
[2022-04-04] MEDS: FLUoxetine HCl 20 MG CAPSULE 60 MG PO (08:56)
[2022-04-04] MEDS: Gabapentin 600 MG TABLET PO ×3 (08:56→20:40)
[2022-04-04] MEDS: clonazePAM 0.5 MG TABLET PO (08:56)
[2022-04-04] MEDS: Aspirin Enteric Coated 81 MG TABLET.DR PO (08:56)
[2022-04-04] MEDS: Buprenorphine/Naloxone 8/2 mg FILM 1 FILM SUBLINGUAL ×3 (08:57→20:40)
[2022-04-04] MEDS: amLODIPine Besylate 5 MG TABLET PO (08:57)
--- NOTE | 2022-04-04 09:58 | MHC.CM.ED ---
Addendum entered by Lynne Melo 04/04/22 12:00: Equipment can be delivered to [facility] main entrance in the lobby. Aliyah will make sure their equipment team logs the equipment into their system. Addendum entered by Lynne Melo 04/04/22 11:59: Received return telephone call from Aliyah at [facility]. If bariatric wheelchair and commode are transported from [facility] today to their facility, patient can leave our ER on 04/05 at 930am. Jazmine Barriga aware and is trying to accomodate transport of equipment. Ajay SANTOS booked. Med nec with chart. Patient, Leanna LEDEZMA and Ana FLORES aware. Original Note: Patient remains in ER. Left message this morning for Aliyah at [facility]. Continue to monitor for d/c needs.
[2022-04-04 10:46] VITALS: BP 165/87; PULSE 86; O2SAT 95
[2022-04-04 13:18] LABS: Glucose, Whole Blood 246 mg/dL (60-115)
[2022-04-04 16:09] VITALS: BP 157/89; PULSE 91; RESP 18; TEMP 36.4; O2SAT 96
[2022-04-04 18:28] LABS: Glucose, Whole Blood 240 mg/dL (60-115)
[2022-04-04] MEDS: Atorvastatin Calcium 80 MG TABLET PO (20:40)
[2022-04-04] MEDS: Insulin Glargine,Hum.rec.anlog 100 UNIT/ML 10 ML VIAL 28 UNIT SUBCUT (20:42)
[2022-04-04] MEDS: Acetaminophen 325 MG TABLET 650 MG PO (20:48)
[2022-04-04] MEDS: traZODone HCL 100 MG TABLET 200 MG PO (20:48)
--- NOTE | 2022-04-04 21:30 | PC.NURSE ---
Patient asked to be cleaned up and given new bedding. Patient was also given a new purewick and tubing.
[2022-04-05 01:00] VITALS: BP 116/63; PULSE 75; TEMP 36.8; O2SAT 92
[2022-04-05 01:10] LABS: Glucose, Whole Blood 231 mg/dL (60-115)
[2022-04-05 06:00] VITALS: BP 144/86; PULSE 78; TEMP 36.8; O2SAT 91
[2022-04-05] MEDS: Levothyroxine Sodium 25 MCG TABLET PO (06:24)
[2022-04-05] MEDS: Omeprazole 20 MG CAPSULE.DR PO (06:24)
[2022-04-05] MEDS: Levothyroxine Sodium 125 MCG TABLET 250 MCG PO (06:25)
[2022-04-05 07:22] LABS: Glucose, Whole Blood 216 mg/dL (60-115)
[2022-04-05] MEDS: Insulin Lispro 100 UNIT/ML 3 ML VIAL SUBCUT (07:28)
[2022-04-05] MEDS: Buprenorphine/Naloxone 8/2 mg FILM 1 FILM SUBLINGUAL ×2 (07:28→07:47)
[2022-04-05] MEDS: Gabapentin 600 MG TABLET PO (07:28)
[2022-04-05] MEDS: FLUoxetine HCl 20 MG CAPSULE 60 MG PO (07:28)
[2022-04-05] MEDS: cephALEXin 500 MG CAPSULE PO (07:29)
[2022-04-05] MEDS: amLODIPine Besylate 5 MG TABLET PO (07:29)
[2022-04-05] MEDS: clonazePAM 0.5 MG TABLET PO (07:29)
[2022-04-05] MEDS: Aspirin Enteric Coated 81 MG TABLET.DR PO (07:29)
[2022-04-05] MEDS: Loratadine 10 MG TABLET PO (07:29)
--- NOTE | 2022-04-05 09:06 | PC.NURSE ---
pt asked to be cleaned this morning stating that she hadn't been cleaned the night before. This tech stated that she would make sure she was cleaned before she left today at 09:30. I stated to the pt that I needed a few minutes to get a new ambulance and patient situated. as I was walking by the pt's room the pt started yelling and swearing at me across the hallway stating you're not doing anything, you're just fucking ignoring me, you're not fucking doing shit . I explained to the pt that language will not be tolerated and I would be in to clean her as soon as I could. pt continued to swear and state that we have not been doing anything for her. pt spoke with pt experience about this incident and another tech went to clean the pt.
[2022-04-05 09:23] VITALS: BP 183/100; PULSE 95; O2SAT 95
== END 2022-04-05 10:38 | disposition skilled nursing facility (03) ==
PROVIDERS: Nurse Practitioner Family; Physician Assistant; Physician Assistant Medical; Emergency Provider Student in an Organized Health Care Education/Training Program; PCP Nurse Practitioner Family
DX: G89.29 Other chronic pain (principal); M25.562 Pain in left knee; E66.01 Morbid (severe) obesity due to excess calories; Z68.44 Body mass index [BMI] 60.0-69.9, adult; M79.605 Pain in left leg; M79.604 Pain in right leg; L02.11 Cutaneous abscess of neck; R53.81 Other malaise; R26.89 Other abnormalities of gait and mobility; R33.9 Retention of urine, unspecified; L97.111 Non-pressure chronic ulcer of right thigh limited to breakdown of skin; E11.65 Type 2 diabetes mellitus with hyperglycemia; F41.9 Anxiety disorder, unspecified; Z20.822 Contact with and (suspected) exposure to COVID-19; R60.0 Localized edema; J96.11 Chronic respiratory failure with hypoxia; F11.20 Opioid dependence, uncomplicated; I10 Essential (primary) hypertension; E78.5 Hyperlipidemia, unspecified; F17.210 Nicotine dependence, cigarettes, uncomplicated; Z79.82 Long term (current) use of aspirin; Z79.02 Long term (current) use of antithrombotics/antiplatelets; Z79.899 Other long term (current) drug therapy; Z79.4 Long term (current) use of insulin
CPT/HCPCS: 20610; 36415; 80048; 80307; 81001; 81003; 82947; 84439; 84443; 85025; 87086; 87502; 87635; 87651; 93970; 97110; 97162; 97530; 99285; J1100; J2250; J2405; J3010

== ENCOUNTER 2022-04-06 18:07 | Inpatient (IN) | payer MEDICAID, SELFPAY ==
--- NOTE | ~2022-04-06 | NM_ITS ---
EXAMINATION: OK LUNG IMAGE PERFUSION CLINICAL INFORMATION: Chronic respiratory failure. COMPARISON: Chest x-ray 04/06/2022 TECHNIQUE: 4 mCi technetium 99m MAA was given intravenously. Multiple images obtained over the lungs. FINDINGS: Homogeneous perfusion of the lungs. No perfusion defect. No evidence of pulmonary embolism. OK/OK pul perfusion IMPRESSION: Normal perfusion study. No evidence of pulmonary embolism.
--- NOTE | ~2022-04-06 | XR_ITS ---
EXAMINATION: XR chest 1V CLINICAL INFORMATION: Reason for Exam sob, recovering from covid COMPARISON: Chest radiograph 11/19/2021 TECHNIQUE: One view of the chest FINDINGS: Similar indistinctness of the central pulmonary vasculature which may reflect pulmonary venous congestion. No pneumothorax or pleural effusion. Unchanged cardiomediastinal silhouette. XR/XR chest 1V Impression: Similar indistinctness of the central pulmonary vasculature which may reflect pulmonary venous congestion.
--- NOTE | ~2022-04-06 | CT_ITS ---
EXAMINATION: CT CHEST WITHOUT CONTRAST CLINICAL INFORMATION: Shortness of breath COMPARISON: Baseline going back to 09/07/2021 TECHNIQUE: Multidetector volumetric CT imaging of the chest performed without contrast. Axial MIP volume rendering provided. Sagittal and coronal reformatted images were obtained. This CT examination was performed using dose optimization techniques as appropriate, variously including the following: *Automated exposure control *Adjustment of mA and/or kV according to patient size (this includes techniques or standardized protocols for targeted exams where dose is matched to indication/reason for exam; i.e. extremities or head) *Use of iterative reconstruction technique DLP: 735 mGy-cm FINDINGS: CEMENT PATCHER: Limited expiratory LUNGS: Overall improving aeration of the lungs compared to baseline. There are 4 discrete well-defined pulmonary lesions which appear grossly similar. These are on the right measuring up to 9 mm. Smaller lesions appear to be periventricular along the minor fissure but the upper lobe nodules appear to be parenchymal. This appears similar to baseline. Minor dependent atelectasis. MEDIASTINUM: Reactive appearing mediastinal lymph nodes with fatty brian measuring up to 10 mm short axis. Pulmonary arteries borderline prominent suggestive of pulmonary hypertension. CORONARY ARTERY CALCIFICATION: None visualized on this study. PLEURA: There is no pleural effusion. No pleural mass or thickening. AXILLA: No lymphadenopathy. UPPER ABDOMEN: Incidental splenule. OSSEOUS STRUCTURES: Unremarkable. CT/CT chest wo IV con IMPRESSION: No infiltrate or large pleural effusion. Stable pulmonary nodules. According to the UPDATED 2017 Fleischner Society recommendations, the advised follow-up imaging for multiple solid nodules, the largest measuring 6 mm or greater, is: LOW RISK PATIENT: CT at 3-6 months, then consider CT at 18-24 months. HIGH RISK PATIENT: CT at 3-6 months, then at 18-24 months. Fleischner guidelines were followed.
--- NOTE | 2022-04-06 18:47 | ECG_ITS ---
Test Reason : GENERAL MEDICAL Blood Pressure : / mmHG Vent. Rate : 079 BPM Atrial Rate : 079 BPM P-R Int : 168 ms QRS Dur : 096 ms QT Int : 392 ms P-R-T Axes : 034 -14 034 degrees QTc Int : 449 ms Normal sinus rhythm Left axis deviation Intra-ventricular conduction delay Borderline ECG When compared with ECG of 20-NOV-2021 11:36, No significant change was found Referred By: Kasey Morrell Electronically Signed By:KAY PARISI MD
[2022-04-06 18:48] VITALS: BP 154/79; PULSE 89; RESP 20; TEMP 37.6; O2SAT 86; BMI 62.4
--- NOTE | 2022-04-06 18:52 | ED.GENADULT ---
HPI - General Adult General Chief complaint: General Medical Stated complaint: LOW O2 80% ON 2LPM,LETHARGIC FROM SN[facility] PER EMS Time Seen by Provider: 04/06/22 18:18 Source: patient and EMS Mode of arrival: EMS Limitations: no limitations History of Present Illness HPI narrative: patient comes to the emergency room complaining of chest pressure, shortness of breath, patient at baseline on 2 L since she has been recovering from COVID. Of note, patient was in the emergency room boarding from 01/10/2022 to 04/05/2022. patient was discharged yesterday and today comes complaining of the above-mentioned issues. according to EMS, the patient's oxygen saturation was in the low 80s despite using 2 L of oxygen. also, patient complaining that she is unable to urinate and her abdomen is starting to hurt Related Data Home Medications Medication Instructions Recorded Confirmed albuterol sulfate 90 mcg/actuation 2 puff PO Q4H PRN wheezing 08/13/21 01/10/22 aerosol inhaler (ProAir HFA) aspirin 81 mg tablet,delayed 1 tab PO DAILY 08/13/21 01/10/22 release atorvastatin 80 mg tablet 1 tab PO BEDTIME 08/13/21 01/10/22 buprenorphine 8 mg-naloxone 2 mg 1 strip sublingual TID 08/13/21 01/10/22 sublingual film (Suboxone) fluoxetine 20 mg capsule 3 cap PO DAILY 08/13/21 01/10/22 gabapentin 600 mg tablet 1 tab PO TID 08/13/21 01/10/22 insulin lispro 100 unit/mL 8 - 17 unit subcut TIDAC 08/13/21 01/10/22 subcutaneous pen (Humalog KwikPen (U-100) Insulin) loratadine 10 mg tablet 1 tab PO DAILY 08/13/21 01/10/22 omeprazole 20 mg capsule,delayed 1 cap PO BID@0630,1630 08/13/21 01/10/22 release trazodone 100 mg tablet 2 tab PO BEDTIME PRN Insomnia 08/13/21 01/10/22 blood sugar diagnostic (FreeStyle #10 ea 09/21/21 01/25/22 Lite Strips) pen needle, diabetic 31 gauge x #1,200 ea 09/21/21 01/25/22 5/16 (UltiCare Pen Needle) clonazepam 0.5 mg tablet 0.5 tab PO DAILY PRN Anxiety 10/05/21 01/10/22 insulin glargine 100 unit/mL (3 20 unit subcut BEDTIME 01/10/22 01/10/22 mL) subcutaneous pen (Lantus Solostar U-100 Insulin) Previous Rx's Medication Instructions Recorded amlodipine 5 mg tablet (Norvasc) 5 mg PO DAILY 30 days #30 tabs 09/09/21 levothyroxine 125 mcg tablet 250 mcg PO DAILY@0630 #30 tabs 11/22/21 lidocaine 4 % topical patch 1 patch transdermal DAILY #30 ea 11/22/21 (Lidocaine Pain Relief) docusate sodium 100 mg capsule 100 mg PO DAILY PRN constipation 01/10/22 (Colace) #30 caps amlodipine 5 mg tablet (Norvasc) 5 mg PO DAILY #30 tabs 03/24/22 aspirin 81 mg tablet,delayed 81 mg PO DAILY #30 tabs 03/24/22 release atorvastatin 80 mg tablet 80 mg PO BEDTIME #30 tabs 03/24/22 clonazepam 0.5 mg tablet (Klonopin) 0.5 mg PO DAILY #30 tabs 03/24/22 fluoxetine 20 mg capsule (Prozac) 60 mg PO DAILY #90 caps 03/24/22 gabapentin 600 mg tablet 600 mg PO TID #120 tabs 03/24/22 insulin glargine 100 unit/mL 28 unit (0.28 mL) subcut DAILY #10 03/24/22 subcutaneous solution mL insulin lispro 100 unit/mL 1 sliding scale dose subcut 03/24/22 subcutaneous solution USEASDIRECTD #10 mL levothyroxine 200 mcg tablet 200 mcg PO DAILY #30 tabs 03/24/22 (Synthroid) levothyroxine 75 mcg tablet 75 mcg PO DAILY #30 tabs 03/24/22 (Synthroid) loratadine 10 mg tablet (Claritin) 10 mg PO DAILY #30 tabs 03/24/22 omeprazole magnesium 20 mg 20 mg PO BID #60 tabs 03/24/22 tablet,delayed release (Prilosec OTC) trazodone 100 mg tablet 200 mg PO BEDTIME #30 tabs 03/24/22 Allergies Allergy/AdvReac Type Severity Reaction Status Date / Time canagliflozin [From Invokana] Allergy Rash Verified 03/23/22 10:31 latex Allergy Itching Verified 03/23/22 10:31 metformin Allergy Hives Verified 03/23/22 10:31 Penicillins Allergy Rash Verified 03/23/22 10:31 sitagliptin [From Januvia] Allergy Rash Verified 03/23/22 10:31 Review of Systems Review of Systems: Constitutional : No Weight loss, No Fever, No Chills, No Night Sweats complaining of fatigue and generalized malaise ENT/Mouth : No Hearing loss, No Ear Pain, No Nasal Congestion, No Sinus Pain, No Hoarseness, No sore throat, No Rhinorrhea, No Swallowing Difficulty Eyes: No Eye Pain, No Swelling, No Redness, No Foreign Body, No Discharge, No Vision Changes Cardiovascular : complaining of chest pressure, complaining of shortness of breath despite being on 2 L of oxygen Respiratory : No Cough, No Sputum, No Wheezing, No Smoke Exposure, No Dyspnea Gastrointestinal : complaining of nausea vomiting and diarrhea, no abdominal pain Genitourinary : complaining of having urinary difficulty and suprapubic fullness Musculoskeletal : No joint pain, No Myalgias, No Joint Swelling Skin : No Skin Lesions, No rash Neuro : No Weakness, No Numbness, No Paresthesias, No Loss of Consciousness, No Dizziness, No Headache Psych : No Anxiety/Panic, No Depression, No SI/HI/AH/VH, No Social Issues, Heme/Lymph: No Bruising, No Bleeding,No Lymphadenopathy Endocrine : No Polyuria, No Polydipsia, No Temperature Intolerance PMFSH Past Medical History Medical History Bilateral edema of lower extremity Choledocholithiasis Chronic respiratory failure with hypoxia DMII (diabetes mellitus, type 2) High cholesterol HTN (hypertension) Hydronephrosis of right kidney Hydroureteronephrosis Hypothyroid Kidney stones Morbid obesity Morbid obesity Normocytic anemia Pyelonephritis Pyelonephritis UTI (urinary tract infection) Surgical History No pertinent past surgical history Family History Family History Mother Coronary artery disease Diabetes Social History Social History Household Members: Significant Other Household Members Other:: 2 Housing: Apartment Do you presently have visiting nurse or other home services: No Alcohol intake: former Patient Tobacco Use Status: Former Tobacco user Tobacco use type: Cigarette Cigarettes Per Day: 5 Years Smoked: 41 Second Hand Smoke Exposure: No Substance Use Type: Former Substance User Advance Directives: Yes Advance Directives on File: Yes Advance Directives Date on File: 01/25/22 service: No Current occupational status: unemployed Physical Exam ED Vital Signs: Vital Signs - 24 hr 04/06/22 18:48 04/06/22 22:34 Temperature 99.6 F 98.7 F Pulse Rate 89 80 Respiratory Rate 20 16 Blood Pressure 154/79 H 136/73 Pulse Oximetry 86 L 93 Oxygen Delivery Method Room Air Nasal Cannula Oxygen Flow Rate 3 BMI result Body Mass Index 62.4 Const Other: Appearance: Alert. Oriented X3. No acute distress. Eyes: Pupils equal, round and reactive to light. ENT: Pharynx normal. Neck: Normal inspection. Neck supple. No lymph nodes noted. No crepitus CVS: Normal heart rate and rhythm. Pulses normal. Normal S1 and S2 Respiratory: No respiratory distress. Breath sounds normal. No Wheezing. No rales Abdomen: Soft, discomfort to palpation in the suprapubic area Skin: Skin warm and dry. Normal skin color. Normal skin turgor. Extremities: No lower extremity edema. No Lacerations. No Rash Neuro: Oriented X 3. No motor deficit. No sensory deficit. Moving all extremities. No slurred speech. CN 2 through 12 grossly intact Psych: calm, cooperative, normal affect Course Course Course Narrative: Patient's bladder scan shows over 1000 cc of urine in the bladder. Patient is getting a Calloway catheter for urinary retention. U tox pending. patient's hematology at baseline. Patient has RADHIKA at 1.63. Patient getting IV fluids and we will repeat chemistry after the 2 L of fluids. Then, patient will get a CT scan to rule out pulmonary embolism. Patient is recovering from COVID, patient tested negative yesterday before being discharged. D-dimer has previously been elevated. sign-out given to Dr. Montoya, IV fluids are still running, afterwards please check chemistry and when RADHIKA resolved, patient needs a CT scan for pulmonary embolism rule out Medical Decision Making Lab Data Result diagrams: 04/06/22 21:12 04/06/22 21:12 Labs: Lab Results 04/06/22 04/06/22 04/06/22 Range/Units 20:44 20:44 21:12 WBC 5.3 (4.8-10.8) X10*3/uL RBC 3.55 L (4.20-5.50) X10*6/uL Hgb 8.9 L (12.0-16.0) g/dl Hct 30.0 L (37.0-47.0) % MCV 84.5 (80.0-98.0) fL MCH 25.1 L (27.0-33.0) pg MCHC 29.7 L (31.0-35.0) g/dl RDW 16.0 (11.0-16.0) % Plt Count Not Reportable MPV Not Reportable Immature Gran % (Auto) 0.4 (0.0-0.4) % Neut % (Auto) 64.1 (45-73) % Lymph % (Auto) 20.7 (20-40) % Citrus % (Auto) 14.0 H (2-11) % Eos % (Auto) 0.2 (0-4) % Baso % (Auto) 0.6 (0-2) % Lymph # (Auto) 1.1 L (1.2-4.9) X10*3/uL [place] # (Auto) 0.7 (0.1-1.2) X10*3/uL Eos # (Auto) 0.0 (0.0-0.4) X10*3/uL Baso # (Auto) 0.0 (0.0-0.2) X10*3/uL Abs Immat Gran (auto) 0.02 (0.00-0.03) X10*3/uL Absolute Neuts (auto) 3.4 (2.0-8.3) x10*3/uL Absolute Nucleated RBC 0.000 (0.0-0.012) X10*3/uL Nucleated RBC % (auto) 0.0 (0.0-0.2) /100WBC Smear Tech's Comments VERIFIED PT (10.0-13.1) SEC INR (0.9-1.1) D-Dimer High Sensitivty NG/ML VBG pH (7.32-7.43) VBG pCO2 mmHg VBG pO2 mmHg VBG HCO3 (22-26) mmol/L VBG O2 Saturation % VBG Base Excess mmol/L Sodium (135-145) mmol/L Potassium (3.3-5.1) mmol/L Chloride (96-108) mmol/L Carbon Dioxide (22-29) mmol/L Anion Gap (12-20) BUN (9-16) mg/dL Creatinine (0.5-1.4) mg/dL Estim Creat Clear Calc Estimated GFR Random Glucose (60-115) mg/dL Lactic Acid (0.5-2.0) mmol/L Calcium (8.4-10.2) mg/dL Total Bilirubin (0.0-1.0) mg/dL Direct Bilirubin (0.0-0.5) mg/dL AST (5-31) U/L ALT (0-31) U/L Alkaline Phosphatase (39-117) U/L Troponin I High Sens (<3.5-17.0) ng/L B-Natriuretic Peptide (<100) pg/mL Total Protein (6.5-8.0) g/dL Albumin (3.5-5.0) g/dL Urine Color Yellow Urine Appearance Clear Urine pH 7.0 (5.0-9.0) Ur Specific [place] 1.015 (1.005-1.025) Urine Protein 100 (2+) H (Neg-Trace) mg/dL Urine Glucose (UA) Negative (Negative) mg/dL Urine Ketones Negative (Negative) mg/dL Urine Blood Small (1+) H (Negative) Urine Nitrite Negative (Negative) Ur Leukocyte Esterase Small (1+) H (Negative) Urine RBC 3-5 H (0-2) /HPF Urine WBC 11-20 H (0-5) /HPF Ur Squamous Epith Cells 0-2 (0-2) /HPF Urine Bacteria None Seen (None Seen) Hyaline Casts 0-2 (0-2) /LPF Urine Opiates Screen Not Detected (Not Detect) Urine Fentanyl Screen Not Detected (Not Detect) Ur Barbiturates Screen Not Detected (Not Detect) Ur Phencyclidine Scrn Not Detected (Not Detect) Ur Amphetamines Screen Not Detected (Not Detect) U Benzodiazepines Scrn Not Detected (Not Detect) Urine Cocaine Screen Not Detected (Not Detect) U Marijuana (THC) Screen Not Detected (Not Detect) 04/06/22 04/06/22 04/06/22 Range/Units 21:12 21:12 21:12 WBC (4.8-10.8) X10*3/uL RBC (4.20-5.50) X10*6/uL Hgb (12.0-16.0) g/dl Hct (37.0-47.0) % MCV (80.0-98.0) fL MCH (27.0-33.0) pg MCHC (31.0-35.0) g/dl RDW (11.0-16.0) % Plt Count MPV Immature Gran % (Auto) (0.0-0.4) % Neut % (Auto) (45-73) % Lymph % (Auto) (20-40) % [place] % (Auto) (2-11) % Eos % (Auto) (0-4) % Baso % (Auto) (0-2) % Lymph # (Auto) (1.2-4.9) X10*3/uL [place] # (Auto) (0.1-1.2) X10*3/uL Eos # (Auto) (0.0-0.4) X10*3/uL Baso # (Auto) (0.0-0.2) X10*3/uL Abs Immat Gran (auto) (0.00-0.03) X10*3/uL Absolute Neuts (auto) (2.0-8.3) x10*3/uL Absolute Nucleated RBC (0.0-0.012) X10*3/uL Nucleated RBC % (auto) (0.0-0.2) /100WBC Smear Tech's Comments PT (10.0-13.1) SEC INR (0.9-1.1) D-Dimer High Sensitivty NG/ML VBG pH (7.32-7.43) VBG pCO2 mmHg VBG pO2 mmHg VBG HCO3 (22-26) mmol/L VBG O2 Saturation % VBG Base Excess mmol/L Sodium 137 (135-145) mmol/L Potassium 5.0 (3.3-5.1) mmol/L Chloride 103 (96-108) mmol/L Carbon Dioxide 24 (22-29) mmol/L Anion Gap 15 (12-20) BUN 33 H (9-16) mg/dL Creatinine 1.63 H (0.5-1.4) mg/dL Estim Creat Clear Calc 66.6 Estimated GFR 33 Random Glucose 158 H (60-115) mg/dL Lactic Acid 0.4 L (0.5-2.0) mmol/L Calcium 8.3 L (8.4-10.2) mg/dL Total Bilirubin 0.3 (0.0-1.0) mg/dL Direct Bilirubin 0.2 (0.0-0.5) mg/dL AST 21 D (5-31) U/L ALT 17 (0-31) U/L Alkaline Phosphatase 139 H (39-117) U/L Troponin I High Sens 3.6 (<3.5-17.0) ng/L B-Natriuretic Peptide (<100) pg/mL Total Protein 7.9 (6.5-8.0) g/dL Albumin 2.7 L (3.5-5.0) g/dL Urine Color Urine Appearance Urine pH (5.0-9.0) Ur Specific [place] (1.005-1.025) Urine Protein (Neg-Trace) mg/dL Urine Glucose (UA) (Negative) mg/dL Urine Ketones (Negative) mg/dL Urine Blood (Negative) Urine Nitrite (Negative) Ur Leukocyte Esterase (Negative) Urine RBC (0-2) /HPF Urine WBC (0-5) /HPF Ur Squamous Epith Cells (0-2) /HPF Urine Bacteria (None Seen) Hyaline Casts (0-2) /LPF Urine Opiates Screen (Not Detect) Urine Fentanyl Screen (Not Detect) Ur Barbiturates Screen (Not Detect) Ur Phencyclidine Scrn (Not Detect) Ur Amphetamines Screen (Not Detect) U Benzodiazepines Scrn (Not Detect) Urine Cocaine Screen (Not Detect) U Marijuana (THC) Screen (Not Detect) 04/06/22 04/06/22 04/06/22 Range/Units 21:12 21:18 21:42 WBC (4.8-10.8) X10*3/uL RBC (4.20-5.50) X10*6/uL Hgb (12.0-16.0) g/dl Hct (37.0-47.0) % MCV (80.0-98.0) fL MCH (27.0-33.0) pg MCHC (31.0-35.0) g/dl RDW (11.0-16.0) % Plt Count MPV Immature Gran % (Auto) (0.0-0.4) % Neut % (Auto) (45-73) % Lymph % (Auto) (20-40) % [place] % (Auto) (2-11) % Eos % (Auto) (0-4) % Baso % (Auto) (0-2) % Lymph # (Auto) (1.2-4.9) X10*3/uL [place] # (Auto) (0.1-1.2) X10*3/uL Eos # (Auto) (0.0-0.4) X10*3/uL Baso # (Auto) (0.0-0.2) X10*3/uL Abs Immat Gran (auto) (0.00-0.03) X10*3/uL Absolute Neuts (auto) (2.0-8.3) x10*3/uL Absolute Nucleated RBC (0.0-0.012) X10*3/uL Nucleated RBC % (auto) (0.0-0.2) /100WBC Smear Tech's Comments PT 11.8 (10.0-13.1) SEC INR 1.0 (0.9-1.1) D-Dimer High Sensitivty 891 NG/ML VBG pH 7.32 (7.32-7.43) VBG pCO2 60 mmHg VBG pO2 93 mmHg VBG HCO3 31 H (22-26) mmol/L VBG O2 Saturation 98.0 % VBG Base Excess 4.4 mmol/L Sodium (135-145) mmol/L Potassium (3.3-5.1) mmol/L Chloride (96-108) mmol/L Carbon Dioxide (22-29) mmol/L Anion Gap (12-20) BUN (9-16) mg/dL Creatinine (0.5-1.4) mg/dL Estim Creat Clear Calc Estimated GFR Random Glucose (60-115) mg/dL Lactic Acid (0.5-2.0) mmol/L Calcium (8.4-10.2) mg/dL Total Bilirubin (0.0-1.0) mg/dL Direct Bilirubin (0.0-0.5) mg/dL AST (5-31) U/L ALT (0-31) U/L Alkaline Phosphatase (39-117) U/L Troponin I High Sens (<3.5-17.0) ng/L B-Natriuretic Peptide 35 (<100) pg/mL Total Protein (6.5-8.0) g/dL Albumin (3.5-5.0) g/dL Urine Color Urine Appearance Urine pH (5.0-9.0) Ur Specific [place] (1.005-1.025) Urine Protein (Neg-Trace) mg/dL Urine Glucose (UA) (Negative) mg/dL Urine Ketones (Negative) mg/dL Urine Blood (Negative) Urine Nitrite (Negative) Ur Leukocyte Esterase (Negative) Urine RBC (0-2) /HPF Urine WBC (0-5) /HPF Ur Squamous Epith Cells (0-2) /HPF Urine Bacteria (None Seen) Hyaline Casts (0-2) /LPF Urine Opiates Screen (Not Detect) Urine Fentanyl Screen (Not Detect) Ur Barbiturates Screen (Not Detect) Ur Phencyclidine Scrn (Not Detect) Ur Amphetamines Screen (Not Detect) U Benzodiazepines Scrn (Not Detect) Urine Cocaine Screen (Not Detect) U Marijuana (THC) Screen (Not Detect) Critical Care Time Critical Care Time Critical Care Time: Yes Total Critical Care Time: 30 Attestation: I have personally provided critical care time. Time includes review of lab data, radiology results, discussion with consultants, and monitoring for potential decompensation. Intervention performed as documented. Discharge Plan Discharge Clinical Impression: Acute urinary retention, Nausea & vomiting, Pressure in chest, Shortness of breath Patient Disposition: Still a Patient Prescriptions: No Action amlodipine [Norvasc] 5 mg tablet 5 mg PO DAILY 30 Days Qty: 30 0RF insulin glargine [Lantus Solostar U-100 Insulin] 100 unit/mL (3 mL) insulin pen 20 unit subcut BEDTIME amlodipine [Norvasc] 5 mg tablet 5 mg PO DAILY Qty: 30 0RF atorvastatin 80 mg tablet 80 mg PO BEDTIME Qty: 30 0RF aspirin 81 mg tablet,delayed release (DR/EC) 81 mg PO DAILY Qty: 30 0RF clonazepam [Klonopin] 0.5 mg tablet 0.5 mg PO DAILY Qty: 30 0RF gabapentin 600 mg tablet 600 mg PO TID Qty: 120 0RF fluoxetine [Prozac] 20 mg capsule 60 mg PO DAILY Qty: 90 0RF insulin glargine 100 unit/mL solution 28 unit subcut DAILY Qty: 10 0RF levothyroxine [Synthroid] 200 mcg tablet 200 mcg PO DAILY Qty: 30 0RF levothyroxine [Synthroid] 75 mcg tablet 75 mcg PO DAILY Qty: 30 0RF insulin lispro 100 unit/mL solution 1 sliding scale dose subcut USEASDIRECTD Qty: 10 0RF Rx Instructions: Glucose 151-200 - give 2 units Glucose 201-250 - give 4 units Glucose 251-300 - give 6 units Glucose 301-350 - give 8 units >350 - give 10 units loratadine [Claritin] 10 mg tablet 10 mg PO DAILY Qty: 30 0RF omeprazole magnesium [Prilosec OTC] 20 mg tablet,delayed release (DR/EC) 20 mg PO BID Qty: 60 0RF trazodone 100 mg tablet 200 mg PO BEDTIME Qty: 30 0RF atorvastatin 80 mg tablet 1 tab PO BEDTIME gabapentin 600 mg tablet 1 tab PO TID aspirin 81 mg tablet,delayed release (DR/EC) 1 tab PO DAILY trazodone 100 mg tablet 2 tab PO BEDTIME PRN (Reason: Insomnia) omeprazole 20 mg capsule,delayed release(DR/EC) 1 cap PO BID@0630,1630 albuterol sulfate [ProAir HFA] 90 mcg/actuation HFA aerosol inhaler 2 puff PO Q4H PRN (Reason: wheezing) fluoxetine 20 mg capsule 3 cap PO DAILY insulin lispro [Humalog KwikPen Insulin] 100 unit/mL insulin pen 8 - 17 unit subcut TIDAC Rx Instructions: give with food buprenorphine-naloxone [Suboxone] 8-2 mg film 1 strip sublingual TID loratadine 10 mg tablet 1 tab PO DAILY clonazepam 0.5 mg tablet 0.5 tab PO DAILY PRN (Reason: Anxiety) lidocaine [Lidocaine Pain Relief] 4 % Adhesive Patch,Medicated 1 patch transdermal DAILY Qty: 30 0RF Protocol: Apply to: Apply to: left knee levothyroxine 125 mcg Tablet 250 mcg PO DAILY@0630 Qty: 30 0RF docusate sodium [Colace] 100 mg capsule 100 mg PO DAILY PRN (Reason: constipation) Qty: 30 0RF (DME) pen needle, diabetic [UltiCare Pen Needle] 31 gauge x 5/16 needle See Rx Instructions subcut .MEDSUPPLY Qty: 1200 Rx Instructions: As directed (DME) FreeStyle Lite Strips Strip See Rx Instructions Not Applicable QID Qty: 10 Rx Instructions: As directed
[2022-04-06 20:51] LABS: Appearance Urine Clear; Color Urine Yellow; Glucose Urine UA Negative (Negative); Leukocyte Esterase Urine Small (1+) (Negative); Nitrite Urine Negative (Negative); Specific Gravity - Urine 1.015 (1.005-1.025); UMIC TRIGGER UACC YES; Urine Blood Small (1+) (Negative); Urine Ketones Negative (Negative); Urine Protein 100 (2+) mg/dL (Neg-Trace)
[2022-04-06 21:03] LABS: Bacteria Urine None Seen (None Seen); Hyaline Casts Urine 0-2 /LPF (0-2); Squamous Epithelial Cell Urine 0-2 /HPF (0-2); UACC Culture Trigger YES
[2022-04-06 21:05] LABS: Amphetamine Screen Urine Not Detected (Not Detect); Barbiturates, Urine Not Detected (Not Detect); Benzodiazepines Screen Urine Not Detected (Not Detect); Cannabinoid Screen Urine Not Detected (Not Detect); Cocaine Screen Urine Not Detected (Not Detect); Fentanyl, urine Not Detected (Not Detect); Opiate Screen Urine Not Detected (Not Detect); Phencyclidine Screen Urine Not Detected (Not Detect)
[2022-04-06 21:21] LABS: Basophils Percent Auto 0.6 % (0-2); Eosinophils Percent Auto 0.2 % (0-4); PLT CLUMP 1; SCAN SMEAR FLAG 1
[2022-04-06 21:22] LABS: Hemoglobin 8.9 g/dl (12.0-16.0); Imm Gran Abs Auto 0.02 X10*3/uL (0.00-0.03); Imm Gran Pct Auto 0.4 % (0.0-0.4); Lymphocytes Absolute Auto 1.1 X10*3/uL (1.2-4.9); Lymphocytes Percent Auto 20.7 % (20-40); MANUAL DIFF FLAG SCAN; Mean Corpuscular HGB Conc 29.7 g/dl (31.0-35.0); Mean Corpuscular Hemoglobin 25.1 pg (27.0-33.0); Mean Corpuscular Volume 84.5 fL (80.0-98.0); Monocytes Absolute Auto 0.7 X10*3/uL (0.1-1.2); Neutrophils Absolute Auto 3.4 x10*3/uL (2.0-8.3); Neutrophils Percent Auto 64.1 % (45-73); Red Blood Count 3.55 X10*6/uL (4.20-5.50)
[2022-04-06 21:26] LABS: VBG Base Excess 4.4 mmol/L; VBG HCO3 31 mmol/L (22-26); VBG pCO2 60 mmHg; VBG pH 7.32 (7.32-7.43); VBG pO2 93 mmHg
[2022-04-06 21:32] LABS: Lactic Acid 0.4 mmol/L (0.5-2.0)
[2022-04-06 21:37] LABS: Venous Blood Gas Refer to POC result
[2022-04-06 21:38] LABS: Alanine Aminotransferase 17 U/L (0-31); Albumin Level 2.7 g/dL (3.5-5.0); Alkaline Phosphatase 139 U/L (39-117); Anion Gap 15 (12-20); Aspartate Amino Transferase 21 U/L (5-31); Bilirubin Direct 0.2 mg/dL (0.0-0.5); Bilirubin Total 0.3 mg/dL (0.0-1.0); Blood Urea Nitrogen 33 mg/dL (9-16); Calcium 8.3 mg/dL (8.4-10.2); Carbon Dioxide 24 mmol/L (22-29); Chloride 103 mmol/L (96-108); Creatinine Clr Calc Pharmacy 66.6; Estimated Glomerular Filt Rate 33; Glucose Random 158 mg/dL (60-115); Sodium 137 mmol/L (135-145); Total Protein 7.9 g/dL (6.5-8.0)
[2022-04-06 21:41] LABS: SLIDE REVIEW VERIFIED; White Blood Count 5.3 X10*3/uL (4.8-10.8)
[2022-04-06 21:44] LABS: B Type Natriuretic Peptide 35 pg/mL (<100); Troponin-I High Sensitivity 3.6 ng/L (<3.5-17.0)
[2022-04-06 21:53] LABS: Prothrombin Time 11.8 SEC (10.0-13.1)
[2022-04-06 21:54] LABS: D Dimer High Sensitivity 891 NG/ML
[2022-04-06 22:34] VITALS: BP 136/73; PULSE 80; RESP 16; TEMP 37.1; O2SAT 93
[2022-04-06] MEDS: cefTRIAXone sodium 1 GM in 0.9 % Sodium Chloride 50 ML IV (23:02)
[2022-04-06] MEDS: 0.9 % Sodium Chloride 1,000 ML 999 ML IVCONT (23:02)
--- NOTE | 2022-04-07 00:40 | PC.NURSE ---
IV infiltrated, several attempts to place a new IV without success. Fluid and antibiotic administration is delayed.
[2022-04-07 02:00] VITALS: BP 121/59; PULSE 69; RESP 19; TEMP 36.7
[2022-04-07 04:00] VITALS: BP 132/68; PULSE 67; RESP 12; O2SAT 93
[2022-04-07 04:55] LABS: Anion Gap 16 (12-20); Blood Urea Nitrogen 32 mg/dL (9-16); Calcium 8.3 mg/dL (8.4-10.2); Carbon Dioxide 24 mmol/L (22-29); Chloride 104 mmol/L (96-108); Creatinine Clr Calc Pharmacy 72.4; Estimated Glomerular Filt Rate 37; Glucose Random 135 mg/dL (60-115); Potassium 4.7 mmol/L (3.3-5.1); Sodium 139 mmol/L (135-145)
[2022-04-07] MEDS: dexAMETHasone sod phosphate 10 MG/ML VIAL IVPUSH (05:31)
[2022-04-07] MEDS: Albuterol Sulfate 90 MCG 8 GM INHALER 4 PUFF INHALE (05:31)
--- NOTE | 2022-04-07 05:54 | P.HPHOSP_ITS ---
History of Present Illness Date of Service: 04/07/22 Chief Complaint: low O2 This is a 51-year-old female with past medical history of hypertension, diabetes, hypothyroidism, morbid obesity who presents to the hospital with hypoxia. Of note patient was in the emergency room under case management for placement since 01/23, she was discharged on 04/05 to [facility] for possible bariatric surgery as well as placement but returns with hypoxia. Patient reports feeling feverish, she is very frustrated and says she does not know what happened. She reports pleuritic midsternal chest pain worse with taking deep breaths on moving, she has nausea, 1 episode of vomiting, no diarrhea constipation, no urinary symptoms and no lower extremity edema. She was at [facility] for LTAC and possible beriatric evaluation. On arrival to the ED patient was found to be 86% on room air, vitals otherwise stable Labs are significant for baseline hemoglobin of 8.9, hematocrit 30, pH of 7.32, creatinine of 1.63 which is around her baseline, lactic acid of 0.4, UA positive for leukocyte Estrace and WBC, COVID-19 positive. Chest x-ray shows possible pulmonary venous congestion, BNP is 35. Review of Systems Review of Systems: Yes all other systems are reviewed and are negative [facility] Medical History Bilateral edema of lower extremity Choledocholithiasis Chronic respiratory failure with hypoxia DMII (diabetes mellitus, type 2) High cholesterol HTN (hypertension) Hydronephrosis of right kidney Hydroureteronephrosis Hypothyroid Kidney stones Morbid obesity Morbid obesity Normocytic anemia Pyelonephritis Pyelonephritis UTI (urinary tract infection) Family History Mother Coronary artery disease Diabetes Surgical History No pertinent past surgical history Social History Household Members: Significant Other Household Members Other:: 2 Housing: Apartment Do you presently have visiting nurse or other home services: No Alcohol intake: former Patient Tobacco Use Status: Former Tobacco user Tobacco use type: Cigarette Cigarettes Per Day: 5 Years Smoked: 41 Second Hand Smoke Exposure: No Substance Use Type: Former Substance User Advance Directives: Yes Advance Directives on File: Yes Advance Directives Date on File: 01/25/22 service: No Current occupational status: unemployed Meds Allergies Allergy/AdvReac Type Severity Reaction Status Date / Time canagliflozin [From Invokana] Allergy Rash Verified 03/23/22 10:31 latex Allergy Itching Verified 03/23/22 10:31 metformin Allergy Hives Verified 03/23/22 10:31 Penicillins Allergy Rash Verified 03/23/22 10:31 sitagliptin [From Januvia] Allergy Rash Verified 03/23/22 10:31 Active Medications: Current Medications Acetaminophen (Acetaminophen 325 Mg Tablet) 650 mg PO Q6H PRN PRN Reason: Pain, Mild (Pain Scale 1-3) Dexamethasone Sodium Phosphate (Dexamethasone Sod Phosphate 4 Mg/Ml Vial) 6 mg IVPUSH DAILY [place] Docusate Sodium (Docusate Sodium 100 Mg Capsule) 100 mg PO DAILY PRN PRN Reason: Constipation Enoxaparin Sodium (Enoxaparin Sodium 100 Mg/Ml Syringe) 100 mg SUBCUT Q12H [facility] Ceftriaxone Sodium 1 gm/ (Sodium Chloride) 50 mls @ 100 mls/hr IV Q24H [facility] Ondansetron HCl (Ondansetron Hcl 4 Mg/2 Ml Vial) 4 mg IVPUSH Q8H PRN PRN Reason: Nausea and Vomiting Sodium Chloride (0.9 % Sodium Chloride Flush 3 Ml Syringe) 3 ml IVFLUSH QSHIFT [facility] Home Medications Medication Instructions Recorded Confirmed Last Taken Type albuterol sulfate 90 mcg/actuation 2 puff PO Q4H PRN wheezing 08/13/21 01/10/22 11/07/21 History aerosol inhaler (ProAir HFA) aspirin 81 mg tablet,delayed 1 tab PO DAILY 08/13/21 01/10/22 11/07/21 History release atorvastatin 80 mg tablet 1 tab PO BEDTIME 08/13/21 01/10/22 11/07/21 History buprenorphine 8 mg-naloxone 2 mg 1 strip sublingual TID 08/13/21 01/10/22 11/07/21 History sublingual film (Suboxone) fluoxetine 20 mg capsule 3 cap PO DAILY 08/13/21 01/10/22 11/07/21 History gabapentin 600 mg tablet 1 tab PO TID 08/13/21 01/10/22 11/07/21 History insulin lispro 100 unit/mL 8 - 17 unit subcut TIDAC 08/13/21 01/10/22 11/07/21 History subcutaneous pen (Humalog KwikPen (U-100) Insulin) loratadine 10 mg tablet 1 tab PO DAILY 08/13/21 01/10/22 11/07/21 History omeprazole 20 mg capsule,delayed 1 cap PO BID@0630,1630 08/13/21 01/10/22 11/07/21 History release trazodone 100 mg tablet 2 tab PO BEDTIME PRN Insomnia 08/13/21 01/10/22 11/07/21 History blood sugar diagnostic (FreeStyle #10 ea 09/21/21 01/25/22 11/07/21 History Lite Strips) pen needle, diabetic 31 gauge x #1,200 ea 09/21/21 01/25/22 11/07/21 History 5/16 (UltiCare Pen Needle) clonazepam 0.5 mg tablet 0.5 tab PO DAILY PRN Anxiety 10/05/21 01/10/22 11/07/21 History insulin glargine 100 unit/mL (3 20 unit subcut BEDTIME 01/10/22 01/10/22 Unknown History mL) subcutaneous pen (Lantus Solostar U-100 Insulin) Physical Exam Vital Signs and Narrative: Vital Signs: Last Vital Signs Temp 98.0 F 04/07/22 02:00 Pulse 67 04/07/22 04:00 Resp 12 04/07/22 04:00 BP 132/68 04/07/22 04:00 Pulse Ox 93 04/07/22 04:00 O2 Del Method 04/07/22 04:00 O2 Flow Rate 2 04/07/22 04:00 BMI result Body Mass Index 62.4 Const: Other: Significant obesity, difficult to complete appropriate exam General: cooperative and no acute distress Orientation/consciousness: patient oriented x3 Eyes: General: appearance normal, both eyes and all related structures Resp: Other: Distant breath stone Effort & Inspection: normal respiratory effort Cardio: Rate: regular rate Rhythm: regular rhythm GI: Palpation (GI): Soft to palpation Auscultation: normal bowel sounds Skin: General skin exam: no rashes or lesions noted Neuro: General: patient oriented x3 Cognition (Neuro): normal cognition Extrem: General: Yes normal to inspection and Yes no pedal edema Results Labs CBC and Chem 7: 04/06/22 21:12 04/07/22 04:29 Labs: Laboratory Results - last 24 hr 04/06/22 04/06/22 04/06/22 20:44 20:44 21:12 MCV 84.5 MCH 25.1 L MCHC 29.7 L RDW 16.0 Plt Count Not Reportable MPV Not Reportable Immature Gran % (Auto) 0.4 Neut % (Auto) 64.1 Lymph % (Auto) 20.7 Lyman % (Auto) 14.0 H Eos % (Auto) 0.2 Baso % (Auto) 0.6 Lymph # (Auto) 1.1 L Lyman # (Auto) 0.7 Eos # (Auto) 0.0 Baso # (Auto) 0.0 Abs Immat Gran (auto) 0.02 Absolute Neuts (auto) 3.4 Absolute Nucleated RBC 0.000 Nucleated RBC % (auto) 0.0 Smear Tech's Comments VERIFIED PT INR D-Dimer High Sensitivty VBG pH VBG pCO2 VBG pO2 VBG HCO3 VBG O2 Saturation VBG Base Excess Anion Gap Estim Creat Clear Calc Estimated GFR Random Glucose Lactic Acid Calcium Total Bilirubin Direct Bilirubin AST ALT Alkaline Phosphatase Troponin I High Sens B-Natriuretic Peptide Total Protein Albumin Urine Color Yellow Urine Appearance Clear Urine pH 7.0 Ur Specific [place] 1.015 Urine Protein 100 (2+) H Urine Glucose (UA) Negative Urine Ketones Negative Urine Blood Small (1+) H Urine Nitrite Negative Ur Leukocyte Esterase Small (1+) H Urine RBC 3-5 H Urine WBC 11-20 H Ur Squamous Epith Cells 0-2 Urine Bacteria None Seen Hyaline Casts 0-2 Urine Opiates Screen Not Detected Urine Fentanyl Screen Not Detected Ur Barbiturates Screen Not Detected Ur Phencyclidine Scrn Not Detected Ur Amphetamines Screen Not Detected U Benzodiazepines Scrn Not Detected Urine Cocaine Screen Not Detected U Marijuana (THC) Screen Not Detected 04/06/22 04/06/22 04/06/22 21:12 21:12 21:12 MCV MCH MCHC RDW Plt Count MPV Immature Gran % (Auto) Neut % (Auto) Lymph % (Auto) Lyman % (Auto) Eos % (Auto) Baso % (Auto) Lymph # (Auto) Lyman # (Auto) Eos # (Auto) Baso # (Auto) Abs Immat Gran (auto) Absolute Neuts (auto) Absolute Nucleated RBC Nucleated RBC % (auto) Smear Tech's Comments PT INR D-Dimer High Sensitivty VBG pH VBG pCO2 VBG pO2 VBG HCO3 VBG O2 Saturation VBG Base Excess Anion Gap 15 Estim Creat Clear Calc 66.6 Estimated GFR 33 Random Glucose 158 H Lactic Acid 0.4 L Calcium 8.3 L Total Bilirubin 0.3 Direct Bilirubin 0.2 AST 21 D ALT 17 Alkaline Phosphatase 139 H Troponin I High Sens 3.6 B-Natriuretic Peptide Total Protein 7.9 Albumin 2.7 L Urine Color Urine Appearance Urine pH Ur Specific [place] Urine Protein Urine Glucose (UA) Urine Ketones Urine Blood Urine Nitrite Ur Leukocyte Esterase Urine RBC Urine WBC Ur Squamous Epith Cells Urine Bacteria Hyaline Casts Urine Opiates Screen Urine Fentanyl Screen Ur Barbiturates Screen Ur Phencyclidine Scrn Ur Amphetamines Screen U Benzodiazepines Scrn Urine Cocaine Screen U Marijuana (THC) Screen 04/06/22 04/06/22 04/06/22 21:12 21:18 21:42 MCV MCH MCHC RDW Plt Count MPV Immature Gran % (Auto) Neut % (Auto) Lymph % (Auto) Lyman % (Auto) Eos % (Auto) Baso % (Auto) Lymph # (Auto) Lyman # (Auto) Eos # (Auto) Baso # (Auto) Abs Immat Gran (auto) Absolute Neuts (auto) Absolute Nucleated RBC Nucleated RBC % (auto) Smear Tech's Comments PT 11.8 INR 1.0 D-Dimer High Sensitivty 891 VBG pH 7.32 VBG pCO2 60 VBG pO2 93 VBG HCO3 31 H VBG O2 Saturation 98.0 VBG Base Excess 4.4 Anion Gap Estim Creat Clear Calc Estimated GFR Random Glucose Lactic Acid Calcium Total Bilirubin Direct Bilirubin AST ALT Alkaline Phosphatase Troponin I High Sens B-Natriuretic Peptide 35 Total Protein Albumin Urine Color Urine Appearance Urine pH Ur Specific [place] Urine Protein Urine Glucose (UA) Urine Ketones Urine Blood Urine Nitrite Ur Leukocyte Esterase Urine RBC Urine WBC Ur Squamous Epith Cells Urine Bacteria Hyaline Casts Urine Opiates Screen Urine Fentanyl Screen Ur Barbiturates Screen Ur Phencyclidine Scrn Ur Amphetamines Screen U Benzodiazepines Scrn Urine Cocaine Screen U Marijuana (THC) Screen 04/07/22 04:29 MCV MCH MCHC RDW Plt Count MPV Immature Gran % (Auto) Neut % (Auto) Lymph % (Auto) Lyman % (Auto) Eos % (Auto) Baso % (Auto) Lymph # (Auto) Lyman # (Auto) Eos # (Auto) Baso # (Auto) Abs Immat Gran (auto) Absolute Neuts (auto) Absolute Nucleated RBC Nucleated RBC % (auto) Smear Tech's Comments PT INR D-Dimer High Sensitivty VBG pH VBG pCO2 VBG pO2 VBG HCO3 VBG O2 Saturation VBG Base Excess Anion Gap 16 Estim Creat Clear Calc 72.4 Estimated GFR 37 Random Glucose 135 H Lactic Acid Calcium 8.3 L Total Bilirubin Direct Bilirubin AST ALT Alkaline Phosphatase Troponin I High Sens B-Natriuretic Peptide Total Protein Albumin Urine Color Urine Appearance Urine pH Ur Specific [place] Urine Protein Urine Glucose (UA) Urine Ketones Urine Blood Urine Nitrite Ur Leukocyte Esterase Urine RBC Urine WBC Ur Squamous Epith Cells Urine Bacteria Hyaline Casts Urine Opiates Screen Urine Fentanyl Screen Ur Barbiturates Screen Ur Phencyclidine Scrn Ur Amphetamines Screen U Benzodiazepines Scrn Urine Cocaine Screen U Marijuana (THC) Screen Imaging Radiologist's Impressions: Impressions Chest X-Ray 04/06/22 19:20 Impression: Similar indistinctness of the central pulmonary vasculature which may reflect pulmonary venous congestion. Assessment and Plan (1) Acute hypoxemic respiratory failure due to COVID-19: Status: Acute (2) UTI (urinary tract infection): Status: Acute (3) Non-pressure chronic ulcer right thigh, limited to breakdown skin: Status: Acute Plan 51-year-old female with past medical history of hypertension, diabetes, hyperlipidemia, significant morbid obesity, who was initially stat under case management under ED this incision observation from 01/10-04/05, she was sent to [facility] LTAC but returns with hypoxic respiratory failure # acute hypoxic respiratory failure - due to COVID-19 - BNP is low but possibly falsely low in the setting of severe obesity - although she does not have any clinical evidence of volume overload - has elevated D-dimer of 800, patient has CKD therefore cannot get CT angiogram with contrast - at this time will obtain chest CT without contrast, V/Q scan - given high risk for PE due to recent ED stay- will prophylactically treat with Lovenox pending V/Q scan - monitor respiratory status - Decadron 6 mg daily for hypoxia secondary to COVID-19 - id consult for remdesivir # UTI - has history of chronic recurrent UTIs - will treat with ceftriaxone - follow cultures # pressure ulcer - wound care # morbid obesity - patient was to be evaluated for bariatric surgery at LTAC- but that will be placed on hold for now given this admission # DM - LDSSI, Diabetic diet - home insulin # HTN - stable - continue home antihypertensives # mood disorder - continue home medications # hypothyroidism - continue levothyroxine DVT prophylaxis: Lovenox Given patient's hypoxia and requirement for O2 patient require minimum 2 night inpatient hospital stay for further management Quality Stroke Does the patient have a stroke diagnosis?: No VTE Prior VTE?: No VTE Risk Level:: Medical - moderate - high VTE Device Contraindication: Treatment Not Indicated VTE Drug Contraindication: N/A - Med Ordered
[2022-04-07] MEDS: Enoxaparin Sodium 100 MG/ML SYRINGE SUBCUT ×2 (06:04→18:27)
[2022-04-07] MEDS: cefTRIAXone sodium 1 GM in 0.9 % Sodium Chloride 50 ML IV (06:05)
[2022-04-07 07:11] LABS: Basophils Percent Auto 0.5 % (0-2); Hemoglobin 9.3 g/dl (12.0-16.0); Imm Gran Abs Auto 0.02 X10*3/uL (0.00-0.03); Imm Gran Pct Auto 0.5 % (0.0-0.4); Lymphocytes Absolute Auto 1.6 X10*3/uL (1.2-4.9); MANUAL DIFF FLAG NO; Mean Corpuscular Hemoglobin 25.4 pg (27.0-33.0); Mean Corpuscular Volume 84.7 fL (80.0-98.0); Mean Platelet Volume 10.3 fL (9.4-12.3); Monocytes Absolute Auto 0.5 X10*3/uL (0.1-1.2); Neutrophils Absolute Auto 2.2 x10*3/uL (2.0-8.3); Platelet Count 188 X10*3/uL (160-400); Red Blood Count 3.66 X10*6/uL (4.20-5.50); Red Cell Distribution Width 15.9 % (11.0-16.0); White Blood Count 4.3 X10*3/uL (4.8-10.8)
[2022-04-07 07:18] LABS: INTERNATIONAL NORM RATIO 1.1 (0.9-1.1); Prothrombin Time 12.1 SEC (10.0-13.1)
[2022-04-07 07:21] LABS: Partial Thromboplastin Time 38.9 SEC (26.0-36.4)
[2022-04-07 07:40] VITALS: BP 145/77; PULSE 67; RESP 13; TEMP 36.6; O2SAT 97
[2022-04-07 07:49] LABS: Glucose, Whole Blood 137 mg/dL (60-115)
--- NOTE | 2022-04-07 08:35 | PHA.MEDREC ---
Pharmacy Consult ? Medication Reconciliation Pharmacy has completed the medication reconciliation. Pt just discharged on 04/05; used medical record
[2022-04-07 10:24] LABS: COVID-19 Test Positive (Negative); IDNOW Serial# 9DB6401D
[2022-04-07] MEDS: FLUoxetine HCl 20 MG CAPSULE 60 MG PO (10:51)
[2022-04-07] MEDS: dexAMETHasone sod phosphate 4 MG/ML VIAL 6 MG IVPUSH (10:51)
[2022-04-07] MEDS: amLODIPine Besylate 5 MG TABLET PO (10:51)
[2022-04-07] MEDS: 0.9 % Sodium Chloride Flush 3 ML SYRINGE IVFLUSH (10:54)
--- NOTE | 2022-04-07 11:26 | MHC.CM.PN ---
pt is covid positive she came from [facility] where she will return when dcd spoke with pavel in [facility] at [facility] who confirms expectation that pt will return possibly today updates sent via [employer]
[2022-04-07] MEDS: Buprenorphine/Naloxone 8/2 mg FILM 1 FILM BUCCAL ×3 (11:54→20:41)
[2022-04-07] MEDS: clonazePAM 0.5 MG TABLET PO (11:54)
[2022-04-07] MEDS: Gabapentin 600 MG TABLET PO ×3 (11:54→20:41)
--- NOTE | 2022-04-07 11:59 | PC.NURSE ---
pt to go to [facility] for pulmonary perfusion test
--- NOTE | 2022-04-07 12:08 | PC.NURSE ---
Addendum entered by Leanna West RN 04/07/22 12:10: provider liliana miranda made aware via [employer] Original Note: pt refused to go to [facility] because the table is not comfortable
[2022-04-07 12:31] LABS: Lactate Dehydrogenase 207 U/L (122-220)
[2022-04-07 12:56] LABS: Ferritin 39 ng/mL (10-250)
[2022-04-07 13:24] LABS: Glucose, Whole Blood 184 mg/dL (60-115)
--- NOTE | 2022-04-07 14:50 | P.PNIM_ITS ---
Subjective Subjective Date of Service: 04/07/22 Interval History: seen and examined this morning follow up admission for COVID, hypoxia sob, no cough, no body aches refused VQ scan Review of Systems Review of Systems: Yes all other systems are reviewed and are negative Constitutional Constitutional: Denies chills and Denies fever(s) Cardiovascular Cardiovascular: Denies chest pain, Denies palpitations and Denies dyspnea Respiratory Respiratory: Denies cough and Denies dyspnea Gastrointestinal Gastrointestinal: Denies abdominal pain, Denies nausea and Denies vomiting Endocrine Endocrine: Denies palpitations Physical Exam Vital Signs: Vital Signs: Last Vital Signs Temp 97.8 F 04/07/22 07:40 Pulse 67 04/07/22 07:40 Resp 13 04/07/22 07:40 BP 145/77 H 04/07/22 07:40 Pulse Ox 97 04/07/22 07:40 O2 Del Method 04/07/22 07:40 O2 Flow Rate 2 04/07/22 04:00 BMI result Body Mass Index 62.4 Const: General: comfortable, no acute distress, alert and awake Nutritional Appearance: obese Orientation/consciousness: patient oriented x3 Resp: Effort & Inspection: normal respiratory effort and able to speak in complete sentences Cardio: Rate: regular rate Heart sounds: S1 normal heart sound present and S2 normal heart sound present GI: Other: parsons draining yellow urine Neuro: General: patient oriented x3 and CN's II-XI intact bilaterally Extrem: General: Yes no pedal edema Objective Data Active Medications Acetaminophen (Acetaminophen 325 Mg Tablet) 650 mg PO Q6H PRN PRN Reason: Pain, Mild (Pain Scale 1-3) Albuterol Sulfate (Albuterol Sulfate 90 Mcg 8 Gm Inhaler) 2 puff INHALE Q4H PRN PRN Reason: wheezing Amlodipine Besylate (Amlodipine Besylate 5 Mg Tablet) 5 mg PO DAILY [facility]; Protocol Last Admin: 04/07/22 10:51 Dose: 5 mg Documented By: MAURIZIO Aspirin (Aspirin Enteric Coated 81 Mg Tablet.) 81 mg PO DAILY [facility] Atorvastatin Calcium (Atorvastatin Calcium 80 Mg Tablet) 80 mg PO BEDTIME [facility] Buprenorphine/Naloxone (Buprenorphine/Naloxone 8/2 Mg Film) 1 film BUCCAL TID [facility] Last Admin: 04/07/22 11:54 Dose: 1 film Documented By: LAKHWINDER Clonazepam (Clonazepam 0.5 Mg Tablet) 0.5 mg PO DAILY [facility] Last Admin: 04/07/22 11:54 Dose: 0.5 mg Documented By: LAKHWINDER Dexamethasone Sodium Phosphate (Dexamethasone Sod Phosphate 4 Mg/Ml Vial) 6 mg IVPUSH DAILY [facility] Last Admin: 04/07/22 10:51 Dose: 6 mg Documented By: MAURIZIO Dextrose (Dextrose 50 % 25 Gm/50 Ml Syringe) 25 gm IVPUSH Q15M PRN; Protocol PRN Reason: per Hypoglycemia Standing Ord. Docusate Sodium (Docusate Sodium 100 Mg Capsule) 100 mg PO DAILY PRN PRN Reason: Constipation Enoxaparin Sodium (Enoxaparin Sodium 100 Mg/Ml Syringe) 100 mg SUBCUT Q12H [facility] Last Admin: 04/07/22 06:04 Dose: 100 mg Documented By: FILI Fluoxetine HCl (Fluoxetine Hcl 20 Mg Capsule) 60 mg PO DAILY [facility] Last Admin: 04/07/22 10:51 Dose: 60 mg Documented By: MAURIZIO Gabapentin (Gabapentin 600 Mg Tablet) 600 mg PO TID [facility] Last Admin: 04/07/22 11:54 Dose: 600 mg Documented By: LAKHWINDER Glucose (Glucose Gel 15 Gm Gel..Gram.) 15 gm PO Q15M PRN; Protocol PRN Reason: per Hypoglycemia Standing Ord. Ceftriaxone Sodium 1 gm/ (Sodium Chloride) 50 mls @ 100 mls/hr IV Q24H [facility] Last Infusion: 04/07/22 07:15 Dose: 0 mls/hr Documented By: LAKHWINDER Insulin Glargine (Insulin Glargine,Hum.Rec.Anlog 100 Unit/Ml 10 Ml Vial) 28 unit SUBCUT DAILY [facility] Insulin Human Lispro (Insulin Lispro 100 Unit/Ml 3 Ml Vial) 0 unit SUBCUT QIDACHS [facility]; Protocol Last Admin: 04/07/22 07:53 Dose: Not Given Documented By: LAKHWINDER Non-Admin Reason: No Insulin Coverage Levothyroxine Sodium (Levothyroxine Sodium 75 Mcg Tablet) 75 mcg PO DAILY@0600 [facility] Last Admin: 04/07/22 11:04 Dose: Not Given Documented By: LAKHWINDER Non-Admin Reason: late med after breakfast Levothyroxine Sodium (Levothyroxine Sodium 200 Mcg Tablet) 200 mcg PO DAILY@0600 [facility] Last Admin: 04/07/22 11:05 Dose: Not Given Documented By: LAKHWINDER Non-Admin Reason: late med after breakfast Loratadine (Loratadine 10 Mg Tablet) 10 mg PO DAILY [facility] Omeprazole (Omeprazole 20 Mg Capsule.Dr) 20 mg PO BID@0630,1630 [facility] Ondansetron HCl (Ondansetron Hcl 4 Mg/2 Ml Vial) 4 mg IVPUSH Q8H PRN PRN Reason: Nausea and Vomiting Pharmacy Consult (Consult Rx Perform Med Rec) 1 each MISCELLANE ONCE PRN PRN Reason: Consult order Sodium Chloride (0.9 % Sodium Chloride Flush 3 Ml Syringe) 3 ml IVFLUSH QSHIFT [facility] Last Admin: 04/07/22 10:54 Dose: 3 ml Documented By: MAURIZIO Trazodone HCl (Trazodone Hcl 100 Mg Tablet) 200 mg PO BEDTIME [facility] Labs CBC & Chem 7: 04/07/22 06:58 04/07/22 04:29 Labs: Laboratory Results - last 24 hr 04/06/22 04/06/22 04/06/22 20:44 20:44 21:12 MCV 84.5 MCH 25.1 L MCHC 29.7 L RDW 16.0 Plt Count Not Reportable MPV Not Reportable Immature Gran % (Auto) 0.4 Neut % (Auto) 64.1 Lymph % (Auto) 20.7 [place] % (Auto) 14.0 H Eos % (Auto) 0.2 Baso % (Auto) 0.6 Lymph # (Auto) 1.1 L [place] # (Auto) 0.7 Eos # (Auto) 0.0 Baso # (Auto) 0.0 Abs Immat Gran (auto) 0.02 Absolute Neuts (auto) 3.4 Absolute Nucleated RBC 0.000 Nucleated RBC % (auto) 0.0 Smear Tech's Comments VERIFIED PT INR APTT D-Dimer High Sensitivty VBG pH VBG pCO2 VBG pO2 VBG HCO3 VBG O2 Saturation VBG Base Excess Anion Gap Estim Creat Clear Calc Estimated GFR POC Glucose Random Glucose Lactic Acid Calcium Ferritin Total Bilirubin Direct Bilirubin AST ALT Alkaline Phosphatase Lactate Dehydrogenase Troponin I High Sens C-Reactive Protein B-Natriuretic Peptide Total Protein Albumin Urine Color Yellow Urine Appearance Clear Urine pH 7.0 Ur Specific [place] 1.015 Urine Protein 100 (2+) H Urine Glucose (UA) Negative Urine Ketones Negative Urine Blood Small (1+) H Urine Nitrite Negative Ur Leukocyte Esterase Small (1+) H Urine RBC 3-5 H Urine WBC 11-20 H Ur Squamous Epith Cells 0-2 Urine Bacteria None Seen Hyaline Casts 0-2 Urine Opiates Screen Not Detected Urine Fentanyl Screen Not Detected Ur Barbiturates Screen Not Detected Ur Phencyclidine Scrn Not Detected Ur Amphetamines Screen Not Detected U Benzodiazepines Scrn Not Detected Urine Cocaine Screen Not Detected U Marijuana (THC) Screen Not Detected COVID-19 ([facility]) COVID-19 Disability Care Givers 04/06/22 04/06/22 04/06/22 21:12 21:12 21:12 MCV MCH MCHC RDW Plt Count MPV Immature Gran % (Auto) Neut % (Auto) Lymph % (Auto) [place] % (Auto) Eos % (Auto) Baso % (Auto) Lymph # (Auto) [place] # (Auto) Eos # (Auto) Baso # (Auto) Abs Immat Gran (auto) Absolute Neuts (auto) Absolute Nucleated RBC Nucleated RBC % (auto) Smear Tech's Comments PT INR APTT D-Dimer High Sensitivty VBG pH VBG pCO2 VBG pO2 VBG HCO3 VBG O2 Saturation VBG Base Excess Anion Gap 15 Estim Creat Clear Calc 66.6 Estimated GFR 33 POC Glucose Random Glucose 158 H Lactic Acid 0.4 L Calcium 8.3 L Ferritin Total Bilirubin 0.3 Direct Bilirubin 0.2 AST 21 D ALT 17 Alkaline Phosphatase 139 H Lactate Dehydrogenase Troponin I High Sens 3.6 C-Reactive Protein B-Natriuretic Peptide Total Protein 7.9 Albumin 2.7 L Urine Color Urine Appearance Urine pH Ur Specific [place] Urine Protein Urine Glucose (UA) Urine Ketones Urine Blood Urine Nitrite Ur Leukocyte Esterase Urine RBC Urine WBC Ur Squamous Epith Cells Urine Bacteria Hyaline Casts Urine Opiates Screen Urine Fentanyl Screen Ur Barbiturates Screen Ur Phencyclidine Scrn Ur Amphetamines Screen U Benzodiazepines Scrn Urine Cocaine Screen U Marijuana (THC) Screen COVID-19 ([facility]) COVID-19 Disability Care Givers 04/06/22 04/06/22 04/06/22 21:12 21:18 21:42 MCV MCH MCHC RDW Plt Count MPV Immature Gran % (Auto) Neut % (Auto) Lymph % (Auto) [place] % (Auto) Eos % (Auto) Baso % (Auto) Lymph # (Auto) [place] # (Auto) Eos # (Auto) Baso # (Auto) Abs Immat Gran (auto) Absolute Neuts (auto) Absolute Nucleated RBC Nucleated RBC % (auto) Smear Tech's Comments PT 11.8 INR 1.0 APTT D-Dimer High Sensitivty 891 VBG pH 7.32 VBG pCO2 60 VBG pO2 93 VBG HCO3 31 H VBG O2 Saturation 98.0 VBG Base Excess 4.4 Anion Gap Estim Creat Clear Calc Estimated GFR POC Glucose Random Glucose Lactic Acid Calcium Ferritin Total Bilirubin Direct Bilirubin AST ALT Alkaline Phosphatase Lactate Dehydrogenase Troponin I High Sens C-Reactive Protein B-Natriuretic Peptide 35 Total Protein Albumin Urine Color Urine Appearance Urine pH Ur Specific [place] Urine Protein Urine Glucose (UA) Urine Ketones Urine Blood Urine Nitrite Ur Leukocyte Esterase Urine RBC Urine WBC Ur Squamous Epith Cells Urine Bacteria Hyaline Casts Urine Opiates Screen Urine Fentanyl Screen Ur Barbiturates Screen Ur Phencyclidine Scrn Ur Amphetamines Screen U Benzodiazepines Scrn Urine Cocaine Screen U Marijuana (THC) Screen COVID-19 ([facility]) COVID-19 Clin Com 04/07/22 04/07/22 04/07/22 04:29 06:58 06:58 MCV Cancelled MCH Cancelled MCHC Cancelled RDW Cancelled Plt Count Cancelled MPV Cancelled Immature Gran % (Auto) Neut % (Auto) Lymph % (Auto) [place] % (Auto) Eos % (Auto) Baso % (Auto) Lymph # (Auto) [place] # (Auto) Eos # (Auto) Baso # (Auto) Abs Immat Gran (auto) Absolute Neuts (auto) Absolute Nucleated RBC Cancelled Nucleated RBC % (auto) Cancelled Smear Tech's Comments PT 12.1 INR 1.1 APTT 38.9 H D-Dimer High Sensitivty VBG pH VBG pCO2 VBG pO2 VBG HCO3 VBG O2 Saturation VBG Base Excess Anion Gap 16 Estim Creat Clear Calc 72.4 Estimated GFR 37 POC Glucose Random Glucose 135 H Lactic Acid Calcium 8.3 L Ferritin 39 Total Bilirubin Direct Bilirubin AST ALT Alkaline Phosphatase Lactate Dehydrogenase 207 Troponin I High Sens C-Reactive Protein 6.60 H B-Natriuretic Peptide Total Protein Albumin Urine Color Urine Appearance Urine pH Ur Specific [place] Urine Protein Urine Glucose (UA) Urine Ketones Urine Blood Urine Nitrite Ur Leukocyte Esterase Urine RBC Urine WBC Ur Squamous Epith Cells Urine Bacteria Hyaline Casts Urine Opiates Screen Urine Fentanyl Screen Ur Barbiturates Screen Ur Phencyclidine Scrn Ur Amphetamines Screen U Benzodiazepines Scrn Urine Cocaine Screen U Marijuana (THC) Screen COVID-19 ([facility]) COVID-19 Disability Care Givers 04/07/22 04/07/22 04/07/22 06:58 07:39 09:58 MCV 84.7 MCH 25.4 L MCHC 30.0 L RDW 15.9 Plt Count 188 D MPV 10.3 Immature Gran % (Auto) 0.5 H Neut % (Auto) 51.0 Lymph % (Auto) 36.0 [place] % (Auto) 12.0 H Eos % (Auto) 0.0 Baso % (Auto) 0.5 Lymph # (Auto) 1.6 [place] # (Auto) 0.5 Eos # (Auto) 0.0 Baso # (Auto) 0.0 Abs Immat Gran (auto) 0.02 Absolute Neuts (auto) 2.2 Absolute Nucleated RBC 0.000 Nucleated RBC % (auto) 0.0 Smear Tech's Comments PT INR APTT D-Dimer High Sensitivty VBG pH VBG pCO2 VBG pO2 VBG HCO3 VBG O2 Saturation VBG Base Excess Anion Gap Estim Creat Clear Calc Estimated GFR POC Glucose 137 H Random Glucose Lactic Acid Calcium Ferritin Total Bilirubin Direct Bilirubin AST ALT Alkaline Phosphatase Lactate Dehydrogenase Troponin I High Sens C-Reactive Protein B-Natriuretic Peptide Total Protein Albumin Urine Color Urine Appearance Urine pH Ur Specific [place] Urine Protein Urine Glucose (UA) Urine Ketones Urine Blood Urine Nitrite Ur Leukocyte Esterase Urine RBC Urine WBC Ur Squamous Epith Cells Urine Bacteria Hyaline Casts Urine Opiates Screen Urine Fentanyl Screen Ur Barbiturates Screen Ur Phencyclidine Scrn Ur Amphetamines Screen U Benzodiazepines Scrn Urine Cocaine Screen U Marijuana (THC) Screen COVID-19 ([facility]) Positive A COVID-19 Disability Care Givers See Note 04/07/22 13:18 MCV MCH MCHC RDW Plt Count MPV Immature Gran % (Auto) Neut % (Auto) Lymph % (Auto) [place] % (Auto) Eos % (Auto) Baso % (Auto) Lymph # (Auto) [place] # (Auto) Eos # (Auto) Baso # (Auto) Abs Immat Gran (auto) Absolute Neuts (auto) Absolute Nucleated RBC Nucleated RBC % (auto) Smear Tech's Comments PT INR APTT D-Dimer High Sensitivty VBG pH VBG pCO2 VBG pO2 VBG HCO3 VBG O2 Saturation VBG Base Excess Anion Gap Estim Creat Clear Calc Estimated GFR POC Glucose 184 H Random Glucose Lactic Acid Calcium Ferritin Total Bilirubin Direct Bilirubin AST ALT Alkaline Phosphatase Lactate Dehydrogenase Troponin I High Sens C-Reactive Protein B-Natriuretic Peptide Total Protein Albumin Urine Color Urine Appearance Urine pH Ur Specific [place] Urine Protein Urine Glucose (UA) Urine Ketones Urine Blood Urine Nitrite Ur Leukocyte Esterase Urine RBC Urine WBC Ur Squamous Epith Cells Urine Bacteria Hyaline Casts Urine Opiates Screen Urine Fentanyl Screen Ur Barbiturates Screen Ur Phencyclidine Scrn Ur Amphetamines Screen U Benzodiazepines Scrn Urine Cocaine Screen U Marijuana (THC) Screen COVID-19 ([facility]) COVID-19 Clin Com Microbiology Microbiology Results: Microbiology 04/06/22 21:04 Urine Culture - Preliminary Urine clean catch - Urine quevedo top No growth to date. Assessment and Plan (1) Acute hypoxemic respiratory failure due to COVID-19: Status: Acute Plan 51-year-old female with past medical history of hypertension, diabetes, hyperlipidemia, significant morbid obesity, who was initially stat under case management under ED this incision observation from 01/10-04/05, she was sent to [facility] but returns with hypoxic respiratory failure acute hypoxic respiratory failure secondary to COVID-19 IV decadron ID consult pending has elevated D-dimer of 800, patient has CKD therefore cannot get CT angiogram with contrast - V/Q scan pending - will prophylactically treat with Lovenox pending V/Q scan UTI ruled out Urine culture negative Will DC antibiotics chronic pressure ulcer present on admission - wound care morbid obesity BMI 62.5 DM SSI, Diabetic diet home insulin HTN - stable - continue home antihypertensives mood disorder - continue home medications hypothyroidism - continue levothyroxine HLD continue statin OUD continue suboxone DVT prophylaxis: Lovenox Attending - dr. warner Given patient's hypoxia and requirement for O2 patient require minimum 2 night inpatient hospital stay for further management Quality Stroke Does the patient have a stroke diagnosis?: No VTE Prior VTE?: No VTE Risk Level:: Medical - moderate - high VTE Device Contraindication: Treatment Not Indicated VTE Drug Contraindication: N/A - Med Ordered
--- NOTE | 2022-04-07 14:52 | MHC.CM.PN ---
spoke with pavel from [facility] they can not accept pt back till tuesday 04/10 due to staffing
[2022-04-07] MEDS: Insulin Lispro 100 UNIT/ML 3 ML VIAL SUBCUT ×3 (15:02→20:41)
--- NOTE | 2022-04-07 15:27 | PC.NURSE ---
pt c/o burning from her catheter. request to have it removed. this marketing writer heather connected Sary miranda, per provider - plan to keep parsons in at least 24 hr for placement for urinary retention
--- NOTE | 2022-04-07 15:57 | PC.NURSE ---
Sary miranda down to see pt. pt agreed to go to [facility] for VQ scan if she can have her parsons cath removed. explained reasoning for parsons placement to pt and the risk to need to place a new one if we remove this one and she cannot urinate, putting pt at risk for infection. pt continued to adamantly request removal of parsons catheter. per sary, ok to remove parsons, monitor for urine output. 600cc in parsons bag with bag d/c
--- NOTE | 2022-04-07 16:13 | W.PM.IDCN ---
History of Present Illness Data of Consult Service Date: 04/07/22 Requesting physician: Sary Corwell Primary Care Provider: Unknown Physician HPI Reason for consult: COVID,hypoxia Patient was in Rehab and stayed there for a day. She presents with shortness of breath and cough. She has dry cough. She is on oxygen but mentions has been on 2 liters before. She is unvaccinated and never had COVID before. She is COVID positive now. Review of Systems Review of Systems: Yes all other systems are reviewed and are negative [facility] Past Medical History Medical History Bilateral edema of lower extremity Choledocholithiasis Chronic respiratory failure with hypoxia DMII (diabetes mellitus, type 2) High cholesterol HTN (hypertension) Hydronephrosis of right kidney Hydroureteronephrosis Hypothyroid Kidney stones Morbid obesity Morbid obesity Normocytic anemia Pyelonephritis Pyelonephritis UTI (urinary tract infection) Family History Family History Mother Coronary artery disease Diabetes Surgical History Surgical History No pertinent past surgical history Social History Social History Household Members: Significant Other Household Members Other:: 2 Housing: Apartment Do you presently have visiting nurse or other home services: No Alcohol intake: former Patient Tobacco Use Status: Former Tobacco user Tobacco use type: Cigarette Cigarettes Per Day: 5 Years Smoked: 41 Second Hand Smoke Exposure: No Substance Use Type: Former Substance User Advance Directives: Yes Advance Directives on File: Yes Advance Directives Date on File: 01/25/22 service: No Current occupational status: unemployed Meds Allergies Allergy/AdvReac Type Severity Reaction Status Date / Time canagliflozin [From Invokana] Allergy Rash Verified 03/23/22 10:31 latex Allergy Itching Verified 03/23/22 10:31 metformin Allergy Hives Verified 03/23/22 10:31 Penicillins Allergy Rash Verified 03/23/22 10:31 sitagliptin [From Januvia] Allergy Rash Verified 03/23/22 10:31 Active Medications: Current Medications Acetaminophen (Acetaminophen 325 Mg Tablet) 650 mg PO Q6H PRN PRN Reason: Pain, Mild (Pain Scale 1-3) Albuterol Sulfate (Albuterol Sulfate 90 Mcg 8 Gm Inhaler) 2 puff INHALE Q4H PRN PRN Reason: wheezing Amlodipine Besylate (Amlodipine Besylate 5 Mg Tablet) 5 mg PO DAILY [facility]; Protocol Last Admin: 04/07/22 10:51 Dose: 5 mg Aspirin (Aspirin Enteric Coated 81 Mg Tablet.Dr) 81 mg PO DAILY [facility] Atorvastatin Calcium (Atorvastatin Calcium 80 Mg Tablet) 80 mg PO BEDTIME [facility] Buprenorphine/Naloxone (Buprenorphine/Naloxone 8/2 Mg Film) 1 film BUCCAL TID [facility] Last Admin: 04/07/22 15:02 Dose: 1 film Clonazepam (Clonazepam 0.5 Mg Tablet) 0.5 mg PO DAILY [facility] Last Admin: 04/07/22 11:54 Dose: 0.5 mg Dexamethasone Sodium Phosphate (Dexamethasone Sod Phosphate 4 Mg/Ml Vial) 6 mg IVPUSH DAILY [facility] Stop: 04/16/22 08:59 Last Admin: 04/07/22 10:51 Dose: 6 mg Dextrose (Dextrose 50 % 25 Gm/50 Ml Syringe) 25 gm IVPUSH Q15M PRN; Protocol PRN Reason: per Hypoglycemia Standing Ord. Docusate Sodium (Docusate Sodium 100 Mg Capsule) 100 mg PO DAILY PRN PRN Reason: Constipation Enoxaparin Sodium (Enoxaparin Sodium 100 Mg/Ml Syringe) 100 mg SUBCUT Q12H [facility] Last Admin: 04/07/22 06:04 Dose: 100 mg Fluoxetine HCl (Fluoxetine Hcl 20 Mg Capsule) 60 mg PO DAILY [facility] Last Admin: 04/07/22 10:51 Dose: 60 mg Gabapentin (Gabapentin 600 Mg Tablet) 600 mg PO TID [facility] Last Admin: 04/07/22 15:02 Dose: 600 mg Glucose (Glucose Gel 15 Gm Gel..Gram.) 15 gm PO Q15M PRN; Protocol PRN Reason: per Hypoglycemia Standing Ord. Insulin Glargine (Insulin Glargine,Hum.Rec.Anlog 100 Unit/Ml 10 Ml Vial) 28 unit SUBCUT DAILY [facility] Insulin Human Lispro (Insulin Lispro 100 Unit/Ml 3 Ml Vial) 0 unit SUBCUT QIDACHS [facility]; Protocol Last Admin: 04/07/22 15:02 Dose: 2 unit Levothyroxine Sodium (Levothyroxine Sodium 75 Mcg Tablet) 75 mcg PO DAILY@0600 [facility] Last Admin: 04/07/22 11:04 Dose: Not Given Levothyroxine Sodium (Levothyroxine Sodium 200 Mcg Tablet) 200 mcg PO DAILY@0600 [facility] Last Admin: 04/07/22 11:05 Dose: Not Given Loratadine (Loratadine 10 Mg Tablet) 10 mg PO DAILY [facility] Omeprazole (Omeprazole 20 Mg Capsule.Dr) 20 mg PO BID@0630,1630 [facility] Ondansetron HCl (Ondansetron Hcl 4 Mg/2 Ml Vial) 4 mg IVPUSH Q8H PRN PRN Reason: Nausea and Vomiting Pharmacy Consult (Consult Rx Perform Med Rec) 1 each MISCELLANE ONCE PRN PRN Reason: Consult order Sodium Chloride (0.9 % Sodium Chloride Flush 3 Ml Syringe) 3 ml IVFLUSH QSHIFT [facility] Last Admin: 04/07/22 10:54 Dose: 3 ml Trazodone HCl (Trazodone Hcl 100 Mg Tablet) 200 mg PO BEDTIME [facility] Home Medications Medication Instructions Recorded Confirmed Last Taken Type albuterol sulfate 90 mcg/actuation 2 puff PO Q4H PRN wheezing 08/13/21 04/07/22 11/07/21 History aerosol inhaler (ProAir HFA) aspirin 81 mg tablet,delayed 1 tab PO DAILY 08/13/21 04/07/22 11/07/21 History release omeprazole 20 mg capsule,delayed 1 cap PO BID@0630,1630 08/13/21 04/07/22 11/07/21 History release blood sugar diagnostic (FreeStyle #10 ea 09/21/21 01/25/22 11/07/21 History Lite Strips) pen needle, diabetic 31 gauge x #1,200 ea 09/21/21 01/25/22 11/07/21 History 5/16 (UltiCare Pen Needle) buprenorphine 8 mg-naloxone 2 mg 1 film buccal TID 04/07/22 04/07/22 Unknown History sublingual film (Suboxone) levothyroxine 200 mcg tablet 200 mcg PO DAILY@0600 04/07/22 04/07/22 Unknown History (Synthroid) levothyroxine 75 mcg tablet 1 tab PO DAILY@0600 04/07/22 04/07/22 Unknown History Physical Exam Vital Signs: Vital Signs: Last Vital Signs Temp 97.8 F 04/07/22 07:40 Pulse 67 04/07/22 07:40 Resp 13 04/07/22 07:40 BP 145/77 H 04/07/22 07:40 Pulse Ox 97 04/07/22 07:40 O2 Del Method 04/07/22 07:40 O2 Flow Rate 2 04/07/22 04:00 BMI result Body Mass Index 62.4 HEENT: Head: Yes normal to inspection Mouth: Normal oral and palatal mucosa present Resp: Effort & Inspection: uses accessory muscles Cardio: Rate: regular rate Rhythm: regular rhythm GI: Palpation (GI): nontender Extrem: General: Yes normal to inspection Results Labs CBC & Chem 7: 04/07/22 06:58 04/07/22 04:29 Labs: Short CBC 04/06/22 04/07/22 04/07/22 Range/Units 21:12 06:58 06:58 WBC 5.3 Cancelled 4.3 L (4.8-10.8) X10*3/uL Hgb 8.9 L Cancelled 9.3 L (12.0-16.0) g/dl Hct 30.0 L Cancelled 31.0 L (37.0-47.0) % Plt Count Not Reportable Cancelled 188 D BMP 04/06/22 04/07/22 21:12 04:29 Sodium 137 139 Potassium 5.0 4.7 Chloride 103 104 Carbon Dioxide 24 24 BUN 33 H 32 H Creatinine 1.63 H 1.50 H Calcium 8.3 L 8.3 L Liver Function 04/06/22 Range/Units 21:12 Total Bilirubin 0.3 (0.0-1.0) mg/dL Direct Bilirubin 0.2 (0.0-0.5) mg/dL AST 21 D (5-31) U/L ALT 17 (0-31) U/L Alkaline Phosphatase 139 H (39-117) U/L Albumin 2.7 L (3.5-5.0) g/dL Urine 04/06/22 Range/Units 20:44 Urine Color Yellow Urine Appearance Clear Urine pH 7.0 (5.0-9.0) Ur Specific [place] 1.015 (1.005-1.025) Urine Protein 100 (2+) H (Neg-Trace) mg/dL Urine Glucose (UA) Negative (Negative) mg/dL Microbiology Microbiology Results: Microbiology 04/06/22 21:04 Urine clean catch - Urine quevedo top Urine Culture - Preliminary No growth to date. Assessment and Plan (1) Acute hypoxemic respiratory failure due to COVID-19: Status: Acute She has acute COVID and is unvaccinated. She is at risk due to age and high BMI She will agree to Dexamethasone but declines Remdesivir which is B2 recommendation (2) Non-pressure chronic ulcer right thigh, limited to breakdown skin: Status: Acute (3) Physical deconditioning: Status: Acute Plan Continue oxygen as needed.. VTE prophylaxis, Dexamethasone 6 mg daily for 10 days or until no longer hypoxic. Consider baricitinib if high flow oxygen
[2022-04-07] MEDS: LORazepam 0.5 MG TABLET PO (16:14)
--- NOTE | 2022-04-07 16:35 | PC.NURSE ---
pt off unit to [facility] for VQ scan
[2022-04-07 17:35] VITALS: BP 166/87; PULSE 76; RESP 20; O2SAT 95
[2022-04-07] MEDS: Omeprazole 20 MG CAPSULE.DR PO (18:27)
[2022-04-07 19:00] LABS: Glucose, Whole Blood 261 mg/dL (60-115)
[2022-04-07 20:35] LABS: Glucose, Whole Blood 285 mg/dL (60-115)
[2022-04-07] MEDS: traZODone HCL 100 MG TABLET 200 MG PO (20:40)
[2022-04-07] MEDS: Acetaminophen 325 MG TABLET 650 MG PO (20:40)
[2022-04-07] MEDS: Atorvastatin Calcium 80 MG TABLET PO (20:41)
[2022-04-07 23:37] VITALS: BP 132/60; PULSE 62; RESP 20; TEMP 36.1; O2SAT 97
[2022-04-07 23:39] LABS: Glucose, Whole Blood 278 mg/dL (60-115)
[2022-04-08 04:00] VITALS: BP 140/81; PULSE 63; RESP 20; TEMP 36.1; O2SAT 92
[2022-04-08] MEDS: Enoxaparin Sodium 100 MG/ML SYRINGE SUBCUT (05:36)
[2022-04-08] MEDS: Levothyroxine Sodium 75 MCG TABLET PO (05:36)
[2022-04-08] MEDS: Levothyroxine Sodium 200 MCG TABLET PO (05:36)
[2022-04-08] MEDS: Omeprazole 20 MG CAPSULE.DR PO ×2 (05:36→16:46)
[2022-04-08 06:05] VITALS: BMI 62.8
[2022-04-08 06:07] VITALS: BMI 62.8
[2022-04-08 07:40] LABS: Prothrombin Time 11.9 SEC (10.0-13.1)
[2022-04-08 07:43] LABS: Hematocrit 30.1 % (37.0-47.0); Hemoglobin 9.2 g/dl (12.0-16.0); Mean Corpuscular HGB Conc 30.6 g/dl (31.0-35.0); Mean Corpuscular Hemoglobin 25.3 pg (27.0-33.0); Mean Corpuscular Volume 82.7 fL (80.0-98.0); Mean Platelet Volume 10.4 fL (9.4-12.3); Platelet Count 186 X10*3/uL (160-400); Red Blood Count 3.64 X10*6/uL (4.20-5.50); Red Cell Distribution Width 15.6 % (11.0-16.0)
[2022-04-08 07:47] LABS: Glucose, Whole Blood 246 mg/dL (60-115)
[2022-04-08 08:00] VITALS: BP 151/78; PULSE 82; RESP 16; TEMP 36.5; O2SAT 93
[2022-04-08] MEDS: dexAMETHasone sod phosphate 4 MG/ML VIAL 6 MG IVPUSH (08:48)
[2022-04-08] MEDS: Gabapentin 600 MG TABLET PO ×3 (08:49→20:44)
[2022-04-08] MEDS: FLUoxetine HCl 20 MG CAPSULE 60 MG PO (08:49)
[2022-04-08] MEDS: Aspirin Enteric Coated 81 MG TABLET.DR PO (08:49)
[2022-04-08] MEDS: amLODIPine Besylate 5 MG TABLET PO (08:49)
[2022-04-08] MEDS: clonazePAM 0.5 MG TABLET PO (08:49)
[2022-04-08] MEDS: Insulin Lispro 100 UNIT/ML 3 ML VIAL SUBCUT ×4 (08:49→20:44)
[2022-04-08] MEDS: Buprenorphine/Naloxone 8/2 mg FILM 1 FILM BUCCAL ×3 (08:49→20:44)
[2022-04-08] MEDS: Loratadine 10 MG TABLET PO (08:49)
[2022-04-08] MEDS: 0.9 % Sodium Chloride Flush 3 ML SYRINGE IVFLUSH ×3 (08:50→20:44)
[2022-04-08] MEDS: Insulin Glargine,Hum.rec.anlog 100 UNIT/ML 10 ML VIAL 28 UNIT SUBCUT (08:50)
[2022-04-08 10:49] LABS: Anion Gap 15 (12-20); Blood Urea Nitrogen 39 mg/dL (9-16); Calcium 8.1 mg/dL (8.4-10.2); Carbon Dioxide 24 mmol/L (22-29); Chloride 101 mmol/L (96-108); Creatinine Clr Calc Pharmacy 67.7; Estimated Glomerular Filt Rate 34; Glucose Random 287 mg/dL (60-115); Sodium 135 mmol/L (135-145)
[2022-04-08 11:34] LABS: Glucose, Whole Blood 192 mg/dL (60-115)
[2022-04-08 12:00] VITALS: BP 160/59; PULSE 62; RESP 20; TEMP 37
--- NOTE | 2022-04-08 13:27 | P.PNIM_ITS ---
Subjective Subjective Date of Service: 04/08/22 Interval History: seen and examined this morning follow up for respiratory failure, covid 19 feeling better today no shortness of breath, body aches or fever Review of Systems Review of Systems: Yes all other systems are reviewed and are negative Constitutional Constitutional: Denies body ache(s), Denies chills and Denies fever(s) Cardiovascular Cardiovascular: Denies chest pain, Denies palpitations and Denies dyspnea Respiratory Respiratory: Denies cough and Denies dyspnea Gastrointestinal Gastrointestinal: Denies abdominal pain, Denies nausea and Denies vomiting Endocrine Endocrine: Denies palpitations Physical Exam Vital Signs: Vital Signs: Last Vital Signs Temp 97.7 F 04/08/22 08:00 Pulse 82 04/08/22 08:00 Resp 16 04/08/22 08:00 BP 151/78 H 04/08/22 08:00 Pulse Ox 93 04/08/22 08:00 O2 Del Method 04/08/22 08:00 O2 Flow Rate 2 04/08/22 04:00 BMI result Body Mass Index 62.8 Const: General: comfortable, no acute distress, alert and awake Nutritional Appearance: obese Orientation/consciousness: patient oriented x3 Resp: Effort & Inspection: normal respiratory effort and able to speak in complete sentences Cardio: Rate: regular rate Heart sounds: S1 normal heart sound present and S2 normal heart sound present Skin: Other: left anterior fisher. no erythema, fluctuance or drainage, does not appear infected Neuro: General: patient oriented x3 and CN's II-XI intact bilaterally Extrem: General: Yes no pedal edema Objective Data Active Medications Acetaminophen (Acetaminophen 325 Mg Tablet) 650 mg PO Q6H PRN PRN Reason: Pain, Mild (Pain Scale 1-3) Last Admin: 04/07/22 20:40 Dose: 650 mg Documented By: PANTERA Albuterol Sulfate (Albuterol Sulfate 90 Mcg 8 Gm Inhaler) 2 puff INHALE Q4H PRN PRN Reason: wheezing Amlodipine Besylate (Amlodipine Besylate 5 Mg Tablet) 5 mg PO DAILY [facility]; Protocol Last Admin: 04/08/22 08:49 Dose: 5 mg Documented By: JESUSITA Aspirin (Aspirin Enteric Coated 81 Mg Tablet.) 81 mg PO DAILY [facility] Last Admin: 04/08/22 08:49 Dose: 81 mg Documented By: JESUSITA Atorvastatin Calcium (Atorvastatin Calcium 80 Mg Tablet) 80 mg PO BEDTIME [facility] Last Admin: 04/07/22 20:41 Dose: 80 mg Documented By: PANTERA Buprenorphine/Naloxone (Buprenorphine/Naloxone 8/2 Mg Film) 1 film BUCCAL TID [facility] Last Admin: 04/08/22 08:49 Dose: 1 film Documented By: JESUSITA Clonazepam (Clonazepam 0.5 Mg Tablet) 0.5 mg PO DAILY [facility] Last Admin: 04/08/22 08:49 Dose: 0.5 mg Documented By: JESUSITA Dexamethasone Sodium Phosphate (Dexamethasone Sod Phosphate 4 Mg/Ml Vial) 6 mg IVPUSH DAILY [facility] Stop: 04/16/22 08:59 Last Admin: 04/08/22 08:48 Dose: 6 mg Documented By: JESUSITA Dextrose (Dextrose 50 % 25 Gm/50 Ml Syringe) 25 gm IVPUSH Q15M PRN; Protocol PRN Reason: per Hypoglycemia Standing Ord. Docusate Sodium (Docusate Sodium 100 Mg Capsule) 100 mg PO DAILY PRN PRN Reason: Constipation Enoxaparin Sodium (Enoxaparin Sodium 40 Mg/0.4 Ml Syringe) 40 mg SUBCUT Q24H [facility] Fluoxetine HCl (Fluoxetine Hcl 20 Mg Capsule) 60 mg PO DAILY [facility] Last Admin: 04/08/22 08:49 Dose: 60 mg Documented By: JESUSITA Gabapentin (Gabapentin 600 Mg Tablet) 600 mg PO TID [facility] Last Admin: 04/08/22 08:49 Dose: 600 mg Documented By: JESUSITA Glucose (Glucose Gel 15 Gm Gel..Gram.) 15 gm PO Q15M PRN; Protocol PRN Reason: per Hypoglycemia Standing Ord. Insulin Glargine (Insulin Glargine,Hum.Rec.Anlog 100 Unit/Ml 10 Ml Vial) 28 unit SUBCUT DAILY [facility] Last Admin: 04/08/22 08:50 Dose: 28 unit Documented By: JESUSITA Insulin Human Lispro (Insulin Lispro 100 Unit/Ml 3 Ml Vial) 0 unit SUBCUT QIDACHS [facility]; Protocol Last Admin: 04/08/22 12:01 Dose: 2 unit Documented By: JESUSITA Levothyroxine Sodium (Levothyroxine Sodium 75 Mcg Tablet) 75 mcg PO DAILY@0600 [facility] Last Admin: 04/08/22 05:36 Dose: 75 mcg Documented By: RUBIN Levothyroxine Sodium (Levothyroxine Sodium 200 Mcg Tablet) 200 mcg PO DAILY@0600 [facility] Last Admin: 04/08/22 05:36 Dose: 200 mcg Documented By: RUBIN Loratadine (Loratadine 10 Mg Tablet) 10 mg PO DAILY [facility] Last Admin: 04/08/22 08:49 Dose: 10 mg Documented By: JESUSITA Omeprazole (Omeprazole 20 Mg Capsule.Dr) 20 mg PO BID@0630,1630 [facility] Last Admin: 04/08/22 05:36 Dose: 20 mg Documented By: RUBIN Ondansetron HCl (Ondansetron Hcl 4 Mg/2 Ml Vial) 4 mg IVPUSH Q8H PRN PRN Reason: Nausea and Vomiting Pharmacy Consult (Consult Rx Perform Med Rec) 1 each MISCELLANE ONCE PRN PRN Reason: Consult order Sodium Chloride (0.9 % Sodium Chloride Flush 3 Ml Syringe) 3 ml IVFLUSH QSHIFT [facility] Last Admin: 04/08/22 08:50 Dose: 3 ml Documented By: JESUSITA Trazodone HCl (Trazodone Hcl 100 Mg Tablet) 200 mg PO BEDTIME [facility] Last Admin: 04/07/22 20:40 Dose: 200 mg Documented By: PANTERA Labs CBC & Chem 7: 04/08/22 07:16 04/08/22 07:16 Labs: Laboratory Results - last 24 hr 04/07/22 04/07/22 04/07/22 18:01 20:31 23:30 MCV MCH MCHC RDW Plt Count MPV Absolute Nucleated RBC Nucleated RBC % (auto) PT INR Anion Gap Estim Creat Clear Calc Estimated GFR POC Glucose 261 H 285 H 278 H Random Glucose Calcium 04/08/22 04/08/22 04/08/22 07:16 07:16 07:16 MCV 82.7 MCH 25.3 L MCHC 30.6 L RDW 15.6 Plt Count 186 MPV 10.4 Absolute Nucleated RBC 0.000 Nucleated RBC % (auto) 0.0 PT 11.9 INR 1.0 Anion Gap 15 Estim Creat Clear Calc 67.7 Estimated GFR 34 POC Glucose Random Glucose 287 H Calcium 8.1 L 04/08/22 04/08/22 07:34 11:27 MCV MCH MCHC RDW Plt Count MPV Absolute Nucleated RBC Nucleated RBC % (auto) PT INR Anion Gap Estim Creat Clear Calc Estimated GFR POC Glucose 246 H 192 H Random Glucose Calcium Microbiology Microbiology Results: Microbiology 04/06/22 21:04 Urine Culture - Final Urine clean catch - Urine quevedo top No growth. 04/06/22 21:12 Blood Culture - Preliminary Blood - Venous No growth after 24 hours. 04/06/22 21:12 Blood Culture - Preliminary Blood - Venous No growth after 24 hours. Assessment and Plan (1) Acute hypoxemic respiratory failure due to COVID-19: Status: Acute Plan 51-year-old female with past medical history of hypertension, diabetes, hyperli pidemia, significant morbid obesity, who was initially stat under case management under ED this incision observation from 01/10-04/05, she was sent to [facility] LTAC but returns with hypoxic respiratory failure acute on chronic hypoxic respiratory failure secondary to COVID-19 pt previously on 2L oxygen, requiring 3 at present continue IV decadron seen by ID - pt declined remdicivir has elevated D-dimer of 800, VQ negative for PE follow inflammatory markers, ferritin 39, ldh 207, crp 6.60 UTI ruled out Urine culture negative Will DC antibiotics chronic left fisher wound present on admission continue local wound care CKD3 creatinine appears to be within baseline follow BMP morbid obesity BMI 62.5 DM SSI, Diabetic diet home insulin HTN - stable - continue home antihypertensives mood disorder - continue home medications hypothyroidism - continue levothyroxine HLD continue statin OUD continue suboxone DVT prophylaxis: Lovehennyx Attending - dr. Garcias Dispo - plan to return to [facility] when medically ready, unable to return over the weekend due to staffing Requires ongoing inpatient hospitalization due to respiratory failure/need for supplemental oxygen Quality Stroke Does the patient have a stroke diagnosis?: No VTE Prior VTE?: No VTE Risk Level:: Medical - moderate - high VTE Device Contraindication: Treatment Not Indicated VTE Drug Contraindication: N/A - Med Ordered
[2022-04-08 15:33] VITALS: BP 144/63; PULSE 70; RESP 18; TEMP 36.7; O2SAT 92
[2022-04-08 16:31] LABS: Glucose, Whole Blood 291 mg/dL (60-115)
[2022-04-08 19:20] VITALS: BP 174/87; PULSE 52; RESP 15; TEMP 36.2; O2SAT 97
[2022-04-08 20:18] LABS: Glucose, Whole Blood 309 mg/dL (60-115)
[2022-04-08] MEDS: Atorvastatin Calcium 80 MG TABLET PO (20:44)
[2022-04-08] MEDS: traZODone HCL 100 MG TABLET 200 MG PO (20:44)
[2022-04-09] VITALS: BP 176/85; PULSE 62; RESP 16; TEMP 36.2; O2SAT 96
[2022-04-09 03:24] VITALS: BP 172/92; PULSE 67; RESP 16; TEMP 36.2; O2SAT 96
[2022-04-09] MEDS: Omeprazole 20 MG CAPSULE.DR PO ×2 (06:37→16:35)
[2022-04-09] MEDS: Levothyroxine Sodium 75 MCG TABLET PO (06:37)
[2022-04-09] MEDS: Levothyroxine Sodium 200 MCG TABLET PO (06:37)
[2022-04-09] MEDS: Enoxaparin Sodium 40 MG/0.4 ML SYRINGE SUBCUT (06:37)
[2022-04-09 07:22] VITALS: BP 195/81; PULSE 51; RESP 18; TEMP 36.1; O2SAT 99
[2022-04-09] MEDS: Buprenorphine/Naloxone 8/2 mg FILM 1 FILM BUCCAL ×3 (07:44→20:56)
[2022-04-09] MEDS: dexAMETHasone sod phosphate 4 MG/ML VIAL 6 MG IVPUSH (07:44)
[2022-04-09] MEDS: 0.9 % Sodium Chloride Flush 3 ML SYRINGE IVFLUSH ×3 (07:44→20:56)
[2022-04-09 07:45] LABS: Glucose, Whole Blood 256 mg/dL (60-115)
[2022-04-09] MEDS: Gabapentin 600 MG TABLET PO ×3 (07:45→20:56)
[2022-04-09] MEDS: Aspirin Enteric Coated 81 MG TABLET.DR PO (07:45)
[2022-04-09] MEDS: clonazePAM 0.5 MG TABLET PO (07:45)
[2022-04-09] MEDS: Loratadine 10 MG TABLET PO (07:45)
[2022-04-09] MEDS: FLUoxetine HCl 20 MG CAPSULE 60 MG PO (07:45)
[2022-04-09] MEDS: amLODIPine Besylate 5 MG TABLET PO (07:45)
[2022-04-09] MEDS: Insulin Lispro 100 UNIT/ML 3 ML VIAL SUBCUT ×4 (07:46→20:56)
[2022-04-09] MEDS: Insulin Glargine,Hum.rec.anlog 100 UNIT/ML 10 ML VIAL 28 UNIT SUBCUT (07:46)
[2022-04-09 08:38] LABS: Anion Gap 15 (12-20); Blood Urea Nitrogen 40 mg/dL (9-16); Calcium 8.5 mg/dL (8.4-10.2); Carbon Dioxide 26 mmol/L (22-29); Chloride 101 mmol/L (96-108); Creatinine Clr Calc Pharmacy 71.7; Estimated Glomerular Filt Rate 36; Glucose Random 296 mg/dL (60-115); Potassium 4.4 mmol/L (3.3-5.1); Sodium 138 mmol/L (135-145)
[2022-04-09 10:31] VITALS: BP 171/82
[2022-04-09 11:20] LABS: Glucose, Whole Blood 298 mg/dL (60-115)
--- NOTE | 2022-04-09 14:50 | P.PNIM_ITS ---
Subjective Subjective Date of Service: 04/09/22 Interval History: seen and examined this morning follow up for respiratory failure, covid 19 reports no shortness of breath or cough at this time Review of Systems Review of Systems: Yes all other systems are reviewed and are negative Constitutional Constitutional: Denies anorexia, Denies body ache(s), Denies chills, Denies fev er(s) and Denies lethargy Cardiovascular Cardiovascular: Denies chest pain, Denies palpitations and Denies dyspnea Respiratory Respiratory: Denies cough and Denies dyspnea Gastrointestinal Gastrointestinal: Denies abdominal pain, Denies nausea and Denies vomiting Endocrine Endocrine: Denies palpitations Physical Exam Vital Signs: Vital Signs: Last Vital Signs Temp 97.0 F 04/09/22 07:22 Pulse 51 04/09/22 07:22 Resp 18 04/09/22 07:22 BP 171/82 H 04/09/22 10:31 Pulse Ox 99 04/09/22 07:22 O2 Del Method 04/09/22 07:22 O2 Flow Rate 1.5 04/09/22 07:22 BMI result Body Mass Index 62.8 Const: Other: Significant obesity, difficult to complete appropriate exam General: c ooperative, comfortable, no acute distress, alert and awake Nutritional Appearance: obese Orientation/consciousness: patient oriented x3 HEENT: Head: Yes normal to inspection Mouth: Normal oral and palatal mucosa present Eyes: General: appearance normal, both eyes and all related structures Resp: Other: Distant breath sounds, diminished Effort & Inspection: normal respiratory effort, able to speak in complete sentences, no respiratory distress and no use of accessory muscles Cardio: Rate: regular rate Rhythm: regular rhythm Heart sounds: S1 normal heart sound present and S2 normal heart sound present GI: Palpation (GI): Soft to palpation and nontender Auscultation: normal bowel sounds Skin: Other: left anterior fisher. no erythema, fluctuance or drainage, does not appear infected General skin exam: no rashes or lesions noted Neuro: General: patient oriented x3 and CN's II-XI intact bilaterally Cognition (Neuro): normal cognition Extrem: General: Yes normal to inspection and Yes no pedal edema Objective Data Active Medications Acetaminophen (Acetaminophen 325 Mg Tablet) 650 mg PO Q6H PRN PRN Reason: Pain, Mild (Pain Scale 1-3) Last Admin: 04/07/22 20:40 Dose: 650 mg Documented By: PANTERA Albuterol Sulfate (Albuterol Sulfate 90 Mcg 8 Gm Inhaler) 2 puff INHALE Q4H PRN PRN Reason: wheezing Amlodipine Besylate (Amlodipine Besylate 5 Mg Tablet) 5 mg PO DAILY [facility]; Protocol Last Admin: 04/09/22 07:45 Dose: 5 mg Documented By: JESUSITA Aspirin (Aspirin Enteric Coated 81 Mg Tablet.Dr) 81 mg PO DAILY [facility] Last Admin: 04/09/22 07:45 Dose: 81 mg Documented By: JESUSITA Atorvastatin Calcium (Atorvastatin Calcium 80 Mg Tablet) 80 mg PO BEDTIME [facility] Last Admin: 04/08/22 20:44 Dose: 80 mg Documented By: YANG Buprenorphine/Naloxone (Buprenorphine/Naloxone 8/2 Mg Film) 1 film BUCCAL TID [facility] Last Admin: 04/09/22 07:44 Dose: 1 film Documented By: JESUSITA Clonazepam (Clonazepam 0.5 Mg Tablet) 0.5 mg PO DAILY [facility] Last Admin: 04/09/22 07:45 Dose: 0.5 mg Documented By: JESUSITA Dexamethasone Sodium Phosphate (Dexamethasone Sod Phosphate 4 Mg/Ml Vial) 6 mg IVPUSH DAILY [facility] Stop: 04/16/22 08:59 Last Admin: 04/09/22 07:44 Dose: 6 mg Documented By: JESUSITA Dextrose (Dextrose 50 % 25 Gm/50 Ml Syringe) 25 gm IVPUSH Q15M PRN; Protocol PRN Reason: per Hypoglycemia Standing Ord. Docusate Sodium (Docusate Sodium 100 Mg Capsule) 100 mg PO DAILY PRN PRN Reason: Constipation Enoxaparin Sodium (Enoxaparin Sodium 40 Mg/0.4 Ml Syringe) 40 mg SUBCUT Q24H [facility] Last Admin: 04/09/22 06:37 Dose: 40 mg Documented By: YANG Fluoxetine HCl (Fluoxetine Hcl 20 Mg Capsule) 60 mg PO DAILY [facility] Last Admin: 04/09/22 07:45 Dose: 60 mg Documented By: JESUSITA Gabapentin (Gabapentin 600 Mg Tablet) 600 mg PO TID [facility] Last Admin: 04/09/22 07:45 Dose: 600 mg Documented By: JESUSITA Glucose (Glucose Gel 15 Gm Gel..Gram.) 15 gm PO Q15M PRN; Protocol PRN Reason: per Hypoglycemia Standing Ord. Insulin Glargine (Insulin Glargine,Hum.Rec.Anlog 100 Unit/Ml 10 Ml Vial) 28 unit SUBCUT DAILY [facility] Last Admin: 04/09/22 07:46 Dose: 28 unit Documented By: JESUSITA Insulin Human Lispro (Insulin Lispro 100 Unit/Ml 3 Ml Vial) 0 unit SUBCUT QIDACHS [facility]; Protocol Last Admin: 04/09/22 12:17 Dose: 6 unit Documented By: JESUSITA Levothyroxine Sodium (Levothyroxine Sodium 75 Mcg Tablet) 75 mcg PO DAILY@0600 [facility] Last Admin: 04/09/22 06:37 Dose: 75 mcg Documented By: YANG Levothyroxine Sodium (Levothyroxine Sodium 200 Mcg Tablet) 200 mcg PO DAILY@0600 [facility] Last Admin: 04/09/22 06:37 Dose: 200 mcg Documented By: YANG Loratadine (Loratadine 10 Mg Tablet) 10 mg PO DAILY [facility] Last Admin: 04/09/22 07:45 Dose: 10 mg Documented By: JESUSITA Omeprazole (Omeprazole 20 Mg Capsule.Dr) 20 mg PO BID@0630,1630 [facility] Last Admin: 04/09/22 06:37 Dose: 20 mg Documented By: YANG Ondansetron HCl (Ondansetron Hcl 4 Mg/2 Ml Vial) 4 mg IVPUSH Q8H PRN PRN Reason: Nausea and Vomiting Pharmacy Consult (Consult Rx Perform Med Rec) 1 each MISCELLANE ONCE PRN PRN Reason: Consult order Sodium Chloride (0.9 % Sodium Chloride Flush 3 Ml Syringe) 3 ml IVFLUSH QSHIFT [facility] Last Admin: 04/09/22 07:44 Dose: 3 ml Documented By: JESUSITA Trazodone HCl (Trazodone Hcl 100 Mg Tablet) 200 mg PO BEDTIME [facility] Last Admin: 04/08/22 20:44 Dose: 200 mg Documented By: YANG Labs CBC & Chem 7: 04/08/22 07:16 04/09/22 08:06 Labs: Laboratory Results - last 24 hr 11/05/22 11/05/22 11/06/22 16:22 20:11 07:21 Anion Gap Estim Creat Clear Calc Estimated GFR POC Glucose 291 H 309 H 256 H Random Glucose Calcium C-Reactive Protein 04/09/22 04/09/22 08:06 11:08 Anion Gap 15 Estim Creat Clear Calc 71.7 Estimated GFR 36 POC Glucose 298 H Random Glucose 296 H Calcium 8.5 C-Reactive Protein 2.00 H Microbiology Microbiology Results: Microbiology 04/06/22 21:12 Blood Culture - Preliminary Blood - Venous No growth after 48 hours. 04/06/22 21:12 Blood Culture - Preliminary Blood - Venous No growth after 48 hours. 04/06/22 21:04 Urine Culture - Final Urine clean catch - Urine quevedo top No growth. Assessment and Plan (1) Acute hypoxemic respiratory failure due to COVID-19: Status: Acute Plan 51-year-old female with past medical history of hypertension, diabetes, hyperlipidemia, significant morbid obesity, who was initially stat under case management under ED this incision observation from 01/10-04/05, she was sent to [facility] LTAC but returns with hypoxic respiratory failure acute on chronic hypoxic respiratory failure secondary to COVID-19 down to 1.5L at present, wean as tolerated continue IV decadron seen by ID - pt declined remdicivir has elevated D-dimer of 800, VQ negative for PE follow inflammatory markers, ferritin 39, ldh 207, crp 6.60- down to 2.0 wean oxygen as tolerated UTI ruled out Urine culture negative Will DC antibiotics chronic left fisher wound present on admission continue local wound care CKD3 creatinine appears to be within baseline follow BMP morbid obesity BMI 62.5 T2DM with hyperglycemia SSI, Diabetic diet continue home insulin HTN bp elevated, likely due to steroids will increase norvasc if continues to be high continue baseline meds mood disorder continue home medications hypothyroidism continue levothyroxine HLD continue statin OUD continue suboxone DVT prophylaxis: Lovenox Attending - dr. Garcias Dispo - plan to return to [facility] when medically ready, unable to return over the weekend due to staffing Requires ongoing inpatient hospitalization due to respiratory failure/need for supplemental oxygen Quality Stroke Does the patient have a stroke diagnosis?: No VTE Prior VTE?: No VTE Risk Level:: Medical - moderate - high VTE Device Contraindication: Treatment Not Indicated VTE Drug Contraindication: N/A - Med Ordered
[2022-04-09 15:06] VITALS: BP 164/82; PULSE 59; RESP 12; TEMP 36.2; O2SAT 92
[2022-04-09 16:43] LABS: Glucose, Whole Blood 362 mg/dL (60-115)
[2022-04-09 20:00] VITALS: BP 189/93; PULSE 47; RESP 14; TEMP 35.7; O2SAT 99
[2022-04-09 20:54] LABS: Glucose, Whole Blood 399 mg/dL (60-115)
[2022-04-09] MEDS: traZODone HCL 100 MG TABLET 200 MG PO (20:56)
[2022-04-09] MEDS: Atorvastatin Calcium 80 MG TABLET PO (20:56)
[2022-04-10 00:40] VITALS: BP 168/82; PULSE 54; RESP 18; TEMP 35.8; O2SAT 98
[2022-04-10 04:00] VITALS: BP 169/81; PULSE 47; RESP 18; TEMP 36.1; O2SAT 99
[2022-04-10] MEDS: Levothyroxine Sodium 200 MCG TABLET PO (05:54)
[2022-04-10] MEDS: Levothyroxine Sodium 75 MCG TABLET PO (05:54)
[2022-04-10] MEDS: Omeprazole 20 MG CAPSULE.DR PO (05:54)
[2022-04-10] MEDS: Enoxaparin Sodium 40 MG/0.4 ML SYRINGE SUBCUT (05:54)
[2022-04-10 08:00] VITALS: BP 174/88; PULSE 60; RESP 19; TEMP 36; O2SAT 98
[2022-04-10 08:05] LABS: Glucose, Whole Blood 276 mg/dL (60-115)
[2022-04-10] MEDS: Loratadine 10 MG TABLET PO (09:19)
[2022-04-10] MEDS: FLUoxetine HCl 20 MG CAPSULE 60 MG PO (09:19)
[2022-04-10] MEDS: Aspirin Enteric Coated 81 MG TABLET.DR PO (09:19)
[2022-04-10] MEDS: Gabapentin 600 MG TABLET PO (09:20)
[2022-04-10] MEDS: amLODIPine Besylate 5 MG TABLET PO (09:20)
[2022-04-10] MEDS: Insulin Lispro 100 UNIT/ML 3 ML VIAL SUBCUT ×2 (09:20→12:53)
[2022-04-10] MEDS: Buprenorphine/Naloxone 8/2 mg FILM 1 FILM BUCCAL (09:20)
[2022-04-10] MEDS: clonazePAM 0.5 MG TABLET PO (09:20)
[2022-04-10] MEDS: Insulin Glargine,Hum.rec.anlog 100 UNIT/ML 10 ML VIAL 28 UNIT SUBCUT (09:21)
[2022-04-10] MEDS: 0.9 % Sodium Chloride Flush 3 ML SYRINGE IVFLUSH (09:22)
--- NOTE | 2022-04-10 10:06 | P.DS_ITS ---
DS: Providers Provider Date of Service: 04/10/22 Date of admission: 04/07/22 05:49 Primary care physician: Unknown Physician Consults: 04/07/22 06:08 Consult to Infectious Diseases Routine Consulting Provider: Cindy Rodriguez Reason for consultation: Remdesivir? Has provider been notified: No Attending physician on discharge: Miguel Dolan Discharging clinician: Ashleigh Romero DS: Diagnosis Discharge Diagnosis (1) Acute hypoxemic respiratory failure due to COVID-19: Status: Acute DS: Summary Hospital Course Hospital Course: History and physical as per admitting provider This is a 51-year-old female with past medical history of hypertension, diabetes, hypothyroidism, morbid obesity who presents to the hospital with hypoxia.? Of note patient was in the emergency room under case management for placement since 01/23, she was discharged on 04/05 to [facility] for possible bariatric surgery as well as placement but returns with hypoxia.? Patient reports feeling feverish, she is very frustrated and says she does not know what happened.? She reports pleuritic midsternal chest pain worse with taking deep breaths on moving, she has nausea, 1 episode of vomiting, no diarrhea constipation, no urinary symptoms and no lower extremity edema. She was at [facility] for LTAC and possible beriatric evaluation. On arrival to the ED patient was found to be 86% on room air, vitals otherwise stable Labs are significant for baseline hemoglobin of 8.9, hematocrit 30, pH of 7.32, creatinine of 1.63 which is around her baseline, lactic acid of 0.4, UA positive for leukocyte Estrace and WBC, COVID-19 positive. Chest x-ray shows possible pulmonary venous congestion, BNP is 35 . acute on chronic hypoxic respiratory failure secondary to COVID-19 (04/07/22) down to 1.5L at present, wean as tolerated? Treated with IV Decadron, transition to oral Decadron, last dose 04-16-22 seen by ID - pt declined remdicivir has elevated D-dimer of 800, VQ negative for PE chronic left fisher wound present on admission continue local wound care CKD3 creatinine appears to be within baseline T2DM with hyperglycemia Treated with SSI, Diabetic diet Continue regularly scheduled medications HTN with elevated blood pressure readings Likely secondary to steroids Norvasc increased mood disorder continue home medications hypothyroidism continue levothyroxine HLD continue statin OUD continue suboxone Morbid obesity. BMI 62.8 Discussed importance of weight management, patient plans to have outpatient gastric bypass in the near future Time Spent with Patient Time attestation: Total time spent providing and/or coordinating discharge services: Discharge coordination time: Greater than 30 minutes Quality: Safe Use of Opioids Does Pt have an Active Cancer Diagnosis on the Problem List?: No Quality: Stroke Does the patient have a stroke diagnosis?: No Physical Exam Vital Signs: Vital Signs: Last Vital Signs Temp 96.8 F 04/10/22 08:00 Pulse 60 04/10/22 08:00 Resp 19 04/10/22 08:00 BP 174/88 H 04/10/22 08:00 Pulse Ox 98 04/10/22 08:00 O2 Del Method 04/10/22 08:00 O2 Flow Rate 1.5 04/10/22 08:00 BMI result Body Mass Index 62.8 Appearing in no acute distress head is normocephalic atraumatic eyes pupils are PERRLA sclera is anicteric mouth throat mucous membranes are intact and moist neck is supple no lymphadenopathy, no JVD noted lung sounds are clear to auscultation heart regular rate rhythm, clear S1, S2 positive bowel sounds, abdomen is soft, nontender neuro patient is alert x3, no focal deficits DS: Data Data Completed and Pending Completed studies during hospitalization [Text1]: Procedures Assistance with Respiratory Ventilation, Less than 24 Consecutive Hours, Continuous Positive Airway Pressure (08/19/21) Dilation of Right Ureter with Intraluminal Device, Via Natural or Artificial Opening Endoscopic (08/13/21) Fluoroscopy of Right Kidney, Ureter and Bladder (08/13/21) Transfusion of Nonautologous Red Blood Cells into Peripheral Vein, Percutaneous Approach (11/12/21) Labs on day of discharge: Laboratory Results - last 24 hr 04/09/22 04/09/22 04/09/22 11:08 16:28 20:38 POC Glucose 298 H 362 H* 399 H* 04/10/22 07:55 POC Glucose 276 H Preliminary micro results at discharge 04/06/22 21:12 Blood Culture - Preliminary Blood - Venous No growth after 48 hours. 04/06/22 21:12 Blood Culture - Preliminary Blood - Venous No growth after 48 hours. Discharge Plan Discharge Anticipated Discharge Date/Time: 04/10/22 09:58 Patient Disposition: Xfer Other Discharge Diagnosis: Covid 19 Referrals: Physician,Unknown J [Primary Care Provider] - 1 Week Discharge Medications: New dexamethasone 6 mg tablet 6 mg PO DAILY Qty: 6 0RF Continued amlodipine [Norvasc] 5 mg tablet 5 mg PO DAILY Qty: 30 0RF atorvastatin 80 mg tablet 80 mg PO BEDTIME Qty: 30 0RF clonazepam [Klonopin] 0.5 mg tablet 0.5 mg PO DAILY Qty: 30 0RF gabapentin 600 mg tablet 600 mg PO TID Qty: 120 0RF fluoxetine [Prozac] 20 mg capsule 60 mg PO DAILY Qty: 90 0RF insulin glargine 100 unit/mL solution 28 unit subcut DAILY Qty: 10 0RF insulin lispro 100 unit/mL solution 1 sliding scale dose subcut USEASDIRECTD Qty: 10 0RF Rx Instructions: Glucose 151-200 - give 2 units Glucose 201-250 - give 4 units Glucose 251-300 - give 6 units Glucose 301-350 - give 8 units >350 - give 10 units loratadine [Claritin] 10 mg tablet 10 mg PO DAILY Qty: 30 0RF trazodone 100 mg tablet 200 mg PO BEDTIME Qty: 30 0RF levothyroxine 75 mcg tablet 1 tab PO DAILY@0600 levothyroxine [Synthroid] 200 mcg tablet 200 mcg PO DAILY@0600 buprenorphine-naloxone [Suboxone] 8-2 mg Film 1 film BUCCAL TID aspirin 81 mg tablet,delayed release (DR/EC) 1 tab PO DAILY omeprazole 20 mg capsule,delayed release(DR/EC) 1 cap PO BID@0630,1630 albuterol sulfate [ProAir HFA] 90 mcg/actuation HFA aerosol inhaler 2 puff PO Q4H PRN (Reason: wheezing) lidocaine [Lidocaine Pain Relief] 4 % Adhesive Patch,Medicated 1 patch transdermal DAILY Qty: 30 0RF Protocol: Apply to: Apply to: left knee docusate sodium [Colace] 100 mg capsule 100 mg PO DAILY PRN (Reason: constipation) Qty: 30 0RF (DME) pen needle, diabetic [UltiCare Pen Needle] 31 gauge x 5/16 needle See Rx Instructions subcut .MEDSUPPLY Qty: 1200 Rx Instructions: As directed (DME) FreeStyle Lite Strips Strip See Rx Instructions Not Applicable QID Qty: 10 Rx Instructions: As directed Discharge Orders: Discharge Order (Routine); Ordered 04/10/22 Ordered By: Ashleigh Romero Diet: Advance to usual diet Activity on Discharge: As tolerated Stand Alone Forms: Patient Portal Discharge page Care Plan Goals: Complete resolution of symptoms Health Concerns: COVID-19 Acute hypoxic respiratory failure Plan of Treatment: Transfer back to [facility] take all medications as prescribed Assessment: See discharge summary
--- NOTE | 2022-04-10 10:21 | MHC.CM.PN ---
DP:PT MEDICALLY CLEARED FOR DC BACK TO [facility] FOR LTC. RN AWARE. BLS BARIATRIC TRANSPORT SET UP FOR 2 PM WITH [facility].
[2022-04-10 11:42] VITALS: BP 157/81; PULSE 50; RESP 20; TEMP 35.9; O2SAT 95
[2022-04-10 12:34] LABS: Glucose, Whole Blood 312 mg/dL (60-115)
[2022-04-10 14:57] LABS: Glucose, Whole Blood 316 mg/dL (60-115)
== END 2022-04-10 14:57 | disposition other institution (70) | DRG 137 ==
LOC: HO.ED 04-07 05:24 → HO.EDOVER 04-07 05:56 → HO.IMC 04-07 19:37
PROVIDERS: Emergency Medicine; Physician Assistant Medical; Admitting Provider Internal Medicine; Emergency Provider Internal Medicine; Visit Provider Nurse Practitioner Acute Care
DX: U07.1 COVID-19 (principal); J96.21 Acute and chronic respiratory failure with hypoxia; E11.22 Type 2 diabetes mellitus with diabetic chronic kidney disease; Z68.44 Body mass index [BMI] 60.0-69.9, adult; E03.9 Hypothyroidism, unspecified; E66.01 Morbid (severe) obesity due to excess calories; F39 Unspecified mood [affective] disorder; R33.9 Retention of urine, unspecified; I12.9 Hypertensive chronic kidney disease with stage 1 through stage 4 chronic kidney disease, or unspecified chronic kidney disease; N18.30 Chronic kidney disease, stage 3 unspecified; N28.9 Disorder of kidney and ureter, unspecified; F11.20 Opioid dependence, uncomplicated; L97.821 Non-pressure chronic ulcer of other part of left lower leg limited to breakdown of skin; Z87.891 Personal history of nicotine dependence; Z91.040 Latex allergy status; Z88.0 Allergy status to penicillin; Z88.8 Allergy status to other drugs, medicaments and biological substances; Z79.4 Long term (current) use of insulin; Z79.890 Hormone replacement therapy; Z79.82 Long term (current) use of aspirin; Z79.899 Other long term (current) drug therapy
CPT/HCPCS: 36415; 71045; 71250; 78580; 80048; 80076; 80307; 81001; 82728; 82803; 82947; 83605; 83615; 83880; 84484; 85025; 85027; 85379; 85610; 85730; 86140; 87040; 87086; 87635; 93005; 99285; A9540; C1758; J0696; J1100; J1650

== ENCOUNTER 2022-05-26 16:01 | Emergency (ER) | payer MEDICAID, SELFPAY ==
--- NOTE | ~2022-05-26 | XR_ITS ---
EXAMINATION: XR CHEST CLINICAL INFORMATION: Lethargy. COMPARISON: Comparison is made to 04/06/2022. TECHNIQUE: Frontal view of the chest was obtained. FINDINGS: Kyphotic positioning and low lung volumes limit evaluation. Increased pulmonary vascular markings are seen with increased interstitial markings as well. The heart is mildly enlarged. The mediastinal structures are unremarkable. XR/XR chest 1V IMPRESSION: Cardiomegaly findings are nonspecific given the low lung volumes. A component of this is likely secondary to vascular crowding however mild congestion cannot be excluded. An infectious/inflammatory process would be less likely. Short-term radiographic follow-up is recommended as clinically indicated to assess for more short-term change.
[2022-05-26 16:16] VITALS: BP 138/71; O2SAT 94
[2022-05-26 16:21] VITALS: BP 145/80; PULSE 91; RESP 14; TEMP 36.7; O2SAT 98; BMI 66.0
--- NOTE | 2022-05-26 16:26 | ECG_ITS ---
Test Reason : CASTRON Blood Pressure : / mmHG Vent. Rate : 084 BPM Atrial Rate : 084 BPM P-R Int : 170 ms QRS Dur : 090 ms QT Int : 376 ms P-R-T Axes : 028 -10 025 degrees QTc Int : 444 ms Normal sinus rhythm Cannot rule out Anterior infarct , age undetermined Abnormal ECG When compared with ECG of 06-APR-2022 21:23, No significant change was found Referred By: Irving Velasquez Electronically Signed By:Jamal Victoria
--- NOTE | 2022-05-26 16:29 | ED.GENADULT ---
HPI - General Adult General Chief complaint: General Medical Stated complaint: Lethargy Time Seen by Provider: 05/26/22 16:14 Source: patient and EMS History of Present Illness HPI narrative: Per [facility] where patient is currently residing, she has been lethargic for the past 3 days. They tested her urine tox which was positive apparently for fentanyl. They believe visitors have been bringing her fentanyl. Patient states that is not true and believes it is because she is on clonazepam. No recent changes to clonazepam dosing, however, and she has been on it chronically. She denies other acute medical issues such as fevers chills, shortness of breath, new cough, nausea, vomiting, diarrhea. She has a history of respiratory failure, hypercarbic. Her most recent admission was for respiratory failure secondary to COVID-19 in April, last month. She has been on oxygen ever since. She has been using BiPAP at night ever since. Related Data Home Medications Medication Instructions Recorded Confirmed albuterol sulfate 90 mcg/actuation 2 puff PO Q4H PRN wheezing 08/13/21 04/07/22 aerosol inhaler (ProAir HFA) aspirin 81 mg tablet,delayed 1 tab PO DAILY 08/13/21 04/07/22 release omeprazole 20 mg capsule,delayed 1 cap PO BID@0630,1630 08/13/21 04/07/22 release blood sugar diagnostic (FreeStyle #10 ea 09/21/21 01/25/22 Lite Strips) pen needle, diabetic 31 gauge x #1,200 ea 09/21/21 01/25/22/16 (UltiCare Pen Needle) buprenorphine 8 mg-naloxone 2 mg 1 film buccal TID 04/07/22 04/07/22 sublingual film (Suboxone) levothyroxine 200 mcg tablet 200 mcg PO DAILY@0600 04/07/22 04/07/22 (Synthroid) levothyroxine 75 mcg tablet 1 tab PO DAILY@0600 04/07/22 04/07/22 Previous Rx's Medication Instructions Recorded lidocaine 4 % topical patch 1 patch transdermal DAILY #30 ea 11/22/21 (Lidocaine Pain Relief) docusate sodium 100 mg capsule 100 mg PO DAILY PRN constipation 01/10/22 (Colace) #30 caps amlodipine 5 mg tablet (Norvasc) 5 mg PO DAILY #30 tabs 03/24/22 atorvastatin 80 mg tablet 80 mg PO BEDTIME #30 tabs 03/24/22 clonazepam 0.5 mg tablet (Klonopin) 0.5 mg PO DAILY #30 tabs 03/24/22 fluoxetine 20 mg capsule (Prozac) 60 mg PO DAILY #90 caps 03/24/22 gabapentin 600 mg tablet 600 mg PO TID #120 tabs 03/24/22 insulin glargine 100 unit/mL 28 unit (0.28 mL) subcut DAILY #10 03/24/22 subcutaneous solution mL insulin lispro 100 unit/mL 1 sliding scale dose subcut 03/24/22 subcutaneous solution USEASDIRECTD #10 mL loratadine 10 mg tablet (Claritin) 10 mg PO DAILY #30 tabs 03/24/22 trazodone 100 mg tablet 200 mg PO BEDTIME #30 tabs 03/24/22 dexamethasone 6 mg tablet 6 mg PO DAILY #6 tabs 04/10/22 cephalexin 500 mg capsule 1,000 mg PO BID #14 caps 05/26/22 Allergies Allergy/AdvReac Type Severity Reaction Status Date / Time canagliflozin [From Invokana] Allergy Rash Verified 03/23/22 10:31 latex Allergy Itching Verified 03/23/22 10:31 metformin Allergy Hives Verified 03/23/22 10:31 Penicillins Allergy Rash Verified 03/23/22 10:31 sitagliptin [From Januvia] Allergy Rash Verified 03/23/22 10:31 Review of Systems Constitutional: Comments: Denies fevers chills Cardiovascular: Comments: Denies chest pain Respiratory: Comments: Denies new or increased dyspnea Gastrointestinal: Comments: No nausea vomiting diarrhea constipation or abdominal pain Genitourinary: Comments: No urinary symptoms Musculoskeletal: Comments: No change to chronic bilateral pedal edema Integumentary/Breasts: Comments: No change to chronic bilateral lower extremity venous stasis changes Neurologic: Comments: No focal weakness PMFSH Past Medical History Medical History Bilateral edema of lower extremity Choledocholithiasis Chronic respiratory failure with hypoxia DMII (diabetes mellitus, type 2) High cholesterol HTN (hypertension) Hydronephrosis of right kidney Hydroureteronephrosis Hypothyroid Kidney stones Morbid obesity Morbid obesity Normocytic anemia Pyelonephritis Pyelonephritis UTI (urinary tract infection) Surgical History No pertinent past surgical history Family History Family History Mother Coronary artery disease Diabetes Social History Social History Household Members: Significant Other Household Members Other:: 2 Housing: Apartment Do you presently have visiting nurse or other home services: No Alcohol intake: former Patient Tobacco Use Status: Former Tobacco user Tobacco use type: Cigarette Cigarettes Per Day: 5 Years Smoked: 41 Smoked in Last 30 Days: No Second Hand Smoke Exposure: No Use of substances other than those prescribed or required for medical reasons: No Substance Use Type: Former Substance User Advance Directives: Yes Advance Directives on File: Yes Advance Directives Date on File: 01/25/22 service: No Current occupational status: unemployed Physical Exam ED Vital Signs: Vital Signs - 24 hr 05/26/22 16:21 05/26/22 19:31 05/26/22 19:35 Temperature 98.0 F 98.4 F Pulse Rate 91 84 Respiratory Rate 14 15 15 Blood Pressure 145/80 H 138/74 Pulse Oximetry 98 94 Oxygen Delivery Method Nasal Cannula Room Air 05/26/22 21:45 Temperature 98.2 F Pulse Rate 84 Respiratory Rate 12 Blood Pressure 130/72 Pulse Oximetry 95 Oxygen Delivery Method BiPAP BMI result Body Mass Index 66.0 Const Other: In the emergency department she is awake alert and in no acute distress. No lethargy noted Resp Other: Clear and equal bilaterally but diminished Cardio Other: Regular rate and rhythm without murmurs rubs or gallops GI Other: Soft nontender nondistended Skin Other: Warm pink and dry without acute rash. fpc venous stasis changes bilateral lower extremities. No significant erythema, warmth, wounds, discharge, fluctuance. Neuro Other: Oriented x3. No focal neurologic deficits noted Extrem Other: Severe, chronic appearing, bilateral pedal edema. Apparently improved over prior visit Course Course Course Narrative: 22:17. Patient is improved with BiPAP. Workup in the department shows hemoglobin of 7.7 which is slightly lower than baseline but otherwise normal. Chemistries show creatinine of 1.4 with glucose of 174. No significant abnormalities Urinalysis shows greater than 50 white cells with large bacteria. This could potentially be the cause of her lethargy in addition to the fentanyl found by the [facility]. Her 1st venous gas today showed a pH of 7.3 an on a bicarb of 29. After several hours on BiPAP, she has improved with a pH of 7.33 and a bicarb down to 26. She is much more alert here in the emergency department. Will try to wean her off the BiPAP and reassess for recurrent lethargy. If she remains non lethargic, we will discharge her back to [facility]. 23:58. Patient has improved considerably. She is off BiPAP and still awake alert and oriented. Stable for discharge back to [facility]. Final diagnosis lethargy, secondary to UTI and opioid use Medications Administered Discontinued Medications Generic Name Dose Route Start Last Admin Trade Name Freq PRN Reason Stop Dose Admin Ceftriaxone Sodium 1 gm/ 50 mls @ 100 mls/hr 05/26/22 17:55 05/26/22 18:30 Sodium Chloride IV 05/26/22 18:24 100 mls/hr ONCE ONE Administration Medical Decision Making Medical Decision Making MDM Narrative: Patient with recent lethargy and apparently positive sentinel tox screen. It is unknown at this time if there other positives in the tox screen such is opiates. It is also unknown if it fentanyl was confirmed as a true positive. Patient denies using fentanyl. There are multiple possible etiologies for lethargy in this patient. Will test for potential other metabolic causes and repeat tox screen here in the emergency department. Lab Data Result Diagrams: 05/26/22 17:20 05/26/22 17:20 Labs: Lab Results 05/26/22 05/26/22 05/26/22 Range/Units 16:30 16:30 16:30 WBC (4.8-10.8) X10*3/uL RBC (4.20-5.50) X10*6/uL Hgb (12.0-16.0) g/dl Hct (37.0-47.0) % MCV (80.0-98.0) fL MCH (27.0-33.0) pg MCHC (31.0-35.0) g/dl RDW (11.0-16.0) % Plt Count (160-400) X10*3/uL MPV (9.4-12.3) fL Immature Gran % (Auto) (0.0-0.4) % Neut % (Auto) (45-73) % Lymph % (Auto) (20-40) % [place] % (Auto) (2-11) % Eos % (Auto) (0-4) % Baso % (Auto) (0-2) % Lymph # (Auto) (1.2-4.9) X10*3/uL [place] # (Auto) (0.1-1.2) X10*3/uL Eos # (Auto) (0.0-0.4) X10*3/uL Baso # (Auto) (0.0-0.2) X10*3/uL Abs Immat Gran (auto) (0.00-0.03) X10*3/uL Absolute Neuts (auto) (2.0-8.3) x10*3/uL Absolute Nucleated RBC (0.0-0.012) X10*3/uL Nucleated RBC % (auto) (0.0-0.2) /100WBC PT (10.0-13.1) SEC INR (0.9-1.1) D-Dimer High Sensitivty NG/ML VBG pH (7.32-7.43) VBG pCO2 mmHg VBG pO2 mmHg VBG HCO3 (22-26) mmol/L VBG O2 Saturation % VBG Base Excess mmol/L Sodium (135-145) mmol/L Potassium (3.3-5.1) mmol/L Chloride (96-108) mmol/L Carbon Dioxide (22-29) mmol/L Anion Gap (12-20) BUN (9-16) mg/dL Creatinine (0.5-1.4) mg/dL Estim Creat Clear Calc Estimated GFR POC Glucose (60-115) mg/dL Random Glucose (60-115) mg/dL Lactic Acid (0.5-2.0) mmol/L Calcium (8.4-10.2) mg/dL Total Bilirubin (0.0-1.0) mg/dL AST (5-31) U/L ALT (0-31) U/L Alkaline Phosphatase (39-117) U/L Ammonia (13-55) umol/L Troponin I High Sens (<3.5-17.0) ng/L Total Protein (6.5-8.0) g/dL Albumin (3.5-5.0) g/dL TSH (0.32-4.0) uIU/mL Free T4 (0.71-1.85) ng/dL Urine Color Yellow Urine Appearance Turbid Urine pH 6.0 (5.0-9.0) Ur Specific [place] 1.015 (1.005-1.025) Urine Protein 100 (2+) H (Neg-Trace) mg/dL Urine Glucose (UA) Negative (Negative) mg/dL Urine Ketones Negative (Negative) mg/dL Urine Blood Large (3+) H (Negative) Urine Nitrite Negative (Negative) Ur Leukocyte Esterase Large (3+) H (Negative) Urine RBC >20 H (0-2) /HPF Urine WBC >50 H (0-5) /HPF Ur Squamous Epith Cells 6-10 (0-2) /HPF Urine Bacteria 4+ (None Seen) Hyaline Casts 3-5 (0-2) /LPF Urine Opiates Screen Not Detected (Not Detect) Urine Fentanyl Screen POSITIVE H (Not Detect) Ur Barbiturates Screen Not Detected (Not Detect) Ur Phencyclidine Scrn Not Detected (Not Detect) Ur Amphetamines Screen Not Detected (Not Detect) U Benzodiazepines Scrn Not Detected (Not Detect) Urine Cocaine Screen Not Detected (Not Detect) U Marijuana (THC) Screen Not Detected (Not Detect) Ethyl Alcohol mg/dL Influenza Type A (PCR) (Negative) Influenza Type B (PCR) (Negative) RSV RNA Qual (PCR) (Negative) SARS-CoV-2 RNA (RT-PCR) (Negative) Ref Lab Test Result Cancelled 05/26/22 05/26/22 05/26/22 Range/Units 17:20 17:20 17:20 WBC 7.1 (4.8-10.8) X10*3/uL RBC 3.05 L (4.20-5.50) X10*6/uL Hgb 7.7 L (12.0-16.0) g/dl Hct 26.6 L (37.0-47.0) % MCV 87.2 (80.0-98.0) fL MCH 25.2 L (27.0-33.0) pg MCHC 28.9 L (31.0-35.0) g/dl RDW 19.9 H (11.0-16.0) % Plt Count 249 D (160-400) X10*3/uL MPV 9.4 (9.4-12.3) fL Immature Gran % (Auto) 1.4 H (0.0-0.4) % Neut % (Auto) 53.6 (45-73) % Lymph % (Auto) 31.5 (20-40) % [place] % (Auto) 12.3 H (2-11) % Eos % (Auto) 0.4 (0-4) % Baso % (Auto) 0.8 (0-2) % Lymph # (Auto) 2.2 (1.2-4.9) X10*3/uL [place] # (Auto) 0.9 (0.1-1.2) X10*3/uL Eos # (Auto) 0.0 (0.0-0.4) X10*3/uL Baso # (Auto) 0.1 (0.0-0.2) X10*3/uL Abs Immat Gran (auto) 0.10 H (0.00-0.03) X10*3/uL Absolute Neuts (auto) 3.8 (2.0-8.3) x10*3/uL Absolute Nucleated RBC 0.000 (0.0-0.012) X10*3/uL Nucleated RBC % (auto) 0.0 (0.0-0.2) /100WBC PT 10.5 (10.0-13.1) SEC INR 0.9 (0.9-1.1) D-Dimer High Sensitivty 1012 NG/ML VBG pH (7.32-7.43) VBG pCO2 mmHg VBG pO2 mmHg VBG HCO3 (22-26) mmol/L VBG O2 Saturation % VBG Base Excess mmol/L Sodium 142 (135-145) mmol/L Potassium 4.6 (3.3-5.1) mmol/L Chloride 109 H (96-108) mmol/L Carbon Dioxide 28 (22-29) mmol/L Anion Gap 10 L (12-20) BUN 20 H (9-16) mg/dL Creatinine 1.40 (0.5-1.4) mg/dL Estim Creat Clear Calc 79.6 Estimated GFR 40 POC Glucose (60-115) mg/dL Random Glucose 174 H (60-115) mg/dL Lactic Acid (0.5-2.0) mmol/L Calcium 8.4 (8.4-10.2) mg/dL Total Bilirubin 0.2 (0.0-1.0) mg/dL AST 12 (5-31) U/L ALT 10 (0-31) U/L Alkaline Phosphatase 162 H (39-117) U/L Ammonia (13-55) umol/L Troponin I High Sens (<3.5-17.0) ng/L Total Protein 6.6 (6.5-8.0) g/dL Albumin 2.6 L (3.5-5.0) g/dL TSH (0.32-4.0) uIU/mL Free T4 (0.71-1.85) ng/dL Urine Color Urine Appearance Urine pH (5.0-9.0) Ur Specific [place] (1.005-1.025) Urine Protein (Neg-Trace) mg/dL Urine Glucose (UA) (Negative) mg/dL Urine Ketones (Negative) mg/dL Urine Blood (Negative) Urine Nitrite (Negative) Ur Leukocyte Esterase (Negative) Urine RBC (0-2) /HPF Urine WBC (0-5) /HPF Ur Squamous Epith Cells (0-2) /HPF Urine Bacteria (None Seen) Hyaline Casts (0-2) /LPF Urine Opiates Screen (Not Detect) Urine Fentanyl Screen (Not Detect) Ur Barbiturates Screen (Not Detect) Ur Phencyclidine Scrn (Not Detect) Ur Amphetamines Screen (Not Detect) U Benzodiazepines Scrn (Not Detect) Urine Cocaine Screen (Not Detect) U Marijuana (THC) Screen (Not Detect) Ethyl Alcohol mg/dL Influenza Type A (PCR) (Negative) Influenza Type B (PCR) (Negative) RSV RNA Qual (PCR) (Negative) SARS-CoV-2 RNA (RT-PCR) (Negative) Ref Lab Test Result 05/26/22 05/26/22 05/26/22 Range/Units 17:20 17:20 17:20 WBC (4.8-10.8) X10*3/uL RBC (4.20-5.50) X10*6/uL Hgb (12.0-16.0) g/dl Hct (37.0-47.0) % MCV (80.0-98.0) fL MCH (27.0-33.0) pg MCHC (31.0-35.0) g/dl RDW (11.0-16.0) % Plt Count (160-400) X10*3/uL MPV (9.4-12.3) fL Immature Gran % (Auto) (0.0-0.4) % Neut % (Auto) (45-73) % Lymph % (Auto) (20-40) % [place] % (Auto) (2-11) % Eos % (Auto) (0-4) % Baso % (Auto) (0-2) % Lymph # (Auto) (1.2-4.9) X10*3/uL [place] # (Auto) (0.1-1.2) X10*3/uL Eos # (Auto) (0.0-0.4) X10*3/uL Baso # (Auto) (0.0-0.2) X10*3/uL Abs Immat Gran (auto) (0.00-0.03) X10*3/uL Absolute Neuts (auto) (2.0-8.3) x10*3/uL Absolute Nucleated RBC (0.0-0.012) X10*3/uL Nucleated RBC % (auto) (0.0-0.2) /100WBC PT (10.0-13.1) SEC INR (0.9-1.1) D-Dimer High Sensitivty NG/ML VBG pH (7.32-7.43) VBG pCO2 mmHg VBG pO2 mmHg VBG HCO3 (22-26) mmol/L VBG O2 Saturation % VBG Base Excess mmol/L Sodium (135-145) mmol/L Potassium (3.3-5.1) mmol/L Chloride (96-108) mmol/L Carbon Dioxide (22-29) mmol/L Anion Gap (12-20) BUN (9-16) mg/dL Creatinine (0.5-1.4) mg/dL Estim Creat Clear Calc Estimated GFR POC Glucose (60-115) mg/dL Random Glucose (60-115) mg/dL Lactic Acid 0.6 (0.5-2.0) mmol/L Calcium (8.4-10.2) mg/dL Total Bilirubin (0.0-1.0) mg/dL AST (5-31) U/L ALT (0-31) U/L Alkaline Phosphatase (39-117) U/L Ammonia 27 (13-55) umol/L Troponin I High Sens < 3.5 (<3.5-17.0) ng/L Total Protein (6.5-8.0) g/dL Albumin (3.5-5.0) g/dL TSH (0.32-4.0) uIU/mL Free T4 (0.71-1.85) ng/dL Urine Color Urine Appearance Urine pH (5.0-9.0) Ur Specific [place] (1.005-1.025) Urine Protein (Neg-Trace) mg/dL Urine Glucose (UA) (Negative) mg/dL Urine Ketones (Negative) mg/dL Urine Blood (Negative) Urine Nitrite (Negative) Ur Leukocyte Esterase (Negative) Urine RBC (0-2) /HPF Urine WBC (0-5) /HPF Ur Squamous Epith Cells (0-2) /HPF Urine Bacteria (None Seen) Hyaline Casts (0-2) /LPF Urine Opiates Screen (Not Detect) Urine Fentanyl Screen (Not Detect) Ur Barbiturates Screen (Not Detect) Ur Phencyclidine Scrn (Not Detect) Ur Amphetamines Screen (Not Detect) U Benzodiazepines Scrn (Not Detect) Urine Cocaine Screen (Not Detect) U Marijuana (THC) Screen (Not Detect) Ethyl Alcohol mg/dL Influenza Type A (PCR) (Negative) Influenza Type B (PCR) (Negative) RSV RNA Qual (PCR) (Negative) SARS-CoV-2 RNA (RT-PCR) (Negative) Ref Lab Test Result 05/26/22 05/26/22 05/26/22 Range/Units 17:20 17:25 17:31 WBC (4.8-10.8) X10*3/uL RBC (4.20-5.50) X10*6/uL Hgb (12.0-16.0) g/dl Hct (37.0-47.0) % MCV (80.0-98.0) fL MCH (27.0-33.0) pg MCHC (31.0-35.0) g/dl RDW (11.0-16.0) % Plt Count (160-400) X10*3/uL MPV (9.4-12.3) fL Immature Gran % (Auto) (0.0-0.4) % Neut % (Auto) (45-73) % Lymph % (Auto) (20-40) % [place] % (Auto) (2-11) % Eos % (Auto) (0-4) % Baso % (Auto) (0-2) % Lymph # (Auto) (1.2-4.9) X10*3/uL [place] # (Auto) (0.1-1.2) X10*3/uL Eos # (Auto) (0.0-0.4) X10*3/uL Baso # (Auto) (0.0-0.2) X10*3/uL Abs Immat Gran (auto) (0.00-0.03) X10*3/uL Absolute Neuts (auto) (2.0-8.3) x10*3/uL Absolute Nucleated RBC (0.0-0.012) X10*3/uL Nucleated RBC % (auto) (0.0-0.2) /100WBC PT (10.0-13.1) SEC INR (0.9-1.1) D-Dimer High Sensitivty NG/ML VBG pH 7.30 L (7.32-7.43) VBG pCO2 58 mmHg VBG pO2 54 mmHg VBG HCO3 29 H (22-26) mmol/L VBG O2 Saturation 83.0 % VBG Base Excess -0.4 mmol/L Sodium (135-145) mmol/L Potassium (3.3-5.1) mmol/L Chloride (96-108) mmol/L Carbon Dioxide (22-29) mmol/L Anion Gap (12-20) BUN (9-16) mg/dL Creatinine (0.5-1.4) mg/dL Estim Creat Clear Calc Estimated GFR POC Glucose (60-115) mg/dL Random Glucose (60-115) mg/dL Lactic Acid (0.5-2.0) mmol/L Calcium (8.4-10.2) mg/dL Total Bilirubin (0.0-1.0) mg/dL AST (5-31) U/L ALT (0-31) U/L Alkaline Phosphatase (39-117) U/L Ammonia (13-55) umol/L Troponin I High Sens (<3.5-17.0) ng/L Total Protein (6.5-8.0) g/dL Albumin (3.5-5.0) g/dL TSH 5.12 H (0.32-4.0) uIU/mL Free T4 1.20 (0.71-1.85) ng/dL Urine Color Urine Appearance Urine pH (5.0-9.0) Ur Specific [place] (1.005-1.025) Urine Protein (Neg-Trace) mg/dL Urine Glucose (UA) (Negative) mg/dL Urine Ketones (Negative) mg/dL Urine Blood (Negative) Urine Nitrite (Negative) Ur Leukocyte Esterase (Negative) Urine RBC (0-2) /HPF Urine WBC (0-5) /HPF Ur Squamous Epith Cells (0-2) /HPF Urine Bacteria (None Seen) Hyaline Casts (0-2) /LPF Urine Opiates Screen (Not Detect) Urine Fentanyl Screen (Not Detect) Ur Barbiturates Screen (Not Detect) Ur Phencyclidine Scrn (Not Detect) Ur Amphetamines Screen (Not Detect) U Benzodiazepines Scrn (Not Detect) Urine Cocaine Screen (Not Detect) U Marijuana (THC) Screen (Not Detect) Ethyl Alcohol < 10 mg/dL Influenza Type A (PCR) NEGATIVE (Negative) Influenza Type B (PCR) NEGATIVE (Negative) RSV RNA Qual (PCR) NEGATIVE (Negative) SARS-CoV-2 RNA (RT-PCR) NEGATIVE (Negative) Ref Lab Test Result 05/26/22 05/26/22 Range/Units 17:48 22:04 WBC (4.8-10.8) X10*3/uL RBC (4.20-5.50) X10*6/uL Hgb (12.0-16.0) g/dl Hct (37.0-47.0) % MCV (80.0-98.0) fL MCH (27.0-33.0) pg MCHC (31.0-35.0) g/dl RDW (11.0-16.0) % Plt Count (160-400) X10*3/uL MPV (9.4-12.3) fL Immature Gran % (Auto) (0.0-0.4) % Neut % (Auto) (45-73) % Lymph % (Auto) (20-40) % [place] % (Auto) (2-11) % Eos % (Auto) (0-4) % Baso % (Auto) (0-2) % Lymph # (Auto) (1.2-4.9) X10*3/uL [place] # (Auto) (0.1-1.2) X10*3/uL Eos # (Auto) (0.0-0.4) X10*3/uL Baso # (Auto) (0.0-0.2) X10*3/uL Abs Immat Gran (auto) (0.00-0.03) X10*3/uL Absolute Neuts (auto) (2.0-8.3) x10*3/uL Absolute Nucleated RBC (0.0-0.012) X10*3/uL Nucleated RBC % (auto) (0.0-0.2) /100WBC PT (10.0-13.1) SEC INR (0.9-1.1) D-Dimer High Sensitivty NG/ML VBG pH 7.33 (7.32-7.43) VBG pCO2 49 mmHg VBG pO2 80 mmHg VBG HCO3 26 (22-26) mmol/L VBG O2 Saturation 97.0 % VBG Base Excess 0.6 mmol/L Sodium (135-145) mmol/L Potassium (3.3-5.1) mmol/L Chloride (96-108) mmol/L Carbon Dioxide (22-29) mmol/L Anion Gap (12-20) BUN (9-16) mg/dL Creatinine (0.5-1.4) mg/dL Estim Creat Clear Calc Estimated GFR POC Glucose 162 H (60-115) mg/dL Random Glucose (60-115) mg/dL Lactic Acid (0.5-2.0) mmol/L Calcium (8.4-10.2) mg/dL Total Bilirubin (0.0-1.0) mg/dL AST (5-31) U/L ALT (0-31) U/L Alkaline Phosphatase (39-117) U/L Ammonia (13-55) umol/L Troponin I High Sens (<3.5-17.0) ng/L Total Protein (6.5-8.0) g/dL Albumin (3.5-5.0) g/dL TSH (0.32-4.0) uIU/mL Free T4 (0.71-1.85) ng/dL Urine Color Urine Appearance Urine pH (5.0-9.0) Ur Specific [place] (1.005-1.025) Urine Protein (Neg-Trace) mg/dL Urine Glucose (UA) (Negative) mg/dL Urine Ketones (Negative) mg/dL Urine Blood (Negative) Urine Nitrite (Negative) Ur Leukocyte Esterase (Negative) Urine RBC (0-2) /HPF Urine WBC (0-5) /HPF Ur Squamous Epith Cells (0-2) /HPF Urine Bacteria (None Seen) Hyaline Casts (0-2) /LPF Urine Opiates Screen (Not Detect) Urine Fentanyl Screen (Not Detect) Ur Barbiturates Screen (Not Detect) Ur Phencyclidine Scrn (Not Detect) Ur Amphetamines Screen (Not Detect) U Benzodiazepines Scrn (Not Detect) Urine Cocaine Screen (Not Detect) U Marijuana (THC) Screen (Not Detect) Ethyl Alcohol mg/dL Influenza Type A (PCR) (Negative) Influenza Type B (PCR) (Negative) RSV RNA Qual (PCR) (Negative) SARS-CoV-2 RNA (RT-PCR) (Negative) Ref Lab Test Result Discharge Plan Discharge Clinical Impression: Lethargic, Opioid use disorder, Urinary tract infection Patient Disposition: [facility] Instructions: Urinary Tract Infection in Women (ED), Opioid Use Disorder (ED) Prescriptions: New cephalexin 500 mg capsule 1,000 mg PO BID Qty: 14 0RF No Action amlodipine [Norvasc] 5 mg tablet 5 mg PO DAILY Qty: 30 0RF atorvastatin 80 mg tablet 80 mg PO BEDTIME Qty: 30 0RF clonazepam [Klonopin] 0.5 mg tablet 0.5 mg PO DAILY Qty: 30 0RF gabapentin 600 mg tablet 600 mg PO TID Qty: 120 0RF fluoxetine [Prozac] 20 mg capsule 60 mg PO DAILY Qty: 90 0RF insulin glargine 100 unit/mL solution 28 unit subcut DAILY Qty: 10 0RF insulin lispro 100 unit/mL solution 1 sliding scale dose subcut USEASDIRECTD Qty: 10 0RF Rx Instructions: Glucose 151-200 - give 2 units Glucose 201-250 - give 4 units Glucose 251-300 - give 6 units Glucose 301-350 - give 8 units >350 - give 10 units loratadine [Claritin] 10 mg tablet 10 mg PO DAILY Qty: 30 0RF trazodone 100 mg tablet 200 mg PO BEDTIME Qty: 30 0RF levothyroxine 75 mcg tablet 1 tab PO DAILY@0600 levothyroxine [Synthroid] 200 mcg tablet 200 mcg PO DAILY@0600 buprenorphine-naloxone [Suboxone] 8-2 mg Film 1 film BUCCAL TID dexamethasone 6 mg tablet 6 mg PO DAILY Qty: 6 0RF aspirin 81 mg tablet,delayed release (DR/EC) 1 tab PO DAILY omeprazole 20 mg capsule,delayed release(DR/EC) 1 cap PO BID@0630,1630 albuterol sulfate [ProAir HFA] 90 mcg/actuation HFA aerosol inhaler 2 puff PO Q4H PRN (Reason: wheezing) lidocaine [Lidocaine Pain Relief] 4 % Adhesive Patch,Medicated 1 patch transdermal DAILY Qty: 30 0RF Protocol: Apply to: Apply to: left knee docusate sodium [Colace] 100 mg capsule 100 mg PO DAILY PRN (Reason: constipation) Qty: 30 0RF (DME) pen needle, diabetic [UltiCare Pen Needle] 31 gauge x 5/16 needle See Rx Instructions subcut .MEDSUPPLY Qty: 1200 Rx Instructions: As directed (DME) FreeStyle Lite Strips Strip See Rx Instructions Not Applicable QID Qty: 10 Rx Instructions: As directed
--- OUTSIDE RECORDS SUMMARY | 2022-05-26 16:41 | XMS_ITS | Continuity of Care Document ---
:1970 Author Organization [facility] Adult Address [address] [place] [address]- Care Team Providers Name Role Phone Brooke BOOK SORTER, Ray Mcleod Primary Care Physician Encounter [facility] [place] Date(s): 02/17/21 - 03/19/21 [facility] [address] [place] [phone]- Attending Physician: Ananth Herrera Admitting Physician: Ananth Herrera Referring Physician: AdmtrAnanth Allergies, Adverse Reactions, Alerts Substance Reaction Severity Status amoxicillin Active penicillin hives Persistent Moderate Active Januvia Active metFORMIN Active Invokana Active Latex hives Persistent Moderate Active Immunizations Given and Recorded Vaccine Date Status Refusal Reason influenza virus vaccine, inactivated1 08/01/18 Given influenza virus vaccine, inactivated 05/09/16 Given influenza virus vaccine, inactivated2 06/04/15 Recorded influenza virus vaccine, inactivated 03/25/15 Recorded influenza virus vaccine, inactivated 04/08/12 Recorded influenza virus vaccine, inactivated 05/05/11 Recorded influenza virus vaccine, inactivated 03/01/10 Recorded influenza virus vaccine, inactivated 06/21/09 Recorded influenza virus vaccine, inactivated 03/04/08 Recorded influenza virus vaccine, inactivated 05/06/07 Recorded tetanus-diphtheria toxoids (Td) 09/07/16 Given Hepatitis A Adult Vaccine 04/07/15 Recorded tetanus/diphtheria/pertussis, acel(Tdap) 10/30/12 Recorde d pneumococcal 23-valent vaccine3 11/22/10 Given pneumococcal 23-valent vaccine 12/19/06 Recorded influ virus vac, H1N1, inactive(oldterm) 06/21/09 Recorde d 1Result Comment: [facility] [phone] Comment: [10/01/2015] per [id number] Comment: vis given Medications aspirin 81 mg oral delayed release tablet 81 mg, 1, tablet, By Mouth, Daily, do not crush or chew, # 30 tablet, Refills 11, Tot. Refills 11, Maintenance, 07/30/20 9:01:00 EST, Route to Pharmacy Electronically, [facility], 158, cm, 04/07/20 15:28:00 EST, Height, 161, kg, 06... Start Date: 07/30/20 Status: Orderedatorvastatin 80 mg oral tablet 1 tablet = 80 mg, By Mouth, Daily, # 90 tablet, 1 Refills, Maintenance, 10/08/20 11:38:00 EDT, Tablet, [facility], 158, cm, 10/08/20 11:23:00 EDT, Height, 161, kg, 11/10/19 18:44:00EDT, Dry Weight Start Date: 10/08/20 Stop Date: 04/06/21 Status: OrderedBedpan See Instructions, # 1 each, Refills 0, Tot. Refills 0, Maintenance, DX: Morbid Obesity, Chronic low back pain, chronic knee pain, 02/14/18 8:43:18 EDT, Compound Start Date: 02/14/18 Status: OrderedBedside Commode See Instructions, # 1 each, Refills 0, Tot. Refills 0, Maintenance, DX: Morbid Obesity, Chronic low back pain, chronic knee pain Length of need: lifetime HT: 165cm WT: 164.1kg, 02/26/18 10:15:16 EDT, Compound Start Date: 02/26/18 Status: OrderedBedside Commode See Instructions, # 1 each, Maintenance, Large Bedside Commode Impaired Mobility (Z74.09) Unsteady Gait (R26.81) Daily use Life long (99), 07/12/20 13:16:00 EST, Supply Start Date: 07/12/20 Status: OrderedclonazePAM 1 mg oral tablet 1 tablet = 1 mg, By Mouth, 3 times a day, 0 Refills, Maintenance, 03/26/17 6:29:08, Tablet Start Date: 03/26/17 Status: OrderedDiapers See Instructions, # 1 each, Refills 11, Tot. Refills 11, Maintenance, Change 5 times daily Life long(99) Urinary Incontinence (R32) Size 45-58 , 07/26/20 11:37:00 EST, Supply Start Date: 07/26/20 Status: OrderedFreestyle Lancets See Instructions, # 150 each, Refills 0, Tot. Refills 0, Maintenance, Use as instructed to test blood sugars before meals, at bedtime and as needed, 4-5x/day keep appointment for futher refills, 05/23/19 13:48:00 EST, Dx E11.65, Compound, 165, cm, ... Start Date: 05/23/19 Status: OrderedFreestyle Lite Monitor See Instructions, # 1 each, Maintenance, Pt to check blood sugar 4x daily as directed for dx of E11.65, 04/01/19 11:22:22 EDT, Compound Start Date: 04/01/19 Status: OrderedFreestyle Lite Test Strips See Instructions, # 150 each, Refills 11, Tot. Refills 11, Maintenance, Check blood sugar 4 times daily. E11.65, 08/26/20 16:39:00 EDT, Dx E11.65, Compound, 158, cm, 04/07/20 15:28:00 EST, Height, 161,kg, 11/10/19 18:44:00 EDT, Dry Weight Start Date: 08/26/20 Status: Orderedgabapentin 300 mg oral capsule 1, capsule, By Mouth, 3 times a day, # 270 capsule, Refills 1, Tot. Refills 1, Maintenance, 09/03/2113:19:00 EDT, Route to Pharmacy Electronically, [facility], Resent from 09/02/20, 158, cm, 04/07/20 15:28:00 EST, Height, 161, kg, 0... Start Date: 09/03/20 Status: OrderedHEAVY DUTY WHEELCHAIR WITH FOOT REST HEAVY DUTY WHEELCHAIR WITH FOOT REST, See Instructions, # 1 each, Refills 0, Tot. Refills 0, Maintenance, DX UNSTEADY GAIT (R26.81) JANE: LIFETIME (99), 08/24/20 13:09:00 EDT, Compound Start Date: 08/24/20 Status: OrderedHumalog Kwik Pen 100 units/mL subcutaneous injection See Instructions, Take 20 units wit breakfast, 15 units with lunch, 20 units with dinner. E11.65, # 30 mL, 5 Refills, Maintenance, 08/26/20 16:38:00 EDT, [facility], 158, cm, 04/07/20 15:28:00 EST, Height, 161, kg, 11/10/19 18:44:0... Start Date: 08/26/20 Status: Orderedhydrochlorothiazide-lisinopril 25 mg-20 mg oral tablet 1 tablet, By Mouth, Daily, # 90 tablet, 0 Refills, Maintenance, 03/08/21 14:32:00 EDT, Tablet, [facility] #[id number], 1 tablet By Mouth Daily,x90 days, 158, cm, 10/08/20 11:23:00 EDT, Height, 161, kg, 11/10/19 18:44:00 EDT, Dry Weight Start Date: 03/08/21 Stop Date: 06/06/21 Status: OrderedHydrocortisone 2.5% cream as 1:1 mix with cerave cream Hydrocortisone 2.5% cream as 1:1 mix with cerave cream, See Instructions, # 240 Gm, Refills 0, Tot. Refills 0, Maintenance, Apply three times daily to affected skin., 12/25/17 14:50:56 EDT, Compound Start Date: 12/25/17 Status: OrderedhydrOXYzine pamoate 50 mg oral capsule 1 capsule = 50 mg, By Mouth, 2 times a day, 0 Refills, Maintenance, 08/01/18 12:27:10 EST, Capsule Start Date: 08/01/18 Status: OrderedNancy Solostar Pen 100 units/mL subcutaneous solution See Instructions, Take 45 units twice daily. E11.65, # 30 mL, 5 Refills, Maintenance, 08/26/20 16:38:00 EDT, [facility], 158, cm, 04/07/20 15:28:00 EST, Height, 161, kg, 11/10/19 18:44:00 EDT, Dry Weight Start Date: 08/26/20 Status: Orderedlevothyroxine 0.2 mg oral tablet 1 tablet, By Mouth, Daily, # 90 tablet, 0 Refills, [facility], 158, cm, 10/08/2110:23:00 EDT, Height, 161, kg, 11/10/19 18:44:00 EDT, Dry Weight Start Date: 02/17/21 Status: Orderedloratadine 10 mg oral tablet 1, tablet, By Mouth, Daily, # 90 tablet, Refills 1, Tot. Refills 0, Maintenance, 11/21/20 20:30:00 EDT, Route to Pharmacy Electronically, [facility], 158, cm, 10/08/20 11:23:00 EDT,Height, 161, kg, 11/10/19 18:44:00 EDT, Dry Weight Start Date: 11/21/20 Status: Orderedomeprazole 20 mg oral enteric coated capsule 1 capsule = 20 mg, By Mouth, Daily, take 1/2-1 hour before breakfast, # 30 capsule, 5 Refills, Maintenance, 10/19/20 11:46:00 EDT, EC Capsule, [facility], 158, cm, 10/08/20 11:23:00EDT, Height, 161, kg, 11/10/19 18:44:00 EDT, Dry... Start Date: 10/19/20 Status: OrderedPen Rockwell, 31 G x 8 mm BD Ultra Fine III See Instructions, # 200 each, Refills 11, Tot. Refills 11, Maintenance, Use to inject insulin up to 5x a day. E11.9, 08/26/20 16:39:00 EDT, Compound, 158, cm, 04/07/20 15:28:00 EST, Height, 161, kg, 11/10/19 18:44:00 EDT, Dry Weight Start Date: 08/26/20 Status: OrderedProAir HFA 90 mcg/inh inhalation aerosol with adapter 2, puffs, Inhalation, Every 4 hours, PRN, # 8.5 Gm, Refills 5, Tot. Refills 5, Maintenance, 11/29/2109:15:00 EDT, Route to Pharmacy Electronically, [id number], [facility], 158, cm, 10/08/20 11:23:00 EDT,... Start Date: 11/29/20 Status: OrderedPROzac 20 mg oral capsule 60 mg, 3, capsule, By Mouth, Daily, Refills 0, Maintenance, 10/26/15 10:18:37 Start Date: 10/26/15 Status: OrderedShower Chair See Instructions, # 1 each, Maintenance, Heavy duty shower chair Dx: Unsteady gait and abnormality of mobility Height 158cm Weight 161Kg, 05/12/20 13:37:00 EST, Compound, 158, cm, 04/07/20 15:28:00 EST, Height, 161, kg, 11/10/19 18:44:00 EDT, Dry W... Start Date: 05/12/20 Status: OrderedShower Chair See Instructions, # 1 each, Refills 0, Tot. Refills 0, Maintenance, DX: Morbid Obesity,Chronic Knee pain, Chronic low back pain Length of need: lifetime HT: 165cm WT: 164.1kg, 02/26/18 10:15:33 EDT, Compound Start Date: 02/26/18 Status: Orderedtrazodone 150 mg oral tablet 1 tablet, By Mouth, Daily at bedtime, # 30 tablet, 0 Refills, Maintenance, Tablet Start Date: 11/21/10 Status: Ordered Problem List Condition Effective Dates Status Health Status Informant Morbid obesity with BMI of 50.0-59.9, Active adult(Confirmed) Cervical radiculopathy(Confirmed) Active COPD (chronic obstructive pulmonary Active disease)(Confirmed) Depression(Confirmed) Active Diabetic neuropathy(Confirmed) Active Nephropathy, diabetic(Confirmed) Active Diabetic nephropathy(Confirmed) Active GERD (gastroesophageal reflux Active disease)(Confirmed) Heroin use(Confirmed)1 Active Hyperlipidemia(Confirmed) Active Hyperlipidemia(Confirmed) Active Hypertension(Confirmed) Active Hypothyroidism(Confirmed) Active Impaired mobility(Confirmed) Active Insomnia(Confirmed) Active Low back pain(Confirmed) Active Microalbuminuric diabetic Active nephropathy(Confirmed) Obesity(Confirmed) Active Narcotic dependence(Confirmed)2 Active Seasonal allergies(Confirmed) Active Tobacco abuse(Confirmed) Active Diabetes mellitus type 2 in Active obese(Confirmed) Unsteady gait(Confirmed) Active Uses walker(Confirmed) Active 1iin [id number] the Suboxone program Social History Social History Type Response Smoking Status Current every day smoker; Ty pe: Cigarettes; Other: 10 a day; entered on: 11/25/15 Sex Female
--- OUTSIDE RECORDS SUMMARY | 2022-05-26 16:41 | XMS_ITS | Continuity of Care Document ---
:1970 Author Organization [facility] Address [address] [place] [phone]- Care Team Providers Name Role Phone Brooke JAVIER, Ray Mcleod Primary Care Physician Encounter [facility] [place] Date(s): 12/24/19 - 02/26/20 [facility] [address] [place] [phone] Attending Physician: Ivonne Fontaine MD Admitting Physician: Ivonne Fontaine MD Referring Physician: Ray Cox NP Allergies, Adverse Reactions, Alerts Substance Reaction Severity Status amoxicillin Active penicillin hives Persistent Moderate Active Latex hives Persistent Moderate Active Januvia Active metFORMIN Active Invokana Active Immunizations Given and Recorded Vaccine Date Status Refusal Reason influenza virus vaccine, inactivated1 08/01/18 Given influenza virus vaccine, inactivated 05/09/16 Given influenza virus vaccine, inactivated2 06/04/15 Recorded tetanus-diphtheria toxoids (Td) 09/07/16 Given pneumococcal 23-valent vaccine3 11/22/10 Given 1Result Comment: [facility] [phone] Comment: [10/01/2015] per [id number] Comment: vis given Medications albuterol CFC free 90 mcg/inh inhalation aerosol 2, puffs, Inhalation, Every 4 hours, PRN, # 18 Gm, Refills 5, Tot. Refills 5, Maintenance, 01/13/20 11:29:00 EDT, Aerosol, Route to Pharmacy Electronically, [id number], [facility], 158, cm, 11/25/19 17:19:... Start Date: 01/13/20 Stop Date: 07/11/20 Status: Orderedaspirin 81 mg oral delayed release tablet 81 mg, 1, tablet, By Mouth, Daily, do not crush or chew, # 30 tablet, Refills 11, Tot. Refills 11, Maintenance, 08/13/19 11:18:00 EDT, Route to Pharmacy Electronically, [facility], 165, cm, 06/05/19 13:45:00 EST, Height Start Date: 08/13/19 Status: Orderedatorvastatin 80 mg oral tablet 1 tablet = 80 mg, By Mouth, Daily, # 90 tablet, 4 Refills, Maintenance, 06/05/19 14:25:00 EST, Tablet, [facility] - , 165, cm, 06/05/19 13:45:00 EST, Height Start Date: 06/05/19 Status: OrderedBARIATRIC WHEELCHAIR BARIATRIC WHEELCHAIR, See Instructions, # 1 each, Refills 0, Tot. Refills 0, Maintenance, WITH FOOT RESTS. DX UNSTEADY GAIT, LENGTH OF NEED:LIFETIME [facility] [phone], 08/04/19 15:18:00 EST, Compound Start Date: 08/04/19 Status: OrderedBedpan See Instructions, # 1 each, [...] 10:15:16 EDT, Compound Start Date: 02/26/18 Status: OrderedCeraVe topical cream 1 application, Topically, 3 times a day, PRN for dry skin, # 360 Gm, 0 Refills, Maintenance, 12/28/17 11:30:38 EDT, Cream, 1 application Topically 3 times a day,PRN:for dry skin Start Date: 12/28/17 Status: OrderedclonazePAM 1 mg oral tablet 1 tablet = 1 mg, By Mouth, 3 times a day, 0 Refills, Maintenance, 10/23/17 6:29:08, Tablet Start Date: 03/26/17 Status: OrderedFreestyle Lancets See Instructions, # 150 [...] Check blood sugar 4 times daily. E11.65, 10/22/19 15:42:00 EDT, Dx E11.65, Compound, 165, cm, 06/05/19 13:45:00 EST, Height Start Date: 10/22/19 Status: Orderedgabapentin 300 mg oral capsule 1, capsule, By Mouth, 3 times a day, # 270 capsule, Refills 1, Tot. Refills 0, Maintenance, 01/05/2010:50:00 EDT, Route to Pharmacy Electronically, [facility], 158, cm, 11/25/19 17:19:00 EDT, Height, 161, kg, 11/10/19 18:44:00 EDT... Start Date: 01/06/20 Status: OrderedHumalog Kwik Pen 100 units/mL subcutaneous injection See Instructions, Max daily dose 70 units, take per sliding scale from office 3 times daily with meals. E11.65, # 30 mL, 5 Refills, Maintenance, 10/22/19 15:40:00 EDT, [facility], 165, cm, 06/05/19 13:45:00 EST, Height Start Date: 10/22/19 Status: Orderedhydrochlorothiazide-lisinopril 25 mg-20 mg oral tablet 1 tablet, By Mouth, Daily, # 90 tablet, 3 Refills, Maintenance, 06/05/19 14:24:00 EST, Tablet, [facility], 1 tablet By Mouth Daily, 165, cm, 06/05/19 13:45:00 EST, Height Start Date: 06/05/19 Status: OrderedHydrocortisone 2.5% cream as 1:1 mix [...] 12:27:10 EST, Capsule Start Date: 08/01/18 Status: Orderedibuprofen 800 mg oral tablet 800 mg, 1, tablet, By Mouth, 3 times a day, PRN, for 30 days, with food or milk, # 90 tablet, Refills 5, Tot. Refills 5, Acute 07/24/20 15:33:00 EST, Pain , Moderate, 01/26/20 15:33:00 EDT, Route to Pharmacy Electronically, [facility] Start Date: 01/26/20 Stop Date: 07/24/20 Status: OrderedLantus Solostar Pen 100 units/mL subcutaneous solution See Instructions, Take 35 units twice daily. E11.65, # 30 mL, 5 Refills, Maintenance, 10/22/19 15:41:00 EDT, [facility], 165, cm, 06/05/19 13:45:00 EST, Height Start Date: 10/22/19 Status: Orderedlevothyroxine 0.2 mg oral tablet 1 tablet = 200 mcg, By Mouth, Daily, # 90 tablet, 1 Refills, Maintenance, 03/02/20 16:38:00 EDT, Tablet, [facility], 158, cm, 11/25/19 17:19:00 EDT, Height, 161, kg, 11/10/19 18:44:00 EDT, Dry Weight Start Date: 03/02/20 Stop Date: 08/29/20 Status: Orderedlevothyroxine 0.2 mg oral tablet 1 tablet = 200 mcg, By Mouth, Daily, for 90 days, Labs needed prior to refills 09/04/2019. See 09/03 msg., # 90 tablet, 1 Refills, Hard Stop 03/02/20 16:38:00 EDT, 09/04/19 16:38:00 EDT, Tablet, [facility], change in dose, 165, cm, ... Start Date: 09/04/19 Stop Date: 03/02/20 Status: Orderedloratadine 10 mg oral tablet 10 mg, 1, tablet, By Mouth, Daily, # 90 tablet, Refills 1, Tot. Refills 1, Maintenance, 12/09/19 9:24:00 EDT, Route to Pharmacy Electronically, [facility], 158, cm, 11/25/19 17:19:00 EDT, Height, 161, kg, 11/10/19 18:44:00 EDT, Dry... Start Date: 12/09/19 Stop Date: 06/06/20 Status: Orderedomeprazole 20 mg oral enteric coated capsule 1 capsule = 20 mg, By Mouth, Daily, take 1/2-1 hour before breakfast, # 30 capsule, 2 Refills, Maintenance, 01/06/20 9:48:00 EDT, EC Capsule, [facility], 158, cm, 11/25/19 17:19:00 EDT, Height, 161, kg, 11/10/19 18:44:00 EDT, Dry W... Start Date: 01/06/20 Status: OrderedPen Holt, 31 G x 8 mm BD Ultra Fine III See Instructions, # 120 each, Refills 0, Tot. Refills 0, Maintenance, Use to inject insulin up to 4xa day, E11.9, 10/18/18 15:22:00 EDT, Compound Start Date: 10/18/18 Status: OrderedPROzac 20 mg oral capsule 60 mg, 3, capsule, By Mouth, Daily, Refills 0, Maintenance, 10/26/15 10:18:37 Start Date: 10/26/15 Status: OrderedShower Chair See Instructions, # 1 each, Refills 0, Tot. Refills 0, Maintenance, DX: Morbid Obesity,Chronic Knee pain, Chronic low back pain Length of need: lifetime HT: 165cm WT: 164.1kg, 02/26/18 10:15:33 EDT, Compound Start Date: 02/26/18 Status: OrderedShower Chair See Instructions, # 1 each, Maintenance, DX:morbid obesity and chronic low back pain E66.01,M54.5, 10/30/17 13:44:47 EDT, Compound Start Date: 10/30/17 Status: Orderedtrazodone 150 mg oral tablet 1 [...] Unsteady gait(Confirmed) Active Uses walker(Confirmed) Active 1iin [id number] the Suboxone program Social History Social History Type Response Smoking Status Current every day smoker; Ty pe: Cigarettes; Other: 10 a day; entered on: 11/25/15 Sex Female
--- OUTSIDE RECORDS SUMMARY | 2022-05-26 16:41 | XMS_ITS | Continuity of Care Document ---
:1970 Author Organization [facility] Address [address] [place] [phone]- Care Team Providers Name Role Phone Ray Cox NP Primary Care Physician Encounter [facility] Date(s): 10/08/19 - 10/15/19 [facility] [address] [place] [phone]- [facility] Attending Physician: Zhen CRUZ, [facility] Referring Physician: Ray Cox NP Allergies, Adverse [...] pneumococcal 23-valent vaccine3 11/22/10 Given 1Result Comment: [facility] [phone] Comment: [10/01/2015] per [email or web address] Comment: vis given Medications albuterol CFC free 90 mcg/inh inhalation aerosol 2, puffs, Inhalation, Every 4 hours, PRN, # 18 Gm, Refills 5, Tot. Refills 5, Maintenance, 09/23/19 15:56:00 EDT, Aerosol, Route to Pharmacy Electronically, [id number], [facility], 165, cm, 06/05/19 13:45:... Start Date: 09/23/19 Stop Date: 03/21/20 Status: Orderedaspirin 81 mg oral delayed release tablet 81 mg, 1, tablet, By Mouth, Daily, do not crush or chew, # 30 tablet, Refills 11, Tot. Refills 11, Maintenance, 08/13/19 11:18:00 EDT, Route to Pharmacy Electronically, [facility], 165, cm, 06/05/19 13:45:00 EST, Height Start Date: 08/13/19 Status: Orderedatorvastatin 80 mg oral tablet 1 tablet = 80 mg, By Mouth, Daily, # 90 tablet, 4 Refills, Maintenance, 06/05/19 14:25:00 EST, Tablet, [facility] - , 165, cm, 06/05/19 13:45:00 EST, Height Start Date: 06/05/19 Status: OrderedBARIATRIC WHEELCHAIR BARIATRIC WHEELCHAIR, See Instructions, # 1 each, Refills 0, Tot. Refills 0, Maintenance, WITH FOOT RESTS. DX UNSTEADY GAIT, LENGTH OF NEED:LIFETIME [facility] [phone], 08/04/19 15:18:00 EST, Compound Start Date: 08/04/19 [...] 03/26/17 6:29:08, Tablet Start Date: 03/26/17 Status: OrderedFreestyle [...] OrderedFreestyle Lite Test Strips See Instructions, # 200 each, Refills 5, Tot. Refills 5, Maintenance, USE TO CHECK GLUCOSE 4-5X DAILY DX E11.9, 09/23/19 16:09:00 EDT, Dx E11.65, Compound, 165, cm, 06/05/19 13:45:00 EST, Height Start Date: 09/23/19 Status: Orderedgabapentin 300 mg oral capsule 300 mg, 1, capsule, By Mouth, 3 times a day, # 270 capsule, Refills 0, Tot. Refills 0, Maintenance, 09/04/19 14:45:00 EDT, Route to Pharmacy Electronically, [facility], 165, cm, 06/05/19 13:45:00 EST, Height Start Date: 09/04/19 Status: OrderedHumalog Kwik Pen 100 units/mL subcutaneous injection See Instructions, inject up to 36 units 3 times daily with meals. for [id number], # 30 mL, 0 Refills, Maintenance, 04/01/19 11:21:31 EDT Start Date: 04/01/19 Status: Orderedhydrochlorothiazide-lisinopril 25 mg-20 mg oral tablet 1 tablet, By Mouth, Daily, # 90 tablet, 3 Refills, Maintenance, 06/05/19 14:24:00 EST, Tablet, [facility] - , 1 tablet By Mouth Daily, 165, cm, [...] tablet, Refills 5, Tot. Refills 5, Acute 01/31/20 14:12:00 EDT, Pain , Moderate, 08/04/19 14:12:00 EST, Route to Pharmacy Electronically, [facility] Start Date: 08/04/19 Stop Date: 01/31/20 Status: OrderedLantus Solostar Pen 100 units/mL subcutaneous solution = 90 units, Subcutaneous Injection, Daily at bedtime, keep appointment on 06/13/19 for further refills, # 15 mL, 2 Refills, Maintenance, 09/23/19 15:56:00 EDT, [facility], 165, cm, 06/05/19 13:45:00 EST, Height Start Date: 09/23/19 Status: Orderedlevothyroxine 0.2 mg oral tablet 1 tablet = 200 mcg, By Mouth, Daily, Labs needed prior to refills 09/04/2019. See 09/03 msg., # 90 tablet, 1 Refills, Maintenance, 09/04/19 16:38:00 EDT, Tablet, [facility], change in dose, 165, cm, 06/05/19 13:45:00 EST, Height Start Date: 09/04/19 Stop Date: 03/02/20 Status: Orderedloratadine 10 mg oral tablet 10 mg, 1, tablet, By Mouth, Daily, # 90 tablet, Refills 1, Tot. Refills 1, Maintenance, 06/17/19 11:16:00 EST, Route to Pharmacy Electronically, [facility], 165, cm, 06/05/19 13:45:00 EST, Height Start Date: 06/17/19 Stop Date: 12/14/19 Status: Orderedomeprazole 20 mg oral enteric coated capsule 1 capsule = 20 mg, By Mouth, Daily, take 1/2-1 hour before breakfast, # 30 capsule, 2 Refills, Maintenance, 10/06/19 14:57:00 EDT, EC Capsule, [facility], 165, cm, 06/05/19 13:45:00EST, Height Start Date: 10/06/19 Status: OrderedPen Kersey, 31 G x 8 mm BD Ultra [...] Unsteady gait(Confirmed) Active Uses walker(Confirmed) Active 1iin [id number] the Suboxone program Social History Social History Type Response Smoking Status Current every day smoker; Ty pe: Cigarettes; Other: 10 a day; entered on: 11/25/15 Sex Female
--- OUTSIDE RECORDS SUMMARY | 2022-05-26 16:41 | XMS_ITS | Continuity of Care Document ---
:1970 Author Organization [facility] Adult Address [address] [place] [address]- Care Team Providers Name Role Phone Brooke HEAD CHOPPER, Ray Mcleod Primary Care Physician Encounter [facility] Date(s): 10/10/21 - 11/09/21 [facility] [address] [place] [id number]- Allergies, Adverse Reactions, Alerts Substance Reaction Severity Status amoxicillin Active penicillin hives Persistent Moderate Active Latex hives Persistent Moderate Active Januvia Active metFORMIN Active Invokana Active Immunizations Given and Recorded Vaccine Date Status Refusal Reason influenza virus vaccine, inactivated1 08/05/21 Given influenza virus vaccine, inactivated2 08/01/18 Given influenza virus vaccine, inactivated 05/09/16 Given influenza virus vaccine, inactivated3 06/04/15 Recorded influenza virus vaccine, inactivated 03/25/15 Recorded influenza virus vaccine, inactivated 04/08/12 Recorded influenza virus vaccine, inactivated 05/05/11 Recorded influenza virus vaccine, inactivated 03/01/10 Recorded influenza virus vaccine, inactivated 06/21/09 Recorded influenza virus vaccine, inactivated 03/04/08 Recorded influenza virus vaccine, inactivated 05/06/07 Recorded tetanus-diphtheria toxoids (Td) 09/07/16 Given Hepatitis A Adult Vaccine 04/07/15 Recorded tetanus/diphtheria/pertussis, acel(Tdap) 10/30/12 Recorde d pneumococcal 23-valent vaccine4 11/22/10 Given pneumococcal 23-valent vaccine 12/19/06 Recorded influ virus vac, H1N1, inactive(oldterm) 06/21/09 Recorde d 1Result Comment: [facility]: [id number] Comment: [facility] [phone] Comment: [10/01/2015] per [id number] Comment: vis given Medications amLODIPine 5 mg oral tablet TAKE 1 TABLET BY MOUTH EVERY DAY Start Date: 09/15/21 Status: OrderedamLODIPine 5 mg oral tablet 1 tablet = 5 mg, By Mouth, Daily, TAKE 1 TABLET BY MOUTH EVERY DAY, # 90 tablet, 2 Refills, Maintenance, 10/14/21 17:06:00 EDT, Tablet, [facility], Partial fill upon patient requestif the prescription is for a schedule II opioid d... Start Date: 10/14/21 Stop Date: 07/11/22 Status: OrderedAspirin Low Dose 81 mg oral delayed release tablet 1 tablet, By Mouth, Daily, no CRUSH OR CHEW, # 30 tablet, 11 Refills, [facility], 158, cm, 04/29/21 11:38:00 EST, Height, 161, kg, 11/10/19 18:44:00 EDT, Dry Weight Start Date: 07/11/21 Status: Orderedatorvastatin 80 mg oral tablet 1 tablet, By Mouth, Daily, NEEDS LABS BEFORE NEXT REFILL, # 90 tablet, 1 Refills, Maintenance, 06/29/21 7:35:00 EST, [facility], 158, cm, 04/29/21 11:38:00 EST, Height, 161, kg, 11/10/19 18:44:00 EDT, Dry Weight Start Date: 06/29/21 Stop Date: 12/26/21 Status: OrderedBedpan See Instructions, # 1 each, [...] 11:37:00 EST, Supply Start Date: 07/26/20 Status: OrderedFreeStyle [place] Lite kit FreeStyle [place] Lite kit, See Instructions, # 1 kit, 5 Refills, TEST BLOOD SUGAR FOUR TIMES DAILY,158, cm, 04/29/21 11:38:00 EST, Height, 161, kg, 11/10/19 18:44:00 EDT, Dry Weight Start Date: 05/19/21 Status: OrderedFreestyle Lancets See Instructions, # 150 [...] daily as directed for dx of E11.65, 05/11/21 10:02:00 EST, Compound, 158, cm, 04/29/21 11:38:00 EST, Height, 161, kg, 11/10/19 18:44:00 EDT, Dry Weight Start Date: 05/11/21 Status: OrderedFreestyle Lite Test Strips See Instructions, # 150 each, Refills 2, Tot. Refills 2, Maintenance, Check blood sugar 4 times daily. E11.65, 09/26/21 11:31:00 EDT, Dx E11.65, Compound, 158, cm, 09/15/21 16:09:00 EDT, Height, 161, kg, 11/10/19 18:44:00 EDT, Dry Weight Start Date: 09/26/21 Status: Orderedfurosemide 20 mg oral tablet 20 mg, 1, tablet, By Mouth, 2 times a day, for 30 days, Hold HCTZ when taking Furosemide, # 60 tablet, Refills 0, Tot. Refills 0, Acute 11/13/21 17:05:00 EDT, 10/14/21 17:05:00 EDT, Route to Pharmacy Electronically, [facility], Par... Start Date: 10/14/21 Stop Date: 11/13/21 Status: Orderedgabapentin 600 mg oral tablet 1 tablet = 600 mg, By Mouth, 3 times a day, # 90 tablet, 5 Refills, Maintenance, 09/01/21 13:44:00 EDT, Tablet, [facility], Partial fill upon patient request if the prescription is for a schedule II opioid drug., 158, cm, 08/05/21... Start Date: 09/01/21 Stop Date: 02/28/22 Status: OrderedHEAVY DUTY WHEELCHAIR WITH FOOT REST HEAVY DUTY WHEELCHAIR WITH FOOT REST, See Instructions, # 1 each, Refills 0, Tot. Refills 0, Maintenance, DX UNSTEADY GAIT (R26.81) JANE: LIFETIME (99), 08/24/20 13:09:00 EDT, Compound Start Date: 08/24/20 Status: OrderedHumalog Kwik Pen 100 units/mL subcutaneous injection See Instructions, Take 22 units wit breakfast, 17 units with lunch, 22 units with dinner. E11.65, # 30 mL, 5 Refills, Maintenance, 08/31/21 13:03:00 EDT, [facility], 158, cm, 08/05/21 13:35:00 EST, Height, 161, kg, 11/10/19 18:44:0... Start Date: 08/31/21 Status: Orderedhydrochlorothiazide 25 mg oral tablet TAKE 1 TABLET BY MOUTH EVERY DAY FOR 30 DAYS Start Date: 09/15/21 Status: Orderedhydrochlorothiazide 25 mg oral tablet TAKE 1 TABLET BY MOUTH EVERY DAY FOR 30 DAYS Start Date: 09/15/21 Status: Orderedhydrochlorothiazide-lisinopril 25 mg-20 mg oral tablet 1 tablet, By Mouth, Daily, # 90 tablet, 1 Refills, Maintenance, 08/31/21 15:46:00 EDT, [facility], 90, 1 tablet By Mouth Daily, 158, cm, 08/05/21 13:35:00 EST, Height, 161, kg, 11/10/19 18:44:00 EDT, Dry Weight Start Date: 08/31/21 Status: OrderedHydrocortisone 2.5% cream as 1:1 mix with cerave cream Hydrocortisone 2.5% cream as 1:1 mix with cerave cream, See Instructions, # 240 Gm, Refills 0, Tot. Refills 0, Maintenance, Apply three times daily to affected skin., 12/25/17 14:50:56 EDT, Compound Start Date: 12/25/17 Status: OrderedhydrOXYzine pamoate 50 mg oral capsule 1 capsule = 50 mg, By Mouth, Daily, 0 Refills, Maintenance, 08/01/18 12:27:10 EST, Capsule Start Date: 08/01/18 Status: Orderedibuprofen 800 mg oral tablet 800 mg, 1, tablet, By Mouth, 3 times a day, PRN, for 30 days, with food or milk, # 90 tablet, Refills 5, Tot. Refills 5, Acute 11/15/21 11:48:00 EDT, Pain , Moderate, 05/19/21 11:48:00 EST, Route to Pharmacy Electronically, [facility]/pharmacy #[id number], 158, cm... Start Date: 05/19/21 Stop Date: 11/15/21 Status: OrderedLantus Solostar Pen 100 units/mL subcutaneous solution See Instructions, Take 54 units twice daily. E11.65, # 45 mL, 5 Refills, Maintenance, 03/21/21 19:37:00 EDT, [facility], 158, cm, 10/08/20 11:23:00 EDT, Height, 161, kg, 11/10/19 18:44:00 EDT, Dry Weight Start Date: 03/21/21 Status: Orderedlevothyroxine 0.2 mg oral tablet 1 tablet, By Mouth, Daily, # 90 tablet, 1 Refills, Maintenance, 09/27/21 18:47:00 EDT, [facility], 158, cm, 09/15/21 16:09:00 EDT, Height, 161, kg, 11/10/19 18:44:00 EDT, Dry Weight Start Date: 09/27/21 Stop Date: 03/26/22 Status: Orderedloratadine 10 mg oral tablet 1, tablet, By Mouth, Daily, # 90 tablet, Refills 1, Route to Pharmacy Electronically, [facility], 158, cm, 10/14/21 14:09:00 EDT, Height, 161, kg, 11/10/19 18:44:00 EDT, Dry Weight Start Date: 11/04/21 Status: Orderedomeprazole 20 mg oral enteric coated capsule 1 capsule = 20 mg, By Mouth, 2 times a day, for 90 days, # 180 capsule, 6 Refills, Physician Stop 04/27/23 14:10:00 EST, 08/05/21 14:10:00 EST, [facility], 158, cm, 08/05/21 13:35:00 EST, Height, 161, kg, 11/10/19 18:44:00 EDT, Dry... Start Date: 08/05/21 Stop Date: 04/27/23 Status: Orderedpadded toilet seat padded toilet seat, See Instructions, # 1 each, Refills 0, Tot. Refills 0, Maintenance, dx: buttock sores, 09/19/21 11:23:00 EDT, Supply Start Date: 09/19/21 Status: OrderedPen [place], 31 G x 8 mm BD Ultra Fine III See Instructions, # 200 each, Refills 11, Tot. Refills 11, Maintenance, Use to inject insulin up to 5x a day. E11.9, 08/26/20 16:39:00 EDT, Compound, 158, cm, 04/07/20 15:28:00 EST, Height, 161, kg, 11/10/19 18:44:00 EDT, Dry Weight Start Date: 08/26/20 Status: OrderedpredniSONE 10 mg oral tablet TAKE 4 TABS FOR 5 DAYS, 3 TABS FOR 3 DAYS, 2 TABS FOR 3 DAYS, THEN 1 TAB FOR 3 DAYS Start Date: 09/15/21 Status: OrderedProAir HFA 90 mcg/inh inhalation aerosol with adapter 2, puffs, Inhalation, Every 4 hours, PRN, # 8.5 Gm, Refills 5, Route to Pharmacy Electronically, [id number], [facility], 158, cm, 04/29/21 11:38:00 EST, Height, 161, kg, 11/10/19 18:44:00 EDT, Dry Weight Start Date: 05/19/21 Status: OrderedPROzac 20 mg oral capsule 60 [...] 10:15:33 EDT, Compound Start Date: 02/26/18 Status: OrderedSuboxone 8 mg-2 mg sublingual film 1 film, Sublingual, Daily, dissolve under the tongue, 0 Refills, Maintenance, 04/29/21 13:28:00 EST,Film, Partial fill upon patient request if the prescription is for a schedule II opioid drug. Start Date: 04/29/21 Status: Orderedtopiramate 50 mg oral tablet TAKE 1 TABLET BY MOUTH TWICE DAILY Start Date: 04/29/21 Status: OrderedtraZODone 100 mg oral tablet TAKE 1 TO 3 TABLETS AT BEDTIME NEEDED Start Date: 08/05/21 Status: OrderedUlticare Pen Needle 31 gauge x 10/17 Ulticare Pen Needle 31 gauge x 5/16 , See Instructions, # 200 Unknown, 2 Refills, USE DIRECTED FIVE TIMES DAILY, 158, cm, 09/15/21 16:09:00 EDT, Height, 161, kg, 11/10/19 18:44:00 EDT, Dry Weight Start Date: 09/26/21 Status: Ordered Problem List Condition Effective Dates Status Health Status Informant Morbid obesity with BMI of 50.0-59.9, Active adult(Confirmed) Cervical radiculopathy(Confirmed) Active COPD (chronic obstructive pulmonary Active disease)(Confirmed) Chronic respiratory failure(Confirmed) Active Depression(Confirmed) Active Diabetic neuropathy(Confirmed) Active Nephropathy, diabetic(Confirmed) Active Diabetic nephropathy(Confirmed) Active GERD (gastroesophageal reflux Active disease)(Confirmed) Heroin use(Confirmed)1 Active Hyperlipidemia(Confirmed) Active Hyperlipidemia(Confirmed) Active Hypertension(Confirmed) Active Hypothyroidism(Confirmed) Active Impaired mobility(Confirmed) Active Insomnia(Confirmed) Active Kidney stone(Confirmed) Active Low back pain(Confirmed) Active Microalbuminuria due to type 2 Active diabetes mellitus(Confirmed) Microalbuminuric diabetic Active nephropathy(Confirmed) Obesity(Confirmed) Active Narcotic dependence(Confirmed)2 Active Seasonal allergies(Confirmed) Active Severe obesity(Confirmed) Active Substance abuse(Confirmed) Active Tobacco abuse(Confirmed) Active Diabetes mellitus type 2 in Active obese(Confirmed) Unsteady gait(Confirmed) Active Uses walker(Confirmed) Active 1iin [id number] the Suboxone program Social History Social History Type Response Smoking Status 5-9 cigarettes (between 1/4 to 1/2 pack)/day in last 30 days entered on: 08/05/21 Sex Female
--- OUTSIDE RECORDS SUMMARY | 2022-05-26 16:41 | XMS_ITS | Continuity of Care Document ---
:1970 Author Organization [facility] Address [address] [place] [address]- Care Team Providers Name Role Phone Brooke JAVIER, Ray Mcleod Primary Care Physician Encounter [facility] Date(s): 04/15/19 - 06/22/19 [facility] [address] [place] [phone]- [facility] Attending Physician: Ivonne Fontaine MD Admitting Physician: [...] pneumococcal 23-valent vaccine3 11/22/10 Given 1Result Comment: [facility] [phone] Comment: [10/01/2015] per [id number] Comment: vis given Medications albuterol CFC free 90 mcg/inh inhalation aerosol 2, puffs, Inhalation, Every 4 hours, PRN, # 18 Gm, Refills 0, Tot. Refills 0, Maintenance, 06/10/19 9:01:00 EST, Aerosol, Route to Pharmacy Electronically, [id number], [facility] - , 165, cm, 06/05/19 13... Start Date: 06/10/19 Stop Date: 07/10/19 Status: Orderedaspirin 81 mg oral delayed release tablet 81 mg, 1, tablet, By Mouth, Daily, do not crush or chew, # 30 tablet, Refills 11, Tot. Refills 11, Maintenance, 08/01/18 12:28:09 EST, Route to Pharmacy Electronically, [id number], [facility] - Start Date: 08/01/18 Status: Orderedatorvastatin 80 mg oral tablet 1 tablet = 80 mg, By Mouth, Daily, # 90 tablet, 4 Refills, Maintenance, 06/05/19 14:25:00 EST, Tablet, [facility], 165, cm, 06/05/19 13:45:00 EST, Height Start Date: 06/05/19 Status: OrderedBariatric seated walker Bariatric seated walker, See Instructions, # 1 each, Refills 0, Tot. Refills 0, Maintenance, Dx: Obesity, lethargy. Wt: 356 pounds., 04/02/17 11:26:17, Compound Start Date: 04/02/17 Status: OrderedBARIATRIC WHEELCHAIR BARIATRIC WHEELCHAIR, See Instructions, # 1 each, Refills 0, Tot. Refills 0, Maintenance, WITH FOOT RESTS. DX UNSTEADY GAIT, LENGTH OF NEED:LIFETIME [facility] [phone], 06/06/19 9:35:00 EST, Compound Start Date: 06/06/19 Status: OrderedBedpan See Instructions, # 1 each, [...] skin, # 360 Gm, 0 Refills, Maintenance, 07/27/18 11:30:38 EDT, Cream, 1 application Topically 3 [...] 13:48:00 EST, Dx E11.65, Compound, 165, cm, 02/... Start Date: 05/23/19 Status: OrderedFreestyle Lite Monitor See Instructions, # 1 each, Maintenance, Pt to check blood sugar 4x daily as directed for dx of E11.65, 04/01/19 11:22:22 EDT, Compound Start Date: 04/01/19 Status: OrderedFreestyle Lite Test Strips See Instructions, # 150 each, Refills 0, Tot. Refills 0, Maintenance, Use as instructed to test blood sugars before meals, at bedtime and as needed, 4- 5x/day. keep appointment for further refills, 06/20/19 17:38:00 EST, Dx E11.65, Compound, 165, cm, 0... Start Date: 06/20/19 Status: Orderedgabapentin 300 mg oral capsule 300 mg, 1, capsule, By Mouth, 3 times a day, # 270 capsule, Refills 0, Tot. Refills 0, Maintenance, 06/10/19 17:33:00 EST, Route to Pharmacy Electronically, [facility] [place], 165, cm, 06/05/19 13:45:00 EST, Height Start Date: 06/10/19 Status: OrderedGlucagon Emergency Kit See Instructions, # 1 kit, Maintenance, Use as instructed to treat severe low blood sugar reaction, 09/19/16 14:33:34, Dx E11.65, pt on insulin, Compound Start Date: 09/19/16 Status: OrderedHumalog Kwik Pen 100 units/mL subcutaneous injection See Instructions, inject up to 36 units 3 times daily with meals. for [id number], # 30 mL, 0 Refills, Maintenance, 04/01/19 11:21:31 EDT Start Date: 04/01/19 Status: Orderedhydrochlorothiazide-lisinopril 25 mg-20 mg oral tablet 1 tablet, By Mouth, Daily, # 90 tablet, 3 Refills, Maintenance, 06/05/19 14:24:00 EST, Tablet, [facility] - , 1 tablet By Mouth [...] food or milk, # 90 tablet, Refills 0, Tot. Refills 0, Acute 07/10/19 9:01:00 EST, Pain , Moderate, 06/10/19 9:01:00 EST, Route to Pharmacy Electronically, [facility]... Start Date: 06/10/19 Stop Date: 07/10/19 Status: OrderedLantus Solostar Pen 100 units/mL subcutaneous solution = 90 units, Subcutaneous Injection, Daily at bedtime, keep appointment on 06/13/19 for further refills, # 15 mL, 2 Refills, Maintenance, 06/05/19 14:21:00 EST, [facility] - , 165, cm, 06/05/19 13:45:00 EST, Height Start Date: 06/05/19 Status: Orderedlevothyroxine 0.2 mg oral tablet 1 tablet = 200 mcg, By Mouth, Daily, Labs and appt. needed for future refills, # 90 tablet, 0 Refills, Maintenance, 06/05/19 14:25:00 EST, Tablet, [facility] - , change in dose, 165, cm, 06/05/19 13:45:00 EST, Height Start Date: 06/05/19 Stop Date: 07/05/19 Status: Orderedloratadine 10 mg oral tablet 10 mg, 1, tablet, By Mouth, Daily, # 90 tablet, Refills 1, Tot. Refills 1, Maintenance, 06/17/19 11:16:00 EST, Route to Pharmacy Electronically, [facility] - , 165, cm, 06/05/19 13:45:00 EST, Height Start Date: 06/17/19 Stop Date: 12/14/19 Status: Orderedomeprazole 20 mg oral enteric coated capsule 1 capsule = 20 mg, By Mouth, Daily, take 1/2-1 hour before breakfast, # 30 capsule, 6 Refills, Maintenance, 03/21/19 13:55:13 EDT, EC Capsule Start Date: 03/21/19 Status: OrderedPen [place], 31 G x 8 mm BD Ultra Fine III See Instructions, # 120 each, Refills 0, Tot. Refills 0, Maintenance, Use to inject insulin up to 4xa day, E11.9, 10/18/18 15:22:00 EDT, Compound Start Date: 10/18/18 Status: OrderedPhysical Therapy Physical Therapy, See Instructions, # 1 each, Refills 0, Tot. Refills 0, Maintenance, DX:RIGHT ARM PAIN, 05/09/17 12:29:21, Compound Start Date: 05/09/17 Status: OrderedPROzac 20 mg oral capsule 60 mg, 3, capsule, By Mouth, Daily, Refills 0, Maintenance, 10/26/15 10:18:37 Start Date: 10/26/15 Status: OrderedSeated Walker Seated Walker, See Instructions, # 1 each, Refills 0, Tot. Refills 0, Maintenance, DX:obesity E66.9,03/23/17 11:53:54, Compound Start Date: 03/23/17 Status: OrderedShower Chair See Instructions, # 1 each, Refills 0, Tot. Refills 0, Maintenance, DX: Morbid Obesity,Chronic Knee pain, Chronic low back pain Length of need: lifetime HT: 165cm WT: 164.1kg, 02/26/18 10:15:33 EDT, Compound Start Date: 02/26/18 Status: OrderedShower Chair See Instructions, # 1 each, Maintenance, DX:morbid obesity and chronic low back pain E66.01,M54.5, 10/30/17 13:44:47 EDT, Compound Start Date: 10/30/17 Status: OrderedSuboxone 8 mg-2 mg sublingual film 2 each, Sublingual, Daily, # 6 each, 0 Refills, Maintenance, 07/16/16 15:34:37 Start Date: 07/16/16 Stop Date: 07/19/16 Status: Orderedtrazodone 150 mg oral tablet 1 [...] Active Hyperlipidemia(Confirmed) Active Hypertension(Confirmed) Active Hypothyroidism(Confirmed) Active Insomnia(Confirmed) Active Low back pain(Confirmed) Active Microalbuminuric diabetic Active nephropathy(Confirmed) Obesity(Confirmed) Active Narcotic dependence(Confirmed)2 Active Seasonal allergies(Confirmed) Active Tobacco abuse(Confirmed) Active Diabetes mellitus type 2 in Active obese(Confirmed) Unsteady gait(Confirmed) Active Uses walker(Confirmed) Active 1iin [id number] the Suboxone program Social History Social History Type Response Smoking Status Current every day smoker; Ty pe: Cigarettes; Other: 10 a day; entered on: 11/25/15 Sex Female
--- OUTSIDE RECORDS SUMMARY | 2022-05-26 16:41 | XMS_ITS | Continuity of Care Document ---
:1970 Author Organization [facility] Address [address] [place] [address]- Care Team Providers Name Role Phone Brooke CHILD CARE PROVIDER, Ray Mcleod Primary Care Physician [facility] [id number] Date(s): 07/29/20 - 08/28/20 [facility] [address] [place] [id number]- [place] Allergies, Adverse Reactions, Alerts Substance Reaction Severity [...] pneumococcal 23-valent vaccine3 11/22/10 Given 1Result Comment: [facility] [phone] Comment: [10/01/2015] per [id number] Comment: vis given Medications albuterol CFC free 90 mcg/inh inhalation aerosol 2, puffs, Inhalation, Every 4 hours, PRN, # 18 Gm, Refills 5, Tot. Refills 5, Maintenance, 07/11/20 11:29:00 EST, Aerosol, Route to Pharmacy Electronically, [id number], [facility], 158, cm, 04/07/20 15:28:... Start Date: 07/11/20 Stop Date: 01/07/21 Status: Orderedaspirin 81 mg oral delayed release tablet 81 mg, 1, tablet, By Mouth, Daily, do not crush or chew, # 30 tablet, Refills 11, Tot. Refills 11, Maintenance, 07/30/20 9:01:00 EST, Route to Pharmacy Electronically, [facility], 158, cm, 04/07/20 15:28:00 EST, Height, 161, kg, 06... Start Date: 07/30/20 Status: Orderedatorvastatin 80 mg oral tablet 1 tablet = 80 mg, By Mouth, Daily, # 90 tablet, 1 Refills, Maintenance, 05/25/20 16:29:00 EST, Tablet, [facility], 158, cm, 04/07/20 15:28:00 EST, Height, 161, kg, 11/10/19 18:44:00EDT, Dry Weight Start Date: 05/25/20 Status: OrderedBedpan See Instructions, # 1 each, [...] 13:16:00 EST, Supply Start Date: 07/12/20 Status: OrderedCeraVe topical cream 1 application, Topically, [...] 10/23/17 6:29:08, Tablet Start Date: 03/26/17 Status: OrderedDiapers See Instructions, # 1 each, Refills 11, Tot. Refills 11, Maintenance, Change 5 times daily Life long(99) Urinary Incontinence (R32) Size 45-58 , 07/26/20 11:37:00 EST, Supply Start Date: 07/26/20 Status: Orderedfluconazole 150 mg oral tablet 1 tablet = 150 mg, By Mouth, Once, May repeat after 72 hours, # 2 tablet, 0 Refills, Soft Stop, 04/07/20 16:10:00 EST, Tablet, [facility], 158, cm, 04/07/20 15:28:00 EST, Height, 161, kg, 11/10/19 18:44:00 EDT, Dry Weight Start Date: 04/07/20 Status: OrderedFreestyle Lancets See Instructions, # 150 [...] Maintenance, 01/05/2010:50:00 EDT, Route to Pharmacy Electronically, [facility], 158, cm, 11/25/19 17:19:00 EDT, Height, 161, kg, 11/10/19 18:44:00 EDT... Start Date: 01/06/20 Status: OrderedHEAVY DUTY WHEELCHAIR WITH FOOT REST [...] mL, 5 Refills, Maintenance, 08/26/20 16:38:00 EDT, [facility], 158, cm, 04/07/20 15:28:00 EST, Height, 161, kg, 11/10/19 18:44:0... Start Date: 08/26/20 Status: Orderedhydrochlorothiazide-lisinopril 25 mg-20 mg oral tablet 1 tablet, By Mouth, Daily, # 90 tablet, 0 Refills, Maintenance, 08/27/20 9:22:00 EDT, Tablet, [facility], Labs due for additional refills, 1 tablet By Mouth Daily,x90 days, 158, cm,04/07/20 15:28:00 EST, Height, 161, kg, 11/10/19... Start Date: 08/27/20 Stop Date: 11/25/20 Status: OrderedHydrocortisone 2.5% cream as 1:1 mix [...] 12:27:10 EST, Capsule Start Date: 08/01/18 Status: OrderedLantus Solostar Pen 100 units/mL subcutaneous solution See Instructions, Take 45 units twice daily. E11.65, # 30 mL, 5 Refills, Maintenance, 08/26/20 16:38:00 EDT, [facility], 158, cm, 04/07/20 15:28:00 EST, Height, 161, kg, 11/10/19 18:44:00 EDT, Dry Weight Start Date: 08/26/20 Status: Orderedlevothyroxine 0.2 mg oral tablet 1 tablet = 200 mcg, By Mouth, Daily, # 90 tablet, 1 Refills, Maintenance, 03/02/20 16:38:00 EDT, Tablet, [facility], 158, cm, 11/25/19 17:19:00 EDT, Height, 161, kg, 11/10/19 18:44:00 EDT, Dry Weight Start Date: 03/02/20 Stop Date: 08/29/20 Status: Orderedloratadine 10 mg oral tablet 10 mg, 1, tablet, By Mouth, Daily, # 90 tablet, Refills 1, Tot. Refills 1, Maintenance, 06/07/20 7:38:00 EST, Route to Pharmacy Electronically, [facility], 158, cm, 04/07/20 15:28:00 EST, Height, 161, kg, 11/10/19 18:44:00 EDT, Dry... Start Date: 06/07/20 Stop Date: 12/04/20 Status: Orderedomeprazole 20 mg oral enteric coated capsule 1 capsule = 20 mg, By Mouth, Daily, take 1/2-1 hour before breakfast, # 30 capsule, 2 Refills, Maintenance, 07/13/20 16:39:00 EST, EC Capsule, [facility], 158, cm, 04/07/20 15:28:00EST, Height, 161, kg, 11/10/19 18:44:00 EDT, Dry... Start Date: 07/13/20 Status: OrderedPen [place], 31 G x 8 mm BD Ultra Fine III See Instructions, # 200 each, Refills 11, Tot. Refills 11, Maintenance, Use to inject insulin up to 5x a day. E11.9, 08/26/20 16:39:00 EDT, Compound, 158, cm, 04/07/20 15:28:00 EST, Height, 161, kg, 11/10/19 18:44:00 EDT, Dry Weight Start Date: 08/26/20 Status: OrderedPROzac 20 mg oral capsule 60 [...] Unsteady gait(Confirmed) Active Uses walker(Confirmed) Active 1iin [id number] the Suboxone program Social History Social History Type Response Smoking Status Current every day smoker; Ty pe: Cigarettes; Other: 10 a day; entered on: 11/25/15 Sex Female
--- OUTSIDE RECORDS SUMMARY | 2022-05-26 16:41 | XMS_ITS | Continuity of Care Document ---
:1970 Author Organization [facility] Address [address] [place] [address]- Care Team Providers Name Role Phone Brooke JAVIER, Ray Mcleod Primary Care Physician Encounter [facility] [place] Date(s): 01/09/20 - 02/14/[address] [facility] [address] [place] [phone]- [facility] Attending Physician: Yusuf Fonseca MD Admitting Physician: Yusuf Fonseca MD Referring Physician: Ray Cox NP Allergies, [...] pneumococcal 23-valent vaccine3 11/22/10 Given 1Result Comment: [facility] [phone] Comment: [10/01/2015] per [id number] Comment: vis given Medications albuterol CFC free 90 mcg/inh inhalation aerosol 2, puffs, Inhalation, Every 4 hours, PRN, # 18 Gm, Refills 5, Tot. Refills 5, Maintenance, 01/13/20 11:29:00 EDT, Aerosol, Route to Pharmacy Electronically, [id number], [facility], 158, cm, 11/25/19 17:19:... Start Date: 01/13/20 Stop Date: 07/11/20 Status: Orderedaspirin 81 mg oral delayed release tablet 81 mg, 1, tablet, By Mouth, Daily, do not crush or chew, # 30 tablet, Refills 11, Tot. Refills 11, Maintenance, 08/13/19 11:18:00 EDT, Route to Pharmacy Electronically, [facility] -, 165, cm, 06/05/19 13:45:00 EST, Height Start Date: 08/13/19 Status: Orderedatorvastatin 80 mg oral tablet 1 tablet = 80 mg, By Mouth, Daily, # 90 tablet, 4 Refills, Maintenance, 06/05/19 14:25:00 EST, Tablet, [facility] - , 165, cm, 06/05/19 13:45:00 EST, Height Start Date: 06/05/19 Status: OrderedBARIATRIC WHEELCHAIR BARIATRIC WHEELCHAIR, See Instructions, # 1 each, Refills 0, Tot. Refills 0, Maintenance, WITH FOOT RESTS. DX UNSTEADY GAIT, LENGTH OF NEED:LIFETIME [address], 08/04/19 15:18:00 EST, Compound Start Date: 08/04/19 [...] 13:48:00 EST, Dx E11.65, Compound, 165, cm, 02... Start Date: 05/23/19 Status: OrderedFreestyle Lite Monitor [...] Maintenance, 01/05/2010:50:00 EDT, Route to Pharmacy Electronically, [facility], 158, cm, 11/25/19 17:19:00 EDT, Height, 161, kg, 11/10/19 18:44:00 EDT... Start Date: 01/06/20 Status: OrderedHumalog Kwik Pen 100 units/mL subcutaneous injection See Instructions, Max daily dose 70 units, take per sliding scale from office 3 times daily with meals. E11.65, # 30 mL, 5 Refills, Maintenance, 10/22/19 15:40:00 EDT, [facility], 165, cm, 06/05/19 13:45:00 EST, Height Start Date: 10/22/19 Status: Orderedhydrochlorothiazide-lisinopril 25 mg-20 mg oral tablet 1 tablet, By Mouth, Daily, # 90 tablet, 3 Refills, Maintenance, 06/05/19 14:24:00 EST, Tablet, [facility] - Ho, 1 tablet By Mouth [...] 01/26/20 15:33:00 EDT, Route to Pharmacy Electronically, [facility] Start Date: 01/26/20 Stop Date: 07/24/20 Status: OrderedLantus Solostar Pen 100 units/mL subcutaneous solution See Instructions, Take 35 units twice daily. E11.65, # 30 mL, 5 Refills, Maintenance, 10/22/19 15:41:00 EDT, [facility], 165, cm, 06/05/19 13:45:00 EST, Height Start Date: 10/22/19 Status: Orderedlevothyroxine 0.2 mg oral tablet 1 tablet = 200 mcg, By Mouth, Daily, Labs needed prior to refills 09/04/2019. See 09/03 msg., # 90 tablet, 1 Refills, Maintenance, 09/04/19 16:38:00 EDT, Tablet, [facility], change in dose, 165, cm, 06/05/19 13:45:00 EST, Height Start Date: 09/04/19 Stop Date: 03/02/20 Status: Orderedloratadine 10 mg oral tablet 10 mg, 1, tablet, By Mouth, Daily, # 90 tablet, Refills 1, Tot. Refills 1, Maintenance, 12/09/19 9:24:00 EDT, Route to Pharmacy Electronically, [facility], 158, cm, 11/25/19 17:19:00 EDT, Height, 161, kg, 11/10/19 18:44:00 EDT, Dry... Start Date: 12/09/19 Stop Date: 06/06/20 Status: Orderedomeprazole 20 mg oral enteric coated capsule 1 capsule = 20 mg, By Mouth, Daily, take 1/2-1 hour before breakfast, # 30 capsule, 2 Refills, Maintenance, 01/06/20 9:48:00 EDT, EC Capsule, [facility], 158, cm, 11/25/19 17:19:00 EDT, Height, 161, kg, 11/10/19 18:44:00 EDT, Dry W... Start Date: 01/06/20 Status: OrderedPen [place], 31 G x 8 mm BD Ultra [...] Unsteady gait(Confirmed) Active Uses walker(Confirmed) Active 1iin [id number] the Suboxone program Social History Social History Type Response Smoking Status Current every day smoker; Ty pe: Cigarettes; Other: 10 a day; entered on: 11/25/15 Sex Female
--- OUTSIDE RECORDS SUMMARY | 2022-05-26 16:41 | XMS_ITS | Continuity of Care Document ---
:1970 Author Organization [facility] Address [address] [place] [address]- Care Team Providers Name Role Phone Ray Cox NP Primary Care Physician [place] [facility] [place] Date(s): 08/15/19 - 03/21/[address] [phone]- [facility] Attending Physician: Ray Cox NP Admitting Physician: Ray Cox NP Referring Physician: Ray Cox NP Allergies, Adverse [...] pneumococcal 23-valent vaccine3 11/22/10 Given 1Result Comment: [facility] [phone] Comment: [10/01/2015] per [id number] Comment: vis given Medications albuterol CFC free 90 mcg/inh inhalation aerosol 2, puffs, Inhalation, Every 4 hours, PRN, # 18 Gm, Refills 5, Tot. Refills 5, Maintenance, 01/13/20 11:29:00 EDT, Aerosol, Route to Pharmacy Electronically, [id number], [facility], 158, cm, 11/25/19 17:19:... Start Date: 01/13/20 Stop Date: 07/11/20 Status: Orderedaspirin 81 mg oral delayed release tablet 81 mg, 1, tablet, By Mouth, Daily, do not crush or chew, # 30 tablet, Refills 11, Tot. Refills 11, Maintenance, 08/13/19 11:18:00 EDT, Route to Pharmacy Electronically, [facility] -, 165, cm, 06/05/19 13:45:00 EST, Height Start Date: 08/13/19 Status: Orderedatorvastatin 80 mg oral tablet 1 tablet = 80 mg, By Mouth, Daily, # 90 tablet, 4 Refills, Maintenance, 06/05/19 14:25:00 EST, Tablet, [facility] - , 165, cm, 06/05/19 13:45:00 EST, Height Start Date: 06/05/19 Status: OrderedBARIATRIC WHEELCHAIR BARIATRIC WHEELCHAIR, See Instructions, # 1 each, Refills 0, Tot. Refills 0, Maintenance, WITH FOOT RESTS. DX UNSTEADY GAIT, LENGTH OF NEED:LIFETIME [address], 08/04/19 15:18:00 EST, Compound Start Date: 08/04/19 [...] Maintenance, 01/05/2010:50:00 EDT, Route to Pharmacy Electronically, [facility], 158, cm, 11/25/19 17:19:00 EDT, Height, 161, kg, 11/10/19 18:44:00 EDT... Start Date: 01/06/20 Status: OrderedHumalog Kwik Pen 100 units/mL subcutaneous injection See Instructions, Max daily dose 70 units, take per sliding scale from office 3 times daily with meals. E11.65, # 30 mL, 5 Refills, Maintenance, 10/22/19 15:40:00 EDT, [facility], 165, cm, 06/05/19 13:45:00 EST, Height Start Date: 10/22/19 Status: Orderedhydrochlorothiazide-lisinopril 25 mg-20 mg oral tablet 1 tablet, By Mouth, Daily, # 90 tablet, 3 Refills, Maintenance, 06/05/19 14:24:00 EST, Tablet, [facility] - Ho, 1 tablet By Mouth [...] 01/26/20 15:33:00 EDT, Route to Pharmacy Electronically, [facility] Start Date: 01/26/20 Stop Date: 07/24/20 Status: OrderedLantus Solostar Pen 100 units/mL subcutaneous solution See Instructions, Take 35 units twice daily. E11.65, # 30 mL, 5 Refills, Maintenance, 10/22/19 15:41:00 EDT, [facility], 165, cm, 06/05/19 13:45:00 EST, Height Start Date: 10/22/19 Status: Orderedlevothyroxine 0.2 mg oral tablet 1 tablet = 200 mcg, By Mouth, Daily, # 90 tablet, 1 Refills, Maintenance, 03/02/20 16:38:00 EDT, Tablet, [facility], 158, cm, 11/25/19 17:19:00 EDT, Height, 161, kg, 11/10/19 18:44:00 EDT, Dry Weight Start Date: 03/02/20 Stop Date: 08/29/20 Status: Orderedloratadine 10 mg oral tablet 10 mg, 1, tablet, By Mouth, Daily, # 90 tablet, Refills 1, Tot. Refills 1, Maintenance, 12/09/19 9:24:00 EDT, Route to Pharmacy Electronically, [facility], 158, cm, 11/25/19 17:19:00 EDT, Height, 161, kg, 11/10/19 18:44:00 EDT, Dry... Start Date: 12/09/19 Stop Date: 06/06/20 Status: Orderedomeprazole 20 mg oral enteric coated capsule 1 capsule = 20 mg, By Mouth, Daily, take 1/2-1 hour before breakfast, # 30 capsule, 2 Refills, Maintenance, 01/06/20 9:48:00 EDT, EC Capsule, [facility], 158, cm, 11/25/19 17:19:00 EDT, Height, 161, kg, 11/10/19 18:44:00 EDT, Dry W... Start Date: 01/06/20 Status: OrderedPen [place], 31 G x 8 mm BD Ultra [...] Unsteady gait(Confirmed) Active Uses walker(Confirmed) Active 1iin [id number] the Suboxone program Social History Social History Type Response Smoking Status Current every day smoker; Ty pe: Cigarettes; Other: 10 a day; entered on: 11/25/15 Sex Female
--- OUTSIDE RECORDS SUMMARY | 2022-05-26 16:41 | XMS_ITS | Continuity of Care Document ---
:1970 Author Organization [facility] Address [address] [place] [address]- Care Team Providers Name Role Phone Brooke DIRECTOR OF EVENT SALES, Ray Mcleod Primary Care Physician Encounter [facility] [place] Date(s): 09/03/20 - 10/03/20 [facility] [address] [place] [address]- Allergies, Adverse Reactions, Alerts Substance Reaction Severity [...] pneumococcal 23-valent vaccine3 11/22/10 Given 1Result Comment: [facility] [phone] Comment: [10/01/2015] per [id number] Comment: vis given Medications albuterol CFC free 90 mcg/inh inhalation aerosol 2, puffs, Inhalation, Every 4 hours, PRN, # 18 Gm, Refills 5, Tot. Refills 5, Maintenance, 07/11/20 11:29:00 EST, Aerosol, Route to Pharmacy Electronically, [id number], [facility], 158, cm, 04/07/20 15:28:... Start Date: 07/11/20 Stop Date: 01/07/21 Status: Orderedaspirin 81 mg oral delayed release tablet 81 mg, 1, tablet, By Mouth, Daily, do not crush or chew, # 30 tablet, Refills 11, Tot. Refills 11, Maintenance, 07/30/20 9:01:00 EST, Route to Pharmacy Electronically, [facility], 158, cm, 04/07/20 15:28:00 EST, Height, 161, kg, 06... Start Date: 07/30/20 Status: Orderedatorvastatin 80 mg oral tablet 1 tablet = 80 mg, By Mouth, Daily, # 90 tablet, 1 Refills, Maintenance, 05/25/20 16:29:00 EST, Tablet, [facility], 158, cm, 04/07/20 15:28:00 EST, [...] Refills, Soft Stop, 04/07/20 16:10:00 EST, Tablet, [facility], 158, cm, 04/07/20 15:28:00 EST, [...] Maintenance, 09/03/2113:19:00 EDT, Route to Pharmacy Electronically, [facility], Resent from 09/02/20, 158, cm, 04/07/20 [...] mL, 5 Refills, Maintenance, 08/26/20 16:38:00 EDT, [facility], 158, cm, 04/07/20 15:28:00 EST, Height, 161, kg, 11/10/19 18:44:0... Start Date: 08/26/20 Status: Orderedhydrochlorothiazide-lisinopril 25 mg-20 mg oral tablet 1 tablet, By Mouth, Daily, # 90 tablet, 0 Refills, Maintenance, 08/27/20 9:22:00 EDT, Tablet, [facility], Labs due for additional refills, [...] tablet, Refills 5, Tot. Refills 5, Acute 03/02/21 15:34:00 EDT, Pain , Moderate, 09/03/20 15:34:00 EDT, Route to Pharmacy Electronically, [facility] Start Date: 09/03/20 Stop Date: 03/02/21 Status: OrderedLantus Solostar Pen 100 units/mL subcutaneous solution See Instructions, Take 45 units twice daily. E11.65, # 30 mL, 5 Refills, Maintenance, 08/26/20 16:38:00 EDT, [facility], 158, cm, 04/07/20 15:28:00 EST, Height, 161, kg, 11/10/19 18:44:00 EDT, Dry Weight Start Date: 08/26/20 Status: Orderedlevothyroxine 0.2 mg oral tablet 1 tablet = 200 mcg, By Mouth, Daily, # 90 tablet, 1 Refills, Maintenance, 09/02/20 8:56:00 EDT, Tablet, [facility], 158, cm, 04/07/20 15:28:00 EST, Height, 161, kg, 11/10/19 18:44:00 EDT, Dry Weight Start Date: 09/02/20 Stop Date: 03/01/21 Status: Orderedloratadine 10 mg oral tablet 10 mg, 1, tablet, By Mouth, Daily, # 90 tablet, Refills 1, Tot. Refills 1, Maintenance, 06/07/20 7:38:00 EST, Route to Pharmacy Electronically, [facility], 158, cm, 04/07/20 15:28:00 EST, Height, 161, kg, 11/10/19 18:44:00 EDT, Dry... Start Date: 06/07/20 Stop Date: 12/04/20 Status: Orderedomeprazole 20 mg oral enteric coated capsule 1 capsule = 20 mg, By Mouth, Daily, take 1/2-1 hour before breakfast, # 30 capsule, 2 Refills, Maintenance, 07/13/20 16:39:00 EST, EC Capsule, [facility], 158, cm, 04/07/20 15:28:00EST, Height, 161, kg, 11/10/19 18:44:00 EDT, Dry... Start Date: 07/13/20 Status: OrderedPen [place], 31 G x 8 mm BD Ultra [...] Unsteady gait(Confirmed) Active Uses walker(Confirmed) Active 1iin [id number] the Suboxone program Social History Social History Type Response Smoking Status Current every day smoker; Ty pe: Cigarettes; Other: 10 a day; entered on: 11/25/15 Sex Female
--- OUTSIDE RECORDS SUMMARY | 2022-05-26 16:41 | XMS_ITS | Continuity of Care Document ---
:1970 Author Organization [facility] Address [address] [place] [address]- Care Team Providers Name Role Phone Brooke RESEARCH CONSULTANT, Ray Mcleod Primary Care Physician [place] [facility] [place]20 [facility] [address] [place] [phone]- Allergies, Adverse Reactions, Alerts Substance Reaction Severity [...] pneumococcal 23-valent vaccine3 11/22/10 Given 1Result Comment: [facility] [phone] Comment: [10/01/2015] per [id number] Comment: vis given Medications albuterol CFC free 90 mcg/inh inhalation aerosol 2, puffs, Inhalation, Every 4 hours, PRN, # 18 Gm, Refills 5, Tot. Refills 5, Maintenance, 01/13/20 11:29:00 EDT, Aerosol, Route to Pharmacy Electronically, [id number], [facility], 158, cm, 11/25/19 17:19:... Start Date: 01/13/20 Stop Date: 07/11/20 Status: Orderedaspirin 81 mg oral delayed release tablet 81 mg, 1, tablet, By Mouth, Daily, do not crush or chew, # 30 tablet, Refills 11, Tot. Refills 11, Maintenance, 08/13/19 11:18:00 EDT, Route to Pharmacy Electronically, [facility] -, 165, cm, 06/05/19 13:45:00 EST, Height Start Date: 08/13/19 Status: Orderedatorvastatin 80 mg oral tablet 1 tablet = 80 mg, By Mouth, Daily, # 90 tablet, 4 Refills, Maintenance, 06/05/19 14:25:00 EST, Tablet, [facility] - , 165, cm, 06/05/19 13:45:00 EST, Height Start Date: 06/05/19 Status: OrderedBARIATRIC WHEELCHAIR WITH FOOT REST BARIATRIC WHEELCHAIR WITH FOOT REST, See Instructions, # 1 each, Refills 0, Tot. Refills 0, Maintenance, DX UNSTEADY GAIT (R26.81) JANE: LIFETIME (99), 04/30/20 13:57:00 EST, Compound Start Date: 04/30/20 Status: OrderedBedpan See Instructions, # 1 each, [...] 03/26/17 6:29:08, Tablet Start Date: 03/26/17 Status: Orderedfluconazole 150 mg oral tablet 1 tablet = 150 mg, By Mouth, Once, May repeat after 72 hours, # 2 tablet, 0 Refills, Soft Stop, 04/07/20 16:10:00 EST, Tablet, [facility], 158, cm, 04/07/20 15:28:00 EST, Height, [...] Maintenance, 01/05/2010:50:00 EDT, Route to Pharmacy Electronically, [facility], 158, cm, 11/25/19 17:19:00 EDT, Height, 161, kg, 11/10/19 18:44:00 EDT... Start Date: 01/06/20 Status: OrderedHumalog Kwik Pen 100 units/mL subcutaneous injection See Instructions, Max daily dose 70 units, take per sliding scale from office 3 times daily with meals. E11.65, # 30 mL, 5 Refills, Maintenance, 10/22/19 15:40:00 EDT, [facility], 165, cm, 06/05/19 13:45:00 EST, Height Start Date: 10/22/19 Status: Orderedhydrochlorothiazide-lisinopril 25 mg-20 mg oral tablet 1 tablet, By Mouth, Daily, # 90 tablet, 3 Refills, Maintenance, 06/05/19 14:24:00 EST, Tablet, [facility] - Ho, 1 tablet By Mouth [...] 01/26/20 15:33:00 EDT, Route to Pharmacy Electronically, [facility] Start Date: 01/26/20 Stop Date: 07/24/20 Status: OrderedLantus Solostar Pen 100 units/mL subcutaneous solution See Instructions, Take 35 units twice daily. E11.65, # 30 mL, 5 Refills, Maintenance, 10/22/19 15:41:00 EDT, [facility], 165, cm, 06/05/19 13:45:00 EST, Height Start Date: 10/22/19 Status: Orderedlevothyroxine 0.2 mg oral tablet 1 tablet = 200 mcg, By Mouth, Daily, # 90 tablet, 1 Refills, Maintenance, 03/02/20 16:38:00 EDT, Tablet, [facility], 158, cm, 11/25/19 17:19:00 EDT, Height, 161, kg, 11/10/19 18:44:00 EDT, Dry Weight Start Date: 03/02/20 Stop Date: 08/29/20 Status: Orderedloratadine 10 mg oral tablet 10 mg, 1, tablet, By Mouth, Daily, # 90 tablet, Refills 1, Tot. Refills 1, Maintenance, 12/09/19 9:24:00 EDT, Route to Pharmacy Electronically, [facility], 158, cm, 11/25/19 17:19:00 EDT, Height, 161, kg, 11/10/19 18:44:00 EDT, Dry... Start Date: 12/09/19 Stop Date: 06/06/20 Status: Orderedomeprazole 20 mg oral enteric coated capsule 1 capsule = 20 mg, By Mouth, Daily, take 1/2-1 hour before breakfast, # 30 capsule, 2 Refills, Maintenance, 04/21/20 10:02:00 EST, EC Capsule, [facility], 158, cm, 04/07/20 15:28:00EST, Height, 161, kg, 11/10/19 18:44:00 EDT, Dry... Start Date: 04/21/20 Status: OrderedPen [place], 31 G x 8 mm BD Ultra Fine III See Instructions, # 120 each, Refills 11, Tot. Refills 11, Maintenance, Use to inject insulin up to 4x a day, E11.9, 04/21/20 13:16:00 EST, Compound, 158, cm, 04/07/20 15:28:00 EST, Height, 161, kg, 11/10/19 18:44:00 EDT, Dry Weight Start Date: 04/21/20 Status: OrderedPROzac 20 mg oral capsule 60 [...] Unsteady gait(Confirmed) Active Uses walker(Confirmed) Active 1iin [id number] the Suboxone program Social History Social History Type Response Smoking Status Current every day smoker; Ty pe: Cigarettes; Other: 10 a day; entered on: 11/25/15 Sex Female
--- OUTSIDE RECORDS SUMMARY | 2022-05-26 16:42 | XMS_ITS | Continuity of Care Document ---
:1970 Author Organization [facility] Address [address] [place] [address]- Care Team Providers Name Role Phone Brooke DATA ENGINEER, Ray Mcleod Primary Care Physician Encounter [facility] [place](s): 08/09/21 - 09/08/21 [facility] [address] [place] [id number]- Allergies, Adverse Reactions, Alerts Substance Reaction Severity Status amoxicillin Active penicillin hives Persistent Moderate Active Latex hives Persistent Moderate Active Januvia Active Invokana Active metFORMIN Active Immunizations Given and Recorded Vaccine Date [...] H1N1, inactive(oldterm) 06/21/09 Recorde d 1Result Comment: [facility]: [id number] Comment: [facility] [phone] Comment: [10/01/2015] per [id number] Comment: vis given Medications Aspirin Low Dose 81 mg oral delayed release tablet 1 tablet, By Mouth, Daily, no CRUSH OR CHEW, # 30 tablet, 11 Refills, [facility], 158, cm, 04/29/21 11:38:00 EST, Height, 161, kg, 11/10/19 18:44:00 EDT, Dry Weight Start Date: 07/11/21 Status: Orderedatorvastatin 80 mg oral tablet 1 tablet, By Mouth, Daily, NEEDS LABS BEFORE NEXT REFILL, # 90 tablet, 1 Refills, Maintenance, 06/29/21 7:35:00 EST, [facility], 158, cm, 04/29/21 11:38:00 EST, [...] EST, Supply Start Date: 07/26/20 Status: OrderedFreeStyle [place] Lite kit FreeStyle [place] Lite kit, See Instructions, # 1 kit, [...] Dry Weight Start Date: 08/26/20 Status: Orderedgabapentin 600 mg oral tablet 1 tablet = 600 mg, By Mouth, 3 times a day, # 90 tablet, 5 Refills, Maintenance, 09/01/21 13:44:00 EDT, Tablet, [facility], Partial fill upon patient request [...] mL, 5 Refills, Maintenance, 08/31/21 13:03:00 EDT, [facility], 158, cm, 08/05/21 13:35:00 EST, Height, 161, kg, 11/10/19 18:44:0... Start Date: 08/31/21 Status: Orderedhydrochlorothiazide-lisinopril 25 mg-20 mg oral tablet 1 tablet, By Mouth, Daily, # 90 tablet, 1 Refills, Maintenance, 08/31/21 15:46:00 EDT, [facility], 90, 1 tablet By Mouth [...] tablet, Refills 5, Tot. Refills 5, Acute 06/14/22 11:48:00 EDT, Pain , Moderate, 05/19/21 11:48:00 EST, Route to Pharmacy Electronically, [facility]/pharmacy #[id number], 158, cm... Start Date: 05/19/21 Stop Date: 11/15/21 Status: OrderedLantus Solostar Pen 100 units/mL subcutaneous solution See Instructions, Take 54 units twice daily. E11.65, # 45 mL, 5 Refills, Maintenance, 03/21/21 19:37:00 EDT, [facility], 158, cm, 10/08/20 11:23:00 EDT, Height, 161, kg, 11/10/19 18:44:00 EDT, Dry Weight Start Date: 03/21/21 Status: Orderedlevothyroxine 0.2 mg oral tablet 1 tablet, By Mouth, Daily, # 90 tablet, 0 Refills, Maintenance, 06/29/21 7:35:00 EST, [facility], 158, cm, 04/29/21 11:38:00 EST, Height, 161, kg, 11/10/19 18:44:00 EDT, Dry Weight Start Date: 06/29/21 Stop Date: 09/27/21 Status: Orderedloratadine 10 mg oral tablet 1, tablet, By Mouth, Daily, # 90 tablet, Refills 1, Route to Pharmacy Electronically, [facility], 158, cm, 04/29/21 11:38:00 EST, Height, 161, kg, 11/10/19 18:44:00 EDT, Dry Weight Start Date: 05/13/21 Status: Orderedomeprazole 20 mg oral enteric coated capsule 1 capsule = 20 mg, By Mouth, 2 times a day, for 90 days, # 180 capsule, 6 Refills, Physician Stop 04/27/23 14:10:00 EST, 08/05/21 14:10:00 EST, [facility], 158, cm, 08/05/21 13:35:00 EST, Height, 161, kg, 11/10/19 18:44:00 EDT, Dry... Start Date: 08/05/21 Stop Date: 04/27/23 Status: OrderedPen [place], 31 G x 8 mm BD Ultra [...] Gm, Refills 5, Route to Pharmacy Electronically, [id number], [facility], 158, cm, 04/29/21 11:38:00 EST, [...] AT BEDTIME NEEDED Start Date: 08/05/21 Status: Ordered Problem List Condition Effective Dates [...] Active Insomnia(Confirmed) Active Low back pain(Confirmed) Active Microalbuminuria due to type 2 Active diabetes mellitus(Confirmed) Microalbuminuric diabetic Active nephropathy(Confirmed) Obesity(Confirmed) Active Narcotic dependence(Confirmed)2 Active Seasonal allergies(Confirmed) Active Severe obesity(Confirmed) Active Substance abuse(Confirmed) Active Tobacco abuse(Confirmed) Active Diabetes mellitus type 2 in Active obese(Confirmed) Unsteady gait(Confirmed) Active Uses walker(Confirmed) Active 1iin [id number] the Suboxone program Social History Social History Type Response Smoking Status 5-9 cigarettes (between 1/4 to 1/2 pack)/day in last 30 days entered on: 08/05/21 Sex Female
--- OUTSIDE RECORDS SUMMARY | 2022-05-26 16:42 | XMS_ITS | Continuity of Care Document ---
:1970 Author Organization [facility] Adult Address [address] [place] [address]- Care Team Providers Name Role Phone Brooke JAVIER, Ray Mcleod Primary Care Physician Encounter [facility] Date(s): 07/11/19 - 07/21/19 [facility] [address] [place] [phone]- [facility] Attending Physician: Ananth Herrera Admitting Physician: AdmAnanth peterson Referring Physician: AdmtrAnanth Allergies, Adverse Reactions, Alerts [...] pneumococcal 23-valent vaccine3 11/22/10 Given 1Result Comment: [facility] [phone] Comment: [10/01/2015] per [id number] Comment: vis given Medications albuterol CFC free 90 mcg/inh inhalation aerosol 2, puffs, Inhalation, Every 4 hours, PRN, # 18 Gm, Refills 0, Tot. Refills 0, Maintenance, 06/10/19 9:01:00 EST, Aerosol, Route to Pharmacy Electronically, [id number], [facility] - , 165, cm, 06/05/19 13... Start Date: 06/10/19 Stop Date: 07/10/19 Status: Orderedaspirin 81 mg oral delayed release tablet 81 mg, 1, tablet, By Mouth, Daily, do not crush or chew, # 30 tablet, Refills 11, Tot. Refills 11, Maintenance, 08/01/18 12:28:09 EST, Route to Pharmacy Electronically, [id number], [facility] - Start Date: 08/01/18 Status: Orderedatorvastatin 80 mg oral tablet 1 tablet = 80 mg, By Mouth, Daily, # 90 tablet, 4 Refills, Maintenance, 06/05/19 14:25:00 EST, Tablet, [facility] - , 165, cm, 06/05/19 13:45:00 [...] RESTS. DX UNSTEADY GAIT, LENGTH OF NEED:LIFETIME [place] [address], 06/06/19 9:35:00 EST, Compound Start Date: 06/06/19 [...] 06/10/19 17:33:00 EST, Route to Pharmacy Electronically, [facility] [place], 165, cm, 06/05/19 13:45:00 [...] units 3 times daily with meals. for [id number], # 30 mL, 0 Refills, Maintenance, 04/01/19 11:21:31 EDT Start Date: 04/01/19 Status: Orderedhydrochlorothiazide-lisinopril 25 mg-20 mg oral tablet 1 tablet, By Mouth, Daily, # 90 tablet, 3 Refills, Maintenance, 06/05/19 14:24:00 EST, Tablet, [facility] - , 1 tablet By Mouth [...] tablet, Refills 0, Tot. Refills 0, Acute 08/09/19 17:05:00 EST, Pain , Moderate, 07/10/19 17:05:00 EST, Route to Pharmacy Electronically, [facility] Start Date: 07/10/19 Stop Date: 08/09/19 Status: OrderedLantus Solostar Pen 100 units/mL subcutaneous solution = 90 units, Subcutaneous Injection, Daily at bedtime, keep appointment on 06/13/19 for further refills, # 15 mL, 2 Refills, Maintenance, 06/05/19 14:21:00 EST, [facility] - , 165, cm, 06/05/19 13:45:00 EST, Height Start Date: 06/05/19 Status: Orderedlevothyroxine 0.2 mg oral tablet 1 tablet = 200 mcg, By Mouth, Daily, Labs and appt. needed for future refills, # 90 tablet, 0 Refills, Maintenance, 06/05/19 14:25:00 EST, Tablet, [facility] - , change in dose, 165, cm, 06/05/19 13:45:00 EST, Height Start Date: 06/05/19 Stop Date: 07/05/19 Status: Orderedloratadine 10 mg oral tablet 10 mg, 1, tablet, By Mouth, Daily, # 90 tablet, Refills 1, Tot. Refills 1, Maintenance, 06/17/19 11:16:00 EST, Route to Pharmacy Electronically, [facility] - , 165, cm, 06/05/19 13:45:00 EST, Height Start Date: 06/17/19 Stop Date: 12/14/19 Status: Orderedomeprazole 20 mg oral enteric coated capsule 1 capsule = 20 mg, By Mouth, Daily, take 1/2-1 hour before breakfast, # 30 capsule, 6 Refills, Maintenance, 03/21/19 13:55:13 EDT, EC Capsule Start Date: 03/21/19 Status: OrderedPen [place], 31 G x 8 mm BD Ultra [...] Unsteady gait(Confirmed) Active Uses walker(Confirmed) Active 1iin [id number] the Suboxone program Social History Social History Type Response Smoking Status Current every day smoker; Ty pe: Cigarettes; Other: 10 a day; entered on: 11/25/15 Sex Female
--- OUTSIDE RECORDS SUMMARY | 2022-05-26 16:42 | XMS_ITS | Continuity of Care Document ---
:1970 Author Organization [facility] Adult Address [address] [place] [address]- Care Team Providers Name Role Phone Brooke JAVIER, Ray Mcleod Primary Care Physician [facility]counter [facility] Date(s): 12/09/19 - 01/08/20 [facility] [address] [place] [phone]- [facility] Allergies, Adverse Reactions, Alerts Substance Reaction Severity [...] 23-valent vaccine3 11/22/10 Given 1Result Comment: [facility] [phone] Comment: [10/01/2015] per [id number] Comment: vis given Medications albuterol CFC free 90 mcg/inh inhalation aerosol 2, puffs, Inhalation, Every 4 hours, PRN, # 18 Gm, Refills 5, Tot. Refills 5, Maintenance, 09/23/19 15:56:00 EDT, Aerosol, Route to Pharmacy Electronically, [id number], [facility], 165, cm, 06/05/19 13:45:... Start Date: 09/23/19 Stop Date: 03/21/20 Status: Orderedaspirin 81 mg oral delayed release tablet 81 mg, 1, tablet, By Mouth, Daily, do not crush or chew, # 30 tablet, Refills 11, Tot. Refills 11, Maintenance, 08/13/19 11:18:00 EDT, Route to Pharmacy Electronically, [facility], 165, cm, 06/05/19 13:45:00 EST, Height Start Date: 08/13/19 Status: Orderedatorvastatin 80 mg oral tablet 1 tablet = 80 mg, By Mouth, Daily, # 90 tablet, 4 Refills, Maintenance, 06/05/19 14:25:00 EST, Tablet, [facility] [place], 165, cm, 06/05/19 13:45:00 EST, Height Start Date: 06/05/19 Status: OrderedBARIATRIC WHEELCHAIR BARIATRIC WHEELCHAIR, See Instructions, # 1 each, Refills 0, Tot. Refills 0, Maintenance, WITH FOOT RESTS. DX UNSTEADY GAIT, LENGTH OF NEED:LIFETIME [facility] [address], 08/04/19 15:18:00 EST, Compound Start Date: 08/04/19 [...] Maintenance, 01/05/2010:50:00 EDT, Route to Pharmacy Electronically, [facility], 158, cm, 11/25/19 17:19:00 EDT, Height, 161, kg, 11/10/19 18:44:00 EDT... Start Date: 01/06/20 Status: OrderedHumalog Kwik Pen 100 units/mL subcutaneous injection See Instructions, Max daily dose 70 units, take per sliding scale from office 3 times daily with meals. E11.65, # 30 mL, 5 Refills, Maintenance, 10/22/19 15:40:00 EDT, [facility], 165, cm, 06/05/19 13:45:00 EST, Height Start Date: 10/22/19 Status: Orderedhydrochlorothiazide-lisinopril 25 mg-20 mg oral tablet 1 tablet, By Mouth, Daily, # 90 tablet, 3 Refills, Maintenance, 06/05/19 14:24:00 EST, Tablet, [facility], 1 tablet [...] 08/04/19 14:12:00 EST, Route to Pharmacy Electronically, [facility] Start Date: 08/04/19 Stop Date: 01/31/20 Status: OrderedLantus Solostar Pen 100 units/mL subcutaneous solution See Instructions, Take 35 units twice daily. E11.65, # 30 mL, 5 Refills, Maintenance, 10/22/19 15:41:00 EDT, [facility], 165, cm, 06/05/19 13:45:00 EST, Height Start Date: 10/22/19 Status: Orderedlevothyroxine 0.2 mg oral tablet 1 tablet = 200 mcg, By Mouth, Daily, Labs needed prior to refills 09/04/2019. See 09/03 msg., # 90 tablet, 1 Refills, Maintenance, 09/04/19 16:38:00 EDT, Tablet, [facility], change in dose, 165, cm, 06/05/19 13:45:00 EST, Height Start Date: 09/04/19 Stop Date: 03/02/20 Status: Orderedloratadine 10 mg oral tablet 10 mg, 1, tablet, By Mouth, Daily, # 90 tablet, Refills 1, Tot. Refills 1, Maintenance, 12/09/19 9:24:00 EDT, Route to Pharmacy Electronically, [facility], 158, cm, 11/25/19 17:19:00 EDT, Height, 161, kg, 11/10/19 18:44:00 EDT, Dry... Start Date: 12/09/19 Stop Date: 06/06/20 Status: Orderedomeprazole 20 mg oral enteric coated capsule 1 capsule = 20 mg, By Mouth, Daily, take 1/2-1 hour before breakfast, # 30 capsule, 2 Refills, Maintenance, 01/06/20 9:48:00 EDT, EC Capsule, [facility], 158, cm, 11/25/19 17:19:00 EDT, Height, 161, kg, 11/10/19 18:44:00 EDT, Dry W... Start Date: 01/06/20 Status: OrderedPen [place], 31 G x 8 mm BD Ultra [...] Unsteady gait(Confirmed) Active Uses walker(Confirmed) Active 1iin [id number] the Suboxone program Social History Social History Type Response Smoking Status Current every day smoker; Ty pe: Cigarettes; Other: 10 a day; entered on: 11/25/15 Sex Female
--- OUTSIDE RECORDS SUMMARY | 2022-05-26 16:42 | XMS_ITS | Continuity of Care Document ---
:1970 Author Organization [facility] Address [address] [place] [address]- Care Team Providers Name Role Phone Brooke JAVIER, Ray Mcleod Primary Care Physician Encounter [facility] Date(s): 11/11/19 - 12/13/19 [facility] [address] [place] [address]- [facility] Attending Physician: Billy CRUZ, [facility] Allergies, Adverse Reactions, Alerts Substance Reaction Severity [...] pneumococcal 23-valent vaccine3 11/22/10 Given 1Result Comment: [facility] [phone] Comment: [10/01/2015] per [id number] Comment: vis given Medications albuterol CFC free 90 mcg/inh inhalation aerosol 2, puffs, Inhalation, Every 4 hours, PRN, # 18 Gm, Refills 5, Tot. Refills 5, Maintenance, 09/23/19 15:56:00 EDT, Aerosol, Route to Pharmacy Electronically, [id number], [facility], 165, cm, 06/05/19 13:45:... Start Date: 09/23/19 Stop Date: 03/21/20 Status: Orderedaspirin 81 mg oral delayed release tablet 81 mg, 1, tablet, By Mouth, Daily, do not crush or chew, # 30 tablet, Refills 11, Tot. Refills 11, Maintenance, 08/13/19 11:18:00 EDT, Route to Pharmacy Electronically, [facility], 165, cm, 06/05/19 13:45:00 EST, Height Start Date: 08/13/19 Status: Orderedatorvastatin 80 mg oral tablet 1 tablet = 80 mg, By Mouth, Daily, # 90 tablet, 4 Refills, Maintenance, 06/05/19 14:25:00 EST, Tablet, [facility] - , 165, cm, 06/05/19 13:45:00 EST, Height Start Date: 06/05/19 Status: OrderedBARIATRIC WHEELCHAIR BARIATRIC WHEELCHAIR, See Instructions, # 1 each, Refills 0, Tot. Refills 0, Maintenance, WITH FOOT RESTS. DX UNSTEADY GAIT, LENGTH OF NEED:LIFETIME [address], 08/04/19 15:18:00 EST, Compound Start Date: 08/04/19 [...] 10/22/19 Status: Orderedgabapentin 300 mg oral capsule 300 mg, 1, capsule, By Mouth, 3 times a day, # 270 capsule, Refills 0, Tot. Refills 0, Maintenance, 12/08/19 9:44:00 EDT, Route to Pharmacy Electronically, [facility], 158, cm, 11/25/19 17:19:00 EDT, Height, 161, kg, 11/10/19 18:44... Start Date: 12/08/19 Status: OrderedHumalog Kwik Pen 100 units/mL subcutaneous injection See Instructions, Max daily dose 70 units, take per sliding scale from office 3 times daily with meals. E11.65, # 30 mL, 5 Refills, Maintenance, 10/22/19 15:40:00 EDT, [facility], 165, cm, 06/05/19 13:45:00 EST, Height Start Date: 10/22/19 Status: Orderedhydrochlorothiazide-lisinopril 25 mg-20 mg oral tablet 1 tablet, By Mouth, Daily, # 90 tablet, 3 Refills, Maintenance, 06/05/19 14:24:00 EST, Tablet, [facility], 1 tablet By [...] 08/04/19 14:12:00 EST, Route to Pharmacy Electronically, [facility] Start Date: 08/04/19 Stop Date: 01/31/20 Status: OrderedLantus Solostar Pen 100 units/mL subcutaneous solution See Instructions, Take 35 units twice daily. E11.65, # 30 mL, 5 Refills, Maintenance, 10/22/19 15:41:00 EDT, [facility], 165, cm, 06/05/19 13:45:00 EST, Height Start Date: 10/22/19 Status: Orderedlevothyroxine 0.2 mg oral tablet 1 tablet = 200 mcg, By Mouth, Daily, Labs needed prior to refills 09/04/2019. See 09/03 msg., # 90 tablet, 1 Refills, Maintenance, 09/04/19 16:38:00 EDT, Tablet, [facility], change in dose, 165, cm, 06/05/19 13:45:00 EST, Height Start Date: 09/04/19 Stop Date: 03/02/20 Status: Orderedloratadine 10 mg oral tablet 10 mg, 1, tablet, By Mouth, Daily, # 90 tablet, Refills 1, Tot. Refills 1, Maintenance, 12/09/19 9:24:00 EDT, Route to Pharmacy Electronically, [facility], 158, cm, 11/25/19 17:19:00 EDT, Height, 161, kg, 11/10/19 18:44:00 EDT, Dry... Start Date: 12/09/19 Stop Date: 06/06/20 Status: Orderedomeprazole 20 mg oral enteric coated capsule 1 capsule = 20 mg, By Mouth, Daily, take 1/2-1 hour before breakfast, # 30 capsule, 2 Refills, Maintenance, 10/06/19 14:57:00 EDT, EC Capsule, [facility], 165, cm, 06/05/19 13:45:00EST, Height Start Date: 10/06/19 Status: OrderedPen [place], 31 G x 8 mm BD Ultra [...] Unsteady gait(Confirmed) Active Uses walker(Confirmed) Active 1iin [id number] the Suboxone program Social History Social History Type Response Smoking Status Current every day smoker; Ty pe: Cigarettes; Other: 10 a day; entered on: 11/25/15 Sex Female
--- OUTSIDE RECORDS SUMMARY | 2022-05-26 16:42 | XMS_ITS | Continuity of Care Document ---
:1970 Author Organization [facility] Address [address] [place] [address]- Care Team Providers Name Role Phone Brooke [employer], Ray Mcleod Primary Care Physician Encounter [facility] [place] [place] Date(s): 04/30/20 - 05/30/20 [facility] [address] [place] [id number]- Allergies, Adverse Reactions, Alerts Substance Reaction Severity [...] 23-valent vaccine3 11/22/10 Given 1Result Comment: [facility] [phone] Comment: [10/01/2015] per [id number] Comment: vis given Medications albuterol CFC free 90 mcg/inh inhalation aerosol 2, puffs, Inhalation, Every 4 hours, PRN, # 18 Gm, Refills 5, Tot. Refills 5, Maintenance, 01/13/20 11:29:00 EDT, Aerosol, Route to Pharmacy Electronically, [id number], [facility], 158, cm, 11/25/19 17:19:... Start Date: 01/13/20 Stop Date: 07/11/20 Status: Orderedaspirin 81 mg oral delayed release tablet 81 mg, 1, tablet, By Mouth, Daily, do not crush or chew, # 30 tablet, Refills 11, Tot. Refills 11, Maintenance, 08/13/19 11:18:00 EDT, Route to Pharmacy Electronically, [facility], 165, cm, 06/05/19 13:45:00 EST, Height Start Date: 08/13/19 Status: Orderedatorvastatin 80 mg oral tablet 1 tablet = 80 mg, By Mouth, Daily, # 90 tablet, 1 Refills, Maintenance, 05/25/20 16:29:00 EST, Tablet, [facility], 158, cm, 04/07/20 15:28:00 EST, Height, 161, kg, 11/10/19 18:44:00EDT, Dry Weight Start Date: 05/25/20 Status: OrderedBARIATRIC WHEELCHAIR WITH FOOT REST BARIATRIC [...] Refills, Soft Stop, 04/07/20 16:10:00 EST, Tablet, [facility], 158, cm, 04/07/20 15:28:00 EST, [...] Maintenance, 01/05/2010:50:00 EDT, Route to Pharmacy Electronically, [facility], 158, cm, 11/25/19 17:19:00 EDT, Height, 161, kg, 11/10/19 18:44:00 EDT... Start Date: 01/06/20 Status: OrderedHumalog Kwik Pen 100 units/mL subcutaneous injection See Instructions, Max daily dose 70 units, take per sliding scale from office 3 times daily with meals. E11.65, # 30 mL, 5 Refills, Maintenance, 10/22/19 15:40:00 EDT, [facility], 165, cm, 06/05/19 13:45:00 EST, Height Start Date: 10/22/19 Status: Orderedhydrochlorothiazide-lisinopril 25 mg-20 mg oral tablet 1 tablet, By Mouth, Daily, # 90 tablet, 0 Refills, Maintenance, 05/25/20 16:29:00 EST, Tablet, [facility], 1 tablet By Mouth Daily, 158, cm, 04/07/20 15:28:00 EST, Height, 161, kg, 11/10/19 18:44:00 EDT, Dry Weight Start Date: 05/25/20 Status: OrderedHydrocortisone 2.5% cream as 1:1 mix [...] 01/26/20 15:33:00 EDT, Route to Pharmacy Electronically, [facility] Start Date: 01/26/20 Stop Date: 07/24/20 Status: OrderedLantus Solostar Pen 100 units/mL subcutaneous solution See Instructions, Take 35 units twice daily. E11.65, # 30 mL, 5 Refills, Maintenance, 10/22/19 15:41:00 EDT, [facility], 165, cm, 06/05/19 13:45:00 EST, Height Start Date: 10/22/19 Status: Orderedlevothyroxine 0.2 mg oral tablet 1 tablet = 200 mcg, By Mouth, Daily, # 90 tablet, 1 Refills, Maintenance, 03/02/20 16:38:00 EDT, Tablet, [facility], 158, cm, 11/25/19 17:19:00 EDT, Height, 161, kg, 11/10/19 18:44:00 EDT, Dry Weight Start Date: 03/02/20 Stop Date: 08/29/20 Status: Orderedloratadine 10 mg oral tablet 10 mg, 1, tablet, By Mouth, Daily, # 90 tablet, Refills 1, Tot. Refills 1, Maintenance, 12/09/19 9:24:00 EDT, Route to Pharmacy Electronically, [facility], 158, cm, 11/25/19 17:19:00 EDT, Height, 161, kg, 11/10/19 18:44:00 EDT, Dry... Start Date: 12/09/19 Stop Date: 06/06/20 Status: Orderedomeprazole 20 mg oral enteric coated capsule 1 capsule = 20 mg, By Mouth, Daily, take 1/2-1 hour before breakfast, # 30 capsule, 2 Refills, Maintenance, 04/21/20 10:02:00 EST, EC Capsule, [facility], 158, cm, 04/07/20 15:28:00EST, Height, 161, kg, 11/10/19 18:44:00 EDT, Dry... Start Date: 04/21/20 Status: OrderedPen [place], 31 G x 8 mm BD Ultra [...] Unsteady gait(Confirmed) Active Uses walker(Confirmed) Active 1iin [id number] the Suboxone program Social History Social History Type Response Smoking Status Current every day smoker; Ty pe: Cigarettes; Other: 10 a day; entered on: 11/25/15 Sex Female
--- OUTSIDE RECORDS SUMMARY | 2022-05-26 16:42 | XMS_ITS | Continuity of Care Document ---
:1970 Author Organization [facility] Address [address] [place] [address]- Care Team Providers Name Role Phone Ray Cox NP Primary Care Physician Encounter [facility] [place] Date(s): 09/15/21 - 09/22/21 [facility] [address] [place] [phone]- Attending Physician: Yenni Browning MD Referring Physician: Ray Cox NP Allergies, [...] H1N1, inactive(oldterm) 06/21/09 Recorde d 1Result Comment: NDC: [id number] Comment: [facility] [phone] Comment: [10/01/2015] per [id number] Comment: vis given Medications amLODIPine 5 mg oral tablet TAKE 1 TABLET BY MOUTH EVERY DAY Start Date: 09/15/21 Status: OrderedamLODIPine 5 mg oral tablet TAKE 1 TABLET BY MOUTH EVERY DAY Start Date: 09/15/21 Status: OrderedAspirin Low Dose 81 mg oral delayed release tablet 1 tablet, By Mouth, Daily, no CRUSH OR CHEW, # 30 tablet, 11 Refills, [facility], 158, cm, 04/29/21 11:38:00 EST, Height, 161, kg, 11/10/19 18:44:00 EDT, Dry Weight Start Date: 07/11/21 Status: Orderedatorvastatin 80 mg oral tablet 1 tablet, By Mouth, Daily, NEEDS LABS BEFORE NEXT REFILL, # 90 tablet, 1 Refills, Maintenance, 06/29/21 7:35:00 EST, [facility], 158, cm, 04/29/21 11:38:00 EST, [...] EST, Supply Start Date: 07/26/20 Status: OrderedFreeStyle [place] Lite kit FreeStyle [place] Lite kit, See Instructions, # 1 kit, [...] 5 Refills, Maintenance, 09/01/21 13:44:00 EDT, Tablet, [facility], Partial fill upon patient request [...] mL, 5 Refills, Maintenance, 08/31/21 13:03:00 EDT, [facility], 158, cm, 08/05/21 13:35:00 EST, [...] tablet, 1 Refills, Maintenance, 08/31/21 15:46:00 EDT, [facility], 90, 1 tablet By Mouth [...] 05/19/21 11:48:00 EST, Route to Pharmacy Electronically, [id number], 158, cm... Start Date: 05/19/21 Stop Date: 11/15/21 Status: OrderedLantus Solostar Pen 100 units/mL subcutaneous solution See Instructions, Take 54 units twice daily. E11.65, # 45 mL, 5 Refills, Maintenance, 03/21/21 19:37:00 EDT, [facility], 158, cm, 10/08/20 11:23:00 EDT, Height, 161, kg, 11/10/19 18:44:00 EDT, Dry Weight Start Date: 03/21/21 Status: Orderedlevothyroxine 0.2 mg oral tablet 1 tablet, By Mouth, Daily, # 90 tablet, 0 Refills, Maintenance, 06/29/21 7:35:00 EST, [facility], 158, cm, 04/29/21 11:38:00 EST, Height, 161, kg, 11/10/19 18:44:00 EDT, Dry Weight Start Date: 06/29/21 Stop Date: 09/27/21 Status: Orderedloratadine 10 mg oral tablet 1, tablet, By Mouth, Daily, # 90 tablet, Refills 1, Route to Pharmacy Electronically, [facility], 158, cm, 04/29/21 11:38:00 EST, Height, 161, kg, 11/10/19 18:44:00 EDT, Dry Weight Start Date: 05/13/21 Status: Orderedomeprazole 20 mg oral enteric coated capsule 1 capsule = 20 mg, By Mouth, 2 times a day, for 90 days, # 180 capsule, 6 Refills, Physician Stop 04/27/23 14:10:00 EST, 08/05/21 14:10:00 EST, [facility], 158, cm, 08/05/21 13:35:00 EST, Height, 161, kg, 11/10/19 18:44:00 EDT, Dry... Start Date: 08/05/21 Stop Date: 04/27/23 Status: Orderedpadded toilet seat padded toilet seat, See Instructions, # 1 each, Refills 0, Tot. Refills 0, Maintenance, dx: buttock sores, 09/19/21 11:23:00 EDT, Supply Start Date: 09/19/21 Status: OrderedPen [place], 31 G x 8 mm BD Ultra [...] Gm, Refills 5, Route to Pharmacy Electronically, [id number], [facility], 158, cm, 04/29/21 11:38:00 EST, [...] Unsteady gait(Confirmed) Active Uses walker(Confirmed) Active 1iin [id number] the Suboxone program Vital Signs Most recent to oldest [Reference Range]: 1 Height 158 cm (09/15/21 4:09 PM) Social History Social History Type Response Smoking Status 5-9 cigarettes (between 1/4 to 1/2 pack)/day in last 30 days entered on: 08/05/21 Sex Female
--- OUTSIDE RECORDS SUMMARY | 2022-05-26 16:42 | XMS_ITS | Continuity of Care Document ---
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 Attending Physician: AdmAnanth peterson Admitting Physician: AdmtrAnanth Referring Physician: Admtr Ar8 Allergies, Adverse Reactions, Alerts Substance Reaction Severity [...] pneumococcal 23-valent vaccine3 11/22/10 Given 1Result Comment: [facility] [phone] Comment: [10/01/2015] per [id number] Comment: vis given Medications albuterol CFC free 90 mcg/inh inhalation aerosol 2, puffs, Inhalation, Every 4 hours, PRN, # 18 Gm, Refills 0, Tot. Refills 0, Maintenance, 06/10/19 9:01:00 EST, Aerosol, Route to Pharmacy Electronically, [id number], [facility] - , 165, cm, 06/05/19 13... Start Date: 06/10/19 Stop Date: 07/10/19 Status: Orderedaspirin 81 mg oral delayed release tablet 81 mg, 1, tablet, By Mouth, Daily, do not crush or chew, # 30 tablet, Refills 11, Tot. Refills 11, Maintenance, 08/01/18 12:28:09 EST, Route to Pharmacy Electronically, [id number], [facility] - Start Date: 08/01/18 Status: Orderedatorvastatin 80 mg oral tablet 1 tablet = 80 mg, By Mouth, Daily, # 90 tablet, 4 Refills, Maintenance, 06/05/19 14:25:00 EST, Tablet, [facility] - , 165, cm, 06/05/19 [...] RESTS. DX UNSTEADY GAIT, LENGTH OF NEED:[facility] [id number], 06/06/19 9:35:00 EST, Compound Start Date: 06/06/19 [...] 06/10/19 17:33:00 EST, Route to Pharmacy Electronically, [facility] - [place], 165, cm, 06/05/19 [...] units 3 times daily with meals. for [id number], # 30 mL, 0 Refills, Maintenance, 04/01/19 11:21:31 EDT Start Date: 04/01/19 Status: Orderedhydrochlorothiazide-lisinopril 25 mg-20 mg oral tablet 1 tablet, By Mouth, Daily, # 90 tablet, 3 Refills, Maintenance, 06/05/19 14:24:00 EST, Tablet, [facility] - , 1 tablet By [...] 07/10/19 17:05:00 EST, Route to Pharmacy Electronically, [facility] Start Date: 07/10/19 Stop Date: 08/09/19 Status: OrderedLantus Solostar Pen 100 units/mL subcutaneous solution = 90 units, Subcutaneous Injection, Daily at bedtime, keep appointment on 06/13/19 for further refills, # 15 mL, 2 Refills, Maintenance, 06/05/19 14:21:00 EST, [facility] - , 165, cm, 06/05/19 13:45:00 EST, Height Start Date: 06/05/19 Status: Orderedlevothyroxine 0.2 mg oral tablet 1 tablet = 200 mcg, By Mouth, Daily, Labs and appt. needed for future refills, # 90 tablet, 0 Refills, Maintenance, 06/05/19 14:25:00 EST, Tablet, [facility] - , change in dose, 165, cm, 06/05/19 13:45:00 EST, Height Start Date: 06/05/19 Stop Date: 07/05/19 Status: Orderedloratadine 10 mg oral tablet 10 mg, 1, tablet, By Mouth, Daily, # 90 tablet, Refills 1, Tot. Refills 1, Maintenance, 06/17/19 11:16:00 EST, Route to Pharmacy Electronically, [facility] - , 165, cm, 06/05/19 13:45:00 EST, Height Start Date: 06/17/19 Stop Date: 12/14/19 Status: Orderedomeprazole 20 mg oral enteric coated capsule 1 capsule = 20 mg, By Mouth, Daily, take 1/2-1 hour before breakfast, # 30 capsule, 6 Refills, Maintenance, 03/21/19 13:55:13 EDT, EC Capsule Start Date: 03/21/19 Status: OrderedPen [place], 31 G x 8 [...] Unsteady gait(Confirmed) Active Uses walker(Confirmed) Active 1iin [id number] the Suboxone program Social History Social History Type Response Smoking Status Current every day smoker; Ty pe: Cigarettes; Other: 10 a day; entered on: 11/25/15 Sex Female
--- OUTSIDE RECORDS SUMMARY | 2022-05-26 16:42 | XMS_ITS | Continuity of Care Document ---
:1970 Author Organization [facility] Address [address] [place] [id number]- Care Team Providers Name Role Phone Henry CRUZ, Brenna Cadet Primary Care Physician [phone] [place] [facility] [place] - 05/15/[address] [address]- Encounter Diagnosis Hyperkalemia (Final) - 05/13/22 RADHIKA (acute kidney injury) (Final) - 05/13/22 [id number] hypoxic and hypercarbic respiratory failure (Final) - 05/13/22 Discharge Disposition: A-Transfer SNF Attending Physician: Jr Blank MD Admitting Physician: Apollo Alexander MD Referring Physician: Not on Staff, Referring MD Allergies, Adverse Reactions, Alerts Substance Reaction Severity [...] H1N1, inactive(oldterm) 06/21/09 Recorde d 1Result Comment: [facility]: [id number] Comment: [facility] [phone] Comment: [10/01/2015] per [id number] Comment: vis given Medications acetaminophen 325 mg oral tablet 650 mg, 2, tablet, By Mouth, Every 4 hours, PRN, Maintenance, as needed for fever/pain, 05/13/22 13:21:00 EST, Partial fill upon patient request if the prescription is for a schedule II opioid drug. Start Date: 05/13/22 Status: OrderedamLODIPine 5 mg oral tablet 1 tablet = 5 mg, By Mouth, Daily, Maintenance, 05/13/22 13:08:00 EST, Tablet, Partial fill upon patient request if the prescription is for a schedule II opioid drug. Start Date: 05/13/22 Status: OrderedamLODIPine 5 mg oral tablet 5 mg, Tablet, By Mouth, 05/15/22 9:00:00 EST Start Date: 05/15/22 Stop Date: 05/15/22 Status: CompletedAspirin Low Dose 81 mg oral delayed release tablet 1 tablet, By Mouth, Daily, no CRUSH OR CHEW, # 30 tablet, 11 Refills, [facility], 158, cm, 04/29/21 11:38:00 EST, Height, 161, kg, 11/10/19 18:44:00 EDT, Dry Weight Start Date: 07/11/21 Status: OrderedBedpan See Instructions, # 1 each, [...] mg, By Mouth, 3 times a day, Maintenance, 05/13/22 13:10:00 EST, Tablet, Partial fill upon patient request if the prescription is for a schedule II opioid drug. Start Date: 05/13/22 Status: OrderedDiapers See Instructions, # 1 each, Refills 11, Tot. Refills 11, Maintenance, Change 5 times daily Life long(99) Urinary Incontinence (R32) Size 45-58 , 07/26/20 11:37:00 EST, Supply Start Date: 07/26/20 Status: Ordereddoxycycline hyclate 100 mg oral tablet 1 tablet = 100 mg, By Mouth, 2 times a day, for 7 days, # 14 tablet, 0 Refills, Acute 05/22/22 10:33:00 EST, 05/15/22 10:33:00 EST, Tablet, Partial fill upon patient request if the prescription is for a schedule II opioid drug. Start Date: 05/15/22 Stop Date: 05/22/22 Status: OrderedDulcolax 10 mg rectal suppository 1 supp = 10 mg, Rectally, Daily, PRN as needed for constipation, Maintenance, 05/13/22 13:21:00 EST,Suppository, Partial fill upon patient request if the prescription is for a schedule II opioid drug. Start Date: 05/13/22 Status: OrderedFreeStyle Nephi Lite kit FreeStyle Nephi Lite kit, See Instructions, # 1 kit, [...] EDT, Dry Weight Start Date: 09/26/21 Status: Orderedgabapentin 600 mg oral tablet 1 tablet = 600 mg, By Mouth, 3 times a day, # 90 tablet, 5 Refills, Maintenance, 09/01/21 13:44:00 EDT, Tablet, [facility], Partial fill upon patient request [...] 13:09:00 EDT, Compound Start Date: 08/24/20 Status: Orderedinsulin aspart 100 units/mL subcutaneous solution 2-12 units, Subcutaneous Injection, 3 times a day after meals and bedtime, <150: zero insulin, 151-200: 2 units, 201-250: 4 units, 251-300: 6 units, 301-350: 8 units, > 350: 10 units & Call PCP if over 400, Maintenance, 05/13/22 13:27:00 EST, Partial... Start Date: 05/13/22 Status: OrderedlevoFLOXacin 750 mg oral tablet 1 tablet = 750 mg, By Mouth, Every 48 hours, # 5 tablet, 0 Refills, Maintenance, 05/15/22 10:33:00 EST, Tablet, Partial fill upon patient request if the prescription is for a schedule II opioid drug. Start Date: 05/15/22 Status: Orderedlevothyroxine 0.2 mg oral tablet 1 tablet = 200 mcg, By Mouth, Daily, Maintenance, 05/13/22 13:14:00 EST, Tablet, Partial fill upon patient request if the prescription is for a schedule II opioid drug. Start Date: 05/13/22 Status: Orderedlevothyroxine 75 mcg (0.075 mg) oral tablet 1 tablet = 75 mcg, By Mouth, Daily, Maintenance, 05/13/22 13:13:00 EST, Tablet, Partial fill upon patient request if the prescription is for a schedule II opioid drug. Start Date: 05/13/22 Status: Orderedloratadine 10 mg oral tablet 1, tablet, By Mouth, Daily, # 90 tablet, Refills 1, Route to Pharmacy Electronically, [facility], 158, cm, 10/14/21 14:09:00 EDT, Height, 161, kg, 11/10/19 18:44:00 EDT, Dry Weight Start Date: 11/04/21 Status: OrderedMilk of Magnesia 8% oral suspension 30 mL = 2.4 Gm, By Mouth, Daily, PRN for constipation, Maintenance, 05/13/22 13:26:00 EST, Suspension, Partial fill upon patient request if the prescription is for a schedule II opioid drug. Start Date: 05/13/22 Status: Orderedomeprazole 20 mg oral enteric coated capsule 1 capsule = 20 mg, By Mouth, 2 times a day, for 90 days, # 180 capsule, 6 Refills, Physician Stop 04/27/23 14:10:00 EST, 08/05/21 14:10:00 EST, [facility], 158, cm, 08/05/21 13:35:00 EST, Height, 161, kg, 11/10/19 18:44:00 EDT, Dry... Start Date: 08/05/21 Stop Date: 04/27/23 Status: Orderedpadded toilet seat padded toilet seat, See Instructions, # 1 each, Refills 0, Tot. Refills 0, Maintenance, dx: buttock sores, 09/19/21 11:23:00 EDT, Supply Start Date: 09/19/21 Status: OrderedProAir HFA 90 mcg/inh inhalation aerosol with adapter 2, puffs, Inhalation, Every 4 hours, PRN, # 8.5 Gm, Refills 5, Route to Pharmacy Electronically, [id number], [facility], 158, cm, 04/29/21 11:38:00 EST, Height, 161, kg, 11/10/19 18:44:00 EDT, Dry Weight Start Date: 05/19/21 Status: OrderedPROzac 20 mg oral capsule 60 mg, 3, capsule, By Mouth, Daily, Refills 0, Maintenance, 10/26/15 10:18:37 Start Date: 10/26/15 Status: OrderedSenna Plus 50 mg-8.6 mg oral tablet 2 tablet, By Mouth, 2 times a day, Maintenance, 05/13/22 13:17:00 EST, Tablet, Partial fill upon patient request if the prescription is for a schedule II opioid drug. Start Date: 05/13/22 Status: OrderedShower Chair See Instructions, # 1 each, Maintenance, Heavy duty shower chair Dx: Unsteady gait and abnormality of mobility Height 158cm Weight 161Kg, 05/12/20 13:37:00 EST, Compound, 158, cm, 04/07/20 15:28:00 EST, Height, 161, kg, 11/10/19 18:44:00 EDT, Dry W... Start Date: 05/12/20 Status: OrderedSuboxone 8 mg-2 mg sublingual film 1 film, Sublingual, Every 8 hours, dissolve under the tongue, 0 Refills, Maintenance, 04/29/21 13:28:00 EST, Film, Partial fill upon patient request if the prescription is for a schedule II opioid drug. Start Date: 04/29/21 Status: Orderedtiotropium 2.5 mcg/inh inhalation aerosol 2 puffs, Inhalation, Daily, Maintenance, 05/13/22 13:16:00 EST, Aerosol, Partial fill upon patient request if the prescription is for a schedule II opioid drug. Start Date: 05/13/22 Status: Orderedtopiramate 50 mg oral tablet 1 tablet = 50 mg, By Mouth, 2 times a day Start Date: 04/29/21 Status: OrderedtraZODone 100 mg oral tablet 200 mg, 2, tablet, By Mouth, Daily at bedtime Start Date: 05/13/22 Status: OrderedUlticare Pen Needle 31 gauge x 5/16 Ulticare Pen Needle 31 gauge x 5/16 , See Instructions, # 200 Unknown, 2 Refills, USE DIRECTED FIVE TIMES DAILY, 158, cm, 09/15/21 16:09:00 EDT, Height, 161, kg, 11/10/19 18:44:00 EDT, Dry Weight Start Date: 09/26/21 Status: Ordered Problem List Condition Confirmation Course Effective Dates Status Health I nformant Status Morbid obesity with Confirmed Active BMI of 50.0-59.9, adult Cervical radiculopathy Confirmed Active COPD (chronic Confirmed Active obstructive pulmonary disease) Chronic respiratory Confirmed Active failure COVID-19 Confirmed Active Depression Confirmed Active Diabetic neuropathy Confirmed Active Nephropathy, diabetic Confirmed Active Diabetic nephropathy Confirmed Active GERD (gastroesophageal Confirmed Active reflux disease) Heroin use1 Confirmed Active Hyperlipidemia Confirmed Active Hyperlipidemia Confirmed Active Hypertension Confirmed Active Hypothyroidism Confirmed Active Impaired mobility Confirmed Active Insomnia Confirmed Active Kidney stone Confirmed Active Low back pain Confirmed Active 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 Microalbuminuric Confirmed Active diabetic nephropathy Obesity Confirmed Active Narcotic dependence2 Confirmed Active Seasonal allergies Confirmed Active Substance abuse Confirmed Active Tobacco abuse Confirmed Active Diabetes mellitus type Confirmed Active 2 in obese Unsteady gait Confirmed Active Uses walker Confirmed Active 1iin [id number] the Suboxone program Results Orders for Microbiology Reports Name Date Blood Culture 05/13/22 Blood Culture #2 05/13/22 Microbiology Reports TEST:Blood Culture STATUS:Unauthenticated BODY SITE: SOURCE:Blood COLLECTED DATE/TIME:05/13/22 10:45 AMBlood Culture SPECIMEN DESCRIPTION : BLOOD L SPECIAL REQUESTS : NONE CULTURE : NO GROWTH AFTER 48 HOURS REPORT STATUS : PRELIMINARY REPORT TEST:Blood Culture, Second Order STATUS:Unauthenticated BODY SITE: SOURCE:Blood COLLECTED DATE/TIME:05/13/22 10:42 AMBlood Culture, Second Order SPECIMEN DESCRIPTION : BLOOD R SPECIAL REQUESTS : NONE CULTURE : NO GROWTH AFTER 48 HOURS REPORT STATUS : PRELIMINARY REPORT Radiology Reports Exam Date Time Procedure Performing Provider Status 05/13/22 12:[address] Angio Chest Colon , Rachel; Auth (Verifjuanjose d) Notes:(CT Angio Chest) Reason For Exam: PE suspected, Intermediate prob, positive D-dimer,;Other:RESULT: CT Angio Chest EXAMINATION: CT Angio Chest INDICATION: Hx of Present Illness: Pt arrives with AMS. 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 Staff suspect pt may have gotten fentanyl from visitor, pt also takes methadone.; Reason: Other:; PE suspected, Intermediate prob, positive D-dimer,; Clinical Question(s): Pulmonary Embolism; Order Comment: TECHNIQUE: Spiral CTA of the chest was performed after rapid IV contrast administration without cardiac gating, triggered by an VIDAL on the main pulmonary artery. Images are formatted in multiple planesusing 2-D multiplanar and 3-D maximum intensity projection. 100 cc of Omnipaque 300 was administered intravenously. Weight-based protocol using automatic tube modulation was used to optimize exposure parameters. CTDIvol Body: 30.40 mGy, DLP Body: 675 mGy*cm. COMPARISONS: CT chest from 04/17/2022 ANGIOGRAPHIC FINDINGS: Evaluation is severely limited by motion and incomplete opacification of the pulmonary arteries withcontrast. No pulmonary embolism. Evaluation of segmental and subsegmental pulmonary arteries heavily degraded.Borderline dilated main pulmonary artery measuring 30 mm. No acute aortic abnormality seen on this study performed without cardiac gating. NON-ANGIOGRAPHIC FINDINGS: Cold Roll Operator View Findings, Lines and Tubes: None. Trachea and Airways: Patent without evidence of tracheal or endobronchial lesion. Lungs and Pleura: * Suboptimal evaluation of the lungs due to poor inspiration. * The lungs are diffusely abnormal with a background of groundglass opacity with slight relative sparing of the anterior lungs and areas of curvilinear peribronchiolar consolidative opacity (601:100). Extensive confluent consolidative opacities in the lower lungs seen on 04/17/2022 are less dense and appear more groundglass in density (301:55 on current versus 206:50 on prior). There are newly apparent peribronchiolar/curvilinear consolidative opacities for example 302:152 and 601:100). * 10 mm solid nodule abutting the fissure in the right middle lobe (301:44) appears unchanged from 04/17/2022 * 7 mm nearby right middle lobe nodule along the fissure (301:44) also appears to be unchanged. * In the right upper lobe is a 10 mm contrast density rounded focus (601:120, 302:54), greater. It is difficult to connect this focus with a more proximal branch of the pulmonary artery or venous system. * No effusion or pneumothorax. Mediastinum and brian: No mass or hematoma. Right lower paratracheal node with fatty hilum measuring 11 mm (301:37), unchanged. 12 mm middle mediastinal node lateral to the main pulmonary artery (301:42) is unchanged. No esophageal abnormality. Heart: Mild cardiomegaly. No pericardial effusion. Mild coronary artery calcification. Chest Wall Soft Tissues: Normal. Diaphragm and upper abdomen: No significant abnormality. Bones: No acute abnormality. Mild spine degenerative changes. Severe degenerative changes of the right shoulder. IMPRESSION: Severely degraded exam due to suboptimal contrast timing and patient motion. No evidence of central pulmonary embolism. Segmental and subsegmental pulmonary emboli are difficult to exclude. The lungs remain diffusely abnormal. Compared to 04/17/2022 CT, there is persistent groundglass opacity throughout the lungs and slightly decreased density of consolidation involving the lower lungs. Some ill-defined more dense curvilinear consolidative opacities throughout both lungs are more pronounced since the previous exam. Appearance is favored to reflect evolving ARDS-related changes, which may have been brought on on the previous exam by infection. A 10 mm contrast density rounded focus in the right upper lobe is appreciated greater in caliber than the surrounding pulmonary vessels. It is difficult to connect this focus with a more proximal pulmonary artery or vein a pulmonary artery branch. A pulmonary artery pseudoaneurysm is a possible consideration. Two residual pulmonary nodules in the right middle lobe measuring up to 10 mm, are unchanged 04/17/2022. Follow-up CT in 3-6 months is recommended. Unchanged mediastinal lymphadenopathy, favored to be reactive. Findings communicated to Dr. Dolan at 13:16 on 05/13/2022. WSN: [id number] Ordering Physician: Emma Dolan Dictated By: David Pedraza MD Dictated Date/Time: 05/13/22 1:16 pm Reviewed By: David Pedraza MD Signed By: David Pedraza MD Signed Date/Time: 05/13/22 1:16 pm Transcribed By: NAIF Transcribed Date/Time: 05/13/22 12:45 pm Exam Date Time Procedure Performing Provider Status 05/13/22 12:[address] Head/Brain W/O Contrast Colon , Rachel; Au th (Verified) Notes:(CT Head/Brain W/O Contrast) Reason For Exam: ams;Other:RESULT: CT Head/Brain W/O Contrast CT Head/Brain W/O Contrast INDICATION: Hx of Present Illness: Pt arrives with AMS. 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 Staff suspect pt may have gotten fentanyl from visitor, pt also takes methadone.; Reason: Other:; ams; Clinical Question(s): Other: TECHNIQUE: Noncontrast head CT using axial technique and reconstructed in axial and coronal planes. Iterative reconstruction techniques are used to optimize dose and image quality. CTDIvol Head: 47.06 mGy, DLP Head: 1694 mGy*cm. COMPARISON: CT head from 12/15/2011 FINDINGS: Cold Roll Operator view findings, lines and tubes: None. BRAIN AND EXTRA-AXIAL SPACES: No parenchymal hemorrhage, midline shift, or mass effect. Vital-white matter differentiation is well preserved. No acute infarct. Ventricles, sulci, and basilar cisterns are normal. No white matter lesions. No subarachnoid hemorrhage. No subdural or epidural collection. CALVARIUM, SKULL BASE, AND SOFT TISSUES: No fractures or suspicious bony lesions. The paranasal sinuses and mastoid air cells are clear. Visualized orbits and globes are intact. The extracranial soft tissues are unremarkable. IMPRESSION: No acute intracranial pathology. WSN: [id number] Ordering Physician: Emma Dolan Dictated By: David Pedraza MD Dictated Date/Time: 05/13/22 12:37 p Reviewed By: David Pedraza MD Signed By: David Pedraza MD Signed Date/Time: 05/13/22 12:37 pm Transcribed By: NAIF Transcribed Date/Time: 05/13/22 12:33 pm Exam Date Time Procedure Performing Provider Status 05/13/22 10:13 AM Chest Portable Cassidy Singer; Denise (Haylee girard) Notes:(Chest Portable) Reason For Exam: CoughRESULT: Chest Portable Chest Portable Hx of Present Illness: Pt arrives with AMS. 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 Staff suspect pt may have gotten fentanyl from visitor, pt also takes methadone.; Reason: Cough; Clinical Question(s): Pneumonia COMPARISON: 04/19/2022 FINDINGS: LINES AND TUBES: None. LUNGS AND PLEURA: Low lung volumes. Diffuse almost confluent opacification of the lungs bilaterally. No pneumothorax. HEART, MEDIASTINUM AND BRIAN: Secured by adjacent pleural-parenchymal abnormality.. BONES AND SOFT TISSUES: No acute abnormality. IMPRESSION: Worsening diffuse airspace disease likely reflecting pulmonary edema superimposed on patient's chronic lung disease. Pneumonia cannot be excluded. WSN: [id number] Ordering Physician: Emma Dolan Dictated By: Rahul Martines MD Dictated Date/Time: 05/13/22 10:25 a Reviewed By: Rahul Martines MD Signed By: Rahul Martines MD Signed Date/Time: 05/13/22 10:25 am Transcribed By: NAIF Transcribed Date/Time: 05/13/22 10:22 am Vital Signs Most recent to oldest 1 2 3 [Reference Range]: Height 165 cm 165 cm (05/13/22 10:30 PM) (05/13/22 5:00 PM) Weight 173.7 kg 77.1 kg 169.5 kg (05/15/22 12:51 AM) (05/13/22 10:30 PM) ( 2 5:00 PM) Oxygen Saturation [94-100 85 % 94 % 95 % %] *L* (05/15/22 8:00 AM) (05/15/22 6:0 0 AM) (05/15/22 11:00 AM) Pulse Rate [55-90 bpm] 88 bpm 91 bpm 86 bpm (05/15/22 11:00 AM) *H* (05/14/22 12 :00 PM) (05/14/22 3:34 PM) Body Mass Index 28.32 kg/m2 62.26 kg/m2 [18.5-24.99 kg/m2] *H* *>HHI* (05/13/22 10:30 PM) (05/13/22 5:00 PM) Blood Pressure 157/80 mm Hg 120/62 mm Hg 120/62 mm Hg [90-138/55-84 mm Hg] *H* (05/15/22 10:02 AM) ( 8:00 AM) (05/15/22 11:00 AM) Respiratory Rate [16-30 20 br/min 12 br/min 13 br/mi n br/min] (05/15/22 11:00 AM) *L* *L* (05/15/22 8:00 AM) (05/15/22 6:0 0 AM) Temperature [96.8-100.4 98.5 DegF 98.4 DegF 98.2 Deg F DegF] (05/15/22 11:00 AM) (05/15/22 8:00 AM) (05/15/22 4:00 AM) Liters per Minute 2 L/min 2 L/min 2 L/min (05/15/22 11:00 AM) (05/15/22 2:00 AM) (05/15/22 12:00 AM) Mode of Delivery (Oxygen) Other: [facility] air Room a ir (05/15/22 11:00 AM) (05/15/22 8:00 AM) (05/15/22 6:00 AM) Blood pressure sites Arm, right Arm, right Arm, right (05/15/22 4:00 AM) (05/15/22 2:00 AM) (05/15/22 12:00 AM) Temperature Route Oral Oral Temporal (05/15/22 11:00 AM) (05/15/22 8:00 AM) (05/15/22 4:00 AM) Dry Weight 173.7 kg 77.1 kg 169.5 kg (05/15/22 12:51 AM) (05/13/22 10:30 PM) ( 2 5:00 PM) Weight Obtained Via Bed scale Bed scale Bed scale (05/15/22 12:51 AM) (05/13/22 5:00 PM) (05/13/22 4:00 PM) Dry Weight Obtained Via Bed scale Bed scale (05/15/22 12:51 AM) (05/13/22 5:00 PM) Social History Social History Type Response Smoking Status 5-9 cigarettes (between 1/4 to 1/2 pack)/day in last 30 days entered on: 08/05/21 Sex Female History and physical note MutJillian la MD: MODIFY, SIGN, MODIFY, SIGN, SIGN, MODIFY, PERFORM, MODIFY, SIGN, VERIFY Event Display: History and Physical Hospital Authored Date: Patient: PANFILO COLE Age: 51 years Sex: Female : 1970 Associated Diagnoses: None Author: Brianna CRUZ, Jillian Visit Information Chief Complaint: Unresponsiveness. History of Present Illness The pt is 51 yo F w pmhx of Chronic respiratory failure, Morbid Obesity w likely hypoventilation, COPD, Tobacco abuse, DM2 w triopathy, HTN, HLP, Hypothyroidism, narcotic dependancy of chronic LBP on Suboxone. She was sent from SNF after she was found to be unresponsive during scheduled blood glucose check. Her BG was 40 x 2. She was given OJ, IM Glucagon, follow pi POC was still only 70. She was arousable but was unable to engage and keep eyes open and she still is same way at this time. Her BP was also measured low at 80/40. She is unable to provide information. In ED she was found to have PCO2 of 62, K of 6.2, Creat of 2. She was put on BiPAP. She was given 15U Regular Insulin and Ca Gluconate 4.6 meq x 2, IV Dextrose x 2 due to persisting hypoglycemia, Naloxone 0.4 mg w/o a response. She received Bronchodilator treatment and Kayexalate 30 gm UT ordered but was not given yet. I renewed the order so it can be given. Repeat PCO2 showed 63. Still mentating poorly. Past Medical History Problem list All Problems Cervical radiculopathy / SNOMED CT 033425791 / Confirmed Chronic respiratory failure / SNOMED CT 42508992 / Confirmed COPD (chronic obstructive pulmonary disease) / SNOMED CT 04861608 / Confirmed COVID-19 / SNOMED CT 9494656390 / Confirmed Depression / SNOMED CT 38384815 / Confirmed Diabetes mellitus type 2 in obese / SNOMED CT 9298974042 / Confirmed Diabetic nephropathy / SNOMED CT 633022 / Confirmed Diabetic neuropathy / SNOMED CT 879253436 / Confirmed GERD (gastroesophageal reflux disease) / SNOMED CT 377161460 / Confirmed Heroin use / ICD-9-CM 305.50 / Confirmed iin remission Hyperlipidemia / SNOMED CT 45252381 / Confirmed Hyperlipidemia / SNOMED CT 94246933 / Confirmed Hypertension / SNOMED CT 6008543687 / Confirmed Hypothyroidism / SNOMED CT 25117280 / Confirmed Impaired mobility / SNOMED CT 437991812 / Confirmed Insomnia / SNOMED CT 956895195 / Confirmed Kidney stone / SNOMED CT 586426029 / Confirmed Low back pain / SNOMED CT 695040861 / Confirmed Microalbuminuria due to type 2 diabetes mellitus / SNOMED CT 9718024059 / Confirmed Microalbuminuric diabetic nephropathy / SNOMED CT 079475591 / Confirmed Morbid obesity with BMI of 50.0-59.9, adult / SNOMED CT 0102352267 / Confirmed Narcotic dependence / SNOMED CT 752093624 / Confirmed In the Suboxone program Nephropathy, diabetic / SNOMED CT 817217 / Confirmed Obesity / SNOMED CT 3356127133 / Confirmed Seasonal allergies / SNOMED CT 115781825 / Confirmed Severe obesity / SNOMED CT 7253204394 / Confirmed Substance abuse / SNOMED CT 958127450 / Confirmed Tobacco abuse / SNOMED CT 000231002 / Confirmed Unsteady gait / SNOMED CT 543306324 / Confirmed Uses walker / SNOMED CT 288600686 / Confirmed Allergies Allergic Reactions (Selected) Persistent Moderate Latex- Hives. Penicillin- Hives. Severity Not Documented Amoxicillin- No reactions were documented. Invokana- No reactions were documented. Januvia- No reactions were documented. MetFORMIN- No reactions were documented. Current medications (Selected) Inpatient Medications Ordered Albumin 25% 50 mL Bolus: 50 mL, Premix, IVPB, Every 4 hours for 3 doses/times, Routine, 05/13/22 18:00:00 EST, Stop date 05/14/22 5:59:00 EST Aspirin Supp: 150 mg, Suppository, Rectally, Daily, Routine, 05/14/22 9:00:00 EST Bisacodyl Supp: 10 mg, Suppository, Rectally, Daily, PRN for Constipation, Routine, 05/13/22 17:49:00 EST D10%W 1,000 mL: 1,000 mL, Infusion, IV Infusion, 1,000 mL, 50 mL/hr, Infuse over 20 hr, Continue until D/C'd Unless duration specified, Routine, 05/13/22 17:57:00 EST, 2.58, m2 Dextrose 50% Inj Syringe (25Gm): 12.5 Gm, Injection, IV Push Slowly, Every 20 minutes, PRN for BloodGlucose, 50 to 70 and patient is NOT AWAKE or NPO; Repeat Glucose POC in 20 minutes, Routine, 05/13/22 16:13:00 EST Dextrose 50% Inj Syringe (25Gm): 25 Gm, Injection, IV Push Slowly, Every 15 minutes, PRN for Blood Glucose, LESS than 50 and patient is NOT AWAKE or NPO - call MD if episode NOT resolved within 20 minutes, Routine, 05/13/22 16:13:00 EST Dilaudid Inj: 0.5 mg, Injection, IV Push Slowly, Every 4 hours, PRN for Pain , Severe, And with any sign of Opioid withdrawal, Routine, 05/13/22 17:49:00 EST Docusate/Senna Tablet: 1 tablet, Tablet, By Mouth, 2 times a day, PRN for Constipation, Routine, 05/13/22 15:10:00 EST Doxycycline IVPB: 100 mg, in 100 mL NaCl 0.9%, IVPB, Injection, Every 12 hours, Indicated for: UTI Community Acquired, STAT, 05/13/22 17:09:00 EST Duoneb Inhalation Solution: 1 vials, Inhalation Solution, BAND Nebulizer, 4 times a day, Routine, 05/13/22 21:00:00 EST Duoneb Inhalation Solution: 1 vials, Inhalation Solution, BAND Nebulizer, Every 4 hours, PRN for Wheezing/Shortness of Breath, Routine, 05/13/22 17:47:00 EST Glucagon Inj: 1 mg, Injection, Intramuscular, Once, For severe hypoglycemic event and patient is tooaltered to take glucose by mouth and does not have IV access., PRN for Other, Routine, 05/13/22 16:13:00 EST Glucose Gel: 15 Gm, Gel, By Mouth, Every 20 minutes, PRN for Blood Glucose, 50 to 70 and patient ALERT, Routine, 05/13/22 16:13:00 EST Glucose Gel: 30 Gm, Gel, By Mouth, Every 20 minutes, PRN for Blood Glucose, LESS THAN 50 and patientALERT, Routine, 05/13/22 16:13:00 EST Insulin LISPRO Sliding Scale: 2-10 units, Injection, Subcutaneous Injection, Every 4 hours, Routine,05/13/22 18:00:00 EST Kayexalate Powder: 30 Gm, Oral Powder, Rectally, Once, STAT, 05/13/22 18:45:00 EST, Stop date 05/13/22 18:45:00 EST Levothyroxine Inj: 100 mcg, Injection, IV Push Slowly, Daily, Injectable dose should be 1/3 to 1/2 of DAILY oral dose, Routine, 05/14/22 7:00:00 EST Melatonin Tablet: 3 mg, Tablet, By Mouth, Daily at bedtime, PRN for Insomnia, Routine, 05/13/22 15:10:00 EST MiraLax Powder: 17 Gm, Powder, By Mouth, Daily for 14 days, Dissolve in 8 ounces of water., PRN for Constipation, Routine, 05/13/22 15:10:00 EST, Stop date 05/27/22 15:09:00 EST NaCL 0.9% Flush: 3 mL, Injection, IV Push, Every 8 hours, PRN for Line/Tube Patency, Routine, 05/13/22 15:10:00 EST NaCL 0.9% Flush: 3 mL, Injection, IV Push, Every 8 hours, Routine, 05/13/22 16:00:00 EST Pantoprazole Inj: 40 mg, Injection, IV Push Slowly, Daily for 14 days, Mix with 10 mL NaCl 0.9% and administer slowly over at least 2 minutes, Indicated for: Continuation from Home, Routine, 05/14/22 9:00:00 EST, Stop date 05/28/22 8:59:00 EST Robitussin DM Liquid: 10 mL, Syrup, By Mouth, Every 4 hours, PRN for Cough, Routine, 05/13/22 15:10:00 EST Simethicone Tablet: 80 mg, Chew Tablet, Chew, 3 times a day, PRN for Gas, Routine, 05/13/22 15:10:00EST Tylenol Supp: 650 mg, Suppository, Rectally, Every 4 hours, PRN for Temperature, Routine, 05/13/22 17:45:00 EST hydrALAZINE Inj: 5 mg, Injection, IV Push Slowly, Every 4 hours, PRN for Blood Pressure, >165/95,Routine, 05/13/22 17:49:00 EST Prescriptions Prescribed Aspirin Low Dose 81 mg oral delayed release tablet: 1 tablet, By Mouth, Daily, no CRUSH OR CHEW, # 30 tablet, 11 Refills, [facility], 158, cm, 04/29/21 11:38:00 EST, Height, 161, kg, 11/10/19 18:44:00 EDT, Dry Weight ProAir HFA 90 mcg/inh inhalation aerosol with adapter: 2, puffs, Inhalation, Every 4 hours, PRN, # 8.5 Gm, Refills 5, Route to Pharmacy Electronically, [id number], [facility], 158, cm, 04/29/21 11:38:00 EST, Height, 161, kg, 11/10/19 18:44:00 EDT, Dry Weight atorvastatin 80 mg oral tablet: 1 tablet, By Mouth, Daily, # 90 tablet, 1 Refills, Maintenance, 12/16/21 12:20:00 EDT, [facility], 158, cm, 10/14/21 14:09:00 EDT, Height gabapentin 600 mg oral tablet: 1 tablet = 600 mg, By Mouth, 3 times a day, # 90 tablet, 5 Refills, Maintenance, 09/01/21 13:44:00 EDT, Tablet, [facility], Partial fill upon patient request if the prescription is for a schedule II opioid drug., 158, cm, 08/05/21... loratadine 10 mg oral tablet: 1, tablet, By Mouth, Daily, # 90 tablet, Refills 1, Route to Pharmacy Electronically, [facility], 158, cm, 10/14/21 14:09:00 EDT, Height, 161, kg, 11/10/19 18:44:00 EDT, Dry Weight omeprazole 20 mg oral enteric coated capsule: 1 capsule = 20 mg, By Mouth, 2 times a day, for 90 days, # 180 capsule, 6 Refills, Physician Stop 04/27/23 14:10:00 EST, 08/05/21 14:10:00 EST, [facility], 158, cm, 08/05/21 13:35:00 EST, Height, 161, kg, 11/10/19 18:44:00 EDT, Dry... Documented Medications Documented Dulcolax 10 mg rectal suppository: 1 supp = 10 mg, Rectally, Daily, PRN as needed for constipation, Maintenance, 05/13/22 13:21:00 EST, Suppository, Partial fill upon patient request if the prescription is for a schedule II opioid drug. Fleet Enema 19 gm-7 gm rectal enema: 1 each, Rectally, Once, PRN for constipation, Maintenance, 05/13/22 13:21:00 EST, Enema, Partial fill upon patient request if the prescription is for a schedule II opioid drug. Lantus Solostar Pen 100 units/mL subcutaneous solution: = 50 units, Subcutaneous Injection, 2 times a day, Maintenance, 05/13/22 13:12:00 EST, Partial fill upon patient request if the prescription is for a schedule II opioid drug. Milk of Magnesia 8% oral suspension: 30 mL = 2.4 Gm, By Mouth, Daily, PRN for constipation, Maintenance, 05/13/22 13:26:00 EST, Suspension, Partial fill upon patient request if the prescription is for a schedule II opioid drug. PROzac 20 mg oral capsule: 60 mg, 3, capsule, By Mouth, Daily, Refills 0, Maintenance, 10/26/15 10:18:37 Senna Plus 50 mg-8.6 mg oral tablet: 2 tablet, By Mouth, 2 times a day, Maintenance, 05/13/22 13:17:00 EST, Tablet, Partial fill upon patient request if the prescription is for a schedule II opioid drug. Suboxone 8 mg-2 mg sublingual film: 1 film, Sublingual, Every 8 hours, dissolve under the tongue, 0 Refills, Maintenance, 04/29/21 13:28:00 EST, Film, Partial fill upon patient request if the prescription is for a schedule II opioid drug. acetaminophen 325 mg oral tablet: 650 mg, 2, tablet, By Mouth, Every 4 hours, PRN, Maintenance, as needed for fever/pain, 05/13/22 13:21:00 EST, Partial fill upon patient request if the prescription isfor a schedule II opioid drug. amLODIPine 5 mg oral tablet: 1 tablet = 5 mg, By Mouth, Daily, Maintenance, 05/13/22 13:08:00 EST, Tablet, Partial fill upon patient request if the prescription is for a schedule II opioid drug. clonazePAM 1 mg oral tablet: 1 tablet = 1 mg, By Mouth, 3 times a day, Maintenance, 05/13/22 13:10:00 EST, Tablet, Partial fill upon patient request if the prescription is for a schedule II opioid drug. hydrochlorothiazide 25 mg oral tablet: 25 mg, 1, tablet, By Mouth, Daily, Maintenance, 05/13/22 13:11:00 EST, Partial fill upon patient request if the prescription is for a schedule II opioid drug. ibuprofen 600 mg oral tablet: 600 mg, 1, tablet, By Mouth, 3 times a day, PRN, Maintenance, Pain, 05/13/22 13:22:00 EST, Partial fill upon patient request if the prescription is for a schedule II opioid drug. insulin aspart 100 units/mL subcutaneous solution: 2-12 units, Subcutaneous Injection, 3 times a dayafter meals and bedtime, <150: zero insulin, 151-200: 2 units, 201-250: 4 units, 251-300: 6 units, 301-350: 8 units, > 350: 10 units & Call PCP if over 400, Maintenance, 05/13/22 13:27:00 EST, Partial... levothyroxine 0.2 mg oral tablet: 1 tablet = 200 mcg, By Mouth, Daily, Maintenance, 05/13/22 13:14:00 EST, Tablet, Partial fill upon patient request if the prescription is for a schedule II opioid drug. levothyroxine 75 mcg (0.075 mg) oral tablet: 1 tablet = 75 mcg, By Mouth, Daily, Maintenance, 05/13/22 13:13:00 EST, Tablet, Partial fill upon patient request if the prescription is for a schedule II opioid drug. lisinopril 20 mg oral tablet: 20 mg, 1, tablet, By Mouth, Daily, Maintenance, 05/13/22 13:15:00 EST,Partial fill upon patient request if the prescription is for a schedule II opioid drug. tiotropium 2.5 mcg/inh inhalation aerosol: 2 puffs, Inhalation, Daily, Maintenance, 05/13/22 13:16:00 EST, Aerosol, Partial fill upon patient request if the prescription is for a schedule II opioid drug. topiramate 50 mg oral tablet: 1 tablet = 50 mg, By Mouth, 2 times a day traZODone 100 mg oral tablet: 200 mg, 2, tablet, By Mouth, Daily at bedtime Obtained from the record. Surgical History Unable to obtain from the pt Social History Unable to obtain from the pt Family History Unable to obtain from the pt Review of Systems Unable to obtain from the pt Physical Examination Vital Signs Vitals : VITALS 05/13/2022 10:25 EST Temperature 98.2 DegF Temperature Route Rectal Pulse Rate 77 bpm Respiratory Rate 14 br/min L Systolic Blood Pressure 120 mm Hg Diastolic Blood Pressure 72 mm Hg Oxygen Saturation 96 % Liters per Minute 4 L/min Mode of Delivery (Oxygen) Nasal cannula 05/13/2022 9:33 EST Temperature 98.7 DegF Temperature Route Oral Pulse Rate 81 bpm Respiratory Rate 12 br/min L Vented No Systolic Blood Pressure 103 mm Hg Diastolic Blood Pressure 58 mm Hg Oxygen Saturation 96 % Liters per Minute 4 L/min Mode of Delivery (Oxygen) Nasal cannula . Weight : Weight lb/oz 05/13/2022 17:00 EST Weight lb/oz 373 lb 11 oz 05/13/2022 16:00 EST Weight lb/oz 373 lb 11 oz . BMI : Body Mass Index 05/13/2022 17:00 EST Body Mass Index 62.26 kg/m2 >HHI . Height : Height 05/13/2022 17:00 EST Height 165 cm . General Appearance: Obese, Dyspneic. HEENT Head: Normocephalic, Atraumatic. Eyes: PERRL, not Icteric. Neck: Supple, No lymphadenopathy. Cardiovascular Cardiac: PMI Non displaced, RRR, No M/G/R. Respiratory Respiratory: CTA, low volumes. Abdomen/GI Non-distended. Normal bowel sounds. Soft non-tender. No hepatosplenomegaly. Extremities Edema. No clubbing. No cyanosis. Derm Skin: No rash. BLLE venous stasis changes. Neurologic Neuro Exam: Unable to obtain from the pt due to lethargy. Reflex Exam: Babinski absent. Psychiatric Lethargic. Results Review 7 day results Labs & Documents Laboratory : LABORATORY 05/13/2022 18:30 EST Glucose, POC 79 mg/dL 05/13/2022 17:59 EST pH 7.26 L pCO2 63 mm Hg H pO2 86 mm Hg Bicarbonate, Estimated 27 mmol/L Specimen Type - Blood Gas ARTERIAL Percent O2 (FIO2) 25 05/13/2022 17:55 EST High Sensitivity Troponin (HSTnT) 40 ng/L H 05/13/2022 17:54 EST Hold Lavender Top SPECIMEN DISCARDED AFTER 24 HOURS. Sodium 139 mmol/L Potassium 5.1 mmol/L Chloride 105 mmol/L Bicarbonate Level 28 mmol/L Anion Gap 6 Glucose Level 83 mg/dL BUN 41 mg/dL H Creatinine-Blood 1.9 mg/dL H Estimated GFR Creatinine 32 ML/MIN/1.73 M2 Calcium, Ionized pH Corrected 1.26 mmol/L Magnesium 2.0 mg/dL CK, Total 25 units/L Procalcitonin 1.66 ng/mL 05/13/2022 17:25 EST Glucose, POC 85 mg/dL 05/13/2022 16:48 EST Glucose, POC 69 mg/dL L 05/13/2022 16:05 EST Glucose, POC 72 mg/dL 05/13/2022 15:17 EST Glucose, POC 141 mg/dL H 05/13/2022 15:04 EST Glucose, POC 164 mg/dL H 05/13/2022 14:49 EST Glucose, POC 93 mg/dL 05/13/2022 14:26 EST Glucose, POC 47 mg/dL C 05/13/2022 13:45 EST Barbiturate Screen, Urine NONE DETECTED Cannabinoid Screen, Urine NONE DETECTED Cocaine Metabolite Screen, Urine NONE DETECTED Benzodiazepine Screen, Urine NONE DETECTED Amphetamine Screen, Urine NONE DETECTED Opiate Screen, Urine NONE DETECTED Fentanyl Screen, Urine Result NONE DETECTED Appear/Color, Urine YELLOW Specific Lane, Urine 1.016 pH, Urine 7.0 Albumin, Urine 1+ Glucose, Urine NEGATIVE Ketones, Urine NEGATIVE Bilirubin, Urine NEGATIVE Hemoglobin, Urine 2+ Nitrite, Urine NEGATIVE Leukocyte, Urine 3+ Urobilinogen NORMAL mg/dL WBC's, Urine 14 /HPF H RBC's, Urine 67 /HPF H Bacteria MODERATE HPF Squamous Epith 1 /HPF Mucus SLIGHT /LPF Hold Urine Culture Testing available 48 hours from time of collection. 05/13/2022 13:05 EST pH 7.26 L pCO2 62 mm Hg H pO2 66 mm Hg L Bicarbonate, Estimated 27 mmol/L Specimen Type - Blood Gas ARTERIAL Percent O2 (FIO2) 25 05/13/2022 12:30 EST Potassium 6.1 mmol/L C High Sensitivity Troponin (HSTnT) 38 ng/L H 05/13/2022 10:45 EST Blood Culture Blood Culture (Preliminary) 05/13/2022 10:42 EST Blood Culture, Second Order Blood Culture, Second Order (Preliminary) 05/13/2022 10:23 EST WBC 7.3 k/mm3 RBC 3.32 m/mm3 L Hgb 8.4 Gm/dL L Hct 29.3 % L MCV 88.3 femtoliters MCH 25.3 pg L MCHC 28.7 g/dL L Platelet Count 172 k/mm3 RDW-SD 62.4 femtoliters H MPV 9.7 femtoliters Nucleated RBC (Automated) 0.0 #/100 WBC'S Abs. NRBC 0.0 k/mm3 Abs. Neut 4.9 k/mm3 Abs. Lymph 1.5 k/mm3 Abs. [place] 0.7 k/mm3 Abs. Eo 0.1 k/mm3 Abs. Baso 0.0 k/mm3 Neut % 66.7 % Lymph % 20.0 % [place] % 10.1 % Eos % 1.8 % Baso % 0.4 % Imm Gran 1.0 % Abs. Imm Gran 0.1 k/mm3 D-Dimer 0.96 mg/L FEU Sodium 139 mmol/L Potassium 6.2 mmol/L C Chloride 105 mmol/L Bicarbonate Level 27 mmol/L Anion Gap 7 Glucose Level 92 mg/dL BUN 43 mg/dL H Creatinine-Blood 2.0 mg/dL H Estimated GFR Creatinine 30 ML/MIN/1.73 M2 Calcium 8.5 mg/dL L Calcium, Ionized pH Corrected 1.19 mmol/L Magnesium 2.0 mg/dL Protein, Total 5.8 Gm/dL L Albumin 2.5 Gm/dL L AG Ratio 0.8 Alkaline Phosphatase 418 units/L H Lipase 17 units/L AST (SGOT) 49 units/L H ALT (SGPT) 154 units/L H Bilirubin, Total 0.2 mg/dL Nt-Probnp 53 pg/mL High Sensitivity Troponin (HSTnT) 40 ng/L H Serum Qual NEGATIVE mIU/mL Ethanol, Serum or Plasma NONE DETECTED mg/dL Salicylate Level <0.3 mg/dL Acetaminophen Level <5 mg/L 05/13/2022 10:20 EST Specimen Type - Blood Gas VENOUS pH, Venous 7.21 L pCO2, Venous 73 mm Hg H pO2, Venous 38 mm Hg Bicarbonate, Estimated(Venous) 28 mmol/L 05/13/2022 9:57 EST Influenza A PCR NEGATIVE Influenza B PCR NEGATIVE RSV PCR NEGATIVE COVID-19 PCR Specimen Source NASAL COVID-19 PCR Result NEGATIVE 05/13/2022 9:38 EST Glucose, POC 134 mg/dL H Imaging : RADIOLOGY 05/13/2022 12:[address] Head/Brain W/O Contrast CT Head/Brain W/O Contrast CT Angio Chest CT Angio Chest 05/13/2022 10:13 EST Chest Portable Chest Portable EKG Results Normal sinus rhythm Normal tracing IMPRESSION: CXR Worsening diffuse airspace disease likely reflecting pulmonary edema superimposed on patient's chronic lung disease. Pneumonia cannot be excluded. IMPRESSION: CTH No acute intracranial pathology. IMPRESSION: CTA Chest Severely degraded exam due to suboptimal contrast timing and patient motion. No evidence of central pulmonary embolism. Segmental and subsegmental pulmonary emboli are difficult to exclude. The lungs remain diffusely abnormal. Compared to 04/17/2022 CT, there is persistent groundglass opacity throughout the lungs and slightly decreased density of consolidation involving the lower lungs. Some ill-defined more dense curvilinear consolidative opacities throughout both lungs are more pronounced since the previous exam. Appearance is favored to reflect evolving ARDS-related changes, which may have been brought on on the previous exam by infection. A 10 mm contrast density rounded focus in the right upper lobe is appreciated greater in caliber than the surrounding pulmonary vessels. It is difficult to connect this focus with a more proximal pulmonary artery or vein a pulmonary artery branch. A pulmonary artery pseudoaneurysm is a possible consideration. Two residual pulmonary nodules in the right middle lobe measuring up to 10 mm, are unchanged 04/17/2022. Follow-up CT in 3-6 months is recommended. Unchanged mediastinal lymphadenopathy, favored to be reactive. Impression and Plan Acute Hypoxic Hypercapnic Respiratory Failure Acute on Chronic Respiratory Failure Persisting Ground Glass opacities likely from previous Covid 19 infection, no PE. ARDS is concern Respiratory Acidosis persisting despite use of BIPAP Obesity, Hypoventilation COPD, h/o tobacco abuse h/o Narcotic abuse for chronic LBP. On Suboxone. Per report from nursing, concern for visitors bringing illicit narcotics. Tox screen negative, Oxy screen is pending. Did not respond to Narcan at all RUL Pulmonary artery pseudoaneurysm? Pulmonary Nodules, follow up 3-[address] Elevated trop, EKG is not ischemic Elevated LFTs, not an obstructive pattern Depression/Anxiety Rule out Sepsis, UTI, with less likely HAP Plan -Admitted to intercare -BIPAP has not made improvement, trial AVAP, needs higher volumes, at this time <400Vt not enough. I asked RT to change the modality. -Bronchodilators -Doxy empiric abx to cover UTI and PNA, anaerobs. -Follow cx s to r/o sepsis -If any sign of tiring out, unable to tolerate intubation is necessary -Follow up ABG per RT -Procalcitonin -Holding all home meds, ones can be given IV or UT made the change -Hold all sedatives -Cycle trop, get CKMB, monitor LFTs, holding meds -Hold SSRI, BZD RADHIKA Hyperkalemia Plan -s/p Insulin, IV Ca, IV dextrose -Will receive UT Kayexalate -Will check labs -Monitor renal indices, lytes -Avoid nephrotoxins -Avoid hypotension -Renally adjust meds DM2 Neuroglycopenia, hypoglycemia Hypothyroidism HLP Plan -Hypoglycemia measures -D10, slow infusion -Check POC q2h -Hold Insulins unless needed per SSI -Levothyroxine IV -Holding statin Comorbidities HTN, holding all antihypertensives CDA, near baseline, monitor Quality Measures Dvt, high risk, chemical NPO Full code per record Brianna CRUZ, Jillian: PERFORM Event Display: History and Physical Hospital Authored Date: Pt s procalcitonin returned quite elevated. High risk for Sepsis Plan -Doxy was given to cover possible PNA and some UTI coverage. This will also cover for Anaerobes and sensitive staph. Continue -Will add Levaquin for better coverage for UTI and antipseudomonal coverage. -She is PCN allergic. -We are short of covering MRSA. Will do nasal swab and if positive will need to cover for MRSA w [facility]anc. -Follow cultures -Follow up procalcitonin to ensure improvement -Per nursing she is clinically starting to look better. She is more communicative and making decisions and reasoning/explaining things. EKG study Event Display: ECG 12-Lead Authored Date: Please click on pdf link to open report Event Display: ECG 12-Lead Authored Date: Ventricular Rate: 81 BPM Atrial Rate: 81 BPM P-R Interval: 176 ms QRS Duration: 94 ms Q-T Interval: 394 ms QTC Calculation(Bazett): 457 ms P Dora: 31 degrees R Dora: -17 degrees T Dora: 48 degrees Normal sinus rhythm Normal ECG When compared with ECG of 16-APR-2022 16:13, No significant change was found Confirmed by EMRE HUSTON MD ([id number]) on 2022 8:43:51 AM [place]: EMRE HUSTON MD Note Event Display: Cardiac Rhythm Strips Authored Date: Ellie Lopez RN: PERFORM Event Display: Discharge/Transfer Note Hospital Authored Date: [id number] Nursing Discharge Note Entered On: 2022 13:05 EST Performed On: 2022 13:04 EST by Ellie Lopez RN Nursing Discharge Note 2 Discharge Time : 2022 13:04 EST Discharge Level of Care at Discharge : Product Safety Professional Care Facility Discharge Nursing Homes/Rehab Facilities : [facility] Patient Left Unit Via : Ambulance Patient Accompanied Off Unit with : Ambulance/Chair Van Personnel Handover Given to Transport Personnel : Yes DC Instructions Provided & Signed by Pt : Yes Patient Understands D/C Instructions : Yes Patient Instructions Discharge Signed : Yes Did Pt have Specialty Bed or Wound Vac : No Ellie Lopez RN - 2022 13:04 Jr Tapia MD: PERFORM Event Display: Discharge/Transfer Note Hospital Authored Date: [id number] Patient: ??PANFILO COLE ? Age:??52 Years?Sex:??Female?:??1970?? Patient Information Discharge Location: D6B Primary Care Physician: rBenna Figueroa MD Admit Date/Time: 05/13/22 14:40 Discharge Disposition Discharge Disposition: Shelter Facility/Rehab ?? BACK TO [facility] ? Discharge Diagnosis [id number] hypoxic and hypercarbic respiratory failure (J96.90) Ground glass opacity present on imaging of lung (R91.8) Abnormal CT scan, chest (R93.89) Atypical pneumonia (J18.9) UTI (urinary tract infection) (N39.0) Elevated procalcitonin (R79.89) Morbid obesity with BMI of 60.0-69.9, adult (E66.01) DONATO (obstructive sleep apnea) (G47.33) Obesity hypoventilation syndrome (E66.2) RADHIKA (acute kidney injury) (N17.9) Hyperkalemia (E87.5) CKD (chronic kidney disease), stage III (N18.30) Hypoglycemia (E16.2) Obtundation (R40.1) DM2 (diabetes mellitus, type 2) (E11.9) Hypothyroidism (E03.9) Hypertension (I10) Hyperlipidemia (E78.5) GERD (gastroesophageal reflux disease) (K21.9) ?? _ Discharge Medications Acetaminophen (acetaminophen 325 mg oral tablet)?650?Milligram?2?tablet?By Mouth?Every 4 hours?as needed?as needed for fever/pain Albuterol (ProAir HFA 90 mcg/inh inhalation aerosol with adapter)?2?puff(s)?Inhalation?Every 4 hours?as needed? NEEDED FOR WHEEZING Amlodipine (amLODIPine 5 mg oral tablet)?1?tab(s)?5?Milligram?By Mouth?Daily Aspirin (Aspirin Low Dose 81 mg oral delayed release tablet)?1?tab(s)?By Mouth?Daily?no CRUSH OR CHEW Bisacodyl (Dulcolax 10 mg rectal suppository)?1?suppository(ies)?10?Milligram?Rectally ?Daily?as needed?as needed for constipation Buprenorphine-Naloxone (Suboxone 8 mg-2 mg sublingual film)?1?Film?Sublingual?Every 8 hours?dissolve under the tongue Clonazepam (clonazePAM 1 mg oral tablet)?1?tab(s)?1?Milligram?By Mouth?3 times a day Docusate-Senna (Senna Plus 50 mg-8.6 mg oral tablet)?2?tab(s)?By Mouth?2 times a day Doxycycline (doxycycline hyclate 100 mg oral tablet)?1?tab(s)?100?Milligram?By Mouth?2 times a day?for 7?Days Durable Medical Equipment (Bedpan)?See Instructions?DX: Morbid Obesity, Chronic low back pain,chronic knee pain Durable Medical Equipment (Freestyle Lancets)?See Instructions?Use as instructed to test bloodsugars before meals, at bedtime and as needed, 4-5x/day keep appointment for futher refills Durable Medical Equipment (Shower Chair)?See Instructions?Heavy duty shower chair Dx: Unsteadygait and abnormality of mobilityHeight 158cm Weight 161Kg Durable Medical Equipment (Bedside Commode)?See Instructions?Large Bedside CommodeImpaired Mobility (Z74.09)Unsteady Gait (R26.81)Daily use Life long (99) Durable Medical Equipment (Diapers)?See Instructions?Change 5 times dailyLife long (99)UrinaryIncontinence (R32)Size 45-58 Durable Medical Equipment (HEAVY DUTY WHEELCHAIR WITH FOOT REST)?See Instructions?DX UNSTEADY GAIT (R26.81)JANE: LIFETIME (99) Durable Medical Equipment (Freestyle Lite Monitor)?See Instructions?Pt to check blood sugar 4xdaily as directed for dx of E11.65 Durable Medical Equipment (padded toilet seat)?See Instructions?dx: buttock sores Durable Medical Equipment (Freestyle Lite Test Strips)?See Instructions?Check blood sugar 4 times daily. E11.65 Fluoxetine (PROzac 20 mg oral capsule)?60?Milligram?3?capsule?By Mouth?Daily Gabapentin (gabapentin 600 mg oral tablet)?1?tab(s)?600?Milligram?By Mouth?3 timesa day?for 30?Days Insulin Aspart (insulin aspart 100 units/mL subcutaneous solution)?2-12 units?Subcutaneous Injection?3 times a day after meals and bedtime?<150: zero insulin, ??151-200: 2 units, 201-250: 4 units, 251-300: 6 units, 301-350: 8 units, > 350: 10 units & Call PCP if over 400 Levofloxacin (levoFLOXacin 750 mg oral tablet)?1?tab(s)?750?Milligram?By Mouth?Every 48 hours?for 5?doses/times Levothyroxine (levothyroxine 75 mcg (0.075 mg) oral tablet)?1?tab(s)?75?Microgram?By Mouth?Daily Levothyroxine (levothyroxine 0.2 mg oral tablet)?1?tab(s)?200?Microgram?By Mouth?Daily Loratadine (loratadine 10 mg oral tablet)?1?tablet?By Mouth?Daily Milk of Magnesia (Milk of Magnesia 8% oral suspension)?30?Milliliter?2.4?gram?By Mouth?Daily?as needed?for constipation Miscellaneous Rx (FreeStyle [place] Lite kit)?See Instructions?TEST BLOOD SUGAR FOUR TIMES DAILY Miscellaneous Rx (Ulticare Pen Needle 31 gauge x 5/16 )?See Instructions?USE DIRECTED FIVE TIMES DAILY Omeprazole (omeprazole 20 mg oral enteric coated capsule)?1?capsule?20?Milligram?By Mouth?2 times a day?for 90?Days Tiotropium (tiotropium 2.5 mcg/inh inhalation aerosol)?2?puff(s)?Inhalation?Daily Topiramate (topiramate 50 mg oral tablet)?1?tab(s)?50?Milligram?By Mouth?2 times aday Trazodone (traZODone 100 mg oral tablet)?200?Milligram?2?tablet?By Mouth?Daily at bedtime ? Medications Started * Levofloxacin + doxycycline for atypical pneumonia / UTI ?? Medications Discontinued * Insulin glargine on HOLD due to hypoglycemia / renal function Manage with insulin s.s. for now, re-calculate her insulin needs and recalibrate new insulin glargine dose in the next week or so at [facility] * HCTZ and lisinopril stopped due to labile renal function Depending on clinical course, BP's, renal function, might consider re- introducing at a later date * Atorvastatin on HOLD due to abnormal LFT's May restart at the discretion of PCP ? Allergies Allergies ?(Active and Proposed Allergies Only) Invokana? (Severity: Unknown severity, Onset: Unknown) metFORMIN? (Severity: Unknown severity, Onset: Unknown) Januvia? (Severity: Unknown severity, Onset: Unknown) amoxicillin? (Severity: Unknown severity, Onset: Unknown) penicillin? (Severity: Persistent Moderate, Onset: Unknown) ?Reactions: hives Latex? (Severity: Persistent Moderate, Onset: Unknown) ?Reactions: hives ? PCP Follow-Up/Heads-Up ?? Prompt f/u with PCP for post-discharge eval, medication adjustments & plan of care ?? -- Objective Assessment and Plan ? Ms. Cole is our extremely unfortunate 52 y.o. (it is her birthday today) lady, fluent inEnglish, with a much??greater burden of illness that??should be present at her young age, a chronic SNF resident at [facility] ([facility]), with a h.o. severe morbid obesity (BMI = 62.2) / LE lymphedema /??DONATO / obesity hypoventilation syndrome / COPD / chronic hypoxic??& hypercarbic??respiratory failure on 2-3 L/min O2,??DM-2,??hypertension, hyperlipidemia, CKD stage III (prior baseline sCreat = 1.2 - 1.4, with declining renal function), peripheral neuropathy,??hypothyroidism, GERD, OA / DJD / chronic low back pain / chronic opiate dependence??on buprenorphine (Suboxone), h.o. skin abscesses s/p multiple I&D's, h.o. severe emphysematous pyelonephritis with hydronephrosis s/pureteral stent placement (08/2021, Dr. Reed, at [facility]), admitted on 05/13/2022 with obtundation / unresponsiveness / hypoglycemia =??40??/ RADHIKA on CKD stage III / sCreat = 2.0 / hyperkalemia / (?) possible UTI / (?) possible atypical pneumonia ? [id number]-gmmtbsi hypoxic and hypercarbic respiratory failure (J96.90):??. Ground glass opacity present on imaging of lung (R91.8):??. Abnormal CT scan, chest (R93.89):??. Atypical pneumonia (J18.9):??. UTI (urinary tract infection) (N39.0):??. Elevated procalcitonin (R79.89):??. Morbid obesity with BMI of 60.0-69.9, adult (E66.01):??. DONATO (obstructive sleep apnea) (G47.33):??. Obesity hypoventilation syndrome (E66.2):? Very abnormal CT chest, but hard to say what is acute and what is chronic. May also have chronic aspiration. We are treating for suspected atypical pneumonia. Also very abnormal urinalysis, so we are treating for suspected UTI. Plan: * On levofloxacin + doxycycline Completing a 7-day course * Proactive O2 supplementation to keep O2 sats > 88% and wean back to baseline as tolerated (2-3 L/min) * Strict use of CPAP / AVAPS qHS & naps * On PRN albuterol-ipratropium * Back to [facility] today * Close outpatient f/u with PCP??/ Pulmonary ?? RADHIKA (acute kidney injury) (N17.9):??. Hyperkalemia (E87.5):??. CKD (chronic kidney disease), stage III (N18.30):? Prior baseline sCreat = 1.2 - 1.4, but may be having declining renal function Peaked = 2.0 Now hovering??= 1.8 - 1.9 Plan: * Management of underlying triggers / comorbidities * Lisinopril & HCTX will remain ON HOLD * Closely monitor renal function and lytes * Avoid nephrotoxics / NSAIDs? Ibuprofen has been stopped ?? Hypoglycemia (E16.2):??. Obtundation (R40.1):??. DM2 (diabetes mellitus, type 2) (E11.9):? Hypoglycemia likely due to recirculation of insulin due to RADHIKA Plan: * Insulin glargine will remain on HOLD for now * Continue insulin s.s. / POC's TID & qHS Depending on insulin requirements over the next few days, recalibrate new dose of insulin glargine for her at [facility] ?? Hypothyroidism (E03.9):? On levothyroxine ?? Hypertension (I10):??. Hyperlipidemia (E78.5):? On ASA + amlodipine Atorvastatin on HOLD due to abnormal LFT's Lisinopril & HCTZ will remain ON HOLD due to labile renal function ?? GERD (gastroesophageal reflux disease) (K21.9):? On PPI ? -- ? Vital Signs?? Temperature: 98.4 DegF (05/15/22 08:00:00) Temperature Route: Oral (05/15/22 08:00:00) Pulse Rate:??91 bpm??High (05/14/22 15:34:00) Heart Rate Monitored: 82 bpm (05/15/22 06:00:00) Respiratory Rate:??12 br/min??Low (05/15/22 08:00:00) Vented: No (05/14/22 20:00:00) Systolic Blood Pressure: 120 mm Hg (05/15/22 10:02:00) Diastolic Blood Pressure: 62 mm Hg (05/15/22 10:02:00) Blood pressure sites: Arm, right (05/15/22 04:00:00) Pulse Pressure: 58 mm Hg (05/15/22 08:00:00) Oxygen Saturation: 94 % (05/15/22 08:00:00) Liters per Minute: 2 L/min (05/15/22 02:00:00) Mode of Delivery (Oxygen): Room air (05/15/22 08:00:00) Early Warning Score: 3 (05/15/22 10:06:19) ? . Physical Exam Afebrile, Tmax = 98.4 F, HR = 82', BP =??120 / 62 Extreme morbid obesity, normocephalic, GUCCI, no thrush Clear chest to auscultation, few scattered rhonchi / secretions S1 / S2 no murmur [place] abdomen, no rebound LE's with changes of lymphedema.?? Neurologically grossly non-focal.?? Follow-Up Appointments Added Follow Up ?Time Frame ?Comments Brenna Figueroa MD ?? FIRST AVAILABLE ?? Results Test Name Test Result Date/TimeWBC 5.8 k/mm3 2022 06:02 EST Hgb 8.0 Gm/dL (Low) 2022 06:02 EST Hct 26.9 % (Low) 2022 06:02 EST Platelet Count 173 k/mm3 2022 06:02 EST Sodium 135 mmol/L 2022 06:02 EST Potassium 6.2 mmol/L (Critical) 2022 06:02 EST Chloride 101 mmol/L 2022 06:02 EST Bicarbonate Level 25 mmol/L 2022 06:02 EST Anion Gap 9 2022 06:02 EST BUN 35 mg/dL (High) 2022 06:02 EST Creatinine-Blood 1.9 mg/dL (High) 2022 06:02 EST Estimated GFR Creatinine 32 ML/MIN/1.73 M2 2022 06:02 EST Phosphorus 4.0 mg/dL 2022 06:02 EST Magnesium 1.7 mg/dL 2022 06:02 EST Nt-Probnp 367 pg/mL (High) 2022 06:02 EST 40??minutes spent on discharge summary / bedside care / coordination of care Constantin LEDEZMA, Chet Brenner: PERFORM Event Display: Patient Education/Instruction Authored Date: [id number] Inpatient Adult Discharge Instructions [address] [address] Name: PANFILO COLE : 1970 Visit: 05/13/2022 14:40:00 Current Date: 2022 11:43 Account: [id number] Inpatient Adult Discharge Instructions We would like to thank you for allowing us to assist you with your healthcare needs. The following includes patient education materials and information regarding your injury/illness. Our entire staff strives to provide an excellent experience for our patients and their families. PLEASE ENSURE YOU FOLLOW-UP PER THE INSTRUCTIONS BELOW! ?? YOUR OPINION IS IMPORTANT TO US! Please complete the survey you may receive by mail or email. Your feedback will be used to make improvements to the healthcare experiences of our patients and their families. Surveys are administered by [employer] ?? If further treatment with your primary care physician or another doctor is recommended, it is important for you to keep the appointment. Call your primary care physician or return to the Emergency Department immediately if your condition worsens, fails to improve, or new symptoms develop. If you need to find a doctor, you can call [facility] [employer] for a referral at [phone] or toll free at [phone]) or log in to [email or web address].. ?? You can view and manage your care through the patient portal or by using a health care radha of your choosing. [employer] is a website that allows you to securely view your medical information including your hospital discharge summary, office visit summaries, medications and follow-up visits. You can also request appointments, renew medications, and request access to your medical information using a health care radha of your choosing, or just ask a question. You can enroll at [email or web address] or register during your next office visit. You have been discharged from [facility], Patient Care Unit: [id number]. If you have any questions regarding these instructions after you leave, please call us and we will be happy to assist you. [facility] Your Care Team Attending Physician Rosamaria CRUZ, Jr Consulting Providers Belén CRUZ, Dane; Jakob Lee MD Discharging Providers Rosamaria CRUZ, Jr Reason for Admission Pt from [facility], found to be unresponsive and hypoglycemic. Was given glucagon and glucose but still has AMS. Pt usually AOx4. Staff suspect a visitor has snuck fentanyl to pt before. She is on methadone. Your Diagnosis Respiratory failure Hyperkalemia RADHIKA (acute kidney injury) CKD (chronic kidney disease), stage III Hyperkalemia Hypoglycemia DM2 (diabetes mellitus, type 2) Morbid obesity with BMI of 60.0-69.9, adult DONATO (obstructive sleep apnea) Obesity hypoventilation syndrome Abnormal CT scan, chest Ground glass opacity present on imaging of lung Atypical pneumonia UTI (urinary tract infection) Elevated procalcitonin Hypothyroidism Hypertension Hyperlipidemia GERD (gastroesophageal reflux disease) Obtundation Tests Performed Below is a partial list of the tests performed during your hospitalization. You may have had other tests and procedures not included in this list. Please discuss all test results with your provider. ABG Acetaminophen Level Alcohol Level Amphetamine Urine Screen Aspirin Level Barbiturate Urine Screen Benzodiazepine Urine Screen BUN Calcium Ionized Cannabinoid Urine Screen CBC CBC w/ Differential CK w/ Reflex CKMB Cocaine Urine Screen Comprehensive Metabolic Panel COVID-19, RSV, and Flu A/B, Rapid PCR Creatinine D Dimer Electrolytes Fentanyl Screen, Urine Glucose Level GLUCOSE POC High??Sensitivity??Troponin T HOLD LAVENDER TUBE Ionized Calcium Lactate Level Lipase Lytes Magnesium Level MRSA PCR Nasal Swab Opiate Screen Urine Phosphorus Level Potassium Level Serum Qualitative ProBNP Procalcitonin Level Troponin T, High Sensitivity Urinalysis w/hold for Urine Culture Urine Oxycodone Screen VBG CT Angio Chest CT Head/Brain W/O Contrast CXR Portable Primary Care Provider Brenna Figueroa MD Advance Directive Health Care Proxy on File Yes - Health Care Proxy No qualifying data available. Discharge Vitals Temperature: 98.5 DegF Height: 165 cm Pulse Rate: 88 bpm Weight: 173.7 kg Respiratory Rate: 20 br/min Body Mass Index:??28.32 kg/m2??High Systolic Blood Pressure:??157 mm Hg??High Body surface area: 1.88 Diastolic Blood Pressure: 80 mm Hg ?? Oxygen Saturation:??85 %??Low ?? Studies Pending All tests and labs ordered during this hospital stay have been completed unless listed below. Pleasediscuss all pending results with your provider listed above in these instructions. ?? Blood Culture Blood Culture #2 COVID-19 (2019 Novel Coronavirus) PCR Hold Lavender Tube (BB) What to do next Instructions From Your Doctor Discharge Orders You Need to Schedule the Following Appointments Follow Up with??Brenna Figueroa MD When?? Where: [address] [place] [id number]- Discharge Medications PANFILO COLE :1970 Visit Date:05/13/2022 Medications: Please continue your medications until treatment is completed or stopped by your provider. Medications not listed below should be discontinued. Discuss any questions related to medications with your provider. What How Much When Why Instructions Next Dose New Doxycycline (doxycycline hyclate 100 mg oral tablet) 1 tab(s) Oral Twice a day Duration: 7 Days tonight 05/15 2100 New Levofloxacin (levoFLOXacin 750 mg oral tablet) 1 tab(s) Oral Every 48 hours Duration: 5 doses/times start tomorrow 05/16 2100 Unchanged Acetaminophen (acetaminophen 325 mg oral tablet) 2 tab(s) Oral Every 4 hours as needed for as needed for fever/pain as needed Unchanged Albuterol (ProAir HFA 90 mcg/ inh inhalation aerosol with adapter) 2 puff(s) Inhalation Every 4 hours as needed for NEEDED FOR WHEEZING as needed Unchanged Amlodipine (amLODIPine 5 mg oral tablet) 1 tab(s) Oral Daily Tomorrow 05/16 09 Unchanged Aspirin (Aspirin Low Dose 81 mg oral delayed release tablet) 1 tab(s) Oral Daily no CRUSH OR CHEW ?? Tomorrow 05/16 09 Unchanged Bisacodyl (Dulcolax 10 mg rectal suppository) 1 suppository(ies) Per rectum Daily as needed for as needed for constipation as needed Unchanged Buprenorphine-Naloxone (Suboxone 8 mg-2 mg sublingual film) 1 Film Sublingual Every 8 hours dissolve under the tongue ?? Today 05/15 1500 Unchanged Clonazepam (clonazePAM 1 mg oral tablet) 1 tab(s) Oral 3 times a day resume regimen Unchanged Docusate-Senna (Senna Plus 50 mg-8.6 mg oral tablet) 2 tab(s) Oral Twice a day tonight 05/15 2100 Unchanged Durable Medical Equipment (Bedpan) See instructions DX: Morbid Obesity, Chronic low back pain, chronic knee pain ?? Unchanged Durable Medical Equipment (Bedside Commode) See instructions Impaired mobility Unsteady gait Large Bedside Commode Impaired Mobility (Z74.09) Unsteady Gait (R26.81) Daily use Life long (99) ?? Unchanged Durable Medical Equipment (Diapers) See instructions Urinary incontinence Change 5 times daily Life long (99) Urinary Incontinence (R32) Size 45-58 ?? Unchanged Durable Medical Equipment (Freestyle Lancets) See instructions Use as instructed to test blood sugars before meals, at bedtime and as needed, 4-5x/ day keep appointment for futher refills ?? Unchanged Durable Medical Equipment (Freestyle Lite Monitor) See instructions Pt to check blood sugar 4x daily as directed for dx of E11.65 ?? Unchanged Durable Medical Equipment (Freestyle Lite Test Strips) See instructions Check blood sugar 4 times daily. E11.65 ?? Unchanged Durable Medical Equipment (HEAVY DUTY WHEELCHAIR WITH FOOT REST) See instructions Unsteady gait DX UNSTEADY GAIT (R26.81) JANE: LIFETIME (99) ?? Unchanged Durable Medical Equipment (padded toilet seat) See instructions dx: buttock sores ?? Unchanged Durable Medical Equipment (Shower Chair) See instructions Abnormality of gait and mobility Unsteady gait Heavy duty shower chair Dx: Unsteady gait and abnormality of mobility Height 158cm Weight 161Kg ?? Unchanged Fluoxetine (PROzac 20 mg oral capsule) 3 capsule Oral Daily Tomorrow 05/16 900 Unchanged Gabapentin (gabapentin 600 mg oral tablet) 1 tab(s) Oral 3 times a day Duration: 30 Days Today 05/15 1500 Unchanged Insulin Aspart (insulin aspart 100 units/ mL subcutaneous solution) 2-12 units Subcutaneous Injection 3 times a day after meals and bedtime <150: zero insulin, ??151-200: 2 units, 201-250: 4 units, 251-300: 6 units, 301-350: 8 units, > 350: 10 units & Call PCP if over 400 ?? resume as ordered Unchanged Levothyroxine (levothyroxine 0.2 mg oral tablet) 1 tab(s) Oral Daily Tomorrow 05/16 700 Unchanged Levothyroxine (levothyroxine 75 mcg (0.075 mg) oral tablet) 1 tab(s) Oral Daily Tomorrow 05/16 700 Unchanged Loratadine (loratadine 10 mg oral tablet) 1 tab(s) Oral Daily Tomorrow 05/16 900 Unchanged Milk of Magnesia (Milk of Magnesia 8% oral suspension) 30 Milliliter Oral Daily as needed for for constipation as needed Unchanged Miscellaneous Rx (FreeStyle [place] Lite kit) See instructions TEST BLOOD SUGAR FOUR TIMES DAILY ?? Unchanged Miscellaneous Rx (Ulticare Pen Needle 31 gauge x 5/ 16 ) See instructions USE DIRECTED FIVE TIMES DAILY ?? Unchanged Omeprazole (omeprazole 20 mg oral enteric coated capsule) 1 capsule Oral Twice a day Duration: 90 Days Tonight 05/15 2100 Unchanged Tiotropium (tiotropium 2.5 mcg/ inh inhalation aerosol) 2 puff(s) Inhalation Daily Tomorrow 05/16 900 Unchanged Topiramate (topiramate 50 mg oral tablet) 1 tab(s) Oral Twice a day Tonight 05/15 2100 Unchanged Trazodone (traZODone 100 mg oral tablet) 2 tab(s) Oral Daily at Bedtime Tonight 05/15 2100 ?? What How Much When Comments Stop Taking Atorvastatin (atorvastatin 80 mg oral tablet) 1 tab(s) Oral Daily Stop Taking Hydrochlorothiazide (hydrochlorothiazide 25 mg oral tablet) 1 tab(s) Oral Daily Stop Taking Ibuprofen (ibuprofen 600 mg oral tablet) 1 tab(s) Oral 3 times a day as needed for Pain Stop Taking Insulin Glargine (Lantus Solostar Pen 100 units/ mL subcutaneous solution) 50 unit(s) Subcutaneous Injection Twice a day Stop Taking Lisinopril (lisinopril 20 mg oral tablet) 1 tab(s) Oral Daily Stop Taking Sodium Biphosphate-Sodium Phosphate (Fleet Enema 19 gm-7 gm rectal enema) 1 Each Per rectum Once as needed for for constipation Test Results Below is a partial list of the most recent Laboratory test results done prior to this discharge. You may have had other tests and procedures not included in this list. Please discuss all test results with your provider. ABG (05/13/2022) ???pH - 7.26???pCO2 - 63 mm Hg???pO2 - 86 mm Hg???Bicarbonate, Estimated - 27 mmol/L???Specimen Type- Blood Gas - ARTERIAL???Percent O2 (FIO2) - 25 Acetaminophen Level (05/13/2022) ? ?Acetaminophen Level - <5 mg/L Alcohol Level (05/13/2022) ???Ethanol, Serum or Plasma - NONE DETECTED Amphetamine Urine Screen (05/13/2022) ???Amphetamine Screen, Urine - NONE DETECTED Aspirin Level (05/13/2022) ? ?Salicylate Level - <0.3 mg/dL Barbiturate Urine Screen (05/13/2022) ???Barbiturate Screen, Urine - NONE DETECTED Benzodiazepine Urine Screen (05/13/2022) ???Benzodiazepine Screen, Urine - NONE DETECTED BUN (2022) ???BUN - 35 mg/dL Calcium Ionized (05/13/2022) ???Calcium, Ionized pH Corrected - 1.19 mmol/L Cannabinoid Urine Screen (05/13/2022) ???Cannabinoid Screen, Urine - NONE DETECTED CBC (2022) ???WBC - 5.8 k/mm3???RBC - 3.15 m/mm3???Hgb - 8.0 Gm/dL???Hct - 26.9 %???MCV - 85.4 femtoliters???MCH - 25.4 pg???MCHC - 29.7 g/dL???Platelet Count - 173 k/mm3???RDW-SD - 59.8 femtoliters???MPV - 11.3 femtoliters???Nucleated RBC (Automated) - 0.0 #/100 WBC'S???Abs. NRBC - 0.0 k/mm3 CBC w/ Differential (05/13/2022) ???WBC - 7.3 k/mm3???RBC - 3.32 m/mm3???Hgb - 8.4 Gm/dL???Hct - 29.3 %???MCV - 88.3 femtoliters???MCH - 25.3 pg???MCHC - 28.7 g/dL???Platelet Count - 172 k/mm3???RDW-SD - 62.4 femtoliters???MPV - 9.7 femtoliters???Nucleated RBC (Automated) - 0.0 #/100 WBC'S???Abs. NRBC - 0.0 k/mm3???Abs. Neut - 4.9 k/m m3???Abs. Lymph - 1.5 k/mm3???Abs. [place] - 0.7 k/mm3???Abs. Eo - 0.1 k/mm3???Abs. Baso - 0.0 k/mm3???Neut % - 66.7 %???Lymph % - 20.0 %???[place] % - 10.1 %???Eos % - 1.8 %???Baso % - 0.4 %???Imm Gran - 1.0 %???Abs. Imm Gran - 0.1 k/mm3 CK w/ Reflex CKMB (05/13/2022) ???CK, Total - 25 units/L Cocaine Urine Screen (05/13/2022) ???Cocaine Metabolite Screen, Urine - NONE DETECTED Comprehensive Metabolic Panel (05/14/2022) ???Sodium - 140 mmol/L???Potassium - 5.1 mmol/L???Chloride - 105 mmol/L???Bicarbonate Level - 27 mmol/L???Anion Gap - 8???Glucose Level - 71 mg/dL???BUN - 42 mg/dL???Creatinine-Blood - 1.8 mg/dL???Estimated GFR Creatinine - 34 ML/MIN/1.73 M2???Calcium - 9.2 mg/dL???Protein, Total - 6.2 Gm/dL???Albumin - 2.7 Gm/dL???AG Ratio - 0.8???Alkaline Phosphatase - 388 units/L???AST (SGOT) - 40 units/L???ALT (SGPT) - 132 units/L???Bilirubin, Total - 0.3 mg/dL COVID-19, RSV, and Flu A/B, Rapid PCR (05/13/2022) ???Influenza A PCR - NEGATIVE???Influenza B PCR - NEGATIVE???RSV PCR - NEGATIVE???COVID-19 PCR Specimen Source - NASAL???COVID-19 PCR Result - NEGATIVE Creatinine (2022) ???Creatinine-Blood - 1.9 mg/dL???Estimated GFR Creatinine - 32 ML/MIN/1.73 M2 D Dimer (05/13/2022) ???D-Dimer - 0.96 mg/L FEU Electrolytes (05/13/2022) ???Sodium - 139 mmol/L???Potassium - 5.1 mmol/L???Chloride - 105 mmol/L???Bicarbonate Level - 28 mmol/L???Anion Gap - 6 Fentanyl Screen, Urine (05/13/2022) ???Fentanyl Screen, Urine Result - NONE DETECTED Glucose Level (05/13/2022) ???Glucose Level - 83 mg/dL GLUCOSE POC (2022) ???Glucose, POC - 82 mg/dL High??Sensitivity??Troponin T (05/13/2022) ???High Sensitivity Troponin (HSTnT) - 40 ng/L HOLD LAVENDER TUBE (05/13/2022) ???Hold Lavender Top - SPECIMEN DISCARDED AFTER 24 HOURS. Ionized Calcium (05/13/2022) ???Calcium, Ionized pH Corrected - 1.26 mmol/L Lactate Level (05/14/2022) ???Lactate - 0.8 mmol/L Lipase (05/13/2022) ???Lipase - 17 units/L Lytes (2022) ???Sodium - 135 mmol/L???Potassium - 6.2 mmol/L???Chloride - 101 mmol/L???Bicarbonate Level - 25 mmol/L???Anion Gap - 9 Magnesium Level (2022) ???Magnesium - 1.7 mg/dL MRSA PCR Nasal Swab (05/14/2022) ???MRSA PCR Result - Positive, MRSA target DNA detected.???S Aureus PCR Result - Positive, SA targetDNA detected. Opiate Screen Urine (05/13/2022) ???Opiate Screen, Urine - NONE DETECTED Phosphorus Level (2022) ???Phosphorus - 4.0 mg/dL Potassium Level (05/13/2022) ???Potassium - 6.1 mmol/L Serum Qualitative (05/13/2022) ??? Serum Qual - NEGATIVE ProBNP (2022) ???Nt-Probnp - 367 pg/mL Procalcitonin Level (05/14/2022) ???Procalcitonin - 2.24 ng/mL Troponin T, High Sensitivity (05/13/2022) ???High Sensitivity Troponin (HSTnT) - 40 ng/L Urinalysis w/hold for Urine Culture (05/13/2022) ???Appear/Color, Urine - YELLOW???Specific Lane, Urine - 1.016???pH, Urine - 7.0???Albumin, Urine- 1+???Glucose, Urine - NEGATIVE???Ketones, Urine - NEGATIVE???Bilirubin, Urine - NEGATIVE???Hemoglobin, Urine - 2+???Nitrite, Urine - NEGATIVE???Leukocyte, Urine - 3+???Urobilinogen - NORMAL???WBC's, Urine - 14 /HPF???RBC's, Urine - 67 /HPF???Bacteria - MODERATE???Squamous Epith - 1 /HPF???Mucus - SLIGHT???Hold Urine Culture - Testing available 48 hours from time of collection. Urine Oxycodone Screen (05/13/2022) ???Oxycodone Screen, Urine - NONE DETECTED VBG (05/13/2022) ???Specimen Type - Blood Gas - VENOUS???pH, Venous - 7.21???pCO2, Venous - 73 mm Hg???pO2, Venous - 38 mm Hg???Bicarbonate, Estimated(Venous) - 28 mmol/L Allergies (NKA means No Known Allergies) Latex??(hives) penicillin??(hives) Invokana Januvia amoxicillin metFORMIN Problems Active Problems??(29) Cervical radiculopathy?? Chronic respiratory failure?? COPD (chronic obstructive pulmonary disease)?? COVID-19?? Depression?? Diabetes mellitus type 2 in obese?? Diabetic nephropathy?? Diabetic neuropathy?? GERD (gastroesophageal reflux disease)?? Heroin use?? Hyperlipidemia?? Hyperlipidemia?? Hypertension?? Hypothyroidism?? Impaired mobility?? Insomnia?? Kidney stone?? Low back pain?? Microalbuminuria due to type 2 diabetes mellitus?? Microalbuminuric diabetic nephropathy?? Morbid obesity with BMI of 50.0-59.9, adult?? Narcotic dependence?? Nephropathy, diabetic?? Obesity?? Seasonal allergies?? Substance abuse?? Tobacco abuse?? Unsteady gait?? Uses walker?? Education Materials Below is the list of Educational Leaflet Providered with your Discharge Instructions. Valuables and Belongings I fully understand and agree that [facility] accepts no responsibility for all my personal property including clothing, toilet articles, radios, jewelry, dentures, hearing aids, rings, money, or any other property that is in my possession or is brought to me after admission. I understand certain valuables may be placed in a hospital safe for a short period of time. I understand that the hospital is not liable for loss or damage due to accident, fire, or other natural occurrence while said property is in the safe. I accept full responsibility for any personal property that I keep with me, and will not hold the hospital responsible in case of loss or disappearance. I acknowledge that i have been encouraged to send valuables and belongings home. ?? Date for Pt to Sign Valuables/Belongings: 05/13/22 17:00:00 ?? Other Discharge Information ?? Wound Assessment?? Wound Assessment?? Wound Location I: Buttocks, Right ?? Case Management Discharge Plan?? Discharge Plan?? Discharge Level of Care at Discharge: Product Safety Professional Care Facility Discharge Transportation Arranged: [facility] [address] [facility] [id number] [phone] Mode of Transportation Arranged: Ambulance Discharge Arranged Transport Date/Time: 05/15/22 12:30:00 Discharge Nursing Homes/Rehab Facilities: [facility] ?? Pulmonary Rehab Status?? Pulmonary Rehab Discharge Status?? CPAP/BiPAP Mask Type: Full CPAP/BiPAP Mask Size: Medium Respiratory Rate: 20 br/min ? Common Emergency Awareness Tips IS IT A STROKE? Act FAST and Check for these signs: FACE Does the face look uneven? ARM Does one arm drift down? SPEECH Does their speech sound strange? TIME Call at any sign of stroke ?? Heart Attack Signs Chest discomfort: Most heart attacks involve discomfort in the center of the chest and lasts more than a few minutes, or goes away and comes back. It can feel like uncomfortable pressure, squeezing, fullness or pain. Discomfort in upper body: Symptoms can include pain or discomfort in one or both arms, back, neck, jaw or stomach. Shortness of breath: With or without discomfort. Other signs: Breaking out in a cold sweat, nausea, or lightheaded. Remember, MINUTES DO MATTER. If you experience any of these heart attack warning signs, call to get immediate medical attention! ?? Smoking can increase your chances of developing chronic health problems and can cause harmful effects to other family members in your house. If you smoke, you are strongly encouraged to quit. Please call [facility] [employer] [facility] [place] [facility] at [phone] or [phone] [employer] ([id number]) or log in to [email or web address] for referrals to smoking cessation programs. ?? The National Suicide Prevention Hotline is available 25/12 if you or someone you know needs to find areason to keep living. By calling 8-050-721-[employer] (0654) you'll be connected to a skilled, trained counselor at a crisis center in your area. INPATIENT DISCHARGE INSTRUCTIONS SIGNATURE PAGE PANFILO COLE Location:[facility] Registration Date and Time:05/13/2022 14:40 EST Primary Care Physician: Brenna Figueroa MD, PANFILO GALVIN, have received the above patient education materials/instructions and have verbalized understanding. If ambulance or transport services are being used I further acknowledge being given a choice of service. ?? If you need to contact me, please call me at this number: . Patient/Rate And Cost Analyst Name: Patient/Rate And Cost Analyst Signature: Relationship to Patient: Witness Name/Signature: Date: Hospital Progress note Ellie Lopez RN: PERFORM, SIGN, VERIFY Event Display: Progress Note Hospital Authored Date: Patient: PANFILO COLE Age: 52 years Sex: Female : 1970 Associated Diagnoses: None Author: Ellie Lopez RN Findings Evaluation K+ 6.1, on unit and aware. Discharge Information Pulmonary Rehab Discharge : Pulmonary Rehab Discharge Status 05/14/2022 9:26 EST CPAP/BiPAP Mask Type Full CPAP/BiPAP Mask Size Medium 05/14/2022 5:30 EST CPAP/BiPAP Mask Type Full CPAP/BiPAP Mask Size Medium 05/14/2022 1:09 EST CPAP/BiPAP Mask Type Full CPAP/BiPAP Mask Size Medium 05/13/2022 20:58 EST CPAP/BiPAP Mask Type Full CPAP/BiPAP Mask Size Medium 05/13/2022 18:28 EST CPAP/BiPAP Mask Type Full CPAP/BiPAP Mask Size Medium 05/13/2022 16:48 EST CPAP/BiPAP Mask Type Full CPAP/BiPAP Mask Size Medium 05/13/2022 12:43 EST CPAP/BiPAP Mask Type Full CPAP/BiPAP Mask Size Medium 05/13/2022 12:14 EST CPAP/BiPAP Mask Type Full CPAP/BiPAP Mask Size MediumRegina Caputo RN: PERFORM, SIGN, VERIFY, MODIFY, SIGN Event Display: Progress Note Hospital Authored Date: Patient: PANFILO COLE Age: 52 years Sex: Female : 1970 Associated Diagnoses: None Author: Regina Caputo RN Findings Narrative/Incidental Pt alert, oriented to self, place, month and year. Pt does not seem to recall details of admission. Pt asking repeatedly for home meds suboxone, trazodone and clonazepam stating she would be unable to sleep without them. Pt very insistent and covering provider Everett Van spoke with pt. Covering provider ordered smaller dose of trazodone on condition that pt will use BiPAP/AVAPS overnight, to whichshe agreed. After being given trazodone pt refused BiPAP and continued to refuse even after coveringprovider spoke with patient again. Pt with oral temp 100F, provider advised to give APAP and plans to review a.m. lab results. Pt reporting burning with urination and stated the discomfort was from theFoley catheter; pt attempted to pull out her Calloway. Calloway discussed with provider and it was removedby this property underwriter. Explained to pt that we would monitor her ability to urinate and that if she did retain again and could not void, it would possibly be necessary to replace. Pt agreed to allow bladder scans for monitoring. LS dim, pt on 2L O2 via NC which she frequently removes. Pt does desaturate to low 80s with exertion when on RA. Pt denies cough. Pt has scant bleeding from her nose; humidificationadded to oxygen and saline nasal spray ordered. Pt also with runny nose and some congestion. . Discharge Information Pulmonary Rehab Discharge : Pulmonary Rehab Discharge Status 05/14/2022 9:26 EST CPAP/BiPAP Mask Type Full CPAP/BiPAP Mask Size Medium 05/14/2022 5:30 EST CPAP/BiPAP Mask Type Full CPAP/BiPAP Mask Size Medium 05/14/2022 1:09 EST CPAP/BiPAP Mask Type Full CPAP/BiPAP Mask Size Medium 05/13/2022 20:58 EST CPAP/BiPAP Mask Type Full CPAP/BiPAP Mask Size Medium 05/13/2022 18:28 EST CPAP/BiPAP Mask Type Full CPAP/BiPAP Mask Size Medium 05/13/2022 16:48 EST CPAP/BiPAP Mask Type Full CPAP/BiPAP Mask Size Medium 05/13/2022 12:43 EST CPAP/BiPAP Mask Type Full CPAP/BiPAP Mask Size Medium 05/13/2022 12:14 EST CPAP/BiPAP Mask Type Full CPAP/BiPAP Mask Size MediumRegina Caputo RN: PERFORM Event Display: Progress Note Hospital Authored Date: D10 infusion discontinued after midnight POC done; pt will be checked q4h for now. Pt able to void post-Calloway with a little effort. Pt with visual and auditory hallucinations early in the morning but when asked clarifying questions (she was talking to her mother) and said someone put a samson on her belly she said I'm not crazy! . Pt also yelled for help and was very anxious stating she needed her suboxone and clonazepam. Pt reported feeling clammy due to not getting her meds, POC glucose done to R/Ohypoglycemia and result 118. Provider Everett Van updated via Cortext. Pt pulling at her peripheral IV and even after being advised not to pull it out she continued pulling at the tape while she was denying the same; IV is currently covered.Abhinav Samson RN: PERFORM, SIGN, VERIFY Event Display: Progress Note Hospital Authored Date: Patient: PANFILO COLE Age: 51 years Sex: Female : 1970 Associated Diagnoses: None Author: Abhinav Samson RN Findings Problem Related to Alteration in Respiratory Function (new) : Alteration in Respiratory Function/new 05/14/2022 9:00 EST Alteration in Resp Status Related to Failure to Wean, Other: AVAPS Goals & Outcomes, Respiratory Pt will maintain/resume baseline physical assessment, Pt will notdevelop complications r/t mechanical ventilation, Pt will not develop complications r/t immobility Interventions, Respiratory Assess/monitor tolerance to IV infusions; verify rate/dose, Assess for and report S&S of respiratory distress, Position for comfort & optimal oxygenation, Monitor sputum color & consistency. Report changes to MD FLYNN Goals/Interventions, Respiratory Yes Respiratory, Problem Start 05/13/2022 0:00 Reviewed Plan with, Respiratory Patient Patient Progression, Respiratory Patient progressing according to plan Comment: Respiratory Status Patient is still lethargic but arousable with stimulation and voice. Disoriented to event and place. . Narrative/Incidental Patient is a bit lethargic but arousable to voice, oriented to self/time. She was weaned to 3L nasalcanula from Bipap and is maintaining sat >94%. Blood sugars were controlled today; no episodes ofhypoglycemia. Currently resting in bed. Call celaya in reach. See interactive flowsheets for full assessment. . Discharge Information Pulmonary Rehab Discharge : Pulmonary Rehab Discharge Status 05/14/2022 9:26 EST CPAP/BiPAP Mask Type Full CPAP/BiPAP Mask Size Medium 05/14/2022 5:30 EST CPAP/BiPAP Mask Type Full CPAP/BiPAP Mask Size Medium 05/14/2022 1:09 EST CPAP/BiPAP Mask Type Full CPAP/BiPAP Mask Size Medium 05/13/2022 20:58 EST CPAP/BiPAP Mask Type Full CPAP/BiPAP Mask Size Medium 05/13/2022 18:28 EST CPAP/BiPAP Mask Type Full CPAP/BiPAP Mask Size Medium 05/13/2022 16:48 EST CPAP/BiPAP Mask Type Full CPAP/BiPAP Mask Size Medium 05/13/2022 12:43 EST CPAP/BiPAP Mask Type Full CPAP/BiPAP Mask Size Medium 05/13/2022 12:14 EST CPAP/BiPAP Mask Type Full CPAP/BiPAP Mask Size Medium Portable XR Chest Views [facility] , CIS S: TRANSCRIBE Conrad CRUZ, Rahul W: VERIFY Event Display: Result: Authored Date: [id number] Chest Portable Hx of Present Illness: Pt arrives with AMS. 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 Staff suspect pt may have gotten fentanyl from visitor, pt also takes methadone.; Reason: Cough; Clinical Question(s): Pneumonia COMPARISON: 04/19/2022 FINDINGS: LINES AND TUBES: None. LUNGS AND PLEURA: Low lung volumes. Diffuse almost confluent opacification of the lungs bilaterally. No pneumothorax. HEART, MEDIASTINUM AND BRIAN: Secured by adjacent pleural-parenchymal abnormality.. BONES AND SOFT TISSUES: No acute abnormality. IMPRESSION: Worsening diffuse airspace disease likely reflecting pulmonary edema superimposed on patient's chronic lung disease. Pneumonia cannot be excluded. WSN: [id number] Ordering Physician: Emma Dolan Dictated By: Rahul Martines MD Dictated Date/Time: 05/13/22 10:25 a Reviewed By: Rahul Martines MD Signed By: Rahul Martines MD Signed Date/Time: 05/13/22 10:25 am Transcribed By: NAIF Transcribed Date/Time: 05/13/22 10:[address] Head WO contrast [facility]ers[facility] , CIS S: TRANSCRIBE David Pedraza MD: VERIFY Event Display: Result: Authored Date: CT Head/Brain W/O Contrast INDICATION: Hx of Present Illness: Pt arrives with AMS. 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 Staff suspect pt may have gotten fentanyl from visitor, pt also takes methadone.; Reason: Other:; ams; Clinical Question(s): Other: TECHNIQUE: Noncontrast head CT using axial technique and reconstructed in axial and coronal planes. Iterative reconstruction techniques are used to optimize dose and image quality. CTDIvol Head: 47.06 mGy, DLP Head: 1694 mGy*cm. COMPARISON: CT head from 12/15/2011 FINDINGS: Cold Roll Operator view findings, lines and tubes: None. BRAIN AND EXTRA-AXIAL SPACES: No parenchymal hemorrhage, midline shift, or mass effect. Vital-white matter differentiation is well preserved. No acute infarct. Ventricles, sulci, and basilar cisterns are normal. No white matter lesions. No subarachnoid hemorrhage. No subdural or epidural collection. CALVARIUM, SKULL BASE, AND SOFT TISSUES: No fractures or suspicious bony lesions. The paranasal sinuses and mastoid air cells are clear. Visualized orbits and globes are intact. The extracranial soft tissues are unremarkable. IMPRESSION: No acute intracranial pathology. WSN: [id number] Ordering Physician: Emma Dolan Dictated By: David Pedraza MD Dictated Date/Time: 05/13/22 12:37 p Reviewed By: David Pedraza MD Signed By: David Pedraza MD Signed Date/Time: 05/13/22 12:37 pm Transcribed By: NAIF Transcribed Date/Time: 05/13/22 12:33 pm CTA Chest vessels W contrast IV [facility] , CIS S: TRANSCRIBE David Pedraza MD: VERIFY Event Display: Result: Authored Date: [id number] EXAMINATION: CT Angio Chest INDICATION: Hx of Present Illness: Pt arrives with AMS. 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 Staff suspect pt may have gotten fentanyl from visitor, pt also takes methadone.; Reason: Other:; PE suspected, Intermediate prob, positive D-dimer,; Clinical Question(s): Pulmonary Embolism; Order Comment: TECHNIQUE: Spiral CTA of the chest was performed after rapid IV contrast administration without cardiac gating, triggered by an VIDAL on the main pulmonary artery. Images are formatted in multiple planesusing 2-D multiplanar and 3-D maximum intensity projection. 100 cc of Omnipaque 300 was administered intravenously. Weight-based protocol using automatic tube modulation was used to optimize exposure parameters. CTDIvol Body: 30.40 mGy, DLP Body: 675 mGy*cm. COMPARISONS: CT chest from 04/17/2022 ANGIOGRAPHIC FINDINGS: Evaluation is severely limited by motion and incomplete opacification of the pulmonary arteries withcontrast. No pulmonary embolism. Evaluation of segmental and subsegmental pulmonary arteries heavily degraded.Borderline dilated main pulmonary artery measuring 30 mm. No acute aortic abnormality seen on this study performed without cardiac gating. NON-ANGIOGRAPHIC FINDINGS: Cold Roll Operator View Findings, Lines and Tubes: None. Trachea and Airways: Patent without evidence of tracheal or endobronchial lesion. Lungs and Pleura: * Suboptimal evaluation of the lungs due to poor inspiration. * The lungs are diffusely abnormal with a background of groundglass opacity with slight relative sparing of the anterior lungs and areas of curvilinear peribronchiolar consolidative opacity (601:100). Extensive confluent consolidative opacities in the lower lungs seen on 04/17/2022 are less dense and appear more groundglass in density (301:55 on current versus 206:50 on prior). There are newly apparent peribronchiolar/curvilinear consolidative opacities for example 302:152 and 601:100). * 10 mm solid nodule abutting the fissure in the right middle lobe (301:44) appears unchanged from 04/17/2022 * 7 mm nearby right middle lobe nodule along the fissure (301:44) also appears to be unchanged. * In the right upper lobe is a 10 mm contrast density rounded focus (601:120, 302:54), greater. It is difficult to connect this focus with a more proximal branch of the pulmonary artery or venous system. * No effusion or pneumothorax. Mediastinum and brian: No mass or hematoma. Right lower paratracheal node with fatty hilum measuring 11 mm (301:37), unchanged. 12 mm middle mediastinal node lateral to the main pulmonary artery (301:42) is unchanged. No esophageal abnormality. Heart: Mild cardiomegaly. No pericardial effusion. Mild coronary artery calcification. Chest Wall Soft Tissues: Normal. Diaphragm and upper abdomen: No significant abnormality. Bones: No acute abnormality. Mild spine degenerative changes. Severe degenerative changes of the right shoulder. IMPRESSION: Severely degraded exam due to suboptimal contrast timing and patient motion. No evidence of central pulmonary embolism. Segmental and subsegmental pulmonary emboli are difficult to exclude. The lungs remain diffusely abnormal. Compared to 04/17/2022 CT, there is persistent groundglass opacity throughout the lungs and slightly decreased density of consolidation involving the lower lungs. Some ill-defined more dense curvilinear consolidative opacities throughout both lungs are more pronounced since the previous exam. Appearance is favored to reflect evolving ARDS-related changes, which may have been brought on on the previous exam by infection. A 10 mm contrast density rounded focus in the right upper lobe is appreciated greater in caliber than the surrounding pulmonary vessels. It is difficult to connect this focus with a more proximal pulmonary artery or vein a pulmonary artery branch. A pulmonary artery pseudoaneurysm is a possible consideration. Two residual pulmonary nodules in the right middle lobe measuring up to 10 mm, are unchanged 04/17/2022. Follow-up CT in 3-6 months is recommended. Unchanged mediastinal lymphadenopathy, favored to be reactive. Findings communicated to Dr. Dolan at 13:16 on 05/13/2022. WSN: [id number] Ordering Physician: Emma Dolan Dictated By: David Pedraza MD Dictated Date/Time: 05/13/22 1:16 pm Reviewed By: David Pedraza MD Signed By: David Pedraza MD Signed Date/Time: 05/13/22 1:16 pm Transcribed By: NAIF Transcribed Date/Time: 05/13/22 12:45 pm Patient Care team information Care Team PersonnelName: Elizabeth Youngblood RN Position: S RN Member Role: Primary Care Nurse Name: Dorcas Soto RN Position: S RN Member Role: Primary Care Nurse Name: Samir Beverly RN Position: [facility] RN Supv Member Role: Primary Care Nurse Name: Sigrid López RN Position: S RN Member Role: Primary Care Nurse Name: Torres Benoit RN Position: [facility] RN Member Role: Primary Care Nurse Name: Ellie Lopez RN Position: [facility] RN Member Role: Primary Care Nurse Name: Celia Mccallum RN Position: S RN Member Role: Primary Care Nurse Name: Caity Feliciano RN Position: S RN Member Role: Primary Care Nurse Name: Elvira Gonzáles RN Position: [facility] RN Member Role: Primary Care Nurse Name: Shanita Dawn RN Position: [facility] RN Member Role: Primary Care Nurse Name: Brenna Figueroa MD Position: [facility] General Pediatrics MD Member Role: PCP Address: Address: [address] [place] [id number]- [place] Name: Tej Walden Position: S RN Member Role: Primary Care Nurse Name: Dalton Radford MD Position: [facility] Renal MD Member Role: Lifetime Consulting Physician Address: Address: [address] [place] [address] [address] [facility], [place] [address]- [place] Name: Elizabeth Renee RN Position: [facility] RN Member Role: Primary Care Nurse Name: Kim Freedman RN Position: [facility] RN Member Role: Primary Care Nurse Name: Vilma Huff RN Position: [facility] RN Member Role: Primary Care Nurse Name: Genesis Dubon RN Position: [facility] RN Member Role: Primary Care Nurse Name: Safia Johnson RN Position: [facility] PCO w/OE and EZ Script Member Role: Primary Care Nurse Name: Sarah Johnson RN Position: [facility] RN Member Role: Primary Care Nurse Name: Xi BENSON Attending Position: [facility] ED Medicine MD Name: Pauline Grant Position: [facility] ED RN W/OE and Tasks Member Role: Patient Care Provider Name: Emma Dolan DO Position: [facility] Resident Member Role: ED Resident Address: Address: [address] [place] [address] [place] [address]- [place] Care Team Related PersonsName: SHARMIN VELASQUEZ Address: home [address] [place] [id number] Name: IRAIDA GRULLON Name: EFRAÍN GRULLON Address: home [address] [place] [address] Name: JOLANTA OSMAN Address: home [facility]
--- OUTSIDE RECORDS SUMMARY | 2022-05-26 16:42 | XMS_ITS | Continuity of Care Document ---
:1970 Author Organization [facility] Address [address] [place] [address]- Care Team Providers Name Role Phone Brooke GAS FITTER APPRENTICE, [facility] Primary Care Physician [place] [facility] [place] - 10/03/[address] [facility] [address] [place] [id number]- [place] Allergies, Adverse Reactions, Alerts Substance Reaction [...] 23-valent vaccine3 11/22/10 Given 1Result Comment: [facility] [id number] Comment: [10/01/2015] per [id number] Comment: vis given Medications albuterol CFC free 90 mcg/inh inhalation aerosol 2, puffs, Inhalation, Every 4 hours, PRN, # 18 Gm, Refills 5, Tot. Refills 5, Maintenance, 07/11/20 11:29:00 EST, Aerosol, Route to Pharmacy Electronically, [id number], [facility], 158, cm, 04/07/20 15:28:... Start Date: 07/11/20 Stop Date: 01/07/21 Status: Orderedaspirin 81 mg oral delayed release tablet 81 mg, 1, tablet, By Mouth, Daily, do not crush or chew, # 30 tablet, Refills 11, Tot. Refills 11, Maintenance, 07/30/20 9:01:00 EST, Route to Pharmacy Electronically, [facility], 158, cm, 04/07/20 15:28:00 EST, Height, 161, kg, 06... Start Date: 07/30/20 Status: Orderedatorvastatin 80 mg oral tablet 1 tablet = 80 mg, By Mouth, Daily, # 90 tablet, 1 Refills, Maintenance, 05/25/20 16:29:00 EST, Tablet, [facility], 158, cm, 04/07/20 15:28:00 EST, [...] Refills, Soft Stop, 04/07/20 16:10:00 EST, Tablet, [facility], 158, cm, 04/07/20 15:28:00 EST, [...] Maintenance, 09/03/2113:19:00 EDT, Route to Pharmacy Electronically, [facility], Resent from 09/02/20, 158, cm, [...] mL, 5 Refills, Maintenance, 08/26/20 16:38:00 EDT, [facility], 158, cm, 04/07/20 15:28:00 EST, Height, 161, kg, 11/10/19 18:44:0... Start Date: 08/26/20 Status: Orderedhydrochlorothiazide-lisinopril 25 mg-20 mg oral tablet 1 tablet, By Mouth, Daily, # 90 tablet, 0 Refills, Maintenance, 08/27/20 9:22:00 EDT, Tablet, [facility], Labs due for additional refills, [...] 09/03/20 15:34:00 EDT, Route to Pharmacy Electronically, [facility] Start Date: 09/03/20 Stop Date: 03/02/21 Status: OrderedLantus Solostar Pen 100 units/mL subcutaneous solution See Instructions, Take 45 units twice daily. E11.65, # 30 mL, 5 Refills, Maintenance, 08/26/20 16:38:00 EDT, [facility], 158, cm, 04/07/20 15:28:00 EST, Height, 161, kg, 11/10/19 18:44:00 EDT, Dry Weight Start Date: 08/26/20 Status: Orderedlevothyroxine 0.2 mg oral tablet 1 tablet = 200 mcg, By Mouth, Daily, # 90 tablet, 1 Refills, Maintenance, 09/02/20 8:56:00 EDT, Tablet, [facility], 158, cm, 04/07/20 15:28:00 EST, Height, 161, kg, 11/10/19 18:44:00 EDT, Dry Weight Start Date: 09/02/20 Stop Date: 03/01/21 Status: Orderedloratadine 10 mg oral tablet 10 mg, 1, tablet, By Mouth, Daily, # 90 tablet, Refills 1, Tot. Refills 1, Maintenance, 06/07/20 7:38:00 EST, Route to Pharmacy Electronically, [facility], 158, cm, 04/07/20 15:28:00 EST, Height, 161, kg, 11/10/19 18:44:00 EDT, Dry... Start Date: 06/07/20 Stop Date: 12/04/20 Status: Orderedomeprazole 20 mg oral enteric coated capsule 1 capsule = 20 mg, By Mouth, Daily, take 1/2-1 hour before breakfast, # 30 capsule, 2 Refills, Maintenance, 07/13/20 16:39:00 EST, EC Capsule, [facility], 158, cm, 04/07/20 15:28:00EST, Height, 161, kg, 11/10/19 18:44:00 EDT, Dry... Start Date: 07/13/20 Status: OrderedPen [place], 31 G x 8 mm BD Ultra [...] Unsteady gait(Confirmed) Active Uses walker(Confirmed) Active 1iin [id number] the Suboxone program Social History Social History Type Response Smoking Status Current every day smoker; Ty pe: Cigarettes; Other: 10 a day; entered on: 11/25/15 Sex Female
--- OUTSIDE RECORDS SUMMARY | 2022-05-26 16:42 | XMS_ITS | Continuity of Care Document ---
:1970 Author Organization [facility] Address [address] [place] [address]- Care Team Providers Name Role Phone Ray Cox NP Primary Care Physician Encounter [facility] Date(s): 05/20/19 - 08/08/[address] [address]- [facility] Attending Physician: Ray Cox NP Admitting Physician: [...] pneumococcal 23-valent vaccine3 11/22/10 Given 1Result Comment: [facility] [id number] Comment: [10/01/2015] per [id number] Comment: vis given Medications albuterol CFC free 90 mcg/inh inhalation aerosol 2, puffs, Inhalation, Every 4 hours, PRN, # 18 Gm, Refills 0, Tot. Refills 0, Maintenance, 06/10/19 9:01:00 EST, Aerosol, Route to Pharmacy Electronically, [id number], [facility] - , 165, cm, 06/05/19 13... Start Date: 06/10/19 Stop Date: 07/10/19 Status: Orderedaspirin 81 mg oral delayed release tablet 81 mg, 1, tablet, By Mouth, Daily, do not crush or chew, # 30 tablet, Refills 11, Tot. Refills 11, Maintenance, 08/01/18 12:28:09 EST, Route to Pharmacy Electronically, [id number], [facility] - Start Date: 08/01/18 Status: Orderedatorvastatin 80 mg oral tablet 1 tablet = 80 mg, By Mouth, Daily, # 90 tablet, 4 Refills, Maintenance, 06/05/19 14:25:00 EST, Tablet, [facility] - , 165, cm, 06/05/19 13:45:00 EST, Height Start Date: 06/05/19 Status: OrderedBARIATRIC WHEELCHAIR BARIATRIC WHEELCHAIR, See Instructions, # 1 each, Refills 0, Tot. Refills 0, Maintenance, WITH FOOT RESTS. DX UNSTEADY GAIT, LENGTH OF NEED:LIFETIME [facility] [id number], 08/04/19 15:18:00 EST, Compound Start Date: 08/04/19 [...] 06/10/19 17:33:00 EST, Route to Pharmacy Electronically, [facility] - , 165, cm, 06/05/19 13:45:00 EST, Height Start Date: 06/10/19 Status: OrderedHumalog Kwik Pen 100 units/mL subcutaneous injection See Instructions, inject up to 36 units 3 times daily with meals. for [id number], # 30 mL, 0 Refills, Maintenance, 04/01/19 11:21:31 EDT Start Date: 04/01/19 Status: Orderedhydrochlorothiazide-lisinopril 25 mg-20 mg oral tablet 1 tablet, By Mouth, Daily, # 90 tablet, 3 Refills, Maintenance, 06/05/19 14:24:00 EST, Tablet, [facility] - , 1 tablet By [...] 08/04/19 14:12:00 EST, Route to Pharmacy Electronically, [facility] Start Date: 08/04/19 Stop Date: 01/31/20 Status: OrderedLantus Solostar Pen 100 units/mL subcutaneous solution = 90 units, Subcutaneous Injection, Daily at bedtime, keep appointment on 06/13/19 for further refills, # 15 mL, 2 Refills, Maintenance, 06/05/19 14:21:00 EST, [facility] - , 165, cm, 06/05/19 13:45:00 EST, Height Start Date: 06/05/19 Status: Orderedlevothyroxine 0.2 mg oral tablet 1 tablet = 200 mcg, By Mouth, Daily, Labs and appt. needed for future refills, # 90 tablet, 0 Refills, Maintenance, 06/05/19 14:25:00 EST, Tablet, [facility] - , change in dose, 165, cm, 06/05/19 13:45:00 EST, Height Start Date: 06/05/19 Stop Date: 07/05/19 Status: Orderedloratadine 10 mg oral tablet 10 mg, 1, tablet, By Mouth, Daily, # 90 tablet, Refills 1, Tot. Refills 1, Maintenance, 06/17/19 11:16:00 EST, Route to Pharmacy Electronically, [facility], 165, cm, 06/05/19 13:45:00 EST, Height Start Date: 06/17/19 Stop Date: 12/14/19 Status: Orderedomeprazole 20 mg oral enteric coated capsule 1 capsule = 20 mg, By Mouth, Daily, take 1/2-1 hour before breakfast, # 30 capsule, 6 Refills, Maintenance, 03/21/19 13:55:13 EDT, EC Capsule Start Date: 03/21/19 Status: OrderedPen [place], 31 G x 8 mm BD Ultra [...] Unsteady gait(Confirmed) Active Uses walker(Confirmed) Active 1iin [id number] the Suboxone program Social History Social History Type Response Smoking Status Current every day smoker; Ty pe: Cigarettes; Other: 10 a day; entered on: 11/25/15 Sex Female
--- OUTSIDE RECORDS SUMMARY | 2022-05-26 16:42 | XMS_ITS | Continuity of Care Document ---
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 SYSTEMS ANALYST, Ray Mcleod Primary Care Physician Encounter [facility] Date(s): 06/23/21 - 07/23/21 [facility] [address] [place] [id number]- Allergies, Adverse Reactions, Alerts Substance Reaction Severity [...] inactive(oldterm) 06/21/09 Recorde d 1Result Comment: [facility] [phone] Comment: [10/01/2015] per [id number] Comment: vis given Medications Aspirin Low Dose 81 mg oral delayed release tablet 1 tablet, By Mouth, Daily, no CRUSH OR CHEW, # 30 tablet, 11 Refills, [facility], 158, cm, 04/29/21 11:38:00 EST, Height, 161, kg, 11/10/19 18:44:00 EDT, Dry Weight Start Date: 07/11/21 Status: Orderedatorvastatin 80 mg oral tablet 1 tablet, By Mouth, Daily, NEEDS LABS BEFORE NEXT REFILL, # 90 tablet, 1 Refills, Maintenance, 06/29/21 7:35:00 EST, [facility], 158, cm, 04/29/21 11:38:00 EST, [...] EST, Supply Start Date: 07/26/20 Status: OrderedFreeStyle [place] Lite kit FreeStyle [place] Lite kit, See Instructions, # 1 kit, [...] capsule, Refills 1, Tot. Refills 1, Maintenance, :11:00 EST, Route to Pharmacy Electronically, [facility]/pharmacy #[id number], Resent from 09/02/20, 158, cm, 10/08/20 11:23:00 EDT, Height, 161, kg, 11/10/19 18:44... Start Date: 04/11/21 Status: OrderedHEAVY DUTY WHEELCHAIR WITH FOOT REST [...] mL, 5 Refills, Maintenance, 08/26/20 16:38:00 EDT, [facility], 158, cm, 04/07/20 15:28:00 EST, Height, 161, kg, 11/10/19 18:44:0... Start Date: 08/26/20 Status: Orderedhydrochlorothiazide-lisinopril 25 mg-20 mg oral tablet 1 tablet, By Mouth, Daily, Labs and office visit needed for further refills., # 90 tablet, 0 Refills, Maintenance, 06/04/21 7:54:00 EST, [facility]/pharmacy #[id number], 90, Please ask patient to call office to schedule a medication review appointment li., 1 tab... Start Date: 06/04/21 Status: OrderedHydrocortisone 2.5% cream as 1:1 mix [...] 05/19/21 11:48:00 EST, Route to Pharmacy Electronically, [facility]/pharmacy #[id number], 158, cm... Start Date: 05/19/21 Stop Date: 11/15/21 Status: OrderedLantus Solostar Pen 100 units/mL subcutaneous solution See Instructions, Take 54 units twice daily. E11.65, # 45 mL, 5 Refills, Maintenance, 03/21/21 19:37:00 EDT, [facility], 158, cm, 10/08/20 11:23:00 EDT, Height, 161, kg, 11/10/19 18:44:00 EDT, Dry Weight Start Date: 03/21/21 Status: Orderedlevothyroxine 0.2 mg oral tablet 1 tablet, By Mouth, Daily, # 90 tablet, 0 Refills, Maintenance, 06/29/21 7:35:00 EST, [facility], 158, cm, 04/29/21 11:38:00 EST, Height, 161, kg, 11/10/19 18:44:00 EDT, Dry Weight Start Date: 06/29/21 Stop Date: 09/27/21 Status: Orderedloratadine 10 mg oral tablet 1, tablet, By Mouth, Daily, # 90 tablet, Refills 1, Route to Pharmacy Electronically, [facility], 158, cm, 04/29/21 11:38:00 EST, Height, 161, kg, 11/10/19 18:44:00 EDT, Dry Weight Start Date: 05/13/21 Status: Orderedomeprazole 20 mg oral enteric coated capsule See Instructions, TAKE 1 CAPSULE BY MOUTH 30-60 MINUTES BEFORE BREAKFAST, # 30 capsule, 11 Refills, [facility], 158, cm, 04/29/21 11:38:00 EST, Height, 161, kg, 11/10/19 18:44:00 EDT, Dry Weight Start Date: 07/11/21 Status: OrderedPen [place], 31 G x 8 mm BD Ultra [...] Gm, Refills 5, Route to Pharmacy Electronically, [id number], [facility], 158, cm, 04/29/21 11:38:00 EST, [...] MOUTH TWICE DAILY Start Date: 04/29/21 Status: Orderedtrazodone 150 mg oral tablet 1 [...] Unsteady gait(Confirmed) Active Uses walker(Confirmed) Active 1iin [id number] the Suboxone program Social History Social History Type Response Smoking Status Current every day smoker; Ty pe: Cigarettes; Other: 10 a day; entered on: 11/25/15 Sex Female
--- OUTSIDE RECORDS SUMMARY | 2022-05-26 16:42 | XMS_ITS | Continuity of Care Document ---
:1970 Author Organization [facility] Address [address] [place] [address]- Care Team Providers Name Role Phone Brooke UNIVERSITY REGISTRAR, Ray Mcleod Primary Care Physician Encounter [facility] [place] Date(s): 10/08/20 - 10/15/20 [facility] [address] [place] [phone]- Encounter Diagnosis Urinary frequency (Discharge Diagnosis) - 10/08/20 Attending Physician: Not on Staff, Attending MD Allergies, Adverse Reactions, Alerts Substance Reaction [...] 11/22/10 Given 1Result Comment: [facility] [phone] Comment: [10/01/2015] per [id number] Comment: vis given Medications albuterol CFC free 90 mcg/inh inhalation aerosol 2, puffs, Inhalation, Every 4 hours, PRN, # 18 Gm, Refills 5, Tot. Refills 5, Maintenance, 07/11/20 11:29:00 EST, Aerosol, Route to Pharmacy Electronically, [id number], [facility], 158, cm, 04/07/20 15:28:... Start Date: 07/11/20 Stop Date: 01/07/21 Status: Orderedaspirin 81 mg oral delayed release tablet 81 mg, 1, tablet, By Mouth, Daily, do not crush or chew, # 30 tablet, Refills 11, Tot. Refills 11, Maintenance, 07/30/20 9:01:00 EST, Route to Pharmacy Electronically, [facility], 158, cm, 04/07/20 15:28:00 EST, Height, 161, kg, 06... Start Date: 07/30/20 Status: Orderedatorvastatin 80 mg oral tablet 1 tablet = 80 mg, By Mouth, Daily, # 90 tablet, 1 Refills, Maintenance, 10/08/20 11:38:00 EDT, Tablet, [facility], 158, cm, 10/08/20 11:23:00 EDT, Height, [...] Maintenance, 09/03/2113:19:00 EDT, Route to Pharmacy Electronically, [facility], Resent from 09/02/20, 158, cm, 04/07/20 [...] mL, 5 Refills, Maintenance, 08/26/20 16:38:00 EDT, [facility], 158, cm, 04/07/20 15:28:00 EST, Height, 161, kg, 11/10/19 18:44:0... Start Date: 08/26/20 Status: Orderedhydrochlorothiazide-lisinopril 25 mg-20 mg oral tablet 1 tablet, By Mouth, Daily, # 90 tablet, 0 Refills, Maintenance, 08/27/20 9:22:00 EDT, Tablet, [facility], Labs due for additional refills, 1 [...] 09/03/20 15:34:00 EDT, Route to Pharmacy Electronically, [facility]... Start Date: 09/03/20 Stop Date: 03/02/21 Status: OrderedLantus Solostar Pen 100 units/mL subcutaneous solution See Instructions, Take 45 units twice daily. E11.65, # 30 mL, 5 Refills, Maintenance, 08/26/20 16:38:00 EDT, [facility], 158, cm, 04/07/20 15:28:00 EST, Height, 161, kg, 11/10/19 18:44:00 EDT, Dry Weight Start Date: 08/26/20 Status: Orderedlevothyroxine 0.2 mg oral tablet 1 tablet = 200 mcg, By Mouth, Daily, # 90 tablet, 1 Refills, Maintenance, 09/02/20 8:56:00 EDT, Tablet, [facility], 158, cm, 04/07/20 15:28:00 EST, Height, 161, kg, 11/10/19 18:44:00 EDT, Dry Weight Start Date: 09/02/20 Stop Date: 03/01/21 Status: Orderedloratadine 10 mg oral tablet 10 mg, 1, tablet, By Mouth, Daily, # 90 tablet, Refills 1, Tot. Refills 1, Maintenance, 06/07/20 7:38:00 EST, Route to Pharmacy Electronically, [facility], 158, cm, 04/07/20 15:28:00 EST, Height, 161, kg, 11/10/19 18:44:00 EDT, Dry... Start Date: 06/07/20 Stop Date: 12/04/20 Status: Orderedomeprazole 20 mg oral enteric coated capsule 1 capsule = 20 mg, By Mouth, Daily, take 1/2-1 hour before breakfast, # 30 capsule, 2 Refills, Maintenance, 07/13/20 16:39:00 EST, EC Capsule, [facility], 158, cm, 04/07/20 15:28:00EST, Height, 161, kg, 11/10/19 18:44:00 EDT, Dry... Start Date: 07/13/20 Status: OrderedPen [place], 31 G x 8 mm BD Ultra [...] Unsteady gait(Confirmed) Active Uses walker(Confirmed) Active 1iin [id number] the Suboxone program Diagnosis Diagnosis Type Effective Dates Health Status Clinical In formant Service Urinary Discharge 10/08/20 frequency Diagnosis Vital Signs Most recent to oldest [Reference Range]: 1 Height 158 cm (10/08/20 11:23 AM) Weight 154.54 kg (10/08/20 11:23 AM) Body Mass Index [18.5-24.99] 61.91 *>HHI* (10/08/20 11:23 AM) Weight Obtained Via Patient/family stated (10/08/20 11:23 AM) Social History Social History Type Response Smoking Status Current every day smoker; Ty pe: Cigarettes; Other: 10 a day; entered on: 11/25/15 Sex Female
--- OUTSIDE RECORDS SUMMARY | 2022-05-26 16:42 | XMS_ITS | Continuity of Care Document ---
:1970 Author Organization [facility] Address [address] [place] [address]- Care Team Providers Name Role Phone Brooke JAVIER, Ray Mcleod Primary Care Physician Encounter [facility] [place] Date(s): 06/21/19 - 10/19/19 [facility] [address] [place] [address]- [facility] Attending Physician: Not on Staff, Attending MD [...] 23-valent vaccine3 11/22/10 Given 1Result Comment: [facility] [phone] Comment: [10/01/2015] per [id number] Comment: vis given Medications albuterol CFC free 90 mcg/inh inhalation aerosol 2, puffs, Inhalation, Every 4 hours, PRN, # 18 Gm, Refills 5, Tot. Refills 5, Maintenance, 09/23/19 15:56:00 EDT, Aerosol, Route to Pharmacy Electronically, [id number], [facility], 165, cm, 06/05/19 13:45:... Start Date: 09/23/19 Stop Date: 03/21/20 Status: Orderedaspirin 81 mg oral delayed release tablet 81 mg, 1, tablet, By Mouth, Daily, do not crush or chew, # 30 tablet, Refills 11, Tot. Refills 11, Maintenance, 08/13/19 11:18:00 EDT, Route to Pharmacy Electronically, [facility], 165, cm, 06/05/19 13:45:00 EST, Height Start Date: 08/13/19 Status: Orderedatorvastatin 80 mg oral tablet 1 tablet = 80 mg, By Mouth, Daily, # 90 tablet, 4 Refills, Maintenance, 06/05/19 14:25:00 EST, Tablet, [facility], 165, cm, 06/05/19 13:45:00 EST, Height Start Date: 06/05/19 Status: OrderedBARIATRIC WHEELCHAIR BARIATRIC WHEELCHAIR, See Instructions, # 1 each, Refills 0, Tot. Refills 0, Maintenance, WITH FOOT RESTS. DX UNSTEADY GAIT, LENGTH OF NEED:LIFETIME [address], 08/04/19 15:18:00 EST, Compound Start Date: 08/04/19 [...] 09/04/19 14:45:00 EDT, Route to Pharmacy Electronically, [facility], 165, cm, 06/05/19 13:45:00 EST, Height Start Date: 09/04/19 Status: OrderedHumalog Kwik Pen 100 units/mL subcutaneous injection See Instructions, inject up to 36 units 3 times daily with meals. for [id number], # 30 mL, 0 Refills, Maintenance, 04/01/19 11:21:31 EDT Start Date: 04/01/19 Status: Orderedhydrochlorothiazide-lisinopril 25 mg-20 mg oral tablet 1 tablet, By Mouth, Daily, # 90 tablet, 3 Refills, Maintenance, 06/05/19 14:24:00 EST, Tablet, [facility] - , 1 tablet By [...] 08/04/19 14:12:00 EST, Route to Pharmacy Electronically, [facility] Start Date: 08/04/19 Stop Date: 01/31/20 Status: OrderedLantus Solostar Pen 100 units/mL subcutaneous solution = 90 units, Subcutaneous Injection, Daily at bedtime, keep appointment on 06/13/19 for further refills, # 15 mL, 2 Refills, Maintenance, 09/23/19 15:56:00 EDT, [facility], 165, cm, 06/05/19 13:45:00 EST, Height Start Date: 09/23/19 Status: Orderedlevothyroxine 0.2 mg oral tablet 1 tablet = 200 mcg, By Mouth, Daily, Labs needed prior to refills 09/04/2019. See 09/03 msg., # 90 tablet, 1 Refills, Maintenance, 09/04/19 16:38:00 EDT, Tablet, [facility], change in dose, 165, cm, 06/05/19 13:45:00 EST, Height Start Date: 09/04/19 Stop Date: 03/02/20 Status: Orderedloratadine 10 mg oral tablet 10 mg, 1, tablet, By Mouth, Daily, # 90 tablet, Refills 1, Tot. Refills 1, Maintenance, 06/17/19 11:16:00 EST, Route to Pharmacy Electronically, [facility], 165, cm, 06/05/19 13:45:00 EST, Height Start Date: 06/17/19 Stop Date: 12/14/19 Status: Orderedomeprazole 20 mg oral enteric coated capsule 1 capsule = 20 mg, By Mouth, Daily, take 1/2-1 hour before breakfast, # 30 capsule, 2 Refills, Maintenance, 10/06/19 14:57:00 EDT, EC Capsule, [facility], 165, cm, 06/05/19 13:45:00EST, Height Start Date: 10/06/19 Status: OrderedPen [place], 31 G x 8 mm BD Ultra [...] Unsteady gait(Confirmed) Active Uses walker(Confirmed) Active 1iin [id number] the Suboxone program Social History Social History Type Response Smoking Status Current every day smoker; Ty pe: Cigarettes; Other: 10 a day; entered on: 11/25/15 Sex Female
--- OUTSIDE RECORDS SUMMARY | 2022-05-26 16:42 | XMS_ITS | Continuity of Care Document ---
:1970 Author Organization [facility] Address [address] [place] [address]- Care Team Providers Name Role Phone Brooke JAVIER, Ray Mcleod Primary Care Physician Encounter [facility] [place] Date(s): 06/05/19 - 06/12/19 [facility] [address] [place] [phone] [facility] Encounter Diagnosis Physical exam, annual (Discharge Diagnosis) - 06/05/19 COPD (chronic obstructive pulmonary disease) (Discharge Diagnosis) - 06/05/19 Diabetes mellitus type 2 in obese (Discharge Diagnosis) - 06/05/19 Diabetic neuropathy (Discharge Diagnosis) - 06/05/19 Morbid obesity with BMI of 50.0-59.9, adult (Discharge Diagnosis) - 06/05/19 Physical exam, annual (Discharge Diagnosis) - 06/05/19 COPD (chronic obstructive pulmonary disease) (Discharge Diagnosis) - 06/05/19 Diabetes mellitus type 2 in obese (Discharge Diagnosis) - 06/05/19 Diabetic neuropathy (Discharge Diagnosis) - 06/05/19 Morbid obesity with BMI of 50.0-59.9, adult (Discharge Diagnosis) - 06/05/19 Cervical radiculopathy (Discharge Diagnosis) - 06/05/19 Hyperlipidemia (Discharge Diagnosis) - 06/05/19 Hypertension (Discharge Diagnosis) - 06/05/19 Hypothyroidism (Discharge Diagnosis) - 06/05/19 Nephropathy, diabetic (Discharge Diagnosis) - 06/05/19 Narcotic dependence (Discharge Diagnosis) - 06/05/19 Unsteady gait (Discharge Diagnosis) - 06/05/19 Nail overgrowth (Discharge Diagnosis) - 06/05/19 Attending Physician: Nam CRUZ, Yenni Allergies, Adverse Reactions, Alerts Substance Reaction Severity [...] pneumococcal 23-valent vaccine3 11/22/10 Given 1Result Comment: [facility] [phone] Comment: [10/01/2015] per [id number] Comment: vis given Medications albuterol CFC free 90 mcg/inh inhalation aerosol 2, puffs, Inhalation, Every 4 hours, PRN, # 18 Gm, Refills 0, Tot. Refills 0, Maintenance, 06/10/19 9:01:00 EST, Aerosol, Route to Pharmacy Electronically, [id number], [facility], 165, cm, 06/05/19 13... Start Date: 06/10/19 Stop Date: 07/10/19 Status: Orderedaspirin 81 mg oral delayed release tablet 81 mg, 1, tablet, By Mouth, Daily, do not crush or chew, # 30 tablet, Refills 11, Tot. Refills 11, Maintenance, 08/01/18 12:28:09 EST, Route to Pharmacy Electronically, [id number], [facility] Start Date: 08/01/18 Status: Orderedatorvastatin 80 mg oral tablet 1 tablet = 80 mg, By Mouth, Daily, # 90 tablet, 4 Refills, Maintenance, 06/05/19 14:25:00 EST, Tablet, [facility], 165, cm, 06/05/19 13:45:00 EST, Height [...] RESTS. DX UNSTEADY GAIT, LENGTH OF NEED:LIFETIME LISBETH LAW [phone], 06/06/19 9:35:00 EST, Compound Start Date: 06/06/19 [...] 4- 5x/day. keep appointment for further refills, 05/23/19 13:49:00 EST, Dx E11.65, Compound, 165, cm, 0... Start Date: 05/23/19 Status: Orderedgabapentin 300 mg oral capsule 300 [...] units 3 times daily with meals. for [id number], # 30 mL, 0 Refills, Maintenance, 04/01/19 [...] 06/10/19 9:01:00 EST, Route to Pharmacy Electronically, [facility]... Start Date: 06/10/19 Stop Date: 07/10/19 [...] mg, 1, tablet, By Mouth, Daily, # 30 tablet, Refills 5, Tot. Refills 5, Maintenance, 12/19/18 16:22:36 EDT, Route to Pharmacy Electronically, [id number], [facility] - Start Date: 12/19/18 Status: Orderedomeprazole 20 mg oral enteric coated capsule 1 capsule = 20 mg, By Mouth, Daily, take 1/2-1 hour before breakfast, # 30 capsule, 6 Refills, Maintenance, 03/21/19 13:55:13 EDT, EC Capsule Start Date: 03/21/19 Status: OrderedPen [place], 31 G x 8 mm BD Ultra [...] Unsteady gait(Confirmed) Active Uses walker(Confirmed) Active 1iin [id number] the Suboxone program Diagnosis Diagnosis Type Effective Dates Health Clinical Infor mant Status Service Physical exam, Discharge 06/05/19 annual Diagnosis COPD (chronic Discharge 06/05/19 obstructive Diagnosis pulmonary disease) Diabetes mellitus Discharge 06/05/19 type 2 in obese Diagnosis Diabetic neuropathy Discharge 06/05/19 Diagnosis Morbid obesity with Discharge 06/05/19 BMI of 50.0-59.9, Diagnosis adult Physical exam, Discharge 06/05/19 annual Diagnosis COPD (chronic Discharge 06/05/19 obstructive Diagnosis pulmonary disease) Diabetes mellitus Discharge 06/05/19 type 2 in obese Diagnosis Diabetic neuropathy Discharge 06/05/19 Diagnosis Morbid obesity with Discharge 06/05/19 BMI of 50.0-59.9, Diagnosis adult Cervical Discharge 06/05/19 radiculopathy Diagnosis Hyperlipidemia Discharge 06/05/19 Diagnosis Hypertension Discharge 06/05/19 Diagnosis Hypothyroidism Discharge 06/05/19 Diagnosis Nephropathy, Discharge 06/05/19 diabetic Diagnosis Narcotic dependence Discharge 06/05/19 Diagnosis Unsteady gait Discharge 06/05/19 Diagnosis Nail overgrowth Discharge 06/05/19 Diagnosis Vital Signs Most recent to oldest [Reference Range]: 1 Height 165 cm (06/05/19 1:45 PM) Weight 161.2 kg (06/05/19 1:45 PM) Oxygen Saturation [94-100 %] 99 % (06/05/19 1:45 PM) Pulse Rate [55-90 bpm] 112 bpm *H* (06/05/19 1:45 PM) Body Mass Index [18.5-24.99] 59.21 *>HHI* (06/05/19 1:45 PM) Blood Pressure [90-138/55-84 mm Hg] 156/82 mm Hg *H* (06/05/19 1:45 PM) Respiratory Rate [16-30 br/min] 24 br/min (06/05/19 1:45 PM) Temperature [96.8-100.4 DegF] 97.8 DegF (06/05/19 1:45 PM) Blood pressure sites Arm, left (06/05/19 1:45 PM) Temperature Route Oral (06/05/19 1:45 PM) Weight Obtained Via Standing scale (06/05/19 1:45 PM) Social History Social History Type Response Smoking Status Current every day smoker; Ty pe: Cigarettes; Other: 10 a day; entered on: 11/25/15 Sex Female
--- OUTSIDE RECORDS SUMMARY | 2022-05-26 16:43 | XMS_ITS | Continuity of Care Document ---
:1970 Author Organization [facility] Address [address] [place] [id number]- Care Team Providers Name Role Phone Brooke JAVIER, Ray Mcleod Primary Care Physician Encounter [facility] Date(s): 01/23/20 - 03/28/20 [facility] [address] [place] [id number]- [facility] Attending Physician: Alban Boston MD Admitting Physician: Alban Boston MD Referring Physician: Ray Cox NP Allergies, [...] 11/22/10 Given 1Result Comment: [facility] [phone] Comment: [10/01/2015] per [id number] Comment: vis given Medications albuterol CFC free 90 mcg/inh inhalation aerosol 2, puffs, Inhalation, Every 4 hours, PRN, # 18 Gm, Refills 5, Tot. Refills 5, Maintenance, 01/13/20 11:29:00 EDT, Aerosol, Route to Pharmacy Electronically, [id number], [facility], 158, cm, 11/25/19 17:19:... Start Date: 01/13/20 Stop Date: 07/11/20 Status: Orderedaspirin 81 mg oral delayed release tablet 81 mg, 1, tablet, By Mouth, Daily, do not crush or chew, # 30 tablet, Refills 11, Tot. Refills 11, Maintenance, 08/13/19 11:18:00 EDT, Route to Pharmacy Electronically, [facility] -, 165, cm, 06/05/19 13:45:00 EST, Height Start Date: 08/13/19 Status: Orderedatorvastatin 80 mg oral tablet 1 tablet = 80 mg, By Mouth, Daily, # 90 tablet, 4 Refills, Maintenance, 06/05/19 14:25:00 EST, Tablet, [facility] - , 165, cm, 06/05/19 13:45:00 EST, Height Start Date: 06/05/19 Status: OrderedBARIATRIC WHEELCHAIR BARIATRIC WHEELCHAIR, See Instructions, # 1 each, Refills 0, Tot. Refills 0, Maintenance, WITH FOOT RESTS. DX UNSTEADY GAIT, LENGTH OF NEED:LIFETIME [address], 08/04/19 15:18:00 EST, Compound Start Date: 08/04/19 [...] Maintenance, 01/05/2010:50:00 EDT, Route to Pharmacy Electronically, [facility], 158, cm, 11/25/19 17:19:00 EDT, Height, 161, kg, 11/10/19 18:44:00 EDT... Start Date: 01/06/20 Status: OrderedHumalog Kwik Pen 100 units/mL subcutaneous injection See Instructions, Max daily dose 70 units, take per sliding scale from office 3 times daily with meals. E11.65, # 30 mL, 5 Refills, Maintenance, 10/22/19 15:40:00 EDT, [facility], 165, cm, 06/05/19 13:45:00 EST, Height Start Date: 10/22/19 Status: Orderedhydrochlorothiazide-lisinopril 25 mg-20 mg oral tablet 1 tablet, By Mouth, Daily, # 90 tablet, 3 Refills, Maintenance, 06/05/19 14:24:00 EST, Tablet, [facility] - [place], 1 tablet By [...] 01/26/20 15:33:00 EDT, Route to Pharmacy Electronically, [facility] Start Date: 01/26/20 Stop Date: 07/24/20 Status: OrderedLantus Solostar Pen 100 units/mL subcutaneous solution See Instructions, Take 35 units twice daily. E11.65, # 30 mL, 5 Refills, Maintenance, 10/22/19 15:41:00 EDT, [facility], 165, cm, 06/05/19 13:45:00 EST, Height Start Date: 10/22/19 Status: Orderedlevothyroxine 0.2 mg oral tablet 1 tablet = 200 mcg, By Mouth, Daily, # 90 tablet, 1 Refills, Maintenance, 03/02/20 16:38:00 EDT, Tablet, [facility], 158, cm, 11/25/19 17:19:00 EDT, Height, 161, kg, 11/10/19 18:44:00 EDT, Dry Weight Start Date: 03/02/20 Stop Date: 08/29/20 Status: Orderedloratadine 10 mg oral tablet 10 mg, 1, tablet, By Mouth, Daily, # 90 tablet, Refills 1, Tot. Refills 1, Maintenance, 12/09/19 9:24:00 EDT, Route to Pharmacy Electronically, [facility], 158, cm, 11/25/19 17:19:00 EDT, Height, 161, kg, 11/10/19 18:44:00 EDT, Dry... Start Date: 12/09/19 Stop Date: 06/06/20 Status: Orderedomeprazole 20 mg oral enteric coated capsule 1 capsule = 20 mg, By Mouth, Daily, take 1/2-1 hour before breakfast, # 30 capsule, 2 Refills, Maintenance, 01/06/20 9:48:00 EDT, EC Capsule, [facility], 158, cm, 11/25/19 17:19:00 EDT, Height, 161, kg, 11/10/19 18:44:00 EDT, Dry W... Start Date: 01/06/20 Status: OrderedPen [place], 31 G x 8 mm BD [...] Unsteady gait(Confirmed) Active Uses walker(Confirmed) Active 1iin [id number] the Suboxone program Social History Social History Type Response Smoking Status Current every day smoker; Ty pe: Cigarettes; Other: 10 a day; entered on: 11/25/15 Sex Female
--- OUTSIDE RECORDS SUMMARY | 2022-05-26 16:43 | XMS_ITS | Continuity of Care Document ---
:1970 Author Organization [facility] Adult Address [address] [place] [address]- Care Team Providers Name Role Phone Brooke JAVIER, Ray O Primary Care Physician Encounter [facility] Date(s): 11/25/19 - 12/02/19 [facility] [address] [place] [address] Encounter Diagnosis Open wound of left lower leg (Discharge Diagnosis) - 11/25/19 COPD (chronic obstructive pulmonary disease) (Discharge Diagnosis) - 11/25/19 Diabetes mellitus type 2 in obese (Discharge Diagnosis) - 11/25/19 Hyperlipidemia (Discharge Diagnosis) - 11/25/19 Hypothyroidism (Discharge Diagnosis) - 11/25/19 Morbid obesity with BMI of 50.0-59.9, adult (Discharge Diagnosis) - 11/25/19 Nephropathy, diabetic (Discharge Diagnosis) - 11/25/19 Attending Physician: Nam CRUZ, Yenni Allergies, Adverse [...] 23-valent vaccine3 11/22/10 Given 1Result Comment: [facility] [phone] Comment: [10/01/2015] per [id number] Comment: vis given Medications albuterol CFC free 90 mcg/inh inhalation aerosol 2, puffs, Inhalation, Every 4 hours, PRN, # 18 Gm, Refills 5, Tot. Refills 5, Maintenance, 09/23/19 15:56:00 EDT, Aerosol, Route to Pharmacy Electronically, [id number], [facility], 165, cm, 06/05/19 13:45:... Start Date: 09/23/19 Stop Date: 03/21/20 Status: Orderedaspirin 81 mg oral delayed release tablet 81 mg, 1, tablet, By Mouth, Daily, do not crush or chew, # 30 tablet, Refills 11, Tot. Refills 11, Maintenance, 08/13/19 11:18:00 EDT, Route to Pharmacy Electronically, [facility] -, 165, cm, 06/05/19 13:45:00 EST, Height Start Date: 08/13/19 Status: Orderedatorvastatin 80 mg oral tablet 1 tablet = 80 mg, By Mouth, Daily, # 90 tablet, 4 Refills, Maintenance, 06/05/19 14:25:00 EST, Tablet, [facility] - , 165, cm, 06/05/19 13:45:00 EST, Height Start Date: 06/05/19 Status: OrderedBARIATRIC WHEELCHAIR BARIATRIC WHEELCHAIR, See Instructions, # 1 each, Refills 0, Tot. Refills 0, Maintenance, WITH FOOT RESTS. DX UNSTEADY GAIT, LENGTH OF NEED:LIFETIME [facility] [phone], 08/04/19 15:18:00 EST, Compound Start Date: 08/04/19 [...] 09/04/19 14:45:00 EDT, Route to Pharmacy Electronically, [facility], 165, cm, 06/05/19 13:45:00 EST, Height Start Date: 09/04/19 Status: OrderedHumalog Kwik Pen 100 units/mL subcutaneous injection See Instructions, Max daily dose 70 units, take per sliding scale from office 3 times daily with meals. E11.65, # 30 mL, 5 Refills, Maintenance, 10/22/19 15:40:00 EDT, [facility], 165, cm, 06/05/19 13:45:00 EST, Height Start Date: 10/22/19 Status: Orderedhydrochlorothiazide-lisinopril 25 mg-20 mg oral tablet 1 tablet, By Mouth, Daily, # 90 tablet, 3 Refills, Maintenance, 06/05/19 14:24:00 EST, Tablet, [facility], 1 tablet By [...] 08/04/19 14:12:00 EST, Route to Pharmacy Electronically, [facility] Start Date: 08/04/19 Stop Date: 01/31/20 Status: OrderedLantus Solostar Pen 100 units/mL subcutaneous solution See Instructions, Take 35 units twice daily. E11.65, # 30 mL, 5 Refills, Maintenance, 10/22/19 15:41:00 EDT, [facility], 165, cm, 06/05/19 13:45:00 EST, Height Start Date: 10/22/19 Status: Orderedlevothyroxine 0.2 mg oral tablet 1 tablet = 200 mcg, By Mouth, Daily, Labs needed prior to refills 09/04/2019. See 09/03 msg., # 90 tablet, 1 Refills, Maintenance, 09/04/19 16:38:00 EDT, Tablet, [facility], change in dose, 165, cm, 06/05/19 13:45:00 EST, Height Start Date: 09/04/19 Stop Date: 03/02/20 Status: Orderedloratadine 10 mg oral tablet 10 mg, 1, tablet, By Mouth, Daily, # 90 tablet, Refills 1, Tot. Refills 1, Maintenance, 06/17/19 11:16:00 EST, Route to Pharmacy Electronically, [facility], 165, cm, 06/05/19 13:45:00 EST, Height Start Date: 06/17/19 Stop Date: 12/14/19 Status: Orderedomeprazole 20 mg oral enteric coated capsule 1 capsule = 20 mg, By Mouth, Daily, take 1/2-1 hour before breakfast, # 30 capsule, 2 Refills, Maintenance, 10/06/19 14:57:00 EDT, EC Capsule, [facility], 165, cm, 06/05/19 13:45:00EST, Height Start Date: 10/06/19 Status: OrderedPen [place], 31 G x 8 mm BD Ultra [...] Unsteady gait(Confirmed) Active Uses walker(Confirmed) Active 1iin [id number] the Suboxone program Diagnosis Diagnosis Type Effective Dates Health Clinical Infor mant Status Service Open wound of left Discharge 11/25/19 lower leg Diagnosis COPD (chronic Discharge 11/25/19 obstructive Diagnosis pulmonary disease) Diabetes mellitus Discharge 11/25/19 type 2 in obese Diagnosis Hyperlipidemia Discharge 11/25/19 Diagnosis Hypothyroidism Discharge 11/25/19 Diagnosis Morbid obesity with Discharge 11/25/19 BMI of 50.0-59.9, Diagnosis adult Nephropathy, Discharge 11/25/19 diabetic Diagnosis Vital Signs Most recent to oldest [Reference Range]: 1 2 Height 158 cm 158 cm (11/25/19 5:19 PM) (11/25/19 1:08 PM) Weight 164 kg (11/25/19 1:08 PM) Body Mass Index [18.5-24.99] 65.69 *>HHI* (11/25/19 1:08 PM) Blood Pressure [90-138/55-84 mm Hg] 142/84 mm Hg 146/ 86 mm Hg *H* *H* (11/25/19 5:19 PM) (11/25/19 1:08 PM) Temperature [96.8-100.4 DegF] 98.6 DegF (11/25/19 1:08 PM) Blood pressure sites Arm, left Arm, left (11/25/19 5:19 PM) (11/25/19 1:08 PM) Temperature Route Oral (11/25/19 1:08 PM) Social History Social History Type Response Smoking Status Current every day smoker; Ty pe: Cigarettes; Other: 10 a day; entered on: 11/25/15 Sex Female
--- OUTSIDE RECORDS SUMMARY | 2022-05-26 16:43 | XMS_ITS | Continuity of Care Document ---
:1970 Author Organization [facility] Address [address] [address]- Care Team Providers Name Role Phone Brooke BEVERAGE HOST, Ray Mcleod Primary Care Physician Encounter [facility] Date(s): 12/30/21 - 01/29/22 [facility] [address] [address]- Attending Physician: Ananth Herrera Admitting Physician: Ananth Herrera Referring Physician: Ananth Herrera Allergies, Adverse Reactions, Alerts Substance Reaction Severity Status amoxicillin Active penicillin hives Persistent Moderate Active Invokana Active Latex hives Persistent Moderate Active Januvia Active metFORMIN Active Immunizations Given and Recorded [...] H1N1, inactive(oldterm) 06/21/09 Recorde d 1Result Comment: [facility]: [id number] Comment: [facility] [phone] Comment: [10/01/2015] per [id number] Comment: vis given Medications amLODIPine 5 mg oral tablet TAKE 1 TABLET BY MOUTH EVERY DAY Start Date: 09/15/21 Status: OrderedamLODIPine 5 mg oral tablet 1 tablet = 5 mg, By Mouth, Daily, TAKE 1 TABLET BY MOUTH EVERY DAY, # 90 tablet, 2 Refills, Maintenance, 10/14/21 17:06:00 EDT, Tablet, [facility], Partial fill upon patient requestif the prescription is for a schedule II opioid d... Start Date: 10/14/21 Stop Date: 07/11/22 Status: OrderedAspirin Low Dose 81 mg oral delayed release tablet 1 tablet, By Mouth, Daily, no CRUSH OR CHEW, # 30 tablet, 11 Refills, [facility], 158, cm, 04/29/21 11:38:00 EST, Height, 161, kg, 11/10/19 18:44:00 EDT, Dry Weight Start Date: 07/11/21 Status: Orderedatorvastatin 80 mg oral tablet 1 tablet, By Mouth, Daily, # 90 tablet, 1 Refills, Maintenance, 12/16/21 12:20:00 EDT, [facility], 158, cm, 10/14/21 14:09:00 EDT, Height Start Date: 12/16/21 Status: OrderedBedpan See Instructions, # 1 each, [...] EST, Supply Start Date: 07/26/20 Status: OrderedFreeStyle [place] Lite kit FreeStyle [place] Lite kit, See Instructions, # 1 kit, [...] 5 Refills, Maintenance, 09/01/21 13:44:00 EDT, Tablet, [facility], Partial fill upon patient request [...] mL, 5 Refills, Maintenance, 08/31/21 13:03:00 EDT, [facility], 158, cm, 08/05/21 13:35:00 EST, [...] tablet, 1 Refills, Maintenance, 08/31/21 15:46:00 EDT, [facility], 90, 1 tablet By Mouth [...] 08/01/18 Status: Orderedibuprofen 800 mg oral tablet 1, tablet, By Mouth, 3 times a day, PRN, # 90 tablet, Refills 5, NEEDED FOR PAIN WITH FOOD OR MILK, Route to Pharmacy Electronically, [id number], 158, cm, 10/14/21 14:09:00 EDT, Height Start Date: 11/30/21 Status: OrderedLantus Solostar Pen 100 units/mL subcutaneous solution See Instructions, Take 54 units twice daily. E11.65, # 45 mL, 5 Refills, Maintenance, 03/21/21 19:37:00 EDT, [facility], 158, cm, 10/08/20 11:23:00 EDT, Height, 161, kg, 11/10/19 18:44:00 EDT, Dry Weight Start Date: 03/21/21 Status: Orderedlevothyroxine 0.2 mg oral tablet 1 tablet, By Mouth, Daily, # 90 tablet, 1 Refills, Maintenance, 09/27/21 18:47:00 EDT, [facility], 158, cm, 09/15/21 16:09:00 EDT, Height, 161, kg, 11/10/19 18:44:00 EDT, Dry Weight Start Date: 09/27/21 Stop Date: 03/26/22 Status: Orderedloratadine 10 mg oral tablet 1, tablet, By Mouth, Daily, # 90 tablet, Refills 1, Route to Pharmacy Electronically, [facility], 158, cm, 10/14/21 14:09:00 EDT, Height, 161, kg, 11/10/19 18:44:00 EDT, Dry Weight Start Date: 11/04/21 Status: Orderedomeprazole 20 mg oral enteric coated capsule 1 capsule = 20 mg, By Mouth, 2 times a day, for 90 days, # 180 capsule, 6 Refills, Physician Stop 04/27/23 14:10:00 EST, 08/05/21 14:10:00 EST, [facility], 158, cm, 08/05/21 13:35:00 EST, Height, 161, kg, 11/10/19 18:44:00 EDT, Dry... Start Date: 08/05/21 Stop Date: 04/27/23 Status: Orderedpadded toilet seat padded toilet seat, See Instructions, # 1 each, Refills 0, Tot. Refills 0, Maintenance, dx: buttock sores, 09/19/21 11:23:00 EDT, Supply Start Date: 09/19/21 Status: OrderedPen [place], 31 G x 8 mm BD Ultra [...] Gm, Refills 5, Route to Pharmacy Electronically, [id number], [facility], 158, cm, 04/29/21 11:38:00 EST, [...] Unsteady gait(Confirmed) Active Uses walker(Confirmed) Active 1iin [id number] the Suboxone program Social History Social History Type Response Smoking Status 5-9 cigarettes (between 1/4 to 1/2 pack)/day in last 30 days entered on: 08/05/21 Sex Female Care Team PersonnelName: Ray Cox NP [facility] [address] [place], [place] [address]
--- OUTSIDE RECORDS SUMMARY | 2022-05-26 16:43 | XMS_ITS | Continuity of Care Document ---
:1970 Author Organization [facility] Adult Address [address] [place] [address]- Care Team Providers Name Role Phone Brooke JAVIER, Ray Mcleod Primary Care Physician [place] [facility] [place] 11/18[place]19 - 12/21/19 [facility] [address] [place] [address]- [facility] Attending Physician: Not on Staff, Attending MD [...] vaccine3 11/22/10 Given 1Result Comment: [facility] [phone] Comment: [10/01/2015] per [id number] Comment: vis given Medications albuterol CFC free 90 mcg/inh inhalation aerosol 2, puffs, Inhalation, Every 4 hours, PRN, # 18 Gm, Refills 5, Tot. Refills 5, Maintenance, 09/23/19 15:56:00 EDT, Aerosol, Route to Pharmacy Electronically, [id number], [facility], 165, cm, 06/05/19 13:45:... Start Date: 09/23/19 Stop Date: 03/21/20 Status: Orderedaspirin 81 mg oral delayed release tablet 81 mg, 1, tablet, By Mouth, Daily, do not crush or chew, # 30 tablet, Refills 11, Tot. Refills 11, Maintenance, 08/13/19 11:18:00 EDT, Route to Pharmacy Electronically, [facility] -, 165, cm, 06/05/19 13:45:00 EST, Height Start Date: 08/13/19 Status: Orderedatorvastatin 80 mg oral tablet 1 tablet = 80 mg, By Mouth, Daily, # 90 tablet, 4 Refills, Maintenance, 06/05/19 14:25:00 EST, Tablet, [facility], 165, cm, 06/05/19 13:45:00 EST, Height Start Date: 06/05/19 Status: OrderedBARIATRIC WHEELCHAIR BARIATRIC WHEELCHAIR, See Instructions, # 1 each, Refills 0, Tot. Refills 0, Maintenance, WITH FOOT RESTS. DX UNSTEADY GAIT, LENGTH OF NEED:LIFETIME [facility] [phone], 08/04/19 15:18:00 EST, Compound Start Date: 08/04/19 [...] 12/08/19 9:44:00 EDT, Route to Pharmacy Electronically, [facility], 158, cm, 11/25/19 17:19:00 EDT, Height, 161, kg, 11/10/19 18:44... Start Date: 12/08/19 Status: OrderedHumalog Kwik Pen 100 units/mL subcutaneous injection See Instructions, Max daily dose 70 units, take per sliding scale from office 3 times daily with meals. E11.65, # 30 mL, 5 Refills, Maintenance, 10/22/19 15:40:00 EDT, [facility], 165, cm, 06/05/19 13:45:00 EST, Height Start Date: 10/22/19 Status: Orderedhydrochlorothiazide-lisinopril 25 mg-20 mg oral tablet 1 tablet, By Mouth, Daily, # 90 tablet, 3 Refills, Maintenance, 06/05/19 14:24:00 EST, Tablet, [facility], 1 tablet By [...] 08/04/19 14:12:00 EST, Route to Pharmacy Electronically, [facility] Start Date: 08/04/19 Stop Date: 01/31/20 Status: OrderedLantus Solostar Pen 100 units/mL subcutaneous solution See Instructions, Take 35 units twice daily. E11.65, # 30 mL, 5 Refills, Maintenance, 10/22/19 15:41:00 EDT, [facility], 165, cm, 06/05/19 13:45:00 EST, Height Start Date: 10/22/19 Status: Orderedlevothyroxine 0.2 mg oral tablet 1 tablet = 200 mcg, By Mouth, Daily, Labs needed prior to refills 09/04/2019. See 09/03 msg., # 90 tablet, 1 Refills, Maintenance, 09/04/19 16:38:00 EDT, Tablet, [facility], change in dose, 165, cm, 06/05/19 13:45:00 EST, Height Start Date: 09/04/19 Stop Date: 03/02/20 Status: Orderedloratadine 10 mg oral tablet 10 mg, 1, tablet, By Mouth, Daily, # 90 tablet, Refills 1, Tot. Refills 1, Maintenance, 12/09/19 9:24:00 EDT, Route to Pharmacy Electronically, [facility], 158, cm, 11/25/19 17:19:00 EDT, Height, 161, kg, 11/10/19 18:44:00 EDT, Dry... Start Date: 12/09/19 Stop Date: 06/06/20 Status: Orderedomeprazole 20 mg oral enteric coated capsule 1 capsule = 20 mg, By Mouth, Daily, take 1/2-1 hour before breakfast, # 30 capsule, 2 Refills, Maintenance, 10/06/19 14:57:00 EDT, EC Capsule, [facility], 165, cm, 06/05/19 13:45:00EST, Height Start Date: 10/06/19 Status: OrderedPen [place], 31 G x 8 mm BD Ultra [...] tablet, 0 Refills, Maintenance, Tablet Start Date: 6/20/11 Status: Ordered Problem List Condition Effective Dates [...] Unsteady gait(Confirmed) Active Uses walker(Confirmed) Active 1iin [id number] the Suboxone program Social History Social History Type Response Smoking Status Current every day smoker; Ty pe: Cigarettes; Other: 10 a day; entered on: 11/25/15 Sex Female
--- OUTSIDE RECORDS SUMMARY | 2022-05-26 16:43 | XMS_ITS | Continuity of Care Document ---
:1970 Author Organization [facility] ([facility] Adult Address [address] [place] [address]- Care Team Providers Name Role Phone Brooke HEARING STENOGRAPHER, Ray Mcloed Primary Care Physician [place] [facility] [place]/20 [facility] Adult [address] [place] [id number]- Allergies, Adverse Reactions, Alerts Substance Reaction Severity [...] pneumococcal 23-valent vaccine3 11/22/10 Given 1Result Comment: [facility] [phone] Comment: [10/01/2015] per [id number] Comment: vis given Medications albuterol CFC free 90 mcg/inh inhalation aerosol 2, puffs, Inhalation, Every 4 hours, PRN, # 18 Gm, Refills 5, Tot. Refills 5, Maintenance, 01/13/20 11:29:00 EDT, Aerosol, Route to Pharmacy Electronically, [id number], [facility], 158, cm, 11/25/19 17:19:... Start Date: 01/13/20 Stop Date: 07/11/20 Status: Orderedaspirin 81 mg oral delayed release tablet 81 mg, 1, tablet, By Mouth, Daily, do not crush or chew, # 30 tablet, Refills 11, Tot. Refills 11, Maintenance, 08/13/19 11:18:00 EDT, Route to Pharmacy Electronically, [facility], 165, cm, 06/05/19 13:45:00 EST, Height Start Date: 08/13/19 Status: Orderedatorvastatin 80 mg oral tablet 1 tablet = 80 mg, By Mouth, Daily, # 90 tablet, 1 Refills, Maintenance, 05/25/20 16:29:00 EST, Tablet, [facility], 158, cm, 04/07/20 15:28:00 [...] 10/23/17 6:29:08, Tablet Start Date: 03/26/17 Status: Orderedfluconazole 150 mg oral tablet 1 tablet = 150 mg, By Mouth, Once, May repeat after 72 hours, # 2 tablet, 0 Refills, Soft Stop, 04/07/20 16:10:00 EST, Tablet, [facility], 158, cm, 04/07/20 15:28:00 [...] Maintenance, 01/05/2010:50:00 EDT, Route to Pharmacy Electronically, [facility], 158, cm, 11/25/19 17:19:00 EDT, Height, 161, kg, 11/10/19 18:44:00 EDT... Start Date: 01/06/20 Status: OrderedHumalog Kwik Pen 100 units/mL subcutaneous injection See Instructions, Max daily dose 70 units, take per sliding scale from office 3 times daily with meals. E11.65, # 30 mL, 5 Refills, Maintenance, 10/22/19 15:40:00 EDT, [facility], 165, cm, 06/05/19 13:45:00 EST, Height Start Date: 10/22/19 Status: Orderedhydrochlorothiazide-lisinopril 25 mg-20 mg oral tablet 1 tablet, By Mouth, Daily, # 90 tablet, 0 Refills, Maintenance, 05/25/20 16:29:00 EST, Tablet, [facility], 1 tablet By Mouth Daily, 158, [...] 01/26/20 15:33:00 EDT, Route to Pharmacy Electronically, [facility] Start Date: 01/26/20 Stop Date: 07/24/20 Status: OrderedLantus Solostar Pen 100 units/mL subcutaneous solution See Instructions, Take 35 units twice daily. E11.65, # 30 mL, 5 Refills, Maintenance, 10/22/19 15:41:00 EDT, [facility], 165, cm, 06/05/19 13:45:00 EST, Height Start Date: 10/22/19 Status: Orderedlevothyroxine 0.2 mg oral tablet 1 tablet = 200 mcg, By Mouth, Daily, # 90 tablet, 1 Refills, Maintenance, 03/02/20 16:38:00 EDT, Tablet, [facility], 158, cm, 11/25/19 17:19:00 EDT, Height, 161, kg, 11/10/19 18:44:00 EDT, Dry Weight Start Date: 03/02/20 Stop Date: 08/29/20 Status: Orderedloratadine 10 mg oral tablet 10 mg, 1, tablet, By Mouth, Daily, # 90 tablet, Refills 1, Tot. Refills 1, Maintenance, 06/07/20 7:38:00 EST, Route to Pharmacy Electronically, [facility], 158, cm, 04/07/20 15:28:00 EST, Height, 161, kg, 11/10/19 18:44:00 EDT, Dry... Start Date: 06/07/20 Stop Date: 12/04/20 Status: Orderedomeprazole 20 mg oral enteric coated capsule 1 capsule = 20 mg, By Mouth, Daily, take 1/2-1 hour before breakfast, # 30 capsule, 2 Refills, Maintenance, 04/21/20 10:02:00 EST, EC Capsule, [facility], 158, cm, 04/07/20 15:28:00EST, Height, 161, kg, 11/10/19 18:44:00 EDT, Dry... Start Date: 04/21/20 Status: OrderedPen [place], 31 G x 8 mm BD Ultra [...] Unsteady gait(Confirmed) Active Uses walker(Confirmed) Active 1iin [id number] the Suboxone program Social History Social History Type Response Smoking Status Current every day smoker; Ty pe: Cigarettes; Other: 10 a day; entered on: 11/25/15 Sex Female
--- OUTSIDE RECORDS SUMMARY | 2022-05-26 16:43 | XMS_ITS | Continuity of Care Document ---
:1970 Author Organization [facility] Address [address] [place] [id number]- Care Team Providers Name Role Phone Henry CRUZ, Brenna Cadet Primary Care Physician [phone] Encounter [facility] Date(s): 04/16/22 - 05/04/[address] [address]- Encounter Diagnosis Hypoxia (Final) - 04/16/22 Discharge Disposition: Disch/Trans to a [facility] Attending Physician: Brenda Chinchilla MD Admitting Physician: Jillian Reed MD Referring Physician: Not on Staff, Referring MD Allergies, Adverse Reactions, Alerts Substance Reaction Severity Status amoxicillin Active penicillin hives Persistent Moderate Active Januvia Active Invokana Active Latex hives Persistent Moderate Active metFORMIN Active Immunizations Given and Recorded [...] H1N1, inactive(oldterm) 06/21/09 Recorde d 1Result Comment: [facility]: [id number] Comment: [facility] [phone] Comment: [10/01/2015] per [id number] Comment: vis given Medications AmLODipine Tablet 10 mg, Tablet, By Mouth, 05/04/22 9:00:00 EST Start Date: 05/04/22 Stop Date: 05/04/22 Status: CompletedAmLODipine Tablet 10 mg, By Mouth, Daily, Refills 0, Maintenance, 05/04/22 9:27:00 EST, Partial fill upon patient request if the prescription is for a schedule II opioid drug. Start Date: 05/04/22 Status: OrderedArtificial Tears 1.4% Eyes, Both, Every 4 hours, PRN Other, Dryness., 0 Refills, Maintenance, 05/04/22 9:43:00 EST, Ophth Solution, Partial fill upon patient request if the prescription is for a schedule II opioid drug. Start Date: 05/04/22 Status: OrderedAspirin Low Dose 81 mg oral delayed release tablet 1 tablet, By Mouth, Daily, no CRUSH OR CHEW, # 30 tablet, 11 Refills, [facility], 158, cm, 04/29/21 11:38:00 EST, Height, 161, kg, 11/10/19 18:44:00 EDT, Dry Weight Start Date: 07/11/21 Status: Orderedatorvastatin 80 mg oral tablet 1 tablet, By Mouth, Daily, # 90 tablet, 1 Refills, Maintenance, 12/16/21 12:20:00 EDT, [facility], 158, cm, 10/14/21 14:09:00 EDT, Height [...] EST, Supply Start Date: 07/12/20 Status: OrderedclonazePAM 0.5 mg oral tablet 1 tablet = 0.5 mg, By Mouth, Daily, PRN Anxiety, 0 Refills, Maintenance, 05/04/22 9:27:00 EST, Tablet, Partial fill upon patient request if the prescription is for a schedule II opioid drug. Start Date: 05/04/22 Status: Ordereddexamethasone 0.5 mg oral tablet 1.5 tablet = 0.75 mg, By Mouth, Daily, 0 Refills, Acute, 05/04/22 9:42:00 EST, Tablet, Partial fill upon patient request if the prescription is for a schedule II opioid drug. Start Date: 05/04/22 Status: OrderedDiapers See Instructions, # 1 each, Refills 11, Tot. Refills 11, Maintenance, Change 5 times daily Life long(99) Urinary Incontinence (R32) Size 45-58 , 07/26/20 11:37:00 EST, Supply Start Date: 07/26/20 Status: OrderedFreeStyle [place] Lite kit FreeStyle [place] Lite kit, See Instructions, # 1 kit, [...] Dry Weight Start Date: 09/26/21 Status: Orderedgabapentin 300 mg oral capsule 600 mg, Capsule, By Mouth, 05/04/22 9:00:00 EST Start Date: 05/04/22 Stop Date: 05/04/22 Status: Completedgabapentin 600 mg oral tablet 1 tablet = 600 mg, By Mouth, 3 times a day, # 90 tablet, 5 Refills, Maintenance, 09/01/21 13:44:00 EDT, Tablet, [facility], Partial fill upon patient request if [...] 13:09:00 EDT, Compound Start Date: 08/24/20 Status: OrderedHydrocortisone 2.5% cream as 1:1 mix with cerave cream Hydrocortisone 2.5% cream as 1:1 mix with cerave cream, See Instructions, # 240 Gm, Refills 0, Tot. Refills 0, Maintenance, Apply three times daily to affected skin., 12/25/17 14:50:56 EDT, Compound Start Date: 12/25/17 Status: OrderedhydrOXYzine hydrochloride 10 mg oral tablet 1 tablet = 10 mg, By Mouth, 3 times a day, PRN Anxiety, 0 Refills, Maintenance, 05/04/22 9:27:00 EST, Tablet, Partial fill upon patient request if the prescription is for a schedule II opioid drug. Start Date: 05/04/22 Status: Orderedibuprofen 800 mg oral tablet 1, tablet, By Mouth, 3 times a day, PRN, # 90 tablet, Refills 5, NEEDED FOR PAIN WITH FOOD OR MILK, Route to Pharmacy Electronically, [id number], 158, cm, 10/14/21 14:09:00 EDT, Height Start Date: 11/30/21 Status: Orderedinsulin lispro 100 u/ml subcutaneous injection 12 - 27 units, Subcutaneous Infusion, 3 times a day before meals, USE THIS SCALE 05/09 - ONWARDS UNTIL PHYSICIAN CHANGES IT << Sliding Scale Comments >> 100 - 149 12 units Call if less than 70 150 - 199 15 units 200 - 249 18 units 250 - 29... Start Date: 05/09/22 Status: Orderedinsulin lispro 100 units/mL injectable solution 14 - 34 units, Subcutaneous Infusion, 3 times a day before meals, USE THIS SCALE 05/05- 05/08 <<Sliding Scale Comments >> 100 - 149 14 units Call if less than 70 150 - 199 18 units 200 - 66547 units 250 - 299 26 units 300 - 349 30 u... Start Date: 05/05/22 Stop Date: 05/08/22 Status: OrderedLantus Inj 0.28 mL = 28 units, Subcutaneous Injection, Daily in AM, 28 units in AM om 05/04 22 units in AM on 05/08 20 units in AM on 05/09 onwards until changed by PCP, 0 Refills, Maintenance, 05/04/22 9:27:00 EST, Injection, Partial fill upon patient re... Start Date: 05/04/22 Status: OrderedLantus Inj 0.36 mL = 36 units, Subcutaneous Injection, Daily at bedtime, 36 units in PM om 05/04 28 units in PM on 05/08 25 units in PM on 05/09 onwards until changed by PCP, 0 Refills, Maintenance, 229:27:00 EST, Injection, Partial fill upon patie... Start Date: 05/04/22 Status: Orderedlevothyroxine 75 mcg (0.075 mg) oral tablet 1 tablet = 75 mcg, By Mouth, Daily, # 30 tablet, 0 Refills, Maintenance, 04/19/22 12:39:00 EST, Tablet, Partial fill upon patient request if the prescription is for a schedule II opioid drug. Start Date: 04/19/22 Status: Orderedloratadine 10 mg oral tablet 1, tablet, By Mouth, Daily, # 90 tablet, Refills 1, Route to Pharmacy Electronically, [facility], 158, cm, 10/14/21 14:09:00 EDT, Height, 161, kg, 11/10/19 18:44:00 EDT, Dry Weight Start Date: 11/04/21 Status: Orderedomeprazole 20 mg oral enteric coated capsule 1 capsule = 20 mg, By Mouth, 2 times a day, for 90 days, # 180 capsule, 6 Refills, Physician Stop 04/27/23 14:10:00 EST, 08/05/21 14:10:00 EST, [facility], 158, cm, 08/05/21 13:35:00 EST, Height, 161, kg, 11/10/19 18:44:00 EDT, Dry... Start Date: 08/05/21 Stop Date: 04/27/23 Status: Orderedpadded toilet seat padded toilet seat, See Instructions, # 1 each, Refills 0, Tot. Refills 0, Maintenance, dx: buttock sores, 09/19/21 11:23:00 EDT, Supply Start Date: 09/19/21 Status: OrderedPen [place], 31 G x 8 mm BD Ultra [...] Gm, Refills 5, Route to Pharmacy Electronically, [id number], [facility], 158, cm, 04/29/21 11:38:00 EST, Height, [...] II opioid drug. Start Date: 04/29/21 Status: OrderedTiotropium Inhalation, Daily, Give with Albuterol inhaler, 0 Refills, Maintenance, 05/04/22 9:42:00 EST, Inhaler, Partial fill upon patient request if the prescription is for a schedule II opioid drug. Start Date: 05/04/22 Status: Orderedtopiramate 50 mg oral tablet TAKE [...] dependence2 Confirmed Active Seasonal allergies Confirmed Active Severe obesity Confirmed Active Substance abuse Confirmed Active Tobacco abuse Confirmed Active Diabetes mellitus type Confirmed Active 2 in obese Unsteady gait Confirmed Active Uses walker Confirmed Active 1iin [id number] the Suboxone program Results Radiology Reports Exam Date Time Procedure Performing Provider Status 04/19/22 12:41 AM Chest Portable Teagan Sosa; Auth (Verified) Notes:(Chest Portable) Reason For Exam: Shortness of BreathRESULT: Chest Portable Chest Portable Reason: Shortness of Breath; Clinical Question(s): ARDS COMPARISON: 04/16/2022 FINDINGS: Extensive bilateral lung disease is unchanged IMPRESSION: No change WSN: [id number] Ordering Physician: Fartun Pandey Dictated By: Saeed Taylor MD Dictated Date/Time: 04/19/22 8:15 am Reviewed By: Saeed Taylor MD Signed By: Saeed Taylor MD Signed Date/Time: 04/19/22 8:15 am Transcribed By: NAIF Transcribed Date/Time: 04/19/22 8:14 am Exam Date Time Procedure Performing Provider Status 04/17/22 1:[address] Chest W/O Contrast Rebecca Escalante; Auth (Ve rified) Notes:(CT Chest W/O Contrast) Reason For Exam: AtelectasisRESULT: CT Chest W/O Contrast CT Chest W/O Contrast INDICATION/CLINICAL QUESTION: Atelectasis; Clinical Question(s): Progression Regression; ARDS; COMPARISON: Chest x-ray 04/16/2022. TECHNIQUE: Helical CT scan of the chest without IV contrast, formatted in 3 planes. Weight-based protocol was performed using automatic exposure control. CTDIvol Body: 23.90 mGy, DLP Body: 817 mGy*cm. 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 TRACHEA AND MAIN BRONCHI: Patent without evidence of tracheal or endobronchial lesion. LUNGS AND PLEURA: Extensive diffuse groundglass and consolidative airspace opacities appear increasing in the interval compared to previous portable chest x-ray. No effusions or pneumothorax is seen. AORTA: Ectatic ascending thoracic aorta measuring up to 4.2 cm. MEDIASTINUM and CORY: There is mediastinal adenopathy measuring up to 1.7 cm in the subcarinal region. Heart appears enlarged. No pericardial effusion. No esophageal abnormalities. CHEST WALL SOFT TISSUES: Obese. DIAPHRAGM AND UPPER ABDOMEN: Partially included spleen is upper limits of normal. BONES: No acute abnormalities, no focal osseous lesions. There is severe osteoarthritis in the right shoulder. Mild degenerative changes involving the included spine. IMPRESSION: 1. Worsening severe diffuse airspace opacities. 2. The heart is enlarged. 3. No effusions. WSN: [id number] Ordering Physician: Mamadou Lopez Dictated By: Jhon Hart MD Dictated Date/Time: 04/17/22 1:17 pm Reviewed By: Jhon Hart MD Signed By: Jhon Hart MD Signed Date/Time: 04/17/22 1:17 pm Transcribed By: NAIF Transcribed Date/Time: 04/17/22 1:12 pm Exam Date Time Procedure Performing Provider Status 04/16/22 4:31 PM Chest Portable Baron Estrada; Denise (Verified) Notes:(Chest Portable) Reason For Exam: CoughRESULT: Chest Portable Chest Portable AP upright at 4:18 PM Hx of Present Illness: see level 1 sheet; Reason: Cough, hypoxia; Clinical Question(s): Pneumonia COMPARISON: Multiple priors, the most recent 12/18/2011 FINDINGS: LINES AND TUBES: None. LUNGS AND PLEURA: There is diffusely increased interstitial and airspace density in both lungs. No pleural effusion. No pneumothorax. HEART, MEDIASTINUM AND CORY: Heart is normal in size. Normal mediastinal and hilar contour. BONES AND SOFT TISSUES: No acute abnormality. IMPRESSION: Diffusely increased interstitial and airspace density in both lungs. The differential includes pulmonary edema as well as multifocal pneumonia. WSN: [id number] Ordering Physician: Jesus Stevens Dictated By: Saeed Pulido MD Dictated Date/Time: 04/16/22 4:52 pm Reviewed By: Saeed Pulido MD Signed By: Saeed Pulido MD Signed Date/Time: 04/16/22 4:52 pm Transcribed By: NAIF Transcribed Date/Time: 04/16/22 4:50 pm Vital Signs Most recent to oldest 1 2 3 [Reference Range]: Height 165 cm 165 cm 165 cm (05/04/22 9:29 AM) (05/03/22 7:52 PM) (05/02/22 4 :02 PM) Weight 157.6 kg 160.8 kg 160.8 kg (04/19/22 11:48 AM) (04/16/22 9:45 PM) (04/16/22 9:42 PM) Oxygen Saturation [94-100 95 % 92 % 96 % %] (05/04/22 7:00 AM) *L* (05/03/22 7:52 PM) (05/03/22 11:00 PM) Pulse Rate [55-90 bpm] 70 bpm 56 bpm 74 bpm (05/04/22 9:29 AM) (05/04/22 7:00 AM) (05/03/22 11 :00 PM) Body Mass Index 59.06 kg/m2 [18.5-24.99 kg/m2] *>HHI* (04/16/22 9:45 PM) Blood Pressure 153/73 mm Hg 153/73 mm Hg 135/57 mm Hg [90-138/55-84 mm Hg] *H* *H* (05/04/22 7: 00 AM) (05/04/22 9:29 AM) (05/04/22 9:21 AM) Respiratory Rate [16-30 20 br/min 18 br/min 18 br/mi n br/min] (05/04/22 10:21 AM) (05/04/22 9:29 AM) (05/04/22 9: 21 AM) Temperature [96.8-100.4 97.4 DegF 97.5 DegF 98.9 Deg F DegF] (05/04/22 9:29 AM) (05/04/22 7:00 AM) (05/03/22 11 :00 PM) Liters per Minute 1 L/min 1 L/min 1 L/min (05/03/22 7:52 PM) (05/03/22 7:00 AM) (05/03/22 2:00 AM) Mode of Delivery (Oxygen) Room air Room air Nasal cannula (05/04/22 7:00 AM) (05/03/22 11:00 PM) (05/03/22 7:52 PM) Blood pressure sites Arm, right Arm, right Arm, right (05/04/22 9:29 AM) (05/04/22 7:00 AM) (05/03/22 11 :00 PM) Temperature Route Oral Oral Oral (05/04/22 9:29 AM) (05/04/22 7:00 AM) (05/03/22 11 :00 PM) Dry Weight 160.8 kg (04/16/22 9:45 PM) Weight Obtained Via Bed scale Bed scale Bed scale (04/19/22 11:48 AM) (04/16/22 9:45 PM) (04/16/22 9:42 PM) Dry Weight Obtained Via Bed scale (04/16/22 9:45 PM) Social History Social History Type Response Smoking Status 5-9 cigarettes (between 1/4 to 1/2 pack)/day in last 30 days entered on: 08/05/21 Sex Female History and physical note Jillian Reed MD: PERFORM, SIGN, VERIFY, MODIFY, SIGN Event Display: History and Physical Hospital Authored Date: Patient: BETZAIDA SOLIS Age: 51 years Sex: Female : 1970 Associated Diagnoses: None Author: Jillian Reed MD Visit Information Chief Complaint: Sent with low o2 sats measurement. History of Present Illness The pt is a 51 yo F w pmhx of obesity, hypoventilation, chronic respiratory failure, diagnosed with Covid 19 infection and finished last dose of Decadron today, COPD, IDDM w complications, Htn, Hlp, Hypothyroidism, Narcotic dependance on Suboxone. She was at her usuall state of health until today and sent from [facility], when she was found to have 60% O2 sats in RA, placed on supplementalo2. She did not c/o sob. She had bedside usg revealing multiple B lines, diagnosed pulmonary edema and given 20 mg of IV Lasix and placed on Bipap. In ED she was 87% on 15L, after Bipap placed on 50% Fio2 has sats of 90-94%. 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 Hyperlipidemia / SNOMED CT 21879999 / Confirmed Hypertension / SNOMED CT 3477320370 / Confirmed Hypothyroidism / SNOMED CT 52672343 / Confirmed Impaired mobility / SNOMED CT 875355554 / Confirmed Insomnia / SNOMED CT 236736380 / Confirmed Kidney stone / SNOMED CT 118151717 / Confirmed Low back pain / SNOMED CT 320725142 / Confirmed Microalbuminuria due to type 2 diabetes mellitus / SNOMED CT 9139917499 / Confirmed Microalbuminuric diabetic nephropathy / SNOMED CT 672871221 / Confirmed Morbid obesity with BMI of 50.0-59.9, adult / SNOMED CT 3353143384 / Confirmed Narcotic dependence / SNOMED CT 698693814 / Confirmed In the Suboxone program Obesity / SNOMED CT 5472349137 / Confirmed Seasonal allergies / SNOMED CT 215243082 / Confirmed Severe obesity / SNOMED CT 9294373213 / Confirmed Substance abuse / SNOMED CT 522401314 / Confirmed Tobacco abuse / SNOMED CT 694200920 / Confirmed Unsteady gait / SNOMED CT 911737322 / Confirmed Uses walker / SNOMED CT 010927814 / Confirmed Allergies Allergic Reactions (Selected) Persistent Moderate Latex- Hives. Penicillin- Hives. Severity Not Documented Amoxicillin- No reactions were documented. Invokana- No reactions were documented. Januvia- No reactions were documented. MetFORMIN- No reactions were documented. Current medications (Selected) Inpatient Medications Ordered Acetaminophen Tablet: 650 mg, Tablet, By Mouth, Every 4 hours, PRN for Pain , Mild, Temperature Greater than 100.5, Routine, 04/16/22 18:19:00 EST Docusate/Senna Tablet: 1 tablet, Tablet, By Mouth, Daily, PRN for Constipation, Routine, 04/17/22 0:19:00 EST Insulin LISPRO Sliding Scale: 2-10 units, Injection, Subcutaneous Injection, 3 times a day before meals, Routine, 04/17/22 7:00:00 EST Lantus Inj: 28 units, Injection, Subcutaneous Injection, Daily at bedtime, Routine, 04/17/22 21:00:00 EST Lantus Inj: 8 units, Injection, Subcutaneous Injection, Daily in AM, Routine, 04/17/22 9:00:00 EST Melatonin Tablet: 3 mg, Tablet, By Mouth, Daily at bedtime, PRN for Insomnia, Routine, 04/16/22 18:19:00 EST MiraLax Powder: 17 Gm, Powder, By Mouth, Daily for 14 days, Dissolve in 8 ounces of water., PRN for Constipation, Routine, 04/16/22 18:19:00 EST, Stop date 04/30/22 18:18:00 EST NaCL 0.9% Flush: 3 mL, Injection, IV Push, Every 8 hours, PRN for Line/Tube Patency, Routine, 04/16/22 18:19:00 EST NaCL 0.9% Flush: 3 mL, Injection, IV Push, Every 8 hours, Routine, 04/16/22 19:00:00 EST PROzac 20 mg oral capsule: 60 mg, Capsule, By Mouth, Daily, Routine, 04/17/22 9:00:00 EST Robitussin DM Liquid: 10 mL, Syrup, By Mouth, Every 4 hours, PRN for Cough, Routine, 04/16/22 18:19:00 EST Simethicone Tablet: 80 mg, Chew Tablet, Chew, 3 times a day, PRN for Gas, Routine, 04/16/22 18:19:00EST Suboxone 8 mg-2 mg Sublingual Film: 1 film, Film, Sublingual, Daily, Routine, 04/17/22 9:00:00 EST amLODIPine 5 mg oral tablet: 5 mg, Tablet, By Mouth, Daily, Routine, 04/17/22 9:00:00 EST aspirin 81 mg oral delayed release tablet: 81 mg, EC Tablet, By Mouth, Daily, Routine, 04/17/22 9:00:00 EST atorvastatin 80 mg oral tablet: 80 mg, Tablet, By Mouth, Daily, Routine, 04/17/22 9:00:00 EST cholecalciferol 1000 intl units oral tablet: 4,000 International_Units, Tablet, By Mouth, Daily, Routine, 04/17/22 9:00:00 EST clonazePAM 1 mg oral tablet: 0.5 mg, Tablet, By Mouth, Daily, Routine, 04/17/22 9:00:00 EST gabapentin 300 mg oral capsule: 600 mg, Capsule, By Mouth, Every 8 hours, Routine, 04/17/22 1:00:00 EST loratadine 10 mg oral tablet: 10 mg, Tablet, By Mouth, Daily, Routine, 04/17/22 9:00:00 EST pantoprazole 20 mg oral delayed release tablet: 20 mg, EC Tablet, By Mouth, Daily, Indicated for: Continuation from Home, Routine, 04/17/22 9:00:00 EST thiamine 100 mg oral tablet: 100 mg, Tablet, By Mouth, Daily, Routine, 04/17/22 9:00:00 EST traZODone 50 mg oral tablet: 100 mg, Tablet, By Mouth, Daily at bedtime, PRN for Insomnia, Routine, 04/17/22 0:20:00 EST zinc sulfate 220 mg oral capsule: 220 mg, Capsule, By Mouth, Daily at bedtime, Routine, 04/17/22 21:00:00 EST Prescriptions Prescribed Aspirin Low Dose 81 mg oral delayed release tablet: 1 tablet, By Mouth, Daily, no CRUSH OR CHEW, # 30 tablet, 11 Refills, [facility], 158, cm, 04/29/21 11:38:00 EST, Height, 161, kg, 11/10/19 18:44:00 EDT, Dry Weight Humalog Kwik Pen 100 units/mL subcutaneous injection: See Instructions, Take 22 units wit breakfast,17 units with lunch, 22 units with dinner. E11.65, # 30 mL, 5 Refills, Maintenance, 08/31/21 13:03:00 EDT, [facility], 158, cm, 08/05/21 13:35:00 EST, Height, 161, kg, 11/10/19 18:44:0... ProAir HFA 90 mcg/inh inhalation aerosol with adapter: 2, puffs, Inhalation, Every 4 hours, PRN, # 8.5 Gm, Refills 5, Route to Pharmacy Electronically, [id number], [facility], 158, cm, 04/29/21 11:38:00 EST, Height, 161, kg, 11/10/19 18:44:00 EDT, Dry Weight amLODIPine 5 mg oral tablet: 1 tablet = 5 mg, By Mouth, Daily, TAKE 1 TABLET BY MOUTH EVERY DAY, # 90 tablet, 2 Refills, Maintenance, 10/14/21 17:06:00 EDT, Tablet, [facility], Partial fill upon patient request if the prescription is for a schedule II opioid d... atorvastatin 80 mg oral tablet: 1 tablet, By Mouth, Daily, # 90 tablet, 1 Refills, Maintenance, 12/16/21 12:20:00 EDT, [facility], 158, cm, 10/14/21 14:09:00 EDT, Height gabapentin 600 mg oral tablet: 1 tablet = 600 mg, By Mouth, 3 times a day, # 90 tablet, 5 Refills, Maintenance, 09/01/21 13:44:00 EDT, Tablet, [facility], Partial fill upon patient request if the prescription is for a schedule II opioid drug., 158, cm, 08/05/21... levothyroxine 0.2 mg oral tablet: 1 tablet, By Mouth, Daily, # 90 tablet, 1 Refills, Maintenance, 09/27/21 18:47:00 EDT, [facility], 158, cm, 09/15/21 16:09:00 EDT, Height, 161, kg,11/10/19 18:44:00 EDT, Dry Weight loratadine 10 mg oral tablet: 1, tablet, By Mouth, Daily, # 90 tablet, Refills 1, Route to Pharmacy Electronically, [facility], 158, cm, 10/14/21 14:09:00 EDT, Height, 161, kg, 11/10/19 18:44:00 EDT, Dry Weight omeprazole 20 mg oral enteric coated capsule: 1 capsule = 20 mg, By Mouth, 2 times a day, for 90 days, # 180 capsule, 6 Refills, Physician Stop 04/27/23 14:10:00 EST, 08/05/21 14:10:00 EST, [facility], 158, cm, 08/05/21 13:35:00 EST, Height, 161, kg, 11/10/19 18:44:00 EDT, Dry... Documented Medications Documented PROzac 20 mg oral capsule: 60 mg, 3, capsule, By Mouth, Daily, Refills 0, Maintenance, 10/26/15 10:18:37 Suboxone 8 mg-2 mg sublingual film: 1 film, Sublingual, Daily, dissolve under the tongue, 0 Refills,Maintenance, 04/29/21 13:28:00 EST, Film, Partial fill upon patient request if the prescription is for a schedule II opioid drug. traZODone 100 mg oral tablet: TAKE 1 TO 3 TABLETS AT BEDTIME NEEDED Clonazepam 0.5 mg po qd prn Lantus 8 u in am and 28 u hs Social History Tobacco, substance abuse Family History Obesity Review of Systems Significant Constitutional, Eye, Skin, Head/Neck, ENMT, Respiratory, Cardio, Gastrointestinal, Breast, Gynecologic, Genitourinary, Endocrine, Muscoloskeletal, Immunologic, Hematologic, Lymphatic, Neurologic, Psychreviewed and negative except as noted above. Physical Examination Vital Signs Weight : Weight lb/oz 04/16/2022 21:45 EST Weight lb/oz 354 lb 8 oz 04/16/2022 21:42 EST Weight lb/oz 354 lb 8 oz . BMI : Body Mass Index 04/16/2022 21:45 EST Body Mass Index 59.06 kg/m2 >HHI . Height : Height 04/16/2022 21:45 EST Height 165 cm . General Appearance: Obese, Ill appearing. HEENT Head: Normocephalic, Atraumatic. Eyes: EOMI, PERRL, not Icteric. Neck: Supple, No lymphadenopathy. Cardiovascular Cardiac: PMI Non displaced, RRR, No M/G/R. Respiratory Respiratory: CTA, no wheezes, no crackles. Abdomen/GI Non-distended. Normal bowel sounds. Soft non-tender. No hepatosplenomegaly. No Herniae present. Extremities Edema. No clubbing. No cyanosis. Derm BLLE venous stasis changes. Neurologic Neuro Exam: CN 2-12 normal. Motor Exam: Motor strength (WNL, weak all over). Psychiatric Speech WNL. Thought processes WNL. Depressed. Results Review 7 day results Labs & Documents Laboratory : LABORATORY 04/16/2022 18:41 EST Glucose, POC 265 mg/dL H 04/16/2022 16:10 EST Influenza A PCR NEGATIVE Influenza B PCR NEGATIVE RSV PCR NEGATIVE COVID-19 PCR Specimen Source NASAL COVID-19 PCR Result POSITIVE 04/16/2022 16:09 EST pH Venous (POC) POC Cartridge 7.39 pCO2 Venous (POC) POC Cartridge 47.6 mm Hg pO2 Venous (POC) POC Cartridge 31 mm Hg L Est Bicarbonate (POC) POC Cartridge 28.7 mmol/L % O2 Sat Venous (POC) POC Cartridge 57 Base Excess (POC) POC Cartridge 4 Specimen Type - Blood Gas VENOUS Hemoglobin (POC) POC Cartridge 13.3 Gm/dL Hematocrit (POC) POC Cartridge 39 % Sodium (POC) POC Cartridge 136 mmol/L Potassium (POC) POC Cartridge 7.7 mmol/L C Glucose (POC) POC Cartridge 246 H Ionized Calcium (POC) POC Cartridge 1.00 mmol/L C 04/16/2022 16:00 EST Lactate 0.9 mmol/L 04/16/2022 15:50 EST WBC 10.1 k/mm3 RBC 4.48 m/mm3 Hgb 11.0 Gm/dL L Hct 36.6 % MCV 81.7 femtoliters MCH 24.6 pg L MCHC 30.1 g/dL L Platelet Count 201 k/mm3 RDW-SD 48.5 femtoliters H MPV 11.1 femtoliters Nucleated RBC (Automated) 0.0 #/100 WBC'S Abs. NRBC 0.0 k/mm3 Abs. Neut 8.0 k/mm3 H Abs. Lymph 1.5 k/mm3 Abs. Harlan 0.5 k/mm3 Abs. Eo 0.0 k/mm3 Abs. Baso 0.0 k/mm3 Neut % 79.0 % H Lymph % 15.0 % Harlan % 5.1 % Eos % 0.0 % Baso % 0.1 % Imm Gran 0.8 % Abs. Imm Gran 0.1 k/mm3 Sodium 137 mmol/L Potassium 5.5 mmol/L H Chloride 103 mmol/L Bicarbonate Level 26 mmol/L Anion Gap 8 Glucose Level 244 mg/dL H BUN 34 mg/dL H Creatinine-Blood 1.1 mg/dL H Estimated GFR Creatinine 63 ML/MIN/1.73 M2 Calcium 8.2 mg/dL L Protein, Total 8.3 Gm/dL H Albumin 2.9 Gm/dL L AG Ratio 0.5 Alkaline Phosphatase 146 units/L H AST (SGOT) 19 units/L ALT (SGPT) 10 units/L Bilirubin, Total 0.5 mg/dL Troponin T Quant <0.01 ng/mL Nt-Probnp 487 pg/mL H TSH 0.38 uIU/mL L Free T4 1.90 ng/dL H 04/16/2022 15:44 EST Glucose, POC 214 mg/dL H Imaging : RADIOLOGY 04/16/2022 16:31 EST Chest Portable Chest Portable IMPRESSION: CXR Diffusely increased interstitial and airspace density in both lungs. The differential includes pulmonary edema as well as multifocal pneumonia. EKG QTC Calculation(Bazett): 469 ms P [place]: 28 degrees R [place]: -17 degrees T [place]: 102 degrees Normal sinus rhythm Abnormal QRS-T angle, consider primary T wave abnormality Abnormal ECG When compared with ECG of 11-AUG-2016 12:10, Non-specific change in ST segment in Lateral leads T wave inversion no longer evident in Inferior leads T wave inversion now evident in Lateral leads Impression and Plan Acute on Chronic Hypoxic Respiratory Failure Multifactorial Pulmonary Edema DONATO, Hypoventilation Morbid Obesity COPD Covid 19 infection Tobacco abuse Hospitalization Plan -Admit to intercare -Tele -Cont Bipap as long as she can tolerate -Hold off of abx since there is other plausible explanation, post covid changes -Low threshold to initiate abx if pt worsens Fio2 requirement or becomes febrile -D dimer is only 1.04 with a high reference range of 1.01 in a pt w multiple comorbidities potentially increase the d dimer, including 10 dys old Covid 19 infection and finished Decadron today -10 days passed, no need for isolation -Bronchodilators -PRN IV Lasix -Cont Loratadine -No more Decadron -Low threshold to check ABG to asses oxygenation and PCO2 -Hold some of the meds, while npo except meds tonight, Vit C -Tobacco cessation Electrolyte Disturbances Hypocalcemia Hyperkalemia?, on iStat Plan -Follow up labs and correct prn Uncontrolled DM Complications Neuropathy Wound HLP Plan -POC/SSi q6h until takes po, than AC and HS -Hypoglycemia measures -Continue same home dose of Lantus -Cont Lucina -Cont Statin -Cont Vit D replacement, thiamine, held Vit C, bowel regimen -Lipid panel and Hgba1c in am -Wound care consult, cont Zonc and Bacitracin per clinic HTN Plan -Cont Amlodipine, asa Elevated Free T4 while depressed TSH Likely due to extra exogenous intake Plan -Hold Levothyroxine replacement. -Monitor TFT s once pt s acute illness resolves Narcotic Dependance Depression Anxiety Plan -Cont Suboxone -Cont SSRI -Cont PRN Bzd -Trazodone 100 mg hs prn to limit sedation GERD Plan -PPI Quality Measures Dvt, mod risk, chemical, bariatric NPO except meds and ice tonight, once better diabetic Full code Admission evaluation note Linette Tong MD: PERFORM, MODIFY, MODIFY Event Display: Admission Note Authored Date: [id number] Patient: ??BETZAIDA SOLIS ? Age:??51 Years?Sex:??Female?:??1970?? History of Present Illness Betzaida Hernandez is a 51 -year-old female with history of chronic respiratory failure, type 2 diabetes, COPD, Hypothyroidism, Narcotic dependance on Suboxone with recent hospitalization at [facility] for bilateral lower extremity swelling who presented to [facility] with COVID and hypoxia. ??He tested positive on 04/06??and completed a 10-day course of dexamethasone. ??She was admitted to??intercare for high flow nasal cannula??but required escalation of BiPAP due to ongoing hypoxia with last BIPAP settings showing an IPAP of 15 EPAP of 10 and FiO2 of 100%. ??ABG showed a ph??7.35/51.7/67. CT Chest showedworsening severe diffuse airspace opacities.?Pulmonology was consulted and recommended restartingdexamethasone and starting baricitinib.?Due to ongoing hypoxia transferred to the ICU was requested.??Of note she has been afebrile without any evidence of leukocytosis. ?? On evaluation, she reports feeling better??since coming to the hospital. ??She denies any shortness of breath but does report stress and hunger. Review of Systems negative except per HPI. Objective Vital Signs?? Temperature: 98 DegF (04/19/22 16:00:00) Temperature Route: Axillary (04/19/22 16:00:00) Pulse Rate: 61 bpm (04/19/22 10:00:00) Heart Rate Monitored: 72 bpm (04/19/22 17:00:00) Respiratory Rate: 20 br/min (04/19/22 17:25:00) Vented: No (04/19/22 17:00:00) Systolic Blood Pressure: 109 mm Hg (04/19/22 17:00:00) Diastolic Blood Pressure:??97 mm Hg??High (04/19/22 17:00:00) Blood pressure sites: Arm, left (04/19/22 17:00:00) Pulse Pressure: 12 mm Hg (04/19/22 17:00:00) Oxygen Saturation: 95 % (04/19/22 17:25:00) Mode of Delivery (Oxygen): High flow nasal cannula (04/19/22 16:56:00) FiO2: 80 % (04/19/22 17:25:00) Early Warning Score: 4 (04/19/22 10:58:32) SOFA Calculated: 4 (04/19/22 10:13:17) ? Physical Exam General: tired appearing Cardiac: RRR no murmurs rubs gallops Resp: diminished breath sounds bilaterally. no increased work of breathing noted GI: non tender non distended Extremities: chronic bilateral venous stasis Neuro: following all commands. alert and oriented x 4 Assessment/Plan Betzaida Hernandez is a 51-year-old female with history of chronic respiratory failure, type 2 diabetes,COPD, Hypothyroidism, Narcotic dependance on Suboxone with recent hospitalization at [facility] for bilateral lower extremity swelling who presented with acute on chronic hypoxic respiratory failure secondary to COVID and severe ARDS currently on BiPAP with improving O2 saturations. ?? NEURO Patient is slightly lethargic likely secondary to increased metabolic demands and possibly gabapentin currently at 600mg every 8 hours ?? Plan - continue gabapentin with holding parameters - continue fluoxetine - avoid sedating medications. ? CARDIAC Hx hypertension ?? Plan Continue amlodipine 5 mg ?? PULM Acute on chronic hypoxic respiratory failure with hypercarbia Severe ARDS secondary to COVID-19 pneumonia SaO2 is currently??98%??on FiO2 of 100, 518, PEEP of 10, tidal volume 860 Since her O2 sat is appropriate, she is mentating??appropriately and does not have evidence of increased work of breathing,??will hold off on intubation. ?? Plan - goal??SaO2 >85% - monitor mental status - can alternate between HFNC and BiPAP - continue dexamethasone 10mg daily and baricitinib - pulmonology following ? GI Plan - allow for clear liquids ? RENAL Urine output is 3 L in 24 hours. ??She is net -1.5 L in 24 hours BUN and creatinine is improving from admission ?? Plan - monitor UOP and renal function ? ENDO Type 2 DM Lantus 28 units and ISS at home HgA1c 9.6 Glucose POC not at goal likely due to steroids ?? Plan - continue lantus 28 units - adjusted insulin sliding scale - POC Q6hrs ? Infectious disease COVID-19 Afebrile and without elevation in WBC Low suspicion for associated bacterial pneumonia confirmed with antimicrobial stewardship that she does not qualify for other treatments currently ?? Plan - continue dexamethasone and baricitinib - f/u procalcitonin ? Quality measures Full code Enoxaparin DVT prophylaxis Clear liquids ? Linette Tong PGY4 p. [id number] Lazaro ? Histories Allergies Allergies ?(Active and Proposed Allergies Only) Invokana? (Severity: Unknown severity, Onset: Unknown) metFORMIN? (Severity: Unknown severity, Onset: Unknown) Januvia? (Severity: Unknown severity, Onset: Unknown) amoxicillin? (Severity: Unknown severity, Onset: Unknown) penicillin? (Severity: Persistent Moderate, Onset: Unknown) ?Reactions: hives Latex? (Severity: Persistent Moderate, Onset: Unknown) ?Reactions: hives ? Past Medical History/Problem List Active Problems??(30) Cervical radiculopathy Chronic respiratory failure COPD (chronic obstructive pulmonary disease) COVID-19 Depression Diabetes mellitus type 2 in obese Diabetic nephropathy Diabetic neuropathy GERD (gastroesophageal reflux disease) Heroin use Hyperlipidemia Hyperlipidemia Hypertension Hypothyroidism Impaired mobility Insomnia Kidney stone Low back pain Microalbuminuria due to type 2 diabetes mellitus Microalbuminuric diabetic nephropathy Morbid obesity with BMI of 50.0-59.9, adult Narcotic dependence Nephropathy, diabetic Obesity Seasonal allergies Severe obesity Substance abuse Tobacco abuse Unsteady gait Uses walker ? Past Surgical History Anterior cruciate ligament ? Social History Alcohol Details:??Use: Never. Employment/School Details:??Status: Disabled. Exercise Details:??Self assessment: Poor condition. Home/Environment Details:??Living situation: Home/Independent. ??Lives with: Significant other. Nutrition/Health Details:??Diet: Regular. Sexual Details:??Sexual orientation: Heterosexual. Substance Abuse Details:??Use: Past. ??Type: Heroin. Tobacco Details:??Use: 5-9 cigarettes (between 1/4 to 1/2 pack)/day in last 30 days. Electronic Cigarette/Vaping Details:??Electronic Cigarette Use: Never. ? Family History Mother: Diabetes mellitus type II Father: Diabetes mellitus type II ? Medications Home Medications Albuterol (ProAir HFA 90 mcg/inh inhalation aerosol with adapter)?2?puff(s)?Inhalation?Every 4 hours?as needed? NEEDED FOR WHEEZING Amlodipine (amLODIPine 5 mg oral tablet)?1?tab(s)?5?Milligram?By Mouth?Daily?for 90?Days?TAKE 1 TABLET BY MOUTH EVERY DAY Aspirin (Aspirin Low Dose 81 mg oral delayed release tablet)?1?tab(s)?By Mouth?Daily?no CRUSH OR CHEW Atorvastatin (atorvastatin 80 mg oral tablet)?1?tab(s)?By Mouth?Daily Buprenorphine-Naloxone (Suboxone 8 mg-2 mg sublingual film)?1?Film?Sublingual?Daily?dissolve under the tongue Clonazepam (clonazePAM 1 mg oral tablet)?1?tab(s)?1?Milligram?By Mouth?3 times a day Durable Medical Equipment (Bedpan)?See Instructions?DX: Morbid Obesity, Chronic low back pain, chronic knee pain Durable Medical Equipment (Bedside Commode)?See Instructions?DX: Morbid Obesity, Chronic low back pain, chronic knee painLength of need: lifetimeHT: 165cm ??WT: 164.1kg Durable Medical Equipment (Shower Chair)?See Instructions?DX: Morbid Obesity,Chronic ??Knee pain, Chronic low back painLength of need: lifetimeHT: 165cm ??WT: 164.1kg Durable Medical Equipment (Freestyle Lancets)?See Instructions?Use as instructed to test blood sugars before meals, at bedtime and as needed, 4-5x/day keep appointment for futher refills Durable Medical Equipment (Shower Chair)?See Instructions?Heavy duty shower chair Dx: Unsteady gait and abnormality of mobilityHeight 158cm Weight 161Kg Durable Medical Equipment (Bedside Commode)?See Instructions?Large Bedside CommodeImpaired Mobility (Z74.09)Unsteady Gait (R26.81)Daily use Life long (99) Durable Medical Equipment (Diapers)?See Instructions?Change 5 times dailyLife long (99)Urinary Incontinence (R32)Size 45-58 Durable Medical Equipment (HEAVY DUTY WHEELCHAIR WITH FOOT REST)?See Instructions?DX UNSTEADYGAIT (R26.81)JANE: LIFETIME (99) Durable Medical Equipment (Pen [place], 31 G x 8 mm BD Ultra Fine III)?See Instructions?Use to inject insulin up to 5x a day. E11.9 Durable Medical Equipment (Freestyle Lite Monitor)?See Instructions?Pt to check blood sugar 4x daily as directed for dx of E11.65 Durable Medical Equipment (padded toilet seat)?See Instructions?dx: buttock sores Durable Medical Equipment (Freestyle Lite Test Strips)?See Instructions?Check blood sugar 4 times daily. E11.65 Fluoxetine (PROzac 20 mg oral capsule)?60?Milligram?3?capsule?By Mouth?Daily Gabapentin (gabapentin 600 mg oral tablet)?1?tab(s)?600?Milligram?By Mouth?3 times a day?for 30?Days Hydrochlorothiazide (hydrochlorothiazide 25 mg oral tablet)?TAKE 1 TABLET BY MOUTH EVERY DAY FOR30 DAYS Hydrochlorothiazide (hydrochlorothiazide 25 mg oral tablet)?TAKE 1 TABLET BY MOUTH EVERY DAY FOR30 DAYS Hydrochlorothiazide-Lisinopril (hydrochlorothiazide-lisinopril 25 mg-20 mg oral tablet)?1?tab(s)?By Mouth?Daily HydrOXYzine (hydrOXYzine pamoate 50 mg oral capsule)?1?capsule?50?Milligram?By Mouth?Daily Ibuprofen (ibuprofen 800 mg oral tablet)?1?tablet?By Mouth?3 times a day?as needed? NEEDED FOR PAIN WITH FOOD OR MILK Insulin Glargine (Lantus Solostar Pen 100 units/mL subcutaneous solution)?See Instructions?Take 54 units twice daily. E11.65 Insulin Lispro (Humalog Kwik Pen 100 units/mL subcutaneous injection)?See Instructions?Take 22 units wit breakfast, 17 units with lunch, 22 units with dinner. E11.65 Levothyroxine (levothyroxine 75 mcg (0.075 mg) oral tablet)?1?tab(s)?75?Microgram?ByMouth?Daily Loratadine (loratadine 10 mg oral tablet)?1?tablet?By Mouth?Daily Miscellaneous Rx (Hydrocortisone 2.5% cream as 1:1 mix with cerave cream)?See Instructions?Apply three times daily to affected skin. Miscellaneous Rx (FreeStyle [place] Lite kit)?See Instructions?TEST BLOOD SUGAR FOUR TIMES DAILY Miscellaneous Rx (Ulticare Pen Needle 31 gauge x 10/17 )?See Instructions?USE DIRECTED FIVETIMES DAILY Omeprazole (omeprazole 20 mg oral enteric coated capsule)?1?capsule?20?Milligram?By Mouth?2 times a day?for 90?Days Topiramate (topiramate 50 mg oral tablet)?TAKE 1 TABLET BY MOUTH TWICE DAILY Trazodone (traZODone 100 mg oral tablet)?TAKE 1 TO 3 TABLETS AT BEDTIME NEEDED ? Inpatient Medications Medications (36) Active SCHEDULED: (19) Amlodipine 5 mg Tablet (amLODIPine 5 mg oral tablet) ??5 mg, By Mouth, Daily Aspirin 81 mg EC Tablet (aspirin 81 mg oral delayed release tablet) ??81 mg, By Mouth, Daily Atorvastatin 80 mg Tablet (atorvastatin 80 mg oral tablet) ??80 mg, By Mouth, Daily Baricitinib 2 mg Tablet (Baricitinib Tablet) ??2 mg, By Mouth, Daily buprenorphine-naloxone 8 mg-2 mg Film (Suboxone 8 mg-2 mg Sublingual Film) ??1 film, Sublingual, 3 times a day Dexamethasone 4 mg/mL Inj (Dexamethasone Inj) ??6 mg 1.5 mL, IV Push Slowly, Daily Enoxaparin 40 mg Inj (Enoxaparin Inj) ??40 mg 0.4 mL, Subcutaneous Injection, 2 times a day Fluoxetine 20 mg Capsule (PROzac 20 mg oral capsule) ??60 mg, By Mouth, Daily Gabapentin 300 mg Capsule (gabapentin 300 mg oral capsule) ??600 mg, By Mouth, Every 8 hours Insulin Glargine 100 units/mL Inj (Lantus Inj) ??28 units 0.28 mL, Subcutaneous Injection, Daily atbedtime Insulin Glargine 100 units/mL Inj (Lantus Inj) ??8 units 0.08 mL, Subcutaneous Injection, Daily in AM Insulin Lispro 100 units/mL Inj (3mL) (Insulin LISPRO Sliding Scale) ??2-10 units, Subcutaneous Injection, 3 times a day before meals Levothyroxine 75 mcg Tablet (levothyroxine 0.075 mg oral tablet) ??75 mcg, By Mouth, Daily Loratadine 10 mg Tablet (loratadine 10 mg oral tablet) ??10 mg, By Mouth, Daily NaCl 0.9% Flush 3ml (NaCL 0.9% Flush) ??3 mL, IV Push, Every 8 hours Pantoprazole 20 mg EC Tablet (pantoprazole 20 mg oral delayed release tablet) ??20 mg, By Mouth, Daily Thiamine 100 mg Tablet (thiamine 100 mg oral tablet) ??100 mg, By Mouth, Daily Vitamin D 1000 IU Tablet (cholecalciferol 1000 intl units oral tablet) ??4,000 International_Units,By Mouth, Daily Zinc Sulfate 220 mg Capsule (zinc sulfate 220 mg oral capsule) ??220 mg, By Mouth, Daily at bedtime CONTINUOUS: (0) PRN: (17) Acetaminophen 325 mg Tablet (Acetaminophen Tablet) ??650 mg, By Mouth, Every 4 hours Albuterol 90mcg/Inhalation Inhaler HFA (Ventolin 90 mcg Inhaler) ??180 mcg 2 puffs, Inhalation, Every 4 hours Albuterol/Ipratropium Inhalation Joanne 3mL (Duoneb Inhalation Solution) ??1 vials, BAND Nebulizer, Every 4 hours Clonazepam 0.5 mg Tablet (clonazePAM 1 mg oral tablet) ??0.5 mg, By Mouth, Daily Dextromethorphan-Guaifenesin 20 mg-200 mg/10 mL Liqu UD (Robitussin DM Liquid) ??10 mL, By Mouth, Every 4 hours Dextrose Inj Syringe (Dextrose 50% Inj Syringe (25Gm)) ??12.5 Gm, IV Push Slowly, Every 20 minutes Dextrose Inj Syringe (Dextrose 50% Inj Syringe (25Gm)) ??25 Gm, IV Push Slowly, Every 15 minutes Glucagon 1 mg Inj (Glucagon Inj) ??1 mg, Intramuscular, Once Glucose 40% Gel (15 Gm) (Glucose Gel) ??15 Gm, By Mouth, Every 20 minutes Glucose 40% Gel (15 Gm) (Glucose Gel) ??30 Gm, By Mouth, Every 20 minutes Melatonin 3 mg Tablet (Melatonin Tablet) ??3 mg, By Mouth, Daily at bedtime NaCl 0.9% Flush 3ml (NaCL 0.9% Flush) ??3 mL, IV Push, Every 8 hours Polyethylene Glycol 17 Gm Powder (MiraLax Powder) ??17 Gm 1 pack/packet, By Mouth, Daily Senna 8.6 mg / Docusate 50 mg tablet (Docusate/Senna Tablet) ??1 tablet, By Mouth, Daily Simethicone 80 mg Chewable Tablet (Simethicone Tablet) ??80 mg, Chew, 3 times a day Spiriva Respimat 2.5 mcg Inhaler (Spiriva Respimat Inhaler) ??2 puffs, Inhalation, Daily Trazodone 50 mg Tablet (traZODone 50 mg oral tablet) ??100 mg, By Mouth, Daily at bedtime ? Results Recent Labs BLOOD COUNT & DIFF WBC 10.0 k/mm3 ()?? 04/19/2022 01:53 RBC 4.06 m/mm3 (Low)?? 04/19/2022 01:53 Hgb 10.0 Gm/dL (Low)?? 04/19/2022 01:53 Hct 33.2 % (Low)?? 04/19/2022 01:53 MCV 81.8 femtoliters ()?? 04/19/2022 01:53 MCH 24.6 pg (Low)?? 04/19/2022 01:53 MCHC 30.1 g/dL (Low)?? 04/19/2022 01:53 Platelet Count 227 k/mm3 ()?? 04/19/2022 01:53 RDW-SD 49.3 femtoliters (High)?? 04/19/2022 01:53 MPV 10.0 femtoliters ()?? 04/19/2022 01:53 Nucleated RBC (Automated) 0.0 #/100 WBC'S ()?? 04/19/2022 01:53 Abs. NRBC 0.0 k/mm3 ()?? 04/19/2022 01:53 Hemoglobin (POC) POC Cartridge 11.2 Gm/dL (Low)?? 04/19/2022 00:12 Hematocrit (POC) POC Cartridge 33 % (Low)?? 04/19/2022 00:12 ?? BLOOD GAS pH (POC) POC Cartridge 7.35 (Low)?? 04/19/2022 00:12 pCO2 (POC) POC Cartridge 51.7 mm Hg (High)?? 04/19/2022 00:12 pO2 (POC) POC Cartridge 67 mm Hg (Low)?? 04/19/2022 00:12 Estimated Bicarbonate (POC) POC Cart 28.6 mmol/L ()?? 04/19/2022 00:12 % O2 Sat Arterial (POC) POC Cartridge 92 % (Low)?? 04/19/2022 00:12 Base Excess (POC) POC Cartridge 3 ()?? 04/19/2022 00:12 Specimen Type - Blood Gas ARTERIAL ()?? 04/19/2022 00:12 ?? CHEM GENERAL Sodium 137 mmol/L ()?? 04/19/2022 01:53 Potassium 4.7 mmol/L ()?? 04/19/2022 01:53 Chloride 103 mmol/L ()?? 04/19/2022 01:53 Bicarbonate Level 26 mmol/L ()?? 04/19/2022 01:53 Anion Gap 8 ()?? 04/19/2022 01:53 Sodium (POC) POC Cartridge 138 mmol/L ()?? 04/19/2022 00:12 Potassium (POC) POC Cartridge 4.7 mmol/L ()?? 04/19/2022 00:12 Glucose Level 240 mg/dL (High)?? 04/19/2022 01:53 Glucose (POC) POC Cartridge 229 (High)?? 04/19/2022 00:12 Glucose, POC 133 mg/dL (High)?? 04/19/2022 07:55 Hemoglobin A1C (Monitoring) 9.6 % (High)?? 04/18/2022 07:12 BUN 38 mg/dL (High)?? 04/19/2022 01:53 Creatinine-Blood 1.0 mg/dL ()?? 04/19/2022 01:53 Estimated GFR Creatinine 66 ML/MIN/1.73 M2 ()?? 04/19/2022 01:53 Calcium 8.1 mg/dL (Low)?? 04/19/2022 01:53 Ionized Calcium (POC) POC Cartridge 1.22 mmol/L ()?? 04/19/2022 00:12 Magnesium 2.0 mg/dL ()?? 04/19/2022 01:53 Protein, Total 6.9 Gm/dL ()?? 04/19/2022 01:53 Albumin 2.4 Gm/dL (Low)?? 04/19/2022 01:53 AG Ratio 0.5 ()?? 04/19/2022 01:53 Alkaline Phosphatase 173 units/L (High)?? 04/19/2022 01:53 AST (SGOT) 16 units/L ()?? 04/19/2022 01:53 ALT (SGPT) 8 units/L ()?? 04/19/2022 01:53 Bilirubin, Total 0.4 mg/dL ()?? 04/19/2022 01:53 C-Reactive Protein 6.0 mg/dL (High)?? 04/19/2022 01:53 Estimated Average Glucose 229 mg/dL ()?? 04/18/2022 07:12 ?? LIPID STUDIES Cholesterol 169 mg/dL ()?? 04/18/2022 07:12 Triglycerides 87 mg/dL ()?? 04/18/2022 07:12 HDL Cholesterol 46 mg/dL ()?? 04/18/2022 07:12 LDL Cholesterol 106 mg/dL ()?? 04/18/2022 07:12 Non HDL Cholesterol 123 mg/dL ()?? 04/18/2022 07:12 ? Abnormal Labs ?? BLOOD COUNT & DIFF ??Abs. NRBC ??0.0 k/mm3 () ??04/19/2022 01:53 ??Hct ??33.2 % (Low) ??04/19/2022 01:53 ??Hematocrit (POC) POC Cartridge ??33 % (Low) ??04/19/2022 00:12 ??Hemoglobin (POC) POC Cartridge ??11.2 Gm/dL (Low) ??04/19/2022 00:12 ??Hgb ??10.0 Gm/dL (Low) ??04/19/2022 01:53 ??MCH ??24.6 pg (Low) ??04/19/2022 01:53 ??MCHC ??30.1 g/dL (Low) ??04/19/2022 01:53 ??Nucleated RBC (Automated) ??0.0 #/100 WBC'S () ??04/19/2022 01:53 ??RBC ??4.06 m/mm3 (Low) ??04/19/2022 01:53 ??RDW-SD ??49.3 femtoliters (High) ??04/19/2022 01:53 ? BLOOD GAS ??% O2 Sat Arterial (POC) POC Cartridge ??92 % (Low) ??04/19/2022 00:12 ??Base Excess (POC) POC Cartridge ??3 () ??04/19/2022 00:12 ??Specimen Type - Blood Gas ??ARTERIAL () ??04/19/2022 00:12 ??pCO2 (POC) POC Cartridge ??51.7 mm Hg (High) ??04/19/2022 00:12 ??pH (POC) POC Cartridge ??7.35 (Low) ??04/19/2022 00:12 ??pO2 (POC) POC Cartridge ??67 mm Hg (Low) ??04/19/2022 00:12 ? CHEM GENERAL ??AG Ratio ??0.5 () ??04/19/2022 01:53 ??Albumin ??2.4 Gm/dL (Low) ??04/19/2022 01:53 ??Alkaline Phosphatase ??173 units/L (High) ??04/19/2022 01:53 ??BUN ??38 mg/dL (High) ??04/19/2022 01:53 ??C-Reactive Protein ??6.0 mg/dL (High) ??04/19/2022 01:53 ??Calcium ??8.1 mg/dL (Low) ??04/19/2022 01:53 ??Estimated GFR Creatinine ??66 ML/MIN/1.73 M2 () ??04/19/2022 01:53 ??Glucose Level ??240 mg/dL (High) ??04/19/2022 01:53 ??Glucose, POC ??133 mg/dL (High) ??04/19/2022 07:55 ??Glucose (POC) POC Cartridge ??229 (High) ??04/19/2022 00:12 ? Note: Critical results are displayed in red. ? CBC, CBC w/Diff?? CBC?? Differential?? WBC: 10 k/mm3 () Hemoglobin (POC) POC Cartridge:??11.2 Gm/dL??Low (:12) RBC:??4.06 m/mm3??Low () Hematocrit (POC) POC Cartridge:??33 %??Low (00:12) Hct:??33.2 %??Low () ?? RDW-SD:??49.3 femtoliters??High () ?? Nucleated RBC (Automated): 0 #/100 WBC'S () ?? Abs. NRBC: 0 k/mm3 () ? BMP, Mg, and Phos Anion Gap: 8 () Bicarbonate Level: 26 mmol/L () BUN:??38 mg/dL??High () Calcium:??8.1 mg/dL??Low () Chloride: 103 mmol/L () Creatinine-Blood: 1 mg/dL () Estimated GFR Creatinine: 66 ML/MIN/1.73 M2 () Glucose Level:??240 mg/dL??High () Ionized Calcium (POC) POC Cartridge: 1.22 mmol/L (00:12) Magnesium: 2 mg/dL (01:53) Potassium: 4.7 mmol/L () Sodium: 137 mmol/L () ?? Coagulation Profile?? No qualifying data available. ?? LFT Albumin:??2.4 Gm/dL??Low () Alkaline Phosphatase:??173 units/L??High () ALT (SGPT): 8 units/L () AST (SGOT): 16 units/L () Bilirubin, Total: 0.4 mg/dL () ?? Urinalysis?? No qualifying data available. ?? Microbiology ?? COVID-19, RSV, and Flu A/B, Rapid PCR?? Completed?? Source: Nasal Body Site: Nose Collected Dt/Tm: 04/16/2022 15:42 Last Updated Dt/Tm: 04/16/2022 17:34 ? Iveth CRUZ, Khalif Monsivais: PERFORM Event Display: Admission Note Authored Date: [id number] Patient was seen and examined multiple times on??April 19 findings confirmed. ??Case discussed with the resident and ICU fellow. ??Assessment and plan formulated as above. ? Acute physiology resulting in critical illness:??COVID-19 pneumonia ?? Diagnoses being actively treated: Hypoxemia COVID-pneumonia ?? Nature of critical care interventions and treatment: as outlined above in detailed resident/fellow note:' Betzaida Hernandez is a 51-year-old female with history of chronic respiratory failure, type 2 diabetes, COPD, Hypothyroidism, Narcotic dependance on Suboxone with recent hospitalization at [facility] for bilateral lower extremity swelling who presented with acute on chronic hypoxic respiratory failure secondary to COVID and severe ARDS currently on BiPAP with improving O2 saturations.?? We are managing her with various forms of oxygen therapy??we asked her to rotate from side to side??she is on steroids??there is no role for antiviral??therapy at this point??and she will be watched carefully??in theICU for signs of respiratory failure. ??20 minutes was spent donning and doffing PPE and speaking with??her boyfriend ?? Critical Care Time= 85 minutes (This represents the total time I personally spent evaluating, managing and providing care exclusiveof time spent for separately billable procedures along with family discussion.) EKG study Event Display: ECG 12-Lead Authored Date: Please click on pdf link to open report Event Display: ECG 12-Lead Authored Date: Ventricular Rate: 97 BPM Atrial Rate: 97 BPM P-R Interval: 138 ms QRS Duration: 90 ms Q-T Interval: 370 ms QTC Calculation(Bazett): 469 ms P [place]: 28 degrees R [place]: -17 degrees T [place]: 102 degrees Normal sinus rhythm Nonspecific ST and T wave abnormality When compared with ECG of 11-AUG-2016 12:10, Non-specific change in ST segment in Lateral leads Confirmed by MARCIAL BEAR ([id number]) on 04/18/2022 5:04:19 PM [place]: MARCIAL BEAR Heart Event Display: Echocardiogram - Complete Authored Date: Transthoracic Echocardiography Report (TTE) Patient Demographics Patient Name BETZAIDA SOLIS Date of Study 05/01/2022 Corporate Gender Female Facility Race Ethnicity or Date of 1970 Height: 65 inches Age 51 year(s) Weight: 348.32 pounds Accession Number [id number] BSA: 2.5 m2 Room Number [id number] BMI: 57.96 kg/m2 Referring Physician John Cedillo MD Interpreting Neelima De Dios MD Physician Sport Psychologist Elen Lee RCS Indications Heart failure. Clinical History Morbid obesity Chronic respiratory failure COPD COVID (04/2022) Diabetes Mellitus. Hypertension. Hyperlipidemia. Tobacco use. Study Data Type of Study TTE procedure:Echo Complete-(Doppler, Colorflow) with Contrast. Procedure Information:Definity was administered by RN . Study Date05/01/2022 Start Time: 11:12 AM Study [place] [facility] [place] Status: Echo lab Patient Status: Routine Technical Quality: Poor due to body habitus. Blood Pressure:162/77 mmHg EKG: Within normal limits HR: 54 bpm Contrast Medium: Definity. Amount - 2 ml 2D Measurements LV Diastolic Dimension: 5.3 cm LV Systolic Dimension: 2.9 cm LV Septum Diastolic: 1.2 cm LV PW Diastolic: 1.2 cm AO Root Dimension: 3.2 cm LA Dimension: 4.1 cm LA ESV (BP):48.4 ml LVOT Stroke Volume: 85.49 ml LA ESV Index: 19 ml/m2 Stroke Volume Index34.2 ml/m2 LVOT: 2.2 cm Cardiac Index:1.85 l/min/m2 Ascending Aorta:3.8 cm Doppler Measurements AV Peak Velocity: 153 cm/s MV Peak E-Wave: 77.1 cm/s AV Peak Gradient: 9.36 mmHg MV Peak A-Wave: 46.9 cm/s AV Mean Gradient: 5 mmHg MV E/A Ratio: 1.64 AV VTI:27.6 cm MV P1/2t: 44 msec LVOT Peak Velocity: 107 cm/s LVOT VTI22.5 cm MV Deceleration Time: 151 msec AV Area (Continuity):3.1 cm2 MV Area (PHT): 5 cm2 TR Velocity:225 cm/s TR Gradient:20.25 mmHg Estimated RAP:3 mmHg Estimated RVSP: 23.2 mmHg E' Septal Velocity: 5.33 cm/s E' Lateral Velocity: 3.92 cm/s E/Med E':14.66492 E/Lat E':19.62675 Cardiac Anatomy Left Ventricle/Interventricular Septum The left ventricle is normal in size. Ejection fraction is normal. No definite wall motion abnormalities seen but cannot be excluded. Diastolic function was indeterminant. Left Atrium/Interatrial Septum The left atrium is normal in size.An atrial septal defect cannot be excluded. Aortic Valve No significant regurgitation or stenosis. Mitral Valve No significant regurgitation or stenosis. Aorta The ascending aorta and aortic root are normal in size when indexed. Right Ventricle The right ventricle is dilated. Function is preserved. Right Atrium The right atrium is poorly visualized. Pulmonic Valve No significant regurgitation. Tricuspid Valve No significant regurgitation. Pumonary Artery The pulmonary artery systolic pressure estimation is within normal limits. Venous Structures IVC is upper limit of normal in size. Inspiratory collapse is normal. Pericardium/Extracardiac No definite pericardial effusion seen. Summary The left ventricle is normal in size. Ejection fraction is normal. No definite wall motion abnormalities seen but cannot be excluded. Diastolic function was indeterminant. The left atrium is normal in size. The right ventricle is dilated. Function is preserved. The right atrium is poorly visualized. The pulmonary artery systolic pressure estimation is within normal limits. IVC is upper limit of normal in size. Inspiratory collapse is normal. Signature Event Display: Echocardiogram - Complete Authored Date: Note Genesis Dubon RN: PERFORM Event Display: Discharge/Transfer Note Hospital Authored Date: Nursing Discharge Note Entered On: 05/04/2022 10:30 EST Performed On: 05/04/2022 10:30 EST by Ling LEDEZMA [facility] Nursing Discharge Note 2 Discharge Time : 05/04/2022 14:45 EST Genesis Dubon RN - 05/04/2022 15:08 EST Discharge Level of Care at Discharge : Short-term Acute Inpatient Discharge Nursing Homes/Rehab Facilities : [facility] Patient Left Unit Via : Ambulance Patient Accompanied Off Unit with : Ambulance/Chair Van Personnel Handover Given to Transport Personnel : Yes DC Instructions Provided & Signed by Pt : No Patient Understands D/C Instructions : Yes Patient Instructions Discharge Signed : No Did Pt have Specialty Bed or Wound Vac : No Genesis Dubon RN - 05/04/2022 10:30 Brenda Hilliard MD: MODIFY Safia Stark MD: PERFORM, MODIFY Safia Stark MD: MODIFY Event Display: Discharge/Transfer Note Hospital Authored Date: Patient: ??BETZAIDA SOLIS ? Age:??51 Years?Sex:??Female?:??1970?? Patient Information Discharge Location: Primary Care Physician: Brenna Figueroa MD Admit Date/Time: 04/16/22 17:49 Discharge Disposition Discharge Disposition: Shelter Facility/Rehab Discharge Diagnosis ARDS (adult respiratory distress syndrome) (J80) COPD (chronic obstructive pulmonary disease) (J44.9) COVID-19 virus detected (U07.1) Chronic respiratory failure (J96.10) Hypoxia (R09.02) ?? _ Discharge Medications Albuterol (ProAir HFA 90 mcg/inh inhalation aerosol with adapter)?2?puff(s)?Inhalation?Every 4 hours?as needed? NEEDED FOR WHEEZING Amlodipine (AmLODipine Tablet)?10?Milligram?By Mouth?Daily Aspirin (Aspirin Low Dose 81 mg oral delayed release tablet)?1?tab(s)?By Mouth?Daily?no CRUSH OR CHEW Atorvastatin (atorvastatin 80 mg oral tablet)?1?tab(s)?By Mouth?Daily Buprenorphine-Naloxone (Suboxone 8 mg-2 mg sublingual film)?1?Film?Sublingual?Daily?dissolve under the tongue Clonazepam (clonazePAM 0.5 mg oral tablet)?1?tab(s)?0.5?Milligram?By Mouth?Daily?as needed?Anxiety Dexamethasone (dexamethasone 0.5 mg oral tablet)?1.5?tab(s)?0.75?Milligram?By Mouth?Daily Durable Medical Equipment (Bedpan)?See Instructions?DX: Morbid Obesity, Chronic low back pain,chronic knee pain Durable Medical Equipment (Bedside Commode)?See Instructions?DX: Morbid Obesity, Chronic low back pain, chronic knee painLength of need: lifetimeHT: 165cm ??WT: 164.1kg Durable Medical Equipment (Shower Chair)?See Instructions?DX: Morbid Obesity,Chronic ??Knee pain, Chronic low back painLength of need: lifetimeHT: 165cm ??WT: 164.1kg Durable Medical Equipment (Freestyle Lancets)?See Instructions?Use as [...] GAIT (R26.81)JANE: LIFETIME (99) Durable Medical Equipment (Pen [place], 31 G x 8 mm BD Ultra Fine III)?See Instructions?Use toinject insulin up to 5x a day. E11.9 Durable Medical Equipment (Freestyle Lite Monitor)?See Instructions?Pt to check blood sugar 4xdaily as directed for dx of E11.65 Durable Medical Equipment (padded toilet seat)?See Instructions?dx: buttock sores Durable Medical Equipment (Freestyle Lite Test Strips)?See Instructions?Check blood sugar 4 times daily. E11.65 Fluoxetine (PROzac 20 mg oral capsule)?60?Milligram?3?capsule?By Mouth?Daily Gabapentin (gabapentin 600 mg oral tablet)?1?tab(s)?600?Milligram?By Mouth?3 timesa day?for 30?Days HydrOXYzine (hydrOXYzine hydrochloride 10 mg oral tablet)?1?tab(s)?10?Milligram?By Mouth?3 times a day?as needed?Anxiety Ibuprofen (ibuprofen 800 mg oral tablet)?1?tablet?By Mouth?3 times a day?as needed? NEEDED FOR PAIN WITH FOOD OR MILK Insulin Glargine (Lantus Inj)?0.28?Milliliter?28?unit(s)?Subcutaneous Injection?Daily in AM?28 units in AM om 12/122 units in AM on 05/05- 520 units in AM on 05/09 untilchanged by PCP Insulin Glargine (Lantus Inj)?0.36?Milliliter?36?unit(s)?Subcutaneous Injection?Daily at bedtime?36 units in PM om 12/128 units in PM on 05/05- 525 units in PM on 05/09 - until changed by PCP Insulin Lispro (insulin lispro 100 u/ml subcutaneous injection)?18-43 units?Subcutaneous Injection?3 times a day before meals?DO THIS SCALE ON 05/04<< Sliding Scale Comments >>100 - 149 ?? 18 units Call if less than [id number] - 199 ?? 23 units 200 - 249 ?? 28 units 250 - 299 ?? 33 units 300 - 349 ?? 38 units 350 - 399 ?? 43 units Call if greater than 400<< Sliding Scale... Insulin Lispro (insulin lispro 100 units/mL injectable solution)?14 - 34 units?Subcutaneous Infusion?3 times a day before meals?USE THIS SCALE 05/05- 05/08<< Sliding Scale Comments >>100 - 149 ?? 14 units Call if less than [id number] - 199 ?? 18 units 200 - 249 ?? 22 units 250 - 299 ?? 26 units 300 - 349 ?? 30 units 350 - 399 ?? 34 units Call if greater than 400<< Sliding Sc... Insulin Lispro (insulin lispro 100 u/ml subcutaneous injection)?12 - 27 units?Subcutaneous Infusion?3 times a day before meals?USE THIS SCALE 05/09 - ONWARDS UNTIL PHYSICIAN CHANGES IT<< Sliding Scale Comments >>100 - 149 ?? 12 units Call if less than 33190 - 199 ?? 15 units 200- 249 ?? 18 units 250 - 299 ?? 21 units 300 - 349 ?? 24 units 350 - 399 ?? 27 units Call if... Levothyroxine (levothyroxine 75 mcg (0.075 mg) oral tablet)?1?tab(s)?75?Microgram?By Mouth?Daily Loratadine (loratadine 10 mg oral tablet)?1?tablet?By Mouth?Daily Miscellaneous Rx (Hydrocortisone 2.5% cream as 1:1 mix with cerave cream)?See Instructions?Apply three times daily to affected skin. Miscellaneous Rx (FreeStyle [place] Lite kit)?See Instructions?TEST BLOOD SUGAR FOUR TIMES DAILY Miscellaneous Rx (Ulticare Pen Needle 31 gauge x 5/16 )?See Instructions?USE DIRECTED FIVE TIMES DAILY Ocular Lubricant (Artificial Tears 1.4%)?Eyes, Both?Every 4 hours?as needed?Other?Dryness. Omeprazole (omeprazole 20 mg oral enteric coated capsule)?1?capsule?20?Milligram?By Mouth?2 times a day?for 90?Days Tiotropium?Inhalation?Daily?Give with Albuterol inhaler Topiramate (topiramate 50 mg oral tablet)?TAKE 1 TABLET BY MOUTH TWICE DAILY Trazodone (traZODone 100 mg oral tablet)?TAKE 1 TO 3 TABLETS AT BEDTIME NEEDED ? Medications Started Amlodipine 10mg Spiriva dexamethasone for 4 more days Medications Discontinued hydrochlorothiazide Doses Changed clonazepam hydroxyzine Lantus Lispro PCP Follow-Up/Heads-Up Labile hyperglycemia likely 2/2 steroids: ? - Regimen for 2mg: continue lantus Adjust HISS 18:100+5:50 ? - Regimen for 0.75mg: Lantus , HISS: 14/100 +4/50 (orders will need to be changed effective 05/05/22) ? - Regimen for no steroid: Lantus , HISS: 12/100 + 3/50(orders will need to be changed effective 05/09/22 ? - needs follow up with endocrinology/BIDS in the next 2-3 days. patient known to [facility]. They should call to make an appointment with her but if they do not, please contact [phone]?? - contact [phone] should her blood sugars to be less than 70, greater than 400 or greater than 250 for a few days. - Cont. taper steroids: 4 days of decadron 0.75mg (05/05 - 05/08) - consider starting LISA-I or ARB??outpatient for DM nephropathy Hospital Course Betzaida Hernandez is a 51 -year-old female with history of chronic respiratory failure, type 2 diabetes, COPD, Hypothyroidism, Narcotic dependance on Suboxone with recent hospitalization at [facility] for bilateral lower extremity swelling and Covid on 04/06 (s/p 10 day course of dexamethasone) who presentedto [facility] on 04/16 with acute hypoxic respiratory failure 2/2 Covid PNA and ARDS ultimately requiring ICU admission and BIPAP therapy, now de-escalated to??room air??and s/p 20 day course of dexamethasone treatment and 14 days course of baricitinib. Pulm rehab assessment complete. On day of discharge patient was breathing comfortably on??room air and ready to continue her care at rehab. ? #Uncontrolled type 2 diabetes ??worsening hyperglycemia secondary to steroid therapy, currently tapering ?? Plan: ??- Regimen for 2mg: continue lantus Adjust HISS 18:100+5:50 ??- Regimen for 0.75mg: Lantus , HISS: 14/100 +4/50 (orders will need to be changed effective 05/05/22) ??- Regimen for no steroid: Lantus , HISS: 12/100 + 3/50(orders will need to be changed effective 05/09/22 ??- follow up with endocrinology in the next 2-3 days ??- contact [phone] should her blood sugars to be less than 70, greater than 400 or greater than 250 for a few days. ? Acute on chronic hypoxic respiratory failure with hypercarbia ??ARDS secondary to COVID-pneumonia ??COPD, not on oxygen at home ??COVID-19 PNA ??CXR: Diffusely increased interstitial and airspace density in both lungs. The differential includes pulmonary edema as well as multifocal pneumonia. ??CT Chest: Extensive diffuse groundglass and consolidative airspace opacities appear increasing in the interval compared to previous portable chest x-ray. No effusions or pneumothorax is seen. There is mediastinal adenopathy measuring up to 1.7 cm ??in the subcarinal region. Heart appears enlarged. ??brief MICU admission, not intubated ??patient initially required BIPAP, now on NC ??completed 20 days of dexamethasone 6 mg daily (04/07-04/26) and 14 days of baricitinib and off isolation ?? Plan ?- goal SpO2 88-92% ?- Cont. Spiriva and albuterol daily ?- Cont. taper steroids: 4 days of decadron 0.75mg (05/05 - 05/08) ? Hypertension Ectatic ascending thoracic aorta measuring up to 4.2 cm ECHO 05/01 - normal LVEF plan: - follow up OP with PCP - amlodipine dose increased to 10mg ? RADHIKA on CKD, resolved Hyperkalemia, resolved Pseudohyponatremia, resolved?Cre baseline 1.4 ??CKD likely 2/2 diabetic nephropathy ??Hyponatremia 2/2 hyperglycemia ??- patient with multiple medications that should be lowering serum K. hyperkalemia likely 2/2 RADHIKA vs osmotic shifts due to hyperglycemia. labs are not indicative of acidosis, no indication of tissue catabolism, red cell lysis, or hypo/hyperthermia plan: ??- follow up OP with PCP ?? Depression ??Anxiety ??Masspat with gaps in clonazepam between November - Mar however, patient was living in [facility] ER at least from Jan - April. I called the facility and they reported that her meds while living there included clonazepam 0.5mg QD. Will continue Clonazepam for anxiety ??Plan: ?-??Continue home meds ?- Continue Clonazepam 0.5mg QD PRN for anxiety ?? Chronic Stable Issues: #HLD: Continue home meds #Substance use disorder: contnue suboxone # Hypothyroidism, continue Levothyroxine 75 mcg daily # GERD, on pantoprazole 20 mg daily ? Objective Assessment and Plan ? Vital Signs?? Temperature: 97.5 DegF (05/04/22 07:00:00) Temperature Route: Oral (05/04/22 07:00:00) Pulse Rate: 56 bpm (05/04/22 07:00:00) Respiratory Rate: 18 br/min (05/04/22 07:00:00) Systolic Blood Pressure: 135 mm Hg (05/04/22 07:00:00) Diastolic Blood Pressure: 57 mm Hg (05/04/22 07:00:00) Blood pressure sites: Arm, right (05/04/22 07:00:00) Mean Arterial Pressure: 98 mm Hg (05/03/22 19:52:00) Pulse Pressure: 78 mm Hg (05/04/22 07:00:00) Oxygen Saturation: 95 % (05/04/22 07:00:00) Liters per Minute: 1 L/min (05/03/22 19:52:00) Mode of Delivery (Oxygen): Room air (05/04/22 07:00:00) Early Warning Score: 5 (05/04/22 08:16:07) ? . Physical Exam Constitutional: Alert, in no distress, Mental Status: Oriented x3 Head: Normocephalic. Eyes: Extraocular muscles intact. Ear, Nose and Throat: Oropharynx clear, mucous membranes moist. Ears and nose without masses, lesions or deformities. Respiratory: diminished breath sounds bilaterally, mild rhonchi at bases, improving exam Cardiovascular: S1 S2 regular. no murmurs Gastrointestinal: Abdomen soft, non-tender, distended. Normal bowel sounds. Neurologic:No focal neurological deficits. Moves all extremities spontaneously.? Musculoskeletal: bilateral lower extremity nonpitting edema, CVI Psychiatric: appropriate affect and mood [facility] Pulmonology Pending Results Blood Gas Arterial ordered on 04/18/2022 Hold Lavender Tube (BB) ordered on 04/16/2022 Patient Education Titles Continuous Positive Air Pressure (CPAP)?? Understanding Acute Respiratory Distress Syndrome (ARDS)?? Chronic Lung Disease: Preventing Lung Infections?? Chronic Lung Disease: Managing Sleep Problems?? Coronavirus Disease 2019 (COVID-19): Overview?? Follow-Up Appointments Added Follow Up ?Time Frame ?Comments Henry CRUZ, Brenna Cadet?Within one week Patient Instructions You came to the ED with worsening difficulty breathing in the setting of COVID- 19 infection and were found to be with worsening covid-related pneumonia and a condition called ARDS (acute respiratory distress syndrome). This is a critical??condition where fluid builds up in the air sacs of the lungs and makes delivering??oxygen to the rest of??your??blood and then??the rest of your body very difficult. You needed extra support with your breathing with a BIPAP mask but were able to make it down to room air succesfully. We continued your steroid medications for a full 20 days and now we are slowly decreasing it and taking you off of it. We also gave??you a medication called ??baricitinib for covid-19 treatment which you responded to well as well. Your sugars have needed extra work this admission, likely because of your steroids. You are now breathing on room air and??ready to continue your care atrehab ?? please continue taking steroids for 4 more days: dexamethasone 0.75mg 1 pill daily 05/05-05/08 please follow up with your PCP in the next 1-2 weeks Please follow up with your diabetes doctor please continue wearing your CPAP and taking your inhaler medication for meterman control of your chronic lung disease ?? This is how you will be taking your insulin moving forward: ??- Regimen for 2mg (today): continue lantus Adjust HISS 18:100+5:50 ??- Regimen for 0.75mg (05/05-05/28): Lantus /, HISS: 14/100 +4/50 (orders will need to be changed effective 05/05/22) ??- Regimen for no steroids (05/09 - onward): Lantus 20/, HISS: 12/100 + 3/50(orders will need to be changed effective 05/09/22 ?- contact [phone] should her blood sugars to be less than 70, greater than 400 or greater than 250 for a few days. ?? Education Given: Continuous Positive Air Pressure (CPAP)?? Understanding Acute Respiratory Distress Syndrome (ARDS)?? Chronic Lung Disease: Preventing Lung Infections?? Chronic Lung Disease: Managing Sleep Problems?? Coronavirus Disease 2019 (COVID-19): Overview? Please return to the ED for any return or worsening of your symptoms including but not limtied to worsening of shortness of breath, difficulty breathing, fevers, seizures, frequent low blood sugars, syncope or near syncope, confusion, poorly controlled diabetes that cannot be controlled outside the hospital??etc. Please see the Education provided for further guidance ? Patient Follow-up: Added Follow Up ?Time Frame ?Comments Jose JAVIER, Laina Berumen?3-5 day: call to discuss follow up visit?please follow up with [facility] diabetes.?? They should call you to make an appointment but if you do not hear from their office in the next 1-2 days, please call their office. Henry CRUZ, Brenna Cadet?Within one week Home Health Face to Face ^HomeHealthFTF Results Discharge Labs BLOOD COUNT & DIFF WBC 6.9 k/mm3 ()?? 05/04/2022 02:20 RBC 3.62 m/mm3 (Low)?? 05/04/2022 02:20 Hgb 8.9 Gm/dL (Low)?? 05/04/2022 02:20 Hct 29.9 % (Low)?? 05/04/2022 02:20 MCV 82.6 femtoliters ()?? 05/04/2022 02:20 MCH 24.6 pg (Low)?? 05/04/2022 02:20 MCHC 29.8 g/dL (Low)?? 05/04/2022 02:20 Platelet Count 264 k/mm3 ()?? 05/04/2022 02:20 RDW-SD 49.9 femtoliters (High)?? 05/04/2022 02:20 MPV 10.0 femtoliters ()?? 05/04/2022 02:20 Nucleated RBC (Automated) 0.0 #/100 WBC'S ()?? 05/04/2022 02:20 Abs. NRBC 0.0 k/mm3 ()?? 05/04/2022 02:20 Abs. Neut 5.1 k/mm3 ()?? 04/23/2022 04:30 Abs. Lymph 1.8 k/mm3 ()?? 04/23/2022 04:30 Abs. Harlan 0.3 k/mm3 (Low)?? 04/23/2022 04:30 Abs. Eo 0.0 k/mm3 ()?? 04/23/2022 04:30 Abs. Baso 0.0 k/mm3 ()?? 04/23/2022 04:30 Neut % 70.2 % ()?? 04/23/2022 04:30 Lymph % 24.7 % ()?? 04/23/2022 04:30 Harlan % 4.3 % (Low)?? 04/23/2022 04:30 Eos % 0.3 % ()?? 04/23/2022 04:30 Baso % 0.0 % ()?? 04/23/2022 04:30 Hemoglobin (POC) POC Cartridge 11.2 Gm/dL (Low)?? 04/19/2022 00:12 Hematocrit (POC) POC Cartridge 33 % (Low)?? 04/19/2022 00:12 Imm Gran 0.5 % ()?? 04/23/2022 04:30 Abs. Imm Gran 0.0 k/mm3 ()?? 04/23/2022 04:30 ?? BLOOD GAS pH (POC) POC Cartridge 7.35 (Low)?? 04/19/2022 00:12 pCO2 (POC) POC Cartridge 51.7 mm Hg (High)?? 04/19/2022 00:12 pO2 (POC) POC Cartridge 67 mm Hg (Low)?? 04/19/2022 00:12 Estimated Bicarbonate (POC) POC Cart 28.6 mmol/L ()?? 04/19/2022 00:12 % O2 Sat Arterial (POC) POC Cartridge 92 % (Low)?? 04/19/2022 00:12 pH Venous (POC) POC Cartridge 7.39 ()?? 04/16/2022 16:09 pCO2 Venous (POC) POC Cartridge 47.6 mm Hg ()?? 04/16/2022 16:09 pO2 Venous (POC) POC Cartridge 31 mm Hg (Low)?? 04/16/2022 16:09 Est Bicarbonate (POC) POC Cartridge 28.7 mmol/L ()?? 04/16/2022 16:09 % O2 Sat Venous (POC) POC Cartridge 57 ()?? 04/16/2022 16:09 Base Excess (POC) POC Cartridge 3 ()?? 04/19/2022 00:12 pH 7.31 (Low)?? 04/17/2022 03:55 pCO2 52 mm Hg (High)?? 04/17/2022 03:55 pO2 72 mm Hg (Low)?? 04/17/2022 03:55 Bicarbonate, Estimated 26 mmol/L ()?? 04/17/2022 03:55 Specimen Type - Blood Gas ARTERIAL ()?? 04/19/2022 00:12 ?? CARDIAC Troponin T Quant <0.01 ng/mL ()?? 04/16/2022 15:50 Nt-Probnp 487 pg/mL (High)?? 04/16/2022 15:50 ?? CHEM GENERAL Sodium 131 mmol/L (Low)?? 05/04/2022 02:20 Potassium HEMOLYZED mmol/L ()?? 05/04/2022 02:20 Chloride 99 mmol/L ()?? 05/04/2022 02:20 Bicarbonate Level 26 mmol/L ()?? 05/04/2022 02:20 Anion Gap 6 ()?? 05/04/2022 02:20 Sodium (POC) POC Cartridge 138 mmol/L ()?? 04/19/2022 00:12 Potassium (POC) POC Cartridge 4.7 mmol/L ()?? 04/19/2022 00:12 Glucose Level 283 mg/dL (High)?? 05/04/2022 02:20 Glucose (POC) POC Cartridge 229 (High)?? 04/19/2022 00:12 Glucose, POC 135 mg/dL (High)?? 05/04/2022 07:39 Hemoglobin A1C (Monitoring) 9.6 % (High)?? 04/18/2022 07:12 BUN 35 mg/dL (High)?? 05/04/2022 02:20 Creatinine-Blood 1.2 mg/dL (High)?? 05/04/2022 02:20 Estimated GFR Creatinine 57 ML/MIN/1.73 M2 ()?? 05/04/2022 02:20 Calcium 8.2 mg/dL (Low)?? 05/04/2022 02:20 Calcium, Ionized pH Corrected 1.22 mmol/L ()?? 04/30/2022 01:08 Ionized Calcium (POC) POC Cartridge 1.22 mmol/L ()?? 04/19/2022 00:12 Phosphorus 2.9 mg/dL ()?? 04/26/2022 00:20 Magnesium 1.6 mg/dL ()?? 04/30/2022 01:08 Protein, Total 7.9 Gm/dL ()?? 04/21/2022 11:00 Albumin 2.7 Gm/dL (Low)?? 04/21/2022 11:00 AG Ratio 0.5 ()?? 04/21/2022 11:00 Alkaline Phosphatase 193 units/L (High)?? 04/21/2022 11:00 AST (SGOT) 17 units/L ()?? 04/21/2022 11:00 ALT (SGPT) 10 units/L ()?? 04/21/2022 11:00 Bilirubin, Total 0.5 mg/dL ()?? 04/21/2022 11:00 Lactate 1.4 mmol/L ()?? 04/16/2022 22:14 C-Reactive Protein 5.3 mg/dL (High)?? 04/22/2022 08:40 Estimated Average Glucose 229 mg/dL ()?? 04/18/2022 07:12 ? COAG D-Dimer 1.04 mg/L FEU (High)?? 04/16/2022 22:28 LMWH AntiXa 0.28 IU/mL ()?? 04/20/2022 14:20 ?? ENDOCRINE/TUMOR MARKER TSH 0.38 uIU/mL (Low)?? 04/16/2022 15:50 Free T4 1.90 ng/dL (High)?? 04/16/2022 15:50 ?? HEME OTHER Hold Lavender Top SPECIMEN DISCARDED AFTER 24 HOURS. ()?? 04/26/2022 00:20 ? LIPID STUDIES Cholesterol 169 mg/dL ()?? 04/18/2022 07:12 Triglycerides 87 mg/dL ()?? 04/18/2022 07:12 HDL Cholesterol 46 mg/dL ()?? 04/18/2022 07:12 LDL Cholesterol 106 mg/dL ()?? 04/18/2022 07:12 Non HDL Cholesterol 123 mg/dL ()?? 04/18/2022 07:12 ? MISC. CHEMISTRY Procalcitonin 0.07 ng/mL ()?? 04/19/2022 01:53 ? VIROLOGY Influenza A PCR NEGATIVE ()?? 04/16/2022 16:10 Influenza B PCR NEGATIVE ()?? 04/16/2022 16:10 RSV PCR NEGATIVE ()?? 04/16/2022 16:10 COVID-19 PCR Specimen Source NASAL ()?? 04/16/2022 16:10 COVID-19 PCR Result POSITIVE (Abnormal)?? 04/16/2022 16:10 ? 30 minutes spent on discharge ?? Safia Stark MD, MPH Medicine Pediatrics Resident PGY-2. P. [id number] Patient??and plan discussed with attending physician, Dr. Brenda Chinchilla MD, Brenda: PERFORM Event Display: Discharge/Transfer Note Hospital Authored Date: Attending Attestation:??I have seen and examined this patient on date of discharge. ??I have discussed the case and its management with the resident and agree with the findings and plan as documented in the resident???s note. Ling LEDEZMA, [facility]: PERFORM Event Display: Patient Education/Instruction Authored Date: Inpatient Adult Discharge Instructions [address] [address] Name: BETZAIDA SOLIS : 1970 Visit: 04/16/2022 17:49:00 Current Date: 05/04/2022 11:14 Account: [id number] Inpatient Adult Discharge Instructions We would like [...] and their families. Surveys are administered by [employer] ?? If further treatment with your primary care physician or another doctor is recommended, it is important for you to keep the appointment. Call your primary care physician or return to the Emergency Department immediately if your condition worsens, fails to improve, or new symptoms develop. If you need to find a doctor, you can call [facility] for a referral at [phone] or toll free at [phone] or log in to [email or web address] ?? You can view and manage your care through the patient portal or by using a health care radha of your choosing. Look[employer] is a website that allows you to securely view your medical information including your hospital discharge summary, office visit summaries, medications and follow-up visits. You can also request appointments, renew medications, and request access to your medical information using a health care radha of your choosing, or just ask a question. You can enroll at [email or web address] or register during your next office visit. You have been discharged from [facility], Patient Care Unit: S3. If you have any questions regarding these instructions after you leave, please call us and we will be happy to assist you. [facility] Your Care Team Attending Physician Amor CRUZ, Brenda Consulting Providers Lacho CRUZ, Vanessa Loya MD, Ninfa Discharging Providers Mi CRUZ, Safia Reason for Admission Assistance with glycemic managment Your Diagnosis Chronic respiratory failure Hypoxia COPD (chronic obstructive pulmonary disease) COPD (chronic obstructive pulmonary disease) COVID-19 virus detected ARDS (adult respiratory distress syndrome) Tests Performed Below is a partial list of the tests performed during your hospitalization. You may have had other tests and procedures not included in this list. Please discuss all test results with your provider. ABG POC CARTRIDGE Alk Phos AST BASE EXCESS POC CARTRIDGE Basic Metabolic Panel BUN C-REACTIVE PROTEIN Calcium Ionized CALCIUM IONIZED POC CART CBC CBC w/ Differential Comprehensive Metabolic Panel COVID-19, RSV, and Flu A/B, Rapid PCR Creatinine CRP D Dimer Electrolytes FREE T4 Glucose Level GLUCOSE POC GLUCOSE POC CARTRIDGE HEMATOCRIT POC CARTRIDGE Hemoglobin A1C w/ Estimated Glucose HEMOGLOBIN POC CARTRIDGE HOLD LAVENDER TUBE Ionized Calcium Lactate Level Lipid Panel LMWH Anti Xa Assay Lytes Magnesium Level Mg Level Phosphorus Level POTASSIUM POC CARTRIDGE ProBNP PROCALCITONIN, SERUM SODIUM POC CARTRIDGE Troponin T Quant TSH with T4 Reflex (Adults Only) VBG POC CARTRIDGE Chest CT W/O Contrast Portable Chest XR Chest Portable Primary Care Provider Henry CRUZ, Brenna Cadet Advance Directive Health Care Proxy on File Yes - Health Care Proxy No qualifying data available. Discharge Vitals Temperature: 97.4 DegF Height: 165 cm Pulse Rate: 70 bpm Weight: 157.6 kg Respiratory Rate: 18 br/min Body Mass Index:??59.06 kg/m2??Critical Systolic Blood Pressure:??153 mm Hg??High Body surface area: 2.71 Diastolic Blood Pressure: 73 mm Hg ?? Oxygen Saturation: 95 % ?? Studies Pending All tests and labs ordered during this hospital stay have been completed unless listed below. Pleasediscuss all pending results with your provider listed above in these instructions. ?? Blood Gas Arterial (ABG) Hold Lavender Tube (BB) What to do next Instructions From Your Doctor You came to the ED with worsening difficulty breathing in the setting of COVID- 19 infection and were found to be with worsening covid-related pneumonia and a condition called ARDS (acute respiratory distress syndrome). This is a critical??condition where fluid builds up in the air sacs of the lungs and makes delivering??oxygen to the rest of??your??blood and then??the rest of your body very difficult. You needed extra support with your breathing with a BIPAP mask but were able to make it down to room air succesfully. We continued your steroid medications for a full 20 days and now we are slowly decreasing it and taking you off of it. We also gave??you a medication called ??baricitinib for covid-19 treatment which you responded to well as well. Your sugars have needed extra work this admission, likely because of your steroids. You are now breathing on room air and??ready to continue your care atrehab ?? please continue taking steroids for 4 more days: dexamethasone 0.75mg 1 pill daily 05/05-05/08 please follow up with your PCP in the next 1-2 weeks Please follow up with your diabetes doctor please continue wearing your CPAP and taking your inhaler medication for [facility] control of your chronic lung disease ?? This is how you will be taking your insulin moving forward: ??- Regimen for 2mg (today): continue lantus Adjust HISS 18:100+5:50 ??- Regimen for 0.75mg (05/05-05/28): Lantus , HISS: 14/100 +4/50 (orders will need to be changed effective 05/05/22) ??- Regimen for no steroids (05/09 - onward): Lantus /, HISS: 12/100 + 3/50(orders will need to be changed effective 05/09/22 ?- contact [phone] should her blood sugars to be less than 70, greater than 400 or greater than 250 for a few days. ?? Education Given: Continuous Positive Air Pressure (CPAP)?? Understanding Acute Respiratory Distress Syndrome (ARDS)?? Chronic Lung Disease: Preventing Lung Infections?? Chronic Lung Disease: Managing Sleep Problems?? Coronavirus Disease 2019 (COVID-19): Overview? Please return to the ED for any return or worsening of your symptoms including but not limtied to worsening of shortness of breath, difficulty breathing, fevers, seizures, frequent low blood sugars, syncope or near syncope, confusion, poorly controlled diabetes that cannot be controlled outside the hospital??etc. Please see the Education provided for further guidance ? Patient Follow-up: Added Follow Up ?Time Frame ?Comments Jose JAVIER, Laina Berumen?3-5 day: call to discuss follow up visit?please follow up with [facility].?? They should call you to make an appointment but if you do not hear from their office in the next 1-2 days, please call their office. Brenna Figueroa MD?Within one week Discharge Orders You Need to Schedule the Following Appointments Follow Up with??Laina Garcia NP When??Within 3-5 day: call to discuss follow up visit Why: please follow up with [facility] diabetes.?? They should call you to make an appointment but if you do not hear from their office in the next 1-2 days, please call their office. Where: ?? Follow Up with??Brenna Figueroa MD When??Within Within one week Where: [address] [place] [address]- Discharge Medications BETZAIDA SOLIS :1970 Visit Date:04/16/2022 Medications: Please continue your medications until treatment is completed or stopped by your provider. Medications not listed below should be discontinued. Discuss any questions related to medications with your provider. What How Much When Why Instructions Next Dose New Dexamethasone (dexamethasone 0.5 mg oral tablet) 1.5 tab(s) Oral Daily New Ocular Lubricant (Artificial Tears 1.4%) Both eyes Every 4 hours as needed for Other Dryness. ?? New Tiotropium Inhalation Daily Give with Albuterol inhaler ?? Changed Amlodipine (AmLODipine Tablet) 10 Milligram Oral Daily Changed Clonazepam (clonazePAM 0.5 mg oral tablet) 1 tab(s) Oral Daily as needed for Anxiety Changed HydrOXYzine (hydrOXYzine hydrochloride 10 mg oral tablet) 1 tab(s) Oral 3 times a day as needed for Anxiety Changed Insulin Glargine (Lantus Inj) 36 unit(s) Subcutaneous Injection Daily at Bedtime 36 units in PM om 05/04 28 units in PM on 05/05- 05/08 25 units in PM on 05/09 - onwards until changed by PCP ?? Changed Insulin Glargine (Lantus Inj) 28 unit(s) Subcutaneous Injection Daily in the morning 28 units in AM om 05/04 22 units in AM on 05/05- 05/08 20 units in AM on 05/09 - onwards until changed by PCP ?? Changed Insulin Lispro (insulin lispro 100 u/ ml subcutaneous injection) 12 - 27 units Subcutaneous Infusion 3 times a day before meals USE THIS SCALE 05/09 - ONWARDS UNTIL PHYSICIAN CHANGES IT << Sliding Scale Comments >> 100 - 149 ?? 12 units Call if less than 70 150 - 199 ?? 15 units 200 - 249 ?? 18 units 250 - 299 ?? 21 units 300 - 349 ?? 24 units 350 - 399 ?? 27 units Call if greater than 400 << Sliding Scale Comments >> ?? Pickup at [facility] Changed Insulin Lispro (insulin lispro 100 u/ ml subcutaneous injection) 18-43 units Subcutaneous Injection 3 times a day before meals DO THIS SCALE ON 05/04 << Sliding Scale Comments >> 100 - 149 ?? 18 units Call if less than 70 150 - 199 ?? 23 units 200 - 249 ?? 28 units 250 - 299 ?? 33 units 300 - 349 ?? 38 units 350 - 399 ?? 43 units Call if greater than 400 << Sliding Scale Comments >> ?? Changed Insulin Lispro (insulin lispro 100 units/ mL injectable solution) 14 - 34 units Subcutaneous Infusion 3 times a day before meals USE THIS SCALE 05/05- 05/08 << Sliding Scale Comments >> 100 - 149 ?? 14 units Call if less than 70 150 - 199 ?? 18 units 200 - 249 ?? 22 units 250 - 299 ?? 26 units 300 - 349 ?? 30 units 350 - 399 ?? 34 units Call if greater than 400 << Sliding Scale Comments >> ?? Pickup at [facility] Changed Levothyroxine (levothyroxine 75 mcg (0.075 mg) oral tablet) 1 tab(s) Oral Daily Unchanged Albuterol (ProAir HFA 90 mcg/ inh inhalation aerosol with adapter) 2 puff(s) Inhalation Every 4 hours as needed for NEEDED FOR WHEEZING Unchanged Aspirin (Aspirin Low Dose 81 mg oral delayed release tablet) 1 tab(s) Oral Daily no CRUSH OR CHEW ?? Unchanged Atorvastatin (atorvastatin 80 mg oral tablet) 1 tab(s) Oral Daily Unchanged Buprenorphine-Naloxone (Suboxone 8 mg-2 mg sublingual film) 1 Film Sublingual Daily dissolve under the tongue ?? Unchanged Durable Medical Equipment (Bedpan) See instructions DX: Morbid Obesity, Chronic low back pain, chronic knee pain ?? Unchanged Durable Medical Equipment (Bedside Commode) See instructions DX: Morbid Obesity, Chronic low back pain, chronic knee pain Length of need: lifetime HT: 165cm ??WT: 164.1kg ?? Unchanged Durable Medical Equipment (Bedside Commode) [...] buttock sores ?? Unchanged Durable Medical Equipment (Pen [place], 31 G x 8 mm BD Ultra Fine III) See instructions Use to inject insulin up to 5x a day. E11.9 ?? Unchanged Durable Medical Equipment (Shower Chair) See instructions DX: Morbid Obesity,Chronic ??Knee pain, Chronic low back pain Length of need: lifetime HT: 165cm ??WT: 164.1kg ?? Unchanged Durable Medical Equipment (Shower Chair) See instructions Abnormality of gait and mobility Unsteady gait Heavy duty shower chair Dx: Unsteady gait and abnormality of mobility Height 158cm Weight 161Kg ?? Unchanged Fluoxetine (PROzac 20 mg oral capsule) 3 capsule Oral Daily Unchanged Gabapentin (gabapentin 600 mg oral tablet) 1 tab(s) Oral 3 times a day Duration: 30 Days Unchanged Ibuprofen (ibuprofen 800 mg oral tablet) 1 tab(s) Oral 3 times a day as needed for NEEDED FOR PAIN WITH FOOD OR MILK Unchanged Loratadine (loratadine 10 mg oral tablet) 1 tab(s) Oral Daily Unchanged Miscellaneous Rx (FreeStyle [place] Lite kit) See instructions TEST BLOOD SUGAR FOUR TIMES DAILY ?? Unchanged Miscellaneous Rx (Hydrocortisone 2.5% cream as 1:1 mix with cerave cream) See instructions Apply three times daily to affected skin. ?? Unchanged Miscellaneous Rx (Ulticare Pen Needle 31 gauge x 5/ 16 ) See instructions USE DIRECTED FIVE TIMES DAILY ?? Unchanged Omeprazole (omeprazole 20 mg oral enteric coated capsule) 1 capsule Oral Twice a day Duration: 90 Days Unchanged Topiramate (topiramate 50 mg oral tablet) TAKE 1 TABLET BY MOUTH TWICE DAILY ?? Unchanged Trazodone (traZODone 100 mg oral tablet) TAKE 1 TO 3 TABLETS AT BEDTIME NEEDED ?? Pharmacy Information [facility]: [address] [place] [address] [phone] ?? What How Much When Comments Stop Taking Hydrochlorothiazide (hydrochlorothiazide 25 mg oral tablet) TAKE 1 TABLET BY MOUTH EVERY DAY FOR 30 DAYS ?? Stop Taking Hydrochlorothiazide (hydrochlorothiazide 25 mg oral tablet) TAKE 1 TABLET BY MOUTH EVERY DAY FOR 30 DAYS ?? Stop Taking Hydrochlorothiazide-Lisinopril (hydrochlorothiazide-lisinopril 25 mg-20 mg oral tablet) 1 tab(s) Oral Daily Stop Taking PredniSONE (predniSONE 10 mg oral tablet) TAKE 4 TABS FOR 5 DAYS, 3 TABS FOR 3 DAYS, 2 TABS FOR 3 DAYS, THEN 1 TAB FOR 3 DAYS ?? Test Results Below is a partial list of the most recent Laboratory test results done prior to this discharge. You may have had other tests and procedures not included in this list. Please discuss all test results with your provider. ABG POC CARTRIDGE (04/19/2022) ???pH (POC) POC Cartridge - 7.35???pCO2 (POC) POC Cartridge - 51.7 mm Hg???pO2 (POC) POC Cartridge -67 mm Hg???Estimated Bicarbonate (POC) POC Cart - 28.6 mmol/L???% O2 Sat Arterial (POC) POC Cartridge - 92 %???Specimen Type - Blood Gas - ARTERIAL Alk Phos (04/17/2022) ???Alkaline Phosphatase - 128 units/L AST (04/17/2022) ???AST (SGOT) - 13 units/L BASE EXCESS POC CARTRIDGE (04/19/2022) ???Base Excess (POC) POC Cartridge - 3 Basic Metabolic Panel (05/04/2022) ???Sodium - 131 mmol/L???Potassium - HEMOLYZED???Chloride - 99 mmol/L???Bicarbonate Level - 26 mmol/L???Anion Gap - 6???Glucose Level - 283 mg/dL???BUN - 35 mg/dL???Creatinine-Blood - 1.2 mg/dL???Estimated GFR Creatinine - 57 ML/MIN/1.73 M2???Calcium - 8.2 mg/dL BUN (04/16/2022) ???BUN - 35 mg/dL C-REACTIVE PROTEIN (04/17/2022) ???C-Reactive Protein - 11.9 mg/dL Calcium Ionized (04/17/2022) ???Calcium, Ionized pH Corrected - 1.12 mmol/L CALCIUM IONIZED POC CART (04/19/2022) ???Ionized Calcium (POC) POC Cartridge - 1.22 mmol/L CBC (05/04/2022) ???WBC - 6.9 k/mm3???RBC - 3.62 m/mm3???Hgb - 8.9 Gm/dL???Hct - 29.9 %???MCV - 82.6 femtoliters???MCH - 24.6 pg???MCHC - 29.8 g/dL???Platelet Count - 264 k/mm3???RDW-SD - 49.9 femtoliters???MPV - 10.0 femtoliters???Nucleated RBC (Automated) - 0.0 #/100 WBC'S???Abs. NRBC - 0.0 k/mm3 CBC w/ Differential (04/23/2022) ???WBC - 7.3 k/mm3???RBC - 4.44 m/mm3???Hgb - 11.1 Gm/dL???Hct - 35.7 %???MCV - 80.4 femtoliters???MCH - 25.0 pg???MCHC - 31.1 g/dL???Platelet Count - 266 k/mm3???RDW-SD - 45.9 femtoliters???MPV - 10.7femtoliters???Nucleated RBC (Automated) - 0.0 #/100 WBC'S???Abs. NRBC - 0.0 k/mm3???Abs. Neut - 5.1 k /mm3???Abs. Lymph - 1.8 k/mm3???Abs. Harlan - 0.3 k/mm3???Abs. Eo - 0.0 k/mm3???Abs. Baso - 0.0 k/mm3???Neut % - 70.2 %???Lymph % - 24.7 %???Harlan % - 4.3 %???Eos % - 0.3 %???Baso % - 0.0 %???Imm Gran - 0.5 %???Abs. Imm Gran - 0.0 k/mm3 Comprehensive Metabolic Panel (04/21/2022) ???Sodium - 136 mmol/L???Potassium - 5.1 mmol/L???Chloride - 98 mmol/L???Bicarbonate Level - 30 mmol/L???Anion Gap - 8???Glucose Level - 211 mg/dL???BUN - 42 mg/dL???Creatinine-Blood - 1.1 mg/dL???Estimated GFR Creatinine - 62 ML/MIN/1.73 M2???Calcium - 8.2 mg/dL???Protein, Total - 7.9 Gm/dL???Albumin - 2.7 Gm/dL???AG Ratio - 0.5???Alkaline Phosphatase - 193 units/L???AST (SGOT) - 17 units/L???ALT (SGPT) - 10 units/L???Bilirubin, Total - 0.5 mg/dL COVID-19, RSV, and Flu A/B, Rapid PCR (04/16/2022) ???Influenza A PCR - NEGATIVE???Influenza B PCR - NEGATIVE???RSV PCR - NEGATIVE???COVID-19 PCR Specimen Source - NASAL???COVID-19 PCR Result - POSITIVE Creatinine (04/17/2022) ???Creatinine-Blood - 1.2 mg/dL???Estimated GFR Creatinine - 55 ML/MIN/1.73 M2 CRP (04/22/2022) ???C-Reactive Protein - 5.3 mg/dL D Dimer (04/16/2022) ???D-Dimer - 1.04 mg/L FEU Electrolytes (04/17/2022) ???Sodium - 138 mmol/L???Potassium - 5.4 mmol/L???Chloride - 104 mmol/L???Bicarbonate Level - 25 mmol/L???Anion Gap - 9 FREE T4 (04/16/2022) ???Free T4 - 1.90 ng/dL Glucose Level (04/17/2022) ???Glucose Level - 263 mg/dL GLUCOSE POC (05/04/2022) ???Glucose, POC - 234 mg/dL GLUCOSE POC CARTRIDGE (04/19/2022) ???Glucose (POC) POC Cartridge - 229 HEMATOCRIT POC CARTRIDGE (04/19/2022) ???Hematocrit (POC) POC Cartridge - 33 % Hemoglobin A1C w/ Estimated Glucose (04/18/2022) ???Hemoglobin A1C (Monitoring) - 9.6 %???Estimated Average Glucose - 229 mg/dL HEMOGLOBIN POC CARTRIDGE (04/19/2022) ???Hemoglobin (POC) POC Cartridge - 11.2 Gm/dL HOLD LAVENDER TUBE (04/26/2022) ???Hold Lavender Top - SPECIMEN DISCARDED AFTER 24 HOURS. Ionized Calcium (04/30/2022) ???Calcium, Ionized pH Corrected - 1.22 mmol/L Lactate Level (04/16/2022) ???Lactate - 1.4 mmol/L Lipid Panel (04/18/2022) ???Cholesterol - 169 mg/dL???Triglycerides - 87 mg/dL???HDL Cholesterol - 46 mg/dL???LDL Cholesterol- 106 mg/dL???Non HDL Cholesterol - 123 mg/dL LMWH Anti Xa Assay (04/20/2022) ???LMWH AntiXa - 0.28 IU/mL Lytes (04/26/2022) ???Sodium - 131 mmol/L???Potassium - 4.9 mmol/L???Chloride - 97 mmol/L???Bicarbonate Level - 32 mmol/L???Anion Gap - 2 Magnesium Level (04/30/2022) ???Magnesium - 1.6 mg/dL Mg Level (04/22/2022) ???Magnesium - 1.7 mg/dL Phosphorus Level (04/26/2022) ???Phosphorus - 2.9 mg/dL POTASSIUM POC CARTRIDGE (04/19/2022) ???Potassium (POC) POC Cartridge - 4.7 mmol/L ProBNP (04/16/2022) ???Nt-Probnp - 487 pg/mL PROCALCITONIN, SERUM (04/19/2022) ???Procalcitonin - 0.07 ng/mL SODIUM POC CARTRIDGE (04/19/2022) ???Sodium (POC) POC Cartridge - 138 mmol/L Troponin T Quant (04/16/2022) ? ?Troponin T Quant - <0.01 ng/mL TSH with T4 Reflex (Adults Only) (04/16/2022) ???TSH - 0.38 uIU/mL VBG POC CARTRIDGE (04/16/2022) ???pH Venous (POC) POC Cartridge - 7.39???pCO2 Venous (POC) POC Cartridge - 47.6 mm Hg???pO2 Venous (POC) POC Cartridge - 31 mm Hg???Est Bicarbonate (POC) POC Cartridge - 28.7 mmol/L???% O2 Sat Venous (POC) POC Cartridge - 57???Specimen Type - Blood Gas - VENOUS Allergies (NKA means No Known Allergies) Latex??(hives) penicillin??(hives) Invokana Januvia amoxicillin metFORMIN Problems Active Problems??(30) Cervical radiculopathy?? Chronic respiratory failure?? COPD (chronic [...] Narcotic dependence?? Nephropathy, diabetic?? Obesity?? Seasonal allergies?? Severe obesity?? Substance abuse?? Tobacco abuse?? Unsteady gait?? Uses walker?? Education Materials Below is the list of Educational Leaflet Providered with your Discharge Instructions. Pulmonary Edema?? Continuous Positive Air Pressure (CPAP)?? Understanding Acute Respiratory Distress Syndrome (ARDS)?? Chronic Lung Disease: Preventing Lung Infections?? Chronic Lung Disease: Managing Sleep Problems?? Coronavirus Disease 2019 (COVID-19): Overview?? Valuables and Belongings I fully understand and agree that [facility] accepts no responsibility for all my personal [...] to send valuables and belongings home. ?? Review of Valuable and Belonging List: With patient Date for Pt to Sign Valuables/Belongings: 05/04/22 09:29:00 ?? Other Discharge Information ?? Wound Assessment?? Wound Assessment?? Wound Location I: Coccyx Wound Type I: Other wound type I Wound I, Wound Base: DTI purple intact ?? Case Management Discharge Plan?? Discharge Plan?? Discharge Agency Information?? Discharge Level of Care at Discharge: Short-term Acute Inpatient Name of Agency #1: [facility] Discharge Transportation Arranged: [facility] [address] [facility] [phone] Agency Director Staffing #1: intake Mode of Transportation Arranged: Ambulance Service Categories #1: Physical Therapy, Shelter Discharge Arranged Transport Date/Time: 05/04/22 10:30:00 ?? Discharge Nursing Homes/Rehab Facilities: [facility] ? Pulmonary Rehab Status?? Pulmonary Rehab Discharge Status?? CPAP/BiPAP Mask Type: Nasal CPAP/BiPAP Mask Size: Medium Respiratory Rate: 18 br/min PEEP: 10 ? Common Emergency Awareness Tips IS IT [...] are strongly encouraged to quit. Please call [employer] at [phone] or [phone] ([phone]) or log in to [email or web address] for referrals to smoking cessation programs. ?? The National Suicide Prevention Hotline is available 25/12 if you or someone you know needs to find areason to keep living. By calling 6-373-974-zvxq (2622) you'll be connected to a skilled, trained counselor at a crisis center in your area. INPATIENT DISCHARGE INSTRUCTIONS SIGNATURE PAGE BETZAIDA SOLIS Location:[facility] Registration Date and Time:04/16/2022 17:49 EST Primary Care Physician: Henry CRUZ, Brenna Cadet, I IRMA BETZAIDA, have received the above patient education materials/instructions and have verbalized understanding. If ambulance or transport services are being used I further acknowledge being given a choice of service. ?? If you need to contact me, please call me at this number: . Patient/Beck Tender Name: Patient/Beck Tender Signature: Relationship to Patient: Witness Name/Signature: Date: Genesis Dubon RN: PERFORM Event Display: Patient Education/Instruction Authored Date: [id number] Inpatient Adult Discharge Instructions [address] [address] Name: BETZAIDA SOLIS : 1970 Visit: 04/16/2022 17:49:00 Current Date: 05/04/2022 10:43 Account: [id number] Inpatient Adult Discharge Instructions We would like [...] and their families. Surveys are administered by [employer] ?? If further treatment with your primary care physician or another doctor is recommended, it is important for you to keep the appointment. Call your primary care physician or return to the Emergency Department immediately if your condition worsens, fails to improve, or new symptoms develop. If you need to find a doctor, you can call [facility] [employer] for a referral at [phone] or toll free at [phone] ([phone]) or log in to [email or web address].. ?? You can view and manage your care through the patient portal or by using a health care radha of your choosing. [employer] is a website that allows you to securely view your medical information including your hospital discharge summary, office visit summaries, medications and follow-up visits. You can also request appointments, renew medications, and request access to your medical information using a health care radha of your choosing, or just ask a question. You can enroll at [email or web address] or register during your next office visit. You have been discharged from [facility], Patient Care Unit: S3. If you have any questions regarding these instructions after you leave, please call us and we will be happy to assist you. [facility] Your Care Team Attending Physician Amor CRUZ, Brenda Consulting Providers Lacho CRUZ, Vanessa Loya MD, Puncho Discharging Providers Safia Stark MD Reason for Admission Assistance with glycemic managment Your Diagnosis Chronic respiratory failure Hypoxia COPD (chronic obstructive pulmonary disease) COPD (chronic obstructive pulmonary disease) COVID-19 virus detected ARDS (adult respiratory distress syndrome) Tests Performed Below is a partial list of the tests performed during your hospitalization. You may have had other tests and procedures not included in this list. Please discuss all test results with your provider. ABG POC CARTRIDGE Alk Phos AST BASE EXCESS POC CARTRIDGE Basic Metabolic Panel BUN C-REACTIVE PROTEIN Calcium Ionized CALCIUM IONIZED POC CART CBC CBC w/ Differential Comprehensive Metabolic Panel COVID-19, RSV, and Flu A/B, Rapid PCR Creatinine CRP D Dimer Electrolytes FREE T4 Glucose Level GLUCOSE POC GLUCOSE POC CARTRIDGE HEMATOCRIT POC CARTRIDGE Hemoglobin A1C w/ Estimated Glucose HEMOGLOBIN POC CARTRIDGE HOLD LAVENDER TUBE Ionized Calcium Lactate Level Lipid Panel LMWH Anti Xa Assay Lytes Magnesium Level Mg Level Phosphorus Level POTASSIUM POC CARTRIDGE ProBNP PROCALCITONIN, SERUM SODIUM POC CARTRIDGE Troponin T Quant TSH with T4 Reflex (Adults Only) VBG POC CARTRIDGE Chest CT W/O Contrast Portable Chest XR Chest Portable Primary Care Provider Henry CRUZ, Brenna Cadet Advance Directive Health Care Proxy on File Yes - Health Care Proxy No qualifying data available. Discharge Vitals Temperature: 97.4 DegF Height: 165 cm Pulse Rate: 70 bpm Weight: 157.6 kg Respiratory Rate: 18 br/min Body Mass Index:??59.06 kg/m2??Critical Systolic Blood Pressure:??153 mm Hg??High Body surface area: 2.71 Diastolic Blood Pressure: 73 mm Hg ?? Oxygen Saturation: 95 % ?? Studies Pending All tests and labs ordered during this hospital stay have been completed unless listed below. Pleasediscuss all pending results with your provider listed above in these instructions. ?? Blood Gas Arterial (ABG) Hold Lavender Tube (BB) What to do next Instructions From Your Doctor You came to the ED with worsening difficulty breathing in the setting of COVID- 19 infection and were found to be with worsening covid-related pneumonia and a condition called ARDS (acute respiratory distress syndrome). This is a critical??condition where fluid builds up in the air sacs of the lungs and makes delivering??oxygen to the rest of??your??blood and then??the rest of your body very difficult. You needed extra support with your breathing with a BIPAP mask but were able to make it down to room air succesfully. We continued your steroid medications for a full 20 days and now we are slowly decreasing it and taking you off of it. We also gave??you a medication called ??baricitinib for covid-19 treatment which you responded to well as well. Your sugars have needed extra work this admission, likely because of your steroids. You are now breathing on room air and??ready to continue your care atrehab ?? please continue taking steroids for 4 more days: dexamethasone 0.75mg 1 pill daily 05/05-05/08 please follow up with your PCP in the next 1-2 weeks Please follow up with your diabetes doctor please continue wearing your CPAP and taking your inhaler medication for [facility] control of your chronic lung disease ?? This is how you will be taking your insulin moving forward: ??- Regimen for 2mg (today): continue lantus / Adjust HISS 18:100+5:50 ??- Regimen for 0.75mg (05/05-05/28): Lantus /, HISS: 14/100 +4/50 (orders will need to be changed effective 05/05/22) ??- Regimen for no steroids (05/09 - onward): Lantus 20/25, HISS: 12/100 + 3/50(orders will need to be changed effective 05/09/22 ?- contact [phone] should her blood sugars to be less than 70, greater than 400 or greater than 250 for a few days. ?? Education Given: Continuous Positive Air Pressure (CPAP)?? Understanding Acute Respiratory Distress Syndrome (ARDS)?? Chronic Lung Disease: Preventing Lung Infections?? Chronic Lung Disease: Managing Sleep Problems?? Coronavirus Disease 2019 (COVID-19): Overview? Please return to the ED for any return or worsening of your symptoms including but not limtied to worsening of shortness of breath, difficulty breathing, fevers, seizures, frequent low blood sugars, syncope or near syncope, confusion, poorly controlled diabetes that cannot be controlled outside the hospital??etc. Please see the Education provided for further guidance ? Patient Follow-up: Added Follow Up ?Time Frame ?Comments Jose JAVIER, Laina Berumen?3-5 day: call to discuss follow up visit?please follow up with [facility] diabetes.?? They should call you to make an appointment but if you do not hear from their office in the next 1-2 days, please call their office. Henry CRUZ, Brenna Cadet?Within one week Discharge Orders You Need to Schedule the Following Appointments Follow Up with??Jose JAVIER, Laina Berumen When??Within 3-5 day: call to discuss follow up visit Why: please follow up with [facility] diabetes.?? They should call you to make an appointment but if you do not hear from their office in the next 1-2 days, please call their office. Where: ?? Follow Up with??Henry CRUZ, Brenna Cadet When??Within Within one week Where: [address] [place] [address]- Discharge Medications BETZAIDA SOLIS :1970 Visit Date:04/16/2022 Medications: Please continue your medications until treatment is completed or stopped by your provider. Medications not listed below should be discontinued. Discuss any questions related to medications with your provider. What How Much When Why Instructions Next Dose New Dexamethasone (dexamethasone 0.5 mg oral tablet) 1.5 tab(s) Oral Daily 05/05 New Ocular Lubricant (Artificial Tears 1.4%) Both eyes Every 4 hours as needed for Other Dryness. ?? as needed New Tiotropium Inhalation Daily Give with Albuterol inhaler ?? 05/05 Changed Amlodipine (AmLODipine Tablet) 10 Milligram Oral Daily 05/05 Changed Clonazepam (clonazePAM 0.5 mg oral tablet) 1 tab(s) Oral Daily as needed for Anxiety as needed Changed HydrOXYzine (hydrOXYzine hydrochloride 10 mg oral tablet) 1 tab(s) Oral 3 times a day as needed for Anxiety as needed Changed Insulin Glargine (Lantus Inj) 36 unit(s) Subcutaneous Injection Daily at Bedtime 36 units in PM om 05/04 28 units in PM on 05/05- 05/08 25 units in PM on 05/09 - onwards until changed by PCP ?? see dates and instructions Changed Insulin Glargine (Lantus Inj) 28 unit(s) Subcutaneous Injection Daily in the morning 28 units in AM om 05/04 22 units in AM on 05/05- 05/08 20 units in AM on 05/09 - onwards until changed by PCP ?? see dates and instructions Changed Insulin Glargine (Lantus Solostar Pen 100 units/ mL subcutaneous solution) See instructions Take 54 units twice daily. E11.65 ?? see dates and instructions Changed Insulin Lispro (insulin lispro 100 u/ ml subcutaneous injection) 12 - 27 units Subcutaneous Infusion 3 times a day before meals << Sliding Scale Comments >> 100 - 149 ?? 12 units Call if less than 70 150 - 199 ?? 15 units 200 - 249 ?? 18 units 250 - 299 ?? 21 units 300 - 349 ?? 24 units 350 - 399 ?? 27 units Call if greater than 400 << Sliding Scale Comments >> ?? Pickup at [facility] see dates and instructions Changed Insulin Lispro (insulin lispro 100 u/ ml subcutaneous injection) 18-43 units Subcutaneous Injection 3 times a day before meals << Sliding Scale Comments >> 100 - 149 ?? 18 units Call if less than 70 150 - 199 ?? 23 units 200 - 249 ?? 28 units 250 - 299 ?? 33 units 300 - 349 ?? 38 units 350 - 399 ?? 43 units Call if greater than 400 << Sliding Scale Comments >> ?? see dates and instructions Changed Insulin Lispro (insulin lispro 100 units/ mL injectable solution) 14 - 34 units Subcutaneous Infusion 3 times a day before meals << Sliding Scale Comments >> 100 - 149 ?? 14 units Call if less than 70 150 - 199 ?? 18 units 200 - 249 ?? 22 units 250 - 299 ?? 26 units 300 - 349 ?? 30 units 350 - 399 ?? 34 units Call if greater than 400 << Sliding Scale Comments >> ?? Pickup at [facility] see dates and instructions Changed Levothyroxine (levothyroxine 75 mcg (0.075 mg) oral tablet) 1 tab(s) Oral Daily 6am 122 Unchanged Albuterol (ProAir HFA 90 mcg/ inh inhalation aerosol with adapter) 2 puff(s) Inhalation Every 4 hours as needed for NEEDED FOR WHEEZING as needed Unchanged Aspirin (Aspirin Low Dose 81 mg oral delayed release tablet) 1 tab(s) Oral Daily no CRUSH OR CHEW ?? 9a05/05 Unchanged Atorvastatin (atorvastatin 80 mg oral tablet) 1 tab(s) Oral Daily 9a05/05 Unchanged Buprenorphine-Naloxone (Suboxone 8 mg-2 mg sublingual film) 1 Film Sublingual Daily dissolve under the tongue ?? 9a05/05 Unchanged Durable Medical Equipment (Bedpan) See instructions DX: Morbid Obesity, Chronic low back pain, chronic knee pain ?? see instructions Unchanged Durable Medical Equipment (Bedside Commode) See instructions DX: Morbid Obesity, Chronic low back pain, chronic knee pain Length of need: lifetime HT: 165cm ??WT: 164.1kg ?? see instructions Unchanged Durable Medical Equipment (Bedside Commode) See instructions Impaired mobility Unsteady gait Large Bedside Commode Impaired Mobility (Z74.09) Unsteady Gait (R26.81) Daily use Life long (99) ?? see instructions Unchanged Durable Medical Equipment (Diapers) See instructions Urinary incontinence Change 5 times daily Life long (99) Urinary Incontinence (R32) Size 45-58 ?? see instructions Unchanged Durable Medical Equipment (Freestyle Lancets) See instructions Use as instructed to test blood sugars before meals, at bedtime and as needed, 4-5x/ day keep appointment for futher refills ?? see instructions Unchanged Durable Medical Equipment (Freestyle Lite Monitor) See instructions Pt to check blood sugar 4x daily as directed for dx of E11.65 ?? see instructions Unchanged Durable Medical Equipment (Freestyle Lite Test Strips) See instructions Check blood sugar 4 times daily. E11.65 ?? see instructions Unchanged Durable Medical Equipment (HEAVY DUTY WHEELCHAIR WITH FOOT REST) See instructions Unsteady gait DX UNSTEADY GAIT (R26.81) JANE: LIFETIME (99) ?? see instructions Unchanged Durable Medical Equipment (padded toilet seat) See instructions dx: buttock sores ?? see instructions Unchanged Durable Medical Equipment (Pen [place], 31 G x 8 mm BD Ultra Fine III) See instructions Use to inject insulin up to 5x a day. E11.9 ?? see instructions Unchanged Durable Medical Equipment (Shower Chair) See instructions DX: Morbid Obesity,Chronic ??Knee pain, Chronic low back pain Length of need: lifetime HT: 165cm ??WT: 164.1kg ?? see instructions Unchanged Durable Medical Equipment (Shower Chair) See instructions Abnormality of gait and mobility Unsteady gait Heavy duty shower chair Dx: Unsteady gait and abnormality of mobility Height 158cm Weight 161Kg ?? see instructions Unchanged Fluoxetine (PROzac 20 mg oral capsule) 3 capsule Oral Daily 9am 05/05 Unchanged Gabapentin (gabapentin 600 mg oral tablet) 1 tab(s) Oral 3 times a day Duration: 30 Days 3pm 05/04 Unchanged Ibuprofen (ibuprofen 800 mg oral tablet) 1 tab(s) Oral 3 times a day as needed for NEEDED FOR PAIN WITH FOOD OR MILK as needed Unchanged Loratadine (loratadine 10 mg oral tablet) 1 tab(s) Oral Daily 9am 05/05 Unchanged Miscellaneous Rx (FreeStyle [place] Lite kit) See instructions TEST BLOOD SUGAR FOUR TIMES DAILY ?? see instructions Unchanged Miscellaneous Rx (Hydrocortisone 2.5% cream as 1:1 mix with cerave cream) See instructions Apply three times daily to affected skin. ?? see instructions Unchanged Miscellaneous Rx (Ulticare Pen Needle 31 gauge x 5/ 16 ) See instructions USE DIRECTED FIVE TIMES DAILY ?? see instructions Unchanged Omeprazole (omeprazole 20 mg oral enteric coated capsule) 1 capsule Oral Twice a day Duration: 90 Days 9pm 05/04 Unchanged Topiramate (topiramate 50 mg oral tablet) TAKE 1 TABLET BY MOUTH TWICE DAILY ?? 9pm 05/04 Unchanged Trazodone (traZODone 100 mg oral tablet) TAKE 1 TO 3 TABLETS AT BEDTIME NEEDED ?? as needed Pharmacy Information [facility]: [address] [place] [address] [phone] ?? What How Much When Comments Stop Taking Hydrochlorothiazide (hydrochlorothiazide 25 mg oral tablet) TAKE 1 TABLET BY MOUTH EVERY DAY FOR 30 DAYS ?? Stop Taking Hydrochlorothiazide (hydrochlorothiazide 25 mg oral tablet) TAKE 1 TABLET BY MOUTH EVERY DAY FOR 30 DAYS ?? Stop Taking Hydrochlorothiazide-Lisinopril (hydrochlorothiazide-lisinopril 25 mg-20 mg oral tablet) 1 tab(s) Oral Daily Stop Taking PredniSONE (predniSONE 10 mg oral tablet) TAKE 4 TABS FOR 5 DAYS, 3 TABS FOR 3 DAYS, 2 TABS FOR 3 DAYS, THEN 1 TAB FOR 3 DAYS ?? Test Results Below is a partial list of the most recent Laboratory test results done prior to this discharge. You may have had other tests and procedures not included in this list. Please discuss all test results with your provider. ABG POC CARTRIDGE (04/19/2022) ???pH (POC) POC Cartridge - 7.35???pCO2 (POC) POC Cartridge - 51.7 mm Hg???pO2 (POC) POC Cartridge -67 mm Hg???Estimated Bicarbonate (POC) POC Cart - 28.6 mmol/L???% O2 Sat Arterial (POC) POC Cartridge - 92 %???Specimen Type - Blood Gas - ARTERIAL Alk Phos (04/17/2022) ???Alkaline Phosphatase - 128 units/L AST (04/17/2022) ???AST (SGOT) - 13 units/L BASE EXCESS POC CARTRIDGE (04/19/2022) ???Base Excess (POC) POC Cartridge - 3 Basic Metabolic Panel (05/04/2022) ???Sodium - 131 mmol/L???Potassium - HEMOLYZED???Chloride - 99 mmol/L???Bicarbonate Level - 26 mmol/L???Anion Gap - 6???Glucose Level - 283 mg/dL???BUN - 35 mg/dL???Creatinine-Blood - 1.2 mg/dL???Estimated GFR Creatinine - 57 ML/MIN/1.73 M2???Calcium - 8.2 mg/dL BUN (04/16/2022) ???BUN - 35 mg/dL C-REACTIVE PROTEIN (04/17/2022) ???C-Reactive Protein - 11.9 mg/dL Calcium Ionized (04/17/2022) ???Calcium, Ionized pH Corrected - 1.12 mmol/L CALCIUM IONIZED POC CART (04/19/2022) ???Ionized Calcium (POC) POC Cartridge - 1.22 mmol/L CBC (05/04/2022) ???WBC - 6.9 k/mm3???RBC - 3.62 m/mm3???Hgb - 8.9 Gm/dL???Hct - 29.9 %???MCV - 82.6 femtoliters???MCH - 24.6 pg???MCHC - 29.8 g/dL???Platelet Count - 264 k/mm3???RDW-SD - 49.9 femtoliters???MPV - 10.0 femtoliters???Nucleated RBC (Automated) - 0.0 #/100 WBC'S???Abs. NRBC - 0.0 k/mm3 CBC w/ Differential (04/23/2022) ???WBC - 7.3 k/mm3???RBC - 4.44 m/mm3???Hgb - 11.1 Gm/dL???Hct - 35.7 %???MCV - 80.4 femtoliters???MCH - 25.0 pg???MCHC - 31.1 g/dL???Platelet Count - 266 k/mm3???RDW-SD - 45.9 femtoliters???MPV - 10.7femtoliters???Nucleated RBC (Automated) - 0.0 #/100 WBC'S???Abs. NRBC - 0.0 k/mm3???Abs. Neut - 5.1 k /mm3???Abs. Lymph - 1.8 k/mm3???Abs. [place]lan - 0.3 k/mm3???Abs. Eo - 0.0 k/mm3???Abs. Baso - 0.0 k/mm3???Neut % - 70.2 %???Lymph % - 24.7 %???[place]arlan % - 4.3 %???Eos % - 0.3 %???Baso % - 0.0 %???Imm Gran - 0.5 %???Abs. Imm Gran - 0.0 k/mm3 Comprehensive Metabolic Panel (04/21/2022) ???Sodium - 136 mmol/L???Potassium - 5.1 mmol/L???Chloride - 98 mmol/L???Bicarbonate Level - 30 mmol/L???Anion Gap - 8???Glucose Level - 211 mg/dL???BUN - 42 mg/dL???Creatinine-Blood - 1.1 mg/dL???Estimated GFR Creatinine - 62 ML/MIN/1.73 M2???Calcium - 8.2 mg/dL???Protein, Total - 7.9 Gm/dL???Albumin - 2.7 Gm/dL???AG Ratio - 0.5???Alkaline Phosphatase - 193 units/L???AST (SGOT) - 17 units/L???ALT (SGPT) - 10 units/L???Bilirubin, Total - 0.5 mg/dL COVID-19, RSV, and Flu A/B, Rapid PCR (04/16/2022) ???Influenza A PCR - NEGATIVE???Influenza B PCR - NEGATIVE???RSV PCR - NEGATIVE???COVID-19 PCR Specimen Source - NASAL???COVID-19 PCR Result - POSITIVE Creatinine (04/17/2022) ???Creatinine-Blood - 1.2 mg/dL???Estimated GFR Creatinine - 55 ML/MIN/1.73 M2 CRP (04/22/2022) ???C-Reactive Protein - 5.3 mg/dL D Dimer (04/16/2022) ???D-Dimer - 1.04 mg/L FEU Electrolytes (04/17/2022) ???Sodium - 138 mmol/L???Potassium - 5.4 mmol/L???Chloride - 104 mmol/L???Bicarbonate Level - 25 mmol/L???Anion Gap - 9 FREE T4 (04/16/2022) ???Free T4 - 1.90 ng/dL Glucose Level (04/17/2022) ???Glucose Level - 263 mg/dL GLUCOSE POC (05/04/2022) ???Glucose, POC - 135 mg/dL GLUCOSE POC CARTRIDGE (04/19/2022) ???Glucose (POC) POC Cartridge - 229 HEMATOCRIT POC CARTRIDGE (04/19/2022) ???Hematocrit (POC) POC Cartridge - 33 % Hemoglobin A1C w/ Estimated Glucose (04/18/2022) ???Hemoglobin A1C (Monitoring) - 9.6 %???Estimated Average Glucose - 229 mg/dL HEMOGLOBIN POC CARTRIDGE (04/19/2022) ???Hemoglobin (POC) POC Cartridge - 11.2 Gm/dL HOLD LAVENDER TUBE (04/26/2022) ???Hold Lavender Top - SPECIMEN DISCARDED AFTER 24 HOURS. Ionized Calcium (04/30/2022) ???Calcium, Ionized pH Corrected - 1.22 mmol/L Lactate Level (04/16/2022) ???Lactate - 1.4 mmol/L Lipid Panel (04/18/2022) ???Cholesterol - 169 mg/dL???Triglycerides - 87 mg/dL???HDL Cholesterol - 46 mg/dL???LDL Cholesterol- 106 mg/dL???Non HDL Cholesterol - 123 mg/dL LMWH Anti Xa Assay (04/20/2022) ???LMWH AntiXa - 0.28 IU/mL Lytes (04/26/2022) ???Sodium - 131 mmol/L???Potassium - 4.9 mmol/L???Chloride - 97 mmol/L???Bicarbonate Level - 32 mmol/L???Anion Gap - 2 Magnesium Level (04/30/2022) ???Magnesium - 1.6 mg/dL Mg Level (04/22/2022) ???Magnesium - 1.7 mg/dL Phosphorus Level (04/26/2022) ???Phosphorus - 2.9 mg/dL POTASSIUM POC CARTRIDGE (04/19/2022) ???Potassium (POC) POC Cartridge - 4.7 mmol/L ProBNP (04/16/2022) ???Nt-Probnp - 487 pg/mL PROCALCITONIN, SERUM (04/19/2022) ???Procalcitonin - 0.07 ng/mL SODIUM POC CARTRIDGE (04/19/2022) ???Sodium (POC) POC Cartridge - 138 mmol/L Troponin T Quant (04/16/2022) ? ?Troponin T Quant - <0.01 ng/mL TSH with T4 Reflex (Adults Only) (04/16/2022) ???TSH - 0.38 uIU/mL VBG POC CARTRIDGE (04/16/2022) ???pH Venous (POC) POC Cartridge - 7.39???pCO2 Venous (POC) POC Cartridge - 47.6 mm Hg???pO2 Venous (POC) POC Cartridge - 31 mm Hg???Est Bicarbonate (POC) POC Cartridge - 28.7 mmol/L???% O2 Sat Venous (POC) POC Cartridge - 57???Specimen Type - Blood Gas - VENOUS Allergies (NKA means No Known Allergies) Latex??(hives) penicillin??(hives) Invokana Januvia amoxicillin metFORMIN Problems Active Problems??(30) Cervical radiculopathy?? Chronic respiratory failure?? COPD (chronic [...] Narcotic dependence?? Nephropathy, diabetic?? Obesity?? Seasonal allergies?? Severe obesity?? Substance abuse?? Tobacco abuse?? Unsteady gait?? Uses walker?? Education Materials Below is the list of Educational Leaflet Providered with your Discharge Instructions. Pulmonary Edema?? Continuous Positive Air Pressure (CPAP)?? Understanding Acute Respiratory Distress Syndrome (ARDS)?? Chronic Lung Disease: Preventing Lung Infections?? Chronic Lung Disease: Managing Sleep Problems?? Coronavirus Disease 2019 (COVID-19): Overview?? Valuables and Belongings I fully understand and agree that [facility] accepts no responsibility for all my personal [...] to send valuables and belongings home. ?? Review of Valuable and Belonging List: With patient Date for Pt to Sign Valuables/Belongings: 05/04/22 09:29:00 ?? Other Discharge Information ?? Wound Assessment?? Wound Assessment?? Wound Location I: Coccyx Wound Type I: Other wound type I Wound I, Wound Base: DTI purple intact ?? Case Management Discharge Plan?? Discharge Plan?? Discharge Agency Information?? Discharge Level of Care at Discharge: Short-term Acute Inpatient Name of Agency #1: [facility] Discharge Transportation Arranged: [facility] [address] [facility] [id number] [phone] Agency Director Staffing #1: intake Mode of Transportation Arranged: Ambulance Service Categories #1: Physical Therapy, Shelter Discharge Arranged Transport Date/Time: 05/04/22 10:30:00 ?? Discharge Nursing Homes/Rehab Facilities: [facility] ? Pulmonary Rehab Status?? Pulmonary Rehab Discharge Status?? CPAP/BiPAP Mask Type: Nasal CPAP/BiPAP Mask Size: Medium Respiratory Rate: 18 br/min PEEP: 10 ? Common Emergency Awareness Tips IS IT [...] are strongly encouraged to quit. Please call [employer] at [phone] or [phone] (0038) or log in to [email or web address] for referrals to smoking cessation programs. ?? The National Suicide Prevention Hotline is available 25/12 if you or someone you know needs to find areason to keep living. By calling 6-679-557-ddly (0610) you'll be connected to a skilled, trained counselor at a crisis center in your area. INPATIENT DISCHARGE INSTRUCTIONS SIGNATURE PAGE BETZAIDA SOLIS Location:[facility] Registration Date and Time:04/16/2022 17:49 EST Primary Care Physician: Henry CRUZ, Brenna Cadet, I BETZAIDA SOLIS, have received the above patient education materials/instructions and have verbalized understanding. If ambulance or transport services are being used I further acknowledge being given a choice of service. ?? If you need to contact me, please call me at this number: . Patient/Beck Tender Name: Patient/Beck Tender Signature: Relationship to Patient: Witness Name/Signature: Date: Genesis Dubon RN: PERFORM Event Display: Patient Education Leaflets Authored Date: Pulmonary Edema ?? 87456 Pulmonary Edema Your healthcare provider has told you that you have pulmonary edema. Read on to learn more about this condition and how it can be treated. What is pulmonary edema? Pulmonary edema is caused by excess fluids in your lungs. It occurs when the air sacs (alveoli) in your lungs fill with fluid. The fluid buildup makes it hard for the lungs to do their job, including getting oxygen from the air you breathe and moving it through the body. This makes it hard to breathe. Pulmonary edema can happen suddenly, or it may develop slowly over time. The most common cause of pulmonary edema is heart failure. When the heart isn't able to pump efficiently, it can cause pressure to rise in the veins (blood vessels) of the lungs. As pressure builds, fluid leaks out of the congested veins. It fills the alveoli. The extra fluid prevents oxygen from moving through the lungs as it should. But heart failure isn???t the only cause of pulmonary edema. Damage to the lungs or kidney failure can also cause fluid to fill the lungs. And in some cases, living or exercising at high altitudes can lead to fluid buildup in the lungs. Pulmonary edema is fluid in the air sacs (alveoli) in the lungs. ?? How is pulmonary edema diagnosed? Your healthcare provider does an exam and asks about your health history. You may also have one or more of the following: ??? Blood tests. These are done to check for abnormalities, help rule out other problems, and determine blood oxygen levels. ??? Imaging tests. These tests take detailed pictures inside the body. They may include a chest X-ray and ultrasound. ??? Electrocardiography (ECG)??and echocardiogram. These are done to test how well the heart is working. ?? How is pulmonary edema treated? Treatment depends on what???s causing the edema. For instance, if it???s because of??heart failure,treating the heart condition will help treat the edema. Treatment can also ease symptoms. Therapy often includes the following: ??? Oxygen.??This may be given through a mask that goes over the nose. Itmay be given through a small tube that sits under the nose. Sometimes pressurized air will be neededthrough a tight-fitting mask, using a machine called CPAP or BiPAP. Or it may be given through a tube placed into the windpipe (trachea). If a tube is needed, a breathing machine (ventilator or respirator) will be used. ??? Medicines.??These may include water pills (diuretics) to help your body get rid of extra fluid by promoting extra urine output. You may also need medicines to treat the heart. These can help your heart pump more efficiently. This??helps reduce fluid buildup in the lungs. ?? What are the long-term concerns? If treated right away, pulmonary edema can be improved and hopefully resolved. In some cases, ongoing treatment is needed to help prevent and control the problem. This may??require having procedures or taking medicines for months or years. In some cases, you may need to use??oxygen or breathing equipment for a long time. This can lead to complications, such as damage to lung tissue. Your healthcare provider can explain your treatment and management options. ?? Call 911 Call 911 if any of these occur: ??? Chest pain or chest tightness ??? Feeling of doom ??? Wheezing that doesn't improve or get better with treatment ??? Shortness of breath that doesn't improve or getbetter with treatment ??? Severe trouble breathing and a feeling that you are suffocating ??? Coughing up blood ??? Skin turns blue, purple, or quevedo ??? Can't speak full sentences before running out ofbreath ??? Feeling faint, dizzy, or loss of consciousness ??? Confusion ?? When to call your healthcare provider Call your??provider right away if you have any of these: ??? Abnormal, fast, or irregular heartbeat??? Increasing anxiety, restlessness ??? Change in color of your sputum ??? Sweating more than normal ??? Wheezing ??? Shortness of breath ??? Swelling of the leg between your knee and your ankle ?? Last Reviewed Date: 2021 ?? 2020-0525 [employer]. All rights reserved. This information is not intended as a substitute for professional medical care. Always follow your healthcare professional's instructions. ??Safia Stark MD: PERFORM Event Display: Patient Education Leaflets Authored Date: [id number] Continuous Positive Air Pressure (CPAP) ?? 95884 Continuous Positive Air Pressure (CPAP) A mask over the nose gently directs air into the throat to keep the airway open. Continuous positive air pressure (CPAP)??uses gentle air pressure to hold the airway open. CPAP is often the most effective treatment for sleep apnea. It works very well as a treatment for adults diagnosed with obstructive sleep apnea with a lot of sleepiness. But keep in mind that it can take several adjustments before the setup is right for you. How CPAP works The CPAP machine ??is a??small portable pump that sits beside the bed. The pump??sends air through a hose, which is held over your nose alone, or nose and mouth??by a mask.??Mild air pressure??is gently pushed through your airway. The air pressure nudges sagging tissues aside. This widens the airway so you can breathe better. CPAP may be combined with other kinds of therapy for sleep apnea. ?? Types of air pressure treatments There are different types of CPAP. Your doctor or CPAP predictive maintenance technician will help you decide which type is best for you: ??? Basic CPAP??keeps the pressure constant all night long. ??? A bilevel device??(BiPAP)??provides??more pressure when you breathe in and less when you breathe out.??A BiPAP machine also may be set to provide automatic breaths to maintain breathing if you stop breathing while sleeping.??? An autoCPAP device??automatically adjusts pressure throughout the night and in response to changes such as body position, sleep stage, and snoring. ?? Last Reviewed Date: 2018 ?? [id number] [employer]. All rights reserved. This information is not intended as a substitute for professional medical care. Always follow your healthcare professional's instructions. ??Safia Stark MD: PERFORM Event Display: Patient Education Leaflets Authored Date: [id number] Understanding Acute Respiratory Distress Syndrome (ARDS) ?? 73321 Understanding Acute Respiratory Distress Syndrome (ARDS)?? Acute respiratory distress syndrome (ARDS) is a severe lung condition. It most often happens a few days after a serious illness or injury. Most people with ARDS are already in hospital care. ARDS causes lungs to become inflamed and the small air sacs in the lungs (alveoli) to fill with fluid. The lungs then can???t work well enough to bring oxygen into the body. ARDS can be hard to treat, and can lead to severe health problems and . What causes ARDS??? Experts don???t yet understand why ARDS occurs in some people and not in others. It can happen after an illness or injury, such as: ??? Severe body inflammation (sepsis) ??? Breathing stomach contents into the lungs (aspiration) ??? Breathing water into the lungs in a near-drowning ??? Lung infection such as pneumonia ??? Chest injury that bruises the lungs ??? Breathing in smoke or other fumes ??? Severe felder or bleeding ??? Severe reaction to medicine such as chemotherapy ??? Inflammation of the pancreas (pancreatitis) ??? Other severe injury?? Certain things can make you more at risk for ARDS. These include: ??? Recent high-risk surgery, such as heart or abdominal surgery ??? Having a large blood transfusion ??? Being a smoker ??? History of alcohol abuse ??? Obesity? Symptoms of ARDS Symptoms often start 48 to 72 hours after the original illness or injury. They get worse quickly. They can include: ??? Shortness of breath ??? Fast breathing ??? Coughing ??? Fever ??? Fast heart rate ??? Chest pain when inhaling ??? Blue tint to nails and lips? Diagnosing ARDS?? Your healthcare provider will ask about your health history and give you a physical exam. He or shewill listen to your lungs with a stethoscope as you breathe. A crackling sound may mean you have fluid in the lungs. You may have tests to check for signs of ARDS or other conditions that can cause fluid in the lungs. Tests may include: ??? Blood tests. These check your blood oxygen level and look forsigns of infection. ??? Chest X-ray. This test can show fluid in the lungs. ??? Echocardiogram. Thisimaging test looks at the heart as it beats. It???s done to check for signs of heart failure. ??? Sputum culture. This test is done on mucus from your lungs. It checks for signs of lung infection, suchas bacteria.? Lung biopsy. This procedure is rarely done during the diagnostic exam of people who may have ARDS. ?? Treatment for ARDS?? The most common treatment for ARDS is mechanical ventilation. This means having a breathing machinesend oxygen-rich air into your lungs. A tube is put through your mouth and throat, and down into your lungs. The tube is connected to a machine called a ventilator that gives you air. It can be adjusted to give you as much air as needed. You may need to be on a ventilator for a week or more.?? You'll also likely be given medicine to keep you relaxed (sedated) and relieve pain while the tube is in your throat. This is because the tube is uncomfortable, and you need to not move too much whileit???s in place. In some cases, a tube may be put through a small cut (incision) in the front of your throat. This is called a tracheostomy. This can be more comfortable and allow for less sedation while you???re on the breathing machine. This is often done after the breathing tube has been in your throat for several days.?? You'll also be given other types of treatment that may include: ??? Liquid nutrition through a tube that leads to your stomach ??? Liquid nutrition through a tube put in a vein in your chest or arm ??? Antibiotics to treat an infection ??? Diuretic medicine to help remove extra fluid from your body ??? Medicine to prevent blood clots or stomach bleeding Because ARDS can be a life-threatening condition, you may need other tests and to make decisions about your care in a short period of time.??Your healthcare team will keep you and your family informedof your condition. They will let you and your family know the treatments being used or considered. They can answer your questions and concerns.?? When you start to recover, you will be weaned off the ventilator. This means less air will be used and your lungs will do more work. Weaning is done carefully over days. The breathing tube is removed when your lungs are working well enough. ?? Possible complications of ARDS?? ARDS can cause scarring of the lungs (fibrosis). It can cause organ failure from lack of oxygen to the organs. It can also cause .? Life after ARDS?? Recovery from ARDS can take time. After ARDS, you may have problems such as less lung function. Youmay feel weak and get tired more easily. You may need to use oxygen at home. You may also need otherhome-based services such as physical and occupational therapy.?? You may have depression and anxiety, or problems with thinking and remembering. ARDS can cause emotional stress for both the person and their family. Talk with the healthcare team about treatment for??depression and anxiety. Also ask about counseling and ARDS support groups for you and your family. You should see a healthcare provider who has experience with ARDS for follow-up care.? Call 911 Call 911 right away if you have these symptoms after an illness or injury: ??? Shortness of breath ??? Fast breathing ??? Fast heart rate ??? Chest pain ??? Blue, purple, or quevedo color of nails and lips ??? Unable to talk ??? Feeling faint or dizzy ??? Coughing or as directed by your healthcare provider ??? Fever of 100.4??F (38??C) or higher, or as directed by your healthcare provider ??? Chills oras directed by your healthcare provider ?? Last Reviewed Date: 2020 ?? [id number] [employer]. All rights reserved. This information is not intended as a substitute for professional medical care. Always follow your healthcare professional's instructions. ?? Event Display: Cardiac Rhythm Strips Authored Date: Event Display: Provider Clarification Note Please click on pdf link to open report Event Display: Cardiac Rhythm Strips Authored Date: Event Display: Cardiac Rhythm Strips Authored Date: Hospital Progress note Vanessa Monk MD: PERFORM, SIGN, VERIFY Event Display: Progress Note Hospital Authored Date: Patient: BETZAIDA SOLIS Age: 51 years Sex: Female : 1970 Associated Diagnoses: None Author: Vanessa Monk MD Over the last 24 hours patient's blood sugars have ranged from 72???2 95 on a regimen of Lantus 28 units in the morning and 36 units in the evening time and a Humalog sliding scale 20: 100+4: 50. Over the last 24 hours she has received 116 units of insulin which corresponds to a weight-based dose of approximately 0.725 units/kg. What is interesting is that patient received 20 units from her scale forblood sugar of 120 5 in the morning and that was too much insulin as she fell down to 72 but when she received 32 units for a blood sugar of 276 she actually samson. Perhaps this suggests that we need tostart her scale off at a lower number but tighten her sensitivity. Fasting blood sugars running 135. Plan for today: (orders adjusted) - continue lantus - Adjust HISS 18:100+5:50 Plan will be to continue 2 mg of dexamethasone with last dose 05/04 (today) and then 0.75 mg of dexamethasone from 05/05-05/08 and then off. I do not think she needs to stay in the hospital solely for dexamethasone taper. She does follow with us as an outpatient and we can assist with adjusting insulin around her steroid taper after she leaves the hospital. I would anticipate decreasing her total daily dose of insulin by about 20% as she goes from 2 mg of dexamethasone down to 0.75. Perhaps anticipate a 10% drop after the dexamethasone 0.75 falls off. Jenniferwiele be discharged on final hospital basal bolus regimen with the above recommendations regarding her steroid taper. Once she is discharged she can contact [phone] should her blood sugars to be less than 70, greater than 400 or greater than 250 for a few days. Therefore Regimen for 0.75mg: Lantus , HISS: 14/100 +4/50 (orders will need to be changed effective 05/05/22) Regimen for no steroid: Lantus /, HISS: 12/100 + 3/50(orders will need to be changed effective 05/09/22) Vanessa Monk MD Endocrine attendingCaity Feliciano RN: PERFORM, MODIFY, SIGN, VERIFY Event Display: Progress Note Hospital Authored Date: Patient: BETZAIDA SOLIS Age: 51 years Sex: Female : 1970 Associated Diagnoses: None Author: Caity Feliciano RN Findings Problem Related to Alteration in Endocrine : Alteration in Endocrine Function/new 05/03/2022 21:00 EST Alteration in Endocrine Related to Diabetes, Hyperglycemia Goals & Outcomes, Endocrine Blood glucose levels will stabilize during hospitalization, Vital signs, electrolytes & blood glucose will stabilize, Pt will be maintained on sc insulin & appropriate diet Interventions, Endocrine Assess/monitor GI/ status, Assess skin turgor, temperature & capillary refill, Maintain IV access, Assess & monitor for insulin effects; hypoglycemia Goals/Interventions, Endocrine Yes Endocrine, Problem Start 04/22/2022 19:00 Reviewed Plan with, Endocrine Patient Patient Progression, Endocrine Pt progressing according to plan . Alteration in Integumentary : Alteration in Integumentary/new 05/03/2022 21:00 EST Alteration in Integumentary Related to Moisture, Friction, Immobility Goals & Outcomes, Integumentary Nutritional intake is adequate for metabolic needs, Pt will maintain adequate fluid & nutritional balance, Pt will maintain intact skin integrity Interventions, Integumentary Encourage & assist pt to change position frequently, Encourage & assist with range of motion exercises, Encourage family participation in pt's care as they are able, Keep bed as flat as tolerated to reduce shearing, Keep linen clean, dry and wrinkle free, Keep skin clean & dry, Minimize friction, shear and moisture, Monitor reddened areas for continued or increasing reddness, Record extent of impaired skin integrity Goals/Interventions, Integumentary Yes Integumentary, Problem Start 04/22/2022 19:00 Reviewed plan with, Integumentary Patient Patient Progression, Integumentary Pt progressing according to plan . Alteration in Respiratory Function (new) : Alteration in Respiratory Function/new 05/03/2022 21:00 EST Alteration in Resp Status Related to COPD, Other: Pulm edema Goals & Outcomes, Respiratory Pt will maintain/resume baseline physical assessment, Pt will maintain adequate nutritional intake, Pt will maintain/resume normal fluid/electrolyte balance, Pt will not develop complications r/t immobility, Pt will demonstrate proper technique w/self care procedures Interventions, Respiratory Assess for and report S&S of respiratory distress, Position for comfort & optimal oxygenation Goals/Interventions, Respiratory Yes Respiratory, Problem Start 04/17/2022 2:20 Reviewed Plan with, Respiratory Patient Patient Progression, Respiratory Patient progressing according to plan . Nursing Data Vital Signs : VITAL SIGNS SECTION 05/03/2022 23:00 EST Early Warning Score 3.00 05/03/2022 23:00 EST Temperature 98.9 DegF Temperature Route Oral Pulse Rate 74 bpm Respiratory Rate 18 br/min Systolic Blood Pressure 145 mm Hg H Diastolic Blood Pressure 63 mm Hg Blood pressure sites Arm, right Oxygen Saturation 92 % L Mode of Delivery (Oxygen) Room air . Evaluation Assumed care at 1900. Pt A&O x4, sitting up in bed with no c/o pain initially. Pt then reported 7/10 back pain and asked for PRN Tylenol. Pt medicated with PRN Tylenol per AUG with good effect. Assessment as documented. VSS. Pt intermittently wearing 1L O2 via NC. Sats high 90's on 1L and low 90'son RA. Pt refused her CPAP overnight. Pt medicated with PRN Hydroxyzine x1 per AUG for anxiety with good effect. Pt also medicated with PRN Trazodone x1 per AUG with good effect. Pt resting in naps overnight. Comfort and safety maintained, call celaya in reach and bed alarm on. Purewick in place and draining clear, yellow urine. Pt discharging to [facility] this morning for pending discharge at 10:30am. BS 245at bedtime. Report given to [facility] on [facility] discharge unit. . Discharge Information Case Management Discharge Plan : Case Management Discharge Plan Data 05/03/2022 15:20 EST Discharge Level of Care at Discharge Short-term Acute Inpatient Discharge Nursing Homes/Rehab Facilities [facility] Discharge Transportation Arranged [facility] [address] [facility] [id number] [phone] Discharge Arranged Transport Date/Time 05/04/2022 10:30 Mode of Transportation Arranged Ambulance Name of Agency #1 [facility] Agency Director Staffing #1 intake Service Categories #1 Physical Therapy, Shelter Pulmonary Rehab Discharge : Pulmonary Rehab Discharge Status 04/29/2022 1:37 EST CPAP/BiPAP Mask Type Nasal CPAP/BiPAP Mask Size Medium Rehabilitation Discharge : Rehab Discharge Index 05/03/2022 9:38 EST Walker: distance < 10Safia Stark MD: PERFORM Event Display: Progress Note Hospital Authored Date: [id number] Patient: ??BETZAIDA SOLIS ? Age:??51 Years?Sex:??Female?:??1970?? Subjective vitals monitored and stable briefly took off NC today and was comfortable on room air no acute overnight events reports feeling well and excited to go to rehab Review of Systems negative except as otherwise stated in subjective report Objective Measurements?? Height: 165 cm (05/02/22) Weight: 157.6 kg (04/19/22) Dry Weight: 160.8 kg (04/16/22) Body Mass Index:??59.06 kg/m2??Critical (04/16/22) ? Vital Signs?? Temperature: 97.9 DegF (05/03/22 16:00:00) Temperature Route: Oral (05/03/22 16:00:00) Pulse Rate: 73 bpm (05/03/22 16:00:00) Respiratory Rate: 19 br/min (05/03/22 16:45:00) Systolic Blood Pressure:??154 mm Hg??High (05/03/22 16:00:00) Diastolic Blood Pressure: 67 mm Hg (05/03/22 16:00:00) Blood pressure sites: Arm, left (05/03/22 16:00:00) Pulse Pressure: 87 mm Hg (05/03/22 16:00:00) Oxygen Saturation:??89 %??Low (05/03/22 16:00:00) Liters per Minute: 1 L/min (05/03/22 07:00:00) Mode of Delivery (Oxygen): Room air (05/03/22 16:00:00) Early Warning Score: 6 (05/03/22 16:46:02) ? Pain Scores 1 - 10 Pain Scale Score: 6 (08:32) Pain relief acceptable: Yes (08:32) ? Intake/Output? 04/16 17:49 05/03 07:00 05/02 07:00 05/01 07:00 04/30 07:00 ?? 05/03 17:56 05/03 17:56 05/03 06:59 05/02 06:59 05/01 06:59 Intake ?21241.2 ? 1440 ? 1560 ?480 ?700 Output ?78370 ? 1700 ? 3800 ? 2400 ? 1900 Net Total ? -12287.8 ? -260 ?-2240 ?-1920 ?-1200 ? Urine Count ? 25 ?4 ?1 ?1 ?1 ? Physical Exam Constitutional: Alert, in no distress, Mental Status: Oriented x3 Head: Normocephalic. Eyes: Extraocular muscles intact. Ear, Nose and Throat: Oropharynx clear, mucous membranes moist. Ears and nose without masses, lesions or deformities. Respiratory: diminished breath sounds bilaterally, mild rhonchi at bases, cotninues to have an improving exam Cardiovascular: S1 S2 regular. no murmurs Gastrointestinal: Abdomen soft, non-tender, distended. Normal bowel sounds. Neurologic:No focal neurological deficits. Moves all extremities spontaneously.? Musculoskeletal: bilateral lower extremity nonpitting edema, CVI Psychiatric: appropriate affect and mood _ Inpatient Medications Medications (38) Active SCHEDULED: (22) Albuterol 90mcg/Inhalation Inhaler HFA (albuterol CFC free 90 mcg/inh inhalation aerosol) ??180 mcg 2 puffs, Inhalation, Every 6 hours Amlodipine 10 mg Tablet (AmLODipine Tablet) ??10 mg, By Mouth, Daily Aspirin 81 mg EC Tablet (aspirin 81 mg oral delayed release tablet) ??81 mg, By Mouth, Daily Atorvastatin 80 mg Tablet (atorvastatin 80 mg oral tablet) ??80 mg, By Mouth, Daily buprenorphine-naloxone 8 mg-2 mg Film (Suboxone 8 mg-2 mg Sublingual Film) ??1 film, Sublingual, 3 times a day Dexamethasone 0.5 mg Tablet (dexamethasone 0.5 mg oral tablet) ??0.75 mg, By Mouth, Daily Dexamethasone 4 mg Tablet (dexamethasone 4 mg oral tablet) ??2 mg, By Mouth, Daily Enoxaparin 40 mg Inj (Enoxaparin Inj) ??40 mg 0.4 mL, Subcutaneous Injection, 2 times a day Fluoxetine 20 mg Capsule (PROzac 20 mg oral capsule) ??60 mg, By Mouth, Daily Gabapentin 300 mg Capsule (gabapentin 300 mg oral capsule) ??600 mg, By Mouth, Every 8 hours Insulin Glargine 100 units/mL Inj (Lantus Inj) ??28 units 0.28 mL, Subcutaneous Injection, Daily in AM Insulin Glargine 100 units/mL Inj (Lantus Inj) ??36 units 0.36 mL, Subcutaneous Injection, Daily at bedtime Insulin Lispro 100 units/mL Inj (3mL) (Humalog Sliding Scale) ??20-40 units, Subcutaneous Injection,3 times a day before meals Levothyroxine 75 mcg Tablet (levothyroxine 0.075 mg oral tablet) ??75 mcg, By Mouth, Daily Loratadine 10 mg Tablet (loratadine 10 mg oral tablet) ??10 mg, By Mouth, Daily NaCl 0.9% Flush 3ml (NaCL 0.9% Flush) ??3 mL, IV Push, Every 8 hours Pantoprazole 20 mg EC Tablet (pantoprazole 20 mg oral delayed release tablet) ??20 mg, By Mouth, Daily Polyethylene Glycol 17 Gm Powder (MiraLax Powder) ??17 Gm 1 pack/packet, By Mouth, 2 times a day Senna 8.6 mg / Docusate 50 mg tablet (Docusate/Senna Tablet) ??2 tablet, By Mouth, 2 times a day Spiriva Respimat 2.5 mcg Inhaler (Spiriva Respimat Inhaler) ??2 puffs, Inhalation, Daily Thiamine 100 mg Tablet (thiamine 100 mg oral tablet) ??100 mg, By Mouth, Daily Vitamin D 1000 IU Tablet (cholecalciferol 1000 intl units oral tablet) ??4,000 International_Units, By Mouth, Daily CONTINUOUS: (0) PRN: (16) Acetaminophen 325 mg Tablet (Acetaminophen Tablet) ??650 mg, By Mouth, Every 4 hours Albuterol 90mcg/Inhalation Inhaler HFA (albuterol CFC free 90 mcg/inh inhalation aerosol) ??180 mcg 2 puffs, Inhalation, Every 2 hours Bisacodyl 10 mg Suppository (Bisacodyl Supp) ??10 mg 1 supp, Rectally, Daily Clonazepam 0.5 mg Tablet (clonazePAM 0.5 mg oral tablet) ??0.5 mg, By Mouth, Daily Dextromethorphan-Guaifenesin 20 mg-200 mg/10 mL Liqu UD (Robitussin DM Liquid) ??10 mL, By Mouth, Every 4 hours Dextrose Inj Syringe (Dextrose 50% Inj Syringe (25Gm)) ??12.5 Gm, IV Push Slowly, Every 20 minutes Dextrose Inj Syringe (Dextrose 50% Inj Syringe (25Gm)) ??25 Gm, IV Push Slowly, Every 15 minutes Glucagon 1 mg Inj (Glucagon Inj) ??1 mg, Intramuscular, Once Glucose 40% Gel (15 Gm) (Glucose Gel) ??15 Gm, By Mouth, Every 20 minutes Glucose 40% Gel (15 Gm) (Glucose Gel) ??30 Gm, By Mouth, Every 20 minutes HydrOXYzine HCL 10mg Tablet (HydrOXYzine HCL Tablet) ??10 mg, By Mouth, 3 times a day Melatonin 3 mg Tablet (Melatonin Tablet) ??3 mg, By Mouth, Daily at bedtime NaCl 0.9% Flush 3ml (NaCL 0.9% Flush) ??3 mL, IV Push, Every 8 hours Polyvinyl Alcohol 1.4% Opthalmic Solution/Artificial Tears (Artificial Tears 1.4%) ??2 drops, Eyes, Both, Every 4 hours Simethicone 80 mg Chewable Tablet (Simethicone Tablet) ??80 mg, Chew, 3 times a day Trazodone 50 mg Tablet (traZODone 50 mg oral tablet) ??100 mg, By Mouth, Daily at bedtime ? Results Recent Labs CHEM GENERAL Sodium 134 mmol/L ()?? 05/03/2022 02:18 Potassium 4.9 mmol/L ()?? 05/03/2022 02:18 Chloride 101 mmol/L ()?? 05/03/2022 02:18 Bicarbonate Level 29 mmol/L ()?? 05/03/2022 02:18 Anion Gap 4 ()?? 05/03/2022 02:18 Glucose Level 224 mg/dL (High)?? 05/03/2022 02:18 Glucose, POC 276 mg/dL (High)?? 05/03/2022 16:32 BUN 34 mg/dL (High)?? 05/03/2022 02:18 Creatinine-Blood 1.3 mg/dL (High)?? 05/03/2022 02:18 Estimated GFR Creatinine 49 ML/MIN/1.73 M2 ()?? 05/03/2022 02:18 Calcium 8.2 mg/dL (Low)?? 05/03/2022 02:18 ? Abnormal Labs ?? CHEM GENERAL ??BUN ??34 mg/dL (High) ??05/03/2022 02:18 ??Calcium ??8.2 mg/dL (Low) ??05/03/2022 02:18 ??Creatinine-Blood ??1.3 mg/dL (High) ??05/03/2022 02:18 ??Estimated GFR Creatinine ??49 ML/MIN/1.73 M2 () ??05/03/2022 02:18 ??Glucose Level ??224 mg/dL (High) ??05/03/2022 02:18 ??Glucose, POC ??276 mg/dL (High) ??05/03/2022 16:32 ? Note: Critical results are displayed in red. ? Assessment/Plan Betzaida Hernandez is a 51 -year-old female with history of chronic respiratory failure, type 2 diabetes, COPD, Hypothyroidism, Narcotic dependance on Suboxone with recent hospitalization at [facility] for bilateral lower extremity swelling and Covid on 04/06 (s/p 10 day course of dexamethasone)??who presented to [facility] on 04/16??with??acute??hypoxic respiratory failure 2/2 Covid PNA and ARDS ultimately requiring ICU admission and BIPAP therapy, now de-escalated to 2 L NC and s/p 20 day course of dexamethasone treatment. Further treatment with baricitinib continuing. ??Pulm rehab assessment complete.?Patient medically stable and awaiting placement at rehab ? Acute on chronic hypoxic respiratory failure with hypercarbia ARDS secondary to COVID-pneumonia COPD, not on oxygen at home COVID-19 PNA CXR: Diffusely increased interstitial and airspace density in both lungs. The differential includes pulmonary edema as well as multifocal pneumonia. CT Chest: Extensive diffuse groundglass and consolidative airspace opacities appear increasing in the interval compared to previous portable chest x-ray. No effusions or pneumothorax is seen. Ectatic ascending thoracic aorta measuring up to 4.2 cm. There is mediastinal adenopathy measuring up to 1.7 cm in the subcarinal region. Heart appears enlarged. brief MICU admission, not intubated patient initially required BIPAP, now on NC completed 20 days of dexamethasone 6 mg daily (04/07-04/26)??and 14 days of baricitinib and off??isolation Seen by??pulm rehab ECHO 05/01 - normal LVEF PT recommended rehab ?? Plan ??-??Supplemental O2 for goal??SpO2 88-92% ??- Spiriva and albuterol daily?- taper steroids: 4 days of decadron 4mg (04/27-04/30)?? then 4 days of decadron 2 mg (05/01-05/04)then 4 days of decadron 0.75mg (05/05 - 05/08) ??- Aspirin 81 mg daily, atorvastatin 80 mg daily ??- Assess fluid status daily and consider resuming furosemide PRN (not a home med) ??- PT consult ? #Uncontrolled type 2 diabetes worsening hyperglycemia secondary to steroid therapy, currently tapering ?? Plan: - BIDS consulted, recs appreciated -??Lanus 20??units AM and 36 in PM - SSI lispro ??20:100+4:50 - Gabapentin 600 mg every 8 hours for neuropathy - for snacks: carb ratio is 1 unit of insulin for every 5 g of carb - f/u OP with BIDS ? #RADHIKA on CKD, resolved #Hyperkalemia Cre baseline 1.4 CKD likely 2/2 diabetic nephropathy - patient with multiple medications that should be lowering serum K. hyperkalemia likely 2/2 RADHIKA vs osmotic shifts due to hyperglycemia. labs are not indicative of acidosis, no indication of tissue catabolism, red cell lysis, or hypo/hyperthermia ?? plan: - Monitor UoP, creatinine, lytes - replete lytes PRN - consider OP addition of LISA-I or ARB ?? #Depression #Anxiety Mass[place] with gaps in clonazepam between November - Mar however, patient was living in [facility] ER at least from Jan - April. I called the facility and they reported that her meds while living there included clonazepam 0.5mg QD. Will continue Clonazepam for anxiety Plan: ??- Fluoxetine 60 mg daily ??- Continue trazodone??as needed for??and hydroxyzine. ??- Continue Clonazepam 0.5mg QD PRN for anxiety ?? Chronic Stable Issues: #HLD: Atorvastatin 80 mg #HTN:??Increase to amlodipine 10mg starting 04/30/2022 #Substance use disorder: contnue suboxone # Hypothyroidism, continue Levothyroxine 75 mcg daily # GERD, on pantoprazole 20 mg daily ? Diet: Diabetic Carb counting DVT prophylaxis, continue??enoxaparin 40 mg 2 times a day OMN:??placement, hyperglycemia ? Safia Stark MD, MPH Medicine Pediatrics Resident PGY-2. P. [id number] Patient??and plan discussed with attending physician, ??Amor Gutierrez MD ? Brenda Chinchilla MD: PERFORM Event Display: Progress Note Hospital Authored Date: Attending Attestation:??I have seen and examined this patient on date of service. ??I have discussedthe case and its management with the resident and agree with the findings and plan as documented in the resident???s note. Portable XR Chest Views SPMARY martinez S: Saeed Peters MD: VERIFY Event Display: Result: Authored Date: Chest Portable Reason: Shortness of Breath; Clinical Question(s): ARDS COMPARISON: 04/16/2022 FINDINGS: Extensive bilateral lung disease is unchanged IMPRESSION: No change WSN: [id number] Ordering Physician: Fartun Pandey Dictated By: Saeed Taylor MD Dictated Date/Time: 04/19/22 8:15 am Reviewed By: Saeed Taylor MD Signed By: Saeed Taylor MD Signed Date/Time: 04/19/22 8:15 am Transcribed By: NAIF Transcribed Date/Time: 04/19/22 8:14 [facility]: Carlos Head MD VERIFY Event Display: Result: Authored Date: [id number] Chest Portable AP upright at 4:18 PM Hx of Present Illness: see level 1 sheet; Reason: Cough, hypoxia; Clinical Question(s): Pneumonia COMPARISON: Multiple priors, the most recent 12/18/2011 FINDINGS: LINES AND TUBES: None. LUNGS AND PLEURA: There is diffusely increased interstitial and airspace density in both lungs. No pleural effusion. No pneumothorax. HEART, MEDIASTINUM AND CORY: Heart is normal in size. Normal mediastinal and hilar contour. BONES AND SOFT TISSUES: No acute abnormality. IMPRESSION: Diffusely increased interstitial and airspace density in both lungs. The differential includes pulmonary edema as well as multifocal pneumonia. WSN: [id number] Ordering Physician: Jesus Stevens Dictated By: Saeed Pulido MD Dictated Date/Time: 04/16/22 4:52 pm Reviewed By: Saeed Pulido MD Signed By: Saeed Pulido MD Signed Date/Time: 04/16/22 4:52 pm Transcribed By: NAIF Transcribed Date/Time: 04/16/22 4:[address] Chest WO contrast BHSPowerscribe , CIS S: TRANSCRIBE hJon Hart MD: VERIFY Event Display: Result: Authored Date: [id number] CT Chest W/O Contrast INDICATION/CLINICAL QUESTION: Atelectasis; Clinical Question(s): Progression Regression; ARDS; COMPARISON: Chest x-ray 04/16/2022. TECHNIQUE: Helical CT scan of the chest without IV contrast, formatted in 3 planes. Weight-based protocol was performed using automatic exposure control. CTDIvol Body: 23.90 mGy, DLP Body: 817 mGy*cm. 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 TRACHEA AND MAIN BRONCHI: Patent without evidence of tracheal or endobronchial lesion. LUNGS AND PLEURA: Extensive diffuse groundglass and consolidative airspace opacities appear increasing in the interval compared to previous portable chest x-ray. No effusions or pneumothorax is seen. AORTA: Ectatic ascending thoracic aorta measuring up to 4.2 cm. MEDIASTINUM and CORY: There is mediastinal adenopathy measuring up to 1.7 cm in the subcarinal region. Heart appears enlarged. No pericardial effusion. No esophageal abnormalities. CHEST WALL SOFT TISSUES: Obese. DIAPHRAGM AND UPPER ABDOMEN: Partially included spleen is upper limits of normal. BONES: No acute abnormalities, no focal osseous lesions. There is severe osteoarthritis in the right shoulder. Mild degenerative changes involving the included spine. IMPRESSION: 1. Worsening severe diffuse airspace opacities. 2. The heart is enlarged. 3. No effusions. WSN: [id number] Ordering Physician: Mamadou Lopez Dictated By: Jhon Hart MD Dictated Date/Time: 04/17/22 1:17 pm Reviewed By: Jhon Hart MD Signed By: Jhon Hart MD Signed Date/Time: 04/17/22 1:17 pm Transcribed By: NAIF Transcribed Date/Time: 04/17/22 1:12 pm Patient Care team information Care Team PersonnelName: Elizabeth Youngblood RN Position: [facility] RN Member Role: Primary Care Nurse Name: Samir Beverly RN Position: [facility] RN Supv Member Role: Primary Care Nurse Name: Sigrid López RN Position: [facility] RN Member Role: Primary Care Nurse Name: Torres Benoit RN Position: [facility] RN Member Role: Primary Care Nurse Name: Celia Mccallum RN Position: [facility] RN Member Role: Primary Care Nurse Name: Caity Feliciano RN Position: [facility] RN Member Role: Primary Care Nurse Name: Elvira Gonzáles RN Position: [facility] RN Member Role: Primary Care Nurse Name: Shanita Dawn RN Position: [facility] RN Member Role: Primary Care Nurse Name: Brenna Figueroa MD Position: [facility] General Pediatrics MD Member Role: PCP Address: Address: [address] [place] [id number] Name: Tej Walden Position: [facility] RN Member Role: Primary Care Nurse Name: Elizabeth Renee RN Position: [facility] RN Member Role: Primary Care Nurse Name: Kim Freedman RN Position: [facility] RN Member Role: Primary Care Nurse Name: Vilma Huff RN Position: [facility] RN Member Role: Primary Care Nurse Name: Genesis Dubon RN Position: S RN Member Role: Primary Care Nurse Name: Safia Johnson RN Position: [facility] PCO w/OE and EZ Script Member Role: Primary Care Nurse Name: Sarah Johnson RN Position: [facility] RN Member Role: Primary Care Nurse Name: *Xi BROCK Attending Position: [facility] ED Medicine MD Name: Carla Sexton Position: [facility] ED OA Charge Member Role: ED Associate Name: Abigail Kohli RN Position: [facility] ED RN W/OE and Tasks Member Role: Patient Care Provider Care Team Related PersonsName: DEDRICK VELASQUEZGO Address: home [address] [place] [address] [place] [address] Name: IRAIDA GRULLON Name: EFRAÍN GRULLON Address: home [address] [facility] Name: JOLANTA OSMAN Address: home [id number]
--- OUTSIDE RECORDS SUMMARY | 2022-05-26 16:43 | XMS_ITS | Continuity of Care Document ---
:1970 Author Organization [facility] Adult Address [address] [place] [address]- Care Team Providers Name Role Phone Ray Cox NP Primary Care Physician Encounter [facility] Date(s): 09/12/19 - 09/19/19 [facility] Adult [address] [place] [address]- [facility] Attending Physician: Ray Cox NP Allergies, Adverse Reactions, [...] 23-valent vaccine3 11/22/10 Given 1Result Comment: [facility] [phone] Comment: [10/01/2015] per [id number] Comment: vis given Medications albuterol CFC free 90 mcg/inh inhalation aerosol 2, puffs, Inhalation, Every 4 hours, PRN, # 18 Gm, Refills 0, Tot. Refills 0, Maintenance, 06/10/19 9:01:00 EST, Aerosol, Route to Pharmacy Electronically, [id number], [facility] - , 165, cm, 06/05/19 13... Start Date: 06/10/19 Stop Date: 07/10/19 Status: Orderedaspirin 81 mg oral delayed release tablet 81 mg, 1, tablet, By Mouth, Daily, do not crush or chew, # 30 tablet, Refills 11, Tot. Refills 11, Maintenance, 08/13/19 11:18:00 EDT, Route to Pharmacy Electronically, [facility] -, 165, cm, 06/05/19 13:45:00 [...] RESTS. DX UNSTEADY GAIT, LENGTH OF NEED:L[place]ETIME [place] [id number], 08/04/19 15:18:00 EST, Compound Start Date: 08/04/19 [...] 09/04/19 14:45:00 EDT, Route to Pharmacy Electronically, [facility], 165, cm, 06/05/19 13:45:00 EST, Height Start Date: 09/04/19 Status: OrderedHumalog Kwik Pen 100 units/mL subcutaneous injection See Instructions, inject up to 36 units 3 times daily with meals. for [id number], # 30 mL, 0 Refills, Maintenance, 04/01/19 11:21:31 EDT Start Date: 04/01/19 Status: Orderedhydrochlorothiazide-lisinopril 25 mg-20 mg oral tablet 1 tablet, By Mouth, Daily, # 90 tablet, 3 Refills, Maintenance, 06/05/19 14:24:00 EST, Tablet, [facility] - , 1 tablet By [...] mL, 2 Refills, Maintenance, 06/05/19 14:21:00 EST, [facility] [place], 165, cm, 06/05/19 [...] 06/17/19 11:16:00 EST, Route to Pharmacy Electronically, [facility] [place], 165, cm, 06/05/19 13:45:00 EST, Height Start Date: 06/17/19 Stop Date: 12/14/19 Status: Orderedomeprazole 20 mg oral enteric coated capsule 1 capsule = 20 mg, By Mouth, Daily, take 1/2-1 hour before breakfast, # 30 capsule, 6 Refills, Maintenance, 03/21/19 13:55:13 EDT, EC Capsule Start Date: 03/21/19 Status: OrderedPen [place], 31 G x 8 mm BD Ultra [...] Unsteady gait(Confirmed) Active Uses walker(Confirmed) Active 1iin [id number] the Suboxone program Social History Social History Type Response Smoking Status Current every day smoker; Ty pe: Cigarettes; Other: 10 a day; entered on: 11/25/15 Sex Female
--- OUTSIDE RECORDS SUMMARY | 2022-05-26 16:43 | XMS_ITS | Continuity of Care Document ---
:1970 Author Organization [facility] Adult Address [address] [place] [address]- Care Team Providers Name Role Phone Brooke PRE K TEACHER, Ray Mcleod Primary Care Physician [place] [facility] Date(s): 09/12/21 - 10/12/21 [facility] Adult [address] [place] [id number]- Allergies, Adverse Reactions, Alerts Substance Reaction Severity [...] inactive(oldterm) 06/21/09 Recorde d 1Result Comment: [facility]: [id number] Comment: [facility] [phone] Comment: [10/01/2015] per [id number] Comment: vis given Medications amLODIPine 5 mg oral tablet TAKE 1 TABLET BY MOUTH EVERY DAY Start Date: 09/15/21 Status: OrderedamLODIPine 5 mg oral tablet TAKE 1 TABLET BY MOUTH EVERY DAY Start Date: 09/15/21 Status: OrderedAspirin Low Dose 81 mg oral delayed release tablet 1 tablet, By Mouth, Daily, no CRUSH OR CHEW, # 30 tablet, 11 Refills, [facility], 158, cm, 04/29/21 11:38:00 EST, Height, 161, kg, 11/10/19 18:44:00 EDT, Dry Weight Start Date: 07/11/21 Status: Orderedatorvastatin 80 mg oral tablet 1 tablet, By Mouth, Daily, NEEDS LABS BEFORE NEXT REFILL, # 90 tablet, 1 Refills, Maintenance, 06/29/21 7:35:00 EST, [facility], 158, cm, 04/29/21 11:38:00 EST, Height, [...] EST, Supply Start Date: 07/26/20 Status: OrderedFreeStyle [place]ite kit FreeStyle [place] Lite kit, See Instructions, # 1 kit, [...] 5 Refills, Maintenance, 09/01/21 13:44:00 EDT, Tablet, [facility], Partial fill upon patient request if [...] mL, 5 Refills, Maintenance, 08/31/21 13:03:00 EDT, [facility], 158, cm, 08/05/21 13:35:00 EST, Height, [...] tablet, 1 Refills, Maintenance, 08/31/21 15:46:00 EDT, [facility], 90, 1 tablet By Mouth Daily, [...] 05/19/21 11:48:00 EST, Route to Pharmacy Electronically, [facility]/pharmacy #[id number], 158, cm... Start Date: 05/19/21 Stop Date: 11/15/21 Status: OrderedLantus Solostar Pen 100 units/mL subcutaneous solution See Instructions, Take 54 units twice daily. E11.65, # 45 mL, 5 Refills, Maintenance, 03/21/21 19:37:00 EDT, [facility], 158, cm, 10/08/20 11:23:00 EDT, Height, 161, kg, 11/10/19 18:44:00 EDT, Dry Weight Start Date: 03/21/21 Status: Orderedlevothyroxine 0.2 mg oral tablet 1 tablet, By Mouth, Daily, # 90 tablet, 1 Refills, Maintenance, 09/27/21 18:47:00 EDT, [facility], 158, cm, 09/15/21 16:09:00 EDT, Height, 161, kg, 11/10/19 18:44:00 EDT, Dry Weight Start Date: 09/27/21 Stop Date: 03/26/22 Status: Orderedloratadine 10 mg oral tablet 1, tablet, By Mouth, Daily, # 90 tablet, Refills 1, Route to Pharmacy Electronically, [facility], 158, cm, 04/29/21 11:38:00 EST, Height, 161, kg, 11/10/19 18:44:00 EDT, Dry Weight Start Date: 05/13/21 Status: Orderedomeprazole 20 mg oral enteric coated capsule 1 capsule = 20 mg, By Mouth, 2 times a day, for 90 days, # 180 capsule, 6 Refills, Physician Stop 04/27/23 14:10:00 EST, 08/05/21 14:10:00 EST, [facility], 158, cm, 08/05/21 13:35:00 EST, Height, 161, kg, 11/10/19 18:44:00 EDT, Dry... Start Date: 08/05/21 Stop Date: 04/27/23 Status: Orderedpadded toilet seat padded toilet seat, See Instructions, # 1 each, Refills 0, Tot. Refills 0, Maintenance, dx: buttock sores, 09/19/21 11:23:00 EDT, Supply Start Date: 09/19/21 Status: OrderedPen [place], 31 G x 8 mm BD Ultra [...] Gm, Refills 5, Route to Pharmacy Electronically, [id number], [facility], 158, cm, 04/29/21 11:38:00 EST, Height, [...] Unsteady gait(Confirmed) Active Uses walker(Confirmed) Active 1iin [id number] the Suboxone program Social History Social History Type Response Smoking Status 5-9 cigarettes (between 1/4 to 1/2 pack)/day in last 30 days entered on: 08/05/21 Sex Female
--- OUTSIDE RECORDS SUMMARY | 2022-05-26 16:43 | XMS_ITS | Continuity of Care Document ---
:1970 Author Organization [facility] Address [address] [place] [address]- Care Team Providers Name Role Phone Brooke JAVIER, Ray Mcleod Primary Care Physician Encounter [facility] Date(s): 06/13/19 - 07/16/19 [facility] [address] [place] [address]- [facility] Attending Physician: Ivonne Fontaine MD Admitting Physician: [...] pneumococcal 23-valent vaccine3 11/22/10 Given 1Result Comment: [facility] [phone] Comment: [10/01/2015] per [id number] Comment: vis given Medications albuterol CFC free 90 mcg/inh inhalation aerosol 2, puffs, Inhalation, Every 4 hours, PRN, # 18 Gm, Refills 0, Tot. Refills 0, Maintenance, 06/10/19 9:01:00 EST, Aerosol, Route to Pharmacy Electronically, [id number], [facility] - , 165, cm, 06/05/19 13... Start Date: 06/10/19 Stop Date: 07/10/19 Status: Orderedaspirin 81 mg oral delayed release tablet 81 mg, 1, tablet, By Mouth, Daily, do not crush or chew, # 30 tablet, Refills 11, Tot. Refills 11, Maintenance, 08/01/18 12:28:09 EST, Route to Pharmacy Electronically, [id number], [facility] - Start Date: 08/01/18 Status: Orderedatorvastatin 80 mg oral tablet 1 tablet = 80 mg, By Mouth, Daily, # 90 tablet, 4 Refills, Maintenance, 06/05/19 14:25:00 EST, Tablet, [facility], 165, cm, 06/05/19 13:45:00 EST, Height [...] DX UNSTEADY GAIT, LENGTH OF NEED:LIFETIME [facility] [phone], 06/06/19 9:35:00 EST, Compound Start Date: 06/06/19 [...] 06/10/19 17:33:00 EST, Route to Pharmacy Electronically, [facility] [place], 165, cm, 06/05/19 [...] units 3 times daily with meals. for [id number], # 30 mL, 0 Refills, Maintenance, 04/01/19 11:21:31 EDT Start Date: 04/01/19 Status: Orderedhydrochlorothiazide-lisinopril 25 mg-20 mg oral tablet 1 tablet, By Mouth, Daily, # 90 tablet, 3 Refills, Maintenance, 06/05/19 14:24:00 EST, Tablet, [facility] - , 1 tablet By [...] 07/10/19 17:05:00 EST, Route to Pharmacy Electronically, [facility]... Start Date: 07/10/19 Stop Date: 08/09/19 Status: OrderedLantus Solostar Pen 100 units/mL subcutaneous solution = 90 units, Subcutaneous Injection, Daily at bedtime, keep appointment on 06/13/19 for further refills, # 15 mL, 2 Refills, Maintenance, 06/05/19 14:21:00 EST, [facility] - , 165, cm, 06/05/19 13:45:00 EST, Height Start Date: 06/05/19 Status: Orderedlevothyroxine 0.2 mg oral tablet 1 tablet = 200 mcg, By Mouth, Daily, Labs and appt. needed for future refills, # 90 tablet, 0 Refills, Maintenance, 06/05/19 14:25:00 EST, Tablet, [facility] - , change in dose, 165, cm, 06/05/19 13:45:00 EST, Height Start Date: 06/05/19 Stop Date: 07/05/19 Status: Orderedloratadine 10 mg oral tablet 10 mg, 1, tablet, By Mouth, Daily, # 90 tablet, Refills 1, Tot. Refills 1, Maintenance, 06/17/19 11:16:00 EST, Route to Pharmacy Electronically, [facility] - , 165, cm, 06/05/19 13:45:00 EST, Height Start Date: 06/17/19 Stop Date: 12/14/19 Status: Orderedomeprazole 20 mg oral enteric coated capsule 1 capsule = 20 mg, By Mouth, Daily, take 1/2-1 hour before breakfast, # 30 capsule, 6 Refills, Maintenance, 03/21/19 13:55:13 EDT, EC Capsule Start Date: 03/21/19 Status: OrderedPen [place], 31 G x 8 mm BD Ultra [...] Unsteady gait(Confirmed) Active Uses walker(Confirmed) Active 1iin [id number] the Suboxone program Social History Social History Type Response Smoking Status Current every day smoker; Ty pe: Cigarettes; Other: 10 a day; entered on: 11/25/15 Sex Female
--- OUTSIDE RECORDS SUMMARY | 2022-05-26 16:43 | XMS_ITS | Continuity of Care Document ---
:1970 Author Organization [facility] Adult Address [address] [place] [address]- Care Team Providers Name Role Phone Brooke PEDIATRICIAN/MEDICAL DOCTOR, Ray Mcleod Primary Care Physician [place] [facility] Date(s): 09/20/21 - 10/20/21 [facility] Adult [address] [place] [phone]- Allergies, Adverse Reactions, Alerts Substance Reaction Severity Status amoxicillin Active penicillin hives Persistent Moderate Active metFORMIN Active Invokana Active Januvia Active Latex hives Persistent Moderate Active Immunizations [...] H1N1, inactive(oldterm) 06/21/09 Recorde d 1Result Comment: [facility]: [id number] Comment: [facility] [phone] Comment: [10/01/2015] per [id number] Comment: vis given Medications amLODIPine 5 mg oral tablet TAKE 1 TABLET BY MOUTH EVERY DAY Start Date: 09/15/21 Status: OrderedamLODIPine 5 mg oral tablet 1 tablet = 5 mg, By Mouth, Daily, TAKE 1 TABLET BY MOUTH EVERY DAY, # 90 tablet, 2 Refills, Maintenance, 10/14/21 17:06:00 EDT, Tablet, [facility], Partial fill upon patient requestif the prescription is for a schedule II opioid d... Start Date: 10/14/21 Stop Date: 07/11/22 Status: OrderedAspirin Low Dose 81 mg oral delayed release tablet 1 tablet, By Mouth, Daily, no CRUSH OR CHEW, # 30 tablet, 11 Refills, [facility], 158, cm, 04/29/21 11:38:00 EST, Height, 161, kg, 11/10/19 18:44:00 EDT, Dry Weight Start Date: 07/11/21 Status: Orderedatorvastatin 80 mg oral tablet 1 tablet, By Mouth, Daily, NEEDS LABS BEFORE NEXT REFILL, # 90 tablet, 1 Refills, Maintenance, 06/29/21 7:35:00 EST, [facility], 158, cm, 04/29/21 11:38:00 EST, [...] EST, Supply Start Date: 07/26/20 Status: OrderedFreeStyle [place] Lite kit FreeStyle [place] Lite kit, See Instructions, # 1 kit, [...] 10/14/21 17:05:00 EDT, Route to Pharmacy Electronically, [facility], Par... Start Date: 10/14/21 Stop Date: 11/13/21 Status: Orderedgabapentin 600 mg oral tablet 1 tablet = 600 mg, By Mouth, 3 times a day, # 90 tablet, 5 Refills, Maintenance, 09/01/21 13:44:00 EDT, Tablet, [facility], Partial fill upon patient request [...] 5 Refills, Maintenance, 08/31/21 13:03:00 EDT, [facility], 158, cm, 08/05/21 13:35:00 EST, [...] tablet, 1 Refills, Maintenance, 08/31/21 15:46:00 EDT, [facility], 90, 1 tablet By Mouth [...] 05/19/21 11:48:00 EST, Route to Pharmacy Electronically, [facility]/pharmacy #[id number], 158, cm... Start Date: 05/19/21 Stop Date: 11/15/21 Status: OrderedLantus Solostar Pen 100 units/mL subcutaneous solution See Instructions, Take 54 units twice daily. E11.65, # 45 mL, 5 Refills, Maintenance, 03/21/21 19:37:00 EDT, [facility], 158, cm, 10/08/20 11:23:00 EDT, Height, 161, kg, 11/10/19 18:44:00 EDT, Dry Weight Start Date: 03/21/21 Status: Orderedlevothyroxine 0.2 mg oral tablet 1 tablet, By Mouth, Daily, # 90 tablet, 1 Refills, Maintenance, 09/27/21 18:47:00 EDT, [facility], 158, cm, 09/15/21 16:09:00 EDT, Height, 161, kg, 11/10/19 18:44:00 EDT, Dry Weight Start Date: 09/27/21 Stop Date: 03/26/22 Status: Orderedloratadine 10 mg oral tablet 1, tablet, By Mouth, Daily, # 90 tablet, Refills 1, Route to Pharmacy Electronically, [facility], 158, cm, 04/29/21 11:38:00 EST, Height, 161, kg, 11/10/19 18:44:00 EDT, Dry Weight Start Date: 05/13/21 Status: Orderedomeprazole 20 mg oral enteric coated capsule 1 capsule = 20 mg, By Mouth, 2 times a day, for 90 days, # 180 capsule, 6 Refills, Physician Stop 04/27/23 14:10:00 EST, 08/05/21 14:10:00 EST, [facility], 158, cm, 08/05/21 13:35:00 EST, Height, 161, kg, 11/10/19 18:44:00 EDT, Dry... Start Date: 08/05/21 Stop Date: 04/27/23 Status: Orderedpadded toilet seat padded toilet seat, See Instructions, # 1 each, Refills 0, Tot. Refills 0, Maintenance, dx: buttock sores, 09/19/21 11:23:00 EDT, Supply Start Date: 09/19/21 Status: OrderedPen [place], 31 G x 8 mm BD Ultra [...] Gm, Refills 5, Route to Pharmacy Electronically, [id number], [facility], 158, cm, 04/29/21 11:38:00 EST, [...] Unsteady gait(Confirmed) Active Uses walker(Confirmed) Active 1iin [id number] the Suboxone program Social History Social History Type Response Smoking Status 5-9 cigarettes (between 1/4 to 1/2 pack)/day in last 30 days entered on: 08/05/21 Sex Female
--- OUTSIDE RECORDS SUMMARY | 2022-05-26 16:43 | XMS_ITS | Continuity of Care Document ---
:1970 Author Organization [facility] Adult Address [address] [place] [address]- Care Team Providers Name Role Phone Brooke JAVIER, Ray Mcleod Primary Care Physician Encounter [facility] [place] Date(s): 02/11/20 - 03/12/20 [facility] [address] [place] [id number]- [facility] Allergies, Adverse Reactions, Alerts Substance Reaction Severity [...] vaccine3 11/22/10 Given 1Result Comment: [facility] [phone] Comment: [10/01/2015] per [id number] Comment: vis given Medications albuterol CFC free 90 mcg/inh inhalation aerosol 2, puffs, Inhalation, Every 4 hours, PRN, # 18 Gm, Refills 5, Tot. Refills 5, Maintenance, 01/13/20 11:29:00 EDT, Aerosol, Route to Pharmacy Electronically, [id number], [facility], 158, cm, 11/25/19 17:19:... Start Date: 01/13/20 Stop Date: 07/11/20 Status: Orderedaspirin 81 mg oral delayed release tablet 81 mg, 1, tablet, By Mouth, Daily, do not crush or chew, # 30 tablet, Refills 11, Tot. Refills 11, Maintenance, 08/13/19 11:18:00 EDT, Route to Pharmacy Electronically, [facility], 165, cm, 06/05/19 13:45:00 EST, Height Start Date: 08/13/19 Status: Orderedatorvastatin 80 mg oral tablet 1 tablet = 80 mg, By Mouth, Daily, # 90 tablet, 4 Refills, Maintenance, 06/05/19 14:25:00 EST, Tablet, [facility], 165, cm, 06/05/19 13:45:00 EST, Height Start Date: 06/05/19 Status: OrderedBARIATRIC WHEELCHAIR BARIATRIC WHEELCHAIR, See Instructions, # 1 each, Refills 0, Tot. Refills 0, Maintenance, WITH FOOT RESTS. DX UNSTEADY GAIT, LENGTH OF NEED:LIFETIME [address], 08/04/19 15:18:00 EST, Compound Start Date: 08/04/19 [...] Maintenance, 01/05/2010:50:00 EDT, Route to Pharmacy Electronically, [facility], 158, cm, 11/25/19 17:19:00 EDT, Height, 161, kg, 11/10/19 18:44:00 EDT... Start Date: 01/06/20 Status: OrderedHumalog Kwik Pen 100 units/mL subcutaneous injection See Instructions, Max daily dose 70 units, take per sliding scale from office 3 times daily with meals. E11.65, # 30 mL, 5 Refills, Maintenance, 10/22/19 15:40:00 EDT, [facility], 165, cm, 06/05/19 13:45:00 EST, Height Start Date: 10/22/19 Status: Orderedhydrochlorothiazide-lisinopril 25 mg-20 mg oral tablet 1 tablet, By Mouth, Daily, # 90 tablet, 3 Refills, Maintenance, 06/05/19 14:24:00 EST, Tablet, [facility], 1 tablet By Mouth [...] 01/26/20 15:33:00 EDT, Route to Pharmacy Electronically, [facility] Start Date: 01/26/20 Stop Date: 07/24/20 Status: OrderedLantus Solostar Pen 100 units/mL subcutaneous solution See Instructions, Take 35 units twice daily. E11.65, # 30 mL, 5 Refills, Maintenance, 10/22/19 15:41:00 EDT, [facility], 165, cm, 06/05/19 13:45:00 EST, Height Start Date: 10/22/19 Status: Orderedlevothyroxine 0.2 mg oral tablet 1 tablet = 200 mcg, By Mouth, Daily, # 90 tablet, 1 Refills, Maintenance, 03/02/20 16:38:00 EDT, Tablet, [facility], 158, cm, 11/25/19 17:19:00 EDT, Height, 161, kg, 11/10/19 18:44:00 EDT, Dry Weight Start Date: 03/02/20 Stop Date: 08/29/20 Status: Orderedloratadine 10 mg oral tablet 10 mg, 1, tablet, By Mouth, Daily, # 90 tablet, Refills 1, Tot. Refills 1, Maintenance, 12/09/19 9:24:00 EDT, Route to Pharmacy Electronically, [facility], 158, cm, 11/25/19 17:19:00 EDT, Height, 161, kg, 11/10/19 18:44:00 EDT, Dry... Start Date: 12/09/19 Stop Date: 06/06/20 Status: Orderedomeprazole 20 mg oral enteric coated capsule 1 capsule = 20 mg, By Mouth, Daily, take 1/2-1 hour before breakfast, # 30 capsule, 2 Refills, Maintenance, 01/06/20 9:48:00 EDT, EC Capsule, [facility], 158, cm, 11/25/19 17:19:00 EDT, Height, 161, kg, 11/10/19 18:44:00 EDT, Dry W... Start Date: 01/06/20 Status: OrderedPen [place], 31 G x 8 mm BD Ultra [...] Unsteady gait(Confirmed) Active Uses walker(Confirmed) Active 1iin [id number] the Suboxone program Social History Social History Type Response Smoking Status Current every day smoker; Ty pe: Cigarettes; Other: 10 a day; entered on: 11/25/15 Sex Female
--- OUTSIDE RECORDS SUMMARY | 2022-05-26 16:43 | XMS_ITS | Continuity of Care Document ---
:1970 Author Organization [facility] Address [address] [place] [phone]- Care Team Providers Name Role Phone Brooke ABRASIVE WHEEL MOLDER, Ray Mcleod Primary Care Physician [place] [facility] [place] - 09/25/20 [facility] [address] [place] [id number] Attending Physician: Admkristen, Ananth Admitting Physician: AdmtrAnanth Referring Physician: Admtr, Ar8 Allergies, Adverse Reactions, Alerts Substance Reaction [...] pneumococcal 23-valent vaccine3 11/22/10 Given 1Result Comment: [facility] [phone] Comment: [10/01/2015] per [id number] Comment: vis given Medications albuterol CFC free 90 mcg/inh inhalation aerosol 2, puffs, Inhalation, Every 4 hours, PRN, # 18 Gm, Refills 5, Tot. Refills 5, Maintenance, 07/11/20 11:29:00 EST, Aerosol, Route to Pharmacy Electronically, [id number], [facility], 158, cm, 04/07/20 15:28:... Start Date: 07/11/20 Stop Date: 01/07/21 Status: Orderedaspirin 81 mg oral delayed release tablet 81 mg, 1, tablet, By Mouth, Daily, do not crush or chew, # 30 tablet, Refills 11, Tot. Refills 11, Maintenance, 07/30/20 9:01:00 EST, Route to Pharmacy Electronically, [facility], 158, cm, 04/07/20 15:28:00 EST, Height, 161, kg, 06... Start Date: 07/30/20 Status: Orderedatorvastatin 80 mg oral tablet 1 tablet = 80 mg, By Mouth, Daily, # 90 tablet, 1 Refills, Maintenance, 05/25/20 16:29:00 EST, Tablet, [facility], 158, cm, 04/07/20 15:28:00 EST, [...] Refills, Soft Stop, 04/07/20 16:10:00 EST, Tablet, [facility], 158, cm, 04/07/20 15:28:00 EST, [...] Maintenance, 09/03/2113:19:00 EDT, Route to Pharmacy Electronically, [facility], Resent from 09/02/20, 158, cm, [...] mL, 5 Refills, Maintenance, 08/26/20 16:38:00 EDT, [facility], 158, cm, 04/07/20 15:28:00 EST, Height, 161, kg, 11/10/19 18:44:0... Start Date: 08/26/20 Status: Orderedhydrochlorothiazide-lisinopril 25 mg-20 mg oral tablet 1 tablet, By Mouth, Daily, # 90 tablet, 0 Refills, Maintenance, 08/27/20 9:22:00 EDT, Tablet, [facility], Labs due for additional refills, [...] 09/03/20 15:34:00 EDT, Route to Pharmacy Electronically, [facility] Start Date: 09/03/20 Stop Date: 03/02/21 Status: OrderedLantus Solostar Pen 100 units/mL subcutaneous solution See Instructions, Take 45 units twice daily. E11.65, # 30 mL, 5 Refills, Maintenance, 08/26/20 16:38:00 EDT, [facility], 158, cm, 04/07/20 15:28:00 EST, Height, 161, kg, 11/10/19 18:44:00 EDT, Dry Weight Start Date: 08/26/20 Status: Orderedlevothyroxine 0.2 mg oral tablet 1 tablet = 200 mcg, By Mouth, Daily, # 90 tablet, 1 Refills, Maintenance, 09/02/20 8:56:00 EDT, Tablet, [facility], 158, cm, 04/07/20 15:28:00 EST, Height, 161, kg, 11/10/19 18:44:00 EDT, Dry Weight Start Date: 09/02/20 Stop Date: 03/01/21 Status: Orderedloratadine 10 mg oral tablet 10 mg, 1, tablet, By Mouth, Daily, # 90 tablet, Refills 1, Tot. Refills 1, Maintenance, 06/07/20 7:38:00 EST, Route to Pharmacy Electronically, [facility], 158, cm, 04/07/20 15:28:00 EST, Height, 161, kg, 11/10/19 18:44:00 EDT, Dry... Start Date: 06/07/20 Stop Date: 12/04/20 Status: Orderedomeprazole 20 mg oral enteric coated capsule 1 capsule = 20 mg, By Mouth, Daily, take 1/2-1 hour before breakfast, # 30 capsule, 2 Refills, Maintenance, 07/13/20 16:39:00 EST, EC Capsule, [facility], 158, cm, 04/07/20 15:28:00EST, Height, 161, kg, 11/10/19 18:44:00 EDT, Dry... Start Date: 07/13/20 Status: OrderedPen [place], 31 G x 8 mm BD Ultra [...] Unsteady gait(Confirmed) Active Uses walker(Confirmed) Active 1iin [id number] the Suboxone program Social History Social History Type Response Smoking Status Current every day smoker; Ty pe: Cigarettes; Other: 10 a day; entered on: 11/25/15 Sex Female
--- OUTSIDE RECORDS SUMMARY | 2022-05-26 16:44 | XMS_ITS | Continuity of Care Document ---
:1970 Author Organization [facility] Address [address] [place] [address]- Care Team Providers Name Role Phone Brooke JAVIER, Ray Mcleod Primary Care Physician Encounter [facility] [place] Date(s): 02/11/20 - 03/12/20 [facility] [address] [place] [phone]- [facility] Allergies, Adverse Reactions, Alerts Substance Reaction [...] pneumococcal 23-valent vaccine3 11/22/10 Given 1Result Comment: [facility] [phone] Comment: [10/01/2015] per [id number] Comment: vis given Medications albuterol CFC free 90 mcg/inh inhalation aerosol 2, puffs, Inhalation, Every 4 hours, PRN, # 18 Gm, Refills 5, Tot. Refills 5, Maintenance, 01/13/20 11:29:00 EDT, Aerosol, Route to Pharmacy Electronically, [id number], [facility], 158, cm, 11/25/19 17:19:... Start Date: 01/13/20 Stop Date: 07/11/20 Status: Orderedaspirin 81 mg oral delayed release tablet 81 mg, 1, tablet, By Mouth, Daily, do not crush or chew, # 30 tablet, Refills 11, Tot. Refills 11, Maintenance, 08/13/19 11:18:00 EDT, Route to Pharmacy Electronically, [facility], 165, cm, 06/05/19 13:45:00 EST, Height Start Date: 08/13/19 Status: Orderedatorvastatin 80 mg oral tablet 1 tablet = 80 mg, By Mouth, Daily, # 90 tablet, 4 Refills, Maintenance, 06/05/19 14:25:00 EST, Tablet, [facility], 165, cm, 06/05/19 13:45:00 EST, Height Start Date: 06/05/19 Status: OrderedBARIATRIC WHEELCHAIR BARIATRIC WHEELCHAIR, See Instructions, # 1 each, Refills 0, Tot. Refills 0, Maintenance, WITH FOOT RESTS. DX UNSTEADY GAIT, LENGTH OF NEED:LIFETIME [facility] 79[address], 08/04/19 15:18:00 EST, Compound Start Date: 08/04/19 [...] Maintenance, 01/05/2010:50:00 EDT, Route to Pharmacy Electronically, [facility], 158, cm, 11/25/19 17:19:00 EDT, Height, 161, kg, 11/10/19 18:44:00 EDT... Start Date: 01/06/20 Status: OrderedHumalog Kwik Pen 100 units/mL subcutaneous injection See Instructions, Max daily dose 70 units, take per sliding scale from office 3 times daily with meals. E11.65, # 30 mL, 5 Refills, Maintenance, 10/22/19 15:40:00 EDT, [facility], 165, cm, 06/05/19 13:45:00 EST, Height Start Date: 10/22/19 Status: Orderedhydrochlorothiazide-lisinopril 25 mg-20 mg oral tablet 1 tablet, By Mouth, Daily, # 90 tablet, 3 Refills, Maintenance, 06/05/19 14:24:00 EST, Tablet, [facility], 1 tablet By [...] 01/26/20 15:33:00 EDT, Route to Pharmacy Electronically, [facility] Start Date: 01/26/20 Stop Date: 07/24/20 Status: OrderedLantus Solostar Pen 100 units/mL subcutaneous solution See Instructions, Take 35 units twice daily. E11.65, # 30 mL, 5 Refills, Maintenance, 10/22/19 15:41:00 EDT, [facility], 165, cm, 06/05/19 13:45:00 EST, Height Start Date: 10/22/19 Status: Orderedlevothyroxine 0.2 mg oral tablet 1 tablet = 200 mcg, By Mouth, Daily, # 90 tablet, 1 Refills, Maintenance, 03/02/20 16:38:00 EDT, Tablet, [facility], 158, cm, 11/25/19 17:19:00 EDT, Height, 161, kg, 11/10/19 18:44:00 EDT, Dry Weight Start Date: 03/02/20 Stop Date: 08/29/20 Status: Orderedloratadine 10 mg oral tablet 10 mg, 1, tablet, By Mouth, Daily, # 90 tablet, Refills 1, Tot. Refills 1, Maintenance, 12/09/19 9:24:00 EDT, Route to Pharmacy Electronically, [facility], 158, cm, 11/25/19 17:19:00 EDT, Height, 161, kg, 11/10/19 18:44:00 EDT, Dry... Start Date: 12/09/19 Stop Date: 06/06/20 Status: Orderedomeprazole 20 mg oral enteric coated capsule 1 capsule = 20 mg, By Mouth, Daily, take 1/2-1 hour before breakfast, # 30 capsule, 2 Refills, Maintenance, 01/06/20 9:48:00 EDT, EC Capsule, [facility], 158, cm, 11/25/19 17:19:00 EDT, Height, 161, kg, 11/10/19 18:44:00 EDT, Dry W... Start Date: 01/06/20 Status: OrderedPen [place], 31 G x 8 mm BD Ultra [...] Unsteady gait(Confirmed) Active Uses walker(Confirmed) Active 1iin [id number] the Suboxone program Social History Social History Type Response Smoking Status Current every day smoker; Ty pe: Cigarettes; Other: 10 a day; entered on: 11/25/15 Sex Female
--- OUTSIDE RECORDS SUMMARY | 2022-05-26 16:44 | XMS_ITS | Continuity of Care Document ---
:1970 Author Organization [facility] Address [address] [place] [phone]- Care Team Providers Name Role Phone Ray Cox NP Primary Care Physician Encounter [facility] [place] Date(s): 11/08/20 - 12/08/20 [facility] [address] [place] [phone]- Attending Physician: Kathy Saini MD Admitting Physician: Kathy Saini MD Referring Physician: Ray Cox NP Allergies, [...] pneumococcal 23-valent vaccine3 11/22/10 Given 1Result Comment: [facility] [phone] Comment: [10/01/2015] per [id number] Comment: vis given Medications aspirin 81 mg oral delayed release tablet 81 mg, 1, tablet, By Mouth, Daily, do not crush or chew, # 30 tablet, Refills 11, Tot. Refills 11, Maintenance, 07/30/20 9:01:00 EST, Route to Pharmacy Electronically, [facility], 158, cm, 04/07/20 15:28:00 EST, Height, 161, kg, 06... Start Date: 07/30/20 Status: Orderedatorvastatin 80 mg oral tablet 1 tablet = 80 mg, By Mouth, Daily, # 90 tablet, 1 Refills, Maintenance, 10/08/20 11:38:00 EDT, Tablet, [facility], 158, cm, 10/08/20 11:23:00 EDT, [...] Maintenance, 09/03/2113:19:00 EDT, Route to Pharmacy Electronically, [facility], Resent from 09/02/20, 158, cm, [...] mL, 5 Refills, Maintenance, 08/26/20 16:38:00 EDT, [facility], 158, cm, 04/07/20 15:28:00 EST, Height, 161, kg, 11/10/19 18:44:0... Start Date: 08/26/20 Status: Orderedhydrochlorothiazide-lisinopril 25 mg-20 mg oral tablet 1 tablet, By Mouth, Daily, # 90 tablet, 0 Refills, Maintenance, 12/08/20 9:05:00 EDT, Tablet, [facility] #[id number], 1 tablet By Mouth Daily,x90 days, 158, cm, 10/08/20 11:23:00 EDT, Height, 161, kg, 11/10/19 18:44:00 EDT, Dry Weight Start Date: 12/08/20 Stop Date: 03/08/21 Status: OrderedHydrocortisone 2.5% cream as 1:1 mix [...] 09/03/20 15:34:00 EDT, Route to Pharmacy Electronically, [facility] Start Date: 09/03/20 Stop Date: 03/02/21 Status: OrderedLantus Solostar Pen 100 units/mL subcutaneous solution See Instructions, Take 45 units twice daily. E11.65, # 30 mL, 5 Refills, Maintenance, 08/26/20 16:38:00 EDT, [facility], 158, cm, 04/07/20 15:28:00 EST, Height, 161, kg, 11/10/19 18:44:00 EDT, Dry Weight Start Date: 08/26/20 Status: Orderedlevothyroxine 0.2 mg oral tablet 1 tablet = 200 mcg, By Mouth, Daily, # 90 tablet, 1 Refills, Maintenance, 09/02/20 8:56:00 EDT, Tablet, [facility], 158, cm, 04/07/20 15:28:00 EST, Height, 161, kg, 11/10/19 18:44:00 EDT, Dry Weight Start Date: 09/02/20 Stop Date: 03/01/21 Status: Orderedloratadine 10 mg oral tablet 1, tablet, By Mouth, Daily, # 90 tablet, Refills 1, Tot. Refills 0, Maintenance, 11/21/20 20:30:00 EDT, Route to Pharmacy Electronically, [facility], 158, cm, 10/08/20 11:23:00 EDT,Height, 161, kg, 11/10/19 18:44:00 EDT, Dry Weight Start Date: 11/21/20 Status: Orderedomeprazole 20 mg oral enteric coated capsule 1 capsule = 20 mg, By Mouth, Daily, take 1/2-1 hour before breakfast, # 30 capsule, 5 Refills, Maintenance, 10/19/20 11:46:00 EDT, EC Capsule, [facility], 158, cm, 10/08/20 11:23:00EDT, Height, 161, kg, 11/10/19 18:44:00 EDT, Dry... Start Date: 10/19/20 Status: OrderedPen [place], 31 G x 8 mm BD Ultra [...] Maintenance, 11/29/2109:15:00 EDT, Route to Pharmacy Electronically, [id number], [facility], 158, cm, 10/08/20 11:23:00 EDT,... Start [...] Unsteady gait(Confirmed) Active Uses walker(Confirmed) Active 1iin [id number] the Suboxone program Social History Social History Type Response Smoking Status Current every day smoker; Ty pe: Cigarettes; Other: 10 a day; entered on: 11/25/15 Sex Female
--- OUTSIDE RECORDS SUMMARY | 2022-05-26 16:44 | XMS_ITS | Continuity of Care Document ---
:1970 Author Organization [facility] Address [address] [place] [address]- Care Team Providers Name Role Phone Brooke LIFE SCIENCE TEACHER, Ray Mcleod Primary Care Physician [facility] [place] Date(s): 09/12/21 - 10/12/21 [facility] [address] [place] [phone]- Allergies, Adverse Reactions, Alerts Substance Reaction Severity [...] H1N1, inactive(oldterm) 06/21/09 Recorde d 1Result Comment: [facility]: [id number] Comment: [facility] [phone] Comment: [10/01/2015] per [id number] Comment: vis given Medications amLODIPine 5 mg [...] EST, Supply Start Date: 07/26/20 Status: OrderedFreeStyle Omar Lite kit FreeStyle Omar Lite kit, See Instructions, # 1 kit, [...] 05/19/21 11:48:00 EST, Route to Pharmacy Electronically, [facility]/pharmacy #[id number], 158, cm... Start Date: 05/19/21 [...] tablet, 1 Refills, Maintenance, 09/27/21 18:47:00 EDT, [facility], 158, cm, 09/15/21 16:09:00 EDT, Height, 161, kg, 11/10/19 18:44:00 EDT, Dry Weight Start Date: 09/27/21 Stop Date: 03/26/22 Status: Orderedloratadine 10 mg oral tablet 1, tablet, By Mouth, Daily, # 90 tablet, Refills 1, Route to Pharmacy Electronically, [facility], 158, cm, 04/29/21 11:38:00 EST, Height, [...] EDT, Supply Start Date: 09/19/21 Status: OrderedPen [place], 31 G x 8 mm BD Ultra [...] Gm, Refills 5, Route to Pharmacy Electronically, [id number], [facility], 158, cm, [...] Unsteady gait(Confirmed) Active Uses walker(Confirmed) Active 1iin [id number] the Suboxone program Social History Social History Type Response Smoking Status 5-9 cigarettes (between 1/4 to 1/2 pack)/day in last 30 days entered on: 08/05/21 Sex Female
--- OUTSIDE RECORDS SUMMARY | 2022-05-26 16:44 | XMS_ITS | Continuity of Care Document ---
:1970 Author Organization [facility] Adult Address [address] [place] [phone]- Care Team Providers Name Role Phone Brooke SENIOR CLINICAL DATA MANAGER, Ray Mcleod Primary Care Physician [place] [facility] 08/12/21 [facility] [address] [place] [phone]- Encounter Diagnosis Microalbuminuric diabetic nephropathy (Discharge Diagnosis) - 08/05/21 Microalbuminuria due to type 2 diabetes mellitus (Discharge Diagnosis) - 08/05/21 Hypertension (Discharge Diagnosis) - 08/05/21 Hypothyroidism (Discharge Diagnosis) - 08/05/21 Depression (Discharge Diagnosis) - 08/05/21 GERD (gastroesophageal reflux disease) (Discharge Diagnosis) - 08/05/21 Hyperlipidemia (Discharge Diagnosis) - 08/05/21 Diabetic nephropathy (Discharge Diagnosis) - 08/05/21 Diabetic neuropathy (Discharge Diagnosis) - 08/05/21 Diabetes mellitus type 2 in obese (Discharge Diagnosis) - 08/05/21 COPD (chronic obstructive pulmonary disease) (Discharge Diagnosis) - 08/05/21 Attending Physician: Not on Staff, Attending MD [...] H1N1, inactive(oldterm) 06/21/09 Recorde d 1Result Comment: [facility]: [id number] Comment: [facility] [phone] Comment: [10/01/2015] per [id number] Comment: vis given Medications Aspirin Low Dose 81 mg oral delayed release tablet 1 tablet, By Mouth, Daily, no CRUSH OR CHEW, # 30 tablet, 11 Refills, [facility], 158, cm, 04/29/21 11:38:00 EST, Height, 161, kg, 11/10/19 18:44:00 EDT, Dry Weight Start Date: 07/11/21 Status: Orderedatorvastatin 80 mg oral tablet 1 tablet, By Mouth, Daily, NEEDS LABS BEFORE NEXT REFILL, # 90 tablet, 1 Refills, Maintenance, 06/29/21 7:35:00 EST, [facility], 158, cm, 04/29/21 11:38:00 EST, Height, [...] EST, Supply Start Date: 07/26/20 Status: OrderedFreeStyle [place] Lite kit FreeStyle [place] Lite kit, See Instructions, # 1 kit, [...] 3 times a day, # 90 tablet, 0 Refills, Maintenance, 08/05/21 14:10:00 EST, Tablet, [facility], Partial fill upon patient request if the prescription is for a schedule II opioid drug., 158, cm, 08/05/21... Start Date: 08/05/21 Stop Date: 09/04/21 Status: OrderedHEAVY DUTY WHEELCHAIR WITH FOOT REST [...] mL, 5 Refills, Maintenance, 08/26/20 16:38:00 EDT, [facility], 158, cm, 04/07/20 15:28:00 EST, Height, 161, kg, 11/10/19 18:44:0... Start Date: 08/26/20 Status: Orderedhydrochlorothiazide-lisinopril 25 mg-20 mg oral tablet 1 tablet, By Mouth, Daily, Labs and office visit needed for further refills., # 90 tablet, 0 Refills, Maintenance, 06/04/21 7:54:00 EST, [facility]/pharmacy #[id number], 90, Please ask patient to call office [...] 05/19/21 11:48:00 EST, Route to Pharmacy Electronically, [facility]/pharmacy #[id number], 158, cm... Start Date: 05/19/21 Stop Date: 11/15/21 Status: OrderedLantus Solostar Pen 100 units/mL subcutaneous solution See Instructions, Take 54 units twice daily. E11.65, # 45 mL, 5 Refills, Maintenance, 03/21/21 19:37:00 EDT, [facility], 158, cm, 10/08/20 11:23:00 EDT, Height, 161, kg, 11/10/19 18:44:00 EDT, Dry Weight Start Date: 03/21/21 Status: Orderedlevothyroxine 0.2 mg oral tablet 1 tablet, By Mouth, Daily, # 90 tablet, 0 Refills, Maintenance, 06/29/21 7:35:00 EST, [facility], 158, cm, 04/29/21 11:38:00 EST, Height, 161, kg, 11/10/19 18:44:00 EDT, Dry Weight Start Date: 06/29/21 Stop Date: 09/27/21 Status: Orderedloratadine 10 mg oral tablet 1, tablet, By Mouth, Daily, # 90 tablet, Refills 1, Route to Pharmacy Electronically, [facility], 158, cm, 04/29/21 11:38:00 EST, Height, 161, kg, 11/10/19 18:44:00 EDT, Dry Weight Start Date: 05/13/21 Status: Orderedomeprazole 20 mg oral enteric coated capsule 1 capsule = 20 mg, By Mouth, 2 times a day, for 90 days, # 180 capsule, 6 Refills, Physician Stop 04/27/23 14:10:00 EST, 08/05/21 14:10:00 EST, [facility], 158, cm, 08/05/21 13:35:00 EST, Height, 161, kg, 11/10/19 18:44:00 EDT, Dry... Start Date: 08/05/21 Stop Date: 04/27/23 Status: OrderedPen [place], 31 G x 8 mm BD Ultra [...] Gm, Refills 5, Route to Pharmacy Electronically, [id number], [facility], 158, cm, 04/29/21 11:38:00 EST, Height, [...] Unsteady gait(Confirmed) Active Uses walker(Confirmed) Active 1iin [id number] the Suboxone program Diagnosis Diagnosis Type Effective Health Clinical Informant Dates Status Service Diabetes mellitus type Discharge 08/05/21 2 in obese Diagnosis Diabetic nephropathy Discharge 08/05/21 Diagnosis Diabetic neuropathy Discharge 08/05/21 Diagnosis COPD (chronic Discharge 08/05/21 obstructive pulmonary Diagnosis disease) GERD (gastroesophageal Discharge 08/05/21 reflux disease) Diagnosis Hyperlipidemia Discharge 08/05/21 Diagnosis Depression Discharge 08/05/21 Diagnosis Hypertension Discharge 08/05/21 Diagnosis Hypothyroidism Discharge 08/05/21 Diagnosis Microalbuminuria due Discharge 08/05/21 to type 2 diabetes Diagnosis mellitus Microalbuminuric Discharge 08/05/21 diabetic nephropathy Diagnosis Vital Signs Most recent to oldest [Reference Range]: 1 Height 158 cm (08/05/21 1:35 PM) Weight 141.5 kg (08/05/21 1:35 PM) Oxygen Saturation [94-100 %] 98 % (08/05/21 1:35 PM) Pulse Rate [55-90 bpm] 94 bpm *H* (08/05/21 1:35 PM) Body Mass Index [18.5-24.99] 56.68 *>HHI* (08/05/21 1:35 PM) Blood Pressure [90-138/55-84 mm Hg] 114/74 mm Hg (08/05/21 1:35 PM) Respiratory Rate [16-30 br/min] 18 br/min (08/05/21 1:35 PM) Mode of Delivery (Oxygen) Room air (08/05/21 1:35 PM) Blood pressure sites Arm, right (08/05/21 1:35 PM) Weight Obtained Via Standing scale (08/05/21 1:35 PM) Social History Social History Type Response Smoking Status 5-9 cigarettes (between 1/4 to 1/2 pack)/day in last 30 days entered on: 08/05/21 Sex Female
--- OUTSIDE RECORDS SUMMARY | 2022-05-26 16:44 | XMS_ITS | Continuity of Care Document ---
:1970 Author Organization [facility] Adult Address [address] [place] [address]- Care Team Providers Name Role Phone Brooke SPECK DYER, Ray Mcleod Primary Care Physician [place] [facility] [place]21 [facility] Adult [address] [place] [phone]- Allergies, Adverse Reactions, Alerts Substance Reaction Severity [...] H1N1, inactive(oldterm) 06/21/09 Recorde d 1Result Comment: [facility] [phone] Comment: [10/01/2015] per [id number] Comment: vis given Medications aspirin 81 mg oral delayed release tablet 81 mg, 1, tablet, By Mouth, Daily, do not crush or chew, # 30 tablet, Refills 11, Tot. Refills 11, Maintenance, 07/30/20 9:01:00 EST, Route to Pharmacy Electronically, [facility], 158, cm, 04/07/20 15:28:00 EST, Height, 161, kg, 06... Start Date: 07/30/20 Status: Orderedatorvastatin 80 mg oral tablet 1 tablet, By Mouth, Daily, NEEDS LABS BEFORE NEXT REFILL, # 30 tablet, 0 Refills, Maintenance, 05/13/21 13:25:00 EST, [facility], 158, cm, 04/29/21 11:38:00 EST, Height, 161, kg, 11/10/19 18:44:00 EDT, Dry Weight Start Date: 05/13/21 Stop Date: 06/12/21 Status: OrderedBedpan See Instructions, # 1 each, [...] long(99) Urinary Incontinence (R32) Size 45-58 , 02/22/21 11:37:00 EST, Supply Start Date: 07/26/20 Status: OrderedFreeStyle [place] Lite kit FreeStyle [place] Lite kit, See Instructions, # 1 kit, [...] Maintenance, :11:00 EST, Route to Pharmacy Electronically, [facility]/pharmacy #[id number], Resent from 09/02/20, 158, cm, 10/08/20 11:23:00 [...] mL, 5 Refills, Maintenance, 08/26/20 16:38:00 EDT, [facility], 158, cm, 04/07/20 15:28:00 EST, Height, 161, kg, 11/10/19 18:44:0... Start Date: 08/26/20 Status: Orderedhydrochlorothiazide-lisinopril 25 mg-20 mg oral tablet 1 tablet, By Mouth, Daily, Labs and office visit needed for further refills., # 90 tablet, 0 Refills, Maintenance, 06/04/21 7:54:00 EST, [facility]/pharmacy #[id number], 90, Please ask patient to call [...] 05/19/21 11:48:00 EST, Route to Pharmacy Electronically, [facility]/pharmacy #[id number], 158, cm... Start Date: 05/19/21 Stop Date: 11/15/21 Status: OrderedLantus Solostar Pen 100 units/mL subcutaneous solution See Instructions, Take 54 units twice daily. E11.65, # 45 mL, 5 Refills, Maintenance, 03/21/21 19:37:00 EDT, [facility], 158, cm, 10/08/20 11:23:00 EDT, Height, 161, kg, 11/10/19 18:44:00 EDT, Dry Weight Start Date: 03/21/21 Status: Orderedlevothyroxine 0.2 mg oral tablet 1 tablet, By Mouth, Daily, NEEDS LABS BEFORE NEXT REFILL, # 30 tablet, 0 Refills, Maintenance, 05/13/21 13:24:00 EST, [facility], 158, cm, 04/29/21 11:38:00 EST, Height, 161, kg, 11/10/19 18:44:00 EDT, Dry Weight Start Date: 05/13/21 Stop Date: 06/12/21 Status: Orderedloratadine 10 mg oral tablet 1, tablet, By Mouth, Daily, # 90 tablet, Refills 1, Route to Pharmacy Electronically, [facility], 158, cm, 04/29/21 11:38:00 EST, Height, 161, kg, 11/10/19 18:44:00 EDT, Dry Weight Start Date: 05/13/21 Status: Orderedomeprazole 20 mg oral enteric coated capsule See Instructions, TAKE 1 CAPSULE BY MOUTH EVERY DAY 30 TO 60 MINUTES BEFORE BREAKFAST, # 30 capsule,2 Refills, [facility], 158, cm, 10/08/20 11:23:00 EDT, Height, 161, kg, 11/09/2017:44:00 EDT, Dry Weight Start Date: 04/10/21 Status: OrderedPen [place], 31 G x 8 mm BD Ultra [...] Gm, Refills 5, Route to Pharmacy Electronically, [id number], [facility], 158, cm, 04/29/21 11:38:00 EST, [...] Unsteady gait(Confirmed) Active Uses walker(Confirmed) Active 1iin [id number] the Suboxone program Social History Social History Type Response Smoking Status Current every day smoker; Ty pe: Cigarettes; Other: 10 a day; entered on: 11/25/15 Sex Female
--- OUTSIDE RECORDS SUMMARY | 2022-05-26 16:44 | XMS_ITS | Continuity of Care Document ---
:1970 Author Organization [facility] Address [address] [place] [phone]- Care Team Providers Name Role Phone Brooke COSMETOLOGY INSTRUCTOR, Ray Mcleod Primary Care Physician [place] [facility] [place]s): 09/29/21 - 10/29/21 [facility] [address] [place] [address] Attending Physician: Ananth Herrera Admitting Physician: AdmAnanth [...] H1N1, inactive(oldterm) 06/21/09 Recorde d 1Result Comment: [facility]: [id number] Comment: [facility] [phone] Comment: [10/01/2015] per [id number] Comment: vis given Medications amLODIPine 5 mg oral tablet TAKE 1 TABLET BY MOUTH EVERY DAY Start Date: 09/15/21 Status: OrderedamLODIPine 5 mg oral tablet 1 tablet = 5 mg, By Mouth, Daily, TAKE 1 TABLET BY MOUTH EVERY DAY, # 90 tablet, 2 Refills, Maintenance, 10/14/21 17:06:00 EDT, Tablet, [facility], Partial fill upon patient requestif the prescription is for a schedule II opioid d... Start Date: 10/14/21 Stop Date: 07/11/22 Status: OrderedAspirin Low Dose 81 mg oral delayed release tablet 1 tablet, By Mouth, Daily, no CRUSH OR CHEW, # 30 tablet, 11 Refills, [facility], 158, cm, 04/29/21 11:38:00 EST, Height, 161, kg, 11/10/19 18:44:00 EDT, Dry Weight Start Date: 07/11/21 Status: Orderedatorvastatin 80 mg oral tablet 1 tablet, By Mouth, Daily, NEEDS LABS BEFORE NEXT REFILL, # 90 tablet, 1 Refills, Maintenance, 06/29/21 7:35:00 EST, [facility], 158, cm, 04/29/21 11:38:00 [...] EST, Supply Start Date: 07/26/20 Status: OrderedFreeStyle [place] Lite kit FreeStyle [place] Lite kit, See Instructions, # 1 kit, [...] 10/14/21 17:05:00 EDT, Route to Pharmacy Electronically, [facility], Par... Start Date: 10/14/21 Stop Date: 11/13/21 Status: Orderedgabapentin 600 mg oral tablet 1 tablet = 600 mg, By Mouth, 3 times a day, # 90 tablet, 5 Refills, Maintenance, 09/01/21 13:44:00 EDT, Tablet, [facility], Partial fill upon patient request [...] mL, 5 Refills, Maintenance, 08/31/21 13:03:00 EDT, [facility], 158, cm, 08/05/21 13:35:00 EST, [...] tablet, 1 Refills, Maintenance, 08/31/21 15:46:00 EDT, [facility], 90, 1 tablet By Mouth [...] 05/19/21 11:48:00 EST, Route to Pharmacy Electronically, [facility]/pharmacy #[id number], 158, cm... Start Date: 05/19/21 Stop Date: 11/15/21 Status: OrderedLantus Solostar Pen 100 units/mL subcutaneous solution See Instructions, Take 54 units twice daily. E11.65, # 45 mL, 5 Refills, Maintenance, 03/21/21 19:37:00 EDT, [facility], 158, cm, 10/08/20 11:23:00 EDT, Height, 161, kg, 11/10/19 18:44:00 EDT, Dry Weight Start Date: 03/21/21 Status: Orderedlevothyroxine 0.2 mg oral tablet 1 tablet, By Mouth, Daily, # 90 tablet, 1 Refills, Maintenance, 09/27/21 18:47:00 EDT, [facility], 158, cm, 09/15/21 16:09:00 EDT, Height, 161, kg, 11/10/19 18:44:00 EDT, Dry Weight Start Date: 09/27/21 Stop Date: 03/26/22 Status: Orderedloratadine 10 mg oral tablet 1, tablet, By Mouth, Daily, # 90 tablet, Refills 1, Route to Pharmacy Electronically, [facility], 158, cm, 04/29/21 11:38:00 EST, Height, 161, kg, 11/10/19 18:44:00 EDT, Dry Weight Start Date: 05/13/21 Status: Orderedomeprazole 20 mg oral enteric coated capsule 1 capsule = 20 mg, By Mouth, 2 times a day, for 90 days, # 180 capsule, 6 Refills, Physician Stop 04/27/23 14:10:00 EST, 08/05/21 14:10:00 EST, [facility], 158, cm, 08/05/21 13:35:00 EST, Height, 161, kg, 11/10/19 18:44:00 EDT, Dry... Start Date: 08/05/21 Stop Date: 04/27/23 Status: Orderedpadded toilet seat padded toilet seat, See Instructions, # 1 each, Refills 0, Tot. Refills 0, Maintenance, dx: buttock sores, 09/19/21 11:23:00 EDT, Supply Start Date: 09/19/21 Status: OrderedPen [place], 31 G x 8 mm BD Ultra [...] Gm, Refills 5, Route to Pharmacy Electronically, [id number], [facility], 158, cm, 04/29/21 11:38:00 [...] Unsteady gait(Confirmed) Active Uses walker(Confirmed) Active 1iin [id number] the Suboxone program Social History Social History Type Response Smoking Status 5-9 cigarettes (between 1/4 to 1/2 pack)/day in last 30 days entered on: 08/05/21 Sex Female
--- OUTSIDE RECORDS SUMMARY | 2022-05-26 16:44 | XMS_ITS | Continuity of Care Document ---
:1970 Author Organization [facility] Adult Address [address] [place] [address]- Care Team Providers Name Role Phone Brooke CYBER TRANSPORT SYSTEMS SPECIALIST, Ray Mcleod Primary Care Physician Encounter [facility] [place] Date(s): 01/20/22 - 02/19/22 [facility] Adult [address] [place] [phone]- Attending Physician: Ananth Herrera Admitting Physician: Ananth [...] inactive(oldterm) 06/21/09 Recorde d 1Result Comment: [facility]: [id number] Comment: [facility] [phone] Comment: [10/01/2015] per [id number] Comment: vis given Medications amLODIPine 5 mg oral tablet TAKE 1 TABLET BY MOUTH EVERY DAY Start Date: 09/15/21 Status: OrderedamLODIPine 5 mg oral tablet 1 tablet = 5 mg, By Mouth, Daily, TAKE 1 TABLET BY MOUTH EVERY DAY, # 90 tablet, 2 Refills, Maintenance, 10/14/21 17:06:00 EDT, Tablet, [facility], Partial fill upon patient requestif the prescription is for a schedule II opioid d... Start Date: 10/14/21 Stop Date: 07/11/22 Status: OrderedAspirin Low Dose 81 mg oral delayed release tablet 1 tablet, By Mouth, Daily, no CRUSH OR CHEW, # 30 tablet, 11 Refills, [facility], 158, cm, 04/29/21 11:38:00 EST, Height, 161, kg, 11/10/19 18:44:00 EDT, Dry Weight Start Date: 07/11/21 Status: Orderedatorvastatin 80 mg oral tablet 1 tablet, By Mouth, Daily, # 90 tablet, 1 Refills, Maintenance, 12/16/21 12:20:00 EDT, [facility], 158, cm, 10/14/21 14:09:00 EDT, [...] EST, Supply Start Date: 07/26/20 Status: OrderedFreeStyle [place] Lite kit FreeStyle [place] Lite kit, See Instructions, # 1 kit, [...] 5 Refills, Maintenance, 09/01/21 13:44:00 EDT, Tablet, [facility], Partial fill upon patient request [...] mL, 5 Refills, Maintenance, 08/31/21 13:03:00 EDT, [facility], 158, cm, 08/05/21 13:35:00 EST, [...] tablet, 1 Refills, Maintenance, 08/31/21 15:46:00 EDT, [facility], 90, 1 tablet By Mouth [...] FOOD OR MILK, Route to Pharmacy Electronically, [facility], 158, cm, 10/14/21 14:09:00 EDT, Height Start [...] tablet, 1 Refills, Maintenance, 09/27/21 18:47:00 EDT, [facility], 158, cm, 09/15/21 16:09:00 EDT, Height, 161, kg, 11/10/19 18:44:00 EDT, Dry Weight Start Date: 09/27/21 Stop Date: 03/26/22 Status: Orderedloratadine 10 mg oral tablet 1, tablet, By Mouth, Daily, # 90 tablet, Refills 1, Route to Pharmacy Electronically, [facility], 158, cm, 10/14/21 14:09:00 EDT, Height, 161, kg, 11/10/19 18:44:00 EDT, Dry Weight Start Date: 11/04/21 Status: Orderedomeprazole 20 mg oral enteric coated capsule 1 capsule = 20 mg, By Mouth, 2 times a day, for 90 days, # 180 capsule, 6 Refills, Physician Stop 04/27/23 14:10:00 EST, 08/05/21 14:10:00 EST, [facility], 158, cm, 08/05/21 13:35:00 EST, Height, 161, kg, 11/10/19 18:44:00 EDT, Dry... Start Date: 08/05/21 Stop Date: 04/27/23 Status: Orderedpadded toilet seat padded toilet seat, See Instructions, # 1 each, Refills 0, Tot. Refills 0, Maintenance, dx: buttock sores, 09/19/21 11:23:00 EDT, Supply Start Date: 09/19/21 Status: OrderedPen [place], 31 G x 8 mm BD Ultra [...] Gm, Refills 5, Route to Pharmacy Electronically, [id number], [facility], 158, cm, 04/29/21 11:38:00 [...] Unsteady gait(Confirmed) Active Uses walker(Confirmed) Active 1iin [id number] the Suboxone program Social History Social History Type Response Smoking Status 5-9 cigarettes (between 1/4 to 1/2 pack)/day in last 30 days entered on: 08/05/21 Sex Female Care Team PersonnelName: Rya Cox NP [facility] [address] [place], [place] [address]
--- OUTSIDE RECORDS SUMMARY | 2022-05-26 16:44 | XMS_ITS | Continuity of Care Document ---
:1970 Author Organization [facility] Adult Address [address] [place] [address]- Care Team Providers Name Role Phone Brooke JAVIER, Ray Mcleod Primary Care Physician [place] [facility] [place](s): 11/25/19 - 12/25/19 [facility] Adult [address] [place] [address]- [facility] Attending Physician: Ananth Herrera Admitting Physician: AdmtrAnanth Referring Physician: Admtr, Ar8 [...] 23-valent vaccine3 11/22/10 Given 1Result Comment: [facility] [phone] Comment: [10/01/2015] per [id number] Comment: vis given Medications albuterol CFC free 90 mcg/inh inhalation aerosol 2, puffs, Inhalation, Every 4 hours, PRN, # 18 Gm, Refills 5, Tot. Refills 5, Maintenance, 09/23/19 15:56:00 EDT, Aerosol, Route to Pharmacy Electronically, [id number], [facility], 165, cm, 06/05/19 13:45:... Start Date: 09/23/19 Stop Date: 03/21/20 Status: Orderedaspirin 81 mg oral delayed release tablet 81 mg, 1, tablet, By Mouth, Daily, do not crush or chew, # 30 tablet, Refills 11, Tot. Refills 11, Maintenance, 08/13/19 11:18:00 EDT, Route to Pharmacy Electronically, [facility], 165, cm, 06/05/19 13:45:00 EST, Height Start Date: 08/13/19 Status: Orderedatorvastatin 80 mg oral tablet 1 tablet = 80 mg, By Mouth, Daily, # 90 tablet, 4 Refills, Maintenance, 06/05/19 14:25:00 EST, Tablet, [facility], 165, cm, 06/05/19 13:45:00 EST, Height Start Date: 06/05/19 Status: OrderedBARIATRIC WHEELCHAIR BARIATRIC WHEELCHAIR, See Instructions, # 1 each, Refills 0, Tot. Refills 0, Maintenance, WITH FOOT RESTS. DX UNSTEADY GAIT, LENGTH OF NEED:[place] [id number], 08/04/19 15:18:00 EST, Compound Start Date: 08/04/19 [...] 12/08/19 9:44:00 EDT, Route to Pharmacy Electronically, [facility], 158, cm, 11/25/19 17:19:00 EDT, Height, 161, kg, 11/10/19 18:44... Start Date: 12/08/19 Status: OrderedHumalog Kwik Pen 100 units/mL subcutaneous injection See Instructions, Max daily dose 70 units, take per sliding scale from office 3 times daily with meals. E11.65, # 30 mL, 5 Refills, Maintenance, 10/22/19 15:40:00 EDT, [facility], 165, cm, 06/05/19 13:45:00 EST, Height Start Date: 10/22/19 Status: Orderedhydrochlorothiazide-lisinopril 25 mg-20 mg oral tablet 1 tablet, By Mouth, Daily, # 90 tablet, 3 Refills, Maintenance, 06/05/19 14:24:00 EST, Tablet, [facility], 1 tablet By [...] 08/04/19 14:12:00 EST, Route to Pharmacy Electronically, [facility] Start Date: 08/04/19 Stop Date: 01/31/20 Status: OrderedLantus Solostar Pen 100 units/mL subcutaneous solution See Instructions, Take 35 units twice daily. E11.65, # 30 mL, 5 Refills, Maintenance, 10/22/19 15:41:00 EDT, [facility], 165, cm, 06/05/19 13:45:00 EST, Height Start Date: 10/22/19 Status: Orderedlevothyroxine 0.2 mg oral tablet 1 tablet = 200 mcg, By Mouth, Daily, Labs needed prior to refills 09/04/2019. See 09/03 msg., # 90 tablet, 1 Refills, Maintenance, 09/04/19 16:38:00 EDT, Tablet, [facility], change in dose, 165, cm, 06/05/19 13:45:00 EST, Height Start Date: 09/04/19 Stop Date: 03/02/20 Status: Orderedloratadine 10 mg oral tablet 10 mg, 1, tablet, By Mouth, Daily, # 90 tablet, Refills 1, Tot. Refills 1, Maintenance, 12/09/19 9:24:00 EDT, Route to Pharmacy Electronically, [facility], 158, cm, 11/25/19 17:19:00 EDT, Height, 161, kg, 11/10/19 18:44:00 EDT, Dry... Start Date: 12/09/19 Stop Date: 06/06/20 Status: Orderedomeprazole 20 mg oral enteric coated capsule 1 capsule = 20 mg, By Mouth, Daily, take 1/2-1 hour before breakfast, # 30 capsule, 2 Refills, Maintenance, 10/06/19 14:57:00 EDT, EC Capsule, [facility], 165, cm, 06/05/19 13:45:00EST, Height Start Date: 10/06/19 Status: OrderedPen [place], 31 G x 8 mm BD Ultra [...] Unsteady gait(Confirmed) Active Uses walker(Confirmed) Active 1iin [id number] the Suboxone program Social History Social History Type Response Smoking Status Current every day smoker; Ty pe: Cigarettes; Other: 10 a day; entered on: 11/25/15 Sex Female
--- OUTSIDE RECORDS SUMMARY | 2022-05-26 16:44 | XMS_ITS | Continuity of Care Document ---
:1970 Author Organization [facility] Adult Address [address] [place] [address]- Care Team Providers Name Role Phone Brooke JAVIER, Ray Mcleod Primary Care Physician Encounter [facility] Date(s): 06/10/19 - 06/17/19 [facility] Adult [address] [place] [address]- [facility] Attending Physician: Ray Cox NP [...] 11/22/10 Given 1Result Comment: [facility] [phone] Comment: [10/01/2015] per [id number] Comment: vis given Medications albuterol CFC free 90 mcg/inh inhalation aerosol 2, puffs, Inhalation, Every 4 hours, PRN, # 18 Gm, Refills 0, Tot. Refills 0, Maintenance, 06/10/19 9:01:00 EST, Aerosol, Route to Pharmacy Electronically, [id number], [facility] [place], 165, cm, 06/05/19 13... Start Date: 06/10/19 Stop Date: 07/10/19 Status: Orderedaspirin 81 mg oral delayed release tablet 81 mg, 1, tablet, By Mouth, Daily, do not crush or chew, # 30 tablet, Refills 11, Tot. Refills 11, Maintenance, 08/01/18 12:28:09 EST, Route to Pharmacy Electronically, [id number], [facility] - Start Date: 08/01/18 Status: Orderedatorvastatin 80 mg oral tablet 1 tablet = 80 mg, By Mouth, Daily, # 90 tablet, 4 Refills, Maintenance, 06/05/19 14:25:00 EST, Tablet, [facility] - , 165, cm, 06/05/19 [...] RESTS. DX UNSTEADY GAIT, LENGTH OF NEED:LIFETIME [place] [address], 06/06/19 9:35:00 EST, Compound Start Date: 06/06/19 [...] 06/10/19 17:33:00 EST, Route to Pharmacy Electronically, [facility] [place], 165, cm, 06/05/19 [...] units 3 times daily with meals. for [id number], # 30 mL, 0 Refills, Maintenance, 04/01/19 11:21:31 EDT Start Date: 04/01/19 Status: Orderedhydrochlorothiazide-lisinopril 25 mg-20 mg oral tablet 1 tablet, By Mouth, Daily, # 90 tablet, 3 Refills, Maintenance, 06/05/19 14:24:00 EST, Tablet, [facility] - , 1 tablet By [...] 06/10/19 9:01:00 EST, Route to Pharmacy Electronically, [facility]... Start Date: 06/10/19 Stop Date: 07/10/19 Status: OrderedLantus Solostar Pen 100 units/mL subcutaneous solution = 90 units, Subcutaneous Injection, Daily at bedtime, keep appointment on 06/13/19 for further refills, # 15 mL, 2 Refills, Maintenance, 06/05/19 14:21:00 EST, [facility], 165, cm, 06/05/19 13:45:00 EST, Height Start Date: 06/05/19 Status: Orderedlevothyroxine 0.2 mg oral tablet 1 tablet = 200 mcg, By Mouth, Daily, Labs and appt. needed for future refills, # 90 tablet, 0 Refills, Maintenance, 06/05/19 14:25:00 EST, Tablet, [facility] - , change in dose, 165, cm, 06/05/19 13:45:00 EST, Height Start Date: 06/05/19 Stop Date: 07/05/19 Status: Orderedloratadine 10 mg oral tablet 10 mg, 1, tablet, By Mouth, Daily, # 90 tablet, Refills 1, Tot. Refills 1, Maintenance, 06/17/19 11:16:00 EST, Route to Pharmacy Electronically, [facility] - , 165, cm, 06/05/19 13:45:00 EST, Height Start Date: 06/17/19 Stop Date: 12/14/19 Status: Orderedomeprazole 20 mg oral enteric coated capsule 1 capsule = 20 mg, By Mouth, Daily, take 1/2-1 hour before breakfast, # 30 capsule, 6 Refills, Maintenance, 03/21/19 13:55:13 EDT, EC Capsule Start Date: 03/21/19 Status: OrderedPen [place], 31 G x 8 mm BD Ultra [...] Unsteady gait(Confirmed) Active Uses walker(Confirmed) Active 1iin [id number] the Suboxone program Social History Social History Type Response Smoking Status Current every day smoker; Ty pe: Cigarettes; Other: 10 a day; entered on: 11/25/15 Sex Female
--- OUTSIDE RECORDS SUMMARY | 2022-05-26 16:44 | XMS_ITS | Continuity of Care Document ---
:1970 Author Organization [facility] Address [address] [place] [address]- Care Team Providers Name Role Phone Brooke JAVIER, Ray Mcleod Primary Care Physician Encounter [facility] Date(s): 02/27/20 - 03/28/20 [facility] [address] [place] [address]- [facility] Attending Physician: AdmAnanth peterson Admitting Physician: AdmtrAnanth Referring Physician: Admtr ArLesa Allergies, Adverse Reactions, Alerts Substance Reaction Severity [...] pneumococcal 23-valent vaccine3 11/22/10 Given 1Result Comment: [facility] [id number] Comment: [10/01/2015] per [id number] Comment: vis given Medications albuterol CFC free 90 mcg/inh inhalation aerosol 2, puffs, Inhalation, Every 4 hours, PRN, # 18 Gm, Refills 5, Tot. Refills 5, Maintenance, 01/13/20 11:29:00 EDT, Aerosol, Route to Pharmacy Electronically, [id number], [facility], 158, cm, 11/25/19 17:19:... Start Date: 01/13/20 Stop Date: 07/11/20 Status: Orderedaspirin 81 mg oral delayed release tablet 81 mg, 1, tablet, By Mouth, Daily, do not crush or chew, # 30 tablet, Refills 11, Tot. Refills 11, Maintenance, 08/13/19 11:18:00 EDT, Route to Pharmacy Electronically, [facility] -, 165, cm, 06/05/19 13:45:00 EST, Height Start Date: 08/13/19 Status: Orderedatorvastatin 80 mg oral tablet 1 tablet = 80 mg, By Mouth, Daily, # 90 tablet, 4 Refills, Maintenance, 06/05/19 14:25:00 EST, Tablet, [facility] - , 165, cm, 06/05/19 13:45:00 EST, Height Start Date: 06/05/19 Status: OrderedBARIATRIC WHEELCHAIR BARIATRIC WHEELCHAIR, See Instructions, # 1 each, Refills 0, Tot. Refills 0, Maintenance, WITH FOOT RESTS. DX UNSTEADY GAIT, LENGTH OF NEED:LIFETIME [address], 08/04/19 15:18:00 EST, Compound Start Date: 08/04/19 [...] Maintenance, 01/05/2010:50:00 EDT, Route to Pharmacy Electronically, [facility], 158, cm, 11/25/19 17:19:00 EDT, Height, 161, kg, 11/10/19 18:44:00 EDT... Start Date: 01/06/20 Status: OrderedHumalog Kwik Pen 100 units/mL subcutaneous injection See Instructions, Max daily dose 70 units, take per sliding scale from office 3 times daily with meals. E11.65, # 30 mL, 5 Refills, Maintenance, 10/22/19 15:40:00 EDT, [facility], 165, cm, 06/05/19 13:45:00 EST, Height Start Date: 10/22/19 Status: Orderedhydrochlorothiazide-lisinopril 25 mg-20 mg oral tablet 1 tablet, By Mouth, Daily, # 90 tablet, 3 Refills, Maintenance, 06/05/19 14:24:00 EST, Tablet, [facility] [place], 1 tablet By Mouth [...] 01/26/20 15:33:00 EDT, Route to Pharmacy Electronically, [facility] Start Date: 01/26/20 Stop Date: 07/24/20 Status: OrderedLantus Solostar Pen 100 units/mL subcutaneous solution See Instructions, Take 35 units twice daily. E11.65, # 30 mL, 5 Refills, Maintenance, 10/22/19 15:41:00 EDT, [facility], 165, cm, 06/05/19 13:45:00 EST, Height Start Date: 10/22/19 Status: Orderedlevothyroxine 0.2 mg oral tablet 1 tablet = 200 mcg, By Mouth, Daily, # 90 tablet, 1 Refills, Maintenance, 03/02/20 16:38:00 EDT, Tablet, [facility], 158, cm, 11/25/19 17:19:00 EDT, Height, 161, kg, 11/10/19 18:44:00 EDT, Dry Weight Start Date: 03/02/20 Stop Date: 08/29/20 Status: Orderedloratadine 10 mg oral tablet 10 mg, 1, tablet, By Mouth, Daily, # 90 tablet, Refills 1, Tot. Refills 1, Maintenance, 12/09/19 9:24:00 EDT, Route to Pharmacy Electronically, [facility], 158, cm, 11/25/19 17:19:00 EDT, Height, 161, kg, 11/10/19 18:44:00 EDT, Dry... Start Date: 12/09/19 Stop Date: 06/06/20 Status: Orderedomeprazole 20 mg oral enteric coated capsule 1 capsule = 20 mg, By Mouth, Daily, take 1/2-1 hour before breakfast, # 30 capsule, 2 Refills, Maintenance, 01/06/20 9:48:00 EDT, EC Capsule, [facility], 158, cm, 11/25/19 17:19:00 EDT, Height, 161, kg, 11/10/19 18:44:00 EDT, Dry W... Start Date: 01/06/20 Status: OrderedPen [place], 31 G x 8 mm BD Ultra [...] Unsteady gait(Confirmed) Active Uses walker(Confirmed) Active 1iin [id number] the Suboxone program Social History Social History Type Response Smoking Status Current every day smoker; Ty pe: Cigarettes; Other: 10 a day; entered on: 11/25/15 Sex Female
--- OUTSIDE RECORDS SUMMARY | 2022-05-26 16:44 | XMS_ITS | Continuity of Care Document ---
:1970 Author Organization [facility] Address [address] [place] [phone]- Care Team Providers Name Role Phone Brooke JAVIER, Ray Mcleod Primary Care Physician Encounter [facility] AC[facility] R [id number] Date(s): 04/21/20 - 06/10/20 [facility] [address] [place] [address]- Attending Physician: Ivonne Fontaine MD Admitting Physician: [...] 23-valent vaccine3 11/22/10 Given 1Result Comment: [facility] [phone] Comment: [10/01/2015] per [id number] Comment: vis given Medications albuterol CFC free 90 mcg/inh inhalation aerosol 2, puffs, Inhalation, Every 4 hours, PRN, # 18 Gm, Refills 5, Tot. Refills 5, Maintenance, 01/13/20 11:29:00 EDT, Aerosol, Route to Pharmacy Electronically, [id number], [facility], 158, cm, 11/25/19 17:19:... Start Date: 01/13/20 Stop Date: 07/11/20 Status: Orderedaspirin 81 mg oral delayed release tablet 81 mg, 1, tablet, By Mouth, Daily, do not crush or chew, # 30 tablet, Refills 11, Tot. Refills 11, Maintenance, 08/13/19 11:18:00 EDT, Route to Pharmacy Electronically, [facility], 165, cm, 06/05/19 13:45:00 EST, Height Start Date: 08/13/19 Status: Orderedatorvastatin 80 mg oral tablet 1 tablet = 80 mg, By Mouth, Daily, # 90 tablet, 1 Refills, Maintenance, 05/25/20 16:29:00 EST, Tablet, [facility], 158, cm, 04/07/20 15:28:00 EST, Height, [...] times a day,PRN:for dry skin Start Date: 7/27/18 Status: OrderedclonazePAM 1 mg oral tablet 1 tablet = 1 mg, By Mouth, 3 times a day, 0 Refills, Maintenance, 03/26/17 6:29:08, Tablet Start Date: 03/26/17 Status: Orderedfluconazole 150 mg oral tablet 1 tablet = 150 mg, By Mouth, Once, May repeat after 72 hours, # 2 tablet, 0 Refills, Soft Stop, 04/07/20 16:10:00 EST, Tablet, [facility], 158, cm, 04/07/20 15:28:00 EST, Height, [...] Maintenance, 01/05/2010:50:00 EDT, Route to Pharmacy Electronically, [facility], 158, cm, 11/25/19 17:19:00 EDT, Height, 161, kg, 11/10/19 18:44:00 EDT... Start Date: 01/06/20 Status: OrderedHumalog Kwik Pen 100 units/mL subcutaneous injection See Instructions, Max daily dose 70 units, take per sliding scale from office 3 times daily with meals. E11.65, # 30 mL, 5 Refills, Maintenance, 10/22/19 15:40:00 EDT, [facility], 165, cm, 06/05/19 13:45:00 EST, Height Start Date: 10/22/19 Status: Orderedhydrochlorothiazide-lisinopril 25 mg-20 mg oral tablet 1 tablet, By Mouth, Daily, # 90 tablet, 0 Refills, Maintenance, 05/25/20 16:29:00 EST, Tablet, [facility], 1 tablet By Mouth Daily, 158, [...] 01/26/20 15:33:00 EDT, Route to Pharmacy Electronically, [facility]... Start Date: 01/26/20 Stop Date: 07/24/20 Status: OrderedLantus Solostar Pen 100 units/mL subcutaneous solution See Instructions, Take 35 units twice daily. E11.65, # 30 mL, 5 Refills, Maintenance, 10/22/19 15:41:00 EDT, [facility], 165, cm, 06/05/19 13:45:00 EST, Height Start Date: 10/22/19 Status: Orderedlevothyroxine 0.2 mg oral tablet 1 tablet = 200 mcg, By Mouth, Daily, # 90 tablet, 1 Refills, Maintenance, 03/02/20 16:38:00 EDT, Tablet, [facility], 158, cm, 11/25/19 17:19:00 EDT, Height, 161, kg, 11/10/19 18:44:00 EDT, Dry Weight Start Date: 03/02/20 Stop Date: 08/29/20 Status: Orderedloratadine 10 mg oral tablet 10 mg, 1, tablet, By Mouth, Daily, # 90 tablet, Refills 1, Tot. Refills 1, Maintenance, 06/07/20 7:38:00 EST, Route to Pharmacy Electronically, [facility], 158, cm, 04/07/20 15:28:00 EST, Height, 161, kg, 11/10/19 18:44:00 EDT, Dry... Start Date: 06/07/20 Stop Date: 12/04/20 Status: Orderedomeprazole 20 mg oral enteric coated capsule 1 capsule = 20 mg, By Mouth, Daily, take 1/2-1 hour before breakfast, # 30 capsule, 2 Refills, Maintenance, 04/21/20 10:02:00 EST, EC Capsule, [facility], 158, cm, 04/07/20 15:28:00EST, Height, 161, kg, 11/10/19 18:44:00 EDT, Dry... Start Date: 04/21/20 Status: OrderedPen [place], 31 G x 8 mm BD Ultra [...] Unsteady gait(Confirmed) Active Uses walker(Confirmed) Active 1iin [id number] the Suboxone program Social History Social History Type Response Smoking Status Current every day smoker; Ty pe: Cigarettes; Other: 10 a day; entered on: 11/25/15 Sex Female
--- OUTSIDE RECORDS SUMMARY | 2022-05-26 16:44 | XMS_ITS | Continuity of Care Document ---
:1970 Author Organization [facility] Address [address] [place] [address]- Care Team Providers Name Role Phone Brooke JAVIER, Ray Mcleod Primary Care Physician Encounter [facility] Date(s): 05/23/19 - 07/13/19 [facility] [address] [place] [address] [facility] Attending Physician: Ivonne Fontaine MD Admitting [...] Comment: [facility] [phone] Comment: [10/01/2015] per [id number] Comment: vis given Medications albuterol CFC free 90 mcg/inh inhalation aerosol 2, puffs, Inhalation, Every 4 hours, PRN, # 18 Gm, Refills 0, Tot. Refills 0, Maintenance, 06/10/19 9:01:00 EST, Aerosol, Route to Pharmacy Electronically, [id number], [facility] - , 165, cm, 06/05/19 13... Start Date: 06/10/19 Stop Date: 07/10/19 Status: Orderedaspirin 81 mg oral delayed release tablet 81 mg, 1, tablet, By Mouth, Daily, do not crush or chew, # 30 tablet, Refills 11, Tot. Refills 11, Maintenance, 08/01/18 12:28:09 EST, Route to Pharmacy Electronically, [id number], [facility] Start Date: 08/01/18 Status: Orderedatorvastatin 80 mg oral tablet 1 tablet = 80 mg, By Mouth, Daily, # 90 tablet, 4 Refills, Maintenance, 06/05/19 14:25:00 EST, Tablet, [facility], 165, cm, 06/05/19 13:45:00 EST, Height [...] RESTS. DX UNSTEADY GAIT, LENGTH OF NEED:LIFETIME [address], 06/06/19 9:35:00 EST, Compound Start Date: 06/06/19 [...] 06/10/19 17:33:00 EST, Route to Pharmacy Electronically, [facility] [place], 165, cm, 06/05/19 [...] units 3 times daily with meals. for [id number], # 30 mL, 0 Refills, Maintenance, 04/01/19 11:21:31 EDT Start Date: 04/01/19 Status: Orderedhydrochlorothiazide-lisinopril 25 mg-20 mg oral tablet 1 tablet, By Mouth, Daily, # 90 tablet, 3 Refills, Maintenance, 06/05/19 14:24:00 EST, Tablet, [facility] - , 1 tablet By [...] 07/10/19 17:05:00 EST, Route to Pharmacy Electronically, [facility] Start Date: 07/10/19 Stop Date: 08/09/19 Status: OrderedLantus Solostar Pen 100 units/mL subcutaneous solution = 90 units, Subcutaneous Injection, Daily at bedtime, keep appointment on 06/13/19 for further refills, # 15 mL, 2 Refills, Maintenance, 06/05/19 14:21:00 EST, [facility] - , 165, cm, 06/05/19 13:45:00 EST, Height Start Date: 06/05/19 Status: Orderedlevothyroxine 0.2 mg oral tablet 1 tablet = 200 mcg, By Mouth, Daily, Labs and appt. needed for future refills, # 90 tablet, 0 Refills, Maintenance, 06/05/19 14:25:00 EST, Tablet, [facility] - , change in dose, 165, cm, 06/05/19 13:45:00 EST, Height Start Date: 06/05/19 Stop Date: 07/05/19 Status: Orderedloratadine 10 mg oral tablet 10 mg, 1, tablet, By Mouth, Daily, # 90 tablet, Refills 1, Tot. Refills 1, Maintenance, 06/17/19 11:16:00 EST, Route to Pharmacy Electronically, [facility] - , 165, cm, 06/05/19 13:45:00 EST, Height Start Date: 06/17/19 Stop Date: 12/14/19 Status: Orderedomeprazole 20 mg oral enteric coated capsule 1 capsule = 20 mg, By Mouth, Daily, take 1/2-1 hour before breakfast, # 30 capsule, 6 Refills, Maintenance, 03/21/19 13:55:13 EDT, EC Capsule Start Date: 03/21/19 Status: OrderedPen [place], 31 G x 8 mm BD Ultra [...] Unsteady gait(Confirmed) Active Uses walker(Confirmed) Active 1iin [id number] the Suboxone program Social History Social History Type Response Smoking Status Current every day smoker; Ty pe: Cigarettes; Other: 10 a day; entered on: 11/25/15 Sex Female
--- OUTSIDE RECORDS SUMMARY | 2022-05-26 16:44 | XMS_ITS | Continuity of Care Document ---
:1970 Author Organization [facility] Adult Address [address] [place] [address]- Care Team Providers Name Role Phone Brooke JAVIER, Ray Mcleod Primary Care Physician Encounter [facility] Date(s): 02/11/20 - 03/21/20 [facility] [address] [place] [id number]- [facility] Attending Physician: Nam CRUZ, Yenni Allergies, Adverse [...] pneumococcal 23-valent vaccine3 11/22/10 Given 1Result Comment: [facility] [phone] Comment: [10/01/2015] per [id number] Comment: vis given Medications albuterol CFC free 90 mcg/inh inhalation aerosol 2, puffs, Inhalation, Every 4 hours, PRN, # 18 Gm, Refills 5, Tot. Refills 5, Maintenance, 01/13/20 11:29:00 EDT, Aerosol, Route to Pharmacy Electronically, [id number], [facility], 158, cm, 11/25/19 17:19:... Start Date: 01/13/20 Stop Date: 07/11/20 Status: Orderedaspirin 81 mg oral delayed release tablet 81 mg, 1, tablet, By Mouth, Daily, do not crush or chew, # 30 tablet, Refills 11, Tot. Refills 11, Maintenance, 08/13/19 11:18:00 EDT, Route to Pharmacy Electronically, [facility], 165, cm, 06/05/19 13:45:00 EST, Height Start Date: 08/13/19 Status: Orderedatorvastatin 80 mg oral tablet 1 tablet = 80 mg, By Mouth, Daily, # 90 tablet, 4 Refills, Maintenance, 06/05/19 14:25:00 EST, Tablet, [facility] [place], 165, cm, 06/05/19 13:45:00 EST, Height Start Date: 06/05/19 Status: OrderedBARIATRIC WHEELCHAIR BARIATRIC WHEELCHAIR, See Instructions, # 1 each, Refills 0, Tot. Refills 0, Maintenance, WITH FOOT RESTS. DX UNSTEADY GAIT, LENGTH OF NEED:LIFETIME [place] [address], 08/04/19 15:18:00 EST, Compound Start Date: 08/04/19 [...] Maintenance, 01/05/2010:50:00 EDT, Route to Pharmacy Electronically, [facility], 158, cm, 11/25/19 17:19:00 EDT, Height, 161, kg, 11/10/19 18:44:00 EDT... Start Date: 01/06/20 Status: OrderedHumalog Kwik Pen 100 units/mL subcutaneous injection See Instructions, Max daily dose 70 units, take per sliding scale from office 3 times daily with meals. E11.65, # 30 mL, 5 Refills, Maintenance, 10/22/19 15:40:00 EDT, [facility], 165, cm, 06/05/19 13:45:00 EST, Height Start Date: 10/22/19 Status: Orderedhydrochlorothiazide-lisinopril 25 mg-20 mg oral tablet 1 tablet, By Mouth, Daily, # 90 tablet, 3 Refills, Maintenance, 06/05/19 14:24:00 EST, Tablet, [facility] [place], 1 tablet By [...] 01/26/20 15:33:00 EDT, Route to Pharmacy Electronically, [facility] Start Date: 01/26/20 Stop Date: 07/24/20 Status: OrderedLantus Solostar Pen 100 units/mL subcutaneous solution See Instructions, Take 35 units twice daily. E11.65, # 30 mL, 5 Refills, Maintenance, 10/22/19 15:41:00 EDT, [facility], 165, cm, 06/05/19 13:45:00 EST, Height Start Date: 10/22/19 Status: Orderedlevothyroxine 0.2 mg oral tablet 1 tablet = 200 mcg, By Mouth, Daily, # 90 tablet, 1 Refills, Maintenance, 03/02/20 16:38:00 EDT, Tablet, [facility], 158, cm, 11/25/19 17:19:00 EDT, Height, 161, kg, 11/10/19 18:44:00 EDT, Dry Weight Start Date: 03/02/20 Stop Date: 08/29/20 Status: Orderedloratadine 10 mg oral tablet 10 mg, 1, tablet, By Mouth, Daily, # 90 tablet, Refills 1, Tot. Refills 1, Maintenance, 12/09/19 9:24:00 EDT, Route to Pharmacy Electronically, [facility], 158, cm, 11/25/19 17:19:00 EDT, Height, 161, kg, 11/10/19 18:44:00 EDT, Dry... Start Date: 12/09/19 Stop Date: 06/06/20 Status: Orderedomeprazole 20 mg oral enteric coated capsule 1 capsule = 20 mg, By Mouth, Daily, take 1/2-1 hour before breakfast, # 30 capsule, 2 Refills, Maintenance, 01/06/20 9:48:00 EDT, EC Capsule, [facility], 158, cm, 11/25/19 17:19:00 EDT, Height, 161, kg, 11/10/19 18:44:00 EDT, Dry W... Start Date: 01/06/20 Status: OrderedPen [place], 31 G x 8 mm BD Ultra [...] Unsteady gait(Confirmed) Active Uses walker(Confirmed) Active 1iin [id number] the Suboxone program Social History Social History Type Response Smoking Status Current every day smoker; Ty pe: Cigarettes; Other: 10 a day; entered on: 11/25/15 Sex Female
--- OUTSIDE RECORDS SUMMARY | 2022-05-26 16:44 | XMS_ITS | Continuity of Care Document ---
:1970 Author Organization [facility] Address [address] [place] [address]- Care Team Providers Name Role Phone Brooke MOLD INSPECTOR, Ray Mcleod Primary Care Physician Encounter [facility] [place] Date(s): 05/11/20 - 06/10/20 [facility] [address] [place] [address]- Attending Physician: Ananth Herrera Admitting Physician: AdmAnanth [...] pneumococcal 23-valent vaccine3 11/22/10 Given 1Result Comment: [facility] [phone] Comment: [10/01/2015] per [id number] Comment: vis given Medications albuterol CFC free 90 mcg/inh inhalation aerosol 2, puffs, Inhalation, Every 4 hours, PRN, # 18 Gm, Refills 5, Tot. Refills 5, Maintenance, 01/13/20 11:29:00 EDT, Aerosol, Route to Pharmacy Electronically, [id number], [facility], 158, cm, 11/25/19 17:19:... Start Date: 01/13/20 Stop Date: 2/7/21 Status: Orderedaspirin 81 mg oral delayed release tablet 81 mg, 1, tablet, By Mouth, Daily, do not crush or chew, # 30 tablet, Refills 11, Tot. Refills 11, Maintenance, 08/13/19 11:18:00 EDT, Route to Pharmacy Electronically, [facility], 165, cm, 06/05/19 13:45:00 EST, Height Start Date: 08/13/19 Status: Orderedatorvastatin 80 mg oral tablet 1 tablet = 80 mg, By Mouth, Daily, # 90 tablet, 1 Refills, Maintenance, 05/25/20 16:29:00 EST, Tablet, [facility], 158, cm, 04/07/20 15:28:00 EST, [...] Refills, Soft Stop, 04/07/20 16:10:00 EST, Tablet, [facility], 158, cm, 04/07/20 15:28:00 EST, [...] Maintenance, 01/05/2010:50:00 EDT, Route to Pharmacy Electronically, [facility], 158, cm, 11/25/19 17:19:00 EDT, Height, 161, kg, 11/10/19 18:44:00 EDT... Start Date: 01/06/20 Status: OrderedHumalog Kwik Pen 100 units/mL subcutaneous injection See Instructions, Max daily dose 70 units, take per sliding scale from office 3 times daily with meals. E11.65, # 30 mL, 5 Refills, Maintenance, 10/22/19 15:40:00 EDT, [facility], 165, cm, 06/05/19 13:45:00 EST, Height Start Date: 10/22/19 Status: Orderedhydrochlorothiazide-lisinopril 25 mg-20 mg oral tablet 1 tablet, By Mouth, Daily, # 90 tablet, 0 Refills, Maintenance, 05/25/20 16:29:00 EST, Tablet, [facility], 1 tablet By Mouth Daily, [...] 01/26/20 15:33:00 EDT, Route to Pharmacy Electronically, [facility] Start Date: 01/26/20 Stop Date: 07/24/20 Status: OrderedLantus Solostar Pen 100 units/mL subcutaneous solution See Instructions, Take 35 units twice daily. E11.65, # 30 mL, 5 Refills, Maintenance, 10/22/19 15:41:00 EDT, [facility], 165, cm, 06/05/19 13:45:00 EST, Height Start Date: 10/22/19 Status: Orderedlevothyroxine 0.2 mg oral tablet 1 tablet = 200 mcg, By Mouth, Daily, # 90 tablet, 1 Refills, Maintenance, 03/02/20 16:38:00 EDT, Tablet, [facility], 158, cm, 11/25/19 17:19:00 EDT, Height, 161, kg, 11/10/19 18:44:00 EDT, Dry Weight Start Date: 03/02/20 Stop Date: 08/29/20 Status: Orderedloratadine 10 mg oral tablet 10 mg, 1, tablet, By Mouth, Daily, # 90 tablet, Refills 1, Tot. Refills 1, Maintenance, 06/07/20 7:38:00 EST, Route to Pharmacy Electronically, [facility], 158, cm, 04/07/20 15:28:00 EST, Height, 161, kg, 11/10/19 18:44:00 EDT, Dry... Start Date: 06/07/20 Stop Date: 12/04/20 Status: Orderedomeprazole 20 mg oral enteric coated capsule 1 capsule = 20 mg, By Mouth, Daily, take 1/2-1 hour before breakfast, # 30 capsule, 2 Refills, Maintenance, 04/21/20 10:02:00 EST, EC Capsule, [facility], 158, cm, 04/07/20 15:28:00EST, Height, 161, kg, 11/10/19 18:44:00 EDT, Dry... Start Date: 04/21/20 Status: OrderedPen [place], 31 G x 8 mm BD Ultra [...] Unsteady gait(Confirmed) Active Uses walker(Confirmed) Active 1iin [id number] the Suboxone program Social History Social History Type Response Smoking Status Current every day smoker; Ty pe: Cigarettes; Other: 10 a day; entered on: 11/25/15 Sex Female
--- OUTSIDE RECORDS SUMMARY | 2022-05-26 16:44 | XMS_ITS | Continuity of Care Document ---
:1970 Author Organization [facility] Adult Address [address] [place] [address]- Care Team Providers Name Role Phone Brooke COMMERCIAL GLAZIER, Ray Mcleod Primary Care Physician Encounter [facility] [place] Date(s): 08/24/20 - 09/23/20 [facility] Adult [address] [place] [phone]- [place] Allergies, Adverse Reactions, Alerts Substance Reaction [...] pneumococcal 23-valent vaccine3 11/22/10 Given 1Result Comment: [facility] [phone] Comment: [10/01/2015] per [id number] Comment: vis given Medications albuterol CFC free 90 mcg/inh inhalation aerosol 2, puffs, Inhalation, Every 4 hours, PRN, # 18 Gm, Refills 5, Tot. Refills 5, Maintenance, 07/11/20 11:29:00 EST, Aerosol, Route to Pharmacy Electronically, [id number], [facility], 158, cm, [...] 1 Refills, Maintenance, 05/25/20 16:29:00 EST, Tablet, [facility], 158, [...] Refills, Soft Stop, 04/07/20 16:10:00 EST, Tablet, [facility], 158, [...] EDT, Dry... Start Date: 07/13/20 Status: OrderedPen [place], 31 G x 8 mm BD Ultra [...] Unsteady gait(Confirmed) Active Uses walker(Confirmed) Active 1iin [id number] the Suboxone program Social History Social History Type Response Smoking Status Current every day smoker; Ty pe: Cigarettes; Other: 10 a day; entered on: 11/25/15 Sex Female
[2022-05-26 16:45] LABS: Appearance Urine Turbid; Color Urine Yellow; Glucose Urine UA Negative (Negative); Leukocyte Esterase Urine Large (3+) (Negative); Nitrite Urine Negative (Negative); Specific Gravity - Urine 1.015 (1.005-1.025); UMIC TRIGGER UACC YES; Urine Blood Large (3+) (Negative); Urine Ketones Negative (Negative); Urine Protein 100 (2+) mg/dL (Neg-Trace)
--- OUTSIDE RECORDS SUMMARY | 2022-05-26 16:45 | XMS_ITS | Continuity of Care Document ---
:1970 Author Organization [facility] Adult Address [address] [place] [phone]- Care Team Providers Name Role Phone Brooke JAVIER, Ray Mcleod Primary Care Physician Encounter [facility] [place] Date(s): 04/21/20 - 05/21/20 [facility] [address] [place] [address]- Attending Physician: Ananth Herrera Admitting Physician: AdmAnanth [...] pneumococcal 23-valent vaccine3 11/22/10 Given 1Result Comment: [facility] [phone] Comment: [10/01/2015] per [id number] Comment: vis given Medications albuterol CFC free 90 mcg/inh inhalation aerosol 2, puffs, Inhalation, Every 4 hours, PRN, # 18 Gm, Refills 5, Tot. Refills 5, Maintenance, 01/13/20 11:29:00 EDT, Aerosol, Route to Pharmacy Electronically, [id number], [facility], 158, cm, 11/25/19 17:19:... Start Date: 01/13/20 Stop Date: 07/11/20 Status: Orderedaspirin 81 mg oral delayed release tablet 81 mg, 1, tablet, By Mouth, Daily, do not crush or chew, # 30 tablet, Refills 11, Tot. Refills 11, Maintenance, 08/13/19 11:18:00 EDT, Route to Pharmacy Electronically, [facility] -, 165, cm, 06/05/19 13:45:00 EST, Height Start Date: 08/13/19 Status: Orderedatorvastatin 80 mg oral tablet 1 tablet = 80 mg, By Mouth, Daily, # 90 tablet, 4 Refills, Maintenance, 06/05/19 14:25:00 EST, Tablet, [facility] - , 165, cm, 06/05/19 [...] Refills, Soft Stop, 04/07/20 16:10:00 EST, Tablet, [facility], 158, cm, 04/07/20 15:28:00 EST, [...] Maintenance, 01/05/2010:50:00 EDT, Route to Pharmacy Electronically, [facility], 158, cm, 11/25/19 17:19:00 EDT, Height, 161, kg, 11/10/19 18:44:00 EDT... Start Date: 01/06/20 Status: OrderedHumalog Kwik Pen 100 units/mL subcutaneous injection See Instructions, Max daily dose 70 units, take per sliding scale from office 3 times daily with meals. E11.65, # 30 mL, 5 Refills, Maintenance, 10/22/19 15:40:00 EDT, [facility], 165, cm, 06/05/19 13:45:00 EST, Height Start Date: 10/22/19 Status: Orderedhydrochlorothiazide-lisinopril 25 mg-20 mg oral tablet 1 tablet, By Mouth, Daily, # 90 tablet, 3 Refills, Maintenance, 06/05/19 14:24:00 EST, Tablet, [facility], 1 tablet By [...] 01/26/20 15:33:00 EDT, Route to Pharmacy Electronically, [facility] Start Date: 01/26/20 Stop Date: 07/24/20 Status: OrderedLantus Solostar Pen 100 units/mL subcutaneous solution See Instructions, Take 35 units twice daily. E11.65, # 30 mL, 5 Refills, Maintenance, 10/22/19 15:41:00 EDT, [facility], 165, cm, 06/05/19 13:45:00 EST, Height Start Date: 10/22/19 Status: Orderedlevothyroxine 0.2 mg oral tablet 1 tablet = 200 mcg, By Mouth, Daily, # 90 tablet, 1 Refills, Maintenance, 03/02/20 16:38:00 EDT, Tablet, [facility], 158, cm, 11/25/19 17:19:00 EDT, Height, 161, kg, 11/10/19 18:44:00 EDT, Dry Weight Start Date: 03/02/20 Stop Date: 08/29/20 Status: Orderedloratadine 10 mg oral tablet 10 mg, 1, tablet, By Mouth, Daily, # 90 tablet, Refills 1, Tot. Refills 1, Maintenance, 12/09/19 9:24:00 EDT, Route to Pharmacy Electronically, [facility], 158, cm, 11/25/19 17:19:00 EDT, Height, 161, kg, 11/10/19 18:44:00 EDT, Dry... Start Date: 12/09/19 Stop Date: 06/06/20 Status: Orderedomeprazole 20 mg oral enteric coated capsule 1 capsule = 20 mg, By Mouth, Daily, take 1/2-1 hour before breakfast, # 30 capsule, 2 Refills, Maintenance, 04/21/20 10:02:00 EST, EC Capsule, [facility], 158, cm, 04/07/20 15:28:00EST, Height, 161, kg, 11/10/19 18:44:00 EDT, Dry... Start Date: 04/21/20 Status: OrderedPen [place], 31 G x 8 mm BD Ultra [...] Unsteady gait(Confirmed) Active Uses walker(Confirmed) Active 1iin [id number] the Suboxone program Social History Social History Type Response Smoking Status Current every day smoker; Ty pe: Cigarettes; Other: 10 a day; entered on: 11/25/15 Sex Female
--- OUTSIDE RECORDS SUMMARY | 2022-05-26 16:45 | XMS_ITS | Continuity of Care Document ---
:1970 Author Organization [facility] and D iabetes Address [address] [place] [address]- Care Team Providers Name Role Phone Brooke LUCERNE FARMER, Ray Mcleod Primary Care Physician Encounter [facility] [place] Date(s): 10/22/20 - 11/21/20 [facility] [address] [place] [address]- Allergies, Adverse Reactions, Alerts Substance Reaction Severity [...] Given 1Result Comment: [facility] [phone] Comment: [10/01/2015] per [id number] Comment: vis given Medications albuterol CFC free 90 mcg/inh inhalation aerosol 2, puffs, Inhalation, Every 4 hours, PRN, # 18 Gm, Refills 5, Tot. Refills 5, Maintenance, 07/11/20 11:29:00 EST, Aerosol, Route to Pharmacy Electronically, [id number], [facility], 158, cm, 04/07/20 15:28:... Start Date: 07/11/20 Stop Date: 01/07/21 Status: Orderedaspirin 81 mg oral delayed release tablet 81 mg, 1, tablet, By Mouth, Daily, do not crush or chew, # 30 tablet, Refills 11, Tot. Refills 11, Maintenance, 07/30/20 9:01:00 EST, Route to Pharmacy Electronically, [facility], 158, cm, 04/07/20 15:28:00 EST, Height, 161, kg, 06... Start Date: 07/30/20 Status: Orderedatorvastatin 80 mg oral tablet 1 tablet = 80 mg, By Mouth, Daily, # 90 tablet, 1 Refills, Maintenance, 10/08/20 11:38:00 EDT, Tablet, [facility], 158, cm, 10/08/20 11:23:00 EDT, [...] Maintenance, 09/03/2113:19:00 EDT, Route to Pharmacy Electronically, [facility], Resent from 09/02/20, 158, cm, [...] mL, 5 Refills, Maintenance, 08/26/20 16:38:00 EDT, [facility], 158, cm, 04/07/20 15:28:00 EST, Height, 161, kg, 11/10/19 18:44:0... Start Date: 08/26/20 Status: Orderedhydrochlorothiazide-lisinopril 25 mg-20 mg oral tablet 1 tablet, By Mouth, Daily, # 90 tablet, 0 Refills, Maintenance, 08/27/20 9:22:00 EDT, Tablet, [facility], Labs due for additional refills, [...] 09/03/20 15:34:00 EDT, Route to Pharmacy Electronically, [facility] Start Date: 09/03/20 Stop Date: 03/02/21 Status: OrderedLantus Solostar Pen 100 units/mL subcutaneous solution See Instructions, Take 45 units twice daily. E11.65, # 30 mL, 5 Refills, Maintenance, 08/26/20 16:38:00 EDT, [facility], 158, cm, 04/07/20 15:28:00 EST, Height, 161, kg, 11/10/19 18:44:00 EDT, Dry Weight Start Date: 08/26/20 Status: Orderedlevothyroxine 0.2 mg oral tablet 1 tablet = 200 mcg, By Mouth, Daily, # 90 tablet, 1 Refills, Maintenance, 09/02/20 8:56:00 EDT, Tablet, [facility], 158, cm, 04/07/20 15:28:00 EST, Height, 161, kg, 11/10/19 18:44:00 EDT, Dry Weight Start Date: 09/02/20 Stop Date: 03/01/21 Status: Orderedloratadine 10 mg oral tablet 1, tablet, By Mouth, Daily, # 90 tablet, Refills 1, Tot. Refills 0, Maintenance, 11/21/20 20:30:00 EDT, Route to Pharmacy Electronically, [facility], 158, cm, 10/08/20 11:23:00 EDT,Height, 161, kg, 11/10/19 18:44:00 EDT, Dry Weight Start Date: 11/21/20 Status: Orderedomeprazole 20 mg oral enteric coated capsule 1 capsule = 20 mg, By Mouth, Daily, take 1/2-1 hour before breakfast, # 30 capsule, 5 Refills, Maintenance, 10/19/20 11:46:00 EDT, EC Capsule, [facility], 158, cm, 10/08/20 11:23:00EDT, Height, 161, kg, 11/10/19 18:44:00 EDT, Dry... Start Date: 10/19/20 Status: OrderedPen [place], 31 G x 8 mm BD [...] Unsteady gait(Confirmed) Active Uses walker(Confirmed) Active 1iin [id number] the Suboxone program Social History Social History Type Response Smoking Status Current every day smoker; Ty pe: Cigarettes; Other: 10 a day; entered on: 11/25/15 Sex Female
--- OUTSIDE RECORDS SUMMARY | 2022-05-26 16:45 | XMS_ITS | Continuity of Care Document ---
:1970 Author Organization [facility] Adult Address [address] [place] [address]- Care Team Providers Name Role Phone Brooke JAVIER, Ray Mcleod Primary Care Physician [place] [facility] [place]21 [facility] Adult [address] [place] [phone]- Attending Physician: Ray Cox NP Referring Physician: Ray [...] H1N1, inactive(oldterm) 06/21/09 Recorde d 1Result Comment: [facility] [phone] Comment: [10/01/2015] per [id number] Comment: vis given Medications aspirin 81 mg oral delayed release tablet 81 mg, 1, tablet, By Mouth, Daily, do not crush or chew, # 30 tablet, Refills 11, Tot. Refills 11, Maintenance, 07/30/20 9:01:00 EST, Route to Pharmacy Electronically, [facility], 158, cm, 04/07/20 15:28:00 EST, Height, 161, kg, 06... Start Date: 07/30/20 Status: Orderedatorvastatin 80 mg oral tablet 1 tablet = 80 mg, By Mouth, Daily, # 90 tablet, 1 Refills, Maintenance, 10/08/20 11:38:00 EDT, Tablet, [facility], 158, cm, 10/08/20 11:23:00 EDT, [...] Maintenance, :11:00 EST, Route to Pharmacy Electronically, [facility]/pharmacy #[id number], Resent from 09/02/20, 158, cm, 10/08/20 11:23:00 [...] mL, 5 Refills, Maintenance, 08/26/20 16:38:00 EDT, [facility], 158, cm, 04/07/20 15:28:00 EST, Height, 161, kg, 11/10/19 18:44:0... Start Date: 08/26/20 Status: Orderedhydrochlorothiazide-lisinopril 25 mg-20 mg oral tablet 1 tablet, By Mouth, Daily, # 90 tablet, 0 Refills, Maintenance, 03/08/21 14:32:00 EDT, Tablet, [facility]/pharmacy #[id number], 1 tablet By Mouth Daily,x90 [...] mL, 5 Refills, Maintenance, 03/21/21 19:37:00 EDT, [facility], 158, cm, 10/08/20 11:23:00 EDT, Height, 161, kg, 11/10/19 18:44:00 EDT, Dry Weight Start Date: 03/21/21 Status: Orderedlevothyroxine 0.2 mg oral tablet 1 tablet, By Mouth, Daily, # 90 tablet, 0 Refills, [facility], 158, cm, 10/08/2110:23:00 EDT, Height, 161, kg, 11/10/19 18:44:00 EDT, Dry Weight Start Date: 02/17/21 Status: Orderedloratadine 10 mg oral tablet 1, tablet, By Mouth, Daily, # 90 tablet, Refills 1, Tot. Refills 0, Maintenance, 11/21/20 20:30:00 EDT, Route to Pharmacy Electronically, [facility], 158, cm, 10/08/20 11:23:00 EDT,Height, 161, kg, 11/10/19 18:44:00 EDT, Dry Weight Start Date: 11/21/20 Status: Orderedomeprazole 20 mg oral enteric coated capsule See Instructions, TAKE 1 CAPSULE BY MOUTH EVERY DAY 30 TO 60 MINUTES BEFORE BREAKFAST, # 30 capsule,2 Refills, [facility], 158, cm, 10/08/20 11:23:00 EDT, Height, 161, kg, 11/09/2017:44:00 EDT, Dry Weight Start Date: 04/10/21 Status: OrderedPen [place], 31 G x 8 mm BD Ultra [...] Maintenance, 11/29/2109:15:00 EDT, Route to Pharmacy Electronically, [id number], [facility], 158, cm, 10/08/20 11:23:00 EDT,... [...] Unsteady gait(Confirmed) Active Uses walker(Confirmed) Active 1iin [id number] the Suboxone program Vital Signs Most recent to oldest [Reference Range]: 1 Height 158 cm (04/14/21 8:27 AM) Social History Social History Type Response Smoking Status Current every day smoker; Ty pe: Cigarettes; Other: 10 a day; entered on: 11/25/15 Sex Female
--- OUTSIDE RECORDS SUMMARY | 2022-05-26 16:45 | XMS_ITS | Continuity of Care Document ---
:1970 Author Organization [facility] Adult Address [address] [place] [address]- Care Team Providers Name Role Phone Brooke PRODUCT SUPPORT ENGINEER, Ray Mcleod Primary Care Physician Encounter [facility] [place] Date(s): 12/08/20 - 01/07/21 [facility] Adult [address] [place] [phone]- Allergies, Adverse Reactions, Alerts Substance Reaction Severity [...] 1Result Comment: [facility] [phone] Comment: [10/01/2015] per [id number] Comment: vis given Medications aspirin 81 mg oral delayed release tablet 81 mg, 1, tablet, By Mouth, Daily, do not crush or chew, # 30 tablet, Refills 11, Tot. Refills 11, Maintenance, 07/30/20 9:01:00 EST, Route to Pharmacy Electronically, [facility], 158, cm, 04/07/20 15:28:00 EST, Height, 161, kg, 06... Start Date: 07/30/20 Status: Orderedatorvastatin 80 mg oral tablet 1 tablet = 80 mg, By Mouth, Daily, # 90 tablet, 1 Refills, Maintenance, 10/08/20 11:38:00 EDT, Tablet, [facility], 158, cm, 10/08/20 11:23:00 EDT, [...] Maintenance, 09/03/2113:19:00 EDT, Route to Pharmacy Electronically, [facility], Resent from 09/02/20, 158, cm, [...] mL, 5 Refills, Maintenance, 08/26/20 16:38:00 EDT, [facility], 158, cm, 04/07/20 15:28:00 EST, Height, 161, kg, 11/10/19 18:44:0... Start Date: 08/26/20 Status: Orderedhydrochlorothiazide-lisinopril 25 mg-20 mg oral tablet 1 tablet, By Mouth, Daily, # 90 tablet, 0 Refills, Maintenance, 12/08/20 9:05:00 EDT, Tablet, [facility]/pharmacy #[id number], 1 tablet By Mouth Daily,x90 days, [...] 09/03/20 15:34:00 EDT, Route to Pharmacy Electronically, [facility]... Start Date: 09/03/20 Stop Date: 03/02/21 Status: OrderedLantus Solostar Pen 100 units/mL subcutaneous solution See Instructions, Take 45 units twice daily. E11.65, # 30 mL, 5 Refills, Maintenance, 08/26/20 16:38:00 EDT, [facility], 158, cm, 04/07/20 15:28:00 EST, Height, 161, kg, 11/10/19 18:44:00 EDT, Dry Weight Start Date: 08/26/20 Status: Orderedlevothyroxine 0.2 mg oral tablet 1 tablet = 200 mcg, By Mouth, Daily, # 90 tablet, 1 Refills, Maintenance, 09/02/20 8:56:00 EDT, Tablet, [facility], 158, cm, 04/07/20 15:28:00 EST, Height, 161, kg, 11/10/19 18:44:00 EDT, Dry Weight Start Date: 09/02/20 Stop Date: 03/01/21 Status: Orderedloratadine 10 mg oral tablet 1, tablet, By Mouth, Daily, # 90 tablet, Refills 1, Tot. Refills 0, Maintenance, 11/21/20 20:30:00 EDT, Route to Pharmacy Electronically, [facility], 158, cm, 10/08/20 11:23:00 EDT,Height, 161, kg, 11/10/19 18:44:00 EDT, Dry Weight Start Date: 11/21/20 Status: Orderedomeprazole 20 mg oral enteric coated capsule 1 capsule = 20 mg, By Mouth, Daily, take 1/2-1 hour before breakfast, # 30 capsule, 5 Refills, Maintenance, 10/19/20 11:46:00 EDT, EC Capsule, [facility], 158, cm, 10/08/20 11:23:00EDT, Height, 161, kg, 11/10/19 18:44:00 EDT, Dry... Start Date: 10/19/20 Status: OrderedPen [place], 31 G x 8 mm BD Ultra [...] Maintenance, 11/29/2109:15:00 EDT, Route to Pharmacy Electronically, [id number], [facility], 158, cm, 10/08/20 11:23:00 EDT,... [...] Unsteady gait(Confirmed) Active Uses walker(Confirmed) Active 1iin [id number] the Suboxone program Social History Social History Type Response Smoking Status Current every day smoker; Ty pe: Cigarettes; Other: 10 a day; entered on: 11/25/15 Sex Female
--- OUTSIDE RECORDS SUMMARY | 2022-05-26 16:45 | XMS_ITS | Continuity of Care Document ---
:1970 Author Organization [facility] Adult Address [address] [place] [address]- Care Team Providers Name Role Phone Brooke COMMERCIAL TITLE EXAMINER, Ray Mcleod Primary Care Physician Encounter [facility] Date(s): 04/30/20 - 05/30/20 [facility] Adult [address] [place] [phone]- Allergies, Adverse Reactions, Alerts Substance Reaction Severity [...] Given 1Result Comment: [facility] [phone] Comment: [10/01/2015] per [id number] Comment: vis given Medications albuterol CFC free 90 mcg/inh inhalation aerosol 2, puffs, Inhalation, Every 4 hours, PRN, # 18 Gm, Refills 5, Tot. Refills 5, Maintenance, 01/13/20 11:29:00 EDT, Aerosol, Route to Pharmacy Electronically, [id number], [facility], 158, cm, 11/25/19 17:19:... Start Date: 01/13/20 Stop Date: 07/11/20 Status: Orderedaspirin 81 mg oral delayed release tablet 81 mg, 1, tablet, By Mouth, Daily, do not crush or chew, # 30 tablet, Refills 11, Tot. Refills 11, Maintenance, 08/13/19 11:18:00 EDT, Route to Pharmacy Electronically, [facility], 165, cm, 06/05/19 13:45:00 EST, Height Start Date: 08/13/19 Status: Orderedatorvastatin 80 mg oral tablet 1 tablet = 80 mg, By Mouth, Daily, # 90 tablet, 1 Refills, Maintenance, 05/25/20 16:29:00 EST, Tablet, [facility], 158, cm, 04/07/20 15:28:00 [...] Refills, Soft Stop, 04/07/20 16:10:00 EST, Tablet, [facility], 158, cm, 04/07/20 15:28:00 [...] Maintenance, 01/05/2010:50:00 EDT, Route to Pharmacy Electronically, [facility], 158, cm, 11/25/19 17:19:00 EDT, Height, 161, kg, 11/10/19 18:44:00 EDT... Start Date: 01/06/20 Status: OrderedHumalog Kwik Pen 100 units/mL subcutaneous injection See Instructions, Max daily dose 70 units, take per sliding scale from office 3 times daily with meals. E11.65, # 30 mL, 5 Refills, Maintenance, 10/22/19 15:40:00 EDT, [facility], 165, cm, 06/05/19 13:45:00 EST, Height Start Date: 10/22/19 Status: Orderedhydrochlorothiazide-lisinopril 25 mg-20 mg oral tablet 1 tablet, By Mouth, Daily, # 90 tablet, 0 Refills, Maintenance, 05/25/20 16:29:00 EST, Tablet, [facility], 1 tablet By Mouth [...] 01/26/20 15:33:00 EDT, Route to Pharmacy Electronically, [facility] Start Date: 01/26/20 Stop Date: 07/24/20 Status: OrderedLantus Solostar Pen 100 units/mL subcutaneous solution See Instructions, Take 35 units twice daily. E11.65, # 30 mL, 5 Refills, Maintenance, 10/22/19 15:41:00 EDT, [facility], 165, cm, 06/05/19 13:45:00 EST, Height Start Date: 10/22/19 Status: Orderedlevothyroxine 0.2 mg oral tablet 1 tablet = 200 mcg, By Mouth, Daily, # 90 tablet, 1 Refills, Maintenance, 03/02/20 16:38:00 EDT, Tablet, [facility], 158, cm, 11/25/19 17:19:00 EDT, Height, 161, kg, 11/10/19 18:44:00 EDT, Dry Weight Start Date: 03/02/20 Stop Date: 08/29/20 Status: Orderedloratadine 10 mg oral tablet 10 mg, 1, tablet, By Mouth, Daily, # 90 tablet, Refills 1, Tot. Refills 1, Maintenance, 12/09/19 9:24:00 EDT, Route to Pharmacy Electronically, [facility], 158, cm, 11/25/19 17:19:00 EDT, Height, 161, kg, 11/10/19 18:44:00 EDT, Dry... Start Date: 12/09/19 Stop Date: 06/06/20 Status: Orderedomeprazole 20 mg oral enteric coated capsule 1 capsule = 20 mg, By Mouth, Daily, take 1/2-1 hour before breakfast, # 30 capsule, 2 Refills, Maintenance, 04/21/20 10:02:00 EST, EC Capsule, [facility], 158, cm, 04/07/20 15:28:00EST, Height, 161, kg, 11/10/19 18:44:00 EDT, Dry... Start Date: 04/21/20 Status: OrderedPen [place], 31 G x 8 mm BD Ultra [...] Unsteady gait(Confirmed) Active Uses walker(Confirmed) Active 1iin [id number] the Suboxone program Social History Social History Type Response Smoking Status Current every day smoker; Ty pe: Cigarettes; Other: 10 a day; entered on: 11/25/15 Sex Female
--- OUTSIDE RECORDS SUMMARY | 2022-05-26 16:45 | XMS_ITS | Continuity of Care Document ---
:1970 Author Organization [facility] Adult Address [address] [place] [address]- Care Team Providers Name Role Phone Brooke CORN SHELLER, Ray Mcleod Primary Care Physician Encounter [facility] Date(s): 03/08/21 - 04/07/21 [facility] Adult [address] [place] [phone]- Allergies, Adverse Reactions, Alerts Substance Reaction Severity [...] H1N1, inactive(oldterm) 06/21/09 Recorde d 1Result Comment: [facility] [phone] Comment: [10/01/2015] per [id number] Comment: vis given Medications aspirin 81 mg oral delayed release tablet 81 mg, 1, tablet, By Mouth, Daily, do not crush or chew, # 30 tablet, Refills 11, Tot. Refills 11, Maintenance, 07/30/20 9:01:00 EST, Route to Pharmacy Electronically, [facility], 158, cm, 04/07/20 15:28:00 EST, Height, 161, kg, 06... Start Date: 07/30/20 Status: Orderedatorvastatin 80 mg oral tablet 1 tablet = 80 mg, By Mouth, Daily, # 90 tablet, 1 Refills, Maintenance, 10/08/20 11:38:00 EDT, Tablet, [facility], 158, cm, 10/08/20 11:23:00 EDT, [...] 09/03/2113:19:00 EDT, Route to Pharmacy Electronically, [facility], Resent from 09/02/20, 158, cm, [...] 5 Refills, Maintenance, 08/26/20 16:38:00 EDT, [facility], 158, cm, 04/07/20 15:28:00 EST, Height, 161, kg, 11/10/19 18:44:0... Start Date: 08/26/20 Status: Orderedhydrochlorothiazide-lisinopril 25 mg-20 mg oral tablet 1 tablet, By Mouth, Daily, # 90 tablet, 0 Refills, Maintenance, 03/08/21 14:32:00 EDT, Tablet, [facility]/pharmacy #[id number], 1 tablet By Mouth Daily,x90 days, [...] mL, 5 Refills, Maintenance, 03/21/21 19:37:00 EDT, [facility], 158, cm, 10/08/20 11:23:00 EDT, Height, 161, kg, 11/10/19 18:44:00 EDT, Dry Weight Start Date: 03/21/21 Status: Orderedlevothyroxine 0.2 mg oral tablet 1 tablet, By Mouth, Daily, # 90 tablet, 0 Refills, [facility], 158, cm, 10/08/2110:23:00 EDT, Height, 161, kg, 11/10/19 18:44:00 EDT, Dry Weight Start Date: 02/17/21 Status: Orderedloratadine 10 mg oral tablet 1, tablet, By Mouth, Daily, # 90 tablet, Refills 1, Tot. Refills 0, Maintenance, 11/21/20 20:30:00 EDT, Route to Pharmacy Electronically, [facility], 158, cm, 10/08/20 11:23:00 EDT,Height, 161, kg, 11/10/19 18:44:00 EDT, Dry Weight Start Date: 11/21/20 Status: Orderedomeprazole 20 mg oral enteric coated capsule 1 capsule = 20 mg, By Mouth, Daily, take 1/2-1 hour before breakfast, # 30 capsule, 5 Refills, Maintenance, 10/19/20 11:46:00 EDT, EC Capsule, [facility], 158, cm, 10/08/20 11:23:00EDT, Height, 161, kg, 11/10/19 18:44:00 EDT, Dry... Start Date: 10/19/20 Status: OrderedPen [place], 31 G x 8 mm BD Ultra [...] Maintenance, 11/29/2109:15:00 EDT, Route to Pharmacy Electronically, [id number], [facility], 158, cm, 10/08/20 11:23:00 EDT,... [...] Unsteady gait(Confirmed) Active Uses walker(Confirmed) Active 1iin [id number] the Suboxone program Social History Social History Type Response Smoking Status Current every day smoker; Ty pe: Cigarettes; Other: 10 a day; entered on: 11/25/15 Sex Female
--- OUTSIDE RECORDS SUMMARY | 2022-05-26 16:45 | XMS_ITS | Continuity of Care Document ---
:1970 Author Organization [facility] Adult Address [address] [place] [address]- Care Team Providers Name Role Phone Brooke WAREHOUSE DIRECTOR, Ray Mcleod Primary Care Physician [place] [facility] [place] 06[place]28[place]21 - 07/28/21 [facility] Adult [address] [place] [phone]- Allergies, Adverse Reactions, Alerts Substance Reaction Severity [...] H1N1, inactive(oldterm) 06/21/09 Recorde d 1Result Comment: [facility] [phone] Comment: [10/01/2015] per [id number] Comment: vis given Medications Aspirin Low Dose 81 mg oral delayed release tablet 1 tablet, By Mouth, Daily, no CRUSH OR CHEW, # 30 tablet, 11 Refills, [facility], 158, cm, 04/29/21 11:38:00 EST, Height, 161, kg, 11/10/19 18:44:00 EDT, Dry Weight Start Date: 07/11/21 Status: Orderedatorvastatin 80 mg oral tablet 1 tablet, By Mouth, Daily, NEEDS LABS BEFORE NEXT REFILL, # 90 tablet, 1 Refills, Maintenance, 06/29/21 7:35:00 EST, [facility], 158, cm, 04/29/21 11:38:00 EST, [...] EST, Supply Start Date: 07/26/20 Status: OrderedFreeStyle [place] Lite kit FreeStyle [place] Lite kit, See Instructions, # 1 kit, [...] Maintenance, :11:00 EST, Route to Pharmacy Electronically, [facility] #[id number], Resent from 09/02/20, 158, cm, 10/08/20 11:23:00 [...] tablet, 0 Refills, Maintenance, 06/04/21 7:54:00 EST, [facility]/pharmacy #[id number], 90, Please ask patient to call [...] 05/19/21 11:48:00 EST, Route to Pharmacy Electronically, [facility]/pharmacy #[id number], 158, cm... Start Date: 05/19/21 Stop Date: 11/15/21 Status: OrderedLantus Solostar Pen 100 units/mL subcutaneous solution See Instructions, Take 54 units twice daily. E11.65, # 45 mL, 5 Refills, Maintenance, 03/21/21 19:37:00 EDT, [facility], 158, cm, 10/08/20 11:23:00 EDT, Height, 161, kg, 11/10/19 18:44:00 EDT, Dry Weight Start Date: 03/21/21 Status: Orderedlevothyroxine 0.2 mg oral tablet 1 tablet, By Mouth, Daily, # 90 tablet, 0 Refills, Maintenance, 06/29/21 7:35:00 EST, [facility], 158, cm, 04/29/21 11:38:00 EST, Height, 161, kg, 11/10/19 18:44:00 EDT, Dry Weight Start Date: 06/29/21 Stop Date: 09/27/21 Status: Orderedloratadine 10 mg oral tablet 1, tablet, By Mouth, Daily, # 90 tablet, Refills 1, Route to Pharmacy Electronically, [facility], 158, cm, 04/29/21 11:38:00 EST, Height, 161, kg, 11/10/19 18:44:00 EDT, Dry Weight Start Date: 05/13/21 Status: Orderedomeprazole 20 mg oral enteric coated capsule See Instructions, TAKE 1 CAPSULE BY MOUTH 30-60 MINUTES BEFORE BREAKFAST, # 30 capsule, 11 Refills, [facility], 158, cm, 04/29/21 11:38:00 EST, Height, 161, kg, 11/10/19 18:44:00 EDT, Dry Weight Start Date: 07/11/21 Status: OrderedPen [place], 31 G x 8 mm BD Ultra [...] Gm, Refills 5, Route to Pharmacy Electronically, [id number], [facility], 158, cm, 04/29/21 11:38:00 EST, [...] Unsteady gait(Confirmed) Active Uses walker(Confirmed) Active 1iin [id number] the Suboxone program Social History Social History Type Response Smoking Status Current every day smoker; Ty pe: Cigarettes; Other: 10 a day; entered on: 11/25/15 Sex Female
--- OUTSIDE RECORDS SUMMARY | 2022-05-26 16:45 | XMS_ITS | Continuity of Care Document ---
:1970 Author Organization [facility] Address [address] [place] [address]- Care Team Providers Name Role Phone Brooke YOUNG ADULT LIBRARIAN, Ray Mcleod Primary Care Physician [place] [facility] [place]/21/20 - 05/21/20 [facility] [address] [place] [phone]- Allergies, Adverse Reactions, Alerts Substance Reaction Severity [...] 23-valent vaccine3 11/22/10 Given 1Result Comment: [facility] [phone] Comment: [10/01/2015] per [id number] Comment: vis given Medications albuterol CFC free 90 mcg/inh inhalation aerosol 2, puffs, Inhalation, Every 4 hours, PRN, # 18 Gm, Refills 5, Tot. Refills 5, Maintenance, 01/13/20 11:29:00 EDT, Aerosol, Route to Pharmacy Electronically, [id number], [facility], 158, cm, 11/25/19 17:19:... Start Date: 01/13/20 Stop Date: 07/11/20 Status: Orderedaspirin 81 mg oral delayed release tablet 81 mg, 1, tablet, By Mouth, Daily, do not crush or chew, # 30 tablet, Refills 11, Tot. Refills 11, Maintenance, 08/13/19 11:18:00 EDT, Route to Pharmacy Electronically, [facility] -, 165, cm, 06/05/19 13:45:00 EST, Height Start Date: 08/13/19 Status: Orderedatorvastatin 80 mg oral tablet 1 tablet = 80 mg, By Mouth, Daily, # 90 tablet, 4 Refills, Maintenance, 06/05/19 14:25:00 EST, Tablet, [facility] - , 165, cm, [...] Refills, Soft Stop, 04/07/20 16:10:00 EST, Tablet, [facility], 158, cm, 04/07/20 15:28:00 [...] 01/05/2010:50:00 EDT, Route to Pharmacy Electronically, [facility], 158, cm, 11/25/19 17:19:00 EDT, Height, 161, kg, 11/10/19 18:44:00 EDT... Start Date: 01/06/20 Status: OrderedHumalog Kwik Pen 100 units/mL subcutaneous injection See Instructions, Max daily dose 70 units, take per sliding scale from office 3 times daily with meals. E11.65, # 30 mL, 5 Refills, Maintenance, 10/22/19 15:40:00 EDT, [facility], 165, cm, 06/05/19 13:45:00 EST, Height Start Date: 10/22/19 Status: Orderedhydrochlorothiazide-lisinopril 25 mg-20 mg oral tablet 1 tablet, By Mouth, Daily, # 90 tablet, 3 Refills, Maintenance, 06/05/19 14:24:00 EST, Tablet, [facility], 1 tablet [...] 15:33:00 EDT, Route to Pharmacy Electronically, [facility] Start Date: 01/26/20 Stop Date: 07/24/20 Status: OrderedLantus Solostar Pen 100 units/mL subcutaneous solution See Instructions, Take 35 units twice daily. E11.65, # 30 mL, 5 Refills, Maintenance, 10/22/19 15:41:00 EDT, [facility], 165, cm, 06/05/19 13:45:00 EST, Height Start Date: 10/22/19 Status: Orderedlevothyroxine 0.2 mg oral tablet 1 tablet = 200 mcg, By Mouth, Daily, # 90 tablet, 1 Refills, Maintenance, 03/02/20 16:38:00 EDT, Tablet, [facility], 158, cm, 11/25/19 17:19:00 EDT, Height, 161, kg, 11/10/19 18:44:00 EDT, Dry Weight Start Date: 03/02/20 Stop Date: 08/29/20 Status: Orderedloratadine 10 mg oral tablet 10 mg, 1, tablet, By Mouth, Daily, # 90 tablet, Refills 1, Tot. Refills 1, Maintenance, 12/09/19 9:24:00 EDT, Route to Pharmacy Electronically, [facility], 158, cm, 11/25/19 17:19:00 EDT, Height, 161, kg, 11/10/19 18:44:00 EDT, Dry... Start Date: 12/09/19 Stop Date: 06/06/20 Status: Orderedomeprazole 20 mg oral enteric coated capsule 1 capsule = 20 mg, By Mouth, Daily, take 1/2-1 hour before breakfast, # 30 capsule, 2 Refills, Maintenance, 04/21/20 10:02:00 EST, EC Capsule, [facility], 158, cm, 04/07/20 15:28:00EST, Height, 161, kg, 11/10/19 18:44:00 EDT, Dry... Start Date: 04/21/20 Status: OrderedPen [place], 31 G x 8 mm BD Ultra [...] Unsteady gait(Confirmed) Active Uses walker(Confirmed) Active 1iin [id number] the Suboxone program Social History Social History Type Response Smoking Status Current every day smoker; Ty pe: Cigarettes; Other: 10 a day; entered on: 11/25/15 Sex Female
--- OUTSIDE RECORDS SUMMARY | 2022-05-26 16:45 | XMS_ITS | Continuity of Care Document ---
:1970 Author Organization [facility] Address [address] [place] [phone]- Care Team Providers Name Role Phone Brooke JAVIER, Ray Mcleod Primary Care Physician Encounter [facility] Date(s): 01/12/20 - 02/11/[address] [address]- [facility] Attending Physician: Admtr, Ar8 Admitting Physician: Admtr, Ar8 Referring Physician: Admtr, Ar8 Allergies, Adverse Reactions, [...] 11/22/10 Given 1Result Comment: [facility] [phone] Comment: [10/01/2015] per [id number] Comment: vis given Medications albuterol CFC free 90 mcg/inh inhalation aerosol 2, puffs, Inhalation, Every 4 hours, PRN, # 18 Gm, Refills 5, Tot. Refills 5, Maintenance, 01/13/20 11:29:00 EDT, Aerosol, Route to Pharmacy Electronically, [id number], [facility], 158, cm, 11/25/19 17:19:... Start Date: 01/13/20 Stop Date: 07/11/20 Status: Orderedaspirin 81 mg oral delayed release tablet 81 mg, 1, tablet, By Mouth, Daily, do not crush or chew, # 30 tablet, Refills 11, Tot. Refills 11, Maintenance, 08/13/19 11:18:00 EDT, Route to Pharmacy Electronically, [facility], 165, cm, 06/05/19 13:45:00 EST, Height Start Date: 08/13/19 Status: Orderedatorvastatin 80 mg oral tablet 1 tablet = 80 mg, By Mouth, Daily, # 90 tablet, 4 Refills, Maintenance, 06/05/19 14:25:00 EST, Tablet, [facility], 165, cm, 06/05/19 13:45:00 EST, Height Start Date: 06/05/19 Status: OrderedBARIATRIC WHEELCHAIR BARIATRIC WHEELCHAIR, See Instructions, # 1 each, Refills 0, Tot. Refills 0, Maintenance, WITH FOOT RESTS. DX UNSTEADY GAIT, LENGTH OF NEED:LIFETIME [address], 08/04/19 15:18:00 EST, Compound Start Date: 08/04/19 [...] Maintenance, 01/05/2010:50:00 EDT, Route to Pharmacy Electronically, [facility], 158, cm, 11/25/19 17:19:00 EDT, Height, 161, kg, 11/10/19 18:44:00 EDT... Start Date: 01/06/20 Status: OrderedHumalog Kwik Pen 100 units/mL subcutaneous injection See Instructions, Max daily dose 70 units, take per sliding scale from office 3 times daily with meals. E11.65, # 30 mL, 5 Refills, Maintenance, 10/22/19 15:40:00 EDT, [facility], 165, cm, 06/05/19 13:45:00 EST, Height Start Date: 10/22/19 Status: Orderedhydrochlorothiazide-lisinopril 25 mg-20 mg oral tablet 1 tablet, By Mouth, Daily, # 90 tablet, 3 Refills, Maintenance, 06/05/19 14:24:00 EST, Tablet, [facility], 1 tablet By Mouth [...] 01/26/20 15:33:00 EDT, Route to Pharmacy Electronically, [facility]... Start Date: 01/26/20 Stop Date: 07/24/20 Status: OrderedLantus Solostar Pen 100 units/mL subcutaneous solution See Instructions, Take 35 units twice daily. E11.65, # 30 mL, 5 Refills, Maintenance, 10/22/19 15:41:00 EDT, [facility], 165, cm, 06/05/19 13:45:00 EST, Height Start Date: 10/22/19 Status: Orderedlevothyroxine 0.2 mg oral tablet 1 tablet = 200 mcg, By Mouth, Daily, Labs needed prior to refills 09/04/2019. See 09/03 msg., # 90 tablet, 1 Refills, Maintenance, 09/04/19 16:38:00 EDT, Tablet, [facility], change in dose, 165, cm, 06/05/19 13:45:00 EST, Height Start Date: 09/04/19 Stop Date: 03/02/20 Status: Orderedloratadine 10 mg oral tablet 10 mg, 1, tablet, By Mouth, Daily, # 90 tablet, Refills 1, Tot. Refills 1, Maintenance, 12/09/19 9:24:00 EDT, Route to Pharmacy Electronically, [facility], 158, cm, 11/25/19 17:19:00 EDT, Height, 161, kg, 11/10/19 18:44:00 EDT, Dry... Start Date: 12/09/19 Stop Date: 06/06/20 Status: Orderedomeprazole 20 mg oral enteric coated capsule 1 capsule = 20 mg, By Mouth, Daily, take 1/2-1 hour before breakfast, # 30 capsule, 2 Refills, Maintenance, 01/06/20 9:48:00 EDT, EC Capsule, [facility], 158, cm, 11/25/19 17:19:00 EDT, Height, 161, kg, 11/10/19 18:44:00 EDT, Dry W... Start Date: 01/06/20 Status: OrderedPen [place], 31 G x 8 mm BD Ultra [...] Unsteady gait(Confirmed) Active Uses walker(Confirmed) Active 1iin [id number] the Suboxone program Social History Social History Type Response Smoking Status Current every day smoker; Ty pe: Cigarettes; Other: 10 a day; entered on: 11/25/15 Sex Female
--- OUTSIDE RECORDS SUMMARY | 2022-05-26 16:45 | XMS_ITS | Continuity of Care Document ---
:1970 Author Organization [facility] Address [address] [address]- Care Team Providers Name Role Phone Brooke JAVIER, Ray Mcleod Primary Care Physician [place] [facility] Date(s): 10/01/21 - 01/29/22 [facility] [address] [phone]- Attending Physician: Ismael Bethea II, MD Admitting Physician: Ismael Bethea II, MD Referring Physician: Ray Cox NP Allergies, [...] d 1Result Comment: [facility]: [id number] Comment: [facility] [phone] Comment: [10/01/2015] per [id number] Comment: vis given Medications amLODIPine 5 mg oral tablet TAKE 1 TABLET BY MOUTH EVERY DAY Start Date: 09/15/21 Status: OrderedamLODIPine 5 mg oral tablet 1 tablet = 5 mg, By Mouth, Daily, TAKE 1 TABLET BY MOUTH EVERY DAY, # 90 tablet, 2 Refills, Maintenance, 10/14/21 17:06:00 EDT, Tablet, [facility], Partial fill upon patient requestif the prescription is for a schedule II opioid d... Start Date: 10/14/21 Stop Date: 07/11/22 Status: OrderedAspirin Low Dose 81 mg oral delayed release tablet 1 tablet, By Mouth, Daily, no CRUSH OR CHEW, # 30 tablet, 11 Refills, [facility], 158, cm, 04/29/21 11:38:00 EST, Height, 161, kg, 11/10/19 18:44:00 EDT, Dry Weight Start Date: 07/11/21 Status: Orderedatorvastatin 80 mg oral tablet 1 tablet, By Mouth, Daily, # 90 tablet, 1 Refills, Maintenance, 12/16/21 12:20:00 EDT, [facility], 158, cm, 10/14/21 14:09:00 EDT, [...] EST, Supply Start Date: 07/26/20 Status: OrderedFreeStyle [place] Lite kit FreeStyle [place] Lite kit, See Instructions, # 1 kit, [...] 5 Refills, Maintenance, 09/01/21 13:44:00 EDT, Tablet, [facility], Partial fill upon patient request [...] mL, 5 Refills, Maintenance, 08/31/21 13:03:00 EDT, [facility], 158, cm, 08/05/21 13:35:00 EST, [...] tablet, 1 Refills, Maintenance, 08/31/21 15:46:00 EDT, [facility], 90, 1 tablet By Mouth [...] FOOD OR MILK, Route to Pharmacy Electronically, [id number], 158, cm, 10/14/21 14:09:00 EDT, Height Start Date: 11/30/21 Status: OrderedLantus Solostar Pen 100 units/mL subcutaneous solution See Instructions, Take 54 units twice daily. E11.65, # 45 mL, 5 Refills, Maintenance, 03/21/21 19:37:00 EDT, [facility], 158, cm, 10/08/20 11:23:00 EDT, Height, 161, kg, 11/10/19 18:44:00 EDT, Dry Weight Start Date: 03/21/21 Status: Orderedlevothyroxine 0.2 mg oral tablet 1 tablet, By Mouth, Daily, # 90 tablet, 1 Refills, Maintenance, 09/27/21 18:47:00 EDT, [facility], 158, cm, 09/15/21 16:09:00 EDT, Height, 161, kg, 11/10/19 18:44:00 EDT, Dry Weight Start Date: 09/27/21 Stop Date: 03/26/22 Status: Orderedloratadine 10 mg oral tablet 1, tablet, By Mouth, Daily, # 90 tablet, Refills 1, Route to Pharmacy Electronically, [facility], 158, cm, 10/14/21 14:09:00 EDT, Height, 161, kg, 11/10/19 18:44:00 EDT, Dry Weight Start Date: 11/04/21 Status: Orderedomeprazole 20 mg oral enteric coated capsule 1 capsule = 20 mg, By Mouth, 2 times a day, for 90 days, # 180 capsule, 6 Refills, Physician Stop 04/27/23 14:10:00 EST, 08/05/21 14:10:00 EST, [facility], 158, cm, 08/05/21 13:35:00 EST, Height, 161, kg, 11/10/19 18:44:00 EDT, Dry... Start Date: 08/05/21 Stop Date: 04/27/23 Status: Orderedpadded toilet seat padded toilet seat, See Instructions, # 1 each, Refills 0, Tot. Refills 0, Maintenance, dx: buttock sores, 09/19/21 11:23:00 EDT, Supply Start Date: 09/19/21 Status: OrderedPen [place], 31 G x 8 mm BD Ultra [...] Gm, Refills 5, Route to Pharmacy Electronically, [id number], [facility], 158, cm, 04/29/21 11:38:00 EST, [...] Unsteady gait(Confirmed) Active Uses walker(Confirmed) Active 1iin [id number] the Suboxone program Social History Social History Type Response Smoking Status 5-9 cigarettes (between 1/4 to 1/2 pack)/day in last 30 days entered on: 08/05/21 Sex Female Care Team PersonnelName: Ray Cox NP Address: [address] [place] [address] [address] [place], [place] [address]
--- OUTSIDE RECORDS SUMMARY | 2022-05-26 16:45 | XMS_ITS | Continuity of Care Document ---
:1970 Author Organization [facility] Address [address] [place] [address]- Care Team Providers Name Role Phone Brooke PARK ATTENDANT, Ray Mcleod Primary Care Physician Encounter [facility] Date(s): 01/20/22 - 02/19/22 [facility] [address] [place] [phone]- Allergies, Adverse Reactions, Alerts Substance Reaction Severity [...] H1N1, inactive(oldterm) 06/21/09 Recorde d 1Result Comment: [facility]: [id number] Comment: [facility] [phone] Comment: [10/01/2015] per [id number] Comment: vis given Medications amLODIPine 5 mg oral tablet TAKE 1 TABLET BY MOUTH EVERY DAY Start Date: 09/15/21 Status: OrderedamLODIPine 5 mg oral tablet 1 tablet = 5 mg, By Mouth, Daily, TAKE 1 TABLET BY MOUTH EVERY DAY, # 90 tablet, 2 Refills, Maintenance, 10/14/21 17:06:00 EDT, Tablet, [facility], Partial fill upon patient requestif the prescription is for a schedule II opioid d... Start Date: 10/14/21 Stop Date: 07/11/22 Status: OrderedAspirin Low Dose 81 mg oral delayed release tablet 1 tablet, By Mouth, Daily, no CRUSH OR CHEW, # 30 tablet, 11 Refills, [facility], 158, cm, 04/29/21 11:38:00 EST, Height, 161, kg, 11/10/19 18:44:00 EDT, Dry Weight Start Date: 07/11/21 Status: Orderedatorvastatin 80 mg oral tablet 1 tablet, By Mouth, Daily, # 90 tablet, 1 Refills, Maintenance, 12/16/21 12:20:00 EDT, [facility], 158, cm, 10/14/21 14:09:00 EDT, [...] EST, Supply Start Date: 07/26/20 Status: OrderedFreeStyle [place] Lite kit FreeStyle [place] Lite kit, See Instructions, # 1 kit, [...] 5 Refills, Maintenance, 09/01/21 13:44:00 EDT, Tablet, [facility], Partial fill upon patient request [...] mL, 5 Refills, Maintenance, 08/31/21 13:03:00 EDT, [facility], 158, cm, 08/05/21 13:35:00 EST, [...] tablet, 1 Refills, Maintenance, 08/31/21 15:46:00 EDT, [facility], 90, 1 tablet By Mouth [...] FOOD OR MILK, Route to Pharmacy Electronically, [facility], 158, cm, 10/14/21 14:09:00 EDT, Height Start Date: 11/30/21 Status: OrderedLantus Solostar Pen 100 units/mL subcutaneous solution See Instructions, Take 54 units twice daily. E11.65, # 45 mL, 5 Refills, Maintenance, 03/21/21 19:37:00 EDT, [facility], 158, cm, 10/08/20 11:23:00 EDT, Height, 161, kg, 11/10/19 18:44:00 EDT, Dry Weight Start Date: 03/21/21 Status: Orderedlevothyroxine 0.2 mg oral tablet 1 tablet, By Mouth, Daily, # 90 tablet, 1 Refills, Maintenance, 09/27/21 18:47:00 EDT, [facility], 158, cm, 09/15/21 16:09:00 EDT, Height, 161, kg, 11/10/19 18:44:00 EDT, Dry Weight Start Date: 09/27/21 Stop Date: 03/26/22 Status: Orderedloratadine 10 mg oral tablet 1, tablet, By Mouth, Daily, # 90 tablet, Refills 1, Route to Pharmacy Electronically, [facility], 158, cm, 10/14/21 14:09:00 EDT, Height, 161, kg, 11/10/19 18:44:00 EDT, Dry Weight Start Date: 11/04/21 Status: Orderedomeprazole 20 mg oral enteric coated capsule 1 capsule = 20 mg, By Mouth, 2 times a day, for 90 days, # 180 capsule, 6 Refills, Physician Stop 04/27/23 14:10:00 EST, 08/05/21 14:10:00 EST, [facility], 158, cm, 08/05/21 13:35:00 EST, Height, 161, kg, 11/10/19 18:44:00 EDT, Dry... Start Date: 08/05/21 Stop Date: 04/27/23 Status: Orderedpadded toilet seat padded toilet seat, See Instructions, # 1 each, Refills 0, Tot. Refills 0, Maintenance, dx: buttock sores, 09/19/21 11:23:00 EDT, Supply Start Date: 09/19/21 Status: OrderedPen [place], 31 G x 8 mm BD Ultra [...] Gm, Refills 5, Route to Pharmacy Electronically, [id number], [facility], 158, cm, 04/29/21 11:38:00 EST, [...] Unsteady gait(Confirmed) Active Uses walker(Confirmed) Active 1iin [id number] the Suboxone program Social History Social History Type Response Smoking Status 5-9 cigarettes (between 1/4 to 1/2 pack)/day in last 30 days entered on: 08/05/21 Sex Female Care Team PersonnelName: Ray Cox NP Address: [address] [place] [address] [address] [place], [place] [address]
--- OUTSIDE RECORDS SUMMARY | 2022-05-26 16:45 | XMS_ITS | Continuity of Care Document ---
:[address] 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 [address] [place] [phone]- Allergies, Adverse Reactions, Alerts Substance Reaction Severity [...] H1N1, inactive(oldterm) 06/21/09 Recorde d 1Result Comment: [facility] [phone] Comment: [10/01/2015] per [id number] Comment: vis given Medications aspirin 81 mg oral delayed release tablet 81 mg, 1, tablet, By Mouth, Daily, do not crush or chew, # 30 tablet, Refills 11, Tot. Refills 11, Maintenance, 07/30/20 9:01:00 EST, Route to Pharmacy Electronically, [facility], 158, cm, 04/07/20 15:28:00 EST, Height, 161, kg, 06... Start Date: 07/30/20 Status: Orderedatorvastatin 80 mg oral tablet 1 tablet, By Mouth, Daily, NEEDS LABS BEFORE NEXT REFILL, # 30 tablet, 0 Refills, Maintenance, 05/13/21 13:25:00 EST, [facility], 158, cm, 04/29/21 11:38:00 [...] EST, Supply Start Date: 07/26/20 Status: OrderedFreeStyle [place] Lite kit FreeStyle [place] Lite kit, See Instructions, # 1 kit, [...] Maintenance, :11:00 EST, Route to Pharmacy Electronically, [facility]/pharmacy #[id number], Resent from 09/02/20, 158, cm, 10/08/20 11:23:00 [...] mL, 5 Refills, Maintenance, 08/26/20 16:38:00 EDT, [facility], 158, cm, 04/07/20 15:28:00 EST, Height, 161, kg, 11/10/19 18:44:0... Start Date: 08/26/20 Status: Orderedhydrochlorothiazide-lisinopril 25 mg-20 mg oral tablet 1 tablet, By Mouth, Daily, Labs and office visit needed for further refills., # 90 tablet, 0 Refills, Maintenance, 06/04/21 7:54:00 EST, [facility]/pharmacy #[id number], 90, Please ask patient to call [...] 05/19/21 11:48:00 EST, Route to Pharmacy Electronically, [facility]/pharmacy #[id number], 158, cm... Start Date: 05/19/21 Stop Date: 11/15/21 Status: OrderedLantus Solostar Pen 100 units/mL subcutaneous solution See Instructions, Take 54 units twice daily. E11.65, # 45 mL, 5 Refills, Maintenance, 03/21/21 19:37:00 EDT, [facility], 158, cm, 10/08/20 11:23:00 EDT, Height, 161, kg, 11/10/19 18:44:00 EDT, Dry Weight Start Date: 03/21/21 Status: Orderedlevothyroxine 0.2 mg oral tablet 1 tablet, By Mouth, Daily, NEEDS LABS BEFORE NEXT REFILL, # 30 tablet, 0 Refills, Maintenance, 05/13/21 13:24:00 EST, [facility], 158, cm, 04/29/21 11:38:00 EST, Height, 161, kg, 11/10/19 18:44:00 EDT, Dry Weight Start Date: 05/13/21 Stop Date: 06/12/21 Status: Orderedloratadine 10 mg oral tablet 1, tablet, By Mouth, Daily, # 90 tablet, Refills 1, Route to Pharmacy Electronically, [facility], 158, cm, 04/29/21 11:38:00 EST, Height, 161, kg, 11/10/19 18:44:00 EDT, Dry Weight Start Date: 05/13/21 Status: Orderedomeprazole 20 mg oral enteric coated capsule See Instructions, TAKE 1 CAPSULE BY MOUTH EVERY DAY 30 TO 60 MINUTES BEFORE BREAKFAST, # 30 capsule,2 Refills, [facility], 158, cm, 10/08/20 11:23:00 EDT, Height, 161, kg, 11/09/2017:44:00 EDT, Dry Weight Start Date: 04/10/21 Status: OrderedPen [place], 31 G x 8 mm BD Ultra [...] Gm, Refills 5, Route to Pharmacy Electronically, [id number], [facility], 158, cm, 04/29/21 11:38:00 [...] Unsteady gait(Confirmed) Active Uses walker(Confirmed) Active 1iin [id number] the Suboxone program Social History Social History Type Response Smoking Status Current every day smoker; Ty pe: Cigarettes; Other: 10 a day; entered on: 11/25/15 Sex Female
--- OUTSIDE RECORDS SUMMARY | 2022-05-26 16:45 | XMS_ITS | Continuity of Care Document ---
:1970 Author Organization [facility] Address [address] [place] [address]- Care Team Providers Name Role Phone Brooke JAVIER, Ray Mcleod Primary Care Physician Encounter [facility] Date(s): 01/13/20 - 02/12/20 [facility] [address] [place] [phone] [facility] Allergies, Adverse Reactions, Alerts Substance Reaction Severity [...] 23-valent vaccine3 11/22/10 Given 1Result Comment: [facility] [phone] Comment: [10/01/2015] per [id number] Comment: vis given Medications albuterol CFC free 90 mcg/inh inhalation aerosol 2, puffs, Inhalation, Every 4 hours, PRN, # 18 Gm, Refills 5, Tot. Refills 5, Maintenance, 01/13/20 11:29:00 EDT, Aerosol, Route to Pharmacy Electronically, [id number], [facility], 158, cm, 11/25/19 17:19:... Start Date: 01/13/20 Stop Date: 07/11/20 Status: Orderedaspirin 81 mg oral delayed release tablet 81 mg, 1, tablet, By Mouth, Daily, do not crush or chew, # 30 tablet, Refills 11, Tot. Refills 11, Maintenance, 08/13/19 11:18:00 EDT, Route to Pharmacy Electronically, [facility], 165, cm, 06/05/19 13:45:00 EST, Height Start Date: 08/13/19 Status: Orderedatorvastatin 80 mg oral tablet 1 tablet = 80 mg, By Mouth, Daily, # 90 tablet, 4 Refills, Maintenance, 06/05/19 14:25:00 EST, Tablet, [facility], 165, cm, 06/05/19 13:45:00 EST, Height Start Date: 06/05/19 Status: OrderedBARIATRIC WHEELCHAIR BARIATRIC WHEELCHAIR, See Instructions, # 1 each, Refills 0, Tot. Refills 0, Maintenance, WITH FOOT RESTS. DX UNSTEADY GAIT, LENGTH OF NEED:LIFETIME [facility] [id number], 08/04/19 15:18:00 EST, Compound Start Date: 08/04/19 [...] Maintenance, 01/05/2010:50:00 EDT, Route to Pharmacy Electronically, [facility], 158, cm, 11/25/19 17:19:00 EDT, Height, 161, kg, 11/10/19 18:44:00 EDT... Start Date: 01/06/20 Status: OrderedHumalog Kwik Pen 100 units/mL subcutaneous injection See Instructions, Max daily dose 70 units, take per sliding scale from office 3 times daily with meals. E11.65, # 30 mL, 5 Refills, Maintenance, 10/22/19 15:40:00 EDT, [facility], 165, cm, 06/05/19 13:45:00 EST, Height Start Date: 10/22/19 Status: Orderedhydrochlorothiazide-lisinopril 25 mg-20 mg oral tablet 1 tablet, By Mouth, Daily, # 90 tablet, 3 Refills, Maintenance, 06/05/19 14:24:00 EST, Tablet, [facility], 1 tablet [...] 01/26/20 15:33:00 EDT, Route to Pharmacy Electronically, [facility]... Start Date: 01/26/20 Stop Date: 07/24/20 Status: OrderedLantus Solostar Pen 100 units/mL subcutaneous solution See Instructions, Take 35 units twice daily. E11.65, # 30 mL, 5 Refills, Maintenance, 10/22/19 15:41:00 EDT, [facility], 165, cm, 06/05/19 13:45:00 EST, Height Start Date: 10/22/19 Status: Orderedlevothyroxine 0.2 mg oral tablet 1 tablet = 200 mcg, By Mouth, Daily, Labs needed prior to refills 09/04/2019. See 09/03 msg., # 90 tablet, 1 Refills, Maintenance, 09/04/19 16:38:00 EDT, Tablet, [facility], change in dose, 165, cm, 06/05/19 13:45:00 EST, Height Start Date: 09/04/19 Stop Date: 03/02/20 Status: Orderedloratadine 10 mg oral tablet 10 mg, 1, tablet, By Mouth, Daily, # 90 tablet, Refills 1, Tot. Refills 1, Maintenance, 12/09/19 9:24:00 EDT, Route to Pharmacy Electronically, [facility], 158, cm, 11/25/19 17:19:00 EDT, Height, 161, kg, 11/10/19 18:44:00 EDT, Dry... Start Date: 12/09/19 Stop Date: 06/06/20 Status: Orderedomeprazole 20 mg oral enteric coated capsule 1 capsule = 20 mg, By Mouth, Daily, take 1/2-1 hour before breakfast, # 30 capsule, 2 Refills, Maintenance, 01/06/20 9:48:00 EDT, EC Capsule, [facility], 158, cm, 11/25/19 17:19:00 EDT, Height, 161, kg, 11/10/19 18:44:00 EDT, Dry W... Start Date: 01/06/20 Status: OrderedPen [place], 31 G x 8 mm BD Ultra [...] Unsteady gait(Confirmed) Active Uses walker(Confirmed) Active 1iin [id number] the Suboxone program Social History Social History Type Response Smoking Status Current every day smoker; Ty pe: Cigarettes; Other: 10 a day; entered on: 11/25/15 Sex Female
--- OUTSIDE RECORDS SUMMARY | 2022-05-26 16:46 | XMS_ITS | Continuity of Care Document ---
:1970 Author Organization [facility] Address [address] [place] [address]- Care Team Providers Name Role Phone Brooke JAVIER, Ray Mcleod Primary Care Physician Encounter [facility] [place] Date(s): 05/09/19 - 06/18/19 [facility] [address] [place] [phone] [facility] Attending Physician: Not on Staff, Attending MD [...] Given 1Result Comment: [facility] [phone] Comment: [10/01/2015] per [id number] Comment: vis given Medications albuterol CFC free 90 mcg/inh inhalation aerosol 2, puffs, Inhalation, Every 4 hours, PRN, # 18 Gm, Refills 0, Tot. Refills 0, Maintenance, 06/10/19 9:01:00 EST, Aerosol, Route to Pharmacy Electronically, [id number], [facility] - , 165, cm, 06/05/19 13... Start Date: 06/10/19 Stop Date: 07/10/19 Status: Orderedaspirin 81 mg oral delayed release tablet 81 mg, 1, tablet, By Mouth, Daily, do not crush or chew, # 30 tablet, Refills 11, Tot. Refills 11, Maintenance, 08/01/18 12:28:09 EST, Route to Pharmacy Electronically, [id number], [facility] [...] RESTS. DX UNSTEADY GAIT, LENGTH OF NEED:LIFETIME [place] [address], 06/06/19 9:35:00 EST, Compound Start Date: 06/06/19 [...] units 3 times daily with meals. for [id number], # 30 mL, 0 Refills, Maintenance, 04/01/19 [...] 06/10/19 9:01:00 EST, Route to Pharmacy Electronically, [facility]... Start Date: 06/10/19 Stop Date: 07/10/19 Status: OrderedLantus Solostar Pen 100 units/mL subcutaneous solution = 90 units, Subcutaneous Injection, Daily at bedtime, keep appointment on 06/13/19 for further refills, # 15 mL, 2 Refills, Maintenance, 06/05/19 14:21:00 EST, [facility], 165, cm, 06/05/19 13:45:00 EST, Height Start [...] EC Capsule Start Date: 03/21/19 Status: OrderedPen [place], 31 G x 8 mm BD Ultra [...] Unsteady gait(Confirmed) Active Uses walker(Confirmed) Active 1iin [id number] the Suboxone program Social History Social History Type Response Smoking Status Current every day smoker; Ty pe: Cigarettes; Other: 10 a day; entered on: 11/25/15 Sex Female
--- OUTSIDE RECORDS SUMMARY | 2022-05-26 16:46 | XMS_ITS | Continuity of Care Document ---
:1970 Author Organization [facility] Address [address] [place] [address]- Care Team Providers Name Role Phone Brooke JAVIER, Ray Mcleod Primary Care Physician Encounter [facility] Date(s): 12/09/19 - 01/14/20 [facility] [address] [place] [phone]- [facility] Attending Physician: Yusuf Fonseca MD Admitting Physician: [...] pneumococcal 23-valent vaccine3 11/22/10 Given 1Result Comment: [facility] [phone] Comment: [10/01/2015] per [id number] Comment: vis given Medications albuterol CFC free 90 mcg/inh inhalation aerosol 2, puffs, Inhalation, Every 4 hours, PRN, # 18 Gm, Refills 5, Tot. Refills 5, Maintenance, 01/13/20 11:29:00 EDT, Aerosol, Route to Pharmacy Electronically, [id number], [facility], 158, cm, 11/25/19 17:19:... Start Date: 01/13/20 Stop Date: 07/11/20 Status: Orderedaspirin 81 mg oral delayed release tablet 81 mg, 1, tablet, By Mouth, Daily, do not crush or chew, # 30 tablet, Refills 11, Tot. Refills 11, Maintenance, 08/13/19 11:18:00 EDT, Route to Pharmacy Electronically, [facility] -, 165, cm, 06/05/19 13:45:00 EST, Height Start Date: 08/13/19 Status: Orderedatorvastatin 80 mg oral tablet 1 tablet = 80 mg, By Mouth, Daily, # 90 tablet, 4 Refills, Maintenance, 06/05/19 14:25:00 EST, Tablet, [facility] - , 165, cm, 06/05/19 13:45:00 EST, Height Start Date: 06/05/19 Status: OrderedBARIATRIC WHEELCHAIR BARIATRIC WHEELCHAIR, See Instructions, # 1 each, Refills 0, Tot. Refills 0, Maintenance, WITH FOOT RESTS. DX UNSTEADY GAIT, LENGTH OF NEED:LIFETIME [address], 08/04/19 15:18:00 EST, Compound Start Date: 08/04/19 [...] Maintenance, 01/05/2010:50:00 EDT, Route to Pharmacy Electronically, [facility], 158, cm, 11/25/19 17:19:00 EDT, Height, 161, kg, 11/10/19 18:44:00 EDT... Start Date: 01/06/20 Status: OrderedHumalog Kwik Pen 100 units/mL subcutaneous injection See Instructions, Max daily dose 70 units, take per sliding scale from office 3 times daily with meals. E11.65, # 30 mL, 5 Refills, Maintenance, 10/22/19 15:40:00 EDT, [facility], 165, cm, 06/05/19 13:45:00 EST, Height Start Date: 10/22/19 Status: Orderedhydrochlorothiazide-lisinopril 25 mg-20 mg oral tablet 1 tablet, By Mouth, Daily, # 90 tablet, 3 Refills, Maintenance, 06/05/19 14:24:00 EST, Tablet, [facility], 1 tablet By Mouth [...] 08/04/19 14:12:00 EST, Route to Pharmacy Electronically, [facility] Start Date: 08/04/19 Stop Date: 01/31/20 Status: OrderedLantus Solostar Pen 100 units/mL subcutaneous solution See Instructions, Take 35 units twice daily. E11.65, # 30 mL, 5 Refills, Maintenance, 10/22/19 15:41:00 EDT, [facility], 165, cm, 06/05/19 13:45:00 EST, Height Start Date: 10/22/19 Status: Orderedlevothyroxine 0.2 mg oral tablet 1 tablet = 200 mcg, By Mouth, Daily, Labs needed prior to refills 09/04/2019. See 09/03 msg., # 90 tablet, 1 Refills, Maintenance, 09/04/19 16:38:00 EDT, Tablet, [facility], change in dose, 165, cm, 06/05/19 13:45:00 EST, Height Start Date: 09/04/19 Stop Date: 03/02/20 Status: Orderedloratadine 10 mg oral tablet 10 mg, 1, tablet, By Mouth, Daily, # 90 tablet, Refills 1, Tot. Refills 1, Maintenance, 12/09/19 9:24:00 EDT, Route to Pharmacy Electronically, [facility], 158, cm, 11/25/19 17:19:00 EDT, Height, 161, kg, 11/10/19 18:44:00 EDT, Dry... Start Date: 12/09/19 Stop Date: 06/06/20 Status: Orderedomeprazole 20 mg oral enteric coated capsule 1 capsule = 20 mg, By Mouth, Daily, take 1/2-1 hour before breakfast, # 30 capsule, 2 Refills, Maintenance, 01/06/20 9:48:00 EDT, EC Capsule, [facility], 158, cm, 11/25/19 17:19:00 EDT, Height, 161, kg, 11/10/19 18:44:00 EDT, Dry W... Start Date: 01/06/20 Status: OrderedPen [place], 31 G x 8 mm BD Ultra [...] Unsteady gait(Confirmed) Active Uses walker(Confirmed) Active 1iin [id number] the Suboxone program Social History Social History Type Response Smoking Status Current every day smoker; Ty pe: Cigarettes; Other: 10 a day; entered on: 11/25/15 Sex Female
--- OUTSIDE RECORDS SUMMARY | 2022-05-26 16:46 | XMS_ITS | Continuity of Care Document ---
:1970 Author Organization [facility] Address [address] [place] [address]- Care Team Providers Name Role Phone Ray Cox NP Primary Care Physician Encounter [facility] Date(s): 07/10/19 - 09/13/[address] [address]- [facility] Attending Physician: Ray Cox NP Admitting Physician: [...] 11/22/10 Given 1Result Comment: [facility] [phone] Comment: [10/01/2015] per [id number] Comment: vis given Medications albuterol CFC free 90 mcg/inh inhalation aerosol 2, puffs, Inhalation, Every 4 hours, PRN, # 18 Gm, Refills 0, Tot. Refills 0, Maintenance, 06/10/19 9:01:00 EST, Aerosol, Route to Pharmacy Electronically, [id number], [facility] - , 165, cm, 06/05/19 13... Start Date: 06/10/19 Stop Date: 07/10/19 Status: Orderedaspirin 81 mg oral delayed release tablet 81 mg, 1, tablet, By Mouth, Daily, do not crush or chew, # 30 tablet, Refills 11, Tot. Refills 11, Maintenance, 08/13/19 11:18:00 EDT, Route to Pharmacy Electronically, [facility] -, 165, cm, 06/05/19 13:45:00 EST, Height Start Date: 08/13/19 Status: Orderedatorvastatin 80 mg oral tablet 1 tablet = 80 mg, By Mouth, Daily, # 90 tablet, 4 Refills, Maintenance, 06/05/19 14:25:00 EST, Tablet, [facility] - , 165, cm, 06/05/19 13:45:00 EST, Height Start Date: 06/05/19 Status: OrderedBARIATRIC WHEELCHAIR BARIATRIC WHEELCHAIR, See Instructions, # 1 each, Refills 0, Tot. Refills 0, Maintenance, WITH FOOT RESTS. DX UNSTEADY GAIT, LENGTH OF NEED:LIFETIME [address], 08/04/19 15:18:00 EST, Compound Start Date: 08/04/19 [...] 09/04/19 14:45:00 EDT, Route to Pharmacy Electronically, [facility], 165, cm, 06/05/19 13:45:00 EST, Height Start Date: 09/04/19 Status: OrderedHumalog Kwik Pen 100 units/mL subcutaneous injection See Instructions, inject up to 36 units 3 times daily with meals. for [id number], # 30 mL, 0 Refills, Maintenance, 04/01/19 11:21:31 EDT Start Date: 04/01/19 Status: Orderedhydrochlorothiazide-lisinopril 25 mg-20 mg oral tablet 1 tablet, By Mouth, Daily, # 90 tablet, 3 Refills, Maintenance, 06/05/19 14:24:00 EST, Tablet, [facility] - , 1 tablet By [...] 08/04/19 14:12:00 EST, Route to Pharmacy Electronically, [facility] Start Date: 08/04/19 Stop Date: 01/31/20 Status: OrderedLantus Solostar Pen 100 units/mL subcutaneous solution = 90 units, Subcutaneous Injection, Daily at bedtime, keep appointment on 06/13/19 for further refills, # 15 mL, 2 Refills, Maintenance, 06/05/19 14:21:00 EST, [facility], 165, cm, 06/05/19 13:45:00 EST, Height Start Date: 06/05/19 Status: Orderedlevothyroxine 0.2 mg oral tablet 1 tablet = 200 mcg, By Mouth, Daily, Labs needed prior to refills 09/04/2019. See 09/03 msg., # 90 tablet, 1 Refills, Maintenance, 09/04/19 16:38:00 EDT, Tablet, [facility], change in dose, 165, cm, 06/05/19 13:45:00 EST, Height Start Date: 09/04/19 Stop Date: 03/02/20 Status: Orderedloratadine 10 mg oral tablet 10 mg, 1, tablet, By Mouth, Daily, # 90 tablet, Refills 1, Tot. Refills 1, Maintenance, 06/17/19 11:16:00 EST, Route to Pharmacy Electronically, [facility], 165, cm, 06/05/19 13:45:00 EST, Height Start Date: 06/17/19 Stop Date: 12/14/19 Status: Orderedomeprazole 20 mg oral enteric coated capsule 1 capsule = 20 mg, By Mouth, Daily, take 1/2-1 hour before breakfast, # 30 capsule, 6 Refills, Maintenance, 03/21/19 13:55:13 EDT, EC Capsule Start Date: 03/21/19 Status: OrderedPen [place], 31 G x 8 mm BD Ultra [...] Unsteady gait(Confirmed) Active Uses walker(Confirmed) Active 1iin [id number] the Suboxone program Social History Social History Type Response Smoking Status Current every day smoker; Ty pe: Cigarettes; Other: 10 a day; entered on: 11/25/15 Sex Female
--- OUTSIDE RECORDS SUMMARY | 2022-05-26 16:46 | XMS_ITS | Continuity of Care Document ---
:1970 Author Organization [facility] Address [address] [place] [address]- Care Team Providers Name Role Phone Brooke HEAVY COIL WINDER, Ray Mcleod Primary Care Physician Encounter [facility] Date(s): 04/27/21 - 05/27/21 [facility] [address] [place] [address]- Allergies, Adverse Reactions, Alerts Substance Reaction Severity [...] H1N1, inactive(oldterm) 06/21/09 Recorde d 1Result Comment: [facility] [phone] Comment: [10/01/2015] per [id number] Comment: vis given Medications aspirin 81 mg oral delayed release tablet 81 mg, 1, tablet, By Mouth, Daily, do not crush or chew, # 30 tablet, Refills 11, Tot. Refills 11, Maintenance, 07/30/20 9:01:00 EST, Route to Pharmacy Electronically, [facility], 158, cm, 04/07/20 15:28:00 EST, Height, 161, kg, 06... Start Date: 07/30/20 Status: Orderedatorvastatin 80 mg oral tablet 1 tablet, By Mouth, Daily, NEEDS LABS BEFORE NEXT REFILL, # 30 tablet, 0 Refills, Maintenance, 05/13/21 13:25:00 EST, [facility], 158, cm, 04/29/21 [...] EST, Supply Start Date: 07/26/20 Status: OrderedFreeStyle [place] Lite kit FreeStyle [place] Lite kit, See Instructions, # 1 kit, [...] Maintenance, :11:00 EST, Route to Pharmacy Electronically, [facility]/pharmacy #[id number], Resent from 09/02/20, 158, cm, 10/08/20 11:23:00 EDT, Height, 161, kg, 11/10/19 18:44... Start Date: 04/11/21 Status: OrderedHEAVY DUTY WHEELCHAIR WITH FOOT REST HEAVY DUTY WHEELCHAIR WITH FOOT REST, See Instructions, # 1 each, Refills 0, Tot. Refills 0, Maintenance, DX UNSTEADY GAIT (R26.81) JANE: LIFETIME (99), 08/24/20 13:09:00 EDT, Compound Start Date: 08/24/20 Status: OrderedHusabrinaog Kwik Pen 100 units/mL subcutaneous injection See Instructions, Take 20 units wit breakfast, 15 units with lunch, 20 units with dinner. E11.65, # 30 mL, 5 Refills, Maintenance, 08/26/20 16:38:00 EDT, [facility], 158, cm, 04/07/20 15:28:00 EST, Height, 161, kg, 11/10/19 18:44:0... Start Date: 08/26/20 Status: Orderedhydrochlorothiazide-lisinopril 25 mg-20 mg oral tablet 1 tablet, By Mouth, Daily, # 90 tablet, 0 Refills, Maintenance, 03/08/21 14:32:00 EDT, Tablet, [facility]/pharmacy #[id number], 1 tablet By Mouth Daily,x90 [...] 05/19/21 11:48:00 EST, Route to Pharmacy Electronically, [facility]/pharmacy #[id number], 158, cm... Start Date: 05/19/21 [...] tablet, 0 Refills, Maintenance, 05/13/21 13:24:00 EST, [facility], 158, cm, 04/29/21 11:38:00 EST, Height, 161, kg, 11/10/19 18:44:00 EDT, Dry Weight Start Date: 05/13/21 Stop Date: 06/12/21 Status: Orderedloratadine 10 mg oral tablet 1, tablet, By Mouth, Daily, # 90 tablet, Refills 1, Route to Pharmacy Electronically, [facility], 158, cm, 04/29/21 11:38:00 EST, Height, 161, kg, 11/10/19 18:44:00 EDT, Dry Weight Start Date: 05/13/21 Status: Orderedomeprazole 20 mg oral enteric coated capsule See Instructions, TAKE 1 CAPSULE BY MOUTH EVERY DAY 30 TO 60 MINUTES BEFORE BREAKFAST, # 30 capsule,2 Refills, [facility], 158, cm, 10/08/20 11:23:00 EDT, Height, 161, kg, 11/09/2017:44:00 EDT, Dry Weight Start Date: 04/10/21 Status: OrderedPen [place], 31 G x 8 mm BD Ultra [...] Gm, Refills 5, Route to Pharmacy Electronically, [id number], [facility], 158, cm, 04/29/21 [...] Unsteady gait(Confirmed) Active Uses walker(Confirmed) Active 1iin [id number] the Suboxone program Social History Social History Type Response Smoking Status Current every day smoker; Ty pe: Cigarettes; Other: 10 a day; entered on: 11/25/15 Sex Female
--- OUTSIDE RECORDS SUMMARY | 2022-05-26 16:46 | XMS_ITS | Continuity of Care Document ---
:1970 Author Organization [facility] Address [address] [place] [address]- Care Team Providers Name Role Phone Brooke DISINTEGRATOR OPERATOR, Ray Mcleod Primary Care Phys[id number] Date[facility] 09/[facility]21 - 10/08/21 [facility] [address] [place] [address]- Attending Physician: Not on Staff, Attending MD Referring Physician: Nam CRUZ, Yenni Allergies, Adverse Reactions, [...] inactive(oldterm) 06/21/09 Recorde d 1Result Comment: NDC: [id number] Comment: [facility] [phone] Comment: [10/01/2015] per [id number] Comment: vis given Medications amLODIPine 5 mg oral tablet TAKE 1 TABLET BY MOUTH EVERY DAY Start Date: 09/15/21 Status: OrderedamLODIPine 5 mg oral tablet TAKE 1 TABLET BY MOUTH EVERY DAY Start Date: 09/15/21 Status: OrderedAspirin Low Dose 81 mg oral delayed release tablet 1 tablet, By Mouth, Daily, no CRUSH OR CHEW, # 30 tablet, 11 Refills, [facility], 158, cm, 04/29/21 11:38:00 EST, Height, 161, kg, 11/10/19 18:44:00 EDT, Dry Weight Start Date: 07/11/21 Status: Orderedatorvastatin 80 mg oral tablet 1 tablet, By Mouth, Daily, NEEDS LABS BEFORE NEXT REFILL, # 90 tablet, 1 Refills, Maintenance, 06/29/21 7:35:00 EST, [facility], 158, cm, 04/29/21 11:38:00 EST, [...] EST, Supply Start Date: 07/26/20 Status: OrderedFreeStyle [place] Lite kit FreeStyle [place] Lite kit, See Instructions, # 1 kit, [...] 5 Refills, Maintenance, 09/01/21 13:44:00 EDT, Tablet, [facility], Partial fill upon patient request [...] mL, 5 Refills, Maintenance, 08/31/21 13:03:00 EDT, [facility], 158, cm, 08/05/21 13:35:00 EST, [...] tablet, 1 Refills, Maintenance, 08/31/21 15:46:00 EDT, [facility], 90, 1 tablet By Mouth [...] 05/19/21 11:48:00 EST, Route to Pharmacy Electronically, [facility]/pharmacy #[id number], 158, cm... Start Date: 05/19/21 Stop Date: 11/15/21 Status: OrderedLantus Solostar Pen 100 units/mL subcutaneous solution See Instructions, Take 54 units twice daily. E11.65, # 45 mL, 5 Refills, Maintenance, 03/21/21 19:37:00 EDT, [facility], 158, cm, 10/08/20 11:23:00 EDT, Height, 161, kg, 11/10/19 18:44:00 EDT, Dry Weight Start Date: 03/21/21 Status: Orderedlevothyroxine 0.2 mg oral tablet 1 tablet, By Mouth, Daily, # 90 tablet, 1 Refills, Maintenance, 09/27/21 18:47:00 EDT, [facility], 158, cm, 09/15/21 16:09:00 EDT, Height, 161, kg, 11/10/19 18:44:00 EDT, Dry Weight Start Date: 09/27/21 Stop Date: 03/26/22 Status: Orderedloratadine 10 mg oral tablet 1, tablet, By Mouth, Daily, # 90 tablet, Refills 1, Route to Pharmacy Electronically, [facility], 158, cm, 04/29/21 11:38:00 EST, Height, 161, kg, 11/10/19 18:44:00 EDT, Dry Weight Start Date: 05/13/21 Status: Orderedomeprazole 20 mg oral enteric coated capsule 1 capsule = 20 mg, By Mouth, 2 times a day, for 90 days, # 180 capsule, 6 Refills, Physician Stop 04/27/23 14:10:00 EST, 08/05/21 14:10:00 EST, [facility], 158, cm, 08/05/21 13:35:00 EST, Height, 161, kg, 11/10/19 18:44:00 EDT, Dry... Start Date: 08/05/21 Stop Date: 04/27/23 Status: Orderedpadded toilet seat padded toilet seat, See Instructions, # 1 each, Refills 0, Tot. Refills 0, Maintenance, dx: buttock sores, 09/19/21 11:23:00 EDT, Supply Start Date: 09/19/21 Status: OrderedPen [place], 31 G x 8 mm BD Ultra [...] Gm, Refills 5, Route to Pharmacy Electronically, [id number], [facility], 158, cm, 04/29/21 11:38:00 EST, [...] Unsteady gait(Confirmed) Active Uses walker(Confirmed) Active 1iin [id number] the Suboxone program Social History Social History Type Response Smoking Status 5-9 cigarettes (between 1/4 to 1/2 pack)/day in last 30 days entered on: 08/05/21 Sex Female
--- OUTSIDE RECORDS SUMMARY | 2022-05-26 16:46 | XMS_ITS | Continuity of Care Document ---
:1970 Author Organization [facility] Address [address] [place] [address]- Care Team Providers Name Role Phone Ray Cox NP Primary Care Physician [id number] Date(s): 03/24/21 - 04/30/21 [facility] [address] [place] [address]- Attending Physician: Not on Staff, Attending MD Referring Physician: Ray Cox NP Allergies, [...] H1N1, inactive(oldterm) 06/21/09 Recorde d 1Result Comment: [facility] [phone] Comment: [10/01/2015] per [id number] Comment: vis given Medications aspirin 81 mg oral delayed release tablet 81 mg, 1, tablet, By Mouth, Daily, do not crush or chew, # 30 tablet, Refills 11, Tot. Refills 11, Maintenance, 07/30/20 9:01:00 EST, Route to Pharmacy Electronically, [facility], 158, cm, 04/07/20 15:28:00 EST, Height, 161, kg, 06... Start Date: 07/30/20 Status: Orderedatorvastatin 80 mg oral tablet 1 tablet = 80 mg, By Mouth, Daily, # 90 tablet, 1 Refills, Maintenance, 10/08/20 11:38:00 EDT, Tablet, [facility], 158, cm, 10/08/20 11:23:00 EDT, [...] Maintenance, :11:00 EST, Route to Pharmacy Electronically, [facility]/pharmacy #[id number], Resent from 09/02/20, 158, cm, 10/08/20 11:23:00 EDT, Height, 161, kg, 11/10/19 18:44... Start Date: 04/11/21 Status: OrderedHEAVY DUTY WHEELCHAIR WITH FOOT REST HEAVY DUTY WHEELCHAIR WITH FOOT REST, See Instructions, # 1 each, Refills 0, Tot. Refills 0, Maintenance, DX UNSTEADY GAIT (R26.81) JANE: LIFETIME (99), 08/24/20 13:09:00 EDT, Compound Start Date: 08/24/20 Status: OrderedJeremy Salazar Pen 100 units/mL subcutaneous injection See Instructions, Take 20 units wit breakfast, 15 units with lunch, 20 units with dinner. E11.65, # 30 mL, 5 Refills, Maintenance, 08/26/20 16:38:00 EDT, [facility], 158, cm, 04/07/20 15:28:00 EST, Height, 161, kg, 11/10/19 18:44:0... Start Date: 08/26/20 Status: Orderedhydrochlorothiazide-lisinopril 25 mg-20 mg oral tablet 1 tablet, By Mouth, Daily, # 90 tablet, 0 Refills, Maintenance, 03/08/21 14:32:00 EDT, Tablet, [facility]/pharmacy #[id number], 1 tablet By Mouth Daily,x90 [...] mL, 5 Refills, Maintenance, 03/21/21 19:37:00 EDT, [facility], 158, cm, 10/08/20 11:23:00 EDT, Height, 161, kg, 11/10/19 18:44:00 EDT, Dry Weight Start Date: 03/21/21 Status: Orderedlevothyroxine 0.2 mg oral tablet 1 tablet, By Mouth, Daily, # 90 tablet, 0 Refills, [facility], 158, cm, 10/08/2110:23:00 EDT, Height, 161, kg, 11/10/19 18:44:00 EDT, Dry Weight Start Date: 02/17/21 Status: Orderedloratadine 10 mg oral tablet 1, tablet, By Mouth, Daily, # 90 tablet, Refills 1, Tot. Refills 0, Maintenance, 11/21/20 20:30:00 EDT, Route to Pharmacy Electronically, [facility], 158, cm, 10/08/20 11:23:00 EDT,Height, 161, kg, 11/10/19 18:44:00 EDT, Dry Weight Start Date: 11/21/20 Status: Orderedomeprazole 20 mg oral enteric coated capsule See Instructions, TAKE 1 CAPSULE BY MOUTH EVERY DAY 30 TO 60 MINUTES BEFORE BREAKFAST, # 30 capsule,2 Refills, [facility], 158, cm, 10/08/20 11:23:00 EDT, Height, 161, kg, 11/09/2017:44:00 EDT, Dry Weight Start Date: 04/10/21 Status: OrderedPen [place], 31 G x 8 mm BD Ultra [...] Maintenance, 11/29/2109:15:00 EDT, Route to Pharmacy Electronically, [id number], [facility], 158, cm, 10/08/20 11:23:00 EDT,... [...] Unsteady gait(Confirmed) Active Uses walker(Confirmed) Active 1iin [id number] the Suboxone program Social History Social History Type Response Smoking Status Current every day smoker; Ty pe: Cigarettes; Other: 10 a day; entered on: 11/25/15 Sex Female
--- OUTSIDE RECORDS SUMMARY | 2022-05-26 16:46 | XMS_ITS | Continuity of Care Document ---
:1970 Author Organization [facility] Address [address] [place] [address]- Care Team Providers Name Role Phone Brooke JAVIER, Ray Mcleod Primary Care Physician En[place] [facility] [place] Date(s): 12/24/19 - 01/23/20 [facility] [address] [place] [id number]- [facility] Allergies, Adverse Reactions, Alerts Substance [...] [facility] [phone] Comment: [10/01/2015] per [id number] Comment: vis given Medications albuterol CFC free 90 mcg/inh inhalation aerosol 2, puffs, Inhalation, Every 4 hours, PRN, # 18 Gm, Refills 5, Tot. Refills 5, Maintenance, 01/13/20 11:29:00 EDT, Aerosol, Route to Pharmacy Electronically, [id number], [facility], 158, cm, 11/25/19 17:19:... Start Date: 01/13/20 Stop Date: 07/11/20 Status: Orderedaspirin 81 mg oral delayed release tablet 81 mg, 1, tablet, By Mouth, Daily, do not crush or chew, # 30 tablet, Refills 11, Tot. Refills 11, Maintenance, 08/13/19 11:18:00 EDT, Route to Pharmacy Electronically, [facility], 165, cm, 06/05/19 13:45:00 EST, Height Start Date: 08/13/19 Status: Orderedatorvastatin 80 mg oral tablet 1 tablet = 80 mg, By Mouth, Daily, # 90 tablet, 4 Refills, Maintenance, 06/05/19 14:25:00 EST, Tablet, [facility], 165, cm, 06/05/19 13:45:00 EST, Height Start Date: 06/05/19 Status: OrderedBARIATRIC WHEELCHAIR BARIATRIC WHEELCHAIR, See Instructions, # 1 each, Refills 0, Tot. Refills 0, Maintenance, WITH FOOT RESTS. DX UNSTEADY GAIT, LENGTH OF NEED:LIFETIME [facility] 4791, 08/04/19 15:18:00 EST, Compound Start Date: 08/04/19 [...] Maintenance, 01/05/2010:50:00 EDT, Route to Pharmacy Electronically, [facility], 158, cm, 11/25/19 17:19:00 EDT, Height, 161, kg, 11/10/19 18:44:00 EDT... Start Date: 01/06/20 Status: OrderedHumalog Kwik Pen 100 units/mL subcutaneous injection See Instructions, Max daily dose 70 units, take per sliding scale from office 3 times daily with meals. E11.65, # 30 mL, 5 Refills, Maintenance, 10/22/19 15:40:00 EDT, [facility], 165, cm, 06/05/19 13:45:00 EST, Height Start Date: 10/22/19 Status: Orderedhydrochlorothiazide-lisinopril 25 mg-20 mg oral tablet 1 tablet, By Mouth, Daily, # 90 tablet, 3 Refills, Maintenance, 06/05/19 14:24:00 EST, Tablet, [facility], 1 tablet [...] 08/04/19 14:12:00 EST, Route to Pharmacy Electronically, [facility] Start Date: 08/04/19 Stop Date: 01/31/20 Status: OrderedLantus Solostar Pen 100 units/mL subcutaneous solution See Instructions, Take 35 units twice daily. E11.65, # 30 mL, 5 Refills, Maintenance, 10/22/19 15:41:00 EDT, [facility], 165, cm, 06/05/19 13:45:00 EST, Height Start Date: 10/22/19 Status: Orderedlevothyroxine 0.2 mg oral tablet 1 tablet = 200 mcg, By Mouth, Daily, Labs needed prior to refills 09/04/2019. See 09/03 msg., # 90 tablet, 1 Refills, Maintenance, 09/04/19 16:38:00 EDT, Tablet, [facility], change in dose, 165, cm, 06/05/19 13:45:00 EST, Height Start Date: 09/04/19 Stop Date: 03/02/20 Status: Orderedloratadine 10 mg oral tablet 10 mg, 1, tablet, By Mouth, Daily, # 90 tablet, Refills 1, Tot. Refills 1, Maintenance, 12/09/19 9:24:00 EDT, Route to Pharmacy Electronically, [facility], 158, cm, 11/25/19 17:19:00 EDT, Height, 161, kg, 11/10/19 18:44:00 EDT, Dry... Start Date: 12/09/19 Stop Date: 06/06/20 Status: Orderedomeprazole 20 mg oral enteric coated capsule 1 capsule = 20 mg, By Mouth, Daily, take 1/2-1 hour before breakfast, # 30 capsule, 2 Refills, Maintenance, 01/06/20 9:48:00 EDT, EC Capsule, [facility], 158, cm, 11/25/19 17:19:00 EDT, Height, 161, kg, 11/10/19 18:44:00 EDT, Dry W... Start Date: 01/06/20 Status: OrderedPen [place], 31 G x 8 mm BD Ultra [...] Unsteady gait(Confirmed) Active Uses walker(Confirmed) Active 1iin [id number] the Suboxone program Social History Social History Type Response Smoking Status Current every day smoker; Ty pe: Cigarettes; Other: 10 a day; entered on: 11/25/15 Sex Female
--- OUTSIDE RECORDS SUMMARY | 2022-05-26 16:46 | XMS_ITS | Continuity of Care Document ---
:1970 Author Organization [facility] Adult Address [address] [place] [address]- Care Team Providers Name Role Phone Brooke JAVIER, Ray Mcleod Primary Care Physician Encounter [facility] [place] Date(s): 02/20/20 - 03/21/20 [facility] [address] [place] [address]- [facility] Attending Physician: Admkristen, [id number] Admitting Physician: Admtr, [id number] Referring Physician: Admtr, [...] 11/22/10 Given 1Result Comment: [facility] [phone] Comment: [10/01/2015] per [id number] Comment: vis given Medications albuterol CFC free 90 mcg/inh inhalation aerosol 2, puffs, Inhalation, Every 4 hours, PRN, # 18 Gm, Refills 5, Tot. Refills 5, Maintenance, 01/13/20 11:29:00 EDT, Aerosol, Route to Pharmacy Electronically, [id number], [facility], 158, cm, 11/25/19 17:19:... Start Date: 01/13/20 Stop Date: 07/11/20 Status: Orderedaspirin 81 mg oral delayed release tablet 81 mg, 1, tablet, By Mouth, Daily, do not crush or chew, # 30 tablet, Refills 11, Tot. Refills 11, Maintenance, 08/13/19 11:18:00 EDT, Route to Pharmacy Electronically, [facility], 165, cm, 06/05/19 13:45:00 EST, Height Start Date: 08/13/19 Status: Orderedatorvastatin 80 mg oral tablet 1 tablet = 80 mg, By Mouth, Daily, # 90 tablet, 4 Refills, Maintenance, 06/05/19 14:25:00 EST, Tablet, [facility], 165, cm, 06/05/19 13:45:00 EST, Height Start Date: 06/05/19 Status: OrderedBARIATRIC WHEELCHAIR BARIATRIC WHEELCHAIR, See Instructions, # 1 each, Refills 0, Tot. Refills 0, Maintenance, WITH FOOT RESTS. DX UNSTEADY GAIT, LENGTH OF NEED:LIFETIME [address], 08/04/19 15:18:00 EST, Compound Start Date: 08/04/19 [...] Route to Pharmacy Electronically, [facility], 158, cm, 11/25/19 17:19:00 EDT, Height, 161, kg, 11/10/19 18:44:00 EDT... Start Date: 01/06/20 Status: OrderedHumalog Kwik Pen 100 units/mL subcutaneous injection See Instructions, Max daily dose 70 units, take per sliding scale from office 3 times daily with meals. E11.65, # 30 mL, 5 Refills, Maintenance, 10/22/19 15:40:00 EDT, [facility], 165, cm, 06/05/19 13:45:00 EST, Height Start Date: 10/22/19 Status: Orderedhydrochlorothiazide-lisinopril 25 mg-20 mg oral tablet 1 tablet, By Mouth, Daily, # 90 tablet, 3 Refills, Maintenance, 06/05/19 14:24:00 EST, Tablet, [facility], 1 tablet By [...] Route to Pharmacy Electronically, [facility] Start Date: 01/26/20 Stop Date: 07/24/20 Status: OrderedLantus Solostar Pen 100 units/mL subcutaneous solution See Instructions, Take 35 units twice daily. E11.65, # 30 mL, 5 Refills, Maintenance, 10/22/19 15:41:00 EDT, [facility], 165, cm, 06/05/19 13:45:00 EST, Height Start Date: 10/22/19 Status: Orderedlevothyroxine 0.2 mg oral tablet 1 tablet = 200 mcg, By Mouth, Daily, # 90 tablet, 1 Refills, Maintenance, 03/02/20 16:38:00 EDT, Tablet, [facility], 158, cm, 11/25/19 17:19:00 EDT, Height, 161, kg, 11/10/19 18:44:00 EDT, Dry Weight Start Date: 03/02/20 Stop Date: 08/29/20 Status: Orderedloratadine 10 mg oral tablet 10 mg, 1, tablet, By Mouth, Daily, # 90 tablet, Refills 1, Tot. Refills 1, Maintenance, 12/09/19 9:24:00 EDT, Route to Pharmacy Electronically, [facility], 158, cm, 11/25/19 17:19:00 EDT, Height, 161, kg, 11/10/19 18:44:00 EDT, Dry... Start Date: 12/09/19 Stop Date: 06/06/20 Status: Orderedomeprazole 20 mg oral enteric coated capsule 1 capsule = 20 mg, By Mouth, Daily, take 1/2-1 hour before breakfast, # 30 capsule, 2 Refills, Maintenance, 01/06/20 9:48:00 EDT, EC Capsule, [facility], 158, cm, 11/25/19 17:19:00 EDT, Height, 161, kg, 11/10/19 18:44:00 EDT, Dry W... Start Date: 01/06/20 Status: OrderedPen [place], 31 G x 8 mm BD Ultra [...] Unsteady gait(Confirmed) Active Uses walker(Confirmed) Active 1iin [id number] the Suboxone program Social History Social History Type Response Smoking Status Current every day smoker; Ty pe: Cigarettes; Other: 10 a day; entered on: 11/25/15 Sex Female
--- OUTSIDE RECORDS SUMMARY | 2022-05-26 16:46 | XMS_ITS | Continuity of Care Document ---
:1970 Author Organization [facility] Adult Address [address] [place] [address]- Care Team Providers Name Role Phone Ray Cox NP Primary Care Physician Encounter [facility] [place] Date(s): 10/22/19 - 02/19/20 [facility] Adult [address] [place] [id number]- [facility] Attending Physician: Ray Cox NP Referring Physician: Yenni Browning MD Allergies, Adverse Reactions, Alerts Substance Reaction [...] 23-valent vaccine3 11/22/10 Given 1Result Comment: [facility] [phone] Comment: [10/01/2015] per [id number] Comment: vis given Medications albuterol CFC free 90 mcg/inh inhalation aerosol 2, puffs, Inhalation, Every 4 hours, PRN, # 18 Gm, Refills 5, Tot. Refills 5, Maintenance, 01/13/20 11:29:00 EDT, Aerosol, Route to Pharmacy Electronically, [id number], [facility], 158, cm, 11/25/19 17:19:... Start Date: 01/13/20 Stop Date: 2/7/21 Status: Orderedaspirin 81 mg oral delayed release tablet 81 mg, 1, tablet, By Mouth, Daily, do not crush or chew, # 30 tablet, Refills 11, Tot. Refills 11, Maintenance, 08/13/19 11:18:00 EDT, Route to Pharmacy Electronically, [facility], 165, cm, 06/05/19 13:45:00 EST, Height Start Date: 08/13/19 Status: Orderedatorvastatin 80 mg oral tablet 1 tablet = 80 mg, By Mouth, Daily, # 90 tablet, 4 Refills, Maintenance, 06/05/19 14:25:00 EST, Tablet, [facility] - , 165, cm, 06/05/19 13:45:00 EST, Height Start Date: 06/05/19 Status: OrderedBARIATRIC WHEELCHAIR BARIATRIC WHEELCHAIR, See Instructions, # 1 each, Refills 0, Tot. Refills 0, Maintenance, WITH FOOT RESTS. DX UNSTEADY GAIT, LENGTH OF NEED:LIFETIME [address], 08/04/19 15:18:00 EST, Compound Start Date: 08/04/19 [...] Maintenance, 01/05/2010:50:00 EDT, Route to Pharmacy Electronically, [facility], 158, cm, 11/25/19 17:19:00 EDT, Height, 161, kg, 11/10/19 18:44:00 EDT... Start Date: 01/06/20 Status: OrderedHumalog Kwik Pen 100 units/mL subcutaneous injection See Instructions, Max daily dose 70 units, take per sliding scale from office 3 times daily with meals. E11.65, # 30 mL, 5 Refills, Maintenance, 10/22/19 15:40:00 EDT, [facility], 165, cm, 06/05/19 13:45:00 EST, Height Start Date: 10/22/19 Status: Orderedhydrochlorothiazide-lisinopril 25 mg-20 mg oral tablet 1 tablet, By Mouth, Daily, # 90 tablet, 3 Refills, Maintenance, 06/05/19 14:24:00 EST, Tablet, [facility], 1 tablet By [...] 01/26/20 15:33:00 EDT, Route to Pharmacy Electronically, [facility] Start Date: 01/26/20 Stop Date: 07/24/20 Status: OrderedLantus Solostar Pen 100 units/mL subcutaneous solution See Instructions, Take 35 units twice daily. E11.65, # 30 mL, 5 Refills, Maintenance, 10/22/19 15:41:00 EDT, [facility], 165, cm, 06/05/19 13:45:00 EST, Height Start Date: 10/22/19 Status: Orderedlevothyroxine 0.2 mg oral tablet 1 tablet = 200 mcg, By Mouth, Daily, Labs needed prior to refills 09/04/2019. See 09/03 msg., # 90 tablet, 1 Refills, Maintenance, 09/04/19 16:38:00 EDT, Tablet, [facility], change in dose, 165, cm, 06/05/19 13:45:00 EST, Height Start Date: 09/04/19 Stop Date: 03/02/20 Status: Orderedloratadine 10 mg oral tablet 10 mg, 1, tablet, By Mouth, Daily, # 90 tablet, Refills 1, Tot. Refills 1, Maintenance, 12/09/19 9:24:00 EDT, Route to Pharmacy Electronically, [facility], 158, cm, 11/25/19 17:19:00 EDT, Height, 161, kg, 11/10/19 18:44:00 EDT, Dry... Start Date: 12/09/19 Stop Date: 06/06/20 Status: Orderedomeprazole 20 mg oral enteric coated capsule 1 capsule = 20 mg, By Mouth, Daily, take 1/2-1 hour before breakfast, # 30 capsule, 2 Refills, Maintenance, 01/06/20 9:48:00 EDT, EC Capsule, [facility], 158, cm, 11/25/19 17:19:00 EDT, Height, 161, kg, 11/10/19 18:44:00 EDT, Dry W... Start Date: 01/06/20 Status: OrderedPen [place], 31 G x 8 mm BD Ultra [...] Unsteady gait(Confirmed) Active Uses walker(Confirmed) Active 1iin [id number] the Suboxone program Social History Social History Type Response Smoking Status Current every day smoker; Ty pe: Cigarettes; Other: 10 a day; entered on: 11/25/15 Sex Female
--- OUTSIDE RECORDS SUMMARY | 2022-05-26 16:46 | XMS_ITS | Continuity of Care Document ---
:1970 Author Organization [facility] Address [address] [place] [address]- Care Team Providers Name Role Phone Brooke JAVIER, Ray Mcleod Primary Care Physician Encounter [facility] [place] Date(s): 10/22/19 - 12/27/19 [facility] [address] [place] [id number]- [facility] Attending Physician: Ivonne Fontaine MD [...] vaccine3 11/22/10 Given 1Result Comment: [facility] [phone] Comment: [10/01/2015] per [id number] Comment: vis given Medications albuterol CFC free 90 mcg/inh inhalation aerosol 2, puffs, Inhalation, Every 4 hours, PRN, # 18 Gm, Refills 5, Tot. Refills 5, Maintenance, 09/23/19 15:56:00 EDT, Aerosol, Route to Pharmacy Electronically, [id number], [facility], 165, cm, 06/05/19 13:45:... Start Date: 09/23/19 Stop Date: 03/21/20 Status: Orderedaspirin 81 mg oral delayed release tablet 81 mg, 1, tablet, By Mouth, Daily, do not crush or chew, # 30 tablet, Refills 11, Tot. Refills 11, Maintenance, 08/13/19 11:18:00 EDT, Route to Pharmacy Electronically, [facility], 165, cm, 06/05/19 13:45:00 EST, Height Start Date: 08/13/19 Status: Orderedatorvastatin 80 mg oral tablet 1 tablet = 80 mg, By Mouth, Daily, # 90 tablet, 4 Refills, Maintenance, 06/05/19 14:25:00 EST, Tablet, [facility], 165, cm, 06/05/19 13:45:00 EST, Height Start Date: 06/05/19 Status: OrderedBARIATRIC WHEELCHAIR BARIATRIC WHEELCHAIR, See Instructions, # 1 each, Refills 0, Tot. Refills 0, Maintenance, WITH FOOT RESTS. DX UNSTEADY GAIT, LENGTH OF NEED:LIFETIME [address], 08/04/19 15:18:00 EST, Compound Start Date: 08/04/19 [...] 12/08/19 9:44:00 EDT, Route to Pharmacy Electronically, [facility], 158, cm, 11/25/19 17:19:00 EDT, Height, 161, kg, 11/10/19 18:44... Start Date: 12/08/19 Status: OrderedHumalog Kwik Pen 100 units/mL subcutaneous injection See Instructions, Max daily dose 70 units, take per sliding scale from office 3 times daily with meals. E11.65, # 30 mL, 5 Refills, Maintenance, 10/22/19 15:40:00 EDT, [facility], 165, cm, 06/05/19 13:45:00 EST, Height Start Date: 10/22/19 Status: Orderedhydrochlorothiazide-lisinopril 25 mg-20 mg oral tablet 1 tablet, By Mouth, Daily, # 90 tablet, 3 Refills, Maintenance, 06/05/19 14:24:00 EST, Tablet, [facility], 1 tablet By Mouth [...] 08/04/19 14:12:00 EST, Route to Pharmacy Electronically, [facility] Start Date: 08/04/19 Stop Date: 01/31/20 Status: OrderedLantus Solostar Pen 100 units/mL subcutaneous solution See Instructions, Take 35 units twice daily. E11.65, # 30 mL, 5 Refills, Maintenance, 10/22/19 15:41:00 EDT, [facility], 165, cm, 06/05/19 13:45:00 EST, Height Start Date: 10/22/19 Status: Orderedlevothyroxine 0.2 mg oral tablet 1 tablet = 200 mcg, By Mouth, Daily, Labs needed prior to refills 09/04/2019. See 4 msg., # 90 tablet, 1 Refills, Maintenance, 09/04/19 16:38:00 EDT, Tablet, [facility], change in dose, 165, cm, 06/05/19 13:45:00 EST, Height Start Date: 09/04/19 Stop Date: 03/02/20 Status: Orderedloratadine 10 mg oral tablet 10 mg, 1, tablet, By Mouth, Daily, # 90 tablet, Refills 1, Tot. Refills 1, Maintenance, 12/09/19 9:24:00 EDT, Route to Pharmacy Electronically, [facility], 158, cm, 11/25/19 17:19:00 EDT, Height, 161, kg, 11/10/19 18:44:00 EDT, Dry... Start Date: 12/09/19 Stop Date: 06/06/20 Status: Orderedomeprazole 20 mg oral enteric coated capsule 1 capsule = 20 mg, By Mouth, Daily, take 1/2-1 hour before breakfast, # 30 capsule, 2 Refills, Maintenance, 10/06/19 14:57:00 EDT, EC Capsule, [facility], 165, cm, 06/05/19 13:45:00EST, Height Start Date: 10/06/19 Status: OrderedPen [place], 31 G x 8 mm BD Ultra [...] Unsteady gait(Confirmed) Active Uses walker(Confirmed) Active 1iin [id number] the Suboxone program Social History Social History Type Response Smoking Status Current every day smoker; Ty pe: Cigarettes; Other: 10 a day; entered on: 11/25/15 Sex Female
--- OUTSIDE RECORDS SUMMARY | 2022-05-26 16:46 | XMS_ITS | Continuity of Care Document ---
:1970 Author Organization [facility] Adult Address [address] [place] [address]- Care Team Providers Name Role Phone Brooke POSTAL SUPERVISOR, Ray Mcleod Primary Care Physician Encounter [facility] [place] Date(s): 07/26/20 - 08/25/20 [facility] [address] [place] [id number]- Allergies, Adverse Reactions, Alerts Substance Reaction Severity [...] pneumococcal 23-valent vaccine3 11/22/10 Given 1Result Comment: [facility] [phone] Comment: [10/01/2015] per [id number] Comment: vis given Medications albuterol CFC free 90 mcg/inh inhalation aerosol 2, puffs, Inhalation, Every 4 hours, PRN, # 18 Gm, Refills 5, Tot. Refills 5, Maintenance, 07/11/20 11:29:00 EST, Aerosol, Route to Pharmacy Electronically, [id number], [facility], 158, cm, 04/07/20 15:28:... Start Date: 07/11/20 Stop Date: 01/07/21 Status: Orderedaspirin 81 mg oral delayed release tablet 81 mg, 1, tablet, By Mouth, Daily, do not crush or chew, # 30 tablet, Refills 11, Tot. Refills 11, Maintenance, 07/30/20 9:01:00 EST, Route to Pharmacy Electronically, [facility], 158, cm, 04/07/20 15:28:00 EST, Height, 161, kg, 06... Start Date: 07/30/20 Status: Orderedatorvastatin 80 mg oral tablet 1 tablet = 80 mg, By Mouth, Daily, # 90 tablet, 1 Refills, Maintenance, 05/25/20 16:29:00 EST, Tablet, [facility], 158, cm, 04/07/20 15:28:00 EST, [...] Refills, Soft Stop, 04/07/20 16:10:00 EST, Tablet, [facility], 158, cm, 04/07/20 15:28:00 EST, [...] EDT, Route to Pharmacy Electronically, [facility], 158, cm, 11/25/19 17:19:00 EDT, Height, 161, kg, 11/10/19 18:44:00 EDT... Start Date: 01/06/20 Status: OrderedHEAVY DUTY WHEELCHAIR WITH FOOT REST HEAVY DUTY WHEELCHAIR WITH FOOT REST, See Instructions, # 1 each, Refills 0, Tot. Refills 0, Maintenance, DX UNSTEADY GAIT (R26.81) JANE: LIFETIME (99), 08/24/20 13:09:00 EDT, Compound Start Date: 08/24/20 Status: OrderedHudawit Tranik Pen 100 units/mL subcutaneous injection See Instructions, Max daily dose 70 units, take per sliding scale from office 3 times daily with meals. E11.65, # 30 mL, 5 Refills, Maintenance, 10/22/19 15:40:00 EDT, [facility], 165, cm, 06/05/19 13:45:00 EST, Height Start Date: 10/22/19 Status: Orderedhydrochlorothiazide-lisinopril 25 mg-20 mg oral tablet 1 tablet, By Mouth, Daily, # 90 tablet, 0 Refills, Maintenance, 05/25/20 16:29:00 EST, Tablet, [facility], 1 tablet By Mouth Daily, [...] units twice daily. E11.65, # 30 mL, 2 Refills, Maintenance, 06/24/20 13:25:00 EST, [facility], 158, cm, 04/07/20 15:28:00 EST, Height, 161, kg, 11/10/19 18:44:00 EDT, Dry Weight Start Date: 06/24/20 Status: Orderedlevothyroxine 0.2 mg oral tablet 1 tablet = 200 mcg, By Mouth, Daily, # 90 tablet, 1 Refills, Maintenance, 03/02/20 16:38:00 EDT, Tablet, [facility], 158, cm, 11/25/19 17:19:00 EDT, Height, 161, kg, 11/10/19 18:44:00 EDT, Dry Weight Start Date: 03/02/20 Stop Date: 08/29/20 Status: Orderedloratadine 10 mg oral tablet 10 mg, 1, tablet, By Mouth, Daily, # 90 tablet, Refills 1, Tot. Refills 1, Maintenance, 06/07/20 7:38:00 EST, Route to Pharmacy Electronically, [facility], 158, cm, 04/07/20 15:28:00 EST, Height, 161, kg, 11/10/19 18:44:00 EDT, Dry... Start Date: 06/07/20 Stop Date: 12/04/20 Status: Orderedomeprazole 20 mg oral enteric coated capsule 1 capsule = 20 mg, By Mouth, Daily, take 1/2-1 hour before breakfast, # 30 capsule, 2 Refills, Maintenance, 07/13/20 16:39:00 EST, EC Capsule, [facility], 158, cm, 04/07/20 15:28:00EST, Height, 161, kg, 11/10/19 18:44:00 EDT, Dry... Start Date: 07/13/20 Status: OrderedPen [place], 31 G x 8 mm BD Ultra [...] Unsteady gait(Confirmed) Active Uses walker(Confirmed) Active 1iin [id number] the Suboxone program Social History Social History Type Response Smoking Status Current every day smoker; Ty pe: Cigarettes; Other: 10 a day; entered on: 11/25/15 Sex Female
--- OUTSIDE RECORDS SUMMARY | 2022-05-26 16:46 | XMS_ITS | Continuity of Care Document ---
:1970 Author Organization [facility] Adult Address [address] [place] [address]- Care Team Providers Name Role Phone Brooke GRINDER SET UP OPERATOR CENTERLESS, Ray Mcleod Primary Care Physician Encounter [facility] [place] Date(s): 10/14/21 - 10/21/[address] [address]- Encounter Diagnosis Acute UTI (Discharge Diagnosis) - 10/14/21 Acute respiratory failure (Discharge Diagnosis) - 10/14/21 RADHIKA (acute kidney injury) (Discharge Diagnosis) - 10/14/21 Bilateral leg edema (Discharge Diagnosis) - 10/14/21 COPD (chronic obstructive pulmonary disease) (Discharge Diagnosis) - 10/14/21 Chronic respiratory failure (Discharge Diagnosis) - 10/14/21 Attending Physician: Yenni Browning MD Allergies, Adverse Reactions, [...] H1N1, inactive(oldterm) 06/21/09 Recorde d 1Result Comment: [facility]: [id number] Comment: formerly named [facility] [phone] Comment: [10/01/2015] per [id number] Comment: vis given Medications amLODIPine 5 mg oral tablet TAKE 1 TABLET BY MOUTH EVERY DAY Start Date: 09/15/21 Status: OrderedamLODIPine 5 mg oral tablet 1 tablet = 5 mg, By Mouth, Daily, TAKE 1 TABLET BY MOUTH EVERY DAY, # 90 tablet, 2 Refills, Maintenance, 10/14/21 17:06:00 EDT, Tablet, [facility], Partial fill upon patient requestif the prescription is for a schedule II opioid d... Start Date: 10/14/21 Stop Date: 07/11/22 Status: OrderedAspirin Low Dose 81 mg oral delayed release tablet 1 tablet, By Mouth, Daily, no CRUSH OR CHEW, # 30 tablet, 11 Refills, [facility], 158, cm, 04/29/21 11:38:00 EST, Height, 161, kg, 11/10/19 18:44:00 EDT, Dry Weight Start Date: 07/11/21 Status: Orderedatorvastatin 80 mg oral tablet 1 tablet, By Mouth, Daily, NEEDS LABS BEFORE NEXT REFILL, # 90 tablet, 1 Refills, Maintenance, 06/29/21 7:35:00 EST, [facility], 158, cm, 04/29/21 11:38:00 [...] EST, Supply Start Date: 07/26/20 Status: OrderedFreeStyle [place] Lite kit FreeStyle [place] Lite kit, See Instructions, # 1 kit, [...] 10/14/21 17:05:00 EDT, Route to Pharmacy Electronically, [facility], Par... Start Date: 10/14/21 Stop Date: 11/13/21 Status: Orderedgabapentin 600 mg oral tablet 1 tablet = 600 mg, By Mouth, 3 times a day, # 90 tablet, 5 Refills, Maintenance, 09/01/21 13:44:00 EDT, Tablet, [facility], Partial fill upon patient [...] mL, 5 Refills, Maintenance, 08/31/21 13:03:00 EDT, [facility], 158, cm, 08/05/21 13:35:00 [...] tablet, 1 Refills, Maintenance, 08/31/21 15:46:00 EDT, [facility], 90, 1 tablet By [...] 05/19/21 11:48:00 EST, Route to Pharmacy Electronically, [id number], 158, cm... Start Date: 05/19/21 Stop Date: 11/15/21 Status: OrderedLantus Solostar Pen 100 units/mL subcutaneous solution See Instructions, Take 54 units twice daily. E11.65, # 45 mL, 5 Refills, Maintenance, 03/21/21 19:37:00 EDT, [facility], 158, cm, 10/08/20 11:23:00 EDT, Height, 161, kg, 11/10/19 18:44:00 EDT, Dry Weight Start Date: 03/21/21 Status: Orderedlevothyroxine 0.2 mg oral tablet 1 tablet, By Mouth, Daily, # 90 tablet, 1 Refills, Maintenance, 09/27/21 18:47:00 EDT, [facility], 158, cm, 09/15/21 16:09:00 EDT, Height, 161, kg, 11/10/19 18:44:00 EDT, Dry Weight Start Date: 09/27/21 Stop Date: 03/26/22 Status: Orderedloratadine 10 mg oral tablet 1, tablet, By Mouth, Daily, # 90 tablet, Refills 1, Route to Pharmacy Electronically, [facility], 158, cm, 04/29/21 11:38:00 EST, Height, 161, kg, 11/10/19 18:44:00 EDT, Dry Weight Start Date: 05/13/21 Status: Orderedomeprazole 20 mg oral enteric coated capsule 1 capsule = 20 mg, By Mouth, 2 times a day, for 90 days, # 180 capsule, 6 Refills, Physician Stop 04/27/23 14:10:00 EST, 08/05/21 14:10:00 EST, [facility], 158, cm, 08/05/21 13:35:00 EST, Height, 161, kg, 11/10/19 18:44:00 EDT, Dry... Start Date: 08/05/21 Stop Date: 04/27/23 Status: Orderedpadded toilet seat padded toilet seat, See Instructions, # 1 each, Refills 0, Tot. Refills 0, Maintenance, dx: buttock sores, 09/19/21 11:23:00 EDT, Supply Start Date: 09/19/21 Status: OrderedPen [place], 31 G x 8 mm BD Ultra [...] Gm, Refills 5, Route to Pharmacy Electronically, [id number], [facility], 158, cm, 04/29/21 11:38:00 [...] Unsteady gait(Confirmed) Active Uses walker(Confirmed) Active 1iin [id number] the Suboxone program Diagnosis Diagnosis Type Effective Dates Health Clinical Infor mant Status Service Acute UTI Discharge 10/14/21 Diagnosis Acute respiratory Discharge 10/14/21 failure Diagnosis RADHIKA (acute kidney Discharge 10/14/21 injury) Diagnosis Bilateral leg Discharge 10/14/21 edema Diagnosis COPD (chronic Discharge 10/14/21 obstructive Diagnosis pulmonary disease) Chronic Discharge 10/14/21 respiratory Diagnosis failure Vital Signs Most recent to oldest [Reference Range]: 1 Height 158 cm (10/14/21 2:09 PM) Social History Social History Type Response Smoking Status 5-9 cigarettes (between 1/4 to 1/2 pack)/day in last 30 days entered on: 08/05/21 Sex Female
--- OUTSIDE RECORDS SUMMARY | 2022-05-26 16:46 | XMS_ITS | Continuity of Care Document ---
:1970 Author Organization [facility] Address [address] [place] [address]- Care Team Providers Name Role Phone Ray Cox NP Primary Care Physician Encounter [facility] Date(s): 06/05/19 - 06/05/[address] [address]- [facility] Attending Physician: Ray Cox NP Allergies, Adverse [...] pneumococcal 23-valent vaccine3 11/22/10 Given 1Result Comment: [facility] [phone] Comment: [10/01/2015] per [id number] Comment: vis given Medications albuterol CFC free 90 mcg/inh inhalation aerosol 2, puffs, Inhalation, Every 4 hours, PRN, # 18 Gm, Refills 0, Tot. Refills 0, Maintenance, 09/26/18 13:54:51 EDT, Aerosol, Route to Pharmacy Electronically, [id number], [facility] - Start Date: 09/26/18 Stop Date: 10/26/18 Status: Orderedaspirin 81 mg oral delayed release tablet 81 mg, 1, tablet, By Mouth, Daily, do not crush or chew, # 30 tablet, Refills 11, Tot. Refills 11, Maintenance, 08/01/18 12:28:09 EST, Route to Pharmacy Electronically, [id number], [facility] Start Date: 08/01/18 Status: Orderedatorvastatin 80 mg oral tablet 1 tablet = 80 mg, By Mouth, Daily, # 90 tablet, 4 Refills, Maintenance, 06/05/19 14:25:00 EST, Tablet, [facility], 165, cm, 06/05/19 13:45:00 EST, Height Start Date: 06/05/19 Status: OrderedBariatric seated walker Bariatric seated walker, See Instructions, # 1 each, Refills 0, Tot. Refills 0, Maintenance, Dx: Obesity, lethargy. Wt: 356 pounds., 04/02/17 11:26:17, Compound Start Date: 04/02/17 Status: OrderedBedpan See Instructions, # 1 each, [...] cm, 0... Start Date: 05/23/19 Status: Orderedgabapentin 100 mg oral capsule 200 mg, 2, capsule, By Mouth, 3 times a day, # 180 capsule, Refills 0, Tot. Refills 0, Maintenance, 06/05/19 14:19:00 EST, Route to Pharmacy Electronically, [facility], 165, cm, 06/05/19 13:45:00 EST, Height Start Date: 06/05/19 Status: OrderedGlucagon Emergency Kit See Instructions, # 1 kit, Maintenance, Use as instructed to treat severe low blood sugar reaction, 09/19/16 14:33:34, Dx E11.65, pt on insulin, Compound Start Date: 09/19/16 Status: OrderedHumalog Kwik Pen 100 units/mL subcutaneous injection See Instructions, inject up to 36 units 3 times daily with meals. for [id number], # 30 mL, 0 Refills, Maintenance, 04/01/19 11:21:31 EDT Start Date: 04/01/19 Status: Orderedhydrochlorothiazide-lisinopril 25 mg-20 mg oral tablet 1 tablet, By Mouth, Daily, # 90 tablet, 3 Refills, Maintenance, 06/05/19 14:24:00 EST, Tablet, [facility], 1 tablet By Mouth Daily, 165, cm, [...] mL, 2 Refills, Maintenance, 06/05/19 14:21:00 EST, [facility], 165, cm, 06/05/19 13:45:00 EST, Height Start Date: 06/05/19 Status: Orderedlevothyroxine 0.2 mg oral tablet 1 tablet = 200 mcg, By Mouth, Daily, Labs and appt. needed for future refills, # 90 tablet, 0 Refills, Maintenance, 06/05/19 14:25:00 EST, Tablet, [facility], change in dose, 165, cm, 06/05/19 13:45:00 EST, Height Start Date: 06/05/19 Stop Date: 07/05/19 Status: Orderedloratadine 10 mg oral tablet 10 mg, 1, tablet, By Mouth, Daily, # 30 tablet, Refills 5, Tot. Refills 5, Maintenance, 12/19/18 16:22:36 EDT, Route to Pharmacy Electronically, [id number], [facility] Start Date: 12/19/18 Status: Orderedomeprazole 20 mg oral enteric coated capsule 1 capsule = 20 mg, By Mouth, Daily, take 1/2-1 hour before breakfast, # 30 capsule, 6 Refills, Maintenance, 03/21/19 13:55:13 EDT, EC Capsule Start Date: 03/21/19 Status: OrderedPen [place], 31 G x 8 mm BD Ultra [...] Active Diabetic neuropathy(Confirmed) Active Nephropathy, diabetic(Confirmed) Active GERD (gastroesophageal reflux Active disease)(Confirmed) Heroin use(Confirmed)1 Active Hyperlipidemia(Confirmed) Active Hyperlipidemia(Confirmed) Active Hypertension(Confirmed) Active Hypothyroidism(Confirmed) Active Insomnia(Confirmed) Active Low back pain(Confirmed) Active Obesity(Confirmed) Active Narcotic dependence(Confirmed)2 Active Seasonal allergies(Confirmed) Active Tobacco abuse(Confirmed) Active Diabetes mellitus type 2 in Active obese(Confirmed) Unsteady gait(Confirmed) Active Uses walker(Confirmed) Active 1iin [id number] the Suboxone program Social History Social History Type Response Smoking Status Current every day smoker; Ty pe: Cigarettes; Other: 10 a day; entered on: 11/25/15 Sex Female
--- OUTSIDE RECORDS SUMMARY | 2022-05-26 16:46 | XMS_ITS | Continuity of Care Document ---
:1970 Author Organization [facility] Address [address] [place] [address]- Care Team Providers Name Role Phone Brooke SWITCHBOARD WIRER, Ray Mcleod Primary Care Physician En[place] [facility] [place] Date(s): 12/08/20 - 01/07/21 [facility] [address] [place] [id number]- Allergies, Adverse Reactions, Alerts Substance Reaction Severity [...] 1Result Comment: [facility] [phone] Comment: [10/01/2015] per [id number] Comment: vis given Medications aspirin 81 mg oral delayed release tablet 81 mg, 1, tablet, By Mouth, Daily, do not crush or chew, # 30 tablet, Refills 11, Tot. Refills 11, Maintenance, 07/30/20 9:01:00 EST, Route to Pharmacy Electronically, [facility], 158, cm, 04/07/20 15:28:00 EST, Height, 161, kg, 06... Start Date: 07/30/20 Status: Orderedatorvastatin 80 mg oral tablet 1 tablet = 80 mg, By Mouth, Daily, # 90 tablet, 1 Refills, Maintenance, 10/08/20 11:38:00 EDT, Tablet, [facility], 158, cm, 10/08/20 11:23:00 EDT, [...] Maintenance, 09/03/2113:19:00 EDT, Route to Pharmacy Electronically, [facility], Resent from 09/02/20, 158, cm, [...] mL, 5 Refills, Maintenance, 08/26/20 16:38:00 EDT, [facility], 158, cm, 04/07/20 15:28:00 EST, Height, 161, kg, 11/10/19 18:44:0... Start Date: 08/26/20 Status: Orderedhydrochlorothiazide-lisinopril 25 mg-20 mg oral tablet 1 tablet, By Mouth, Daily, # 90 tablet, 0 Refills, Maintenance, 12/08/20 9:05:00 EDT, Tablet, [facility]/pharmacy #[id number], 1 tablet By [...] 09/03/20 15:34:00 EDT, Route to Pharmacy Electronically, [facility] Start Date: 09/03/20 Stop Date: 03/02/21 Status: OrderedLantus Solostar Pen 100 units/mL subcutaneous solution See Instructions, Take 45 units twice daily. E11.65, # 30 mL, 5 Refills, Maintenance, 08/26/20 16:38:00 EDT, [facility], 158, cm, 04/07/20 15:28:00 EST, Height, 161, kg, 11/10/19 18:44:00 EDT, Dry Weight Start Date: 08/26/20 Status: Orderedlevothyroxine 0.2 mg oral tablet 1 tablet = 200 mcg, By Mouth, Daily, # 90 tablet, 1 Refills, Maintenance, 09/02/20 8:56:00 EDT, Tablet, [facility], 158, cm, 04/07/20 15:28:00 EST, Height, 161, kg, 11/10/19 18:44:00 EDT, Dry Weight Start Date: 09/02/20 Stop Date: 03/01/21 Status: Orderedloratadine 10 mg oral tablet 1, tablet, By Mouth, Daily, # 90 tablet, Refills 1, Tot. Refills 0, Maintenance, 11/21/20 20:30:00 EDT, Route to Pharmacy Electronically, [facility], 158, cm, 10/08/20 11:23:00 EDT,Height, 161, kg, 11/10/19 18:44:00 EDT, Dry Weight Start Date: 11/21/20 Status: Orderedomeprazole 20 mg oral enteric coated capsule 1 capsule = 20 mg, By Mouth, Daily, take 1/2-1 hour before breakfast, # 30 capsule, 5 Refills, Maintenance, 10/19/20 11:46:00 EDT, EC Capsule, [facility], 158, cm, 10/08/20 11:23:00EDT, Height, 161, kg, 11/10/19 18:44:00 EDT, Dry... Start Date: 10/19/20 Status: OrderedPen [place], 31 G x 8 mm BD Ultra [...] Maintenance, 11/29/2109:15:00 EDT, Route to Pharmacy Electronically, [id number], [facility], 158, cm, 10/08/20 11:23:00 EDT,... [...] Unsteady gait(Confirmed) Active Uses walker(Confirmed) Active 1iin [id number] the Suboxone program Social History Social History Type Response Smoking Status Current every day smoker; Ty pe: Cigarettes; Other: 10 a day; entered on: 11/25/15 Sex Female
--- OUTSIDE RECORDS SUMMARY | 2022-05-26 16:46 | XMS_ITS | Continuity of Care Document ---
:1970 Author Organization [facility] Address [address] [place] [phone]- Care Team Providers Name Role Phone Brooke JAVIER, Ray Mcleod Primary Care Physician [place] [facility] [place] Date(s): 01/15/20 - 02/14/20 [facility] [address] [place] [id number]- [facility] Attending Physician: Ananth Herrera Admitting Physician: AdmAnanth [...] Given 1Result Comment: [facility] [phone] Comment: [10/01/2015] per [id number] Comment: vis given Medications albuterol CFC free 90 mcg/inh inhalation aerosol 2, puffs, Inhalation, Every 4 hours, PRN, # 18 Gm, Refills 5, Tot. Refills 5, Maintenance, 01/13/20 11:29:00 EDT, Aerosol, Route to Pharmacy Electronically, [id number], [facility], 158, cm, 11/25/19 17:19:... Start Date: 01/13/20 Stop Date: 07/11/20 Status: Orderedaspirin 81 mg oral delayed release tablet 81 mg, 1, tablet, By Mouth, Daily, do not crush or chew, # 30 tablet, Refills 11, Tot. Refills 11, Maintenance, 08/13/19 11:18:00 EDT, Route to Pharmacy Electronically, [facility] -, 165, cm, 06/05/19 13:45:00 EST, Height Start Date: 08/13/19 Status: Orderedatorvastatin 80 mg oral tablet 1 tablet = 80 mg, By Mouth, Daily, # 90 tablet, 4 Refills, Maintenance, 06/05/19 14:25:00 EST, Tablet, [facility] - , 165, cm, 06/05/19 13:45:00 EST, Height Start Date: 06/05/19 Status: OrderedBARIATRIC WHEELCHAIR BARIATRIC WHEELCHAIR, See Instructions, # 1 each, Refills 0, Tot. Refills 0, Maintenance, WITH FOOT RESTS. DX UNSTEADY GAIT, LENGTH OF NEED:LIFETIME [address], 08/04/19 15:18:00 EST, Compound Start Date: 08/04/19 [...] Maintenance, 01/05/2010:50:00 EDT, Route to Pharmacy Electronically, [facility], 158, cm, 11/25/19 17:19:00 EDT, Height, 161, kg, 11/10/19 18:44:00 EDT... Start Date: 01/06/20 Status: OrderedHumalog Kwik Pen 100 units/mL subcutaneous injection See Instructions, Max daily dose 70 units, take per sliding scale from office 3 times daily with meals. E11.65, # 30 mL, 5 Refills, Maintenance, 10/22/19 15:40:00 EDT, [facility], 165, cm, 06/05/19 13:45:00 EST, Height Start Date: 10/22/19 Status: Orderedhydrochlorothiazide-lisinopril 25 mg-20 mg oral tablet 1 tablet, By Mouth, Daily, # 90 tablet, 3 Refills, Maintenance, 06/05/19 14:24:00 EST, Tablet, [facility], 1 tablet By [...] 01/26/20 15:33:00 EDT, Route to Pharmacy Electronically, [facility] Start Date: 01/26/20 Stop Date: 07/24/20 Status: OrderedLantus Solostar Pen 100 units/mL subcutaneous solution See Instructions, Take 35 units twice daily. E11.65, # 30 mL, 5 Refills, Maintenance, 10/22/19 15:41:00 EDT, [facility], 165, cm, 06/05/19 13:45:00 EST, Height Start Date: 10/22/19 Status: Orderedlevothyroxine 0.2 mg oral tablet 1 tablet = 200 mcg, By Mouth, Daily, Labs needed prior to refills 09/04/2019. See 09/03 msg., # 90 tablet, 1 Refills, Maintenance, 09/04/19 16:38:00 EDT, Tablet, [facility], change in dose, 165, cm, 06/05/19 13:45:00 EST, Height Start Date: 09/04/19 Stop Date: 03/02/20 Status: Orderedloratadine 10 mg oral tablet 10 mg, 1, tablet, By Mouth, Daily, # 90 tablet, Refills 1, Tot. Refills 1, Maintenance, 12/09/19 9:24:00 EDT, Route to Pharmacy Electronically, [facility], 158, cm, 11/25/19 17:19:00 EDT, Height, 161, kg, 11/10/19 18:44:00 EDT, Dry... Start Date: 12/09/19 Stop Date: 06/06/20 Status: Orderedomeprazole 20 mg oral enteric coated capsule 1 capsule = 20 mg, By Mouth, Daily, take 1/2-1 hour before breakfast, # 30 capsule, 2 Refills, Maintenance, 01/06/20 9:48:00 EDT, EC Capsule, [facility], 158, cm, 11/25/19 17:19:00 EDT, Height, 161, kg, 11/10/19 18:44:00 EDT, Dry W... Start Date: 01/06/20 Status: OrderedPen [place], 31 G x 8 mm BD Ultra [...] Unsteady gait(Confirmed) Active Uses walker(Confirmed) Active 1iin [id number] the Suboxone program Social History Social History Type Response Smoking Status Current every day smoker; Ty pe: Cigarettes; Other: 10 a day; entered on: 11/25/15 Sex Female
--- OUTSIDE RECORDS SUMMARY | 2022-05-26 16:46 | XMS_ITS | Continuity of Care Document ---
:1970 Author [address] [facility] Address [address] [place] [address]- Care Team Providers Name Role Phone Brooke JAVIER, Ray Mcleod Primary Care Physician [place] [facility] [place](s): 04/29/19 - 06/06/[address] [facility] [address] [place] [address]- [facility] Attending Physician: Ray Cox NP Allergies, Adverse [...] pneumococcal 23-valent vaccine3 11/22/10 Given 1Result Comment: [facility] [phone] Comment: [10/01/2015] per [id number] Comment: vis given Medications albuterol CFC free 90 mcg/inh inhalation aerosol 2, puffs, Inhalation, Every 4 hours, PRN, # 18 Gm, Refills 0, Tot. Refills 0, Maintenance, 09/26/18 13:54:51 EDT, Aerosol, Route to Pharmacy Electronically, [id number], [facility] - Start Date: 09/26/18 Stop Date: 10/26/18 Status: Orderedaspirin 81 mg oral delayed release tablet 81 mg, 1, tablet, By Mouth, Daily, do not crush or chew, # 30 tablet, Refills 11, Tot. Refills 11, Maintenance, 08/01/18 12:28:09 EST, Route to Pharmacy Electronically, [id number], [facility] Start Date: 08/01/18 Status: Orderedatorvastatin 80 mg oral tablet 1 tablet = 80 mg, By Mouth, Daily, # 90 tablet, 4 Refills, Maintenance, 06/05/19 14:25:00 EST, Tablet, [facility], 165, cm, 06/05/19 13:45:00 EST, Height [...] RESTS. DX UNSTEADY GAIT, LENGTH OF NEED:LIFETIME [place] [address], 06/06/19 9:35:00 EST, Compound Start Date: 06/06/19 [...] 06/05/19 14:19:00 EST, Route to Pharmacy Electronically, [facility], 165, cm, 06/05/19 13:45:00 [...] units 3 times daily with meals. for [id number], # 30 mL, 0 Refills, Maintenance, 04/01/19 11:21:31 EDT Start Date: 04/01/19 Status: Orderedhydrochlorothiazide-lisinopril 25 mg-20 mg oral tablet 1 tablet, By Mouth, Daily, # 90 tablet, 3 Refills, Maintenance, 06/05/19 14:24:00 EST, Tablet, [facility], 1 tablet By Mouth Daily, 165, cm, [...] mL, 2 Refills, Maintenance, 06/05/19 14:21:00 EST, [facility], 165, cm, 06/05/19 13:45:00 EST, Height Start Date: 06/05/19 Status: Orderedlevothyroxine 0.2 mg oral tablet 1 tablet = 200 mcg, By Mouth, Daily, Labs and appt. needed for future refills, # 90 tablet, 0 Refills, Maintenance, 06/05/19 14:25:00 EST, Tablet, [facility], change in dose, 165, cm, 06/05/19 13:45:00 EST, Height Start Date: 06/05/19 Stop Date: 07/05/19 Status: Orderedloratadine 10 mg oral tablet 10 mg, 1, tablet, By Mouth, Daily, # 30 tablet, Refills 5, Tot. Refills 5, Maintenance, 12/19/18 16:22:36 EDT, Route to Pharmacy Electronically, [id number], [facility] - Start Date: 12/19/18 Status: Orderedomeprazole 20 mg oral enteric coated capsule 1 capsule = 20 mg, By Mouth, Daily, take 1/2-1 hour before breakfast, # 30 capsule, 6 Refills, Maintenance, 03/21/19 13:55:13 EDT, EC Capsule Start Date: 03/21/19 Status: OrderedPen [place], 31 G x 8 mm BD Ultra [...] Unsteady gait(Confirmed) Active Uses walker(Confirmed) Active 1iin [id number] the Suboxone program Social History Social History Type Response Smoking Status Current every day smoker; Ty pe: Cigarettes; Other: 10 a day; entered on: 11/25/15 Sex Female
--- OUTSIDE RECORDS SUMMARY | 2022-05-26 16:46 | XMS_ITS | Continuity of Care Document ---
:1970 Author Organization [facility] Address [address] [place] [address]- Care Team Providers Name Role Phone Brooke ESTHETICIAN SPA, Ray Mcleod Primary Care Physician [place] [facility] [place] 04/26/21 - 05/26/21 [facility] [address] [place] [phone]- Allergies, Adverse Reactions, Alerts Substance Reaction Severity [...] H1N1, inactive(oldterm) 06/21/09 Recorde d 1Result Comment: [facility] [phone] Comment: [10/01/2015] per [id number] Comment: vis given Medications aspirin 81 mg oral delayed release tablet 81 mg, 1, tablet, By Mouth, Daily, do not crush or chew, # 30 tablet, Refills 11, Tot. Refills 11, Maintenance, 07/30/20 9:01:00 EST, Route to Pharmacy Electronically, [facility], 158, cm, 04/07/20 15:28:00 EST, Height, 161, kg, 06... Start Date: 07/30/20 Status: Orderedatorvastatin 80 mg oral tablet 1 tablet, By Mouth, Daily, NEEDS LABS BEFORE NEXT REFILL, # 30 tablet, 0 Refills, Maintenance, 05/13/21 13:25:00 EST, [facility], 158, cm, 04/29/21 11:38:00 EST, [...] EST, Supply Start Date: 07/26/20 Status: OrderedFreeStyle [place] Lite kit FreeStyle [place]ester Lite kit, See Instructions, # 1 kit, [...] Maintenance, :11:00 EST, Route to Pharmacy Electronically, [facility]/pharmacy #[id number], Resent from 09/02/20, 158, cm, 10/08/20 11:23:00 [...] mL, 5 Refills, Maintenance, 08/26/20 16:38:00 EDT, [facility], 158, cm, 04/07/20 15:28:00 EST, Height, 161, kg, 11/10/19 18:44:0... Start Date: 08/26/20 Status: Orderedhydrochlorothiazide-lisinopril 25 mg-20 mg oral tablet 1 tablet, By Mouth, Daily, # 90 tablet, 0 Refills, Maintenance, 03/08/21 14:32:00 EDT, Tablet, [facility]/pharmacy #[id number], 1 tablet By Mouth Daily,x90 [...] 05/19/21 11:48:00 EST, Route to Pharmacy Electronically, [facility]/pharmacy #[id number], 158, cm... Start Date: 05/19/21 Stop Date: 11/15/21 Status: OrderedLantus Solostar Pen 100 units/mL subcutaneous solution See Instructions, Take 54 units twice daily. E11.65, # 45 mL, 5 Refills, Maintenance, 03/21/21 19:37:00 EDT, [facility], 158, cm, 10/08/20 11:23:00 EDT, Height, 161, kg, 11/10/19 18:44:00 EDT, Dry Weight Start Date: 03/21/21 Status: Orderedlevothyroxine 0.2 mg oral tablet 1 tablet, By Mouth, Daily, NEEDS LABS BEFORE NEXT REFILL, # 30 tablet, 0 Refills, Maintenance, 05/13/21 13:24:00 EST, [facility], 158, cm, 04/29/21 11:38:00 EST, Height, 161, kg, 11/10/19 18:44:00 EDT, Dry Weight Start Date: 05/13/21 Stop Date: 06/12/21 Status: Orderedloratadine 10 mg oral tablet 1, tablet, By Mouth, Daily, # 90 tablet, Refills 1, Route to Pharmacy Electronically, [facility], 158, cm, 04/29/21 11:38:00 EST, Height, 161, kg, 11/10/19 18:44:00 EDT, Dry Weight Start Date: 05/13/21 Status: Orderedomeprazole 20 mg oral enteric coated capsule See Instructions, TAKE 1 CAPSULE BY MOUTH EVERY DAY 30 TO 60 MINUTES BEFORE BREAKFAST, # 30 capsule,2 Refills, [facility], 158, cm, 10/08/20 11:23:00 EDT, Height, 161, kg, 11/09/2017:44:00 EDT, Dry Weight Start Date: 04/10/21 Status: OrderedPen [place], 31 G x 8 mm BD Ultra [...] Gm, Refills 5, Route to Pharmacy Electronically, [id number], [facility], 158, cm, 04/29/21 11:38:00 EST, [...] Unsteady gait(Confirmed) Active Uses walker(Confirmed) Active 1iin [id number] the Suboxone program Social History Social History Type Response Smoking Status Current every day smoker; Ty pe: Cigarettes; Other: 10 a day; entered on: 11/25/15 Sex Female
--- OUTSIDE RECORDS SUMMARY | 2022-05-26 16:47 | XMS_ITS | Continuity of Care Document ---
:1970 Author Organization [facility] Address [address] [place] [address]- Care Team Providers Name Role Phone Brooke JAVIER, Ray Mcleod Primary Care Physician Encounter [facility] [place] Date(s): 06/20/19 - 08/10/19 [facility] [address] [place] [phone]- [facility] Attending Physician: Ivonne Fontaine MD Admitting [...] Comment: [facility] [phone] Comment: [10/01/2015] per [id number] Comment: vis given Medications albuterol CFC free 90 mcg/inh inhalation aerosol 2, puffs, Inhalation, Every 4 hours, PRN, # 18 Gm, Refills 0, Tot. Refills 0, Maintenance, 06/10/19 9:01:00 EST, Aerosol, Route to Pharmacy Electronically, [id number], [facility] - , 165, cm, 06/05/19 13... Start Date: 06/10/19 Stop Date: 2/6/20 Status: Orderedaspirin 81 mg oral delayed release tablet 81 mg, 1, tablet, By Mouth, Daily, do not crush or chew, # 30 tablet, Refills 11, Tot. Refills 11, Maintenance, 08/01/18 12:28:09 EST, Route to Pharmacy Electronically, [id number], [facility] Start Date: 08/01/18 Status: Orderedatorvastatin 80 mg oral tablet 1 tablet = 80 mg, By Mouth, Daily, # 90 tablet, 4 Refills, Maintenance, 06/05/19 14:25:00 EST, Tablet, [facility], 165, cm, 06/05/19 13:45:00 EST, Height Start Date: 06/05/19 Status: OrderedBARIATRIC WHEELCHAIR BARIATRIC WHEELCHAIR, See Instructions, # 1 each, Refills 0, Tot. Refills 0, Maintenance, WITH FOOT RESTS. DX UNSTEADY GAIT, LENGTH OF NEED:LIFETIME [place] [id number], 08/04/19 15:18:00 EST, Compound Start Date: 08/04/19 [...] 06/10/19 17:33:00 EST, Route to Pharmacy Electronically, [facility] - , 165, cm, 06/05/19 13:45:00 EST, Height Start Date: 06/10/19 Status: OrderedHumalog Kwik Pen 100 units/mL subcutaneous injection See Instructions, inject up to 36 units 3 times daily with meals. for [id number], # 30 mL, 0 Refills, Maintenance, 04/01/19 11:21:31 EDT Start Date: 04/01/19 Status: Orderedhydrochlorothiazide-lisinopril 25 mg-20 mg oral tablet 1 tablet, By Mouth, Daily, # 90 tablet, 3 Refills, Maintenance, 06/05/19 14:24:00 EST, Tablet, [facility] - , 1 tablet By [...] 08/04/19 14:12:00 EST, Route to Pharmacy Electronically, [facility] Start Date: 08/04/19 Stop Date: 01/31/20 Status: OrderedLantus Solostar Pen 100 units/mL subcutaneous solution = 90 units, Subcutaneous Injection, Daily at bedtime, keep appointment on 06/13/19 for further refills, # 15 mL, 2 Refills, Maintenance, 06/05/19 14:21:00 EST, [facility] - , 165, cm, 06/05/19 13:45:00 EST, Height Start Date: 06/05/19 Status: Orderedlevothyroxine 0.2 mg oral tablet 1 tablet = 200 mcg, By Mouth, Daily, Labs and appt. needed for future refills, # 90 tablet, 0 Refills, Maintenance, 06/05/19 14:25:00 EST, Tablet, [facility] - , change in dose, 165, cm, 06/05/19 13:45:00 EST, Height Start Date: 06/05/19 Stop Date: 07/05/19 Status: Orderedloratadine 10 mg oral tablet 10 mg, 1, tablet, By Mouth, Daily, # 90 tablet, Refills 1, Tot. Refills 1, Maintenance, 06/17/19 11:16:00 EST, Route to Pharmacy Electronically, [facility] [place], 165, cm, 06/05/19 13:45:00 EST, Height Start Date: 06/17/19 Stop Date: 12/14/19 Status: Orderedomeprazole 20 mg oral enteric coated capsule 1 capsule = 20 mg, By Mouth, Daily, take 1/2-1 hour before breakfast, # 30 capsule, 6 Refills, Maintenance, 03/21/19 13:55:13 EDT, EC Capsule Start Date: 03/21/19 Status: OrderedPen [place], 31 G x 8 mm BD Ultra [...] Unsteady gait(Confirmed) Active Uses walker(Confirmed) Active 1iin [id number] the Suboxone program Social History Social History Type Response Smoking Status Current every day smoker; Ty pe: Cigarettes; Other: 10 a day; entered on: 11/25/15 Sex Female
--- OUTSIDE RECORDS SUMMARY | 2022-05-26 16:47 | XMS_ITS | Continuity of Care Document ---
:1970 Author Organization [facility] Address [address] [place] [address]- Care Team Providers Name Role Phone Brooke VEIN PUMPER, Ray Mcleod Primary Care Physician Encounter [facility] [place] Date(s): 04/08/21 - 05/08/21 [facility] [address] [place] [address]- Allergies, Adverse Reactions, Alerts Substance Reaction Severity [...] Recorde d 1Result Comment: [facility] [phone] Comment: [10/01/2015] per [id number] Comment: vis given Medications aspirin 81 mg oral delayed release tablet 81 mg, 1, tablet, By Mouth, Daily, do not crush or chew, # 30 tablet, Refills 11, Tot. Refills 11, Maintenance, 07/30/20 9:01:00 EST, Route to Pharmacy Electronically, [facility], 158, cm, 04/07/20 15:28:00 EST, Height, 161, kg, 06... Start Date: 07/30/20 Status: Orderedatorvastatin 80 mg oral tablet 1 tablet = 80 mg, By Mouth, Daily, # 90 tablet, 1 Refills, Maintenance, 10/08/20 11:38:00 EDT, Tablet, [facility], 158, cm, 10/08/20 11:23:00 EDT, [...] Maintenance, :11:00 EST, Route to Pharmacy Electronically, [facility]/pharmacy #[id number], Resent from 09/02/20, 158, cm, 10/08/20 11:23:00 [...] mL, 5 Refills, Maintenance, 08/26/20 16:38:00 EDT, [facility], 158, cm, 04/07/20 15:28:00 EST, Height, 161, kg, 11/10/19 18:44:0... Start Date: 08/26/20 Status: Orderedhydrochlorothiazide-lisinopril 25 mg-20 mg oral tablet 1 tablet, By Mouth, Daily, # 90 tablet, 0 Refills, Maintenance, 03/08/21 14:32:00 EDT, Tablet, [facility]/pharmacy #[id number], 1 tablet [...] mL, 5 Refills, Maintenance, 03/21/21 19:37:00 EDT, [facility], 158, cm, 10/08/20 11:23:00 EDT, Height, 161, kg, 11/10/19 18:44:00 EDT, Dry Weight Start Date: 03/21/21 Status: Orderedlevothyroxine 0.2 mg oral tablet 1 tablet, By Mouth, Daily, # 90 tablet, 0 Refills, [facility], 158, cm, 10/08/2110:23:00 EDT, Height, 161, kg, 11/10/19 18:44:00 EDT, Dry Weight Start Date: 02/17/21 Status: Orderedloratadine 10 mg oral tablet 1, tablet, By Mouth, Daily, # 90 tablet, Refills 1, Tot. Refills 0, Maintenance, 11/21/20 20:30:00 EDT, Route to Pharmacy Electronically, [facility], 158, cm, 10/08/20 11:23:00 EDT,Height, 161, kg, 11/10/19 18:44:00 EDT, Dry Weight Start Date: 11/21/20 Status: Orderedomeprazole 20 mg oral enteric coated capsule See Instructions, TAKE 1 CAPSULE BY MOUTH EVERY DAY 30 TO 60 MINUTES BEFORE BREAKFAST, # 30 capsule,2 Refills, [facility], 158, cm, 10/08/20 11:23:00 EDT, Height, 161, kg, 11/09/2017:44:00 EDT, Dry Weight Start Date: 04/10/21 Status: OrderedPen [place], 31 G x 8 mm BD Ultra [...] Maintenance, 11/29/2109:15:00 EDT, Route to Pharmacy Electronically, [id number], [facility], 158, cm, 10/08/20 11:23:00 EDT,... [...] Unsteady gait(Confirmed) Active Uses walker(Confirmed) Active 1iin [id number] the Suboxone program Social History Social History Type Response Smoking Status Current every day smoker; Ty pe: Cigarettes; Other: 10 a day; entered on: 11/25/15 Sex Female
--- OUTSIDE RECORDS SUMMARY | 2022-05-26 16:47 | XMS_ITS | Continuity of Care Document ---
:1970 Author Organization [facility] Address [address] [place] [address]- Care Team Providers Name Role Phone Brooke JAVIER, Ray Mcleod Primary Care Physician [place] [facility] [place]s): 07/03/19 - 08/10/19 [facility] [address] [place] [phone] [facility] Attending Physician: Ray Cox [...] 11/22/10 Given 1Result Comment: [facility] [phone] Comment: [10/01/2015] per [id number] Comment: vis given Medications albuterol CFC free 90 mcg/inh inhalation aerosol 2, puffs, Inhalation, Every 4 hours, PRN, # 18 Gm, Refills 0, Tot. Refills 0, Maintenance, 06/10/19 9:01:00 EST, Aerosol, Route to Pharmacy Electronically, [id number], [facility], 165, cm, 06/05/19 13... Start Date: 06/10/19 Stop Date: 07/10/19 Status: Orderedaspirin 81 mg oral delayed release tablet 81 mg, 1, tablet, By Mouth, Daily, do not crush or chew, # 30 tablet, Refills 11, Tot. Refills 11, Maintenance, 08/01/18 12:28:09 EST, Route to Pharmacy Electronically, [id number], [facility] [place] Start Date: 08/01/18 Status: Orderedatorvastatin 80 mg [...] DX UNSTEADY GAIT, LENGTH OF NEED:LIFETIME [address], 08/04/19 15:18:00 EST, Compound Start Date: 08/04/19 [...] 06/10/19 17:33:00 EST, Route to Pharmacy Electronically, [facility] - , 165, cm, 06/05/19 13:45:00 EST, Height Start Date: 06/10/19 Status: OrderedHumalog Kwik Pen 100 units/mL subcutaneous injection See Instructions, inject up to 36 units 3 times daily with meals. for [id number], # 30 mL, 0 Refills, Maintenance, 04/01/19 11:21:31 EDT Start Date: 04/01/19 Status: Orderedhydrochlorothiazide-lisinopril 25 mg-20 mg oral tablet 1 tablet, By Mouth, Daily, # 90 tablet, 3 Refills, Maintenance, 06/05/19 14:24:00 EST, Tablet, [facility], 1 tablet By Mouth Daily, 165, cm, [...] 08/04/19 14:12:00 EST, Route to Pharmacy Electronically, [facility] Start Date: 08/04/19 Stop Date: 01/31/20 Status: OrderedLantus Solostar Pen 100 units/mL subcutaneous solution = 90 units, Subcutaneous Injection, Daily at bedtime, keep appointment on 06/13/19 for further refills, # 15 mL, 2 Refills, Maintenance, 06/05/19 14:21:00 EST, [facility] - , 165, cm, 06/05/19 13:45:00 EST, Height Start Date: 06/05/19 Status: Orderedlevothyroxine 0.2 mg oral tablet 1 tablet = 200 mcg, By Mouth, Daily, Labs and appt. needed for future refills, # 90 tablet, 0 Refills, Maintenance, 06/05/19 14:25:00 EST, Tablet, [facility] - , change in dose, 165, cm, 06/05/19 13:45:00 EST, Height Start Date: 06/05/19 Stop Date: 07/05/19 Status: Orderedloratadine 10 mg oral tablet 10 mg, 1, tablet, By Mouth, Daily, # 90 tablet, Refills 1, Tot. Refills 1, Maintenance, 06/17/19 11:16:00 EST, Route to Pharmacy Electronically, [facility] [place], 165, cm, 06/05/19 13:45:00 EST, Height Start Date: 06/17/19 Stop Date: 12/14/19 Status: Orderedomeprazole 20 mg oral enteric coated capsule 1 capsule = 20 mg, By Mouth, Daily, take 1/2-1 hour before breakfast, # 30 capsule, 6 Refills, Maintenance, 03/21/19 13:55:13 EDT, EC Capsule Start Date: 03/21/19 Status: OrderedPen [place], 31 G x 8 mm BD Ultra [...] Unsteady gait(Confirmed) Active Uses walker(Confirmed) Active 1iin [id number] the Suboxone program Social History Social History Type Response Smoking Status Current every day smoker; Ty pe: Cigarettes; Other: 10 a day; entered on: 11/25/15 Sex Female
--- OUTSIDE RECORDS SUMMARY | 2022-05-26 16:47 | XMS_ITS | Continuity of Care Document ---
:1970 Author Organization [facility] Address [address] [place] [address]- Care Team Providers Name Role Phone Brooke INSPECTOR WREATH, Ray Mcleod Primary Care Physician Encounter [facility] [place] Date(s): 04/29/21 - 05/29/21 [facility] [address] [place] [phone]- Attending Physician: Ananth Herrera Admitting Physician: Ananth [...] inactive(oldterm) 06/21/09 Recorde d 1Result Comment: [facility] [phone] Comment: [10/01/2015] per [id number] Comment: vis given Medications aspirin 81 mg oral delayed release tablet 81 mg, 1, tablet, By Mouth, Daily, do not crush or chew, # 30 tablet, Refills 11, Tot. Refills 11, Maintenance, 07/30/20 9:01:00 EST, Route to Pharmacy Electronically, [facility], 158, cm, 04/07/20 15:28:00 EST, Height, 161, kg, 06... Start Date: 07/30/20 Status: Orderedatorvastatin 80 mg oral tablet 1 tablet, By Mouth, Daily, NEEDS LABS BEFORE NEXT REFILL, # 30 tablet, 0 Refills, Maintenance, 05/13/21 13:25:00 EST, [facility], 158, cm, 04/29/21 11:38:00 EST, [...] EST, Supply Start Date: 07/26/20 Status: OrderedFreeStyle [place] Lite kit FreeStyle [place] Lite kit, See Instructions, # 1 kit, [...] :11:00 EST, Route to Pharmacy Electronically, [facility]/pharmacy #[id number], Resent from 09/02/20, 158, cm, 05/07/21 11:23:00 EDT, Height, 161, kg, 11/10/19 18:44... [...] mL, 5 Refills, Maintenance, 08/26/20 16:38:00 EDT, [facility], 158, cm, 04/07/20 15:28:00 EST, Height, 161, kg, 11/10/19 18:44:0... Start Date: 08/26/20 Status: Orderedhydrochlorothiazide-lisinopril 25 mg-20 mg oral tablet 1 tablet, By Mouth, Daily, # 90 tablet, 0 Refills, Maintenance, 03/08/21 14:32:00 EDT, Tablet, [facility]/pharmacy #[id number], 1 tablet By Mouth Daily,x90 days, [...] 11:48:00 EST, Route to Pharmacy Electronically, [facility]/pharmacy #[id number], 158, cm... Start Date: 05/19/21 Stop Date: 11/15/21 Status: OrderedLantus Solostar Pen 100 units/mL subcutaneous solution See Instructions, Take 54 units twice daily. E11.65, # 45 mL, 5 Refills, Maintenance, 03/21/21 19:37:00 EDT, [facility], 158, cm, 10/08/20 11:23:00 EDT, Height, 161, kg, 11/10/19 18:44:00 EDT, Dry Weight Start Date: 03/21/21 Status: Orderedlevothyroxine 0.2 mg oral tablet 1 tablet, By Mouth, Daily, NEEDS LABS BEFORE NEXT REFILL, # 30 tablet, 0 Refills, Maintenance, 05/13/21 13:24:00 EST, [facility], 158, cm, 04/29/21 11:38:00 EST, Height, 161, kg, 11/10/19 18:44:00 EDT, Dry Weight Start Date: 05/13/21 Stop Date: 06/12/21 Status: Orderedloratadine 10 mg oral tablet 1, tablet, By Mouth, Daily, # 90 tablet, Refills 1, Route to Pharmacy Electronically, [facility], 158, cm, 04/29/21 11:38:00 EST, Height, 161, kg, 11/10/19 18:44:00 EDT, Dry Weight Start Date: 05/13/21 Status: Orderedomeprazole 20 mg oral enteric coated capsule See Instructions, TAKE 1 CAPSULE BY MOUTH EVERY DAY 30 TO 60 MINUTES BEFORE BREAKFAST, # 30 capsule,2 Refills, [facility], 158, cm, 10/08/20 11:23:00 EDT, Height, 161, kg, 11/09/2017:44:00 EDT, Dry Weight Start Date: 04/10/21 Status: OrderedPen [place], 31 G x 8 mm BD Ultra [...] Gm, Refills 5, Route to Pharmacy Electronically, [id number], [facility], 158, cm, 04/29/21 11:38:00 EST, [...] Unsteady gait(Confirmed) Active Uses walker(Confirmed) Active 1iin [id number] the Suboxone program Social History Social History Type Response Smoking Status Current every day smoker; Ty pe: Cigarettes; Other: 10 a day; entered on: 11/25/15 Sex Female
--- OUTSIDE RECORDS SUMMARY | 2022-05-26 16:47 | XMS_ITS | Continuity of Care Document ---
:1970 Author Organization [facility] Address [address] [place] [address]- Care Team Providers Name Role Phone Brooke JAVIER, Ray Mcleod Primary Care Physician [id number] Date(s): 04/29/21 - 05/06/21 [facility] [address] [place] [phone]- Encounter Diagnosis Narcotic dependence (Discharge Diagnosis) - 04/29/21 Severe obesity (Discharge Diagnosis) - 04/29/21 Depression (Discharge Diagnosis) - 04/29/21 Attending Physician: Ray Cox NP Referring Physician: Nam CRUZ, Yenni Allergies, Adverse [...] inactive(oldterm) 06/21/09 Recorde d 1Result Comment: [facility] [phone] Comment: [10/01/2015] per [id number] Comment: vis given Medications aspirin 81 mg oral delayed release tablet 81 mg, 1, tablet, By Mouth, Daily, do not crush or chew, # 30 tablet, Refills 11, Tot. Refills 11, Maintenance, 07/30/20 9:01:00 EST, Route to Pharmacy Electronically, [facility], 158, cm, 04/07/20 15:28:00 EST, Height, 161, kg, 06... Start Date: 07/30/20 Status: Orderedatorvastatin 80 mg oral tablet 1 tablet = 80 mg, By Mouth, Daily, # 90 tablet, 1 Refills, Maintenance, 10/08/20 11:38:00 EDT, Tablet, [facility], 158, cm, 10/08/20 11:23:00 EDT, Height, [...] Maintenance, :11:00 EST, Route to Pharmacy Electronically, [facility]/pharmacy #[id number], Resent from 09/02/20, 158, cm, 10/08/20 11:23:00 EDT, Height, 161, kg, 11/10/19 18:44... Start Date: 04/11/21 Status: OrderedHEAVY DUTY WHEELCHAIR WITH FOOT REST HEAVY DUTY WHEELCHAIR WITH FOOT REST, See Instructions, # 1 each, Refills 0, Tot. Refills 0, Maintenance, DX UNSTEADY GAIT (R26.81) JANE: LIFETIME (99), 08/24/20 13:09:00 EDT, Compound Start Date: 08/24/20 Status: OrderedJeremy Tranik Pen 100 units/mL subcutaneous injection See Instructions, Take 20 units wit breakfast, 15 units with lunch, 20 units with dinner. E11.65, # 30 mL, 5 Refills, Maintenance, 08/26/20 16:38:00 EDT, [facility], 158, cm, 04/07/20 15:28:00 EST, Height, 161, kg, 11/10/19 18:44:0... Start Date: 08/26/20 Status: Orderedhydrochlorothiazide-lisinopril 25 mg-20 mg oral tablet 1 tablet, By Mouth, Daily, # 90 tablet, 0 Refills, Maintenance, 03/08/21 14:32:00 EDT, Tablet, [facility]/pharmacy #[id number], 1 tablet By Mouth Daily,x90 [...] mL, 5 Refills, Maintenance, 03/21/21 19:37:00 EDT, [facility], 158, cm, 10/08/20 11:23:00 EDT, Height, 161, kg, 11/10/19 18:44:00 EDT, Dry Weight Start Date: 03/21/21 Status: Orderedlevothyroxine 0.2 mg oral tablet 1 tablet, By Mouth, Daily, # 90 tablet, 0 Refills, [facility], 158, cm, 10/08/2110:23:00 EDT, Height, 161, kg, 11/10/19 18:44:00 EDT, Dry Weight Start Date: 02/17/21 Status: Orderedloratadine 10 mg oral tablet 1, tablet, By Mouth, Daily, # 90 tablet, Refills 1, Tot. Refills 0, Maintenance, 11/21/20 20:30:00 EDT, Route to Pharmacy Electronically, [facility], 158, cm, 10/08/20 11:23:00 EDT,Height, 161, kg, 11/10/19 18:44:00 EDT, Dry Weight Start Date: 11/21/20 Status: Orderedomeprazole 20 mg oral enteric coated capsule See Instructions, TAKE 1 CAPSULE BY MOUTH EVERY DAY 30 TO 60 MINUTES BEFORE BREAKFAST, # 30 capsule,2 Refills, [facility], 158, cm, 10/08/20 11:23:00 EDT, Height, 161, kg, 11/09/2017:44:00 EDT, Dry Weight Start Date: 04/10/21 Status: OrderedPen [place], 31 G x 8 mm BD Ultra [...] Maintenance, 11/29/2109:15:00 EDT, Route to Pharmacy Electronically, [id number], [facility], 158, cm, 10/08/20 11:23:00 EDT,... [...] Unsteady gait(Confirmed) Active Uses walker(Confirmed) Active 1iin [id number] the Suboxone program Diagnosis Diagnosis Type Effective Dates Health Clinical Infor mant Status Service Narcotic Discharge 04/29/21 dependence Diagnosis Severe obesity Discharge 04/29/21 Diagnosis Depression Discharge 04/29/21 Diagnosis Vital Signs Most recent to oldest [Reference Range]: 1 Height 158 cm (04/29/21 11:38 AM) Weight 143.4 kg (04/29/21 11:38 AM) Body Mass Index [18.5-24.99] 57.44 *>HHI* (04/29/21 11:38 AM) Weight Obtained Via Patient/family stated (04/29/21 11:38 AM) Social History Social History Type Response Smoking Status Current every day smoker; Ty pe: Cigarettes; Other: 10 a day; entered on: 11/25/15 Sex Female
--- OUTSIDE RECORDS SUMMARY | 2022-05-26 16:47 | XMS_ITS | Continuity of Care Document ---
:1970 Author Organization [facility] Address [address] [place] [address]- Care Team Providers Name Role Phone Ray Cox NP Primary Care Physician Encounter [facility] [place] Date(s): 04/14/20 - 05/21/20 [facility] [address] [place] [address]- Attending Physician: Not on Staff, Attending MD [...] Given 1Result Comment: [facility] [phone] Comment: [10/01/2015] per [id number] Comment: vis given Medications albuterol CFC free 90 mcg/inh inhalation aerosol 2, puffs, Inhalation, Every 4 hours, PRN, # 18 Gm, Refills 5, Tot. Refills 5, Maintenance, 01/13/20 11:29:00 EDT, Aerosol, Route to Pharmacy Electronically, [id number], [facility], 158, cm, 11/25/19 17:19:... Start Date: 01/13/20 Stop Date: 07/11/20 Status: Orderedaspirin 81 mg oral delayed release tablet 81 mg, 1, tablet, By Mouth, Daily, do not crush or chew, # 30 tablet, Refills 11, Tot. Refills 11, Maintenance, 08/13/19 11:18:00 EDT, Route to Pharmacy Electronically, [facility] -, 165, cm, 06/05/19 13:45:00 EST, Height Start Date: 08/13/19 Status: Orderedatorvastatin 80 mg oral tablet 1 tablet = 80 mg, By Mouth, Daily, # 90 tablet, 4 Refills, Maintenance, 06/05/19 14:25:00 EST, Tablet, [facility] - , 165, cm, 06/05/19 [...] Refills, Soft Stop, 04/07/20 16:10:00 EST, Tablet, [facility], 158, cm, 04/07/20 15:28:00 EST, [...] Maintenance, 01/05/2010:50:00 EDT, Route to Pharmacy Electronically, [facility], 158, cm, 11/25/19 17:19:00 EDT, Height, 161, kg, 11/10/19 18:44:00 EDT... Start Date: 01/06/20 Status: OrderedHumalog Kwik Pen 100 units/mL subcutaneous injection See Instructions, Max daily dose 70 units, take per sliding scale from office 3 times daily with meals. E11.65, # 30 mL, 5 Refills, Maintenance, 10/22/19 15:40:00 EDT, [facility], 165, cm, 06/05/19 13:45:00 EST, Height Start Date: 10/22/19 Status: Orderedhydrochlorothiazide-lisinopril 25 mg-20 mg oral tablet 1 tablet, By Mouth, Daily, # 90 tablet, 3 Refills, Maintenance, 06/05/19 14:24:00 EST, Tablet, [facility], 1 tablet By [...] 01/26/20 15:33:00 EDT, Route to Pharmacy Electronically, [facility] Start Date: 01/26/20 Stop Date: 07/24/20 Status: OrderedLantus Solostar Pen 100 units/mL subcutaneous solution See Instructions, Take 35 units twice daily. E11.65, # 30 mL, 5 Refills, Maintenance, 10/22/19 15:41:00 EDT, [facility], 165, cm, 06/05/19 13:45:00 EST, Height Start Date: 10/22/19 Status: Orderedlevothyroxine 0.2 mg oral tablet 1 tablet = 200 mcg, By Mouth, Daily, # 90 tablet, 1 Refills, Maintenance, 03/02/20 16:38:00 EDT, Tablet, [facility], 158, cm, 11/25/19 17:19:00 EDT, Height, 161, kg, 11/10/19 18:44:00 EDT, Dry Weight Start Date: 03/02/20 Stop Date: 08/29/20 Status: Orderedloratadine 10 mg oral tablet 10 mg, 1, tablet, By Mouth, Daily, # 90 tablet, Refills 1, Tot. Refills 1, Maintenance, 12/09/19 9:24:00 EDT, Route to Pharmacy Electronically, [facility], 158, cm, 11/25/19 17:19:00 EDT, Height, 161, kg, 11/10/19 18:44:00 EDT, Dry... Start Date: 12/09/19 Stop Date: 06/06/20 Status: Orderedomeprazole 20 mg oral enteric coated capsule 1 capsule = 20 mg, By Mouth, Daily, take 1/2-1 hour before breakfast, # 30 capsule, 2 Refills, Maintenance, 04/21/20 10:02:00 EST, EC Capsule, [facility], 158, cm, 04/07/20 15:28:00EST, Height, 161, kg, 11/10/19 18:44:00 EDT, Dry... Start Date: 04/21/20 Status: OrderedPen [place], 31 G x 8 mm BD Ultra [...] Unsteady gait(Confirmed) Active Uses walker(Confirmed) Active 1iin [id number] the Suboxone program Social History Social History Type Response Smoking Status Current every day smoker; Ty pe: Cigarettes; Other: 10 a day; entered on: 11/25/15 Sex Female
--- OUTSIDE RECORDS SUMMARY | 2022-05-26 16:47 | XMS_ITS | Continuity of Care Document ---
:1970 Author Organization [facility] Adult Address [address] [place] [address]- Care Team Providers Name Role Phone Brooke DIRECTOR MULTIPLE SCLEROSIS CENTER, Ray Mcleod Primary Care Physician [place] [facility] 02/19/22 [facility] [address] [place] [id number]- Attending Physician: Not on Staff, Attending MD [...] d 1Result Comment: [facility]: [phone] Comment: [facility] [phone] Comment: [10/01/2015] per [id number] Comment: vis given Medications amLODIPine 5 mg oral tablet TAKE 1 TABLET BY MOUTH EVERY DAY Start Date: 09/15/21 Status: OrderedamLODIPine 5 mg oral tablet 1 tablet = 5 mg, By Mouth, Daily, TAKE 1 TABLET BY MOUTH EVERY DAY, # 90 tablet, 2 Refills, Maintenance, 10/14/21 17:06:00 EDT, Tablet, [facility], Partial fill upon patient requestif the [...] EST, Supply Start Date: 07/26/20 Status: OrderedFreeStyle [place] Lite kit FreeStyle [place] Lite kit, See Instructions, # 1 kit, [...] 1 Refills, Maintenance, 08/31/21 15:46:00 EDT, [facility], 90, 1 tablet By Mouth Daily, [...] FOOD OR MILK, Route to Pharmacy Electronically, [facility] [id number], 158, cm, 10/14/21 14:09:00 EDT, Height Start Date: 11/30/21 Status: OrderedLantus Solostar Pen 100 units/mL subcutaneous solution See Instructions, Take 54 units twice daily. E11.65, # 45 mL, 5 Refills, Maintenance, 03/21/21 19:37:00 EDT, [facility], 158, cm, 10/08/20 11:23:00 EDT, Height, [...] tablet, Refills 1, Route to Pharmacy Electronically, [facility], 158, cm, 10/14/21 14:09:00 EDT, [...] EDT, Supply Start Date: 09/19/21 Status: OrderedPen [place], 31 G x 8 mm BD Ultra [...] Gm, Refills 5, Route to Pharmacy Electronically, [id number], [facility], 158, cm, [...] Unsteady gait(Confirmed) Active Uses walker(Confirmed) Active 1iin [id number] the Suboxone program Social History Social History Type Response Smoking Status 5-9 cigarettes (between 1/4 to 1/2 pack)/day in last 30 days entered on: 08/05/21 Sex Female Care Team PersonnelName: Ray Cox NP Address: [address] [place] [address] [address] [place], [place] [address]
--- OUTSIDE RECORDS SUMMARY | 2022-05-26 16:47 | XMS_ITS | Continuity of Care Document ---
:1970 Author Organization [facility] Address [address] [place] [address]- Care Team Providers Name Role Phone Ray Cox NP Primary Care Physician Encounter [facility] Date(s): 12/24/19 - 02/11/[address] [address]- [facility] Attending Physician: Ivonne Fontaine MD Admitting Physician: [...] Given 1Result Comment: [facility] [phone] Comment: [10/01/2015] per [id number] Comment: vis given Medications albuterol CFC free 90 mcg/inh inhalation aerosol 2, puffs, Inhalation, Every 4 hours, PRN, # 18 Gm, Refills 5, Tot. Refills 5, Maintenance, 01/13/20 11:29:00 EDT, Aerosol, Route to Pharmacy Electronically, [id number], [facility], 158, cm, 11/25/19 17:19:... Start Date: 01/13/20 Stop Date: 07/11/20 Status: Orderedaspirin 81 mg oral delayed release tablet 81 mg, 1, tablet, By Mouth, Daily, do not crush or chew, # 30 tablet, Refills 11, Tot. Refills 11, Maintenance, 08/13/19 11:18:00 EDT, Route to Pharmacy Electronically, [facility] -, 165, cm, 06/05/19 13:45:00 EST, Height Start Date: 08/13/19 Status: Orderedatorvastatin 80 mg oral tablet 1 tablet = 80 mg, By Mouth, Daily, # 90 tablet, 4 Refills, Maintenance, 06/05/19 14:25:00 EST, Tablet, [facility] - , 165, cm, 06/05/19 13:45:00 EST, Height Start Date: 06/05/19 Status: OrderedBARIATRIC WHEELCHAIR BARIATRIC WHEELCHAIR, See Instructions, # 1 each, Refills 0, Tot. Refills 0, Maintenance, WITH FOOT RESTS. DX UNSTEADY GAIT, LENGTH OF NEED:LIFETIME [address], 08/04/19 15:18:00 EST, Compound Start Date: 08/04/19 [...] Maintenance, 01/05/2010:50:00 EDT, Route to Pharmacy Electronically, [facility], 158, cm, 11/25/19 17:19:00 EDT, Height, 161, kg, 11/10/19 18:44:00 EDT... Start Date: 01/06/20 Status: OrderedHumalog Kwik Pen 100 units/mL subcutaneous injection See Instructions, Max daily dose 70 units, take per sliding scale from office 3 times daily with meals. E11.65, # 30 mL, 5 Refills, Maintenance, 10/22/19 15:40:00 EDT, [facility], 165, cm, 06/05/19 13:45:00 EST, Height Start Date: 10/22/19 Status: Orderedhydrochlorothiazide-lisinopril 25 mg-20 mg oral tablet 1 tablet, By Mouth, Daily, # 90 tablet, 3 Refills, Maintenance, 06/05/19 14:24:00 EST, Tablet, [facility] - [place], 1 tablet By Mouth [...] 01/26/20 15:33:00 EDT, Route to Pharmacy Electronically, [facility] Start Date: 01/26/20 Stop Date: 07/24/20 Status: OrderedLantus Solostar Pen 100 units/mL subcutaneous solution See Instructions, Take 35 units twice daily. E11.65, # 30 mL, 5 Refills, Maintenance, 10/22/19 15:41:00 EDT, [facility], 165, cm, 06/05/19 13:45:00 EST, Height Start Date: 10/22/19 Status: Orderedlevothyroxine 0.2 mg oral tablet 1 tablet = 200 mcg, By Mouth, Daily, Labs needed prior to refills 09/04/2019. See 09/03 msg., # 90 tablet, 1 Refills, Maintenance, 09/04/19 16:38:00 EDT, Tablet, [facility], change in dose, 165, cm, 06/05/19 13:45:00 EST, Height Start Date: 09/04/19 Stop Date: 03/02/20 Status: Orderedloratadine 10 mg oral tablet 10 mg, 1, tablet, By Mouth, Daily, # 90 tablet, Refills 1, Tot. Refills 1, Maintenance, 12/09/19 9:24:00 EDT, Route to Pharmacy Electronically, [facility], 158, cm, 11/25/19 17:19:00 EDT, Height, 161, kg, 11/10/19 18:44:00 EDT, Dry... Start Date: 12/09/19 Stop Date: 06/06/20 Status: Orderedomeprazole 20 mg oral enteric coated capsule 1 capsule = 20 mg, By Mouth, Daily, take 1/2-1 hour before breakfast, # 30 capsule, 2 Refills, Maintenance, 01/06/20 9:48:00 EDT, EC Capsule, [facility], 158, cm, 11/25/19 17:19:00 EDT, Height, 161, kg, 11/10/19 18:44:00 EDT, Dry W... Start Date: 01/06/20 Status: OrderedPen [place], 31 G x 8 mm BD Ultra [...] Unsteady gait(Confirmed) Active Uses walker(Confirmed) Active 1iin [id number] the Suboxone program Social History Social History Type Response Smoking Status Current every day smoker; Ty pe: Cigarettes; Other: 10 a day; entered on: 11/25/15 Sex Female
--- OUTSIDE RECORDS SUMMARY | 2022-05-26 16:47 | XMS_ITS | Continuity of Care Document ---
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, Ray Mcleod Primary Care Physician Encounter [facility] Date(s): 09/15/21 - 10/15/21 [facility] [address] [place] [phone]- Allergies, Adverse Reactions, Alerts Substance Reaction Severity [...] Recorde d 1Result Comment: [facility]: [id number] Comment: [facility] [phone] Comment: [10/01/2015] per [id number] Comment: vis given Medications amLODIPine 5 mg oral tablet TAKE 1 TABLET BY MOUTH EVERY DAY Start Date: 09/15/21 Status: OrderedamLODIPine 5 mg oral tablet 1 tablet = 5 mg, By Mouth, Daily, TAKE 1 TABLET BY MOUTH EVERY DAY, # 90 tablet, 2 Refills, Maintenance, 10/14/21 17:06:00 EDT, Tablet, [facility], Partial fill upon patient requestif the prescription is for a schedule II opioid d... Start Date: 10/14/21 Stop Date: 07/11/22 Status: OrderedAspirin Low Dose 81 mg oral delayed release tablet 1 tablet, By Mouth, Daily, no CRUSH OR CHEW, # 30 tablet, 11 Refills, [facility], 158, cm, 04/29/21 11:38:00 EST, Height, 161, kg, 11/10/19 18:44:00 EDT, Dry Weight Start Date: 07/11/21 Status: Orderedatorvastatin 80 mg oral tablet 1 tablet, By Mouth, Daily, NEEDS LABS BEFORE NEXT REFILL, # 90 tablet, 1 Refills, Maintenance, 06/29/21 7:35:00 EST, [facility], 158, cm, 04/29/21 11:38:00 EST, Height, [...] EST, Supply Start Date: 07/26/20 Status: OrderedFreeStyle [place] Lite kit FreeStyle [place] Lite kit, See Instructions, # 1 kit, [...] 10/14/21 17:05:00 EDT, Route to Pharmacy Electronically, [facility], Par... Start Date: 10/14/21 Stop Date: 11/13/21 Status: Orderedgabapentin 600 mg oral tablet 1 tablet = 600 mg, By Mouth, 3 times a day, # 90 tablet, 5 Refills, Maintenance, 09/01/21 13:44:00 EDT, Tablet, [facility], Partial fill upon patient request if [...] mL, 5 Refills, Maintenance, 08/31/21 13:03:00 EDT, [facility], 158, cm, 08/05/21 13:35:00 EST, Height, [...] tablet, 1 Refills, Maintenance, 08/31/21 15:46:00 EDT, [facility], 90, 1 tablet By Mouth Daily, [...] Route to Pharmacy Electronically, [facility] #[id number], 158, cm... Start Date: 05/19/21 Stop Date: 11/15/21 Status: OrderedLantus Solostar Pen 100 units/mL subcutaneous solution See Instructions, Take 54 units twice daily. E11.65, # 45 mL, 5 Refills, Maintenance, 03/21/21 19:37:00 EDT, [facility], 158, cm, 10/08/20 11:23:00 EDT, Height, 161, kg, 11/10/19 18:44:00 EDT, Dry Weight Start Date: 03/21/21 Status: Orderedlevothyroxine 0.2 mg oral tablet 1 tablet, By Mouth, Daily, # 90 tablet, 1 Refills, Maintenance, 09/27/21 18:47:00 EDT, [facility], 158, cm, 09/15/21 16:09:00 EDT, Height, 161, kg, 11/10/19 18:44:00 EDT, Dry Weight Start Date: 09/27/21 Stop Date: 03/26/22 Status: Orderedloratadine 10 mg oral tablet 1, tablet, By Mouth, Daily, # 90 tablet, Refills 1, Route to Pharmacy Electronically, [facility], 158, cm, 04/29/21 11:38:00 EST, Height, 161, kg, 11/10/19 18:44:00 EDT, Dry Weight Start Date: 05/13/21 Status: Orderedomeprazole 20 mg oral enteric coated capsule 1 capsule = 20 mg, By Mouth, 2 times a day, for 90 days, # 180 capsule, 6 Refills, Physician Stop 04/27/23 14:10:00 EST, 08/05/21 14:10:00 EST, [facility], 158, cm, 08/05/21 13:35:00 EST, Height, 161, kg, 11/10/19 18:44:00 EDT, Dry... Start Date: 08/05/21 Stop Date: 04/27/23 Status: Orderedpadded toilet seat padded toilet seat, See Instructions, # 1 each, Refills 0, Tot. Refills 0, Maintenance, dx: buttock sores, 09/19/21 11:23:00 EDT, Supply Start Date: 09/19/21 Status: OrderedPen [place], 31 G x 8 mm BD Ultra [...] Gm, Refills 5, Route to Pharmacy Electronically, [id number], [facility], 158, cm, 04/29/21 11:38:00 EST, Height, [...] Unsteady gait(Confirmed) Active Uses walker(Confirmed) Active 1iin [id number] the Suboxone program Social History Social History Type Response Smoking Status 5-9 cigarettes (between 1/4 to 1/2 pack)/day in last 30 days entered on: 08/05/21 Sex Female
--- OUTSIDE RECORDS SUMMARY | 2022-05-26 16:47 | XMS_ITS | Continuity of Care Document ---
:1970 Author Organization [facility] Adult Address [address] [place] [address]- Care Team Providers Name Role Phone Brooke JAVIER, Ray Mcleod Primary Care Physician [place] [facility] [place] 11/19/20 - 03/19/21 [facility] [address] [place] [address]- Attending Physician: Ray Cox NP Referring Physician: [...] Recorde d 1Result Comment: [facility] [phone] Comment: [10/01/2015] per [id number] Comment: vis given Medications aspirin 81 mg oral delayed release tablet 81 mg, 1, tablet, By Mouth, Daily, do not crush or chew, # 30 tablet, Refills 11, Tot. Refills 11, Maintenance, 07/30/20 9:01:00 EST, Route to Pharmacy Electronically, [facility], 158, cm, 04/07/20 15:28:00 EST, Height, 161, kg, 06... Start Date: 07/30/20 Status: Orderedatorvastatin 80 mg oral tablet 1 tablet = 80 mg, By Mouth, Daily, # 90 tablet, 1 Refills, Maintenance, 10/08/20 11:38:00 EDT, Tablet, [facility], 158, cm, 10/08/20 11:23:00 EDT, Height, [...] 09/03/2113:19:00 EDT, Route to Pharmacy Electronically, [facility], Resent from 09/02/20, 158, cm, 04/07/20 [...] 5 Refills, Maintenance, 08/26/20 16:38:00 EDT, [facility], 158, cm, 04/07/20 15:28:00 EST, Height, 161, kg, 11/10/19 18:44:0... Start Date: 08/26/20 Status: Orderedhydrochlorothiazide-lisinopril 25 mg-20 mg oral tablet 1 tablet, By Mouth, Daily, # 90 tablet, 0 Refills, Maintenance, 03/08/21 14:32:00 EDT, Tablet, [facility]acy #[id number], 1 tablet By Mouth Daily,x90 days, [...] 5 Refills, Maintenance, 08/26/20 16:38:00 EDT, [facility], 158, cm, 04/07/20 15:28:00 EST, Height, 161, kg, 11/10/19 18:44:00 EDT, Dry Weight Start Date: 08/26/20 Status: Orderedlevothyroxine 0.2 mg oral tablet 1 tablet, By Mouth, Daily, # 90 tablet, 0 Refills, [facility], 158, cm, 10/08/2110:23:00 EDT, Height, 161, kg, 11/10/19 18:44:00 EDT, Dry Weight Start Date: 02/17/21 Status: Orderedloratadine 10 mg oral tablet 1, tablet, By Mouth, Daily, # 90 tablet, Refills 1, Tot. Refills 0, Maintenance, 11/21/20 20:30:00 EDT, Route to Pharmacy Electronically, [facility], 158, cm, 10/08/20 11:23:00 EDT,Height, 161, kg, 11/10/19 18:44:00 EDT, Dry Weight Start Date: 11/21/20 Status: Orderedomeprazole 20 mg oral enteric coated capsule 1 capsule = 20 mg, By Mouth, Daily, take 1/2-1 hour before breakfast, # 30 capsule, 5 Refills, Maintenance, 10/19/20 11:46:00 EDT, EC Capsule, [facility], 158, cm, 10/08/20 11:23:00EDT, Height, 161, kg, 11/10/19 18:44:00 EDT, Dry... Start Date: 10/19/20 Status: OrderedPen [place], 31 G x 8 mm BD Ultra [...] Maintenance, 11/29/2109:15:00 EDT, Route to Pharmacy Electronically, [id number], [facility], 158, cm, 10/08/20 11:23:00 EDT,... Start [...] Unsteady gait(Confirmed) Active Uses walker(Confirmed) Active 1iin [id number] the Suboxone program Social History Social History Type Response Smoking Status Current every day smoker; Ty pe: Cigarettes; Other: 10 a day; entered on: 11/25/15 Sex Female
--- OUTSIDE RECORDS SUMMARY | 2022-05-26 16:47 | XMS_ITS | Continuity of Care Document ---
:1970 Author Organization [facility] Address [address] [place] [address]- Care Team Providers Name Role Phone Brooke MEDICAL TRANSCRIPTIONIST, Ray Mcleod Primary Care Physician Encounter [facility] Date(s): 11/08/20 - 12/08/20 [facility] [address] [place] [id number] Attending Physician: AdmAnanth peterson Admitting Physician: AdmtrAnanth Referring Physician: [id number] Allergies, Adverse Reactions, Alerts Substance Reaction Severity [...] 23-valent vaccine3 11/22/10 Given 1Result Comment: [facility] [phone] Comment: [10/01/2015] per [id number] Comment: vis given Medications aspirin 81 mg oral delayed release tablet 81 mg, 1, tablet, By Mouth, Daily, do not crush or chew, # 30 tablet, Refills 11, Tot. Refills 11, Maintenance, 07/30/20 9:01:00 EST, Route to Pharmacy Electronically, [facility], 158, cm, 04/07/20 15:28:00 EST, Height, 161, kg, 06... Start Date: 07/30/20 Status: Orderedatorvastatin 80 mg oral tablet 1 tablet = 80 mg, By Mouth, Daily, # 90 tablet, 1 Refills, Maintenance, 10/08/20 11:38:00 EDT, Tablet, [facility], 158, cm, 10/08/20 11:23:00 EDT, [...] Maintenance, 09/03/2113:19:00 EDT, Route to Pharmacy Electronically, [facility], Resent from 09/02/20, 158, cm, [...] mL, 5 Refills, Maintenance, 08/26/20 16:38:00 EDT, [facility], 158, cm, 04/07/20 15:28:00 EST, Height, 161, kg, 11/10/19 18:44:0... Start Date: 08/26/20 Status: Orderedhydrochlorothiazide-lisinopril 25 mg-20 mg oral tablet 1 tablet, By Mouth, Daily, # 90 tablet, 0 Refills, Maintenance, 12/08/20 9:05:00 EDT, Tablet, [facility]/pharmacy #[id number], 1 tablet By Mouth Daily,x90 [...] 09/03/20 15:34:00 EDT, Route to Pharmacy Electronically, [facility]... Start Date: 09/03/20 Stop Date: 03/02/21 Status: OrderedLantus Solostar Pen 100 units/mL subcutaneous solution See Instructions, Take 45 units twice daily. E11.65, # 30 mL, 5 Refills, Maintenance, 08/26/20 16:38:00 EDT, [facility], 158, cm, 04/07/20 15:28:00 EST, Height, 161, kg, 11/10/19 18:44:00 EDT, Dry Weight Start Date: 08/26/20 Status: Orderedlevothyroxine 0.2 mg oral tablet 1 tablet = 200 mcg, By Mouth, Daily, # 90 tablet, 1 Refills, Maintenance, 09/02/20 8:56:00 EDT, Tablet, [facility], 158, cm, 04/07/20 15:28:00 EST, Height, 161, kg, 11/10/19 18:44:00 EDT, Dry Weight Start Date: 09/02/20 Stop Date: 03/01/21 Status: Orderedloratadine 10 mg oral tablet 1, tablet, By Mouth, Daily, # 90 tablet, Refills 1, Tot. Refills 0, Maintenance, 11/21/20 20:30:00 EDT, Route to Pharmacy Electronically, [facility], 158, cm, 10/08/20 11:23:00 EDT,Height, 161, kg, 11/10/19 18:44:00 EDT, Dry Weight Start Date: 11/21/20 Status: Orderedomeprazole 20 mg oral enteric coated capsule 1 capsule = 20 mg, By Mouth, Daily, take 1/2-1 hour before breakfast, # 30 capsule, 5 Refills, Maintenance, 10/19/20 11:46:00 EDT, EC Capsule, [facility], 158, cm, 10/08/20 11:23:00EDT, Height, 161, kg, 11/10/19 18:44:00 EDT, Dry... Start Date: 10/19/20 Status: OrderedPen [place], 31 G x 8 mm BD Ultra [...] Maintenance, 11/29/2109:15:00 EDT, Route to Pharmacy Electronically, [id number], [facility], 158, cm, 10/08/20 11:23:00 EDT,... Start [...] Unsteady gait(Confirmed) Active Uses walker(Confirmed) Active 1iin [id number] the Suboxone program Social History Social History Type Response Smoking Status Current every day smoker; Ty pe: Cigarettes; Other: 10 a day; entered on: 11/25/15 Sex Female
[2022-05-26 17:02] LABS: Bacteria Urine 4+ (None Seen); RBC Urine >20 /HPF (0-2); UACC Culture Trigger YES; WBC Urine >50 /HPF (0-5)
[2022-05-26 17:23] LABS: Amphetamine Screen Urine Not Detected (Not Detect); Barbiturates, Urine Not Detected (Not Detect); Benzodiazepines Screen Urine Not Detected (Not Detect); Cannabinoid Screen Urine Not Detected (Not Detect); Cocaine Screen Urine Not Detected (Not Detect); Fentanyl, urine POSITIVE (Not Detect); Opiate Screen Urine Not Detected (Not Detect); Phencyclidine Screen Urine Not Detected (Not Detect)
[2022-05-26 17:31] LABS: MANUAL DIFF FLAG NO
[2022-05-26 17:40] LABS: Basophils Absolute Auto 0.1 X10*3/uL (0.0-0.2); Basophils Percent Auto 0.8 % (0-2); Eosinophils Percent Auto 0.4 % (0-4); Hematocrit 26.6 % (37.0-47.0); Hemoglobin 7.7 g/dl (12.0-16.0); Imm Gran Pct Auto 1.4 % (0.0-0.4); Lymphocytes Absolute Auto 2.2 X10*3/uL (1.2-4.9); Lymphocytes Percent Auto 31.5 % (20-40); Mean Corpuscular HGB Conc 28.9 g/dl (31.0-35.0); Mean Corpuscular Hemoglobin 25.2 pg (27.0-33.0); Mean Corpuscular Volume 87.2 fL (80.0-98.0); Mean Platelet Volume 9.4 fL (9.4-12.3); Monocytes Absolute Auto 0.9 X10*3/uL (0.1-1.2); Monocytes Percent Auto 12.3 % (2-11); Neutrophils Absolute Auto 3.8 x10*3/uL (2.0-8.3); Neutrophils Percent Auto 53.6 % (45-73); Platelet Count 249 X10*3/uL (160-400); Red Blood Count 3.05 X10*6/uL (4.20-5.50); Red Cell Distribution Width 19.9 % (11.0-16.0); White Blood Count 7.1 X10*3/uL (4.8-10.8)
[2022-05-26 17:42] LABS: Ammonia 27 umol/L (13-55); INTERNATIONAL NORM RATIO 0.9 (0.9-1.1); Prothrombin Time 10.5 SEC (10.0-13.1)
[2022-05-26 17:44] LABS: D Dimer High Sensitivity 1012 NG/ML
[2022-05-26 17:45] LABS: Lactic Acid 0.6 mmol/L (0.5-2.0)
[2022-05-26 17:49] LABS: Alanine Aminotransferase 10 U/L (0-31); Albumin Level 2.6 g/dL (3.5-5.0); Alkaline Phosphatase 162 U/L (39-117); Anion Gap 10 (12-20); Aspartate Amino Transferase 12 U/L (5-31); Bilirubin Total 0.2 mg/dL (0.0-1.0); Blood Urea Nitrogen 20 mg/dL (9-16); Calcium 8.4 mg/dL (8.4-10.2); Carbon Dioxide 28 mmol/L (22-29); Chloride 109 mmol/L (96-108); Creatinine Clr Calc Pharmacy 79.6; Estimated Glomerular Filt Rate 40; Glucose Random 174 mg/dL (60-115); Potassium 4.6 mmol/L (3.3-5.1); Sodium 142 mmol/L (135-145); Total Protein 6.6 g/dL (6.5-8.0)
[2022-05-26 17:56] LABS: Troponin-I High Sensitivity < 3.5 ng/L (<3.5-17.0)
[2022-05-26 18:13] LABS: Influenza A PCR NEGATIVE (Negative); Influenza B PCR NEGATIVE (Negative); Resp Syncy Virus RNA Qual PCR NEGATIVE (Negative); SARS COV2 PCR INHOUSE NEGATIVE (Negative)
[2022-05-26 18:22] LABS: Ethanol < 10 mg/dL; TSH reflex Free T4 5.12 uIU/mL (0.32-4.0)
[2022-05-26 19:31] VITALS: BP 138/74; PULSE 84; RESP 15; TEMP 36.9; O2SAT 94
[2022-05-26 19:35] VITALS: PULSE 81; RESP 15; O2SAT 95
[2022-05-26 21:45] VITALS: BP 130/72; PULSE 84; RESP 12; TEMP 36.8; O2SAT 95
--- NOTE | 2022-05-26 23:33 | PC.NURSE ---
Pt removed bipap mask and reports not wanting to be on bipap at this time. Respiratory notified and requests for pt to be placed on 2L until respiratory is able to evaluate pt. O2 sat 98% on 2L nc. Pt in no apparent distress. Will continue to monitor.
[2022-05-27 00:11] VITALS: PULSE 88; RESP 12; O2SAT 97
--- NOTE | 2022-05-27 00:12 | PC.NURSE ---
Respiratory at bedside. O2 sat 97% on 2L nc. Pt has been discharged. Pending transportation. Pt aware of plan of care.
[2022-05-27 00:58] VITALS: BP 148/81; PULSE 88; RESP 11; TEMP 36.8; O2SAT 96
--- NOTE | 2022-05-27 02:06 | PC.NURSE ---
Report given to Phoebe Ackerman NP from [facility], [phone], who is accepting pt back to their facility. Pt being transferred via EMS and aware of plan of care.
[2022-06-08 08:51] LABS: Buprenorphine 218; Naloxone 929; Norbuprenorphine >2000
== END 2022-05-27 02:11 | disposition skilled nursing facility (03) ==
PROVIDERS: Emergency Provider Emergency Medicine
DX: N39.0 Urinary tract infection, site not specified (principal); F11.10 Opioid abuse, uncomplicated; R53.83 Other fatigue; Z20.822 Contact with and (suspected) exposure to COVID-19; Z79.899 Other long term (current) drug therapy; Z87.891 Personal history of nicotine dependence
CPT/HCPCS: 0241U; 36415; 71045; 80053; 80307; 80348; 80362; 81001; 81003; 82077; 82140; 82803; 82947; 83605; 84439; 84443; 84484; 85025; 85379; 85610; 87040; 87086; 93005; 94660; 96365; 99285; J0696

== ENCOUNTER → 2022-07-25 13:18 | Outpatient (BNVA) | payer MEDICAID, SELFPAY | PROVIDERS: PCP Pediatrics; Visit Provider Nurse Practitioner Family | DX: R33.9 Retention of urine, unspecified (principal); N39.0 Urinary tract infection, site not specified; Z97.8 Presence of other specified devices | CPT/HCPCS: 99212 ==

== ENCOUNTER 2022-09-07 06:07 | Outpatient (REF) | payer OTHER, SELFPAY ==
--- NOTE | ~2022-09-07 | XR_ITS ---
EXAMINATION: XR KNEE, LEFT CLINICAL INFORMATION: M25.562 - Pain in left knee COMPARISON: Radiographs left knee 11/15/2021. TECHNIQUE: AP and crosstable lateral views of the left knee are obtained for 2 views. FINDINGS: There is tricompartment osteoarthritis greatest medial knee joint compartment and patellofemoral joint. There is mild secondary genu varus. There are osteophytes from the femoral condyles and tibial plateau and patella as well as spurring at the quadriceps insertion. There is trace thickening suprapatellar bursa. No fat fluid level. No fracture or dislocation or destructive process. No erosive changes. The deep infrapatellar recess is preserved. XR/XR knee LT 2V IMPRESSION: -Tricompartment osteoarthritis. Trace suprapatellar effusion.
== END 2022-09-07 06:08 | disposition home or self-care (01) ==
LOC: HO.HOSX 06:07
PROVIDERS: Visit Provider Physician Assistant
DX: M17.12 Unilateral primary osteoarthritis, left knee (principal); M25.561 Pain in right knee; Z79.899 Other long term (current) drug therapy
CPT/HCPCS: 20610; 73560; 99202; J1020